=== PATIENT | female | born 1995 | race Caucasian/White ===

== ENCOUNTER 2023-06-06 10:07 | Outpatient (OUT) | payer BC, SELFPAY ==
--- NOTE | 2023-06-06 10:08 | US_ITS ---
[address] [address] Patient Name: BRADY BARON MRN: [id number] date: 1995 Sex: F Assigned Patient Location: US Current Patient Location: Accession/Order Number: [id number] Exam Date: 06/06/2023 10:09 Report Date: 06/08/2023 07:23 At the request of: CRUZ JOHNSON Procedure: US OB anatomy EXAMINATION: US OB anatomy, US OB cervical length HISTORY: Z34.92 SECOND TRIMESTER COMPARISON: No relevant comparison available. TECHNIQUE: Transabdominal sonographic examination was performed for obstetrical and evaluation. FINDINGS: Number: 1 Heart Rate: 131.1 bpm H.B. /min Amniotic Fluid Volume: Subjectively normal position: Breech presentation, longitudinal lie Placental Location: Anterior, placental edge 2.7 cm from the internal os. Grade 0. Cervix Length: 5.2 cm, closed Normal anatomy: Lateral ventricles, cerebellum, posterior fossa, nose, lips, orbits, four-chamber heart, diaphragm, stomach, kidneys, umbilical cord arteries, three-vessel cord, spine, extremities, LVOT Not visualized :RVOT, abdominal cord insertion, bladder BIOMETRY: BPD: 4.9 cm 20 weeks 6 days , 78% HC: 18.3 cm 20 weeks 5 days, 66% AC: 17.0 cm 22 weeks 0 days, 92% FL: 3.3 cm 20 weeks 2 days, 47% EFW:401.7 grams; 14 ounces, 92% FL/AC: 19.4 FL/BPD: 66.9 HC/AC: 1.1 GESTATIONAL AGE: Age by EDC: 20 weeks 1 days Age by current US: 21 weeks 0 days ELIE by current US: 10/17/2023 ELIE by EDC: 10/23/2023 US/US OB anatomy IMPRESSION: Incomplete visualization as detailed above Low lying placenta *Reference: [employer] Practice Guideline for the performance of Obstetric Ultrasound Examinations, August 23, 2007. Electronically authenticated by: MELANIE CERVANTES Date: 06/08/2023 07:23
--- NOTE | 2023-06-06 10:08 | US_ITS ---
[address] [address] Patient Name: BRADY BARON MRN: [id number] date: 1995 Sex: F Assigned Patient Location: US Current Patient Location: Accession/Order Number: [id number] Exam Date: 06/06/2023 10:09 Report Date: 06/08/2023 07:23 At the request of: CRUZ JOHNSON Procedure: US OB cervical length EXAMINATION: US OB anatomy, US OB cervical length HISTORY: Z34.92 SECOND TRIMESTER COMPARISON: No relevant comparison available. TECHNIQUE: Transabdominal sonographic examination was performed for obstetrical and evaluation. FINDINGS: Number: 1 Heart Rate: 131.1 bpm H.B. /min Amniotic Fluid Volume: Subjectively normal position: Breech presentation, longitudinal lie Placental Location: Anterior, placental edge 2.7 cm from the internal os. Grade 0. Cervix Length: 5.2 cm, closed Normal anatomy: Lateral ventricles, cerebellum, posterior fossa, nose, lips, orbits, four-chamber heart, diaphragm, stomach, kidneys, umbilical cord arteries, three-vessel cord, spine, extremities, LVOT Not visualized :RVOT, abdominal cord insertion, bladder BIOMETRY: BPD: 4.9 cm 20 weeks 6 days , 78% HC: 18.3 cm 20 weeks 5 days, 66% AC: 17.0 cm 22 weeks 0 days, 92% FL: 3.3 cm 20 weeks 2 days, 47% EFW:401.7 grams; 14 ounces, 92% FL/AC: 19.4 FL/BPD: 66.9 HC/AC: 1.1 GESTATIONAL AGE: Age by EDC: 20 weeks 1 days Age by current US: 21 weeks 0 days ELIE by current US: 10/17/2023 ELIE by EDC: 10/23/2023 US/US OB cervical length IMPRESSION: Incomplete visualization as detailed above Low lying placenta *Reference: [employer] Practice Guideline for the performance of Obstetric Ultrasound Examinations, August 23, 2007. Electronically authenticated by: MELANIE CERVANTES Date: 06/08/2023 07:23
== END 2023-06-06 10:08 | disposition home or self-care (01) ==
LOC: US 10:07
PROVIDERS: PCP Family Medicine; Visit Provider Obstetrics & Gynecology
DX: Z34.92 Encounter for supervision of normal pregnancy, unspecified, second trimester (principal)
CPT/HCPCS: 76805; 76817

== ENCOUNTER 2023-07-07 07:03 | Outpatient (OUT) | payer BC, SELFPAY ==
[2023-07-07 08:13] LABS: Basophils Absolute Auto 0.1 10^3/uL (0.0-0.1); Basophils Percent Auto 0.5 % (0.2-2.0); Eosinophils Absolute Auto 0.1 10^3/uL (0.0-0.7); Eosinophils Percent Auto 0.8 % (0.9-7.0); Hematocrit 34.5 % (36.0-48.0); Hemoglobin 11.5 g/dL (12.0-16.0); Immature Granulocytes Abs Auto 0.18 10^3/uL (0.00-0.03); Immature Granulocytes Pct Auto 1.4 % (0.0-0.5); Lymphocytes Absolute Auto 1.5 10^3/uL (1.2-3.8); Lymphocytes Percent Auto 12.1 % (20.5-60.0); Mean Corpuscular HGB Conc 33.3 g/dL (29.9-35.2); Mean Corpuscular Hemoglobin 30.9 pg (26.7-34.0); Mean Corpuscular Volume 92.7 fL (81.0-99.0); Monocytes Absolute Auto 0.9 10^3/uL (0.3-0.8); Monocytes Percent Auto 7.4 % (1.7-12.0); Neutrophils Absolute Auto 9.7 10^3/uL (1.4-6.5); Neutrophils Percent Auto 77.8 % (43.0-75.0); Platelet Count 277 10^3/uL (150-450); Red Blood Count 3.72 10^6/uL (4.20-5.40); Red Cell Distribution Width 12.7 % (11.0-15.0); White Blood Count 12.4 10^3/uL (4.0-11.0)
[2023-07-07 08:23] LABS: Glucose 1 Hour 78 mg/dL
== END 2023-07-07 07:04 | disposition home or self-care (01) ==
LOC: LAB 07:05
PROVIDERS: PCP Family Medicine; Visit Provider Physician Assistant
DX: Z34.92 Encounter for supervision of normal pregnancy, unspecified, second trimester (principal)
CPT/HCPCS: 36415; 82950; 85025

== ENCOUNTER 2023-07-11 09:00 | Outpatient (OUT) | payer BC, SELFPAY ==
--- NOTE | 2023-07-11 09:03 | US_ITS ---
The [address] [address] Patient Name: BRADY BARON MRN: [id number] date: 1995 Sex: F Assigned Patient Location: US Current Patient Location: Accession/Order Number: [id number] Exam Date: 07/11/2023 09:06 Report Date: 07/13/2023 15:40 At the request of: CED FRAGOSO Procedure: US OB incomplete anatomy EXAMINATION: US OB incomplete anatomy HISTORY: ENCOUNTER FOR FOLLOW UP ULTRASOUND OF ANATOMY Z36.2 COMPARISON: Ultrasound OB anatomy 06/06/2023 FINDINGS: Presentation: Cephalic Heart rate: 132 bpm Amniotic fluid: Subjectively normal. Anatomy: Abdominal cord insertion and cardiac outflow tracts without appreciable abnormality. GA: 25 weeks 1 day ELIE: 10/23/2023 US/US OB incomplete anatomy IMPRESSION: 1. Single live intrauterine . 2. Adequate visualization of the abdominal cord insertion and cardiac outflow tracts; no appreciable abnormality. Electronically authenticated by: MORE FARLEY Date: 07/13/2023 15:40
== END 2023-07-11 09:01 | disposition home or self-care (01) ==
LOC: US 09:00
PROVIDERS: PCP Family Medicine; Visit Provider Physician Assistant
DX: Z36.2 Encounter for other antenatal screening follow-up (principal)
CPT/HCPCS: 76815

== ENCOUNTER 2023-08-15 09:50 | Outpatient (OUT) | payer BC, SELFPAY ==
--- NOTE | 2023-08-15 | US_ITS ---
[address] [address] Patient Name: BRADY BARON MRN: [id number] date: 1995 Sex: F Assigned Patient Location: US Current Patient Location: Accession/Order Number: [id number] Exam Date: 08/15/2023 10:00 Report Date: 08/16/2023 02:14 At the request of: CRUZ JOHNSON Procedure: US OB growth EXAMINATION: US OB growth HISTORY: size inconsistent with dates O26.849 COMPARISON: Ultrasound OB anatomy 06/06/2023 FINDINGS: Heart Rate: 147 bpm Number: 1 Position: Cephalic Amniotic Fluid Volume: 14.5 cm; normal range Maximum Vertical Pocket: 4.7 cm BIOMETRY: BPD: 7.9 cm; 31 weeks 6 days; 85% HC: 28.5cm; 31 weeks 2 days; 46% AC: 29.3 cm; 33 weeks 2 days; >97% FL: 6.2 cm cm; 31 weeks 6 days; 82% EFW: 1998 g; >97% FL/AC: 20.96 FL/BPD: 77.62 HC/AC: 0.97 GESTATIONAL AGE: Age by EDC: 30 weeks 1 day ELIE by EDC: 10/23/2023 Age by US: 32 weeks 1 day ELIE by US: 10/09/2023 US/US OB growth IMPRESSION: 1. Single live intrauterine with growth detailed above. 2. Estimated weight is greater than 97th percentile. Electronically authenticated by: MORE FARLEY Date: 08/16/2023 02:14
== END 2023-08-15 09:51 | disposition home or self-care (01) ==
LOC: US 09:50
PROVIDERS: PCP Family Medicine; Visit Provider Obstetrics & Gynecology
DX: O26.843 Uterine size-date discrepancy, third trimester (principal); O36.63X0 Maternal care for excessive fetal growth, third trimester, not applicable or unspecified; Z3A.30 30 weeks gestation of pregnancy
CPT/HCPCS: 76816

== ENCOUNTER 2023-09-02 07:07 | Outpatient (OUT) | payer BC, SELFPAY ==
[2023-09-02 16:13] VITALS: BP 144/84; PULSE 109
--- NOTE | 2023-09-02 16:55 | US_ITS ---
[address] [address] Patient Name: BRADY BARON MRN: [id number] date: 1995 Sex: F Assigned Patient Location: US Current Patient Location: US Accession/Order Number: [id number] Exam Date: 09/02/2023 16:56 Report Date: 09/03/2023 15:58 At the request of: CRUZ JOHNSON Procedure: US OB BPP w non-stress EXAMINATION: US OB BPP w non-stress HISTORY: EXCESSIVE GROWTH 036.60X0 COMPARISON: Ultrasound OB growth 08/15/2023 TECHNIQUE: Ultrasound biophysical profile was performed in the radiology department. BREATHING MOVEMENTS: 2 GROSS BODY MOVEMENTS: 2 TONE: 2 QUALITATIVE AMNIOTIC FLUID VOLUME: 2 PRESENTATION: CEPHALIC HEART RATE: 128.6 bpm bpm. AMNIOTIC FLUID VOLUME: 13.8 cm GESTATIONAL AGE: 32 weeks 5 days CONCLUSION: Total biophysical profile score 8. Electronically authenticated by: MORE FARLEY Date: 09/03/2023 15:58
--- NOTE | 2023-09-02 17:16 | PC.NURSE ---
Discharge home in stable condition
== END 2023-09-02 17:17 | disposition home or self-care (01) ==
LOC: US 07:07 → FBC 16:07
PROVIDERS: PCP Family Medicine; Visit Provider Obstetrics & Gynecology
DX: O36.63X0 Maternal care for excessive fetal growth, third trimester, not applicable or unspecified (principal); Z3A.32 32 weeks gestation of pregnancy
CPT/HCPCS: 59025; 76818

== ENCOUNTER 2023-09-05 08:21 | Outpatient (OUT) | payer BC, SELFPAY ==
[2023-09-05 08:35] VITALS: BP 130/71
== END 2023-09-05 09:43 | disposition home or self-care (01) ==
LOC: FBCO 08:23 → FBC 08:34
PROVIDERS: PCP Family Medicine; Visit Provider Obstetrics & Gynecology Gynecology
DX: O36.60X0 Maternal care for excessive fetal growth, unspecified trimester, not applicable or unspecified (principal); Z3A.00 Weeks of gestation of pregnancy not specified
CPT/HCPCS: 59025

== ENCOUNTER 2023-09-09 07:14 | Outpatient (OUT) | payer BC, SELFPAY ==
--- NOTE | 2023-09-09 | US_ITS ---
[address] [address] Patient Name: BRADY BARON MRN: [id number] date: 1995 Sex: F Assigned Patient Location: [facility] Current Patient Location: Accession/Order Number: [id number] Exam Date: 09/09/2023 16:57 Report Date: 09/10/2023 07:13 At the request of: CRUZ JOHNSON Procedure: US OB BPP w non-stress EXAMINATION: US OB BPP w non-stress HISTORY: EXCESSIVE GROWTH O26.849 COMPARISON: No relevant comparison available. TECHNIQUE: Ultrasound biophysical profile was performed in the radiology department. non-reactive stress testing was performed by nursing staff in the birthing center. FINDINGS: BREATHING MOVEMENTS: 2.0 GROSS BODY MOVEMENTS: 2.0 TONE: 2.0 QUALITATIVE AMNIOTIC FLUID VOLUME: 2.0 PRESENTATION: CEPHALIC HEART RATE: 140.6 bpm H.B./min AMNIOTIC FLUID VOLUME: 14.8 cm cm GESTATIONAL AGE: 33 weeks 5 days CONCLUSION: Total biophysical profile score: 8.0 Electronically authenticated by: MELANIE CERVANTES Date: 09/10/2023 07:13
--- NOTE | 2023-09-09 17:47 | US_ITS ---
The [address] [address] Patient Name: BRADY BARON MRN: [id number] date: 1995 Sex: F Assigned Patient Location: [facility] Current Patient Location: [facility] Accession/Order Number: [id number] Exam Date: 09/09/2023 17:50 Report Date: 09/09/2023 19:03 At the request of: CRUZ JOHNSON Procedure: US OB cervical length EXAM: US PELVIS: OB CERVICAL LENGTH HISTORY: 28 year old G1 female with a 33 week 5 day presents for US evaluation of her cervix. TECHNIQUE: Ultrasound performed of the pelvis using static images with francisco scale, M-mode and color doppler. This exam is performed in the emergency room setting to evaluate viability. As such, it is not protocoled to evaluate anatomy as that should be performed on an outpatient basis at the patient's [facility] office. COMPARISON: None. FINDINGS: heart: 122 bpm. Presentation: Cephalic Cervix: Cervical length: 2.0 cm. With funneling During the initial scan the cervix measured 3.4 cm. However, the cervix started 2 frontal and reached a length of only 2 cm with 1.3 cm with funneling. The cervix then returned to 2.3 cm after a few minutes and during Valsalva the cervix measured 2.7 cm. US/US OB cervical length IMPRESSION: Funneling is seen during the exam with a shortened cervix measuring 2 cm. Findings: Spoke with ERICK Neville at 7:02 pm. She states the the OB is also aware Electronically authenticated by: APURVA MARTINEZ Date: 09/09/2023 19:03
--- NOTE | 2023-09-09 18:13 | PC.NURSE ---
cervical length completed, pt. continues to deny abdominal or back pain, or feeling any tightening
== END 2023-09-09 18:24 | disposition home or self-care (01) ==
LOC: US 07:14 → FBC 16:55
PROVIDERS: PCP Family Medicine; Visit Provider Obstetrics & Gynecology
DX: O26.849 Uterine size-date discrepancy, unspecified trimester (principal); Z3A.33 33 weeks gestation of pregnancy
CPT/HCPCS: 76817; 76818

== ENCOUNTER 2023-09-10 08:30 | Outpatient (OUT) | payer BC, SELFPAY ==
[2023-09-10 11:07] VITALS: BP 125/77; PULSE 83
[2023-09-10] MEDS: BETAMETHASONE ACE/BETAMETHASONE SOD PHOS 30 MG/5 ML 12 MG IM (11:29)
== END 2023-09-10 11:30 | disposition home or self-care (01) ==
LOC: FBCO 08:30 → FBC 11:01
PROVIDERS: PCP Family Medicine; Visit Provider Obstetrics & Gynecology
DX: O36.63X1 Maternal care for excessive fetal growth, third trimester, fetus 1 (principal); O26.843 Uterine size-date discrepancy, third trimester
CPT/HCPCS: 59025; J0702

== ENCOUNTER 2023-09-11 08:00 | Outpatient (OUT) | payer BC, SELFPAY ==
[2023-09-11] MEDS: BETAMETHASONE ACE/BETAMETHASONE SOD PHOS 30 MG/5 ML 12 MG IM (11:44)
== END 2023-09-11 12:00 | disposition home or self-care (01) ==
LOC: FBCO 08:00 → FBC 11:33
PROVIDERS: PCP Family Medicine; Visit Provider Obstetrics & Gynecology
DX: O36.63X1 Maternal care for excessive fetal growth, third trimester, fetus 1 (principal); O26.843 Uterine size-date discrepancy, third trimester
CPT/HCPCS: J0702

== ENCOUNTER 2023-09-12 01:42 | Outpatient (OUT) | payer BC, SELFPAY ==
[2023-09-12 08:11] VITALS: BP 139/79; PULSE 94
== END 2023-09-12 08:37 | disposition home or self-care (01) ==
LOC: FBCO 01:43 → FBC 08:06
PROVIDERS: PCP Family Medicine; Visit Provider Obstetrics & Gynecology
DX: O36.63X0 Maternal care for excessive fetal growth, third trimester, not applicable or unspecified (principal); Z3A.00 Weeks of gestation of pregnancy not specified; O26.843 Uterine size-date discrepancy, third trimester
CPT/HCPCS: 59025

== ENCOUNTER 2023-09-16 07:38 | Outpatient (OUT) | payer BC, SELFPAY ==
--- NOTE | 2023-09-16 | US_ITS ---
[address] [address] Patient Name: BRADY BARON MRN: [id number] date: 1995 Sex: F Assigned Patient Location: [facility] Current Patient Location: Accession/Order Number: [id number] Exam Date: 09/16/2023 17:00 Report Date: 09/17/2023 22:07 At the request of: CRUZ JOHNSON Procedure: US OB BPP w non-stress EXAMINATION: US OB BPP w non-stress HISTORY: EXCESSIVE GROWTH O36.60X0 COMPARISON: Ultrasound OB biophysical 09/09/2023 TECHNIQUE: Ultrasound biophysical profile was performed in the radiology department. BREATHING MOVEMENTS: 2.0 GROSS BODY MOVEMENTS: 2.0 TONE: 2.0 QUALITATIVE AMNIOTIC FLUID VOLUME: 2.0 PRESENTATION: CEPHALIC HEART RATE: 165.6 bpm bpm. AMNIOTIC FLUID VOLUME: 10.9 cm GESTATIONAL AGE: 34 weeks 5 days CONCLUSION: Total biophysical profile score 8.0. Electronically authenticated by: MORE FARLEY Date: 09/17/2023 22:07
--- NOTE | 2023-09-16 | US_ITS ---
[address] [address] Patient Name: BRADY BARON MRN: [id number] date: 1995 Sex: F Assigned Patient Location: [facility] Current Patient Location: Accession/Order Number: [id number] Exam Date: 09/16/2023 17:00 Report Date: 09/17/2023 15:28 At the request of: CRUZ JOHNSON Procedure: US OB growth EXAMINATION: US OB growth HISTORY: EXCESSIVE GROWTH COMPARISON: ULTRASOUND OB GROWTH 08/15/2023 FINDINGS: Heart Rate: 165.6 bpm Number: 1.0 Position: CEPHALIC Amniotic Fluid Volume: 10.9 cm Maximum Vertical Pocket: 4.0 cm BIOMETRY: BPD: 8.9 cm cm; 35 weeks 6 days; 81% HC: 31.8 cmcm; 35 weeks 5 days ; 40% AC: 33.5 cm cm; 37 weeks 3 days; >97% FL: 6.7 cm cm; 34 weeks 4 days; 38% EFW: 2913.9 grams; 88% FL/AC: 20.1 FL/BPD: 75.9 HC/AC: 0.9 GESTATIONAL AGE: Age by EDC: 34 weeks 5 days ELIE by EDC: 10/23/2023 Age by US: 35 weeks 6 days ELIE by US: 10/15/2023 US/US OB growth IMPRESSION: 1. Single live intrauterine with growth detailed above. 2. Abdominal circumference is greater than 97th percentile. Electronically authenticated by: MORE FARLEY Date: 09/17/2023 15:28
[2023-09-16 17:37] VITALS: BP 125/72; PULSE 94
== END 2023-09-16 18:01 | disposition home or self-care (01) ==
LOC: US 07:38 → FBC 16:58
PROVIDERS: PCP Family Medicine; Visit Provider Obstetrics & Gynecology
DX: O26.843 Uterine size-date discrepancy, third trimester (principal); O36.63X0 Maternal care for excessive fetal growth, third trimester, not applicable or unspecified; Z3A.34 34 weeks gestation of pregnancy
CPT/HCPCS: 76816; 76818

== ENCOUNTER 2023-09-19 08:05 | Outpatient (OUT) | payer BC, SELFPAY ==
[2023-09-19 08:19] VITALS: BP 135/62; PULSE 104
== END 2023-09-19 08:50 | disposition home or self-care (01) ==
LOC: FBCO 08:14 → FBC 08:15
PROVIDERS: PCP Family Medicine; Visit Provider Obstetrics & Gynecology
DX: O36.63X0 Maternal care for excessive fetal growth, third trimester, not applicable or unspecified (principal); O26.843 Uterine size-date discrepancy, third trimester; Z3A.00 Weeks of gestation of pregnancy not specified
CPT/HCPCS: 59025

== ENCOUNTER 2023-09-23 08:12 | Outpatient (OUT) | payer BC, SELFPAY ==
--- NOTE | 2023-09-23 17:00 | US_ITS ---
[address] [address] Patient Name: BRADY BARON MRN: [id number] date: 1995 Sex: F Assigned Patient Location: Current Patient Location: [facility] Accession/Order Number: [id number] Exam Date: 09/23/2023 17:00 Report Date: 09/24/2023 17:37 At the request of: CRUZ JOHNSON Procedure: US OB BPP w non-stress EXAMINATION: US OB BPP w non-stress HISTORY: EXCESSIVE GROWTH O26.849 COMPARISON: No relevant comparison available. TECHNIQUE: Ultrasound biophysical profile was performed in the radiology department. FINDINGS: BREATHING MOVEMENTS: 2.0 GROSS BODY MOVEMENTS: 2.0 TONE: 2.0 QUALITATIVE AMNIOTIC FLUID VOLUME: 2.0 PRESENTATION: CEPHALIC HEART RATE: 154.3 bpm H.B./min AMNIOTIC FLUID VOLUME: 8.8 cm cm GESTATIONAL AGE: 35 weeks 5 days CONCLUSION: Total biophysical profile score: 8.0 Electronically authenticated by: MELANIE CERVANTES Date: 09/24/2023 17:37
[2023-09-23 17:34] VITALS: BP 140/83; PULSE 115
--- NOTE | 2023-09-23 18:27 | PC.NURSE ---
1755: Dr Meraz notified of 8.8 DEDRICK and patient instructed to push oral fluids and have repeat DEDRICK 09/24/23
== END 2023-09-23 18:00 | disposition home or self-care (01) ==
LOC: US 08:13 → FBC 17:01
PROVIDERS: PCP Family Medicine; Visit Provider Obstetrics & Gynecology
DX: O36.63X1 Maternal care for excessive fetal growth, third trimester, fetus 1 (principal); O26.843 Uterine size-date discrepancy, third trimester; Z3A.35 35 weeks gestation of pregnancy
CPT/HCPCS: 76818

== ENCOUNTER 2023-09-24 16:00 | Outpatient (OUT) | payer BC, SELFPAY ==
--- NOTE | 2023-09-24 16:17 | US_ITS ---
[address] [address] Patient Name: BRADY BARON MRN: [id number] date: 1995 Sex: F Assigned Patient Location: [facility] Current Patient Location: Accession/Order Number: [id number] Exam Date: 09/24/2023 16:20 Report Date: 09/24/2023 17:42 At the request of: CRUZ JOHNSON Procedure: US OB BPP w non-stress EXAMINATION: US OB BPP w non-stress HISTORY: LGA COMPARISON: No relevant comparison available. TECHNIQUE: Ultrasound biophysical profile was performed in the radiology department. FINDINGS: BREATHING MOVEMENTS: 2.0 GROSS BODY MOVEMENTS: 2.0 TONE: 2.0 QUALITATIVE AMNIOTIC FLUID VOLUME: 2.0 PRESENTATION: CEPHALIC HEART RATE: 134.3 bpm H.B./min AMNIOTIC FLUID VOLUME: 8.0 cm cm GESTATIONAL AGE: 35 weeks 6 days CONCLUSION: Total biophysical profile score: 8.0 Electronically authenticated by: MELANIE CERVANTES Date: 09/24/2023 17:42
[2023-09-24 16:52] VITALS: BP 138/92; PULSE 113
[2023-09-24 17:14] VITALS: BP 134/89; PULSE 110
== END 2023-09-24 16:50 ==
LOC: FBC 16:16 → FBCO 09-25 10:15
PROVIDERS: PCP Family Medicine; Visit Provider Obstetrics & Gynecology
DX: O36.63X0 Maternal care for excessive fetal growth, third trimester, not applicable or unspecified (principal); Z3A.35 35 weeks gestation of pregnancy
CPT/HCPCS: 76818

== ENCOUNTER 2023-09-26 08:00 | Outpatient (OUT) | payer BC, SELFPAY ==
[2023-09-26 08:13] VITALS: BP 137/86; PULSE 103
== END 2023-09-26 08:34 | disposition home or self-care (01) ==
LOC: FBCO 08:05 → FBC 08:09
PROVIDERS: PCP Family Medicine; Visit Provider Obstetrics & Gynecology
DX: O36.63X0 Maternal care for excessive fetal growth, third trimester, not applicable or unspecified (principal); O26.843 Uterine size-date discrepancy, third trimester; Z3A.00 Weeks of gestation of pregnancy not specified
CPT/HCPCS: 59025

== ENCOUNTER 2023-09-28 07:45 | Outpatient (OUT) | payer BC, SELFPAY ==
[2023-09-28 11:21] VITALS: BP 146/82; PULSE 114
--- NOTE | 2023-09-28 11:31 | US_ITS ---
[address] [address] Patient Name: BRADY BARON MRN: [id number] date: 1995 Sex: F Assigned Patient Location: [facility] Current Patient Location: [facility] Accession/Order Number: [id number] Exam Date: 09/28/2023 11:35 Report Date: 09/28/2023 17:12 At the request of: CRUZ JOHNSON Procedure: US OB BPP w non-stress EXAMINATION: US OB BPP w non-stress HISTORY: Low fluid COMPARISON: No relevant comparison available. TECHNIQUE: Ultrasound biophysical profile was performed in the radiology department. FINDINGS: BREATHING MOVEMENTS: 2.0 GROSS BODY MOVEMENTS: 2.0 TONE: 2.0 QUALITATIVE AMNIOTIC FLUID VOLUME: 2.0 PRESENTATION: CEPHALIC HEART RATE: 144.4 bpm H.B./min AMNIOTIC FLUID VOLUME: 10.3 cm cm GESTATIONAL AGE: 36 weeks 3 days CONCLUSION: Total biophysical profile score: 8.0 Electronically authenticated by: MELANIE CERVANTES Date: 09/28/2023 17:12
== END 2023-09-28 12:10 | disposition home or self-care (01) ==
LOC: FBCO 07:45 → FBC 11:01
PROVIDERS: PCP Family Medicine; Visit Provider Obstetrics & Gynecology
DX: O36.63X1 Maternal care for excessive fetal growth, third trimester, fetus 1 (principal); O26.843 Uterine size-date discrepancy, third trimester; Z3A.36 36 weeks gestation of pregnancy
CPT/HCPCS: 76818

== ENCOUNTER 2023-09-29 19:06 | Outpatient (REF) | payer BC, SELFPAY | END 2023-09-29 19:07 | disposition home or self-care (01) | LOC: LAB 19:06 | PROVIDERS: PCP Family Medicine; Visit Provider Obstetrics & Gynecology | DX: Z34.93 Encounter for supervision of normal pregnancy, unspecified, third trimester (principal) | CPT/HCPCS: 87081 ==

== ENCOUNTER 2023-09-30 08:32 | Outpatient (OUT) | payer BC, SELFPAY ==
--- NOTE | 2023-09-30 | US_ITS ---
[address] [address] Patient Name: BRADY BARON MRN: [id number] date: 1995 Sex: F Assigned Patient Location: [facility] [place] [facility]/Order Number: [id number] Exam Date: 09/30/2023 17:00 Report Date: 10/01/2023 22:34 At the request of: CRUZ JOHNSON Procedure: US OB BPP w non-stress EXAMINATION: US OB BPP w non-stress HISTORY: SIZE INCONSISTENT WITH DATES COMPARISON: Ultrasound OB biophysical 09/28/2023 TECHNIQUE: Ultrasound biophysical profile was performed in the radiology department. BREATHING MOVEMENTS: 2.0 GROSS BODY MOVEMENTS: 2.0 TONE: 2.0 QUALITATIVE AMNIOTIC FLUID VOLUME: 2.0 PRESENTATION: CEPHALIC HEART RATE: 127.4 bpm bpm. AMNIOTIC FLUID VOLUME: 15.2 cm GESTATIONAL AGE: 36 weeks 5 days CONCLUSION: Total biophysical profile score 8.0. Electronically authenticated by: MORE FARLEY Date: 10/01/2023 22:34
[2023-09-30 17:33] VITALS: BP 138/84; PULSE 96
== END 2023-09-30 18:05 | disposition home or self-care (01) ==
LOC: US 08:32 → FBC 17:02
PROVIDERS: PCP Family Medicine; Visit Provider Obstetrics & Gynecology
DX: O36.63X1 Maternal care for excessive fetal growth, third trimester, fetus 1 (principal); O26.843 Uterine size-date discrepancy, third trimester; Z3A.36 36 weeks gestation of pregnancy
CPT/HCPCS: 76818

== ENCOUNTER 2023-10-03 08:16 | Outpatient (OUT) | payer BC, SELFPAY ==
[2023-10-03 08:22] VITALS: BP 155/83; PULSE 89
[2023-10-03 08:34] VITALS: BP 135/82; PULSE 88
--- NOTE | 2023-10-03 10:18 | PC.NURSE ---
reactive tracing with bl fhr 140 with mod variability and accels present, ctxs continue irregularly, discussed bp with patient and reviewed signs and symptoms of pre eclampsia
== END 2023-10-03 08:53 | disposition home or self-care (01) ==
LOC: FBCO 08:16 → FBC 08:17
PROVIDERS: PCP Family Medicine; Visit Provider Obstetrics & Gynecology
DX: O36.63X1 Maternal care for excessive fetal growth, third trimester, fetus 1 (principal); O26.843 Uterine size-date discrepancy, third trimester
CPT/HCPCS: 59025

== ENCOUNTER 2023-10-07 18:36 | Inpatient (IN) | payer BC, SELFPAY ==
[2023-10-07] VITALS (11 sets, daily range): BP systolic 133–149; BP diastolic 72–90; PULSE 90–126; RESP 18; TEMP 36.1–36.5
--- NOTE | 2023-10-07 | US_ITS ---
[address] [address] Patient Name: BRADY BARON MRN: [id number] date: 1995 Sex: F Assigned Patient Location: [facility] Current Patient Location: [facility] Accession/Order Number: [id number] Exam Date: 10/07/2023 17:00 Report Date: 10/08/2023 07:15 At the request of: CRUZ JOHNSON Procedure: US OB BPP w non-stress EXAMINATION: US OB BPP w non-stress HISTORY: EXCESSIVE GROWTH O36.60X0 COMPARISON: No relevant comparison available. TECHNIQUE: Ultrasound biophysical profile was performed in the radiology department. non-reactive stress testing was performed by nursing staff in the birthing center. FINDINGS: BREATHING MOVEMENTS: 2.0 GROSS BODY MOVEMENTS: 2.0 TONE: 2.0 QUALITATIVE AMNIOTIC FLUID VOLUME: 2.0 PRESENTATION: CEPHALIC HEART RATE: 139.2 bpm H.B./min AMNIOTIC FLUID VOLUME: 14.7 cm cm GESTATIONAL AGE: 37 weeks 5 days CONCLUSION: Total biophysical profile score: 8.0 Electronically authenticated by: MELANIE CERVANTES Date: 10/08/2023 07:15
--- NOTE | 2023-10-07 18:50 | PC.NURSE ---
1735: Dr Meraz paged 1742: BP's reported, patient denies headache, blurred vision and epigastric pain. Orders received for admission and IOL tonight. Patient informed and transferred to room 256 at 1810. Plan of care discussed and questions answered. Talking with about plan of care. 1845: resting in bed and waiting on . 1904: Report to Jermain SUAREZ, Renzo SUAREZ, Ata Montilla RN.1914: Care relinquished
[2023-10-07 20:33] LABS: Amphetamine Screen Urine NEGATIVE (NEGATIVE); Barbiturates Screen Urine NEGATIVE (NEGATIVE); Benzodiazepines Screen Urine NEGATIVE (NEGATIVE); Buprenorphine Screen Urine NEGATIVE (NEGATIVE); Cannabinoid Screen Urine NEGATIVE (NEGATIVE); Cocaine Screen Urine NEGATIVE (NEGATIVE); Methadone Screen Urine NEGATIVE (NEGATIVE); Methamphetamines Screen Urine NEGATIVE (NEGATIVE); Opiate Screen Urine NEGATIVE (NEGATIVE); Oxycodone Screen Urine NEGATIVE (NEGATIVE); Phencyclidine Screen Urine NEGATIVE (NEGATIVE); Tricyclic Antidepressant Urine NEGATIVE (NEGATIVE)
[2023-10-07] MEDS: 0.9 % SODIUM CHLORIDE 1,000 ML 125 ML IV (23:17)
[2023-10-07] MEDS: OXYTOCIN/0.9 % SODIUM CHLORIDE 10 UNITS/500 ML PLAST..BAG 6 UNIT IV (23:18)
[2023-10-07 23:22] LABS: Hematocrit 33.2 % (36.0-48.0); Hemoglobin 10.9 g/dL (12.0-16.0); Mean Corpuscular HGB Conc 32.8 g/dL (29.9-35.2); Mean Corpuscular Hemoglobin 29.2 pg (26.7-34.0); Mean Platelet Volume 9.8 fL (9.5-13.5); Platelet Count 283 10^3/uL (150-450); Red Blood Count 3.73 10^6/uL (4.20-5.40); Red Cell Distribution Width 13.3 % (11.0-15.0); White Blood Count 11.2 10^3/uL (4.0-11.0)
[2023-10-08] VITALS (57 sets, daily range): BP systolic 109–162; BP diastolic 56–91; PULSE 68–100; RESP 16–18; TEMP 36–37.3
[2023-10-08] MEDS: 0.9 % SODIUM CHLORIDE 1,000 ML 125 ML IV (06:55)
[2023-10-08] MEDS: LIDOCAINE HCL 1% 200 MG/20 ML MDV INJ (10:23)
[2023-10-08] MEDS: OXYTOCIN/0.9 % SODIUM CHLORIDE 20 UNITS/1,000 ML PLAST..BAG 125 UNIT IV (10:30)
--- NOTE | 2023-10-08 10:50 | PM.OBPRCVD ---
Procedure Induction method: per pitocin protocol Delivery augmentation: rupture of membranes and pitocin Delivery monitor: external FHT and external uterine Route of delivery: Episiotomy Description: midline Laceration description: perineal - 2nd degree Delivery repair: Vicryl Estimated blood loss (mL): 250 Anesthesia type: None Disposition: floor Delivery date: 10/08/23 Gender: male presentation: vertex Placental delivery description: Spontaneous cord description: 3 Vessels
[2023-10-08] MEDS: BENZOCAINE/MENTHOL 85 GRAM SPRAY BOTTLE 1 APPLIC TOPICAL (12:56)
[2023-10-08] MEDS: GLYCERIN/WITCH HAZEL PADS 1 PAD TOPICAL (12:56)
[2023-10-08] MEDS: IBUPROFEN 600 MG TABLET PO ×2 (14:05→20:02)
[2023-10-08] MEDS: ACETAMINOPHEN 325 MG TABLET 650 MG PO (22:36)
[2023-10-09 01:10] VITALS: RESP 16
[2023-10-09 01:11] VITALS: BP 132/80; PULSE 84
[2023-10-09] MEDS: IBUPROFEN 600 MG TABLET PO ×3 (02:03→15:56)
[2023-10-09 05:55] LABS: Basophils Percent Auto 0.3 % (0.2-2.0); Eosinophils Absolute Auto 0.1 10^3/uL (0.0-0.7); Eosinophils Percent Auto 0.7 % (0.9-7.0); Hematocrit 26.8 % (36.0-48.0); Hemoglobin 8.8 g/dL (12.0-16.0); Immature Granulocytes Abs Auto 0.14 10^3/uL (0.00-0.03); Immature Granulocytes Pct Auto 1.1 % (0.0-0.5); Lymphocytes Absolute Auto 1.9 10^3/uL (1.2-3.8); Lymphocytes Percent Auto 14.3 % (20.5-60.0); Mean Corpuscular HGB Conc 32.8 g/dL (29.9-35.2); Mean Corpuscular Hemoglobin 29.1 pg (26.7-34.0); Mean Corpuscular Volume 88.7 fL (81.0-99.0); Mean Platelet Volume 9.7 fL (9.5-13.5); Monocytes Absolute Auto 0.9 10^3/uL (0.3-0.8); Monocytes Percent Auto 7.2 % (1.7-12.0); Neutrophils Percent Auto 76.4 % (43.0-75.0); Platelet Count 211 10^3/uL (150-450); Red Blood Count 3.02 10^6/uL (4.20-5.40); Red Cell Distribution Width 13.9 % (11.0-15.0); White Blood Count 13.1 10^3/uL (4.0-11.0)
--- NOTE | 2023-10-09 07:28 | W.PC.ACHO ---
Registration Status: ADM IN Primary Language: Guyanese Preferred Language: Guyanese Active Medications Generic Name Dose Route Start Last Admin Trade Name Sarita PRN Reason Stop Dose Admin Acetaminophen 650 mg 10/08/23 10:47 10/08/23 22:36 Acetaminophen 325 Mg Tablet PO 650 mg Q6H PRN Administration Mild Pain Al Hydroxide/Mg Hydroxide 2,400 mg 10/08/23 10:47 Magnesium Hydroxide 2,400 Mg/10 Ml Oral.Susp PO Q6H PRN Dyspepsia Benzocaine/Menthol 1 applic 10/08/23 10:47 10/08/23 12:56 Benzocaine/Menthol 85 Gram [place] Bottle TOPICAL 1 applic Q2H PRN Administration Pain Carboprost Tromethamine 250 mcg 10/07/23 18:37 Carboprost Tromethamine 250 Mcg/Ml 1 Ml Vial IM 10/09/23 11:00 Q15M PRN Bleeding Diphtheria/Pertussis/Tetanus Vacc 0.5 ml 10/10/23 09:00 Adacel Diph,Pertuss(Acell),Tet Vac/Pf 0.5 Ml Adult Syringe IM 10/10/23 09:01 .ONCE ONE Docusate Sodium 100 mg 10/09/23 09:00 Docusate Sodium 100 Mg Capsule PO BID HAYDEN Sodium Chloride 1,000 mls @ 125 mls/hr 10/07/23 18:45 10/08/23 06:55 Sodium Chloride 0.9% 1,000 Ml IV 125 mls/hr .Q8H HAYDEN Administration Ibuprofen 600 mg 10/08/23 10:47 10/09/23 02:03 Ibuprofen 600 Mg Tablet PO 600 mg Q6H PRN Administration Moderate Pain Measles/Mumps/Rubella Vaccine Live 0.5 ml 10/10/23 09:00 Measles,Mumps,Rubella Vacc/Pf 0.5 Ml Vial SQ 10/10/23 09:01 .ONCE ONE Methylergonovine Maleate 0.2 mg 10/07/23 18:37 Methylergonovine Maleate 0.2 Mg/Ml Ampule IM 10/09/23 11:00 ONCE PRN Uterine Contractility/Contract Methylergonovine Maleate 0.2 mg 10/07/23 18:37 Methylergonovine Maleate 0.2 Mg Tablet PO 10/09/23 11:00 Q4H PRN Uterine Contractility/Contract Misoprostol 600 mcg 10/07/23 18:37 Misoprostol 100 Mcg Tablet PO 10/09/23 11:00 ONCE PRN Uterine Bleeding Misoprostol 800 mcg 10/07/23 18:37 Misoprostol 100 Mcg Tablet SL 10/09/23 11:00 ONCE PRN Uterine Bleeding Misoprostol 1,000 mcg 10/07/23 18:37 Misoprostol 100 Mcg Tablet TN 10/09/23 11:00 ONCE PRN Uterine Bleeding Ondansetron HCl 4 mg 10/07/23 18:43 Ondansetron Pf 4 Mg/2 Ml Vial IV Q6H PRN Nausea And Vomiting Senna 17.2 mg 10/08/23 20:00 Sennosides 8.6 Mg Tablet PO QHS PRN Constipation Simethicone 80 mg 10/08/23 10:47 Simethicone 80 Mg Tab.Chew PO QID PRN Abdominal Distention Temazepam 15 mg 10/08/23 10:47 Temazepam 15 Mg Capsule PO QHS PRN Sleep Witch Leslie/Glycerin 1 pad 10/08/23 10:47 10/08/23 12:56 Glycerin/Witch Leslie Pads TOPICAL 1 pad Q2H PRN Administration Pain Diet Category Date Time Status Regular Consistency Diet Diet 10/08/23 10:48 Active Respiratory Oxygen Delivery Method Room Air Oxygen Delivery Method Room Air Oxygen Delivery Method Room Air Cardiology Heart Sounds Strong,Regular Heart Sounds Strong,Regular Heart Sounds Strong Bowels Bowel Pattern No Bowel Movement Bowel Pattern No Bowel Movement Renal Bladder Pattern Continent Bladder Pattern Continent Bladder Pattern Continent
--- NOTE | 2023-10-09 07:44 | PM.OBPN ---
OB - PN: Subj Subjective Patient comments: no complaints and pain well controlled [place] status: doing well Exam Constitutional Vital Signs, click to edit/add: Last Vital Signs Temp 98.7 F 10/08/23 20:01 Pulse 84 10/09/23 01:11 Resp 16 10/09/23 01:10 BP 132/80 10/09/23 01:11 O2 Del Method Room Air 10/09/23 01:10 Documenting provider has reviewed patient's vital signs: yes Common normals: no apparent distress Respiratory Common normals: normal respiratory effort and clear to auscultation bilaterally Cardio Common normals: regular rate and regular rhythm GI Common normals: Normal to inspection, nondistended, normoactive bowel sounds present Extremity Common normals: no calf tenderness Results Labs Labs: Short CBC 10/09/23 Range/Units 05:45 WBC 13.1 H (4.0-11.0) 10^3/uL Hgb 8.8 L (12.0-16.0) g/dL Hct 26.8 L (36.0-48.0) % Plt Count 211 (150-450) 10^3/uL OB - PN: A/P Plan - Vaginal Delivery day: 1 Plan: routine care Time Spent with Patient Time: Total time spent is greater than 50% in coordination of care (as documented) at patient's floor/unit and/or counseling patient: Total time spent with greater than 50% in coordination of care (as documented) at patient's floor/unit and/or counseling patient: less than 15 minutes
[2023-10-09] MEDS: DOCUSATE SODIUM 100 MG CAPSULE PO (08:33)
[2023-10-09 09:51] VITALS: TEMP 35.9
[2023-10-09 09:52] VITALS: BP 141/63; PULSE 93
[2023-10-09 16:38] VITALS: BP 122/74; PULSE 81
--- OUTSIDE RECORDS SUMMARY | 2023-11-10 19:54 | XMS_ITS | CCD ---
Author Name Unknown Address [address] [place] [address] Organization [facility] Care Team Providers Care An/Syq 13 Nav/C2 Operator Name Role Phone Price Girard Unavailable Unavailable Unavailable Essence Blevins Unavailable Unavailable MD Amanda Rosario Attending Provider [phone] MD Sarah Nevarez Referring Provider MD Mike Wagner Primary Care Provider MD Amanda Rosario Attending Provider [phone] MD Sarah Nevarez Referring Provider [phone] MD Mike Wagner Primary Care Provider [phone] ELIZAB[address] ., DR ARROYO Admitting Unavailable ELIZABETH ., DR ARROYO Consulting Unavailable NADERER, DR MIKE Bolaños Primary Care Unavailable ELIZABETH ., DR ARROYO Attending Unavailable ELIZABETH ., DR ARROYO Consulting Unavailable ELIZABETH ., DR ARROYO Attending Unavailable NADERER, DR MIKE Bolaños Primary Care Unavailable ELIZABETH ., DR ARROYO Admitting Unavailable ZIEBER, DR MORE Rodarte Consulting Unavailable REQUEST, DR SWENSON LISTED Consulting Unavaila ble DREW, DR AMANDA Arroyo Admitting Unavailable NADERECayden, DR MIKE Bolaños Primary Care Unavailable DREW, DR AMANDA Arroyo Attending Unavailable NADSHMUEL, DR MIKE Bolaños Primary Care Unavailable NADERER, DR MIKE Bolaños Consulting Unavailable NADERER, DR MIKE Bolaños Attending Unavailable NADERER, DR IMKE Bolaños Admitting Unavailable ELIZABETH ., DR ARROYO Attending Unavailable ELIZABETH ., DR ARROYO Admitting Unavailable ELIZABETH ., DR ARROYO Consulting Unavailable NADERER, DR MIKE Bolaños Primary Care Unavailable ELIZABETH ., DR ARROYO Consulting Unavailable ELIZABETH ., DR ARROYO Attending Unavailable NADERER, DR MIKE Bolaños Primary Care Unavailable ELIZABETH ., DR ARROYO Admitting Unavailable ELIZABETH ., DR ARROYO Consulting Unavailable ELIZABETH ., DR ARROYO Attending Unavailable ELIZABETH ., DR ARROYO Admitting Unavailable NADERER, DR MIKE Bolaños Primary Care Unavailable ELIZABETH ., DR ARROYO Consulting Unavailable ELIZABETH ., DR ARROYO Attending Unavailable NADERER, DR MIKE Bolaños Primary Care Unavailable ELIZABETH ., DR ARROYO Admitting Unavailable ELIZABETH ., DR ARRYOO Consulting Unavailable ELIZABETH ., DR ARROYO Attending Unavailable NADERER, DR MIKE Bolaños Primary Care Unavailable ELIZABETH ., DR ARROYO Admitting Unavailable ELIZABETH ., DR ARROYO Consulting Unavailable NADERER, DR MIKE Bolaños Primary Care Unavailable ELIZABETH ., DR ARROYO Attending Unavailable ELIZABETH ., DR ARROYO Admitting Unavailable MD Amanda Rosario Attending Provider MD Sarah Nevarez Referring Provider MD Mike Wagner Primary Care Provider Sarah Nevarez Referring Unavailable Amanda Rosario Attending Unavailable Amanda Rosario Admitting Unavailable Mike Wagner Primary Care Unavailable CRUZ JOHNSON Attending Unavailable Allergies Allergy Classification Reported Allergen(s) Allergy Type Date of Onset Reaction(s) Facility (1 source) No Alert Propensity to adverse reactions to drug 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 Medications Current Medications Medication Drug Class(es) Dates Sig (Normalized) Sig (Original) ALPRAZolam 0.25 mg oral tablet (4 sources) Benzodiazepine Start: 06-18-2021 take 1 tablet by mouth once daily Alprazolam (Xanax) 0.25 mg Tablet Active 0.25 MG PO Daily June 18, 2021 12:00am Magnesium (1 source) Start: 08-19-2023 take 400 mg by mouth once daily Magnesium Active 400 MG PO Daily August 19, 2023 12:00am Igb-Aqay-Au-Harriet 3-Fat Com #1 (Pre-Jeanette Multivitamins/[place] als) 27-1-300 mg Capsule (3 sources) Start: 01-21-2023 Viw-Degh-Zs-Harriet 3-Fat Com #1 (Pre-Jeanette Multivitamins/[place]) 27-1-300 mg Capsule Active CAP PO January 21, 2023 1:00am Start: 01-21-2023 For-Raip-Ga-Om ega 3-Fat Com #1 (Pre-Jeanette Multivitamins/Minerals) 27-1-300 mg Capsule Active CAP PO January 21, 2023 12:00am Completed/Discontinued Medications Medication Drug Class(es) Dates Sig (Normalized) Sig (Original) ciprofloxacin 500 mg oral tablet (4 sources) Quinolone Antimicrobial Start: 07-23-2021 End: 10-03-2021 take 1 tablet by mouth twice daily Ciprofloxacin Hcl (Cipro) 500 mg Tablet Discontinued 500 MG PO Twice daily July 23, 2021 12:00am October 03, 2021 9:30am famotidine 20 mg oral tablet (4 sources) Histamine-2 Receptor Antagonist Start: 06-18-2021 End: 06-24-2021 take 20 mg by mouth once daily at bedtime Famotidine Discontinued 20 MG PO Daily at bedtime June 18, 2021 12:00am June 24, 2021 2:04pm Multivitamin (Multiple Vitamin) Tablet (4 sources) Start: 06-18-2021 End: 01-21-2023 take 1 tablet by mouth once daily Multivitamin (Multiple Vitamin) Tablet Discontinued 1 TAB PO Daily June 18, 2021 12:00am January 21, 2023 3:56pm Start: 06-18-2021 End: 01-21-2023 take 1 tablet by mouth once daily Multivitamin (Multiple Vitamin) Tablet Discontinued 1 TAB PO Daily June 17, 2021 11:00pm January 21, 2023 2:56pm Start: 06-18-2021 take 1 tablet by luther th once daily Multivitamin (Multiple Vitamin) Tablet Active 1 TAB PO Daily June 18, 2021 12:00am omeprazole 40 mg delayed release oral capsule (4 sources) Proton Pump Inhibitor Start: 06-18-2021 End: 06-24-2021 take 40 mg by mouth once daily Omeprazole Discontinued 40 MG PO Daily June 18, 2021 12:00am June 24, 2021 2:04pm sulfamethoxazole 800 mg / trimethoprim 160 mg oral tablet (5 sources) Dihydrofolate Reductase Inhibitor Antibacterial, Sulfonamide Antimicrobial Start: 06-13-2021 take 1 tablet by mouth twice daily Sulfamethoxazole- Trimethoprim 800-160 MG Oral Tablet Take 1 tablet twice daily Quantity: 14 Refills: 0 Ordered: 13-Jun-2021 Oscar Worthington MPH Start : 13-Jun-2021 Active Problems Active Problems Problem Classification Problem Date Documented Date Episodic/Chronic Administrative/social admission (4 sources) Problems related to multiparity; Translations: [PROBLEMS RELATED TO MULTIPARITY] Onset: 01-30-2023 Episodic Deficiency and other anemia (4 sources) Iron deficiency anemia; Translations: [Iron deficiency anemia, unspecified] 04-03-2022 Episodic Deficiency and other anemia (3 sources) Iron deficiency anemia, unspecified; Translations: [Iron deficiency anemia, unspecified] 07-08-2022 Episodic Immunizations and screening for infectious disease (2 sources) Encounter for screening for human papillomavirus (HPV); Translations: [Encounter for screening for infections with a predominantly sexual mode of transmission] Onset: 06-17-2022 Episodic Maintenance chemotherapy; radiotherapy (7 sources) Patient encounter status; Translations: [Encounter for antineoplastic immunotherapy] 07-19-2021 Chronic Melanomas of skin (11 sources) Malignant melanoma of lower leg; Translations: [Malignant melanoma of skin of lower limb, including hip] 07-19-2021 Chronic Menstrual disorders (7 sources) Irregular menstruation, unspecified; Translations: [Amenorrhea, unspecified] Onset: 02-27-2023 Chronic Other nervous system disorders (4 sources) Chiari malformation type I; Translations: [Compression of brain] 07-19-2021 Chronic Other nervous system disorders (3 sources) Compression of brain; 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 Other and delivery including normal (2 sources) Encounter for supervision of normal , unspecified, first trimester; Translations: [Second trimester ] Onset: 03-25-2023 05-23-2023 Episodic Other screening for suspected conditions (not mental disorders or infectious disease) (4 sources) Encounter for screening for malignant neoplasm of cervix; Translations: [ENC SCREENING MALIG NEOPLASM CERV] Onset: 01-13-2023 Episodic Residual codes; unclassified (1 source) No current problems or disability; Translations: [Other specified conditions influencing health status] Onset: 06-18-2021 Episodic Residual codes; unclassified (4 sources) Edema of right lower limb; Translations: [Localized edema] 01-15-2022 Episodic Residual codes; unclassified (3 sources) Localized edema; Translations: [Edema] 07-08-2022 Episodic Residual codes; unclassified (1 source) 9 weeks gestation of ; Translations: [9 WEEKS GESTATION OF ] Onset: 03-25-2023 Episodic Skin and subcutaneous tissue infections (4 sources) Cellulitis; Translations: [Cellulitis and abscess of unspecified sites] Episodic Unclassified (1 source) Malignant melanoma of right lower limb, including hip; Translations: [Malignant melanoma of right lower limb, including hip] Onset: 08-19-2023 Past or Other Problems Problem Classification Problem Date Documented Date Episodic/Chronic Other female genital disorders (4 sources) Other specified noninflammatory disorders of vagina; Translations: [OTH SPEC NONINFLAMMATORY D/O VAGINA] Onset: 06-16-2022 Episodic Results Test Name Value Interpretation Reference Range Facil ity Complete Blood Count Auto Di ffon 08-17-2023 Basophils (Bld) [#/Vol] 0.0 10*3/uL Normal 0.0-0.2 [facility] Comment on above: Result Comment: PERF ORMED BY: [facility] [address] [place] [address] PATHOLOGIST MARKET CONSULTANT RUSS DAVIS M.D. Performed By: #### C MP, TSH3, CBC, T4F, T3F ####[place] [address] [place] [id number] [facility] Basophils/100 WBC (Bld) 0.4 % Normal . [facility] Comment on above: Performed By: #### C MP, TSH3, CBC, T4F, T3F ####[facility] [place] [address] [facility] Eosinophils (Bld) [#/Vol] 0.1 10*3/uL Normal 0.0-0.45 [facility] Comment on above: Performed By: #### C MP, TSH3, CBC, T4F, T3F ####[place] [address] [place] [id number] [place] Eosinophils/100 WBC (Bld) 0.6 % Normal . [facility] Comment on above: Performed By: #### C MP, TSH3, CBC, T4F, T3F ####[address] Erythrocyte distribution wid th (RBC) [Ratio] 13.3 % Normal 11.9-15.3 [facility] Comment on above: Performed By: #### C MP, TSH3, CBC, T4F, T3F ####[address] Hematocrit (Bld) [Volume fraction] 34.5 % Normal 34.0-46.4 [facility] Comment on above: Performed By: #### C MP, TSH3, CBC, T4F, T3F ####[address] Hemoglobin (Bld) [Mass/Vol] 11.6 g/dL Low 11.8-15. 4 [facility] Comment on above: Performed By: #### C MP, TSH3, CBC, T4F, T3F ####[address] Lymphocytes (Bld) [#/Vol] 1.2 10*3/uL Normal 1.00-4.8 [facility] Comment on above: Performed By: #### C MP, TSH3, CBC, T4F, T3F ####[address] Lymphocytes/100 WBC (Bld) 12.2 % Normal . [facility] Comment on above: Performed By: #### C MP, TSH3, CBC, T4F, T3F ####[address] MCH (RBC) [Entitic mass] 30.5 pg Normal 24.7-34.3 [facility] Comment on above: Performed By: #### C MP, TSH3, CBC, T4F, T3F ####[address] MCV (RBC) [Entitic vol] 90.4 fL Normal 80-100 [facility] Comment on above: Performed By: #### C MP, TSH3, CBC, T4F, T3F ####[address] Mean Corpuscular HGB Conc 33.8 g/dL Normal 32.0-35.0 [facility] Comment on above: Performed By: #### C MP, TSH3, CBC, T4F, T3F ####[address] Monocytes (Bld) [#/Vol] 0.6 10*3/uL Normal 0.0-0.8 [facility] Comment on above: Performed By: #### C MP, TSH3, CBC, T4F, T3F ####[address] Monocytes/100 WBC (Bld) 6.5 % Normal . [facility] Comment on above: Performed By: #### C MP, TSH3, CBC, T4F, T3F ####[address] Neutrophils (Bld) [#/Vol] 7.8 10*3/uL High 1.8-7.7 [facility] Comment on above: Performed By: #### C MP, TSH3, CBC, T4F, T3F ####[place] [id number] [facility] Neutrophils/100 WBC (Bld) 80.3 % Normal . [facility] Comment on above: Performed By: #### C MP, TSH3, CBC, T4F, T3F ####[address] NRBC% 0.0 /100{WBC} Normal 0-0.5 [facility] Comment on above: Performed By: #### C MP, TSH3, CBC, T4F, T3F ####[place] [id number] [facility] Platelet mean volume (Bld) [Entitic vol] 7.8 fL Normal 6.3-10.7 [facility] Comment on above: Performed By: #### C MP, TSH3, CBC, T4F, T3F ####[address] Platelets (Bld) [#/Vol] 237 10*3/uL Normal 150-450 [facility] Comment on above: Performed By: #### C MP, TSH3, CBC, T4F, T3F ####[address] RBC (Bld) [#/Vol] 3.82 10*6/uL Normal 3.60-5.00 [facility] Comment on above: Performed By: #### C MP, TSH3, CBC, T4F, T3F ####[address] WBC (Bld) [#/Vol] 9.7 10*3/uL Normal 3.8-11.6 [facility] Comment on above: Performed By: #### C MP, TSH3, CBC, T4F, T3F ####[address] Comprehensive Metabolic Pane dustin 08-17-2023 Albumin [Mass/Vol] 3.3 g/dL Low 3.5-5.7 [facility] Comment on above: Performed By: #### C MP, TSH3, CBC, T4F, T3F ####[address] Albumin/Globulin [Mass ratio] 1.5 {ratio} Normal [facility] Comment on above: Performed By: #### C MP, TSH3, CBC, T4F, T3F ####[address] ALP [Catalytic activity/Vol] 92 U/L Normal 34-104 [facility] Comment on above: Performed By: #### C MP, TSH3, CBC, T4F, T3F ####[place] [id number] [facility] ALT [Catalytic activity/Vol] 11 U/L Normal 7-52 [facility] Comment on above: Performed By: #### C MP, TSH3, CBC, T4F, T3F ####[place] [id number] [facility] Anion gap [Moles/Vol] 9.4 mmol/L Normal 6.0-15.0 [facility] Comment on above: Performed By: #### C MP, TSH3, CBC, T4F, T3F ####[place] [id number] [facility] AST [Catalytic activity/Vol] 16 U/L Normal 13-39 [facility] Comment on above: Performed By: #### C MP, TSH3, CBC, T4F, T3F ####[place] [id number] [facility] Bilirubin [Mass/Vol] 0.3 mg/dL Normal 0.3-1.0 [facility] Comment on above: Performed By: #### C MP, TSH3, CBC, T4F, T3F ####[address] Calcium [Mass/Vol] 8.5 mg/dL Low 8.6-10.3 [facility] Comment on above: Performed By: #### C MP, TSH3, CBC, T4F, T3F ####[place] [id number] [facility] Chloride [Moles/Vol] 105 mmol/L Normal 98-107 [facility] Comment on above: Performed By: #### C MP, TSH3, CBC, T4F, T3F ####[place] [id number] [facility] CO2 [Moles/Vol] 27.3 mmol/L Normal 21.0-31.0 [facility] Comment on above: Performed By: #### C MP, TSH3, CBC, T4F, T3F ####[place] [id number] [facility] Creatinine [Mass/Vol] 0.65 mg/dL Normal 0.60-1.20 [facility] Comment on above: Performed By: #### C MP, TSH3, CBC, T4F, T3F ####[facility] [place] [id number] [facility] Creatinine Clr Calc Pharmacy 132.[address] [facility] Comment on above: Performed By: #### C MP, TSH3, CBC, T4F, T3F ####[place] [address] [place] [id number] [facility] GFR/1.73 sq M.predicted MDRD (S/P/Bld) [Vol rate/Area] mL/min/{1.73_m2} Normal [facility] Comment on above: Performed By: #### C MP, TSH3, CBC, T4F, T3F ####[place] [address] [place] [id number] [facility] Globulin (S) [Mass/Vol] 2.2 g/dL Normal [facility] Comment on above: Performed By: #### C MP, TSH3, CBC, T4F, T3F ####[place] [phone] [facility] Glucose [Mass/Vol] 93 mg/dL Normal 70-100 [facility] Comment on above: Result Comment: [place] Glucose Reference Range is dependent on time and content of last meal. Glucose of more than 200 mg/dL in a nonstressed, ambulatory subject supports the diagnosis of Diabetes Mellitus. ADA recommended reference range Performed By: #### C MP, TSH3, CBC, T4F, T3F ####[place] [address] [place] [address] [facility] Potassium [Moles/Vol] 3.7 mmol/L Normal 3.5-5.1 [facility] Comment on above: Performed By: #### C MP, TSH3, CBC, T4F, T3F ####[address] [address] [facility] Protein [Mass/Vol] 5.5 g/dL Low 6.4-8.9 [facility] Comment on above: Performed By: #### C MP, TSH3, CBC, T4F, T3F ####[place] [address] [place] [address] [facility] Sodium [Moles/Vol] 138 mmol/L Normal 136-145 [facility] Comment on above: Performed By: #### C MP, TSH3, CBC, T4F, T3F ####[place] [id number] [facility] Urea nitrogen [Mass/Vol] 9 mg/dL Normal 06-16 [facility] Comment on above: Performed By: #### C MP, TSH3, CBC, T4F, T3F ####[place] [id number] [facility] Free T4 (Free Thyroxine)on 0 08-17-2023 Free T4 [Mass/Vol] 0.59 ng/dL Low 0.61-1.12 [facility] Comment on above: Performed By: #### C MP, TSH3, CBC, T4F, T3F ####[place] [id number] [facility] Thyroid Stimulating Hormoneo n 08-17-2023 TSH Qn 2.02 m[IU]/L Normal 0.45-5.33 [facility] Comment on above: Result Comment: PERF ORMED BY: [facility] [address] [place] [id number] PATHOLOGIST MARKET CONSULTANT RUSS DAVIS M.D. Performed By: #### C MP, TSH3, CBC, T4F, T3F ####[place] [id number] [facility] Triiodothyronine (T3) Freeon 08-17-2023 Triiodothyronine (T3) Free 2.72 pg/mL Normal 2.50-3.90 [facility] Comment on above: Result Comment: PERF ORMED BY: [facility] [address] [place] [id number] PATHOLOGIST MARKET CONSULTANT RUSS DAVIS M.D. Performed By: #### C MP, TSH3, CBC, T4F, T3F ####[facility] [address] [place] [id number] [facility] US extremity nonvascularon 0 08-17-2023 US extremity nonvascular [place] [id number] Ultrasound Report Signed Patient: Ailyn Resendiz MR#: [id number] : 1995 Acct:[id number] Age/Sex: 28 / F ADM Date: 08/17/23 Loc: XT Room: Type: [facility] Attending Dr: Amanda Rosario MD Ordering Provider: Amanda Rosario MD Date of Service: 08/17/23 US/US extremity nonvascular: surveillance melanoma Copies to: Amanda Rosario MD US extremity nonvascular 08/17/2023 10:08 AM SIGNS AND SYMPTOMS: surveillance melanoma right inguinal PROTOCOL: Grayscale and color Doppler sonographic images of the right inguinal region were obtained COMPARISON: 05/27/2022 FINDINGS: There are reniform hypoechoic structures with echogenic hilum consistent with lymph nodes noted in the right inguinal region. The largest measures 1.7 x 0.6 x 1.4 cm with the second measuring 1.3 x 0.6 x 0.9 cm. These are similar to the prior exam. No definite cortical thickening is noted to suggest metastatic disease. US/US extremity nonvascular IMPRESSION: Benign-appearing lymph nodes are noted in the right inguinal region without cortical thickening to suggest metastatic disease. Continued close clinical observation is recommended in Impression dictated by: Thony Lopes M.D.08/17/2023 2:39 PM Dictation Location: [place] [address] Tech: Rivka Zhao Transcribed By: LEOPOLDO 08/17/231438 Dictated By: Thony Lopes II, MD 08/17/231435 Signed By: 08/17/[address] [facility] US extremity nonvascularon 0 05-27-2023 US extremity nonvascular [place] [id number] Ultrasound Report Signed Patient: Ailyn Resendiz MR#: [id number] : 1995 Acct:[id number] Age/Sex: 27 / F ADM Date: 05/27/23 Loc: XT Room: Type: [facility] Attending Dr: Amanda Rosario MD Ordering Provider: Amanda Rosario MD Date of Service: 05/27/23 US/US extremity nonvascular: surveillance melanoma Copies to: Amanda Rosario MD Soft tissue ultrasound. Reason for exam: History of malignant melanoma. COMPARISON: Prior ultrasound 01/09/2023 TECHNIQUE: Grayscale and color Doppler images of the right groin were obtained. FINDINGS: Imaging of the right groin demonstrates multiple benign-appearing lymph nodes largest measuring 1.5 x 0.5 x 1.3 cm. Findings are similar to the prior ultrasound study. No solid mass, fluid collection or hernia. US/US extremity nonvascular Impression: No significant change in right groin findings compared to the prior ultrasound study. Impression dictated by: Paresh Gilmore Jr., D.ODavid05/27/2023 8:12 PM Dictation Location: [place] [address] Tech: Uma Ram Transcribed By: LEOPOLDO 05/27/232011 Dictated By: Paresh Gilmore Jr, DO 05/27/232009 Signed By: 05/27/232011 Normal [facility] Adrenocorticotropic Hormone PLon 05-20-[address] 10.8 pg/mL Normal 7.2-6 3.3 [facility] Comment on above: Result Comment: ACTH reference interval for samples collected between 7 and 10 AM. Performed at: - [facility] [id number] [employer] Admissions Representative: Sai Smalls PhD, Phone: [phone] PERFORMED BY: [place] [address] PATHOLOGIST MARKET CONSULTANT RUSS DAVIS M.D. Performed By: #### C MP, TSH3, T4F, T3F, CBC #### [address] #### ACTH #### [facility] , Alanine aminotransferase [En zymatic activity/volume] in Serum or PlasmaOrdered By: Amanda Rosario on 05-20-2023 ALT [Catalytic activity/Vol] 9 U/L 7-52 [facility] Albumin [Mass/volume] in Ser um or Plasma by Bromocresol green (BCG) dye binding methoOrdered By: Amanda Rosario on 05-20-2023 Albumin BCG dye [Mass/Vol] 3.8 g/dL 3.5-5.7 [facility] Alkaline phosphatase [Enzyma tic activity/volume] in Serum or PlasmaOrdered By: Amanda Rosario on 05-20-2023 ALP [Catalytic activity/Vol] 52 U/L 34-104 [facility] Aspartate aminotransferase [ Enzymatic activity/volume] in Serum or PlasmaOrdered By: Amanda Rosario on 05-20-2023 AST [Catalytic activity/Vol] 14 U/L 13-39 [facility] Basophils Auto (Bld) [#/Vol] Ordered By: Amanda Rosario on 05-20-2023 Basophils (Bld) [#/Vol] 0.0 10*3/uL 0.0-0.2 [facility] Basophils/100 WBC Auto (Bld) Ordered By: Amanda Rosario on 05-20-2023 Basophils/100 WBC (Bld) 0.4 % . [facility] Bilirubin.total [Mass/volume ] in Serum or PlasmaOrdered By: Amanda Rosario on 05-20-2023 Bilirubin [Mass/Vol] 0.5 mg/dL 0.3-1.0 [facility] Calcium [Mass/volume] in Ser um or PlasmaOrdered By: Amanda Rosario on 05-20-2023 Calcium [Mass/Vol] 8.5 mg/dL 8.6-10.3 [facility] Carbon dioxide, total [Moles /volume] in Serum or PlasmaOrdered By: Amanda Rosario on 05-20-2023 CO2 [Moles/Vol] 26.1 mmol/L 21.0-31.0 [facility] Chloride [Moles/volume] in [place] or PlasmaOrdered By: Amanda Rosario on 05-20-2023 Chloride [Moles/Vol] 104 mmol/L 98-107 [facility] Complete Blood Count Auto Di ffon 05-20-2023 Basophils (Bld) [#/Vol] 0.0 10*3/uL Normal 0.0-0.2 [facility] Comment on above: Result Comment: PERF ORMED BY: [place] [address] PATHOLOGIST MARKET CONSULTANT RUSS DAVIS M.D. Performed By: #### C MP, TSH3, T4F, T3F, CBC #### [address] #### ACTH #### [facility] , Basophils/100 WBC (Bld) 0.4 % Normal . [facility] Comment on above: Performed By: #### C MP, TSH3, T4F, T3F, CBC #### [address] #### ACTH #### [facility] , Eosinophils (Bld) [#/Vol] 0.1 10*3/uL Normal 0.0-0.45 [facility] Comment on above: Performed By: #### C MP, TSH3, T4F, T3F, CBC #### [place] [address] [place] #### ACTH #### [facility] , Eosinophils/100 WBC (Bld) 0.6 % Normal . [facility] Comment on above: Performed By: #### C MP, TSH3, T4F, T3F, CBC #### [place] [address] [place] #### ACTH #### [facility] , Erythrocyte distribution wid th (RBC) [Ratio] 13.1 % Normal 11.9-15.3 [facility] Comment on above: Performed By: #### C MP, TSH3, T4F, T3F, CBC #### [place] [address] [place] #### ACTH #### [facility] , Hematocrit (Bld) [Volume fraction] 34.7 % Normal 34.0-46.4 [facility] Comment on above: Performed By: #### C MP, TSH3, T4F, T3F, CBC #### [place] [address] [place] #### ACTH #### [facility] , Hemoglobin (Bld) [Mass/Vol] 12.0 g/dL Normal 11.8-15. 4 [facility] Comment on above: Performed By: #### C MP, TSH3, T4F, T3F, CBC #### [address] #### ACTH #### [facility] , Lymphocytes (Bld) [#/Vol] 1.3 10*3/uL Normal 1.00-4.8 [facility] Comment on above: Performed By: #### C MP, TSH3, T4F, T3F, CBC #### [place] [address] [place] #### ACTH #### [facility] , Lymphocytes/100 WBC (Bld) 12.8 % Normal . [facility] Comment on above: Performed By: #### C MP, TSH3, T4F, T3F, CBC #### [place] [address] [place] #### ACTH #### [facility] , MCH (RBC) [Entitic mass] 31.5 pg Normal 24.7-34.3 [facility] Comment on above: Performed By: #### C MP, TSH3, T4F, T3F, CBC #### [facility] [address] [place] [address] [place] #### ACTH #### [facility] , MCV (RBC) [Entitic vol] 91.1 fL Normal 80-100 [facility] Comment on above: Performed By: #### C MP, TSH3, T4F, T3F, CBC #### [place] [address] [place] #### ACTH #### [facility] , Mean Corpuscular HGB Conc 34.6 g/dL Normal 32.0-35.0 [facility] Comment on above: Performed By: #### C MP, TSH3, T4F, T3F, CBC #### [facility] [address] [place] [address] [place] #### ACTH #### [facility] , Monocytes (Bld) [#/Vol] 0.7 10*3/uL Normal 0.0-0.8 [facility] Comment on above: Performed By: #### C MP, TSH3, T4F, T3F, CBC #### [facility] [address] [place] [address] [place] #### ACTH #### [facility] , Monocytes/100 WBC (Bld) 6.4 % Normal . [facility] Comment on above: Performed By: #### C MP, TSH3, T4F, T3F, CBC #### [facility] [address] [place] [address] [place] #### ACTH #### [facility] , Neutrophils (Bld) [#/Vol] 8.2 10*3/uL High 1.8-7.7 [facility] Comment on above: Performed By: #### C MP, TSH3, T4F, T3F, CBC #### [facility] [address] [place] [address] [place] #### ACTH #### [facility] , Neutrophils/100 WBC (Bld) 79.8 % Normal . [facility] Comment on above: Performed By: #### C MP, TSH3, T4F, T3F, CBC #### [facility] [address] [place] [address] [place] #### ACTH #### [facility] , NRBC% 0.2 /100{WBC} Normal 0-0.5 [facility] Comment on above: Performed By: #### C MP, TSH3, T4F, T3F, CBC #### [facility] [address] [place] [address] [place] #### ACTH #### [facility] , Platelet mean volume (Bld) [Entitic vol] 7.4 fL Normal 6.3-10.7 [facility] Comment on above: Performed By: #### C MP, TSH3, T4F, T3F, CBC #### [place] [address] [place] #### ACTH #### [facility] , Platelets (Bld) [#/Vol] 256 10*3/uL Normal 150-450 [facility] Comment on above: Performed By: #### C MP, TSH3, T4F, T3F, CBC #### [place] [address] [place] #### ACTH #### [facility] , RBC (Bld) [#/Vol] 3.81 10*6/uL Normal 3.60-5.00 [facility] Comment on above: Performed By: #### C MP, TSH3, T4F, T3F, CBC #### [place] [address] [place] #### ACTH #### [facility] , WBC (Bld) [#/Vol] 10.3 10*3/uL Normal 3.8-11.6 [facility] Comment on above: Performed By: #### C MP, TSH3, T4F, T3F, CBC #### [facility] [address] [place] [address] [place] #### ACTH #### [facility] , Comprehensive Metabolic Pane dustin 05-20-2023 Albumin [Mass/Vol] 3.8 g/dL Normal 3.5-5.7 [facility] Comment on above: Performed By: #### C MP, TSH3, T4F, T3F, CBC #### [facility] [address] [place] [address] [place] #### ACTH #### [facility] , Albumin/Globulin [Mass ratio] 1.7 {ratio} Normal [facility] Comment on above: Performed By: #### C MP, TSH3, T4F, T3F, CBC #### [facility] [address] [place] [address] [place] #### ACTH #### [facility] , ALP [Catalytic activity/Vol] 52 U/L Normal 34-104 [facility] Comment on above: Performed By: #### C MP, TSH3, T4F, T3F, CBC #### [facility] [address] [place] [address] #### ACTH #### [facility] , ALT [Catalytic activity/Vol] 9 U/L Normal 7-52 [facility] Comment on above: Performed By: #### C MP, TSH3, T4F, T3F, CBC #### [facility] [address] [place] [address] [place] #### ACTH #### [facility] , Anion gap [Moles/Vol] 10.1 mmol/L Normal 6.0-15.0 [facility] Comment on above: Performed By: #### C MP, TSH3, T4F, T3F, CBC #### [facility] [address] [place] [address] [place] #### ACTH #### [facility] , AST [Catalytic activity/Vol] 14 U/L Normal 13-39 [facility] Comment on above: Performed By: #### C MP, TSH3, T4F, T3F, CBC #### [facility] [address] [place] [address] [place] #### ACTH #### [facility] , Bilirubin [Mass/Vol] 0.5 mg/dL Normal 0.3-1.0 [facility] Comment on above: Performed By: #### C MP, TSH3, T4F, T3F, CBC #### [facility] [address] [place] [address] [place] #### ACTH #### [facility] , Calcium [Mass/Vol] 8.5 mg/dL Low 8.6-10.3 [facility] Comment on above: Performed By: #### C MP, TSH3, T4F, T3F, CBC #### [facility] [address] [place] [address] [place] #### ACTH #### [facility] , Chloride [Moles/Vol] 104 mmol/L Normal 98-107 [facility] Comment on above: Performed By: #### C MP, TSH3, T4F, T3F, CBC #### [facility] [address] [place] [address] [place] #### ACTH #### [facility] , CO2 [Moles/Vol] 26.1 mmol/L Normal 21.0-31.0 [facility] Comment on above: Performed By: #### C MP, TSH3, T4F, T3F, CBC #### [facility] [address] [place] [address] [place] #### ACTH #### [facility] , Creatinine [Mass/Vol] 0.56 mg/dL Low 0.60-1.20 [facility] Comment on above: Performed By: #### C MP, TSH3, T4F, T3F, CBC #### [facility] [address] [place] [address] [place] #### ACTH #### [facility] , Creatinine Clr Calc Pharmacy 154.92 Normal [facility] Comment on above: Performed By: #### C MP, TSH3, T4F, T3F, CBC #### [facility] [address] [place] [address] [place] #### ACTH #### [facility] , GFR/1.73 sq M.predicted MDRD (S/P/Bld) [Vol rate/Area] mL/min/{1.73_m2} Normal [facility] Comment on above: Performed By: #### C MP, TSH3, T4F, T3F, CBC #### [place] [address] [place] #### ACTH #### [facility] , Globulin (S) [Mass/Vol] 2.3 g/dL Normal [facility] Comment on above: Performed By: #### C MP, TSH3, T4F, T3F, CBC #### [place] [address] [place] #### ACTH #### [facility] , Glucose [Mass/Vol] 72 mg/dL Normal 70-100 [facility] Comment on above: Result Comment: [facility] Glucose Reference Range is dependent on time and content of last meal. Glucose of more than 200 mg/dL in a nonstressed, ambulatory subject supports the diagnosis of Diabetes Mellitus. ADA recommended reference range Performed By: #### C MP, TSH3, T4F, T3F, CBC #### [place] [address] [place] #### ACTH #### [facility] , Potassium [Moles/Vol] 4.2 mmol/L Normal 3.5-5.1 [facility] Comment on above: Performed By: #### C MP, TSH3, T4F, T3F, CBC #### [place] [address] [place] #### ACTH #### [facility] , Protein [Mass/Vol] 6.1 g/dL Low 6.4-8.9 [facility] Comment on above: Performed By: #### C MP, TSH3, T4F, T3F, CBC #### [place] [address] [place] #### ACTH #### [facility] , Sodium [Moles/Vol] 136 mmol/L Normal 136-145 [facility] Comment on above: Performed By: #### C MP, TSH3, T4F, T3F, CBC #### [facility] [address] [place] [address] [place] #### ACTH #### [facility] , Urea nitrogen [Mass/Vol] 10 mg/dL Normal 7-25 [facility] Comment on above: Performed By: #### C MP, TSH3, T4F, T3F, CBC #### [facility] [address] [place] [address] [place] #### ACTH #### [facility] , Creatinine [Mass/volume] in Serum or PlasmaOrdered By: Amanda Rosario on 05-20-2023 Creatinine [Mass/Vol] 0.56 mg/dL 0.60-1.20 [facility] Eosinophils Auto (Bld) [#/Vo l]Ordered By: Amanda Rosario on 05-20-2023 Eosinophils (Bld) [#/Vol] 0.1 10*3/uL 0.0-0.45 [facility] Eosinophils/100 WBC Auto (Bl d)Ordered By: Amanda Rosario on 05-20-2023 Eosinophils/100 WBC (Bld) 0.6 % . [facility] Erythrocyte distribution wid th Auto (RBC) [Ratio]Ordered By: Amanda Rosario on 05-20-2023 Erythrocyte distribution wid th (RBC) [Ratio] 13.1 % 11.9-15.3 [facility] Free T4 (Free Thyroxine)on 0 05-20-2023 Free T4 [Mass/Vol] 0.86 ng/dL Normal 0.61-1.12 [facility] Comment on above: Performed By: #### C MP, TSH3, T4F, T3F, CBC #### [facility] [address] [place] [address] [place] #### ACTH #### [facility] , Globulin Calc (S) [Mass/Vol] Ordered By: Amanda Rosario on 06-28-2023 Globulin (S) [Mass/Vol] 2.3 g/dL [facility] Glucose [Mass/volume] in Ser um or PlasmaOrdered By: Amanda Rosario on 05-20-2023 Glucose [Mass/Vol] 72 mg/dL 70-100 [facility] Comment on above: ADA recommended refe rence rangeRandom Glucose Reference Range is dependent on time and content of last meal. Glucose of more than 200 mg/dL in a nonstressed, ambulatory subject supports the diagnosis of Diabetes Mellitus. Hematocrit Auto (Bld) [Volum e fraction]Ordered By: Amanda Rosario on 05-20-2023 Hematocrit (Bld) [Volume fraction] 34.7 % 3 4.0-46.4 [facility] Hemoglobin [Mass/volume] in BloodOrdered By: Amanda Rosario on 05-20-2023 Hemoglobin (Bld) [Mass/Vol] 12.0 g/dL 11.8-15. 4 [facility] Leukocytes [#/volume] correc yanira for nucleated erythrocytes in Blood by Automated counOrdered By: Amanda Rosario on 05-20-2023 WBC corrected for nucl RBC A uto (Bld) [#/Vol] 10.3 10*3/uL 3.8-11.6 [facility] Lymphocytes Auto (Bld) [#/Vo l]Ordered By: Amanda Rosario on 05-20-2023 Lymphocytes (Bld) [#/Vol] 1.3 10*3/uL 1.00-4.8 [facility] Lymphocytes/100 WBC Auto (Bl d)Ordered By: Amanda Rosario on 05-20-2023 Lymphocytes/100 WBC (Bld) 12.8 % . [facility] MCH Auto (RBC) [Entitic mass ]Ordered By: Amanda Rosario on 05-20-2023 MCH (RBC) [Entitic mass] 31.5 pg 24.7-34.3 [facility] MCHC Auto (RBC) [Mass/Vol]Or dered By: Amanda Rosario on 05-20-2023 MCHC (RBC) [Mass/Vol] 34.6 g/dL 32.0-35.0 [facility] MCV Auto (RBC) [Entitic vol] Ordered By: Amanda Rosario on 05-20-2023 MCV (RBC) [Entitic vol] 91.1 fL 80-100 [facility] Monocytes Auto (Bld) [#/Vol] Ordered By: Amanda Rosario on 05-20-2023 Monocytes (Bld) [#/Vol] 0.7 10*3/uL 0.0-0.8 [facility] Monocytes/100 WBC Auto (Bld) Ordered By: Amanda Rosario on 05-20-2023 Monocytes/100 WBC (Bld) 6.4 % . [facility] Neutrophils Auto (Bld) [#/Vo l]Ordered By: Amanda Rosario on 05-20-2023 Neutrophils (Bld) [#/Vol] 8.2 10*3/uL 1.8-7.7 [facility] Neutrophils/100 WBC Auto (Bl d)Ordered By: Amanda Rosario on 05-20-2023 Neutrophils/100 WBC (Bld) 79.8 % . [facility] No Panel InformationOrdered By: Amanda Rosario on 05-20-2023 Adrenocorticotropic Hormone 10.8 pg/mL 7.2-63.3 [facility] Comment on above: ACTH reference inter cruz for samples collected between 7 and10 AM.Performed at: [place] [id number] Director: Sai Smalls PhD, Phone: [phone] Estimated GFR (CKD-EPI) > 60.0 mL/Min [facility] Creatinine Clearanc e (Chem 154.92 [facility] Nucleated erythrocytes [Pres ence] in Blood by Automated countOrdered By: Amanda Rosario on 05-20-2023 Nucleated RBC Auto Ql (Bld) 0.2 /100{WBC} 0-0.5 [facility] Platelet mean volume Auto (B ld) [Entitic vol]Ordered By: Amanda Rosario on 05-20-2023 Platelet mean volume (Bld) [Entitic vol] 7.4 fL 6.3-10.7 [facility] Platelets Auto (Bld) [#/Vol] Ordered By: Amanda Rosario on 05-20-2023 Platelets (Bld) [#/Vol] 256 10*3/uL 150-450 [facility] Potassium [Moles/volume] in Serum or PlasmaOrdered By: Amanda Rosario on 05-20-2023 Potassium [Moles/Vol] 4.2 mmol/L 3.5-5.1 [facility] Protein [Mass/volume] in Ser um or PlasmaOrdered By: Amanda Rosario on 05-20-2023 Protein [Mass/Vol] 6.1 g/dL 6.4-8.9 [facility] RBC Auto (Bld) [#/Vol]Ordere d By: Amanda Rosario on 05-20-2023 RBC (Bld) [#/Vol] 3.81 10*6/uL 3.60-5.00 [facility] Serum or plasma albumin/glob ulin mass ratioOrdered By: Amanda Rosario on 05-20-2023 Albumin/Globulin [Mass ratio] 1.7 {ratio} [facility] Serum or plasma anion gap de terminationOrdered By: Amanda Rosario on 05-20-2023 Anion gap [Moles/Vol] 10.1 mmol/L 6.0-15.0 [facility] Sodium [Moles/volume] in Ser um or PlasmaOrdered By: Amanda Rosario on 05-20-2023 Sodium [Moles/Vol] 136 mmol/L 136-145 [facility] Thyroid Stimulating Hormoneo n 05-20-2023 TSH Qn 1.31 m[IU]/L Normal 0.45-5.33 [facility] Comment on above: Result Comment: PERF ORMED BY: [place] [address] PATH[employer]IST [employer]ANT RUSS DAVIS M.D. Performed By: #### C MP, TSH3, T4F, T3F, CBC #### [address] #### ACTH #### [facility] , Thyrotropin [Units/volume] i n Serum or PlasmaOrdered By: Amanda Rosario on 05-20-2023 TSH Qn 1.31 m[IU]/L 0.45-5.33 [facility] Thyroxine (T4) free [Mass/vo lume] in Serum or PlasmaOrdered By: Amanda Rosario on 05-20-2023 Free T4 [Mass/Vol] 0.86 ng/dL 0.61-1.12 [facility] Triiodothyronine (T3) Freeon 05-20-2023 Triiodothyronine (T3) Free 2.91 pg/mL Normal 2.50-3.90 [facility] Comment on above: Result Comment: PERF ORMED BY: [place] [address] PATHOLOGIST [employer] CONSULTANT RUSS DAVIS M.D. Performed By: #### C MP, TSH3, T4F, T3F, CBC #### [address] #### ACTH #### [facility] , Triiodothyronine (T3) Free [ Mass/volume] in Serum or PlasmaOrdered By: Amanda Rosario on 05-20-2023 Free T3 [Mass/Vol] 2.91 pg/mL 2.50-3.90 [facility] Urea nitrogen [Mass/volume] in Serum or PlasmaOrdered By: Amanda Rosario on 05-20-2023 Urea nitrogen [Mass/Vol] 10 mg/dL 06-16 [facility] WBC Auto (Bld) [#/Vol]Ordere d By: Amanda Rosario on 05-20-2023 WBC (Bld) [#/Vol] 10.3 10*3/uL 3.8-11.6 [facility] HEP B SURFACE ANTIGEN SCREEN on 04-08-2023 HBsAg Screen Negative Normal Negative [facility] Comment on above: Performed By: #### T SH #### [facility] [address] [place] [address] Dr. Beth Pineda HEPATITIS C VIRUS AB W/ REFL EX QUANTon 04-08-2023 HCV AB Non-Reactive Normal Non Reactive [facility] Comment on above: Performed By: #### H CVPCRR #### [facility] [address] [address] [address] Beth Pineda HIV 1 AND 2 WITH REFLEXon HIV Screen 4th Generation wRfx Non-Reactive Normal Non Reactive [facility] Comment on above: Result Comment: HIV Negative HIV-1/HIV-2 antibodies and HIV-1 p24 antigen were NOT detected. There is no laboratory evidence of HIV infection. Performed By: #### H IV12 #### [facility] [address] [place] [address] Dr. Beth Pineda RPR QUANTon 04-08-2023 Rapid Plasma Reagin, Quant Non-Reactive Normal NonRea< 1:1 [facility] Comment on above: Result Comment: Plea se Note: This test does not meet current guidelines for screening and diagnosis of syphilis. This test is intended for following treatment response in patients being treated for syphilis infection. To screen for syphilis infection, a reflex cascade that includes both RPR and a treponema-specific assay should be utilized, such as Treponema pallidum (Syphilis) Screening [facility] (307920) or Rapid Plasma Reagin (RPR) Test With Reflex to Quantitative RPR and Confirmatory Treponema pallidum Antibodies (858517). Performed By: #### R PRQ #### [facility] [address] [place] [address] Dr. Beth Pineda RUBELLA AB IGGon 04-08-2023 Rubella Antibodies, IgG 1.35 index Normal Immune >0.99 [facility] Comment on above: Result Comment: Non- immune <0.90 Equivocal 0.90 - 0.99 Immune >0.99 Performed By: #### R UBIGG #### [facility] [address] [place] [address] Dr. Beth Pineda BOX TEST SENT OUTon 04-07-20 SENT TO REF LAB 04/07/23 Normal [facility] Comment on above: Performed By: #### B OX #### [facility] [address] [place] [address] Dr. Beth Pineda CBC AUTO DIFFon 04-07-2023 BASO # 0.1 103/ul Normal 0.0-0.[address] [facility] Comment on above: Performed By: #### C BC #### [facility] [address] [place] [address] Dr. Beth Pineda Basophils/100 WBC (Bld) 0.7 % Normal 0.2-2.0 [facility] Comment on above: Performed By: #### C BC #### [facility] [address] [place] [address] Dr. Beth Pineda EO # 0.1 103/ul Normal 0.0-0.7 [facility] Comment on above: Performed By: #### C BC #### [facility] [address] [place] [address] Dr. Beth Pineda Eosinophils/100 WBC (Bld) 1.1 % Normal 0.9-7.0 [facility] Comment on above: Performed By: #### C BC #### [facility] [address] [place] [address] Dr. Beth Pineda Erythrocyte distribution wid th (RBC) [Ratio] 12.5 % Normal 11.0-15.0 [facility] Comment on above: Performed By: #### C BC #### [facility] [address] [place] [address] Dr. Beth Pineda Hematocrit (Bld) [Volume fraction] 37.8 % Normal 3 6.0-48.0 [facility] Comment on above: Performed By: #### C BC #### [facility] [address] [place] [address] Dr. Beth Pineda Hemoglobin (Bld) [Mass/Vol] 13.1 g/dL Normal 12.0-16. 0 [facility] Comment on above: Performed By: #### C BC #### [facility] [address] [place] [address] Dr. Beth Pineda IG # 0.02 10e3/ul Normal 0.00-0.03 [facility] Comment on above: Performed By: #### C BC #### [facility] [address] [place] [address] Dr. Beth Pineda IG % 0.3 % Normal 0.0-0.5 [facility] Comment on above: Performed By: #### C BC #### [facility] [address] [address] [address] Beth Pineda LYMPH # 1.5 103/ul Normal 1.2-3.8 [facility] Comment on above: Performed By: #### C BC #### [facility] [address] [address] [address] Beth Pineda Lymphocytes/100 WBC (Bld) 19.9 % Critically low 20.5-6 0.0 [facility] Comment on above: Performed By: #### C BC #### [facility] [address] [place] [address] Dr. Beth Pineda MANUAL DIFF REQ NO Normal [facility] Comment on above: Performed By: #### C BC #### [facility] [address] [place] [address] Dr. Beth Pineda MCH (RBC) [Entitic mass] 31.3 pg Normal 26.7-34.0 [facility] Comment on above: Performed By: #### C BC #### [facility] [address] [place] [address] Dr. Beth Pineda MCHC (RBC) [Mass/Vol] 34.7 g/dL Normal 29.9-35.2 [facility] Comment on above: Performed By: #### C BC #### [facility] [address] [place] [address] Dr. Beth Pineda MCV (RBC) [Entitic vol] 90.2 fL Normal 81.0-99.0 [facility] Comment on above: Performed By: #### C BC #### [facility] [address] [place] [address] Dr. Beth Pineda MONO # 0.5 103/ul Normal 0.3-0.8 [facility] Comment on above: Performed By: #### C BC #### [facility] [address] [place] [address] Dr. Beth Pineda Monocytes/100 WBC (Bld) 6.1 % Normal 1.7-12.0 [facility] Comment on above: Performed By: #### C BC #### [facility] [address] [place] [address] Dr. Beth Pineda NEUT # 5.4 103/ul Normal 1.4-6.5 [facility] Comment on above: Performed By: #### C BC #### [facility] [address] [place] [address] Dr. Beth Pineda Neutrophils/100 WBC (Bld) 71.9 % Normal 43.0-75.0 [facility] Comment on above: Performed By: #### C BC #### [facility] [address] [place] [address] Dr. Beth Pineda Platelet mean volume (Bld) [Entitic vol] 8.9 fL Critically low 9.5-13.5 [facility] Comment on above: Performed By: #### C BC #### [facility] [address] [place] [address] Dr. Beth Pineda PLT 272 103/ul Normal 150-450 [facility] Comment on above: Performed By: #### C BC #### [facility] [address] [place] [address] Dr. Beth Pineda RBC 4.19 106/ul Critically low 4.20-5.40 [facility] Comment on above: Performed By: #### C BC #### [facility] [address] [place] [address] Dr. Beth Pineda WBC 7.5 103/ul Normal 4.0-11.0 [facility] Comment on above: Performed By: #### C BC #### [facility] [address] [place] [address] Dr. Beth Pineda CULTURE URINEon 04-07-2023 CULTURE URINE Culture Observations : NO GROWTH. Normal [facility] Comment on above: Performed By: #### T SH #### [facility] [address] [place] [address] Dr. Beth Pineda GLYCOHEMOGLOBIN A1Con 2022 ADA RECOMMENDATION SEE BELOW Normal [facility] Comment on above: Result Comment: ADA RECOMMENDED LIMIT 4.0 - 6.0 ADA THERAPEUTIC TARGET < 7.0 ACTION SUGGESTED > 7.0 Performed By: #### A 1C #### [facility] [address] [address] [address] Beth Pineda Glucose [Mass/Vol] 82 mg/dL Normal [facility] Comment on above: Performed By: #### A 1C #### [facility] [address] [address] [address] Beth Pineda HbA1c (Bld) [Mass fraction] 4.5 % Normal 4.5-6.2 [facility] Comment on above: Performed By: #### A 1C #### [facility] [address] [address] [address] Beth Pineda TSHon 04-07-2023 TSH 2.191 uIU/mL Normal 0.358-3.740 [facility] Comment on above: Performed By: #### T SH #### [facility] [address] [place] [address] Dr. Beth Pineda TYPE AND SCREENon 04-07-2023 TYPE AND SCREEN Negative Normal [facility] Comment on above: Performed By: #### T SH #### [facility] [address] [place] [address] Dr. Beth Pineda US PREG TVon 03-13-2023 US PREG TV EXAMINATION: US PREG TV HISTORY: Missed period COMPARISON: No relevant comparison available. FINDINGS: GESTATIONAL SAC: Present and normal appearing. YOLK SAC: Present and normal appearing. POLE: Present and normal appearing. CARDIAC: Present. UTERUS: Normal size and appearance. OVARIES: Right: Corpus lutein cyst. Left: Normal. CERVIX: 4.0 cm in length and closed. CUL-DE-SAC: Normal. OTHER: None. AGE BY LMP: 9 weeks 3 days ELIE BY LMP: 10/13/2023 AGE BY US CRL: 8 weeks 0 days ELIE BY US CRL: 10/23/2023 IMPRESSION: 1. Single live intrauterine . Electronically authenticated by: MORE FARLEY Date: 2023-03-13 09:37 Normal [facility] PREG QUANT HCGon 02-27-2023 HCG QUANT 21415 mIU/mL Normal [facility] Comment on above: Performed By: #### A 1C #### [facility] [address] [place] [address] Dr. Beth Pineda HCG RANGE SEE BELOW Normal [facility] Comment on above: Result Comment: 5-50 0.2-1 WEEK 50-500 1-2 WEEKS 100-5,000 2-3 WEEKS 500-10,000 3-4 WEEKS 1,000-50,000 4-5 WEEKS 10,000-100,000 5-6 WEEKS 15,000-200,000 6-8 WEEKS 10,000- 100,000 2-3 MONTHS Performed By: #### A 1C #### [facility] [address] [place] [address] Dr. Beth Pineda PREG QUANT HCGon 02-11-2023 HCG QUANT 57 mIU/mL Normal [facility] Comment on above: Performed By: #### A 1C #### [facility] [address] [place] [address] Dr. Beth Pineda HCG RANGE SEE BELOW Normal [facility] Comment on above: Result Comment: 5-50 0.2-1 WEEK 50-500 1-2 WEEKS 100-5,000 2-3 WEEKS 500-10,000 3-4 WEEKS 1,000-50,000 4-5 WEEKS 10,000-100,000 5-6 WEEKS 15,000-200,000 6-8 WEEKS 10,000- 100,000 2-3 MONTHS Performed By: #### A 1C #### [facility] [address] [place] [address] Dr. Beth Pineda PREG QUANT HCGon 02-09-2023 HCG QUANT 14 mIU/mL Normal [facility] Comment on above: Performed By: #### P REGQNT #### [facility] [address] [place] [address] Dr. Beth Pineda HCG RANGE SEE BELOW Normal [facility] Comment on above: Result Comment: 5-50 0.2-1 WEEK 50-500 1-2 WEEKS 100-5,000 2-3 WEEKS 500-10,000 3-4 WEEKS 1,000-50,000 4-5 WEEKS 10,000-100,000 5-6 WEEKS 15,000-200,000 6-8 WEEKS 10,000- 100,000 2-3 MONTHS Performed By: #### P REGQNT #### [facility] [address] [address] [address] Beth Pineda ANTI-MULLERIAN HORMONEon Anti-Mullerian Hormone (AMH) 12.5 ng/mL [facility] Comment on above: Result Comment: For assays employing antibodies, the possibility exists for interference by heterophile antibodies in the samples.1 1.Tanja Rendon Interferences in Immunoassays - still a threat. Clin. Chem. 2000; 46: 8562-2006. This test was developed and its performance characteristics determined by [facility]. It has not been cleared or approved by the Food and Drug Administration. Reference Range: Females 20 - 25y: 1.23 - 11.51 Median 4.70 AMH concentrations of >= 1.06 ng/mL is correlated with a better response to ovarian stimulation, produced more retrievable oocytes and higher odds of live according to Erikaer et al. Fertility and Sterility. 2010: 94:9844-3625. The current AMH test method correlates with the study method with a slope of 0.94. Females at risk of ovarian hyperstimulation syndrome or polycystic ovarian syndrome (PCOS) may exhibit elevated serum AMH concentrations. AMH levels from PCOS patients may be 2 to 5 fold higher than age-appropriate reference interval values. Granulosa cell tumors of the ovary may secrete AMH along with other tumor markers. Elevated AMH is not specific for malignancy, and the assay should not be used exclusively to diagnose or exclude an AMH-secreting ovarian tumor. Performed By: #### T SH #### [facility] [address] [place] [address] Dr. Beth Pineda PAP ACOG PANEL 2: 21 to 29on 01-20-2023 . . Normal [facility] Comment on above: Performed By: #### T SH #### [facility] [address] [place] [address] Dr. Beth Pineda Age Gdln ACOG Testing 23- [facility] Comment on above: Performed By: #### T SH #### [facility] [address] [place] [address] Dr. Beth Pineda DIAGNOSIS: Comment Normal [facility] Comment on above: Result Comment: NEGA TIVE FOR INTRAEPITHELIAL LESION OR MALIGNANCY. Performed By: #### T SH #### [facility] [address] [place] [address] Dr. Beth Pineda Methodology: Comment Normal [facility] Comment on above: Result Comment: This liquid based ThinPrep(R) pap test was screened with the use of an image guided system. Performed By: #### T SH #### [facility] [address] [place] [address] Dr. Beth Pineda Note: Comment Normal [facility] Comment on above: Result Comment: The Pap smear is a screening test designed to aid in the detection of premalignant and malignant conditions of the uterine cervix. It is not a diagnostic procedure and should not be used as the sole means of detecting cervical cancer. Both false-positive and false-negative reports do occur. . Performed By: #### T SH #### [facility] [address] [place] [address] Dr. Beth Pineda Performed by: Comment Normal [facility] Comment on above: Result Comment: Pato Gonzalez Web Systems Developer (ASCP) Performed By: #### T SH #### [facility] [address] [place] [address] Dr. Beth Pineda Reflex Criteria: Comment Normal [facility] Comment on above: Result Comment: The HPV DNA reflex criteria were not met with this specimen result therefore, no HPV testing was performed. . Performed By: #### T SH #### [facility] [address] [place] [address] Dr. Beth Pineda Specimen adequacy: Comment Normal [facility] Comment on above: Result Comment: Sati sfactory for evaluation. Endocervical and/or squamous metaplastic cells (endocervical component) are present. Performed By: #### T SH #### [facility] [address] [place] [address] Dr. Beth Pineda Albumin [Mass/volume] in Ser um or PlasmaOrdered By: Amanda Rosario on 01-09-2023 Albumin [Mass/Vol] 4.3 g/dL 3.2-5.5 [facility] Alkaline phosphatase [Enzyma tic activity/volume] in Serum or PlasmaOrdered By: Amanda Rosario on 01-09-2023 ALP [Catalytic activity/Vol] 54 U/L 32-92 [facility] Aspartate aminotransferase [ Enzymatic activity/volume] in Serum or PlasmaOrdered By: Amanda Rosario on 01-09-2023 AST [Catalytic activity/Vol] 21 U/L 10-42 [facility] Basophils Auto (Bld) [#/Vol] Ordered By: Amanda Rosario on 01-09-2023 Basophils (Bld) [#/Vol] 0.0 10*3/uL 0.0-0.2 [facility] Basophils/100 WBC Auto (Bld) Ordered By: Amanda Rosario on 01-09-2023 Basophils/100 WBC (Bld) 0.7 % . [facility] Bilirubin.total [Mass/volume ] in Serum or PlasmaOrdered By: Amanda Rosario on 01-09-2023 Bilirubin [Mass/Vol] 0.7 mg/dL 0.3-1.2 [facility] CT biopsyOrdered By: Amanda Nino se on 01-09-2023 Transferrin [Mass/Vol] 265 mg/dL 180-380 [facility] Calcium [Mass/volume] in Ser um or PlasmaOrdered By: Amanda Rosario on 01-09-2023 Calcium [Mass/Vol] 9.6 mg/dL 8.2-10.2 [facility] Carbon dioxide, total [Moles /volume] in Serum or PlasmaOrdered By: Amanda Rosario on 01-09-2023 CO2 [Moles/Vol] 27.2 mmol/L 22.0-30.0 [facility] Chloride [Moles/volume] in S [place] or PlasmaOrdered By: Amanda Rosario on 01-09-2023 Chloride [Moles/Vol] 104 mmol/L 95-114 [facility] Complete Blood Count Auto Di ffon 01-09-2023 Basophils (Bld) [#/Vol] 0.0 10*3/uL Normal 0.0-0.2 [facility] Comment on above: Result Comment: PERF ORMED BY: [place] [address] PATHOLOGIST MARKET CONSULTANT RUSS DAVIS M.D. Performed By: #### C MP, FE and TIBC, CBC, EFRAIN #### [address] Basophils/100 WBC (Bld) 0.7 % Normal . [facility] Comment on above: Performed By: #### C MP, FE and TIBC, CBC, EFRAIN #### [address] Eosinophils (Bld) [#/Vol] 0.1 10*3/uL Normal 0.0-0.45 [facility] Comment on above: Performed By: #### C MP, FE and TIBC, CBC, EFRAIN #### [address] Eosinophils/100 WBC (Bld) 1.3 % Normal . [facility] Comment on above: Performed By: #### C MP, FE and TIBC, CBC, EFRAIN #### [address] Erythrocyte distribution wid th (RBC) [Ratio] 13.1 % Normal 11.9-15.3 [facility] Comment on above: Performed By: #### C MP, FE and TIBC, CBC, EFRAIN #### [address] Hematocrit (Bld) [Volume fraction] 39.5 % Normal 34.0-46.4 [facility] Comment on above: Performed By: #### C MP, FE and TIBC, CBC, EFRAIN #### [address] Hemoglobin (Bld) [Mass/Vol] 13.1 g/dL Normal 11.8-15. 4 [facility] Comment on above: Performed By: #### C MP, FE and TIBC, CBC, EFRAIN #### [address] Lymphocytes (Bld) [#/Vol] 1.0 10*3/uL Normal 1.00-4.8 [facility] Comment on above: Performed By: #### C MP, FE and TIBC, CBC, EFRAIN #### [address] Lymphocytes/100 WBC (Bld) 20.2 % Normal . [facility] Comment on above: Performed By: #### C MP, FE and TIBC, CBC, EFRAIN #### [address] MCH (RBC) [Entitic mass] 30.0 pg Normal 24.7-34.3 [facility] Comment on above: Performed By: #### C MP, FE and TIBC, CBC, EFRAIN #### [address] MCV (RBC) [Entitic vol] 90.3 fL Normal 80-100 [facility] Comment on above: Performed By: #### C MP, FE and TIBC, CBC, EFRAIN #### [address] Mean Corpuscular HGB Conc 33.2 g/dL Normal 32.0-35.0 [facility] Comment on above: Performed By: #### C MP, FE and TIBC, CBC, EFRAIN #### [address] Monocytes (Bld) [#/Vol] 0.5 10*3/uL Normal 0.0-0.8 [facility] Comment on above: Performed By: #### C MP, FE and TIBC, CBC, EFRAIN #### [address] Monocytes/100 WBC (Bld) 10.5 % Normal . [facility] Comment on above: Performed By: #### C MP, FE and TIBC, CBC, EFRAIN #### [address] Neutrophils (Bld) [#/Vol] 3.2 10*3/uL Normal 1.8-7.7 [facility] Comment on above: Performed By: #### C MP, FE and TIBC, CBC, EFRAIN #### [address] Neutrophils/100 WBC (Bld) 67.3 % Normal . [facility] Comment on above: Performed By: #### C MP, FE and TIBC, CBC, EFRAIN #### [address] NRBC% 0.1 /100{WBC} Normal 0-0.5 [facility] Comment on above: Performed By: #### C MP, FE and TIBC, CBC, EFRAIN #### [address] Platelet mean volume (Bld) [Entitic vol] 7.9 fL Normal 6.3-10.7 [facility] Comment on above: Performed By: #### C MP, FE and TIBC, CBC, EFRAIN #### [address] Platelets (Bld) [#/Vol] 290 10*3/uL Normal 150-450 [facility] Comment on above: Performed By: #### C MP, FE and TIBC, CBC, EFRAIN #### [address] RBC (Bld) [#/Vol] 4.37 10*6/uL Normal 3.60-5.00 [facility] Comment on above: Performed By: #### C MP, FE and TIBC, CBC, EFRAIN #### [address] WBC (Bld) [#/Vol] 4.8 10*3/uL Normal 3.8-11.6 [facility] Comment on above: Performed By: #### C MP, FE and TIBC, CBC, EFRAIN #### [address] Comprehensive Metabolic Pane dustin 01-09-2023 Albumin [Mass/Vol] 4.3 g/dL Normal 3.2-5.5 [facility] Comment on above: Performed By: #### C MP, FE and TIBC, CBC, EFRAIN ####[address] Albumin/Globulin [Mass ratio] 1.9 {ratio} Normal [facility] Comment on above: Performed By: #### C MP, FE and TIBC, CBC, EFRAIN ####[address] [id number] [facility] ALP [Catalytic activity/Vol] 54 U/L Normal 32-92 [facility] Comment on above: Performed By: #### C MP, FE and TIBC, CBC, EFRAIN ####[address] ALT [Catalytic activity/Vol] 20 U/L Normal 10-60 [facility] Comment on above: Performed By: #### C MP, FE and TIBC, CBC, EFRAIN ####[address] [id number] [facility] Anion gap [Moles/Vol] 10.2 mmol/L Normal 6.0-15.0 [facility] Comment on above: Performed By: #### C MP, FE and TIBC, CBC, EFRAIN ####[address] AST [Catalytic activity/Vol] 21 U/L Normal 10-42 [facility] Comment on above: Performed By: #### C MP, FE and TIBC, CBC, EFRAIN ####[address] [id number] [facility] Bilirubin [Mass/Vol] 0.7 mg/dL Normal 0.3-1.2 [facility] Comment on above: Performed By: #### C MP, FE and TIBC, CBC, EFRAIN ####[id number] [facility] Calcium [Mass/Vol] 9.6 mg/dL Normal 8.2-10.2 [facility] Comment on above: Performed By: #### C MP, FE and TIBC, CBC, EFRAIN ####[address] [address] [place] Chloride [Moles/Vol] 104 mmol/L Normal 95-114 [facility] Comment on above: Performed By: #### C MP, FE and TIBC, CBC, EFRAIN ####[address] CO2 [Moles/Vol] 27.2 mmol/L Normal 22.0-30.0 [facility] Comment on above: Performed By: #### C MP, FE and TIBC, CBC, EFRAIN ####[address] Creatinine [Mass/Vol] 0.72 mg/dL Normal 0.44-1.03 [facility] Comment on above: Performed By: #### C MP, FE and TIBC, CBC, EFRAIN ####[address] Creatinine Clr Calc Pharmacy 120.[address] [facility] Comment on above: Performed By: #### C MP, FE and TIBC, CBC, EFRAIN ####[address] Estimated GFR ( Parul > [address] [facility] Comment on above: Result Comment: GFR estimated reference range: According to KDOQI guidelines, <60 ml/min/1.73m2 is sufficient to diagnose a patient with chronic kidney disease. Performed By: #### C MP, FE and TIBC, CBC, EFRAIN ####[address] Estimated GFR (Non- Am > [address] [facility] Comment on above: Performed By: #### C MP, FE and TIBC, CBC, EFRAIN ####[address] Globulin (S) [Mass/Vol] 2.3 g/dL Normal [facility] Comment on above: Performed By: #### C MP, FE and TIBC, CBC, EFRAIN ####[address] Glucose [Mass/Vol] 80 mg/dL Normal 70-100 [facility] Comment on above: Result Comment: [place] Glucose Reference Range is dependent on time and content of last meal. Glucose of more than 200 mg/dL in a nonstressed, ambulatory subject supports the diagnosis of Diabetes Mellitus. ADA recommended reference range Performed By: #### C MP, FE and TIBC, CBC, EFRAIN ####[address] Potassium [Moles/Vol] 4.4 mmol/L Normal 3.5-5.1 [facility] Comment on above: Performed By: #### C MP, FE and TIBC, CBC, EFRAIN ####[address] Protein [Mass/Vol] 6.6 g/dL Normal 6.1-7.9 [facility] Comment on above: Performed By: #### C MP, FE and TIBC, CBC, EFRAIN ####[address] Sodium [Moles/Vol] 137 mmol/L Normal 136-146 [facility] Comment on above: Performed By: #### C MP, FE and TIBC, CBC, EFRAIN ####[address] Urea nitrogen [Mass/Vol] 13 mg/dL Normal 9-23 [facility] Comment on above: Performed By: #### C MP, FE and TIBC, CBC, EFRAIN ####[address] Creatinine and Glomerular fi ltration rate.predicted panel (S/P/Bld)Ordered By: Amanda Rosario on 01-09-2023 Creatinine [Mass/Vol] 0.72 mg/dL 0.44-1.03 [facility] Eosinophils Auto (Bld) [#/Vo l]Ordered By: Amanda Rosario on 01-09-2023 Eosinophils (Bld) [#/Vol] 0.1 10*3/uL 0.0-0.45 [facility] Eosinophils/100 WBC Auto (Bl d)Ordered By: Amanda Rosario on 01-09-2023 Eosinophils/100 WBC (Bld) 1.3 % . [facility] Erythrocyte distribution wid th Auto (RBC) [Ratio]Ordered By: Amanda Rsoario on 01-09-2023 Erythrocyte distribution wid th (RBC) [Ratio] 13.1 % 11.9-15.3 [facility] Estimated glomerular filtrat ion rate (GFR) non- AmericanOrdered By: Amanda Rosario on 01-09-2023 GFR/1.73 sq M.predicted brian g non-blacks MDRD (S/P/Bld) [Vol rate/Area] > 60 mL/Min [facility] Ferritinon 01-09-2023 Ferritin [Mass/Vol] 13.4 ng/mL Normal 11-306.8 [facility] Comment on above: Result Comment: PERF ORMED BY: [facility] [address] [place] [address] PATHOLOGIST MARKET CONSULTANT RUSS DAVIS M.D. Performed By: #### C MP, FE and TIBC, CBC, EFRAIN ####[facility] [id number] [id number] [facility] Ferritin [Mass/volume] in Se rum or PlasmaOrdered By: Amanda Rosario on 01-09-2023 Ferritin [Mass/Vol] 13.4 ng/mL 11-306.8 [facility] Globulin Calc (S) [Mass/Vol] Ordered By: Amanda Rosario on 01-09-2023 Globulin (S) [Mass/Vol] 2.3 g/dL [facility] Glucose [Mass/volume] in Ser um or PlasmaOrdered By: Amanda Rosario on 01-09-2023 Glucose [Mass/Vol] 80 mg/dL 70-100 [facility] Comment on above: ADA recommended refe rence rangeRandom Glucose Reference Range is dependent on time and content of last meal. Glucose of more than 200 mg/dL in a nonstressed, ambulatory subject supports the diagnosis of Diabetes Mellitus. Hematocrit Auto (Bld) [Volum e fraction]Ordered By: Amanda Rosario on 01-09-2023 Hematocrit (Bld) [Volume fraction] 39.5 % 3 4.0-46.4 [facility] Hemoglobin [Mass/volume] in BloodOrdered By: Amanda Rosario on 01-09-2023 Hemoglobin (Bld) [Mass/Vol] 13.1 g/dL 11.8-15. 4 [facility] Iron [Mass/volume] in Serum or PlasmaOrdered By: Amanda Rosario on 01-09-2023 Iron [Mass/Vol] 75 ug/dL 40-150 [facility] Iron and TIBC Profileon 12-24 % Iron Saturation 20.2 % Normal 20-50 [facility] Comment on above: Performed By: #### C MP, FE and TIBC, CBC, EFRAIN ####[facility] [id number] Iron [Mass/Vol] 75 ug/dL Normal 40-150 [facility] Comment on above: Performed By: #### C MP, FE and TIBC, CBC, EFRAIN ####[address] [id number] [facility] Total Iron Binding Capacity 371 ug/dL Normal 255-450 [facility] Comment on above: Performed By: #### C MP, FE and TIBC, CBC, EFRAIN ####[facility] [id number] [place], [place] [id number] [facility] Transferrin [Mass/Vol] 265 mg/dL Normal 180-380 [facility] Comment on above: Performed By: #### C MP, FE and TIBC, CBC, EFRAIN ####[id number] [facility] Iron binding capacity [Mass/ volume] in Serum or PlasmaOrdered By: Amanda Rosario on 01-09-2023 Iron binding capacity [Mass/Vol] 371 ug/dL 255 -450 [facility] Iron saturation [Mass Fracti on] in Serum or PlasmaOrdered By: Amanda Rosario on 01-09-2023 Iron saturation [Mass fraction] 20.2 % 20-5 0 [facility] LDH Lactate Dehydrogenaseon 01-09-2023 LDH Lactate Dehydrogenase 145 U/L Normal 45-190 [facility] Comment on above: Result Comment: PERF ORMED BY: [facility] [address] [place] [id number] PATHOLOGIST MARKET CONSULTANT RUSS DAVIS M.D. Performed By: #### L ####[facility] [id number] [place] [address] [facility] Lactate dehydrogenase measur ement (enzymatic activity/volume)Ordered By: Ale Alejandrehakangene on 01-09-2023 LDH (Unsp spec) [Catalytic activity/Vol] 145 U/L 45-190 [facility] Leukocytes [#/volume] correc yanira for nucleated erythrocytes in Blood by Automated counOrdered By: Amanda Rosario on 01-09-2023 WBC corrected for nucl RBC A uto (Bld) [#/Vol] 4.8 10*3/uL 3.8-11.6 [facility] Lymphocytes Auto (Bld) [#/Vo l]Ordered By: Amanda Rosario on 01-09-2023 Lymphocytes (Bld) [#/Vol] 1.0 10*3/uL 1.00-4.8 [facility] Lymphocytes/100 WBC Auto (Bl d)Ordered By: Amanda Rosario on 01-09-2023 Lymphocytes/100 WBC (Bld) 20.2 % . [facility] MCH Auto (RBC) [Entitic mass ]Ordered By: Amanda Rosario on 01-09-2023 MCH (RBC) [Entitic mass] 30.0 pg 24.7-34.3 [facility] MCHC Auto (RBC) [Mass/Vol]Or dered By: Amanda Rosario on 01-09-2023 MCHC (RBC) [Mass/Vol] 33.2 g/dL 32.0-35.0 [facility] MCV Auto (RBC) [Entitic vol] Ordered By: Amanda Rosario on 01-09-2023 MCV (RBC) [Entitic vol] 90.3 fL 80-100 [facility] Monocytes Auto (Bld) [#/Vol] Ordered By: Amanda Rosario on 01-09-2023 Monocytes (Bld) [#/Vol] 0.5 10*3/uL 0.0-0.8 [facility] Monocytes/100 WBC Auto (Bld) Ordered By: Amanda Rosario on 01-09-2023 Monocytes/100 WBC (Bld) 10.5 % . [facility] Neutrophils Auto (Bld) [#/Vo l]Ordered By: Amanda Rosario on 01-09-2023 Neutrophils (Bld) [#/Vol] 3.2 10*3/uL 1.8-7.7 [facility] Neutrophils/100 WBC Auto (Bl d)Ordered By: Amanda Rosario on 01-09-2023 Neutrophils/100 WBC (Bld) 67.3 % . [facility] No Panel InformationOrdered By: Amanda Rosario on 01-09-2023 Estimated GFR () > 60 mL/Min [facility] Comment on above: GFR estimated refere nce range: According to KDOQI guidelines, <60 ml/min/1.73m2 is sufficient to diagnose a patient with chronic kidney disease. Pharmacy Creatinine Clearance (Chem 120.49 [facility] Nucleated erythrocytes [Pres ence] in Blood by Automated countOrdered By: Amanda Rosario on 01-09-2023 Nucleated RBC Auto Ql (Bld) 0.1 /100{WBC} 0-0.5 [facility] Platelet mean volume Auto (B ld) [Entitic vol]Ordered By: Amanda Rosario on 01-09-2023 Platelet mean volume (Bld) [Entitic vol] 7.9 fL 6.3-10.7 [facility] Platelets Auto (Bld) [#/Vol] Ordered By: Amanda Rosario on 01-09-2023 Platelets (Bld) [#/Vol] 290 10*3/uL 150-450 [facility] Potassium [Moles/volume] in Serum or PlasmaOrdered By: Amanda Rosario on 01-09-2023 Potassium [Moles/Vol] 4.4 mmol/L 3.5-5.1 [facility] Protein [Mass/volume] in Ser um or PlasmaOrdered By: Amanda Rosario on 01-09-2023 Protein [Mass/Vol] 6.6 g/dL 6.1-7.9 [facility] RBC Auto (Bld) [#/Vol]Ordere d By: Amanda Rosario on 01-09-2023 RBC (Bld) [#/Vol] 4.37 10*6/uL 3.60-5.00 [facility] Serum or plasma alanine green otransferase measurement without P-5'-P (enzymatic activiOrdered By: Amanda Rosario on 01-09-2023 ALT No additional P-5'-P [Ca talytic activity/Vol] 20 U/L 10-60 [facility] Serum or plasma albumin/glob ulin mass ratioOrdered By: Amanda Rosario on 01-09-2023 Albumin/Globulin [Mass ratio] 1.9 {ratio} [facility] Serum or plasma anion gap de terminationOrdered By: Amanda Rosario on 01-09-2023 Anion gap [Moles/Vol] 10.2 mmol/L 6.0-15.0 [facility] Sodium [Moles/volume] in Ser um or PlasmaOrdered By: Amanda Rosario on 01-09-2023 Sodium [Moles/Vol] 137 mmol/L 136-146 [facility] US extremity nonvascularon 0 01-09-2023 US extremity nonvascular [facility] [address] Ultrasound Report Signed Patient: Ailyn Resendiz MR#: [id number] : 1995 Acct:[id number] Age/Sex: 27 / F ADM Date: 01/09/23 Loc: XT Room: Type: [facility] Attending Dr: Amanda Rosario MD Ordering Provider: Amanda Rosario MD Date of Service: 01/09/23 US/US extremity nonvascular: [place] Melanoma Copies to: Amanda Rosario MD Soft tissue ultrasound. Reason for exam: History of malignant melanoma right lower extremity. Follow-up. COMPARISON: Ultrasound 07/08/2022. TECHNIQUE: Grayscale and color Doppler imaging of the right groin was obtained. FINDINGS: 4 benign-appearing lymph nodes are identified involving the right groin, largest measuring 1.6 x 0.4 x 0.7 cm. Similar findings are noted on the prior ultrasound study with largest lymph node 1.4 cm. No sinister-appearing mass or lymph node is seen. No fluid collection is noted. US/US extremity nonvascular Impression: Lymph nodes are seen within the right groin, grossly similar to the prior study. Impression dictated by: Paresh Gilmore Jr., D.O.01/09/2023 12:04 PM Dictation Location: [place] [address] Tech: Uma Ram Transcribed By: LEOPOLDO 01/09/23 1204 Dictated By: Paresh Gilmore Jr, DO 01/09/23 1201 Signed By: 01/09/23 120 Normal [facility] Urea nitrogen [Mass/volume] in Serum or PlasmaOrdered By: Amanda Rosario on 01-09-2023 Urea nitrogen [Mass/Vol] 13 mg/dL 08-15 [facility] WBC Auto (Bld) [#/Vol]Ordere d By: Amanda Rosario on 01-09-2023 WBC (Bld) [#/Vol] 4.8 10*3/uL 3.8-11.6 [facility] CBC AUTO DIFFon 12-31-2022 BASO # 0.1 103/ul Normal 0.0-0.1 [facility] ostal Comment on above: Performed By: #### C BC #### [facility] [address] [address] [address] Beth Pineda Basophils/100 WBC (Bld) 1.2 % Normal 0.2-2.0 [facility] Comment on above: Performed By: #### C BC #### [facility] [address] [place] [address] Dr. Beth Pineda EO # 0.1 103/ul Normal 0.0-0.7 [facility] Comment on above: Performed By: #### C BC #### [facility] [address] [address] [address] Beth Pineda Eosinophils/100 WBC (Bld) 2.1 % Normal 0.9-7.0 [facility] Comment on above: Performed By: #### C BC #### [facility] [address] [place] [address] Dr. Beth Pineda Erythrocyte distribution wid th (RBC) [Ratio] 12.9 % Normal 11.0-15.0 [facility] pital Comment on above: Performed By: #### C BC #### [facility] [address] [address] [address] Beth Pineda Hematocrit (Bld) [Volume fraction] 41.2 % Normal 3 6.0-48.0 [facility] Comment on above: Performed By: #### C BC #### [facility] [address] [address] [address] Beth Pineda Hemoglobin (Bld) [Mass/Vol] 13.5 g/dL Normal 12.0-16. 0 [facility] Comment on above: Performed By: #### C BC #### [facility] [address] [place] [address] Dr. Beth Pineda IG # 0.01 10e3/ul Normal 0.00-0.03 [facility] Comment on above: Performed By: #### C BC #### [facility] [address] [place] [address] Dr. Beth Pineda IG % 0.2 % Normal 0.0-0.5 [facility] Comment on above: Performed By: #### C BC #### [facility] [address] [place] [address] Dr. Beth Pineda LYMPH # 1.6 103/ul Normal 1.2-3.8 [facility] Comment on above: Performed By: #### C BC #### [facility] [address] [place] [address] Dr. Beth Pineda Lymphocytes/100 WBC (Bld) 29.9 % Normal 20.5-60.0 [facility] Comment on above: Performed By: #### C BC #### [facility] [address] [place] [address] Dr. Beth Pineda MANUAL DIFF REQ NO Normal [facility] Comment on above: Performed By: #### C BC #### [facility] [address] [place] [address] Dr. Beth Pineda MCH (RBC) [Entitic mass] 30.3 pg Normal 26.7-34.0 [facility] Comment on above: Performed By: #### C BC #### [facility] [address] [place] [address] Dr. Beth Pineda MCHC (RBC) [Mass/Vol] 32.8 g/dL Normal 29.9-35.2 [facility] Comment on above: Performed By: #### C BC #### [facility] [address] [place] [address] Dr. Beth Pnieda MCV (RBC) [Entitic vol] 92.6 fL Normal 81.0-99.0 [facility] Comment on above: Performed By: #### C BC #### [facility] [address] [place] [address] Dr. Beth Pineda MONO # 0.4 103/ul Normal 0.3-0.8 [facility] Comment on above: Performed By: #### C BC #### [facility] [address] [place] [address] Dr. Beth Pineda Monocytes/100 WBC (Bld) 7.9 % Normal 1.7-12.0 [facility] Comment on above: Performed By: #### C BC #### [facility] [address] [place] [address] Dr. Beth Pineda NEUT # 3.0 103/ul Normal 1.4-6.5 [facility] Comment on above: Performed By: #### C BC #### [facility] [address] [place] [address] Dr. Beth Pineda Neutrophils/100 WBC (Bld) 58.7 % Normal 43.0-75.0 [facility] Comment on above: Performed By: #### C BC #### [facility] [address] [place] [address] Dr. Beth Pineda Platelet mean volume (Bld) [Entitic vol] 9.3 fL Critically low 9.5-13.5 [facility] pitco Comment on above: Performed By: #### C BC #### [facility] [address] [place] [address] Dr. Beth Pineda PLT 304 103/ul Normal 150-450 [facility] ospital Comment on above: Performed By: #### C BC #### [facility] [address] [address] [address] Beth Pineda RBC 4.45 106/ul Normal 4.20-5.40 [facility] Comment on above: Performed By: #### C BC #### [facility] [address] [address] [address] Beth Pineda WBC 5.2 103/ul Normal 4.0-11.0 [facility] Comment on above: Performed By: #### C BC #### [facility] [address] [place] [address] Dr. Beth Pineda GLYCOHEMOGLOBIN A1Con 2022 ADA RECOMMENDATION SEE BELOW Normal [facility] Comment on above: Result Comment: ADA RECOMMENDED LIMIT 4.0 - 6.0 ADA THERAPEUTIC TARGET < 7.0 ACTION SUGGESTED > 7.0 Performed By: #### T SH #### [facility] [address] [place] [address] Dr. Beth Pineda Glucose [Mass/Vol] 91 mg/dL Normal [facility] Comment on above: Performed By: #### T SH #### [facility] [address] [place] [address] Dr. Beth Pineda HbA1c (Bld) [Mass fraction] 4.8 % Normal 4.5-6.2 [facility] Comment on above: Performed By: #### T SH #### [facility] [address] [place] [address] Dr. Beth Pineda LIPID PROFILEon 12-31-2022 CHOL-HDL RATIO NORM SEE BELOW Normal [facility] Comment on above: Result Comment: 3.3 - 4.4 LOW RISK 4.4 - 7.1 AVERAGE RISK 7.1 - 11.0 MODERATE RISK >11.0 HIGH RISK Performed By: #### A 1C #### [facility] [address] [place] [address] Dr. Beth Pineda Cholesterol [Mass/Vol] 180 mg/dL Normal <=200 [facility] Comment on above: Performed By: #### A 1C #### [facility] [address] [place] [address] Dr. Beth Pineda Cholesterol in HDL [Mass/Vol] 106 mg/dL Critically high 4 0-60 [facility] Comment on above: Performed By: #### A 1C #### [facility] [address] [address] [address] Beth Pineda Cholesterol in LDL [Mass/Vol] 66.6 mg/dL Normal [facility] Comment on above: Performed By: #### A 1C #### [facility] [address] [address] [address] Beth Pineda Cholesterol.total/Cholestero l in HDL [Mass ratio] 1.7 {ratio} Normal [facility] Comment on above: Performed By: #### A 1C #### [facility] [address] [address] [address] Beth Pineda HDL NORMAL > or = 60 mg/dl - LO W CARDIOVASCULAR RISK <40 mg/dl - HIGH CARDIOVASCULAR RISK Normal [facility] Comment on above: Performed By: #### A 1C #### [facility] [address] [address] [address] Beth Pineda LDL CALC NORMAL SEE BELOW Normal [facility] Comment on above: Result Comment: <100 mg/dl OPTIMAL 100 - 129 mg/dl NEAR OR ABOVE OPTIMAL 130 - 159 mg/dl BORDERLINE HIGH 160 - 189 mg/dl HIGH >190 mg/dl VERY HIGH Performed By: #### A 1C #### [facility] [address] [place] [address] Dr. Beth Pineda Triglyceride [Mass/Vol] 37 mg/dL Normal <=150 [facility] Comment on above: Performed By: #### A 1C #### [facility] [address] [address] [address] Beth Pineda VLDL CALC 7.4 mg/dL Normal [facility] Comment on above: Performed By: #### A 1C #### [facility] [address] [place] [address] Dr. Beth Pineda PROF 14(COMP METB)on 023 Albumin [Mass/Vol] 4.3 g/dL Normal 3.4-5.0 [facility] Comment on above: Performed By: #### T SH #### [facility] [address] [address] [address] Beth Pineda Albumin/Globulin [Mass ratio] 1.3 {ratio} Normal [facility] Comment on above: Performed By: #### T SH #### [facility] [address] [place] [address] Dr. Beth Pineda ALP [Catalytic activity/Vol] 68 U/L Normal 46-116 [facility] Comment on above: Performed By: #### T SH #### [facility] [address] [place] [address] Dr. Beth Pineda ALT [Catalytic activity/Vol] 21 U/L Normal 14-59 [facility] Comment on above: Performed By: #### T SH #### [facility] [address] [place] [address] Dr. Beth Pineda Anion gap [Moles/Vol] 12.1 mmol/L Normal [facility] Comment on above: Performed By: #### T SH #### [facility] [address] [place] [address] Dr. Beth Pineda AST [Catalytic activity/Vol] 10 U/L Critically low 15- 37 [facility] Comment on above: Performed By: #### T SH #### [facility] [address] [place] [address] Dr. Beth Pineda Bilirubin [Mass/Vol] 0.6 mg/dL Normal 0.2-1.0 [facility] Comment on above: Performed By: #### T SH #### [facility] [address] [place] [address] Dr. eBth Pineda Calcium [Mass/Vol] 9.2 mg/dL Normal 8.5-10.1 [facility] Comment on above: Performed By: #### T SH #### [facility] [address] [place] [address] Dr. Beth Pineda Chloride [Moles/Vol] 103 mmol/L Normal 98-107 [facility] Comment on above: Performed By: #### T SH #### [facility] [address] [address] [address] Beth Pineda CO2 [Moles/Vol] 28.0 mmol/L Normal 21.0-32.0 [facility] Comment on above: Performed By: #### T SH #### [facility] [address] [address] [address] Beth Pineda Creatinine [Mass/Vol] 0.73 mg/dL Normal 0.55-1.02 [facility] Comment on above: Performed By: #### T SH #### [facility] [address] [address] [address] Beth Pineda EGFR-AF MARTINIQUAIS >60 Normal >=60 [facility] Comment on above: Performed By: #### T SH #### [facility] [address] [place] [address] Dr. Beth Pineda EGFR-NON AF MARTINIQUAIS >60 Normal >=60 [facility] Comment on above: Performed By: #### T SH #### [facility] [address] [address] [address] Beth Pineda Globulin (S) [Mass/Vol] 3.2 g/dL Normal [facility] Comment on above: Performed By: #### T SH #### [facility] [address] [place] [address] Dr. Beth Pineda Glucose [Mass/Vol] 89 mg/dL Normal 74-106 [facility] Comment on above: Performed By: #### T SH #### [facility] [address] [place] [address] Dr. Beth Pineda Potassium [Moles/Vol] 4.1 mmol/L Normal 3.5-5.1 [facility] Comment on above: Performed By: #### T SH #### [facility] [address] [place] [address] Dr. Beth Pineda Protein [Mass/Vol] 7.5 g/dL Normal 6.4-8.2 [facility] Comment on above: Performed By: #### T SH #### [facility] [address] [place] [address] Dr. Beth Pineda Sodium [Moles/Vol] 139 mmol/L Normal 136-145 [facility] Comment on above: Performed By: #### T SH #### [facility] [address] [place] [address] Dr. Beth Pineda Urea nitrogen [Mass/Vol] 10.0 mg/dL Normal 7.0-18.0 [facility] Comment on above: Performed By: #### T SH #### [facility] [address] [place] [address] Dr. Beth Pineda Urea nitrogen/Creatinine [Mass ratio] 13.7 mg/mg Normal [facility] Comment on above: Performed By: #### T SH #### [facility] [address] [place] [address] Dr. Beth Pineda TSHon 12-31-2022 TSH 3.121 uIU/mL Normal 0.358-3.740 [facility] Comment on above: Performed By: #### A 1C #### [facility] [address] [place] [address] Dr. Beth Pineda Blood Urea Nitrogenon 2021 Urea nitrogen [Mass/Vol] 13 mg/dL Normal 9-23 [facility] Comment on above: Order Comment: STAT FOR CT Performed By: #### B FELICIA NEVAREZ ####[facility] [id number] chest w conon 10-10-2022 CT chest w con [facility] Main [place] [address] [place] [address] CT Scan Report Signed Patient: Ailyn Resendiz MR#: [id number] : 1995 Acct:[id number] Age/Sex: 27 / F ADM Date: 10/10/22 Loc: Room: [facility] Attending Dr: Amanda Rosario MD Copies to: MD Ale Gillespie APRN Ordering Provider: Ale Malone APRN Date of Service: 10/10/22 CT/CT abdomen pelvis w con: restaging ([id number]) CT/CT chest w con: restaging CT abdomen pelvis w con, CT chest w con 10/10/2022 8:45 AM SIGN AND SYMPTOMS: Melanoma, restaging CONTRAST: 90 mL of intravenous Isovue-300 TECHNIQUE: Multidetector CT axial slices of the chest, abdomen and pelvis were obtainedwith IV contrast. Multiplanar reformats were performed and viewed on a separate workstation and reviewed to further define anatomy and possible pathology. CT was performed with one or more of the following dose reduction techniques: Automated exposure control, adjustment of the mA and/or kV according to patient size, or use of iterative reconstruction technique. COMPARISON: 04/01/2022. FINDINGS: Lower neck: Thyroid gland within normal limits, no supraclavicle adenopathy. Vessels: Within normal limits. Mediastinum and Uma: Within normal limits. Heart: Normal size. No pericardial effusion. Airways: Within normal limits Lungs: There is a similar 5 mm noncalcified nodule in the left lower lobe showing no significant interval change. Pleura: Within normal limits. Chest Wall: Within normal limits. Abdomen: Liver: Similar subcentimeter cyst are noted in the right hepatic lobe showing no significant interval change. Bile Ducts: Normal caliber. Gallbladder: No calcified gallstones. Normal caliber wall. Pancreas: within normal limits. Spleen: within normal limits. Adrenals: within normal limits. Kidneys: There is a simple cyst in the right renal cortex requiring no further follow-up. Pelvis: Reproductive Organs: No pelvic masses. Ureters: within normal limits. Bladder: within normal limits. Bowel: Normal caliber. There is a normal appendix in the right lower quadrant. Mesenteric Lymph Nodes: No enlarged mesenteric lymph nodes. Peritoneum: No ascites or free air, no fluid collection. Vessels: within normal limits. Retroperitoneum: within normal limits. Abdominal Wall: within normal limits. Bones: Their is a levoconvex curvature of the thoracolumbar spine. CT/CT abdomen pelvis w con IMPRESSION: No new evidence of metastatic disease. There is a similar 5 mm noncalcified nodule in the left lower lobe showing no significant interval change. Similar subcentimeter cyst are noted in the right hepatic lobe showing no significant interval change. There is a simple cyst in the right renal cortex requiring no further follow-up. Impression dictated by: Thony Lopes M.D.10/10/2022 1:20 PM Dictation Location: [place] [address] Transcribed By: LEOPOLDO 10/10/22 1320 Dictated By: Thony Lopes II, MD 10/10/22 1306 Signed By: 10/10/22 1320 [facility] Creatinineon 10-10-2022 Creatinine [Mass/Vol] 0.73 mg/dL Normal 0.44-1.03 [facility] Comment on above: Order Comment: STAT FOR CT Performed By: #### B UN, CREAT ####[place] [id number] [facility] [address] [facility] Comment on above: Order Comment: STAT FOR CT Result Comment: PERF ORMED BY: [facility] [address] [place] [address] PATHOLOGIST MARKET CONSULTANT RUSS DAVIS M.D. Performed By: #### B UN, CREAT ####[address] Estimated GFR ( Parul > [address] [facility] Comment on above: Order Comment: STAT FOR CT Result Comment: GFR estimated reference range: According to KDOQI guidelines, <60 ml/min/1.73m2 is sufficient to diagnose a patient with chronic kidney disease. Performed By: #### B UN, CREAT ####[address] Estimated GFR (Non- Am > [address] [facility] Comment on above: Order Comment: STAT FOR CT Performed By: #### B UN, CREAT ####[address] Albumin [Mass/volume] in Ser um or PlasmaOrdered By: Amanda Rosario on 07-08-2022 Albumin [Mass/Vol] 3.9 g/dL 3.2-5.5 [facility] Basophils Auto (Bld) [#/Vol] Ordered By: Amanda Rosario on 07-08-2022 Basophils (Bld) [#/Vol] 0.1 10*3/uL 0.0-0.2 [facility] Basophils/100 WBC Auto (Bld) Ordered By: Amanda Rosario on 07-08-2022 Basophils/100 WBC (Bld) 1.3 % . [facility] Blood hemoglobin measurement (mass/volume)Ordered By: Amanda Rosario on 07-08-2022 Hemoglobin (Bld) [Mass/Vol] 14.2 g/dL 11.8-15. 4 [facility] Blood leukocytes automated c ount (number/volume)Ordered By: Amanda Rosario on 07-08-2022 WBC (Bld) [#/Vol] 5.6 10*3/uL 4.5-11.[address] [facility] [address] biopsyOrdered By: Amanda Nino se on 07-08-2022 Transferrin [Mass/Vol] 346 mg/dL 180-380 [facility] Creatinine and Glomerular fi ltration rate.predicted panel (S/P/Bld)Ordered By: Amanda Rosario on 07-08-2022 Creatinine [Mass/Vol] 0.78 mg/dL 0.44-1.03 [facility] Eosinophils Auto (Bld) [#/Vo l]Ordered By: Amanda Rosario on 07-08-2022 Eosinophils (Bld) [#/Vol] 0.1 10*3/uL 0.0-0.45 [facility] Eosinophils/100 WBC Auto (Bl d)Ordered By: Amanda Rosario on 07-08-2022 Eosinophils/100 WBC (Bld) 1.2 % . [facility] Erythrocyte distribution wid th Auto (RBC) [Ratio]Ordered By: Amanda Rosario on 07-08-2022 Erythrocyte distribution wid th (RBC) [Ratio] 12.4 % 11.9-15.3 [facility] Estimated glomerular filtrat ion rate (GFR) non- AmericanOrdered By: Amanda Rosario on 07-08-2022 GFR/1.73 sq M.predicted brian g non-blacks MDRD (S/P/Bld) [Vol rate/Area] > 60 mL/Min [facility] Ferritin [Mass/volume] in Se rum or PlasmaOrdered By: Amanda Rosario on 07-08-2022 Ferritin [Mass/Vol] 9.6 ng/mL 11-306.8 [facility] Globulin Calc (S) [Mass/Vol] Ordered By: Amanda Rosario on 07-08-2022 Globulin (S) [Mass/Vol] 2.9 g/dL [facility] Hematocrit Auto (Bld) [Volum e fraction]Ordered By: Amanda Rosario on 07-08-2022 Hematocrit (Bld) [Volume fraction] 42.7 % 3 4.0-46.4 [facility] Iron [Mass/volume] in Serum or PlasmaOrdered By: Amanda Rosario on 07-08-2022 Iron [Mass/Vol] 173 ug/dL 40-150 [facility] Iron binding capacity [Mass/ volume] in Serum or PlasmaOrdered By: Amanda Rosario on 07-08-2022 Iron binding capacity [Mass/Vol] 484 ug/dL 255 -450 [facility] Iron saturation [Mass Fracti on] in Serum or PlasmaOrdered By: Amanda Rosario on 07-08-2022 Iron saturation [Mass fraction] 35.0 % 20-5 0 [facility] Laboratory - Hematology and Cell countsOrdered By: Amanda Rosario on 07-08-2022 Nucleated RBC/100 WBC (Bld) [Ratio] 0.2 % 0-0.5 [facility] Lactate dehydrogenase measur ement (enzymatic activity/volume)Ordered By: Amanda Rosario on 07-08-2022 LDH (Unsp spec) [Catalytic activity/Vol] 154 U/L 45-190 [facility] Lymphocytes Auto (Bld) [#/Vo l]Ordered By: Amanda Rosario on 07-08-2022 Lymphocytes (Bld) [#/Vol] 1.5 10*3/uL 1.00-4.8 [facility] Lymphocytes/100 WBC Auto (Bl d)Ordered By: Amanda Rosario on 07-08-2022 Lymphocytes/100 WBC (Bld) 26.6 % . [facility] MCH Auto (RBC) [Entitic mass ]Ordered By: Amanda Rosario on 07-08-2022 MCH (RBC) [Entitic mass] 29.7 pg 24.7-34.3 [facility] MCHC Auto (RBC) [Mass/Vol]Or dered By: Amanda Rosario on 07-08-2022 MCHC (RBC) [Mass/Vol] 33.3 g/dL 32.0-35.0 [facility] MCV Auto (RBC) [Entitic vol] Ordered By: Amanda Rosario on 07-08-2022 MCV (RBC) [Entitic vol] 89.4 fL 80-100 [facility] Monocytes Auto (Bld) [#/Vol] Ordered By: Amanda Rosario on 07-08-2022 Monocytes (Bld) [#/Vol] 0.5 10*3/uL 0.0-0.8 [facility] Monocytes/100 WBC Auto (Bld) Ordered By: Amanda Rosario on 07-08-2022 Monocytes/100 WBC (Bld) 9.7 % . [facility] Neutrophils Auto (Bld) [#/Vo l]Ordered By: Amanda Rosario on 07-08-2022 Neutrophils (Bld) [#/Vol] 3.4 10*3/uL 1.8-7.7 [facility] Neutrophils/100 WBC Auto (Bl d)Ordered By: Amanda Rosario on 07-08-2022 Neutrophils/100 WBC (Bld) 61.2 % . [facility] No Panel InformationOrdered By: Amanda Rosario on 07-08-2022 Adrenocorticotropic Hormone 8.2 pg/mL 7.2-63.3 [facility] Comment on above: ACTH reference inter cruz for samples collected between 7 and 10 AM. Performed at: [facility] [id number] [employer] Admissions Representative: Sai Smalls PhD, Phone: [phone] ACTH reference inter cruz for samples collected between 7 and10 AM.Performed at: [facility] [id number] Director: Sai Smalls PhD, Phone: [phone] Estimated GFR () > 60 mL/Min [facility] Comment on above: GFR estimated refere nce range: According to KDOQI guidelines, <60 ml/min/1.73m2 is sufficient to diagnose a patient with chronic kidney disease. Pharmacy Creatinine Clearance (Chem 111.22 [facility] Total Triiodothyronine 1.68 ng/mL 0.87-1.78 Fi [facility] Platelet mean volume Auto (B ld) [Entitic vol]Ordered By: Amanda Rosario on 07-08-2022 Platelet mean volume (Bld) [Entitic vol] 8.0 fL 6.3-10.7 [facility] Platelets Auto (Bld) [#/Vol] Ordered By: Amanda Rosario on 07-08-2022 Platelets (Bld) [#/Vol] 393 10*3/uL 150-450 [facility] Protein [Mass/volume] in Ser um or PlasmaOrdered By: Amanda Rosario on 07-08-2022 Protein [Mass/Vol] 6.8 g/dL 6.1-7.9 [facility] RBC Auto (Bld) [#/Vol]Ordere d By: Amanda Rosario on 07-08-2022 RBC (Bld) [#/Vol] 4.78 10*6/uL 3.60-5.00 [facility] Random cortisol measurementO rdered By: Amanda Rosario on 07-08-2022 Cortisol [Mass/Vol] 12.6 ug/dL [facility] Comment on above: Reference range: AM 6 - 24 ug/dl PM <10 ug/dl Reference range: AM 6 - 24 ug/dl PM <10 ug/dl Serum or plasma alanine green otransferase measurement without P-5'-P (enzymatic activiOrdered By: Amanda Rosario on 07-08-2022 ALT No additional P-5'-P [Ca talytic activity/Vol] 17 U/L 10-60 [facility] Serum or plasma albumin/glob ulin mass ratioOrdered By: Amanda Rosario on 07-08-2022 Albumin/Globulin [Mass ratio] 1.3 {ratio} [facility] Serum or plasma alkaline mando sphatase measurement (enzymatic activity/volume)Ordered By: Amanda Rosario on 07-08-2022 ALP [Catalytic activity/Vol] 52 U/L 32-92 [facility] Serum or plasma aspartate am inotransferase measurement (enzymatic activity/volume)Ordered By: Amanda Rosario on 07-08-2022 AST [Catalytic activity/Vol] 22 U/L 10-42 [facility] Serum or plasma calcium saritha urement (mass/volume)Ordered By: Amanda Rosario on 07-08-2022 Calcium [Mass/Vol] 9.3 mg/dL 8.2-10.2 [facility] Serum or plasma chloride obi surement (moles/volume)Ordered By: Amanda Rosario on 07-08-2022 Chloride [Moles/Vol] 104 mmol/L 95-114 [facility] Serum or plasma glucose saritha urement (mass/volume)Ordered By: Amanda Rosario on 07-08-2022 Glucose [Mass/Vol] 83 mg/dL 70-100 [facility] Comment on above: ADA recommended refe rence range Random Glucose Reference Range is dependent on time and content of last meal. Glucose of more than 200 mg/dL in a nonstressed, ambulatory subject supports the diagnosis of Diabetes Mellitus. Serum or plasma potassium me asurement (moles/volume)Ordered By: Amanda Rosario on 07-08-2022 Potassium [Moles/Vol] 4.3 mmol/L 3.5-5.1 [facility] Serum or plasma sodium measu rement (moles/volume)Ordered By: Amanda Rosario on 07-08-2022 Sodium [Moles/Vol] 134 mmol/L 136-146 [facility] Serum or plasma thyroxine (T 4) measurement (mass/volume)Ordered By: Amanda Rosario on 07-08-2022 T4 [Mass/Vol] 11.18 ug/dL 5.39-11.82 [facility] Serum or plasma total biliru bin measurement (mass/volume)Ordered By: Amanda Rosario on 07-08-2022 Bilirubin [Mass/Vol] 0.7 mg/dL 0.3-1.2 [facility] Serum or plasma total carbon dioxide measurement (moles/volume)Ordered By: Amanda Rosario on 07-08-2022 CO2 [Moles/Vol] 22.2 mmol/L 22.0-30.0 [facility] Serum or plasma urea nitroge n measurement (mass/volume)Ordered By: Amanda Rosario on 07-08-2022 Urea nitrogen [Mass/Vol] 9 mg/dL 9-23 [facility] TSH DL <= 0.005 mIU/L QnOrde red By: Amanda Rosario on 07-08-2022 TSH Qn 1.69 m[IU]/L 0.45-5.33 [facility] CHLAMYDIA/GONOCOCCUS PARMINDER (SW AB/URINE/PAPon 06-19-2022 Chlamydia trachomatis, PARMINDER Negative Normal Negative [facility] Comment on above: Performed By: #### T SH #### [facility] [address] [address] [address] Beth Pineda Neisseria gonorrhoeae, PARMINDER Negative Normal Negative [facility] Comment on above: Performed By: #### T SH #### [facility] [address] [address] [address] Beth Pineda VAGINITIS/VAGINOSIS DNA PROB Kaden 06-18-2022 Anh species Negative Normal Negative [facility] Comment on above: Performed By: #### T SH #### [facility] [address] [address] [address] Beth Pineda Gardnerella vaginalis Negative Normal Negative [facility] Comment on above: Performed By: #### T SH #### [facility] [address] [address] [address] Beth Pineda Trichomonas vaginalis Negative Normal Negative [facility] Comment on above: Performed By: #### T SH #### [facility] [address] [address] [address] Beth Pineda Creatinine [Mass/volume] in UrineOrdered By: Amanda Rosario on 05-23-2022 Creatinine (U) [Mass/Vol] 26.2 mg/dL [facility] Comment on above: No reference range e stablished Laboratory - Chemistry and C hemistry - challengeOrdered By: Amanda Rosario on 05-23-2022 Lipase [Catalytic activity/Vol] 32.0 U/L 22-5 1 [facility] Protein [Mass/volume] in Uri neOrdered By: Amanda Rosario on 05-23-2022 Protein (U) [Mass/Vol] mg/dL 0-9 Fi [facility] Thyroxine (T4) free [Mass/vo lume] in Serum or PlasmaOrdered By: Amanda Rosario on 05-23-2022 Free T4 [Mass/Vol] 0.88 ng/dL 0.61-1.12 [facility] Bilirubin Test strip Ql (U)O rdered By: Amanda Rosario on 10-30-2021 Bilirubin Ql (U) Negative Negative [facility] Color Auto (U)Ordered By: Ira Rosario on 10-30-2021 Color (U) Yellow Yellow [facility] Ketones Auto test strip (U) [Mass/Vol]Ordered By: Amanda Rosario on 10-30-2021 Ketones (U) [Mass/Vol] Negative Negative [facility] Nitrite Test strip Ql (U)Ord ered By: Amanda Rosario on 10-30-2021 Nitrite Ql (U) Negative Negative [facility] Protein Auto test strip (U) [Mass/Vol]Ordered By: Amanda Rosario on 10-30-2021 Protein (U) [Mass/Vol] Negative Negative [facility] Specific gravity Auto test s trip (U) [Rel density]Ordered By: Amanda Rosario on 10-30-2021 Specific gravity (U) [Rel density] 1.008 1.001-1.030 [facility] Urine clarity by refractomet ry automatedOrdered By: Amanda Rosario on 10-30-2021 Clarity Refractometry automated (U) Clear Clear [facility] Urine glucose measurement by automated test strip (mass/volume)Ordered By: Amanda Rosario on 10-30-2021 Glucose Auto test strip (U) [Mass/Vol] Normal mg/dL Normal [facility] Urine hemoglobin detection b y automated test stripOrdered By: Amanda Rosario on 10-30-2021 Hemoglobin Auto test strip Ql (U) Negative Ne gative [facility] Urine leukocyte esterase det ection by automated test stripOrdered By: Amanda Rosario on 10-30-2021 Leukocyte esterase Auto test strip Ql (U) Negative Negative [facility] Urobilinogen Auto test strip (U) [Mass/Vol]Ordered By: Amanda Rosario on 10-30-2021 Urobilinogen (U) [Mass/Vol] Normal mg/dL Normal [facility] pH Auto test strip (U)Ordere d By: Amanda Rosario on 12-08-2021 pH (U) 5.5 [pH] 5.0-9.0 [facility] Lab Reportson 07-31-2021 Lab Reports [id number] D:127 Normal [facility] RAD - MISCon 07-31-2021 RAD - MISC [id number] :127 Normal [facility] HCG ( test) IA.rapi d Ql (U)Ordered By: Amanda Rosario on 07-09-2021 HCG ( test) Ql (U) Negative [facility] Glucose Glucometer (BldC) [M ass/Vol]Ordered By: Amanda Rosario on 07-01-2021 Glucose [Mass/Vol] 82 mg/dL [facility] Comment on above: Random Glucose Refer ence Range is dependent on time and content of last meal. Glucose of more than 200 mg/dL in a nonstressed, ambulatory subject supports the diagnosis of Diabetes Mellitus. 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 Will follow up with the pathology report once this is resulted Dictation software was used in the creation of this note and not corrected for typographical or grammatical errors Chief Complaint Postop History of Present Eyqkxiz21-uxgm-qwa woman who underwent wide excision right posterior calf melanoma with Preston flap reconstruction as well as right inguinal and iliac sentinel lymph node biopsy on 05/17/2021. Pathology report has not yet resulted. She is recovering well. Active Problems Malignant melanoma of lower leg, right (172.7) (C43.71) Allergies No Known Drug Allergies Recorded By: Florence Fernando; 05/30/2021 2:49:13 PM Vitals Vital Signs Recorded: [id number] 02:47PM Iukamyiukbj75 C, Temporal Heart Pwws639 Vvglrukktpu51 Atzndcnf866, RUE, Sitting Jlmkilfmh76, RUE, Sitting Blood Pressure Cuff SizeAdult Feeytn934 cm Eyjavz79.6 kg BMI Ufretqwhms85.58 kg/m2 BSA Calculated1.77 O2 Pohjqvqkoz62 Pain Scale0 Physical Exam Right groin wounds above and below the inguinal crease are both healing well without evidence of infection or seroma Right lower leg incision healing well without infection or skin separation. There is some bruising noted around the flap but no flap ischemia Signatures Electronically signed by : Sarah Nevarez MD; May 30 2021 3:18PM EST (Author) [facility] Dermatopathology Name MOISES KANG Pathologist: ANUJA OLIVO MD Date of Procedure: 05/17/2021 Date Received: 05/21/2021 Date Reported 06/17/2021 Submitting Physician: SARAH NEVAREZ MD Location: Other External # Case is Amended FINAL DIAGNOSIS A. NODE, RIGHT SUPERFICIAL INGUINAL SENTINEL LYMPH NODE, BIOPSY: BENIGN LYMPH NODE (0/) (SEE COMMENT): Comment: Immunostains for HMB45, Melan-A, and SOX-10 (controls appropriate) are negative for malignancy. B. NODE, RIGHT INGUINAL SENTINEL LYMPH NODE #2, BIOPSY: METASTATIC MALIGNANT MELANOMA WITHOUT EXTRACAPSULAR EXTENSION (11/23) (SEE COMMENT): Comment: A SOX-10 immunostain (control appropriate) highlights a small subcapsular collection of atypical melanocytes (0.03 mm deposit). These were compared to the original melanoma (OD29-504) and are consistent with a metastatic focus of malignant melanoma. The HMB45 and Melan-A immunostains (controls appropriate) are negative. This case has been amended. At the request of the pathologist, 0.3mm was changed to 0.03mm. The diagnosis is unchanged. C. NODE, RIGHT ILIAC SENTINEL LYMPH NODE, BIOPSY: BENIGN LYMPH NODE (0/1) (SEE COMMENT): Comment: Immunostains for HMB45, Melan-A, and SOX-10 (controls appropriate) are negative for definitive malignancy. There are rare small intraparenchymal SOX-10 cells that were compared to the original melanoma (TJ91-973) and are smaller with less cytoplasm compared to the original melanoma. D. SKIN, RIGHT POSTERIOR LOWER LEG LONG LATERAL SHORT SUPERIOR, EXCISION: ULCER AND REACTIVE EPIDERMAL AND DERMAL CHANGES, CONSISTENT WITH PRIOR PROCEDURE SITE WITHOUT RESIDUAL MELANOMA IDENTIFIED, INKED MARGINS FREE IN THESE PLANES OF SECTION (SEE COMMENT): Comment: Deeper additional sections fail to reveal additional findings on block D3. Electronically Signed Out by ANUJA OLIVO MD. Note One or more of the reagents used to perform assays on this specimen MAY have contained components considered to be analyte specific reagents (ASR's). ASR's have not been cleared or approved by the U.S. Food and Drug Administration. These assays were developed and their performance characteristics determined by the Department of Pathology at [facility]. The FDA does not require this test to go through premarket FDA review. This test is used for clinical purposes. It should not be regarded as investigational or for research. This laboratory is certified under the Clinical Laboratory Improvement Amendments (CLIA) as qualified to perform high complexity clinical laboratory testing. The assays were performed with appropriate positive and negative controls which stained appropriately. Electronically Signed Out By ANUJA OLIVO MD/BRR By the signature on this report, the individual or group listed as making the Final Interpretation/Diagnosis certifies that they have reviewed this case. Amendment Comments: Amended: 06/14/2021 Reason: Typographical Error At the request of the pathologist, the comment for part B was was changed from 0.3 mm to 0.03mm . See note to the end of the final diagnosis. Previous Signout Date: 06/13/2021 Microscopic Description: A-D. Microscopic examination performed. Clinical History: A: Inguinal sentinel lymph node.Melanoma. Biopsy B: Inguinal sentinal lymph node #2.Melanoma.Biopsy C: Iliac sentinel lymph node. Melanoma. Biopsy D: Long lateral, short superior. Melanoma. (Hospital Outpatient) Specimens Submitted As: A: NODE, RIGHT SUPERFICIAL INGUINAL SENTINEL LYMPH NODE B: NODE, RIGHT INGUINAL SENTINEL LYMPH NODE #2 C: NODE, RIGHT ILIAC SENTINEL LYMPH NODE D: SKIN, RIGHT POSTERIOR LOWER LEG LONG LATERAL SHORT SUPERIOR Gross Description: A: Received in formalin is a landis-yellow irregularly shaped piece of skin measuring 84k96s2sp. The specimen is embedded in toto. B: Received in formalin is a landis-yellow irregularly shaped piece of skin measuring 84o6r3ho. The specimen is embedded in toto. C: Received in formalin is a landis-yellow irregularly shaped piece of skin measuring 30k01f0wq. The specimen is embedded in toto. D: Received in formalin is a landis ellipse of skin measuring [id number], oriented by the surgeon with short stitch on the superior margin (arbitrarily defined as 12 o'clock for the purpose of gross description) and a long stitch on the lateral margin (3 o'clock). The specimen is inked black along the margin from 6 to 12 o'clock and blue along the 12 to 6 o'clock margin. The skin is serially sectioned and submitted in toto in blocks 1-19. Block 1 is at 12 o'clock. ink/05/21/2021 [facility] [place], [place] [address] [place] [address], [facility] [address] Normal [facility] Comment on above: Performed By: #### D #### Dermatopathology HCG,URINEon 05-17-2021 Beta HCG ( test) Ql (U) [facility] Comment on above: Performed By: #### H CGU #### [facility] [address] [place] [address] LYMPH GLANDon 05-17-2021 LYMPH GLAND Patient Name: AILYN KANG STUDY: LYMPH GLAND; 05/17/2021 12:45 pm INDICATION: Malignant melanoma of right posterior leg. COMPARISON: None. ACCESSION NUMBER(S): [id number] ORDERING CLINICIAN: SARAH NEVAREZ TECHNIQUE: DIVISION OF NUCLEAR MEDICINE RADIONUCLIDE SENTINEL LYMPH NODE LYMPHOSCINTIGRAPHY A total of 0.870 millicuries of Tc-99m tilmanocept (LymphFOLUP) was injected intradermally in a circumferential pattern surrounding the patient's right lower extremity melanoma biopsy site. Sequential images were then acquired. SPECT CT images of bilateral upper legs and pelvis were obtained. FINDINGS: There is no increased radiotracer uptake within the right popliteal region. There is a focus of intense radiotracer uptake within right inguinal region at the level of the lesser trochanter likely representing the sentinel lymph node. Additionally, there are foci of increased radiotracer uptake more superiorly within the right inguinal region and further additional foci of increased radiotracer uptake along the right external iliac lymph node chain. Localized SPECT CT images were sent to PACS. IMPRESSION: Successful sentinel lymph node localization within the right inguinal canal at the level of the lesser trochanter as described above. Localized SPECT CT images were sent to PACS. I personally reviewed the images/study and I agree with the resident findings as stated. This study was interpreted at [facility], [place], [place]. Electronically signed by: TAMY LAWTON MD Normal [facility] [address] NM Lymph Glandon 05-17-2021 NM Lymph node Views Normal [facility] Main Work Phone: No Panel Informationon 05-17 [facility] Work Phone: Order Reconciliationon 05-17 Order Reconciliation Page 1 Discharge Reconciliation Document Reconciliation Type: Discharge requested on behalf of Sarah Nevarez (Physician) done by Sarah Nevarez) Discharge - Reconciliation: 17-May-2021 09:43 by: Sarah Nevarez) Home Medications EnteredHOME MEDICATIONS AT DISCHARGE DateReconciliation Comment/ Additional Information Ocella 3 mg-0.03 mg oral tablet 1 tab(s) orally once a day 17-May-2021 09:27 Ocella 3 mg-0.03 mg oral tablet 1 tab(s) orally once a day 17-May-2021 09:27 Ocella 3 mg-0.03 mg oral tablet is continued as Ocella 3 mg-0.03 mg oral tablet Current OrdersDateHOME MEDICATIONS AT DISCHARGE DateReconciliation Comment/ Additional Information ceFAZolin 1 gram IVPB/ Premixed Soln 50 mL (ANCEF)OnceRecommended Infusion Time: 30 minute(s) 15-May-2021 09:51 ceFAZolin 1 gram IVPB/ Premixed Soln 50 mL is not required Home Medications Added During Discharge Reconciliation ibuprofen 600 mg oral tablet 1 tab(s) orally every 6 hours as needed for pain traMADol 50 mg oral tablet 1 tab(s) orally every 4 hours x 4 days PRN pain, Dx: G89.18 All Active Home Medications at time of Discharge Reconciliation: 17-May-2021 09:43 ibuprofen 600 mg oral tablet 1 tab(s) orally every 6 hours as needed for pain Ocella 3 mg-0.03 mg oral tablet 1 tab(s) orally once a day traMADol 50 mg oral tablet 1 tab(s) orally every 4 hours x 4 days PRN pain, Dx: G89.18 Normal [facility] Patient Profile - Preop v2on 05-17-2021 Patient Profile - Preop v2 Profile: Initial Info: How to be AddressedSamantha Spoken Language PreferredEnglish Source of Informationpatient Are you currently using the Personal Electronic Health Record or [employer]no Are you interested in learning more about [employer] for the management of your healthnot at this time Stated Reason for Admissionwide excision melanoma right posterior leg, keystone flap and sentinel lymph node biopsy Primary Contact Name and Numberleigh ann El [phone] Limitations on Visitors/Phone Callsnone Patient Belongingsremains with patient Patient Belongings Remaining with Patientclothing; cell phone/electronics Medications Brought to Hospitalno General Health: Weight in kg63.6 kilogram(s) Weight in wqo888.2 pound(s) Weight Methodstated Height in feet5 feet Height in inches8 inch(es) Height in cm172.7 centimeter(s) Height Methodstated BMI (kg/m2)21.324 square meter Patient or Family Member Reaction to Anesthesianever had anesthesia Blood Avoidance/Restrictionsnone Previous Transfusion Reactionno Health Mgmt: Symptoms/Conditions Managed at [facility] Are You no Are You Currently Breastfeedingno Barriers to Managing Healthnone Relationship/Environ: Living Arrangementshouse Lives Withsignificant other Resource/Environmental Concernsnone Anticipated Transition Toneponset Services Anticipated at Transitionnone Substance: Current or Former Substance Use never: Cigarette/Tobacco, e-Cigarette/Vaping, Street Drugs YES: Alcohol Risk Screens: COVID-19 Screening Completedno exposure or symptoms Travel or ExposureNO travel to International locations in the past 30 days Advance Directive/DNRno Advance Directive Information Givenpatient/family declined During the past month, have you often been bothered by feeling down, depressed or hopelessno During the past month, have you often had little interest or pleasure in doing thingsno Have you had any thoughts of harming anyone elseno Risk Screen Not Applicable/Able to Answerable to be screened In the Past Month: Have you wished you were or could go to sleep and not wake upno In the Past Month: Have you had any actual thoughts of killing yourselfno Lifetime: Have you ever done, started to do, or prepared to do anything to end your lifeno Are you or have you been threatened or abused physically,emotionally or sexually abused by anyoneno Do you feel UNSAFE going back to the place you are livingno Patient is Able to be Assessed for Learningyes Factors Influencing Readiness to Learninterest in learning Factors that Impact Ability to Learnnone Devices/Methods Used to Communicatenone Learning Preferencesverbal instruction; individual instruction; written material Cultural Considerationsnone Developmental Considerationsnone Synagogue Considerationsnone Other learner availableno [place] RiskPatient location auto qualifies him/her for HIGH RISK. Are there any cultural, spiritual, yazidi practices/values/needs that are important for us to knowno Do you want a visit/item from [facility] Would you like your Records Manager/Medical Physics Researcher notifiedno Pain Scalenumerical 0-10 Pain Scale Educationteaching provided Current Pain Level0 = None Acceptable Pain Level3 = Mild Expression of Pain (nonverbal)none Lifestyle Changes/Adaptations in Response to Painno change Barriers to Reporting Painnone Chronic Painno Information Review: Allergies, Home Meds and Significant Events have been Reviewed and Verified with Patient/Familyyes Allergy, Intolerance, Adverse Event: Allergies: No Known Allergies: Active Electronic Signatures: Arabella Luis (ERICK DOWELL) (Signed 17-May-2021 09:34) Authored: Initial Info, General Health, Health Mgmt, Relationship/Environ, Substance, Risk Screens, Additional Information Last Updated: 17-May-2021 09:34 by Arabella Luis (ERICK DOWELL) [facility] Preop Checkliston 05-17-2021 Preop Checklist Preop Checklist: Preop Checklist: Arrival [id number] Arrival Time08:55 Procedure Typewide excision melanoma right posterior leg, keystone flap and sentinel lymph node biopsy Temperature C37.1 degrees C Temperature F98.7 degrees F Heart Rate92 beats per minute Respiratory Rate16 breath per minute Blood Pressure Gmqjmlro603 mm/Hg Blood Pressure Jxrdozcbv10 mm/Hg NPO [id number] 22:00 Allergy Bandno known allergies Consent Signedyes H&P Completeyes Anesthesia Assessment Completedpending EKG Performednot ordered SCD's Appliedyes Denturesnot applicable Prostheticsnot applicable Hearing Aidsnot applicable Valuables Securedleft in patient room phone Glasses / Contactsnot applicable Cardiovascular Assessment: Apicalregular Radial Pulsespalpable Pedal Pulsespalpable Extremitieswarm, well perfused Respiratory Assessment: Respirationsunlabored regular Air Exchangegood, equal Breath Soundsclear Neurological Assessment: Level of Consciousnessalert, oriented Mobilitymoves all extremities Able to Express Selfyes Age Appropriateyes Emotional Statuscalm Skin Assessment: Skin Site(s) with Current Compromisenone Preop Education: Surgical Site Infection Preventionyes Pain Scales and Managementyes Language / Communication: Language / CommunicationEnglish Electronic Signatures: Arabella Luis (RN PRN) (Signed 17-May-2021 09:36) Authored: Preop Checklist Last Updated: 17-May-2021 09:36 by Arablela Luis (RN PRN) Normal [facility] Urine Teston 05-17 HCG ( test) Ql (U) Negative Negative CX-Gfsthpg-Uerly Main Work Phone: Initial Visit (General Surge ry)on 05-02-2021 Initial Visit (General Surgery) Diagnoses/Problems Malignant melanoma of lower leg, right (172.7) (C43.71) *Orders Malignant melanoma of lower leg, right Urine Test; Status:Active - Retrospective By Protocol Authorization; Requested for:02May2021; Perform:Lab Services - Lab To Draw (Non-Blood Test); Due:31Jul2021; Last Updated By:Di Giles; 05/02/2021 3:07:40 PM;Ordered; For:Malignant melanoma of lower leg, right; Ordered By:Sarah Nevarez; Malignant melanoma of lower leg, right (172.7) (C43.71) Patient Discussion/Summary 25-year-old woman with right posterior lower leg melanoma. I discussed wide excision and sentinel lymph node biopsy. Given the location of the lesion and the omental margin required, primary closure will not be possible. We discussed the option of rotation flap versus leaving the wound open with dressing changes and performing a delayed skin graft. We have opted to move forward with rotation flap closure as a single stage surgery. The potential risks and complications of the procedure, including wound infection, wound dehiscence, and seroma, were discussed in detail. The patient agreed to surgery. Informed consent was signed in the office. Surgery will be on 05/17/2021 Dictation software was used in the creation of this note and not corrected for typographical or grammatical errors Chief Complaint Melanoma History of Present [id number] woman referred from [facility] for right lower leg melanoma. Patient has had a longstanding mole which began to elevate and bleed. Biopsy shows malignant melanoma 3.3 mm at least in Breslow thickness with ulceration. Healthy without past medical history No family history of melanoma Review of Systems Constitutional: no fever, no chills, no recent weight gain and no recent weight loss. Eyes: no loss of vision, no discharge from the eyes and no itching of the eyes. ENT: no hearing loss, no neck pain and no hoarseness. Cardiovascular: no chest pain, no palpitations and no lower extremity edema. Respiratory: no dyspnea, no dyspnea during exertion and no cough. Breast: no nipple discharge, no breast mass and no pain in breast. Gastrointestinal: no abdominal pain, no constipation, no heartburn, no vomiting, no blood in stools, bowel movement frequency normal. Genitourinary: no dysuria, no hematuria and no vaginal discharge. Musculoskeletal: no arthralgias, no myalgias and no hernia. Integumentary: skin lesion, but no rashes. Neurological: no headache, no dizziness, no numbness, no tingling and no limb weakness. Psychiatric: no anxiety, no depression and no emotional problems. Endocrine: no heat or cold intolerance and no increased thirst. Hematologic/Lymphatic: no swollen glands, no tendency for easy bleeding and no tendency for easy bruising. All other systems have been reviewed and are negative for complaint. Physical Exam General: Appears well and in no acute distress Psychiatric: Normal mood and affect, alert and oriented Head and neck: No scleral icterus Heart: Pulse exam with regular rate and rhythm Lungs: Normal work of breathing without respiratory distress Abdomen: Benign Back: No costovertebral angle tenderness Extremities: Warm and well-perfused, no edema Neurologic: No focal neurologic deficits Skin: Shave biopsy site scab which is circular measuring approximately 2 cm on the right posterior lower leg Lymph nodes: No palpable lymph nodes in the right popliteal or inguinal basins Signatures Electronically signed by : Sarah Nevarez MD; May 02 2021 4:04PM EST (Author) Normal [facility] Vital Signs Date Time Vital Sign Value Performing Clinician Faci angely 05-22-2023 08:55-0400 Body temperature 97.8 [degF] MD Sarah Nevarez Work Phone: [facility] 05-22-2023 08:55-0400 Body weight 69.85 kg MD Sarah Nevarez Work Phone: [facility] 05-22-2023 08:55-0400 Diastolic blood pressure 68 mm[Hg] MD Sarah Nevarez Work Phone: [facility] 05-22-2023 08:55-0400 Heart rate 79 /min MD Sarah Nevarez Work Phone: [facility] 05-22-2023 08:55-0400 Respiratory rate 16 /min MD Sarah Nevarez Work Phone: [facility] 05-22-2023 08:55-0400 SaO2% (BldA) [Mass fraction] 98 % MD Sarah Nevarez Work Phone: [facility] 05-22-2023 08:55-0400 Systolic blood pressure 108 mm[Hg] MD Sarah Nevarez Work Phone: [facility] 01-21-2023 14:57-0500 Body temperature 97.8 [degF] MD Sarah Nevarez Work Phone: [facility] 01-21-2023 14:57-0500 Body weight 67.2 kg MD Sarah Nevarez Work Phone: [facility] 01-21-2023 14:57-0500 Diastolic blood pressure 79 mm[Hg] MD Sarah Nevarez Work Phone: [facility] 01-21-2023 14:57-0500 Heart rate 72 /min MD Sarah Nevarez Work Phone: [facility] 01-21-2023 14:57-0500 Respiratory rate 16 /min MD Sarah Nevarez Work Phone: [facility] 01-21-2023 14:57-0500 SaO2% (BldA) [Mass fraction] 98 % MD Sarah Nevarez Work Phone: [facility] 01-21-2023 14:57-0500 Systolic blood pressure 119 mm[Hg] MD Sarah Nevarez Work Phone: [facility] 07-08-2022 13:02-0400 Body height 172.72 cm MD Amanda Rosario Work Phone: [facility] 07-08-2022 13:02-0400 Body temperature 98 [degF] MD Amanda Rosario Work Phone: [facility] 07-08-2022 13:02-0400 Body weight 67.81 kg MD Amanda Rosario Work Phone: [facility] 07-08-2022 13:02-0400 Diastolic blood pressure 71 mm[Hg] MD Amanda Rosario Work Phone: [facility] 07-08-2022 13:02-0400 Heart rate 95 /min MD Amanda Rosario Work Phone: [facility] 07-08-2022 13:02-0400 Respiratory rate 20 /min MD Amanda Rosario Work Phone: [facility] 07-08-2022 13:02-0400 SaO2% (BldA) [Mass fraction] 97 % MD Amanda Rosario Work Phone: [facility] 07-08-2022 13:02-0400 Systolic blood pressure 115 mm[Hg] MD Amanda Rosario Work Phone: [facility] 05-30-2021 14:47-0400 Body height 173 cm Price Girard Work Phone: [facility] Main Work Phone: 05-30-2021 14:47-0400 Body mass index (BMI) [Ratio] 21.58 kg/m2 Price Girard Work Phone: GO-Wmrvodp-Rcpgz Main Work Phone: 05-30-2021 14:47-0400 Body surface area Derived from formula 1.77 m2 Price Girard Work Phone: FC-Fepncdy-Zmuwc Main Work Phone: 05-30-2021 14:47-0400 Body temperature 98.6 [degF] Price Girard Work Phone: XS-Qsbasfy-Wmrtc Main Work Phone: 05-30-2021 14:47-0400 Body weight 64.6 kg Price Girard Work Phone: ZH-Agsoqch-Pampx Main Work Phone: 05-30-2021 14:47-0400 Diastolic blood pressure 77 mm[Hg] Price Girard Work Phone: XN-Plhwifj-Lzdkd Main Work Phone: 05-30-2021 14:47-0400 Heart rate 103 /min Price Girard Work Phone: RU-Kqyhlne-Nlucl Main Work Phone: 05-30-2021 14:47-0400 Respiratory rate 16 /min Price Girard Work Phone: QU-Ejazfjn-Dtcle Main Work Phone: 05-30-2021 14:47-0400 SaO2% (BldA) [Mass fraction] 99 % Price Girard Work Phone: DM-Uqtlfzj-Qczhq Main Work Phone: 05-30-2021 14:47-0400 Systolic blood pressure 131 mm[Hg] Price Girard Work Phone: MI-Kolpqrs-Cncig Main Work Phone: 05-30-2021 14:47-0400 0 1 Price Girard Work Phone: GN-Zgzkmju-Nknkc Main Work Phone: Comment on above: [employer] 1995 00:00-0400 >na< [facility] pt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 Encounters Encounter Date Encounter Type Care Provider Facility Start: 10-06-2023 End: 10-06-2023 ambulatory CRUZ JOHNSON Not Available Start: 08-19-2023 ambulatory Sarah Nevarez Facility: [facility] Start: 05-22-2023 End: 05-22-2023 ambulatory MD Sarah Nevarez Work Phone: [facility] Work Phone: Start: 05-22-2023 End: 05-22-2023 Registered Recurring MD Sarah Nevarez Work Phone: [facility] Work Phone: Start: 04-07-2023 End: 04-08-[address] CRUZ JOHNSON . Facility:[facility] Start: 03-13-2023 End: 03-14-[address] CRUZ JOHNSON . Facility:[facility] Start: 02-27-2023 End: 02-28-[address] CRUZ JOHNSON . Facility:[facility] Start: 02-11-2023 End: 02-12-[address] CRUZ JOHNSON . Facility:[facility] Start: 02-09-2023 End: 02-10-[address] CRUZ JOHNSON . Facility:[facility] Start: 01-30-2023 End: 01-31-[address] CRUZ JOHNSON . Facility:[facility] Start: 01-21-2023 End: 01-21-2023 ambulatory MD Sarah Nevarez Work Phone: [facility] Work Phone: Start: 01-21-2023 End: 01-21-2023 Registered Recurring MD [facility] Work Phone: Start: 01-13-2023 End: 01-13-[address] CRUZ JOHNSON . Facility:[facility] Start: 01-01-2023 Encounter for genera l adult medical examination without abnormal findings DR MIKE WAGNER [facility] Start: 12-31-2022 End: 01-01-[address] MIKE WAGNER Facility:[facility] Start: 12-31-2022 End: 01-01-2023 Encounter for general adult medical examination without abnormal findings DR MIKE WAGNER Facility:[facility] Start: 07-08-2022 End: 07-08-2022 Registered Recurring MD Amanda [facility]ario [facility] Start: 06-16-2022 End: 06-16-[address] CRUZ JOHNSON . Facility:[facility] Start: 04-09-[address] AMANDA ROSARIO Facility :[facility] Start: 06-22-2021 Chart Update Price Girard Work Phone[facility] Work Phone: Start: 06-18-2021 [facility] Dept[facility] of D ermatology Start: 05-30-2021 Postop follow up vis it related to original px Price Girard Work Phone: DD-Vwurjkp-Rdvdu Main Work Phone: Procedures Date Procedure Procedure Detail Performing Clinician Start: 01-09-2023 Ultrasonography of limb MD Sarah Nevarez Work Phone: Start: 10-10-2022 Computed tomography of abdomen and pelvis with contrast MD Sarah Nevarez Work Phone: Start: 10-10-2022 CT of thorax with contrast MD Sarah Nevarez Work Phone: Start: 07-08-2022 Ultrasonography of limb MD Amanda Rosario Work Phone: Start: 04-01-2022 Computed tomography of abdomen and pelvis with contrast MD Amanda Rosario Work Phone: Start: 04-01-2022 CT of thorax with contrast MD Amanda Rosario Work Phone: Start: 01-24-2022 Duplex scan of lower limb veins MD Amanda Rosario Work Phone: Start: 12-31-2021 Ultrasonography of limb MD Amanda Rosario Work Phone: Start: 07-01-2021 Positron emission to mography with computed tomography MD Amanda Rosario Work Phone: Start: 06-18-2021 Essence david Plan of Treatment Date Care Activity Detail Author Start: 05-23-2022 [facility] Start: 04-25-2022 [facility] Start: 03-28-2022 [facility] Start: 02-28-2022 [facility] Start: 01-31-2022 [facility] Start: 01-28-2022 [facility] Start: 12-31-2021 [facility] Start: 12-24-2021 [facility] Start: 11-29-2021 [facility] Start: 11-01-2021 [facility] Start: 10-28-2021 [facility] Start: 10-02-2021 End: 10-03-2021 [facility] Start: 09-06-2021 [facility] Start: 09-03-2021 [facility] Start: 08-08-2021 [facility] Start: 07-11-2021 [facility] Adrenocorticotropic hormone measurement [facility] Comprehensive metabo lic 1999 panel - Serum or Plasma [facility] Work Phone: Comprehensive metabo lic 1999 panel - Serum or Plasma [facility] Comprehensive metabo lic 1999 panel - Serum or Plasma [facility] Comprehensive metabo lic 1999 panel - Serum or Plasma [facility] CT Abdomen and Pelvis W contrast IV [facility] Work Phone: CT Abdomen and Pelvis W contrast IV [facility] CT Abdomen and Pelvis W contrast IV [facility] CT Chest W contrast IV [facility] Work Phone: CT Chest W contrast IV [facility] CT Chest W contrast IV [facility] Ferritin [Mass/volum e] in Serum or Plasma [facility] Work Phone: Lactate dehydrogenas e [Enzymatic activity/volume] in Unspecified specimen [facility] Work Phone: Thyrotropin [Units/v olume] in Serum or Plasma [facility] Thyroxine (T4) free [Mass/volume] in Serum or Plasma [facility] Triiodothyronine (T3 ) Free [Mass/volume] in Serum or Plasma [facility] US Extremity [facility] Work Phone: [facility] Immunizations Immunization Date Immunization Notes Care Provider Fa [facility] 1997 pneumococcal conjuga te vaccine, 7 valent [facility] Dept[facility] 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 Payers Date Payer Category Payer Self-pay [id number] 2021 Unknown [id number] 2021 Unknown [id number] 2019 Unknown [id number] 1997 Unknown [id number] 1997 Unknown [id number] 1997 Unknown [id number] 1997 Unknown [id number] 1997 Unknown [id number] 1997 Unknown [id number] 1997 Unknown [id number] 1997 Unknown [id number] 1997 Unknown [id number] [id number] 1997 Unknown [id number] [id number] 1997 Unknown [id number]. [id number] 1959 Unknown [id number] 1959 Unknown [id number] Unknown [facility] Unknown [id number] Social History Date Type Detail Facility Start: 06-18-2021 Dept. of D ermatology Start: 1995 Sex Assigned At Female F [facility] Start: 07-08-2022 End: 08-19-2023 Tobacco smoking status NHIS Never smoked tobacco (finding) [facility] Goals Date Patient Goal Desired Activity /State Clinical Notes 05-14-2021 to 05-23-2023 Note Date & Type Note Facility 05-23-2023 Progress note Note Date/Time May 22, 2023 9:03[facility] at [address] [address] Hem/Onc Follow Up Note - OP Signed Patient: Ailyn Resendiz MR#: [id number] : 1995 Acct:[id number] Age/Sex: 27 / F Type: REG RCR Copies to: MD Mike Ewing MD~ Subjective Date/Time of Service: Date of Service: 05/22/2023 Time of Service: 09:02 Chief Complaint: Patient is here today fora 3 month follow up visit for melanomaand iron deficiency anemia. She has no new concerns. HPI: 05/22/2023: Ailyn is here for 4 month followup and review of exam/labs. Did not have restaging CT CAP because she is now at 18 weeks gestation, first . She sees Dermatology for skin exams, but no new lesions. No issues with . Immunotherapy labs normal. No abnormality at prior widelocal excision right lower leg and no adenopathy on exam. We will order right inguinal US and will followup in 3 months (when she is about 30 weeks gestation with another US at that time for surveillance prior to visit). Moderate complexity to review surveillance plan due to her . 01/21/2023: Ailyn had review of restaging CT CAP by phone with [employer] in October--no evidence of recurrence. Saw dermatology 2 months ago with no new lesions. No pain or swelling at WLE site or right groin. Surveillance US with no change in lymph nodes right inguinal sentinel LN site. Recommend 3 month f/uafter restaging CT CAP with TSH/FT4 added to CBC, CMP, and LDH labs. Low complexity 25 minute followup visit. 07/09/2022: Ailyn is here for survivorship visit and follow-up after completing Nivolumab. She feels well overall. She notes her right lower leg edema seems to be slightly improved. She has some mild constipation from her oral iron, but is very well controlled with stool softeners as needed. Otherwiseshe has no new complaints. Inguinal US was unchanged with normal appearing lymphnodes. Labs are reviewed and stable, her iron saturation has improved to normal,but ferritin a bit low. We will continue to monitor her labs with repeat in 6 months at follow-up. We reviewed her survivorship plan in detail including her diagnosis, staging, treatments, follow-up after treatment and lifestyle changes.She was provided resources as well and all of her questions were answered appropriately. She was given a copy of her plan and will return in 6 months. 04/02/2022: Here for 3 month followup, cycle 10 Nivolumab--no significant changein right leg swelling with prolonged standing. No change of surgical site--has followup in dermatology within the next month. Tolerating immunotherapy well--she did have a brief period of chills and diaphoresis during February Nivolumab infusion with mild persistent fatigue thereafter. We reviewed labs showing normal hemoglobin--low iron saturation 4%, ferritin 14.3. She has not tolerated oral iron well in the past due to dyspepsia. We will coordinate parenteral iron at [facility] per her request. Normal thyroid, cortisol,and CMP labs. Restaging CT CAP shows no recurrence of disease--she may proceed with her last 2 cycles of Nivolumab and I will followup with her in 3 months foringuinal ultrasound and survivorship visit. 01/15/2022: Here for 3 month followup--notes increased swelling right leg when she is on her feet all day--uses compression stocking but feels this is more pronounced recently. No new skin lesions, pain or groin fullness. 12/31/2021 US right inguinal area without recurrence. No immunotherapy related toxicities. Due to lower extremity swelling, I will send doppler US to exclude DVT and we will contact her with results. She will continue monthly Nivolumab (cycle 7)--will send bidirectional imaging (CT CAP) for systemic restaging prior to next f/u in 3 months, sooner prn. 10/03/2021: Patient is here today for follow-up prior to Cycle 4 day 1 adjuvant Nivolumab for Stage III melanoma. Clinically, the patient is doing very well. Notes a couple days of increased fatigue following her infusions; but otherwise denies any significant issues/worsening problems. Specifically denies any cough,shortness of breath, dyspnea on exertion, diarrhea, skin changes, skin rash, eyechanges or new skin lesions. She denies any palpable lymphadenopathy. --She had surveillance ultrasound of the right groin, which was done on 09/23/2021, findings were reported as normal and benign appearing. 07/18/2021: Here for follow-up after cycle 1 day 1 nivolumab 07/11/2021. No infusion reaction and otherwise tolerated well other than mild fatigue. She denies any cough, dyspnea, diarrhea, skin changes, eye changes, or any other newsymptoms. Laboratories reviewed with stable renal and hepatic function. We will follow thyroid and endocrine studies. Her ulceration at the border of her skin graft has significantly improved. Will follow up with her in Septemberrior to restaging right inguinal ultrasound, sooner if new symptoms arise on immunotherapy. PREVIOUS HISTORY: This is a 27 year old female G0, no medical history, who presented with a changing mole of right leg since Nov 2020. Noted this increased in size, becamemore raised, then started bleeding after minor trauma. She was seen by dermatology at [facility] in [place] and underwent a biopsy of the right posterior leg on 04/23/21 showing an ulcerated melanoma, superficial spreading type, Breslow: at least 3.4 mm, invasive melanoma present on the deep and peripheral margins. She was referred to Dr. Sarah Nevarez and underwent WLE with 2 cm margins on 05/17/21, surgical margins clear of malignancy, and right inguinal and iliac SLNB, metastatic malignant melanoma of right inguinal sentinel node without extracapsular extension, largest deposit measured 0.03 mm (11/25). Her case was presented in Cutaneous Oncology tumor board with recommendation for imaging for metastatic staging and discussion of adjuvant immunotherapy. BRAF/NGS status pending. She is healing well after superficial wound infection over WLE site--right groinwell healed and nontender. Baseline MRI brain was performed with no metastatic lesions, but noted to have 5mm downward displacement of cerebellar tonsils possibly consistent with Chiari I malformation. She notes occasional low back pain, but no headaches, dizziness, numbness or muscle weakness. I reviewed her imaging with Dr. Penny--should not require further workup of this in absence of symptoms. Baseline PET/CT ordered today. We reviewed immunotherapy counseling for adjuvant Nivolumab every 4 weeks for 12 cycles. Goal of therapy is to prevent recurrence. Common toxicities were reviewed to include infusion reactions, rashes, fatigue, diarrhea, abnormal thyroid/adrenal/pituitary function. Other toxicities may include pneumonitis, neurologic, hepatic and renal toxicities. The patient signed informed consent and will follow-up as directed. DIAGNOSIS: T3b N1a (Stage III) malignant melanoma right leg--biopsy 05/17/2021 PMH: none, regular menses, LMP one week ago, normal duration. FMH of DNS/MM: Does not endorse Skin: Baseline skin exam: Shave biopsy site scab which is circular measuring approximately 2 cm on the right posterior lower leg Lymphatic: No palpable lymph nodes in the right popliteal or inguinal basins - Summary of Therapies Summary of Therapies: 1. S/p wide local excision right lower leg with SLNB right inguinal lymph nodes05/17/2021 2. Adjuvant Nivolumab commenced: 07/11/2021--05/23/2022 3. Venofer for iron deficiency anemia at [facility] 03/2022 ROS Details: All systems reviewed & no additional complaints except as documented Subjective/ROS - Narrative: CONSTITUTIONAL: Negative for fatigue, negative for fever or night sweats. HEAD AND NECK: Negative for changes in hearing and vision. Negative for mouth ulcers, nasal congestion and nasal drainage. PULMONARY: Negative for chest pain, cough and dyspnea. CARDIOVASCULAR: Negative for claudication and irregular heartbeat/palpitations. GASTROINTESTINAL: Negative for abdominal pain, constipation, decreased appetite,diarrhea, nausea or vomiting. GENITOURINARY: Negative for dysuria and hematuria. 18 weeks gestation with gravid abdomen, no bleeding or cramping. ENDOCRINE: Negative for cold intolerance and heat intolerance. CENTRAL NERVOUS SYSTEM: Negative for gait disturbance and headache. No dizziness, numbness or weakness. PSYCHIATRIC: Negative for anxiety or depression. DERMATOLOGICAL: Negative for pruritus and rash. Healed right lower leg wide local excision with skin graft, no drainage at site. No new lesions right leg or groin. MUSCULOSKELETAL: Negative for low back pain and denies other bone/joint symptoms. Mild right leg swelling with prolonged standing (improving). HEMATOLOGICAL: Negative for bleeding and easy bruising. Negative for history of transfusion or thromboembolic disease ALLERGY: Negative for environmental allergies and food allergies. Mild Nivolumab infusion reaction in February 2022. [facility] - History Attestation statement: The following information was validated with the patient. Source: Old Records Reviewed - Medical History Medical History: Medical History (Last Reviewed 05/23/23 @ 10:52 by Amanda Rosario MD) Anxiety LPRD (laryngopharyngeal reflux disease) Melanoma Orthostatic hypotension - Surgical History Surgical History: Surgical History (Last Reviewed 05/23/23 @ 10:52 by Amanda Rosario MD) H/O melanoma excision right calf History of lymph node biopsy right inguinal and sentinel lymph nodes 05/17/21 - Family History Family History: Family History (Last Reviewed 05/23/23 @ 10:52 by Amanda Rosario MD) Grandparent Breast cancer Heart disease Father Heart disease - Social History Smoking Status: Never smoker Substance Use Type: None Home Medications & Allergies Allergies No Known Allergies Allergy (Verified 05/22/23 08:53) Home Medications alprazolam 0.25 mg tablet (Xanax) 0.25 mg PO DAILY PRN Anxiety 06/18/21 [History Confirmed 05/22/23] LUL-zbnm-CC-omega 3-fat com #1 27 mg-1 mg-300 mg capsule cap PO 01/21/23 [History] Objective - Height/Weight Height/Weight: Height 5 ft 8 in Weight 69.853 kg BSA for Today's Weight 1.81 - Vital Signs Vital Signs: 05/22/23 08:55 Temperature 97.8 F Pulse Rate [Left Brachial] 79 Respiratory Rate 16 Blood Pressure [Left Arm] 108/68 02 Sat by Pulse Oximetry 98 Oxygen Delivery Method Room Air - Distress Screening Distress Screen Results: RN Distress Screening Start: 06/24/21 13:58 Freq: Status: Active Protocol: Document 01/31/22 15:50 AD (Rec: 01/31/22 15:50 AD [id number]) Distress Screening Distress Score: 0 No worry/distress Distress Screening Total 0 Physical Exam Narrative: CONSTITUTIONAL: The patient is in no acute distress. HEAD / FACE: Normocephalic. EYES: Pupils are equal and reactive to light. Conjunctivae and lids are benign in appearance. Ocular movement intact. EARS: Hearing grossly intact. NECK / THYROID: Neck is supple. Thyroid is symmetrical, without thyromegaly, masses or palpable nodules. LYMPHATIC: No palpable cervical, supraclavicular, axillary, or inguinal adenopathy--unchanged firm right inguinal area from prior sentinel LNB. RESPIRATORY: Normal to inspection. Lungs clear to auscultation and percussion. No wheezing, rales, rhonchi or rubs. Normal effort. CARDIOVASCULAR: Regular rate and rhythm. No murmurs, gallops, or rubs. ABDOMEN: Gravid abdomen consistent with dates. Bowel sounds normoactive. Soft, nontender and non-distended. No hepatosplenomegaly. No masses noted. INTEGUMENTARY: The skin is remarkable for healed right lower leg wide local excision/skin graft. No rashes. No new suspicious lesions. Well healed right inguinal incision. MUSCULOSKELETAL: Normal musculature, no joint deformities or abnormalities, normal range of motion for all four extremities. EXTREMITIES: Resolved edema lower right leg, no cyanosis or clubbing. NEUROLOGICAL: Alert and oriented. Cranial nerves intact. No gross motor or sensory deficits. PSYCHIATRIC: No anxiety or evidence of depression. - ECOG Performance Status ECOG Score: 0 Results - Labs Labs: Diagram of Most Recent CBC and CMP 05/20/23 11:10 05/20/23 11:10 Labs - Last 7 Days 05/20/23 11:10: ACTH 10.8 05/20/23 11:10: Free T3 2.91 05/20/23 11:10: PHA Creatinine Clear 154.92, Sodium 136, Potassium 4.2, [id number], Carbon Dioxide 26.1, Anion Gap 10.1, BUN 10, Creatinine 0.56 L, Est GFR (CKD-EPI) > 60.0, Glucose 72, Calcium 8.5 L, Total Bilirubin 0.5, AST 14, ALT 9,Alkaline Phosphatase 52, Total Protein 6.1 L, Albumin 3.8, Globulin 2.3, Albumin/Globulin Ratio 1.7, Free T4 0.86, TSH 3rd Generation 1.31 05/20/23 11:10: Corrected WBC 10.3, Uncorrected WBC Count 10.3, RBC 3.81, Hgb 12.0, Hct 34.7, MCV 91.1, MCH 31.5, MCHC 34.6, RDW 13.1, Plt Count 256, MPV 7.4,Neut % (Auto) 79.8, Lymph % (Auto) 12.8, [place] % (Auto) 6.4, Eos % (Auto) 0.6, Baso % (Auto) 0.4, Nucleat RBC Rel Count 0.2, Neut # (Auto) 8.2 H, Lymph # (Auto) 1.3, [place] # (Auto) 0.7, Eos # (Auto) 0.1, Baso # (Auto) 0.0 - Impressions No new imaging for review--ordered right inguinal ultrasound due to and will contact her with results. Assessment and Plan - TNM Staging Staging: pT3b pN1a (Stage III) malignant melanoma right leg s/p wide local excision 05/17/2021 (1) Malignant melanoma of right lower leg 27 year old female with ulcerated superficial spreading melanoma, Breslow depth 3.4mm now completely resected by WLE and 1 of 3 sentinel lymph nodes showed 0.03mm of involvement of melanoma (pT3b pN1a M0). She is now well healed from wide local excision 05/17/2021 and superficial wound infection. She signed informed consent for Nivolumab immunotherapy 480mg IV every 4 weeks for 12 treatments over nearly one year. We reviewed her baseline staging with whole body PET/CT prior to commencing therapy with cycle 1 day 1 07/11/2021. I sent her imaging to Dr. Nevarez--the only concerning finding was a nonspecific uptake of the left anterior pelvis not correlating to CT lesion. I will continue to follow ultrasounds and may repeat PET/CT in 6 months for bidirectional imaging. 07/11/2021: Cycle 1 day 1 Nivolumab immunotherapy 480 mg IV monthly for 12 cycles. Baseline PET/CT prior to therapy, then inguinal basin ultrasounds every6 months (alternate with bidirectional imaging every 6 months). 07/09/2022: She has completed her year of Nivolumab as of 05/23/2022 without residual toxicity. Most recent US negative for disease 10/03/2021: Patient reports for routine on treatment follow up. Today is Cycle 4Day 1 adjuvant Nivolumab for Stage III melanoma. Clinically, she is doing very well. Reports mild fatigue for a couple of days following treatment; but overall, displays no untoward side effects to immunotherapy. Her labs are unremarkable. No evidence of pituitary dysfunction. She had a right groin ultrasound on 09/23/2021 for surveillance of inguinal lymph nodes and these were reported as normal and benign appearing. 01/15/2022: Now reports 2+ nonpitting edema with standing. No immunotherapy related toxicities. 12/31/2021: Right inguinal ultrasound without new adenopathy, but will send for doppler US right lower extremity to r/o DVT and contact with results. Will send for 6 month bidirectional imaging prior to nextvisit (alternate and extend US to every 6 months). 04/03/2022: Edema in right leg now 1+ with compression stocking. One episode of infusion reaction with February infusion of Nivolumab. No other immunotherapy toxicities. No recurrence by restaging CT Chest/Abdomen/Pelvis. Next f/u 3 months after completing last 2 cycles of Nivolumab. US right groin and survivorship visit in 3 months. 07/09/2022: She has completed her course of Nivolumab and is doing very well overall. Inguinal US ok. We reviewed in detail her survivorship care plan and answered all of her questions appropriately. She was provided a copy of this as well as resource booklets to take home. She remains on oral iron with improvement in her counts so far. We will plan to repeat labs in 6 months at follow-up with repeat right inguinal US. She is in agreement with this plan. 01/21/2023: No new symptoms--edema of right lower leg is resolved--no recurrence by exam or ultrasound for surveillance. Now 8 months from completion of immunotherapy. I recommend continued surveillance--every 6 months by dermatology. She will return in [address] Chest, Abdomen and Pelvis for surveillance. TSH and FT4 with 3 month CBC, CMP, and LDH labs to followup priorimmunotherapy. Low complexity 25 minute followup. 05/22/2023: Now 18 weeks gestation in first --no new findings on skin or lymph node exam. Will follow US right inguinal region only during --ordered today and will contact her with results. No abnormality of immunotherapy labs. Next f/u 3 months (30 weeks gestation) with US prior to visit, sooner if new issues arise. Moderate complexity 30 min to address surveillance during . (2) Iron deficiency anemia Qualifiers: Iron deficiency anemia type: unspecified iron deficiency Qualified Code(s):D50.9 - Iron deficiency anemia, unspecified Recent increased fatigue--hemoglobin normal but increased fatigue with tachycardia. Iron saturation 4% with ferritin 7. [facility] (300[facility] IV x 3 doses) 03/2022 with followup CBC, serum iron profile, and ferritin in one month. Consider GI evaluation for iron deficiency. 07/09/2022: She is doing well on oral iron recommended by her manager meat. She does not plan to have children anytime soon, but discussed with her manager meat the best iron supplementation to be on if she does plan to in the future. She has only mild constipation with the iron that is very well controlled with stool softeners as needed. Labs are improving and we will plan to recheck iron studiesagain in 6 months for further eval. 01/21/2023: Normal hemoglobin with iron saturation 20% and ferritin 13. Continueprenatal vitamin supplementation and may repeat symptomatic iron deficiency anemia with repeat Venofer infusions. 05/22/2023: Hemoglobin 12 during second trimester . Will continue vitamin supplementation with . (3) Edema of right lower extremity Likely due to peripheral venous insufficiency from prior melanoma/skin graft surgery right leg (no evidence of recurrence of melanoma)--no DVT on doppler US 01/24/2022. Continue compression stockings as needed. Improved from prior visits. (4) Second trimester No CT imaging during --next f/u right inguinal US [address] imaging after delivery. (5) Chiari malformation type I Asymptomatic downward displacement of the cerebellar tonsils. I reviewed this with Dr. Penny who did not recommend any further evaluation. No concerning symptoms during immunotherapy, which has now been completed. - Chemo Plan Chemo Plan (Dose, Rate, Freq): Surveillance only now. She completed Nivolumab immunotherapy every 4 weeks for 12 treatments as of 05/23/2022 Number of Cycles: 12 Goal of Treatment: Curative - Time with Patient Time Spent with Patient (Follow Up Visit): 35 minutes - Moderate complexity f/u exam and coordinate surveillance US right inguinal lymph nodes only due to . Coordination of Care & Counseling Time: Greater than 50% of time spent with patient was for coordination of care (as documented) and [id number] counseling of patient and/or family. Dictated By: Amanda Rosario MD DD/ 1 Signed By: <Electronically signed by MD Amanda Rosario> 05/23/23 [id number] [facility] Work Phone: [phone] 762-201703-01-2023 Progress note Author Amanda Rosario [facility] January 21, 2023 8:51pm Note Date/Time January 21, 2023 3:01 pm [facility] [place] [id number] Hem/Onc Follow Up Note - OP Signed Patient: Ailyn Resendiz MR#: [id number] : 1995 Acct:[id number] Age/Sex: 27 / F Type: REG RCR Copies to: MD Mike Ewing MD~ Subjective Date/Time of Service: Date of Service: 01/21/2023 Time of Service: 15:00 Chief Complaint: Patient is here today for a 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 No new concerns HPI: 01/21/2023: Ailyn had review of restaging CT CAP by phone with [employer] in October--no evidence of recurrence. Saw dermatology 2 months ago with no new lesions. No pain or swelling at WLE site or right groin. Surveillance US with no change in lymph nodes right inguinal sentinel LN site. Recommend 3 month f/uafter restaging CT CAP with TSH/FT4 added to CBC, CMP, and LDH labs. Low complexity 25 minute followup visit. 07/09/2022: Ailyn is here for survivorship visit and follow-up after completing Nivolumab. She feels well overall. She notes her right lower leg edema seems to be slightly improved. She has some mild constipation from her oral iron, but is very well controlled with stool softeners as needed. Otherwiserodríguez has no new complaints. Inguinal US was unchanged with normal appearing lymphnodes. Labs are reviewed and stable, her iron saturation has improved to normal,but ferritin a bit low. We will continue to monitor her labs with repeat in 6 months at follow-up. We reviewed her survivorship plan in detail including her diagnosis, staging, treatments, follow-up after treatment and lifestyle changes.She was provided resources as well and all of her questions were answered appropriately. She was given a copy of her plan and will return in 6 months. 04/02/2022: Here for 3 month followup, cycle 10 Nivolumab--no significant changein right leg swelling with prolonged standing. No change of surgical site--has followup in dermatology within the next month. Tolerating immunotherapy well--she did have a brief period of chills and diaphoresis during February Nivolumab infusion with mild persistent fatigue thereafter. We reviewed labs showing normal hemoglobin--low iron saturation 4%, ferritin 14.3. She has not tolerated oral iron well in the past due to dyspepsia. We will coordinate parenteral iron at [facility] per her request. Normal thyroid, cortisol,and CMP labs. Restaging CT CAP shows no recurrence of disease--she may proceed with her last 2 cycles of Nivolumab and I will followup with her in 3 months foringuinal ultrasound and survivorship visit. 01/15/2022: Here for 3 month followup--notes increased swelling right leg when she is on her feet all day--uses compression stocking but feels this is more pronounced recently. No new skin lesions, pain or groin fullness. 12/31/2021 US right inguinal area without recurrence. No immunotherapy related toxicities. Due to lower extremity swelling, I will send doppler US to exclude DVT and we will contact her with results. She will continue monthly Nivolumab (cycle 7)--will send bidirectional imaging (CT CAP) for systemic restaging prior to next f/u in 3 months, sooner prn. 10/03/2021: Patient is here today for follow-up prior to Cycle 4 day 1 adjuvant Nivolumab for Stage III melanoma. Clinically, the patient is doing very well. Notes a couple days of increased fatigue following her infusions; but otherwise denies any significant issues/worsening problems. Specifically denies any cough,shortness of breath, dyspnea on exertion, diarrhea, skin changes, skin rash, eyechanges or new skin lesions. She denies any palpable lymphadenopathy. --She had surveillance ultrasound of the right groin, which was done on 09/23/2021, findings were reported as normal and benign appearing. 07/18/2021: Here for follow-up after cycle 1 day 1 nivolumab 07/11/2021. No infusion reaction and otherwise tolerated well other than mild fatigue. She denies any cough, dyspnea, diarrhea, skin changes, eye changes, or any other newsymptoms. Laboratories reviewed with stable renal and hepatic function. We will follow thyroid and endocrine studies. Her ulceration at the border of her skin graft has significantly improved. Will follow up with her in Septemberrior to restaging right inguinal ultrasound, sooner if new symptoms arise on immunotherapy. PREVIOUS HISTORY: This is a 27 year old female G0, no medical history, who presented with a changing mole of right leg since Nov 2020. Noted this increased in size, becamemore raised, then started bleeding after minor trauma. She was seen by dermatology at [facility] in [place] and underwent a biopsy of the right posterior leg on 04/23/21 showing an ulcerated melanoma, superficial spreading type, Breslow: at least 3.4 mm, invasive melanoma present on the deep and peripheral margins. She was referred to Dr. Sarah Nevarez and underwent WLE with 2 cm margins on 05/17/21, surgical margins clear of malignancy, and right inguinal and iliac SLNB, metastatic malignant melanoma of right inguinal sentinel node without extracapsular extension, largest deposit measured 0.03 mm (1/3). Her case was presented in Cutaneous Oncology tumor board with recommendation for imaging for metastatic staging and discussion of adjuvant immunotherapy. BRAF/NGS status pending. She is healing well after superficial wound infection over WLE site--right groinwell healed and nontender. Baseline MRI brain was performed with no metastatic lesions, but noted to have 5mm downward displacement of cerebellar tonsils possibly consistent with Chiari I malformation. She notes occasional low back pain, but no headaches, dizziness, numbness or muscle weakness. I reviewed her imaging with Dr. Penny--should not require further workup of this in absence of symptoms. Baseline PET/CT ordered today. We reviewed immunotherapy counseling for adjuvant Nivolumab every 4 weeks for 12 cycles. Goal of therapy is to prevent recurrence. Common toxicities were reviewed to include infusion reactions, rashes, fatigue, diarrhea, abnormal thyroid/adrenal/pituitary function. Other toxicities may include pneumonitis, neurologic, hepatic and renal toxicities. The patient signed informed consent and will follow-up as directed. DIAGNOSIS: T3b N1a (Stage III) malignant melanoma right leg PMH: none, regular menses, LMP one week ago, normal duration. FMH of DNS/MM: Does not endorse Skin: Baseline skin exam: Shave biopsy site scab which is circular measuring approximately 2 cm on the right posterior lower leg Lymphatic: No palpable lymph nodes in the right popliteal or inguinal basins - Summary of Therapies Summary of Therapies: 1. S/p wide local excision right lower leg with SLNB right inguinal lymph nodes05/17/2021 2. Adjuvant Nivolumab commenced: 07/11/2021--05/23/2022 3. Venofer for iron deficiency anemia at [facility] 03/2022 ROS Details: All systems reviewed & no additional complaints except as documented Subjective/ROS - Narrative: CONSTITUTIONAL: Negative for fatigue, negative for fever or night sweats. HEAD AND NECK: Negative for changes in hearing and vision. Negative for mouth ulcers, nasal congestion and nasal drainage. PULMONARY: Negative for chest pain, cough and dyspnea. CARDIOVASCULAR: Negative for claudication and irregular heartbeat/palpitations. GASTROINTESTINAL: Negative for abdominal pain, constipation, decreased appetite,diarrhea, nausea or vomiting. GENITOURINARY: Negative for dysuria and hematuria. ENDOCRINE: Negative for cold intolerance and heat intolerance. CENTRAL NERVOUS SYSTEM: Negative for gait disturbance and headache. No dizziness, numbness or weakness. PSYCHIATRIC: Negative for anxiety or depression. DERMATOLOGICAL: Negative for pruritus and rash. Healed right lower leg wide local excision with skin graft, no drainage at site. No new lesions right leg or groin. MUSCULOSKELETAL: Negative for low back pain and denies other bone/joint symptoms. Mild right leg swelling with prolonged standing (improving). HEMATOLOGICAL: Negative for bleeding and easy bruising. Negative for history of transfusion or thromboembolic disease ALLERGY: Negative for environmental allergies and food allergies. Mild Nivolumab infusion reaction in February 2022. PMFSH - History Attestation statement: The following information was validated with the patient. Source: Old Records Reviewed - Medical History Medical History: Medical History (Last Reviewed 01/21/23 @ 20:37 by Amanda Rosario MD) Anxiety LPRD (laryngopharyngeal reflux disease) Melanoma Orthostatic hypotension - Surgical History Surgical History: Surgical History (Last Reviewed 01/21/23 @ 20:37 by Amanda Rosario MD) H/O melanoma excision right calf History of lymph node biopsy right inguinal and sentinel lymph nodes 05/17/21 - Family History Family History: Family History (Last Reviewed 01/21/23 @ 20:37 by Amanda Rosario MD) Grandparent Breast cancer Heart disease Father Heart disease - Social History Smoking Status: Never smoker Substance Use Type: None Home Medications & Allergies Allergies No Known Allergies Allergy (Verified 01/21/23 14:57) Home Medications alprazolam 0.25 mg tablet (Xanax) 0.25 mg PO DAILY PRN Anxiety 06/18/21 [History Confirmed 01/21/23] [id number] 3-fat com #1 27 mg-1 mg-300 mg capsule cap PO 01/21/23 [History] Objective - Height/Weight Height/Weight: Height 5 ft 8 in Weight 67.2 kg BSA for Today's Weight 1.81 - Vital Signs Vital Signs: 01/21/23 14:57 Temperature 97.8 F Pulse Rate [Left Brachial] 72 Respiratory Rate 16 Blood Pressure [Left Arm] 119/79 02 Sat by Pulse Oximetry 98 Oxygen Delivery Method Room Air - Distress Screening Distress Screen Results: RN Distress Screening Start: 06/24/21 13:58 Freq: Status: Active Protocol: Document 01/31/22 15:50 AD (Rec: 01/31/22 15:50 AD [id number]) Distress Screening Distress Score: 0 No worry/distress Distress Screening Total 0 Physical Exam Narrative: CONSTITUTIONAL: The patient is in no acute distress. HEAD / FACE: Normocephalic. EYES: Pupils are equal and reactive to light. Conjunctivae and lids are benign in appearance. Ocular movement intact. EARS: Hearing grossly intact. NECK / THYROID: Neck is supple. Thyroid is symmetrical, without thyromegaly, masses or palpable nodules. LYMPHATIC: No palpable cervical, supraclavicular, axillary, or inguinal adenopathy--unchanged firm right inguinal area from prior sentinel LNB. RESPIRATORY: Normal to inspection. Lungs clear to auscultation and percussion. No wheezing, rales, rhonchi or rubs. Normal effort. CARDIOVASCULAR: Regular rate and rhythm. No murmurs, gallops, or rubs. ABDOMEN: Bowel sounds normoactive. Soft, nontender and non-distended. No hepatosplenomegaly. No masses noted. INTEGUMENTARY: The skin is remarkable for healed right lower leg wide local excision/skin graft. No rashes. No new suspicious lesions. Well healed right inguinal incision. MUSCULOSKELETAL: Normal musculature, no joint deformities or abnormalities, normal range of motion for all four extremities. EXTREMITIES: Resolved edema lower right leg, no cyanosis or clubbing. NEUROLOGICAL: Alert and oriented. Cranial nerves intact. No gross motor or sensory deficits. PSYCHIATRIC: No anxiety or evidence of depression. - ECOG Performance Status ECOG Score: 0 Results - Labs Labs: Diagram of Most Recent CBC and CMP 01/09/23 09:47 01/09/23 09:47 - Impressions Soft tissue ultrasound. Reason for exam: History of malignant melanoma right lower extremity. Follow-up. COMPARISON: Ultrasound 07/08/2022. TECHNIQUE: Grayscale and color Doppler imaging of the right groin was obtained. FINDINGS: 4 benign-appearing lymph nodes are identified involving the right groin, largest measuring 1.6 x 0.4 x 0.7 cm. Similar findings are noted on the prior ultrasound study with largest lymph node 1.4 cm. No sinister-appearing mass or lymph node is seen. No fluid collection is noted. US/US extremity nonvascular Impression: Lymph nodes are seen within the right groin, grossly similar to the prior study. Impression dictated by: Paresh Gilmore Jr., D.O.01/09/2023 12:04 PM Assessment and Plan - TNM Staging Staging: pT3b pN1a (Stage III) malignant melanoma right leg s/p wide local excision 05/17/2021 (1) Malignant melanoma of right lower leg 27 year old female with ulcerated superficial spreading melanoma, Breslow depth 3.4mm now completely resected by WLE and 1 of 3 sentinel lymph nodes showed 0.03mm of involvement of melanoma (pT3b pN1a M0). She is now well healed from wide local excision 05/17/2021 and superficial wound infection. She signed informed consent for Nivolumab immunotherapy 480mg IV every 4 weeks for 12 treatments over nearly one year. We reviewed her baseline staging with whole body PET/CT prior to commencing therapy with cycle 1 day 1 07/11/2021. I sent her imaging to Dr. Nevarez--the only concerning finding was a nonspecific uptake of the left anterior pelvis not correlating to CT lesion. I will continue to follow ultrasounds and may repeat PET/CT in 6 months for bidirectional imaging. 07/11/2021: Cycle 1 day 1 Nivolumab immunotherapy 480 mg IV monthly for 12 cycles. Baseline PET/CT prior to therapy, then inguinal basin ultrasounds every6 months (alternate with bidirectional imaging every 6 months). 07/09/2022: She has completed her year of Nivolumab as of 05/23/2022 without residual toxicity. Most recent US negative for disease 10/03/2021: Patient reports for routine on treatment follow up. Today is Cycle 4Day 1 adjuvant Nivolumab for Stage III melanoma. Clinically, she is doing very well. Reports mild fatigue for a couple of days following treatment; but overall, displays no untoward side effects to immunotherapy. Her labs are unremarkable. No evidence of pituitary dysfunction. She had a right groin ultrasound on 09/23/2021 for surveillance of inguinal lymph nodes and these were reported as normal and benign appearing. 01/15/2022: Now reports 2+ nonpitting edema with standing. No immunotherapy related toxicities. 12/31/2021: Right inguinal ultrasound without new adenopathy, but will send for doppler US right lower extremity to r/o DVT and contact with results. Will send for 6 month bidirectional imaging prior to nextvisit (alternate and extend US to every 6 months). 04/03/2022: Edema in right leg now 1+ with compression stocking. One episode of infusion reaction with February infusion of Nivolumab. No other immunotherapy toxicities. No recurrence by restaging CT Chest/Abdomen/Pelvis. Next f/u 3 months after completing last 2 cycles of Nivolumab. US right groin and survivorship visit in 3 months. 07/09/2022: She has completed her course of Nivolumab and is doing very well overall. Inguinal US ok. We reviewed in detail her survivorship care plan and answered all of her questions appropriately. She was provided a copy of this as well as resource booklets to take home. She remains on oral iron with improvement in her counts so far. We will plan to repeat labs in 6 months at follow-up with repeat right inguinal US. She is in agreement with this plan. 01/21/2023: No new symptoms--edema of right lower leg is resolved--no recurrence by exam or ultrasound for surveillance. Now 8 months from completion of immunotherapy. I recommend continued surveillance--every 6 months by dermatology. She will return in [address] Chest, Abdomen and Pelvis for surveillance. TSH and FT4 with 3 month CBC, CMP, and LDH labs to followup priorimmunotherapy. Low complexity 25 minute followup. (2) Iron deficiency anemia Qualifiers: Iron deficiency anemia type: unspecified iron deficiency Qualified Code(s):D50.9 - Iron deficiency anemia, unspecified Recent increased fatigue--hemoglobin normal but increased fatigue with tachycardia. Iron saturation 4% with ferritin 7. [facility] (300mg IV x 3 doses) 03/2022 with followup CBC, serum iron profile, and ferritin in one month. Consider GI evaluation for iron deficiency. 07/09/2022: She is doing well on oral iron recommended by her manager meat. She does not plan to have children anytime soon, but discussed with her manager meat the best iron supplementation to be on if she does plan to in the future. She has only mild constipation with the iron that is very well controlled with stool softeners as needed. Labs are improving and we will plan to recheck iron studiesagain in 6 months for further eval. 01/21/2023: Normal hemoglobin with iron saturation 20% and ferritin 13. Continueprenatal vitamin supplementation and may repeat symptomatic iron deficiency anemia with repeat Venofer infusions. (3) Edema of right lower extremity Likely due to peripheral venous insufficiency from prior melanoma/skin graft surgery right leg (no evidence of recurrence of melanoma)--no DVT on doppler US 01/24/2022. Continue compression stockings as needed. Improved from prior visits. (4) Chiari malformation type I Asymptomatic downward displacement of the cerebellar tonsils. I reviewed this with Dr. Penny who did not recommend any further evaluation. No concerning symptoms during immunotherapy, which has now been completed. - Chemo Plan Chemo Plan (Dose, Rate, Freq): Surveillance only now. She completed Nivolumab immunotherapy every 4 weeks for 12 treatments as of 05/23/2022 Number of Cycles: 12 Goal of Treatment: Curative - Time with Patient Time Spent with Patient (Follow Up Visit): 25 minutes - Low complexity f/u exam and US right inguinal lymph nodes Coordination of Care & Counseling Time: Greater than 50% of time spent with patient was for coordination of care (as documented) and [id number] counseling of patient and/or family. Dictated By: Amanda Rosario MD DD/ 1500 Signed By: <Electronically signed by MD Amanda Rosario> 01/21/232050 [facility] Work Phone: [phone] Progress note Author Ale Malone [facility] July 09, 2022 1:35pm Note Date/Time July 08, 2022 1: 31pm [facility] [place] [address] Hem/Onc Follow Up Note - OP Signed with Addenda Patient: Ailyn Resendiz MR#: [id number] : 1995 Acct:[id number] Age/Sex: 27 / F Type: REG RCR Copies to: MD Sarah Gillespie MD Marc Naderer, MD~ ADDENDUM1 After discussion with Dr. Rosario, we will have the patient follow-up in 3 months instead of 6, and will plan repeat CT c/a/p prior to that visit. Addendum Dictated By: KIKI Malone Addendum Signed By: 07/09/221334 Addendum Cosigned By: DD/ TD/TT: 07/09/22 Subjective Date/Time of Service: Date of Service: 07/08/2022 Time of Service: 13:31 Chief Complaint: Patient is here for a 3 month follow up/survivorship appt. She has labs and ultrasound for review. No concerns voiced at this time. HPI: 07/09/2022: Ailyn is here for survivorship visit and follow-up after completing Nivolumab. She feels well overall. She notes her right lower leg edema seems to be slightly improved. She has some mild constipation from her oral iron, but is very well controlled with stool softeners as needed. Otherwiserodríguez has no new complaints. Inguinal US was unchanged with normal appearing lymphnodes. Labs are reviewed and stable, her iron saturation has improved to normal,but ferritin a bit low. We will continue to monitor her labs with repeat in 6 months at follow-up. We reviewed her survivorship plan in detail including her diagnosis, staging, treatments, follow-up after treatment and lifestyle changes.She was provided resources as well and all of her questions were answered appropriately. She was given a copy of her plan and will return in 6 months. 04/02/2022: Here for 3 month followup, cycle 10 Nivolumab--no significant changein right leg swelling with prolonged standing. No change of surgical site--has followup in dermatology within the next month. Tolerating immunotherapy well--she did have a brief period of chills and diaphoresis during February Nivolumab infusion with mild persistent fatigue thereafter. We reviewed labs showing normal hemoglobin--low iron saturation 4%, ferritin 14.3. She has not tolerated oral iron well in the past due to dyspepsia. We will coordinate parenteral iron at [facility] per her request. Normal thyroid, cortisol,and CMP labs. Restaging CT CAP shows no recurrence of disease--she may proceed with her last 2 cycles of Nivolumab and I will followup with her in 3 months foringuinal ultrasound and survivorship visit. 01/15/2022: Here for 3 month followup--notes increased swelling right leg when she is on her feet all day--uses compression stocking but feels this is more pronounced recently. No new skin lesions, pain or groin fullness. 12/31/2021 US right inguinal area without recurrence. No immunotherapy related toxicities. Due to lower extremity swelling, I will send doppler US to exclude DVT and we will contact her with results. She will continue monthly Nivolumab (cycle 7)--will send bidirectional imaging (CT CAP) for systemic restaging prior to next f/u in 3 months, sooner prn. 10/03/2021: Patient is here today for follow-up prior to Cycle 4 day 1 adjuvant Nivolumab for Stage III melanoma. Clinically, the patient is doing very well. Notes a couple days of increased fatigue following her infusions; but otherwise denies any significant issues/worsening problems. Specifically denies any cough,shortness of breath, dyspnea on exertion, diarrhea, skin changes, skin rash, eyechanges or new skin lesions. She denies any palpable lymphadenopathy. --She had surveillance ultrasound of the right groin, which was done on 09/23/2021, findings were reported as normal and benign appearing. 07/18/2021: Here for follow-up after cycle 1 day 1 nivolumab 07/11/2021. No infusion reaction and otherwise tolerated well other than mild fatigue. She denies any cough, dyspnea, diarrhea, skin changes, eye changes, or any other newsymptoms. Laboratories reviewed with stable renal and hepatic function. We will follow thyroid and endocrine studies. Her ulceration at the border of her skin graft has significantly improved. Will follow up with her in Septemberrior to restaging right inguinal ultrasound, sooner if new symptoms arise on immunotherapy. PREVIOUS HISTORY: This is a 26 year old female G0, no medical history, who presented with a changing mole of right leg since Nov 2020. Noted this increased in size, becamemore raised, then started bleeding after minor trauma. She was seen by dermatology at [facility] in [place] and underwent a biopsy of the right posterior leg on 04/23/21 showing an ulcerated melanoma, superficial spreading type, Breslow: at least 3.4 mm, invasive melanoma present on the deep and peripheral margins. She was referred to Dr. Sarah Nevarez and underwent WLE with 2 cm margins on 05/17/21, surgical margins clear of malignancy, and right inguinal and iliac SLNB, metastatic malignant melanoma of right inguinal sentinel node without extracapsular extension, largest deposit measured 0.03 mm (11/25). Her case was presented in Cutaneous Oncology tumor board with recommendation for imaging for metastatic staging and discussion of adjuvant immunotherapy. BRAF/NGS status pending. She is healing well after superficial wound infection over WLE site--right groinwell healed and nontender. Baseline MRI brain was performed with no metastatic lesions, but noted to have 5mm downward displacement of cerebellar tonsils possibly consistent with Chiari I malformation. She notes occasional low back pain, but no headaches, dizziness, numbness or muscle weakness. I reviewed her imaging with Dr. Penny--should not require further workup of this in absence of symptoms. Baseline PET/CT ordered today. We reviewed immunotherapy counseling for adjuvant Nivolumab every 4 weeks for 12 cycles. Goal of therapy is to prevent recurrence. Common toxicities were reviewed to include infusion reactions, rashes, fatigue, diarrhea, abnormal thyroid/adrenal/pituitary function. Other toxicities may include pneumonitis, neurologic, hepatic and renal toxicities. The patient signed informed consent and will follow-up as directed. DIAGNOSIS: T3b N1a (Stage III) malignant melanoma right leg PMH: none, regular menses, LMP one week ago, normal duration. FMH of DNS/MM: Does not endorse Skin: Baseline skin exam: Shave biopsy site scab which is circular measuring approximately 2 cm on the right posterior lower leg Lymphatic: No palpable lymph nodes in the right popliteal or inguinal basins - Summary of Therapies Summary of Therapies: 1. S/p wide local excision right lower leg with SLNB right inguinal lymph nodes05/17/2021 2. Adjuvant Nivolumab commenced: 07/11/2021--05/23/2022 ROS Details: All systems reviewed & no additional complaints except as documented PMFSH - Medical History Medical History: Medical History (Last Reviewed 04/03/22 @ 20:44 by Amanda Rosario MD) Anxiety LPRD (laryngopharyngeal reflux disease) Melanoma Orthostatic hypotension - Surgical History Surgical History: Surgical History (Last Reviewed 04/03/22 @ 20:44 by Amanda Rosario MD) H/O melanoma excision right calf History of lymph node biopsy right inguinal and sentinel lymph nodes 05/17/21 - Family History Family History: Family History (Last Reviewed 04/03/22 @ 20:44 by Amanda Rosario MD) Grandparent Breast cancer Heart disease Father Heart disease - Social History Smoking Status: Never smoker Substance Use Type: None Home Medications & Allergies Allergies No Known Allergies Allergy (Verified 07/08/22 13:02) Home Medications alprazolam 0.25 mg tablet (Xanax) 0.25 mg PO DAILY PRN Anxiety 06/18/21 [History Confirmed 07/08/22] multivitamin 1 tab PO DAILY 06/18/21 [History Confirmed 07/08/22] Objective - Height/Weight Height/Weight: Height 5 ft 8 in Weight 67.812 kg BSA for Today's Weight 1.81 - Vital Signs Vital Signs: 07/08/22 13:02 Temperature 98 F Pulse Rate [Left Brachial] 95 H Respiratory Rate 20 Blood Pressure [Left Arm] 115/71 02 Sat by Pulse Oximetry 97 Oxygen Delivery Method Room Air - Distress Screening Distress Screen Results: RN Distress Screening Start: 06/24/21 13:58 Freq: Status: Active Protocol: Document 01/31/22 15:50 AD (Rec: 01/31/22 15:50 AD [id number]) Distress Screening Distress Score: 0 No worry/distress Distress Screening Total 0 Physical Exam Narrative: CONSTITUTIONAL: The patient is in no acute distress. HEAD / FACE: Normocephalic. EYES: Pupils are equal and reactive to light. Conjunctivae and lids are benign in appearance. Ocular movement intact. EARS: Hearing grossly intact. NECK / THYROID: Neck is supple. Thyroid is symmetrical, without thyromegaly, masses or palpable nodules. LYMPHATIC: No palpable cervical, supraclavicular, axillary, or inguinal adenopathy--unchanged firm right inguinal area from prior sentinel LNB. RESPIRATORY: Normal to inspection. Lungs clear to auscultation and percussion. No wheezing, rales, rhonchi or rubs. Normal effort. CARDIOVASCULAR: Regular rate and rhythm. No murmurs, gallops, or rubs. ABDOMEN: Bowel sounds normoactive. Soft, nontender and non-distended. No hepatosplenomegaly. No masses noted. INTEGUMENTARY: The skin is remarkable for healing right lower leg wide local excision/skin graft, no drainage at site. No rashes. No new suspicious lesions. Well healed right inguinal incision. MUSCULOSKELETAL: Normal musculature, no joint deformities or abnormalities, normal range of motion for all four extremities. EXTREMITIES: 1+ nonpitting edema lower right leg without cyanosis or clubbing. NEUROLOGICAL: Alert and oriented. Cranial nerves intact. No gross motor or sensory deficits. PSYCHIATRIC: No anxiety or evidence of depression. Results - Labs Labs: Diagram of Most Recent CBC and CMP 07/08/22 10:30 07/08/22 10:30 Labs - Last 7 Days 07/08/22 10:30: PHA Creatinine Clear 111.22, Sodium 134 L, Potassium 4.3, Chloride 104, Carbon Dioxide 22.2, BUN 9, Creatinine 0.78, Est GFR ( Amer) > 60, Est GFR (Non-Af Amer) > 60, Glucose 83, Calcium 9.3, Iron 173 H, TIBC 484 H, Iron Saturation 35.0, Transferrin 346, Ferritin 9.6 L, Total Bilirubin 0.7, AST 22, ALT 17, Alkaline Phosphatase 52, Lactate Dehydrogenase 154, Total Protein 6.8, Albumin 3.9, Globulin 2.9, Albumin/Globulin Ratio 1.3, Total T4 11.18, Total T3 1.68, TSH 3rd Generation 1.69, Total Cortisol 12.6 07/08/22 10:30: Corrected WBC 5.6, Uncorrected WBC Count 5.6, RBC 4.78, Hgb 14.2, Hct 42.7, MCV 89.4, MCH 29.7, MCHC 33.3, RDW 12.4, Plt Count 393, MPV 8.0,Neut % (Auto) 61.2, Lymph % (Auto) 26.6, [place] % (Auto) 9.7, Eos % (Auto) 1.2, Baso % (Auto) 1.3, Neut # (Auto) 3.4, Lymph # (Auto) 1.5, [place] # (Auto) 0.5, Eos# (Auto) 0.1, Baso # (Auto) 0.1, Nucleated RBC % (auto) 0.2 Assessment and Plan - TNM Staging Staging: pT3b pN1a (Stage III) malignant melanoma right leg s/p wide local excision 05/17/2021 (1) Malignant melanoma of right lower leg 26 year old female with ulcerated superficial spreading melanoma, Breslow depth 3.4mm now completely resected by WLE and 1 of 3 sentinel lymph nodes showed 0.03mm of involvement of melanoma (pT3b pN1a M0). She is now well healed from wide local excision 05/17/2021 and superficial wound infection. She signed informed consent for Nivolumab immunotherapy 480mg IV every 4 weeks for 12 treatments over nearly one year. We reviewed her baseline staging with whole body PET/CT prior to commencing therapy with cycle 1 day 1 07/11/2021. I sent her imaging to Dr. Nevarez--the only concerning finding was a nonspecific uptake of the left anterior pelvis not correlating to CT lesion. I will continue to follow ultrasounds and may repeat PET/CT in 6 months for bidirectional imaging. 10/03/2021: Patient reports for routine on treatment follow up. Today is Cycle 4Day 1 adjuvant Nivolumab for Stage III melanoma. Clinically, she is doing very well. Reports mild fatigue for a couple of days following treatment; but overall, displays no untoward side effects to immunotherapy. Her labs are unremarkable. No evidence of pituitary dysfunction. She had a right groin ultrasound on 09/23/2021 for surveillance of inguinal lymph nodes and these were reported as normal and benign appearing. 01/15/2022: Now reports 2+ nonpitting edema with standing. No immunotherapy related toxicities. 12/31/2021: Right inguinal ultrasound without new adenopathy, but will send for doppler US right lower extremity to r/o DVT and contact with results. Will send for 6 month bidirectional imaging prior to nextvisit (alternate and extend US to every 6 months). 04/03/2022: Edema in right leg now 1+ with compression stocking. One episode of infusion reaction with February infusion of Nivolumab. No other immunotherapy toxicities. No recurrence by restaging CT Chest/Abdomen/Pelvis. Next f/u 3 months after completing last 2 cycles of Nivolumab. US right groin and survivorship visit in 3 months. 07/09/2022: She has completed her course of Nivolumab and is doing very well overall. Inguinal US ok. We reviewed in detail her survivorship care plan and answered all of her questions appropriately. She was provided a copy of this as well as resource booklets to take home. She remains on oral iron with improvement in her counts so far. We will plan to repeat labs in 6 months at follow-up with repeat right inguinal US. She is in agreement with this plan. (2) Iron deficiency anemia Qualifiers: Iron deficiency anemia type: unspecified iron deficiency Qualified Code(s):D50.9 - Iron deficiency anemia, unspecified Recent increased fatigue--hemoglobin normal but increased fatigue with tachycardia. Iron saturation 4% with ferritin 7. Will have Venofer infusions at [facility] (300mg IV x 3 doses) with followup CBC, serum iron profile,and ferritin in one month. Consider GI evaluation for iron deficiency. 07/09/2022: She is doing well on oral iron recommended by her manager meat. She does not plan to have children anytime soon, but discussed with her manager meat the best iron supplementation to be on if she does plan to in the future. She has only mild constipation with the iron that is very well controlled with stool softeners as needed. Labs are improving and we will plan to recheck iron studiesagain in 6 months for further eval. (3) Edema of right lower extremity Likely due to peripheral venous insufficiency from prior melanoma/skin graft surgery right leg (no evidence of recurrence of melanoma)--no DVT on doppler US 01/24/2022. Continue compression stockings as needed. (4) Chiari malformation type I Asymptomatic downward displacement of the cerebellar tonsils. I reviewed this with Dr. Penny who did not recommend any further evaluation. No concerning symptoms during immunotherapy, which has now been completed. (5) Encounter for antineoplastic immunotherapy 07/11/2021: Cycle 1 day 1 Nivolumab immunotherapy 480 mg IV monthly for 12 cycles. Baseline PET/CT prior to therapy, then inguinal basin ultrasounds every6 months (alternate with bidirectional imaging every 6 months). 07/09/2022: She has completed her year of Nivolumab as of 05/23/2022 without residual toxicity. Most recent US negative for disease - Chemo Plan Chemo Plan (Dose, Rate, Freq): Surveillance only now. She has completed Nivolumab immunotherapy every 4 weeks for 12 treatments as of 05/23/2022 Number of Cycles: 12 Goal of Treatment: Curative - Time with Patient Time Spent with Patient (Follow Up Visit): 35 minutes Coordination of Care & Counseling Time: Greater than 50% of time spent with patient was for coordination of care (as documented) and [id number] counseling of patient and/or family. Dictated By: Ale Malone APRN DD/ 1331 Signed By: <Electronically signed by KIKI Malone> 07/09/22 0958 [facility] Work Phone: [phone] 308-496805-12-2022 Progress note Author Amanda Rosario [facility] April 03, 2022 8:56pm Note Date/Time April 02, 2022 8:30p m [facility] at [address] [address] Hem/Onc Follow Up Note - OP Signed Patient: Ailyn Resendiz MR#: [id number] : 1995 Acct:[id number] Age/Sex: 26 / F Type: REG RCR Copies to: MD Mike Ewing MD~ Subjective Date/Time of Service: Date of Service: 04/02/2022 Time of Service: 20:29 Chief Complaint: Patient is here today for 3 month follow up visit for melanoma of RLE. She has labs and extremity ultrasound for review. She states her right foot swellls up after treatment HPI: 04/02/2022: Here for 3 month followup, cycle 10 Nivolumab--no significant changein right leg swelling with prolonged standing. No change of surgical site--has followup in dermatology within the next month. Tolerating immunotherapy well--she did have a brief period of chills and diaphoresis during February Nivolumab infusion with mild persistent fatigue thereafter. We reviewed labs showing normal hemoglobin--low iron saturation 4%, ferritin 14.3. She has not tolerated oral iron well in the past due to dyspepsia. We will coordinate parenteral iron at [facility] per her request. Normal thyroid, cortisol,and CMP labs. Restaging CT CAP shows no recurrence of disease--she may proceed with her last 2 cycles of Nivolumab and I will followup with her in 3 months foringuinal ultrasound and survivorship visit. 01/15/2022: Here for 3 month followup--notes increased swelling right leg when she is on her feet all day--uses compression stocking but feels this is more pronounced recently. No new skin lesions, pain or groin fullness. 12/31/2021 US right inguinal area without recurrence. No immunotherapy related toxicities. Due to lower extremity swelling, I will send doppler US to exclude DVT and we will contact her with results. She will continue monthly Nivolumab (cycle 7)--will send bidirectional imaging (CT CAP) for systemic restaging prior to next f/u in 3 months, sooner prn. 10/03/2021: Patient is here today for follow-up prior to Cycle 4 day 1 adjuvant Nivolumab for Stage III melanoma. Clinically, the patient is doing very well. Notes a couple days of increased fatigue following her infusions; but otherwise denies any significant issues/worsening problems. Specifically denies any cough,shortness of breath, dyspnea on exertion, diarrhea, skin changes, skin rash, eyechanges or new skin lesions. She denies any palpable lymphadenopathy. --She had surveillance ultrasound of the right groin, which was done on 09/23/2021, findings were reported as normal and benign appearing. 07/18/2021: Here for follow-up after cycle 1 day 1 nivolumab 07/11/2021. No infusion reaction and otherwise tolerated well other than mild fatigue. She denies any cough, dyspnea, diarrhea, skin changes, eye changes, or any other newsymptoms. Laboratories reviewed with stable renal and hepatic function. We will follow thyroid and endocrine studies. Her ulceration at the border of her skin graft has significantly improved. Will follow up with her in Septemberrior to restaging right inguinal ultrasound, sooner if new symptoms arise on immunotherapy. PREVIOUS HISTORY: This is a 26 year old female G0, no medical history, who presented with a changing mole of right leg since Nov 2020. Noted this increased in size, becamemore raised, then started bleeding after minor trauma. She was seen by dermatology at [facility] in [place] and underwent a biopsy of the right posterior leg on 04/23/21 showing an ulcerated melanoma, superficial spreading type, Breslow: at least 3.4 mm, invasive melanoma present on the deep and peripheral margins. She was referred to Dr. Sarah Nevarez and underwent WLE with 2 cm margins on 05/17/21, surgical margins clear of malignancy, and right inguinal and iliac SLNB, metastatic malignant melanoma of right inguinal sentinel node without extracapsular extension, largest deposit measured 0.03 mm (1/3). Her case was presented in Cutaneous Oncology tumor board with recommendation for imaging for metastatic staging and discussion of adjuvant immunotherapy. BRAF/NGS status pending. She is healing well after superficial wound infection over WLE site--right groinwell healed and nontender. Baseline MRI brain was performed with no metastatic lesions, but noted to have 5mm downward displacement of cerebellar tonsils possibly consistent with Chiari I malformation. She notes occasional low back pain, but no headaches, dizziness, numbness or muscle weakness. I reviewed her imaging with Dr. Penny--should not require further workup of this in absence of symptoms. Baseline PET/CT ordered today. We reviewed immunotherapy counseling for adjuvant Nivolumab every 4 weeks for 12 cycles. Goal of therapy is to prevent recurrence. Common toxicities were reviewed to include infusion reactions, rashes, fatigue, diarrhea, abnormal thyroid/adrenal/pituitary function. Other toxicities may include pneumonitis, neurologic, hepatic and renal toxicities. The patient signed informed consent and will follow-up as directed. DIAGNOSIS: T3b N1a (Stage III) malignant melanoma right leg PMH: none, regular menses, LMP one week ago, normal duration. FMH of DNS/MM: Does not endorse Skin: Baseline skin exam: Shave biopsy site scab which is circular measuring approximately 2 cm on the right posterior lower leg Lymphatic: No palpable lymph nodes in the right popliteal or inguinal basins - Summary of Therapies Summary of Therapies: 1. S/p wide local excision right lower leg with SLNB right inguinal lymph nodes05/17/2021 2. Adjuvant Nivolumab commenced: 07/11/2021--continue one year course ROS Details: All systems reviewed & no additional complaints except as documented Subjective/ROS - Narrative: CONSTITUTIONAL: Positive for mild fatigue, negative for fever or night sweats. HEAD AND NECK: Negative for changes in hearing and vision. Negative for mouth ulcers, nasal congestion and nasal drainage. PULMONARY: Negative for chest pain, cough and dyspnea. CARDIOVASCULAR: Negative for claudication and irregular heartbeat/palpitations. GASTROINTESTINAL: Negative for abdominal pain, constipation, decreased appetite,diarrhea, nausea or vomiting. GENITOURINARY: Negative for dysuria and hematuria. ENDOCRINE: Negative for cold intolerance and heat intolerance. CENTRAL NERVOUS SYSTEM: Negative for gait disturbance and headache. No dizziness, numbness or weakness. PSYCHIATRIC: Negative for anxiety or depression. DERMATOLOGICAL: Negative for pruritus and rash. Healing right lower leg wide local excision with skin graft, no drainage at site. No new lesions right leg or groin. MUSCULOSKELETAL: Positive for occasional low back pain and denies other bone/joint symptoms. Increased right leg swelling with prolonged standing. HEMATOLOGICAL: Negative for bleeding and easy bruising. Negative for history of transfusion or thromboembolic disease ALLERGY: Negative for environmental allergies and food allergies. Mild Nivolumab infusion reaction in February 2022. PMFSH - History Attestation statement: The following information was validated with the patient. Source: Old Records Reviewed - Medical History Medical History: Medical History (Last Reviewed 04/03/22 @ 20:44 by Amanda Rosario MD) Anxiety LPRD (laryngopharyngeal reflux disease) Melanoma Orthostatic hypotension - Surgical History Surgical History: Surgical History (Last Reviewed 04/03/22 @ 20:44 by Amanda Rosario MD) H/O melanoma excision right calf History of lymph node biopsy right inguinal and sentinel lymph nodes 05/17/21 - Family History Family History: Family History (Last Reviewed 04/03/22 @ 20:44 by Amanda Rosario MD) Grandparent Breast cancer Heart disease Father Heart disease - Social History Smoking Status: Never smoker Substance Use Type: None Home Medications & Allergies Allergies No Known Allergies Allergy (Verified 01/15/22 11:47) Home Medications alprazolam 0.25 mg tablet (Xanax) 0.25 mg PO DAILY PRN 06/18/21 [History Confirmed 01/15/22] multivitamin 1 tab PO DAILY 06/18/21 [History Confirmed 01/15/22] Objective - Height/Weight Height/Weight: Height 5 ft 8 in Weight 67.449 kg BSA for Today's Weight 1.80 - Vital Signs Vital Signs: Mild hypertension/tachycardia--coordinating iron infusions - Distress Screening Distress Screen Results: RN Distress Screening Start: 06/24/21 13:58 Freq: Status: Active Protocol: Document 01/31/22 15:50 AD (Rec: 01/31/22 15:50 AD [id number]) Distress Screening Distress Score: 0 No worry/distress Distress Screening Total 0 Physical Exam Narrative: CONSTITUTIONAL: The patient is in no acute distress. HEAD / FACE: Normocephalic. EYES: Pupils are equal and reactive to light. Conjunctivae and lids are benign in appearance. Ocular movement intact. EARS: Hearing grossly intact. NOSE / MOUTH / THROAT: Nose, mouth, tongue and oropharynx are benign in appearance. No signs of inflammation. NECK / THYROID: Neck is supple. Thyroid is symmetrical, without thyromegaly, masses or palpable nodules. LYMPHATIC: No palpable cervical, supraclavicular, axillary, or inguinal adenopathy--unchanged firm right inguinal area from prior sentinel LNB. RESPIRATORY: Normal to inspection. Lungs clear to auscultation and percussion. No wheezing, rales, rhonchi or rubs. Normal effort. CARDIOVASCULAR: Regular rate and rhythm. No murmurs, gallops, or rubs. VASCULAR: Carotid, radial, femoral and pedal pulses present bilaterally. No bruits. ABDOMEN: Bowel sounds normoactive. Soft, nontender and non-distended. No hepatosplenomegaly. No masses. GENITOURINARY: No CVA tenderness. No suprapubic fullness or tenderness. No groinadenopathy. No evidence of hernias. INTEGUMENTARY: The skin is remarkable for healing right lower leg wide local excision/skin graft, no drainage at site. No rashes. No new suspicious lesions. Well healed right inguinal incision. BACK / SPINE: The back is nontender. MUSCULOSKELETAL: Normal musculature, no joint deformities or abnormalities, normal range of motion for all four extremities. EXTREMITIES: 2+ nonpitting edema lower right leg without cyanosis or clubbing. No Krish sign. NEUROLOGICAL: Alert and oriented. Cranial nerves intact. No gross motor or sensory deficits. PSYCHIATRIC: No anxiety or evidence of depression. - ECOG Performance Status ECOG Score: 1 Results - Labs Labs: Diagram of Most Recent CBC and CMP 03/28/22 11:07 03/28/22 11:07 Labs - Last 7 Days 03/28/22 15:06: Iron 21 L, TIBC 421, Iron Saturation 4.0 L, Transferrin 301, Ferritin 14.3 03/28/22 11:07: ACTH 6.2 L 03/28/22 11:07: PHA Creatinine Clear 115.14, Sodium 136, Potassium 4.1, [id number], Carbon Dioxide 24.5, BUN 9, Creatinine 0.76, Est GFR ( Amer) > 60, Est GFR (Non-Af Amer) > 60, Glucose 85, Calcium 8.8, Total Bilirubin 0.4, AST 25, ALT 20, Alkaline Phosphatase 46, Lactate Dehydrogenase 113, Total Protein 6.4, Albumin 3.5, Globulin 2.9, Albumin/Globulin Ratio 1.2, Free T4 0.86, TSH 3rd Generation 2.49 03/28/22 11:07: Corrected WBC 3.5 L, Uncorrected WBC Count 3.5 L, RBC 4.35, Hgb 13.4, Hct 38.7, MCV 89.1, MCH 30.8, MCHC 34.5, RDW 12.2, Plt Count 255, MPV 8.2,Neut % (Auto) 46.7, Lymph % (Auto) 30.6, [place] % (Auto) 20.8, Eos % (Auto) 0.9, Baso % (Auto) 1.0, Neut # (Auto) 1.6 L, Lymph # (Auto) 1.1, [place] # (Auto) 0.7, Eos # (Auto) 0.0, Baso # (Auto) 0.0, Nucleated RBC % (auto) 0.1 03/28/22 11:07: Ur Random Creatinine 115.4, U Random Total Protein 8 03/28/22 11:07: Lipase 32.0, Total Cortisol 11.5 - Impressions CT chest, abdomen and pelviswithcontrast TECHNIQUE: Axial imaging with 2-D reconstruction. 90 cc of [id number] CT exam was performed using one or more the following dose reduction techniques: Automated exposure control, adjustment of the MA and/or Kv according to patient size, or use of the iterative reconstruction technique. History: Restaging melanoma. COMPARISON: PET/CT imaging 07/01/2021 The thyroid gland is normal. Central airway is patent. Esophagus normal course and caliber. Heart is not enlarged. No pericardial effusion is seen. Nonenlarged mediastinal lymph nodes identified. No hilar mass or adenopathy is seen. No thoracic aortic aneurysm is seen. 6 mm noncalcified nodular density in the lingular segment of the left upper lobeidentified. No infiltrate or congestion identified. No pleural effusion identified. No pneumothorax seen. No chest wall abnormality seen. The bony structures are intact. No hepatic mass or intrahepatic biliary ductal dilatation is identified. Normaldensity of the liver parenchyma identified. No gallbladder abnormalities identified. No biliary duct dilatation identified. There is no splenomegaly or splenic lesion identified. No pancreatic mass or ductal dilatation is identified. The adrenal glands are unremarkable. No nephrolithiasis or obstructive uropathy is identified. The abdominal aorta is normal. No significant retroperitoneal abnormalities identified. The small bowel loops are nondistended. The appendix is normal. There is no colitis or diverticulitis. Urinary bladder is unremarkable. The reproductive structures are unremarkable. No free intraperitoneal air or fluid is identified. The bony structures are unremarkable. No subcutaneous soft tissue abnormality identified. CT/CT chest w con IMPRESSION: Tiny liver hypodensities too small to characterize likely representing small cysts. Small noncalcified lingular segment lung nodule. This may represent benign finding. No additional regions of potential malignant or metastatic disease. Impression dictated by: Ivan Luu M.D.04/01/2022 1:12 PM Assessment and Plan - TNM Staging Staging: pT3b pN1a (Stage III) malignant melanoma right leg s/p wide local excision 05/17/2021 (1) Malignant melanoma of right lower leg 26 year old female with ulcerated superficial spreading melanoma, Breslow depth 3.4mm now completely resected by WLE and 1 of 3 sentinel lymph nodes showed 0.03mm of involvement of melanoma (pT3b pN1a M0). She is now well healed from wide local excision 05/17/2021 and superficial wound infection. She signed informed consent for Nivolumab immunotherapy 480mg IV every 4 weeks for 12 treatments over nearly one year. We reviewed her baseline staging with whole body PET/CT prior to commencing therapy with cycle 1 day 1 07/11/2021. I sent her imaging to Dr. Nevarez--the only concerning finding was a nonspecific uptake of the left anterior pelvis not correlating to CT lesion. I will continue to follow ultrasounds and may repeat PET/CT in 6 months for bidirectional imaging. 10/03/2021: Patient reports for routine on treatment follow up. Today is Cycle 4Day 1 adjuvant Nivolumab for Stage III melanoma. Clinically, she is doing very well. Reports mild fatigue for a couple of days following treatment; but overall, displays no untoward side effects to immunotherapy. Her labs are unremarkable. No evidence of pituitary dysfunction. She had a right groin ultrasound on 09/23/2021 for surveillance of inguinal lymph nodes and these were reported as normal and benign appearing. 01/15/2022: Now reports 2+ nonpitting edema with standing. No immunotherapy related toxicities. 12/31/2021: Right inguinal ultrasound without new adenopathy, but will send for doppler US right lower extremity to r/o DVT and contact with results. Will send for 6 month bidirectional imaging prior to nextvisit (alternate and extend US to every 6 months). 04/03/2022: Edema in right leg now 1+ with compression stocking. One episode of infusion reaction with February infusion of Nivolumab. No other immunotherapy toxicities. No recurrence by restaging CT Chest/Abdomen/Pelvis. Next f/u 3 months after completing last 2 cycles of Nivolumab. US right groin and survivorship visit in 3 months. --Follow up with Dr. Rosario in ~ 3 months; sooner if new issues arise-moderate complexity over 35 minutes. (2) Iron deficiency anemia Qualifiers: Iron deficiency anemia type: unspecified iron deficiency Qualified Code(s):D50.9 - Iron deficiency anemia, unspecified Recent increased fatigue--hemoglobin normal but increased fatigue with tachycardia. Iron saturation 4% with ferritin 7. Will have Venofer infusions at [facility] (300mg IV x 3 doses) with followup CBC, serum iron profile,and ferritin in one month. Consider GI evaluation for iron deficiency. (3) Edema of right lower extremity Likely due to peripheral venous insufficiency from prior melanoma/skin graft surgery right leg (no evidence of recurrence of melanoma)--no DVT on doppler US 01/24/2022. Continue compression stockings as needed. (4) Chiari malformation type I Asymptomatic downward displacement of the cerebellar tonsils. I reviewed this with Dr. Penny who did not recommend any further evaluation. We will follow forany concerning symptoms during immunotherapy. (5) Encounter for antineoplastic immunotherapy 07/11/2021: Cycle 1 day 1 Nivolumab immunotherapy 480 mg IV monthly for 12 cycles. Baseline PET/CT prior to therapy, then inguinal basin ultrasounds every 6 months (alternate with bidirectional imaging every 6 months). - Chemo Plan Chemo Plan (Dose, Rate, Freq): Nivolumab immunotherapy 480mg IV every 4 weeks for 12 treatments over nearly oneyear Number of Cycles: 12 Goal of Treatment: Curative - Time with Patient Time Spent with Patient (Follow Up Visit): 35 minutes Coordination of Care & Counseling Time: Greater than 50% of time spent with patient was for coordination of care (as documented) and [id number] counseling of patient and/or family. Dictated By: Amanda Rosario MD DD/ 28 Signed By: <Electronically signed by MD Amanda Rosario> 04/03/222055 [facility] Work Phone: [phone] Progress note Author Amanda Rosario [facility] January 15, 2022 9:15pm Note Date/Time January 15, 2022 11:55am [facility] [place] [id number] Hem/Onc Follow Up Note - OP Signed Patient: PearlAilyn Nava MR#: [id number] : 1995 Acct:[id number] Age/Sex: 26 / F Type: REG RCR Copies to: MD Mike Ewing MD~ Subjective Date/Time of Service: Date of Service: 01/15/2022 Time of Service: 11:55 Chief Complaint: Patient is here today for 3 month follow up visit for melanoma of RLE. She has labs and extremity ultrasound for review. She states her right foot swellls up after treatment HPI: 01/15/2022: Here for 3 month followup--notes increased swelling right leg when she is on her feet all day--uses compression stocking but feels this is more pronounced recently. No new skin lesions, pain or groin fullness. 12/31/2021 US right inguinal area without recurrence. No immunotherapy related toxicities. Due to lower extremity swelling, I will send doppler US to exclude DVT and we will contact her with results. She will continue monthly Nivolumab (cycle 7)--will send bidirectional imaging (CT CAP) for systemic restaging prior to next f/u in 3 months, sooner prn. 10/03/2021: Patient is here today for follow-up prior to Cycle 4 day 1 adjuvant Nivolumab for Stage III melanoma. Clinically, the patient is doing very well. Notes a couple days of increased fatigue following her infusions; but otherwise denies any significant issues/worsening problems. Specifically denies any cough,shortness of breath, dyspnea on exertion, diarrhea, skin changes, skin rash, eyechanges or new skin lesions. She denies any palpable lymphadenopathy. --She had surveillance ultrasound of the right groin, which was done on 09/23/2021, findings were reported as normal and benign appearing. 07/18/2021: Here for follow-up after cycle 1 day 1 nivolumab 07/11/2021. No infusion reaction and otherwise tolerated well other than mild fatigue. She denies any cough, dyspnea, diarrhea, skin changes, eye changes, or any other newsymptoms. Laboratories reviewed with stable renal and hepatic function. We will follow thyroid and endocrine studies. Her ulceration at the border of her skin graft has significantly improved. Will follow up with her in Septemberrior to restaging right inguinal ultrasound, sooner if new symptoms arise on immunotherapy. PREVIOUS HISTORY: This is a 26 year old female G0, no medical history, who presented with a changing mole of right leg since Nov 2020. Noted this increased in size, becamemore raised, then started bleeding after minor trauma. She was seen by dermatology at [facility] in [place] and underwent a biopsy of the right posterior leg on 04/23/21 showing an ulcerated melanoma, superficial spreading type, Breslow: at least 3.4 mm, invasive melanoma present on the deep and peripheral margins. She was referred to Dr. Sarah Nevarez and underwent WLE with 2 cm margins on 05/17/21, surgical margins clear of malignancy, and right inguinal and iliac SLNB, metastatic malignant melanoma of right inguinal sentinel node without extracapsular extension, largest deposit measured 0.03 mm (11/25). Her case was presented in Cutaneous Oncology tumor board with recommendation for imaging for metastatic staging and discussion of adjuvant immunotherapy. BRAF/NGS status pending. She is healing well after superficial wound infection over WLE site--right groinwell healed and nontender. Baseline MRI brain was performed with no metastatic lesions, but noted to have 5mm downward displacement of cerebellar tonsils possibly consistent with Chiari I malformation. She notes occasional low back pain, but no headaches, dizziness, numbness or muscle weakness. I reviewed her imaging with Dr. Penny--should not require further workup of this in absence of symptoms. Baseline PET/CT ordered today. We reviewed immunotherapy counseling for adjuvant Nivolumab every 4 weeks for 12 cycles. Goal of therapy is to prevent recurrence. Common toxicities were reviewed to include infusion reactions, rashes, fatigue, diarrhea, abnormal thyroid/adrenal/pituitary function. Other toxicities may include pneumonitis, neurologic, hepatic and renal toxicities. The patient signed informed consent and will follow-up as directed. DIAGNOSIS: T3b N1a (Stage III) malignant melanoma right leg PMH: none, regular menses, LMP one week ago, normal duration. FMH of DNS/MM: Does not endorse Skin: Baseline skin exam: Shave biopsy site scab which is circular measuring approximately 2 cm on the right posterior lower leg Lymphatic: No palpable lymph nodes in the right popliteal or inguinal basins - Summary of Therapies Summary of Therapies: 1. S/p wide local excision right lower leg with SLNB right inguinal lymph nodes05/17/2021 2. Adjuvant Nivolumab commenced: 07/11/2021--continue one year course ROS Details: All systems reviewed & no additional complaints except as documented Subjective/ROS - Narrative: CONSTITUTIONAL: Positive for mild fatigue, negative for fever or night sweats. HEAD AND NECK: Negative for changes in hearing and vision. Negative for mouth ulcers, nasal congestion and nasal drainage. PULMONARY: Negative for chest pain, cough and dyspnea. CARDIOVASCULAR: Negative for claudication and irregular heartbeat/palpitations. GASTROINTESTINAL: Negative for abdominal pain, constipation, decreased appetite,diarrhea, nausea or vomiting. GENITOURINARY: Negative for dysuria and hematuria. ENDOCRINE: Negative for cold intolerance and heat intolerance. CENTRAL NERVOUS SYSTEM: Negative for gait disturbance and headache. No dizziness, numbness or weakness. PSYCHIATRIC: Negative for anxiety or depression. DERMATOLOGICAL: Negative for pruritus and rash. Healing right lower leg wide local excision with skin graft, no drainage at site. No new lesions right leg or groin. MUSCULOSKELETAL: Positive for occasional low back pain and denies other bone/joint symptoms. Increased right leg swelling past 2 months with prolonged standing. HEMATOLOGICAL: Negative for bleeding and easy bruising. Negative for history of transfusion or thromboembolic disease ALLERGY: Negative for environmental allergies and food allergies. [facility] - History Attestation statement: The following information was validated with the patient. Source: Old Records Reviewed - Medical History Medical History: Medical History (Last Reviewed 01/15/22 @ 21:07 by Amanda Rosario MD) Anxiety LPRD (laryngopharyngeal reflux disease) Melanoma Orthostatic hypotension - Surgical History Surgical History: Surgical History (Last Reviewed 01/15/22 @ 21:07 by Amanda Rosario MD) H/O melanoma excision right calf History of lymph node biopsy right inguinal and sentinel lymph nodes 05/17/21 - Family History Family History: Family History (Last Reviewed 01/15/22 @ 21:07 by Amanda Rosario MD) Grandparent Breast cancer Heart disease Father Heart disease - Social History Smoking Status: Never smoker Substance Use Type: None Home Medications & Allergies Allergies No Known Allergies Allergy (Verified 01/15/22 11:47) Home Medications alprazolam 0.25 mg tablet (Xanax) 0.25 mg PO DAILY PRN 06/18/21 [History Confirmed 01/15/22] multivitamin 1 tab PO DAILY 06/18/21 [History Confirmed 01/15/22] Objective - Height/Weight Height/Weight: Height 5 ft 8 in Weight 66.678 kg BSA for Today's Weight 1.80 - Vital Signs Vital Signs: 01/15/22 11:48 Temperature 97.9 F Pulse Rate [Left Brachial] 85 Respiratory Rate 16 Blood Pressure [Left Arm] 128/80 02 Sat by Pulse Oximetry 98 - Distress Screening Distress Screen Results: RN Distress Screening Start: 06/24/21 13:58 Freq: Status: Active Protocol: Document 07/11/21 09:30 MR (Rec: 07/11/21 10:19 MR [id number]) Distress Screening Distress Score: 2 Emotional Concerns Nervousness Distress Screening Total 2 Physical Exam Narrative: CONSTITUTIONAL: The patient is in no acute distress. HEAD / FACE: Normocephalic. EYES: Pupils are equal and reactive to light. Conjunctivae and lids are benign in appearance. Ocular movement intact. EARS: Hearing grossly intact. NOSE / MOUTH / THROAT: Nose, mouth, tongue and oropharynx are benign in appearance. No signs of inflammation. NECK / THYROID: Neck is supple. Thyroid is symmetrical, without thyromegaly, masses or palpable nodules. LYMPHATIC: No palpable cervical, supraclavicular, axillary, or inguinal adenopathy--unchanged firm right inguinal area from prior sentinel LNB. RESPIRATORY: Normal to inspection. Lungs clear to auscultation and percussion. No wheezing, rales, rhonchi or rubs. Normal effort. CARDIOVASCULAR: Regular rate and rhythm. No murmurs, gallops, or rubs. VASCULAR: Carotid, radial, femoral and pedal pulses present bilaterally. No bruits. ABDOMEN: Bowel sounds normoactive. Soft, nontender and non-distended. No hepatosplenomegaly. No masses. GENITOURINARY: No CVA tenderness. No suprapubic fullness or tenderness. No groinadenopathy. No evidence of hernias. INTEGUMENTARY: The skin is remarkable for healing right lower leg wide local excision/skin graft, no drainage at site. No rashes. No new suspicious lesions. Well healed right inguinal incision. BACK / SPINE: The back is nontender. MUSCULOSKELETAL: Normal musculature, no joint deformities or abnormalities, normal range of motion for all four extremities. EXTREMITIES: 2+ nonpitting edema lower right leg without cyanosis or clubbing. No Krish sign. NEUROLOGICAL: Alert and oriented. Cranial nerves intact. No gross motor or sensory deficits. PSYCHIATRIC: No anxiety or evidence of depression. - ECOG Performance Status ECOG Score: 0 Results - Labs Labs: Diagram of Most Recent CBC and CMP 12/31/21 09:42 12/31/21 09:42 - Impressions Date of Service: 12/31/21 Exam: Right groin ultrasound. Reason for exam: Restaging melanoma. Lymph node surgery. COMPARISON: Right groin ultrasound 09/23/2021. TECHNIQUE: Grayscale and color Doppler images of the right groin region were obtained. FINDINGS: In the region of the right groin, benign-appearing lymph nodes are identified. No mass or fluid collection is noted. US/US extremity nonvascular IMPRESSION: No ultrasound evidence of mass or fluid collection within the right groin. Benign-appearing lymph nodes. Impression dictated by: Paresh Gilmore Jr., D.O.12/31/2021 1:08 PM Assessment and Plan - TNM Staging Staging: pT3b pN1a (Stage III) malignant melanoma right leg s/p wide local excision 05/17/2021 (1) Malignant melanoma of right lower leg 26 year old female with ulcerated superficial spreading melanoma, Breslow depth 3.4mm now completely resected by WLE and 1 of 3 sentinel lymph nodes showed 0.03mm of involvement of melanoma (pT3b pN1a M0). She is now well healed from wide local excision 05/17/2021 and superficial wound infection. She signed informed consent for Nivolumab immunotherapy 480mg IV every 4 weeks for 12 treatments over nearly one year. We reviewed her baseline staging with whole body PET/CT prior to commencing therapy with cycle 1 day 1 07/11/2021. I sent her imaging to Dr. Nevarez--the only concerning finding was a nonspecific uptake of the left anterior pelvis not correlating to CT lesion. I will continue to follow ultrasounds and may repeat PET/CT in 6 months for bidirectional imaging. 10/03/2021: Patient reports for routine on treatment follow up. Today is Cycle 4Day 1 adjuvant Nivolumab for Stage III melanoma. Clinically, she is doing very well. Reports mild fatigue for a couple of days following treatment; but overall, displays no untoward side effects to immunotherapy. Her labs are unremarkable. No evidence of pituitary dysfunction. She had a right groin ultrasound on 09/23/2021 for surveillance of inguinal lymph nodes and these were reported as normal and benign appearing. 01/15/2022: Now reports 2+ nonpitting edema with standing. No immunotherapy related toxicities. 12/31/2021: Right inguinal ultrasound without new adenopathy, but will send for doppler US right lower extremity to r/o DVT and contact with results. Will send for 6 month bidirectional imaging prior to nextvisit (alternate and extend US to every 6 months). --Follow up with Dr. Rosario in ~ 3 months; sooner if new issues arise-low complexity over 20 minutes. (2) Edema of right lower extremity Likely due to peripheral venous insufficiency from prior melanoma/skin graft surgery right leg (no evidence of recurrence of melanoma) but will send for doppler US to r/o DVT and f/u results by phone. (3) Chiari malformation type I Asymptomatic downward displacement of the cerebellar tonsils. I reviewed this with Dr. Penny who did not recommend any further evaluation. We will follow forany concerning symptoms during immunotherapy. (4) Encounter for antineoplastic immunotherapy 07/11/2021: Cycle 1 day 1 Nivolumab immunotherapy 480 mg IV monthly for 12 cycles. Baseline PET/CT prior to therapy, then inguinal basin ultrasounds every4-6 months (alternate with bidirectional imaging every 6 months). - Chemo Plan Chemo Plan (Dose, Rate, Freq): Nivolumab immunotherapy 480mg IV every 4 weeks for 12 treatments over nearly oneyear Number of Cycles: 12 Goal of Treatment: Curative - Time with Patient Time Spent with Patient (Follow Up Visit): Less than 20 minutes Coordination of Care & Counseling Time: Greater than 50% of time spent with patient was for coordination of care (as documented) and [id number] counseling of patient and/or family. Dictated By: Amanda Rosario MD DD/ [id number] Signed By: <Electronically signed by MD Amanda Rosario> 01/15/22 [address] [facility] Work Phone: [phone] Progress note Author Denia Alvares [facility] October 03, 2021 10:47am Note Date/Time October 03, 2021 10:34am [facility] at [address] [address] Hem/Onc Follow Up Note - OP Signed Patient: Ailyn Kang MR#: [id number] : 1995 Acct:[id number] Age/Sex: 26 / F Type: REG RCR Copies to: MD Price Ewing MD~ Subjective Date/Time of Service: Date of Service: 10/03/2021 Time of Service: 10:25 Chief Complaint: Patient is here today for 3 month follow up visit for malignantmelanoma of right lower leg. HPI: 10/03/2021: Patient is here today for follow-up prior to Cycle 4 day 1 adjuvant Nivolumab for Stage III melanoma. Clinically, the patient is doing very well. Notes a couple days of increased fatigue following her infusions; but otherwise denies any significant issues/worsening problems. Specifically denies any cough,shortness of breath, dyspnea on exertion, diarrhea, skin changes, skin rash, eyechanges or new skin lesions. She denies any palpable lymphadenopathy. She had surveillance ultrasound of the right groin, which was done on 09/23/2021,findings were reported as normal and benign appearing. 07/18/2021: Here for follow-up after cycle 1 day 1 nivolumab 07/11/2021. No infusion reaction and otherwise tolerated well other than mild fatigue. She denies any cough, dyspnea, diarrhea, skin changes, eye changes, or any other newsymptoms. Laboratories reviewed with stable renal and hepatic function. We will follow thyroid and endocrine studies. Her ulceration at the border of her skin graft has significantly improved. Will follow up with her in Septemberrior to restaging right inguinal ultrasound, sooner if new symptoms arise on immunotherapy. PREVIOUS HISTORY: This is a 26 year old female G0, no medical history, who presented with a changing mole of right leg since Nov 2020. Noted this increased in size, becamemore raised, then started bleeding after minor trauma. She was seen by dermatology at [facility] in [place] and underwent a biopsy of the right posterior leg on 04/23/21 showing an ulcerated melanoma, superficial spreading type, Breslow: at least 3.4 mm, invasive melanoma present on the deep and peripheral margins. She was referred to Dr. Sarah Nevarez and underwent WLE with 2 cm margins on 05/17/21, surgical margins clear of malignancy, and right inguinal and iliac SLNB, metastatic malignant melanoma of right inguinal sentinel node without extracapsular extension, largest deposit measured 0.03 mm (1/). Her case was presented in Cutaneous Oncology tumor board with recommendation for imaging for metastatic staging and discussion of adjuvant immunotherapy. BRAF/NGS status pending. She is healing well after superficial wound infection over WLE site--right groinwell healed and nontender. Baseline MRI brain was performed with no metastatic lesions, but noted to have 5mm downward displacement of cerebellar tonsils possibly consistent with Chiari I malformation. She notes occasional low back pain, but no headaches, dizziness, numbness or muscle weakness. I reviewed her imaging with Dr. Penny--should not require further workup of this in absence of symptoms. Baseline PET/CT ordered today. We reviewed immunotherapy counseling for adjuvant Nivolumab every 4 weeks for 12 cycles. Goal of therapy is to prevent recurrence. Common toxicities were reviewed to include infusion reactions, rashes, fatigue, diarrhea, abnormal thyroid/adrenal/pituitary function. Other toxicities may include pneumonitis, neurologic, hepatic and renal toxicities. The patient signed informed consent and will follow-up as directed. DIAGNOSIS: T3b N1a (Stage III) malignant melanoma right leg PMH: none, regular menses, LMP one week ago, normal duration. FMH of DNS/MM: Does not endorse Skin: Baseline skin exam: Shave biopsy site scab which is circular measuring approximately 2 cm on the right posterior lower leg Lymphatic: No palpable lymph nodes in the right popliteal or inguinal basins - Summary of Therapies Summary of Therapies: 1. S/p wide local excision right lower leg with SLNB right inguinal lymph nodes05/17/2021 2. 06/24/2021--signed informed consent for monthly adjuvant Nivolumab 3. Adjuvant Nivolumab commenced: 07/11/2021 ROS Details: All systems reviewed & no additional complaints except as documented Subjective/ROS - Narrative: CONSTITUTIONAL: Positive for mild fatigue, negative for fever or night sweats. HEAD AND NECK: Negative for changes in hearing and vision. Negative for mouth ulcers, nasal congestion and nasal drainage. PULMONARY: Negative for chest pain, cough and dyspnea. CARDIOVASCULAR: Negative for claudication and irregular heartbeat/palpitations. GASTROINTESTINAL: Negative for abdominal pain, constipation, decreased appetite,diarrhea, nausea or vomiting. GENITOURINARY: Negative for dysuria and hematuria. ENDOCRINE: Negative for cold intolerance and heat intolerance. CENTRAL NERVOUS SYSTEM: Negative for gait disturbance and headache. No dizziness, numbness or weakness. PSYCHIATRIC: Negative for anxiety or depression. DERMATOLOGICAL: Negative for pruritus and rash. Healing right lower leg wide local excision with skin graft, no drainage at site. MUSCULOSKELETAL: Positive for occasional low back pain and denies other bone/joint symptoms. HEMATOLOGICAL: Negative for bleeding and easy bruising. Negative for history of transfusion or thromboembolic disease ALLERGY: Negative for environmental allergies and food allergies. [facility] - Medical History Medical History: Medical History (Last Reviewed 10/03/21 @ 10:34 by Denia Alvares APRN) Anxiety LPRD (laryngopharyngeal reflux disease) Melanoma Orthostatic hypotension - Surgical History Surgical History: Surgical History (Last Reviewed 10/03/21 @ 10:34 by Denia Alvares APRN) H/O melanoma excision right calf History of lymph node biopsy right inguinal and sentinel lymph nodes 05/17/21 - Family History Family History: Family History (Last Reviewed 10/03/21 @ 10:34 by Denia Alvares APRN) Grandparent Breast cancer Heart disease Father Heart disease - Social History Smoking Status: Never smoker Substance Use Type: None Home Medications & Allergies Allergies No Known Allergies Allergy (Verified 10/03/21 08:30) Home Medications alprazolam 0.25 mg tablet (Xanax) 0.25 mg PO DAILY PRN 06/18/21 [History Confirmed 10/03/21] multivitamin 1 tab PO DAILY 06/18/21 [History Confirmed 10/03/21] Objective - Resuscitation Status Resuscitation Status: Full Code - Height/Weight Height/Weight: Height 5 ft 8 in Weight 67.132 kg BSA for Today's Weight 1.79 - Vital Signs Vital Signs: 10/03/21 08:31 Temperature 97.9 F Pulse Rate [Left Brachial] 88 Respiratory Rate 20 Blood Pressure [Left Arm] 131/83 02 Sat by Pulse Oximetry 100 - Distress Screening Distress Screen Results: Emotional Needs Identified? Yes Support System Parent,Family RN Distress Screening Start: 06/24/21 13:58 Freq: Status: Active Protocol: Document 07/11/21 09:30 MR (Rec: 07/11/21 10:19 MR [id number]) Distress Screening Distress Score: 2 Emotional Concerns Nervousness Distress Screening Total 2 Physical Exam Narrative: CONSTITUTIONAL: The patient is in no acute distress. HEAD / FACE: Normocephalic. EYES: Pupils are equal and reactive to light. Conjunctivae and lids are benign in appearance. Ocular movement intact. EARS: Hearing grossly intact. NOSE / MOUTH / THROAT: Nose, mouth, tongue and oropharynx are benign in appearance. No signs of inflammation. NECK / THYROID: Neck is supple. Thyroid is symmetrical, without thyromegaly, masses or palpable nodules. LYMPHATIC: No palpable cervical, supraclavicular, axillary, or inguinal adenopathy. RESPIRATORY: Normal to inspection. Lungs clear to auscultation and percussion. No wheezing, rales, rhonchi or rubs. Normal effort. CARDIOVASCULAR: Regular rate and rhythm. No murmurs, gallops, or rubs. VASCULAR: Carotid, radial, femoral and pedal pulses present bilaterally. No bruits. ABDOMEN: Bowel sounds normoactive. Soft, nontender and non-distended. No hepatosplenomegaly. No masses. GENITOURINARY: No CVA tenderness. No suprapubic fullness or tenderness. No groinadenopathy. No evidence of hernias. INTEGUMENTARY: The skin is remarkable for healing right lower leg wide local excision/skin graft, no drainage at site. No rashes. No new suspicious lesions. Well healed right inguinal incision. BACK / SPINE: The back is nontender. MUSCULOSKELETAL: Normal musculature, no joint deformities or abnormalities, normal range of motion for all four extremities. EXTREMITIES: No edema, cyanosis or clubbing. No Krish sign. NEUROLOGICAL: Alert and oriented. Cranial nerves intact. No gross motor or sensory deficits. PSYCHIATRIC: No anxiety or evidence of depression. - ECOG Performance Status ECOG Score: 0 Results - Labs Labs: Diagram of Most Recent CBC and CMP 10/01/21 16:50 10/01/21 16:50 Labs - Last 7 Days 10/01/21 16:50: ACTH 10.8 10/01/21 16:50: PHA Creatinine Clear 112.19, Sodium 139, Potassium 4.1, [id number], Carbon Dioxide 26.4, BUN 9, Creatinine 0.78, Est GFR ( Amer) > 60, Est GFR (Non-Af Amer) > 60, Glucose 85, Calcium 9.3, Total Bilirubin 0.3, AST 20, ALT 16, Alkaline Phosphatase 49, Lactate Dehydrogenase 129, Total Protein 6.1, Albumin 3.7, Globulin 2.4, Albumin/Globulin Ratio 1.5, Free T4 0.78, TSH 3rd Generation 1.45 10/01/21 16:50: Corrected WBC 7.4, Uncorrected WBC Count 7.4, RBC 4.21, Hgb 12.8, Hct 37.9, MCV 90.0, MCH 30.3, MCHC 33.7, RDW 12.5, Plt Count 332, MPV 7.4,Neut % (Auto) 66.7, Lymph % (Auto) 23.1, [place] % (Auto) 8.3, Eos % (Auto) 1.0, Baso % (Auto) 0.9, Neut # (Auto) 5.0, Lymph # (Auto) 1.7, [place] # (Auto) 0.6, Eos# (Auto) 0.1, Baso # (Auto) 0.1, Nucleated RBC % (auto) 0.0 10/01/21 16:50: Ur Random Creatinine 234.4, U Random Total Protein 19 H 10/01/21 16:50: Lipase 26.0, Total Cortisol 7.4 - Impressions Nonvascular ultrasound right lower extremity 09/23/2021. CLINICAL DATA: Melanoma. FINDINGS: Sonographic evaluation of the right lower extremity was performed withattention to the site of the patient's scar. No sonographic abnormality is identified at the scar. There are 3 benign- appearing right inguinal lymph nodes. These findings measure 1.5 x 0.7 x 1.5 cm,2.4 x 0.4 x 1.5 cm, and 0.9 x 0.3 x 0.8 cm. The left lower extremity was scannedfor comparison and two additional benign-appearing inguinal lymph nodes are noted. US/US extremity nonvascular IMPRESSION: 1. No sonographic abnormality at the site of the patient's scar in the right lower extremity. 2. Benign-appearing right and left inguinal lymph nodes. Assessment and Plan - TNM Staging Staging: pT3b pN1a (Stage III) malignant melanoma right leg s/p wide local excision 05/17/2021 (1) Malignant melanoma of right lower leg 26 year old female with ulcerated superficial spreading melanoma, Breslow depth 3.4mm now completely resected by WLE and 1 of 3 sentinel lymph nodes showed 0.03mm of involvement of melanoma (pT3b pN1a M0). She is now well healed from wide local excision 05/17/2021 and superficial wound infection. She signed informed consent for Nivolumab immunotherapy 480mg IV every 4 weeks for 12 treatments over nearly one year. We reviewed her baseline staging with whole body PET/CT prior to commencing therapy with cycle 1 day 1 07/11/2021. I sent her imaging to Dr. Nevarez--the only concerning finding was a nonspecific uptake of the left anterior pelvis not correlating to CT lesion. I will continue to follow ultrasounds and may repeat PET/CT in 6 months for bidirectional imaging. 10/03/2021: Patient reports for routine on treatment follow up. Today is Cycle 4Day 1 adjuvant Nivolumab for Stage III melanoma. Clinically, she is doing very well. Reports mild fatigue for a couple of days following treatment; but overall, displays no untoward side effects to immunotherapy. Her labs are unremarkable. No evidence of pituitary dysfunction. She had a right groin ultrasound on 09/23/2021 for surveillance of inguinal lymph nodes and these were reported as normal and benign appearing. Will continue every 3 month surveillance ultrasounds. Follow up with Dr. Rosario in ~ 3 months; sooner if new issues arise- to review ultrasound and for toxicityvisit. Per Dr. Rosario's previous notations, she mentioned potentially repeating PET/CT scan in 6 months due to previous findings of a nonspecific uptake of the left anterior pelvis not correlating to CT lesion. Her last PET/CT scan was donein early June 2021; 6 months later would be ~ early to mid December 2021. Willdefer ordering today; patient to follow up with Dr. Rosario in early Decembernd she may address ordering PET at that time. (2) Chiari malformation type I Asymptomatic downward displacement of the cerebellar tonsils. I reviewed this with Dr. Penny who did not recommend any further evaluation. We will follow forany concerning symptoms during immunotherapy. (3) Encounter for antineoplastic immunotherapy 07/11/2021: Cycle 1 day 1 Nivolumab immunotherapy 480 mg IV monthly for 12 cycles. Baseline PET/CT prior to therapy, then inguinal basin ultrasounds every4 months and bidirectional imaging every 6 months. - Chemo Plan Chemo Plan (Dose, Rate, Freq): Nivolumab immunotherapy 480mg IV every 4 weeks for 12 treatments over nearly oneyear Number of Cycles: 12 Goal of Treatment: Curative - Time with Patient Time Spent with Patient (Follow Up Visit): Less than 20 minutes Coordination of Care & Counseling Time: Greater than 50% of time spent with patient was for coordination of care (as documented) and [id number] counseling of patient and/or family. Dictated By: Denia Alvares APRN DD/ [id number] Signed By: <Electronically signed by KIKI Alvares> 10/03/21 10[address] [facility] Work Phone: [phone] Progress note Author Amanda Rosario [facility] July 19, 2021 12:54pm Note Date/Time July 18, 2021 2: 10pm [facility] [place] [address] Hem/Onc Follow Up Note - OP Signed Patient: Ailyn Kang MR#: [id number] : 1995 Acct:[id number] Age/Sex: 26 / F Type: REG RCR Copies to: MD Price Ewing MD~ Subjective Date/Time of Service: Date of Service: 07/18/2021 Time of Service: 14:09 Chief Complaint: Patient is here for folllow up post 1st Nivo tx. Patient has petscan for formal review. No concerns voiced. Patient had some fatigue with tx otherwise tolerated well. HPI: 07/18/2021: Here for follow-up after cycle 1 day 1 nivolumab 07/11/2021. No infusion reaction and otherwise tolerated well other than mild fatigue. She denies any cough, dyspnea, diarrhea, skin changes, eye changes, or any other newsymptoms. Laboratories reviewed with stable renal and hepatic function. We will follow thyroid and endocrine studies. Her ulceration at the border of her skin graft has significantly improved. Will follow up with her in Septemberrior to restaging right inguinal ultrasound, sooner if new symptoms arise on immunotherapy. PREVIOUS HISTORY: This is a 26 year old female G0, no medical history, who presented with a changing mole of right leg since Nov 2020. Noted this increased in size, becamemore raised, then started bleeding after minor trauma. She was seen by dermatology at [facility] in [place] and underwent a biopsy of the right posterior leg on 04/23/21 showing an ulcerated melanoma, superficial spreading type, Breslow: at least 3.4 mm, invasive melanoma present on the deep and peripheral margins. She was referred to Dr. Sarah Nevarez and underwent WLE with 2 cm margins on 05/17/21, surgical margins clear of malignancy, and right inguinal and iliac SLNB, metastatic malignant melanoma of right inguinal sentinel node without extracapsular extension, largest deposit measured 0.03 mm (1). Her case was presented in Cutaneous Oncology tumor board with recommendation for imaging for metastatic staging and discussion of adjuvant immunotherapy. BRAF/NGS status pending. She is healing well after superficial wound infection over WLE site--right groinwell healed and nontender. Baseline MRI brain was performed with no metastatic lesions, but noted to have 5mm downward displacement of cerebellar tonsils possibly consistent with Chiari I malformation. She notes occasional low back pain, but no headaches, dizziness, numbness or muscle weakness. I reviewed her imaging with Dr. Penny--should not require further workup of this in absence of symptoms. Baseline PET/CT ordered today. We reviewed immunotherapy counseling for adjuvant Nivolumab every 4 weeks for 12 cycles. Goal of therapy is to prevent recurrence. Common toxicities were reviewed to include infusion reactions, rashes, fatigue, diarrhea, abnormal thyroid/adrenal/pituitary function. Other toxicities may include pneumonitis, neurologic, hepatic and renal toxicities. The patient signed informed consent and will follow-up as directed. DIAGNOSIS: T3b N1a (Stage III) malignant melanoma right leg PMH: none, regular menses, LMP one week ago, normal duration. FMH of DNS/MM: Does not endorse Skin: Baseline skin exam: Shave biopsy site scab which is circular measuring approximately 2 cm on the right posterior lower leg Lymphatic: No palpable lymph nodes in the right popliteal or inguinal basins - Summary of Therapies Summary of Therapies: 1. S/p wide local excision right lower leg with SLNB right inguinal lymph nodes05/17/2021 2. 06/24/2021--signed informed consent for monthly adjuvant Nivolumab ROS Details: All systems reviewed & no additional complaints except as documented Subjective/ROS - Narrative: CONSTITUTIONAL: Positive for mild fatigue, negative for fever or night sweats. HEAD AND NECK: Negative for changes in hearing and vision. Negative for mouth ulcers, nasal congestion and nasal drainage. PULMONARY: Negative for chest pain, cough and dyspnea. CARDIOVASCULAR: Negative for claudication and irregular heartbeat/palpitations. GASTROINTESTINAL: Negative for abdominal pain, constipation, decreased appetite,diarrhea, nausea or vomiting. GENITOURINARY: Negative for dysuria and hematuria. ENDOCRINE: Negative for cold intolerance and heat intolerance. CENTRAL NERVOUS SYSTEM: Negative for gait disturbance and headache. No dizziness, numbness or weakness. PSYCHIATRIC: Negative for anxiety or depression. DERMATOLOGICAL: Negative for pruritus and rash. Healing right lower leg wide local excision with skin graft, no drainage at site. MUSCULOSKELETAL: Positive for occasional low back pain and denies other bone/joint symptoms. HEMATOLOGICAL: Negative for bleeding and easy bruising. Negative for history of transfusion or thromboembolic disease ALLERGY: Negative for environmental allergies and food allergies. PMFSH - History Attestation statement: The following information was validated with the patient. Source: Old Records Reviewed - Medical History Medical History: Medical History (Last Reviewed 07/19/21 @ 12:49 by Amanda Rosario MD) Anxiety LPRD (laryngopharyngeal reflux disease) Melanoma Orthostatic hypotension - Surgical History Surgical History: Surgical History (Last Reviewed 07/19/21 @ 12:49 by Amanda Rosario MD) H/O melanoma excision right calf History of lymph node biopsy right inguinal and sentinel lymph nodes 05/17/21 - Family History Family History: Family History (Last Reviewed 07/19/21 @ 12:49 by Amanda Rosario MD) Grandparent Breast cancer Heart disease Father Heart disease - Social History Smoking Status: Never smoker Substance Use Type: None Home Medications & Allergies Allergies No Known Allergies Allergy (Verified 07/11/21 08:28) Home Medications alprazolam 0.25 mg tablet (Xanax) 0.25 mg PO DAILY PRN 06/18/21 [History Confirmed 07/18/21] multivitamin 1 tab PO DAILY 06/18/21 [History Confirmed 07/18/21] Objective - Height/Weight Height/Weight: Height 5 ft 8 in Weight 64.41 kg BSA for Today's Weight 1.77 - Vital Signs Vital Signs: 07/18/21 14:02 Temperature 98 F Pulse Rate [Left Brachial] 85 Respiratory Rate 20 Blood Pressure [Left Arm] 125/75 02 Sat by Pulse Oximetry 98 - Emotional Needs Assessment Emotional Needs Assessment: Emotional Needs Identified? No Physical Exam Narrative: CONSTITUTIONAL: The patient is in no acute distress. HEAD / FACE: Normocephalic. EYES: Pupils are equal and reactive to light. Conjunctivae and lids are benign in appearance. Ocular movement intact. EARS: Hearing grossly intact. NOSE / MOUTH / THROAT: Nose, mouth, tongue and oropharynx are benign in appearance. No signs of inflammation. NECK / THYROID: Neck is supple. Thyroid is symmetrical, without thyromegaly, masses or palpable nodules. LYMPHATIC: No palpable cervical, supraclavicular, axillary, or inguinal adenopathy. RESPIRATORY: Normal to inspection. Lungs clear to auscultation and percussion. No wheezing, rales, rhonchi or rubs. Normal effort. CARDIOVASCULAR: Regular rate and rhythm. No murmurs, gallops, or rubs. VASCULAR: Carotid, radial, femoral and pedal pulses present bilaterally. No bruits. ABDOMEN: Bowel sounds normoactive. Soft, nontender and non-distended. No hepatosplenomegaly. No masses. GENITOURINARY: No CVA tenderness. No suprapubic fullness or tenderness. No groinadenopathy. No evidence of hernias. INTEGUMENTARY: The skin is remarkable for healing right lower leg wide local excision/skin graft, no drainage at site. No rashes. No new suspicious lesions. Well healed right inguinal incision. BACK / SPINE: The back is nontender. MUSCULOSKELETAL: Normal musculature, no joint deformities or abnormalities, normal range of motion for all four extremities. EXTREMITIES: No edema, cyanosis or clubbing. No Krish sign. NEUROLOGICAL: Alert and oriented. Cranial nerves intact. No gross motor or sensory deficits. PSYCHIATRIC: No anxiety or evidence of depression. - ECOG Performance Status ECOG Score: 0 Results - Labs Labs: Diagram of Most Recent CBC and CMP 07/18/21 13:47 Labs - Last 7 Days 07/18/21 13:47: Corrected WBC 6.7, Uncorrected WBC Count 6.7, RBC 4.26, Hgb 13.3, Hct 38.5, MCV 90.4, MCH 31.2, MCHC 34.5, RDW 12.7, Plt Count 331, MPV 7.7,Neut % (Auto) 66.5, Lymph % (Auto) 24.1, [place] % (Auto) 7.5, Eos % (Auto) 1.0, Baso % (Auto) 0.9, Neut # (Auto) 4.5, Lymph # (Auto) 1.6, [place] # (Auto) 0.5, Eos# (Auto) 0.1, Baso # (Auto) 0.1, Nucleated RBC % (auto) 0.1 07/18/21 13:35: Urine Color Cancelled, Urine Appearance Cancelled, Urine pH Cancelled, Ur Specific [place] Cancelled, Urine Protein Cancelled, Urine Glucose(UA) Cancelled, Urine Ketones Cancelled, Urine Occult Blood Cancelled, Urine Nitrite Cancelled, Urine Bilirubin Cancelled, Urine Urobilinogen Cancelled, Ur Leukocyte Esterase Cancelled - Impressions Whole body PET-CT 07/01/2021. CLINICAL DATA: Melanoma. TECHNIQUE: Nondiagnostic CT of the whole body was performed for anatomic localization and attenuation correction. Positron emission tomography (PET) of the whole body was then performed 1 hour after the intravenous administration of 12.8 mCi of F-18 Fluorodeoxyglucose (FDG). The CT and PET data sets were fused. The blood glucose level at the time of injection was 82 mg/dl. COMPARISON: None. FINDINGS: There is uptake in the right inguinal region where postsurgical changes are identified (maximum SUV 2.4). There is additional uptake just above the inguinal region in the anterior wall of the lower pelvis on the right (maximum SUV 3.1). There is cutaneous and subcutaneous uptake in the posteromedial aspectof the lower right leg (maximum SUV 2.8). Otherwise, no hypermetabolic activity suspicious for malignancy is identified in the neck, chest, abdomen, or pelvis or in the right and left upper and lower extremities. There is mucoperiosteal thickening along the floor of the right maxillary sinus. The wall of the urinarybladder is mildly thickened. PET/PET tumor init tx strat wb IMPRESSION: 1. Uptake in the right inguinal region where postsurgical changes are noted. 2. Additional uptake in the anterior wall of the lower pelvis on the right. 3. Cutaneous and subcutaneous uptake in the posteromedial lower right leg. Impression dictated by: Alin Pineda Jr., M.D.07/01/2021 2:13 PM Assessment and Plan - TNM Staging Staging: pT3b pN1a (Stage III) malignant melanoma right leg s/p wide local excision 05/17/2021 (1) Malignant melanoma of right lower leg 26 year old female with ulcerated superficial spreading melanoma, Breslow depth 3.4mm now completely resected by WLE and 1 of 3 sentinel lymph nodes showed 0.03mm of involvement of melanoma (pT3b pN1a M0). She is now well healed from wide local excision 05/17/2021 and superficial wound infection. 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 She signed informed consent for Nivolumab immunotherapy 480mg IV every 4 weeks for 12 treatments over nearlyone year. We reviewed her baseline staging with whole body PET/CT prior to commencing therapy with cycle 1 day 1 07/11/2021. I sent her imaging to Dr. Nevarez--the only concerning finding was a nonspecific uptake of the left anterior pelvis not correlating to CT lesion. I will continue to follow ultrasounds and may repeat PET/CT in 6 months for bidirectional imaging. F/u with me in September 2021 after scheduled surveillance inguinal ultrasound. Continue monthly Nivolumab and we will review toxicities at next follow-up. Lowcomplexity visit over 20 minutes (2) Chiari malformation type I Asymptomatic downward displacement of the cerebellar tonsils. I reviewed this with Dr. Penny who did not recommend any further evaluation. We will follow forany concerning symptoms during immunotherapy. (3) Encounter for antineoplastic immunotherapy 07/11/2021: Cycle 1 day 1 Nivolumab immunotherapy 480 mg IV monthly for 12 cycles. Baseline PET/CT prior to therapy, then inguinal basin ultrasounds every4 months and bidirectional imaging every 6 months. - Chemo Plan Chemo Plan (Dose, Rate, Freq): Nivolumab immunotherapy 480mg IV every 4 weeks for 12 treatments over nearly oneyear Number of Cycles: 12 Goal of Treatment: Curative - Time with Patient Time Spent with Patient (Follow Up Visit): Less than 20 minutes Coordination of Care & Counseling Time: Greater than 50% of time spent with patient was for coordination of care (as documented) and [id number] counseling of patient and/or family. Dictated By: Amanda Rosario MD DD/ [id number] Signed By: <Electronically signed by MD Amanda Rosario> 07/19/21 [id number] [facility] Work Phone: 1(139) 580-158508-03-2021 Consult note Author Amanda Rosario [facility] June 24, 2021 10:09pm Note Date/Time June 24, 2021 2:1 8pm [facility] [place] [id number] Hem/Onc Consult Note - OP Signed Patient: Ailyn Kang MR#: [id number] : 1995 Acct:[id number] Age/Sex: 26 / F Type: REG RCR Copies to: MD Price Ewing MD~ HPI Date/Time of Service: Date of Service: 06/24/2021 Time of Service: 14:16 Referring Provider/PCP: Referring Provider: Sarah Nevarez MD PCP: Price Girard MD - History of Present Illness Reason for Consultation: Referral from Dr. Nevarez for pT3b pN1a (Stage III) malignant melanoma right leg s/p wide local excision 05/17/2021, complicated by superficial wound infection, here for discussion of adjuvant immunotherapy. Chief Complaint: Patient is here today for a referral from Dr Sarah Nevarez MD for Melanoma of her right lower leg HPI: Dear Dr. Nevarez, I had the great pleasure of seeing your patient in consultation. Thank you verymuch for your referral. As you know, this is a 26 year old female G0, no medical history, who presented with a changing mole of right leg since Nov 2020. Noted this increased in size, became more raised, then started bleeding after minor trauma. She was seen by dermatology at [facility] in [place] and underwent a biopsy of the right posterior leg on 04/23/21 showing an ulcerated melanoma, superficial spreading type, Breslow: at least 3.4 mm, invasive melanoma present on the deep and peripheral margins. She was referred to Dr. Sarah Nevarez and underwent WLE with 2 cm margins on 05/17/21, surgical margins clear of malignancy, and right inguinal and iliac SLNB, metastatic malignant melanoma of right inguinal sentinel node without extracapsular extension, largest deposit measured 0.03 mm (1). Her case was presented in Cutaneous Oncology tumor board with recommendation for imaging for metastatic staging and discussion of adjuvant immunotherapy. BRAF/NGS status pending. She is healing well after superficial wound infection over WLE site--right groinwell healed and nontender. Baseline MRI brain was performed with no metastatic lesions, but noted to have 5mm downward displacement of cerebellar tonsils possibly consistent with Chiari I malformation. She notes occasional low back pain, but no headaches, dizziness, numbness or muscle weakness. I reviewed her imaging with Dr. Penny--should not require further workup of this in absence of symptoms. Baseline PET/CT ordered today. Today we reviewed immunotherapy counseling for adjuvant Nivolumab every 4 weeks for 12 cycles. Goal of therapy is to prevent recurrence. Common toxicities were reviewed to include infusion reactions, rashes, fatigue, diarrhea, abnormalthyroid/adrenal/pituitary function. Other toxicities may include pneumonitis, neurologic, hepatic and renal toxicities. The patient signed informed consent and will follow-up as directed. PMH: none, regular menses, LMP one week ago, normal duration. FMH of DNS/MM: Does not endorse Skin: Baseline skin exam: Shave biopsy site scab which is circular measuring approximately 2 cm on the right posterior lower leg Lymphatic: No palpable lymph nodes in the right popliteal or inguinal basins PMFSH - History Attestation statement: The following information was validated with the patient. Source: Old Records Reviewed - Medical History Medical History: Medical History (Last Reviewed 06/24/21 @ 14:18 by Amanda Rosario MD) Anxiety LPRD (laryngopharyngeal reflux disease) Melanoma Orthostatic hypotension - Surgical History Surgical History: Surgical History (Last Reviewed 06/24/21 @ 14:18 by Amanda Rosario MD) H/O melanoma excision right calf History of lymph node biopsy right inguinal and sentinel lymph nodes 05/17/21 - Family History Family History: Family History (Last Reviewed 06/24/21 @ 14:18 by Amanda Rosario MD) Grandparent Breast cancer Heart disease Father Heart disease - Social History Smoking Status: Never smoker Substance Use Type: None Home Medications & Allergies Allergies Unable to Assess Allergy (Verified 06/19/21 06:50) Home Medications alprazolam 0.25 mg tablet (Xanax) 0.25 mg PO DAILY PRN 06/18/21 [History Confirmed 06/24/21] multivitamin 1 tab PO DAILY 06/18/21 [History Confirmed 06/24/21] Subjective Data - Diagnosis DIAGNOSIS: T3b N1a (Stage III) malignant melanoma right leg - Summary of Therapies Summary of Therapies: 1. S/p wide local excision right lower leg with SLNB right inguinal lymph nodes05/17/2021 2. 06/24/2021--signed informed consent for monthly adjuvant Nivolumab Subjective/ROS - Narrative: CONSTITUTIONAL: Negative for fatigue, negative for fever or night sweats. HEAD AND NECK: Negative for changes in hearing and vision. Negative for mouth ulcers, nasal congestion and nasal drainage. PULMONARY: Negative for chest pain, cough and dyspnea. CARDIOVASCULAR: Negative for claudication and irregular heartbeat/palpitations. GASTROINTESTINAL: Negative for abdominal pain, constipation, decreased appetite,diarrhea, nausea or vomiting. GENITOURINARY: Negative for dysuria and hematuria. ENDOCRINE: Negative for cold intolerance and heat intolerance. CENTRAL NERVOUS SYSTEM: Negative for gait disturbance and headache. No dizziness, numbness or weakness. PSYCHIATRIC: Negative for anxiety or depression. DERMATOLOGICAL: Negative for pruritus and rash. Healing right lower leg wide local excision, no drainage at site. MUSCULOSKELETAL: Positive for occasional low back pain and denies other bone/joint symptoms. HEMATOLOGICAL: Negative for bleeding and easy bruising. Negative for history of transfusion or thromboembolic disease ALLERGY: Negative for environmental allergies and food allergies. ROS Details: All systems reviewed & no additional complaints except as documented Objective - Height/Weight Height/Weight: Height 5 ft 8 in Weight 64.41 kg - Vital Signs Vital Signs: 06/24/21 14:10 Temperature 98.0 F Pulse Rate [Left Brachial] 121 H Respiratory Rate 20 Blood Pressure [Left Arm] 129/87 02 Sat by Pulse Oximetry 99 - Emotional Needs Assessment Emotional Needs Assessment: Emotional Needs Identified? No Physical Exam Narrative: CONSTITUTIONAL: The patient is in no acute distress. HEAD / FACE: Normocephalic. EYES: Pupils are equal and reactive to light. Conjunctivae and lids are benign in appearance. Ocular movement intact. EARS: Hearing grossly intact. NOSE / MOUTH / THROAT: Nose, mouth, tongue and oropharynx are benign in appearance. No signs of inflammation. NECK / THYROID: Neck is supple. Thyroid is symmetrical, without thyromegaly, masses or palpable nodules. LYMPHATIC: No palpable cervical, supraclavicular, axillary, or inguinal adenopathy. RESPIRATORY: Normal to inspection. Lungs clear to auscultation and percussion. No wheezing, rales, rhonchi or rubs. Normal effort. CARDIOVASCULAR: Regular rate and rhythm. No murmurs, gallops, or rubs. VASCULAR: Carotid, radial, femoral and pedal pulses present bilaterally. No bruits. ABDOMEN: Bowel sounds normoactive. Soft, nontender and non-distended. No hepatosplenomegaly. No masses. GENITOURINARY: No CVA tenderness. No suprapubic fullness or tenderness. No groinadenopathy. No evidence of hernias. INTEGUMENTARY: The skin is remarkable for healing right lower leg wide local excision, no drainage at site.. No rashes. No new suspicious lesions. Well healed right inguinal incision. BACK / SPINE: The back is nontender. MUSCULOSKELETAL: Normal musculature, no joint deformities or abnormalities, normal range of motion for all four extremities. EXTREMITIES: No edema, cyanosis or clubbing. No Krish sign. NEUROLOGICAL: Alert and oriented. Cranial nerves intact. No gross motor or sensory deficits. PSYCHIATRIC: No anxiety or evidence of depression. - ECOG Performance Status ECOG Score: 0 Results - Labs Labs: No recent labs for review. - Impressions MR head/brain wo/w con 06/19/2021 11:21 AM SIGN AND SYMPTOMS: History of melanoma removed from right ankle, rule out intracranial metastatic disease PROTOCOL: Multiplanar multisequence MR images of the brain were obtained with and without IV contrast. CONTRAST: 13 mL of intravenous ProHance COMPARISON: None. FINDINGS: Extra axial spaces: Age appropriate. Hemorrhage: None. Ventricular system: Within normal limits. Basal cisterns: Within normal limits and not effaced. Cerebral parenchyma: Normal in signal. Midline shift: None.. Cerebellum: There is 5 mm of downward displacement of the cerebellar tonsils. Brainstem: Within normal limits. OTHER: Calvarium: Normal marrow signal. Vascular system: Satisfactory flow voids within the anterior and posterior circulation. Visualized Paranasal sinuses: Within normal limits. Visualized Orbits: Within normal limits. Visualized upper cervical spine: Within normal limits. Sella and skull base: Within normal limits. MR/MR head/brain wo/w con IMPRESSION: No acute intracranial pathology. No evidence of intracranial metastatic disease. There is approximately 5 numerous of downward displacement of the cerebellar tonsils suggesting Chiari I malformation. Impression dictated by: Thony Lopes M.D.06/19/2021 2:02 PM Assessment and Plan - TNM Staging Staging: pT3b pN1a (Stage III) malignant melanoma right leg s/p wide local excision 05/17/2021 (1) Malignant melanoma of right lower leg 25 year old female with ulcerated superficial spreading melanoma, Breslow depth 3.4mm now completely resected by WLE and 1 of 3 sentinel lymph nodes showed 0.03mm of involvement of melanoma (pT3b pN1a M0). She is now well healed from wide local excision 05/17/2021 and superficial wound infection. 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 She signed informed consent for Nivolumab immunotherapy 480mg IV every 4 weeks for 12 treatments over nearlyone year. She will complete baseline staging with whole body PET/CT prior to commencing therapy in the next 1-2 weeks. F/u with me about 2-3 weeks after initial dose Nivolumab to review toxicities. I would like to thank you very much for the courtesy of this referral. I will keep you up-to-date with this patient's progress. Should you have any questionsregarding the management of this patient, please do not hesitate to contact me. Sincerely, Amanda Rosario MD, FACP Medical Oncology (2) Chiari malformation type I Asymptomatic downward displacement of the cerebellar tonsils. I reviewed this with Dr. Penny who did not recommend any further evaluation. We will follow forany concerning symptoms during immunotherapy. (3) Encounter for antineoplastic immunotherapy Placed orders for Nivolumab immunotherapy--to commence in the next 1-2 weeks. Baseline PET/CT prior to therapy, then inguinal basin ultrasounds every 4 monthsand bidirectional imaging every 6 months. - Chemo Plan Chemo Plan (Dose, Rate, Freq): Nivolumab immunotherapy 480mg IV every 4 weeks for 12 treatments over nearly oneyear Number of Cycles: 12 Goal of Treatment: Curative - Time with Patient Total Time Spent with Patient (Consult): 60 mins or more - One hour appointment to review pathology, immunotherapy counseling, discussion of MRI findings Coordination of Care & Counseling Time: Greater than 50% of time spent with patient was for coordination of care (as documented) and htal-os-[id number] counseling of patient and/or family. Dictated By: Amanda Rosario MD DD/ [id number] Signed By: <Electronically signed by MD Amanda Rosario> 06/24/21 [id number] [facility] Work Phone: [phone]) [phone] NotePROCEDURE DETAILS Preoperative Diagnosis: Malignant melanoma of right posterior calf, C43.71 Postoperative Diagnosis: Malignant melanoma of right posterior calf, C43.71 Surgeon: Sarah Nevarez Resident/Fellow/Other Bluing Oven Tender: Yao Jaquez Procedure: WIDE EXCISION MELANOMA RIGHT POSTERIOR LEG, KEYSTONE FLAP RIGHT INGUINAL AND ILIAC SENTINEL LYMPH NODE BIOPSY Anesthesia: Chadwick, Endrit Estimated Blood Loss: 5 Findings: 2 superficial sentinel lymph nodes, iliac sentinel lymph node. Specimens(s) Collected: yes, Operative Report: The patient was brought to the operating room and placed supine on the table. Sequential compression devices were applied. General anesthesia was smoothly induced. Right groin was prepped and draped in the usual fashion. Timeout was performed and preoperative antibiotics given. Right infrainguinal incision was made, dissection was carried into the lymphatic basin. Using the probe, 2sentinel lymph nodes were identified and excised en bloc and ex vivo. The wound was irrigated, hemostasis was assured, local anesthesia was infiltrated, and the wound was closed in layers. 3-0 Vicryl was used for the Micky's fascia layer and the deep dermal layer. 4-0 Monocryl was used on the skin. Transverse incision was made in the lower abdomen just lateral to the pubis. Dissection carried down through Micky's fascia to the external oblique fascia which was incised sharply; the internal oblique fascia was also incised sharply. The iliac vessels were seen and palpated. Bladder was retracted medially. The probe was used to identify sentinel lymph node overlying the external iliac vein. Cautery and clips were used to excise the sentinel lymph node. 10cc 0.5% marcaine was infiltrated as an ilioinguinal block. The wound was closed in multiple layers with 3-0 running Vicryl to the internal oblique fascia, 3-0 running Vicryl to the external oblique fascia, 3-0 running Vicryl to Micky's fascia, 3-0 Vicryl in the deep dermal space followed by 4-0 Monocryl to the skin. Surgical glue was applied as a dressing. I now directed my attention to the lower leg after the patient was positioned prone. 2 cm. margins were marked around the primary melanoma. The wound markings were elongated resulting in a 7.7 x 4.7 cm. ellipse. I dana keystone flap based medially with the flap measuring 14.5 x 6 cm. Skin incision was made with a knife and dissection carried to but not through the underlying muscular fascia, and the specimen was excised and marked with sutures. Knife and cautery were used to prepare the keystone flap incising down to, but not through, the muscular fascia. I did not undermine the flap, but undermined somewhat the wound outside the flap. Hemostasis was assured. Local anesthesia infiltrated. Initial sutures of 2-0 nylon were placed to rotate the flap into place and perform the V-Y closure. Numerous deep dermal 3-0 vicryl sutures were used followed by mattress sutures of nylon to the skin. Bacitracin, Xeroform, and an sterile dressing were applied. The patient tolerated the procedure well without any apparent intraoperative complications. All sponge, needle, and instrument counts were correct. As the attending surgeon I was scrubbed for the entire procedure. Note Recipients: Price Girard MD - [phone] [] Bettina Madera PAC - [phone] [] Attestation: Note Completion: Attending AttestationI performed the procedure without a resident Electronic Signatures: Sarah Nevarez) (Signed 17-May-2021 18:18) Authored: Post-Operative Note, Chart Review, Note Completion Last Updated: 17-May-2021 18:18 by Sarah Nevarez)[facility] 05-17-2021 History of Present illness [id number] woman who underwent wide excision right posterior calf melanoma with Preston flap reconstruction as well as right inguinal and iliac sentinel lymph node biopsy on 05/17/2021. Pathology report has not yet resulted. She is recovering well.YJ-Ojrxhip-Qhpxq Main Work Phone: 1(246) 195-544406-25-2021 History of Present illness Narrative 25-year-old woman who underwent wide excision right posterior calf melanoma with Preston flap reconstruction as well as right inguinal and iliac sentinel lymph node biopsy on 05/17/2021. Pathology report has not yet resulted. She is recovering well.[facility] Work Phone: 1([phone]) 354-443706-25-2021 NoteHistory & Physical Reviewed: /Lactating: Are You no (1) Are You Currently Breastfeedingno (1) I have reviewed the History and Physical dated: 02-May-2021 History and Physical reviewed and relevant findings noted. Patient examined to review pertinent physical findings.: No significant changes Home Medications Reviewed: no changes noted Allergies Reviewed: no changes noted ERAS (Enhanced Recovery After Surgery): ERAS Patient: no Consent: COVID-19 Consent: COVID-19 Risk ConsentSurgeon has reviewed aponte risks related to the risk of chivo COVID-19 and if they contract COVID-19 what the risks are. Electronic Signatures: Sarah Nevaerz) (Signed 17-May-2021 09:36) Authored: History & Physical Reviewed, ERAS, Consent, Note Completion Last Updated: 17-May-2021 09:36 by Sarah Nevarez) References: 1. Data Referenced From Patient Profile - Preop v2 17-May-2021 09:27[facility]06-22-2021 NoteAccession #: [id number] Pathologist: ANUJA OLIVO MD Date of Procedure: 05/14/2021 Date Received: 05/14/2021 Submitting Physician: SARAH NEVAREZ MD Location: [facility] Copy To/Referring/Attending: ROLY EDGE DO FINAL DIAGNOSIS 2 SLIDES, [facility] #[id number] (BX: 04/23/2021) SKIN, RT POST LEG, SHAVE BIOPSY: INVASIVE MALIGNANT MELANOMA, ULCERATED SUPERFICIAL SPREADING SUBTYPE, EXTENDING TO A DEPTH OF AT LEAST 3.4 MM (SEE COMMENT): Comment: Invasive malignant melanoma extends focally to the deep margin and a peripheral margin. Melanoma in situ extends to a peripheral margin. See synoptic summary below. Electronically Signed Out by ANUJA OLIVO MD. CANCER SUMMARY REPORT A. 2 SLIDES, [facility] #[id number] (BX: 04/23/2021): SPECIMEN Procedure: Biopsy, shave Specimen Laterality: Right TUMOR Tumor Site: Skin of lower limb and hip: Right posterior leg Multiple Primary Sites: Additional primary site(s) present: Not applicable Histologic Type: Superficial spreading melanoma (low-cumulative sun damage (CSD) melanoma) Maximum Tumor (Breslow) Thickness (Millimeters): At least: 3.4 mm Extends multifocally to the deep margin. Ulceration: Present Extent of Ulceration (Millimeters): 6.1 mm Anatomic (Joshua) Level: IV (melanoma invades reticular dermis) Mitotic Rate: 2 mitoses per mm2 Microsatellite(s): Cannot be determined: Shave biopsy Lymphovascular Invasion: Not identified Neurotropism: Not identified Tumor-Infiltrating Lymphocytes: Present, nonbrisk Tumor Regression: Not identified MARGINS Peripheral Margins: Invasive melanoma present at margin Location: A peripheral Deep Margin: Invasive melanoma present at margin PATHOLOGIC STAGE CLASSIFICATION (pTNM, AJCC 8th Edition) Note: Reporting of pT categories is based on information available to the pathologist at the time the report is issued. As per the AJCC (Chapter 1, 8th Ed.) it is the managing physician?s responsibility to establish the final pathologic stage based upon all pertinent information, including but potentially not limited to this pathology report. Primary Tumor (pT): pT3b ADDITIONAL TESTING SOCIAL MEDIA SR STRATEGY MANAGER BLOCKS: Tumor Block: CSPL slide [id number] Electronically Signed Out By ANUJA OLIVO MD/BEBETO Microscopic Description: Microscopic examination performed. Clinical History: SHAVE/ BCC VS MM VS PG 1.9 X 1.9CM Specimens Submitted As: A: 2 SLIDES, [facility] #[id number] (BX: 04/23/2021) Gross Description: Received for consultation from [facility] are two slides labeled [id number] (BX: 04/23/2021) along with the corresponding pathology report. Slide/Block Description 2 SLIDES, [id number]. Keep Slides: N Slides Returned: N [facility]:Performed By: #### D #### DermatopathologyEvaluation noteN/ADept. 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 Evaluation note* Diagnosis Onset Date Resolution Status Iron deficiency anemia acute Chiari malformation type I c hronic Edema of right lower extremity chronic Encounter for antineoplastic immunotherapy chronic Malignant melanoma of right lower leg chronic [facility] Work Phone: Evaluation note* Diagnosis Onset Date Resolution Status Chiari malformation type I c hronic Edema of right lower extremity chronic Encounter for antineoplastic immunotherapy chronic Iron deficiency anemia chron ic Malignant melanoma of right lower leg chronic [facility] Work Phone: Evaluation noteNo assessment information available [facility] Work Phone: Hospital Discharge instructionsAmbulatory Orders* RISE Order Time Frame: 1 Day, Location: Determined By Patient * Survivourship Follow Up Time Frame: 3 Months, Location: Determined By Patient [facility] Work Phone: Progress note Author Ale Malone [facility] July 09, 2022 1:35pm Note Date/Time July 08, 2022 1: 31pm [facility] [place] [address] Hem/Onc Follow Up Note - OP Signed with Addenda Patient: Ailyn Resendiz MR#: [id number] : 1995 Acct:[id number] Age/Sex: 27 / F Type: REG RCR Copies to: MD Sarah Gillespie MD Marc Naderer, MD~ ADDENDUM1 After discussion with Dr. Rosario, we will have the patient follow-up in 3 months instead of 6, and will plan repeat CT c/a/p prior to that visit. Addendum Dictated By: KIKI Ale Yudith Alejandrehakangene Addendum Signed By: 07/09/221334 Addendum Cosigned By: DD/ TD/TT: 07/09/22 Subjective Date/Time of Service: Date of Service: 07/08/2022 Time of Service: 13:31 Chief Complaint: Patient is here for a 3 month follow up/survivorship appt. She has labs and ultrasound for review. No concerns voiced at this time. HPI: 07/09/2022: Ailyn is here for survivorship visit and follow-up after completing Nivolumab. She feels well overall. She notes her right lower leg edema seems to be slightly improved. She has some mild constipation from her oral iron, but is very well controlled with stool softeners as needed. Otherwiseshe has no new complaints. Inguinal US was unchanged with normal appearing lymphnodes. Labs are reviewed and stable, her iron saturation has improved to normal,but ferritin a bit low. We will continue to monitor her labs with repeat in 6 months at follow-up. We reviewed her survivorship plan in detail including her diagnosis, staging, treatments, follow-up after treatment and lifestyle changes.She was provided resources as well and all of her questions were answered appropriately. She was given a copy of her plan and will return in 6 months. 04/02/2022: Here for 3 month followup, cycle 10 Nivolumab--no significant changein right leg swelling with prolonged standing. No change of surgical site--has followup in dermatology within the next month. Tolerating immunotherapy well--she did have a brief period of chills and diaphoresis during February Nivolumab infusion with mild persistent fatigue thereafter. We reviewed labs showing normal hemoglobin--low iron saturation 4%, ferritin 14.3. She has not tolerated oral iron well in the past due to dyspepsia. We will coordinate parenteral iron at [facility] per her request. Normal thyroid, cortisol,and CMP labs. Restaging CT CAP shows no recurrence of disease--she may proceed with her last 2 cycles of Nivolumab and I will followup with her in 3 months foringuinal ultrasound and survivorship visit. 01/15/2022: Here for 3 month followup--notes increased swelling right leg when she is on her feet all day--uses compression stocking but feels this is more pronounced recently. No new skin lesions, pain or groin fullness. 12/31/2021 US right inguinal area without recurrence. No immunotherapy related toxicities. Due to lower extremity swelling, I will send doppler US to exclude DVT and we will contact her with results. She will continue monthly Nivolumab (cycle 7)--will send bidirectional imaging (CT CAP) for systemic restaging prior to next f/u in 3 months, sooner prn. 10/03/2021: Patient is here today for follow-up prior to Cycle 4 day 1 adjuvant Nivolumab for Stage III melanoma. Clinically, the patient is doing very well. Notes a couple days of increased fatigue following her infusions; but otherwise denies any significant issues/worsening problems. Specifically denies any cough,shortness of breath, dyspnea on exertion, diarrhea, skin changes, skin rash, eyechanges or new skin lesions. She denies any palpable lymphadenopathy. --She had surveillance ultrasound of the right groin, which was done on 09/23/2021, findings were reported as normal and benign appearing. 07/18/2021: Here for follow-up after cycle 1 day 1 nivolumab 07/11/2021. No infusion reaction and otherwise tolerated well other than mild fatigue. She denies any cough, dyspnea, diarrhea, skin changes, eye changes, or any other newsymptoms. Laboratories reviewed with stable renal and hepatic function. We will follow thyroid and endocrine studies. Her ulceration at the border of her skin graft has significantly improved. Will follow up with her in Septemberrior to restaging right inguinal ultrasound, sooner if new symptoms arise on immunotherapy. PREVIOUS HISTORY: This is a 26 year old female G0, no medical history, who presented with a changing mole of right leg since Nov 2020. Noted this increased in size, becamemore raised, then started bleeding after minor trauma. She was seen by dermatology at [facility] in [place] and underwent a biopsy of the right posterior leg on 04/23/21 showing an ulcerated melanoma, superficial spreading type, Breslow: at least 3.4 mm, invasive melanoma present on the deep and peripheral margins. She was referred to Dr. Sarah Nevarez and underwent WLE with 2 cm margins on 05/17/21, surgical margins clear of malignancy, and right inguinal and iliac SLNB, metastatic malignant melanoma of right inguinal sentinel node without extracapsular extension, largest deposit measured 0.03 mm (11/25). Her case was presented in Cutaneous Oncology tumor board with recommendation for imaging for metastatic staging and discussion of adjuvant immunotherapy. BRAF/NGS status pending. She is healing well after superficial wound infection over WLE site--right groinwell healed and nontender. Baseline MRI brain was performed with no metastatic lesions, but noted to have 5mm downward displacement of cerebellar tonsils possibly consistent with Chiari I malformation. She notes occasional low back pain, but no headaches, dizziness, numbness or muscle weakness. I reviewed her imaging with Dr. Penny--should not require further workup of this in absence of symptoms. Baseline PET/CT ordered today. We reviewed immunotherapy counseling for adjuvant Nivolumab every 4 weeks for 12 cycles. Goal of therapy is to prevent recurrence. Common toxicities were reviewed to include infusion reactions, rashes, fatigue, diarrhea, abnormal thyroid/adrenal/pituitary function. Other toxicities may include pneumonitis, neurologic, hepatic and renal toxicities. The patient signed informed consent and will follow-up as directed. DIAGNOSIS: T3b N1a (Stage III) malignant melanoma right leg PMH: none, regular menses, LMP one week ago, normal duration. FMH of DNS/MM: Does not endorse Skin: Baseline skin exam: Shave biopsy site scab which is circular measuring approximately 2 cm on the right posterior lower leg Lymphatic: No palpable lymph nodes in the right popliteal or inguinal basins - Summary of Therapies Summary of Therapies: 1. S/p wide local excision right lower leg with SLNB right inguinal lymph nodes05/17/2021 2. Adjuvant Nivolumab commenced: 07/11/2021--05/23/2022 ROS Details: All systems reviewed & no additional complaints except as documented PMFSH - Medical History Medical History: Medical History (Last Reviewed 04/03/22 @ 20:44 by Amanda Rosario MD) Anxiety LPRD (laryngopharyngeal reflux disease) Melanoma Orthostatic hypotension - Surgical History Surgical History: Surgical History (Last Reviewed 04/03/22 @ 20:44 by Amanda Rosario MD) H/O melanoma excision right calf History of lymph node biopsy right inguinal and sentinel lymph nodes 05/17/21 - Family History Family History: Family History (Last Reviewed 04/03/22 @ 20:44 by Amanda Rosario MD) Grandparent Breast cancer Heart disease Father Heart disease - Social History Smoking Status: Never smoker Substance Use Type: None Home Medications & Allergies Allergies No Known Allergies Allergy (Verified 07/08/22 13:02) Home Medications alprazolam 0.25 mg tablet (Xanax) 0.25 mg PO DAILY PRN Anxiety 06/18/21 [History Confirmed 07/08/22] multivitamin 1 tab PO DAILY 06/18/21 [History Confirmed 07/08/22] Objective - Height/Weight Height/Weight: Height 5 ft 8 in Weight 67.812 kg BSA for Today's Weight 1.81 - Vital Signs Vital Signs: 07/08/22 13:02 Temperature 98 F Pulse Rate [Left Brachial] 95 H Respiratory Rate 20 Blood Pressure [Left Arm] 115/71 02 Sat by Pulse Oximetry 97 Oxygen Delivery Method Room Air - Distress Screening Distress Screen Results: RN Distress Screening Start: 06/24/21 13:58 Freq: Status: Active Protocol: Document 01/31/22 15:50 AD (Rec: 01/31/22 15:50 AD [id number]) Distress Screening Distress Score: 0 No worry/distress Distress Screening Total 0 Physical Exam Narrative: CONSTITUTIONAL: The patient is in no acute distress. HEAD / FACE: Normocephalic. EYES: Pupils are equal and reactive to light. Conjunctivae and lids are benign in appearance. Ocular movement intact. EARS: Hearing grossly intact. NECK / THYROID: Neck is supple. Thyroid is symmetrical, without thyromegaly, masses or palpable nodules. LYMPHATIC: No palpable cervical, supraclavicular, axillary, or inguinal adenopathy--unchanged firm right inguinal area from prior sentinel LNB. RESPIRATORY: Normal to inspection. Lungs clear to auscultation and percussion. No wheezing, rales, rhonchi or rubs. Normal effort. CARDIOVASCULAR: Regular rate and rhythm. No murmurs, gallops, or rubs. ABDOMEN: Bowel sounds normoactive. Soft, nontender and non-distended. No hepatosplenomegaly. No masses noted. INTEGUMENTARY: The skin is remarkable for healing right lower leg wide local excision/skin graft, no drainage at site. No rashes. No new suspicious lesions. Well healed right inguinal incision. MUSCULOSKELETAL: Normal musculature, no joint deformities or abnormalities, normal range of motion for all four extremities. EXTREMITIES: 1+ nonpitting edema lower right leg without cyanosis or clubbing. NEUROLOGICAL: Alert and oriented. Cranial nerves intact. No gross motor or sensory deficits. PSYCHIATRIC: No anxiety or evidence of depression. Results - Labs Labs: Diagram of Most Recent CBC and CMP 07/08/22 10:30 07/08/22 10:30 Labs - Last 7 Days 07/08/22 10:30: PHA Creatinine Clear 111.22, Sodium 134 L, Potassium 4.3, Chloride 104, Carbon Dioxide 22.2, BUN 9, Creatinine 0.78, Est GFR ( Amer) > 60, Est GFR (Non-Af Amer) > 60, Glucose 83, Calcium 9.3, Iron 173 H, TIBC 484 H, Iron Saturation 35.0, Transferrin 346, Ferritin 9.6 L, Total Bilirubin 0.7, AST 22, ALT 17, Alkaline Phosphatase 52, Lactate Dehydrogenase 154, Total Protein 6.8, Albumin 3.9, Globulin 2.9, Albumin/Globulin Ratio 1.3, Total T4 11.18, Total T3 1.68, TSH 3rd Generation 1.69, Total Cortisol 12.6 07/08/22 10:30: Corrected WBC 5.6, Uncorrected WBC Count 5.6, RBC 4.78, Hgb 14.2, Hct 42.7, MCV 89.4, MCH 29.7, MCHC 33.3, RDW 12.4, Plt Count 393, MPV 8.0,Neut % (Auto) 61.2, Lymph % (Auto) 26.6, [place] % (Auto) 9.7, Eos % (Auto) 1.2, Baso % (Auto) 1.3, Neut # (Auto) 3.4, Lymph # (Auto) 1.5, [place] # (Auto) 0.5, Eos# (Auto) 0.1, Baso # (Auto) 0.1, Nucleated RBC % (auto) 0.2 Assessment and Plan - TNM Staging Staging: pT3b pN1a (Stage III) malignant melanoma right leg s/p wide local excision 05/17/2021 (1) Malignant melanoma of right lower leg 26 year old female with ulcerated superficial spreading melanoma, Breslow depth 3.4mm now completely resected by WLE and 1 of 3 sentinel lymph nodes showed 0.03mm of involvement of melanoma (pT3b pN1a M0). She is now well healed from wide local excision 05/17/2021 and superficial wound infection. She signed informed consent for Nivolumab immunotherapy 480mg IV every 4 weeks for 12 treatments over nearly one year. We reviewed her baseline staging with whole body PET/CT prior to commencing therapy with cycle 1 day 1 07/11/2021. I sent her imaging to Dr. Nevarez--the only concerning finding was a nonspecific uptake of the left anterior pelvis not correlating to CT lesion. I will continue to follow ultrasounds and may repeat PET/CT in 6 months for bidirectional imaging. 10/03/2021: Patient reports for routine on treatment follow up. Today is Cycle 4Day 1 adjuvant Nivolumab for Stage III melanoma. Clinically, she is doing very well. Reports mild fatigue for a couple of days following treatment; but overall, displays no untoward side effects to immunotherapy. Her labs are unremarkable. No evidence of pituitary dysfunction. She had a right groin ultrasound on 09/23/2021 for surveillance of inguinal lymph nodes and these were reported as normal and benign appearing. 01/15/2022: Now reports 2+ nonpitting edema with standing. No immunotherapy related toxicities. 12/31/2021: Right inguinal ultrasound without new adenopathy, but will send for doppler US right lower extremity to r/o DVT and contact with results. Will send for 6 month bidirectional imaging prior to nextvisit (alternate and extend US to every 6 months). 04/03/2022: Edema in right leg now 1+ with compression stocking. One episode of infusion reaction with February infusion of Nivolumab. No other immunotherapy toxicities. No recurrence by restaging CT Chest/Abdomen/Pelvis. Next f/u 3 months after completing last 2 cycles of Nivolumab. US right groin and survivorship visit in 3 months. 07/09/2022: She has completed her course of Nivolumab and is doing very well overall. Inguinal US ok. We reviewed in detail her survivorship care plan and answered all of her questions appropriately. She was provided a copy of this as well as resource booklets to take home. She remains on oral iron with improvement in her counts so far. We will plan to repeat labs in 6 months at follow-up with repeat right inguinal US. She is in agreement with this plan. (2) Iron deficiency anemia Qualifiers: Iron deficiency anemia type: unspecified iron deficiency Qualified Code(s):D50.9 - Iron deficiency anemia, unspecified Recent increased fatigue--hemoglobin normal but increased fatigue with tachycardia. Iron saturation 4% with ferritin 7. Will have Venofer infusions at [facility] (300mg IV x 3 doses) with followup CBC, serum iron profile,and ferritin in one month. Consider GI evaluation for iron deficiency. 07/09/2022: She is doing well on oral iron recommended by her manager meat. She does not plan to have children anytime soon, but discussed with her manager meat the best iron supplementation to be on if she does plan to in the future. She has only mild constipation with the iron that is very well controlled with stool softeners as needed. Labs are improving and we will plan to recheck iron studiesagain in 6 months for further eval. (3) Edema of right lower extremity Likely due to peripheral venous insufficiency from prior melanoma/skin graft surgery right leg (no evidence of recurrence of melanoma)--no DVT on doppler US 01/24/2022. Continue compression stockings as needed. (4) Chiari malformation type I Asymptomatic downward displacement of the cerebellar tonsils. I reviewed this with Dr. Penny who did not recommend any further evaluation. No concerning symptoms during immunotherapy, which has now been completed. (5) Encounter for antineoplastic immunotherapy 07/11/2021: Cycle 1 day 1 Nivolumab immunotherapy 480 mg IV monthly for 12 cycles. Baseline PET/CT prior to therapy, then inguinal basin ultrasounds every6 months (alternate with bidirectional imaging every 6 months). 07/09/2022: She has completed her year of Nivolumab as of 05/23/2022 without residual toxicity. Most recent US negative for disease - Chemo Plan Chemo Plan (Dose, Rate, Freq): Surveillance only now. She has completed Nivolumab immunotherapy every 4 weeks for 12 treatments as of 05/23/2022 Number of Cycles: 12 Goal of Treatment: Curative - Time with Patient Time Spent with Patient (Follow Up Visit): 35 minutes Coordination of Care & Counseling Time: Greater than 50% of time spent with patient was for coordination of care (as documented) and [id number] counseling of patient and/or family. Dictated By: Ale Malone APRN DD/ [id number] Signed By: <Electronically signed by KIKI Malone> 07/09/22 0958 [facility] Work Phone: Progress note Author Amanda Rosario [facility] January 21, 2023 8:51pm Note Date/Time January 21, 2023 3:01 pm [facility] [place] [address] Hem/Onc Follow Up Note - OP Signed Patient: Ailyn Resendiz MR#: [id number] : 1995 Acct:[id number] Age/Sex: 27 / F Type: REG RCR Copies to: MD Mike Ewing MD~ Subjective Date/Time of Service: Date of Service: 01/21/2023 Time of Service: 15:00 Chief Complaint: Patient is here today for a 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 No new concerns HPI: 01/21/2023: Ailyn had review of restaging CT CAP by phone with [employer] in October--no evidence of recurrence. Saw dermatology 2 months ago with no new lesions. No pain or swelling at WLE site or right groin. Surveillance US with no change in lymph nodes right inguinal sentinel LN site. Recommend 3 month f/uafter restaging CT CAP with TSH/FT4 added to CBC, CMP, and LDH labs. Low complexity 25 minute followup visit. 07/09/2022: Ailyn is here for survivorship visit and follow-up after completing Nivolumab. She feels well overall. She notes her right lower leg edema seems to be slightly improved. She has some mild constipation from her oral iron, but is very well controlled with stool softeners as needed. Otherwiserodríguez has no new complaints. Inguinal US was unchanged with normal appearing lymphnodes. Labs are reviewed and stable, her iron saturation has improved to normal,but ferritin a bit low. We will continue to monitor her labs with repeat in 6 months at follow-up. We reviewed her survivorship plan in detail including her diagnosis, staging, treatments, follow-up after treatment and lifestyle changes.She was provided resources as well and all of her questions were answered appropriately. She was given a copy of her plan and will return in 6 months. 04/02/2022: Here for 3 month followup, cycle 10 Nivolumab--no significant changein right leg swelling with prolonged standing. No change of surgical site--has followup in dermatology within the next month. Tolerating immunotherapy well--she did have a brief period of chills and diaphoresis during February Nivolumab infusion with mild persistent fatigue thereafter. We reviewed labs showing normal hemoglobin--low iron saturation 4%, ferritin 14.3. She has not tolerated oral iron well in the past due to dyspepsia. We will coordinate parenteral iron at [facility] per her request. Normal thyroid, cortisol,and CMP labs. Restaging CT CAP shows no recurrence of disease--she may proceed with her last 2 cycles of Nivolumab and I will followup with her in 3 months foringuinal ultrasound and survivorship visit. 01/15/2022: Here for 3 month followup--notes increased swelling right leg when she is on her feet all day--uses compression stocking but feels this is more pronounced recently. No new skin lesions, pain or groin fullness. 12/31/2021 US right inguinal area without recurrence. No immunotherapy related toxicities. Due to lower extremity swelling, I will send doppler US to exclude DVT and we will contact her with results. She will continue monthly Nivolumab (cycle 7)--will send bidirectional imaging (CT CAP) for systemic restaging prior to next f/u in 3 months, sooner prn. 10/03/2021: Patient is here today for follow-up prior to Cycle 4 day 1 adjuvant Nivolumab for Stage III melanoma. Clinically, the patient is doing very well. Notes a couple days of increased fatigue following her infusions; but otherwise denies any significant issues/worsening problems. Specifically denies any cough,shortness of breath, dyspnea on exertion, diarrhea, skin changes, skin rash, eyechanges or new skin lesions. She denies any palpable lymphadenopathy. --She had surveillance ultrasound of the right groin, which was done on 09/23/2021, findings were reported as normal and benign appearing. 07/18/2021: Here for follow-up after cycle 1 day 1 nivolumab 07/11/2021. No infusion reaction and otherwise tolerated well other than mild fatigue. She denies any cough, dyspnea, diarrhea, skin changes, eye changes, or any other newsymptoms. Laboratories reviewed with stable renal and hepatic function. We will follow thyroid and endocrine studies. Her ulceration at the border of her skin graft has significantly improved. Will follow up with her in Septemberrior to restaging right inguinal ultrasound, sooner if new symptoms arise on immunotherapy. PREVIOUS HISTORY: This is a 27 year old female G0, no medical history, who presented with a changing mole of right leg since Nov 2020. Noted this increased in size, becamemore raised, then started bleeding after minor trauma. She was seen by dermatology at [facility] in [place] and underwent a biopsy of the right posterior leg on 04/23/21 showing an ulcerated melanoma, superficial spreading type, Breslow: at least 3.4 mm, invasive melanoma present on the deep and peripheral margins. She was referred to Dr. Sarah Nevarez and underwent WLE with 2 cm margins on 05/17/21, surgical margins clear of malignancy, and right inguinal and iliac SLNB, metastatic malignant melanoma of right inguinal sentinel node without extracapsular extension, largest deposit measured 0.03 mm (11/25). Her case was presented in Cutaneous Oncology tumor board with recommendation for imaging for metastatic staging and discussion of adjuvant immunotherapy. BRAF/NGS status pending. She is healing well after superficial wound infection over WLE site--right groinwell healed and nontender. Baseline MRI brain was performed with no metastatic lesions, but noted to have 5mm downward displacement of cerebellar tonsils possibly consistent with Chiari I malformation. She notes occasional low back pain, but no headaches, dizziness, numbness or muscle weakness. I reviewed her imaging with Dr. Penny--should not require further workup of this in absence of symptoms. Baseline PET/CT ordered today. We reviewed immunotherapy counseling for adjuvant Nivolumab every 4 weeks for 12 cycles. Goal of therapy is to prevent recurrence. Common toxicities were reviewed to include infusion reactions, rashes, fatigue, diarrhea, abnormal thyroid/adrenal/pituitary function. Other toxicities may include pneumonitis, neurologic, hepatic and renal toxicities. The patient signed informed consent and will follow-up as directed. DIAGNOSIS: T3b N1a (Stage III) malignant melanoma right leg PMH: none, regular menses, LMP one week ago, normal duration. FMH of DNS/MM: Does not endorse Skin: Baseline skin exam: Shave biopsy site scab which is circular measuring approximately 2 cm on the right posterior lower leg Lymphatic: No palpable lymph nodes in the right popliteal or inguinal basins - Summary of Therapies Summary of Therapies: 1. S/p wide local excision right lower leg with SLNB right inguinal lymph nodes05/17/2021 2. Adjuvant Nivolumab commenced: 07/11/2021--05/23/2022 3. Venofer for iron deficiency anemia at [facility] 03/2022 ROS Details: All systems reviewed & no additional complaints except as documented Subjective/ROS - Narrative: CONSTITUTIONAL: Negative for fatigue, negative for fever or night sweats. HEAD AND NECK: Negative for changes in hearing and vision. Negative for mouth ulcers, nasal congestion and nasal drainage. PULMONARY: Negative for chest pain, cough and dyspnea. CARDIOVASCULAR: Negative for claudication and irregular heartbeat/palpitations. GASTROINTESTINAL: Negative for abdominal pain, constipation, decreased appetite,diarrhea, nausea or vomiting. GENITOURINARY: Negative for dysuria and hematuria. ENDOCRINE: Negative for cold intolerance and heat intolerance. CENTRAL NERVOUS SYSTEM: Negative for gait disturbance and headache. No dizziness, numbness or weakness. PSYCHIATRIC: Negative for anxiety or depression. DERMATOLOGICAL: Negative for pruritus and rash. Healed right lower leg wide local excision with skin graft, no drainage at site. No new lesions right leg or groin. MUSCULOSKELETAL: Negative for low back pain and denies other bone/joint symptoms. Mild right leg swelling with prolonged standing (improving). HEMATOLOGICAL: Negative for bleeding and easy bruising. Negative for history of transfusion or thromboembolic disease ALLERGY: Negative for environmental allergies and food allergies. Mild Nivolumab infusion reaction in February 2022. PMFSH - History Attestation statement: The following information was validated with the patient. Source: Old Records Reviewed - Medical History Medical History: Medical History (Last Reviewed 01/21/23 @ 20:37 by Amanda Rosario MD) Anxiety LPRD (laryngopharyngeal reflux disease) Melanoma Orthostatic hypotension - Surgical History Surgical History: Surgical History (Last Reviewed 01/21/23 @ 20:37 by Amanda Rosario MD) H/O melanoma excision right calf History of lymph node biopsy right inguinal and sentinel lymph nodes 05/17/21 - Family History Family History: Family History (Last Reviewed 01/21/23 @ 20:37 by Amanda Rosario MD) Grandparent Breast cancer Heart disease Father Heart disease - Social History Smoking Status: Never smoker Substance Use Type: None Home Medications & Allergies Allergies No Known Allergies Allergy (Verified 01/21/23 14:57) Home Medications alprazolam 0.25 mg tablet (Xanax) 0.25 mg PO DAILY PRN Anxiety 06/18/21 [History Confirmed 01/21/23] [id number] 3-fat com #1 27 mg-1 mg-300 mg capsule cap PO 01/21/23 [History] Objective - Height/Weight Height/Weight: Height 5 ft 8 in Weight 67.2 kg BSA for Today's Weight 1.81 - Vital Signs Vital Signs: 01/21/23 14:57 Temperature 97.8 F Pulse Rate [Left Brachial] 72 Respiratory Rate 16 Blood Pressure [Left Arm] 119/79 02 Sat by Pulse Oximetry 98 Oxygen Delivery Method Room Air - Distress Screening Distress Screen Results: RN Distress Screening Start: 06/24/21 13:58 Freq: Status: Active Protocol: Document 01/31/22 15:50 AD (Rec: 01/31/22 15:50 AD [id number]) Distress Screening Distress Score: 0 No worry/distress Distress Screening Total 0 Physical Exam Narrative: CONSTITUTIONAL: The patient is in no acute distress. HEAD / FACE: Normocephalic. EYES: Pupils are equal and reactive to light. Conjunctivae and lids are benign in appearance. Ocular movement intact. EARS: Hearing grossly intact. NECK / THYROID: Neck is supple. Thyroid is symmetrical, without thyromegaly, masses or palpable nodules. LYMPHATIC: No palpable cervical, supraclavicular, axillary, or inguinal adenopathy--unchanged firm right inguinal area from prior sentinel LNB. RESPIRATORY: Normal to inspection. Lungs clear to auscultation and percussion. No wheezing, rales, rhonchi or rubs. Normal effort. CARDIOVASCULAR: Regular rate and rhythm. No murmurs, gallops, or rubs. ABDOMEN: Bowel sounds normoactive. Soft, nontender and non-distended. No hepatosplenomegaly. No masses noted. INTEGUMENTARY: The skin is remarkable for healed right lower leg wide local excision/skin graft. No rashes. No new suspicious lesions. Well healed right inguinal incision. MUSCULOSKELETAL: Normal musculature, no joint deformities or abnormalities, normal range of motion for all four extremities. EXTREMITIES: Resolved edema lower right leg, no cyanosis or clubbing. NEUROLOGICAL: Alert and oriented. Cranial nerves intact. No gross motor or sensory deficits. PSYCHIATRIC: No anxiety or evidence of depression. - ECOG Performance Status ECOG Score: 0 Results - Labs Labs: Diagram of Most Recent CBC and CMP 01/09/23 09:47 01/09/23 09:47 - Impressions Soft tissue ultrasound. Reason for exam: History of malignant melanoma right lower extremity. Follow-up. COMPARISON: Ultrasound 07/08/2022. TECHNIQUE: Grayscale and color Doppler imaging of the right groin was obtained. FINDINGS: 4 benign-appearing lymph nodes are identified involving the right groin, largest measuring 1.6 x 0.4 x 0.7 cm. Similar findings are noted on the prior ultrasound study with largest lymph node 1.4 cm. No sinister-appearing mass or lymph node is seen. No fluid collection is noted. US/US extremity nonvascular Impression: Lymph nodes are seen within the right groin, grossly similar to the prior study. Impression dictated by: Paresh Gilmore Jr., DDavidODavid01/09/2023 12:04 PM Assessment and Plan - TNM Staging Staging: pT3b pN1a (Stage III) malignant melanoma right leg s/p wide local excision 05/17/2021 (1) Malignant melanoma of right lower leg 27 year old female with ulcerated superficial spreading melanoma, Breslow depth 3.4mm now completely resected by WLE and 1 of 3 sentinel lymph nodes showed 0.03mm of involvement of melanoma (pT3b pN1a M0). She is now well healed from wide local excision 05/17/2021 and superficial wound infection. She signed informed consent for Nivolumab immunotherapy 480mg IV every 4 weeks for 12 treatments over nearly one year. We reviewed her baseline staging with whole body PET/CT prior to commencing therapy with cycle 1 day 1 07/11/2021. I sent her imaging to Dr. Nevarez--the only concerning finding was a nonspecific uptake of the left anterior pelvis not correlating to CT lesion. I will continue to follow ultrasounds and may repeat PET/CT in 6 months for bidirectional imaging. 07/11/2021: Cycle 1 day 1 Nivolumab immunotherapy 480 mg IV monthly for 12 cycles. Baseline PET/CT prior to therapy, then inguinal basin ultrasounds every6 months (alternate with bidirectional imaging every 6 months). 07/09/2022: She has completed her year of Nivolumab as of 05/23/2022 without residual toxicity. Most recent US negative for disease 10/03/2021: Patient reports for routine on treatment follow up. Today is Cycle 4Day 1 adjuvant Nivolumab for Stage III melanoma. Clinically, she is doing very well. Reports mild fatigue for a couple of days following treatment; but overall, displays no untoward side effects to immunotherapy. Her labs are unremarkable. No evidence of pituitary dysfunction. She had a right groin ultrasound on 09/23/2021 for surveillance of inguinal lymph nodes and these were reported as normal and benign appearing. 01/15/2022: Now reports 2+ nonpitting edema with standing. No immunotherapy related toxicities. 12/31/2021: Right inguinal ultrasound without new adenopathy, but will send for doppler US right lower extremity to r/o DVT and contact with results. Will send for 6 month bidirectional imaging prior to nextvisit (alternate and extend US to every 6 months). 04/03/2022: Edema in right leg now 1+ with compression stocking. One episode of infusion reaction with February infusion of Nivolumab. No other immunotherapy toxicities. No recurrence by restaging CT Chest/Abdomen/Pelvis. Next f/u 3 months after completing last 2 cycles of Nivolumab. US right groin and survivorship visit in 3 months. 07/09/2022: She has completed her course of Nivolumab and is doing very well overall. Inguinal US ok. We reviewed in detail her survivorship care plan and answered all of her questions appropriately. She was provided a copy of this as well as resource booklets to take home. She remains on oral iron with improvement in her counts so far. We will plan to repeat labs in 6 months at follow-up with repeat right inguinal US. She is in agreement with this plan. 01/21/2023: No new symptoms--edema of right lower leg is resolved--no recurrence by exam or ultrasound for surveillance. Now 8 months from completion of immunotherapy. I recommend continued surveillance--every 6 months by dermatology. She will return in [address] Chest, Abdomen and Pelvis for surveillance. TSH and FT4 with 3 month CBC, CMP, and LDH labs to followup priorimmunotherapy. Low complexity 25 minute followup. (2) Iron deficiency anemia Qualifiers: Iron deficiency anemia type: unspecified iron deficiency Qualified Code(s):D50.9 - Iron deficiency anemia, unspecified Recent increased fatigue--hemoglobin normal but increased fatigue with tachycardia. Iron saturation 4% with ferritin 7. [facility] x 3 doses[facility] 03/2022 with followup CBC, serum iron profile, and ferritin in one month. Consider GI evaluation for iron deficiency. 07/09/2022: She is doing well on oral iron recommended by her manager meat. She does not plan to have children anytime soon, but discussed with her manager meat the best iron supplementation to be on if she does plan to in the future. She has only mild constipation with the iron that is very well controlled with stool softeners as needed. Labs are improving and we will plan to recheck iron studiesagain in 6 months for further eval. 01/21/2023: Normal hemoglobin with iron saturation 20% and ferritin 13. Continueprenatal vitamin supplementation and may repeat symptomatic iron deficiency anemia with repeat Venofer infusions. (3) Edema of right lower extremity Likely due to peripheral venous insufficiency from prior melanoma/skin graft surgery right leg (no evidence of recurrence of melanoma)--no DVT on doppler US 01/24/2022. Continue compression stockings as needed. Improved from prior visits. (4) Chiari malformation type I Asymptomatic downward displacement of the cerebellar tonsils. I reviewed this with Dr. Penny who did not recommend any further evaluation. No concerning symptoms during immunotherapy, which has now been completed. - Chemo Plan Chemo Plan (Dose, Rate, Freq): Surveillance only now. She completed Nivolumab immunotherapy every 4 weeks for 12 treatments as of 05/23/2022 Number of Cycles: 12 Goal of Treatment: Curative - Time with Patient Time Spent with Patient (Follow Up Visit): 25 minutes - Low complexity f/u exam and US right inguinal lymph nodes Coordination of Care & Counseling Time: Greater than 50% of time spent with patient was for coordination of care (as documented) and [id number] counseling of patient and/or family. Dictated By: Amanda Rosario MD DD/ 1500 Signed By: <Electronically signed by MD Amanda Rosario> 01/21/232050 [facility] Work Phone: Reason for referral (narrative)* Name Reason for referral NA NA Dept. 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 Summary Purpose Family History No Family History Records Found Relationship Condition Age at Onset Recorded Date/T bree grandparent Malignant neoplasm of breast Unknown Heart disease Unknown father Heart disease Unknown Advance Directives No Advanced Directives Records Found Advance Directive Response Recorded Date/ Time Advance Directives No September 12, 2021 4:31pm Advance Directive Response Recorded Date/ Time Advance Directives No September 12, 2021 3:31pm Chief Complaint PostopPostopPostop Chief Complaint and Reason for Visit Chief Complaint MELANOMA Reason for Visit Iron deficiency anem ia Chiari malformation type I Edema of right lower extremity Encounter for antineoplastic immunotherapy Malignant melanoma of right lower leg Chief Complaint MELANOMA Reason for Visit Chiari malformation type I Edema of right lower extremity Encounter for antineoplastic immunotherapy Iron deficiency anemia Malignant melanoma of right lower leg Additional Source Comments INFORMATION SOURCE (unrecogn ized section and content) DATE CREATED AUTHOR 05/31/2021 [employer] DATE CREATED AUTHOR AUTHOR'S ORGANIZ ATION 06/18/2021 [facility] DATE CREATED AUTHOR AUTHOR'S ORGANIZ ATION 08/01/2021 [facility] DATE CREATED AUTHOR AUTHOR'S ORGANIZ ATION 01/18/2022 [facility] DATE CREATED AUTHOR AUTHOR'S ORGANIZ ATION 04/08/2023 [facility] DATE CREATED AUTHOR AUTHOR'S ORGANIZ ATION 08/24/2023 [facility] DATE CREATED AUTHOR AUTHOR'S ORGANIZ ATION 10/08/2023 [facility] EPIC Care Teams (unrecognized sec tion and content) Team Status: Active Member Role Status Dates Mike Wagner MD Primary Care Provider Active Team Status: Active Member Role Status Dates Amanda Rosario MD Attending Provider Active Sarah Nevarez MD Referring Provider Active Mike Wagner MD Primary Care Provider Active Goals (unrecognized section and content) Goals may be documented in a n alternate sectionGoals may be documented in an alternate sectionGoals may be documented in an alternate sectionGoals may be documented in an alternate section FOR RECORDS PERTAINING TO PATIENTS WHO ARE OR HAVE BEEN ENROLLED IN A CHEMICAL DEPENDENCY/SUBSTANCEABUSE PROGRAM, SOME INFORMATION MAY BE OMITTED. This clinical summary was aggregated from multiple sources. Caution should be exercised in using it in the provision of clinical care. This summary normalizes information from multiple sources, and as a consequence, information in this document may materially change the coding, format and clinical context of patient data. In addition, data may be omitted in some cases. CLINICAL DECISIONS SHOULD BE BASED ON THE PRIMARY CLINICAL RECORDS. [employer] provides no warranty or guarantee of the accuracy or completeness of information in this document.
== END 2023-10-09 19:00 | disposition home or self-care (01) | DRG 807 ==
LOC: US 18:37 → FBC 18:37
PROVIDERS: Admitting Provider Obstetrics & Gynecology; PCP Family Medicine; Visit Provider Obstetrics & Gynecology
DX: O70.1 Second degree perineal laceration during delivery (principal); Z37.0 Single live birth; Z3A.39 39 weeks gestation of pregnancy; Z85.820 Personal history of malignant melanoma of skin; Z83.3 Family history of diabetes mellitus; Z82.49 Family history of ischemic heart disease and other diseases of the circulatory system; Z23 Encounter for immunization
CPT/HCPCS: 36415; 59050; 59410; 76818; 80307; 85025; 85027; 86850; 86900; 86901; 96374; 96376

== ENCOUNTER 2023-10-12 08:10 | Outpatient (OUT) | payer BC, SELFPAY ==
--- NOTE | 2023-10-12 14:24 | PC.NURSE ---
Ailyn, and 4 day old son Rodger arrive for follow up. Parents states going pretty well Mom is getting sleep as father is very hands on and supportive of new mother. Scott states she feels well, stitches are bothersome but manageable VS and assessment WNL. No questions or concerns for self. States right nipple tender and latch is more difficult. Small area of blisters noted in a line, possible compression stripe. Parents watch NB assessment, discuss assessment of mouth for lip tie. Labial frenulum is evident yet upper lip rolls up to tip on nose easily. Tongue has short frenulum noted, baby extends tongue to gums not over lip, no cobblestoning of lips noted. Sucks on gloved finger well, able to cup tongue but limited movement in body of tongue. Infant does display milk protein on tongue. Baby to breast to right side which is more difficult latch. Mom displays good positioning for latch but allows to latch shallow causing discomfort. Shown to bring in deeper and to point nipple to nose for deepest latch. Rodger latches and nurses well for 20 minutes. Released latch, nipple rounded and no evidence of compression. Given info for pediatric dentist for evaluation of lip and tongue. Infant assessment WNL, large wet and green/brown stool diaper changed and infant has serum bili drawn as has had serial lab draws for elevated bili since discharge. Lab returns bili of 18.1, parents home at this time. Infant to be seen 10/13/2023 by PCP at 0930. Dr Stein given full report upon arrival to [facility] unit.
[2023-10-12 14:25] VITALS: BP 134/85; PULSE 89; RESP 16; TEMP 36.7; O2SAT 98
--- NOTE | 2023-10-12 14:31 | PC.NURSE ---
Pt brings Spectra pump and requests walk through for use. Has appropriate flange size and able to assemble pump. LC educated on buttons on pump and adjustment for comfort and milk removal. Verbalized understanding and able to return demo.
== END 2023-10-12 11:45 | disposition home or self-care (01) ==
LOC: FBCO 08:12
PROVIDERS: PCP Family Medicine; Visit Provider Obstetrics & Gynecology
DX: Z39.2 Encounter for routine postpartum follow-up (principal)

== ENCOUNTER 2023-10-19 08:43 | Outpatient (OUT) | payer BC, SELFPAY | END 2023-10-19 11:20 | disposition home or self-care (01) | PROVIDERS: PCP Family Medicine; Visit Provider Obstetrics & Gynecology | DX: Z39.1 Encounter for care and examination of lactating mother (principal) | CPT/HCPCS: G0463 ==

== ENCOUNTER 2024-02-10 21:06 | Outpatient (REF) | payer BC, SELFPAY ==
--- OUTSIDE RECORDS SUMMARY | 2024-02-10 21:12 | XMS_ITS | CCD ---
Author Organization [facility] Care Team Providers Care Other Spatial Scientist Name Role Phone Price Girard Unavailable Unavailable Unavailable Essence Blevins Unavailable Unavailable MD Amanda Rosario Attending Provider MD Sarah Nevarez Referring Provider MD Mike Wagner Primary Care Provider [phone] MD Amanda Rosario Attending Provider MD Sarah Nevarez Referring Provider MD Mike Wagner Primary Care Provider [phone] ELIZABETH ., DR ARROYO Admitting Unavailable ELIZABETH ., DR ARROYO Consulting Unavailable NADERER, DR MIKE Bolaños Primary Care Unavailable ELIZABETH ., DR ARROYO Attending Unavailable ELIZABETH ., DR ARROYO Consulting Unavailable ELIZABETH ., DR ARROYO Attending Unavailable NADERER, DR MIKE Bolaños Primary Care Unavailable ELIZABETH ., DR ARROYO Admitting Unavailable ZIEBER, DR MORE Rodarte Consulting Unavailable REQUEST, DR LEELA LISTED Consulting Unavaila ble [place]RAH[place], DR AMANDA Arroyo Admitting Unavailable NADERER, DR MIKE Bolaños Primary Care Unavailable ABRAHAM, DR AMANDA Arroyo Attending Unavailable NADERECayden, DR MIKE Bolaños Primary Care Unavailable NADERECayden, DR MIKE Bolaños Consulting Unavailable NADSHMUEL, DR MIKE Bolaños Attending Unavailable NADERECayden, DR MIKE Bolaños Admitting Unavailable ELIZABETH ., DR ARROYO Attending Unavailable ELIZABETH ., DR ARROYO Admitting Unavailable ELIZABETH ., DR ARROYO Consulting Unavailable NADSHMUEL, DR MIKE Bolaños Primary Care Unavailable ELIZABETH ., DR ARROYO Consulting Unavailable ELIZABETH ., DR ARROYO Attending Unavailable NADERER, DR MIKE Bolaños Primary Care Unavailable ELIAZBETH ., DR ARROYO Admitting Unavailable ELIZABETH ., [...] Provider MD Mike Wagner Primary Care Provider CRUZ JOHNSON Attending Unavailable ELIZABETHCRUZ Attending Unavailable Mike Wagner Primary Care Unavailable Amanda Rosario Admitting Unavailable Amanda Rosario Attending Unavailable Sarah Nevarez Referring Unavailable Allergies Allergy Classification Reported Allergen(s) Allergy [...] MG PO Daily August 19, 2023 12:00am Krr-Qjpj-[place] 3-Fat Com #1 (Pre-Jeanette Multivitamins/[place] als) 27-1-300 mg Capsule (3 sources) Start: 01-21-2023 Drl-Yguj-Fg-[place] 3-Fat Com #1 (Pre-Jeanette Multivitamins/Mine rals) 27-1-300 mg Capsule Active CAP PO January 21, 2023 1:00am Start: 01-21-2023 Irl-Xezb-Zn-Om ega 3-Fat Com #1 (Pre-Jeanette Multivitamins/Minerals) 27-1-300 [...] antineoplastic immunotherapy] 07-19-2021 Chronic Melanomas of skin (12 sources) Malignant melanoma of lower leg; Translations: [Malignant melanoma of skin of lower limb, including hip] Onset: 08-19-2023 07-19-2021 Chronic Menstrual disorders (7 sources) Irregular [...] Results Test Name Value Interpretation Reference Range Facility Complete Blood Count Auto Di ffon 08-17-2023 Basophils (Bld) [#/Vol] 0.0 10*3/uL Normal 0.0-0.2 [facility] Comment on above: Result Comment: PERF ORMED BY: [facility] [address] [facility] [place] [address] PATHOLOGIST [employer] ATTENDANT RUSS DAVIS M.D. Performed By: #### C MP, TSH3, CBC, T4F, T3F ####[place] [address] [place] [address] [facility] Basophils/100 WBC (Bld) 0.4 % Normal . [facility] Comment on above: Performed By: #### C MP, TSH3, CBC, T4F, T3F ####[address] [place] [address] [facility] Eosinophils (Bld) [#/Vol] 0.1 10*3/uL Normal 0.0-0.45 [facility] Comment on above: Performed By: #### C MP, TSH3, CBC, T4F, T3F ####[address] [place] [address] [place] Eosinophils/100 WBC (Bld) 0.6 % Normal . [facility] Comment on above: Performed By: #### C MP, TSH3, CBC, T4F, T3F ####[address] Erythrocyte distribution width (RBC) [Ratio] 13.3 % Normal 11.9-15.3 [facility] Comment on above: Performed By: #### C MP, TSH3, CBC, T4F, T3F ####[address] Hematocrit (Bld) [Volume fraction] 34.5 % Normal 34.0-46.4 [facility] Comment on above: Performed By: #### C MP, TSH3, CBC, T4F, T3F ####[address] Hemoglobin (Bld) [Mass/Vol] 11.6 g/dL Low 11.8-15.4 [facility] Comment on above: Performed By: #### C MP, TSH3, CBC, T4F, T3F ####[address] Lymphocytes (Bld) [#/Vol] 1.2 10*3/uL Normal 1.00-4.8 [facility] Comment on above: Performed By: #### C MP, TSH3, CBC, T4F, T3F ####[address] Lymphocytes/100 WBC (Bld) 12.2 % Normal . [facility] Comment on above: Performed By: #### C MP, TSH3, CBC, T4F, T3F ####[place] [id number] [facility] MCH (RBC) [Entitic mass] 30.5 pg Normal 24.7-34.3 [facility] Comment on above: Performed By: #### C MP, TSH3, CBC, T4F, T3F ####[place] [id number] [facility] MCV (RBC) [Entitic vol] 90.4 fL Normal 80-100 [facility] Comment on above: Performed By: #### C MP, TSH3, CBC, T4F, T3F ####[place] [id number] [facility] Mean Corpuscular HGB Conc 33.8 g/dL Normal 32.0-35.0 [facility] Comment on above: Performed By: #### C MP, TSH3, CBC, T4F, T3F ####[place] [id number] [facility] Monocytes (Bld) [#/Vol] 0.6 10*3/uL Normal 0.0-0.8 [facility] Comment on above: Performed By: #### C MP, TSH3, CBC, T4F, T3F ####[place] [id number] [facility] Monocytes/100 WBC (Bld) 6.5 % Normal . [facility] Comment on above: Performed By: #### C MP, TSH3, CBC, T4F, T3F ####[address] Neutrophils (Bld) [#/Vol] 7.8 10*3/uL High 1.8-7.7 [facility] Comment on above: Performed By: #### C MP, TSH3, CBC, T4F, T3F ####[place] [id number] [facility] Neutrophils/100 WBC (Bld) 80.3 % Normal . [facility] Comment on above: Performed By: #### C MP, TSH3, CBC, T4F, T3F ####[place] [id number] [facility] NRBC% 0.0 /100{WBC} Normal 0-0.5 [facility] Comment on above: Performed By: #### C MP, TSH3, CBC, T4F, T3F ####[address] [address] [facility] Platelet mean volume (Bld) [Entitic vol] 7.8 fL Normal 6.3-10.7 [facility] Comment on above: Performed By: #### C MP, TSH3, CBC, T4F, T3F ####[address] Platelets (Bld) [#/Vol] 237 10*3/uL Normal 150-450 [facility] Comment on above: Performed By: #### C MP, TSH3, CBC, T4F, T3F ####[address] RBC (Bld) [#/Vol] 3.82 10*6/uL Normal 3.60-5.00 [facility] Comment on above: Performed By: #### C MP, TSH3, CBC, T4F, T3F ####[address] WBC (Bld) [#/Vol] 9.7 10*3/uL Normal 3.8-11.6 [facility] Comment on above: Performed By: #### C MP, TSH3, CBC, T4F, T3F ####[address] Comprehensive Metabolic Pane dustin 08-17-2023 Albumin [Mass/Vol] 3.3 g/dL Low 3.5-5.7 [facility] Comment on above: Performed By: #### C MP, TSH3, CBC, T4F, T3F ####[address] Albumin/Globulin [Mass ratio] 1.5 {ratio} Normal [facility] Comment on above: Performed By: #### C MP, TSH3, CBC, T4F, T3F ####[address] ALP [Catalytic activity/Vol] 92 U/L Normal 34-104 [facility] Comment on above: Performed By: #### C MP, TSH3, CBC, T4F, T3F ####[address] ALT [Catalytic activity/Vol] 11 U/L Normal 7-52 [facility] Comment on above: Performed By: #### C MP, TSH3, CBC, T4F, T3F ####[place] [id number] [facility] Anion gap [Moles/Vol] 9.4 mmol/L Normal 6.0-15.0 [facility] Comment on above: Performed By: #### C MP, TSH3, CBC, T4F, T3F ####[place] [id number] [facility] AST [Catalytic activity/Vol] 16 U/L Normal 13-39 [facility] Comment on above: Performed By: #### C MP, TSH3, CBC, T4F, T3F ####[place] [id number] [facility] Bilirubin [Mass/Vol] 0.3 mg/dL Normal 0.3-1.0 [facility] Comment on above: Performed By: #### C MP, TSH3, CBC, T4F, T3F ####[place] [id number] [facility] Calcium [Mass/Vol] 8.5 mg/dL Low 8.6-10.3 [facility] Comment on above: Performed By: #### C MP, TSH3, CBC, T4F, T3F ####[place] [id number] [facility] Chloride [Moles/Vol] 105 mmol/L Normal 98-107 [facility] Comment on above: Performed By: #### C MP, TSH3, CBC, T4F, T3F ####[address] [address] [facility] CO2 [Moles/Vol] 27.3 mmol/L Normal 21.0-31.0 [facility] Comment on above: Performed By: #### C MP, TSH3, CBC, T4F, T3F ####[place] [id number] [facility] Creatinine [Mass/Vol] 0.65 mg/dL Normal 0.60-1.20 [facility] Comment on above: Performed By: #### C MP, TSH3, CBC, T4F, T3F ####[address] [place] [id number] [facility] Creatinine Clr Calc Pharmacy 132.31 [facility] Comment on above: Performed By: #### C MP, TSH3, CBC, T4F, T3F ####[place] [place] [id number] [facility] GFR/1.73 sq M.predicted MDRD (S/P/Bld) [Vol rate/Area] mL/min/{1.73_m2} [facility] Comment on above: Performed By: #### C MP, TSH3, CBC, T4F, T3F ####[address] [place] [id number] [facility] Globulin (S) [Mass/Vol] 2.2 g/dL Normal [facility] Comment on above: Performed By: #### C MP, TSH3, CBC, T4F, T3F ####[place] [id number] [facility] Glucose [Mass/Vol] 93 mg/dL Normal 70-100 [facility] Comment on above: Result Comment: [place] Glucose Reference Range is dependent on time and content of last meal. Glucose of more than 200 mg/dL in a nonstressed, ambulatory subject supports the diagnosis of Diabetes Mellitus. ADA recommended reference range Performed By: #### C MP, TSH3, CBC, T4F, T3F ####[place] [id number] [facility] Potassium [Moles/Vol] 3.7 mmol/L Normal 3.5-5.1 [facility] Comment on above: Performed By: #### C MP, TSH3, CBC, T4F, T3F ####[place] [id number] [facility] Protein [Mass/Vol] 5.5 g/dL Low 6.4-8.9 [facility] Comment on above: Performed By: #### C MP, TSH3, CBC, T4F, T3F ####[address] [place] [address] [facility] Sodium [Moles/Vol] 138 mmol/L Normal 136-145 [facility] Comment on above: Performed By: #### C MP, TSH3, CBC, T4F, T3F ####[address] [address] [facility] Urea nitrogen [Mass/Vol] 9 mg/dL Normal 06-16 [facility] Comment on above: Performed By: #### C MP, TSH3, CBC, T4F, T3F ####[place] [id number] [facility] Free T4 (Free Thyroxine)on 0 08-17-2023 Free T4 [Mass/Vol] 0.59 ng/dL Low 0.61-1.12 [facility] Comment on above: Performed By: #### C MP, TSH3, CBC, T4F, T3F ####[place] [id number] [facility] Thyroid Stimulating Hormoneo n 08-17-2023 TSH Qn 2.02 m[IU]/L Normal 0.45-5.33 [facility] Comment on above: Result Comment: PERF ORMED BY: [facility] [address] [place] [id number] PATHOLOGIST [employer]ICE [employer]ATION ATTENDANT RUSS DAVIS M.D. Performed By: #### C MP, TSH3, CBC, T4F, T3F ####[place] [id number] [facility] Triiodothyronine (T3) Freeon 08-17-2023 Triiodothyronine (T3) Free 2.72 pg/mL Normal 2.50-3.90 [facility] Comment on above: Result Comment: PERF ORMED BY: [place] [id number] PATHOLOGIST AUT[employer]BI[employer]ICE STATION ATTENDANT RUSS DAVIS M.D. Performed By: #### C MP, TSH3, CBC, T4F, T3F ####[address] [place] [address] [facility] US extremity nonvascularon 0 08-17-2023 US extremity nonvascular [facility] Main [place] [id number] Ultrasound Report Signed Patient: Ailyn Resendiz MR#: [id number] : 1995 Acct:[id number] Age/Sex: 28 / F ADM Date: 08/17/23 Loc: XT Room: Type: [facility] Attending Dr: Amanda Rosario MD Ordering Provider: [...] Thony Lopes M.D.08/17/2023 2:39 PM Dictation Location: [place] [address] Tech: Rivka Zhao Transcribed By: LEOPOLDO 08/17/23 143 Dictated By: Thony Lopes II, MD 08/17/23 1436 Signed By: 08/17/23 1439 [facility] US extremity nonvascularon 0 05-27-2023 US extremity nonvascular [facility] Main [address] [address] Ultrasound Report Signed Patient: Ailyn Resendiz MR#: [id number] : 1995 Acct:[id number] Age/Sex: 27 / F ADM Date: 05/27/23 Loc: XT Room: Type: [facility] RCR Attending Dr: Amanda Rosario MD Ordering Provider: [...] study. Impression dictated by: Paresh Gilmore Jr., D.O.05/27/2023 8:12 PM Dictation Location: [place] [address] Tech: Uma Quinteroemerald Transcribed By: LEOPOLDO 05/27/232011 Dictated By: Paresh Gilmore Jr, DO 05/27/232009 Signed By: 05/27/232011 Normal [facility] Adrenocorticotropic Hormone PLon 05-20-[address] 10.8 pg/mL Normal 7.2-63.3 [facility] Comment on above: Result Comment: ACTH reference interval for samples collected between 7 and 10 AM. Performed at: [facility] [address] [id number] Hand Folder: Sai Smalls PhD, Phone: [phone] PERFORMED BY: [place] [address] PATHOLOGIST [employer]ICE [employer]ATION ATTENDANT RUSS DAVIS M.D. Performed By: #### C MP, TSH3, T4F, T3F, CBC #### [address] #### ACTH #### [facility] , Alanine aminotransferase [En zymatic activity/volume] in Serum or PlasmaOrdered By: Amanda Rosario on 05-20-2023 ALT [Catalytic activity/Vol] 9 U/L - [facility] Albumin [Mass/volume] in Ser um or Plasma by Bromocresol green (BCG) dye binding methoOrdered By: Amanda Rosario on 05-20-2023 Albumin BCG dye [Mass/Vol] 3.8 g/dL 3.5-5.7 [facility] Alkaline phosphatase [Enzyma tic activity/volume] in Serum or PlasmaOrdered By: Amanda Rosario on 05-20-2023 ALP [Catalytic activity/Vol] 52 U/L 34-104 [facility] Aspartate aminotransferase [ Enzymatic activity/volume] in Serum or PlasmaOrdered By: Amanda Rosario on 05-20-2023 AST [Catalytic activity/Vol] 14 U/L 13-39 [facility] Basophils Auto (Bld) [#/Vol] Ordered By: Amanda Rosario on 05-20-2023 Basophils (Bld) [#/Vol] 0.0 10*3/uL 0.0-0.2 [facility] Basophils/100 WBC Auto (Bld) Ordered By: Amanda Rosario on 05-20-2023 Basophils/100 WBC (Bld) 0.4 % . [facility] Bilirubin.total [Mass/volume ] in Serum or PlasmaOrdered By: Amanda Rosario on 05-20-2023 Bilirubin [Mass/Vol] 0.5 mg/dL 0.3-1.0 [facility] Calcium [Mass/volume] in Ser um or PlasmaOrdered By: Amanda Rosario on 05-20-2023 Calcium [Mass/Vol] 8.5 mg/dL 8.6-10.3 [facility] Carbon dioxide, total [Moles /volume] in Serum or PlasmaOrdered By: Amanda Rosario on 05-20-2023 CO2 [Moles/Vol] 26.1 mmol/L 21.0-31.0 [facility] Chloride [Moles/volume] in [place] or PlasmaOrdered By: Amanda Rosario on 05-20-2023 Chloride [Moles/Vol] 104 mmol/L 98-107 [facility] Complete Blood Count Auto Di ffon 05-20-2023 Basophils (Bld) [#/Vol] 0.0 10*3/uL Normal 0.0-0.2 [facility] Comment on above: Result Comment: PERF ORMED BY: [place] [address] PATHOLOGIST [employer] ATTENDANT RUSS DAVIS M.D. Performed By: #### C MP, TSH3, T4F, T3F, CBC #### [address] #### ACTH #### [facility] , Basophils/100 WBC (Bld) 0.4 % Normal . [facility] Comment on above: Performed By: #### C MP, TSH3, T4F, T3F, CBC #### [address] #### ACTH #### [facility] , Eosinophils (Bld) [#/Vol] 0.1 10*3/uL Normal 0.0-0.45 [facility] Comment on above: Performed By: #### C MP, TSH3, T4F, T3F, CBC #### [address] #### ACTH #### [facility] , Eosinophils/100 WBC (Bld) 0.6 % Normal . [facility] Comment on above: Performed By: #### C MP, TSH3, T4F, T3F, CBC #### [place] [address] [place] #### ACTH #### [facility] , Erythrocyte distribution width (RBC) [Ratio] 13.1 % Normal 11.9-15.3 [facility] Comment on above: Performed By: #### C MP, TSH3, T4F, T3F, CBC #### [place] [address] [place] #### ACTH #### [facility] , Hematocrit (Bld) [Volume fraction] 34.7 % Normal 34.0-46.4 [facility] Comment on above: Performed By: #### C MP, TSH3, T4F, T3F, CBC #### [facility] [address] [place] [address] [place] #### ACTH #### [facility] , Hemoglobin (Bld) [Mass/Vol] 12.0 g/dL Normal 11.8-15.4 [facility] Comment on above: Performed By: #### C MP, TSH3, T4F, T3F, CBC #### [facility] [address] [place] [address] [place] #### ACTH #### [facility] , Lymphocytes (Bld) [#/Vol] 1.3 10*3/uL Normal 1.00-4.8 [facility] Comment on above: Performed By: #### C MP, TSH3, T4F, T3F, CBC #### [address] #### ACTH #### [facility] , Lymphocytes/100 WBC (Bld) 12.8 % Normal . [facility] Comment on above: Performed By: #### C MP, TSH3, T4F, T3F, CBC #### [place] [address] [place] #### ACTH #### [facility] , MCH (RBC) [Entitic mass] 31.5 pg Normal 24.7-34.3 [facility] Comment on above: Performed By: #### C MP, TSH3, T4F, T3F, CBC #### [place] [address] [place] #### ACTH #### [facility] , MCV (RBC) [Entitic vol] 91.1 fL Normal 80-100 [facility] Comment on above: Performed By: #### C MP, TSH3, T4F, T3F, CBC #### [facility] [address] [place] [address] [place] #### ACTH #### [facility] , Mean Corpuscular HGB Conc 34.6 g/dL Normal 32.0-35.0 [facility] Comment on above: Performed By: #### C MP, TSH3, T4F, T3F, CBC #### [facility] [address] [place] [address] [place] #### ACTH #### [facility] , Monocytes (Bld) [#/Vol] 0.7 10*3/uL Normal 0.0-0.8 [facility] Comment on above: Performed By: #### C MP, TSH3, T4F, T3F, CBC #### [facility] [address] [place] [address] [place] #### ACTH #### [facility] , Monocytes/100 WBC (Bld) 6.4 % Normal . [facility] Comment on above: Performed By: #### C MP, TSH3, T4F, T3F, CBC #### [facility] [address] [place] [address] [place] #### ACTH #### [facility] , Neutrophils (Bld) [#/Vol] 8.2 10*3/uL High 1.8-7.7 [facility] Comment on above: Performed By: #### C MP, TSH3, T4F, T3F, CBC #### [facility] [address] [place] [address] [place] #### ACTH #### [facility] , Neutrophils/100 WBC (Bld) 79.8 % Normal . [facility] Comment on above: Performed By: #### C MP, TSH3, T4F, T3F, CBC #### [facility] [address] [place] [address] [place] #### ACTH #### [facility] , NRBC% 0.2 /100{WBC} Normal 0-0.5 [facility] Comment on above: Performed By: #### C MP, TSH3, T4F, T3F, CBC #### [facility] [address] [place] [address] [place] #### ACTH #### [facility] , Platelet mean volume (Bld) [Entitic vol] 7.4 fL Normal 6.3-10.7 [facility] Comment on above: Performed By: #### C MP, TSH3, T4F, T3F, CBC #### [facility] [address] [place] [address] [place] #### ACTH #### [facility] , Platelets (Bld) [#/Vol] 256 10*3/uL Normal 150-450 [facility] Comment on above: Performed By: #### C MP, TSH3, T4F, T3F, CBC #### [address] #### ACTH #### [facility] , RBC (Bld) [#/Vol] 3.81 10*6/uL Normal 3.60-5.00 [facility] Comment on above: Performed By: #### C MP, TSH3, T4F, T3F, CBC #### [facility] [address] [place] [address] [place] #### ACTH #### [facility] , WBC (Bld) [#/Vol] 10.3 10*3/uL Normal 3.8-11.6 [facility] Comment on above: Performed By: #### C MP, TSH3, T4F, T3F, CBC #### [place] [address] [place] #### ACTH #### [facility] , Comprehensive Metabolic Pane dustin 05-20-2023 Albumin [Mass/Vol] 3.8 g/dL Normal 3.5-5.7 [facility] Comment on above: Performed By: #### C MP, TSH3, T4F, T3F, CBC #### [facility] [address] [place] [address] [place] #### ACTH #### [facility] , Albumin/Globulin [Mass ratio] 1.7 {ratio} Normal [facility] Comment on above: Performed By: #### C MP, TSH3, T4F, T3F, CBC #### [facility] [address] [place] [address] #### ACTH #### [facility] , ALP [Catalytic activity/Vol] 52 U/L Normal 34-104 [facility] Comment on above: Performed By: #### C MP, TSH3, T4F, T3F, CBC #### [facility] [address] [place] [address] [place] #### ACTH #### [facility] , ALT [Catalytic activity/Vol] 9 U/L Normal 7-52 [facility] Comment on above: Performed By: #### C MP, TSH3, T4F, T3F, CBC #### [facility] [address] [place] [address] [place] #### ACTH #### [facility] , Anion gap [Moles/Vol] 10.1 mmol/L Normal 6.0-15.0 [facility] Comment on above: Performed By: #### C MP, TSH3, T4F, T3F, CBC #### [facility] [address] [place] [address] [place] #### ACTH #### [facility] , AST [Catalytic activity/Vol] 14 U/L Normal 13-39 [facility] Comment on above: Performed By: #### C MP, TSH3, T4F, T3F, CBC #### [facility] [address] [place] [address] [place] #### ACTH #### [facility] , Bilirubin [Mass/Vol] 0.5 mg/dL Normal 0.3-1.0 [facility] Comment on above: Performed By: #### C MP, TSH3, T4F, T3F, CBC #### [facility] [address] [place] [address] [place] #### ACTH #### [facility] , Calcium [Mass/Vol] 8.5 mg/dL Low 8.6-10.3 [facility] Comment on above: Performed By: #### C MP, TSH3, T4F, T3F, CBC #### [facility] [address] [place] [address] [place] #### ACTH #### [facility] , Chloride [Moles/Vol] 104 mmol/L Normal 98-107 [facility] Comment on above: Performed By: #### C MP, TSH3, T4F, T3F, CBC #### [facility] [address] [place] [address] [place] #### ACTH #### [facility] , CO2 [Moles/Vol] 26.1 mmol/L Normal 21.0-31.0 [facility] Comment on above: Performed By: #### C MP, TSH3, T4F, T3F, CBC #### [facility] [address] [place] [address] [place] #### ACTH #### [facility] , Creatinine [Mass/Vol] 0.56 mg/dL Low 0.60-1.20 [facility] Comment on above: Performed By: #### C MP, TSH3, T4F, T3F, CBC #### [facility] [address] [place] [address] [place] #### ACTH #### [facility] , Creatinine Clr Calc Pharmacy 154.92 [facility] Comment on above: Performed By: #### C MP, TSH3, T4F, T3F, CBC #### [facility] [address] [place] [address] [place] #### ACTH #### [facility] , GFR/1.73 sq M.predicted MDRD (S/P/Bld) [Vol rate/Area] mL/min/{1.73_m2} [facility] Comment on above: Performed By: #### C MP, TSH3, T4F, T3F, CBC #### [facility] [address] [place] [address] [place] #### ACTH #### [facility] , Globulin (S) [Mass/Vol] 2.3 g/dL Normal [facility] Comment on above: Performed By: #### C MP, TSH3, T4F, T3F, CBC #### [place] [address] [place] #### ACTH #### [facility] , Glucose [Mass/Vol] 72 mg/dL Normal 70-100 [facility] Comment on above: Result Comment: [place] Glucose Reference Range is dependent on time and content of last meal. Glucose of more than 200 mg/dL in a nonstressed, ambulatory subject supports the diagnosis of Diabetes Mellitus. ADA recommended reference range Performed By: #### C MP, TSH3, T4F, T3F, CBC #### [place] [address] [place] #### ACTH #### [facility] , Potassium [Moles/Vol] 4.2 mmol/L Normal 3.5-5.1 [facility] Comment on above: Performed By: #### C MP, TSH3, T4F, T3F, CBC #### [facility] [address] [place] [address] [place] #### ACTH #### [facility] , Protein [Mass/Vol] 6.1 g/dL Low 6.4-8.9 [facility] Comment on above: Performed By: #### C MP, TSH3, T4F, T3F, CBC #### [facility] [address] [place] [address] [place] #### ACTH #### [facility] , Sodium [Moles/Vol] 136 mmol/L Normal 136-145 [facility] Comment on above: Performed By: #### C MP, TSH3, T4F, T3F, CBC #### [facility] [address] [place] [address] [place] #### ACTH #### [facility] , Urea nitrogen [Mass/Vol] 10 mg/dL Normal 7-25 [facility] Comment on above: Performed By: #### C MP, TSH3, T4F, T3F, CBC #### [facility] [address] [place] [address] [place] #### ACTH #### [facility] , Creatinine [Mass/volume] in Serum or PlasmaOrdered By: Amanda Rosario on 05-20-2023 Creatinine [Mass/Vol] 0.56 mg/dL 0.60-1.20 [facility] Eosinophils Auto (Bld) [#/Vo l]Ordered By: Amanda Rosario on 05-20-2023 Eosinophils (Bld) [#/Vol] 0.1 10*3/uL 0.0-0.45 [facility] Eosinophils/100 WBC Auto (Bl d)Ordered By: Amanda Rosario on 05-20-2023 Eosinophils/100 WBC (Bld) 0.6 % . [facility] Erythrocyte distribution wid th Auto (RBC) [Ratio]Ordered By: Amanda Rosario on 05-20-2023 Erythrocyte distribution width (RBC) [Ratio] 13.1 % 11.9-15.3 [facility] Free T4 (Free Thyroxine)on 0 05-20-2023 Free T4 [Mass/Vol] 0.86 ng/dL Normal 0.61-1.12 [facility] Comment on above: Performed By: #### C MP, TSH3, T4F, T3F, CBC #### [facility] [address] [place] [address] [place] #### ACTH #### [facility] , Globulin Calc (S) [Mass/Vol] Ordered By: Amanda Rosario on 05-20-2023 Globulin (S) [Mass/Vol] 2.3 g/dL [facility] Glucose [Mass/volume] in Ser um or PlasmaOrdered By: Amanda Rosario on 05-20-2023 Glucose [Mass/Vol] 72 mg/dL 70-100 [facility] Comment on above: ADA recommended refe rence rangeRandom Glucose Reference Range is dependent on time and content of last meal. Glucose of more than 200 mg/dL in a nonstressed, ambulatory subject supports the diagnosis of Diabetes Mellitus. Hematocrit Auto (Bld) [Volum e fraction]Ordered By: Amanda Rosario on 05-20-2023 Hematocrit (Bld) [Volume fraction] 34.7 % 34.0-46.4 [facility] Hemoglobin [Mass/volume] in BloodOrdered By: Amanda Rosario on 05-20-2023 Hemoglobin (Bld) [Mass/Vol] 12.0 g/dL 11.8-15.4 [facility] Leukocytes [#/volume] correc yanira for nucleated erythrocytes in Blood by Automated counOrdered By: Amanda Rosario on 05-20-2023 WBC corrected for nucl RBC Auto (Bld) [#/Vol] 10.3 10*3/uL 3.8-11.6 [facility] Lymphocytes Auto (Bld) [#/Vo l]Ordered By: Amanda Rosario on 05-20-2023 Lymphocytes (Bld) [#/Vol] 1.3 10*3/uL 1.00-4.8 [facility] Lymphocytes/100 WBC Auto (Bl d)Ordered By: Amanda Rosario on 05-20-2023 Lymphocytes/100 WBC (Bld) 12.8 % . [facility] MCH Auto (RBC) [Entitic mass ]Ordered By: Amanda Rosario on 05-20-2023 MCH (RBC) [Entitic mass] 31.5 pg 24.7-34.3 [facility] MCHC Auto (RBC) [Mass/Vol]Or dered By: Amanda Rosario on 05-20-2023 MCHC (RBC) [Mass/Vol] 34.6 g/dL 32.0-35.0 [facility] MCV Auto (RBC) [Entitic vol] Ordered By: Amanda Rosario on 05-20-2023 MCV (RBC) [Entitic vol] 91.1 fL 80-100 [facility] Monocytes Auto (Bld) [#/Vol] Ordered By: Amanda Rosario on 05-20-2023 Monocytes (Bld) [#/Vol] 0.7 10*3/uL 0.0-0.8 [facility] Monocytes/100 WBC Auto (Bld) Ordered By: Amanda Rosario on 05-20-2023 Monocytes/100 WBC (Bld) 6.4 % . [facility] Neutrophils Auto (Bld) [#/Vo l]Ordered By: Amanda Rosario on 05-20-2023 Neutrophils (Bld) [#/Vol] 8.2 10*3/uL 1.8-7.7 [facility] Neutrophils/100 WBC Auto (Bl d)Ordered By: Amanda Rosario on 05-20-2023 Neutrophils/100 WBC (Bld) 79.8 % . [facility] No Panel InformationOrdered By: Amanda Rosario on 05-20-2023 Adrenocorticotropic Hormone 10.8 pg/mL 7.2-63.3 [facility] Comment on above: ACTH reference inter cruz for samples collected between 7 and10 AM.Performed at: [facility] [address] [id number] Director: Sai Smalls PhD, Phone: [phone] Estimated GFR (CKD-EPI) > 60.0 mL/Min [facility] Creatinine Clearance (Chem 154.92 [facility] Nucleated erythrocytes [Pres ence] in Blood by Automated countOrdered By: Amanda Rosario on 05-20-2023 Nucleated RBC Auto Ql (Bld) 0.2 /100{WBC} 0-0.5 [facility] Platelet mean volume Auto (B ld) [Entitic vol]Ordered By: Amanda Rosario on 05-20-2023 Platelet mean volume (Bld) [Entitic vol] 7.4 fL 6.3-10.7 [facility] Platelets Auto (Bld) [#/Vol] Ordered By: Amanda Rosario on 05-20-2023 Platelets (Bld) [#/Vol] 256 10*3/uL 150-450 [facility] Potassium [Moles/volume] in Serum or PlasmaOrdered By: Amanda Rosario on 05-20-2023 Potassium [Moles/Vol] 4.2 mmol/L 3.5-5.1 [facility] Protein [Mass/volume] in Ser um or PlasmaOrdered By: Amanda Rosario on 05-20-2023 Protein [Mass/Vol] 6.1 g/dL 6.4-8.9 [facility] RBC Auto (Bld) [#/Vol]Ordere d By: Amanda Rosario on 05-20-2023 RBC (Bld) [#/Vol] 3.81 10*6/uL 3.60-5.00 [facility] Serum or plasma albumin/glob ulin mass ratioOrdered By: Amanda Rosario on 05-20-2023 Albumin/Globulin [Mass ratio] 1.7 {ratio} [facility] Serum or plasma anion gap de terminationOrdered By: Amanda Rosario on 05-20-2023 Anion gap [Moles/Vol] 10.1 mmol/L 6.0-15.0 [facility] Sodium [Moles/volume] in Ser um or PlasmaOrdered By: Amanda Rosario on 05-20-2023 Sodium [Moles/Vol] 136 mmol/L 136-145 [facility] Thyroid Stimulating Hormoneo n 05-20-2023 TSH Qn 1.31 m[IU]/L Normal 0.45-5.33 [facility] Comment on above: Result Comment: PERF ORMED BY: [place] [address] PATHOLOGIST [employer] ATTENDANT RUSS DAVIS M.D. Performed By: #### C MP, TSH3, T4F, T3F, CBC #### [facility] [address] [place] [address] #### ACTH #### [facility] , Thyrotropin [Units/volume] i n Serum or PlasmaOrdered By: Amanda Rosario on 05-20-2023 TSH Qn 1.31 m[IU]/L 0.45-5.33 [facility] Thyroxine (T4) free [Mass/vo lume] in Serum or PlasmaOrdered By: Amanda Rosario on 05-20-2023 Free T4 [Mass/Vol] 0.86 ng/dL 0.61-1.12 [facility] Triiodothyronine (T3) Freeon 05-20-2023 Triiodothyronine (T3) Free 2.91 pg/mL Normal 2.50-3.90 [facility] Comment on above: Result Comment: PERF ORMED BY: [facility] [address] [place] [address] PATHOLOGIST [employer] ATTENDANT RUSS DAVIS M.D. Performed By: #### C MP, TSH3, T4F, T3F, CBC #### [facility] [address] [place] [address] [place] #### ACTH #### [facility] , Triiodothyronine (T3) Free [ Mass/volume] in Serum or PlasmaOrdered By: Amanda Rosario on 05-20-2023 Free T3 [Mass/Vol] 2.91 pg/mL 2.50-3.90 [facility] Urea nitrogen [Mass/volume] in Serum or PlasmaOrdered By: Amanda Rosario on 05-20-2023 Urea nitrogen [Mass/Vol] 10 mg/dL 7 [facility] WBC Auto (Bld) [#/Vol]Ordere d By: Amanda Rosario on 05-20-2023 WBC (Bld) [#/Vol] 10.3 10*3/uL 3.8-11.6 [facility] HEP B SURFACE ANTIGEN SCREEN on 04-08-2023 HBsAg Screen Negative Normal Negative [facility] Comment on above: Performed By: #### T SH #### [facility] [address] [address] [address] Beth Pineda HEPATITIS C VIRUS AB W/ REFL EX QUANTon 04-08-2023 HCV AB Non-Reactive Normal Non Reactive [facility] Comment on above: Performed By: #### H CVPCRR #### [facility] [address] [address] [address] Beth Pineda HIV 1 AND 2 WITH REFLEXon HIV Screen 4th Generation wRfx Non-Reactive Normal Non Reactive [facility] Comment on above: Result Comment: HIV Negative HIV-1/HIV-2 antibodies and HIV-1 p24 antigen were NOT detected. There is no laboratory evidence of HIV infection. Performed By: #### H IV12 #### [facility] [address] [place] [address] Dr. Beth Pineda RPR QUANTon 04-08-2023 Rapid Plasma Reagin, Quant Non-Reactive Normal NonRea<1:1 [facility] Comment on above: Result Comment: Plea se Note: This test does not meet current guidelines for screening and diagnosis of syphilis. This test is intended for following treatment response in patients being treated for syphilis infection. To screen for syphilis infection, a reflex cascade that includes both RPR and a treponema-specific assay should be utilized, such as Treponema pallidum (Syphilis) Screening [place] (403864) or Rapid Plasma Reagin (RPR) Test With Reflex to Quantitative RPR and Confirmatory Treponema pallidum Antibodies (386726). Performed By: #### R PRQ #### [facility] [address] [place] [address] Dr. Beth Pineda RUBELLA AB IGGon 04-08-2023 Rubella Antibodies, IgG 1.35 index Normal Immu ne >0.99 [facility] Comment on above: Result Comment: Non- immune <0.90 Equivocal 0.90 - 0.99 Immune >0.99 Performed By: #### R UBIGG #### [facility] [address] [place] [address] Dr. Beth Pineda BOX TEST SENT OUTon 04-07-20 SENT TO REF LAB 04/07/23 Normal [facility] Comment on above: Performed By: #### B OX #### [facility] [address] [place] [address] Dr. Beth Pineda CBC AUTO DIFFon 04-07-2023 BASO # 0.1 103/ul Normal 0.0-0.1 [facility] Comment on above: Performed By: #### C BC #### [facility] [address] [place] [address] Dr. Beth Pineda Basophils/100 WBC (Bld) 0.7 % Normal 0.2-2.0 [facility] Comment on above: Performed By: #### C BC #### [facility] [address] [place] [address] Dr. Beth Pineda EO # 0.1 103/ul Normal 0.0-0.7 [facility] Comment on above: Performed By: #### C BC #### [facility] [address] [place] [address] Dr. Beth Pineda Eosinophils/100 WBC (Bld) 1.1 % Normal 0.9-7.0 [facility] Comment on above: Performed By: #### C BC #### [facility] [address] [place] [address] Dr. Beth Pineda Erythrocyte distribution width (RBC) [Ratio] 12.5 % Normal 11.0-15.0 [facility] Comment on above: Performed By: #### C BC #### [facility] [address] [place] [address] Dr. Beth Pineda Hematocrit (Bld) [Volume fraction] 37.8 % Normal 36.0-48.0 [facility] Comment on above: Performed By: #### C BC #### [facility] [address] [place] [address] Dr. Beth Pineda Hemoglobin (Bld) [Mass/Vol] 13.1 g/dL Normal 12.0-16.0 [facility] Comment on above: Performed By: #### C BC #### [facility] [address] [place] [address] Dr. Beth Pineda IG # 0.02 10e3/ul Normal 0.00-0.03 [facility] Comment on above: Performed By: #### C BC #### [facility] [address] [place] [address] Dr. Beth Pineda IG % 0.3 % Normal 0.0-0.5 [facility] Comment on above: Performed By: #### C BC #### [facility] [address] [place] [address] Dr. Beth Pineda LYMPH # 1.5 103/ul Normal 1.2-3.8 [facility] Comment on above: Performed By: #### C BC #### [facility] [address] [place] [address] Dr. Beth Pineda Lymphocytes/100 WBC (Bld) 19.9 % Critically low 20.5-60.0 [facility] Comment on above: Performed By: #### C BC #### [facility] [address] [place] [address] Dr. Beth Pineda MANUAL DIFF REQ NO Normal [facility] Comment on above: Performed By: #### C BC #### [facility] [address] [place] [address] Dr. Beth Pineda MCH (RBC) [Entitic mass] 31.3 pg Normal 26.7-34.0 [facility] Comment on above: Performed By: #### C BC #### [facility] [address] [place] [address] Dr. Beth Pineda MCHC (RBC) [Mass/Vol] 34.7 g/dL Normal 29.9-35.2 [facility] Comment on above: Performed By: #### C BC #### [facility] [address] [place] [address] Dr. Beth Pineda MCV (RBC) [Entitic vol] 90.2 fL Normal 81.0-99.0 [facility] Comment on above: Performed By: #### C BC #### [facility] [address] [place] [address] Dr. Beth Pineda MONO # 0.5 103/ul Normal 0.3-0.8 [facility] Comment on above: Performed By: #### C BC #### [facility] [address] [place] [address] Dr. Beth Pineda Monocytes/100 WBC (Bld) 6.1 % Normal 1.7-12.0 [facility] Comment on above: Performed By: #### C BC #### [facility] [address] [place] [address] Dr. Beth Pineda NEUT # 5.4 103/ul Normal 1.4-6.5 [facility] Comment on above: Performed By: #### C BC #### [facility] [address] [address] [address] Beth Pineda Neutrophils/100 WBC (Bld) 71.9 % Normal 43.0-75.0 [facility] Comment on above: Performed By: #### C BC #### [facility] [address] [place] [address] Dr. Beth Pineda Platelet mean volume (Bld) [Entitic vol] 8.9 fL Critically low 9.5-13.5 [facility] Comment on above: Performed By: #### C BC #### [facility] [address] [place] [address] Dr. Beth Pineda PLT 272 103/ul Normal 150-450 [facility] Comment on above: Performed By: #### C BC #### [facility] [address] [place] [address] Dr. Beth Pineda RBC 4.19 106/ul Critically low 4.20-5.40 [facility] Comment on above: Performed By: #### C BC #### [facility] [address] [place] [address] Dr. Beth Pineda WBC 7.5 103/ul Normal 4.0-11.0 [facility] Comment on above: Performed By: #### C BC #### [facility] [address] [place] [address] Dr. Beth Pineda CULTURE URINEon 04-07-2023 CULTURE URINE Culture Observations : NO GROWTH. Normal [facility] Comment on above: Performed By: #### T SH #### [facility] [address] [place] [address] Dr. Beth Pineda GLYCOHEMOGLOBIN A1Con 2022 ADA RECOMMENDATION SEE BELOW Normal [facility] Comment on above: Result Comment: ADA RECOMMENDED LIMIT 4.0 - 6.0 ADA THERAPEUTIC TARGET < 7.0 ACTION SUGGESTED > 7.0 Performed By: #### A 1C #### [facility] [address] [place] [address] Dr. Beth Pineda Glucose [Mass/Vol] 82 mg/dL Normal [facility] Comment on above: Performed By: #### A 1C #### [facility] [address] [address] [address] Beth Pineda HbA1c (Bld) [Mass fraction] 4.5 % Normal 4.5-6.2 [facility] Comment on above: Performed By: #### A 1C #### [facility] [address] [address] [address] Beth Pineda TSHon 04-07-2023 TSH 2.191 uIU/mL Normal 0.358-3.740 [facility] Comment on above: Performed By: #### T SH #### [facility] [address] [address] [address] Beth Pineda TYPE AND SCREENon 04-07-2023 TYPE AND SCREEN Negative Normal [facility] Comment on above: Performed By: #### T SH #### [facility] [address] [address] [address] Beth Pineda US PREG TVon 03-13-2023 [...] MORE [place]AR[place] Date: 2023-03-13 09:37 Normal [facility] PREG QUANT HCGon 02-27-2023 HCG QUANT 13394 mIU/mL Normal [facility] Comment on above: Performed By: #### A 1C #### [facility] [address] [address] [address] Beth Pineda HCG RANGE SEE BELOW Normal [facility] Comment on above: Result Comment: 5-50 0.2-1 WEEK 50-500 1-2 WEEKS 100-5,000 2-3 WEEKS 500-10,000 3-4 WEEKS 1,000-50,000 4-5 WEEKS 10,000-100,000 5-6 WEEKS 15,000-200,000 6-8 WEEKS 10,000-100,000 2-3 MONTHS Performed By: #### A 1C #### [facility] [address] [place] [address] Dr. Beth Pineda PREG QUANT HCGon 02-11-2023 HCG QUANT 57 mIU/mL Normal [facility] Comment on above: Performed By: #### A 1C #### [facility] [address] [place] [address] Dr. Beth Pineda HCG RANGE SEE BELOW Normal [facility] Comment on above: Result Comment: 5-50 0.2-1 WEEK 50-500 1-2 WEEKS 100-5,000 2-3 WEEKS 500-10,000 3-4 WEEKS 1,000-50,000 4-5 WEEKS 10,000-100,000 5-6 WEEKS 15,000-200,000 6-8 WEEKS 10,000-100,000 2-3 MONTHS Performed By: #### A 1C #### [facility] [address] [place] [address] Dr. Beth Pineda PREG QUANT HCGon 02-09-2023 HCG QUANT 14 mIU/mL Normal [facility] Comment on above: Performed By: #### P REGQNT #### [facility] [address] [place] [address] Dr. Beth Pineda HCG RANGE SEE BELOW [facility] Comment on above: Result Comment: 5-50 0.2-1 WEEK 50-500 1-2 WEEKS 100-5,000 2-3 WEEKS 500-10,000 3-4 WEEKS 1,000-50,000 4-5 WEEKS 10,000-100,000 5-6 WEEKS 15,000-200,000 6-8 WEEKS 10,000-100,000 2-3 MONTHS Performed By: #### P REGQNT #### [facility] [address] [place] [address] Dr. Beth Pineda ANTI-MULLERIAN HORMONEon Anti-Mullerian Hormone (AMH) 12.5 ng/mL Normal [facility] Comment on above: Result Comment: For assays employing antibodies, the possibility exists for interference by heterophile antibodies in the samples.1 1.Tanja Rendon Interferences in Immunoassays - still a threat. Clin. Chem. 2000; 46: 5933-7882. This test was developed and its performance characteristics determined by [employer]. It has not been cleared or approved by the Food and Drug Administration. Reference Range: Females 20 - 25y: 1.23 - 11.51 Median 4.70 AMH concentrations of >= 1.06 ng/mL is correlated with a better response to ovarian stimulation, produced more retrievable oocytes and higher odds of live according to Gaye et al. Fertility and Sterility. 2010: 94:8100-9826. The current AMH test method correlates with [...] tumor. Performed By: #### T SH #### [facility] [address] [address] [address] Beth Pineda PAP ACOG PANEL 2: 21 to 29on 01-20-2023 . . Normal [facility] Comment on above: Performed By: #### T SH #### [facility] [address] [address] [address] Beth Pineda Age Gdln ACOG Testing - Normal [facility] Comment on above: Performed By: #### T SH #### [facility] [address] [address] [address] Beth Pineda DIAGNOSIS: Comment [facility] Comment on above: Result Comment: NEGA TIVE FOR INTRAEPITHELIAL LESION OR MALIGNANCY. Performed By: #### T SH #### [facility] [address] [address] [address] Beth Pineda Methodology: Comment [facility] Comment on above: Result Comment: This liquid based ThinPrep(R) pap test was screened with the use of an image guided system. Performed By: #### T SH #### [facility] [address] [address] [address] Beth Pineda Note: Comment Normal [facility] Comment on above: Result Comment: The Pap smear is a screening test designed to aid in the detection of premalignant and malignant conditions of the uterine cervix. It is not a diagnostic procedure and should not be used as the sole means of detecting cervical cancer. Both false-positive and false-negative reports do occur. . Performed By: #### T SH #### [facility] [address] [address] [address] Beth Pineda Performed by: Comment Normal [facility] Comment on above: Result Comment: Pato Gonzalez, Core Sticker (ASCP) Performed By: #### T SH #### [facility] [address] [place] [address] Dr. Beth Pineda Reflex Criteria: Comment Normal [facility] Comment on above: Result Comment: The HPV DNA reflex criteria were not met with this specimen result therefore, no HPV testing was performed. . Performed By: #### T SH #### [facility] [address] [place] [address] Dr. Beth Pineda Specimen adequacy: Comment Normal [facility] Comment on above: Result Comment: Sati sfactory for evaluation. Endocervical and/or squamous metaplastic cells (endocervical component) are present. Performed By: #### T SH #### [facility] [address] [place] [address] Dr. Beth Pineda Albumin [Mass/volume] in Ser um or PlasmaOrdered By: Amanda Rosario on 01-09-2023 Albumin [Mass/Vol] 4.3 g/dL 3.2-5.5 [facility] Alkaline phosphatase [Enzyma tic activity/volume] in Serum or PlasmaOrdered By: Amanda Rosario on 01-09-2023 ALP [Catalytic activity/Vol] 54 U/L 32-92 [facility] Aspartate aminotransferase [ Enzymatic activity/volume] in Serum or PlasmaOrdered By: Amnada Rosario on 01-09-2023 AST [Catalytic activity/Vol] 21 U/L 10-42 [facility] Basophils Auto (Bld) [#/Vol] Ordered By: Amanda Rosario on 01-09-2023 Basophils (Bld) [#/Vol] 0.0 10*3/uL 0.0-0.2 [facility] Basophils/100 WBC Auto (Bld) Ordered By: Amanda Rosario on 01-09-2023 Basophils/100 WBC (Bld) 0.7 % . [facility] Bilirubin.total [Mass/volume ] in Serum or PlasmaOrdered By: Amanda Rosario on 01-09-2023 Bilirubin [Mass/Vol] 0.7 mg/dL 0.3-1.[address] [facility] [address] biopsyOrdered By: Amanda Nino se on 01-09-2023 Transferrin [Mass/Vol] 265 mg/dL 180-380 [facility] Calcium [Mass/volume] in Ser um or PlasmaOrdered By: Amanda Rosario on 01-09-2023 Calcium [Mass/Vol] 9.6 mg/dL 8.2-10.2 [facility] Carbon dioxide, total [Moles /volume] in Serum or PlasmaOrdered By: Amanda Rosario on 01-09-2023 CO2 [Moles/Vol] 27.2 mmol/L 22.0-30.0 [facility] Chloride [Moles/volume] in [place] or PlasmaOrdered By: Amanda Rosario on 01-09-2023 Chloride [Moles/Vol] 104 mmol/L 95-114 [facility] Complete Blood Count Auto Di ffon 01-09-2023 Basophils (Bld) [#/Vol] 0.0 10*3/uL Normal 0.0-0.2 [facility] Comment on above: Result Comment: PERF ORMED BY: [facility] [address] [place] [address] PATHOLOGIST [employer] ATTENDANT RUSS DAVIS M.D. Performed By: #### C MP, FE and TIBC, CBC, EFRAIN ####[facility] [id number] [place] [address] [facility] Basophils/100 WBC (Bld) 0.7 % Normal . [facility] Comment on above: Performed By: #### C MP, FE and TIBC, CBC, EFRAIN ####[address] Eosinophils (Bld) [#/Vol] 0.1 10*3/uL Normal 0.0-0.45 [facility] Comment on above: Performed By: #### C MP, FE and TIBC, CBC, EFRAIN ####[address] Eosinophils/100 WBC (Bld) 1.3 % Normal . [facility] Comment on above: Performed By: #### C MP, FE and TIBC, CBC, EFRAIN ####[address] Erythrocyte distribution width (RBC) [Ratio] 13.1 % Normal 11.9-15.3 [facility] Comment on above: Performed By: #### C MP, FE and TIBC, CBC, EFRAIN ####[address] Hematocrit (Bld) [Volume fraction] 39.5 % Normal 34.0-46.4 [facility] Comment on above: Performed By: #### C MP, FE and TIBC, CBC, EFRAIN ####[address] Hemoglobin (Bld) [Mass/Vol] 13.1 g/dL Normal 11.8-15.4 [facility] Comment on above: Performed By: #### C MP, FE and TIBC, CBC, EFRAIN ####[address] Lymphocytes (Bld) [#/Vol] 1.0 10*3/uL Normal 1.00-4.8 [facility] Comment on above: Performed By: #### C MP, FE and TIBC, CBC, EFRAIN ####[address] Lymphocytes/100 WBC (Bld) 20.2 % Normal . [facility] Comment on above: Performed By: #### C MP, FE and TIBC, CBC, EFRAIN ####[address] MCH (RBC) [Entitic mass] 30.0 pg Normal 24.7-34.3 [facility] Comment on above: Performed By: #### C MP, FE and TIBC, CBC, EFRAIN ####[address] MCV (RBC) [Entitic vol] 90.3 fL Normal 80-100 [facility] Comment on above: Performed By: #### C MP, FE and TIBC, CBC, EFRAIN ####[address] Mean Corpuscular HGB Conc 33.2 g/dL Normal 32.0-35.0 [facility] Comment on above: Performed By: #### C MP, FE and TIBC, CBC, EFRAIN ####[address] Monocytes (Bld) [#/Vol] 0.5 10*3/uL Normal 0.0-0.8 [facility] Comment on above: Performed By: #### C MP, FE and TIBC, CBC, EFRAIN ####[address] Monocytes/100 WBC (Bld) 10.5 % Normal . [facility] Comment on above: Performed By: #### C MP, FE and TIBC, CBC, EFRAIN ####[address] Neutrophils (Bld) [#/Vol] 3.2 10*3/uL Normal 1.8-7.7 [facility] Comment on above: Performed By: #### C MP, FE and TIBC, CBC, EFRAIN ####[address] Neutrophils/100 WBC (Bld) 67.3 % Normal . [facility] Comment on above: Performed By: #### C MP, FE and TIBC, CBC, EFRAIN ####[place] [address] [place] NRBC% 0.1 /100{WBC} Normal 0-0.5 [facility] Comment on above: Performed By: #### C MP, FE and TIBC, CBC, EFRAIN ####[address] Platelet mean volume (Bld) [Entitic vol] 7.9 fL Normal 6.3-10.7 [facility] Comment on above: Performed By: #### C MP, FE and TIBC, CBC, EFRAIN ####[address] Platelets (Bld) [#/Vol] 290 10*3/uL Normal 150-450 [facility] Comment on above: Performed By: #### C MP, FE and TIBC, CBC, EFRAIN ####[address] RBC (Bld) [#/Vol] 4.37 10*6/uL Normal 3.60-5.00 [facility] Comment on above: Performed By: #### C MP, FE and TIBC, CBC, EFRAIN ####[address] WBC (Bld) [#/Vol] 4.8 10*3/uL Normal 3.8-11.6 [facility] Comment on above: Performed By: #### C MP, FE and TIBC, CBC, EFRAIN ####[address] Comprehensive Metabolic Pane dustin 01-09-2023 Albumin [Mass/Vol] 4.3 g/dL Normal 3.2-5.5 [facility] Comment on above: Performed By: #### C MP, FE and TIBC, CBC, EFRAIN ####[address] Albumin/Globulin [Mass ratio] 1.9 {ratio} Normal [facility] Comment on above: Performed By: #### C MP, FE and TIBC, CBC, EFRAIN ####[place] [id number] [facility] ALP [Catalytic activity/Vol] 54 U/L Normal 32-92 [facility] Comment on above: Performed By: #### C MP, FE and TIBC, CBC, EFRAIN ####[place] [id number] [facility] ALT [Catalytic activity/Vol] 20 U/L Normal 10-60 [facility] Comment on above: Performed By: #### C MP, FE and TIBC, CBC, EFRAIN ####[place] [id number] [facility] Anion gap [Moles/Vol] 10.2 mmol/L Normal 6.0-15.0 [facility] Comment on above: Performed By: #### C MP, FE and TIBC, CBC, EFRAIN ####[place] [id number] [facility] AST [Catalytic activity/Vol] 21 U/L Normal 10-42 [facility] Comment on above: Performed By: #### C MP, FE and TIBC, CBC, EFRAIN ####[place] [id number] [facility] Bilirubin [Mass/Vol] 0.7 mg/dL Normal 0.3-1.2 [facility] Comment on above: Performed By: #### C MP, FE and TIBC, CBC, EFRAIN ####[place] [id number] [facility] Calcium [Mass/Vol] 9.6 mg/dL Normal 8.2-10.2 [facility] Comment on above: Performed By: #### C MP, FE and TIBC, CBC, EFRAIN ####[place] [id number] [facility] Chloride [Moles/Vol] 104 mmol/L Normal 95-114 [facility] Comment on above: Performed By: #### C MP, FE and TIBC, CBC, EFRAIN ####[place] [id number] [facility] CO2 [Moles/Vol] 27.2 mmol/L Normal 22.0-30.0 [facility] Comment on above: Performed By: #### C MP, FE and TIBC, CBC, EFRAIN ####[address] Creatinine [Mass/Vol] 0.72 mg/dL Normal 0.44-1.03 [facility] Comment on above: Performed By: #### C MP, FE and TIBC, CBC, EFRAIN ####[address] Creatinine Clr Calc Pharmacy 120.49 [facility] Comment on above: Performed By: #### C MP, FE and TIBC, CBC, EFRAIN ####[address] Estimated GFR ( Parul > 60 [facility] Comment on above: Result Comment: GFR estimated reference range: According to KDOQI guidelines, <60 ml/min/1.73m2 is sufficient to diagnose a patient with chronic kidney disease. Performed By: #### C MP, FE and TIBC, CBC, EFRAIN ####[address] Estimated GFR (Non- Am > 60 [facility] Comment on above: Performed By: #### C MP, FE and TIBC, CBC, EFRAIN ####[address] Globulin (S) [Mass/Vol] 2.3 g/dL Normal [facility] Comment on above: Performed By: #### C MP, FE and TIBC, CBC, EFRAIN ####[address] Glucose [Mass/Vol] 80 mg/dL Normal 70-100 [facility] Comment on above: Result Comment: [place] om Glucose Reference Range is dependent on time and content of last meal. Glucose of more than 200 mg/dL in a nonstressed, ambulatory subject supports the diagnosis of Diabetes Mellitus. ADA recommended reference range Performed By: #### C MP, FE and TIBC, CBC, EFRAIN ####[address] [place] [address] [facility] Potassium [Moles/Vol] 4.4 mmol/L Normal 3.5-5.1 [facility] Comment on above: Performed By: #### C MP, FE and TIBC, CBC, EFRAIN ####[facility] [place] [id number] [facility] Protein [Mass/Vol] 6.6 g/dL Normal 6.1-7.9 [facility] Comment on above: Performed By: #### C MP, FE and TIBC, CBC, EFRAIN ####[place] [id number] [place] [id number] [facility] Sodium [Moles/Vol] 137 mmol/L Normal 136-146 [facility] Comment on above: Performed By: #### C MP, FE and TIBC, CBC, EFRAIN ####[place] [id number] [facility] Urea nitrogen [Mass/Vol] 13 mg/dL Normal 9-23 [facility] Comment on above: Performed By: #### C MP, FE and TIBC, CBC, EFRAIN ####[address] Creatinine and Glomerular fi ltration rate.predicted panel (S/P/Bld)Ordered By: Amanda Rosario on 01-09-2023 Creatinine [Mass/Vol] 0.72 mg/dL 0.44-1.03 [facility] Eosinophils Auto (Bld) [#/Vo l]Ordered By: Amanda Rosario on 01-09-2023 Eosinophils (Bld) [#/Vol] 0.1 10*3/uL 0.0-0.45 [facility] Eosinophils/100 WBC Auto (Bl d)Ordered By: Amanda Rosario on 01-09-2023 Eosinophils/100 WBC (Bld) 1.3 % . [facility] Erythrocyte distribution wid th Auto (RBC) [Ratio]Ordered By: Amanda Rosario on 01-09-2023 Erythrocyte distribution width (RBC) [Ratio] 13.1 % 11.9-15.3 [facility] Estimated glomerular filtrat ion rate (GFR) non- AmericanOrdered By: Amanda Rosario on 01-09-2023 GFR/1.73 sq M.predicted among non-blacks MDRD (S/P/Bld) [Vol rate/Area] > 60 mL/Min [facility] Ferritinon 01-09-2023 Ferritin [Mass/Vol] 13.4 ng/mL Normal 11-306.8 [facility] Comment on above: Result Comment: PERF ORMED BY: [facility] [address] [place] [address] PATHOLOGIST [employer]ICE STATION ATTENDANT RUSS DAVIS M.D. Performed By: #### C MP, FE and TIBC, CBC, EFRAIN ####[facility] [id number] [place] [id number] [facility] Ferritin [Mass/volume] in Se rum or PlasmaOrdered By: Amanda Rosario on 01-09-2023 Ferritin [Mass/Vol] 13.4 ng/mL 11-306.8 [facility] Globulin Calc (S) [Mass/Vol] Ordered By: Amanda Rosario on 01-09-2023 Globulin (S) [Mass/Vol] 2.3 g/dL [facility] Glucose [Mass/volume] in Ser um or PlasmaOrdered By: Amanda Rosario on 01-09-2023 Glucose [Mass/Vol] 80 mg/dL 70-100 [facility] Comment on above: ADA recommended refe rence rangeRandom Glucose Reference Range is dependent on time and content of last meal. Glucose of more than 200 mg/dL in a nonstressed, ambulatory subject supports the diagnosis of Diabetes Mellitus. Hematocrit Auto (Bld) [Volum e fraction]Ordered By: Amanda Rosario on 01-09-2023 Hematocrit (Bld) [Volume fraction] 39.5 % 34.0-46.4 [facility] Hemoglobin [Mass/volume] in BloodOrdered By: Amanda Rosario on 01-09-2023 Hemoglobin (Bld) [Mass/Vol] 13.1 g/dL 11.8-15.4 [facility] Iron [Mass/volume] in Serum or PlasmaOrdered By: Amanda Rosario on 01-09-2023 Iron [Mass/Vol] 75 ug/dL 40-150 [facility] Iron and TIBC Profileon 12-24 % Iron Saturation 20.2 % Normal 20-50 [facility] Comment on above: Performed By: #### C MP, FE and TIBC, CBC, EFRAIN ####[facility] [id number] [place] [address] [facility] Iron [Mass/Vol] 75 ug/dL Normal 40-150 [facility] Comment on above: Performed By: #### C MP, FE and TIBC, CBC, EFRAIN ####[facility] [id number] [place] [id number] [facility] Total Iron Binding Capacity 371 ug/dL Normal 255-450 [facility] Comment on above: Performed By: #### C MP, FE and TIBC, CBC, EFRAIN ####[facility] [id number] [place] [id number] [facility] Transferrin [Mass/Vol] 265 mg/dL Normal 180-380 [facility] Comment on above: Performed By: #### C MP, FE and TIBC, CBC, EFRAIN ####[facility] [place] [id number] [facility] Iron binding capacity [Mass/ volume] in Serum or PlasmaOrdered By: Amanda Rosario on 01-09-2023 Iron binding capacity [Mass/Vol] 371 ug/dL 255-450 [facility] Iron saturation [Mass Fracti on] in Serum or PlasmaOrdered By: Amanda Rosario on 01-09-2023 Iron saturation [Mass fraction] 20.2 % 20-50 [facility] LDH Lactate Dehydrogenaseon 01-09-2023 LDH Lactate Dehydrogenase 145 U/L Normal 45-190 [facility] Comment on above: Result Comment: PERF ORMED BY: [facility] [address] [place] [address] PATHOLOGIST [employer] ATTENDANT RUSS DAVIS M.D. Performed By: #### L DH #### [facility] [address] Lactate dehydrogenase measur ement (enzymatic activity/volume)Ordered By: Ale Malone on 01-09-2023 LDH (Unsp spec) [Catalytic activity/Vol] 145 U/L 45-190 [facility] Leukocytes [#/volume] correc yanira for nucleated erythrocytes in Blood by Automated counOrdered By: Amanda Rosario on 01-09-2023 WBC corrected for nucl RBC Auto (Bld) [#/Vol] 4.8 10*3/uL 3.8-11.6 [facility] Lymphocytes Auto (Bld) [#/Vo l]Ordered By: Amanda Rosario on 01-09-2023 Lymphocytes (Bld) [#/Vol] 1.0 10*3/uL 1.00-4.8 [facility] Lymphocytes/100 WBC Auto (Bl d)Ordered By: Amanda Rosario on 01-09-2023 Lymphocytes/100 WBC (Bld) 20.2 % . [facility] MCH Auto (RBC) [Entitic mass ]Ordered By: Amanda Rosario on 01-09-2023 MCH (RBC) [Entitic mass] 30.0 pg 24.7-34.3 [facility] MCHC Auto (RBC) [Mass/Vol]Or dered By: Amanda Rosario on 01-09-2023 MCHC (RBC) [Mass/Vol] 33.2 g/dL 32.0-35.0 [facility] MCV Auto (RBC) [Entitic vol] Ordered By: Amanda Rosario on 01-09-2023 MCV (RBC) [Entitic vol] 90.3 fL 80-100 [facility] Monocytes Auto (Bld) [#/Vol] Ordered By: Amanda Rosario on 01-09-2023 Monocytes (Bld) [#/Vol] 0.5 10*3/uL 0.0-0.8 [facility] Monocytes/100 WBC Auto (Bld) Ordered By: Amanda Rosario on 01-09-2023 Monocytes/100 WBC (Bld) 10.5 % . [facility] Neutrophils Auto (Bld) [#/Vo l]Ordered By: Amanda Rosario on 01-09-2023 Neutrophils (Bld) [#/Vol] 3.2 10*3/uL 1.8-7.7 [facility] Neutrophils/100 WBC Auto (Bl d)Ordered By: Amanda Rosario on 01-09-2023 Neutrophils/100 WBC (Bld) 67.3 % . [facility] No Panel InformationOrdered By: Amanda Rosario on 01-09-2023 Estimated GFR () > 60 mL/Min [facility] Comment on above: GFR estimated refere nce range: According to KDOQI guidelines, <60 ml/min/1.73m2 is sufficient to diagnose a patient with chronic kidney disease. Pharmacy Creatinine Clearance (Chem 120.49 [facility] Nucleated erythrocytes [Pres ence] in Blood by Automated countOrdered By: Amanda Rosario on 01-09-2023 Nucleated RBC Auto Ql (Bld) 0.1 /100{WBC} 0-0.5 [facility] Platelet mean volume Auto (B ld) [Entitic vol]Ordered By: Amanda Rosario on 01-09-2023 Platelet mean volume (Bld) [Entitic vol] 7.9 fL 6.3-10.7 [facility] Platelets Auto (Bld) [#/Vol] Ordered By: Amanda Rosario on 01-09-2023 Platelets (Bld) [#/Vol] 290 10*3/uL 150-450 [facility] Potassium [Moles/volume] in Serum or PlasmaOrdered By: Amanda Rosario on 01-09-2023 Potassium [Moles/Vol] 4.4 mmol/L 3.5-5.1 [facility] Protein [Mass/volume] in Ser um or PlasmaOrdered By: Amanda Rosario on 01-09-2023 Protein [Mass/Vol] 6.6 g/dL 6.1-7.9 [facility] RBC Auto (Bld) [#/Vol]Ordere d By: Amanda Rosario on 01-09-2023 RBC (Bld) [#/Vol] 4.37 10*6/uL 3.60-5.00 [facility] Serum or plasma alanine green otransferase measurement without P-5'-P (enzymatic activiOrdered By: Amanda Rosario on 01-09-2023 ALT No additional P-5'-P [Catalytic activity/Vol] 20 U/L 10-60 [facility] Serum or plasma albumin/glob ulin mass ratioOrdered By: Amanda Rosario on 01-09-2023 Albumin/Globulin [Mass ratio] 1.9 {ratio} [facility] Serum or plasma anion gap de terminationOrdered By: Amanda Rosario on 01-09-2023 Anion gap [Moles/Vol] 10.2 mmol/L 6.0-15.0 [facility] Sodium [Moles/volume] in Ser um or PlasmaOrdered By: Amanda Rosario on 01-09-2023 Sodium [Moles/Vol] 137 mmol/L 136-146 [facility] US extremity nonvascularon 0 01-09-2023 US extremity nonvascular [facility] Main [place] [address] [place] [address] Ultrasound Report Signed Patient: Ailyn Resendiz MR#: [id number] : 1995 Acct:[id number] Age/Sex: 27 / F ADM Date: 01/09/23 Loc: Room: Type: [facility] Attending Dr: Amanda Rosario MD Ordering Provider: [...] study. Impression dictated by: Paresh Gilmore Jr., D.ODavid01/09/2023 12:04 PM Dictation Location: [place] [address] Tech: Uma Ram Transcribed By: LEOPOLDO 01/09/23 1204 Dictated By: Paresh Gilmore Jr, DO 01/09/23 1201 Signed By: 01/09/23 1204 Normal [facility] Urea nitrogen [Mass/volume] in Serum or PlasmaOrdered By: Amanda Rosario on 01-09-2023 Urea nitrogen [Mass/Vol] 13 mg/dL 9- [facility] WBC Auto (Bld) [#/Vol]Ordere d By: Amanda Abraham on 01-09-2023 WBC (Bld) [#/Vol] 4.8 10*3/uL 3.8-11.6 [facility] CBC AUTO DIFFon 12-31-2022 BASO # 0.1 103/ul Normal 0.0-0.1 [facility] Comment on above: Performed By: #### C BC #### [facility] [address] [place] [address] [address] Beth Pinead Basophils/100 WBC (Bld) 1.2 % Normal 0.2-2.0 [facility] Comment on above: Performed By: #### C BC #### [facility] [address] [place] [address] [address] Beth Pineda EO # 0.1 103/ul Normal 0.0-0.7 [facility] Comment on above: Performed By: #### C BC #### [facility] [address] [place] [address] [address] Beth Pineda Eosinophils/100 WBC (Bld) 2.1 % Normal 0.9-7.0 [facility] Comment on above: Performed By: #### C BC #### [facility] [address] [place] [address] [address] Beth Pineda Erythrocyte distribution width (RBC) [Ratio] 12.9 % Normal 11.0-15.0 [facility] Comment on above: Performed By: #### C BC #### [facility] [address] [place] [address] [address] Beth Pineda Hematocrit (Bld) [Volume fraction] 41.2 % Normal 36.0-48.0 [facility] Comment on above: Performed By: #### C BC #### [facility] [address] [place] [address] [address] Beth Pineda Hemoglobin (Bld) [Mass/Vol] 13.5 g/dL Normal 12.0-16.0 [facility] Comment on above: Performed By: #### C BC #### [facility] [address] [place] [address] Dr. Beth Pineda IG # 0.01 10e3/ul Normal 0.00-0.03 [facility] Comment on above: Performed By: #### C BC #### [facility] [address] [place] [address] Dr. Beth Pineda IG % 0.2 % Normal 0.0-0.5 [facility] Comment on above: Performed By: #### C BC #### [facility] [address] [place] [address] Dr. Beth Pineda LYMPH # 1.6 103/ul Normal 1.2-3.8 [facility] Comment on above: Performed By: #### C BC #### [facility] [address] [place] [address] Dr. Beth Pineda Lymphocytes/100 WBC (Bld) 29.9 % Normal 20.5-60.0 [facility] Comment on above: Performed By: #### C BC #### [facility] [address] [place] [address] Dr. Beth Pineda MANUAL DIFF REQ NO Normal [facility] Comment on above: Performed By: #### C BC #### [facility] [address] [place] [address] Dr. Beth Pineda MCH (RBC) [Entitic mass] 30.3 pg Normal 26.7-34.0 [facility] Comment on above: Performed By: #### C BC #### [facility] [address] [place] [address] Dr. Beth Pineda MCHC (RBC) [Mass/Vol] 32.8 g/dL Normal 29.9-35.2 [facility] Comment on above: Performed By: #### C BC #### [facility] [address] [place] [address] Dr. Beth Pineda MCV (RBC) [Entitic vol] 92.6 fL Normal 81.0-99.0 [facility] Comment on above: Performed By: #### C BC #### [facility] [address] [place] [address] Dr. Beth Pineda MONO # 0.4 103/ul Normal 0.3-0.8 [facility] Comment on above: Performed By: #### C BC #### [facility] [address] [place] [address] Dr. Beth Pineda Monocytes/100 WBC (Bld) 7.9 % Normal 1.7-12.0 [facility] Comment on above: Performed By: #### C BC #### [facility] [address] [place] [address] Dr. Beth Pineda NEUT # 3.0 103/ul Normal 1.4-6.5 [facility] Comment on above: Performed By: #### C BC #### [facility] [address] [place] [address] Dr. Beth Pineda Neutrophils/100 WBC (Bld) 58.7 % Normal 43.0-75.0 [facility] Comment on above: Performed By: #### C BC #### [facility] [address] [place] [address] Dr. Beth Pineda Platelet mean volume (Bld) [Entitic vol] 9.3 fL Critically low 9.5-13.5 [facility] Comment on above: Performed By: #### C BC #### [facility] [address] [place] [address] Dr. Beth Pineda PLT 304 103/ul Normal 150-450 [facility] Comment on above: Performed By: #### C BC #### [facility] [address] [place] [address] Dr. Beth Pineda RBC 4.45 106/ul Normal 4.20-5.40 [facility] Comment on above: Performed By: #### C BC #### [facility] [address] [place] [address] Dr. Beth Pineda WBC 5.2 103/ul Normal 4.0-11.0 [facility] Comment on above: Performed By: #### C BC #### [facility] [address] [place] [address] Dr. Beth Pineda GLYCOHEMOGLOBIN A1Con 2022 ADA RECOMMENDATION SEE BELOW Normal [facility] Comment on above: Result Comment: ADA RECOMMENDED LIMIT 4.0 - 6.0 ADA THERAPEUTIC TARGET < 7.0 ACTION SUGGESTED > 7.0 Performed By: #### T SH #### [facility] [address] [place] [address] [address] Beth Pineda Glucose [Mass/Vol] 91 mg/dL Normal [facility] Comment on above: Performed By: #### T SH #### [facility] [address] [place] [address] [address] Beth Pineda HbA1c (Bld) [Mass fraction] 4.8 % Normal 4.5-6.2 [facility] Comment on above: Performed By: #### T SH #### [facility] [address] [place] [address] Dr. Beth Pineda LIPID PROFILEon 12-31-2022 CHOL-HDL RATIO NORM SEE BELOW Normal [facility] Comment on above: Result Comment: 3.3 - 4.4 LOW RISK 4.4 - 7.1 AVERAGE RISK 7.1 - 11.0 MODERATE RISK >11.0 HIGH RISK Performed By: #### A 1C #### [facility] [address] [place] [address] Dr. Beth Pineda Cholesterol [Mass/Vol] 180 mg/dL Normal <=200 [facility] Comment on above: Performed By: #### A 1C #### [facility] [address] [place] [address] Dr. Beth Pineda Cholesterol in HDL [Mass/Vol] 106 mg/dL Critically high 40-60 [facility] Comment on above: Performed By: #### A 1C #### [facility] [address] [place] [address] [address] Beth Pineda Cholesterol in LDL [Mass/Vol] 66.6 mg/dL Normal [facility] Comment on above: Performed By: #### A 1C #### [facility] [address] [place] [address] [address] Beth Pineda Cholesterol.total/Elida sterol in HDL [Mass ratio] 1.7 {ratio} Normal [facility] Comment on above: Performed By: #### A 1C #### [facility] [address] [place] [address] Dr. Beth Pineda HDL NORMAL > or = 60 mg/dl - LO W CARDIOVASCULAR RISK <40 mg/dl - HIGH CARDIOVASCULAR RISK Normal [facility] Comment on above: Performed By: #### A 1C #### [facility] [address] [place] [address] Dr. Beth Pineda LDL CALC NORMAL SEE BELOW Normal [facility] Comment on above: Result Comment: <100 mg/dl OPTIMAL 100 - 129 mg/dl NEAR OR ABOVE OPTIMAL 130 - 159 mg/dl BORDERLINE HIGH 160 - 189 mg/dl HIGH >190 mg/dl VERY HIGH Performed By: #### A 1C #### [facility] [address] [place] [address] Dr. Beth Pineda Triglyceride [Mass/Vol] 37 mg/dL Normal <=150 [facility] Comment on above: Performed By: #### A 1C #### [facility] [address] [place] [address] Dr. Beth Pineda VLDL CALC 7.4 mg/dL Normal [facility] Comment on above: Performed By: #### A 1C #### [facility] [address] [place] [address] Dr. Beth Pineda PROF 14(COMP METB)on 023 Albumin [Mass/Vol] 4.3 g/dL Normal 3.4-5.0 [facility] Comment on above: Performed By: #### T SH #### [facility] [address] [place] [address] Dr. Beth Pineda Albumin/Globulin [Mass ratio] 1.3 {ratio} Normal [facility] Comment on above: Performed By: #### T SH #### [facility] [address] [place] [address] Dr. Beth Pineda ALP [Catalytic activity/Vol] 68 U/L Normal 46-116 [facility] Comment on above: Performed By: #### T SH #### [facility] [address] [address] [address] Beth Pineda ALT [Catalytic activity/Vol] 21 U/L Normal 14-59 [facility] Comment on above: Performed By: #### T SH #### [facility] [address] [place] [address] Dr. Beth Pineda Anion gap [Moles/Vol] 12.1 mmol/L Normal [facility] Comment on above: Performed By: #### T SH #### [facility] [address] [place] [address] Dr. Beth Pineda AST [Catalytic activity/Vol] 10 U/L Critically low 15-37 [facility] Comment on above: Performed By: #### T SH #### [facility] [address] [place] [address] Dr. Beth Pineda Bilirubin [Mass/Vol] 0.6 mg/dL Normal 0.2-1.0 [facility] Comment on above: Performed By: #### T SH #### [facility] [address] [place] [address] Dr. Beth Pineda Calcium [Mass/Vol] 9.2 mg/dL Normal 8.5-10.1 [facility] Comment on above: Performed By: #### T SH #### [facility] [address] [place] [address] Dr. Beth Pineda Chloride [Moles/Vol] 103 mmol/L Normal 98-107 [facility] Comment on above: Performed By: #### T SH #### [facility] [address] [place] [address] Dr. Beth Pineda CO2 [Moles/Vol] 28.0 mmol/L Normal 21.0-32.0 [facility] Comment on above: Performed By: #### T SH #### [facility] [address] [place] [address] Dr. Beth Pineda Creatinine [Mass/Vol] 0.73 mg/dL Normal 0.55-1.02 [facility] Comment on above: Performed By: #### T SH #### [facility] [address] [place] [address] Dr. Beht Pineda EGFR-AF NORTHERN IRISH >60 Normal >=60 [facility] Comment on above: Performed By: #### T SH #### [facility] [address] [place] [address] Dr. Beth Pinead EGFR-NON AF NORTHERN IRISH >60 Normal >=60 [facility] Comment on above: Performed By: #### T SH #### [facility] [address] [address] [address] Beth Pineda Globulin (S) [Mass/Vol] 3.2 g/dL Normal [facility] Comment on above: Performed By: #### T SH #### [facility] [address] [address] [address] Beth Pineda Glucose [Mass/Vol] 89 mg/dL Normal 74-106 [facility] Comment on above: Performed By: #### T SH #### [facility] [address] [place] [address] Dr. Beth Pineda Potassium [Moles/Vol] 4.1 mmol/L Normal 3.5-5.1 [facility] Comment on above: Performed By: #### T SH #### [facility] [address] [address] [address] Beth Pineda Protein [Mass/Vol] 7.5 g/dL Normal 6.4-8.2 [facility] Comment on above: Performed By: #### T SH #### [facility] [address] [address] [address] Beth Pineda Sodium [Moles/Vol] 139 mmol/L Normal 136-145 [facility] Comment on above: Performed By: #### T SH #### [facility] [address] [address] [address] Beth Pineda Urea nitrogen [Mass/Vol] 10.0 mg/dL Normal 7.0-18.0 [facility] Comment on above: Performed By: #### T SH #### [facility] [address] [place] [address] Dr. Beth Pineda Urea nitrogen/Creatinine [Mass ratio] 13.7 mg/mg Normal [facility] Comment on above: Performed By: #### T SH #### [facility] [address] [place], [place] [address] Dr. Beth Pineda TSHon 12-31-2022 TSH 3.121 uIU/mL Normal 0.358-3.740 [facility] Comment on above: Performed By: #### A 1C #### [facility] [id number] Beth Pineda Albumin [Mass/volume] in Ser um or PlasmaOrdered By: Amanda Rosario on 07-08-2022 Albumin [Mass/Vol] 3.9 g/dL 3.2-5.5 [facility] Basophils Auto (Bld) [#/Vol] Ordered By: Amanda Rosario on 07-08-2022 Basophils (Bld) [#/Vol] 0.1 10*3/uL 0.0-0.2 [facility] Basophils/100 WBC Auto (Bld) Ordered By: Amanda Rosario on 07-08-2022 Basophils/100 WBC (Bld) 1.3 % . [facility] Blood hemoglobin measurement (mass/volume)Ordered By: Amanda Rosario on 07-08-2022 Hemoglobin (Bld) [Mass/Vol] 14.2 g/dL 11.8-15.4 [facility] Blood leukocytes automated c ount (number/volume)Ordered By: Amanda Rosario on 07-08-2022 WBC (Bld) [#/Vol] 5.6 10*3/uL 4.5-11.0 [facility] CT biopsyOrdered By: Amanda Nino se on 07-08-2022 Transferrin [Mass/Vol] 346 mg/dL 180-380 [facility] Creatinine and Glomerular fi ltration rate.predicted panel (S/P/Bld)Ordered By: Amanda Rosario on 07-08-2022 Creatinine [Mass/Vol] 0.78 mg/dL 0.44-1.03 [facility] Eosinophils Auto (Bld) [#/Vo l]Ordered By: Amanda Rosario on 07-08-2022 Eosinophils (Bld) [#/Vol] 0.1 10*3/uL 0.0-0.45 [facility] Eosinophils/100 WBC Auto (Bl d)Ordered By: Amanda Rosario on 07-08-2022 Eosinophils/100 WBC (Bld) 1.2 % . [facility] Erythrocyte distribution wid th Auto (RBC) [Ratio]Ordered By: Amanda Rosario on 07-08-2022 Erythrocyte distribution width (RBC) [Ratio] 12.4 % 11.9-15.3 [facility] Estimated glomerular filtrat ion rate (GFR) non- AmericanOrdered By: Amanda Rosario on 07-08-2022 GFR/1.73 sq M.predicted among non-blacks MDRD (S/P/Bld) [Vol rate/Area] > 60 mL/Min [facility] Ferritin [Mass/volume] in Se rum or PlasmaOrdered By: Amanda Rosario on 07-08-2022 Ferritin [Mass/Vol] 9.6 ng/mL 11-306.8 [facility] Globulin Calc (S) [Mass/Vol] Ordered By: Amanda Rosario on 07-08-2022 Globulin (S) [Mass/Vol] 2.9 g/dL [facility] Hematocrit Auto (Bld) [Volum e fraction]Ordered By: Amanda Rosario on 07-08-2022 Hematocrit (Bld) [Volume fraction] 42.7 % 34.0-46.4 [facility] Iron [Mass/volume] in Serum or PlasmaOrdered By: Amanda Rosario on 07-08-2022 Iron [Mass/Vol] 173 ug/dL 40-150 [facility] Iron binding capacity [Mass/ volume] in Serum or PlasmaOrdered By: Amanda Rosario on 07-08-2022 Iron binding capacity [Mass/Vol] 484 ug/dL 255-450 [facility] Iron saturation [Mass Fracti on] in Serum or PlasmaOrdered By: Amanda Rosario on 07-08-2022 Iron saturation [Mass fraction] 35.0 % 20-50 [facility] Laboratory - Hematology and Cell countsOrdered By: Amanda Rosario on 07-08-2022 Nucleated RBC/100 WBC (Bld) [Ratio] 0.2 % 0-0.5 [facility] Lactate dehydrogenase measur ement (enzymatic activity/volume)Ordered By: Amanda Rosario on 07-08-2022 LDH (Unsp spec) [Catalytic activity/Vol] 154 U/L 45-190 [facility] Lymphocytes Auto (Bld) [#/Vo l]Ordered By: Amanda Rosario on 07-08-2022 Lymphocytes (Bld) [#/Vol] 1.5 10*3/uL 1.00-4.8 [facility] Lymphocytes/100 WBC Auto (Bl d)Ordered By: Amanda Rosario on 07-08-2022 Lymphocytes/100 WBC (Bld) 26.6 % . [facility] MCH Auto (RBC) [Entitic mass ]Ordered By: Amanda Rosario on 07-08-2022 MCH (RBC) [Entitic mass] 29.7 pg 24.7-34.3 [facility] MCHC Auto (RBC) [Mass/Vol]Or dered By: Amanda Rosario on 07-08-2022 MCHC (RBC) [Mass/Vol] 33.3 g/dL 32.0-35.0 [facility] MCV Auto (RBC) [Entitic vol] Ordered By: Amanda Rosario on 07-08-2022 MCV (RBC) [Entitic vol] 89.4 fL 80-100 [facility] Monocytes Auto (Bld) [#/Vol] Ordered By: Amanda Rosario on 07-08-2022 Monocytes (Bld) [#/Vol] 0.5 10*3/uL 0.0-0.8 [facility] Monocytes/100 WBC Auto (Bld) Ordered By: Amanda Rosario on 07-08-2022 Monocytes/100 WBC (Bld) 9.7 % . [facility] Neutrophils Auto (Bld) [#/Vo l]Ordered By: Amanda Rosario on 07-08-2022 Neutrophils (Bld) [#/Vol] 3.4 10*3/uL 1.8-7.7 [facility] Neutrophils/100 WBC Auto (Bl d)Ordered By: Amanda Rosario on 07-08-2022 Neutrophils/100 WBC (Bld) 61.2 % . [facility] No Panel InformationOrdered By: Amanda Rosario on 07-08-2022 Adrenocorticotropic Hormone 8.2 pg/mL 7.2-63.3 [facility] Comment on above: ACTH reference inter cruz for samples collected between 7 and 10 AM. Performed at: - [facility] [address] [place], [place] [id number] Hand Folder: Sai Smalls PhD, Phone: [phone] ACTH reference inter cruz for samples collected between 7 and10 AM.Performed at: - [facility] [place], [place] [id number] Director: Sai Smalls PhD, Phone: [phone] Estimated GFR () > 60 mL/Min [facility] Comment on above: GFR estimated refere nce range: According to KDOQI guidelines, <60 ml/min/1.73m2 is sufficient to diagnose a patient with chronic kidney disease. Pharmacy Creatinine Clearance (Chem 111.22 [facility] Total Triiodothyronine 1.68 ng/mL 0.87-1.78 [facility] Platelet mean volume Auto (B ld) [Entitic vol]Ordered By: Amanda Rosario on 07-08-2022 Platelet mean volume (Bld) [Entitic vol] 8.0 fL 6.3-10.7 [facility] Platelets Auto (Bld) [#/Vol] Ordered By: Amanda Rosario on 07-08-2022 Platelets (Bld) [#/Vol] 393 10*3/uL 150-450 [facility] Protein [Mass/volume] in Ser um or PlasmaOrdered By: Amanda Rosario on 07-08-2022 Protein [Mass/Vol] 6.8 g/dL 6.1-7.9 [facility] RBC Auto (Bld) [#/Vol]Ordere d By: Amanda Rosario on 07-08-2022 RBC (Bld) [#/Vol] 4.78 10*6/uL 3.60-5.00 [facility] Random cortisol measurementO rdered By: Amanda Rosario on 07-08-2022 Cortisol [Mass/Vol] 12.6 ug/dL [facility] Comment on above: Reference range: AM 6 - 24 ug/dl PM <10 ug/dl Reference range: AM 6 - 24 ug/dl PM <10 ug/dl Serum or plasma alanine green otransferase measurement without P-5'-P (enzymatic activiOrdered By: Amanda Rosario on 07-08-2022 ALT No additional P-5'-P [Catalytic activity/Vol] 17 U/L 10-60 [facility] Serum or plasma albumin/glob ulin mass ratioOrdered By: Amanda Rosario on 07-08-2022 Albumin/Globulin [Mass ratio] 1.3 {ratio} [facility] Serum or plasma alkaline mando sphatase measurement (enzymatic activity/volume)Ordered By: Amanda Rosario on 07-08-2022 ALP [Catalytic activity/Vol] 52 U/L 32-92 [facility] Serum or plasma aspartate am inotransferase measurement (enzymatic activity/volume)Ordered By: Amanda Rosario on 07-08-2022 AST [Catalytic activity/Vol] 22 U/L 10-42 [facility] Serum or plasma calcium saritha urement (mass/volume)Ordered By: Amanda Rosario on 07-08-2022 Calcium [Mass/Vol] 9.3 mg/dL 8.2-10.2 [facility] Serum or plasma chloride obi surement (moles/volume)Ordered By: Amanda Rosario on 07-08-2022 Chloride [Moles/Vol] 104 mmol/L 95-114 [facility] Serum or plasma glucose saritha urement (mass/volume)Ordered By: Amanda Rosario on 07-08-2022 Glucose [Mass/Vol] 83 mg/dL 70-100 [facility] Comment on above: ADA recommended refe rence range Random Glucose Reference Range is dependent on time and content of last meal. Glucose of more than 200 mg/dL in a nonstressed, ambulatory subject supports the diagnosis of Diabetes Mellitus. Serum or plasma potassium me asurement (moles/volume)Ordered By: Amanda Rosario on 07-08-2022 Potassium [Moles/Vol] 4.3 mmol/L 3.5-5.1 [facility] Serum or plasma sodium measu rement (moles/volume)Ordered By: Amanda Rosario on 07-08-2022 Sodium [Moles/Vol] 134 mmol/L 136-146 [facility] Serum or plasma thyroxine (T 4) measurement (mass/volume)Ordered By: Amanda Rosario on 07-08-2022 T4 [Mass/Vol] 11.18 ug/dL 5.39-11.82 [facility] Serum or plasma total biliru bin measurement (mass/volume)Ordered By: Amanda Abraham on 07-08-2022 Bilirubin [Mass/Vol] 0.7 mg/dL 0.3-1.2 [facility] Serum or plasma total carbon dioxide measurement (moles/volume)Ordered By: Amanda Rosario on 07-08-2022 CO2 [Moles/Vol] 22.2 mmol/L 22.0-30.0 [facility] Serum or plasma urea nitroge n measurement (mass/volume)Ordered By: Amanda Rosario on 07-08-2022 Urea nitrogen [Mass/Vol] 9 mg/dL 9- [facility] TSH DL <= 0.005 mIU/L QnOrde red By: Amanda Rosario on 07-08-2022 TSH Qn 1.69 m[IU]/L 0.45-5.33 [facility] CHLAMYDIA/GONOCOCCUS PARMINDER (SW AB/URINE/PAPon 06-19-2022 Chlamydia trachomatis, PARMINDER Negative Normal Negative [facility] Comment on above: Performed By: #### T SH #### [facility] [address] [address] [address] Beth Pineda Neisseria gonorrhoeae, PARMINDER Negative Normal Negative [facility] Comment on above: Performed By: #### T SH #### [facility] [address] [address] [address] Beth Pineda VAGINITIS/VAGINOSIS DNA PROB Kaden 06-18-2022 Anh species Negative Normal Negative [facility] Comment on above: Performed By: #### T SH #### [facility] [address] [address] [address] Beth Pineda Gardnerella vaginalis Negative Normal Negative [facility] Comment on above: Performed By: #### T SH #### [facility] [address] [address] [address] Beth Pineda Trichomonas vaginalis Negative Normal Negative [facility] Comment on above: Performed By: #### T SH #### [facility] [address] [place], [place] [address] Dr. Beth Pineda Creatinine [Mass/volume] in UrineOrdered By: Amanda Rosario on 05-23-2022 Creatinine (U) [Mass/Vol] 26.2 mg/dL [facility] Comment on above: No reference range e stablished Laboratory - Chemistry and C hemistry - challengeOrdered By: Amanda Rosario on 05-23-2022 Lipase [Catalytic activity/Vol] 32.0 U/L 22-51 [facility] Protein [Mass/volume] in Uri neOrdered By: Amanda Rosario on 05-23-2022 Protein (U) [Mass/Vol] mg/dL 0-9 [facility] Thyroxine (T4) free [Mass/vo lume] in Serum or PlasmaOrdered By: Amanda Rosario on 05-23-2022 Free T4 [Mass/Vol] 0.88 ng/dL 0.61-1.12 [facility] Bilirubin Test strip Ql (U)O rdered By: Amanda Rosario on 10-30-2021 Bilirubin Ql (U) Negative Negative [facility] Color Auto (U)Ordered By: Ira Rosario on 10-30-2021 Color (U) Yellow Yellow [facility] Ketones Auto test strip (U) [Mass/Vol]Ordered By: Amanda Rosario on 10-30-2021 Ketones (U) [Mass/Vol] Negative Negative [facility] Nitrite Test strip Ql (U)Ord ered By: Amanda Rosario on 10-30-2021 Nitrite Ql (U) Negative Negative [facility] Protein Auto test strip (U) [Mass/Vol]Ordered By: Amanda Rosario on 10-30-2021 Protein (U) [Mass/Vol] Negative Negative [facility] Specific gravity Auto test s trip (U) [Rel density]Ordered By: Amanda Rosario on 10-30-2021 Specific gravity (U) [Rel density] 1.008 1.001-1.030 [facility] Urine clarity by refractomet ry automatedOrdered By: Amanda Rosario on 10-30-2021 Clarity Refractometry automated (U) Clear Clear [facility] Urine glucose measurement by automated test strip (mass/volume)Ordered By: Amanda Rosario on 10-30-2021 Glucose Auto test strip (U) [Mass/Vol] Normal mg/dL Normal [facility] Urine hemoglobin detection b y automated test stripOrdered By: Amanda Rosario on 10-30-2021 Hemoglobin Auto test strip Ql (U) Negative Negative [facility] Urine leukocyte esterase det ection by automated test stripOrdered By: Amanda Rosario on 10-30-2021 Leukocyte esterase Auto test strip Ql (U) Negative Negative [facility] Urobilinogen Auto test strip (U) [Mass/Vol]Ordered By: Amanda Rosario on 10-30-2021 Urobilinogen (U) [Mass/Vol] Normal mg/dL Normal [facility] pH Auto test strip (U)Ordere d By: Amanda Rosario on 10-30-2021 pH (U) 5.5 [pH] 5.0-9.0 [facility] Lab Reportson 07-31-2021 Lab Reports [id number] D:127 Normal [facility] RAD - MISCon 07-31-2021 RAD - MISC [id number] D:127 Normal [facility] HCG ( test) IA.rapi d Ql (U)Ordered By: Amanda Rosario on 07-09-2021 HCG ( test) Ql (U) Negative [facility] Glucose Glucometer (BldC) [M ass/Vol]Ordered By: Amanda Rosario on 07-01-2021 Glucose [Mass/Vol] 82 mg/dL [facility] Comment on above: Random Glucose Refer ence Range is dependent on time and content of last meal. Glucose of more than 200 mg/dL in a nonstressed, ambulatory subject supports the diagnosis of Diabetes Mellitus. 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 Will follow up with the pathology report once this is resulted Dictation software was used in the creation of this note and not corrected for typographical or grammatical errors Chief Complaint Postop History of Present Igazvzc36-zafs-dyd woman who underwent wide excision right posterior calf melanoma with Compton flap reconstruction as well as right inguinal and iliac sentinel lymph node biopsy on 05/17/2021. Pathology report has not yet resulted. She is recovering well. 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 There is some bruising noted around the flap but no flap ischemia Signatures Electronically signed by : Sarah Nevarez MD; May 30 2021 3:18PM EST (Author) Normal [facility] Dermatopathology Name MOISES KANG [place] Pathologist: ANUJA OLIVO MD Date of Procedure: [...] BIOPSY: METASTATIC MALIGNANT MELANOMA WITHOUT EXTRACAPSULAR EXTENSION (1/1) (SEE COMMENT): Comment: A SOX-10 immunostain (control appropriate) highlights a small subcapsular collection of atypical melanocytes (0.03 mm deposit). These were compared to the original melanoma ([id number]) and are consistent with a metastatic focus of malignant melanoma. The HMB45 and Melan-A immunostains (controls appropriate) are negative. This case has been amended. At the request of the pathologist, 0.3mm was changed to 0.03mm. The diagnosis is unchanged. C. NODE, RIGHT ILIAC SENTINEL LYMPH NODE, BIOPSY: BENIGN LYMPH NODE (0) (SEE COMMENT): Comment: Immunostains for HMB45, Melan-A, and SOX-10 (controls appropriate) are negative for definitive malignancy. There are rare small intraparenchymal SOX-10 cells that were compared to the original melanoma ([id number]) and are smaller with less cytoplasm compared [...] determined by the Department of Pathology at [facility]. The FDA does not require this [...] appropriately. Electronically Signed Out By ANUJA OLIVO MD/BEBETO By the signature on this report, the individual or group listed as making the Final Interpretation/Diagnosi s certifies that they have reviewed this case. [...] landis-yellow irregularly shaped piece of skin measuring [id number]. The specimen is embedded in toto. B: Received in formalin is a landis-yellow irregularly shaped piece of skin measuring 40q2f8nv. The specimen is embedded in toto. C: Received in formalin is a landis-yellow irregularly shaped piece of skin measuring 49c11m7nf. The specimen is embedded in toto. D: Received in formalin is a landis ellipse of skin measuring [id number], oriented by the surgeon with short stitch [...] Block 1 is at 12 o'clock. ink/05/21/2021 [facility] Dermatopathology Laboratory [place], [place] [address] [place] [address], [facility] [address] Normal [facility] Comment on above: Performed By: #### D #### Dermatopathology HCG,URINEon 05-17-2021 Beta HCG ( test) Ql (U) Negative Normal Negative [facility] Comment on above: Performed By: #### H CGU #### [facility] [id number] [facility] [place] [id number] LYMPH GLANDon 05-17-2021 LYMPH GLAND Patient Name: AILYN KANG STUDY: LYMPH GLAND; 05/17/2021 12:45 pm INDICATION: Malignant melanoma of right posterior leg. COMPARISON: None. ACCESSION NUMBER(S): [id number] ORDERING CLINICIAN: SARAH NEVAREZ TECHNIQUE: DIVISION OF NUCLEAR MEDICINE RADIONUCLIDE SENTINEL LYMPH NODE LYMPHOSCINTIGRAPHY A total of 0.870 millicuries of Tc-99m tilmanocept (Lymphoseek) was injected intradermally in a circumferential pattern [...] as stated. This study was interpreted at [place], [place]. Electronically signed by: TAMY LAWTON MD Normal [facility] NM Lymph Glandon 05-17-2021 NM Lymph node Views Normal MG-Blevins rgery-A dmin Main Work Phone: No Panel Informationon 05-17 YA-Mbnfclu-O [facility] Work Phone: Order Reconciliationon 05-17 Order [...] 4 days PRN pain, Dx: G89.18 Normal [facility] Patient Profile - Preop v2on 05-17-2021 Patient Profile - Preop v2 Profile: Initial Info: How to be AddressedSamantha Spoken Language PreferredEnglish Source of Informationpatient Are you currently using the Personal Electronic Health Record or [facility] Are you interested in learning more about [facility] for the management of your healthnot at this time Stated Reason for Admissionwide excision melanoma right posterior leg, keystone flap and sentinel lymph node biopsy Primary Contact Name and Numberleigh ann El [phone] Limitations on Visitors/Phone Callsnone Patient Belongingsremains with patient Patient Belongings Remaining with Patientclothing; cell phone/electronics Medications Brought to Hospitalno General Health: Weight in kg63.6 kilogram(s) Weight in dkb656.2 pound(s) Weight Methodstated Height in feet5 feet Height in inches8 inch(es) Height in cm172.7 centimeter(s) Height Methodstated BMI (kg/m2)21.324 square meter Patient or Family Member Reaction to Anesthesianever had anesthesia Blood Avoidance/Restrictionsn one Previous Transfusion Reactionno Health Mgmt: Symptoms/Conditions Managed at H[facility]one Are You no Are You Currently Breastfeedingno Barriers to Managing Healthnone Relationship/Environ: Living Arrangementshouse Lives Withsignificant other Resource/Environmental Concernsnone [facility] Anticipated at Transitionnone Substance: Current or [...] instruction; written material Cultural Considerationsnone Developmental Considerationsnone Jehovah'S Witness Considerationsnone Other learner availableno [place] RiskPatient location auto qualifies him/her for HIGH RISK. Are there any cultural, spiritual, lutheran practices/values/needs that are important for us to knowno Do you want a visit/item from [facility] Would you like your Infection Control Coordinator/Surgical Dental Assistant notifiedno Pain Scalenumerical 0-10 Pain Scale Educationteaching [...] Updated: 17-May-2021 09:34 by Arabella Luis (ERICK PRN) [facility] Preop Checkliston 05-17-2021 Preop Checklist Preop Checklist: Preop Checklist: Arrival [id number] Arrival Time08:55 Procedure Typewide excision melanoma right posterior leg, keystone flap and sentinel lymph node biopsy Temperature C37.1 degrees C Temperature F98.7 degrees F Heart Rate92 beats per minute Respiratory Rate16 breath per minute Blood Pressure Srtekjmc926 mm/Hg Blood Pressure Tvolsvejh32 mm/Hg NPO [id number] 22:00 Allergy Bandno known allergies Consent Signedyes [...] Language / CommunicationEnglish Electronic Signatures: Arabella Luis (ERICK PRN) (Signed 17-May-2021 09:36) Authored: Preop Checklist Last Updated: 17-May-2021 09:36 by Arabella Luis (ERICK PRN) [facility] Urine Teston 05-17 HCG ( test) Ql (U) Negative Negative HB-Jpoboor-P dmin Main Work Phone: Initial Visit (General Surge [...] errors Chief Complaint Melanoma History of Present Uokneey23-mvro-aia woman referred from [facility] for right [...] inguinal basins Signatures Electronically signed by : aSrah Nevarez MD; May 02 2021 4:04PM EST (Author) [facility] Vital Signs Date Time Vital Sign Value Performing Clinician Facility 05-22-2023 08:55-0400 Body temperature 97.8 [degF] MD Sarah Nevarez Work Phone: [facility] 05-22-2023 08:55-0400 Body weight 69.85 kg MD Sarah Nevarez Work Phone: [facility] 05-22-2023 08:55-0400 Diastolic blood pressure 68 mm[Hg] MD Sarah Nevarez Work Phone: [facility] 05-22-2023 08:55-0400 Heart rate 79 /min MD Sarah Nevarez Work Phone: [facility] 05-22-2023 08:55-0400 Respiratory rate 16 /min MD Sarah Nevarez Work Phone: [facility] 05-22-2023 08:55-0400 SaO2% (BldA) [Mass fraction] 98 % MD Sarah Nevarez Work Phone: [facility] 05-22-2023 08:55-0400 Systolic blood pressure 108 mm[Hg] MD Sarah Nevarez Work Phone: [facility] 01-21-2023 14:57-0500 Body temperature 97.8 [degF] MD Sarah Nevarez Work Phone: [facility] 01-21-2023 14:57-0500 Body weight 67.2 kg MD Sarah Nevarez Work Phone: [facility] 01-21-2023 14:57-0500 Diastolic blood pressure 79 mm[Hg] MD Sarah Nevarez Work Phone: [facility] 01-21-2023 14:57-0500 Heart rate 72 /min MD Sarah Nevarez Work Phone: [facility] 01-21-2023 14:57-0500 Respiratory rate 16 /min MD Sarah Nevarez Work Phone: [facility] 01-21-2023 14:57-0500 SaO2% (BldA) [Mass fraction] 98 % MD Sarah Nevarez Work Phone: [facility] 01-21-2023 14:57-0500 Systolic blood pressure 119 mm[Hg] MD Sarah Nevarez Work Phone: [facility] 07-08-2022 13:02-0400 Body height 172.72 cm MD Amanda Rosario Work Phone: [facility] 07-08-2022 13:02-0400 Body temperature 98 [degF] MD Amanda Rosario Work Phone: [facility] 07-08-2022 13:02-0400 Body weight 67.81 kg MD Amanda Roasrio Work Phone: [facility] 07-08-2022 13:02-0400 Diastolic blood pressure 71 mm[Hg] MD Amanda Rosario Work Phone: [facility] 07-08-2022 13:02-0400 Heart rate 95 /min MD Amanda Rosario Work Phone: [facility] 07-08-2022 13:02-0400 Respiratory rate 20 /min MD Amanda Rosario Work Phone: [facility] 07-08-2022 13:02-0400 SaO2% (BldA) [Mass fraction] 97 % MD Amanda Rosario Work Phone: [facility] 07-08-2022 13:02-0400 Systolic blood pressure 115 mm[Hg] MD Amanda Rosario Work Phone: [facility] 05-30-2021 14:47-0400 Body height 173 cm Price Girard Work Phone: VA-Jcgmbqe-Rlzyt Main Work Phone: 05-30-2021 14:47-0400 Body mass index (BMI) [Ratio] 21.58 kg/m2 Price Girard Work Phone: GM-Jdwpzfk-Odhga Main Work Phone: 05-30-2021 14:47-0400 Body surface area Derived from formula 1.77 m2 Price Girard Work Phone: HQ-Bhznhfn-Foeys Main Work Phone: 05-30-2021 14:47-0400 Body temperature 98.6 [degF] Price Girard Work Phone: HA-Mzxkqrs-Wfcrk Main Work Phone: 05-30-2021 14:47-0400 Body weight 64.6 kg Price Girard Work Phone: TR-Doxxroa-Imfow Main Work Phone: 05-30-2021 14:47-0400 Diastolic blood pressure 77 mm[Hg] Price Girard Work Phone: UG-Vylcnao-Xywsr Main Work Phone: 05-30-2021 14:47-0400 Heart rate 103 /min Price Girard Work Phone: BH-Bebgzdq-Kocww Main Work Phone: 05-30-2021 14:47-0400 Respiratory rate 16 /min Price Girard Work Phone: WX-Armhgdw-Cholc Main Work Phone: 05-30-2021 14:47-0400 SaO2% (BldA) [Mass fraction] 99 % Price Girard Work Phone: TB-Uatdgde-Yxnjm Main Work Phone: 05-30-2021 14:47-0400 Systolic blood pressure 131 mm[Hg] Price Girard Work Phone: KO-Sahtvda-Arqrc Main Work Phone: 05-30-2021 14:47-0400 0 1 Price Girard Work Phone: RD-Zdewyoq-Kejoe Main Work Phone: Comment on above: [employer] 1995 00:00-0400 >na< [facility] 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 Encounters Encounter Date Encounter Type Care Provider Facility Start: 11-18-2023 End: 11-18-2023 ambulatory CRUZ JOHNSON Not Available Start: 10-06-2023 End: 10-06-2023 ambulatory CRUZ JOHNSON Not Available Start: 08-19-2023 ambulatory Mike Wagner Facility:[facility] Start: 05-22-2023 End: 05-22-2023 ambulatory MD Sarah Nevarez Work Phone: [facility] Work Phone: Start: 05-22-2023 End: 05-22-2023 Registered Recurring MD Sarah Nevraez Work Phone: [facility] Work Phone: Start: 04-07-2023 End: 04-08-[address] CRUZ JOHNSON . Facility: Start: 03-13-2023 End: 03-14-[address] CRUZ JOHNSON . Facility:[facility] Start: 02-27-2023 End: 02-28-[address] CRUZ JOHNSON . Facility:[facility] Start: 02-11-2023 End: 02-12-[address] CRUZ JOHNSON . Facility:[facility] Start: 02-09-2023 End: 02-10-[address] CRUZ JOHNSON . Facility:[facility] Start: 01-30-2023 End: 01-31-[address] CRUZ JOHNSON . Facility:[facility] Start: 01-21-2023 End: 01-21-2023 ambulatory MD Sarah Nevarez Work Phone: [facility] Work Phone: Start: 01-21-2023 End: 01-21-2023 Registered Recurring MD Sarah Nevarez [facility] Work Phone: Start: 01-13-2023 End: 01-13-[address] CRUZ JOHNSON . Facility:[facility] Start: 01-01-2023 Encounter for genera l adult medical examination without abnormal findings DR MIKE WAGNER [facility] Start: 12-31-2022 End: 01-01-[address] MIKE WAGNER Facility:[facility] Start: 12-31-2022 End: 01-01-2023 Encounter for general adult medical examination without abnormal findings DR MIKE WAGNER Facility:[facility] Start: 07-08-2022 End: 07-08-2022 Registered Recurring MD Amanda Rosario [facility] Start: 06-16-2022 End: 06-16-[address] CRUZ JOHNSON . Facility:[facility] Start: 04-09-[address] AMANDA ROSARIO Facility :[facility] Start: 06-22-2021 Chart Update Price Girard Work Phone: [facility] Work Phone: Start: 06-18-2021 [facility] of D ermatology Start: 05-30-2021 Postop follow up vis it related to original px Price Girard Work Phone: [facility]Rbjuefj-Aggde Main Work Phone: Procedures Date Procedure Procedure [...] Date Care Activity Detail Author Start: 05-23-2022 [facility] Start: 04-25-2022 [facility] Start: 03-28-2022 [facility] Start: 02-28-2022 [facility] Start: 01-31-2022 [facility] Start: 01-28-2022 [facility] Start: 12-31-2021 [facility] Start: 12-24-2021 [facility] Start: 11-29-2021 [facility] Start: 11-01-2021 [facility] Start: 10-28-2021 [facility] Start: 10-02-2021 End: 10-03-2021 [facility] Start: 09-06-2021 [facility] Start: 09-03-2021 [facility] Start: 08-08-2021 [facility] Start: 07-11-2021 [facility] Adrenocorticotropic hormone measurement [facility] Comprehensive metabo lic 1999 panel - Serum or Plasma [facility] Work Phone: Comprehensive metabo lic 1999 panel - Serum or Plasma [facility] Comprehensive metabo lic 1999 panel - Serum or Plasma [facility] Comprehensive metabo lic 1999 panel - Serum or Plasma [facility] CT Abdomen and Pelvis W contrast IV [facility] Work Phone: CT Abdomen and Pelvis W contrast IV [facility] CT Abdomen and Pelvis W contrast IV [facility] CT Chest W contrast IV [facility] Work Phone: CT Chest W contrast IV [facility] CT Chest W contrast IV [facility] Ferritin [Mass/volum e] in Serum or Plasma [facility] Work Phone: Lactate dehydrogenas e [Enzymatic activity/volume] in Unspecified specimen [facility] Work Phone: Thyrotropin [Units/v olume] in Serum or Plasma [facility] Thyroxine (T4) free [Mass/volume] in Serum or Plasma [facility] Triiodothyronine (T3 ) Free [Mass/volume] in Serum or Plasma [facility] US Extremity [facility] Work Phone: [facility] Immunizations Immunization Date Immunization Notes Care Provider Fa cility 1995 pneumococcal conjuga te vaccine, 7 valent 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 Payers Date Payer Category Payer Self-pay [id number] 2021 Unknown [id number] 2021 Unknown [id number] 2019 Unknown [id number] 1997 Unknown [id number] 1997 Unknown [id number] [id number] 1997 Unknown [id number] [id number] 1997 Unknown [id number] [id number] 1997 Unknown [id number] [id number] 1997 Unknown [id number] [id number] 1997 Unknown [id number] 2.16.840.1.115789.3.579.2.593 1997 Unknown [id number] [id number] 1997 Unknown [id number] 2.16.840.1.144801.3.579.2.593 1997 Unknown [id number] [id number] 1997 Unknown [id number] [id number] 1997 Unknown [id number] 2.16.840. [id number] 1959 Unknown [id number] 1959 Unknown [id number] Unknown [facility] Unknown [id number] Social History Date Type Detail Facility Start: 06-18-2021 Dept. of D ermatology Start: 1995 Sex Assigned At Female F [facility] Start: 07-08-2022 End: 08-19-2023 Tobacco smoking status NHIS Never smoked tobacco (finding) [facility] Goals Date Patient Goal Desired Activity /State Clinical Notes 05-14-2021 to 05-23-2023 Note Date & Type Note Facility 05-23-2023 Progress note Note Date/Time May 22, 2023 9:03[facility] [place] [address] Hem/Onc Follow Up Note - OP Signed Patient: Ailyn Resendiz MR#: [id number] : 1995 Acct:[id number] Age/Sex: 27 / F Type: REG RCR Copies to: MD Mike wEing MD~ Subjective Date/Time of Service: Date of [...] of restaging CT CAP by phone with MANAGER OF [employer]MENTAL [employer] in October--no evidence of recurrence. Saw dermatology [...] dyspepsia. We will coordinate parenteral iron at [facility] per her request. Normal thyroid, cortisol,and CMP [...] trauma. She was seen by dermatology at [facility] in [place] and underwent a biopsy of the right [...] weakness. I reviewed her imaging with Dr. Pneny--should not require further workup of this in [...] 3. Venofer for iron deficiency anemia at [facility] 03/2022 ROS Details: All systems reviewed & [...] Mild Nivolumab infusion reaction in February 2022. PMF - History Attestation statement: The following information [...] DAILY PRN Anxiety 06/18/21 [History Confirmed 05/22/23] SFE-vayk-RT-omega 3-fat com #1 27 mg-1 mg-300 mg [...] Creatinine Clear 154.92, Sodium 136, Potassium 4.2, Qepjsssz624, Carbon Dioxide 26.1, Anion Gap 10.1, BUN [...] % (Auto) 79.8, Lymph % (Auto) 12.8, [place] % (Auto) 6.4, Eos % (Auto) 0.6, Baso % (Auto) 0.4, Nucleat RBC Rel Count 0.2, Neut # (Auto) 8.2 H, Lymph # (Auto) 1.3, [place] # (Auto) 0.7, Eos # (Auto) 0.1, [...] 4% with ferritin 7. Coordinated Venofer infusionsat [facility] (300mg IV x 3 doses) 03/2022 with followup CBC, serum iron profile, and ferritin in one month. Consider GI evaluation for iron deficiency. 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 She does not plan to have children anytime soon, but discussed with her ski patrol the best iron supplementation to be on [...] for coordination of care (as documented) and ljye-rs-geax counseling of patient and/or family. Dictated By: Amanda Rosario MD DD/ 0902 Signed By: <Electronically signed by MD Amanda Rosario> 05/23/23 [address]286 [facility] Work Phone: 1(190) 615-543303-01-2023 Progress note Author Amanda Rosario [facility] January 21, 2023 8:51pm Note Date/Time January 21, 2023 3:01 pm [facility] [place] [address] Hem/Onc Follow Up Note - OP Signed Patient: Ailyn Resendiz MR#: [id number] : 1995 Acct:[id number] Age/Sex: 27 / F Type: REG RCR Copies to: MD Mike Ewing MD~ Subjective Date/Time of Service: Date of Service: 01/21/2023 Time of Service: 15:00 Chief Complaint: Patient is here today for a 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 No new concerns HPI: 01/21/2023: Ailyn had review of restaging CT CAP by phone with [employer]MENT[employer] in October--no evidence of recurrence. Saw dermatology [...] dyspepsia. We will coordinate parenteral iron at [facility] per her request. Normal thyroid, cortisol,and CMP [...] trauma. She was seen by dermatology at [facility] in [place] and underwent a biopsy of the right [...] 3. Venofer for iron deficiency anemia at [facility] 03/2022 ROS Details: All systems reviewed & [...] infusion reaction in February 2022. [facility] - History Attestation statement: The following information [...] DAILY PRN Anxiety 06/18/21 [History Confirmed 01/21/23] UJL-ywsj-VV-omega 3-fat com #1 27 mg-1 mg-300 mg [...] 4% with ferritin 7. Coordinated Venofer infusionsat [facility] (300mg IV x 3 doses) 03/2022 with followup CBC, serum iron profile, and ferritin in one month. Consider GI evaluation for iron deficiency. 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 She does not plan to have children anytime soon, but discussed with her ski patrol the best iron supplementation to be on [...] for coordination of care (as documented) and fwpr-ew-gpsf counseling of patient and/or family. Dictated By: Amanda Rosario MD DD/ 1500 Signed By: <Electronically signed by MD Amanda Rosario> 01/21/232050 [facility] Work Phone: 1(393) 302-423408-17-2022 Progress note Author Ale Malone [facility] July 09, 2022 1:35pm Note Date/Time July 08, 2022 1: 31pm [facility] [address] [address] Hem/Onc Follow Up Note - OP Signed with Cici Patient: Ailyn Resendiz MR#: [id number] : 1995 Acct:[id number] Age/Sex: 27 / F Type: REG RCR Copies to: MD Sarah Gillespie MD Marc Naderer, MD~ ADDENDUM1 After discussion with Dr. Rosario, we will have the patient follow-up in 3 months instead of 6, and will plan repeat CT c/a/p prior to that visit. Addendum Dictated By: KIKI Ale Malone Addendum Signed By: 07/09/221334 Addendum Cosigned [...] dyspepsia. We will coordinate parenteral iron at [facility] per her request. Normal thyroid, cortisol,and CMP [...] trauma. She was seen by dermatology at [facility] in [place] and underwent a biopsy of the right [...] & no additional complaints except as documented [facility] - Medical History Medical History: Medical History [...] % (Auto) 61.2, Lymph % (Auto) 26.6, [place] % (Auto) 9.7, Eos % (Auto) 1.2, Baso % (Auto) 1.3, Neut # (Auto) 3.4, Lymph # (Auto) 1.5, [place] # (Auto) 0.5, Eos# (Auto) 0.1, Baso [...] ferritin 7. Will have Venofer infusions at [facility] (300mg IV x 3 doses) with followup CBC, serum iron profile,and ferritin in one month. Consider GI evaluation for iron deficiency. 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 Dictated By: Ale Malone APRN DD/ 1331 Signed By: <Electronically signed by KIKI Malone> 07/09/22 [facility] [facility] Work Phone: 1(364) 365-596405-12-2022 Progress note Author Amanda Rosario [facility] April 03, 2022 8:56pm Note Date/Time April 02, 2022 8:30p [facility] [place] [address] Hem/Onc Follow Up Note - OP Signed Patient: Ailyn Resendiz MR#: [id number] : 1995 Acct:[id number] Age/Sex: 26 / F Type: REG RCR [...] dyspepsia. We will coordinate parenteral iron at [facility] per her request. Normal thyroid, cortisol,and CMP [...] trauma. She was seen by dermatology at [facility] in [place] and underwent a biopsy of the right [...] Creatinine Clear 115.14, Sodium 136, Potassium 4.1, Utdsszgy829, Carbon Dioxide 24.5, BUN 9, Creatinine 0.76, [...] % (Auto) 46.7, Lymph % (Auto) 30.6, [place] % (Auto) 20.8, Eos % (Auto) 0.9, Baso % (Auto) 1.0, Neut # (Auto) 1.6 L, Lymph # (Auto) 1.1, [place] # (Auto) 0.7, Eos # (Auto) 0.0, [...] ferritin 7. Will have Venofer infusions at [facility] (300mg IV x 3 doses) with followup [...] for coordination of care (as documented) and aotl-vu-ikep counseling of patient and/or family. Dictated By: Amanda Rosario MD DD/ 28 Signed By: <Electronically signed by MD Amanda Rosario> 04/03/222055 [facility] Work Phone: 1(391) 379-648402-23-2022 Progress note Author Amanda Rosario [facility] January 15, 2022 9:15pm Note Date/Time January 15, 2022 11:55am [facility] [place] [address] Hem/Onc Follow Up Note - OP Signed Patient: Ailyn Kang MR#: [id number] : 1995 Acct:[id number] Age/Sex: 26 / F Type: REG RCR [...] trauma. She was seen by dermatology at [facility] in [place] and underwent a biopsy of the right [...] Document 07/11/21 09:30 MR (Rec: 07/11/21 10:19 [id number]) Distress Screening Distress Score: 2 Emotional [...] nodes. Impression dictated by: Paresh Gilmore Jr., D.ODavid12/31/2021 1:08 PM Assessment and Plan - TNM [...] for coordination of care (as documented) and wfla-wg-qjxa counseling of patient and/or family. Dictated By: Amanda Rosario MD DD/ 1155 Signed By: <Electronically signed by MD Amanda Rosario> 01/15/22 [address] [facility] Work Phone: 1(126) 894-442311-11-2021 Progress note Author [facility] October 03, 2021 10:47am Note Date/Time October 03, 2021 10:34am [facility] [place] [address] Hem/Onc Follow Up Note - OP Signed Patient: Ailyn Kang MR#: [id number] : 1995 Acct:[id number] Age/Sex: 26 / F Type: REG RCR [...] trauma. She was seen by dermatology at [facility] in [place] and underwent a biopsy of the right [...] environmental allergies and food allergies. [facility] - Medical History Medical History: Medical History [...] Creatinine Clear 112.19, Sodium 139, Potassium 4.1, Ynveejej010, Carbon Dioxide 26.4, BUN 9, Creatinine 0.78, [...] % (Auto) 66.7, Lymph % (Auto) 23.1, [place] % (Auto) 8.3, Eos % (Auto) 1.0, Baso % (Auto) 0.9, Neut # (Auto) 5.0, Lymph # (Auto) 1.7, [place] # (Auto) 0.6, Eos# (Auto) 0.1, Baso [...] for coordination of care (as documented) and nkhb-mq-dheo counseling of patient and/or family. Dictated By: Denia Alvares APRN DD/ 1025 Signed By: <Electronically signed by KIKI Alvares> 10/03/21 1047 [facility] Work Phone: 1([phone]) 136-930108-27-2021 Progress note Author Amanda Rosario [facility] July 19, 2021 12:54pm Note Date/Time July 18, 2021 2: 10pm [facility] [address] [address] Hem/Onc Follow Up Note - OP Signed Patient: Ailyn Kang MR#: [id number] : 1995 Acct:[id number] Age/Sex: 26 / F Type: REG RCR [...] trauma. 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 She signed informed consent for Nivolumab immunotherapy [...] for coordination of care (as documented) and hlys-ac-apum counseling of patient and/or family. Dictated By: Amanda Rosario MD DD/ 1409 Signed By: <Electronically signed by MD Amanda Rosario> 07/19/21 5185 [facility] Work Phone: 1([phone]) 401-710908-03-2021 Consult note Author Amanda Rosario [facility] June 24, 2021 10:09pm Note Date/Time June 24, 2021 2:1 8pm [facility] [place] [address] Hem/Onc Consult Note - OP Signed Patient: Ailyn Kang MR#: [id number] : 1995 Acct:[id number] Age/Sex: 26 / F Type: REG RCR [...] trauma. 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 She signed informed consent for Nivolumab immunotherapy [...] for coordination of care (as documented) and odig-df-dokq counseling of patient and/or family. 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 Note Recipients: Price Girard MD - [phone] [] Bettina Madera PAC - [phone] [] Attestation: Note Completion: Attending AttestationI performed the procedure without a resident Electronic Signatures: Sarah Nevarez) (Signed 17-May-2021 18:18) Authored: Post-Operative Note, Chart Review, Note Completion Last Updated: 17-May-2021 18:18 by Sarah Nevarez)[facility] [place] History of Present illness Btrgkbztn89-wxom-ucs woman who underwent wide excision right posterior calf melanoma with Compton flap reconstruction as well as right inguinal and iliac sentinel lymph node biopsy on 05/17/2021. Pathology report has not yet resulted. She is recovering well.[facility] Work Phone: 1(695) 958-315806-25-2021 History of Present illness Narrative 25-year-old woman who underwent wide excision right posterior calf melanoma with Compton flap reconstruction as well as right inguinal and iliac sentinel lymph node biopsy on 05/17/2021. Pathology report has not yet resulted. She is recovering well.[facility] Work Phone: 1([phone]) 452-734606-25-2021 NoteHistory & Physical Reviewed: /Lactating: Are You [...] what the risks are. Electronic Signatures: Sarah Nevarez) (Signed 17-May-2021 09:36) Authored: History & Physical Reviewed, ERAS, Consent, Note Completion Last Updated: 17-May-2021 09:36 by Sarah Nevarez) References: 1. Data Referenced From Patient Profile - Preop v2 17-May-2021 09:27[facility]06-22-[facility]21 NoteAccession #: [id number] Pathologist: ANUJA OLIVO MD Date of Procedure: 05/14/2021 Date Received: 05/14/2021 Submitting Physician: SARAH NEVAREZ MD Location: [facility] Copy To/Referring/Attending: ROLY EDGE DO FINAL DIAGNOSIS 2 SLIDES, [facility] #[id number] (BX: 04/23/2021) SKIN, RT POST LEG, SHAVE [...] MD. CANCER SUMMARY REPORT A. 2 SLIDES, [facility] #[id number] (BX: 04/23/2021): SPECIMEN Procedure: Biopsy, shave Specimen [...] report. Primary Tumor (pT): pT3b ADDITIONAL TESTING CABLE TV INSTALLER BLOCKS: Tumor Block: CSPL slide [id number] Electronically Signed Out By ANUJA OLIVO MD/BRR Microscopic Description: Microscopic examination performed. Clinical History: SHAVE/ BCC VS MM VS PG 1.9 X 1.9CM Specimens Submitted As: A: 2 SLIDES, [facility] #[id number] (BX: 04/23/2021) Gross Description: Received for consultation from [facility] are two slides labeled [id number] (BX: 04/23/2021) along with the corresponding pathology report. Slide/Block Description 2 SLIDES, [id number]. Keep Slides: N Slides Returned: N Personal Consult[facility]Comment [facility]:Performed By: #### D #### DermatopathologyEvaluation noteN/ADept. 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 Evaluation note* Diagnosis Onset Date Resolution Status Iron deficiency anemia acute Chiari malformation type I c hronic Edema of right lower extremity chronic Encounter for antineoplastic immunotherapy chronic Malignant melanoma of right lower leg chronic [facility] Work Phone: Evaluation note* Diagnosis Onset Date Resolution Status Chiari malformation type I c hronic Edema of right lower extremity chronic Encounter for antineoplastic immunotherapy chronic Iron deficiency anemia chron ic Malignant melanoma of right lower leg chronic [facility] Work Phone: Evaluation noteNo assessment information available [facility] Work Phone: Hospital Discharge instructionsAmbulatory Orders* RISE Order Time Frame: 1 Day, Location: Determined By Patient * Survivourship Follow Up Time Frame: 3 Months, Location: Determined By Patient [facility] Work Phone: Progress note Author Ale Malone [facility] July 09, 2022 1:35pm Note Date/Time July 08, 2022 1: 31pm [facility] [place] [address] Hem/Onc Follow Up Note - OP Signed with Addenda Patient: Ailyn Resendiz MR#: [id number] : 1995 Acct:[id number] Age/Sex: 27 / F Type: REG RCR [...] dyspepsia. We will coordinate parenteral iron at [facility] per her request. Normal thyroid, cortisol,and CMP [...] trauma. She was seen by dermatology at [facility] in [place] and underwent a biopsy of the right [...] % (Auto) 61.2, Lymph % (Auto) 26.6, [place] % (Auto) 9.7, Eos % (Auto) 1.2, Baso % (Auto) 1.3, Neut # (Auto) 3.4, Lymph # (Auto) 1.5, [place] # (Auto) 0.5, Eos# (Auto) 0.1, Baso [...] ferritin 7. Will have Venofer infusions at [facility] (300mg IV x 3 doses) with followup CBC, serum iron profile,and ferritin in one month. Consider GI evaluation for iron deficiency. 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 She does not plan to have children anytime soon, but discussed with her ski [employer] the best iron supplementation to be on [...] for coordination of care (as documented) and aylk-pf-qeay counseling of patient and/or family. Dictated By: Ale Malone APRN DD/ 1331 Signed By: <Electronically signed by KIKI Ale Malone> 07/09/22 0[address] [facility] Work Phone: Progress note Author Amanda Rosario [facility] January 21, 2023 8:51pm Note Date/Time January 21, 2023 3:01 pm [facility] [place] [address] Hem/Onc Follow Up Note - OP Signed Patient: Ailyn Resendiz MR#: [id number] : 1995 Acct:[id number] Age/Sex: 27 / F Type: REG RCR Copies to: MD Mike Ewing MD~ Subjective Date/Time of Service: Date of Service: 01/21/2023 Time of Service: 15:00 Chief Complaint: Patient is here today for a 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 No new concerns HPI: 01/21/2023: Ailyn had review of restaging CT CAP by phone with [employer] in October--no evidence of recurrence. Saw dermatology [...] dyspepsia. We will coordinate parenteral iron at [facility] per her request. Normal thyroid, cortisol,and CMP [...] trauma. She was seen by dermatology at [facility] in [place] and underwent a biopsy of the right [...] 3. Venofer for iron deficiency anemia at [facility] 03/2022 ROS Details: All systems reviewed & [...] DAILY PRN Anxiety 06/18/21 [History Confirmed 01/21/23] LVV-vmhj-LQ-omega 3-fat com #1 27 mg-1 mg-300 mg [...] prior study. Impression dictated by: Paresh Gilmore Jr. DDavidODavid01/09/2023 12:04 PM Assessment and Plan - [...] 4% with ferritin 7. Coordinated Venofer infusionsat [facility] (300mg IV x 3 doses) 03/2022 with followup CBC, serum iron profile, and ferritin in one month. Consider GI evaluation for iron deficiency. 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 She does not plan to have children anytime soon, but discussed with her ski [employer] the best iron supplementation to be on [...] for coordination of care (as documented) and wlwo-tp-ompf counseling of patient and/or family. Dictated By: Amanda Rosario MD DD/ 1500 Signed By: <Electronically signed by MD Amanda Rosario> 01/21/232050 [facility] Work Phone: Reason for referral (narrative)* Name Reason for referral [facility] Dept. 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 Summary Purpose Family History [...] section and content) DATE CREATED AUTHOR 05/31/2021 [facility] DATE CREATED AUTHOR AUTHOR'S ORGANIZ ATION 06/18/2021 [facility] DATE CREATED AUTHOR AUTHOR'S ORGANIZ ATION 08/01/2021 [facility] DATE CREATED AUTHOR AUTHOR'S ORGANIZ ATION 01/18/2022 [facility] DATE CREATED AUTHOR AUTHOR'S ORGANIZ ATION 04/08/2023 [facility] DATE CREATED AUTHOR AUTHOR'S ORGANIZ ATION 11/20/2023 [facility] EPIC DATE CREATED AUTHOR AUTHOR'S ORGANIZ ATION 11/21/[address] [facility] Care Teams (unrecognized sec tion and content) [...] BE BASED ON THE PRIMARY CLINICAL RECORDS. [facility] [facility]. provides no warranty or guarantee of the accuracy or completeness of information in this document.
[2024-02-16 09:12] LABS: Age Gdln ACOG Testing Note (.); IGP, rfx Aptima HPV ASCU Note (.)
== END 2024-02-10 21:07 | disposition home or self-care (01) ==
LOC: LAB 21:06
PROVIDERS: PCP Family Medicine; Visit Provider Obstetrics & Gynecology
DX: Z01.419 Encounter for gynecological examination (general) (routine) without abnormal findings (principal)
CPT/HCPCS: G0145

== ENCOUNTER 2024-06-28 11:23 | Outpatient (RCR) | payer BC, SELFPAY ==
[2024-06-28 12:44] LABS: HCG Quantitative 9 mIU/mL
[2024-06-30 09:44] LABS: HCG Quantitative 4 mIU/mL
== END 2024-07-23 23:59 | disposition home or self-care (01) ==
LOC: LAB 11:23
PROVIDERS: PCP Family Medicine; Visit Provider Obstetrics & Gynecology
DX: N92.6 Irregular menstruation, unspecified (principal)
CPT/HCPCS: 36415; 84702

== ENCOUNTER 2024-08-02 13:30 | Outpatient (OUT) | payer BC, SELFPAY ==
[2024-08-02 14:38] LABS: HCG Quantitative 824 mIU/mL
== END 2024-08-02 13:31 | disposition home or self-care (01) ==
LOC: LAB 13:31
PROVIDERS: PCP Family Medicine; Visit Provider Obstetrics & Gynecology
DX: N92.6 Irregular menstruation, unspecified (principal)
CPT/HCPCS: 36415; 84702

== ENCOUNTER 2024-08-04 08:42 | Outpatient (RCR) | payer BC, SELFPAY ==
[2024-08-04 10:42] LABS: HCG Quantitative 1850 mIU/mL
== END 2024-08-22 23:59 | disposition home or self-care (01) ==
LOC: LAB 08:42
PROVIDERS: PCP Family Medicine; Visit Provider Obstetrics & Gynecology
DX: N92.6 Irregular menstruation, unspecified (principal)
CPT/HCPCS: 36415; 84702

== ENCOUNTER 2024-08-26 09:31 | Outpatient (OUT) | payer BC, SELFPAY ==
--- NOTE | 2024-08-26 09:33 | US_ITS ---
[address] [address] Patient Name: BRADY BARON MRN: [id number] date: 1995 Sex: F Assigned Patient Location: [facility] Current Patient Location: [facility] Accession/Order Number: [id number] Exam Date: 08/26/2024 09:33 Report Date: 08/26/2024 10:15 At the request of: CRUZ JOHNSON Procedure: US OB transvaginal EXAMINATION: US OB transvaginal HISTORY: MISSED MENSES COMPARISON: No relevant comparison available. FINDINGS: GESTATIONAL SAC: Present and normal appearing. YOLK SAC: Present and normal appearing. POLE: Present and normal appearing. CARDIAC: Present. UTERUS: Normal size and appearance. OVARIES: Right: Normal. Left: Normal. CERVIX: 4.4 cm in length and closed. CUL-DE-SAC: Normal. OTHER: None. AGE BY LMP: Unknown LMP ELIE BY LMP: AGE BY US CRL: 8 weeks 1 day ELIE BY US CRL: 04/06/2025 US/US OB transvaginal IMPRESSION: 1. Single live intrauterine 8 weeks 1 day by today's ultrasound. Electronically authenticated by: MORE FARLEY Date: 08/26/2024 10:15
--- OUTSIDE RECORDS SUMMARY | 2024-08-26 09:43 | XMS_ITS | CCD ---
Author Organization [facility] Care Team Providers Care Athlete Manager Name Role Phone Price Girard Unavailable Unavailable Unavailable Essence Blevins Unavailable Unavailable MD Amanda Rosario Attending Provider [phone] MD Sarah Nevarez Referring Provider [phone] MD Mike Wagner Primary Care Provider [phone] MD Amanda Rosario Attending Provider MD Sarah Nevarez Referring Provider [phone] MD Mike Wagner Primary Care Provider KT ., DR ARROYO Admitting Unavailable KT ., DR ARROYO Consulting Unavailable NADERER, DR MIKE Bolaños Primary Care Unavailable KT ., DR ARROYO Attending Unavailable KT ., DR ARROYO Consulting Unavailable KT ., DR ARROYO Attending Unavailable NADERER, DR MIKE Bolaños Primary Care Unavailable KT ., DR ARROYO Admitting Unavailable ZIEBER, DR MORE Rodarte Consulting Unavailable REQUEST, DR SWENSON LISTED Consulting Unavaila ble ABRAHAM, DR AMANDA Arroyo Admitting Unavailable NADERER, DR MIKE Bolaños Primary Care Unavailable ABRAHAM, DR AMANDA Arroyo Attending Unavailable NADSHMUEL, DR MIKE Bolaños Primary Care Unavailable NADSHMUEL, DR MIKE Bolaños Consulting Unavailable NADSHMUEL, DR MIKE Bolaños Attending Unavailable NADERER, DR MIKE Bolaños Admitting Unavailable KT ., DR ARROYO Attending Unavailable KT ., DR ARROYO Admitting Unavailable KT ., DR ARROYO Consulting Unavailable NADSHMUEL, DR MIKE Bolaños Primary Care Unavailable KT ., DR ARROYO Consulting Unavailable KT ., DR ARROYO Attending Unavailable NADERER, DR MIKE Bolaños Primary Care Unavailable KT ., DR ARROYO Admitting Unavailable KT ., DR ARROYO Consulting Unavailable KT ., DR ARROYO Attending Unavailable KT ., DR ARROYO Admitting Unavailable NADERER, DR IMKE Bolaños Primary Care Unavailable KT ., DR ARROYO Consulting Unavailable KT ., DR ARROYO Attending Unavailable NADERER, DR MIKE Bolaños Primary Care Unavailable KT ., DR ARROYO Admitting Unavailable KT ., DR ARROYO Consulting Unavailable KT ., DR ARROYO Attending Unavailable NADERER, DR MIKE Bolaños Primary Care Unavailable KT ., DR ARROYO Admitting Unavailable KT ., DR ARROYO Consulting Unavailable NADERER, DR MIKE Bolaños Primary Care Unavailable KT ., DR ARROYO Attending Unavailable KT ., DR ARROYO Admitting Unavailable MD Amanda Rosario Attending Provider MD Sarah Nevarez Referring Provider MD Mike Wagner Primary Care Provider Mike Wagner Primary Care Unavailable Amanda Rosario Admitting Unavailable Amanda Rosario Attending Unavailable Sarah Nevarez Referring Unavailable Mike Wagner MD Primary Care Provider [phone] Shaikh Melendrez MD Unavailable DELVIS MERAZ Attending Unavailable DELVIS MERAZ Attending Unavailable DELVIS MERAZ Attending Unavailable GILBERTO HARRINGTON Attending Unavailable Allergies Allergy Classification Reported Allergen(s) [...] MG PO Daily August 19, 2023 12:00am Multiple Vitamin (multivitamin) tablet (1 source) take 1 tablet by mouth once daily Multiple Vitamin (multivitamin) tablet Take 1 tablet by mouth Daily Active Qjy-Aqca-Nw-[place] 3-Fat Com #1 (Pre-Jeanette Multivitamins/Engineer Chief als) 27-1-300 mg Capsule (3 sources) Start: 01-21-2023 Obj-Rntw-Vv-[place] 3-Fat Com #1 (Pre-Jeanette Multivitamins/Mine rals) 27-1-300 mg Capsule Active CAP PO January 21, 2023 1:00am Start: 01-21-2023 Fsm-Urbr-Yf-Om ega 3-Fat Com #1 (Pre-Jeanette Multivitamins/Minerals) 27-1-300 mg Capsule Active CAP PO January 21, 2023 12:00am Progesterone 200 MG supposit ory (1 source) Start: 08-05-2024 End: 09-04-2024 Progesterone 200 MG supposit ory Indications: History of miscarriage Insert 200 mg into the vagina at bedtime Insert suppository vaginally every night at bedtime until 12 weeks gestation 30 suppository 08/05/2024 09/04/2024 Active Completed/Discontinued Medications Medication Drug Class(es) Dates Sig [...] Problem Classification Problem Date Documented Date Episodic/Chronic Administrative/socia l admission (4 sources) Problems related to multiparity; Translations: [PROBLEMS RELATED TO MULTIPARITY] Onset: 01-30-2023 Episodic Deficiency and other anemia (4 sources) Iron deficiency anemia; Translations: [Iron deficiency anemia, unspecified] 04-03-2022 Episodic Deficiency and other anemia (3 sources) Iron deficiency anemia, unspecified; Translations: [Iron deficiency anemia, unspecified] 07-08-2022 Episodic Esophageal disorders (1 source) Laryngopharyngeal reflux; Translations: [Gastro-esophageal reflux disease without esophagitis] Onset: 02-22-2024 02-22-2024 Chronic Immunizations and screening for infectious disease (2 sources) Encounter for screening for human papillomavirus (HPV); Translations: [Encounter for screening for infections with a predominantly sexual mode of transmission] Onset: 06-17-2022 Episodic Maintenance chemotherapy; radiotherapy (7 sources) Patient encounter status; Translations: [Encounter for antineoplastic immunotherapy] 07-19-2021 Chronic Melanomas of skin (13 sources) Malignant melanoma of lower leg; Translations: [Malignant melanoma of skin of lower limb, including hip] Onset: 04-14-2023 07-19-2021 Chronic Menstrual disorders (9 sources) Irregular menstruation, unspecified; Translations: [Amenorrhea, unspecified] [...] Problem Classification Problem Date Documented Date Episodic/Chronic Acute and chronic tonsillitis (1 source) Acute tonsillitis; Translations: [Acute tonsillitis due to other specified organisms] Onset: 02-22-2024 02-22-2024 Episodic Deficiency and other anemia (1 source) Anemia; Translations: [Anemia, unspecified] Onset: 04-14-2023 04-14-2023 Episodic Other female genital disorders (4 sources) Other specified noninflammatory disorders of vagina; Translations: [OTH SPEC NONINFLAMMATORY D/O VAGINA] Onset: 06-16-2022 Episodic Other female genital disorders (1 source) Polyp of cervix; Translations: [Polyp of cervix uteri] Onset: 04-14-2023 04-14-2023 Episodic Other female genital disorders (1 source) Disorder of female genital system; Translations: [Unspecified condition associated with female genital organs and menstrual cycle] Onset: 04-14-2023 04-14-2023 Episodic Other female genital disorders (1 source) Noninflammatory disorder of the vagina; Translations: [Other specified noninflammatory disorders of vagina] Onset: 04-14-2023 04-14-2023 Episodic Other lower respiratory disease (1 source) Solitary nodule of lung; Translations: [Solitary pulmonary nodule] Onset: 04-14-2023 04-14-2023 Episodic Otitis media and related conditions (1 source) Acute suppurative otitis media without spontaneous rupture of ear drum; Translations: [Acute suppurative otitis media without spontaneous rupture of ear drum, right ear] Onset: 02-22-2024 02-22-2024 Episodic Results Test Name Value Interpretation Reference Range Facility Complete Blood Count Auto Di ffon 08-17-2023 Basophils (Bld) [#/Vol] 0.0 10*3/uL Normal 0.0-0.2 [facility] Comment on above: Result Comment: PERF ORMED BY: [facility] [address] [place] [address] PATHOLOGIST EXTRUDER OPERATOR HELPER RUSS DAVIS M.D. Performed By: #### C MP, TSH3, CBC, T4F, T3F ####[place] [id number] [facility] Basophils/100 WBC (Bld) 0.4 % Normal . [facility] Comment on above: Performed By: #### C MP, TSH3, CBC, T4F, T3F ####[facility] [place] [id number] [facility] Eosinophils (Bld) [#/Vol] 0.1 10*3/uL Normal 0.0-0.45 [facility] Comment on above: Performed By: #### C MP, TSH3, CBC, T4F, T3F ####[place] [id number] [place] [id number] [place] Eosinophils/100 WBC (Bld) 0.6 % Normal . [facility] Comment on above: Performed By: #### C MP, TSH3, CBC, T4F, T3F ####[address] Erythrocyte distribution width (RBC) [Ratio] 13.3 % Normal 11.9-15.3 [facility] Comment on above: Performed By: #### C MP, TSH3, CBC, T4F, T3F ####[address] Hematocrit (Bld) [Volume fraction] 34.5 % Normal 34.0-46.4 [facility] Comment on above: Performed By: #### C MP, TSH3, CBC, T4F, T3F ####[address] Hemoglobin (Bld) [Mass/Vol] 11.6 g/dL Low 11.8-15.4 [facility] Comment on above: Performed By: #### C MP, TSH3, CBC, T4F, T3F ####[address] Lymphocytes (Bld) [#/Vol] 1.2 10*3/uL Normal 1.00-4.8 [facility] Comment on above: Performed By: #### C MP, TSH3, CBC, T4F, T3F ####[address] Lymphocytes/100 WBC (Bld) 12.2 % Normal . [facility] Comment on above: Performed By: #### C MP, TSH3, CBC, T4F, T3F ####[address] MCH (RBC) [Entitic mass] 30.5 pg Normal 24.7-34.3 [facility] Comment on above: Performed By: #### C MP, TSH3, CBC, T4F, T3F ####[address] MCV (RBC) [Entitic vol] 90.4 fL Normal 80-100 F [facility] Comment on above: Performed By: #### C MP, TSH3, CBC, T4F, T3F ####[address] Mean Corpuscular HGB Conc 33.8 g/dL Normal 32.0-35.0 [facility] Comment on above: Performed By: #### C MP, TSH3, CBC, T4F, T3F ####[address] Monocytes (Bld) [#/Vol] 0.6 10*3/uL Normal 0.0-0.8 [facility] Comment on above: Performed By: #### C MP, TSH3, CBC, T4F, T3F ####[address] Monocytes/100 WBC (Bld) 6.5 % Normal . [facility] Comment on above: Performed By: #### C MP, TSH3, CBC, T4F, T3F ####[address] Neutrophils (Bld) [#/Vol] 7.8 10*3/uL High 1.8-7.7 [facility] Comment on above: Performed By: #### C MP, TSH3, CBC, T4F, T3F ####[address] Neutrophils/100 WBC (Bld) 80.3 % Normal . [facility] Comment on above: Performed By: #### C MP, TSH3, CBC, T4F, T3F ####[address] NRBC% 0.0 /100{WBC} Normal 0-0.5 [facility] Comment on above: Performed By: #### C MP, TSH3, CBC, T4F, T3F ####[address] Platelet mean volume (Bld) [Entitic vol] 7.8 fL Normal 6.3-10.7 [facility] Comment on above: Performed By: #### C MP, TSH3, CBC, T4F, T3F ####[address] Platelets (Bld) [#/Vol] 237 10*3/uL Normal 150-450 [facility] Comment on above: Performed By: #### C MP, TSH3, CBC, T4F, T3F ####[address] RBC (Bld) [#/Vol] 3.82 10*6/uL Normal 3.60-5.00 [facility] Comment on above: Performed By: #### C MP, TSH3, CBC, T4F, T3F ####[address] WBC (Bld) [#/Vol] 9.7 10*3/uL Normal 3.8-11.6 [facility] Comment on above: Performed By: #### C MP, TSH3, CBC, T4F, T3F ####[address] Comprehensive Metabolic Pane dustin 08-17-2023 Albumin [Mass/Vol] 3.3 g/dL Low 3.5-5.7 [facility] Comment on above: Performed By: #### C MP, TSH3, CBC, T4F, T3F ####[address] Albumin/Globulin [Mass ratio] 1.5 {ratio} Normal [facility] Comment on above: Performed By: #### C MP, TSH3, CBC, T4F, T3F ####[address] ALP [Catalytic activity/Vol] 92 U/L Normal 34-104 [facility] Comment on above: Performed By: #### C MP, TSH3, CBC, T4F, T3F ####[address] [place] [address] [facility] ALT [Catalytic activity/Vol] 11 U/L Normal 7-52 [facility] Comment on above: Performed By: #### C MP, TSH3, CBC, T4F, T3F ####[place] [id number] [facility] Anion gap [Moles/Vol] 9.4 mmol/L Normal 6.0-15.0 [facility] Comment on above: Performed By: #### C MP, TSH3, CBC, T4F, T3F ####[place] [id number] [facility] AST [Catalytic activity/Vol] 16 U/L Normal 13-39 [facility] Comment on above: Performed By: #### C MP, TSH3, CBC, T4F, T3F ####[place] [id number] [facility] Bilirubin [Mass/Vol] 0.3 mg/dL Normal 0.3-1.0 [facility] Comment on above: Performed By: #### C MP, TSH3, CBC, T4F, T3F ####[place] [id number] [facility] Calcium [Mass/Vol] 8.5 mg/dL Low 8.6-10.3 [facility] Comment on above: Performed By: #### C MP, TSH3, CBC, T4F, T3F ####[place] [id number] [facility] Chloride [Moles/Vol] 105 mmol/L Normal 98-107 [facility] Comment on above: Performed By: #### C MP, TSH3, CBC, T4F, T3F ####[place] [id number] [facility] CO2 [Moles/Vol] 27.3 mmol/L Normal 21.0-31.0 [facility] Comment on above: Performed By: #### C MP, TSH3, CBC, T4F, T3F ####[place] [id number] [facility] Creatinine [Mass/Vol] 0.65 mg/dL Normal 0.60-1.20 [facility] Comment on above: Performed By: #### C MP, TSH3, CBC, T4F, T3F ####[place] [address] [place] [address] [facility] Creatinine Clr Calc Pharmacy 132.31 [facility] Comment on above: Performed By: #### C MP, TSH3, CBC, T4F, T3F ####[place] [address] [place] [address] [facility] GFR/1.73 sq M.predicted MDRD (S/P/Bld) [Vol rate/Area] mL/min/{1.73_m2} [facility] Comment on above: Performed By: #### C MP, TSH3, CBC, T4F, T3F ####[place] [address] [place] [address] [facility] Globulin (S) [Mass/Vol] 2.2 g/dL Normal [facility] Comment on above: Performed By: #### C MP, TSH3, CBC, T4F, T3F ####[place] [id number] [facility] Glucose [Mass/Vol] 93 mg/dL Normal 70-100 [facility] Comment on above: Result Comment: [facility] Glucose Reference Range is dependent on time and content of last meal. Glucose of more than 200 mg/dL in a nonstressed, ambulatory subject supports the diagnosis of Diabetes Mellitus. ADA recommended reference range Performed By: #### C MP, TSH3, CBC, T4F, T3F ####[address] [address] [facility] Potassium [Moles/Vol] 3.7 mmol/L Normal 3.5-5.1 [facility] Comment on above: Performed By: #### C MP, TSH3, CBC, T4F, T3F ####[address] [address] [facility] Protein [Mass/Vol] 5.5 g/dL Low 6.4-8.9 [facility] Comment on above: Performed By: #### C MP, TSH3, CBC, T4F, T3F ####[place] [address] [place] [id number] [facility] Sodium [Moles/Vol] 138 mmol/L Normal 136-145 [facility] Comment on above: Performed By: #### C MP, TSH3, CBC, T4F, T3F ####[place] [address] [place] [id number] [facility] Urea nitrogen [Mass/Vol] 9 mg/dL Normal 06-16 [facility] Comment on above: Performed By: #### C MP, TSH3, CBC, T4F, T3F ####[place] [id number] [facility] Free T4 (Free Thyroxine)on 0 08-17-2023 Free T4 [Mass/Vol] 0.59 ng/dL Low 0.61-1.12 [facility] Comment on above: Performed By: #### C MP, TSH3, CBC, T4F, T3F ####[place] [id number] [facility] Thyroid Stimulating Hormoneo n 08-17-2023 TSH Qn 2.02 m[IU]/L Normal 0.45-5.33 [facility] Comment on above: Result Comment: PERF ORMED BY: [facility] [address] [place] [id number] PATHOLOGIST EXTRUDER OPERATOR HELPER RUSS DAVIS M.D. Performed By: #### C MP, TSH3, CBC, T4F, T3F ####[place] [id number] [facility] Triiodothyronine (T3) Freeon 08-17-2023 Triiodothyronine (T3) Free 2.72 pg/mL Normal 2.50-3.90 [facility] Comment on above: Result Comment: PERF ORMED BY: [facility] [address] [place] [address] PATHOLOGIST EXTRUDER OPERATOR HELPER RUSS DAVIS M.D. Performed By: #### C MP, TSH3, CBC, T4F, T3F ####[facility] [address] [place] [address] [facility] US extremity nonvascularon 0 08-17-[address] [facility] Main [place] [id number] Ultrasound Report Signed Patient: Ailyn Resendiz MR#: [id number] : 1995 Acct:[id number] Age/Sex: 28 / F ADM Date: 08/17/23 Loc: Room: Type: [facility] Attending Dr: Amanda Rosario MD [...] Thony Lopes M.D.08/17/2023 2:39 PM Dictation Location: [place] [address] Tech: Rivka Zhao Transcribed By: LEOPOLDO 08/17/23 143 Dictated By: Thony Lopes II, MD 08/17/23 143 Signed By: 08/17/23 143 Normal [facility] US extremity nonvascularon 0 05-27-[address] [facility] Main [place] [id number] Ultrasound Report Signed Patient: Ailyn Resendiz MR#: [id number] : 1995 Acct:[id number] Age/Sex: 27 / F ADM Date: 05/27/23 Loc: XT Room: Type: [facility] Attending Dr: Amanda Rosario MD Ordering Provider: [...] study. Impression dictated by: Paresh Gilmore Jr., DDavidODavid05/27/2023 8:12 PM Dictation Location: [place] [address] Tech: Uma Leanna Transcribed By: LEOPOLDO 05/27/232011 Dictated By: Paresh Gilmore Jr, DO 05/27/232009 Signed By: 05/27/232011 Normal [facility] Adrenocorticotropic Hormone PLon 05-20-[address] 10.8 pg/mL Normal 7.2-63.3 [facility] Comment on above: Result Comment: ACTH reference interval for samples collected between 7 and 10 AM. Performed at: [facility] [id number] Nonprofit Director: Sai Smalls PhD, Phone: [phone] PERFORMED BY: [place] [address] PATHOLOGIST EXTRUDER OPERATOR HELPER RUSS DAVIS M.D. Performed By: #### C MP, TSH3, T4F, T3F, CBC #### [address] #### ACTH #### [facility] , Alanine aminotransferase [En zymatic activity/volume] in Serum or PlasmaOrdered By: Amanda Rosario on 05-20-2023 ALT [Catalytic activity/Vol] 9 U/L 7-52 [facility] Albumin [Mass/volume] in Ser um or Plasma by Bromocresol green (BCG) dye binding methoOrdered By: Amanda Rosario on 05-20-2023 Albumin BCG dye [Mass/Vol] 3.8 g/dL 3.5-5.7 [facility] Alkaline phosphatase [Enzyma tic activity/volume] in Serum or PlasmaOrdered By: Amanda Rosario on 05-20-2023 ALP [Catalytic activity/Vol] 52 U/L 34-104 [facility] Aspartate aminotransferase [ Enzymatic activity/volume] in Serum or PlasmaOrdered By: Amanda Rosario on 05-20-2023 AST [Catalytic activity/Vol] 14 U/L 13-39 [facility] Basophils Auto (Bld) [#/Vol] Ordered By: Amanda Rosario on 05-20-2023 Basophils (Bld) [#/Vol] 0.0 10*3/uL 0.0-0.2 [facility] Basophils/100 WBC Auto (Bld) Ordered By: Amanda Rosario on 05-20-2023 Basophils/100 WBC (Bld) 0.4 % . [facility] Bilirubin.total [Mass/volume ] in Serum or PlasmaOrdered By: Amanda Rosario on 05-20-2023 Bilirubin [Mass/Vol] 0.5 mg/dL 0.3-1.0 [facility] Calcium [Mass/volume] in Ser um or PlasmaOrdered By: Amanda Rosario on 05-20-2023 Calcium [Mass/Vol] 8.5 mg/dL 8.6-10.3 [facility] Carbon dioxide, total [Moles /volume] in Serum or PlasmaOrdered By: Amanda Rosario on 05-20-2023 CO2 [Moles/Vol] 26.1 mmol/L 21.0-31.0 [facility] Chloride [Moles/volume] in [place] or PlasmaOrdered By: Amanda Rosario on 05-20-2023 Chloride [Moles/Vol] 104 mmol/L 98-107 [facility] Complete Blood Count Auto Di ffon 05-20-2023 Basophils (Bld) [#/Vol] 0.0 10*3/uL Normal 0.0-0.2 [facility] Comment on above: Result Comment: PERF ORMED BY: [place] [address] PATHOLOGIST EXTRUDER OPERATOR HELPER RUSS DAVIS M.D. Performed By: #### C MP, TSH3, T4F, T3F, CBC #### [place] [address] [place] #### ACTH #### [facility] , Basophils/100 WBC (Bld) 0.4 % Normal . [facility] Comment on above: Performed By: #### C MP, TSH3, T4F, T3F, CBC #### [address] #### ACTH #### [facility] , Eosinophils (Bld) [#/Vol] 0.1 10*3/uL Normal 0.0-0.45 [facility] Comment on above: Performed By: #### C MP, TSH3, T4F, T3F, CBC #### [facility] [address] [place] [address] [place] #### ACTH #### [facility] , Eosinophils/100 WBC (Bld) 0.6 % Normal . [facility] Comment on above: Performed By: #### C MP, TSH3, T4F, T3F, CBC #### [facility] [address] [place] [address] [place] #### ACTH #### [facility] , Erythrocyte distribution width (RBC) [Ratio] 13.1 % Normal 11.9-15.3 [facility] Comment on above: Performed By: #### C MP, TSH3, T4F, T3F, CBC #### [facility] [address] [place] [address] [place] #### ACTH #### [facility] , Hematocrit (Bld) [Volume fraction] 34.7 % Normal 34.0-46.4 [facility] Comment on above: Performed By: #### C MP, TSH3, T4F, T3F, CBC #### [facility] [address] [place] [address] [place] #### ACTH #### [facility] , Hemoglobin (Bld) [Mass/Vol] 12.0 g/dL Normal 11.8-15.4 [facility] Comment on above: Performed By: #### C MP, TSH3, T4F, T3F, CBC #### [place] [address] [place] #### ACTH #### [facility] , Lymphocytes (Bld) [#/Vol] 1.3 10*3/uL Normal 1.00-4.8 [facility] Comment on above: Performed By: #### C MP, TSH3, T4F, T3F, CBC #### [place] [address] [place] #### ACTH #### [facility] , Lymphocytes/100 WBC (Bld) 12.8 % Normal . [facility] Comment on above: Performed By: #### C MP, TSH3, T4F, T3F, CBC #### [place] [address] [place] #### ACTH #### [facility] , MCH (RBC) [Entitic mass] 31.5 pg Normal 24.7-34.3 [facility] Comment on above: Performed By: #### C MP, TSH3, T4F, T3F, CBC #### [place] [address] [place] #### ACTH #### [facility] , MCV (RBC) [Entitic vol] 91.1 fL Normal 80-100 F [facility] Comment on above: Performed By: #### C MP, TSH3, T4F, T3F, CBC #### [place] [address] [place] #### ACTH #### [facility] , Mean Corpuscular HGB Conc 34.6 g/dL Normal 32.0-35.0 [facility] Comment on above: Performed By: #### C MP, TSH3, T4F, T3F, CBC #### [facility] [address] [place] [address] [place] #### ACTH #### [facility] , Monocytes (Bld) [#/Vol] 0.7 10*3/uL Normal 0.0-0.8 [facility] Comment on above: Performed By: #### C MP, TSH3, T4F, T3F, CBC #### [facility] [address] [place] [address] [place] #### ACTH #### [facility] , Monocytes/100 WBC (Bld) 6.4 % Normal . [facility] Comment on above: Performed By: #### C MP, TSH3, T4F, T3F, CBC #### [facility] [address] [place] [address] [place] #### ACTH #### [facility] , Neutrophils (Bld) [#/Vol] 8.2 10*3/uL High 1.8-7.7 [facility] Comment on above: Performed By: #### C MP, TSH3, T4F, T3F, CBC #### [facility] [address] [place] [address] [place] #### ACTH #### [facility] , Neutrophils/100 WBC (Bld) 79.8 % Normal . [facility] Comment on above: Performed By: #### C MP, TSH3, T4F, T3F, CBC #### [facility] [address] [place] [address] [place] #### ACTH #### [facility] , NRBC% 0.2 /100{WBC} Normal 0-0.5 [facility] Comment on above: Performed By: #### C MP, TSH3, T4F, T3F, CBC #### [facility] [address] [place] [address] [place] #### ACTH #### [facility] , Platelet mean volume (Bld) [Entitic vol] 7.4 fL Normal 6.3-10.7 [facility] Comment on above: Performed By: #### C MP, TSH3, T4F, T3F, CBC #### [facility] [address] [place] [address] [place] #### ACTH #### [facility] , Platelets (Bld) [#/Vol] 256 10*3/uL Normal 150-450 [facility] Comment on above: Performed By: #### C MP, TSH3, T4F, T3F, CBC #### [address] #### ACTH #### [facility] , RBC (Bld) [#/Vol] 3.81 10*6/uL Normal 3.60-5.00 [facility] Comment on above: Performed By: #### C MP, TSH3, T4F, T3F, CBC #### [facility] [address] [place] [address] [place] #### ACTH #### [facility] , WBC (Bld) [#/Vol] 10.3 10*3/uL Normal 3.8-11.6 [facility] Comment on above: Performed By: #### C MP, TSH3, T4F, T3F, CBC #### [place] [address] [place] #### ACTH #### [facility] , Comprehensive Metabolic Pane dustin 05-20-2023 Albumin [Mass/Vol] 3.8 g/dL Normal 3.5-5.7 [facility] Comment on above: Performed By: #### C MP, TSH3, T4F, T3F, CBC #### [address] [place] [address] [place] #### ACTH #### [facility] , Albumin/Globulin [Mass ratio] 1.7 {ratio} Normal [facility] Comment on above: Performed By: #### C MP, TSH3, T4F, T3F, CBC #### [facility] [address] [place] [address] #### ACTH #### [facility] , ALP [Catalytic activity/Vol] 52 U/L Normal 34-104 [facility] Comment on above: Performed By: #### C MP, TSH3, T4F, T3F, CBC #### [facility] [address] [place] [address] #### ACTH #### [facility] , ALT [Catalytic activity/Vol] 9 U/L Normal 7-52 [facility] Comment on above: Performed By: #### C MP, TSH3, T4F, T3F, CBC #### [address] #### ACTH #### [facility] , Anion gap [Moles/Vol] 10.1 mmol/L Normal 6.0-15.0 [facility] Comment on above: Performed By: #### C MP, TSH3, T4F, T3F, CBC #### [facility] [address] [place] [address] [place] #### ACTH #### [facility] , AST [Catalytic activity/Vol] 14 U/L Normal 13-39 [facility] Comment on above: Performed By: #### C MP, TSH3, T4F, T3F, CBC #### [facility] [address] [place] [address] [place] #### ACTH #### [facility] , Bilirubin [Mass/Vol] 0.5 mg/dL Normal 0.3-1.0 [facility] Comment on above: Performed By: #### C MP, TSH3, T4F, T3F, CBC #### [facility] [address] [place] [address] [place] #### ACTH #### [facility] , Calcium [Mass/Vol] 8.5 mg/dL Low 8.6-10.3 [facility] Comment on above: Performed By: #### C MP, TSH3, T4F, T3F, CBC #### [facility] [address] [place] [address] [place] #### ACTH #### [facility] , Chloride [Moles/Vol] 104 mmol/L Normal 98-107 [facility] Comment on above: Performed By: #### C MP, TSH3, T4F, T3F, CBC #### [facility] [address] [place] [address] #### ACTH #### [facility] , CO2 [Moles/Vol] 26.1 mmol/L Normal 21.0-31.0 [facility] Comment on above: Performed By: #### C MP, TSH3, T4F, T3F, CBC #### [facility] [address] [place] [address] [place] #### ACTH #### [facility] , Creatinine [Mass/Vol] 0.56 mg/dL Low 0.60-1.20 [facility] Comment on above: Performed By: #### C MP, TSH3, T4F, T3F, CBC #### [facility] [address] [place] [address] [place] #### ACTH #### [facility] , Creatinine Clr Calc Pharmacy 154.92 [facility] Comment on above: Performed By: #### C MP, TSH3, T4F, T3F, CBC #### [facility] [address] [place] [address] [place] #### ACTH #### [facility] , GFR/1.73 sq M.predicted MDRD (S/P/Bld) [Vol rate/Area] mL/min/{1.73_m2} Normal [facility] Comment on above: Performed By: #### C MP, TSH3, T4F, T3F, CBC #### [facility] [address] [place] [address] [place] #### ACTH #### [facility] , Globulin (S) [Mass/Vol] 2.3 g/dL Normal [facility] Comment on above: Performed By: #### C MP, TSH3, T4F, T3F, CBC #### [facility] [address] [place] [address] [place] #### ACTH #### [facility] , Glucose [Mass/Vol] 72 mg/dL Normal 70-100 [facility] Comment on above: Result Comment: [facility] Glucose Reference Range is dependent on time and content of last meal. Glucose of more than 200 mg/dL in a nonstressed, ambulatory subject supports the diagnosis of Diabetes Mellitus. ADA recommended reference range Performed By: #### C MP, TSH3, T4F, T3F, CBC #### [facility] [address] [place] [address] [place] #### ACTH #### [facility] , Potassium [Moles/Vol] 4.2 mmol/L Normal 3.5-5.1 [facility] Comment on above: Performed By: #### C MP, TSH3, T4F, T3F, CBC #### [facility] [address] [place] [address] [place] #### ACTH #### [facility] , Protein [Mass/Vol] 6.1 g/dL Low 6.4-8.9 [facility] Comment on above: Performed By: #### C MP, TSH3, T4F, T3F, CBC #### [facility] [address] [place] [address] [place] #### ACTH #### [facility] , Sodium [Moles/Vol] 136 mmol/L Normal 136-145 [facility] Comment on above: Performed By: #### C MP, TSH3, T4F, T3F, CBC #### [facility] [address] [place] [address] [place] #### ACTH #### [facility] , Urea nitrogen [Mass/Vol] 10 mg/dL Normal 7-25 [facility] Comment on above: Performed By: #### C MP, TSH3, T4F, T3F, CBC #### [facility] [address] [place] [address] [place] #### ACTH #### [facility] , Creatinine [Mass/volume] in Serum or PlasmaOrdered By: Amanda Rosario on 05-20-2023 Creatinine [Mass/Vol] 0.56 mg/dL 0.60-1.20 [facility] Eosinophils Auto (Bld) [#/Vo l]Ordered By: Amanda Rosario on 05-20-2023 Eosinophils (Bld) [#/Vol] 0.1 10*3/uL 0.0-0.45 [facility] Eosinophils/100 WBC Auto (Bl d)Ordered By: Amanda Rosario on 05-20-2023 Eosinophils/100 WBC (Bld) 0.6 % . [facility] Erythrocyte distribution wid th Auto (RBC) [Ratio]Ordered By: Amanda Rosario on 05-20-2023 Erythrocyte distribution width (RBC) [Ratio] 13.1 % 11.9-15.3 [facility] Free T4 (Free Thyroxine)on 0 05-20-2023 Free T4 [Mass/Vol] 0.86 ng/dL Normal 0.61-1.12 [facility] Comment on above: Performed By: #### C MP, TSH3, T4F, T3F, CBC #### [facility] [address] [place] [address] [place] #### ACTH #### [facility] , Globulin Calc (S) [Mass/Vol] Ordered By: Amanda Rosario on 05-20-2023 Globulin (S) [Mass/Vol] 2.3 g/dL [facility] Glucose [Mass/volume] in Ser um or PlasmaOrdered By: Amanda Rosario on 05-20-2023 Glucose [Mass/Vol] 72 mg/dL 70-100 [facility] Comment on above: ADA recommended refe rence rangeRandom Glucose Reference Range is dependent on time and content of last meal. Glucose of more than 200 mg/dL in a nonstressed, ambulatory subject supports the diagnosis of Diabetes Mellitus. Hematocrit Auto (Bld) [Volum e fraction]Ordered By: Amanda Rosario on 05-20-2023 Hematocrit (Bld) [Volume fraction] 34.7 % 34.0-46.4 [facility] Hemoglobin [Mass/volume] in BloodOrdered By: Amanda Rosario on 05-20-2023 Hemoglobin (Bld) [Mass/Vol] 12.0 g/dL 11.8-15.4 [facility] Leukocytes [#/volume] correc yanira for nucleated erythrocytes in Blood by Automated counOrdered By: Amanda Rosario on 05-20-2023 WBC corrected for nucl RBC Auto (Bld) [#/Vol] 10.3 10*3/uL 3.8-11.6 [facility] Lymphocytes Auto (Bld) [#/Vo l]Ordered By: Amanda Rosario on 05-20-2023 Lymphocytes (Bld) [#/Vol] 1.3 10*3/uL 1.00-4.8 [facility] Lymphocytes/100 WBC Auto (Bl d)Ordered By: Amanda Rosario on 05-20-2023 Lymphocytes/100 WBC (Bld) 12.8 % . [facility] MCH Auto (RBC) [Entitic mass ]Ordered By: Amanda Rosario on 05-20-2023 MCH (RBC) [Entitic mass] 31.5 pg 24.7-34.3 [facility] MCHC Auto (RBC) [Mass/Vol]Or dered By: Amanda Rosario on 05-20-2023 MCHC (RBC) [Mass/Vol] 34.6 g/dL 32.0-35.0 [facility] MCV Auto (RBC) [Entitic vol] Ordered By: Amanda Rosario on 05-20-2023 MCV (RBC) [Entitic vol] 91.1 fL 80-100 [facility] Monocytes Auto (Bld) [#/Vol] Ordered By: Amanda Rosario on 05-20-2023 Monocytes (Bld) [#/Vol] 0.7 10*3/uL 0.0-0.8 [facility] Monocytes/100 WBC Auto (Bld) Ordered By: Amanda Rosario on 05-20-2023 Monocytes/100 WBC (Bld) 6.4 % . [facility] Neutrophils Auto (Bld) [#/Vo l]Ordered By: Amanda Rosario on 05-20-2023 Neutrophils (Bld) [#/Vol] 8.2 10*3/uL 1.8-7.7 [facility] Neutrophils/100 WBC Auto (Bl d)Ordered By: Amanda Rosario on 05-20-2023 Neutrophils/100 WBC (Bld) 79.8 % . [facility] No Panel InformationOrdered By: Amanda Rosario on 05-20-2023 Adrenocorticotropic Hormone 10.8 pg/mL 7.2-63.3 [facility] Comment on above: ACTH reference inter cruz for samples collected between 7 and10 AM.Performed at: [facility] [address] [id number] Director: Sai Smalls PhD, Phone: [phone] Estimated GFR (CKD-EPI) > 60.0 mL/Min [facility] Creatinine Clearance (Chem 154.92 [facility] Nucleated erythrocytes [Pres ence] in Blood by Automated countOrdered By: Amanda Rosario on 05-20-2023 Nucleated RBC Auto Ql (Bld) 0.2 /100{WBC} 0-0.5 [facility] Platelet mean volume Auto (B ld) [Entitic vol]Ordered By: Amanda Rosario on 05-20-2023 Platelet mean volume (Bld) [Entitic vol] 7.4 fL 6.3-10.7 [facility] Platelets Auto (Bld) [#/Vol] Ordered By: Amanda Rosario on 05-20-2023 Platelets (Bld) [#/Vol] 256 10*3/uL 150-450 [facility] Potassium [Moles/volume] in Serum or PlasmaOrdered By: Amanda Rosario on 05-20-2023 Potassium [Moles/Vol] 4.2 mmol/L 3.5-5.1 [facility] Protein [Mass/volume] in Ser um or PlasmaOrdered By: Amanda Rosario on 05-20-2023 Protein [Mass/Vol] 6.1 g/dL 6.4-8.9 [facility] RBC Auto (Bld) [#/Vol]Ordere d By: Amanda Rosario on 05-20-2023 RBC (Bld) [#/Vol] 3.81 10*6/uL 3.60-5.00 [facility] Serum or plasma albumin/glob ulin mass ratioOrdered By: Amanda Rosario on 05-20-2023 Albumin/Globulin [Mass ratio] 1.7 {ratio} [facility] Serum or plasma anion gap de terminationOrdered By: Amanda Rosario on 05-20-2023 Anion gap [Moles/Vol] 10.1 mmol/L 6.0-15.0 [facility] Sodium [Moles/volume] in Ser um or PlasmaOrdered By: Amanda Rosario on 05-20-2023 Sodium [Moles/Vol] 136 mmol/L 136-145 [facility] Thyroid Stimulating Hormoneo n 05-20-2023 TSH Qn 1.31 m[IU]/L Normal 0.45-5.33 [facility] Comment on above: Result Comment: PERF ORMED BY: [place] [address] PATHOLOGIST EXTRUDER OPERATOR HELPER RUSS DAVIS M.D. Performed By: #### C MP, TSH3, T4F, T3F, CBC #### [facility] [address] [place] [address] [place] #### ACTH #### [facility] , Thyrotropin [Units/volume] i n Serum or PlasmaOrdered By: Amanda Rosario on 05-20-2023 TSH Qn 1.31 m[IU]/L 0.45-5.33 [facility] Thyroxine (T4) free [Mass/vo lume] in Serum or PlasmaOrdered By: Amanda Rosario on 05-20-2023 Free T4 [Mass/Vol] 0.86 ng/dL 0.61-1.12 [facility] Triiodothyronine (T3) Freeon 05-20-2023 Triiodothyronine (T3) Free 2.91 pg/mL Normal 2.50-3.90 [facility] Comment on above: Result Comment: PERF ORMED BY: [place] [address] PATHOLOGIST EXTRUDER OPERATOR HELPER RUSS DAVIS M.D. Performed By: #### C MP, TSH3, T4F, T3F, CBC #### [facility] [address] [place] [address] [place] #### ACTH #### [facility] , Triiodothyronine (T3) Free [ Mass/volume] in Serum or PlasmaOrdered By: Amanda Rosario on 05-20-2023 Free T3 [Mass/Vol] 2.91 pg/mL 2.50-3.90 [facility] Urea nitrogen [Mass/volume] in Serum or PlasmaOrdered By: Amanda Rosario on 05-20-2023 Urea nitrogen [Mass/Vol] 10 mg/dL 7-25 [facility] WBC Auto (Bld) [#/Vol]Ordere d By: Amanda Rosario on 05-20-2023 WBC (Bld) [#/Vol] 10.3 10*3/uL 3.8-11.6 [facility] HEP B SURFACE ANTIGEN SCREEN on 04-08-2023 HBsAg Screen Negative Normal Negative [facility] Comment on above: Performed By: #### T SH #### [facility] [address] [address] [address] Beth Pineda HEPATITIS C VIRUS AB W/ REFL EX QUANTon 04-08-2023 HCV AB Non-Reactive Normal Non Reactive [facility] Comment on above: Performed By: #### H CVPCRR #### [facility] [id number] Beth Pineda HIV 1 AND 2 WITH REFLEXon HIV Screen 4th Generation wRfx Non-Reactive Normal Non Reactive [facility] Comment on above: Result Comment: HIV Negative HIV-1/HIV-2 antibodies and HIV-1 p24 antigen were NOT detected. There is no laboratory evidence of HIV infection. Performed By: #### H IV12 #### [facility] [address] [place] [address] Dr. Beth Pineda RPR QUANTon 04-08-2023 Rapid Plasma Reagin, Quant Non-Reactive Normal NonRea<1:1 [facility] Comment on above: Result Comment: Anup esteves Note: This test does not meet current guidelines for screening and diagnosis of syphilis. This test is intended for following treatment response in patients being treated for syphilis infection. To screen for syphilis infection, a reflex cascade that includes both RPR and a treponema-specific assay should be utilized, such as Treponema pallidum (Syphilis) Screening [place] (098321) or Rapid Plasma Reagin (RPR) Test With Reflex to Quantitative RPR and Confirmatory Treponema pallidum Antibodies (466297). Performed By: #### R PRQ #### [facility] [address] [place] [address] Dr. Beth Pineda RUBELLA AB IGGon 04-08-2023 Rubella Antibodies, IgG 1.35 index Normal Immu ne >0.99 [facility] Comment on above: Result Comment: Non- immune <0.90 Equivocal 0.90 - 0.99 Immune >0.99 Performed By: #### R UBIGG #### [facility] [address] [place] [address] Dr. Beth Pineda BOX TEST SENT OUTon 04-07-20 SENT TO REF LAB 04/07/23 Normal [facility] Comment on above: Performed By: #### B OX #### [facility] [address] [place] [address] Dr. Beth Pineda CBC AUTO DIFFon 04-07-2023 BASO # 0.1 103/ul Normal 0.0-0.1 [facility] Comment on above: Performed By: #### C BC #### [facility] [address] [place] [address] Dr. Beth Pineda Basophils/100 WBC (Bld) 0.7 % Normal 0.2-2.0 [facility] Comment on above: Performed By: #### C BC #### [facility] [address] [address] [address] Beth Pineda EO # 0.1 103/ul Normal 0.0-0.7 [facility] Comment on above: Performed By: #### C BC #### [facility] [address] [place] [address] Dr. Beth Pineda Eosinophils/100 WBC (Bld) 1.1 % Normal 0.9-7.0 [facility] Comment on above: Performed By: #### C BC #### [facility] [address] [place] [address] Dr. Beth Pineda Erythrocyte distribution width (RBC) [Ratio] 12.5 % Normal 11.0-15.0 [facility] Comment on above: Performed By: #### C BC #### [facility] [address] [place] [address] Dr. Beth Pineda Hematocrit (Bld) [Volume fraction] 37.8 % Normal 36.0-48.0 [facility] Comment on above: Performed By: #### C BC #### [facility] [address] [place] [address] Dr. Beth Pineda Hemoglobin (Bld) [Mass/Vol] 13.1 g/dL Normal 12.0-16.0 [facility] Comment on above: Performed By: #### C BC #### [facility] [address] [place] [address] Dr. Beth Pineda IG # 0.02 10e3/ul Normal 0.00-0.03 [facility] Comment on above: Performed By: #### C BC #### [facility] [address] [place] [address] Dr. Beth Pineda IG % 0.3 % Normal 0.0-0.5 [facility] Comment on above: Performed By: #### C BC #### [facility] [address] [place] [address] Dr. Beth Pineda LYMPH # 1.5 103/ul Normal 1.2-3.8 [facility] Comment on above: Performed By: #### C BC #### [facility] [address] [place] [address] Dr. Beth Pineda Lymphocytes/100 WBC (Bld) 19.9 % Critically low 20.5-60.0 [facility] Comment on above: Performed By: #### C BC #### [facility] [address] [place] [address] Dr. Beth Pineda MANUAL DIFF REQ NO Normal [facility] Comment on above: Performed By: #### C BC #### [facility] [address] [place] [address] Dr. Beth Pineda MCH (RBC) [Entitic mass] 31.3 pg Normal 26.7-34.0 [facility] Comment on above: Performed By: #### C BC #### [facility] [address] [place] [address] Dr. Beth Pineda MCHC (RBC) [Mass/Vol] 34.7 g/dL Normal 29.9-35.2 [facility] Comment on above: Performed By: #### C BC #### [facility] [address] [place] [address] Dr. Beth Pineda MCV (RBC) [Entitic vol] 90.2 fL Normal 81.0-99.0 [facility] Comment on above: Performed By: #### C BC #### [facility] [address] [place] [address] Dr. Beth Pineda MONO # 0.5 103/ul Normal 0.3-0.8 [facility] Comment on above: Performed By: #### C BC #### [facility] [address] [place] [address] Dr. Beth Pineda Monocytes/100 WBC (Bld) 6.1 % Normal 1.7-12.0 [facility] Comment on above: Performed By: #### C BC #### [facility] [address] [place] [address] Dr. Beth Pineda NEUT # 5.4 103/ul Normal 1.4-6.5 [facility] Comment on above: Performed By: #### C BC #### [facility] [address] [address] [address] Beth Pineda Neutrophils/100 WBC (Bld) 71.9 % Normal 43.0-75.0 [facility] Comment on above: Performed By: #### C BC #### [facility] [address] [address] [address] Beth Pineda Platelet mean volume (Bld) [Entitic vol] 8.9 fL Critically low 9.5-13.5 [facility] Comment on above: Performed By: #### C BC #### [facility] [address] [place] [address] Dr. Beth Pineda PLT 272 103/ul Normal 150-450 [facility] Comment on above: Performed By: #### C BC #### [facility] [address] [place] [address] Dr. Beth Pineda RBC 4.19 106/ul Critically low 4.20-5.40 [facility] Comment on above: Performed By: #### C BC #### [facility] [address] [place] [address] Dr. Beth Pineda WBC 7.5 103/ul Normal 4.0-11.0 [facility] Comment on above: Performed By: #### C BC #### [facility] [address] [place] [address] Dr. Beth Pineda CULTURE URINEon 04-07-2023 CULTURE URINE Culture Observations : NO GROWTH. Normal [facility] Comment on above: Performed By: #### T SH #### [facility] [address] [place] [address] Dr. Beth Pineda GLYCOHEMOGLOBIN A1Con 2022 ADA RECOMMENDATION SEE BELOW Normal [facility] Comment on above: Result Comment: ADA RECOMMENDED LIMIT 4.0 - 6.0 ADA THERAPEUTIC TARGET < 7.0 ACTION SUGGESTED > 7.0 Performed By: #### A 1C #### [facility] [address] [place] [address] Dr. Beth Pineda Glucose [Mass/Vol] 82 mg/dL Normal [facility] Comment on above: Performed By: #### A 1C #### [facility] [address] [address] [address] Beth Pineda HbA1c (Bld) [Mass fraction] 4.5 % Normal 4.5-6.2 [facility] Comment on above: Performed By: #### A 1C #### [facility] [address] [address] [address] Beth Pineda TSHon 04-07-2023 TSH 2.191 uIU/mL Normal 0.358-3.740 [facility] Comment on above: Performed By: #### T SH #### [facility] [address] [address] [address] Beth Pineda TYPE AND SCREENon 04-07-2023 TYPE AND SCREEN Negative Normal [facility] Comment on above: Performed By: #### T SH #### [facility] [address] [address] [address] Beth Pineda US PREG TVon 03-13-2023 [...] MORE [place] Date: 2023-03-13 09:37 [address] [facility] PREG QUANT HCGon 02-27-2023 HCG QUANT 09872 mIU/mL Normal [facility] Comment on above: Performed By: #### A 1C #### [facility] [address] [address] [address] Beth Pineda HCG RANGE SEE BELOW Normal [facility] Comment on above: Result Comment: 5-50 0.2-1 WEEK 50-500 1-2 WEEKS 100-5,000 2-3 WEEKS 500-10,000 3-4 WEEKS 1,000-50,000 4-5 WEEKS 10,000-100,000 5-6 WEEKS 15,000-200,000 6-8 WEEKS 10,000-100,000 2-3 MONTHS Performed By: #### A 1C #### [facility] [address] [place] [address] Dr. Beth Pineda PREG QUANT HCGon 02-11-2023 HCG QUANT 57 mIU/mL Normal [facility] Comment on above: Performed By: #### A 1C #### [facility] [address] [place] [address] Dr. Beth Pineda HCG RANGE SEE BELOW [facility] Comment on above: Result Comment: 5-50 0.2-1 WEEK 50-500 1-2 WEEKS 100-5,000 2-3 WEEKS 500-10,000 3-4 WEEKS 1,000-50,000 4-5 WEEKS 10,000-100,000 5-6 WEEKS 15,000-200,000 6-8 WEEKS 10,000-100,000 2-3 MONTHS Performed By: #### A 1C #### [facility] [address] [place] [address] Dr. Beth Pineda PREG QUANT HCGon 02-09-2023 HCG QUANT 14 mIU/mL Normal [facility] Comment on above: Performed By: #### P REGQNT #### [facility] [address] [place] [address] Dr. Beth Pineda HCG RANGE SEE BELOW [facility] Comment on above: Result Comment: 5-50 0.2-1 WEEK 50-500 1-2 WEEKS 100-5,000 2-3 WEEKS 500-10,000 3-4 WEEKS 1,000-50,000 4-5 WEEKS 10,000-100,000 5-6 WEEKS 15,000-200,000 6-8 WEEKS 10,000-100,000 2-3 MONTHS Performed By: #### P REGQNT #### [facility] [address] [place] [address] Dr. Beth Pineda ANTI-MULLERIAN HORMONEon Anti-Mullerian Hormone (AMH) 12.5 ng/mL Normal [facility] Comment on above: Result Comment: For assays employing antibodies, the possibility exists for interference by heterophile antibodies in the samples.1 1.Tanja Rendon Interferences in Immunoassays - still a threat. Clin. Chem. 2000; 46: 4753-1124. This test was developed and its performance characteristics determined by [employer]. It has not been cleared or approved by the Food and Drug Administration. Reference Range: Females 20 - 25y: 1.23 - 11.51 Median 4.70 AMH concentrations of >= 1.06 ng/mL is correlated with a better response to ovarian stimulation, produced more retrievable oocytes and higher odds of live according to Erikaer et al. Fertility and Sterility. 2010: 94:2035-1165. The current AMH test method correlates with [...] tumor. Performed By: #### T SH #### [facility] [address] [address] [address] Beth Pineda PAP ACOG PANEL 2: 21 to 29on 01-20-2023 . . [facility] Comment on above: Performed By: #### T SH #### [facility] [address] [address] [address] Beth Pineda Age Gdln ACOG Testing - [facility] Comment on above: Performed By: #### T SH #### [facility] [address] [address] [address] Beth Pineda DIAGNOSIS: Comment [facility] Comment on above: Result Comment: NEGA TIVE FOR INTRAEPITHELIAL LESION OR MALIGNANCY. Performed By: #### T SH #### [facility] [address] [address] [address] Beth Pineda Methodology: Comment [facility] Comment on above: Result Comment: This liquid based ThinPrep(R) pap test was screened with the use of an image guided system. Performed By: #### T SH #### [facility] [address] [place] [address] Dr. Beth Pineda Note: Comment Normal [facility] Comment on above: Result Comment: The Pap smear is a screening test designed to aid in the detection of premalignant and malignant conditions of the uterine cervix. It is not a diagnostic procedure and should not be used as the sole means of detecting cervical cancer. Both false-positive and false-negative reports do occur. . Performed By: #### T SH #### [facility] [address] [place] [address] Dr. Beth Pineda Performed by: Comment Normal [facility] Comment on above: Result Comment: Pato Gonzalez, Brim Stretching Machine Operator (ASCP) Performed By: #### T SH #### [facility] [address] [place] [address] Dr. Beth Pineda Reflex Criteria: Comment Normal [facility] Comment on above: Result Comment: The HPV DNA reflex criteria were not met with this specimen result therefore, no HPV testing was performed. . Performed By: #### T SH #### [facility] [address] [place] [address] Dr. Beth Pineda Specimen adequacy: Comment Normal [facility] Comment on above: Result Comment: Sati sfactory for evaluation. Endocervical and/or squamous metaplastic cells (endocervical component) are present. Performed By: #### T SH #### [facility] [address] [place] [address] Dr. Beth Pineda Albumin [Mass/volume] in Ser um or PlasmaOrdered By: Amanda Rosario on 01-09-2023 Albumin [Mass/Vol] 4.3 g/dL 3.2-5.5 [facility] Alkaline phosphatase [Enzyma tic activity/volume] in Serum or PlasmaOrdered By: Amanda Rosario on 01-09-2023 ALP [Catalytic activity/Vol] 54 U/L 32-92 [facility] Aspartate aminotransferase [ Enzymatic activity/volume] in Serum or PlasmaOrdered By: Amanda Rosario on 01-09-2023 AST [Catalytic activity/Vol] 21 U/L 10-42 [facility] Basophils Auto (Bld) [#/Vol] Ordered By: Amanda Rosario on 01-09-2023 Basophils (Bld) [#/Vol] 0.0 10*3/uL 0.0-0.2 [facility] Basophils/100 WBC Auto (Bld) Ordered By: Amanda Rosario on 01-09-2023 Basophils/100 WBC (Bld) 0.7 % . [facility] Bilirubin.total [Mass/volume ] in Serum or PlasmaOrdered By: Amanda Rosario on 01-09-2023 Bilirubin [Mass/Vol] 0.7 mg/dL 0.3-1.[address] [facility] [address] biopsyOrdered By: Amanda Nino se on 01-09-2023 Transferrin [Mass/Vol] 265 mg/dL 180-380 [facility] Calcium [Mass/volume] in Ser um or PlasmaOrdered By: Amanda Rosario on 01-09-2023 Calcium [Mass/Vol] 9.6 mg/dL 8.2-10.2 [facility] Carbon dioxide, total [Moles /volume] in Serum or PlasmaOrdered By: Amanda Rosario on 01-09-2023 CO2 [Moles/Vol] 27.2 mmol/L 22.0-30.0 [facility] Chloride [Moles/volume] in S [place] or PlasmaOrdered By: Amanda Rosario on 01-09-2023 Chloride [Moles/Vol] 104 mmol/L 95-114 [facility] Complete Blood Count Auto Di ffon 01-09-2023 Basophils (Bld) [#/Vol] 0.0 10*3/uL Normal 0.0-0.2 [facility] Comment on above: Result Comment: PERF ORMED BY: [facility] [address] [place] [address] PATHOLOGIST EXTRUDER OPERATOR HELPER RUSS DAVIS M.D. Performed By: #### C MP, FE and TIBC, CBC, EFRAIN ####[facility] [id number] [place] [address] [facility] Basophils/100 WBC (Bld) 0.7 % Normal . [facility] Comment on above: Performed By: #### C MP, FE and TIBC, CBC, EFRAIN ####[address] Eosinophils (Bld) [#/Vol] 0.1 10*3/uL Normal 0.0-0.45 [facility] Comment on above: Performed By: #### C MP, FE and TIBC, CBC, EFRAIN ####[address] Eosinophils/100 WBC (Bld) 1.3 % Normal . [facility] Comment on above: Performed By: #### C MP, FE and TIBC, CBC, EFRAIN ####[address] Erythrocyte distribution width (RBC) [Ratio] 13.1 % Normal 11.9-15.3 [facility] Comment on above: Performed By: #### C MP, FE and TIBC, CBC, EFRAIN ####[address] Hematocrit (Bld) [Volume fraction] 39.5 % Normal 34.0-46.4 [facility] Comment on above: Performed By: #### C MP, FE and TIBC, CBC, EFRAIN ####[address] Hemoglobin (Bld) [Mass/Vol] 13.1 g/dL Normal 11.8-15.4 [facility] Comment on above: Performed By: #### C MP, FE and TIBC, CBC, EFRAIN ####[address] Lymphocytes (Bld) [#/Vol] 1.0 10*3/uL Normal 1.00-4.8 [facility] Comment on above: Performed By: #### C MP, FE and TIBC, CBC, EFRAIN ####[address] Lymphocytes/100 WBC (Bld) 20.2 % Normal . [facility] Comment on above: Performed By: #### C MP, FE and TIBC, CBC, EFRAIN ####[address] MCH (RBC) [Entitic mass] 30.0 pg Normal 24.7-34.3 [facility] Comment on above: Performed By: #### C MP, FE and TIBC, CBC, EFRAIN ####[address] MCV (RBC) [Entitic vol] 90.3 fL Normal 80-100 [facility] Comment on above: Performed By: #### C MP, FE and TIBC, CBC, EFRAIN ####[address] Mean Corpuscular HGB Conc 33.2 g/dL Normal 32.0-35.0 [facility] Comment on above: Performed By: #### C MP, FE and TIBC, CBC, EFRAIN ####[address] Monocytes (Bld) [#/Vol] 0.5 10*3/uL Normal 0.0-0.8 [facility] Comment on above: Performed By: #### C MP, FE and TIBC, CBC, EFRAIN ####[address] Monocytes/100 WBC (Bld) 10.5 % Normal . [facility] Comment on above: Performed By: #### C MP, FE and TIBC, CBC, EFRAIN ####[address] Neutrophils (Bld) [#/Vol] 3.2 10*3/uL Normal 1.8-7.7 [facility] Comment on above: Performed By: #### C MP, FE and TIBC, CBC, EFRAIN ####[address] Neutrophils/100 WBC (Bld) 67.3 % Normal . [facility] Comment on above: Performed By: #### C MP, FE and TIBC, CBC, EFRAIN ####[address] NRBC% 0.1 /100{WBC} Normal 0-0.5 [facility] Comment on above: Performed By: #### C MP, FE and TIBC, CBC, EFRAIN ####[address] Platelet mean volume (Bld) [Entitic vol] 7.9 fL Normal 6.3-10.7 [facility] Comment on above: Performed By: #### C MP, FE and TIBC, CBC, EFRAIN ####[address] Platelets (Bld) [#/Vol] 290 10*3/uL Normal 150-450 [facility] Comment on above: Performed By: #### C MP, FE and TIBC, CBC, EFRAIN ####[address] RBC (Bld) [#/Vol] 4.37 10*6/uL Normal 3.60-5.00 [facility] Comment on above: Performed By: #### C MP, FE and TIBC, CBC, EFRAIN ####[address] WBC (Bld) [#/Vol] 4.8 10*3/uL Normal 3.8-11.6 [facility] Comment on above: Performed By: #### C MP, FE and TIBC, CBC, EFRAIN ####[address] Comprehensive Metabolic Pane dustin 01-09-2023 Albumin [Mass/Vol] 4.3 g/dL Normal 3.2-5.5 [facility] Comment on above: Performed By: #### C MP, FE and TIBC, CBC, EFRAIN ####[address] Albumin/Globulin [Mass ratio] 1.9 {ratio} Normal [facility] Comment on above: Performed By: #### C MP, FE and TIBC, CBC, EFRAIN ####[place] [id number] [facility] ALP [Catalytic activity/Vol] 54 U/L Normal 32-92 [facility] Comment on above: Performed By: #### C MP, FE and TIBC, CBC, EFRAIN ####[place] [id number] [facility] ALT [Catalytic activity/Vol] 20 U/L Normal 10-60 [facility] Comment on above: Performed By: #### C MP, FE and TIBC, CBC, EFRAIN ####[place] [id number] [facility] Anion gap [Moles/Vol] 10.2 mmol/L Normal 6.0-15.0 [facility] Comment on above: Performed By: #### C MP, FE and TIBC, CBC, EFRAIN ####[place] [id number] [facility] AST [Catalytic activity/Vol] 21 U/L Normal 10-42 [facility] Comment on above: Performed By: #### C MP, FE and TIBC, CBC, EFRAIN ####[place] [id number] [facility] Bilirubin [Mass/Vol] 0.7 mg/dL Normal 0.3-1.2 [facility] Comment on above: Performed By: #### C MP, FE and TIBC, CBC, EFRAIN ####[place] [id number] [facility] Calcium [Mass/Vol] 9.6 mg/dL Normal 8.2-10.2 [facility] Comment on above: Performed By: #### C MP, FE and TIBC, CBC, EFRAIN ####[place] [id number] [facility] Chloride [Moles/Vol] 104 mmol/L Normal 95-114 [facility] Comment on above: Performed By: #### C MP, FE and TIBC, CBC, EFRAIN ####[place] [id number] [facility] CO2 [Moles/Vol] 27.2 mmol/L Normal 22.0-30.0 [facility] Comment on above: Performed By: #### C MP, FE and TIBC, CBC, EFRAIN ####[address] Creatinine [Mass/Vol] 0.72 mg/dL Normal 0.44-1.03 [facility] Comment on above: Performed By: #### C MP, FE and TIBC, CBC, EFRAIN ####[address] Creatinine Clr Calc Pharmacy 120.49 [facility] Comment on above: Performed By: #### C MP, FE and TIBC, CBC, EFRAIN ####[address] Estimated GFR ( Parul > 60 [facility] Comment on above: Result Comment: GFR estimated reference range: According to KDOQI guidelines, <60 ml/min/1.73m2 is sufficient to diagnose a patient with chronic kidney disease. Performed By: #### C MP, FE and TIBC, CBC, EFRAIN ####[address] Estimated GFR (Non- Am > 60 [facility] Comment on above: Performed By: #### C MP, FE and TIBC, CBC, EFRAIN ####[address] Globulin (S) [Mass/Vol] 2.3 g/dL Normal [facility] Comment on above: Performed By: #### C MP, FE and TIBC, CBC, EFRAIN ####[address] Glucose [Mass/Vol] 80 mg/dL Normal 70-100 [facility] Comment on above: Result Comment: [place] Glucose Reference Range is dependent on time and content of last meal. Glucose of more than 200 mg/dL in a nonstressed, ambulatory subject supports the diagnosis of Diabetes Mellitus. ADA recommended reference range Performed By: #### C MP, FE and TIBC, CBC, EFRAIN ####[facility] Potassium [Moles/Vol] 4.4 mmol/L Normal 3.5-5.1 [facility] Comment on above: Performed By: #### C MP, FE and TIBC, CBC, EFRAIN ####[place] [id number] [facility] Protein [Mass/Vol] 6.6 g/dL Normal 6.1-7.9 [facility] Comment on above: Performed By: #### C MP, FE and TIBC, CBC, EFRAIN ####[address] Sodium [Moles/Vol] 137 mmol/L Normal 136-146 [facility] Comment on above: Performed By: #### C MP, FE and TIBC, CBC, EFRAIN ####[address] Urea nitrogen [Mass/Vol] 13 mg/dL Normal 9-23 [facility] Comment on above: Performed By: #### C MP, FE and TIBC, CBC, EFRAIN ####[address] Creatinine and Glomerular fi ltration rate.predicted panel (S/P/Bld)Ordered By: Amanda Rosario on 01-09-2023 Creatinine [Mass/Vol] 0.72 mg/dL 0.44-1.03 [facility] Eosinophils Auto (Bld) [#/Vo l]Ordered By: Amanda Rosario on 01-09-2023 Eosinophils (Bld) [#/Vol] 0.1 10*3/uL 0.0-0.45 [facility] Eosinophils/100 WBC Auto (Bl d)Ordered By: Amanda Rosario on 01-09-2023 Eosinophils/100 WBC (Bld) 1.3 % . [facility] Erythrocyte distribution wid th Auto (RBC) [Ratio]Ordered By: Amanda Rosario on 01-09-2023 Erythrocyte distribution width (RBC) [Ratio] 13.1 % 11.9-15.3 [facility] Estimated glomerular filtrat ion rate (GFR) non- AmericanOrdered By: Amanda Rosario on 01-09-2023 GFR/1.73 sq M.predicted among non-blacks MDRD (S/P/Bld) [Vol rate/Area] > 60 mL/Min [facility] Ferritinon 01-09-2023 Ferritin [Mass/Vol] 13.4 ng/mL Normal 11-306.8 [facility] Comment on above: Result Comment: PERF ORMED BY: [facility] [address] [place] [id number] PATHOLOGIST EXTRUDER OPERATOR HELPER RUSS DAVIS M.D. Performed By: #### C MP, FE and TIBC, CBC, EFRAIN ####[facility] [id number] [place] [id number] [facility] Ferritin [Mass/volume] in Se rum or PlasmaOrdered By: Amanda Rosario on 01-09-2023 Ferritin [Mass/Vol] 13.4 ng/mL 11-306.8 [facility] Globulin Calc (S) [Mass/Vol] Ordered By: Amanda Rosario on 01-09-2023 Globulin (S) [Mass/Vol] 2.3 g/dL F [facility] Glucose [Mass/volume] in Ser um or PlasmaOrdered By: Amanda Rosario on 01-09-2023 Glucose [Mass/Vol] 80 mg/dL 70-100 [facility] Comment on above: ADA recommended refe rence rangeRandom Glucose Reference Range is dependent on time and content of last meal. Glucose of more than 200 mg/dL in a nonstressed, ambulatory subject supports the diagnosis of Diabetes Mellitus. Hematocrit Auto (Bld) [Volum e fraction]Ordered By: Amanda Rosario on 01-09-2023 Hematocrit (Bld) [Volume fraction] 39.5 % 34.0-46.4 [facility] Hemoglobin [Mass/volume] in BloodOrdered By: Amanda Rosario on 01-09-2023 Hemoglobin (Bld) [Mass/Vol] 13.1 g/dL 11.8-15.4 [facility] Iron [Mass/volume] in Serum or PlasmaOrdered By: Amanda Rosario on 01-09-2023 Iron [Mass/Vol] 75 ug/dL 40-150 [facility] Iron and TIBC Profileon 12-24 % Iron Saturation 20.2 % Normal 20-[address] [facility] Comment on above: Performed By: #### C MP, FE and TIBC, CBC, EFRAIN ####[facility] [id number] [place] [address] [facility] Iron [Mass/Vol] 75 ug/dL Normal 40-150 [facility] Comment on above: Performed By: #### C MP, FE and TIBC, CBC, EFRAIN ####[facility] [id number] [place] [address] [facility] Total Iron Binding Capacity 371 ug/dL Normal 255-450 [facility] Comment on above: Performed By: #### C MP, FE and TIBC, CBC, EFRAIN ####[facility] [id number] [place] [id number] [facility] Transferrin [Mass/Vol] 265 mg/dL Normal 180-380 [facility] Comment on above: Performed By: #### C MP, FE and TIBC, CBC, EFRAIN ####[facility] [id number] [place] [id number] [facility] Iron binding capacity [Mass/ volume] in Serum or PlasmaOrdered By: Amanda Rosario on 01-09-2023 Iron binding capacity [Mass/Vol] 371 ug/dL 255-450 [facility] Iron saturation [Mass Fracti on] in Serum or PlasmaOrdered By: Amanda Rosario on 01-09-2023 Iron saturation [Mass fraction] 20.2 % 20-50 [facility] LDH Lactate Dehydrogenaseon 01-09-2023 LDH Lactate Dehydrogenase 145 U/L Normal 45-190 [facility] Comment on above: Result Comment: PERF ORMED BY: [facility] [address] [place] [address] PATHOLOGIST EXTRUDER OPERATOR HELPER RUSS DAVIS M.D. Performed By: #### L DH #### [facility] [address] Lactate dehydrogenase measur ement (enzymatic activity/volume)Ordered By: Ale Malone on 02-17-2023 LDH (Unsp spec) [Catalytic activity/Vol] 145 U/L 45-190 [facility] Leukocytes [#/volume] correc yanira for nucleated erythrocytes in Blood by Automated counOrdered By: Amanda Rosario on 01-09-2023 WBC corrected for nucl RBC Auto (Bld) [#/Vol] 4.8 10*3/uL 3.8-11.6 [facility] Lymphocytes Auto (Bld) [#/Vo l]Ordered By: Amanda Rosario on 01-09-2023 Lymphocytes (Bld) [#/Vol] 1.0 10*3/uL 1.00-4.8 [facility] Lymphocytes/100 WBC Auto (Bl d)Ordered By: Amanda Rosario on 01-09-2023 Lymphocytes/100 WBC (Bld) 20.2 % . [facility] MCH Auto (RBC) [Entitic mass ]Ordered By: Amanda Rosario on 01-09-2023 MCH (RBC) [Entitic mass] 30.0 pg 24.7-34.3 [facility] MCHC Auto (RBC) [Mass/Vol]Or dered By: Amanda Rosario on 01-09-2023 MCHC (RBC) [Mass/Vol] 33.2 g/dL 32.0-35.0 [facility] MCV Auto (RBC) [Entitic vol] Ordered By: Amanda Rosario on 01-09-2023 MCV (RBC) [Entitic vol] 90.3 fL 80-100 F [facility] Monocytes Auto (Bld) [#/Vol] Ordered By: Amanda Rosario on 01-09-2023 Monocytes (Bld) [#/Vol] 0.5 10*3/uL 0.0-0.8 [facility] Monocytes/100 WBC Auto (Bld) Ordered By: Amanda Rosario on 01-09-2023 Monocytes/100 WBC (Bld) 10.5 % . F [facility] Neutrophils Auto (Bld) [#/Vo l]Ordered By: Amanda Rosario on 01-09-2023 Neutrophils (Bld) [#/Vol] 3.2 10*3/uL 1.8-7.7 [facility] Neutrophils/100 WBC Auto (Bl d)Ordered By: Amanda Rosario on 01-09-2023 Neutrophils/100 WBC (Bld) 67.3 % . [facility] No Panel InformationOrdered By: Amanda Rosario on 01-09-2023 Estimated GFR () > 60 mL/Min [facility] Comment on above: GFR estimated refere nce range: According to KDOQI guidelines, <60 ml/min/1.73m2 is sufficient to diagnose a patient with chronic kidney disease. Pharmacy Creatinine Clearance (Chem 120.49 [facility] Nucleated erythrocytes [Pres ence] in Blood by Automated countOrdered By: Amanda Rosario on 01-09-2023 Nucleated RBC Auto Ql (Bld) 0.1 /100{WBC} 0-0.5 [facility] Platelet mean volume Auto (B ld) [Entitic vol]Ordered By: Amanda Rosario on 01-09-2023 Platelet mean volume (Bld) [Entitic vol] 7.9 fL 6.3-10.7 [facility] Platelets Auto (Bld) [#/Vol] Ordered By: Amanda Rosario on 01-09-2023 Platelets (Bld) [#/Vol] 290 10*3/uL 150-450 [facility] Potassium [Moles/volume] in Serum or PlasmaOrdered By: Amanda Rosario on 01-09-2023 Potassium [Moles/Vol] 4.4 mmol/L 3.5-5.1 [facility] Protein [Mass/volume] in Ser um or PlasmaOrdered By: Amanda Rosario on 01-09-2023 Protein [Mass/Vol] 6.6 g/dL 6.1-7.9 [facility] RBC Auto (Bld) [#/Vol]Ordere d By: Amanda Rosario on 01-09-2023 RBC (Bld) [#/Vol] 4.37 10*6/uL 3.60-5.00 [facility] Serum or plasma alanine green otransferase measurement without P-5'-P (enzymatic activiOrdered By: Amanda Rosario on 01-09-2023 ALT No additional P-5'-P [Catalytic activity/Vol] 20 U/L 10-60 [facility] Serum or plasma albumin/glob ulin mass ratioOrdered By: Amanda Rosario on 01-09-2023 Albumin/Globulin [Mass ratio] 1.9 {ratio} [facility] Serum or plasma anion gap de terminationOrdered By: Amanda Rosario on 01-09-2023 Anion gap [Moles/Vol] 10.2 mmol/L 6.0-15.0 [facility] Sodium [Moles/volume] in Ser um or PlasmaOrdered By: Amanda Rosario on 01-09-2023 Sodium [Moles/Vol] 137 mmol/L 136-146 [facility] US extremity nonvascularon 0 01-09-[address] [place] [address] Ultrasound Report Signed Patient: Ailyn Resendiz MR#: [id number] : 1995 Acct:[id number] Age/Sex: 27 / F ADM Date: 01/09/23 Loc: Room: Type: [facility] Attending Dr: Amanda Rosario MD [...] Gilmore Jr., D.O.01/09/2023 12:04 PM Dictation Location: [place] [address] Tech: Uma Ram Transcribed By: LEOPOLDO 01/09/23 1204 Dictated By: Paresh Gilmore Jr, DO 01/09/23 1201 Signed By: 01/09/23 1204 [facility] Urea nitrogen [Mass/volume] in Serum or PlasmaOrdered By: Amanda Rosario on 01-09-2023 Urea nitrogen [Mass/Vol] 13 mg/dL 08-15 [facility] WBC Auto (Bld) [#/Vol]Ordere d By: Amanda Rosario on 01-09-2023 WBC (Bld) [#/Vol] 4.8 10*3/uL 3.8-11.6 [facility] CBC AUTO DIFFon 12-31-2022 BASO # 0.1 103/ul Normal 0.0-0.1 [facility] Comment on above: Performed By: #### C BC #### [facility] [address] [place] [address] Dr. Beth Pineda Basophils/100 WBC (Bld) 1.2 % Normal 0.2-2.0 [facility] Comment on above: Performed By: #### C BC #### [facility] [address] [place] [address] Dr. Beth Pineda EO # 0.1 103/ul Normal 0.0-0.7 [facility] Comment on above: Performed By: #### C BC #### [facility] [address] [place] [address] Dr. Beth Pineda Eosinophils/100 WBC (Bld) 2.1 % Normal 0.9-7.0 [facility] Comment on above: Performed By: #### C BC #### [facility] [address] [place] [address] Dr. Beth Pineda Erythrocyte distribution width (RBC) [Ratio] 12.9 % Normal 11.0-15.0 [facility] Comment on above: Performed By: #### C BC #### [facility] [address] [place] [address] Dr. Beth Pineda Hematocrit (Bld) [Volume fraction] 41.2 % Normal 36.0-48.0 [facility] Comment on above: Performed By: #### C BC #### [facility] [address] [place] [address] Dr. Beth Pineda Hemoglobin (Bld) [Mass/Vol] 13.5 g/dL Normal 12.0-16.0 [facility] Comment on above: Performed By: #### C BC #### [facility] [address] [place] [address] Dr. Beth Pineda IG # 0.01 10e3/ul Normal 0.00-0.03 [facility] Comment on above: Performed By: #### C BC #### [facility] [address] [place] [address] Dr. Beth Pineda IG % 0.2 % Normal 0.0-0.5 [facility] Comment on above: Performed By: #### C BC #### [facility] [address] [place] [address] Dr. Beth Pineda LYMPH # 1.6 103/ul Normal 1.2-3.8 [facility] Comment on above: Performed By: #### C BC #### [facility] [address] [place] [address] Dr. Beth Pineda Lymphocytes/100 WBC (Bld) 29.9 % Normal 20.5-60.0 [facility] Comment on above: Performed By: #### C BC #### [facility] [address] [place] [address] Dr. Beth Pineda MANUAL DIFF REQ NO Normal [facility] Comment on above: Performed By: #### C BC #### [facility] [address] [place] [address] Dr. Beth Pineda MCH (RBC) [Entitic mass] 30.3 pg Normal 26.7-34.0 [facility] Comment on above: Performed By: #### C BC #### [facility] [address] [place] [address] Dr. Beth Pineda MCHC (RBC) [Mass/Vol] 32.8 g/dL Normal 29.9-35.2 [facility] Comment on above: Performed By: #### C BC #### [facility] [address] [place] [address] Dr. Beth Pineda MCV (RBC) [Entitic vol] 92.6 fL Normal 81.0-99.0 [facility] Comment on above: Performed By: #### C BC #### [facility] [address] [place] [address] [address] Beth Pineda MONO # 0.4 103/ul Normal 0.3-0.8 [facility] Comment on above: Performed By: #### C BC #### [facility] [address] [place] [address] [address] Beth Pineda Monocytes/100 WBC (Bld) 7.9 % Normal 1.7-12.0 [facility] Comment on above: Performed By: #### C BC #### [facility] [address] [place] [address] Dr. Beth Pindea NEUT # 3.0 103/ul Normal 1.4-6.5 [facility] Comment on above: Performed By: #### C BC #### [facility] [address] [place] [address] Dr. Beth Pineda Neutrophils/100 WBC (Bld) 58.7 % Normal 43.0-75.0 [facility] Comment on above: Performed By: #### C BC #### [facility] [address] [place] [address] Dr. Beth Pineda Platelet mean volume (Bld) [Entitic vol] 9.3 fL Critically low 9.5-13.5 [facility] Comment on above: Performed By: #### C BC #### [facility] [address] [place] [address] Dr. Beth Pineda PLT 304 103/ul Normal 150-[address] [facility] Comment on above: Performed By: #### C BC #### [facility] [address] [place] [address] Dr. Beth Pineda RBC 4.45 106/ul Normal 4.20-5.40 [facility] Comment on above: Performed By: #### C BC #### [facility] [address] [place] [address] Dr. Beth Pineda WBC 5.2 103/ul Normal 4.0-11.0 [facility] Comment on above: Performed By: #### C BC #### [facility] [address] [address] [address] Beth Pineda GLYCOHEMOGLOBIN A1Con 2022 ADA RECOMMENDATION SEE BELOW Normal [facility] Comment on above: Result Comment: ADA RECOMMENDED LIMIT 4.0 - 6.0 ADA THERAPEUTIC TARGET < 7.0 ACTION SUGGESTED > 7.0 Performed By: #### T SH #### [facility] [address] [address] [address] Beth Pineda Glucose [Mass/Vol] 91 mg/dL Normal [facility] Comment on above: Performed By: #### T SH #### [facility] [address] [place] [address] Dr. Beth Pineda HbA1c (Bld) [Mass fraction] 4.8 % Normal 4.5-6.2 [facility] Comment on above: Performed By: #### T #### [facility] [address] [place] [address] Dr. Beth Pineda LIPID PROFILEon 12-31-2022 CHOL-HDL RATIO NORM SEE BELOW Normal [facility] Comment on above: Result Comment: 3.3 - 4.4 LOW RISK 4.4 - 7.1 AVERAGE RISK 7.1 - 11.0 MODERATE RISK >11.0 HIGH RISK Performed By: #### A 1C #### [facility] [address] [place] [address] Dr. Beth Pineda Cholesterol [Mass/Vol] 180 mg/dL Normal <=200 [facility] Comment on above: Performed By: #### A 1C #### [facility] [address] [place] [address] Dr. Beth Pineda Cholesterol in HDL [Mass/Vol] 106 mg/dL Critically high 40-60 [facility] Comment on above: Performed By: #### A 1C #### [facility] [address] [place] [address] Dr. Beth Pineda Cholesterol in LDL [Mass/Vol] 66.6 mg/dL Normal [facility] Comment on above: Performed By: #### A 1C #### [facility] [address] [place] [address] Dr. Beth Pineda Cholesterol.total/Elida sterol in HDL [Mass ratio] 1.7 {ratio} Normal [facility] Comment on above: Performed By: #### A 1C #### [facility] [address] [address] [address] Beth Pineda HDL NORMAL > or = 60 mg/dl - LO W CARDIOVASCULAR RISK <40 mg/dl - HIGH CARDIOVASCULAR RISK Normal [facility] Comment on above: Performed By: #### A 1C #### [facility] [address] [address] [address] Beth Pineda LDL CALC NORMAL SEE BELOW Normal [facility] Comment on above: Result Comment: <100 mg/dl OPTIMAL 100 - 129 mg/dl NEAR OR ABOVE OPTIMAL 130 - 159 mg/dl BORDERLINE HIGH 160 - 189 mg/dl HIGH >190 mg/dl VERY HIGH Performed By: #### A 1C #### [facility] [address] [place] [address] Dr. Beth Pineda Triglyceride [Mass/Vol] 37 mg/dL Normal <=150 [facility] Comment on above: Performed By: #### A 1C #### [facility] [address] [address] [address] Beth Pineda VLDL CALC 7.4 mg/dL Normal [facility] Comment on above: Performed By: #### A 1C #### [facility] [address] [place] [address] Dr. Beth Pineda PROF 14(COMP METB)on 023 Albumin [Mass/Vol] 4.3 g/dL Normal 3.4-5.0 [facility] Comment on above: Performed By: #### T SH #### [facility] [address] [place] [address] Dr. Beth Pineda Albumin/Globulin [Mass ratio] 1.3 {ratio} Normal [facility] Comment on above: Performed By: #### T SH #### [facility] [address] [address] [address] Beth Pineda ALP [Catalytic activity/Vol] 68 U/L Normal 46-116 [facility] Comment on above: Performed By: #### T SH #### [facility] [address] [address] [address] Beth Pineda ALT [Catalytic activity/Vol] 21 U/L Normal 14-59 [facility] Comment on above: Performed By: #### T SH #### [facility] [address] [address] [address] Beth Pineda Anion gap [Moles/Vol] 12.1 mmol/L Normal [facility] Comment on above: Performed By: #### T SH #### [facility] [address] [address] [address] Beth Pineda AST [Catalytic activity/Vol] 10 U/L Critically low 15-37 [facility] Comment on above: Performed By: #### T SH #### [facility] [address] [place] [address] Dr. Beth Pineda Bilirubin [Mass/Vol] 0.6 mg/dL Normal 0.2-1.0 [facility] Comment on above: Performed By: #### T SH #### [facility] [address] [place] [address] Dr. Beth Pineda Calcium [Mass/Vol] 9.2 mg/dL Normal 8.5-10.1 [facility] Comment on above: Performed By: #### T SH #### [facility] [address] [place] [address] Dr. Beth Pineda Chloride [Moles/Vol] 103 mmol/L Normal 98-[address] [facility] Comment on above: Performed By: #### T SH #### [facility] [address] [place] [address] Dr. Beth Pineda CO2 [Moles/Vol] 28.0 mmol/L Normal 21.0-32.0 [facility] Comment on above: Performed By: #### T SH #### [facility] [address] [place] [address] Dr. Beth Pineda Creatinine [Mass/Vol] 0.73 mg/dL Normal 0.55-1.02 [facility] Comment on above: Performed By: #### T SH #### [facility] [address] [place] [address] Dr. Beth Pineda EGFR-AF CZECH >60 Normal >=60 [facility] Comment on above: Performed By: #### T SH #### [facility] [address] [place] [address] Dr. Beth Pineda EGFR-NON AF CZECH >60 Normal >=60 [facility] Comment on above: Performed By: #### T SH #### [facility] [address] [place] [address] Dr. Beth Pineda Globulin (S) [Mass/Vol] 3.2 g/dL Normal [facility] Comment on above: Performed By: #### T SH #### [facility] [address] [place] [address] Dr. Beth Pineda Glucose [Mass/Vol] 89 mg/dL Normal 74-106 [facility] Comment on above: Performed By: #### T SH #### [facility] [address] [place] [address] Dr. Beth Pineda Potassium [Moles/Vol] 4.1 mmol/L Normal 3.5-5.1 [facility] Comment on above: Performed By: #### T SH #### [facility] [address] [place] [address] Dr. Beth Pineda Protein [Mass/Vol] 7.5 g/dL Normal 6.4-8.2 [facility] Comment on above: Performed By: #### T SH #### [facility] [address] [place] [address] Dr. Beth Pineda Sodium [Moles/Vol] 139 mmol/L Normal 136-145 [facility] Comment on above: Performed By: #### T SH #### [facility] [address] [place] [address] Dr. Beth Pineda Urea nitrogen [Mass/Vol] 10.0 mg/dL Normal 7.0-18.0 [facility] Comment on above: Performed By: #### T SH #### [facility] [address] [place] [address] Dr. Beth Pineda Urea nitrogen/Creatinine [Mass ratio] 13.7 mg/mg Normal [facility] Comment on above: Performed By: #### T SH #### [facility] [address] [address] [address] Beth Pineda TSHon 12-31-2022 TSH 3.121 uIU/mL Normal 0.358-3.740 [facility] Comment on above: Performed By: #### A 1C #### [facility] [address] [address] [address] Beth Pineda Albumin [Mass/volume] in Ser um or PlasmaOrdered By: Amanda Rosario on 07-08-2022 Albumin [Mass/Vol] 3.9 g/dL 3.2-5.5 [facility] Basophils Auto (Bld) [#/Vol] Ordered By: Amanda Rosario on 07-08-2022 Basophils (Bld) [#/Vol] 0.1 10*3/uL 0.0-0.2 [facility] Basophils/100 WBC Auto (Bld) Ordered By: Amanda Rosario on 07-08-2022 Basophils/100 WBC (Bld) 1.3 % . [facility] Blood hemoglobin measurement (mass/volume)Ordered By: Amanda Rosario on 07-08-2022 Hemoglobin (Bld) [Mass/Vol] 14.2 g/dL 11.8-15.4 [facility] Blood leukocytes automated c ount (number/volume)Ordered By: Amanda Rosario on 07-08-2022 WBC (Bld) [#/Vol] 5.6 10*3/uL 4.5-11.0 [facility] CT biopsyOrdered By: Amanda Nino se on 07-08-2022 Transferrin [Mass/Vol] 346 mg/dL 180-380 [facility] Creatinine and Glomerular fi ltration rate.predicted panel (S/P/Bld)Ordered By: Amanda Rosario on 07-08-2022 Creatinine [Mass/Vol] 0.78 mg/dL 0.44-1.03 [facility] Eosinophils Auto (Bld) [#/Vo l]Ordered By: Amanda Rosario on 07-08-2022 Eosinophils (Bld) [#/Vol] 0.1 10*3/uL 0.0-0.45 [facility] Eosinophils/100 WBC Auto (Bl d)Ordered By: Amanda Rosario on 07-08-2022 Eosinophils/100 WBC (Bld) 1.2 % . [facility] Erythrocyte distribution wid th Auto (RBC) [Ratio]Ordered By: Amanda Rosario on 07-08-2022 Erythrocyte distribution width (RBC) [Ratio] 12.4 % 11.9-15.3 [facility] Estimated glomerular filtrat ion rate (GFR) non- AmericanOrdered By: Amanda Rosario on 07-08-2022 GFR/1.73 sq M.predicted among non-blacks MDRD (S/P/Bld) [Vol rate/Area] > 60 mL/Min [facility] Ferritin [Mass/volume] in Se rum or PlasmaOrdered By: Amanda Rosario on 07-08-2022 Ferritin [Mass/Vol] 9.6 ng/mL 11-306.8 [facility] Globulin Calc (S) [Mass/Vol] Ordered By: Amanda Rosario on 07-08-2022 Globulin (S) [Mass/Vol] 2.9 g/dL [facility] Hematocrit Auto (Bld) [Volum e fraction]Ordered By: Amanda Rosario on 07-08-2022 Hematocrit (Bld) [Volume fraction] 42.7 % 34.0-46.4 [facility] Iron [Mass/volume] in Serum or PlasmaOrdered By: Amanda Rosario on 07-08-2022 Iron [Mass/Vol] 173 ug/dL 40-150 [facility] Iron binding capacity [Mass/ volume] in Serum or PlasmaOrdered By: Amanda Rosario on 07-08-2022 Iron binding capacity [Mass/Vol] 484 ug/dL 255-450 [facility] Iron saturation [Mass Fracti on] in Serum or PlasmaOrdered By: Amanda Rosario on 07-08-2022 Iron saturation [Mass fraction] 35.0 % 20-50 [facility] - Hematology and Cell countsOrdered By: Amanda Rosario on 07-08-2022 Nucleated RBC/100 WBC (Bld) [Ratio] 0.2 % 0-0.5 [facility] Lactate dehydrogenase measur ement (enzymatic activity/volume)Ordered By: Amanda Rosario on 07-08-2022 LDH (Unsp spec) [Catalytic activity/Vol] 154 U/L 45-190 [facility] Lymphocytes Auto (Bld) [#/Vo l]Ordered By: Amanda Rosario on 07-08-2022 Lymphocytes (Bld) [#/Vol] 1.5 10*3/uL 1.00-4.8 [facility] Lymphocytes/100 WBC Auto (Bl d)Ordered By: Amanda Rosario on 07-08-2022 Lymphocytes/100 WBC (Bld) 26.6 % . [facility] MCH Auto (RBC) [Entitic mass ]Ordered By: Amanda Rosario on 07-08-2022 MCH (RBC) [Entitic mass] 29.7 pg 24.7-34.3 [facility] MCHC Auto (RBC) [Mass/Vol]Or dered By: Amanda Rosario on 07-08-2022 MCHC (RBC) [Mass/Vol] 33.3 g/dL 32.0-35.0 [facility] MCV Auto (RBC) [Entitic vol] Ordered By: Amanda Rosario on 07-08-2022 MCV (RBC) [Entitic vol] 89.4 fL 80-100 [facility] Monocytes Auto (Bld) [#/Vol] Ordered By: Amanda Rosario on 07-08-2022 Monocytes (Bld) [#/Vol] 0.5 10*3/uL 0.0-0.8 [facility] Monocytes/100 WBC Auto (Bld) Ordered By: Amanda Rosario on 07-08-2022 Monocytes/100 WBC (Bld) 9.7 % . [facility] Neutrophils Auto (Bld) [#/Vo l]Ordered By: Amanda Rosario on 07-08-2022 Neutrophils (Bld) [#/Vol] 3.4 10*3/uL 1.8-7.7 [facility] Neutrophils/100 WBC Auto (Bl d)Ordered By: Amanda Rosario on 07-08-2022 Neutrophils/100 WBC (Bld) 61.2 % . [facility] No Panel InformationOrdered By: Amanda Rosario on 07-08-2022 Adrenocorticotropic Hormone 8.2 pg/mL 7.2-63.3 [facility] Comment on above: ACTH reference inter cruz for samples collected between 7 and 10 AM. Performed at: - [facility] [id number] Nonprofit Director: Sai Smalls PhD, Phone: [phone] ACTH reference inter cruz for samples collected between 7 and10 AM.Performed at: [facility] [facility] [id number] Director: Sai Smalls PhD, Phone: [phone] Estimated GFR () > 60 mL/Min [facility] Comment on above: GFR estimated refere nce range: According to KDOQI guidelines, <60 ml/min/1.73m2 is sufficient to diagnose a patient with chronic kidney disease. Pharmacy Creatinine Clearance (Chem 111.22 [facility] Total Triiodothyronine 1.68 ng/mL 0.87-1.78 [facility] Platelet mean volume Auto (B ld) [Entitic vol]Ordered By: Amanda Rosario on 07-08-2022 Platelet mean volume (Bld) [Entitic vol] 8.0 fL 6.3-10.7 [facility] Platelets Auto (Bld) [#/Vol] Ordered By: Amanda Rosario on 07-08-2022 Platelets (Bld) [#/Vol] 393 10*3/uL 150-450 [facility] Protein [Mass/volume] in Ser um or PlasmaOrdered By: Amanda Rosario on 07-08-2022 Protein [Mass/Vol] 6.8 g/dL 6.1-7.9 [facility] RBC Auto (Bld) [#/Vol]Ordere d By: Amanda Rosario on 07-08-2022 RBC (Bld) [#/Vol] 4.78 10*6/uL 3.60-5.00 [facility] Random cortisol measurementO rdered By: Amanda Rosario on 07-08-2022 Cortisol [Mass/Vol] 12.6 ug/dL [facility] Comment on above: Reference range: AM 6 - 24 ug/dl PM <10 ug/dl Reference range: AM 6 - 24 ug/dl PM <10 ug/dl Serum or plasma alanine green otransferase measurement without P-5'-P (enzymatic activiOrdered By: Amanda Rosario on 07-08-2022 ALT No additional P-5'-P [Catalytic activity/Vol] 17 U/L 10-60 [facility] Serum or plasma albumin/glob ulin mass ratioOrdered By: Amanda Rosario on 07-08-2022 Albumin/Globulin [Mass ratio] 1.3 {ratio} [facility] Serum or plasma alkaline mando sphatase measurement (enzymatic activity/volume)Ordered By: Amanda Rosario on 07-08-2022 ALP [Catalytic activity/Vol] 52 U/L 32-92 [facility] Serum or plasma aspartate am inotransferase measurement (enzymatic activity/volume)Ordered By: Amanda Rosario on 07-08-2022 AST [Catalytic activity/Vol] 22 U/L 10-42 [facility] Serum or plasma calcium saritha urement (mass/volume)Ordered By: Amanda Rosario on 07-08-2022 Calcium [Mass/Vol] 9.3 mg/dL 8.2-10.2 [facility] Serum or plasma chloride obi surement (moles/volume)Ordered By: Amanda Rosario on 07-08-2022 Chloride [Moles/Vol] 104 mmol/L 95-114 [facility] Serum or plasma glucose saritha urement (mass/volume)Ordered By: Amanda Rosario on 07-08-2022 Glucose [Mass/Vol] 83 mg/dL 70-100 [facility] Comment on above: ADA recommended refe rence range Random Glucose Reference Range is dependent on time and content of last meal. Glucose of more than 200 mg/dL in a nonstressed, ambulatory subject supports the diagnosis of Diabetes Mellitus. Serum or plasma potassium me asurement (moles/volume)Ordered By: Amanda Rosario on 07-08-2022 Potassium [Moles/Vol] 4.3 mmol/L 3.5-5.1 [facility] Serum or plasma sodium measu rement (moles/volume)Ordered By: Amanda Rosario on 07-08-2022 Sodium [Moles/Vol] 134 mmol/L 136-146 [facility] Serum or plasma thyroxine (T 4) measurement (mass/volume)Ordered By: Amanda Rosario on 07-08-2022 T4 [Mass/Vol] 11.18 ug/dL 5.39-11.82 [facility] Serum or plasma total biliru bin measurement (mass/volume)Ordered By: Amanda Rosario on 07-08-2022 Bilirubin [Mass/Vol] 0.7 mg/dL 0.3-1.2 [facility] Serum or plasma total carbon dioxide measurement (moles/volume)Ordered By: Amanda Rosario on 07-08-2022 CO2 [Moles/Vol] 22.2 mmol/L 22.0-30.0 [facility] Serum or plasma urea nitroge n measurement (mass/volume)Ordered By: Amanda Abraham on 07-08-2022 Urea nitrogen [Mass/Vol] 9 mg/dL 08-15 [facility] TSH DL <= 0.005 mIU/L QnOrde red By: Amanda Rosario on 07-08-2022 TSH Qn 1.69 m[IU]/L 0.45-5.33 [facility] CHLAMYDIA/GONOCOCCUS PARMINDER ( AB/URINE/PAPon 06-19-2022 Chlamydia trachomatis, PARMINDER Negative Normal Negative [facility] Comment on above: Performed By: #### T SH #### [facility] [address] [place] [address] Dr. Beth Pineda Neisseria gonorrhoeae, PARMINDER Negative Normal Negative [facility] Comment on above: Performed By: #### T SH #### [facility] [address] [place] [address] Dr. Beth Pineda VAGINITIS/VAGINOSIS DNA PROB Kaden 06-18-2022 Anh species Negative Normal Negative [facility] Comment on above: Performed By: #### T SH #### [facility] [address] [place] [address] Dr. Beth Pineda Gardnerella vaginalis Negative Normal Negative [facility] Comment on above: Performed By: #### T SH #### [facility] [address] [place] [address] Dr. Beth Pineda Trichomonas vaginalis Negative Normal Negative [facility] Comment on above: Performed By: #### T #### [facility] [address] [address] [address] Beth Pineda Creatinine [Mass/volume] in UrineOrdered By: Amanda Rosario on 05-23-2022 Creatinine (U) [Mass/Vol] 26.2 mg/dL [facility] Comment on above: No reference range e stablished Laboratory - Chemistry and C hemistry - challengeOrdered By: Amanda Rosario on 05-23-2022 Lipase [Catalytic activity/Vol] 32.0 U/L 22-51 [facility] Protein [Mass/volume] in Uri neOrdered By: Amanda Rosario on 05-23-2022 Protein (U) [Mass/Vol] mg/dL 0-9 [facility] Thyroxine (T4) free [Mass/vo lume] in Serum or PlasmaOrdered By: Amanda Rosario on 05-23-2022 Free T4 [Mass/Vol] 0.88 ng/dL 0.61-1.12 [facility] Bilirubin Test strip Ql (U)O rdered By: Amanda Rosario on 10-30-2021 Bilirubin Ql (U) Negative Negative [facility] Color Auto (U)Ordered By: Ira Rosario on 10-30-2021 Color (U) Yellow Yellow [facility] Ketones Auto test strip (U) [Mass/Vol]Ordered By: Amanda Rosario on 10-30-2021 Ketones (U) [Mass/Vol] Negative Negative [facility] Nitrite Test strip Ql (U)Ord ered By: Amanda Rosario on 10-30-2021 Nitrite Ql (U) Negative Negative [facility] Protein Auto test strip (U) [Mass/Vol]Ordered By: Amanda Rosario on 10-30-2021 Protein (U) [Mass/Vol] Negative Negative [facility] Specific gravity Auto test s trip (U) [Rel density]Ordered By: Amanda Rosario on 10-30-2021 Specific gravity (U) [Rel density] 1.008 1.001-1.030 [facility] Urine clarity by refractomet ry automatedOrdered By: Amanda Rosario on 10-30-2021 Clarity Refractometry automated (U) Clear Clear [facility] Urine glucose measurement by automated test strip (mass/volume)Ordered By: Amanda Rosario on 10-30-2021 Glucose Auto test strip (U) [Mass/Vol] Normal mg/dL Normal [facility] Urine hemoglobin detection b y automated test stripOrdered By: Amanda Rosario on 10-30-2021 Hemoglobin Auto test strip Ql (U) Negative Negative [facility] Urine leukocyte esterase det ection by automated test stripOrdered By: Amanda Rosario on 10-30-2021 Leukocyte esterase Auto test strip Ql (U) Negative Negative [facility] Urobilinogen Auto test strip (U) [Mass/Vol]Ordered By: Amanda Rosario on 10-30-2021 Urobilinogen (U) [Mass/Vol] Normal mg/dL Normal [facility] pH Auto test strip (U)Ordere d By: Amanda Rosario on 10-30-2021 pH (U) 5.5 [pH] 5.0-9.0 [facility] Lab Reportson 07-31-2021 Lab Reports [id number] D:127 Normal [facility] RAD - MISCon 07-31-2021 RAD - MISC [id number] D:127 Normal [facility] HCG ( test) IA.rapi d Ql (U)Ordered By: Amanda Rosario on 07-09-2021 HCG ( test) Ql (U) Negative [facility] Glucose Glucometer (BldC) [M ass/Vol]Ordered By: Amanda Rosario on 07-01-2021 Glucose [Mass/Vol] 82 mg/dL [facility] Comment on above: Random Glucose Refer ence Range is dependent on time and content of last meal. Glucose of more than 200 mg/dL in a nonstressed, ambulatory subject supports the diagnosis of Diabetes Mellitus. 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 Will follow up with the pathology report once this is resulted Dictation software was used in the creation of this note and not corrected for typographical or grammatical errors Chief Complaint Postop History of Present [id number] woman who underwent wide excision right posterior calf melanoma with [place] flap reconstruction as well as right inguinal and iliac sentinel lymph node biopsy on 05/17/2021. Pathology report has not yet resulted. She is recovering well. Active Problems Malignant melanoma of lower leg, right (172.7) (C43.71) Allergies No Known Drug Allergies Recorded By: Florence Fernando; 05/30/2021 2:49:13 PM Vitals Vital Signs Recorded: 30May2021 02:47PM Bvlupzhthew20 C, Temporal Heart Xemu626 Qtdxocgjeym54 Twxjjetd193, RUE, Sitting Gufpgpcok61, RUE, Sitting Blood Pressure Cuff SizeAdult Qgvwax061 cm Bfimgc77.6 kg BMI Ctdfcosuta25.58 kg/m2 BSA Calculated1.77 O2 Cfoxdvcqoz09 Pain Scale0 Physical Exam Right groin wounds above and below the inguinal crease are both healing well without evidence of infection or seroma Right lower leg incision healing well without infection or skin separation. There is some bruising noted around the flap but no flap ischemia Signatures Electronically signed by : Sarah Nevarez MD; May 30 2021 3:18PM EST (Author) Normal [employer] [facility] Dermatopathology Name MOISES KANG Pathologist: ANUJA [...] These were compared to the original melanoma ([id number]) and are consistent with a metastatic focus of malignant melanoma. The HMB45 and Melan-A immunostains (controls appropriate) are negative. This case has been amended. At the request of the pathologist, 0.3mm was changed to 0.03mm. The diagnosis is unchanged. C. NODE, RIGHT ILIAC SENTINEL LYMPH NODE, BIOPSY: BENIGN LYMPH NODE () (SEE COMMENT): Comment: Immunostains for HMB45, Melan-A, and SOX-10 (controls appropriate) are negative for definitive malignancy. There are rare small intraparenchymal SOX-10 cells that were compared to the original melanoma ([id number]) and are smaller with less cytoplasm compared [...] determined by the Department of Pathology at [facility]. The FDA does not require this [...] landis-yellow irregularly shaped piece of skin measuring [id number]. The specimen is embedded in toto. B: Received in formalin is a landis-yellow irregularly shaped piece of skin measuring [id number]. The specimen is embedded in toto. C: Received in formalin is a landis-yellow irregularly shaped piece of skin measuring [id number]. The specimen is embedded in toto. D: Received in formalin is a landis ellipse of skin measuring [id number], oriented by the surgeon with short stitch [...] Block 1 is at 12 o'clock. ink/05/21/2021 [facility] Dermatopathology Laboratory [place], [place] [address] [place] [address] Normal [facility] Comment on above: Performed By: #### D #### Dermatopathology HCG,URINEon 05-17-2021 Beta HCG ( test) Ql (U) Negative Normal Negative [facility] Comment on above: Performed By: #### H CGU #### [facility] [address] [place] [address] LYMPH GLANDon 05-17-2021 LYMPH GLAND Patient Name: AILYN KANG STUDY: LYMPH GLAND; 05/17/2021 12:45 pm INDICATION: Malignant melanoma of right posterior leg. COMPARISON: None. ACCESSION NUMBER(S): [id number] ORDERING CLINICIAN: SARAH NEVAREZ TECHNIQUE: DIVISION OF [...] as stated. This study was interpreted at [place], [place]. Electronically signed by: TAMY LAWTON MD Normal [facility] NM Lymph Glandon 05-17-2021 NM Lymph node Views Normal [facility] rgery-A dmin Main Work Phone: No Panel Informationon 05-17 XK-Uoddens-E [facility] Work Phone: Order Reconciliationon 05-17 [...] 4 days PRN pain, Dx: G89.18 Normal [facility] Patient Profile - Preop v2on 05-17-2021 Patient Profile - Preop v2 Profile: Initial Info: How to be AddressedSamantha Spoken Language PreferredEnglish Source of Informationpatient Are you currently using the Personal Electronic Health Record or [facility] Are you interested in learning more about [facility] for the management of your healthnot at this time Stated Reason for Admissionwide excision melanoma right posterior leg, keystone flap and sentinel lymph node biopsy Primary Contact Name and NumberChleigh ann lao [phone] Limitations on Visitors/Phone Callsnone Patient Belongingsremains with patient Patient Belongings Remaining with Patientclothing; cell phone/electronics Medications Brought to Hospitalno General Health: Weight in kg63.6 kilogram(s) Weight in ooi097.2 pound(s) Weight Methodstated Height in feet5 feet Height in inches8 inch(es) Height in cm172.7 centimeter(s) Height Methodstated BMI (kg/m2)21.324 square meter Patient or Family Member Reaction to Anesthesianever had anesthesia Blood Avoidance/Restrictionsn one Previous Transfusion Reactionno Health Mgmt: Symptoms/Conditions Managed at [facility] Are You no Are You Currently Breastfeedingno Barriers to Managing Healthnone Relationship/Environ: Living Arrangementshouse Lives Withsignificant other Resource/Environmental Concernsnone Anticipated Transition Toandal[place]ia healthe Services Anticipated at Transitionnone Substance: Current or [...] instruction; written material Cultural Considerationsnone Developmental Considerationsnone Jain Considerationsnone Other learner availableno [place] RiskPatient location auto qualifies him/her for HIGH RISK. Are there any cultural, spiritual, methodist practices/values/needs that are important for us to knowno Do you want a visit/item from Pastoral Careno Would you like your Patrol Inspector/Dental Biller notifiedno Pain Scalenumerical 0-10 Pain Scale Educationteaching [...] Information Last Updated: 17-May-2021 09:34 by Arabella Luis) [facility] Preop Checkliston 05-17-2021 Preop Checklist Preop Checklist: Preop Checklist: Arrival [id number] Arrival Time08:55 Procedure Typewide excision melanoma right posterior leg, keystone flap and sentinel lymph node biopsy Temperature C37.1 degrees C Temperature F98.7 degrees F Heart Rate92 beats per minute Respiratory Rate16 breath per minute Blood Pressure Xbxvxwqz057 mm/Hg Blood Pressure Refsaoojl11 mm/Hg NPO [id number] 22:00 Allergy Bandno known allergies Consent Signedyes [...] / CommunicationEnglish Electronic Signatures: Arabella Luis (ERICK DOWELL) (Signed 17-May-2021 09:36) Authored: Preop Checklist Last Updated: 17-May-2021 09:36 by Arabella Luis (ERICK DOWELL) [facility] Urine Teston 05-17 HCG ( test) Ql (U) Negative Negative QE-Soqiodv-D dmin Main Work Phone: Initial Visit (General [...] errors Chief Complaint Melanoma History of Present Iwbvifg96-phno-xwu woman referred from [facility] for right [...] May 02 2021 4:04PM EST (Author) Normal [facility] Vital Signs Date Time Vital Sign Value Performing Clinician Facility 05-22-2023 08:55-0400 Body temperature 97.8 [degF] MD Sarah Nevarez Work Phone: [facility] 05-22-2023 08:55-0400 Body weight 69.85 kg MD Sarah Nevarez Work Phone: [facility] 05-22-2023 08:55-0400 Diastolic blood pressure 68 mm[Hg] MD Sarah Nevarez Work Phone: [facility] 05-22-2023 08:55-0400 Heart rate 79 /min MD Sarah Nevarez Work Phone: [facility] 05-22-2023 08:55-0400 Respiratory rate 16 /min MD Sarah Nevarez Work Phone: [facility] 05-22-2023 08:55-0400 SaO2% (BldA) [Mass fraction] 98 % MD Sarah Nevarez Work Phone: [facility] 05-22-2023 08:55-0400 Systolic blood pressure 108 mm[Hg] MD Sarah Nevarez Work Phone: [facility] 01-21-2023 14:57-0500 Body temperature 97.8 [degF] MD Sarah Nevarez Work Phone: [facility] 01-21-2023 14:57-0500 Body weight 67.2 kg MD Sarah Nevarez Work Phone: [facility] 01-21-2023 14:57-0500 Diastolic blood pressure 79 mm[Hg] MD Sarah Nevarez Work Phone: [facility] 01-21-2023 14:57-0500 Heart rate 72 /min MD Sarah Nevarez Work Phone: [facility] 01-21-2023 14:57-0500 Respiratory rate 16 /min MD Sarah eNvarez Work Phone: [facility] 01-21-2023 14:57-0500 SaO2% (BldA) [Mass fraction] 98 % MD Sarah Nevarez Work Phone: [facility] 01-21-2023 14:57-0500 Systolic blood pressure 119 mm[Hg] MD Sarah Nevarez Work Phone: [facility] 07-08-2022 13:02-0400 Body height 172.72 cm MD Amanda Rosario Work Phone: [facility] 07-08-2022 13:02-0400 Body temperature 98 [degF] MD Amanda Rosario Work Phone: [facility] 07-08-2022 13:02-0400 Body weight 67.81 kg MD Amanda Rosario Work Phone: [facility] 07-08-2022 13:02-0400 Diastolic blood pressure 71 mm[Hg] MD Amanda Abraham Work Phone: [facility] 07-08-2022 13:02-0400 Heart rate 95 /min MD Amanda Rosario Work Phone: [facility] 07-08-2022 13:02-0400 Respiratory rate 20 /min MD Amanda Rosario Work Phone: [facility] 07-08-2022 13:02-0400 SaO2% (BldA) [Mass fraction] 97 % MD Amanda Rosario Work Phone: [facility] 07-08-2022 13:02-0400 Systolic blood pressure 115 mm[Hg] MD Amanda Rosario Work Phone: [facility] 05-30-2021 14:47-0400 Body height 173 cm Price Girard Work Phone: RR-Aszzlbu-Zrrpd Main Work Phone: 05-30-2021 14:47-0400 Body mass index (BMI) [Ratio] 21.58 kg/m2 Price Girard Work Phone: NT-Erkgytz-Blujz Main Work Phone: 05-30-2021 14:47-0400 Body surface area Derived from formula 1.77 m2 Price Girard Work Phone: MV-Olummft-Umpzl Main Work Phone: 05-30-2021 14:47-0400 Body temperature 98.6 [degF] Price Girard Work Phone: AU-Eaqfljj-Muftl Main Work Phone: 05-30-2021 14:47-0400 Body weight 64.6 kg Price Girard Work Phone: ZT-Sndcokh-Nbsct Main Work Phone: 05-30-2021 14:47-0400 Diastolic blood pressure 77 mm[Hg] Price Girard Work Phone: RD-Xtwifgv-Bunqo Main Work Phone: 05-30-2021 14:47-0400 Heart rate 103 /min Price Girard Work Phone: QB-Dshgrcs-Pxecs Main Work Phone: 05-30-2021 14:47-0400 Respiratory rate 16 /min Price Girard Work Phone: FM-Acpgtxz-Iuvxl Main Work Phone: 05-30-2021 14:47-0400 SaO2% (BldA) [Mass fraction] 99 % Price Girard Work Phone: CG-Qcqcayh-Tnfyq Main Work Phone: 05-30-2021 14:47-0400 Systolic blood pressure 131 mm[Hg] Price Girard Work Phone: GC-Xldiedt-Srkke Main Work Phone: 05-30-2021 14:47-0400 0 1 Price Girard Work Phone: HV-Fejtwhx-Lhxac Main Work Phone: Comment on above: [employer] 1995 00:00-0400 >na< Essence B[facility]ins Dept. 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 Encounters Encounter Date Encounter Type Care Provider Facility Start: 08-23-2024 End: 08-23-2024 Bamboo flowsheet Delvis Kt DO Work Phone: [facility] Start: 08-23-2024 End: 08-23-2024 Bamboo flowsheet Delvis Kt DO Work Phone: [facility] Start: 02-22-2024 End: 02-22-2024 ambulatory GILBERTO AICHHOLZ Not Available Start: 02-10-2024 End: 02-10-2024 ambulatory DELVIS KT Not Available Start: 11-18-2023 End: 11-18-2023 ambulatory DELVIS KT Not Available Start: 10-06-2023 End: 10-06-2023 ambulatory DELVIS KT Not Available Start: 08-19-2023 ambulatory Mike Wagner Facility:[facility] Start: 05-22-2023 End: 05-22-2023 ambulatory MD Sarah Nevarez Work Phone: [facility] Work Phone: Start: 05-22-2023 End: 05-22-2023 Registered Recurring MD Sarah Nevarez Work Phone: [facility] Work Phone: Start: 04-07-2023 End: 04-08-[address] DELVIS MERAZ . Facility:[facility] Start: 03-13-2023 End: 03-14-[address] DELVIS MERAZ . Facility:[facility] Start: 02-27-2023 End: 02-28-[address] DELVIS MERAZ . Facility:[facility] Start: 02-11-2023 End: 02-12-[address] DELVIS MERAZ . Facility:[facility] Start: 02-09-2023 End: 02-10-[address] DELVIS MERAZ . Facility:[facility] Start: 01-30-2023 End: 01-31-[address] DELVIS MERAZ . Facility:[facility] Start: 01-21-2023 End: 01-21-2023 ambulatory MD Sarah Nevarez Work Phone: [facility] Work Phone: Start: 01-21-2023 End: 01-21-2023 Registered Recurring MD Sarah Nevarez Work Phone: [facility] Work Phone: Start: 01-13-2023 End: 01-13-[address] DELVIS MERAZ . Facility:[facility] Start: 01-01-2023 Encounter for genera l adult medical examination without abnormal findings DR MIKE WAGNER [facility] Start: 12-31-2022 End: 01-01-[address] MIKE WAGNER Facility:[facility] Start: 12-31-2022 End: 01-01-2023 Encounter for general adult medical examination without abnormal findings DR MIKE A NADERER Facility:[facility] Start: 07-08-2022 End: 07-08-2022 Registered Recurring MD Amanda Rosario Work Phone: [facility] Start: 06-16-2022 End: 06-16-[address] DELVIS MERAZ . Facility:[facility] Start: 04-09-[address] AMANDA ROSARIO Facility :[facility] Start: 06-22-2021 Chart Update Price Girard Work Phone: [facility] Work Phone: Start: 06-18-2021 [facility] Blevins Dept. of D ermatology Start: 05-30-2021 Postop follow up vis it related to original px Price Girard Work Phone: BD-Ssjqngn-Hnqbk Main Work Phone: Procedures Date Procedure Procedure [...] Treatment Date Care Activity Detail Author Start: 08-26-2024 End: 08-26-2024 ambulatory 08/26/2024 10:00 AM EDT Initial [facility] [address] [facility] [address] [facility] Start: 08-26-2024 End: 08-26-2024 Professional / ancillary services management 08/26/2024 9:30 AM EDT Ancillary Procedure [facility] [address] [facility] [address] [facility] Start: 08-23-2024 End: 08-23-2024 Patient encounter procedure 08/23/2024 10:50 AM EDT Routine [facility] [address] [facility] [address] Delvis Meraz, DO [address] [place] [address] Arrived [facility] Comment on above: Arrived Start: 07-24-2024 Influenza vaccination Influenz a Vaccine (#1) [facility] Start: 05-23-2022 [facility] Start: 04-25-2022 [facility] Start: 03-28-2022 [facility] Start: 02-28-2022 [facility] Start: 01-31-2022 [facility] Start: 01-28-2022 [facility] Start: 12-31-2021 [facility] Start: 12-24-2021 [facility] Start: 11-29-2021 [facility] Start: 11-01-2021 [facility] Start: 10-28-2021 [facility] Start: 10-02-2021 End: 10-03-2021 [facility] Start: 09-06-2021 [facility] Start: 09-03-2021 [facility] Start: 08-08-2021 [facility] Start: 07-11-2021 [facility] Adrenocorticotropic hormone measurement [facility] Comprehensive metabo lic 2000 panel - Serum or Plasma [facility] Work Phone: [facility] metabo lic 1999 panel - Serum or Plasma [facility] Comprehensive metabo lic 1999 panel - Serum or Plasma [facility] Comprehensive metabo lic 1999 panel - Serum or Plasma [facility] CT Abdomen and Pelvi s W contrast IV [facility] Work Phone: CT Abdomen and Pelvi s W contrast IV [facility] CT Abdomen and Pelvi s W contrast IV [facility] CT Chest W contrast IV [facility] Work Phone: CT Chest W contrast IV [facility] CT Chest W contrast IV [facility] Ferritin [Mass/volum e] in Serum or Plasma [facility] Work Phone: Lactate dehydrogenas e [Enzymatic activity/volume] in Unspecified specimen [facility] Work Phone: Thyrotropin [Units/v olume] in Serum or Plasma [facility] Thyroxine (T4) free [Mass/volume] in Serum or Plasma [facility] Triiodothyronine (T3 ) Free [Mass/volume] in Serum or Plasma [facility] Extremity [facility] Work Phone: [facility] Immunizations Immunization Date Immunization Notes Care Provider Molly chinchilla 07-09-2018 influenza virus vaccine, unspecified formulation Delvis Ktpavel VAZQUEZ Work Phone: [facility] 1997 pneumococcal conjuga te vaccine, 7 valent [facility] Dept. 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 Payers Date Payer Category Payer Unknown 2021 Self-pay [id number] 2021 Unknown [id number] 2021 Unknown [id number] 2019 Unknown [id number] 1997 Unknown [id number] 2.16.84 0.1.800139.3.579.2.593 1997 Unknown [id number] 2.16.84 0.1.189603.3.579.2.593 1997 Unknown [id number] 2.16.84 0.1.893093.3.579.2.593 1997 Unknown [id number] 2.16.84 0.1.307984.3.579.2.593 1997 Unknown [id number] 2.16.84 0.1.980469.3.579.2.593 1997 Unknown [id number] 2.16.84 0.1.352818.3.579.2.593 1997 Unknown [id number] 2.16.84 0.1.056457.3.579.2.593 1997 Unknown [id number] 2.16.84 0.1.765637.3.579.2.593 1997 Unknown [id number] 2.16.84 0.1.919756.3.579.2.593 1997 Unknown [id number] 2.16.84 0.1.727082.3.579.2.593 1997 Unknown [id number] 2.16.84 0.1.472825.3.579.2.1259 1997 Unknown [id number] 2.16.84 0.1.157347.3.579.2.1259 1997 Unknown [id number] 2.16.840 .1.836738.3.579.2.1259 1997 Unknown [id number] 2.16.840. 1.814372.3.579.2.1259 1959 Unknown [id number] 1959 Unknown [id number] Unknown [id number] 2.16.8 40.1.118779.3.579.2.531 Social History Date Type Detail Facility Start: 06-18-2021 Dept. 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 Start: 1995 Sex Assigned At Female [facility] Start: 07-08-2022 End: 04-10-2023 Tobacco smoking status NHIS Never smoked tobacco (finding) [facility] Start: 04-10-2023 Tobacco use and exposure Smokeless tobacco non-user [facility] Start: 02-22-2024 Alcoholic beverage intake Ex-drinker (finding) [facility] Start: 02-22-2024 History of Social function [facility] Start: 02-22-2024 Social connection and isolation panel [facility] Do you belong to any clubs or organizations such as adventist groups, unions, fraternal or athletic groups, or school groups? No [facility] How often do you att end meetings of the clubs or organizations you belong to? Patient declined [facility] Are you now , , , , never or living with a partner? [facility] How often to you hav e a drink containing alcohol? Monthly or less [facility] How many standard dr inks containing alcohol do you have on a typical day? 1 or 2 [facility] How often do you hav e 6 or more drinks on 1 occasion? Never [facility] Do you feel stress - tense, restless, nervous, or anxious, or unable to sleep at night because your mind is troubled all the time - these days [OSQ] Not at all [facility] (I/We) worried wheth er (my/our) food would run out before (I/we) got money to buy more. Never true [facility] Start: 1995 Sex assigned at Not on file [facility] Start: 05-20-2023 Gender identity Identifies as female gender (finding) [facility] Goals Date Patient Goal Desired Activity /State Clinical Notes 05-14-2021 to 05-23-2023 Note Date & Type Note Facility 05-23-2023 Progress note Note Date/Time May 22, 2023 9:03[facility] at [address] [address] Hem/Onc Follow Up Note - OP Signed Patient: Ailyn Resendiz MR#: [id number] : 1995 Acct:[id number] Age/Sex: 27 / F Type: REG RCR [...] of restaging CT CAP by phone with TOOL LATHE OPERATOR in October--no evidence of recurrence. Saw dermatology [...] dyspepsia. We will coordinate parenteral iron at [facility] per her request. Normal thyroid, [...] trauma. She was seen by dermatology at [facility] in [place] and underwent a biopsy of the right [...] 3. Venofer for iron deficiency anemia at [facility] 03/2022 ROS Details: All systems [...] DAILY PRN Anxiety 06/18/21 [History Confirmed 05/22/23] YQV-taqp-LH-omega 3-fat com #1 27 mg-1 mg-300 mg [...] Creatinine Clear 154.92, Sodium 136, Potassium 4.2, Bdmsyfle122, Carbon Dioxide 26.1, Anion Gap 10.1, BUN [...] % (Auto) 79.8, Lymph % (Auto) 12.8, Meade % (Auto) 6.4, Eos % (Auto) 0.6, Baso % (Auto) 0.4, Nucleat RBC Rel Count 0.2, Neut # (Auto) 8.2 H, Lymph # (Auto) 1.3, Meade # (Auto) 0.7, Eos # (Auto) 0.1, [...] 4% with ferritin 7. Coordinated [facility] infusionsat [facility] (300mg IV x 3 doses) 03/2022 with followup CBC, serum iron profile, and ferritin in one month. Consider GI evaluation for iron deficiency. 07/09/2022: She is doing well on oral iron recommended by her component engineer. She does not plan to have children anytime soon, but discussed with her component engineer the best iron supplementation to be on [...] for coordination of care (as documented) and fsyu-zf-tvth counseling of patient and/or family. Dictated By: Amanda Rosario MD DD/ 1 Signed By: <Electronically signed by MD Amanda Rosario> 05/23/23 2209 [facility] Work Phone: 1(992) 644-592803-01-2023 Progress note Author Amanad Rosario [facility] January 21, 2023 8:51pm Note Date/Time January 21, 2023 3:01 pm [facility] at [address] [address] Hem/Onc Follow Up Note - OP Signed Patient: Ailyn Resendiz MR#: [id number] : 1995 Acct:[id number] Age/Sex: 27 / F Type: REG RCR Copies to: MD Mike Ewing MD~ Subjective Date/Time of Service: Date of Service: 01/21/2023 Time of Service: 15:00 Chief Complaint: Patient is here today for a 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 No new concerns HPI: 01/21/2023: Ailyn had review of restaging CT CAP by phone with TOOL LATHE OPERATOR in October--no evidence of recurrence. Saw dermatology [...] dyspepsia. We will coordinate parenteral iron at [facility] per her request. Normal thyroid, [...] trauma. She was seen by dermatology at [facility] in [place] and underwent a biopsy of the right [...] 3. Venofer for iron deficiency anemia at [facility] 03/2022 ROS Details: All systems [...] Mild Nivolumab infusion reaction in February 2022. [facility] - History Attestation statement: The following information [...] DAILY PRN Anxiety 06/18/21 [History Confirmed 01/21/23] FDN-nkdg-JA-omega 3-fat com #1 27 mg-1 mg-300 mg [...] 4% with ferritin 7. Coordinated Venofer infusionsat [facility] (300mg IV x 3 doses) 03/2022 with followup CBC, serum iron profile, and ferritin in one month. Consider GI evaluation for iron deficiency. 07/09/2022: She is doing well on oral iron recommended by her component engineer. She does not plan to have children anytime soon, but discussed with her component engineer the best iron supplementation to be on [...] for coordination of care (as documented) and uete-kh-zult counseling of patient and/or family. Dictated By: Amanda Rosario MD DD/ 1500 Signed By: <Electronically signed by MD Amanda Rosario> 01/21/232050 [facility] Work Phone: 1(762) 473-879608-17-2022 Progress note Author Ale Malone [facility] July 09, 2022 1:35pm Note Date/Time July 08, 2022 1: 31pm [facility] [place] [address] Hem/Onc Follow Up Note - OP Signed with Addenda Patient: Ailyn Resendiz MR#: [id number] : 1995 Acct:[id number] Age/Sex: 27 / F Type: REG RCR [...] dyspepsia. We will coordinate parenteral iron at [facility] per her request. Normal thyroid, [...] trauma. She was seen by dermatology at [facility] in [place] and underwent a biopsy of the right [...] % (Auto) 61.2, Lymph % (Auto) 26.6, Meade % (Auto) 9.7, Eos % (Auto) 1.2, Baso % (Auto) 1.3, Neut # (Auto) 3.4, Lymph # (Auto) 1.5, Meade # (Auto) 0.5, Eos# (Auto) 0.1, Baso [...] ferritin 7. Will have Venofer infusions at [facility] (300mg IV x 3 doses) with followup CBC, serum iron profile,and ferritin in one month. Consider GI evaluation for iron deficiency. 07/09/2022: She is doing well on oral iron recommended by her component engineer. She does not plan to have children anytime soon, but discussed with her component engineer the best iron supplementation to be on [...] for coordination of care (as documented) and acbn-jv-xrjz counseling of patient and/or family. Dictated By: Ale Malone APRN DD/ 1331 Signed By: <Electronically signed by KIKI Malone> 07/09/22 0958 [facility] Work Phone: 1(356) 202-769605-12-2022 Progress note Author Amanda Rosario [facility] April 03, 2022 8:56pm Note Date/Time April 02, 2022 8:30p m [facility] at [address] [address] Hem/Onc Follow Up Note - OP Signed Patient: Ailyn Resendiz MR#: [id number] : 1995 Acct:[id number] Age/Sex: 26 / F Type: REG RCR [...] dyspepsia. We will coordinate parenteral iron at [facility] per her request. Normal thyroid, [...] trauma. She was seen by dermatology at [facility] in [place] and underwent a biopsy of the right [...] Mild Nivolumab infusion reaction in February 2022. [facility] - History Attestation statement: The following information [...] Creatinine Clear 115.14, Sodium 136, Potassium 4.1, Mskrtfwq061, Carbon Dioxide 24.5, BUN 9, Creatinine 0.76, [...] % (Auto) 46.7, Lymph % (Auto) 30.6, Meade % (Auto) 20.8, Eos % (Auto) 0.9, Baso % (Auto) 1.0, Neut # (Auto) 1.6 L, Lymph # (Auto) 1.1, Meade # (Auto) 0.7, Eos # (Auto) 0.0, [...] ferritin 7. Will have Venofer infusions at [facility] (300mg IV x 3 doses) [...] for coordination of care (as documented) and jwlw-uv-lafw counseling of patient and/or family. Dictated By: Amanda Rosario MD DD/ 28 Signed By: <Electronically signed by MD Amanda Rosario> 04/03/222055 [facility] Work Phone: 1([phone]) 898-353402-23-2022 Progress note Author Amanda Rosario [facility] January 15, 2022 9:15pm Note Date/Time January 15, 2022 11:55am [facility] [place] [id number] Hem/Onc Follow Up Note - OP Signed Patient: Ailyn Kang MR#: [id number] : 1995 Acct:[id number] Age/Sex: 26 / F Type: REG RCR [...] trauma. She was seen by dermatology at [facility] in [place] and underwent a biopsy of the right [...] Negative for environmental allergies and food allergies. PMF - History Attestation statement: The following [...] for coordination of care (as documented) and epgf-yn-smmh counseling of patient and/or family. Dictated By: Amanda Rosario MD DD/ 1154 Signed By: <Electronically signed by MD Amanda Rosario> 01/15/22 9322 [facility] Work Phone: 1(378) 948-846311-11-2021 Progress note Author Denia Alvares [facility] October 03, 2021 10:47am Note Date/Time October 03, 2021 10:34am [facility] at [address] [address] Hem/Onc Follow Up Note - OP Signed Patient: Ailyn Kang MR#: [id number] : 1995 Acct:[id number] Age/Sex: 26 / F Type: REG RCR [...] trauma. She was seen by dermatology at [facility] in [place] and underwent a biopsy of the right [...] Negative for environmental allergies and food allergies. [facility] - Medical History Medical History: Medical History [...] Creatinine Clear 112.19, Sodium 139, Potassium 4.1, Lirihfhu968, Carbon Dioxide 26.4, BUN 9, Creatinine 0.78, [...] % (Auto) 66.7, Lymph % (Auto) 23.1, Meade % (Auto) 8.3, Eos % (Auto) 1.0, Baso % (Auto) 0.9, Neut # (Auto) 5.0, Lymph # (Auto) 1.7, [place]ade # (Auto) 0.6, Eos# (Auto) 0.1, Baso [...] be ~ early to mid December 2021. Perla ordering today; patient to follow up with [...] for coordination of care (as documented) and zmwg-qu-yupq counseling of patient and/or family. Dictated By: Denia Alvares APRN DD/ 1025 Signed By: <Electronically signed by KIKI Alvares> 10/03/21 1047 [facility] Work Phone: 1(430) 273-585508-27-2021 Progress note Author Amanda Rosario [facility] July 19, 2021 12:54pm Note Date/Time July 18, 2021 2: 10pm [facility] [place] [address] Hem/Onc Follow Up Note - OP Signed Patient: Ailyn Kang MR#: [id number] : 1995 Acct:[id number] Age/Sex: 26 / F Type: REG RCR [...] trauma. 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. 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 Dictated By: Amanda Rosario MD DD/ 1409 Signed By: <Electronically signed by MD Amanda Rosario> 07/19/21 1251 [facility] Work Phone: 1([phone]) [phone] Consult note Author Amanda Rosario [facility] June 24, 2021 10:09pm Note Date/Time June 24, 2021 2:1 8pm [facility] [place] [id number] Hem/Onc Consult Note - OP Signed Patient: Ailyn Kang MR#: [id number] : 1995 Acct:[id number] Age/Sex: 26 / F Type: REG RCR [...] trauma. 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 Note Recipients: Price Girard MD - [id number] [] Bettina Madera PAC - [phone] [] Attestation: Note Completion: Attending AttestationI performed the procedure without a resident Electronic Signatures: Sarah Nevarez) (Signed 17-May-2021 18:18) Authored: Post-Operative Note, Chart Review, Note Completion Last Updated: 17-May-2021 18:18 by Sarah Nevarez)[facility] 05-17-2021 History of Present illness Gutkwpgze56-lmxd-oba woman who underwent wide excision right posterior calf melanoma with [place] flap reconstruction as well as right inguinal and iliac sentinel lymph node biopsy on 05/17/2021. Pathology report has not yet resulted. She is recovering well.[facility] Main Work Phone: 1(385) [phone] History of Present illness Narrative 25-year-old woman who underwent wide excision right posterior calf melanoma with [place] flap reconstruction as well as right inguinal and iliac sentinel lymph node biopsy on 05/17/2021. Pathology report has not yet resulted. She is recovering well.[facility] Work Phone: [phone] NoteHistory & Physical Reviewed: /Lactating: Are You [...] Patient Profile - Preop v2 17-May-2021 09:27[facility]06-22-2021 NoteAccession #: [id number] Pathologist: ANUJA OLIVO MD Date of Procedure: 05/14/2021 Date Received: 05/14/2021 Submitting Physician: SARAH NEVAREZ MD Location: [facility] Copy To/Referring/Attending: ROLY EDGE DO FINAL DIAGNOSIS 2 SLIDES, [facility] #[id number] (BX: 04/23/2021) SKIN, RT POST LEG, SHAVE [...] MD. CANCER SUMMARY REPORT A. 2 SLIDES, [facility] #[id number] (BX: 04/23/2021): SPECIMEN Procedure: Biopsy, shave Specimen [...] report. Primary Tumor (pT): pT3b ADDITIONAL TESTING RUBBER ATTACHER BLOCKS: Tumor Block: CSP slide [id number] Electronically Signed Out By ANUJA OLIVO MD/BEBETO Microscopic Description: Microscopic examination performed. Clinical History: SHAVE/ BCC VS MM VS PG 1.9 X 1.9CM Specimens Submitted As: A: 2 SLIDES, [facility] #[id number] (BX: 04/23/2021) Gross Description: Received for consultation from [facility] are two slides labeled [id number] (BX: 04/23/2021) along with the corresponding pathology report. Slide/Block Description 2 SLIDES, [id number]. Keep Slides: N Slides Returned: N [facility]:Performed By: #### D #### DermatopathologyEvaluation noteN/ADept. 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 Evaluation note* Diagnosis Onset Date Resolution Status Iron deficiency anemia acute Chiari malformation type I c hronic Edema of right lower extremity chronic Encounter for antineoplastic immunotherapy chronic Malignant melanoma of right lower leg chronic [facility] Work Phone: Evaluation note* Diagnosis Onset Date Resolution Status Chiari malformation type I c hronic Edema of right lower extremity chronic Encounter for antineoplastic immunotherapy chronic Iron deficiency anemia chron ic Malignant melanoma of right lower leg chronic [facility] Work Phone: Evaluation noteNo assessment information available [facility] Work Phone: Hospital Discharge instructionsAmbulatory Orders* RISE Order Time Frame: 1 Day, Location: Determined By Patient * Survivourship Follow Up Time Frame: 3 Months, Location: Determined By Patient [facility] Work Phone: Progress note Author Ale Malone [facility] July 09, 2022 1:35pm Note Date/Time July 08, 2022 1: 31pm [facility] [place] [address] Hem/Onc Follow Up Note - OP Signed with Addenda Patient: Ailyn Resendiz MR#: [id number] : 1995 Acct:[id number] Age/Sex: 27 / F Type: REG RCR Copies to: MD Sarah Gillespie MD Marc Naderer, MD~ ADDENDUM1 After discussion with Dr. Rosario, we will have the patient follow-up in 3 months instead of 6, and will plan repeat CT c/a/p prior to that visit. Addendum Dictated By: KIKI Ale Yudith Malone Addendum Signed By: 07/09/221334 Addendum Cosigned [...] dyspepsia. We will coordinate parenteral iron at [facility] per her request. Normal thyroid, [...] trauma. She was seen by dermatology at [facility] in [place] and underwent a biopsy of the right [...] % (Auto) 61.2, Lymph % (Auto) 26.6, Meade % (Auto) 9.7, Eos % (Auto) 1.2, Baso % (Auto) 1.3, Neut # (Auto) 3.4, Lymph # (Auto) 1.5, [place] # (Auto) 0.5, Eos# (Auto) 0.1, Baso [...] ferritin 7. Will have Venofer infusions at [facility] (300mg IV x 3 doses) with followup CBC, serum iron profile,and ferritin in one month. Consider GI evaluation for iron deficiency. 07/09/2022: She is doing well on oral iron recommended by her component engineer. She does not plan to have children anytime soon, but discussed with her component engineer the best iron supplementation to be on [...] for coordination of care (as documented) and jqka-wv-wblr counseling of patient and/or family. Dictated By: Ale Malone APRN DD/ 1331 Signed By: <Electronically signed by KIKI Malone> 07/09/22 0958 [facility] Work Phone: Progress note Author Amanda Rosario [facility] January 21, 2023 8:51pm Note Date/Time January 21, 2023 3:01 pm [facility] at [address] [address] Hem/Onc Follow Up Note - OP Signed Patient: Ailyn Resendiz MR#: [id number] : 1995 Acct:[id number] Age/Sex: 27 / F Type: REG RCR Copies to: MD Mike Ewing MD~ Subjective Date/Time of Service: Date of Service: 01/21/2023 Time of Service: 15:00 Chief Complaint: Patient is here today for a 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 No new concerns HPI: 01/21/2023: Ailyn had review of restaging CT CAP by phone with TOOL LATHE OPERATOR in October--no evidence of recurrence. Saw dermatology [...] well controlled with stool softeners as needed. Otherwiseshkristine has no new complaints. Inguinal US was [...] dyspepsia. We will coordinate parenteral iron at [facility] per her request. Normal thyroid, [...] trauma. She was seen by dermatology at [facility] in [place] and underwent a biopsy of the right [...] 3. Venofer for iron deficiency anemia at [facility] 03/2022 ROS Details: All systems [...] Mild Nivolumab infusion reaction in February 2022. [facility] - History Attestation statement: The following information [...] DAILY PRN Anxiety 06/18/21 [History Confirmed 01/21/23] EQI-ywfs-ME-omega 3-fat com #1 27 mg-1 mg-300 mg [...] 4% with ferritin 7. Coordinated [facility] infusions[facility] (300mg IV x 3 doses) 03/2022 with followup CBC, serum iron profile, and ferritin in one month. Consider GI evaluation for iron deficiency. 07/09/2022: She is doing well on oral iron recommended by her component engineer. She does not plan to have children anytime soon, but discussed with her component engineer the best iron supplementation to be on [...] for coordination of care (as documented) and curq-lg-xsba counseling of patient and/or family. Dictated By: Amanda Rosario MD DD/ 1500 Signed By: <Electronically signed by MD Amanda Rosario> 01/21/232050 [facility] Work Phone: Reason for referral (narrative)* [...] section and content) DATE CREATED AUTHOR 05/31/2021 [employer] DATE CREATED AUTHOR AUTHOR'S ORGANIZ ATION 06/18/2021 [facility] DATE CREATED AUTHOR AUTHOR'S ORGANIZ ATION 08/01/2021 [facility] DATE CREATED AUTHOR AUTHOR'S ORGANIZ ATION 01/18/2022 [facility] DATE CREATED AUTHOR AUTHOR'S ORGANIZ ATION 04/08/2023 [facility] DATE CREATED AUTHOR AUTHOR'S ORGANIZ ATION 11/21/2023 [facility] DATE CREATED AUTHOR AUTHOR'S ORGANIZ ATION 08/24/2024 [facility] EPIC Care Teams (unrecognized sec tion and content) Team Status: Active Member Role Status Dates Mike Wagner MD Primary Care Provider Active Team Status: Active Member Role Status Dates Amanda Rosario MD Attending Provider Active Sarah Nevarez MD Referring Provider Active Mike Wagner MD Primary Care Provider Active Athlete Manager Relationship Specialty Start Date End Date Mike Wagner MD [address] [place] [id number] PCP - General Family Medicine 02/09/24 Shaikh Melendrez MD [address] [place] [phone] PCP - [facility] 08/23/23 Goals (unrecognized section and content) Goals may [...] BE BASED ON THE PRIMARY CLINICAL RECORDS. [facility]. provides no warranty or guarantee of the accuracy or completeness of information in this document.
== END 2024-08-26 09:32 | disposition home or self-care (01) ==
LOC: NOMS 09:32
PROVIDERS: PCP Family Medicine; Visit Provider Obstetrics & Gynecology
DX: Z34.91 Encounter for supervision of normal pregnancy, unspecified, first trimester (principal); Z3A.08 8 weeks gestation of pregnancy; N92.6 Irregular menstruation, unspecified
CPT/HCPCS: 76817

== ENCOUNTER 2024-09-19 08:33 | Outpatient (OUT) | payer BC, SELFPAY ==
--- OUTSIDE RECORDS SUMMARY | 2024-09-19 08:52 | XMS_ITS | CCD ---
Author Organization [facility] Care Team Providers Care Claim Adjuster Name Role Phone Price Girard Unavailable Unavailable Unavailable Essence Blevins Unavailable Unavailable MD Amanda Rosario Attending Provider MD Sarah Nevarez Referring Provider [phone] MD Mike Wagner Primary Care Provider MD Amanda Rosario Attending Provider MD Sarah Nevarez Referring Provider [phone] MD Mike Wagner Primary Care Provider KT [...] Admitting Unavailable MD Amanda Rosario Attending Provider [phone] MD Sarah Nevarez Referring Provider MD Mike Wagner Primary Care Provider Mike Wagner Primary Care Unavailable Amanda Rosario Admitting Unavailable Amanda Rosario Attending Unavailable Sarah Nevarez Referring Unavailable Mike Wagner MD Primary Care Provider Shaikh Melendrez MD Unavailable DELVIS MERAZ Attending [...] MG PO Daily August 19, 2023 12:00am Magnesium Oxide (1 source) magnesium oxide (Mag-Ox) 400 mg tablet 400 mg Daily Active Multiple Vitamin (multivitamin) tablet (1 source) take 1 tablet by mouth once daily Multiple Vitamin (multivitamin) tablet Take 1 tablet by mouth Daily Active Ltv-Ymnk-Uy-[place] 3-Fat Com #1 (Pre-Jeanette Multivitamins/[place] als) 27-1-300 mg Capsule (3 sources) Start: 01-21-2023 Ycr-Fnye-Vy-[place] 3-Fat Com #1 (Pre-Jeanette Multivitamins/Mine rals) 27-1-300 mg Capsule Active CAP PO January 21, 2023 1:00am Start: 01-21-2023 Pao-Pvgh-Wz-Om ega 3-Fat Com #1 (Pre-Jeanette Multivitamins/Minerals) 27-1-300 mg Capsule Active CAP PO January 21, 2023 12:00am MV-Min-Fe Fum-FA-DH A ( 1 PO) (1 source) MV-Min- Fe Fum-FA-DHA ( 1 PO) Take by mouth Active Progesterone 200 MG supposit ory (3 sources) Start: 08-26-2024 End: 09-25-2024 Progesterone 200 MG supposit ory Indications: History of miscarriage Insert 200 mg into the vagina at bedtime Insert suppository vaginally every night at bedtime until 12 weeks gestation 30 suppository 08/26/2024 09/25/2024 Active Start: 08-05-2024 End: 08-26-2024 Progesterone 200 MG supposit ory Indications: History of miscarriage Insert 200 mg into the vagina at bedtime Insert suppository vaginally every night at bedtime until 12 weeks gestation 30 suppository 08/05/2024 08/26/2024 Discontinued (Reorder) Start: 08-05-2024 End: 09-04-2024 Progesterone 200 MG [...] deficiency anemia, unspecified] 07-08-2022 Episodic Esophageal disorders (2 sources) Laryngopharyngeal reflux; Translations: [Gastro-esophageal reflux disease without esophagitis] Onset: 02-22-2024 02-22-2024 Chronic Immunizations and screening for infectious disease (2 sources) Encounter for screening for human papillomavirus (HPV); Translations: [Encounter for screening for infections with a predominantly sexual mode of transmission] Onset: 06-17-2022 Episodic Maintenance chemotherapy; radiotherapy (7 sources) Patient encounter status; Translations: [Encounter for antineoplastic immunotherapy] 07-19-2021 Chronic Melanomas of skin (14 sources) Malignant melanoma of lower leg; Translations: [Malignant melanoma of skin of lower limb, including hip] Onset: 04-14-2023 07-19-2021 Chronic Menstrual disorders (12 sources) Irregular menstruation, unspecified; Translations: [Amenorrhea, unspecified] Onset: 02-27-2023 Chronic Other nervous system disorders (4 sources) Chiari malformation type I; Translations: [Compression of brain] 07-19-2021 Chronic Other nervous system disorders (3 sources) Compression of brain; 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 Other and delivery including normal (4 sources) Encounter for supervision of normal , [...] Translations: [9 WEEKS GESTATION OF ] Onset: 05-03-2023 Episodic Residual codes; unclassified (1 source) H/O: miscarriage; Translations: [Personal history of other complications of , childbirth and the puerperium] 08-26-2024 Episodic Skin and subcutaneous tissue infections (4 sources) Cellulitis; Translations: [Cellulitis and abscess of unspecified sites] Episodic Unclassified (1 source) Malignant melanoma of right lower limb, including hip; Translations: [Malignant melanoma of right lower limb, including hip] Onset: 08-19-2023 Past or Other Problems Problem Classification Problem Date Documented Date Episodic/Chronic Acute and chronic tonsillitis (2 sources) Acute tonsillitis; Translations: [Acute tonsillitis due to other specified organisms] Onset: 02-22-2024 02-22-2024 Episodic Deficiency and other anemia (2 sources) Anemia; Translations: [Anemia, unspecified] Onset: 04-14-2023 04-14-2023 Episodic Other female genital disorders (4 sources) Other specified noninflammatory disorders of vagina; Translations: [OTH SPEC NONINFLAMMATORY D/O VAGINA] Onset: 06-16-2022 Episodic Other female genital disorders (2 sources) Polyp of cervix; Translations: [Polyp of cervix uteri] Onset: 04-14-2023 04-14-2023 Episodic Other female genital disorders (2 sources) Disorder of female genital system; Translations: [Unspecified condition associated with female genital organs and menstrual cycle] Onset: 04-14-2023 04-14-2023 Episodic Other female genital disorders (2 sources) Noninflammatory disorder of the vagina; Translations: [Other specified noninflammatory disorders of vagina] Onset: 04-14-2023 04-14-2023 Episodic Other lower respiratory disease (2 sources) Solitary nodule of lung; Translations: [Solitary pulmonary nodule] Onset: 04-14-2023 04-14-2023 Episodic Otitis media and related conditions (2 sources) Acute suppurative otitis media without spontaneous rupture of ear drum; Translations: [Acute suppurative otitis media without spontaneous rupture of ear drum, right ear] Onset: 02-22-2024 02-22-2024 Episodic Results Test Name Value Interpretation Reference Range Facility HCG ( test) Ql (U)o n 08-26-2024 Interpretation and review of laboratory results Abnormal [facility] Preg Test, Ur Positive [facility] Urinalysis macro (dipstick) panel (U)on 08-26-2024 Bilirubin, UA Negative Negative - 4(70) +++ mg/dL [facility] Blood, UA Negative Negative - 50 Naveed/mcL [facility] Clarity, UA Clear [facility] Color, UA Yellow [facility] Glucose, UA Negative Negative - 1999(110) ++++ mg/dL [facility] Interpretation and review of laboratory results Normal [facility] Ketones, UA Negative Negative - 160(16) ++++ mg/dL [facility] Leukocytes, UA Negative Negative - 500+++ José Luis/mcL [facility] Nitrite, UA Negative Negative - Positive [facility] pH, UA 7.0 5 - 9 [facility] Protein, UA Negative Negative - 1999(20) ++++ mg/dL [facility] Spec Grav, UA 1.025 1 - 1.03 [facility] Urobilinogen, UA 0.2 0.2 - 12 mg/dL [facility] Complete Blood Count Auto Di ffon 08-17-2023 Basophils (Bld) [#/Vol] 0.0 10*3/uL Normal 0.0-0.2 [facility] Comment on above: Result Comment: PERF ORMED BY: [facility] [address] [place] [id number] [facility] [employer] RUSS DAVIS M.D. Performed By: #### C MP, TSH3, CBC, T4F, T3F ####[place] [id number] [place] [id number] [place] Basophils/100 WBC (Bld) 0.4 % Normal . [facility] Comment on above: Performed By: #### C MP, TSH3, CBC, T4F, T3F ####[facility] [place] [address] [place] Eosinophils (Bld) [#/Vol] 0.1 10*3/uL Normal 0.0-0.45 [facility] Comment on above: Performed By: #### C MP, TSH3, CBC, T4F, T3F ####[place] [address] [place] [id number] [place] Eosinophils/100 WBC (Bld) 0.6 % Normal . [facility] Comment on above: Performed By: #### C MP, TSH3, CBC, T4F, T3F ####[address] Erythrocyte distribution width (RBC) [Ratio] 13.3 % Normal 11.9-15.3 [facility] Comment on above: Performed By: #### C MP, TSH3, CBC, T4F, T3F ####[address] Hematocrit (Bld) [Volume fraction] 34.5 % Normal 34.0-46.4 [facility] Comment on above: Performed By: #### C MP, TSH3, CBC, T4F, T3F ####[address] Hemoglobin (Bld) [Mass/Vol] 11.6 g/dL Low 11.8-15.4 [facility] Comment on above: Performed By: #### C MP, TSH3, CBC, T4F, T3F ####[address] Lymphocytes (Bld) [#/Vol] 1.2 10*3/uL Normal 1.00-4.8 [facility] Comment on above: Performed By: #### C MP, TSH3, CBC, T4F, T3F ####[address] Lymphocytes/100 WBC (Bld) 12.2 % Normal . [facility] Comment on above: Performed By: #### C MP, TSH3, CBC, T4F, T3F ####[address] MCH (RBC) [Entitic mass] 30.5 pg Normal 24.7-34.3 [facility] Comment on above: Performed By: #### C MP, TSH3, CBC, T4F, T3F ####[address] MCV (RBC) [Entitic vol] 90.4 fL Normal 80-100 [facility] Comment on above: Performed By: #### C MP, TSH3, CBC, T4F, T3F ####[address] Mean Corpuscular HGB Conc 33.8 g/dL Normal 32.0-35.0 [facility] Comment on above: Performed By: #### C MP, TSH3, CBC, T4F, T3F ####[address] Monocytes (Bld) [#/Vol] 0.6 10*3/uL Normal 0.0-0.8 [facility] Comment on above: Performed By: #### C MP, TSH3, CBC, T4F, T3F ####[address] Monocytes/100 WBC (Bld) 6.5 % Normal . F [facility] Comment on above: Performed By: #### C MP, TSH3, CBC, T4F, T3F ####[address] Neutrophils (Bld) [#/Vol] 7.8 10*3/uL High 1.8-7.7 [facility] Comment on above: Performed By: #### C MP, TSH3, CBC, T4F, T3F ####[address] Neutrophils/100 WBC (Bld) 80.3 % Normal . [facility] Comment on above: Performed By: #### C MP, TSH3, CBC, T4F, T3F ####[address] NRBC% 0.0 /100{WBC} Normal 0-0.5 [facility] Comment on above: Performed By: #### C MP, TSH3, CBC, T4F, T3F ####[address] Platelet mean volume (Bld) [Entitic vol] 7.8 fL Normal 6.3-10.7 [facility] Comment on above: Performed By: #### C MP, TSH3, CBC, T4F, T3F ####[address] Platelets (Bld) [#/Vol] 237 10*3/uL Normal 150-450 [facility] Comment on above: Performed By: #### C MP, TSH3, CBC, T4F, T3F ####[address] RBC (Bld) [#/Vol] 3.82 10*6/uL Normal 3.60-5.00 [facility] Comment on above: Performed By: #### C MP, TSH3, CBC, T4F, T3F ####[address] WBC (Bld) [#/Vol] 9.7 10*3/uL Normal 3.8-11.6 [facility] Comment on above: Performed By: #### C MP, TSH3, CBC, T4F, T3F ####[address] Comprehensive Metabolic Pane dustin 08-17-2023 Albumin [Mass/Vol] 3.3 g/dL Low 3.5-5.7 [facility] Comment on above: Performed By: #### C MP, TSH3, CBC, T4F, T3F ####[address] Albumin/Globulin [Mass ratio] 1.5 {ratio} Normal [facility] Comment on above: Performed By: #### C MP, TSH3, CBC, T4F, T3F ####[address] ALP [Catalytic activity/Vol] 92 U/L Normal 34-104 [facility] Comment on above: Performed By: #### C MP, TSH3, CBC, T4F, T3F ####[address] [place] [address] [place] ALT [Catalytic activity/Vol] 11 U/L Normal 7-52 [facility] Comment on above: Performed By: #### C MP, TSH3, CBC, T4F, T3F ####[place] [id number] [place] Anion gap [Moles/Vol] 9.4 mmol/L Normal 6.0-15.0 [facility] Comment on above: Performed By: #### C MP, TSH3, CBC, T4F, T3F ####[place] [id number] [place] AST [Catalytic activity/Vol] 16 U/L Normal 13-39 [facility] Comment on above: Performed By: #### C MP, TSH3, CBC, T4F, T3F ####[place] [id number] [place] Bilirubin [Mass/Vol] 0.3 mg/dL Normal 0.3-1.0 [facility] Comment on above: Performed By: #### C MP, TSH3, CBC, T4F, T3F ####[place] [id number] [place] Calcium [Mass/Vol] 8.5 mg/dL Low 8.6-10.3 [facility] Comment on above: Performed By: #### C MP, TSH3, CBC, T4F, T3F ####[place] [id number] [place] Chloride [Moles/Vol] 105 mmol/L Normal 98-107 [facility] Comment on above: Performed By: #### C MP, TSH3, CBC, T4F, T3F ####[place] [id number] [place] CO2 [Moles/Vol] 27.3 mmol/L Normal 21.0-31.0 [facility] Comment on above: Performed By: #### C MP, TSH3, CBC, T4F, T3F ####[place] [id number] [place] Creatinine [Mass/Vol] 0.65 mg/dL Normal 0.60-1.20 [facility] Comment on above: Performed By: #### C MP, TSH3, CBC, T4F, T3F ####[place] [address] [place] [address] [place] Creatinine Clr Calc Pharmacy 132.31 [facility] Comment on above: Performed By: #### C MP, TSH3, CBC, T4F, T3F ####[place] [address] [place] [address] [place] GFR/1.73 sq M.predicted MDRD (S/P/Bld) [Vol rate/Area] mL/min/{1.73_m2} [facility] Comment on above: Performed By: #### C MP, TSH3, CBC, T4F, T3F ####[place] [address] [place] [address] [place] Globulin (S) [Mass/Vol] 2.2 g/dL Normal [facility] Comment on above: Performed By: #### C MP, TSH3, CBC, T4F, T3F ####[address] [address] [place] Glucose [Mass/Vol] 93 mg/dL Normal 70-100 [facility] Comment on above: Result Comment: [facility] Glucose Reference Range is dependent on time and content of last meal. Glucose of more than 200 mg/dL in a nonstressed, ambulatory subject supports the diagnosis of Diabetes Mellitus. ADA recommended reference range Performed By: #### C MP, TSH3, CBC, T4F, T3F ####[address] [address] [place] Potassium [Moles/Vol] 3.7 mmol/L Normal 3.5-5.1 [facility] Comment on above: Performed By: #### C MP, TSH3, CBC, T4F, T3F ####[address] [address] [place] Protein [Mass/Vol] 5.5 g/dL Low 6.4-8.9 [facility] Comment on above: Performed By: #### C MP, TSH3, CBC, T4F, T3F ####[place] [id number] [place] Sodium [Moles/Vol] 138 mmol/L Normal 136-145 [facility] Comment on above: Performed By: #### C MP, TSH3, CBC, T4F, T3F ####[place] [address] [place] [id number] [place] Urea nitrogen [Mass/Vol] 9 mg/dL Normal 06-16 [facility] Comment on above: Performed By: #### C MP, TSH3, CBC, T4F, T3F ####[place] [id number] [place] Free T4 (Free Thyroxine)on 0 08-17-2023 Free T4 [Mass/Vol] 0.59 ng/dL Low 0.61-1.12 [facility] Comment on above: Performed By: #### C MP, TSH3, CBC, T4F, T3F ####[place] [id number] [place] Thyroid Stimulating Hormoneo n 08-17-2023 TSH Qn 2.02 m[IU]/L Normal 0.45-5.33 [facility] Comment on above: Result Comment: PERF ORMED BY: [facility] [address] [facility] [id number] [facility] [employer] RUSS DAVIS M.D. Performed By: #### C MP, TSH3, CBC, T4F, T3F ####[place] [id number] [place] Triiodothyronine (T3) Freeon 08-17-2023 Triiodothyronine (T3) Free 2.72 pg/mL Normal 2.50-3.90 [facility] Comment on above: Result Comment: PERF ORMED BY: [facility] [address] [facility] [place] [address] [employer] [employer] RUSS DAVIS M.D. Performed By: #### C MP, TSH3, CBC, T4F, T3F ####[facility] [address] [place] [id number] [place] US extremity nonvascularon 0 08-17-2023 [place] [address] Ultrasound Report Signed Patient: Ailyn Resendiz MR#: [id number] : 1995 Acct:[id number] Age/Sex: 28 / F ADM Date: 08/17/23 Loc: XT Room: Type: [facility] Attending Dr: Amanda Rosario MD [...] Thony Lopes M.D.08/17/2023 2:39 PM Dictation Location: [place] [address] Tech: Rivka Zhao Transcribed By: LEOPOLDO 08/17/23 143 Dictated By: Thony Lopes II, MD 08/17/23 143 Signed By: 08/17/23 143 Normal [facility] US extremity nonvascularon 0 05-27-2023 US extremity nonvascular [facility] Main [place] [id number] Ultrasound Report Signed Patient: Ailyn Resendiz MR#: [id number] : 1995 Acct:[id number] Age/Sex: 27 / F ADM Date: 05/27/23 Loc: XT [facility]: [facility] Dr: Amanda Rosario MD Ordering Provider: [...] the prior ultrasound study. Impression dictated by: Roni Pantoja Jr.ODavid05/27/2023 8:12 PM Dictation Location: [place] [address] Tech: Uma Quinteroemerald Transcribed By: LEOPOLDO 05/27/232011 Dictated By: Paresh Gilmore Jr, DO 05/27/232009 Signed By: 05/27/232011 Normal [facility] Adrenocorticotropic Hormone PLon 05-20-[address] 10.8 pg/mL Normal 7.2-63.3 [facility] Comment on above: Result Comment: ACTH reference interval for samples collected between 7 and 10 AM. Performed at: [facility] Lab[address] [id number] [employer]: Sai Smalls PhD, Phone: [phone] PERFORMED BY: [place] [address] [facility] [employer] RUSS DAVIS M.D. Performed By: #### C MP, TSH3, T4F, T3F, CBC #### [address] #### ACTH #### [facility] , Alanine aminotransferase [En zymatic activity/volume] in Serum or PlasmaOrdered By: Amanda Rosario on 05-20-2023 ALT [Catalytic activity/Vol] 9 U/L 7-52 [facility] Albumin [Mass/volume] in Ser um or Plasma by Bromocresol green (BCG) dye binding methoOrdered By: Amanda Rosario on 05-20-2023 Albumin BCG dye [Mass/Vol] 3.8 g/dL 3.5-5.7 [facility] Alkaline phosphatase [Enzyma tic activity/volume] in Serum or PlasmaOrdered By: Amanda Rosario on 05-20-2023 ALP [Catalytic activity/Vol] 52 U/L 34-104 [facility] Aspartate aminotransferase [ Enzymatic activity/volume] in Serum or PlasmaOrdered By: Amanda Rosario on 05-20-2023 AST [Catalytic activity/Vol] 14 U/L 13-39 [facility] Basophils Auto (Bld) [#/Vol] Ordered By: Amanda Rosario on 05-20-2023 Basophils (Bld) [#/Vol] 0.0 10*3/uL 0.0-0.2 [facility] Basophils/100 WBC Auto (Bld) Ordered By: Amanda Rosario on 05-20-2023 Basophils/100 WBC (Bld) 0.4 % . [facility] Bilirubin.total [Mass/volume ] in Serum or PlasmaOrdered By: Amanda Rosario on 05-20-2023 Bilirubin [Mass/Vol] 0.5 mg/dL 0.3-1.0 [facility] Calcium [Mass/volume] in Ser um or PlasmaOrdered By: Amanda Rosario on 05-20-2023 Calcium [Mass/Vol] 8.5 mg/dL 8.6-10.3 [facility] Carbon dioxide, total [Moles /volume] in Serum or PlasmaOrdered By: Amanda Rosario on 05-20-2023 CO2 [Moles/Vol] 26.1 mmol/L 21.0-31.0 [facility] Chloride [Moles/volume] in [place] or PlasmaOrdered By: Amanda Rosario on 05-20-2023 Chloride [Moles/Vol] 104 mmol/L 98-107 [facility] Complete Blood Count Auto Di ffon 05-20-2023 Basophils (Bld) [#/Vol] 0.0 10*3/uL Normal 0.0-0.2 [facility] Comment on above: Result Comment: PERF ORMED BY: [place] [address] [employer] [employer] RUSS DAVIS M.D. Performed By: #### C MP, TSH3, T4F, T3F, CBC #### [place] [address] [place] #### ACTH #### [facility] , Basophils/100 WBC (Bld) 0.4 % Normal . F [facility] Comment on above: Performed By: #### C MP, TSH3, T4F, T3F, CBC #### [address] #### ACTH #### [facility] , Eosinophils (Bld) [#/Vol] 0.1 10*3/uL Normal 0.0-0.45 [facility] Comment on above: Performed By: #### C MP, TSH3, T4F, T3F, CBC #### [facility] [address] [place] [address] [place] #### ACTH #### [facility] , Eosinophils/100 WBC (Bld) 0.6 % Normal . [facility] Comment on above: Performed By: #### C MP, TSH3, T4F, T3F, CBC #### [facility] [address] [place] [address] [place] #### ACTH #### [facility] , Erythrocyte distribution width (RBC) [Ratio] 13.1 % Normal 11.9-15.3 [facility] Comment on above: Performed By: #### C MP, TSH3, T4F, T3F, CBC #### [facility] [address] [place] [address] [place] #### ACTH #### [facility] , Hematocrit (Bld) [Volume fraction] 34.7 % Normal 34.0-46.4 [facility] Comment on above: Performed By: #### C MP, TSH3, T4F, T3F, CBC #### [facility] [address] [place] [address] [place] #### ACTH #### [facility] , Hemoglobin (Bld) [Mass/Vol] 12.0 g/dL Normal 11.8-15.4 [facility] Comment on above: Performed By: #### C MP, TSH3, T4F, T3F, CBC #### [place] [address] [place] #### ACTH #### [facility] , Lymphocytes (Bld) [#/Vol] 1.3 10*3/uL Normal 1.00-4.8 [facility] Comment on above: Performed By: #### C MP, TSH3, T4F, T3F, CBC #### [place] [address] [place] #### ACTH #### [facility] , Lymphocytes/100 WBC (Bld) 12.8 % Normal . [facility] Comment on above: Performed By: #### C MP, TSH3, T4F, T3F, CBC #### [place] [address] [place] #### ACTH #### [facility] , MCH (RBC) [Entitic mass] 31.5 pg Normal 24.7-34.3 [facility] Comment on above: Performed By: #### C MP, TSH3, T4F, T3F, CBC #### [place] [address] [place] #### ACTH #### [facility] , MCV (RBC) [Entitic vol] 91.1 fL Normal 80-100 F [facility] Comment on above: Performed By: #### C MP, TSH3, T4F, T3F, CBC #### [place] [address] [place] #### ACTH #### [facility] , Mean Corpuscular HGB Conc 34.6 g/dL Normal 32.0-35.0 [facility] Comment on above: Performed By: #### C MP, TSH3, T4F, T3F, CBC #### [facility] [address] [place] [address] [place] #### ACTH #### [facility] , Monocytes (Bld) [#/Vol] 0.7 10*3/uL Normal 0.0-0.8 [facility] Comment on above: Performed By: #### C MP, TSH3, T4F, T3F, CBC #### [facility] [address] [place] [address] [place] #### ACTH #### [facility] , Monocytes/100 WBC (Bld) 6.4 % Normal . [facility] Comment on above: Performed By: #### C MP, TSH3, T4F, T3F, CBC #### [facility] [address] [place] [address] [place] #### ACTH #### [facility] , Neutrophils (Bld) [#/Vol] 8.2 10*3/uL High 1.8-7.7 [facility] Comment on above: Performed By: #### C MP, TSH3, T4F, T3F, CBC #### [facility] [address] [place] [address] [place] #### ACTH #### [facility] , Neutrophils/100 WBC (Bld) 79.8 % Normal . [facility] Comment on above: Performed By: #### C MP, TSH3, T4F, T3F, CBC #### [facility] [address] [place] [address] [place] #### ACTH #### [facility] , NRBC% 0.2 /100{WBC} Normal 0-0.5 [facility] Comment on above: Performed By: #### C MP, TSH3, T4F, T3F, CBC #### [facility] [address] [place] [address] [place] #### ACTH #### [facility] , Platelet mean volume (Bld) [Entitic vol] 7.4 fL Normal 6.3-10.7 [facility] Comment on above: Performed By: #### C MP, TSH3, T4F, T3F, CBC #### [facility] [address] [place] [address] [place] #### ACTH #### [facility] , Platelets (Bld) [#/Vol] 256 10*3/uL Normal 150-450 [facility] Comment on above: Performed By: #### C MP, TSH3, T4F, T3F, CBC #### [address] #### ACTH #### [facility] , RBC (Bld) [#/Vol] 3.81 10*6/uL Normal 3.60-5.00 [facility] Comment on above: Performed By: #### C MP, TSH3, T4F, T3F, CBC #### [facility] [address] [place] [address] [place] #### ACTH #### [facility] , WBC (Bld) [#/Vol] 10.3 10*3/uL Normal 3.8-11.6 [facility] Comment on above: Performed By: #### C MP, TSH3, T4F, T3F, CBC #### [facility] [address] [place] [address] [place] #### ACTH #### [facility] , Comprehensive Metabolic Pane dustin 05-20-2023 Albumin [Mass/Vol] 3.8 g/dL Normal 3.5-5.7 [facility] Comment on above: Performed By: #### C MP, TSH3, T4F, T3F, CBC #### [address] [address] [place] #### ACTH #### [facility] , Albumin/Globulin [Mass ratio] 1.7 {ratio} Normal [facility] Comment on above: Performed By: #### C MP, TSH3, T4F, T3F, CBC #### [facility] [address] [place] [address] #### ACTH #### [facility] , ALP [Catalytic activity/Vol] 52 U/L Normal 34-104 [facility] Comment on above: Performed By: #### C MP, TSH3, T4F, T3F, CBC #### [facility] [address] [place] [address] #### ACTH #### [facility] , ALT [Catalytic activity/Vol] 9 U/L Normal 7-52 [facility] Comment on above: Performed By: #### C MP, TSH3, T4F, T3F, CBC #### [facility] [address] [place] [address] #### ACTH #### [facility] , Anion gap [Moles/Vol] 10.1 mmol/L Normal 6.0-15.0 [facility] Comment on above: Performed By: #### C MP, TSH3, T4F, T3F, CBC #### [facility] [address] [place] [address] [place] #### ACTH #### [facility] , AST [Catalytic activity/Vol] 14 U/L Normal 13-39 [facility] Comment on above: Performed By: #### C MP, TSH3, T4F, T3F, CBC #### [facility] [address] [place] [address] [place] #### ACTH #### [facility] , Bilirubin [Mass/Vol] 0.5 mg/dL Normal 0.3-1.0 [facility] Comment on above: Performed By: #### C MP, TSH3, T4F, T3F, CBC #### [facility] [address] [place] [address] [place] #### ACTH #### [facility] , Calcium [Mass/Vol] 8.5 mg/dL Low 8.6-10.3 [facility] Comment on above: Performed By: #### C MP, TSH3, T4F, T3F, CBC #### [facility] [address] [place] [address] [place] #### ACTH #### [facility] , Chloride [Moles/Vol] 104 mmol/L Normal 98-107 [facility] Comment on above: Performed By: #### C MP, TSH3, T4F, T3F, CBC #### [facility] [address] [place] [address] #### ACTH #### [facility] , CO2 [Moles/Vol] 26.1 mmol/L Normal 21.0-31.0 [facility] Comment on above: Performed By: #### C MP, TSH3, T4F, T3F, CBC #### [facility] [address] [place] [address] [place] #### ACTH #### [facility] , Creatinine [Mass/Vol] 0.56 mg/dL Low 0.60-1.20 [facility] Comment on above: Performed By: #### C MP, TSH3, T4F, T3F, CBC #### [facility] [address] [place] [address] [place] #### ACTH #### [facility] , Creatinine Clr Calc Pharmacy 154.92 [facility] Comment on above: Performed By: #### C MP, TSH3, T4F, T3F, CBC #### [facility] [address] [place] [address] [place] #### ACTH #### [facility] , GFR/1.73 sq M.predicted MDRD (S/P/Bld) [Vol rate/Area] mL/min/{1.73_m2} Normal [facility] Comment on above: Performed By: #### C MP, TSH3, T4F, T3F, CBC #### [facility] [address] [place] [address] [place] #### ACTH #### [facility] , Globulin (S) [Mass/Vol] 2.3 g/dL Normal [facility] Comment on above: Performed By: #### C MP, TSH3, T4F, T3F, CBC #### [facility] [address] [place] [address] [place] #### ACTH #### [facility] , Glucose [Mass/Vol] 72 mg/dL Normal 70-100 [facility] Comment on above: Result Comment: [facility] Glucose Reference Range is dependent on time and content of last meal. Glucose of more than 200 mg/dL in a nonstressed, ambulatory subject supports the diagnosis of Diabetes Mellitus. ADA recommended reference range Performed By: #### C MP, TSH3, T4F, T3F, CBC #### [facility] [address] [place] [address] [place] #### ACTH #### [facility] , Potassium [Moles/Vol] 4.2 mmol/L Normal 3.5-5.1 [facility] Comment on above: Performed By: #### C MP, TSH3, T4F, T3F, CBC #### [facility] [address] [place] [address] [place] #### ACTH #### [facility] , Protein [Mass/Vol] 6.1 g/dL Low 6.4-8.9 [facility] Comment on above: Performed By: #### C MP, TSH3, T4F, T3F, CBC #### [facility] [address] [place] [address] [place] #### ACTH #### [facility] , Sodium [Moles/Vol] 136 mmol/L Normal 136-145 [facility] Comment on above: Performed By: #### C MP, TSH3, T4F, T3F, CBC #### [facility] [address] [place] [address] [place] #### ACTH #### [facility] , Urea nitrogen [Mass/Vol] 10 mg/dL Normal 7-25 [facility] Comment on above: Performed By: #### C MP, TSH3, T4F, T3F, CBC #### [facility] [address] [place] [address] [place] #### ACTH #### [facility] , Creatinine [Mass/volume] in Serum or PlasmaOrdered By: Amanda Rosario on 05-20-2023 Creatinine [Mass/Vol] 0.56 mg/dL 0.60-1.20 [facility] Eosinophils Auto (Bld) [#/Vo l]Ordered By: Amanda Rosario on 05-20-2023 Eosinophils (Bld) [#/Vol] 0.1 10*3/uL 0.0-0.45 [facility] Eosinophils/100 WBC Auto (Bl d)Ordered By: Amanda Rosario on 05-20-2023 Eosinophils/100 WBC (Bld) 0.6 % . [facility] Erythrocyte distribution wid th Auto (RBC) [Ratio]Ordered By: Amanda Rosario on 05-20-2023 Erythrocyte distribution width (RBC) [Ratio] 13.1 % 11.9-15.3 [facility] Free T4 (Free Thyroxine)on 0 05-20-2023 Free T4 [Mass/Vol] 0.86 ng/dL Normal 0.61-1.12 [facility] Comment on above: Performed By: #### C MP, TSH3, T4F, T3F, CBC #### [facility] [address] [place] [address] [place] #### ACTH #### [facility] , Globulin Calc (S) [Mass/Vol] Ordered By: Amanda Rosario on 05-20-2023 Globulin (S) [Mass/Vol] 2.3 g/dL [facility] Glucose [Mass/volume] in Ser um or PlasmaOrdered By: Amanda Rosario on 05-20-2023 Glucose [Mass/Vol] 72 mg/dL 70-100 [facility] Comment on above: ADA recommended refe rence rangeRandom Glucose Reference Range is dependent on time and content of last meal. Glucose of more than 200 mg/dL in a nonstressed, ambulatory subject supports the diagnosis of Diabetes Mellitus. Hematocrit Auto (Bld) [Volum e fraction]Ordered By: Amanda Rsoario on 05-20-2023 Hematocrit (Bld) [Volume fraction] 34.7 % 34.0-46.4 [facility] Hemoglobin [Mass/volume] in BloodOrdered By: mAanda Rosario on 05-20-2023 Hemoglobin (Bld) [Mass/Vol] 12.0 g/dL 11.8-15.4 [facility] Leukocytes [#/volume] correc yanira for nucleated erythrocytes in Blood by Automated counOrdered By: Amanda Rosario on 05-20-2023 WBC corrected for nucl RBC Auto (Bld) [#/Vol] 10.3 10*3/uL 3.8-11.6 [facility] Lymphocytes Auto (Bld) [#/Vo l]Ordered By: Amanda Rosario on 05-20-2023 Lymphocytes (Bld) [#/Vol] 1.3 10*3/uL 1.00-4.8 [facility] Lymphocytes/100 WBC Auto (Bl d)Ordered By: Amanda Rosario on 05-20-2023 Lymphocytes/100 WBC (Bld) 12.8 % . [facility] MCH Auto (RBC) [Entitic mass ]Ordered By: Amanda Rosario on 05-20-2023 MCH (RBC) [Entitic mass] 31.5 pg 24.7-34.3 [facility] MCHC Auto (RBC) [Mass/Vol]Or dered By: Amanda Rosario on 05-20-2023 MCHC (RBC) [Mass/Vol] 34.6 g/dL 32.0-35.0 [facility] MCV Auto (RBC) [Entitic vol] Ordered By: Amanda Rosario on 05-20-2023 MCV (RBC) [Entitic vol] 91.1 fL 80-100 [facility] Monocytes Auto (Bld) [#/Vol] Ordered By: Amanda Rosario on 05-20-2023 Monocytes (Bld) [#/Vol] 0.7 10*3/uL 0.0-0.8 [facility] Monocytes/100 WBC Auto (Bld) Ordered By: Amanda Rosario on 05-20-2023 Monocytes/100 WBC (Bld) 6.4 % . [facility] Neutrophils Auto (Bld) [#/Vo l]Ordered By: Amanda Rosario on 05-20-2023 Neutrophils (Bld) [#/Vol] 8.2 10*3/uL 1.8-7.7 [facility] Neutrophils/100 WBC Auto (Bl d)Ordered By: Amanda Rosario on 05-20-2023 Neutrophils/100 WBC (Bld) 79.8 % . [facility] No Panel InformationOrdered By: Amanda Rosario on 05-20-2023 Adrenocorticotropic Hormone 10.8 pg/mL 7.2-63.3 [facility] Comment on above: ACTH reference inter cruz for samples collected between 7 and10 AM.Performed at: [facility] [address] [id number] Director: Sai Smalls PhD, Phone: [phone] Estimated GFR (CKD-EPI) > 60.0 mL/Min [facility] Creatinine Clearance (Chem 154.92 [facility] Nucleated erythrocytes [Pres ence] in Blood by Automated countOrdered By: Amanda Rosario on 05-20-2023 Nucleated RBC Auto Ql (Bld) 0.2 /100{WBC} 0-0.5 [facility] Platelet mean volume Auto (B ld) [Entitic vol]Ordered By: Amanda Rosario on 05-20-2023 Platelet mean volume (Bld) [Entitic vol] 7.4 fL 6.3-10.7 [facility] Platelets Auto (Bld) [#/Vol] Ordered By: Amanda Rosario on 05-20-2023 Platelets (Bld) [#/Vol] 256 10*3/uL 150-450 [facility] Potassium [Moles/volume] in Serum or PlasmaOrdered By: Amanda Rosario on 05-20-2023 Potassium [Moles/Vol] 4.2 mmol/L 3.5-5.1 [facility] Protein [Mass/volume] in Ser um or PlasmaOrdered By: Amanda Rosario on 05-20-2023 Protein [Mass/Vol] 6.1 g/dL 6.4-8.9 [facility] RBC Auto (Bld) [#/Vol]Ordere d By: Amanda Rosario on 05-20-2023 RBC (Bld) [#/Vol] 3.81 10*6/uL 3.60-5.00 [facility] Serum or plasma albumin/glob ulin mass ratioOrdered By: Amanda Rosario on 05-20-2023 Albumin/Globulin [Mass ratio] 1.7 {ratio} [facility] Serum or plasma anion gap de terminationOrdered By: Amanda Rosario on 05-20-2023 Anion gap [Moles/Vol] 10.1 mmol/L 6.0-15.0 [facility] Sodium [Moles/volume] in Ser um or PlasmaOrdered By: Amanda Rosario on 05-20-2023 Sodium [Moles/Vol] 136 mmol/L 136-145 [facility] Thyroid Stimulating Hormoneo n 05-20-2023 TSH Qn 1.31 m[IU]/L Normal 0.45-5.33 [facility] Comment on above: Result Comment: PERF ORMED BY: [place] [address] [employer] RUSS DAVIS M.D. Performed By: #### C MP, TSH3, T4F, T3F, CBC #### [facility] [address] [place] [address] [place] #### ACTH #### [facility] , Thyrotropin [Units/volume] i n Serum or PlasmaOrdered By: Amanda Rosario on 05-20-2023 TSH Qn 1.31 m[IU]/L 0.45-5.33 [facility] Thyroxine (T4) free [Mass/vo lume] in Serum or PlasmaOrdered By: Amanda Rosario on 05-20-2023 Free T4 [Mass/Vol] 0.86 ng/dL 0.61-1.12 [facility] Triiodothyronine (T3) Freeon 05-20-2023 Triiodothyronine (T3) Free 2.91 pg/mL Normal 2.50-3.90 [facility] Comment on above: Result Comment: PERF ORMED BY: [place] [address] [facility] [employer] RUSS DAVIS M.D. Performed By: #### C MP, TSH3, T4F, T3F, CBC #### [facility] [address] #### ACTH #### [facility] , Triiodothyronine (T3) Free [ Mass/volume] in Serum or PlasmaOrdered By: Amanda Rosario on 05-20-2023 Free T3 [Mass/Vol] 2.91 pg/mL 2.50-3.90 [facility] Urea nitrogen [Mass/volume] in Serum or PlasmaOrdered By: Amanda Rosario on 05-20-2023 Urea nitrogen [Mass/Vol] 10 mg/dL 7-25 [facility] WBC Auto (Bld) [#/Vol]Ordere d By: Amanda Rosario on 05-20-2023 WBC (Bld) [#/Vol] 10.3 10*3/uL 3.8-11.6 [facility] HEP B SURFACE ANTIGEN SCREEN on 04-08-2023 HBsAg Screen Negative Normal Negative [facility] Comment on above: Performed By: #### T SH #### [facility] [address] [address] [address] Beth Pineda HEPATITIS C VIRUS AB W/ REFL EX QUANTon 04-08-2023 HCV AB Non-Reactive Normal Non Reactive [facility] Comment on above: Performed By: #### H CVPCRR #### [facility] [id number] Beth Pineda HIV 1 AND 2 WITH REFLEXon HIV Screen 4th Generation wRfx Non-Reactive Normal Non Reactive [facility] Comment on above: Result Comment: HIV Negative HIV-1/HIV-2 antibodies and HIV-1 p24 antigen were NOT detected. There is no laboratory evidence of HIV infection. Performed By: #### H IV12 #### [facility] [address] [place] [address] Dr. Beth Pineda RPR QUANTon 04-08-2023 Rapid Plasma Reagin, Quant Non-Reactive Normal NonRea<1:1 [facility] Comment on above: Result Comment: Plea Note: This test does not meet current guidelines for screening and diagnosis of syphilis. This test is intended for following treatment response in patients being treated for syphilis infection. To screen for syphilis infection, a reflex cascade that includes both RPR and a treponema-specific assay should be utilized, such as Treponema pallidum (Syphilis) Screening [place] (332111) or Rapid Plasma Reagin (RPR) Test With Reflex to Quantitative RPR and Confirmatory Treponema pallidum Antibodies (120099). Performed By: #### R PRQ #### [facility] [address] [place] [address] Dr. Beth Pineda RUBELLA AB IGGon 04-08-2023 Rubella Antibodies, IgG 1.35 index Normal Immu ne >0.99 [facility] Comment on above: Result Comment: Non- immune <0.90 Equivocal 0.90 - 0.99 Immune >0.99 Performed By: #### R UBIGG #### [facility] [address] [place] [address] Dr. Beth Pineda BOX TEST SENT OUTon 04-07-20 SENT TO REF LAB 04/07/23 Normal [facility] Comment on above: Performed By: #### B OX #### [facility] [address] [place] [address] Dr. Beth Pineda CBC AUTO DIFFon 04-07-2023 BASO # 0.1 103/ul Normal 0.0-0.1 [facility] Comment on above: Performed By: #### C BC #### [facility] [address] [place] [address] Dr. Beth Pineda Basophils/100 WBC (Bld) 0.7 % Normal 0.2-2.0 [place] Comment on above: Performed By: #### C BC #### [facility] [address] [address] [address] Beth Pineda EO # 0.1 103/ul Normal 0.0-0.7 [facility] Comment on above: Performed By: #### C BC #### [facility] [address] [place] [address] Dr. Beth Pineda Eosinophils/100 WBC (Bld) 1.1 % Normal 0.9-7.0 [facility] Comment on above: Performed By: #### C BC #### [facility] [address] [place] [address] Dr. Beth Pineda Erythrocyte distribution width (RBC) [Ratio] 12.5 % Normal 11.0-15.0 [facility] Comment on above: Performed By: #### C BC #### [facility] [address] [place] [address] Dr. Beth Pineda Hematocrit (Bld) [Volume fraction] 37.8 % Normal 36.0-48.0 [facility] Comment on above: Performed By: #### C BC #### [facility] [address] [place] [address] Dr. Beth Pineda Hemoglobin (Bld) [Mass/Vol] 13.1 g/dL Normal 12.0-16.0 [facility] Comment on above: Performed By: #### C BC #### [facility] [address] [place] [address] Dr. Beth Pineda IG # 0.02 10e3/ul Normal 0.00-0.03 [facility] Comment on above: Performed By: #### C BC #### [facility] [address] [place] [address] Dr. Beth Pineda IG % 0.3 % Normal 0.0-0.5 [facility] Comment on above: Performed By: #### C BC #### [facility] [address] [place] [address] Dr. Beth Pineda LYMPH # 1.5 103/ul Normal 1.2-3.8 [facility] Comment on above: Performed By: #### C BC #### [facility] [address] [place] [address] Dr. Beth Pineda Lymphocytes/100 WBC (Bld) 19.9 % Critically low 20.5-60.0 [facility] Comment on above: Performed By: #### C BC #### [facility] [address] [place] [address] Dr. Beth Pineda MANUAL DIFF REQ NO Normal [facility] Comment on above: Performed By: #### C BC #### [facility] [address] [place] [address] Dr. Beth Pineda MCH (RBC) [Entitic mass] 31.3 pg Normal 26.7-34.0 [facility] Comment on above: Performed By: #### C BC #### [facility] [address] [place] [address] Dr. Beth Pineda MCHC (RBC) [Mass/Vol] 34.7 g/dL Normal 29.9-35.2 [facility] Comment on above: Performed By: #### C BC #### [facility] [address] [place] [address] Dr. Beth Pineda MCV (RBC) [Entitic vol] 90.2 fL Normal 81.0-99.0 [place] Comment on above: Performed By: #### C BC #### [facility] [address] [place] [address] Dr. Beth Pineda MONO # 0.5 103/ul Normal 0.3-0.8 [facility] Comment on above: Performed By: #### C BC #### [facility] [address] [place] [address] Dr. Beth Pineda Monocytes/100 WBC (Bld) 6.1 % Normal 1.7-12.0 [place] Comment on above: Performed By: #### C BC #### [facility] [address] [place] [address] Dr. Beth Pineda NEUT # 5.4 103/ul Normal 1.4-6.5 [facility] Comment on above: Performed By: #### C BC #### [facility] [address] [address] [address] Beth Pineda Neutrophils/100 WBC (Bld) 71.9 % Normal 43.0-75.0 [facility] Comment on above: Performed By: #### C BC #### [facility] [address] [address] [address] Beth Pineda Platelet mean volume (Bld) [Entitic vol] 8.9 fL Critically low 9.5-13.5 [facility] Comment on above: Performed By: #### C BC #### [facility] [address] [place] [address] Dr. Beth Pineda PLT 272 103/ul Normal 150-450 [facility] Comment on above: Performed By: #### C BC #### [facility] [address] [place] [address] Dr. Beth Pineda RBC 4.19 106/ul Critically low 4.20-5.40 [facility] Comment on above: Performed By: #### C BC #### [facility] [address] [place] [address] Dr. Beth Pineda WBC 7.5 103/ul Normal 4.0-11.0 [facility] Comment on above: Performed By: #### C BC #### [facility] [address] [place] [address] Dr. Beth Pineda CULTURE URINEon 04-07-2023 CULTURE URINE Culture Observations : NO GROWTH. Normal [facility] Comment on above: Performed By: #### T SH #### [facility] [address] [place] [address] Dr. Beth Pineda GLYCOHEMOGLOBIN A1Con 2022 ADA RECOMMENDATION SEE BELOW Normal [facility] Comment on above: Result Comment: ADA RECOMMENDED LIMIT 4.0 - 6.0 ADA THERAPEUTIC TARGET < 7.0 ACTION SUGGESTED > 7.0 Performed By: #### A 1C #### [facility] [address] [place] [address] Dr. Beth Pineda Glucose [Mass/Vol] 82 mg/dL Normal [facility] Comment on above: Performed By: #### A 1C #### [facility] [address] [address] [address] Beth Pineda HbA1c (Bld) [Mass fraction] 4.5 % Normal 4.5-6.2 [facility] Comment on above: Performed By: #### A 1C #### [facility] [address] [address] [address] Beth Pineda TSHon 04-07-2023 TSH 2.191 uIU/mL Normal 0.358-3.740 [facility] Comment on above: Performed By: #### T SH #### [facility] [address] [address] [address] Beth Pineda TYPE AND SCREENon 04-07-2023 TYPE AND SCREEN Negative Normal [facility] Comment on above: Performed By: #### T SH #### [facility] [address] [place] [address] Dr. Beth Pineda US PREG TVon 03-13-2023 [...] MORE [place] Date: 2023-03-13 09:37 Normal [facility] PREG QUANT HCGon 02-27-2023 HCG QUANT 20984 mIU/mL Normal [facility] Comment on above: Performed By: #### A 1C #### [facility] [address] [place] [address] Dr. Beth Pineda HCG RANGE SEE BELOW Normal [facility] Comment on above: Result Comment: 5-50 0.2-1 WEEK 50-500 1-2 WEEKS 100-5,000 2-3 WEEKS 500-10,000 3-4 WEEKS 1,000-50,000 4-5 WEEKS 10,000-100,000 5-6 WEEKS 15,000-200,000 6-8 WEEKS 10,000-100,000 2-3 MONTHS Performed By: #### A 1C #### [facility] [address] [place] [address] Dr. Beth Pineda PREG QUANT HCGon 02-11-2023 HCG QUANT 57 mIU/mL Normal [facility] Comment on above: Performed By: #### A 1C #### [facility] [address] [place] [address] Dr. Beth Pineda HCG RANGE SEE BELOW [facility] Comment on above: Result Comment: 5-50 0.2-1 WEEK 50-500 1-2 WEEKS 100-5,000 2-3 WEEKS 500-10,000 3-4 WEEKS 1,000-50,000 4-5 WEEKS 10,000-100,000 5-6 WEEKS 15,000-200,000 6-8 WEEKS 10,000-100,000 2-3 MONTHS Performed By: #### A 1C #### [facility] [address] [place] [address] Dr. Beth Pineda PREG QUANT HCGon 02-09-2023 HCG QUANT 14 mIU/mL Normal [facility] Comment on above: Performed By: #### P REGQNT #### [facility] [address] [place] [address] Dr. Beth Pineda HCG RANGE SEE BELOW Normal [facility] Comment on above: Result Comment: 5-50 0.2-1 WEEK 50-500 1-2 WEEKS 100-5,000 2-3 WEEKS 500-10,000 3-4 WEEKS 1,000-50,000 4-5 WEEKS 10,000-100,000 5-6 WEEKS 15,000-200,000 6-8 WEEKS 10,000-100,000 2-3 MONTHS Performed By: #### P REGQNT #### [facility] [address] [place] [address] Dr. Beth Pineda ANTI-MULLERIAN HORMONEon Anti-Mullerian Hormone (AMH) 12.5 ng/mL Normal [facility] Comment on above: Result Comment: For assays employing antibodies, the possibility exists for interference by heterophile antibodies in the samples.1 1.Tanja Rendon Interferences in Immunoassays - still a threat. Clin. Chem. 2000; 46: 4007-7176. This test was developed and its performance characteristics determined by [employer]. It has not been cleared or approved by the Food and Drug Administration. Reference Range: Females 20 - 25y: 1.23 - 11.51 Median 4.70 AMH concentrations of >= 1.06 ng/mL is correlated with a better response to ovarian stimulation, produced more retrievable oocytes and higher odds of live according to Erikaer et al. Fertility and Sterility. 2010: 94:6464-9733. The current AMH test method correlates with [...] tumor. Performed By: #### T SH #### [facility] [address] [address] [address] Beth Pineda PAP ACOG PANEL 2: 21 to 31on 01-20-[address] [facility] Comment on above: Performed By: #### T SH #### [facility] [address] [address] [address] Beth Pineda Age Gdln ACOG Testing - [facility] Comment on above: Performed By: #### T SH #### [facility] [address] [address] [address] Beth Pineda DIAGNOSIS: Comment [facility] Comment on above: Result Comment: NEGA TIVE FOR INTRAEPITHELIAL LESION OR MALIGNANCY. Performed By: #### T SH #### [facility] [address] [address] [address] Beth Pineda Methodology: Comment [facility] Comment on above: Result Comment: This liquid based ThinPrep(R) pap test was screened with the use of an image guided system. Performed By: #### T SH #### [facility] [address] [place] [address] Dr. Beth Pineda Note: Comment Normal [facility] Comment on above: Result Comment: The Pap smear is a screening test designed to aid in the detection of premalignant and malignant conditions of the uterine cervix. It is not a diagnostic procedure and should not be used as the sole means of detecting cervical cancer. Both false-positive and false-negative reports do occur. . Performed By: #### T SH #### [facility] [address] [place] [address] Dr. Beth Pineda Performed by: Comment Normal [facility] Comment on above: Result Comment: Pato Gonzalez, Psychotherapist (ASCP) Performed By: #### T SH #### [facility] [address] [place] [address] Dr. Beth Pineda Reflex Criteria: Comment Normal [facility] Comment on above: Result Comment: The HPV DNA reflex criteria were not met with this specimen result therefore, no HPV testing was performed. . Performed By: #### T SH #### [facility] [address] [place] [address] Dr. Beth Pineda Specimen adequacy: Comment Normal [facility] Comment on above: Result Comment: Sati sfactory for evaluation. Endocervical and/or squamous metaplastic cells (endocervical component) are present. Performed By: #### T SH #### [facility] [address] [place] [address] Dr. Beth Pineda Albumin [Mass/volume] in Ser um or PlasmaOrdered By: Amanda Rosario on 01-09-2023 Albumin [Mass/Vol] 4.3 g/dL 3.2-5.5 [facility] Alkaline phosphatase [Enzyma tic activity/volume] in Serum or PlasmaOrdered By: Amanda Rosario on 01-09-2023 ALP [Catalytic activity/Vol] 54 U/L 32-92 [facility] Aspartate aminotransferase [ Enzymatic activity/volume] in Serum or PlasmaOrdered By: Amanda Rosario on 01-09-2023 AST [Catalytic activity/Vol] 21 U/L 10-42 [facility] Basophils Auto (Bld) [#/Vol] Ordered By: Amanda Rosario on 01-09-2023 Basophils (Bld) [#/Vol] 0.0 10*3/uL 0.0-0.2 [facility] Basophils/100 WBC Auto (Bld) Ordered By: Amanda Rosario on 01-09-2023 Basophils/100 WBC (Bld) 0.7 % . F [facility] Bilirubin.total [Mass/volume ] in Serum or PlasmaOrdered By: Amanda Rosario on 01-09-2023 Bilirubin [Mass/Vol] 0.7 mg/dL 0.3-1.[address] [facility] [address] biopsyOrdered By: Amanda Nino se on 01-09-2023 Transferrin [Mass/Vol] 265 mg/dL 180-380 [facility] Calcium [Mass/volume] in Ser um or PlasmaOrdered By: Amanda Rosario on 01-09-2023 Calcium [Mass/Vol] 9.6 mg/dL 8.2-10.2 [facility] Carbon dioxide, total [Moles /volume] in Serum or PlasmaOrdered By: Amanda Rosario on 01-09-2023 CO2 [Moles/Vol] 27.2 mmol/L 22.0-30.0 [facility] Chloride [Moles/volume] in [place] or PlasmaOrdered By: Amanda Rosario on 01-09-2023 Chloride [Moles/Vol] 104 mmol/L 95-114 [facility] Complete Blood Count Auto Di ffon 01-09-2023 Basophils (Bld) [#/Vol] 0.0 10*3/uL Normal 0.0-0.2 [facility] Comment on above: Result Comment: PERF ORMED BY: [facility] [address] [place] [address] [facility] [employer] RUSS DAVIS M.D. Performed By: #### C MP, FE and TIBC, CBC, EFRAIN ####[facility] [id number] [place] [address] [place] Basophils/100 WBC (Bld) 0.7 % Normal . F [facility] Comment on above: Performed By: #### C MP, FE and TIBC, CBC, EFRAIN ####[address] Eosinophils (Bld) [#/Vol] 0.1 10*3/uL Normal 0.0-0.45 [facility] Comment on above: Performed By: #### C MP, FE and TIBC, CBC, EFRAIN ####[address] Eosinophils/100 WBC (Bld) 1.3 % Normal . [facility] Comment on above: Performed By: #### C MP, FE and TIBC, CBC, EFRAIN ####[address] Erythrocyte distribution width (RBC) [Ratio] 13.1 % Normal 11.9-15.3 [facility] Comment on above: Performed By: #### C MP, FE and TIBC, CBC, EFRAIN ####[address] Hematocrit (Bld) [Volume fraction] 39.5 % Normal 34.0-46.4 [facility] Comment on above: Performed By: #### C MP, FE and TIBC, CBC, EFRAIN ####[address] Hemoglobin (Bld) [Mass/Vol] 13.1 g/dL Normal 11.8-15.4 [facility] Comment on above: Performed By: #### C MP, FE and TIBC, CBC, EFRAIN ####[address] Lymphocytes (Bld) [#/Vol] 1.0 10*3/uL Normal 1.00-4.8 [facility] Comment on above: Performed By: #### C MP, FE and TIBC, CBC, EFRAIN ####[address] Lymphocytes/100 WBC (Bld) 20.2 % Normal . [facility] Comment on above: Performed By: #### C MP, FE and TIBC, CBC, EFRAIN ####[address] MCH (RBC) [Entitic mass] 30.0 pg Normal 24.7-34.3 [facility] Comment on above: Performed By: #### C MP, FE and TIBC, CBC, EFRAIN ####[address] MCV (RBC) [Entitic vol] 90.3 fL Normal 80-100 [facility] Comment on above: Performed By: #### C MP, FE and TIBC, CBC, EFRAIN ####[address] Mean Corpuscular HGB Conc 33.2 g/dL Normal 32.0-35.0 [facility] Comment on above: Performed By: #### C MP, FE and TIBC, CBC, EFRAIN ####[address] Monocytes (Bld) [#/Vol] 0.5 10*3/uL Normal 0.0-0.8 [facility] Comment on above: Performed By: #### C MP, FE and TIBC, CBC, EFRAIN ####[address] Monocytes/100 WBC (Bld) 10.5 % Normal . [facility] Comment on above: Performed By: #### C MP, FE and TIBC, CBC, EFRAIN ####[address] Neutrophils (Bld) [#/Vol] 3.2 10*3/uL Normal 1.8-7.7 [facility] Comment on above: Performed By: #### C MP, FE and TIBC, CBC, EFRAIN ####[address] Neutrophils/100 WBC (Bld) 67.3 % Normal . [facility] Comment on above: Performed By: #### C MP, FE and TIBC, CBC, EFRAIN ####[address] NRBC% 0.1 /100{WBC} Normal 0-0.5 [facility] Comment on above: Performed By: #### C MP, FE and TIBC, CBC, EFRAIN ####[address] Platelet mean volume (Bld) [Entitic vol] 7.9 fL Normal 6.3-10.7 [facility] Comment on above: Performed By: #### C MP, FE and TIBC, CBC, EFRAIN ####[address] Platelets (Bld) [#/Vol] 290 10*3/uL Normal 150-450 [facility] Comment on above: Performed By: #### C MP, FE and TIBC, CBC, EFRAIN ####[address] RBC (Bld) [#/Vol] 4.37 10*6/uL Normal 3.60-5.00 [facility] Comment on above: Performed By: #### C MP, FE and TIBC, CBC, EFRAIN ####[address] WBC (Bld) [#/Vol] 4.8 10*3/uL Normal 3.8-11.6 [facility] Comment on above: Performed By: #### C MP, FE and TIBC, CBC, EFRAIN ####[address] Comprehensive Metabolic Pane dustin 01-09-2023 Albumin [Mass/Vol] 4.3 g/dL Normal 3.2-5.5 [facility] Comment on above: Performed By: #### C MP, FE and TIBC, CBC, EFRAIN ####[address] Albumin/Globulin [Mass ratio] 1.9 {ratio} Normal [facility] Comment on above: Performed By: #### C MP, FE and TIBC, CBC, EFRAIN ####[place] [id number] [place] ALP [Catalytic activity/Vol] 54 U/L Normal 32-92 [facility] Comment on above: Performed By: #### C MP, FE and TIBC, CBC, EFRAIN ####[place] [id number] [place] ALT [Catalytic activity/Vol] 20 U/L Normal 10-60 [facility] Comment on above: Performed By: #### C MP, FE and TIBC, CBC, EFRAIN ####[place] [id number] [place] Anion gap [Moles/Vol] 10.2 mmol/L Normal 6.0-15.0 [facility] Comment on above: Performed By: #### C MP, FE and TIBC, CBC, EFRAIN ####[place] [id number] [place] AST [Catalytic activity/Vol] 21 U/L Normal 10-42 [facility] Comment on above: Performed By: #### C MP, FE and TIBC, CBC, EFRAIN ####[place] [id number] [place] Bilirubin [Mass/Vol] 0.7 mg/dL Normal 0.3-1.2 [facility] Comment on above: Performed By: #### C MP, FE and TIBC, CBC, EFRAIN ####[place] [id number] [place] Calcium [Mass/Vol] 9.6 mg/dL Normal 8.2-10.2 [facility] Comment on above: Performed By: #### C MP, FE and TIBC, CBC, EFRAIN ####[place] [id number] [place] Chloride [Moles/Vol] 104 mmol/L Normal 95-114 [facility] Comment on above: Performed By: #### C MP, FE and TIBC, CBC, EFRAIN ####[place] [id number] [place] CO2 [Moles/Vol] 27.2 mmol/L Normal 22.0-30.0 [facility] Comment on above: Performed By: #### C MP, FE and TIBC, CBC, EFRAIN ####[address] Creatinine [Mass/Vol] 0.72 mg/dL Normal 0.44-1.03 [facility] Comment on above: Performed By: #### C MP, FE and TIBC, CBC, EFRAIN ####[address] Creatinine Clr Calc Pharmacy 120.49 [facility] Comment on above: Performed By: #### C MP, FE and TIBC, CBC, EFRAIN ####[address] Estimated GFR ( Parul > 60 [facility] Comment on above: Result Comment: GFR estimated reference range: According to KDOQI guidelines, <60 ml/min/1.73m2 is sufficient to diagnose a patient with chronic kidney disease. Performed By: #### C MP, FE and TIBC, CBC, EFRAIN ####[address] Estimated GFR (Non- Am > 60 [facility] Comment on above: Performed By: #### C MP, FE and TIBC, CBC, EFRAIN ####[address] Globulin (S) [Mass/Vol] 2.3 g/dL Normal [facility] Comment on above: Performed By: #### C MP, FE and TIBC, CBC, EFRAIN ####[address] Glucose [Mass/Vol] 80 mg/dL Normal 70-100 [facility] Comment on above: Result Comment: [facility] Glucose Reference Range is dependent on time and content of last meal. Glucose of more than 200 mg/dL in a nonstressed, ambulatory subject supports the diagnosis of Diabetes Mellitus. ADA recommended reference range Performed By: #### C MP, FE and TIBC, CBC, EFRAIN ####[facility] Potassium [Moles/Vol] 4.4 mmol/L Normal 3.5-5.1 [facility] Comment on above: Performed By: #### C MP, FE and TIBC, CBC, EFRAIN ####[place] [id number] [place] Protein [Mass/Vol] 6.6 g/dL Normal 6.1-7.9 [facility] Comment on above: Performed By: #### C MP, FE and TIBC, CBC, EFRAIN ####[address] Sodium [Moles/Vol] 137 mmol/L Normal 136-146 [facility] Comment on above: Performed By: #### C MP, FE and TIBC, CBC, EFRAIN ####[address] Urea nitrogen [Mass/Vol] 13 mg/dL Normal 9-23 [facility] Comment on above: Performed By: #### C MP, FE and TIBC, CBC, EFRAIN ####[address] Creatinine and Glomerular fi ltration rate.predicted panel (S/P/Bld)Ordered By: Amanda Rosario on 01-09-2023 Creatinine [Mass/Vol] 0.72 mg/dL 0.44-1.03 [facility] Eosinophils Auto (Bld) [#/Vo l]Ordered By: Amanda Rosario on 01-09-2023 Eosinophils (Bld) [#/Vol] 0.1 10*3/uL 0.0-0.45 [facility] Eosinophils/100 WBC Auto (Bl d)Ordered By: Amanda Rosario on 01-09-2023 Eosinophils/100 WBC (Bld) 1.3 % . [facility] Erythrocyte distribution wid th Auto (RBC) [Ratio]Ordered By: Amanda Rosario on 01-09-2023 Erythrocyte distribution width (RBC) [Ratio] 13.1 % 11.9-15.3 [facility] Estimated glomerular filtrat ion rate (GFR) non- AmericanOrdered By: Amanda Rosario on 01-09-2023 GFR/1.73 sq M.predicted among non-blacks MDRD (S/P/Bld) [Vol rate/Area] > 60 mL/Min [facility] Ferritinon 01-09-2023 Ferritin [Mass/Vol] 13.4 ng/mL Normal 11-306.8 [facility] Comment on above: Result Comment: PERF ORMED BY: [facility] [address] [place] [id number] [facility] [employer] RUSS DAVIS M.D. Performed By: #### C MP, FE and TIBC, CBC, EFRAIN ####[facility] [id number] [place] [id number] [place] Ferritin [Mass/volume] in Se rum or PlasmaOrdered By: Amanda Rosario on 01-09-2023 Ferritin [Mass/Vol] 13.4 ng/mL 11-306.8 [facility] Globulin Calc (S) [Mass/Vol] Ordered By: Amanda Rosario on 01-09-2023 Globulin (S) [Mass/Vol] 2.3 g/dL F [facility] Glucose [Mass/volume] in Ser um or PlasmaOrdered By: Amanda Rosario on 01-09-2023 Glucose [Mass/Vol] 80 mg/dL 70-100 [facility] Comment on above: ADA recommended refe rence rangeRandom Glucose Reference Range is dependent on time and content of last meal. Glucose of more than 200 mg/dL in a nonstressed, ambulatory subject supports the diagnosis of Diabetes Mellitus. Hematocrit Auto (Bld) [Volum e fraction]Ordered By: Amanda Rosario on 01-09-2023 Hematocrit (Bld) [Volume fraction] 39.5 % 34.0-46.4 [facility] Hemoglobin [Mass/volume] in BloodOrdered By: Amanda Rosario on 01-09-2023 Hemoglobin (Bld) [Mass/Vol] 13.1 g/dL 11.8-15.4 [facility] Iron [Mass/volume] in Serum or PlasmaOrdered By: Amanda Rosario on 01-09-2023 Iron [Mass/Vol] 75 ug/dL 40-150 [facility] Iron and TIBC Profileon 12-24 % Iron Saturation 20.2 % Normal 20-50 [facility] Comment on above: Performed By: #### C MP, FE and TIBC, CBC, EFRAIN ####[facility] [id number] [place] [address] [place] Iron [Mass/Vol] 75 ug/dL Normal 40-150 [facility] Comment on above: Performed By: #### C MP, FE and TIBC, CBC, EFRAIN ####[facility] [id number] [place] [address] [place] Total Iron Binding Capacity 371 ug/dL Normal 255-450 [facility] Comment on above: Performed By: #### C MP, FE and TIBC, CBC, EFRAIN ####[facility] [id number] [place] [address] [place] Transferrin [Mass/Vol] 265 mg/dL Normal 180-380 [facility] Comment on above: Performed By: #### C MP, FE and TIBC, CBC, EFRAIN ####[facility] [id number] [place] [id number] [place] Iron binding capacity [Mass/ volume] in Serum or PlasmaOrdered By: Amanda Rosario on 01-09-2023 Iron binding capacity [Mass/Vol] 371 ug/dL 255-450 [facility] Iron saturation [Mass Fracti on] in Serum or PlasmaOrdered By: Amanda Rosario on 01-09-2023 Iron saturation [Mass fraction] 20.2 % 20-50 [facility] LDH Lactate Dehydrogenaseon 01-09-2023 LDH Lactate Dehydrogenase 145 U/L Normal 45-190 [facility] Comment on above: Result Comment: PERF ORMED BY: [facility] [address] [facility] [place] [address] [facility] [employer] RUSS DAVIS M.D. Performed By: #### L DH #### [facility] [address] Lactate dehydrogenase measur ement (enzymatic activity/volume)Ordered By: Ale Malone on 01-09-2023 LDH (Unsp spec) [Catalytic activity/Vol] 145 U/L 45-190 [facility] Leukocytes [#/volume] correc yanira for nucleated erythrocytes in Blood by Automated counOrdered By: Amanda Rosario on 01-09-2023 WBC corrected for nucl RBC Auto (Bld) [#/Vol] 4.8 10*3/uL 3.8-11.6 [facility] Lymphocytes Auto (Bld) [#/Vo l]Ordered By: Amanda Rosario on 01-09-2023 Lymphocytes (Bld) [#/Vol] 1.0 10*3/uL 1.00-4.8 [facility] Lymphocytes/100 WBC Auto (Bl d)Ordered By: Amanda Rosario on 01-09-2023 Lymphocytes/100 WBC (Bld) 20.2 % . [facility] MCH Auto (RBC) [Entitic mass ]Ordered By: Amanda Rosario on 01-09-2023 MCH (RBC) [Entitic mass] 30.0 pg 24.7-34.3 [facility] MCHC Auto (RBC) [Mass/Vol]Or dered By: Aamnda Rosario on 01-09-2023 MCHC (RBC) [Mass/Vol] 33.2 g/dL 32.0-35.0 [facility] MCV Auto (RBC) [Entitic vol] Ordered By: Amanda Rosario on 01-09-2023 MCV (RBC) [Entitic vol] 90.3 fL 80-100 F [facility] Monocytes Auto (Bld) [#/Vol] Ordered By: Amanda Rosario on 01-09-2023 Monocytes (Bld) [#/Vol] 0.5 10*3/uL 0.0-0.8 [facility] Monocytes/100 WBC Auto (Bld) Ordered By: Amanda Rosario on 01-09-2023 Monocytes/100 WBC (Bld) 10.5 % . F [facility] Neutrophils Auto (Bld) [#/Vo l]Ordered By: Amanda Rosario on 01-09-2023 Neutrophils (Bld) [#/Vol] 3.2 10*3/uL 1.8-7.7 [facility] Neutrophils/100 WBC Auto (Bl d)Ordered By: Amanda Rosario on 01-09-2023 Neutrophils/100 WBC (Bld) 67.3 % . [facility] No Panel InformationOrdered By: Amanda Rosario on 01-09-2023 Estimated GFR () > 60 mL/Min [facility] Comment on above: GFR estimated refere nce range: According to KDOQI guidelines, <60 ml/min/1.73m2 is sufficient to diagnose a patient with chronic kidney disease. Pharmacy Creatinine Clearance (Chem 120.49 [facility] Nucleated erythrocytes [Pres ence] in Blood by Automated countOrdered By: Amanda Rosario on 01-09-2023 Nucleated RBC Auto Ql (Bld) 0.1 /100{WBC} 0-0.5 [facility] Platelet mean volume Auto (B ld) [Entitic vol]Ordered By: Amanda Rosario on 01-09-2023 Platelet mean volume (Bld) [Entitic vol] 7.9 fL 6.3-10.7 [facility] Platelets Auto (Bld) [#/Vol] Ordered By: Amanda Rosario on 01-09-2023 Platelets (Bld) [#/Vol] 290 10*3/uL 150-450 [facility] Potassium [Moles/volume] in Serum or PlasmaOrdered By: Amanda Rosario on 01-09-2023 Potassium [Moles/Vol] 4.4 mmol/L 3.5-5.1 [facility] Protein [Mass/volume] in Ser um or PlasmaOrdered By: Amanda Rosario on 01-09-2023 Protein [Mass/Vol] 6.6 g/dL 6.1-7.9 [facility] RBC Auto (Bld) [#/Vol]Ordere d By: Amanda Rosario on 01-09-2023 RBC (Bld) [#/Vol] 4.37 10*6/uL 3.60-5.00 [facility] Serum or plasma alanine green otransferase measurement without P-5'-P (enzymatic activiOrdered By: Amanda Rosario on 01-09-2023 ALT No additional P-5'-P [Catalytic activity/Vol] 20 U/L 10-60 [facility] Serum or plasma albumin/glob ulin mass ratioOrdered By: Amanda Rosario on 01-09-2023 Albumin/Globulin [Mass ratio] 1.9 {ratio} [facility] Serum or plasma anion gap de terminationOrdered By: Amanda Rosario on 01-09-2023 Anion gap [Moles/Vol] 10.2 mmol/L 6.0-15.0 [facility] Sodium [Moles/volume] in Ser um or PlasmaOrdered By: Amanda Rosario on 01-09-2023 Sodium [Moles/Vol] 137 mmol/L 136-146 [facility] US extremity nonvascularon 0 01-09-2023 US extremity nonvascular [facility] [place] [address] Ultrasound Report Signed Patient: Ailyn Resendiz MR#: [id number] : 1995 Acct:[id number] Age/Sex: 27 / F ADM Date: 01/09/23 Loc: Room: Type: [facility] Attending Dr: Amanda Rosario MD [...] Gilmore Jr., D.O.01/09/2023 12:04 PM Dictation Location: [place] [address] Tech: Uma Ram Transcribed By: LEOPOLDO 01/09/23 1204 Dictated By: Paresh Gilmore Jr, DO 01/09/23 1201 Signed By: 02/17/23 1204 Normal [facility] Urea nitrogen [Mass/volume] in Serum or PlasmaOrdered By: Amanda Ninose on 01-09-2023 Urea nitrogen [Mass/Vol] 13 mg/dL 9 [facility] WBC Auto (Bld) [#/Vol]Ordere d By: Amanda Rosario on 01-09-2023 WBC (Bld) [#/Vol] 4.8 10*3/uL 3.8-11.6 [facility] CBC AUTO DIFFon 12-31-2022 BASO # 0.1 103/ul Normal 0.0-0.1 [facility] Comment on above: Performed By: #### C BC #### [facility] [address] [place] [address] Dr. Beth Pineda Basophils/100 WBC (Bld) 1.2 % Normal 0.2-2.0 [place] Comment on above: Performed By: #### C BC #### [facility] [address] [place] [address] Dr. Beth Pineda EO # 0.1 103/ul Normal 0.0-0.7 [facility] Comment on above: Performed By: #### C BC #### [facility] [address] [place] [address] Dr. Beth Pineda Eosinophils/100 WBC (Bld) 2.1 % Normal 0.9-7.0 [facility] Comment on above: Performed By: #### C BC #### [facility] [address] [place] [address] Dr. Beth Pineda Erythrocyte distribution width (RBC) [Ratio] 12.9 % Normal 11.0-15.0 [facility] Comment on above: Performed By: #### C BC #### [facility] [address] [place] [address] Dr. Beth Pineda Hematocrit (Bld) [Volume fraction] 41.2 % Normal 36.0-48.0 [facility] Comment on above: Performed By: #### C BC #### [facility] [address] [place] [address] Dr. Beth Pineda Hemoglobin (Bld) [Mass/Vol] 13.5 g/dL Normal 12.0-16.0 [facility] Comment on above: Performed By: #### C BC #### [facility] [address] [place] [address] Dr. Beth Pineda IG # 0.01 10e3/ul Normal 0.00-0.03 [facility] Comment on above: Performed By: #### C BC #### [facility] [address] [place] [address] Dr. Beth Pineda IG % 0.2 % Normal 0.0-0.5 [facility] Comment on above: Performed By: #### C BC #### [facility] [address] [place] [address] Dr. Beth Pineda LYMPH # 1.6 103/ul Normal 1.2-3.8 [facility] Comment on above: Performed By: #### C BC #### [facility] [address] [place] [address] Dr. Beth Pineda Lymphocytes/100 WBC (Bld) 29.9 % Normal 20.5-60.0 [facility] Comment on above: Performed By: #### C BC #### [facility] [address] [place] [address] Dr. Beth Pineda MANUAL DIFF REQ NO Normal [facility] Comment on above: Performed By: #### C BC #### [facility] [address] [place] [address] Dr. Beth Pineda MCH (RBC) [Entitic mass] 30.3 pg Normal 26.7-34.0 [facility] Comment on above: Performed By: #### C BC #### [facility] [address] [place] [address] Dr. Beth Pineda MCHC (RBC) [Mass/Vol] 32.8 g/dL Normal 29.9-35.2 [facility] Comment on above: Performed By: #### C BC #### [facility] [address] [place] [address] Dr. Beth Pineda MCV (RBC) [Entitic vol] 92.6 fL Normal 81.0-99.0 [place] Comment on above: Performed By: #### C BC #### [facility] [address] [place] [address] [address] Beth Pineda MONO # 0.4 103/ul Normal 0.3-0.8 [facility] Comment on above: Performed By: #### C BC #### [facility] [address] [place] [address] Dr. Beth Pineda Monocytes/100 WBC (Bld) 7.9 % Normal 1.7-12.0 [place] Comment on above: Performed By: #### C BC #### [facility] [address] [place] [address] Dr. Beth Pineda NEUT # 3.0 103/ul Normal 1.4-6.5 [facility] Comment on above: Performed By: #### C BC #### [facility] [address] [place] [address] Dr. Beth Pineda Neutrophils/100 WBC (Bld) 58.7 % Normal 43.0-75.0 [facility] Comment on above: Performed By: #### C BC #### [facility] [address] [place] [address] Dr. Beth Pineda Platelet mean volume (Bld) [Entitic vol] 9.3 fL Critically low 9.5-13.5 [facility] Comment on above: Performed By: #### C BC #### [facility] [address] [place] [address] Dr. Beth Pineda PLT 304 103/ul Normal 150-450 [facility] Comment on above: Performed By: #### C BC #### [facility] [address] [place] [address] Dr. Beth Pineda RBC 4.45 106/ul Normal 4.20-5.40 [facility] Comment on above: Performed By: #### C BC #### [facility] [address] [place] [address] Dr. Beth Pineda WBC 5.2 103/ul Normal 4.0-11.0 [facility] Comment on above: Performed By: #### C BC #### [facility] [address] [place] [address] [address] Beth Pineda GLYCOHEMOGLOBIN A1Con 2022 ADA RECOMMENDATION SEE BELOW Normal [facility] Comment on above: Result Comment: ADA RECOMMENDED LIMIT 4.0 - 6.0 ADA THERAPEUTIC TARGET < 7.0 ACTION SUGGESTED > 7.0 Performed By: #### T SH #### [facility] [address] [place] [address] [address] Beth Pineda Glucose [Mass/Vol] 91 mg/dL Normal [facility] Comment on above: Performed By: #### T SH #### [facility] [address] [place] [address] Dr. Beth Pineda HbA1c (Bld) [Mass fraction] 4.8 % Normal 4.5-6.2 [facility] Comment on above: Performed By: #### T SH #### [facility] [address] [place] [address] Dr. Beth Pineda LIPID PROFILEon 12-31-2022 CHOL-HDL RATIO NORM SEE BELOW Normal [facility] Comment on above: Result Comment: 3.3 - 4.4 LOW RISK 4.4 - 7.1 AVERAGE RISK 7.1 - 11.0 MODERATE RISK >11.0 HIGH RISK Performed By: #### A 1C #### [facility] [address] [place] [address] Dr. Beth Pineda Cholesterol [Mass/Vol] 180 mg/dL Normal <=200 [facility] Comment on above: Performed By: #### A 1C #### [facility] [address] [place] [address] Dr. Beth Pineda Cholesterol in HDL [Mass/Vol] 106 mg/dL Critically high 40-60 [facility] Comment on above: Performed By: #### A 1C #### [facility] [address] [place] [address] Dr. Beth Pineda Cholesterol in LDL [Mass/Vol] 66.6 mg/dL Normal [facility] Comment on above: Performed By: #### A 1C #### [facility] [address] [place] [address] Dr. Beth Pineda Cholesterol.total/Elida sterol in HDL [Mass ratio] 1.7 {ratio} Normal [facility] Comment on above: Performed By: #### A 1C #### [facility] [address] [address] [address] Beth Pineda HDL NORMAL > or = 60 mg/dl - LO W CARDIOVASCULAR RISK <40 mg/dl - HIGH CARDIOVASCULAR RISK Normal [facility] Comment on above: Performed By: #### A 1C #### [facility] [address] [address] [address] Beth Pineda LDL CALC NORMAL SEE BELOW Normal [facility] Comment on above: Result Comment: <100 mg/dl OPTIMAL 100 - 129 mg/dl NEAR OR ABOVE OPTIMAL 130 - 159 mg/dl BORDERLINE HIGH 160 - 189 mg/dl HIGH >190 mg/dl VERY HIGH Performed By: #### A 1C #### [facility] [address] [place] [address] Dr. Beth Pineda Triglyceride [Mass/Vol] 37 mg/dL Normal <=150 [place] Comment on above: Performed By: #### A 1C #### [facility] [address] [place] [address] Dr. Beth Pineda VLDL CALC 7.4 mg/dL Normal [facility] Comment on above: Performed By: #### A 1C #### [facility] [address] [place] [address] Dr. Beth Pineda PROF 14(COMP METB)on 023 Albumin [Mass/Vol] 4.3 g/dL Normal 3.4-5.0 [facility] Comment on above: Performed By: #### T SH #### [facility] [address] [place] [address] Dr. Beth Pineda Albumin/Globulin [Mass ratio] 1.3 {ratio} Normal [facility] Comment on above: Performed By: #### T SH #### [facility] [address] [place] [address] Dr. Beth Pineda ALP [Catalytic activity/Vol] 68 U/L Normal 46-116 [facility] Comment on above: Performed By: #### T SH #### [facility] [address] [address] [address] Beth Pineda ALT [Catalytic activity/Vol] 21 U/L Normal 14-59 [facility] Comment on above: Performed By: #### T SH #### [facility] [address] [address] [address] Beth Pineda Anion gap [Moles/Vol] 12.1 mmol/L Normal [facility] Comment on above: Performed By: #### T SH #### [facility] [address] [address] [address] Beth Pineda AST [Catalytic activity/Vol] 10 U/L Critically low 15-37 [facility] Comment on above: Performed By: #### T SH #### [facility] [address] [place] [address] Dr. Beth Pineda Bilirubin [Mass/Vol] 0.6 mg/dL Normal 0.2-1.0 [facility] Comment on above: Performed By: #### T SH #### [facility] [address] [place] [address] Dr. Beth Pineda Calcium [Mass/Vol] 9.2 mg/dL Normal 8.5-10.1 [facility] Comment on above: Performed By: #### T SH #### [facility] [address] [place] [address] Dr. Beth Pineda Chloride [Moles/Vol] 103 mmol/L Normal 98-107 [facility] Comment on above: Performed By: #### T SH #### [facility] [address] [place] [address] Dr. Beth Pineda CO2 [Moles/Vol] 28.0 mmol/L Normal 21.0-32.0 [facility] Comment on above: Performed By: #### T SH #### [facility] [address] [place] [address] Dr. Beth Pineda Creatinine [Mass/Vol] 0.73 mg/dL Normal 0.55-1.02 [facility] Comment on above: Performed By: #### T SH #### [facility] [address] [place] [address] Dr. Beth Pineda EGFR-AF LIBERIAN >60 Normal >=60 [facility] Comment on above: Performed By: #### T SH #### [facility] [address] [place] [address] Dr. Beth Pineda EGFR-NON AF LIBERIAN >60 Normal >=60 [facility] Comment on above: Performed By: #### T SH #### [facility] [address] [place] [address] Dr. Beth Pineda Globulin (S) [Mass/Vol] 3.2 g/dL Normal T [facility] Comment on above: Performed By: #### T SH #### [facility] [address] [place] [address] Dr. Beth Pineda Glucose [Mass/Vol] 89 mg/dL Normal 74-106 [facility] Comment on above: Performed By: #### T SH #### [facility] [address] [place] [address] Dr. Beth Pineda Potassium [Moles/Vol] 4.1 mmol/L Normal 3.5-5.1 [facility] Comment on above: Performed By: #### T SH #### [facility] [address] [place] [address] Dr. Beth Pineda Protein [Mass/Vol] 7.5 g/dL Normal 6.4-8.2 [facility] Comment on above: Performed By: #### T SH #### [facility] [address] [place] [address] Dr. Beth Pineda Sodium [Moles/Vol] 139 mmol/L Normal 136-145 [facility] Comment on above: Performed By: #### T SH #### [facility] [address] [place] [address] Dr. Beth Pineda Urea nitrogen [Mass/Vol] 10.0 mg/dL Normal 7.0-18.0 [facility] Comment on above: Performed By: #### T SH #### [facility] [address] [place] [address] Dr. Beth Pineda Urea nitrogen/Creatinine [Mass ratio] 13.7 mg/mg Normal [facility] Comment on above: Performed By: #### T SH #### [facility] [address] [place], [place] [address] Dr. Beth Pineda TSHon 12-31-2022 TSH 3.121 uIU/mL Normal 0.358-3.740 [facility] Comment on above: Performed By: #### A 1C #### [facility] [address] [address] [address] Beth Pineda Albumin [Mass/volume] in Ser um or PlasmaOrdered By: Amanda Rosario on 07-08-2022 Albumin [Mass/Vol] 3.9 g/dL 3.2-5.5 [facility] Basophils Auto (Bld) [#/Vol] Ordered By: Amanda Rosario on 07-08-2022 Basophils (Bld) [#/Vol] 0.1 10*3/uL 0.0-0.2 [facility] Basophils/100 WBC Auto (Bld) Ordered By: Amanda Rosario on 07-08-2022 Basophils/100 WBC (Bld) 1.3 % . F [facility] Blood hemoglobin measurement (mass/volume)Ordered By: Amanda Rosario on 07-08-2022 Hemoglobin (Bld) [Mass/Vol] 14.2 g/dL 11.8-15.4 [facility] Blood leukocytes automated c ount (number/volume)Ordered By: Amanda Rosario on 07-08-2022 WBC (Bld) [#/Vol] 5.6 10*3/uL 4.5-11.[address] [facility] [address] biopsyOrdered By: Amanda Nino se on 07-08-2022 Transferrin [Mass/Vol] 346 mg/dL 180-380 [facility] Creatinine and Glomerular fi ltration rate.predicted panel (S/P/Bld)Ordered By: Amanda Rosario on 07-08-2022 Creatinine [Mass/Vol] 0.78 mg/dL 0.44-1.03 [facility] Eosinophils Auto (Bld) [#/Vo l]Ordered By: Amanda Rosario on 07-08-2022 Eosinophils (Bld) [#/Vol] 0.1 10*3/uL 0.0-0.45 [facility] Eosinophils/100 WBC Auto (Bl d)Ordered By: Amanda Rosario on 07-08-2022 Eosinophils/100 WBC (Bld) 1.2 % . [facility] Erythrocyte distribution wid th Auto (RBC) [Ratio]Ordered By: Amanda Rosario on 07-08-2022 Erythrocyte distribution width (RBC) [Ratio] 12.4 % 11.9-15.3 [facility] Estimated glomerular filtrat ion rate (GFR) non- AmericanOrdered By: Amanda Rosario on 07-08-2022 GFR/1.73 sq M.predicted among non-blacks MDRD (S/P/Bld) [Vol rate/Area] > 60 mL/Min [facility] Ferritin [Mass/volume] in Se rum or PlasmaOrdered By: Amanda Rosario on 07-08-2022 Ferritin [Mass/Vol] 9.6 ng/mL 11-306.8 [facility] Globulin Calc (S) [Mass/Vol] Ordered By: Amanda Rosario on 07-08-2022 Globulin (S) [Mass/Vol] 2.9 g/dL F [facility] Hematocrit Auto (Bld) [Volum e fraction]Ordered By: Amanda Rosario on 07-08-2022 Hematocrit (Bld) [Volume fraction] 42.7 % 34.0-46.4 [facility] Iron [Mass/volume] in Serum or PlasmaOrdered By: Amanda Rosario on 07-08-2022 Iron [Mass/Vol] 173 ug/dL 40-150 [facility] Iron binding capacity [Mass/ volume] in Serum or PlasmaOrdered By: Amanda Rosario on 07-08-2022 Iron binding capacity [Mass/Vol] 484 ug/dL 255-450 [facility] Iron saturation [Mass Fracti on] in Serum or PlasmaOrdered By: Amanda Rosario on 07-08-2022 Iron saturation [Mass fraction] 35.0 % 20-50 [facility] Laboratory - Hematology and Cell countsOrdered By: Amanda Rosario on 07-08-2022 Nucleated RBC/100 WBC (Bld) [Ratio] 0.2 % 0-0.5 [facility] Lactate dehydrogenase measur ement (enzymatic activity/volume)Ordered By: Amanda Rosario on 07-08-2022 LDH (Unsp spec) [Catalytic activity/Vol] 154 U/L 45-190 [facility] Lymphocytes Auto (Bld) [#/Vo l]Ordered By: Amanda Rosario on 07-08-2022 Lymphocytes (Bld) [#/Vol] 1.5 10*3/uL 1.00-4.8 [facility] Lymphocytes/100 WBC Auto (Bl d)Ordered By: Amanda Rosario on 07-08-2022 Lymphocytes/100 WBC (Bld) 26.6 % . [facility] MCH Auto (RBC) [Entitic mass ]Ordered By: Amanda Rosario on 07-08-2022 MCH (RBC) [Entitic mass] 29.7 pg 24.7-34.3 [facility] MCHC Auto (RBC) [Mass/Vol]Or dered By: Amanda Rosario on 07-08-2022 MCHC (RBC) [Mass/Vol] 33.3 g/dL 32.0-35.0 [facility] MCV Auto (RBC) [Entitic vol] Ordered By: Amanda Rosario on 07-08-2022 MCV (RBC) [Entitic vol] 89.4 fL 80-100 F [facility] Monocytes Auto (Bld) [#/Vol] Ordered By: Amanda Rosario on 07-08-2022 Monocytes (Bld) [#/Vol] 0.5 10*3/uL 0.0-0.8 [facility] Monocytes/100 WBC Auto (Bld) Ordered By: Amanda Rosario on 07-08-2022 Monocytes/100 WBC (Bld) 9.7 % . F [facility] Neutrophils Auto (Bld) [#/Vo l]Ordered By: Amanda Rosario on 07-08-2022 Neutrophils (Bld) [#/Vol] 3.4 10*3/uL 1.8-7.7 [facility] Neutrophils/100 WBC Auto (Bl d)Ordered By: Amanda Rosario on 07-08-2022 Neutrophils/100 WBC (Bld) 61.2 % . [facility] No Panel InformationOrdered By: Amanda Rosario on 07-08-2022 Adrenocorticotropic Hormone 8.2 pg/mL 7.2-63.3 [facility] Comment on above: ACTH reference inter cruz for samples collected between 7 and 10 AM. Performed at: - [address] [id number] [employer]: Sai Smalls PhD, Phone: [phone] ACTH reference inter cruz for samples collected between 7 and10 AM.Performed at: [facility] [address] [id number] Director: Sai Smalls PhD, Phone: [phone] Estimated GFR () > 60 mL/Min [facility] Comment on above: GFR estimated refere nce range: According to KDOQI guidelines, <60 ml/min/1.73m2 is sufficient to diagnose a patient with chronic kidney disease. Pharmacy Creatinine Clearance (Chem 111.22 [facility] Total Triiodothyronine 1.68 ng/mL 0.87-1.78 [facility] Platelet mean volume Auto (B ld) [Entitic vol]Ordered By: Amanda Rosario on 07-08-2022 Platelet mean volume (Bld) [Entitic vol] 8.0 fL 6.3-10.7 [facility] Platelets Auto (Bld) [#/Vol] Ordered By: Amanda Rosario on 07-08-2022 Platelets (Bld) [#/Vol] 393 10*3/uL 150-450 [facility] Protein [Mass/volume] in Ser um or PlasmaOrdered By: Amanda Rosario on 07-08-2022 Protein [Mass/Vol] 6.8 g/dL 6.1-7.9 [facility] RBC Auto (Bld) [#/Vol]Ordere d By: Amanda Rosario on 07-08-2022 RBC (Bld) [#/Vol] 4.78 10*6/uL 3.60-5.00 [facility] Random cortisol measurementO rdered By: Amanda Rosario on 07-08-2022 Cortisol [Mass/Vol] 12.6 ug/dL [facility] Comment on above: Reference range: AM 6 - 24 ug/dl PM <10 ug/dl Reference range: AM 6 - 24 ug/dl PM <10 ug/dl Serum or plasma alanine green otransferase measurement without P-5'-P (enzymatic activiOrdered By: Amanda Rosario on 07-08-2022 ALT No additional P-5'-P [Catalytic activity/Vol] 17 U/L 10-60 [facility] Serum or plasma albumin/glob ulin mass ratioOrdered By: Amanda Rosario on 07-08-2022 Albumin/Globulin [Mass ratio] 1.3 {ratio} [facility] Serum or plasma alkaline mando sphatase measurement (enzymatic activity/volume)Ordered By: Amanda Rosario on 07-08-2022 ALP [Catalytic activity/Vol] 52 U/L 32-92 [facility] Serum or plasma aspartate am inotransferase measurement (enzymatic activity/volume)Ordered By: Amanda Rosario on 07-08-2022 AST [Catalytic activity/Vol] 22 U/L 10-42 [facility] Serum or plasma calcium saritha urement (mass/volume)Ordered By: Amanda Rosario on 07-08-2022 Calcium [Mass/Vol] 9.3 mg/dL 8.2-10.2 [facility] Serum or plasma chloride obi surement (moles/volume)Ordered By: Amanda Rosario on 07-08-2022 Chloride [Moles/Vol] 104 mmol/L 95-114 [facility] Serum or plasma glucose saritha urement (mass/volume)Ordered By: Amanda Rosario on 07-08-2022 Glucose [Mass/Vol] 83 mg/dL 70-100 [facility] Comment on above: ADA recommended refe rence range Random Glucose Reference Range is dependent on time and content of last meal. Glucose of more than 200 mg/dL in a nonstressed, ambulatory subject supports the diagnosis of Diabetes Mellitus. Serum or plasma potassium me asurement (moles/volume)Ordered By: Amanda Rosario on 07-08-2022 Potassium [Moles/Vol] 4.3 mmol/L 3.5-5.1 [facility] Serum or plasma sodium measu rement (moles/volume)Ordered By: Amanda Rosario on 07-08-2022 Sodium [Moles/Vol] 134 mmol/L 136-146 [facility] Serum or plasma thyroxine (T 4) measurement (mass/volume)Ordered By: Amanda Rosario on 07-08-2022 T4 [Mass/Vol] 11.18 ug/dL 5.39-11.82 [facility] Serum or plasma total biliru bin measurement (mass/volume)Ordered By: Amanda Rosario on 07-08-2022 Bilirubin [Mass/Vol] 0.7 mg/dL 0.3-1.2 [facility] Serum or plasma total carbon dioxide measurement (moles/volume)Ordered By: Amanda Abraham on 07-08-2022 CO2 [Moles/Vol] 22.2 mmol/L 22.0-30.0 [facility] Serum or plasma urea nitroge n measurement (mass/volume)Ordered By: Amanda Abraham on 07-08-2022 Urea nitrogen [Mass/Vol] 9 mg/dL 08-15 [facility] TSH DL <= 0.005 mIU/L QnOrde red By: Amanda Ninose on 07-08-2022 TSH Qn 1.69 m[IU]/L 0.45-5.33 [facility] CHLAMYDIA/GONOCOCCUS PARMINDER ( AB/URINE/PAPon 06-19-2022 Chlamydia trachomatis, PARMINDER Negative Normal Negative [facility] Comment on above: Performed By: #### T SH #### [facility] [address] [place] [address] Dr. Beth Pineda Neisseria gonorrhoeae, PARMINDER Negative Normal Negative [facility] Comment on above: Performed By: #### T SH #### [facility] [address] [place] [address] Dr. Beth Pineda VAGINITIS/VAGINOSIS DNA PROB Kaden 06-18-2022 Anh species Negative Normal Negative [facility] Comment on above: Performed By: #### T SH #### [facility] [address] [place] [address] Dr. Beth Pineda Gardnerella vaginalis Negative Normal Negative [facility] Comment on above: Performed By: #### T SH #### [facility] [address] [place] [address] Dr. Beth Pineda Trichomonas vaginalis Negative Normal Negative [facility] Comment on above: Performed By: #### T SH #### [facility] [address] [address] [address] Beth Pineda Creatinine [Mass/volume] in UrineOrdered By: Amanda Rosario on 05-23-2022 Creatinine (U) [Mass/Vol] 26.2 mg/dL [facility] Comment on above: No reference range e stablished Laboratory - Chemistry and C hemistry - challengeOrdered By: Amanda Rosario on 05-23-2022 Lipase [Catalytic activity/Vol] 32.0 U/L 22-51 [facility] Protein [Mass/volume] in Uri neOrdered By: Amanda Rosario on 05-23-2022 Protein (U) [Mass/Vol] mg/dL 0-9 [facility] Thyroxine (T4) free [Mass/vo lume] in Serum or PlasmaOrdered By: Amanda Rosario on 05-23-2022 Free T4 [Mass/Vol] 0.88 ng/dL 0.61-1.12 [facility] Bilirubin Test strip Ql (U)O rdered By: Amanda Rosario on 10-30-2021 Bilirubin Ql (U) Negative Negative [facility] Color Auto (U)Ordered By: Ira Rosario on 10-30-2021 Color (U) Yellow Yellow [facility] Ketones Auto test strip (U) [Mass/Vol]Ordered By: Amanda Rosario on 10-30-2021 Ketones (U) [Mass/Vol] Negative Negative [facility] Nitrite Test strip Ql (U)Ord ered By: Amanda Rosario on 10-30-2021 Nitrite Ql (U) Negative Negative [facility] Protein Auto test strip (U) [Mass/Vol]Ordered By: Amanda Rosario on 10-30-2021 Protein (U) [Mass/Vol] Negative Negative [facility] Specific gravity Auto test s trip (U) [Rel density]Ordered By: Amanda Rosario on 10-30-2021 Specific gravity (U) [Rel density] 1.008 1.001-1.030 [facility] Urine clarity by refractomet ry automatedOrdered By: Amanda Rosario on 10-30-2021 Clarity Refractometry automated (U) Clear Clear [facility] Urine glucose measurement by automated test strip (mass/volume)Ordered By: Amanda Rosario on 10-30-2021 Glucose Auto test strip (U) [Mass/Vol] Normal mg/dL Normal [facility] Urine hemoglobin detection b y automated test stripOrdered By: Amanda Rosario on 10-30-2021 Hemoglobin Auto test strip Ql (U) Negative Negative [facility] Urine leukocyte esterase det ection by automated test stripOrdered By: Amanda Rosario on 10-30-2021 Leukocyte esterase Auto test strip Ql (U) Negative Negative [facility] Urobilinogen Auto test strip (U) [Mass/Vol]Ordered By: Amanda Rosario on 10-30-2021 Urobilinogen (U) [Mass/Vol] Normal mg/dL Normal [facility] pH Auto test strip (U)Ordere d By: Amanda Rosario on 10-30-2021 pH (U) 5.5 [pH] 5.0-9.0 [facility] Lab Reportson 07-31-2021 Lab Reports [id number] D:127 Normal [facility] RAD - MISCon 07-31-2021 RAD - MISC [id number] D:127 Normal [facility] HCG ( test) IA.rapi d Ql (U)Ordered By: Amanda Rosario on 07-09-2021 HCG ( test) Ql (U) Negative [facility] Glucose Glucometer (BldC) [M ass/Vol]Ordered By: Amanda Rosario on 07-01-2021 Glucose [Mass/Vol] 82 mg/dL [facility] Comment on above: Random Glucose Refer ence Range is dependent on time and content of last meal. Glucose of more than 200 mg/dL in a nonstressed, ambulatory subject supports the diagnosis of Diabetes Mellitus. 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 Will follow up with the pathology report once this is resulted Dictation software was used in the creation of this note and not corrected for typographical or grammatical errors Chief Complaint Postop History of Present [id number] woman who underwent wide excision right posterior calf melanoma with [place] flap reconstruction as well as right inguinal and iliac sentinel lymph node biopsy on 05/17/2021. Pathology report has not yet resulted. She is recovering well. Active Problems Malignant melanoma of lower leg, right (172.7) (C43.71) Allergies No Known Drug Allergies Recorded By: Florence Fernando; 05/30/2021 2:49:13 PM Vitals Vital Signs Recorded: [id number] 02:47PM Bctwflmhyur93 C, Temporal Heart Rrbo767 Vyvdmehslep89 Coflgpen232, RUE, Sitting Zzbjhztpk49, RUE, Sitting Blood Pressure Cuff SizeAdult Amvxiv194 cm Weiduf37.6 kg BMI Qnaxcnnfwv57.58 kg/m2 BSA Calculated1.77 O2 Urwgpzgfho38 Pain Scale0 Physical Exam Right groin wounds above and below the inguinal crease are both healing well without evidence of infection or seroma Right lower leg incision healing well without infection or skin separation. There is some bruising noted around the flap but no flap ischemia Signatures Electronically signed by : Sarah Nevarez MD; May 30 2021 3:18PM EST (Author) Normal [employer] Dermatopathologyon Dermatopathology Name MOISES KANG Pathologist: [...] These were compared to the original melanoma ([id number]) and are consistent with a metastatic focus [...] that were compared to the original melanoma ([id number]) and are smaller with less cytoplasm compared [...] determined by the Department of Pathology at [facility]. The FDA does not require this test [...] landis-yellow irregularly shaped piece of skin measuring 37m10n8rb. The specimen is embedded in toto. B: Received in formalin is a landis-yellow irregularly shaped piece of skin measuring 57a8c3sw. The specimen is embedded in toto. C: Received in formalin is a landis-yellow irregularly shaped piece of skin measuring 55o96m5ih. The specimen is embedded in toto. D: Received in formalin is a landis ellipse of skin measuring [id number], oriented by the surgeon with short stitch [...] Block 1 is at 12 o'clock. ink/05/21/2021 [facility]at[facility] [place], [place] [id number] [place] [address] Normal [facility] Comment on above: Performed By: #### D #### Dermatopathology HCG,URINEon 05-17-2021 Beta HCG ( test) Ql (U) Negative Normal Negative [facility] Comment on above: Performed By: #### H CGU #### [facility] [address] [place] [address] LYMPH GLANDon 05-17-2021 LYMPH GLAND Patient Name: AILYN KANG STUDY: LYMPH GLAND; 05/17/2021 12:45 pm INDICATION: Malignant melanoma of right posterior leg. COMPARISON: None. ACCESSION NUMBER(S): [id number] ORDERING CLINICIAN: SARAH NEVAREZ TECHNIQUE: DIVISION OF [...] as stated. This study was interpreted at [place], [place]. Electronically signed by: TAMY LAWTON MD Normal [facility] NM Lymph Glandon 05-17-2021 NM Lymph node Views Normal [facility]-A dmin Main Work Phone: No Panel Informationon 05-17 GN-Fdcevmh-P [facility] Work Phone: Order Reconciliationon 05-17 Order [...] 4 days PRN pain, Dx: G89.18 Normal [facility] Patient Profile - Preop v2on 05-17-2021 Patient Profile - Preop v2 Profile: Initial Info: How to be AddressedSamantha Spoken Language PreferredEnglish Source of Informationpatient Are you currently using the Personal Electronic Health Record or [facility] Are you interested in learning more about [facility] for the management of your healthnot at this time Stated Reason for Admissionwide excision melanoma right posterior leg, keystone flap and sentinel lymph node biopsy Primary Contact Name and NumberChleigh ann lao [phone] Limitations on Visitors/Phone Callsnone Patient Belongingsremains with patient Patient Belongings Remaining with Patientclothing; cell phone/electronics Medications Brought to Hospitalno General Health: Weight in kg63.6 kilogram(s) Weight in heo449.2 pound(s) Weight Methodstated Height in feet5 feet Height in inches8 inch(es) Height in cm172.7 centimeter(s) Height Methodstated BMI (kg/m2)21.324 square meter Patient or Family Member Reaction to Anesthesianever had anesthesia Blood Avoidance/Restrictionsn one Previous Transfusion Reactionno Health Mgmt: Symptoms/Conditions Managed at [facility] Are You no Are You Currently Breastfeedingno Barriers to Managing Healthnone Relationship/Environ: Living Arrangementshouse Lives Withsignificant other Resource/Environmental Concernsnone [facility] Anticipated at Transitionnone Substance: Current or [...] instruction; written material Cultural Considerationsnone Developmental Considerationsnone Presybeterian Considerationsnone Other learner availableno [place] RiskPatient location auto qualifies him/her for HIGH RISK. Are there any cultural, spiritual, mandaeism practices/values/needs that are important for us to knowno Do you want a visit/item from [facility] Would you like your Child Protection Specialist/Director Product Development notifiedno Pain Scalenumerical 0-10 Pain Scale Educationteaching [...] 17-May-2021 09:34 by Arabella Luis (ERICK DOWELL) [facility] Preop Checkliston 05-17-2021 Preop Checklist Preop Checklist: Preop Checklist: Arrival [id number] Arrival Time08:55 Procedure Typewide excision melanoma right posterior leg, keystone flap and sentinel lymph node biopsy Temperature C37.1 degrees C Temperature F98.7 degrees F Heart Rate92 beats per minute Respiratory Rate16 breath per minute Blood Pressure Fvfqiihd460 mm/Hg Blood Pressure Ybajcddtl86 mm/Hg NPO [id number] 22:00 Allergy Bandno known allergies Consent Signedyes [...] Checklist Last Updated: 17-May-2021 09:36 by Arabella Lusi (ERICK DOWELL) [facility] Urine Teston 05-17 HCG ( test) Ql (U) Negative Negative DJ-Ahwyqvq-B dmin Main Work Phone: Initial Visit (General Surge ry)on 05-02-2021 Initial Visit (General Surgery) Diagnoses/Problems Malignant melanoma of lower leg, right (172.7) (C43.71) *Orders Malignant melanoma of lower leg, right Urine Test; Status:Active - Retrospective By Protocol Authorization; Requested for:02May2021; Perform:Lab Services - Lab To Draw (Non-Blood Test); Due:31Jul2021; Last Updated By:Di Giles; 05/02/2021 3:07:40 PM;Ordered; For:Malignant melanoma of lower leg, right; Ordered By:Saarh Nevarez; Malignant melanoma of lower leg, right [...] errors Chief Complaint Melanoma History of Present Tgoqtep97-mwus-lqv woman referred from [facility] for right [...] May 02 2021 4:04PM EST (Author) Normal [facility] Vital Signs Date Time Vital Sign Value Performing Clinician Facility 08-26-2024 10:04-0400 Body mass index (BMI) [Ratio] 20.97 kg/m2 [facility] 08-26-2024 10:04-0400 Body weight 64.41 kg [facility] 08-26-2024 10:04-0400 Diastolic blood pressure 82 mm[Hg] [facility] 08-26-2024 10:04-0400 Systolic blood pressure 118 mm[Hg] [facility] 05-22-2023 08:55-0400 Body temperature 97.8 [degF] MD Sarah Nevarez Work Phone: [facility] 05-22-2023 08:55-0400 Body weight 69.85 kg MD Sarah Nevarez Work Phone: [facility] 05-22-2023 08:55-0400 Diastolic blood pressure 68 mm[Hg] MD Sarah Nevarez Work Phone: [facility] 05-22-2023 08:55-0400 Heart rate 79 /min MD Sarah Nevarez Work Phone: [facility] 05-22-2023 08:55-0400 Respiratory rate 16 /min MD Sarah Nevarez Work Phone: [facility] 05-22-2023 08:55-0400 SaO2% (BldA) [Mass fraction] 98 % MD Sarah Nevarez Work Phone: [facility] 05-22-2023 08:55-0400 Systolic blood pressure 108 mm[Hg] MD Sarah Nevarez Work Phone: [facility] 01-21-2023 14:57-0500 Body temperature 97.8 [degF] MD Sarah Nevarez Work Phone: [facility] 01-21-2023 14:57-0500 Body weight 67.2 kg MD Sarah Nevarez Work Phone: [facility] 01-21-2023 14:57-0500 Diastolic blood pressure 79 mm[Hg] MD Sarah Nevarez Work Phone: [facility] 01-21-2023 14:57-0500 Heart rate 72 /min MD Sarah Nevarez Work Phone: [facility] 01-21-2023 14:57-0500 Respiratory rate 16 /min MD Sarah Nevarez Work Phone: [facility] 01-21-2023 14:57-0500 SaO2% (BldA) [Mass fraction] 98 % MD Sarah Nevarez Work Phone: [facility] 01-21-2023 14:57-0500 Systolic blood pressure 119 mm[Hg] MD Sarah Nevarez Work Phone: [facility] 07-08-2022 13:02-0400 Body height 172.72 cm MD Amanda Rosario Work Phone: [facility] 07-08-2022 13:02-0400 Body temperature 98 [degF] MD Amanda Rosario Work Phone: [facility] 07-08-2022 13:02-0400 Body weight 67.81 kg MD Amanda Rosario Work Phone: [facility] 07-08-2022 13:02-0400 Diastolic blood pressure 71 mm[Hg] MD Amanda Rosario Work Phone: [facility] 07-08-2022 13:02-0400 Heart rate 95 /min MD Amanda Rosario Work Phone: [facility] 07-08-2022 13:02-0400 Respiratory rate 20 /min MD Amanda Rosario Work Phone: [facility] 07-08-2022 13:02-0400 SaO2% (BldA) [Mass fraction] 97 % MD Amanda Rosario Work Phone: [facility] 07-08-2022 13:02-0400 Systolic blood pressure 115 mm[Hg] MD Amanda Rosario Work Phone: [facility] 05-30-2021 14:47-0400 Body height 173 cm Price Girard Work Phone: VA-Jwhcvcb-Gggbx Main Work Phone: 05-30-2021 14:47-0400 Body mass index (BMI) [Ratio] 21.58 kg/m2 Price Girard Work Phone: QV-Bvzfolt-Jvsbp Main Work Phone: 05-30-2021 14:47-0400 Body surface area Derived from formula 1.77 m2 Price Girard Work Phone: EO-Eaebvyc-Bhmul Main Work Phone: 05-30-2021 14:47-0400 Body temperature 98.6 [degF] Price Girard Work Phone: GK-Bkdkgtv-Jxhlj Main Work Phone: 05-30-2021 14:47-0400 Body weight 64.6 kg Price Girard Work Phone: DK-Eabevug-Zpptz Main Work Phone: 05-30-2021 14:47-0400 Diastolic blood pressure 77 mm[Hg] Price Girard Work Phone: MO-Jdkmqbs-Ftwug Main Work Phone: 05-30-2021 14:47-0400 Heart rate 103 /min Price Girard Work Phone: CS-Gblypue-Ivodk Main Work Phone: 05-30-2021 14:47-0400 Respiratory rate 16 /min Price Girard Work Phone: IT-Jmeaoyh-Gnkcn Main Work Phone: 05-30-2021 14:47-0400 SaO2% (BldA) [Mass fraction] 99 % Price Girard Work Phone: JZ-Qbdvmfc-Rprlr Main Work Phone: 05-30-2021 14:47-0400 Systolic blood pressure 131 mm[Hg] Price Girard Work Phone: ZI-Zvtakfw-Ebucp Main Work Phone: 05-30-2021 14:47-0400 0 1 Price Girard Work Phone: EE-Zdtcbwl-Vsbbk Main Work Phone: Comment on above: [employer] 1995 00:00-0400 >na< 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 Encounters Encounter Date Encounter Type Care Provider Facility Start: 08-26-2024 End: 08-26-2024 Office outpatient visit 5 minutes [facility] Kt Nurse [facility] Comment on above: GA: 8w1d Start: 08-26-2024 End: 08-26-2024 ambulatory DELVIS KT Not Available Start: 08-23-2024 End: 08-23-2024 Bamboo flowsheet Delvis Kt DO Work Phone: [facility] Start: 08-23-2024 End: 08-23-2024 Bamboo flowsheet Delvis Kt DO Work Phone: [facility] Start: 02-22-2024 End: 02-22-2024 ambulatory GILBERTO HARRINGTON Not Available Start: 02-10-2024 End: 02-10-2024 ambulatory DELVIS KT Not Available Start: 11-18-2023 End: 11-18-2023 ambulatory DELVIS KT Not Available Start: 10-06-2023 End: 10-06-2023 ambulatory DELVIS KT Not Available Start: 08-19-2023 ambulatory Mike Wagner Facility:[facility] Start: 05-22-2023 End: 05-22-2023 ambulatory MD Sarah Nevarez Work Phone: [facility] Work Phone: Start: 05-22-2023 End: 05-22-2023 Registered Recurring MD Sarah Nevarez Work Phone: [facility] Work Phone: Start: 04-07-2023 End: [...] 01-21-2023 ambulatory MD Sarah Nevarez Work Phone: [facility] Work Phone: Start: 01-21-2023 End: 01-21-2023 Registered Recurring MD Sarah Nevarez Work Phone: [facility] Work Phone: Start: 01-13-2023 End: 01-13-[address] DELVIS MERAZ . Facility:[facility] Start: 01-01-2023 Encounter for genera l adult medical examination without abnormal findings DR MIKE WAGNER [facility] Start: 12-31-2022 End: 01-01-[address] MIKE WAGNER Facility:[facility] Start: 12-31-2022 End: 01-01-2023 Encounter for general adult medical examination without abnormal findings DR MIKE WAGNER Facility:[facility] Start: 07-08-2022 End: 07-08-2022 Registered Recurring MD Amanda Rosario [facility] Start: 06-16-2022 End: 06-16-[address] DELVIS MERAZ . Facility:[facility] Start: 04-09-[address] AMANDA ROSARIO Facility :[facility] Start: 06-22-2021 Chart Update Price Girard Work Phone[facility] Work Phone: Start: 06-18-2021 [facility] of D ermatology Start: 05-30-2021 Postop follow up vis it related to original px Price Girard Work Phone: ZJ-Qpxuezy-Pdapo Main Work Phone: Procedures Date Procedure Procedure Detail Performing Clinician Start: 08-26-2024 End: 08-26-2024 Urnls dip stick/tablet rgnt non-auto w/o micrscp Delvis Meraz DO Work Phone: Start: 01-09-2023 Ultrasonography of limb MD Sarah [...] Duplex scan of lower limb veins MD Amadna Rosario Work Phone: Start: 12-31-2021 Ultrasonography of limb MD Amanda Rosario Work Phone: Start: 07-01-2021 Positron emission to mography with computed tomography MD Amanda Rosario Work Phone: Start: 06-18-2021 Essence david Plan of Treatment Date Care Activity Detail Author Start: 09-26-2024 End: 09-26-2024 Patient encounter procedure 09/26/2024 2:20 PM EST Routine [facility] [address] [place] [id number] Delvis Meraz, [address] [place] [address] [facility] Start: 08-26-2024 End: 08-26-2025 ABO/Rh ABO/Rh Lab Routine Missed menses , unspecified gestational age Expected: 08/26/2024 (Approximate), Expires: 08/26/2025 [facility] Comment on above: Expected: 08/26/2024 (Approximate), Expires: 08/26/2025 Start: 08-26-2024 End: 08-26-2025 Blood type and Indirect antibody screen panel - Blood Type and screen Lab Routine Missed menses , unspecified gestational age Expected: 08/26/2024 (Approximate), Expires: 08/26/2025 [facility] Work Phone: Comment on above: Expected: 08/26/2024 (Approximate), Expires: 08/26/2025 Start: 08-26-2024 End: 08-26-2025 Drugs of abuse panel - Urine by Screen method Rapid drug screen, urine Lab Routine , unspecified gestational age Encounter for supervision of normal first in first trimester Expected: 08/26/2024 (Approximate), Expires: 08/26/2025 [facility] Comment on above: Expected: 08/26/2024 (Approximate), Expires: 08/26/2025 Start: 08-26-2024 End: 08-26-2025 US Pelvis transvaginal US OB transvaginal Imaging Routine Missed menses Expected: 08/26/2024 (Approximate), Expires: 08/26/2025 [facility] Comment on above: Expected: 08/26/2024 (Approximate), Expires: 08/26/2025 Start: 08-26-2024 End: 08-26-2024 ambulatory 08/26/2024 10:00 AM EDT Initial [facility] [address] [place] [id number] [facility] Start: 08-26-2024 End: 08-26-2024 Professional / ancillary services management 08/26/2024 9:30 AM EDT Ancillary Procedure [facility] [address] [place] [id number] [facility] Start: 08-23-2024 End: 08-23-2024 Patient encounter procedure 08/23/2024 10:50 AM EDT Routine [facility] [address] [place] [address] Delvis Meraz, DO [address] [place], [place] [address] Arrived [facility] Comment on above: Arrived Start: 07-24-2024 Influenza vaccination Influenz a Vaccine (#1) [facility] Start: 05-23-2022 [facility] Start: 04-25-2022 [facility] Start: 03-28-2022 [facility] Start: 02-28-2022 [facility] Start: 01-31-2022 [facility] Start: 01-28-2022 [facility] Start: 12-31-2021 [facility] Start: 12-24-2021 [facility] Start: 11-29-2021 [facility] Start: 11-01-2021 [facility] Start: 10-28-2021 [facility] Start: 10-02-2021 End: 10-03-2021 [facility] Start: 09-06-2021 [facility] Start: 09-03-2021 [facility] Start: 08-08-2021 [facility] Start: 07-11-2021 [facility] Adrenocorticotropic hormone measurement [facility] Bacteria identified in Urine by Culture Urine culture Microbiology Routine Missed menses Ordered: 08/26/2024 [facility] Comment on above: Ordered: 08/26/2024 CBC W Auto Different ial panel - Blood CBC and differential Lab Routine Missed menses , unspecified gestational age Ordered: 08/26/2024 [facility] Comment on above: Ordered: 08/26/2024 Comprehensive metabo lic 2000 panel - Serum or Plasma [facility] Work Phone: Comprehensive metabo lic 1999 panel - Serum or Plasma [facility] Comprehensive metabo lic 1999 panel - Serum or Plasma [facility] Comprehensive metabo lic 1999 panel - Serum or Plasma [facility] CT Abdomen and Pelvi s W contrast IV [facility] Work Phone: CT Abdomen and Pelvi s W contrast IV [facility] CT Abdomen and Pelvi s W contrast IV [facility] CT Chest W contrast IV [facility] Work Phone: CT Chest W contrast IV [facility] CT Chest W contrast IV [facility] Ferritin [Mass/volum e] in Serum or Plasma [facility] Work Phone: Hemoglobin A1c/Hemoglobin.total in Blood Hemoglobin A1c Lab Routine Missed menses , unspecified gestational age Ordered: 08/26/2024 [facility] Comment on above: Ordered: 08/26/2024 Hepatitis B virus blevins rface Ag [Presence] in Serum or Plasma by Immunoassay Hepatitis B surface antigen Lab Routine Missed menses , unspecified gestational age Ordered: 08/26/2024 [facility] Comment on above: Ordered: 08/26/2024 Hepatitis C virus Ab [Presence] in Serum or Plasma by Immunoassay Hepatitis C antibody Lab Routine Missed menses , unspecified gestational age Ordered: 08/26/2024 [facility] Comment on above: Ordered: 08/26/2024 HIV-1/HIV-2 antigen/ antibody combination immunoassay HIV-1 and HIV-2 antibodies Lab Routine Missed menses , unspecified gestational age Ordered: 08/26/2024 [facility] Comment on above: Ordered: 08/26/2024 Lactate dehydrogenas e [Enzymatic activity/volume] in Unspecified specimen [facility] Work Phone: Reagin Ab [Presence] in Serum by RPR RPR Lab Routine Missed menses , unspecified gestational age Ordered: 08/26/2024 [facility] Comment on above: Ordered: 08/26/2024 Rubella antibody, IgG Rubella an tibody, IgG Lab Routine Missed menses , unspecified gestational age Ordered: 08/26/2024 [facility] Comment on above: Ordered: 08/26/2024 Thyrotropin [Units/v olume] in Serum or Plasma [facility] Thyroxine (T4) free [Mass/volume] in Serum or Plasma [facility] Triiodothyronine (T3 ) Free [Mass/volume] in Serum or Plasma [facility] Work Phone: [facility] Immunizations Immunization Date Immunization Notes Care Provider Molly chinchilla 07-09-2018 influenza virus vaccine, unspecified formulation Delvis Meraz DO Work Phone: [facility] 1995 pneumococcal conjuga te vaccine, 7 valent 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 Payers Date Payer Category Payer Unknown 2021 Self-pay [id number] 2021 Unknown [id number] 2021 Unknown [id number] 2019 Unknown [id number] 1997 Unknown [id number] 2.16.84 0.1.831150.3.579.2.593 1997 Unknown [id number] 2.16.84 0.1.536076.3.579.2.593 1997 Unknown [id number] 2.16.84 0.1.485053.3.579.2.593 1997 Unknown [id number] 2.16.84 0.1.222880.3.579.2.593 1997 Unknown [id number] 2.16.84 0.1.433346.3.579.2.593 1997 Unknown [id number] 2.16.84 0.1.095593.3.579.2.593 1997 Unknown [id number] 2.16.84 0.1.713803.3.579.2.593 1997 Unknown [id number] 2.16.84 0.1.265624.3.579.2.593 1997 Unknown [id number] 2.16.84 0.1.855164.3.579.2.593 1997 Unknown [id number] 2.16.84 0.1.761592.3.579.2.593 1997 Unknown [id number] 2.16.84 0.1.362375.3.579.2.1259 1997 Unknown [id number] 2.16.84 0.1.582111.3.579.2.1259 1997 Unknown [id number] 2.16.84 0.1.274895.3.579.2.1259 1997 Unknown [id number] 2.16.840 .1.508853.3.579.2.1259 1997 Unknown [id number] 2.16.840. 1.935184.3.579.2.1259 1959 Unknown [id number] 1959 Unknown [id number] Unknown [id number] 2.16.8 [id number] Social History Date Type Detail Facility Start: 06-18-2021 Dept. 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 Start: 1995 Sex Assigned At Female [facility] Start: 07-08-2022 End: 04-10-2023 Tobacco smoking status NHIS Never smoked tobacco (finding) [facility] Start: 04-10-2023 Tobacco use and exposure Smokeless tobacco non-user [facility] Start: 02-22-2024 End: 08-26-2024 Alcoholic beverage intake Ex-drinker (finding) [facility] Start: 02-22-2024 History of Social function [facility] Start: 02-22-2024 Social connection and isolation panel [facility] Do you belong to any clubs or organizations such as samaritan groups, unions, fraternal or athletic groups, or [...] Identifies as female gender (finding) [facility] Start: 07-14-2024 [facility] Goals Date Patient Goal Desired Activity /State Clinical Notes 05-14-2021 to 08-26-2024 Jasmyne Segura - 08/26/2024 10:00 AM EDT Note Date & Type Note Facility 08-26-2024 History of Presen t illness Narrative Reason for Appointment: Patient ID: Ailyn Resendiz is a 29 y.o. female who presents for Initial Visit Patient presents today for a Nurse OB Intake appointment. Patient is 8w1d with a Estimated Date of Delivery: 04/06/25 OB History Para Term AB Living 3 1 1 1 1 SAB IAB Ectopic Multiple Live Births 1 # Outcome Date GA Lbr Moses/2nd Weight Sex Type Anes PTL Lv 3 Current 2 SAB 06/2024 1 Term 10/08/23 37w6d 8 lb 6 oz M Current Medications: has a current medication list which includes the following prescription(s): magnesium oxide, mv-min-fe fum-fa-dha, and progesterone. Medical History: Active Ambulatory Problems Diagnosis Date Noted Anemia 04/14/2023 Cervical polyp 04/14/2023 Gynecological disease 04/14/2023 Malignant melanoma of right lower limb, including hip ([facility]) 04/14/2023 Menstrual disorder 04/14/2023 Missed menses 04/14/2023 Other specified noninflammatory disorders of vagina 04/14/2023 Solitary pulmonary nodule 04/14/2023 LPRD (laryngopharyngeal reflux disease) 02/22/2024 Non-recurrent acute suppurative otitis media of right ear without spontaneous rupture of tympanic membrane 02/22/2024 Acute tonsillitis due to other specified organisms 02/22/2024 Resolved Ambulatory Problems Diagnosis Date Noted No Resolved Ambulatory Problems Past Medical History: Diagnosis Date BMI 21.0-21.9, adult Encounter for annual routine gynecological examination without abnormal findings Irregular menses Malignant melanoma (CMS/HCC) Pelvic pressure in female Screening for STD (sexually transmitted disease) Family History Problem Relation Name Age of Onset Hypertension Father Celio Heart disease Father Celio Cancer Maternal Grandmother Ale Diabetes Maternal Grandfather Jorge Heart disease Maternal Grandfather Jorge Hypertension Maternal Grandfather Jorge Heart disease Paternal Grandfather Serge Diabetes Paternal Grandfather Serge Social History Tobacco Use Smoking status: Never Smokeless tobacco: Never Vaping Use Vaping status: Never Used Substance Use Topics Alcohol use: Not Currently Drug use: Never Past Surgical History: Procedure Laterality Date EXCISION 04/2021 wide excision right posterior leg-Melanoma No Known Allergies Vitals: Estimated body mass index is 20.97 kg/m as calculated from the following: Height as of 02/22/24: 5' 9 . Weight as of this encounter: 142 lb. BP: 118/82 No LMP recorded. Patient is . Assessment/Plan Diagnoses and all orders for this visit: Missed menses - Type and screen; Future - ABO/Rh; Future - CBC and differential - Hemoglobin A1c - RPR - Rubella antibody, IgG - Hepatitis B surface antigen - Hepatitis C antibody - HIV-1 and HIV-2 antibodies - Urine culture - US OB transvaginal; Future - POCT , urine manually resulted - POCT urinalysis dipstick manually resulted , unspecified gestational age - Type and screen; Future - ABO/Rh; Future - CBC and differential - Hemoglobin A1c - RPR - Rubella antibody, IgG - Hepatitis B surface antigen - Hepatitis C antibody - HIV-1 and HIV-2 antibodies - Rapid drug screen, urine; Future Encounter for supervision of normal first in first trimester - Rapid drug screen, urine; Future History of miscarriage - Progesterone 200 MG suppository; Insert 200 mg into the vagina at bedtime Insert suppository vaginally every night at bedtime until 12 weeks gestation Nurse Note: OB Intake: Patient presents today for first OB visit. Patients history has been reviewed in great detail including any potential risks. Patient signed consent forms and patient desires testing in both trimesters. Patient currently has no complaints and has been advised to drink 6-8 glasses of water a day, eat no raw or undercooked meat, and stay away from [facility]. Patient has also been advised to not change litter boxes and eat 6 small meals a day. Patient has been consulted regarding the do's and don'ts of . Patient was given labs and all questions and concerns were answered. Follow Up: Patient is to return in 4 weeks for routine OB appointment. Follow Up: Patient is to have labs drawn at directed and return to office for initial OB appointment with provider. Patient may call office as needed with any concerns or questions. Nurse Visit Completed by: Jasmyne Segura documented in this encounter [facility] 05-23-2023 Progress note Note Date/Time May 22, 2023 9:03[facility] [place] [address] Hem/Onc Follow Up Note - OP Signed Patient: Ailyn Resendiz MR#: [id number] : 1995 Acct:[id number] Age/Sex: 27 / F Type: REG RCR [...] of restaging CT CAP by phone with COMPLIANCE CLERK in October--no evidence of recurrence. Saw dermatology [...] dyspepsia. We will coordinate parenteral iron at [facility] per her request. Normal thyroid, cortisol,and CMP [...] trauma. She was seen by dermatology at [facility] in [place] and underwent a biopsy of the right [...] 3. Venofer for iron deficiency anemia at [facility] 03/2022 ROS Details: All systems reviewed & [...] Mild Nivolumab infusion reaction in February 2022. [facility] - History Attestation statement: The following [...] DAILY PRN Anxiety 06/18/21 [History Confirmed 05/22/23] NHJ-kmql-PJ-omega 3-fat com #1 27 mg-1 mg-300 mg [...] Creatinine Clear 154.92, Sodium 136, Potassium 4.2, Awjzfjid596, Carbon Dioxide 26.1, Anion Gap 10.1, BUN [...] % (Auto) 79.8, Lymph % (Auto) 12.8, [place] % (Auto) 6.4, Eos % (Auto) 0.6, Baso % (Auto) 0.4, Nucleat RBC Rel Count 0.2, Neut # (Auto) 8.2 H, Lymph # (Auto) 1.3, [place] # (Auto) 0.7, Eos # (Auto) 0.1, [...] 4% with ferritin 7. Coordinated Venofer infusionsat [facility] (300mg IV x 3 doses) 03/2022 with followup CBC, serum iron profile, and ferritin in one month. Consider GI evaluation for iron deficiency. 07/09/2022: She is doing well on oral iron recommended by her yard pipe grader. She does not plan to have children anytime soon, but discussed with her yard pipe grader the best iron supplementation to be on [...] for coordination of care (as documented) and deyc-of-kctp counseling of patient and/or family. Dictated By: Amanda Rosario MD DD/ 0902 Signed By: <Electronically signed by MD Amanda Rosario> 05/23/23 6902 [facility] Work Phone: 1(364) 778-528603-01-2023 Progress note Author Amanda Rosario [facility] January 21, 2023 8:51pm Note Date/Time January 21, 2023 3:[address] [facility] at [address] [address] Hem/Onc Follow Up Note - OP Signed Patient: Ailyn Resendiz MR#: [id number] : 1995 Acct:[id number] Age/Sex: 27 / F Type: REG RCR Copies to: MD Mike Ewing MD~ Subjective Date/Time of Service: Date of Service: 01/21/2023 Time of Service: 15:00 Chief Complaint: Patient is here today for a 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 No new concerns HPI: 01/21/2023: Ailyn had review of restaging CT CAP by phone with COMPLIANCE CLERK in October--no evidence of recurrence. Saw dermatology [...] dyspepsia. We will coordinate parenteral iron at [facility] per her request. Normal thyroid, cortisol,and CMP [...] trauma. She was seen by dermatology at [facility] in [place] and underwent a biopsy of the right [...] 3. Venofer for iron deficiency anemia at [facility] 03/2022 ROS Details: All systems reviewed & [...] Mild Nivolumab infusion reaction in February 2022. [facility] - History Attestation statement: The following [...] DAILY PRN Anxiety 06/18/21 [History Confirmed 01/21/23] HAD-elpx-FE-omega 3-fat com #1 27 mg-1 mg-300 mg [...] 4% with ferritin 7. Coordinated Venofer infusionsat [facility] (300mg IV x 3 doses) 03/2022 with followup CBC, serum iron profile, and ferritin in one month. Consider GI evaluation for iron deficiency. 07/09/2022: She is doing well on oral iron recommended by her yard pipe grader. She does not plan to have children anytime soon, but discussed with her yard pipe grader the best iron supplementation to be on [...] for coordination of care (as documented) and gxsi-nv-ewcb counseling of patient and/or family. Dictated By: Amanda Rosario MD DD/ 1500 Signed By: <Electronically signed by MD Amanda Rosario> 01/21/232050 [facility] Work Phone: 1(861) 307-170008-17-2022 Progress note Author Ale Malone [facility] July 09, 2022 1:35pm Note Date/Time July 08, 2022 1: 31pm [facility] at [place] [id number] Hem/Onc Follow Up Note - OP Signed with Addenda Patient: Ailyn Resendiz MR#: [id number] : 1995 Acct:[id number] Age/Sex: 27 / F Type: REG RCR Copies to: MD Sarah Gillespie MD Marc Naderer, MD~ ADDENDUM1 After discussion with Dr. Rosario, we will have the patient follow-up in 3 months instead of 6, and will plan repeat CT c/a/p prior to that visit. Addendum Dictated By: KIKI Ale Glassgene Addendum Signed By: 07/09/221334 Addendum Cosigned By: [...] dyspepsia. We will coordinate parenteral iron at [facility] per her request. Normal thyroid, cortisol,and CMP [...] trauma. She was seen by dermatology at [facility] in [place] and underwent a biopsy of the right [...] % (Auto) 61.2, Lymph % (Auto) 26.6, [place] % (Auto) 9.7, Eos % (Auto) 1.2, Baso % (Auto) 1.3, Neut # (Auto) 3.4, Lymph # (Auto) 1.5, [place] # (Auto) 0.5, Eos# (Auto) 0.1, Baso [...] ferritin 7. Will have Venofer infusions at [facility] (300mg IV x 3 doses) with followup CBC, serum iron profile,and ferritin in one month. Consider GI evaluation for iron deficiency. 07/09/2022: She is doing well on oral iron recommended by her yard pipe grader. She does not plan to have children anytime soon, but discussed with her yard pipe grader the best iron supplementation to be on [...] for coordination of care (as documented) and juqa-le-zros counseling of patient and/or family. Dictated By: Ale Malone APRN DD/ 1331 Signed By: <Electronically signed by KIKI Malone> 07/09/22 0958 [facility] Work Phone: 1(195) 750-677205-12-2022 Progress note Author Amanda Rosario [facility] April 03, 2022 8:56pm Note Date/Time April 02, 2022 8:30p [facility] [place] [address] Hem/Onc Follow Up Note - OP Signed Patient: Ailyn Resendiz MR#: [id number] : 1995 Acct:[id number] Age/Sex: 26 / F Type: REG RCR Copies to: MD Mkie Ewing MD~ Subjective Date/Time of Service: Date [...] dyspepsia. We will coordinate parenteral iron at [facility] per her request. Normal thyroid, cortisol,and CMP [...] trauma. She was seen by dermatology at [facility] in [place] and underwent a biopsy of the right [...] Mild Nivolumab infusion reaction in February 2022. [facility] - History Attestation statement: The following [...] Creatinine Clear 115.14, Sodium 136, Potassium 4.1, Tngpsygo391, Carbon Dioxide 24.5, BUN 9, Creatinine 0.76, [...] % (Auto) 46.7, Lymph % (Auto) 30.6, [place] % (Auto) 20.8, Eos % (Auto) 0.9, Baso % (Auto) 1.0, Neut # (Auto) 1.6 L, Lymph # (Auto) 1.1, [place] # (Auto) 0.7, Eos # (Auto) 0.0, [...] ferritin 7. Will have Venofer infusions at [facility] (300mg IV x 3 doses) with followup [...] for coordination of care (as documented) and ynyd-xb-rmle counseling of patient and/or family. Dictated By: Amanda Rosraio MD DD/ 28 Signed By: <Electronically signed by MD Amanda Rosario> 04/03/222055 [facility] Work Phone: 1(791) 322-653202-23-2022 Progress note Author Amanda Rosario [facility] January 15, 2022 9:15pm Note Date/Time January 15, 2022 11:55am [facility] [place] [address] Hem/Onc Follow Up Note - OP Signed Patient: Ailyn Kang MR#: [id number] : 1995 Acct:[id number] Age/Sex: 26 / F Type: REG RCR [...] trauma. She was seen by dermatology at [facility] in [place] and underwent a biopsy of the right [...] for coordination of care (as documented) and toko-ok-dsxp counseling of patient and/or family. Dictated By: Amanda Rosario MD DD/ 1155 Signed By: <Electronically signed by MD Amanda Rosario> 01/15/22 2115 [facility] Work Phone: 1(510) 380-250911-11-2021 Progress note Author Denia Alvares [facility] October 03, 2021 10:47am Note Date/Time October 03, 2021 10:34am [facility] [place] [address] Hem/Onc Follow Up Note - OP Signed Patient: Ailyn Kang MR#: [id number] : 1995 Acct:[id number] Age/Sex: 26 / F Type: REG RCR [...] trauma. She was seen by dermatology at [facility] in [place] and underwent a biopsy of the right [...] Negative for environmental allergies and food allergies. [facility] - Medical History Medical History: Medical [...] Creatinine Clear 112.19, Sodium 139, Potassium 4.1, Ddmdoird308, Carbon Dioxide 26.4, BUN 9, Creatinine 0.78, [...] % (Auto) 66.7, Lymph % (Auto) 23.1, [place] % (Auto) 8.3, Eos % (Auto) 1.0, Baso % (Auto) 0.9, Neut # (Auto) 5.0, Lymph # (Auto) 1.7, [place] # (Auto) 0.6, Eos# (Auto) 0.1, Baso [...] for coordination of care (as documented) and crfl-ew-jtrq counseling of patient and/or family. Dictated By: Denia Alvares APRN DD/ 1025 Signed By: <Electronically signed by KIKI Alvares> 10/03/21 1047 [facility] Work Phone: 1(102) 613-820208-27-2021 Progress note Author Amanda Rosario [facility] July 19, 2021 12:54pm Note Date/Time July 18, 2021 2: 10pm [facility] [place] [address] Hem/Onc Follow Up Note - OP Signed Patient: Ailyn Kang MR#: [id number] : 1995 Acct:[id number] Age/Sex: 26 / F Type: REG RCR [...] trauma. 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 Dictated By: Amanda Rosario MD DD/ 1409 Signed By: <Electronically signed by MD Amanda Rosario> 07/19/21 1258 [facility] Work Phone: 1(181) 570-979008-03-2021 Consult note Author Amanda Rosario [facility] June 24, 2021 10:09pm Note Date/Time June 24, 2021 2:[address] [facility] [place] [address] Hem/Onc Consult Note - OP Signed Patient: Ailyn Kang MR#: [id number] : 1995 Acct:[id number] Age/Sex: 26 / F Type: REG RCR Copies to: MD Price Ewing MD~ HPI Date/Time of Service: Date of Service: 06/24/2021 Time of Service: 14:16 Referring Provider/PCP: Referring Provider: Sarha Nevarez MD PCP: Price Girard MD - [...] trauma. 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 Note Recipients: Price Girard MD - [phone] [] Bettina Madera PAC - [phone] [] Attestation: Note Completion: Attending AttestationI performed the procedure without a resident Electronic Signatures: Sarah Nevarez) (Signed 17-May-2021 18:18) Authored: Post-Operative Note, Chart Review, Note Completion Last Updated: 17-May-2021 18:18 by Sarah Nevarez)[facility] 05-17-2021 History of Present illness Kpabkpeto44-mvpp-qmi woman who underwent wide excision right posterior calf melanoma with [place] flap reconstruction as well as right inguinal and iliac sentinel lymph node biopsy on 05/17/2021. Pathology report has not yet resulted. She is recovering well.NP-Pjjteqy-Hjsnv Main Work Phone: 1(510) [phone] History of Present illness Narrative 25-year-old woman who underwent wide excision right posterior calf melanoma with [place] flap reconstruction as well as right inguinal and iliac sentinel lymph node biopsy on 05/17/2021. Pathology report has not yet resulted. She is recovering well.[facility] Work Phone: 1(599) 840-587506-25-2021 NoteHistory & Physical Reviewed: /Lactating: Are You [...] Patient Profile - Preop v2 17-May-2021 09:27[facility]06-22-2021 NoteAccession #: [id number] Pathologist: ANUJA OLIVO MD Date of Procedure: 05/14/2021 Date Received: 05/14/2021 Submitting Physician: SARAH NEVAREZ MD Location: [facility] Copy To/Referring/Attending: ROLY EDGE DO FINAL DIAGNOSIS 2 SLIDES, [facility] #[id number] (BX: 04/23/2021) SKIN, RT POST LEG, SHAVE [...] MD. CANCER SUMMARY REPORT A. 2 SLIDES, [facility] #[id number] (BX: 04/23/2021): SPECIMEN Procedure: Biopsy, shave Specimen [...] report. Primary Tumor (pT): pT3b ADDITIONAL TESTING PROPOSAL MANAGER BLOCKS: Tumor Block: CSPL slide [id number] Electronically Signed Out By ANUJA OLIVO MD/BRR Microscopic Description: Microscopic examination performed. Clinical History: SHAVE/ BCC VS MM VS PG 1.9 X 1.9CM Specimens Submitted As: A: 2 SLIDES, [facility] #[id number] (BX: 04/23/2021) Gross Description: Received for consultation from [facility] are two slides labeled [id number] (BX: 04/23/2021) along with the corresponding pathology report. Slide/Block Description 2 SLIDES, [id number]. Keep Slides: N Slides Returned: N Personal Consult[facility]:Performed By: #### D #### DermatopathologyEvaluation noteN/ADept. 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 Evaluation note* Diagnosis Onset Date Resolution Status Iron deficiency anemia acute Chiari malformation type I c hronic Edema of right lower extremity chronic Encounter for antineoplastic immunotherapy chronic Malignant melanoma of right lower leg chronic [facility] Work Phone: Evaluation note* Diagnosis Onset Date Resolution Status Chiari malformation type I c hronic Edema of right lower extremity chronic Encounter for antineoplastic immunotherapy chronic Iron deficiency anemia chron ic Malignant melanoma of right lower leg chronic [facility] Work Phone: Evaluation noteNo assessment information available [facility] Work Phone: evaluation note* Diagnosis Missed menses , unspecified gestational age Encounter for supervision of normal first in first trimester History of miscarriage Personal history of other genital system and obstetric disorders documented in this encounter [facility]* RISE Order Time Frame: 1 Day, Location: Determined By Patient * Survivourship Follow Up Time Frame: 3 Months, Location: Determined By Patient [facility] Work Phone: Progress note Author Ale Malone [facility] July 09, 2022 1:35pm Note Date/Time July 08, 2022 1: 31pm [facility] [place] [address] Hem/Onc Follow Up Note - OP Signed with Addenda Patient: Ailyn Resendiz MR#: [id number] : 1995 Acct:[id number] Age/Sex: 27 / F Type: REG RCR [...] dyspepsia. We will coordinate parenteral iron at [facility] per her request. Normal thyroid, cortisol,and CMP [...] trauma. She was seen by dermatology at [facility] in [place] and underwent a biopsy of the right [...] % (Auto) 61.2, Lymph % (Auto) 26.6, [place] % (Auto) 9.7, Eos % (Auto) 1.2, Baso % (Auto) 1.3, Neut # (Auto) 3.4, Lymph # (Auto) 1.5, [place] # (Auto) 0.5, Eos# (Auto) 0.1, Baso [...] ferritin 7. Will have Venofer infusions at [facility] (300mg IV x 3 doses) with followup CBC, serum iron profile,and ferritin in one month. Consider GI evaluation for iron deficiency. 07/09/2022: She is doing well on oral iron recommended by her yard pipe grader. She does not plan to have children anytime soon, but discussed with her yard pipe grader the best iron supplementation to be on [...] for coordination of care (as documented) and vnqg-ub-utww counseling of patient and/or family. Dictated By: Ale Malone APRN DD/ 1331 Signed By: <Electronically signed by KIKI Malone> 07/09/22 3957 [facility] Work Phone: Progress note Author Amanda Rosario [facility] January 21, 2023 8:51pm Note Date/Time January 21, 2023 3:[address] [facility] at [address] [address] Hem/Onc Follow Up Note - OP Signed Patient: Ailyn Resendiz MR#: [id number] : 1995 Acct:[id number] Age/Sex: 27 / F Type: REG RCR Copies to: MD Mike Ewing MD~ Subjective Date/Time of Service: Date of Service: 01/21/2023 Time of Service: 15:00 Chief Complaint: Patient is here today for a 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 No new concerns HPI: 01/21/2023: Ailyn had review of restaging CT CAP by phone with COMPLIANCE CLERK in October--no evidence of recurrence. Saw dermatology [...] dyspepsia. We will coordinate parenteral iron at [facility] per her request. Normal thyroid, cortisol,and CMP [...] trauma. She was seen by dermatology at [facility] in [place] and underwent a biopsy of the right [...] lower leg with SLNB right inguinal lymph nodes6/ 2. Adjuvant Nivolumab commenced: 07/11/2021--05/23/2022 3. Venofer for iron deficiency anemia at [facility] 03/2022 ROS Details: All systems reviewed & [...] Mild Nivolumab infusion reaction in February 2022. [facility] - History Attestation statement: The following [...] DAILY PRN Anxiety 06/18/21 [History Confirmed 01/21/23] PRH-wupa-SC-omega 3-fat com #1 27 mg-1 mg-300 mg [...] 4% with ferritin 7. Coordinated Venofer infusionsat [facility] (300mg IV x 3 doses) 03/2022 with followup CBC, serum iron profile, and ferritin in one month. Consider GI evaluation for iron deficiency. 07/09/2022: She is doing well on oral iron recommended by her yard pipe grader. She does not plan to have children anytime soon, but discussed with her yard pipe grader the best iron supplementation to be on [...] for coordination of care (as documented) and xmib-yh-wkwa counseling of patient and/or family. Dictated By: Amanda Rosario MD DD/ 1500 Signed By: <Electronically signed by MD Amanda Rosario> 01/21/232050 [facility] Work Phone: Reason for referral (narrative)* Name Reason for referral NA [facility] 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 Summary Purpose Family History Relationship Condition Age at Onset Recorded Date/T bree grandparent Malignant neoplasm of breast Unknown Heart disease Unknown father Heart disease Unknown Advance Directives Advance Directive Response Recorded Date/ Time Advance [...] DATE CREATED AUTHOR AUTHOR'S ORGANIZ ATION 06/18/2021 [facility] DATE CREATED AUTHOR AUTHOR'S ORGANIZ ATION 08/01/2021 [facility] DATE CREATED AUTHOR AUTHOR'S ORGANIZ ATION 01/18/2022 [facility] DATE CREATED AUTHOR AUTHOR'S ORGANIZ ATION 04/08/2023 [facility] DATE CREATED AUTHOR AUTHOR'S ORGANIZ ATION 11/21/2023 [facility] DATE CREATED AUTHOR AUTHOR'S ORGANIZ ATION 08/28/2024 [facility] EPIC Care Teams (unrecognized sec tion and content) Team Status: Active Member Role Status Dates Mike Wagner MD Primary Care Provider Active Team Status: Active Member Role Status Dates Amanda Rosario MD Attending Provider Active Sarah Nevarez MD Referring Provider Active Mike Wagner MD Primary Care Provider Active Claim Adjuster Relationship Specialty Start Date End Date Mike Wagner MD [address] [place] [phone] PCP - General Family Medicine 02/09/24 Shaikh Melendrez MD [address] [place] [phone] PCP - Brian Savage 08/23/23 Claim Adjuster Relationship Specialty Start Date End Date Mike Wagner MD [address] [place] [address] PCP - General Family Medicine 02/09/24 Shaikh Melendrez MD [address] [place] [phone] PCP - [employer] 08/23/23 Goals (unrecognized section and content) Goals may be documented in a n alternate sectionGoals may be documented in an alternate sectionGoals may be documented in an alternate sectionGoals may be documented in an alternate section Reason for Visit (unrecogniz ed section and content) Reason Comments Initial Visit FOR RECORDS PERTAINING TO PATIENTS WHO ARE [...] BE BASED ON THE PRIMARY CLINICAL RECORDS. [employer] provides no warranty or guarantee of the accuracy or completeness of information in this document.
[2024-09-19 09:26] LABS: Estimated Average Glucose 91 mg/dL; Glycohemoglobin A1C 4.8 % (4.5-6.2)
[2024-09-19 09:28] LABS: Basophils Absolute Auto 0.1 10^3/uL (0.0-0.1); Basophils Percent Auto 0.6 % (0.2-2.0); Eosinophils Absolute Auto 0.1 10^3/uL (0.0-0.7); Eosinophils Percent Auto 0.8 % (0.9-7.0); Immature Granulocytes Abs Auto 0.02 10^3/uL (0.00-0.03); Immature Granulocytes Pct Auto 0.3 % (0.0-0.5); Lymphocytes Absolute Auto 1.4 10^3/uL (1.2-3.8); Lymphocytes Percent Auto 17.3 % (20.5-60.0); Mean Corpuscular HGB Conc 33.3 g/dL (29.9-35.2); Mean Corpuscular Hemoglobin 29.6 pg (26.7-34.0); Mean Corpuscular Volume 88.8 fL (81.0-99.0); Mean Platelet Volume 9.5 fL (9.5-13.5); Monocytes Absolute Auto 0.4 10^3/uL (0.3-0.8); Monocytes Percent Auto 5.2 % (1.7-12.0); Neutrophils Percent Auto 75.8 % (43.0-75.0); Platelet Count 317 10^3/uL (150-450); Red Blood Count 4.39 10^6/uL (4.20-5.40); Red Cell Distribution Width 12.7 % (11.0-15.0); White Blood Count 7.9 10^3/uL (4.0-11.0)
[2024-09-19 09:34] LABS: BOX Test Reference Lab UNITY; BOX Test Sent Out UNITY
[2024-09-19 09:41] LABS: Amphetamine Screen Urine NEGATIVE (NEGATIVE); Barbiturates Screen Urine NEGATIVE (NEGATIVE); Benzodiazepines Screen Urine NEGATIVE (NEGATIVE); Buprenorphine Screen Urine NEGATIVE (NEGATIVE); Cannabinoid Screen Urine NEGATIVE (NEGATIVE); Cocaine Screen Urine NEGATIVE (NEGATIVE); Methadone Screen Urine NEGATIVE (NEGATIVE); Methamphetamines Screen Urine NEGATIVE (NEGATIVE); Opiate Screen Urine NEGATIVE (NEGATIVE); Oxycodone Screen Urine NEGATIVE (NEGATIVE); Phencyclidine Screen Urine NEGATIVE (NEGATIVE); Tricyclic Antidepressant Urine NEGATIVE (NEGATIVE)
[2024-09-20 06:09] LABS: HBsAg Screen Negative (Negative); HCV Ab Non Reactive (Non Reactive); HIV Ab/p24 Ag Screen Non Reactive (Non Reactive)
[2024-09-20 07:08] LABS: Rubella Antibodies, IgG 1.05 index (Immune >0.99)
[2024-09-20 12:11] LABS: Rapid Plasma Reagin, Quant Non Reactive titer (NonRea<1:1)
== END 2024-09-19 08:34 | disposition home or self-care (01) ==
LOC: LAB 08:36
PROVIDERS: PCP Family Medicine; Visit Provider Obstetrics & Gynecology
DX: Z34.01 Encounter for supervision of normal first pregnancy, first trimester (principal); Z36.0 Encounter for antenatal screening for chromosomal anomalies; N92.6 Irregular menstruation, unspecified
CPT/HCPCS: 36415; 80307; 83036; 85025; 86592; 86762; 86803; 86850; 86900; 86901; 87086; 87340; 87389

== ENCOUNTER 2024-11-18 09:11 | Outpatient (OUT) | payer BC, SELFPAY ==
--- NOTE | 2024-11-18 09:18 | US_ITS ---
[address] [address] Patient Name: BRADY BARON MRN: [id number] date: 1995 Sex: F Assigned Patient Location: US Current Patient Location: US Accession/Order Number: [id number] Exam Date: 11/18/2024 09:23 Report Date: 11/18/2024 16:11 At the request of: CRUZ JOHNSON Procedure: US OB cervical length EXAMINATION: US OB anatomy, US OB cervical length HISTORY: SCREENING, , FOR ANATOMIC SURVEY Z36.89 COMPARISON: Ultrasound OB transvaginal 08/26/2024 TECHNIQUE: Transabdominal sonographic examination was performed for obstetrical and evaluation. FINDINGS: Number: 1 Heart Rate: 127.96 bpm Amniotic Fluid Volume: Subjectively normal Placental Location: POSTERIOR with lower margin 3.3 cm from os. Cervix Length: 6.02 cm , closed. ANATOMY: Normal Structures -cerebellum, choroid plexus, cisterna magna, lateral cerebral ventricles, orbits, midline falx, hard palate, four-chamber heart, RVOT, LVOT, stomach, kidneys, bladder, umbilical cord insertion into abdomen, three-vessel cord, cervical spine, thoracic spine, lumbar spine, sacral spine, right upper extremity, left upper extremity, right lower extremity, left lower extremity. SUBOPTIMALLY SEEN: None ABNORMALITIES: 5 mm hyperechoic debris versus structure within stomach. BIOMETRY: BPD: 4.74 cm; 20 weeks 2 days; 57.70 % HC: 17.95 cm; 20 weeks 3 days; 53.60 % AC: 14.92 cm; 20 weeks 1 day; 45.20 % FL: 3.21 cm; 20 weeks 0 days; 36.90 % EFW:334.20 g; 44.60 % FL/AC: 21.52 FL/BPD: 67.77 HC/AC: 1.20 GESTATIONAL AGE: Age by EDC: 20 weeks 1 day Age by current US: 20 weeks 2 days ELIE by current US: 2025-04-05 ELIE by EDC: 2025-04-06 US/US OB cervical length IMPRESSION: 1. Single live intrauterine with growth detailed above. 2. Small hyperechoic structure versus debris within stomach; nonspecific. Consider follow-up. Electronically authenticated by: MORE FARLEY Date: 11/18/2024 16:11
--- NOTE | 2024-11-18 09:19 | US_ITS ---
[address] [address] Patient Name: BRADY BARON MRN: [id number] date: 1995 Sex: F Assigned Patient Location: US Current Patient Location: US Accession/Order Number: [id number] Exam Date: 11/18/2024 09:23 Report Date: 11/18/2024 16:11 At the request of: CRUZ JOHNSON Procedure: US OB anatomy EXAMINATION: US OB anatomy, US OB cervical length HISTORY: SCREENING, , FOR ANATOMIC SURVEY Z36.89 COMPARISON: Ultrasound OB transvaginal 08/26/2024 TECHNIQUE: Transabdominal sonographic examination was performed for obstetrical and evaluation. FINDINGS: Number: 1 Heart Rate: 127.96 bpm Amniotic Fluid Volume: Subjectively normal Placental Location: POSTERIOR with lower margin 3.3 cm from os. Cervix Length: 6.02 cm , closed. ANATOMY: Normal Structures -cerebellum, choroid plexus, cisterna magna, lateral cerebral ventricles, orbits, midline falx, hard palate, four-chamber heart, RVOT, LVOT, stomach, kidneys, bladder, umbilical cord insertion into abdomen, three-vessel cord, cervical spine, thoracic spine, lumbar spine, sacral spine, right upper extremity, left upper extremity, right lower extremity, left lower extremity. SUBOPTIMALLY SEEN: None ABNORMALITIES: 5 mm hyperechoic debris versus structure within stomach. BIOMETRY: BPD: 4.74 cm; 20 weeks 2 days; 57.70 % HC: 17.95 cm; 20 weeks 3 days; 53.60 % AC: 14.92 cm; 20 weeks 1 day; 45.20 % FL: 3.21 cm; 20 weeks 0 days; 36.90 % EFW:334.20 g; 44.60 % FL/AC: 21.52 FL/BPD: 67.77 HC/AC: 1.20 GESTATIONAL AGE: Age by EDC: 20 weeks 1 day Age by current US: 20 weeks 2 days ELIE by current US: 2025-04-05 ELIE by EDC: 2025-04-06 US/US OB anatomy IMPRESSION: 1. Single live intrauterine with growth detailed above. 2. Small hyperechoic structure versus debris within stomach; nonspecific. Consider follow-up. Electronically authenticated by: MORE FARLEY Date: 11/18/2024 16:11
== END 2024-11-18 09:12 | disposition home or self-care (01) ==
LOC: US 09:11
PROVIDERS: PCP Family Medicine; Visit Provider Obstetrics & Gynecology
DX: Z36.89 Encounter for other specified antenatal screening (principal); Z3A.20 20 weeks gestation of pregnancy
CPT/HCPCS: 76805; 76817

== ENCOUNTER 2024-12-15 11:01 | Outpatient (OUT) | payer BC, SELFPAY ==
--- NOTE | 2024-12-15 11:05 | US_ITS ---
The [address] [address] Patient Name: BRADY BARON MRN: [id number] date: 1995 Sex: F Assigned Patient Location: US Current Patient Location: US Accession/Order Number: [id number] Exam Date: 12/15/2024 11:15 Report Date: 12/15/2024 11:59 At the request of: CRUZ JOHNSON Procedure: US OB incomplete anatomy EXAM: US OB incomplete anatomy HISTORY: Encounter Follow Up Ultrasound Anatomy COMPARISON: All TECHNIQUE: Transabdominal images FINDINGS: Asymmetric prominence of the right renal pelvis measuring 4.7 mm. Again demonstrated is 8 x 7.1 x 6.9 mm area of subtle hyperechogenicity within the gastric lumen , Nonspecific position: Cephalic presentation, longitudinal lie Placenta: Posterior Heart rate: 151 beats minute US/US OB incomplete anatomy IMPRESSION: 8 mm echogenic focus within the gastric lumen, stable and indeterminate Mild asymmetrically prominent right renal pelvis Electronically authenticated by: MELANIE CERVANTES Date: 12/15/2024 11:59
--- OUTSIDE RECORDS SUMMARY | 2024-12-15 11:20 | XMS_ITS | CCD ---
Author Organization [facility] Care Team Providers Care Deburrer Name Role Phone Price Girard Unavailable Unavailable Unavailable Essence Blevins Unavailable Unavailable MD Amanda Rosario Attending Provider [phone] MD Sarah Nevarez Referring Provider [phone] MD Mike Wagner Primary Care Provider MD Amanda Rosario Attending Provider MD Sarah Nevarez Referring Provider [phone] MD Mike Wagner Primary Care Provider [phone] KT ., DR ARROYO Admitting Unavailable KT [...] Unavailable NADERECayden, DR MIKE Bolaños Admitting Unavailable KT ., [...] Unavailable KT ., DR ARROYO Admitting Unavailable TK ., DR ARROYO Consulting Unavailable NADERER, DR MIKE Bolaños Primary Care Unavailable KT ., DR ARROYO Attending Unavailable KT ., DR ARROYO Admitting Unavailable MD Amanda Rosario Attending Provider [phone] MD Sarah Nevarez Referring Provider MD Mike Wagner Primary Care Provider Mike Wagner MD Primary Care Provider [phone] Aneesh NOE, Flores Unavailable Amanda Rosario Attending Unavailable Amanda Rosario Admitting Unavailable Sarah Nevarez Referring Unavailable Mike Wagner Primary Care Unavailable Abelardo STRINGER [employer] SOLDERING MACHINE, Melissa Unavailable DELVIS MERAZ Attending Unavailable MELISSA ZHOU Attending Unavailable DELVIS MERAZ Attending Unavailable MIKE WAGNER Attending Unavailable DELVIS MERAZ Attending Unavailable DELVIS MERAZ Attending Unavailable Allergies Allergy Classification Reported Allergen(s) Allergy Type Date of Onset Reaction(s) Facility (1 source) No Alert Propensity to adverse reactions to drug 1 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 Medications Current Medications Medication Drug Class(es) Dates Sig (Normalized) Sig (Original) ALPRAZolam 0.25 mg oral tablet (5 sources) Benzodiazepine Start: 06-18-2021 take 1 tablet by mouth once daily Alprazolam (Xanax) 0.25 mg Tablet Active 0.25 MG PO Daily June 18, 2021 12:00am cefdinir 300 mg oral capsule (2 sources) Cephalosporin Antibacterial Start: 10-11-2024 End: 10-21-2024 take 1 capsule by mouth in the morning cefdinir (Omnicef) 300 MG capsule Indications: Acute non-recurrent pansinusitis Take 1 capsule (300 mg) by mouth in the morning and 1 capsule (300 mg) before bedtime. Do all this for 10 days. 20 capsule 10/11/2024 10/21/2024 Active Magnesium (2 sources) Start: 08-19-2023 take 400 mg by mouth once daily Magnesium Active 400 MG PO Daily August 19, 2023 12:00am Magnesium Oxide (15 sources) magnesium oxide (Mag-Ox) 400 mg tablet 400 mg Daily Active Multiple Vitamin (multivitamin) tablet (3 sources) take 1 tablet by mouth once daily Multiple Vitamin (multivitamin) tablet Take 1 tablet by mouth Daily Active Iwt-Gctt-Hb-[place] 3-Fat Com #1 (Pre-Jeanette Multivitamins/Min erals) 27-1-300 mg Capsule (4 sources) Start: 01-21-2023 Xmw-Qzmd-Iu-[place] 3-Fat Com #1 (Pre-Jeanette Multivitamins/Mine rals) 27-1-300 mg Capsule Active CAP PO January 21, 2023 1:00am Start: 01-21-2023 Bqk-Dxxc-Iv-Om ega 3-Fat Com #1 (Pre-Jeanette Multivitamins/Minerals) 27-1-300 mg Capsule Active CAP PO January 21, 2023 12:00am MV-Min-Fe Fum-FA-DH A ( 1 PO) (15 sources) MV-Min- Fe Fum-FA-DHA ( 1 PO) Take by mouth Active Completed/Discontinued Medications Medication Drug Class(es) Dates Sig (Normalized) Sig (Original) ciprofloxacin 500 mg oral tablet (5 sources) Quinolone Antimicrobial Start: 07-23-2021 End: 10-03-2021 take 1 tablet by mouth twice daily Ciprofloxacin Hcl (Cipro) 500 mg Tablet Discontinued 500 MG PO Twice daily July 23, 2021 12:00am October 03, 2021 9:30am famotidine 20 mg oral tablet (5 sources) Histamine-2 Receptor Antagonist Start: 06-18-2021 End: 06-24-2021 take 20 mg by mouth once daily at bedtime Famotidine Discontinued 20 MG PO Daily at bedtime June 18, 2021 12:00am June 24, 2021 2:04pm Multivitamin (Multiple Vitamin) Tablet (5 sources) Start: 06-18-2021 End: 01-21-2023 take 1 [...] omeprazole 40 mg delayed release oral capsule (5 sources) Proton Pump Inhibitor Start: 06-18-2021 End: 06-24-2021 take 40 mg by mouth once daily Omeprazole Discontinued 40 MG PO Daily June 18, 2021 12:00am June 24, 2021 2:04pm Progesterone 200 MG suppository (6 sources) Start: 08-26-2024 End: 09-26-2024 Progesterone 200 MG suppository Indications: History of miscarriage Insert 200 mg into the vagina at bedtime Insert suppository vaginally every night at bedtime until 12 weeks gestation 30 suppository 08/26/2024 09/26/2024 Discontinued Start: 08-26-2024 End: 09-25-2024 Progesterone 200 MG [...] weeks gestation 30 suppository 08/05/2024 09/04/2024 Active sulfamethoxazole 800 mg / trimethoprim 160 mg oral tablet (5 sources) Dihydrofolate Reductase Inhibitor Antibacterial, Sulfonamide Antimicrobial Start: 06-13-2021 take 1 tablet by mouth twice daily Sulfamethoxazole-Trimethoprim 800-160 MG Oral Tablet Take 1 tablet twice daily Quantity: 14 Refills: 0 Ordered: 13-Jun-2021 Oscar Worthington MPH Start : 13-Jun-2021 Active Problems Active Problems Problem Classification Problem Date Documented Date Episodic/Chronic Administrative/social admission (4 sources) Problems related to multiparity; Translations: [PROBLEMS RELATED TO MULTIPARITY] Onset: 01-30-2023 Episodic Deficiency and other anemia (5 sources) Iron deficiency anemia; Translations: [Iron deficiency anemia, unspecified] 04-03-2022 Episodic Deficiency and other anemia (3 sources) Iron deficiency anemia, unspecified; Translations: [Iron deficiency anemia, unspecified] 07-08-2022 Episodic Genitourinary symptoms and ill-defined conditions (2 sources) Blood in urine; Translations: [Hematuria, unspecified] 10-24-2024 Episodic Immunizations and screening for infectious disease (4 sources) Encounter for screening for human papillomavirus (HPV); Translations: [Encounter for screening for infections with a predominantly sexual mode of transmission] Onset: 06-17-2022 10-24-2024 Episodic Maintenance chemotherapy; radiotherapy (8 sources) Patient encounter status; Translations: [Encounter for antineoplastic immunotherapy] 07-19-2021 Chronic Melanomas of skin (20 sources) Malignant melanoma of lower leg; Translations: [Malignant melanoma of skin of lower limb, including hip] Onset: 04-14-2023 07-19-2021 Chronic Other female genital disorders (2 sources) Vaginal discharge; Translations: [Other specified noninflammatory disorders of vagina] 10-24-2024 Episodic Other nervous system disorders (5 sources) Chiari malformation type I; Translations: [Compression of brain] 07-19-2021 Chronic Other nervous system disorders (3 sources) Compression of brain; 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 Other and delivery including normal (20 sources) Encounter for supervision of normal , unspecified, first trimester; Translations: [Second trimester ] Onset: 03-25-2023 05-23-2023 Episodic Other screening for suspected conditions (not mental disorders or infectious disease) (6 sources) Encounter for screening for malignant neoplasm of cervix; Translations: [Patient encounter status] Onset: 01-13-2023 Episodic Other upper respiratory infections (11 sources) Acute pansinusitis; Translations: [Acute pansinusitis, unspecified] Onset: 10-11-2024 10-11-2024 Episodic Residual codes; unclassified (1 source) No current problems or disability; Translations: [Other specified conditions influencing health status] Onset: 06-18-2021 Episodic Residual codes; unclassified (5 sources) Edema of right lower limb; Translations: [Localized edema] 01-15-2022 Episodic Residual codes; unclassified (3 sources) Localized edema; Translations: [Edema] 07-08-2022 Episodic Residual codes; unclassified (1 source) 9 weeks gestation of ; Translations: [9 WEEKS GESTATION OF ] Onset: 03-25-2023 Episodic Residual codes; unclassified (1 source) H/O: miscarriage; Translations: [Personal history of other complications of , childbirth and the puerperium] 08-26-2024 Episodic Residual codes; unclassified (2 sources) Gestation period, 12 weeks; Translations: [12 weeks gestation of ] 09-26-2024 Episodic Residual codes; unclassified (2 sources) Gestation period, 16 weeks; Translations: [16 weeks gestation of ] 10-24-2024 Episodic Residual codes; unclassified (2 sources) Gestation period, 21 weeks; Translations: [21 weeks gestation of ] 11-28-2024 Episodic Skin and subcutaneous tissue infections (4 sources) Cellulitis; Translations: [Cellulitis and abscess of unspecified sites] Episodic Past or Other Problems Problem Classification Problem Date Documented Date Episodic/Chronic Acute and chronic tonsillitis (18 sources) Acute tonsillitis; Translations: [Acute tonsillitis due to other specified organisms] Onset: 02-22-2024 Resolved: 10-11-2024 02-22-2024 Episodic Deficiency and other anemia (18 sources) Anemia; Translations: [Anemia, unspecified] Onset: 04-14-2023 04-14-2023 Episodic Esophageal disorders (18 sources) Laryngopharyngeal reflux; Translations: [Gastro-esophageal reflux disease without esophagitis] Onset: 02-22-2024 Resolved: 10-11-2024 02-22-2024 Chronic Menstrual disorders (20 sources) Irregular menstruation, unspecified; Translations: [Amenorrhea, unspecified] Onset: 02-27-2023 Resolved: 10-11-2024 Chronic Other female genital disorders (4 sources) Other specified noninflammatory disorders of vagina; Translations: [OTH SPEC NONINFLAMMATORY D/O VAGINA] Onset: 06-16-2022 Episodic Other female genital disorders (18 sources) Polyp of cervix; Translations: [Polyp of cervix uteri] Onset: 04-14-2023 04-14-2023 Episodic Other female genital disorders (18 sources) Disorder of female genital system; Translations: [Unspecified condition associated with female genital organs and menstrual cycle] Onset: 04-14-2023 04-14-2023 Episodic Other female genital disorders (18 sources) Noninflammatory disorder of the vagina; Translations: [Other specified noninflammatory disorders of vagina] Onset: 04-14-2023 04-14-2023 Episodic Other lower respiratory disease (18 sources) Solitary nodule of lung; Translations: [Solitary pulmonary nodule] Onset: 04-14-2023 04-14-2023 Episodic Otitis media and related conditions (18 sources) Acute suppurative otitis media without spontaneous rupture of ear drum; Translations: [Acute suppurative otitis media without spontaneous rupture of ear drum, right ear] Onset: 02-22-2024 Resolved: 10-11-2024 02-22-2024 Episodic Results Test Name Value Interpretation Reference Range Facility Urinalysis macro (dipstick) panel (U)on 11-28-2024 Bilirubin, UA Negative Negative - 4(70) +++ mg/dL [facility] Blood, UA Positive Negative - 50 Naveed/mcL [facility] Comment on above: trace Clarity, UA Clear [facility] Color, UA Yellow [facility] Glucose, UA Negative Negative - 2000(110) ++++ mg/dL [facility] Interpretation and review of laboratory results Abnormal [facility] Ketones, UA Negative Negative - 160(16) ++++ mg/dL [facility] Leukocytes, UA Negative Negative - 500+++ José Luis/mcL [facility] Nitrite, UA Negative Negative - Positive [facility] pH, UA 6.5 5 - 9 [facility] Protein, UA Negative Negative - 2000(20) ++++ mg/dL [facility] Grav, UA 1.025 1 - 1.03 [facility] Urobilinogen, UA 0.2 0.2 - 12 mg/dL [facility] No Panel Informationon 10-26 STAPHYLOCOCCUS EPIDERMIDIS, HAEMOLYTICUS, LUGDUNENSIS, SAPROPHYTICUS (URINA 0 [facility] STAPHYLOCOCCUS EPIDERMIDIS, HAEMOLYTICUS, LUGDUNENSIS, SAPROPHYTICUS (URINA Not detected [facility] URINARY TRACT INFECTION (HTR X)on 10-26-2024 ACINETOBACTER BAUMANII 0 NO [facility] ACINETOBACTER BAUMANII Not detected [facility] STEVEN ALBICANS, PARAPSILOSIS, TROPICALIS 0 [facility] STEVEN ALBICANS, PARAPSILOSIS, TROPICALIS Not detected [facility] STEVEN GLABRATA 0 [facility] STEVEN GLABRATA Not detected [facility] STEVEN KRUSEI 0 [facility] STEVEN KRUSEI Not detected [facility] CITROBACTER FREUNDII 0 [facility] CITROBACTER FREUNDII Not detected NO [facility] ENTEROBACTER AEROGENES, CLOACAE 0 [facility] ENTEROBACTER AEROGENES, CLOACAE Not detected [facility] ENTEROCOCCUS FAECALIS, FAECIUM 0 [facility] ENTEROCOCCUS FAECALIS, FAECIUM Not detected [facility] ESCHERICHIA COLI 0 [facility] ESCHERICHIA COLI Not detected [facility] KLEBSIELLA PNEUMONIAE, OXYTOCA 0 [facility] KLEBSIELLA PNEUMONIAE, OXYTOCA Not detected [facility] MORGANELLA MORGANII 0 [facility] MORGANELLA MORGANII Not detected [facility] PROTEUS MIRABILIS, VULGARIS 0 [facility] PROTEUS MIRABILIS, VULGARIS Not detected [facility] PSEUDOMONAS AERUGINOSA 0 NO [facility] PSEUDOMONAS AERUGINOSA Not detected [facility] SERRATIA MARCESCENS 0 [facility] SERRATIA MARCESCENS Not detected [facility] STAPHYLOCOCCUS AUREUS 0 [facility] STAPHYLOCOCCUS AUREUS Not detected [facility] STREPTOCOCCUS AGALACTIAE (GROUP B STREP) 0 [facility] STREPTOCOCCUS AGALACTIAE (GROUP B STREP) Not detected [facility] STREPTOCOCCUS PYOGENES (GROUP A STREP) 0 [facility] STREPTOCOCCUS PYOGENES (GROUP A STREP) Not detected [facility] Urinalysis macro (dipstick) panel (U)on 10-24-2024 Bilirubin, UA Negative Negative - 4(70) +++ mg/dL [facility] Blood, UA Positive Negative - 50 Naveed/mcL [facility] Clarity, UA Clear [facility] Color, UA Yellow [facility] Glucose, UA Negative Negative - 1999(110) ++++ mg/dL [facility] Interpretation and review of laboratory results Normal [facility] Ketones, UA Negative Negative - 160(16) ++++ mg/dL [facility] Leukocytes, UA Negative Negative - 500+++ José Luis/mcL [facility] Nitrite, UA Negative Negative - Positive [facility] pH, UA 5.5 5 - 9 [facility] Protein, UA Negative Negative - 1999(20) ++++ mg/dL [facility] Spec Grav, UA 1.02 1 - 1.03 [facility] Urobilinogen, UA 1.0 0.2 - 12 mg/dL Pending sale to [facility] Urinalysis macro (dipstick) panel (U)on 09-26-2024 Bilirubin, UA Negative Negative - 4(70) +++ mg/dL [facility] Blood, UA Negative Negative - 50 Naveed/mcL [facility] Clarity, UA Clear [facility] Color, UA Yellow [facility] Glucose, UA Negative Negative - 1999(110) ++++ mg/dL [facility] Interpretation and review of laboratory results Normal [facility] Ketones, UA Negative Negative - 160(16) ++++ mg/dL [facility] Leukocytes, UA Negative Negative - 500+++ José Luis/mcL [facility] Nitrite, UA Negative Negative - Positive [facility] pH, UA 5.5 5 - 9 [facility] Protein, UA Negative Negative - 1999(20) ++++ mg/dL [facility] Spec Grav, UA 1.02 1 - 1.03 [facility] Urobilinogen, UA 0.2 0.2 - 12 mg/dL Pending sale to [facility] MLR HEMOGLOBIN A1Con 024 Glucose [Mass/Vol] 91 mg/dL [facility] HbA1c (Bld) [Mass fraction] 4.8 % 4.5 - 6.2 % [facility] Comment on above: ADA RECOMMENDED LIMI T 4.0 - 6.0 ADA THERAPEUTIC TARGET < 7.0 ACTION SUGGESTED > 7.0 [facility] HCG ( test) Ql (U)o n 08-26-2024 Interpretation and review of laboratory results Abnormal [facility] Preg Test, Ur Positive Pending sale to [facility] Urinalysis macro (dipstick) panel (U)on 08-26-2024 Bilirubin, UA Negative Negative - 4(70) +++ mg/dL [facility] Blood, UA Negative Negative - 50 Naveed/mcL [facility] Clarity, UA Clear [facility] Color, UA Yellow [facility] Glucose, UA Negative Negative - 1999(110) ++++ mg/dL [facility] Interpretation and review of laboratory results Normal [facility] Ketones, UA Negative Negative - 160(16) ++++ mg/dL [facility] Leukocytes, UA Negative Negative - 500+++ José Luis/mcL [facility] Nitrite, UA Negative Negative - Positive [facility] pH, UA 7.0 5 - 9 [facility] Protein, UA Negative Negative - 1999(20) ++++ mg/dL [facility] Spec Grav, UA 1.025 1 - 1.03 [facility] Urobilinogen, UA 0.2 0.2 - 12 mg/dL [facility] PREG QUANT HCGon 024 HCG QUANTITATIVE 1850 mIU/mL [facility] Comment on above: 5-50 0.2-1 WEEK 50-500 1-2 WEEKS 100-5,000 2-3 WEEKS 500-10,000 3-4 WEEKS 1,000-50,000 4-5 WEEKS 10,000-100,000 5-6 WEEKS 15,000-200,000 6-8 WEEKS 10,000-100,000 [facility] 024 HCG QUANTITATIVE 824 mIU/mL [facility] Comment on above: 5-50 0.2-1 WEEK 50-500 1-2 WEEKS 100-5,000 2-3 WEEKS 500-10,000 3-4 WEEKS 1,000-50,000 4-5 WEEKS 10,000-100,000 5-6 WEEKS 15,000-200,000 6-8 WEEKS 10,000-100,000 2[facility] Alanine aminotransferase [En zymatic activity/volume] in Serum or PlasmaOrdered By: Amanda Rosario on 05-20-2023 ALT [Catalytic activity/Vol] 9 U/L 7-52 [facility] Albumin [Mass/volume] in Ser um or Plasma by Bromocresol green (BCG) dye binding methoOrdered By: Amanda Rosario on 05-20-2023 Albumin BCG dye [Mass/Vol] 3.8 g/dL 3.5-5.7 [facility] Alkaline phosphatase [Enzyma tic activity/volume] in Serum or PlasmaOrdered By: Amanda Rosario on 05-20-2023 ALP [Catalytic activity/Vol] 52 U/L 34-104 [facility] Aspartate aminotransferase [ Enzymatic activity/volume] in Serum or PlasmaOrdered By: Amanda Rosario on 05-20-2023 AST [Catalytic activity/Vol] 14 U/L 13-39 [facility] Basophils Auto (Bld) [#/Vol] Ordered By: Amanda Rosario on 05-20-2023 Basophils (Bld) [#/Vol] 0.0 10*3/uL 0.0-0.2 [facility] Basophils/100 WBC Auto (Bld) Ordered By: Amanda Rosario on 05-20-2023 Basophils/100 WBC (Bld) 0.4 % . [facility] Bilirubin.total [Mass/volume ] in Serum or PlasmaOrdered By: Amanda Rosario on 05-20-2023 Bilirubin [Mass/Vol] 0.5 mg/dL 0.3-1.0 [facility] Calcium [Mass/volume] in Ser um or PlasmaOrdered By: Amanda Rosario on 05-20-2023 Calcium [Mass/Vol] 8.5 mg/dL 8.6-10.3 [facility] Carbon dioxide, total [Moles /volume] in Serum or PlasmaOrdered By: Amanda Rosario on 05-20-2023 CO2 [Moles/Vol] 26.1 mmol/L 21.0-31.0 [facility] Chloride [Moles/volume] in [place] or PlasmaOrdered By: Amanda Rosario on 05-20-2023 Chloride [Moles/Vol] 104 mmol/L 98-107 [facility] Creatinine [Mass/volume] in Serum or PlasmaOrdered By: Amanda Rosario on 05-20-2023 Creatinine [Mass/Vol] 0.56 mg/dL 0.60-1.20 [facility] Eosinophils Auto (Bld) [#/Vo l]Ordered By: Amanda Rosario on 05-20-2023 Eosinophils (Bld) [#/Vol] 0.1 10*3/uL 0.0-0.45 [facility] Eosinophils/100 WBC Auto (Bl d)Ordered By: Amanda Rosario on 05-20-2023 Eosinophils/100 WBC (Bld) 0.6 % . [facility] Erythrocyte distribution wid th Auto (RBC) [Ratio]Ordered By: Amanda Rosario on 05-20-2023 Erythrocyte distribution width (RBC) [Ratio] 13.1 % 11.9-15.3 [facility] Globulin Calc (S) [Mass/Vol] Ordered By: Amanda Rosario on 05-20-2023 Globulin (S) [Mass/Vol] 2.3 g/dL [facility] Glucose [Mass/volume] in Ser um or PlasmaOrdered By: Amanda Rosario on 05-20-2023 Glucose [Mass/Vol] 72 mg/dL 70-100 [facility] Comment on above: ADA recommended refe rence rangeRandom Glucose Reference Range is dependent on time and content of last meal. Glucose of more than 200 mg/dL in a nonstressed, ambulatory subject supports the diagnosis of Diabetes Mellitus. Hematocrit Auto (Bld) [Volum e fraction]Ordered By: Amanda Rosario on 05-20-2023 Hematocrit (Bld) [Volume fraction] 34.7 % 34.0-46.4 [facility] Hemoglobin [Mass/volume] in BloodOrdered By: Amanda Rosario on 05-20-2023 Hemoglobin (Bld) [Mass/Vol] 12.0 g/dL 11.8-15.4 [facility] Leukocytes [#/volume] correc yanira for nucleated erythrocytes in Blood by Automated counOrdered By: Amanda Rosario on 05-20-2023 WBC corrected for nucl RBC Auto (Bld) [#/Vol] 10.3 10*3/uL 3.8-11.6 [facility] Lymphocytes Auto (Bld) [#/Vo l]Ordered By: Amanda Rosario on 05-20-2023 Lymphocytes (Bld) [#/Vol] 1.3 10*3/uL 1.00-4.8 [facility] Lymphocytes/100 WBC Auto (Bl d)Ordered By: Amanda Rosario on 05-20-2023 Lymphocytes/100 WBC (Bld) 12.8 % . [facility] MCH Auto (RBC) [Entitic mass ]Ordered By: Amanda Rosario on 05-20-2023 MCH (RBC) [Entitic mass] 31.5 pg 24.7-34.3 [facility] MCHC Auto (RBC) [Mass/Vol]Or dered By: Amanda Rosario on 05-20-2023 MCHC (RBC) [Mass/Vol] 34.6 g/dL 32.0-35.0 [facility] MCV Auto (RBC) [Entitic vol] Ordered By: Amanda Rosario on 05-20-2023 MCV (RBC) [Entitic vol] 91.1 fL 80-100 [facility] Monocytes Auto (Bld) [#/Vol] Ordered By: Amanda Rosario on 05-20-2023 Monocytes (Bld) [#/Vol] 0.7 10*3/uL 0.0-0.8 [facility] Monocytes/100 WBC Auto (Bld) Ordered By: Amanda Rosario on 05-20-2023 Monocytes/100 WBC (Bld) 6.4 % . [facility] Neutrophils Auto (Bld) [#/Vo l]Ordered By: Amanda Rosario on 05-20-2023 Neutrophils (Bld) [#/Vol] 8.2 10*3/uL 1.8-7.7 [facility] Neutrophils/100 WBC Auto (Bl d)Ordered By: Amanda Rosario on 05-20-2023 Neutrophils/100 WBC (Bld) 79.8 % . [facility] No Panel InformationOrdered By: Amanda Rosario on 05-20-2023 Adrenocorticotropic Hormone 10.8 pg/mL 7.2-63.3 [facility] Comment on above: ACTH reference inter cruz for samples collected between 7 and10 AM.Performed at: [facility] [id number] Director: Sai Smalls PhD, Phone: [phone] Estimated GFR (CKD-EPI) > 60.0 mL/Min [facility] Creatinine Clearance (Chem 154.92 [facility] Nucleated erythrocytes [Pres ence] in Blood by Automated countOrdered By: Amanda Rosario on 05-20-2023 Nucleated RBC Auto Ql (Bld) 0.2 /100{WBC} 0-0.5 [facility] Platelet mean volume Auto (B ld) [Entitic vol]Ordered By: Amanda Rosario on 05-20-2023 Platelet mean volume (Bld) [Entitic vol] 7.4 fL 6.3-10.7 [facility] Platelets Auto (Bld) [#/Vol] Ordered By: Amanda Rosario on 05-20-2023 Platelets (Bld) [#/Vol] 256 10*3/uL 150-450 [facility] Potassium [Moles/volume] in Serum or PlasmaOrdered By: Amanda Rosario on 05-20-2023 Potassium [Moles/Vol] 4.2 mmol/L 3.5-5.1 [facility] Protein [Mass/volume] in Ser um or PlasmaOrdered By: Amanda Rosraio on 05-20-2023 Protein [Mass/Vol] 6.1 g/dL 6.4-8.9 [facility] RBC Auto (Bld) [#/Vol]Ordere d By: Amanda oRsario on 05-20-2023 RBC (Bld) [#/Vol] 3.81 10*6/uL 3.60-5.00 [facility] Serum or plasma albumin/glob ulin mass ratioOrdered By: Amanda Rosario on 05-20-2023 Albumin/Globulin [Mass ratio] 1.7 {ratio} [facility] Serum or plasma anion gap de terminationOrdered By: Amanda Rosario on 05-20-2023 Anion gap [Moles/Vol] 10.1 mmol/L 6.0-15.0 [facility] Sodium [Moles/volume] in Ser um or PlasmaOrdered By: Amanda Rosario on 05-20-2023 Sodium [Moles/Vol] 136 mmol/L 136-145 [facility] Thyrotropin [Units/volume] i n Serum or PlasmaOrdered By: Amanda Rosario on 05-20-2023 TSH Qn 1.31 m[IU]/L 0.45-5.33 [facility] Thyroxine (T4) free [Mass/vo lume] in Serum or PlasmaOrdered By: Amanda Abraham on 05-20-2023 Free T4 [Mass/Vol] 0.86 ng/dL 0.61-1.12 [facility] Triiodothyronine (T3) Free [ Mass/volume] in Serum or PlasmaOrdered By: Amanda Abraham on 05-20-2023 Free T3 [Mass/Vol] 2.91 pg/mL 2.50-3.90 [facility] Urea nitrogen [Mass/volume] in Serum or PlasmaOrdered By: Amanda Rosario on 05-20-2023 Urea nitrogen [Mass/Vol] 10 mg/dL 7 [facility] WBC Auto (Bld) [#/Vol]Ordere d By: Amanda Rosario on 05-20-2023 WBC (Bld) [#/Vol] 10.3 10*3/uL 3.8-11.6 [facility] HEP B SURFACE ANTIGEN SCREEN on 04-08-2023 HBsAg Screen Negative Normal Negative [facility] Comment on above: Performed By: #### T SH #### [facility] [address] [address] [address] Beth Pineda HEPATITIS C VIRUS AB W/ REFL EX QUANTon 04-08-2023 HCV AB Non-Reactive Normal Non Reactive [facility] Comment on above: Performed By: #### H CVPCRR #### [facility] [address] [address] [address] Beth Pineda HIV 1 AND 2 WITH REFLEXon HIV Screen 4th Generation wRfx Non-Reactive Normal Non Reactive [facility] Comment on above: Result Comment: HIV Negative HIV-1/HIV-2 antibodies and HIV-1 p24 antigen were NOT detected. There is no laboratory evidence of HIV infection. Performed By: #### H IV12 #### [facility] [address] [place] [address] Dr. Beth Pineda RPR QUANTon 04-08-2023 Rapid Plasma Reagin, Quant Non-Reactive Normal NonRea<1:1 [facility] Comment on above: Result Comment: Plea se Note: This test does not meet current guidelines for screening and diagnosis of syphilis. This test is intended for following treatment response in patients being treated for syphilis infection. To screen for syphilis infection, a reflex cascade that includes both RPR and a treponema-specific assay should be utilized, such as Treponema pallidum (Syphilis) Screening Hawi (654138) or Rapid Plasma Reagin (RPR) Test With Reflex to Quantitative RPR and Confirmatory Treponema pallidum Antibodies (341811). Performed By: #### R PRQ #### [facility] [address] [place] [address] Dr. Beth Pineda RUBELLA AB IGGon 04-08-2023 Rubella Antibodies, IgG 1.35 index Normal Immu ne >0.99 [facility] Comment on above: Result Comment: Non- immune <0.90 Equivocal 0.90 - 0.99 Immune >0.99 Performed By: #### R UBIGG #### [facility] [address] [place] [address] Dr. Beth Pineda BOX TEST SENT OUTon 04-07-20 23 SENT TO REF LAB 04/07/23 Normal [facility] Comment on above: Performed By: #### B OX #### [facility] [address] [place] [address] Dr. Beth iPneda CBC AUTO DIFFon 04-07-2023 BASO # 0.1 103/ul Normal 0.0-0.1 [facility] Comment on above: Performed By: #### C BC #### [facility] [address] [place] [address] Dr. Beth Pineda Basophils/100 WBC (Bld) 0.7 % Normal 0.2-2.0 [facility] Comment on above: Performed By: #### C BC #### [facility] [address] [place] [address] Dr. Beth Pineda EO # 0.1 103/ul Normal 0.0-0.7 [facility] Comment on above: Performed By: #### C BC #### [facility] [address] [place] [address] Dr. Beth Pineda Eosinophils/100 WBC (Bld) 1.1 % Normal 0.9-7.0 [facility] Comment on above: Performed By: #### C BC #### [facility] [address] [place] [address] Dr. Beth Pineda Erythrocyte distribution width (RBC) [Ratio] 12.5 % Normal 11.0-15.0 [facility] Comment on above: Performed By: #### C BC #### [facility] [address] [place] [address] Dr. Beth Pineda Hematocrit (Bld) [Volume fraction] 37.8 % Normal 36.0-48.0 [facility] Comment on above: Performed By: #### C BC #### [facility] [address] [place] [address] Dr. Beth Pineda Hemoglobin (Bld) [Mass/Vol] 13.1 g/dL Normal 12.0-16.0 [facility] Comment on above: Performed By: #### C BC #### [facility] [address] [place] [address] Dr. Beth Pineda IG # 0.02 10e3/ul Normal 0.00-0.03 [facility] Comment on above: Performed By: #### C BC #### [facility] [address] [place] [address] Dr. Beth Pineda IG % 0.3 % Normal 0.0-0.5 [facility] Comment on above: Performed By: #### C BC #### [facility] [address] [place] [address] Dr. Beth Pineda LYMPH # 1.5 103/ul Normal 1.2-3.8 [facility] Comment on above: Performed By: #### C BC #### [facility] [address] [place] [address] Dr. Beth Pineda Lymphocytes/100 WBC (Bld) 19.9 % Critically low 20.5-60.0 [facility] Comment on above: Performed By: #### C BC #### [facility] [address] [place] [address] Dr. Beth Pineda MANUAL DIFF REQ NO Normal [facility] Comment on above: Performed By: #### C BC #### [facility] [address] [address] [address] Beth Pineda MCH (RBC) [Entitic mass] 31.3 pg Normal 26.7-34.0 [facility] Comment on above: Performed By: #### C BC #### [facility] [address] [place] [address] Dr. Beth Pineda MCHC (RBC) [Mass/Vol] 34.7 g/dL Normal 29.9-35.2 [facility] Comment on above: Performed By: #### C BC #### [facility] [address] [place] [address] Dr. Beth Pineda MCV (RBC) [Entitic vol] 90.2 fL Normal 81.0-99.0 [facility] Comment on above: Performed By: #### C BC #### [facility] [address] [place] [address] Dr. Beth Pineda MONO # 0.5 103/ul Normal 0.3-0.8 [facility] Comment on above: Performed By: #### C BC #### [facility] [address] [place] [address] Dr. Beth Pineda Monocytes/100 WBC (Bld) 6.1 % Normal 1.7-12.0 [facility] Comment on above: Performed By: #### C BC #### [facility] [address] [place] [address] Dr. Beth Pineda NEUT # 5.4 103/ul Normal 1.4-6.5 [facility] Comment on above: Performed By: #### C BC #### [facility] [address] [place] [address] Dr. Beth Pineda Neutrophils/100 WBC (Bld) 71.9 % Normal 43.0-75.0 [facility] Comment on above: Performed By: #### C BC #### [facility] [address] [place] [address] Dr. Beth Pineda Platelet mean volume (Bld) [Entitic vol] 8.9 fL Critically low 9.5-13.5 [facility] Comment on above: Performed By: #### C BC #### [facility] [address] [address] [address] Beth Pineda PLT 272 103/ul Normal 150-450 [facility] Comment on above: Performed By: #### C BC #### [facility] [address] [address] [address] Beth Pineda RBC 4.19 106/ul Critically low 4.20-5.40 [facility] Comment on above: Performed By: #### C BC #### [facility] [address] [address] [address] Beth Pineda WBC 7.5 103/ul Normal 4.0-11.0 [facility] Comment on above: Performed By: #### C BC #### [facility] [address] [place] [address] Dr. Beth Pineda CULTURE URINEon 04-07-2023 CULTURE URINE Culture Observations : NO GROWTH. Normal [facility] Comment on above: Performed By: #### T SH #### [facility] [address] [place] [address] Dr. Beth Pineda GLYCOHEMOGLOBIN A1Con 2022 ADA RECOMMENDATION SEE BELOW Normal [facility] Comment on above: Result Comment: ADA RECOMMENDED LIMIT 4.0 - 6.0 ADA THERAPEUTIC TARGET < 7.0 ACTION SUGGESTED > 7.0 Performed By: #### A 1C #### [facility] [address] [place] [address] Dr. Beth Pineda Glucose [Mass/Vol] 82 mg/dL Normal [facility] Comment on above: Performed By: #### A 1C #### [facility] [address] [place] [address] Dr. Beth Pineda HbA1c (Bld) [Mass fraction] 4.5 % Normal 4.5-6.2 [facility] Comment on above: Performed By: #### A 1C #### [facility] [address] [place] [address] Dr. Beth Pineda TSHon 04-07-2023 TSH 2.191 uIU/mL Normal 0.358-3.[address] [facility] Comment on above: Performed By: #### T SH #### [facility] [address] [address] [address] Beth Pineda TYPE AND SCREENon 04-07-2023 TYPE AND SCREEN Negative Normal [facility] Comment on above: Performed By: #### T #### [facility] [address] [id number] Beth Pineda US PREG TVon 03-13-2023 [...] MORE FARLEY Date: 2023-03-13 09:37 Normal [facility] PREG QUANT HCGon 02-27-2023 HCG QUANT 73923 mIU/mL Normal [facility] Comment on above: Performed By: #### A 1C #### [facility] [address] [place], [place] [id number] Dr. Beth Pineda HCG RANGE SEE BELOW Normal [facility] Comment on above: Result Comment: 5-50 0.2-1 WEEK 50-500 1-2 WEEKS 100-5,000 2-3 WEEKS 500-10,000 3-4 WEEKS 1,000-50,000 4-5 WEEKS 10,000-100,000 5-6 WEEKS 15,000-200,000 6-8 WEEKS 10,000-100,000 2-3 MONTHS Performed By: #### A 1C #### [facility] [address] [id number] [address] Beth Pineda PREG QUANT HCGon 02-11-2023 HCG QUANT 57 mIU/mL Normal [facility] Comment on above: Performed By: #### A 1C #### [facility] [address] [address] [address] Beth Pineda HCG RANGE SEE BELOW Normal [facility] Comment on above: Result Comment: 5-50 0.2-1 WEEK 50-500 1-2 WEEKS 100-5,000 2-3 WEEKS 500-10,000 3-4 WEEKS 1,000-50,000 4-5 WEEKS 10,000-100,000 5-6 WEEKS 15,000-200,000 6-8 WEEKS 10,000-100,000 2-3 MONTHS Performed By: #### A 1C #### [facility] [address] [place] [address] Dr. Beth Pineda PREG QUANT HCGon 02-09-2023 HCG QUANT 14 mIU/mL [facility] Comment on above: Performed By: #### P REGQNT #### [facility] [address] [place] [address] Dr. Beth Pineda HCG RANGE SEE BELOW Normal [facility] Comment on above: Result Comment: 5-50 0.2-1 WEEK 50-500 1-2 WEEKS 100-5,000 2-3 WEEKS 500-10,000 3-4 WEEKS 1,000-50,000 4-5 WEEKS 10,000-100,000 5-6 WEEKS 15,000-200,000 6-8 WEEKS 10,000-100,000 2-3 MONTHS Performed By: #### P REGQNT #### [facility] [address] [place] [address] Dr. Beth Pineda ANTI-MULLERIAN HORMONEon Anti-Mullerian Hormone (AMH) 12.5 ng/mL Normal [facility] Comment on above: Result Comment: For assays employing antibodies, the possibility exists for interference by heterophile antibodies in the samples.1 1.Tanja Nava. Interferences in Immunoassays - still a threat. Clin. Chem. 2000; 46: 7734-1839. This test was developed and its performance characteristics determined by [employer] It has not been cleared or approved by the Food and Drug Administration. Reference Range: Females 20 - 25y: 1.23 - 11.51 Median 4.70 AMH concentrations of >= 1.06 ng/mL is correlated with a better response to ovarian stimulation, produced more retrievable oocytes and higher odds of live according to Erikaer et al. Fertility and Sterility. 2010: 94:9278-4812. The current AMH test method correlates with [...] tumor. Performed By: #### T SH #### [facility] [address] [place] [address] Dr. Beth Pineda PAP ACOG PANEL 2: 21 to 29on 01-20-2023 . . Normal [facility] Comment on above: Performed By: #### T SH #### [facility] [address] [address] [address] Beth Pineda Age Gdln ACOG Testing - Normal [facility] Comment on above: Performed By: #### T SH #### [facility] [address] [place] [address] Dr. Beth Pineda DIAGNOSIS: Comment [facility] Comment on above: Result Comment: NEGA TIVE FOR INTRAEPITHELIAL LESION OR MALIGNANCY. Performed By: #### T SH #### [facility] [address] [place] [address] Dr. Beth Pineda Methodology: Comment [facility] Comment on above: Result Comment: This liquid based ThinPrep(R) pap test was screened with the use of an image guided system. Performed By: #### T SH #### [facility] [address] [place] [address] Dr. Beth Pineda Note: Comment [facility] Comment on above: Result Comment: The Pap smear is a screening test designed to aid in the detection of premalignant and malignant conditions of the uterine cervix. It is not a diagnostic procedure and should not be used as the sole means of detecting cervical cancer. Both false-positive and false-negative reports do occur. . Performed By: #### T SH #### [facility] [address] [address] [address] Beth Pineda Performed by: Comment Normal [facility] Comment on above: Result Comment: Pato Gonzalez, Crude Unit Operator (ASCP) Performed By: #### T SH #### [facility] [address] [address] [address] Beth Pineda Reflex Criteria: Comment Normal [facility] Comment on above: Result Comment: The HPV DNA reflex criteria were not met with this specimen result therefore, no HPV testing was performed. . Performed By: #### T SH #### [facility] [address] [address] [address] Beth Pineda Specimen adequacy: Comment Normal [facility] Comment on above: Result Comment: Sati sfactory for evaluation. Endocervical and/or squamous metaplastic cells (endocervical component) are present. Performed By: #### T SH #### [facility] [address] [address] [address] Beth Pineda Albumin [Mass/volume] in Ser um or PlasmaOrdered By: Amanda Rosario on 01-09-2023 Albumin [Mass/Vol] 4.3 g/dL 3.2-5.5 [facility] Alkaline phosphatase [Enzyma tic activity/volume] in Serum or PlasmaOrdered By: Amanda Rosario on 01-09-2023 ALP [Catalytic activity/Vol] 54 U/L 32-92 [facility] Aspartate aminotransferase [ Enzymatic activity/volume] in Serum or PlasmaOrdered By: Amanda Rosario on 01-09-2023 AST [Catalytic activity/Vol] 21 U/L 10-42 [facility] Basophils Auto (Bld) [#/Vol] Ordered By: Amanda Rosario on 01-09-2023 Basophils (Bld) [#/Vol] 0.0 10*3/uL 0.0-0.2 [facility] Basophils/100 WBC Auto (Bld) Ordered By: Amanda Rosario on 01-09-2023 Basophils/100 WBC (Bld) 0.7 % . [facility] Bilirubin.total [Mass/volume ] in Serum or PlasmaOrdered By: Amanda Rosario on 01-09-2023 Bilirubin [Mass/Vol] 0.7 mg/dL 0.3-1.[address] [facility] [address] biopsyOrdered By: Amanda Nino se on 01-09-2023 Transferrin [Mass/Vol] 265 mg/dL 180-380 [facility] Calcium [Mass/volume] in Ser um or PlasmaOrdered By: Amanda Rosario on 01-09-2023 Calcium [Mass/Vol] 9.6 mg/dL 8.2-10.2 [facility] Carbon dioxide, total [Moles /volume] in Serum or PlasmaOrdered By: Amanda Rosario on 01-09-2023 CO2 [Moles/Vol] 27.2 mmol/L 22.0-30.0 [facility] Chloride [Moles/volume] in [place] or PlasmaOrdered By: Amanda Rosario on 01-09-2023 Chloride [Moles/Vol] 104 mmol/L 95-114 [facility] Creatinine and Glomerular fi ltration rate.predicted panel (S/P/Bld)Ordered By: Amanda Rosario on 01-09-2023 Creatinine [Mass/Vol] 0.72 mg/dL 0.44-1.03 [facility] Eosinophils Auto (Bld) [#/Vo l]Ordered By: Amanda Rosario on 01-09-2023 Eosinophils (Bld) [#/Vol] 0.1 10*3/uL 0.0-0.45 [facility] Eosinophils/100 WBC Auto (Bl d)Ordered By: Amanda Rosario on 01-09-2023 Eosinophils/100 WBC (Bld) 1.3 % . [facility] Erythrocyte distribution wid th Auto (RBC) [Ratio]Ordered By: Amanda Rosario on 01-09-2023 Erythrocyte distribution width (RBC) [Ratio] 13.1 % 11.9-15.3 [facility] Estimated glomerular filtrat ion rate (GFR) non- AmericanOrdered By: Amanda Rosario on 01-09-2023 GFR/1.73 sq M.predicted among non-blacks MDRD (S/P/Bld) [Vol rate/Area] > 60 mL/Min [facility] Ferritin [Mass/volume] in Se rum or PlasmaOrdered By: Amanda Rosario on 01-09-2023 Ferritin [Mass/Vol] 13.4 ng/mL 11-306.8 [facility] Globulin Calc (S) [Mass/Vol] Ordered By: Amanda Rosario on 01-09-2023 Globulin (S) [Mass/Vol] 2.3 g/dL [facility] Glucose [Mass/volume] in Ser um or PlasmaOrdered By: Amanda Rosario on 01-09-2023 Glucose [Mass/Vol] 80 mg/dL 70-100 [facility] Comment on above: ADA recommended refe rence rangeRandom Glucose Reference Range is dependent on time and content of last meal. Glucose of more than 200 mg/dL in a nonstressed, ambulatory subject supports the diagnosis of Diabetes Mellitus. Hematocrit Auto (Bld) [Volum e fraction]Ordered By: Amanda Rosario on 01-09-2023 Hematocrit (Bld) [Volume fraction] 39.5 % 34.0-46.4 [facility] Hemoglobin [Mass/volume] in BloodOrdered By: Amanda Rosario on 01-09-2023 Hemoglobin (Bld) [Mass/Vol] 13.1 g/dL 11.8-15.4 [facility] Iron [Mass/volume] in Serum or PlasmaOrdered By: Amanda Rosario on 01-09-2023 Iron [Mass/Vol] 75 ug/dL 40-150 [facility] Iron binding capacity [Mass/ volume] in Serum or PlasmaOrdered By: Amanda Rosario on 01-09-2023 Iron binding capacity [Mass/Vol] 371 ug/dL 255-450 [facility] Iron saturation [Mass Fracti on] in Serum or PlasmaOrdered By: Amanda Rosario on 01-09-2023 Iron saturation [Mass fraction] 20.2 % 20-50 [facility] Lactate dehydrogenase measur ement (enzymatic activity/volume)Ordered By: Ale Malone on 01-09-2023 LDH (Unsp spec) [Catalytic activity/Vol] 145 U/L 45-190 [facility] Leukocytes [#/volume] correc yanira for nucleated erythrocytes in Blood by Automated counOrdered By: Amanda Rosario on 01-09-2023 WBC corrected for nucl RBC Auto (Bld) [#/Vol] 4.8 10*3/uL 3.8-11.6 [facility] Lymphocytes Auto (Bld) [#/Vo l]Ordered By: Amanda Rosario on 01-09-2023 Lymphocytes (Bld) [#/Vol] 1.0 10*3/uL 1.00-4.8 [facility] Lymphocytes/100 WBC Auto (Bl d)Ordered By: Amanda Rosario on 01-09-2023 Lymphocytes/100 WBC (Bld) 20.2 % . [facility] MCH Auto (RBC) [Entitic mass ]Ordered By: Amanda Rosario on 01-09-2023 MCH (RBC) [Entitic mass] 30.0 pg 24.7-34.3 [facility] MCHC Auto (RBC) [Mass/Vol]Or dered By: Amanda Rosario on 01-09-2023 MCHC (RBC) [Mass/Vol] 33.2 g/dL 32.0-35.0 [facility] MCV Auto (RBC) [Entitic vol] Ordered By: Amanda Rosario on 01-09-2023 MCV (RBC) [Entitic vol] 90.3 fL 80-100 [facility] Monocytes Auto (Bld) [#/Vol] Ordered By: Amanda Rosario on 01-09-2023 Monocytes (Bld) [#/Vol] 0.5 10*3/uL 0.0-0.8 [facility] Monocytes/100 WBC Auto (Bld) Ordered By: Amanda Rosario on 01-09-2023 Monocytes/100 WBC (Bld) 10.5 % . [facility] Neutrophils Auto (Bld) [#/Vo l]Ordered By: Amanda Rosario on 01-09-2023 Neutrophils (Bld) [#/Vol] 3.2 10*3/uL 1.8-7.7 [facility] Neutrophils/100 WBC Auto (Bl d)Ordered By: Amanda Rosario on 01-09-2023 Neutrophils/100 WBC (Bld) 67.3 % . [facility] No Panel InformationOrdered By: Amanda Rosario on 01-09-2023 Estimated GFR () > 60 mL/Min [facility] Comment on above: GFR estimated refere nce range: According to KDOQI guidelines, <60 ml/min/1.73m2 is sufficient to diagnose a patient with chronic kidney disease. Pharmacy Creatinine Clearance (Chem 120.49 [facility] Nucleated erythrocytes [Pres ence] in Blood by Automated countOrdered By: Amanda Rosario on 01-09-2023 Nucleated RBC Auto Ql (Bld) 0.1 /100{WBC} 0-0.5 [facility] Platelet mean volume Auto (B ld) [Entitic vol]Ordered By: Amanda Rosario on 01-09-2023 Platelet mean volume (Bld) [Entitic vol] 7.9 fL 6.3-10.7 [facility] Platelets Auto (Bld) [#/Vol] Ordered By: Amanda Rosario on 01-09-2023 Platelets (Bld) [#/Vol] 290 10*3/uL 150-450 [facility] Potassium [Moles/volume] in Serum or PlasmaOrdered By: Amanda Rosario on 01-09-2023 Potassium [Moles/Vol] 4.4 mmol/L 3.5-5.1 [facility] Protein [Mass/volume] in Ser um or PlasmaOrdered By: Amanda Rosario on 01-09-2023 Protein [Mass/Vol] 6.6 g/dL 6.1-7.9 [facility] RBC Auto (Bld) [#/Vol]Ordere d By: Amanda Rosario on 01-09-2023 RBC (Bld) [#/Vol] 4.37 10*6/uL 3.60-5.00 [facility] Serum or plasma alanine green otransferase measurement without P-5'-P (enzymatic activiOrdered By: Amanda Rosario on 01-09-2023 ALT No additional P-5'-P [Catalytic activity/Vol] 20 U/L 10-60 [facility] Serum or plasma albumin/glob ulin mass ratioOrdered By: Amanda Rosario on 01-09-2023 Albumin/Globulin [Mass ratio] 1.9 {ratio} [facility] Serum or plasma anion gap de terminationOrdered By: Amanda Rosario on 01-09-2023 Anion gap [Moles/Vol] 10.2 mmol/L 6.0-15.0 [facility] Sodium [Moles/volume] in Ser um or PlasmaOrdered By: Amanda Rosario on 01-09-2023 Sodium [Moles/Vol] 137 mmol/L 136-146 [facility] Urea nitrogen [Mass/volume] in Serum or PlasmaOrdered By: Amanda Rosario on 01-09-2023 Urea nitrogen [Mass/Vol] 13 mg/dL 9-23 [facility] WBC Auto (Bld) [#/Vol]Ordere d By: Amanda Rosario on 01-09-2023 WBC (Bld) [#/Vol] 4.8 10*3/uL 3.8-11.6 [facility] CBC AUTO DIFFon 12-31-2022 BASO # 0.1 103/ul Normal 0.0-0.1 [facility] Comment on above: Performed By: #### C BC #### [facility] [address] [place] [address] Dr. Beth Pineda Basophils/100 WBC (Bld) 1.2 % Normal 0.2-2.0 [facility] Comment on above: Performed By: #### C BC #### [facility] [address] [place] [address] Dr. Beth Pineda EO # 0.1 103/ul Normal 0.0-0.7 [facility] Comment on above: Performed By: #### C BC #### [facility] [address] [place] [address] Dr. Beth Pineda Eosinophils/100 WBC (Bld) 2.1 % Normal 0.9-7.0 [facility] Comment on above: Performed By: #### C BC #### [facility] [address] [place] [address] Dr. Beth Pienda Erythrocyte distribution width (RBC) [Ratio] 12.9 % Normal 11.0-15.0 [facility] Comment on above: Performed By: #### C BC #### [facility] [address] [place] [address] Dr. Beth Pineda Hematocrit (Bld) [Volume fraction] 41.2 % Normal 36.0-48.0 [facility] Comment on above: Performed By: #### C BC #### [facility] [address] [place] [address] Dr. Beth Pineda Hemoglobin (Bld) [Mass/Vol] 13.5 g/dL Normal 12.0-16.0 [facility] Comment on above: Performed By: #### C BC #### [facility] [address] [place] [address] Dr. Beth Pineda IG # 0.01 10e3/ul Normal 0.00-0.03 [facility] Comment on above: Performed By: #### C BC #### [facility] [address] [place] [address] Dr. Beth Pineda IG % 0.2 % Normal 0.0-0.5 [facility] Comment on above: Performed By: #### C BC #### [facility] [address] [place] [address] Dr. Beth Pineda LYMPH # 1.6 103/ul Normal 1.2-3.8 [facility] Comment on above: Performed By: #### C BC #### [facility] [address] [place] [address] Dr. Beth Pineda Lymphocytes/100 WBC (Bld) 29.9 % Normal 20.5-60.0 [facility] Comment on above: Performed By: #### C BC #### [facility] [address] [place] [address] Dr. Beth Pineda MANUAL DIFF REQ NO Normal [facility] Comment on above: Performed By: #### C BC #### [facility] [address] [place] [address] Dr. Beth Pineda MCH (RBC) [Entitic mass] 30.3 pg Normal 26.7-34.0 [facility] Comment on above: Performed By: #### C BC #### [facility] [address] [place] [address] Dr. Beth Pineda MCHC (RBC) [Mass/Vol] 32.8 g/dL Normal 29.9-35.2 [facility] Comment on above: Performed By: #### C BC #### [facility] [address] [address] [address] Beth Pineda MCV (RBC) [Entitic vol] 92.6 fL Normal 81.0-99.0 [facility] Comment on above: Performed By: #### C BC #### [facility] [address] [address] [address] Beth Pineda MONO # 0.4 103/ul Normal 0.3-0.8 [facility] Comment on above: Performed By: #### C BC #### [facility] [address] [place] [address] Dr. Beth Pineda Monocytes/100 WBC (Bld) 7.9 % Normal 1.7-12.0 [facility] Comment on above: Performed By: #### C BC #### [facility] [address] [place] [address] Dr. Beth Pineda NEUT # 3.0 103/ul Normal 1.4-6.5 [facility] Comment on above: Performed By: #### C BC #### [facility] [address] [place] [address] Dr. Beth Pineda Neutrophils/100 WBC (Bld) 58.7 % Normal 43.0-75.0 [facility] Comment on above: Performed By: #### C BC #### [facility] [address] [place] [address] Dr. Beth Pineda Platelet mean volume (Bld) [Entitic vol] 9.3 fL Critically low 9.5-13.5 [facility] Comment on above: Performed By: #### C BC #### [facility] [address] [place] [address] Dr. Beth Pineda PLT 304 103/ul Normal 150-450 [facility] Comment on above: Performed By: #### C BC #### [facility] [address] [place] [address] Dr. Beth Pineda RBC 4.45 106/ul Normal 4.20-5.40 [facility] Comment on above: Performed By: #### C BC #### [facility] [address] [address] [address] Beth Pineda WBC 5.2 103/ul Normal 4.0-11.0 [facility] Comment on above: Performed By: #### C BC #### [facility] [address] [place] [address] Dr. Beth Pineda GLYCOHEMOGLOBIN A1Con 2022 ADA RECOMMENDATION SEE BELOW Normal [facility] Comment on above: Result Comment: ADA RECOMMENDED LIMIT 4.0 - 6.0 ADA THERAPEUTIC TARGET < 7.0 ACTION SUGGESTED > 7.0 Performed By: #### T SH #### [facility] [address] [place] [address] Dr. Beth Pineda Glucose [Mass/Vol] 91 mg/dL Normal [facility] Comment on above: Performed By: #### T SH #### [facility] [address] [place] [address] Dr. Beth Pineda HbA1c (Bld) [Mass fraction] 4.8 % Normal 4.5-6.2 [facility] Comment on above: Performed By: #### T SH #### [facility] [address] [place] [address] Dr. Beth Pineda LIPID PROFILEon 12-31-2022 CHOL-HDL RATIO NORM SEE BELOW Normal [facility] Comment on above: Result Comment: 3.3 - 4.4 LOW RISK 4.4 - 7.1 AVERAGE RISK 7.1 - 11.0 MODERATE RISK >11.0 HIGH RISK Performed By: #### A 1C #### [facility] [address] [place] [address] Dr. Beth Pineda Cholesterol [Mass/Vol] 180 mg/dL Normal <=200 [facility] Comment on above: Performed By: #### A 1C #### [facility] [address] [place] [address] Dr. Beth Pineda Cholesterol in HDL [Mass/Vol] 106 mg/dL Critically high 40-60 [facility] Comment on above: Performed By: #### A 1C #### [facility] [address] [address] [address] Beth Pineda Cholesterol in LDL [Mass/Vol] 66.6 mg/dL Normal [facility] Comment on above: Performed By: #### A 1C #### [facility] [address] [address] [address] Beth Pineda Cholesterol.total/Elida sterol in HDL [Mass ratio] 1.7 {ratio} Normal [facility] Comment on above: Performed By: #### A 1C #### [facility] [address] [address] [address] Beth Pineda HDL NORMAL > or = 60 mg/dl - LO W CARDIOVASCULAR RISK <40 mg/dl - HIGH CARDIOVASCULAR RISK Normal [facility] Comment on above: Performed By: #### A 1C #### [facility] [address] [place] [address] Dr. Beth Pineda LDL CALC NORMAL SEE BELOW Normal [facility] Comment on above: Result Comment: <100 mg/dl OPTIMAL 100 - 129 mg/dl NEAR OR ABOVE OPTIMAL 130 - 159 mg/dl BORDERLINE HIGH 160 - 189 mg/dl HIGH >190 mg/dl VERY HIGH Performed By: #### A 1C #### [facility] [address] [address] [address] Beth Pineda Triglyceride [Mass/Vol] 37 mg/dL Normal <=150 [facility] Comment on above: Performed By: #### A 1C #### [facility] [address] [address] [address] Beth Pineda VLDL CALC 7.4 mg/dL Normal [facility] Comment on above: Performed By: #### A 1C #### [facility] [address] [address] [address] Beth Pineda PROF 14(COMP METB)on 023 Albumin [Mass/Vol] 4.3 g/dL Normal 3.4-5.0 [facility] Comment on above: Performed By: #### T SH #### [facility] [address] [address] [address] Beth Pineda Albumin/Globulin [Mass ratio] 1.3 {ratio} Normal [facility] Comment on above: Performed By: #### T SH #### [facility] [address] [address] [address] Beth Pineda ALP [Catalytic activity/Vol] 68 U/L Normal 46-116 [facility] Comment on above: Performed By: #### T SH #### [facility] [address] [place] [address] Dr. Beth Pineda ALT [Catalytic activity/Vol] 21 U/L Normal 14-59 [facility] Comment on above: Performed By: #### T SH #### [facility] [address] [place] [address] Dr. Beth Pineda Anion gap [Moles/Vol] 12.1 mmol/L Normal Th [facility] Comment on above: Performed By: #### T SH #### [facility] [address] [place] [address] Dr. Beth Pineda AST [Catalytic activity/Vol] 10 U/L Critically low 15-37 [facility] Comment on above: Performed By: #### T SH #### [facility] [address] [place] [address] Dr. Beth Pineda Bilirubin [Mass/Vol] 0.6 mg/dL Normal 0.2-1.0 [facility] Comment on above: Performed By: #### T SH #### [facility] [address] [place] [address] Dr. Beth Pineda Calcium [Mass/Vol] 9.2 mg/dL Normal 8.5-10.1 [facility] Comment on above: Performed By: #### T SH #### [facility] [address] [place] [address] Dr. Beth Pineda Chloride [Moles/Vol] 103 mmol/L Normal 98-107 [facility] Comment on above: Performed By: #### T SH #### [facility] [address] [place] [address] Dr. Beth Pineda CO2 [Moles/Vol] 28.0 mmol/L Normal 21.0-32.0 [facility] Comment on above: Performed By: #### T SH #### [facility] [address] [place] [address] Dr. Beth Pineda Creatinine [Mass/Vol] 0.73 mg/dL Normal 0.55-1.02 [facility] Comment on above: Performed By: #### T SH #### [facility] [address] [place] [address] Dr. Beth Pineda EGFR-AF CHINESE >60 Normal >=[address] [facility] Comment on above: Performed By: #### T SH #### [facility] [address] [place] [address] Dr. Beth Pineda EGFR-NON AF CHINESE >60 Normal >=60 [facility] Comment on above: Performed By: #### T SH #### [facility] [address] [place] [address] Dr. Beth Pineda Globulin (S) [Mass/Vol] 3.2 g/dL Normal [facility] Comment on above: Performed By: #### T SH #### [facility] [address] [place] [address] Dr. Beth Pineda Glucose [Mass/Vol] 89 mg/dL Normal 74-106 [facility] Comment on above: Performed By: #### T SH #### [facility] [address] [place] [address] Dr. Beth Pineda Potassium [Moles/Vol] 4.1 mmol/L Normal 3.5-5.1 [facility] Comment on above: Performed By: #### T SH #### [facility] [address] [place] [address] Dr. Beth Pineda Protein [Mass/Vol] 7.5 g/dL Normal 6.4-8.2 [facility] Comment on above: Performed By: #### T SH #### [facility] [address] [place] [address] Dr. Beth Pineda Sodium [Moles/Vol] 139 mmol/L Normal 136-145 [facility] Comment on above: Performed By: #### T SH #### [facility] [address] [place] [address] Dr. Beth Pineda Urea nitrogen [Mass/Vol] 10.0 mg/dL Normal 7.0-18.0 [facility] Comment on above: Performed By: #### T SH #### [facility] [address] [place] [address] Dr. Beth Pineda Urea nitrogen/Creatinine [Mass ratio] 13.7 mg/mg Normal [facility] Comment on above: Performed By: #### T SH #### [facility] [address] [address] [address] Beth Pineda TSHon 12-31-2022 TSH 3.121 uIU/mL Normal 0.358-3.[address] [facility] Comment on above: Performed By: #### A 1C #### [facility] [address] [place] [address] Dr. Beth Pineda Albumin [Mass/volume] in Ser um or PlasmaOrdered By: Amanda Rosario on 07-08-2022 Albumin [Mass/Vol] 3.9 g/dL 3.2-5.5 [facility] Basophils Auto (Bld) [#/Vol] Ordered By: Amanda Rosario on 07-08-2022 Basophils (Bld) [#/Vol] 0.1 10*3/uL 0.0-0.2 [facility] Basophils/100 WBC Auto (Bld) Ordered By: Amanda Rosario on 07-08-2022 Basophils/100 WBC (Bld) 1.3 % . [facility] Blood hemoglobin measurement (mass/volume)Ordered By: Amanda Rosario on 07-08-2022 Hemoglobin (Bld) [Mass/Vol] 14.2 g/dL 11.8-15.4 [facility] Blood leukocytes automated c ount (number/volume)Ordered By: Amanda Rosario on 07-08-2022 WBC (Bld) [#/Vol] 5.6 10*3/uL 4.5-11.[address] [facility] [address] biopsyOrdered By: Amanda Nino se on 07-08-2022 Transferrin [Mass/Vol] 346 mg/dL 180-380 Fi [facility] Creatinine and Glomerular fi ltration rate.predicted panel (S/P/Bld)Ordered By: Amanda Rosario on 07-08-2022 Creatinine [Mass/Vol] 0.78 mg/dL 0.44-1.03 [facility] Eosinophils Auto (Bld) [#/Vo l]Ordered By: Amanda Rosario on 07-08-2022 Eosinophils (Bld) [#/Vol] 0.1 10*3/uL 0.0-0.45 [facility] Eosinophils/100 WBC Auto (Bl d)Ordered By: Amanda Rosario on 07-08-2022 Eosinophils/100 WBC (Bld) 1.2 % . [facility] Erythrocyte distribution wid th Auto (RBC) [Ratio]Ordered By: Amanda Rosario on 07-08-2022 Erythrocyte distribution width (RBC) [Ratio] 12.4 % 11.9-15.3 [facility] Estimated glomerular filtrat ion rate (GFR) non- AmericanOrdered By: Amanda Rosario on 07-08-2022 GFR/1.73 sq M.predicted among non-blacks MDRD (S/P/Bld) [Vol rate/Area] > 60 mL/Min [facility] Ferritin [Mass/volume] in Se rum or PlasmaOrdered By: Amanda Rosario on 07-08-2022 Ferritin [Mass/Vol] 9.6 ng/mL 11-306.8 [facility] Globulin Calc (S) [Mass/Vol] Ordered By: Amanda Rosario on 07-08-2022 Globulin (S) [Mass/Vol] 2.9 g/dL [facility] Hematocrit Auto (Bld) [Volum e fraction]Ordered By: Amanda Rosario on 07-08-2022 Hematocrit (Bld) [Volume fraction] 42.7 % 34.0-46.4 [facility] Iron [Mass/volume] in Serum or PlasmaOrdered By: Amanda Rosario on 07-08-2022 Iron [Mass/Vol] 173 ug/dL 40-150 [facility] Iron binding capacity [Mass/ volume] in Serum or PlasmaOrdered By: Amanda Rosario on 07-08-2022 Iron binding capacity [Mass/Vol] 484 ug/dL 255-450 [facility] Iron saturation [Mass Fracti on] in Serum or PlasmaOrdered By: Amanda Rosario on 07-08-2022 Iron saturation [Mass fraction] 35.0 % 20-50 [facility] - Hematology and Cell countsOrdered By: Amanda Rosario on 07-08-2022 Nucleated RBC/100 WBC (Bld) [Ratio] 0.2 % 0-0.5 [facility] Lactate dehydrogenase measur ement (enzymatic activity/volume)Ordered By: Amanda Rosario on 07-08-2022 LDH (Unsp spec) [Catalytic activity/Vol] 154 U/L 45-190 [facility] Lymphocytes Auto (Bld) [#/Vo l]Ordered By: Amanda Rosario on 07-08-2022 Lymphocytes (Bld) [#/Vol] 1.5 10*3/uL 1.00-4.8 [facility] Lymphocytes/100 WBC Auto (Bl d)Ordered By: Amanda Rosario on 07-08-2022 Lymphocytes/100 WBC (Bld) 26.6 % . [facility] MCH Auto (RBC) [Entitic mass ]Ordered By: Amanda Rosario on 07-08-2022 MCH (RBC) [Entitic mass] 29.7 pg 24.7-34.3 [facility] MCHC Auto (RBC) [Mass/Vol]Or dered By: Amanda Rosario on 07-08-2022 MCHC (RBC) [Mass/Vol] 33.3 g/dL 32.0-35.0 [facility] MCV Auto (RBC) [Entitic vol] Ordered By: Amanda Rosario on 07-08-2022 MCV (RBC) [Entitic vol] 89.4 fL 80-100 [facility] Monocytes Auto (Bld) [#/Vol] Ordered By: Amadna Rosario on 07-08-2022 Monocytes (Bld) [#/Vol] 0.5 10*3/uL 0.0-0.8 [facility] Monocytes/100 WBC Auto (Bld) Ordered By: Amanda Rosario on 07-08-2022 Monocytes/100 WBC (Bld) 9.7 % . [facility] Neutrophils Auto (Bld) [#/Vo l]Ordered By: Amanda Rosario on 07-08-2022 Neutrophils (Bld) [#/Vol] 3.4 10*3/uL 1.8-7.7 [facility] Neutrophils/100 WBC Auto (Bl d)Ordered By: Amanda Rosario on 07-08-2022 Neutrophils/100 WBC (Bld) 61.2 % . [facility] No Panel InformationOrdered By: Amanda Rosario on 07-08-2022 Adrenocorticotropic Hormone 8.2 pg/mL 7.2-63.3 [facility] Comment on above: ACTH reference inter cruz for samples collected between 7 and 10 AM. Performed at: [employer] [id number] Tower Hand: Sai Smalls PhD, Phone: [phone] ACTH reference inter cruz for samples collected between 7 and10 AM.Performed at: [employer] [address] [id number] Director: Sai Smalls PhD, Phone: [phone] Estimated GFR () > 60 mL/Min [facility] Comment on above: GFR estimated refere nce range: According to KDOQI guidelines, <60 ml/min/1.73m2 is sufficient to diagnose a patient with chronic kidney disease. Pharmacy Creatinine Clearance (Chem 111.22 [facility] Total Triiodothyronine 1.68 ng/mL 0.87-1.78 Fi [facility] Platelet mean volume Auto (B ld) [Entitic vol]Ordered By: Amanda Rosario on 07-08-2022 Platelet mean volume (Bld) [Entitic vol] 8.0 fL 6.3-10.7 [facility] Platelets Auto (Bld) [#/Vol] Ordered By: Amanda Rosario on 07-08-2022 Platelets (Bld) [#/Vol] 393 10*3/uL 150-450 [facility] Protein [Mass/volume] in Ser um or PlasmaOrdered By: Amanda Rosario on 07-08-2022 Protein [Mass/Vol] 6.8 g/dL 6.1-7.9 [facility] RBC Auto (Bld) [#/Vol]Ordere d By: Amanda Rosario on 07-08-2022 RBC (Bld) [#/Vol] 4.78 10*6/uL 3.60-5.00 [facility] Random cortisol measurementO rdered By: Amanda Rosario on 07-08-2022 Cortisol [Mass/Vol] 12.6 ug/dL [facility] Comment on above: Reference range: AM 6 - 24 ug/dl PM <10 ug/dl Reference range: AM 6 - 24 ug/dl PM <10 ug/dl Serum or plasma alanine green otransferase measurement without P-5'-P (enzymatic activiOrdered By: Amanda Rosario on 07-08-2022 ALT No additional P-5'-P [Catalytic activity/Vol] 17 U/L 10-60 [facility] Serum or plasma albumin/glob ulin mass ratioOrdered By: Amanda Rosario on 07-08-2022 Albumin/Globulin [Mass ratio] 1.3 {ratio} [facility] Serum or plasma alkaline mando sphatase measurement (enzymatic activity/volume)Ordered By: Amanda Rosario on 07-08-2022 ALP [Catalytic activity/Vol] 52 U/L 32-92 [facility] Serum or plasma aspartate am inotransferase measurement (enzymatic activity/volume)Ordered By: Amanda Rosario on 07-08-2022 AST [Catalytic activity/Vol] 22 U/L 10-42 [facility] Serum or plasma calcium saritha urement (mass/volume)Ordered By: Amanda Rosario on 07-08-2022 Calcium [Mass/Vol] 9.3 mg/dL 8.2-10.2 [facility] Serum or plasma chloride obi surement (moles/volume)Ordered By: Amanda Rosario on 07-08-2022 Chloride [Moles/Vol] 104 mmol/L 95-114 [facility] Serum or plasma glucose saritha urement (mass/volume)Ordered By: Amanda Rosario on 07-08-2022 Glucose [Mass/Vol] 83 mg/dL 70-100 [facility] Comment on above: ADA recommended refe rence range Random Glucose Reference Range is dependent on time and content of last meal. Glucose of more than 200 mg/dL in a nonstressed, ambulatory subject supports the diagnosis of Diabetes Mellitus. Serum or plasma potassium me asurement (moles/volume)Ordered By: Amanda Rosario on 07-08-2022 Potassium [Moles/Vol] 4.3 mmol/L 3.5-5.1 [facility] Serum or plasma sodium measu rement (moles/volume)Ordered By: Amanda Rosario on 07-08-2022 Sodium [Moles/Vol] 134 mmol/L 136-146 [facility] Serum or plasma thyroxine (T 4) measurement (mass/volume)Ordered By: Amanda Rosario on 07-08-2022 T4 [Mass/Vol] 11.18 ug/dL 5.39-11.82 [facility] Serum or plasma total biliru bin measurement (mass/volume)Ordered By: Amanda Rosario on 07-08-2022 Bilirubin [Mass/Vol] 0.7 mg/dL 0.3-1.2 [facility] Serum or plasma total carbon dioxide measurement (moles/volume)Ordered By: Amanda Rosario on 07-08-2022 CO2 [Moles/Vol] 22.2 mmol/L 22.0-30.0 [facility] Serum or plasma urea nitroge n measurement (mass/volume)Ordered By: Amanda Rosario on 07-08-2022 Urea nitrogen [Mass/Vol] 9 mg/dL 9-23 [facility] TSH DL <= 0.005 mIU/L QnOrde red By: Amanda Rosario on 07-08-2022 TSH Qn 1.69 m[IU]/L 0.45-5.33 [facility] CHLAMYDIA/GONOCOCCUS PARMINDER (SW AB/URINE/PAPon 06-19-2022 Chlamydia trachomatis, PARMINDER Negative Normal Negative [facility] Comment on above: Performed By: #### T SH #### [facility] [address] [place] [address] Dr. Beth Pineda Neisseria gonorrhoeae, PARMINDER Negative Normal Negative [facility] Comment on above: Performed By: #### T SH #### [facility] [address] [address] [address] Beth Pineda VAGINITIS/VAGINOSIS DNA PROB Kaden 06-18-2022 Steven species Negative Normal Negative [facility] Comment on above: Performed By: #### T SH #### [facility] [address] [place] [address] Dr. Beth Pineda Gardnerella vaginalis Negative Normal Negative [facility] Comment on above: Performed By: #### T SH #### [facility] [address] [address] [address] Beth Pineda Trichomonas vaginalis Negative Normal Negative [facility] Comment on above: Performed By: #### T SH #### [facility] [address] [address] [address] Beth Pineda Creatinine [Mass/volume] in UrineOrdered By: Amanda Rosario on 05-23-2022 Creatinine (U) [Mass/Vol] 26.2 mg/dL [facility] Comment on above: No reference range e stablished Laboratory - Chemistry and C hemistry - challengeOrdered By: Amanda Rosario on 05-23-2022 Lipase [Catalytic activity/Vol] 32.0 U/L 22-51 [facility] Protein [Mass/volume] in Uri neOrdered By: Amanda Rosario on 05-23-2022 Protein (U) [Mass/Vol] mg/dL 0-9 [facility] Thyroxine (T4) free [Mass/vo lume] in Serum or PlasmaOrdered By: Amanda Rosario on 05-23-2022 Free T4 [Mass/Vol] 0.88 ng/dL 0.61-1.12 [facility] Bilirubin Test strip Ql (U)O rdered By: Amanda Rosario on 10-30-2021 Bilirubin Ql (U) Negative Negative [facility] Color Auto (U)Ordered By: Ira Rosario on 10-30-2021 Color (U) Yellow Yellow [facility] Ketones Auto test strip (U) [Mass/Vol]Ordered By: Amanda Rosario on 10-30-2021 Ketones (U) [Mass/Vol] Negative Negative Fi [facility] Nitrite Test strip Ql (U)Ord ered By: Amanda Rosario on 10-30-2021 Nitrite Ql (U) Negative Negative [facility] Protein Auto test strip (U) [Mass/Vol]Ordered By: Amanda Rosario on 10-30-2021 Protein (U) [Mass/Vol] Negative Negative Fi [facility] Specific gravity Auto test s trip (U) [Rel density]Ordered By: Amanda Rosario on 10-30-2021 Specific gravity (U) [Rel density] 1.008 1.001-1.030 [facility] Urine clarity by refractomet ry automatedOrdered By: Amanda Rosario on 10-30-2021 Clarity Refractometry automated (U) Clear Clear [facility] Urine glucose measurement by automated test strip (mass/volume)Ordered By: Amanda Rosario on 10-30-2021 Glucose Auto test strip (U) [Mass/Vol] Normal mg/dL Normal [facility] Urine hemoglobin detection b y automated test stripOrdered By: Amanda Rosario on 10-30-2021 Hemoglobin Auto test strip Ql (U) Negative Negative [facility] Urine leukocyte esterase det ection by automated test stripOrdered By: Amanda Rosario on 10-30-2021 Leukocyte esterase Auto test strip Ql (U) Negative Negative [facility] Urobilinogen Auto test strip (U) [Mass/Vol]Ordered By: Amanda Rosario on 10-30-2021 Urobilinogen (U) [Mass/Vol] Normal mg/dL Normal [facility] pH Auto test strip (U)Ordere d By: Amanda Rosario on 10-30-2021 pH (U) 5.5 [pH] 5.0-9.0 [facility] Lab Reportson 07-31-2021 Lab Reports [id number] D:127 Normal [facility] RAD - MISCon 07-31-2021 RAD [facility] [id number] D:127 Normal [facility] HCG ( test) IA.rapi d Ql (U)Ordered By: Amanda Rosario on 07-09-2021 HCG ( test) Ql (U) Negative [facility] Glucose Glucometer (BldC) [M ass/Vol]Ordered By: Amanda Rosario on 07-01-2021 Glucose [Mass/Vol] 82 mg/dL [facility] Comment on above: Random Glucose Refer ence Range is dependent on time and content of last meal. Glucose of more than 200 mg/dL in a nonstressed, ambulatory subject supports the diagnosis of Diabetes Mellitus. 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 Will follow up with the pathology report once this is resulted Dictation software was used in the creation of this note and not corrected for typographical or grammatical errors Chief Complaint Postop History of Present [id number] woman who underwent wide excision right posterior calf melanoma with Preemption flap reconstruction as well as right inguinal and iliac sentinel lymph node biopsy on 05/17/2021. Pathology report has not yet resulted. She is recovering well. Active Problems Malignant melanoma of lower leg, right (172.7) (C43.71) Allergies No Known Drug Allergies Recorded By: Florence Fernando; 05/30/2021 2:49:13 PM Vitals Vital Signs Recorded: 30May2021 02:47PM [id number] C, Temporal Heart [id number] Npydbipr958, RUE, Sitting Mzupaecsh68, RUE, Sitting Blood Pressure Cuff SizeAdult Awqqyx851 cm Iqlvip67.6 kg BMI Rszivupppa30.58 kg/m2 BSA Calculated1.77 O2 Rzjuxqfmbq16 Pain Scale0 Physical Exam Right groin wounds above and below the inguinal crease are both healing well without evidence of infection or seroma Right lower leg incision healing well without infection or skin separation. There is some bruising noted around the flap but no flap ischemia Signatures Electronically signed by : Sarah Nevarez MD; May 30 2021 3:18PM EST (Author) Normal [employer] Dermatopathologyon Dermatopathology Name OMISES KANG Pathologist: ANUJA OLIVO MD Date of [...] BIOPSY: METASTATIC MALIGNANT MELANOMA WITHOUT EXTRACAPSULAR EXTENSION (1/) (SEE COMMENT): Comment: A SOX-10 immunostain (control appropriate) highlights a small subcapsular collection of atypical melanocytes (0.03 mm deposit). These were compared to the original melanoma ([id number]) and are consistent with a metastatic focus [...] that were compared to the original melanoma ([id number]) and are smaller with less cytoplasm compared [...] determined by the Department of Pathology at [facility]. The FDA does not require this test [...] landis-yellow irregularly shaped piece of skin measuring [id number]. The specimen is embedded in toto. B: Received in formalin is a landis-yellow irregularly shaped piece of skin measuring [id number]. The specimen is embedded in toto. C: Received in formalin is a landis-yellow irregularly shaped piece of skin measuring [id number]. The specimen is embedded in toto. D: Received in formalin is a landis ellipse of skin measuring [id number], oriented by the surgeon with short stitch [...] Block 1 is at 12 o'clock. ink/05/21/2021 [facility] Dermatopathology Laboratory [place] [id number] [place] [address], [facility] [address] [place] [address] Comment on above: Performed By: #### D #### Dermatopathology HCG,URINEon 05-17-2021 Beta HCG ( test) Ql (U) Negative Normal Negative [facility] Comment on above: Performed By: #### H CGU #### [facility] [address] [place] [address] LYMPH GLANDon 05-17-2021 LYMPH GLAND Patient Name: AILYN KANG STUDY: LYMPH GLAND; 05/17/2021 12:45 pm INDICATION: Malignant melanoma of right posterior leg. COMPARISON: None. ACCESSION NUMBER(S): [id number] ORDERING CLINICIAN: SARAH NEVAREZ TECHNIQUE: DIVISION OF [...] as stated. This study was interpreted at [facility], [place], [place]. Electronically signed by: TAMY LAWTON MD Normal [facility] NM Lymph Glandon 05-17-2021 NM Lymph node Views Normal MG-Blevins rgery-A dmin Main Work Phone: No Panel Informationon 05-17 CL-Ipbzejo-F [facility] Work Phone: Order Reconciliationon 05-17 Order [...] days PRN pain, Dx: G89.18 Normal [facility] Patient Profile - Preop v2on 05-17-2021 Patient Profile - Preop v2 Profile: Initial Info: How to be AddressedSamantha Spoken Language PreferredEnglish Source of Informationpatient Are you currently using the Personal Electronic Health Record or iCents.netNicOxno Are you interested in learning more about [facility] for the management of your healthnot at this time Stated Reason for Admissionwide excision melanoma right posterior leg, keystone flap and sentinel lymph node biopsy Primary Contact Name and NumberChleigh ann lao [phone] Limitations on Visitors/Phone Callsnone Patient Belongingsremains with patient Patient Belongings Remaining with Patientclothing; cell phone/electronics Medications Brought to Hospitalno General Health: Weight in kg63.6 kilogram(s) Weight in vvc182.2 pound(s) Weight Methodstated Height in feet5 feet Height in inches8 inch(es) Height in cm172.7 centimeter(s) Height Methodstated BMI (kg/m2)21.324 square meter Patient or Family Member Reaction to Anesthesianever had anesthesia Blood Avoidance/Restrictionsn one Previous Transfusion Reactionno Health Mgmt: Symptoms/Conditions Managed at Homenone Are You no Are You Currently Breastfeedingno Barriers to Managing Healthnone Relationship/Environ: Living Arrangementshouse Lives Withsignificant other Resource/Environmental Concernsnone [facility] Anticipated at Transitionnone Substance: [...] instruction; written material Cultural Considerationsnone Developmental Considerationsnone Evangelical Considerationsnone Other learner availableno Falls RiskPatient location auto qualifies him/her for HIGH RISK. Are there any cultural, spiritual, confucianist practices/values/needs that are important for us to knowno Do you want a visit/item from [facility] Would you like your Electric Stove Mechanic/Surgeon'S Assistant notifiedno Pain Scalenumerical 0-10 Pain Scale Educationteaching provided Current Pain Level0 = None Acceptable Pain Level3 = Mild Expression of Pain (nonverbal)none Lifestyle Changes/Adaptations in Response to Painno change Barriers to Reporting Painnone Chronic Painno Information Review: Allergies, Home Meds and Significant Events have been Reviewed and Verified with Patient/Familyyes Allergy, Intolerance, Adverse Event: Allergies: No Known Allergies: Active Electronic Signatures: Arabella Luis) (Signed 17-May-2021 09:34) Authored: Initial Info, General Health, Health Mgmt, Relationship/Environ, Substance, Risk Screens, Additional Information Last Updated: 17-May-2021 09:34 by Arabella Luis) [facility] Preop Checkliston 05-17-2021 Preop Checklist Preop Checklist: Preop Checklist: Arrival [id number] Arrival Time08:55 Procedure Typewide excision melanoma right posterior leg, keystone flap and sentinel lymph node biopsy Temperature C37.1 degrees C Temperature F98.7 degrees F Heart Rate92 beats per minute Respiratory Rate16 breath per minute Blood Pressure Frxhirqj033 mm/Hg Blood Pressure Mmxprjbjg00 mm/Hg NPO [id number] 22:00 Allergy Bandno known allergies Consent Signedyes [...] Checklist Last Updated: 17-May-2021 09:36 by Arabella Luis) [facility] Urine Teston 05-17 HCG ( test) Ql (U) Negative Negative UR-Gkbbvfg-X dmin Main Work Phone: Initial Visit (General [...] errors Chief Complaint Melanoma History of Present [id number] woman referred from [facility] for right [...] May 02 2021 4:04PM EST (Author) Normal [employer] Vital Signs Date Time Vital Sign Value Performing Clinician Facility 11-28-2024 14:41-0500 Body mass index (BMI) [Ratio] 22.74 kg/m2 [employer] Work Phone: [facility] 11-28-2024 14:41-0500 Body weight 69.85 kg [employer] Work Phone: [facility] 11-28-2024 14:41-0500 Diastolic blood pressure 70 mm[Hg] [employer] Phone: [facility] 11-28-2024 14:41-0500 Systolic blood pressure 118 mm[Hg] [employer] Work Phone: [facility] 10-24-2024 14:44-0500 Body mass index (BMI) [Ratio] 22 kg/m2 Delvis Kt DO Work Phone: [facility] 10-24-2024 14:44-0500 Body weight 67.59 kg Delvis Kt DO Work Phone: [facility] 10-24-2024 14:44-0500 Diastolic blood pressure 68 mm[Hg] Delvis Kt DO Work Phone: [facility] 10-24-2024 14:44-0500 Systolic blood pressure 114 mm[Hg] Delvis Kt DO Work Phone: [facility] 10-11-2024 14:39-0500 Body height 175.3 cm Mike Wagner MD Work Phone: [facility] 10-11-2024 14:39-0500 Body mass index (BMI) [Ratio] 21.56 kg/m2 Mike Wagner MD Work Phone: [facility] 10-11-2024 14:39-0500 Body temperature 97.5 [degF] Mike Wagner MD Work Phone: [facility] 10-11-2024 14:39-0500 Body weight 66.22 kg Mike Wagner MD Work Phone: [facility] 10-11-2024 14:39-0500 Diastolic blood pressure 52 mm[Hg] Mike Wagner MD Work Phone: [facility] 10-11-2024 14:39-0500 Heart rate 106 /min Mike Wagner MD Work Phone: [facility] 10-11-2024 14:39-0500 Respiratory rate 22 /min Mike Wagner MD Work Phone: [facility] 10-11-2024 14:39-0500 SaO2% (BldA) [Mass fraction] 99 % Mike Wagner MD Work Phone: [facility] 10-11-2024 14:39-0500 Systolic blood pressure 118 mm[Hg] Mike Wagner MD Work Phone: [facility] 09-26-2024 15:17-0500 Body mass index (BMI) [Ratio] 21.34 kg/m2 Delvis Kt DO Work Phone: [facility] 09-26-2024 15:17-0500 Body weight 65.55 kg Delvis Kt DO Work Phone: [facility] 09-26-2024 15:17-0500 Diastolic blood pressure 68 mm[Hg] Delvis Kt DO Work Phone: [facility] 09-26-2024 15:17-0500 Systolic blood pressure 116 mm[Hg] Delvis Kt DO Work Phone: [facility] 08-26-2024 10:04-0400 Body mass index (BMI) [Ratio] 20.97 kg/m2 [facility] Nurse [facility] 08-26-2024 10:04-0400 Body weight 64.41 kg [facility] Nurse [facility] 08-26-2024 10:04-0400 Diastolic blood pressure 82 mm[Hg] [facility] Nurse [facility] 08-26-2024 10:04-0400 Systolic blood pressure 118 mm[Hg] [facility] Nurse [facility] 05-22-2023 08:55-0400 Body temperature 97.8 [degF] MD Sarah Nevarez Work Phone: [facility] 05-22-2023 08:55-0400 Body weight 69.85 kg MD Sarah Nevarez Work Phone: [facility] 05-22-2023 08:55-0400 Diastolic blood pressure 68 mm[Hg] MD Sarah Nevarez Work Phone: [facility] 05-22-2023 08:55-0400 Heart rate 79 /min MD Sarah Neavrez Work Phone: [facility] 05-22-2023 08:55-0400 Respiratory rate 16 /min MD Sarah Nevarez Work Phone: [facility] 05-22-2023 08:55-0400 SaO2% (BldA) [Mass fraction] 98 % MD Sarah Nevarez Work Phone: [facility] 05-22-2023 08:55-0400 Systolic blood pressure 108 mm[Hg] MD Sarah Nevarez Work Phone: [facility] 01-21-2023 14:57-0500 Body temperature 97.8 [degF] MD Sarah Nevarez Work Phone: [facility] 01-21-2023 14:57-0500 Body weight 67.2 kg MD Sarah Nevarez Work Phone: [facility] 01-21-2023 14:57-0500 Diastolic blood pressure 79 mm[Hg] MD Sarah Nevarez Work Phone: [facility] 01-21-2023 14:57-0500 Heart rate 72 /min MD Sarah Nevarez Work Phone: [facility] 01-21-2023 14:57-0500 Respiratory rate 16 /min MD Sarah Nevarez Work Phone: [facility] 01-21-2023 14:57-0500 SaO2% (BldA) [Mass fraction] 98 % MD Sarah Nevarez Work Phone: [facility] 01-21-2023 14:57-0500 Systolic blood pressure 119 mm[Hg] MD Sarah Nevarez Work Phone: [facility] 07-08-2022 13:02-0400 Body height 172.72 cm MD Amanda Rosario Work Phone: [facility] 07-08-2022 13:02-0400 Body temperature 98 [degF] MD Amanda Rosario Work Phone: [facility] 07-08-2022 13:02-0400 Body weight 67.81 kg MD Amanda Rosario Work Phone: [facility] 07-08-2022 13:02-0400 Diastolic blood pressure 71 mm[Hg] MD Amanda Rosario Work Phone: [facility] 07-08-2022 13:02-0400 Heart rate 95 /min MD Amanda Rosario Work Phone: [facility] 07-08-2022 13:02-0400 Respiratory rate 20 /min MD Amanda Rosario Work Phone: [facility] 07-08-2022 13:02-0400 SaO2% (BldA) [Mass fraction] 97 % MD Amanda Rosario Work Phone: [facility] 07-08-2022 13:02-0400 Systolic blood pressure 115 mm[Hg] MD Amanda Rosario Work Phone: [facility] 05-30-2021 14:47-0400 Body height 173 cm rPice Girard Work Phone: MW-Ustklty-Tcfqm Main Work Phone: 05-30-2021 14:47-0400 Body mass index (BMI) [Ratio] 21.58 kg/m2 Price Girard Work Phone: FB-Oaodhss-Hlsax Main Work Phone: 05-30-2021 14:47-0400 Body surface area Derived from formula 1.77 m2 Price Girard Work Phone: PN-Owatscj-Ajueo Main Work Phone: 05-30-2021 14:47-0400 Body temperature 98.6 [degF] Price Girard Work Phone: AS-Vrjsjmv-Wyrkq Main Work Phone: 05-30-2021 14:47-0400 Body weight 64.6 kg Price Girard Work Phone: FG-Exaqllp-Eiaec Main Work Phone: 05-30-2021 14:47-0400 Diastolic blood pressure 77 mm[Hg] Price Girard Work Phone: UP-Wcgnbul-Yxvoz Main Work Phone: 05-30-2021 14:47-0400 Heart rate 103 /min Price Girard Work Phone: RS-Syrphjz-Ncpcq Main Work Phone: 05-30-2021 14:47-0400 Respiratory rate 16 /min Price Girard Work Phone: GY-Tlanobh-Abcgq Main Work Phone: 05-30-2021 14:47-0400 SaO2% (BldA) [Mass fraction] 99 % Price Girard Work Phone: EP-Xsufvao-Tdqab Main Work Phone: 05-30-2021 14:47-0400 Systolic blood pressure 131 mm[Hg] Price Girard Work Phone: PC-Xzykawp-Aojdd Main Work Phone: 05-30-2021 14:47-0400 0 1 Price Girard Work Phone: EY-Qguamcr-Iyxlt Main Work Phone: Comment on above: PainLorna 1997 00:00-0400 >na< Essence Blevins Dept. 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 Encounters Encounter Date Encounter Type Care Provider Facility Start: 11-28-2024 End: 11-28-2024 ambulatory DELVIS KT Not Available Start: 11-28-2024 End: 11-28-2024 flow sheet Delvis Kt DO Work Phone: [facility] Comment on above: Second trimester pre gnancy; 21 weeks gestation of Start: 11-28-2024 End: 11-28-2024 Bamboo flowsheet Delvis Kt DO Work Phone: [facility] Start: 11-28-2024 End: 11-28-2024 Bamboo flowsheet Delvis Kt DO Work Phone: [facility] Start: 10-24-2024 End: 10-24-2024 ambulatory DELVIS KT Not Available Start: 10-24-2024 End: 10-24-2024 Periodic preventive med est patient 18-39 yrs Delvis Kt DO Work Phone: [facility] Comment on above: Second trimester pre gnancy; 16 weeks gestation of ; Vaginal discharge; STD exposure; Screening, , for anatomic survey; Hematuria, unspecified type Start: 10-24-2024 End: 10-24-2024 Bamboo flowsheet Delvis Kt DO Work Phone: [facility] Start: 10-24-2024 End: 10-26-2024 Bamboo flowsheet Delvis Kt DO Work Phone: [facility] Start: 10-24-2024 End: 10-26-2024 External Result Encounter Delvis Kt DO Work Phone: [facility] External Department Unsolicited Start: 10-11-2024 End: 10-11-2024 Office outpatient visit 15 minutes Mike Wagner MD Work Phone: [facility] Comment on above: Acute non-recurrent pansinusitis (Primary Dx); Second trimester ; Malignant melanoma of right lower limb, including hip (CMS/HCC) Start: 10-11-2024 End: 10-11-2024 ambulatory MIKE WAGNER Not Available Start: 10-11-2024 End: 10-11-2024 Bamboo flowsheet Mike Wagner MD Work Phone: [facility] Start: 10-11-2024 End: 10-11-2024 Bamboo flowsheet Mike Wagner MD Work Phone: [facility] Start: 09-26-2024 End: 09-26-2024 ambulatory DELVIS KT Not Available Start: 09-26-2024 End: 09-26-2024 flow sheet Delvis Kt DO Work Phone: [facility] Comment on above: First trimester preg mei; 12 weeks gestation of Start: 09-26-2024 End: 09-26-2024 Bamboo flowsheet Delvis Kt DO Work Phone: [facility] Start: 09-26-2024 End: 09-26-2024 Bamboo flowsheet Delvis Kt DO Work Phone: [facility] Start: 09-19-2024 End: 09-19-2024 Clinisync Result Encounter Generic External Data Provider [facility] External Department Unsolicited Start: 09-19-2024 End: 09-19-2024 Clinisync Result Encounter Generic External Data Provider [facility] External Department Unsolicited Start: 08-26-2024 End: 08-26-2024 Office outpatient visit 5 minutes [facility] Kt Nurse [facility] Comment on above: GA: 8w1d Start: 08-26-2024 End: 08-26-2024 ambulatory DELVIS KT Not Available Start: 08-23-2024 End: 08-23-2024 Bamboo flowsheet Delvis Kt DO Work Phone: [facility] Start: 08-23-2024 End: 08-23-2024 Bamboo flowsheet Delvis Kt DO Work Phone: [facility] Start: 08-04-2024 End: 08-04-2024 Clinisync Result Encounter Generic External Data Provider [facility] External Department Unsolicited Start: 08-04-2024 End: 08-04-2024 Clinisync Result Encounter Generic External Data Provider [facility] External Department Unsolicited Start: 08-02-2024 End: 08-02-2024 Clinisync Result Encounter Generic External Data Provider [facility] External Department Unsolicited Start: 08-02-2024 End: 08-02-2024 Clinisync Result Encounter Generic External Data Provider [facility] External Department Unsolicited Start: 02-22-2024 End: 02-22-2024 ambulatory MELISSA AICHHOLZ Not Available Start: 02-10-2024 End: 02-10-2024 ambulatory DELVIS KT Not Available Start: 08-19-2023 End: 08-19-2023 ambulatory Amanda Abraham Facility:[facility] Start: 05-22-2023 End: 05-22-2023 ambulatory MD Sarah Nevarez Work Phone: [facility] Work Phone: Start: 05-22-2023 End: 05-22-2023 Registered Recurring MD Sarah Nevarez Work Phone: [facility] Work Phone: Start: 04-07-2023 End: 04-08-2023 [...] 01-21-2023 ambulatory MD Sarah Nevarez Work Phone: [facility] Work Phone: Start: 01-21-2023 End: 01-21-2023 Registered Recurring MD Sarah Nevarez [facility] Work Phone: Start: 01-13-2023 End: 01-13-[address] DELVIS MERAZ . Facility:[facility] Start: 01-01-2023 Encounter for genera l adult medical examination without abnormal findings DR MIKE WAGNER [facility] Start: 12-31-2022 End: 01-01-[address] MIKE WAGNER Facility:[facility] Start: 12-31-2022 End: 01-01-2023 Encounter for general adult medical examination without abnormal findings DR MIKE WAGNER Facility:[facility] Start: 07-08-2022 End: 07-08-2022 Registered Recurring MD Amanda Rosario Work Phone: [facility] Start: 06-16-2022 End: 06-16-[address] DELVIS MERAZ . Facility:[facility] Start: 04-09-[address] AMANDA ROSARIO Facility :[facility] Start: 06-22-2021 Chart Update Price Girard Work [facility] Work Phone: Start: 06-18-2021 Essence Blevins Dept. of D ermatology Start: 05-30-2021 Postop follow up vis it related to original px Price Girard Work Phone: SM-Ysxdakm-Zlwkc Main Work Phone: Procedures Date Procedure Procedure Detail Performing Clinician Start: 11-28-2024 Urnls dip stick/tabl et rgnt non-auto w/o micrscp Delvis Kt DO Work Phone: Start: 10-24-2024 URINARY TRACT INFECT ION (HTRX) Delvis Kt DO Work Phone: Start: 10-24-2024 Urnls dip stick/tabl et rgnt non-auto w/o micrscp Delvis Kt DO Work Phone: Start: 09-26-2024 Urnls dip stick/tabl et rgnt non-auto w/o micrscp Delvis Kt DO Work Phone: Start: 09-19-2024 MLR HEMOGLOBIN A1C Gene david External Data Provider Start: 08-26-2024 End: 08-26-2024 Urnls dip stick/tablet rgnt non-auto w/o micrscp Delvis Kt DO Work Phone: Start: 08-04-2024 [facility] PREG QUANT HCG Core y Kt DO Work Phone: Start: 08-02-2024 [facility] PREG QUANT HCG Core y Kt DO Work Phone: Start: 01-09-2023 Ultrasonography of [...] scan of lower limb veins MD Amanda Rsoario Work Phone: Start: 12-31-2021 Ultrasonography of limb MD Amanda Rosario Work Phone: Start: 07-01-2021 Positron emission to mography with computed tomography MD Amanda Rosario Work Phone: Start: 06-18-2021 Essence david Plan of Treatment Date Care Activity Detail Author Start: 12-27-2024 End: 12-27-2024 Patient encounter procedure 12/27/2024 8:40 AM EST Routine [facility] [address] [place] [id number] Delvis Meraz, DO [address] [place] [address] [facility] Start: 11-28-2024 End: 11-28-2024 Patient encounter procedure 11/28/2024 2:10 PM EST Routine [facility] [address] [place] [id number] Delvis Meraz, DO [address] [place] [address] [facility] Start: 10-24-2024 End: 10-24-2024 Patient encounter procedure 10/24/2024 2:10 PM EST Routine [facility] [address] [facility] [place] [phone] Delvis Meraz, [address] [address] [facility] Start: 10-24-2024 End: 10-24-2025 Alpha fetoprotein, maternal Alpha fetoprotein, maternal Lab Routine Second trimester 16 weeks gestation of Expected: 10/24/2024 (Approximate), Expires: 10/24/2025 [facility] Healthcare Comment on above: Expected: 10/24/2024 (Approximate), Expires: 10/24/2025 Start: 10-24-2024 End: 10-24-2025 US for US OB ANATOMY SINGLE W US OB CERVICAL LENGTH Imaging Routine Screening, , for anatomic survey Expected: 10/24/2024 (Approximate), Expires: 10/24/2025 [facility] Healthcare Comment on above: Expected: 10/24/2024 (Approximate), Expires: 10/24/2025 Start: 09-26-2024 End: 09-26-2024 Patient encounter procedure 09/26/2024 2:20 PM EST Routine [facility] [address] [place] [address] Delvis Meraz, [address] [address] [facility] Start: 08-26-2024 End: 08-26-2025 ABO/Rh ABO/Rh Lab Routine Missed menses , unspecified gestational age Expected: 08/26/2024 (Approximate), Expires: 08/26/2025 [facility] Comment on above: Expected: 08/26/2024 (Approximate), Expires: 08/26/2025 Start: 08-26-2024 End: 08-26-2025 Blood type and Indirect antibody screen panel - Blood Type and screen Lab Routine Missed menses , unspecified gestational age Expected: 08/26/2024 (Approximate), Expires: 08/26/2025 [facility] Work Phone: Comment on above: Expected: 08/26/2024 (Approximate), Expires: 08/26/2025 Start: 08-26-2024 End: 08-26-2025 Drugs of abuse panel - Urine by Screen method Rapid drug screen, urine Lab Routine , unspecified gestational age Encounter for supervision of normal first in first trimester Expected: 08/26/2024 (Approximate), Expires: 08/26/2025 [facility] Healthcare Comment on above: Expected: 08/26/2024 (Approximate), Expires: 08/26/2025 Start: 08-26-2024 End: 08-26-2025 US Pelvis transvaginal US OB transvaginal Imaging Routine Missed menses Expected: 08/26/2024 (Approximate), Expires: 08/26/2025 [facility] Healthcare Comment on above: Expected: 08/26/2024 (Approximate), Expires: 08/26/2025 Start: 08-26-2024 End: 08-26-2024 ambulatory 08/26/2024 10:00 AM EDT Initial [facility] [address] [place] [phone] [facility] Start: 08-26-2024 End: 08-26-2024 Professional / ancillary services management 08/26/2024 9:30 AM EDT Ancillary Procedure [facility] [address] [facility] [phone] [facility] Start: 08-23-2024 End: 08-23-2024 Patient encounter procedure 08/23/2024 10:50 AM EDT Routine [facility] [address] [facility] [address] Delvis Meraz, [address] [place] [address] Arrived [facility] Comment on above: Arrived Start: 07-24-2024 Influenza vaccination Influenz a Vaccine (#1) [facility] Healthcare Start: 05-23-2022 [facility] Start: 04-25-2022 [facility] Start: 03-28-2022 [facility] Start: 02-28-2022 [facility] Start: 01-31-2022 [facility] Start: 01-28-2022 [facility] Start: 12-31-2021 [facility] Start: 12-24-2021 [facility] Start: 11-29-2021 [facility] Start: 11-01-2021 [facility] Start: 10-28-2021 [facility] Start: 10-02-2021 End: 10-03-2021 [facility] Start: 09-06-2021 [facility] Start: 09-03-2021 [facility] Start: 08-08-2021 [facility] Start: 07-11-2021 [facility] Adrenocorticotropic hormone measurement [facility] Bacteria identified in Urine by Culture Urine culture Microbiology Routine Missed menses Ordered: 08/26/2024 [facility] Comment on above: Ordered: 08/26/2024 Bacteria identified in Urine by Culture Urine culture Microbiology Routine Hematuria, unspecified type Ordered: 10/24/2024 [facility] Comment on above: Ordered: 10/24/2024 CBC W Auto Different ial panel - Blood CBC and differential Lab Routine Missed menses , unspecified gestational age Ordered: 08/26/2024 [facility] Comment on above: Ordered: 08/26/2024 CHLAMYDIA TRACHOMATI S (GENITO/STI) CHLAMYDIA TRACHOMATIS (GENITO/STI) Lab Routine STD exposure Ordered: 10/24/2024 [facility] Comment on above: Ordered: 10/24/2024 Comprehensive metabo lic 1999 panel - Serum or Plasma [facility] Work Phone: Comprehensive metabo lic 1999 panel - Serum or Plasma [facility] Comprehensive metabo lic 1999 panel - Serum or Plasma [facility] Comprehensive metabo lic 1999 panel - Serum or Plasma [facility] CT Abdomen and Pelvi s W contrast IV [facility] Work Phone: CT Abdomen and Pelvi s W contrast IV [facility] CT Abdomen and Pelvi s W contrast IV [facility] CT Chest W contrast IV [facility] Work Phone: CT Chest W contrast IV [facility] CT Chest W contrast IV [facility] [place] Ferritin [Mass/volum e] in Serum or Plasma [facility] Work Phone: Hemoglobin A1c/Hemoglobin.total in Blood Hemoglobin A1c Lab Routine Missed menses , unspecified gestational age Ordered: 08/26/2024 [facility] Comment on above: Ordered: 08/26/2024 Hepatitis B virus blevins rface Ag [Presence] in Serum or Plasma by Immunoassay Hepatitis B surface antigen Lab Routine Missed menses , unspecified gestational age Ordered: 08/26/2024 [facility] Comment on above: Ordered: 08/26/2024 Hepatitis C virus Ab [Presence] in Serum or Plasma by Immunoassay Hepatitis C antibody Lab Routine Missed menses , unspecified gestational age Ordered: 08/26/2024 [facility] Comment on above: Ordered: 08/26/2024 HIV-1/HIV-2 antigen/ antibody combination immunoassay HIV-1 and HIV-2 antibodies Lab Routine Missed menses , unspecified gestational age Ordered: 08/26/2024 [facility] Comment on above: Ordered: 08/26/2024 Lactate dehydrogenas e [Enzymatic activity/volume] in Unspecified specimen [facility] Work Phone: Neisseria gonorrhoea e DNA [Presence] in Unspecified specimen by PARMINDER with probe detection Neisseria gonorrhea DNA probe, direct Lab Routine STD exposure Ordered: 10/24/2024 [facility] Comment on above: Ordered: 10/24/2024 Reagin Ab [Presence] in Serum by RPR RPR Lab Routine Missed menses , unspecified gestational age Ordered: 08/26/2024 [facility] Comment on above: Ordered: 08/26/2024 Rubella antibody, IgG Rubella an tibody, IgG Lab Routine Missed menses , unspecified gestational age Ordered: 08/26/2024 [facility] Comment on above: Ordered: 08/26/2024 SURESWAB(R) ADVANCED VAGINITIS PLUS, TMA SURESWAB(R) ADVANCED VAGINITIS PLUS, TMA Pathology and Cytology Routine Vaginal discharge Ordered: 10/24/2024 [facility] Work Phone: Comment on above: Ordered: 10/24/2024 Thyrotropin [Units/v olume] in Serum or Plasma [facility] Thyroxine (T4) free [Mass/volume] in Serum or Plasma [facility] Triiodothyronine (T3 ) Free [Mass/volume] in Serum or Plasma [facility] Work Phone: [facility] Immunizations Immunization Date Immunization Notes Care Provider [facility] 07-09-2018 influenza virus vaccine, unspecified formulation Generic Provider [facility] 1995 pneumococcal conjuga te vaccine, 7 valent 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 Payers Date Payer Category Payer Unknown [id number] 2022 Blue Cross Blue Shield [id number] [id number] 2022 Unknown 2021 Self-pay [id number] 2021 Unknown [id number] 2021 Unknown [id number] 2019 Unknown [id number] 1995 Unknown [id number] 2.16.84 0.1.697396.3.579.2.593 1997 Unknown [id number] 2.16.84 0.1.827061.3.579.2.593 1997 Unknown [id number] 2.16.84 0.1.979025.3.579.2.593 1997 Unknown [id number] 2.16.84 0.1.130356.3.579.2.593 1997 Unknown [id number] 2.16.84 0.1.040234.3.579.2.593 1997 Unknown [id number] 2.16.84 0.1.421281.3.579.2.593 1997 Unknown [id number] 2.16.84 0.1.402708.3.579.2.593 1997 Unknown [id number] 2.16.84 0.1.534440.3.579.2.593 1997 Unknown [id number] 2.16.84 0.1.618353.3.579.2.593 1997 Unknown [id number] 2.16.84 0.1.869543.3.579.2.593 1997 Unknown [id number] 2.16.84 0.1.488044.3.579.2.1258 1997 Unknown [id number] 2.16.84 0.1.229135.3.579.2.1258 1997 Unknown [id number] 2.16.84 0.1.834149.3.579.2.1258 1997 Unknown [id number] 2.16.84 0.1.352110.3.579.2.1258 1997 Unknown [id number] 2.16.84 0.1.380712.3.579.2.1258 1997 Unknown [id number] 2.16.84 0.1.310271.3.579.2.1258 1997 Unknown [id number] 2.16.84 0.1.145224.3.579.2.1258 1959 Unknown [id number] 1959 Unknown [id number] Unknown [id number] 2.16.8 40.1.244927.3.579.2.531 Social History Date Type Detail Facility Start: 06-18-2021 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 Start: 1995 Sex Assigned At Female [facility] Start: 07-08-2022 End: 04-10-2023 Tobacco smoking status NHIS Never smoked tobacco (finding) [facility] Start: 04-10-2023 Tobacco use and exposure Smokeless tobacco non-user [facility] Start: 02-22-2024 End: 10-11-2024 Alcoholic beverage intake [facility] ([facility] Start: 02-22-2024 End: 10-11-2024 History of Social function [facility] Start: 02-22-2024 End: 10-11-2024 Social connection and isolation panel [facility] [...] Desired Activity /State Clinical Notes 05-14-2021 to 11-28-2024 Kirsten Joy LPN - 11/28/2024 2:10 PM Ruben Joy LPN - 10/24/2024 2:10 PM Sarah Wagner MD - 10/11/2024 3:09 PM Sarah Wagner MD - 10/11/2024 3:07 PM EST Note Date & Type Note Facility 11-28-2024 History of Presen t illness Narrative Reason for Appointment: Patient ID: Ailyn Resendiz is a 29 y.o. female who presents for Routine Visit Patient presents today for Return OB appointment. MEDICATIONS Current Outpatient Medications Medication Instructions magnesium oxide (MAG-OX) 400 mg, Daily MV-Min-Fe Fum-FA-DHA ( 1 PO) Take by mouth ALLERGIES No Known Allergies PROBLEMS Active Ambulatory Problems Diagnosis Date Noted Anemia 04/14/2023 Cervical polyp 04/14/2023 Gynecological disease 04/14/2023 Malignant melanoma of right lower limb, including hip (CMS/HCC) 04/14/2023 Other specified noninflammatory disorders of vagina 04/14/2023 Solitary pulmonary nodule 04/14/2023 Second trimester 10/11/2024 Acute non-recurrent pansinusitis 10/11/2024 Resolved Ambulatory Problems Diagnosis Date Noted Menstrual disorder 04/14/2023 Missed menses 04/14/2023 LPRD (laryngopharyngeal reflux disease) 02/22/2024 Non-recurrent acute suppurative otitis media of right ear without spontaneous rupture of tympanic membrane 02/22/2024 Acute tonsillitis due to other specified organisms 02/22/2024 Past Medical History: Diagnosis Date BMI 21.0-21.9, adult Encounter for annual routine gynecological examination without abnormal findings Irregular menses Malignant melanoma (CMS/HCC) Pelvic pressure in female Screening for STD (sexually transmitted disease) HISTORY PAST MEDICAL HISTORY SOCIAL HISTORY Past Medical History: Diagnosis Date Anemia BMI 21.0-21.9, adult Cervical polyp Encounter for annual routine gynecological examination without abnormal findings Irregular menses Malignant melanoma (CMS/HCC) right lower extremity Pelvic pressure in female Screening for STD (sexually transmitted disease) Solitary pulmonary nodule Social History Tobacco Use Smoking status: Never Smokeless tobacco: Never Vaping Use Vaping status: Never Used Substance Use Topics Alcohol use: Not Currently Drug use: Never FAMILY HISTORY Family History Problem Relation Name Age of Onset Hypertension Father Celio Heart disease Father Celio Cancer Maternal Grandmother Ale Diabetes Maternal Grandfather Jorge Heart disease Maternal Grandfather Jorge Hypertension Maternal Grandfather Jorge Heart disease Paternal Grandfather Serge Diabetes Paternal Grandfather Serge SURGICAL HISTORY Past Surgical History: Procedure Laterality Date EXCISION 04/2021 wide excision right posterior leg-Melanoma REVIEW OF SYSTEMS Review of Systems: Review of Systems All other systems reviewed and are negative. OBJECTIVE Objective: Physical Exam Constitutional: Appearance: Normal appearance. She is well-developed. Cardiovascular: Rate and Rhythm: Normal rate and regular rhythm. Pulmonary: Effort: Pulmonary effort is normal. Breath sounds: Normal breath sounds. Abdominal: General: Bowel sounds are normal. There is no distension. Palpations: Abdomen is soft. Tenderness: There is no abdominal tenderness. There is no guarding or rebound. Musculoskeletal: General: No swelling. Normal range of motion. Right lower leg: No edema. Left lower leg: No edema. Neurological: Mental Status: She is alert and oriented to person, place, and time. Skin: General: Skin is warm and dry. Psychiatric: Mood and Affect: Mood normal. Behavior: Behavior normal. Vitals and nursing note reviewed. Exam conducted with a hotel services sales representative present. Vitals: Estimated body mass index is 22.74 kg/m as calculated from the following: Height as of 24: 5' 9 . Weight as of this encounter: 154 lb. BP: 118/70 No LMP recorded. Patient is . ASSESSMENT & PLAN ICD-10-CM 1. Second trimester Z34.92 POCT urinalysis dipstick manually resulted 2. 21 weeks gestation of Z3A.21 Patient presents today for a routine obstetrics appointment. Patient is currently 21w4d with a Estimated Date of Delivery: 04/06/25. Patient given order for follow-up anatomy scan. Reassurance given to patient in regards to results. Patient to RTC in 4 weeks for routine OB care. Documented by Kirsten Joy LPN on behalf of: Delvis Meraz DO documented in this encounter [facility] 10-24-2024 History of Presen t illness Narrative Reason for Appointment: Patient ID: Ailyn Resendiz is a 29 y.o. female who presents for Routine Visit and STI Screening Patient presents today for Return OB appointment. MEDICATIONS Current Outpatient Medications Medication Instructions magnesium oxide (MAG-OX) 400 mg, Daily MV-Min-Fe Fum-FA-DHA ( 1 PO) Take by mouth ALLERGIES No Known Allergies PROBLEMS Active Ambulatory Problems Diagnosis Date Noted Anemia 04/14/2023 Cervical polyp 04/14/2023 Gynecological disease 04/14/2023 Malignant melanoma of right lower limb, including hip (CMS/HCC) 04/14/2023 Other specified noninflammatory disorders of vagina 04/14/2023 Solitary pulmonary nodule 04/14/2023 Second trimester 10/11/2024 Acute non-recurrent pansinusitis 10/11/2024 Resolved Ambulatory Problems Diagnosis Date Noted Menstrual disorder 04/14/2023 Missed menses 04/14/2023 LPRD (laryngopharyngeal reflux disease) 02/22/2024 Non-recurrent acute suppurative otitis media of right ear without spontaneous rupture of tympanic membrane 02/22/2024 Acute tonsillitis due to other specified organisms 02/22/2024 Past Medical History: Diagnosis Date BMI 21.0-21.9, adult Encounter for annual routine gynecological examination without abnormal findings Irregular menses Malignant melanoma (CMS/HCC) Pelvic pressure in female Screening for STD (sexually transmitted disease) HISTORY PAST MEDICAL HISTORY SOCIAL HISTORY Past Medical History: Diagnosis Date Anemia BMI 21.0-21.9, adult Cervical polyp Encounter for annual routine gynecological examination without abnormal findings Irregular menses Malignant melanoma (CMS/HCC) right lower extremity Pelvic pressure in female Screening for STD (sexually transmitted disease) Solitary pulmonary nodule Social History Tobacco Use Smoking status: Never Smokeless tobacco: Never Vaping Use Vaping status: Never Used Substance Use Topics Alcohol use: Not Currently Drug use: Never FAMILY HISTORY Family History Problem Relation Name Age of Onset Hypertension Father Celio Heart disease Father Celio Cancer Maternal Grandmother Ale Diabetes Maternal Grandfather Jorge Heart disease Maternal Grandfather Jorge Hypertension Maternal Grandfather Jorge Heart disease Paternal Grandfather Bill Diabetes Paternal Grandfather Bill SURGICAL HISTORY Past Surgical History: Procedure Laterality Date EXCISION 04/2021 wide excision right posterior leg-Melanoma REVIEW OF SYSTEMS Review of Systems: Review of Systems All other systems reviewed and are negative. OBJECTIVE Objective: Physical Exam Constitutional: Appearance: Normal appearance. She is well-developed. Genitourinary: Vulva normal. Cardiovascular: Rate and Rhythm: Normal rate and regular rhythm. Pulmonary: Effort: Pulmonary effort is normal. Breath sounds: Normal breath sounds. Abdominal: General: Bowel sounds are normal. There is no distension. Palpations: Abdomen is soft. Tenderness: There is no abdominal tenderness. There is no guarding or rebound. Musculoskeletal: General: No swelling. Normal range of motion. Right lower leg: No edema. Left lower leg: No edema. Neurological: Mental Status: She is alert and oriented to person, place, and time. Skin: General: Skin is warm and dry. Psychiatric: Mood and Affect: Mood normal. Behavior: Behavior normal. Vitals and nursing note reviewed. Exam conducted with a hotel services sales representative present. Vitals: Estimated body mass index is 22 kg/m as calculated from the following: Height as of 10/11/24: 5' 9 . Weight as of this encounter: 149 lb. BP: 114/68 No LMP recorded. Patient is . ASSESSMENT & PLAN ICD-10-CM 1. Second trimester Z34.92 POCT urinalysis dipstick manually resulted Alpha fetoprotein, maternal Alpha fetoprotein, maternal 2. 16 weeks gestation of Z3A.16 POCT urinalysis dipstick manually resulted Alpha fetoprotein, maternal Alpha fetoprotein, maternal 3. Vaginal discharge N89.8 SURESWAB(R) ADVANCED VAGINITIS PLUS, TMA 4. STD exposure Z20.2 CHLAMYDIA TRACHOMATIS (GENITO/STI) Neisseria gonorrhea DNA probe, direct 5. Screening, , for anatomic survey Z36.89 US OB ANATOMY SINGLE W US OB CERVICAL LENGTH Return OB/Annual Exam: Patient presents today for routine obstetrics appointment with STD cultures to be obtained. Patient is currently 16w4d . Patient states she is doing well. Vaginal cultures were obtained without difficulty and patient was given orders for anatomy scan and msAFP to be obtained. Patient also had blood in urine and urine will be sent out for culture. Orders Placed This Encounter Procedures US OB ANATOMY SINGLE W US OB CERVICAL LENGTH CHLAMYDIA TRACHOMATIS (GENITO/STI) Neisseria gonorrhea DNA probe, direct Alpha fetoprotein, maternal POCT urinalysis dipstick manually resulted Follow Up: Patient is to schedule annual exam for next year and return to office in 4 weeks for OB appointment. Documented by Kirsten Joy LPN on behalf of: Delvis Meraz DO documented in this encounter [facility] 10-11-2024 History of Presen t illness Narrative Associated Problem(s): Malignant melanoma of right lower limb, including hip (CMS/HCC) Follow with specialists Associated Problem(s): Acute non-recurrent pansinusitis Take antibiotics BID for 10 days. Use sudafed or other decongestants as needed. Use Robitussin or Robitussin-DM for cough. Can use afrin for congestion but no longer than 3 days. Can use Mucinex to bring up phlegm. Use Motrin or Tylenol as needed for fever, aches, or pains. Increase fluid intake and rest. Should improve over next 5-7 days and if no better or worse call for re-evaluation. Images from the original note were not included. Subjective Patient ID: Ailyn Resendiz is a 29 y.o. female who presents for Follow-up (Cold/ congestion ). C/o cough, congestion, and rhinorrhea x 6 days. Afebrile. Severe fatigue and no energy. Mild cough dry and nonproductive. Denies chest tightness or SOB. [place] and sinus pressure in forehead and cheeks along with postnasal drip. Ears plugged and popping. Sore throat and pain to swallow. Mild nausea. Son recently sick. Currently 14 weeks and not using OTC medication. No improvement in symptoms since onset. Review of Systems Respiratory: Negative for cough, shortness of breath and wheezing. Cardiovascular: Negative for chest pain and palpitations. Gastrointestinal: Negative for abdominal pain, diarrhea, nausea and vomiting. Genitourinary: Negative for dysuria. Objective Physical Exam Constitutional: General: She is not in acute distress. Appearance: Normal appearance. HENT: Head: Normocephalic. Right Ear: Tympanic membrane normal. Left Ear: Tympanic membrane normal. Eyes: Extraocular Movements: Extraocular movements intact. Pupils: Pupils are equal, round, and reactive to light. Cardiovascular: Rate and Rhythm: Normal rate and regular rhythm. Heart sounds: No murmur heard. No friction rub. No gallop. Pulmonary: Effort: Pulmonary effort is normal. Breath sounds: Normal breath sounds. No wheezing, rhonchi or rales. Abdominal: General: Bowel sounds are normal. There is no distension. Palpations: Abdomen is soft. Tenderness: There is no abdominal tenderness. There is no guarding or rebound. Musculoskeletal: Cervical back: Neck supple. Right lower leg: No edema. Left lower leg: No edema. Neurological: Mental Status: She is alert. Assessment/Plan Problem List Items Addressed This Visit Second trimester Acute non-recurrent pansinusitis - Primary Take antibiotics BID for 10 days. Use sudafed or other decongestants as needed. Use Robitussin or Robitussin-DM for cough. Can use afrin for congestion but no longer than 3 days. Can use Mucinex to bring up phlegm. Use Motrin or Tylenol as needed for fever, aches, or pains. Increase fluid intake and rest. Should improve over next 5-7 days and if no better or worse call for re-evaluation. Relevant Medications cefdinir (Omnicef) 300 MG capsule documented in this encounter [facility] 09-26-2024 History of Presen t illness Narrative Reason for Appointment: Patient ID: Ailyn Resendiz is a 29 y.o. female who presents for Routine Visit Patient presents today for Return OB appointment. MEDICATIONS Current Outpatient Medications Medication Instructions magnesium oxide (MAG-OX) 400 mg, Daily MV-Min-Fe Fum-FA-DHA ( 1 PO) Oral ALLERGIES No Known Allergies PROBLEMS Active Ambulatory Problems Diagnosis Date Noted Anemia 04/14/2023 Cervical polyp 04/14/2023 Gynecological disease 04/14/2023 Malignant melanoma of right lower limb, including hip (CMS/HCC) 04/14/2023 Menstrual disorder 04/14/2023 Missed menses 04/14/2023 [...] female Screening for STD (sexually transmitted disease) HISTORY PAST MEDICAL HISTORY SOCIAL HISTORY Past Medical History: Diagnosis Date Anemia BMI 21.0-21.9, adult Cervical polyp Encounter for annual routine gynecological examination without abnormal findings Irregular menses Malignant melanoma (CMS/HCC) right lower extremity Pelvic pressure in female Screening for STD (sexually transmitted disease) Solitary pulmonary nodule Social History Tobacco Use Smoking status: Never Smokeless tobacco: Never Vaping Use Vaping status: Never Used Substance Use Topics Alcohol use: Not Currently Drug use: Never FAMILY HISTORY Family History Problem Relation Name Age of Onset Hypertension Father Celio Heart disease Father Celio Cancer Maternal Grandmother Ale Diabetes Maternal Grandfather Jorge Heart disease Maternal Grandfather Jorge Hypertension Maternal Grandfather Jorge Heart disease Paternal Grandfather Serge Diabetes Paternal Grandfather Serge SURGICAL HISTORY Past Surgical History: Procedure Laterality Date EXCISION 04/2021 wide excision right posterior leg-Melanoma REVIEW OF SYSTEMS Review of Systems: Review of Systems All other systems reviewed and are negative. OBJECTIVE Objective: Physical Exam Constitutional: Appearance: Normal appearance. She is well-developed. Cardiovascular: Rate and Rhythm: Normal rate and regular rhythm. Pulmonary: Effort: Pulmonary effort is normal. Breath sounds: Normal breath sounds. Abdominal: General: Bowel sounds are normal. There is no distension. Palpations: Abdomen is soft. Tenderness: There is no abdominal tenderness. There is no guarding or rebound. Musculoskeletal: General: No swelling. Normal range of motion. Right lower leg: No edema. Left lower leg: No edema. Neurological: Mental Status: She is alert and oriented to person, place, and time. Skin: General: Skin is warm and dry. Psychiatric: Mood and Affect: Mood normal. Behavior: Behavior normal. Vitals and nursing note reviewed. Exam conducted with a hotel services sales representative present. Vitals: Estimated body mass index is 21.34 kg/m as calculated from the following: Height as of 02/22/24: 5' 9 . Weight as of this encounter: 144 lb 8 oz. BP: 116/68 No LMP recorded. Patient is . ASSESSMENT & PLAN ICD-10-CM 1. First trimester Z34.91 2. 12 weeks gestation of Z3A.12 POCT urinalysis dipstick manually resulted Return OB: New OB: Patient presents today for 1st time obstetrics appointment with provider. Patient is currently 12w4d . Patients history has been reviewed in great detail including any potential risks. Patient stated she currently has no complaints. Expectations throughout regarding labs, ultrasounds, and appointments have been discussed with the patient in detail. It was reiterated that the patient is to drink 6-8 glasses of water a day, eat 6 small meals a day, do not consume raw or undercooked meat, and stay away from [facility]. Patient has been consulted regarding any further do's and don'ts of . Patient voiced understanding and all questions and concerns were answered. Orders Placed This Encounter Procedures POCT urinalysis dipstick manually resulted Follow Up: Patient is to return in 4 weeks for routine OB appointment. Orders Placed This Encounter Procedures POCT urinalysis dipstick manually resulted Documented by Kirsten Joy LPN on behalf of: Amanda Gonzalez PA-C documented in this encounter [facility] 08-26-2024 History of Presen t illness Narrative [...] melanoma of right lower limb, including hip (CMS/HCC) 04/14/2023 Menstrual disorder 04/14/2023 Missed menses 04/14/2023 [...] or undercooked meat, and stay away from [facility]. Patient has also been advised to not [...] by: Jasmyne Segura documented in this encounter [facility] 05-23-2023 Progress note Note Date/Time May 22, 2023 9:03[facility] [place] [address] Hem/Onc Follow Up Note - OP Signed Patient: Ailyn Resendiz MR#: [id number] : 1995 Acct:[id number] Age/Sex: 27 / F Type: REG RCR [...] of restaging CT CAP by phone with [employer] MACHINE in October--no evidence of recurrence. Saw dermatology [...] dyspepsia. We will coordinate parenteral iron at [facility] per her request. Normal thyroid, cortisol,and CMP [...] trauma. She was seen by dermatology at [facility] in [place] and underwent a biopsy of the right [...] 3. Venofer for iron deficiency anemia at [facility] 03/2022 ROS Details: All systems reviewed & [...] Mild Nivolumab infusion reaction in February 2022. [facility] - History Attestation statement: The following [...] DAILY PRN Anxiety 06/18/21 [History Confirmed 05/22/23] OCR-mjay-IR-omega 3-fat com #1 27 mg-1 mg-300 mg [...] Creatinine Clear 154.92, Sodium 136, Potassium 4.2, [id number], Carbon Dioxide 26.1, Anion Gap 10.1, BUN [...] % (Auto) 79.8, Lymph % (Auto) 12.8, Osborne % (Auto) 6.4, Eos % (Auto) 0.6, Baso % (Auto) 0.4, Nucleat RBC Rel Count 0.2, Neut # (Auto) 8.2 H, Lymph # (Auto) 1.3, Osborne # (Auto) 0.7, Eos # (Auto) 0.1, [...] 4% with ferritin 7. Coordinated Venofer infusionsat [facility] (300mg IV x 3 doses) 03/2022 with followup CBC, serum iron profile, and ferritin in one month. Consider GI evaluation for iron deficiency. 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 She does not plan to have children anytime soon, but discussed with her hot punch press operator the best iron supplementation to be on [...] for coordination of care (as documented) and asmd-qt-qigy counseling of patient and/or family. Dictated By: Amanda Rosario MD DD/ 09 Signed By: <Electronically signed by MD Amanda Rosario> 05/23/23 [address] [facility] Work Phone: 1(275) 850-284303-01-2023 Progress note Author Amanda Rosario [facility] January 21, 2023 8:51pm Note Date/Time January 21, 2023 3:01 pm [facility] [place] [address] Hem/Onc Follow Up Note - OP Signed Patient: Ailyn Resendiz MR#: [id number] : 1995 Acct:[id number] Age/Sex: 27 / F Type: REG RCR Copies to: MD Mike Ewing MD~ Subjective Date/Time of Service: Date of Service: 01/21/2023 Time of Service: 15:00 Chief Complaint: Patient is here today for a 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 Saw dermatology [...] dyspepsia. We will coordinate parenteral iron at [facility] per her request. Normal thyroid, cortisol,and CMP [...] trauma. She was seen by dermatology at [facility] in [place] and underwent a biopsy of the right [...] 3. Venofer for iron deficiency anemia at [facility] 03/2022 ROS Details: All systems reviewed & [...] DAILY PRN Anxiety 06/18/21 [History Confirmed 01/21/23] LGR-ftxi-RH-omega 3-fat com #1 27 mg-1 mg-300 mg [...] by: Paresh Gilmore Jr., D.ODavid01/09/2023 12:04 PM Assessment and Plan - TNM [...] 4% with ferritin 7. Coordinated Venofer infusionsat [facility] (300mg IV x 3 doses) 03/2022 with followup CBC, serum iron profile, and ferritin in one month. Consider GI evaluation for iron deficiency. 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 She does not plan to have children anytime soon, but discussed with her hot punch press operator the best iron supplementation to be on [...] for coordination of care (as documented) and pqpg-rz-jtcp counseling of patient and/or family. Dictated By: Amanda Rosario MD DD/ 1500 Signed By: <Electronically signed by MD Amanda Rosario> 01/21/232050 [facility] Work Phone: 1([phone]) 280-643608-17-2022 Progress note Author Ale Malone [facility] July 09, 2022 1:35pm Note Date/Time July 08, 2022 1: 31pm [facility] [place] [address] Hem/Onc Follow Up Note - OP Signed with Addenda Patient: Ailyn Resendiz MR#: [id number] : 1995 Acct:[id number] Age/Sex: 27 / F Type: REG RCR [...] dyspepsia. We will coordinate parenteral iron at [facility] per her request. Normal thyroid, cortisol,and CMP [...] trauma. She was seen by dermatology at [facility] in [place] and underwent a biopsy of the right [...] % (Auto) 61.2, Lymph % (Auto) 26.6, Osborne % (Auto) 9.7, Eos % (Auto) 1.2, Baso % (Auto) 1.3, Neut # (Auto) 3.4, Lymph # (Auto) 1.5, Osborne # (Auto) 0.5, Eos# (Auto) 0.1, Baso [...] ferritin 7. Will have Venofer infusions at [facility] (300mg IV x 3 doses) with followup CBC, serum iron profile,and ferritin in one month. Consider GI evaluation for iron deficiency. 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 She does not plan to have children anytime soon, but discussed with her hot punch press operator the best iron supplementation to be on [...] for coordination of care (as documented) and whtm-rq-ohbm counseling of patient and/or family. Dictated By: Ale Malone APRN DD/ 1331 Signed By: <Electronically signed by KIKI Malone> 07/09/22 0958 [facility] Work Phone: [phone] 490-361005-12-2022 Progress note Author Amanda Rosario [facility] April 03, 2022 8:56pm Note Date/Time April 02, 2022 8:30p m [facility] [place] [address] Hem/Onc Follow Up Note - OP Signed Patient: Ailyn Resendiz MR#: [id number] : 1995 Acct:[id number] Age/Sex: 26 / F Type: REG RCR [...] dyspepsia. We will coordinate parenteral iron at [facility] per her request. Normal thyroid, cortisol,and CMP [...] trauma. She was seen by dermatology at [facility] in [place] and underwent a biopsy of the right [...] Creatinine Clear 115.14, Sodium 136, Potassium 4.1, Rjpqqlmf864, Carbon Dioxide 24.5, BUN 9, Creatinine 0.76, [...] % (Auto) 46.7, Lymph % (Auto) 30.6, Osborne % (Auto) 20.8, Eos % (Auto) 0.9, Baso % (Auto) 1.0, Neut # (Auto) 1.6 L, Lymph # (Auto) 1.1, Osborne # (Auto) 0.7, Eos # (Auto) 0.0, [...] ferritin 7. Will have Venofer infusions at [facility] (300mg IV x 3 doses) with followup [...] for coordination of care (as documented) and aoyt-vt-jhlf counseling of patient and/or family. Dictated By: Amanda Rosario MD DD/ 28 Signed By: <Electronically signed by MD Amanda Rosario> 04/03/222055 [facility] Work Phone: 1([phone] 165-829402-23-2022 Progress note Author Amanda Rosario [facility] January 15, 2022 9:15pm Note Date/Time January 15, 2022 11:55am [facility] [place] [id number] Hem/Onc Follow Up Note - OP Signed Patient: Ailyn Kang MR#: [id number] : 1995 Acct:[id number] Age/Sex: 26 / F Type: REG RCR [...] trauma. She was seen by dermatology at [facility] in [place] and underwent a biopsy of the right [...] for coordination of care (as documented) and lbfl-wy-hyjl counseling of patient and/or family. Dictated By: Amanda Rosario MD DD/ 1155 Signed By: <Electronically signed by MD Amanda Rosario> 01/15/22 2115 [facility] Work Phone: 1(410) [phone] Progress note Author Denia Alvares [facility] October 03, 2021 10:47am Note Date/Time October 03, 2021 10:34am [facility] [place] [address] Hem/Onc Follow Up Note - OP Signed Patient: Ailyn Kang MR#: [id number] : 1995 Acct:[id number] Age/Sex: 26 / F Type: REG RCR [...] trauma. She was seen by dermatology at [facility] in [place] and underwent a biopsy of the right [...] environmental allergies and food allergies. PMF - Medical History Medical History: Medical History [...] Creatinine Clear 112.19, Sodium 139, Potassium 4.1, Wiqypwdk473, Carbon Dioxide 26.4, BUN 9, Creatinine 0.78, [...] % (Auto) 66.7, Lymph % (Auto) 23.1, Osborne % (Auto) 8.3, Eos % (Auto) 1.0, Baso % (Auto) 0.9, Neut # (Auto) 5.0, Lymph # (Auto) 1.7, Osborne # (Auto) 0.6, Eos# (Auto) 0.1, Baso [...] for coordination of care (as documented) and edsb-pa-xoqt counseling of patient and/or family. Dictated By: Denia Alvares APRN DD/ 1025 Signed By: <Electronically signed by KIKI Alvares> 10/03/21 1047 [facility] Work Phone: [phone]) [phone] Progress note Author Amanda Rosario [facility] July 19, 2021 12:54pm Note Date/Time July 18, 2021 2: 10pm [facility] [place] [address] Hem/Onc Follow Up Note - OP Signed Patient: Ailyn Kang MR#: [id number] : 1995 Acct:[id number] Age/Sex: 26 / F Type: REG RCR [...] trauma. She was seen by dermatology at [facility] in [place] and underwent a biopsy of the right [...] Negative for environmental allergies and food allergies. 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 Dictated By: Amanda Rosario MD DD/ 1409 Signed By: <Electronically signed by MD Amanda Rosario> 07/19/21 5630 [facility] Work Phone: [phone]) 777-206108-03-2021 Consult note Author Amanda Rosario [facility] June 24, 2021 10:09pm Note Date/Time June 24, 2021 2:1 8pm [facility] [place] [address] Hem/Onc Consult Note - OP Signed Patient: Ailyn Kang MR#: [id number] : 1995 Acct:[id number] Age/Sex: 26 / F Type: REG RCR [...] trauma. 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 Dictated By: Amanda Rosario MD DD/ 1416 Signed By: <Electronically signed by MD Amanda Rosario> 06/24/21 8393 [facility] Work Phone: [phone] NotePROCEDURE DETAILS Preoperative Diagnosis: Malignant melanoma of right posterior calf, C43.71 Postoperative Diagnosis: Malignant melanoma of right posterior calf, C43.71 Surgeon: Sarah Nevarez Resident/Fellow/Other Short Goods Drier: Yao Jaquze Procedure: WIDE EXCISION MELANOMA RIGHT POSTERIOR LEG, [...] procedure. Note Recipients: Price Girard MD - [phone] [] Cassy Bettina NALDO Nava - [phone] [] Attestation: Note Completion: Attending AttestationI performed the procedure without a resident Electronic Signatures: Sarah Nevarez) (Signed 17-May-2021 18:18) Authored: Post-Operative Note, Chart Review, Note Completion Last Updated: 17-May-2021 18:18 by Sarah Nevarez)[facility] 05-17-2021 History of Present illness Mxbqkpyxf89-hpgi-gjh woman who underwent wide excision right posterior calf melanoma with Preemption flap reconstruction as well as right inguinal and iliac sentinel lymph node biopsy on 05/17/2021. Pathology report has not yet resulted. She is recovering well.[facility] Work Phone: [phone]) [phone] History of Present illness Narrative 25-year-old woman who underwent wide excision right posterior calf melanoma with Preemption flap reconstruction as well as right inguinal and iliac sentinel lymph node biopsy on 05/17/2021. Pathology report has not yet resulted. She is recovering well.[facility] Work Phone: [phone]) [phone] NoteHistory & Physical Reviewed: /Lactating: Are You [...] Completion Last Updated: 17-May-2021 09:36 by Sarah eNvarez) References: 1. Data Referenced From Patient Profile - Preop v2 17-May-2021 09:27[facility]06-22-2021 NoteAccession #: [id number] Pathologist: ANUJA OLIVO MD Date of Procedure: 05/14/2021 Date Received: 05/14/2021 Submitting Physician: SARAH NEVAREZ MD Location: [facility] Copy To/Referring/Attending: ROLY EDGE DO FINAL DIAGNOSIS 2 SLIDES, [facility] #[id number] (BX: 04/23/2021) SKIN, RT POST LEG, SHAVE [...] MD. CANCER SUMMARY REPORT A. 2 SLIDES, [facility] #[id number] (BX: 04/23/2021): SPECIMEN Procedure: Biopsy, shave Specimen [...] report. Primary Tumor (pT): pT3b ADDITIONAL TESTING METAL HANGING HELPER BLOCKS: Tumor Block: CSPL slide [id number] Electronically Signed Out By ANUJA OLIVO MD/BRR Microscopic Description: Microscopic examination performed. Clinical History: SHAVE/ BCC VS MM VS PG 1.9 X 1.9CM Specimens Submitted As: A: 2 SLIDES, [facility] #[id number] (BX: 04/23/2021) Gross Description: Received for consultation from [facility] are two slides labeled [id number] (BX: 04/23/2021) along with the corresponding pathology report. Slide/Block Description 2 SLIDES, [id number]. Keep Slides: N Slides Returned: N Personal [facility]:Performed By: #### D #### DermatopathologyEvaluation noteN/ADept. 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 Evaluation note* Diagnosis Onset Date Resolution Status Iron deficiency anemia acute Chiari malformation type I c hronic Edema of right lower extremity chronic Encounter for antineoplastic immunotherapy chronic Malignant melanoma of right lower leg chronic [facility] Work Phone: Evaluation note* Diagnosis Onset Date Resolution Status Chiari malformation type I c hronic Edema of right lower extremity chronic Encounter for antineoplastic immunotherapy chronic Iron deficiency anemia chron ic Malignant melanoma of right lower leg chronic [facility] Work Phone: Evaluation noteNo assessment information available [facility] Work Phone: Evaluation note* Diagnosis Missed menses , unspecified gestational age Encounter for supervision of normal first in first trimester History of miscarriage Personal history of other genital system and obstetric disorders [facility] Diagnosis Acute tonsillitis due to other specified organisms- Primary Non-recurrent acute suppurative otitis media of right ear without spontaneous rupture of tympanic membrane First trimester state, incidental 12 weeks gestation of documented [facility] this [facility]* Diagnosis Acute non-recurrent pansinusitis- Primary Second trimester state, incidental Malignant melanoma of right lower limb, including hip (CMS/HCC) Second trimester state, incidental 16 weeks gestation of Vaginal discharge Leukorrhea, not specified as infective STD exposure Screening, , for anatomic survey Encounter for anatomic survey Hematuria, unspecified type documented in this encounter [facility]* Diagnosis Acute non-recurrent pansinusitis- Primary Second trimester state, incidental Malignant melanoma of right lower limb, including hip (CMS/HCC) documented in this encounter [facility]* Diagnosis Acute non-recurrent pansinusitis- Primary Second trimester state, incidental Malignant melanoma of right lower limb, including hip (CMS/HCC) Second trimester state, incidental 21 weeks gestation of [facility] Dis[facility] instructionsAmbulatory Orders* RISE Order Time Frame: 1 Day, Location: Determined By Patient * Survivourship Follow Up Time Frame: 3 Months, Location: Determined By Patient [facility] Work Phone: Progress note Author Ale Malone [facility] July 09, 2022 1:35pm Note Date/Time July 08, 2022 1: 31pm [facility] [place] [address] Hem/Onc Follow Up Note - OP Signed with Addenda Patient: Ailyn Resendiz MR#: [id number] : 1995 Acct:[id number] Age/Sex: 27 / F Type: REG RCR [...] well controlled with stool softeners as needed. Otherwisertudie has no new complaints. Inguinal US was [...] dyspepsia. We will coordinate parenteral iron at [facility] per her request. Normal thyroid, cortisol,and CMP [...] trauma. She was seen by dermatology at [facility] in [place] and underwent a biopsy of the right [...] % (Auto) 61.2, Lymph % (Auto) 26.6, Osborne % (Auto) 9.7, Eos % (Auto) 1.2, Baso % (Auto) 1.3, Neut # (Auto) 3.4, Lymph # (Auto) 1.5, Osborne # (Auto) 0.5, Eos# (Auto) 0.1, Baso [...] ferritin 7. Will have Venofer infusions at [facility] (300mg IV x 3 doses) with followup CBC, serum iron profile,and ferritin in one month. Consider GI evaluation for iron deficiency. 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 She does not plan to have children anytime soon, but discussed with her hot punch press operator the best iron supplementation to be on [...] for coordination of care (as documented) and ovja-xq-ifnk counseling of patient and/or family. Dictated By: Ale Malone APRN DD/ 1331 Signed By: <Electronically signed by KIKI Malone> 07/09/22 5701 [facility] Work Phone: Progress note Author Amanda Rosario [facility] January 21, 2023 8:51pm Note Date/Time January 21, 2023 3:01 pm [facility] [place] [facility] [place] [id number] Hem/Onc Follow Up Note - OP Signed Patient: Ailyn Resendiz MR#: [id number] : 1995 Acct:[id number] Age/Sex: 27 / F Type: REG RCR Copies to: MD Mike Ewing MD~ Subjective Date/Time of Service: Date of Service: 01/21/2023 Time of Service: 15:00 Chief Complaint: Patient is here today for a 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 Saw dermatology [...] dyspepsia. We will coordinate parenteral iron at [facility] per her request. Normal thyroid, cortisol,and CMP [...] trauma. She was seen by dermatology at [facility] in [place] and underwent a biopsy of the right [...] 3. Venofer for iron deficiency anemia at [facility] 03/2022 ROS Details: All systems reviewed & [...] Mild Nivolumab infusion reaction in February 2022. [facility] - History Attestation statement: The following [...] DAILY PRN Anxiety 06/18/21 [History Confirmed 01/21/23] ZYA-uxle-BZ-omega 3-fat com #1 27 mg-1 mg-300 mg [...] 4% with ferritin 7. Coordinated Venofer infusionsat [facility] (300mg IV x 3 doses) 03/2022 with followup CBC, serum iron profile, and ferritin in one month. Consider GI evaluation for iron deficiency. 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 She does not plan to have children anytime soon, but discussed with her hot punch press operator the best iron supplementation to be on [...] for coordination of care (as documented) and vhpl-dj-cwxn counseling of patient and/or family. Dictated By: Amanda Rosario MD DD/ 1500 Signed By: <Electronically signed by MD Amanda Rosario> 01/21/232050 [facility] Work Phone: Reason for referral (narrative)* Name [...] CREATED AUTHOR AUTHOR'S ORGANIZ ATION 06/18/2021 [facility] DATE CREATED AUTHOR AUTHOR'S ORGANIZ ATION 08/01/2021 [facility] DATE CREATED AUTHOR AUTHOR'S ORGANIZ ATION 01/18/2022 [facility] DATE CREATED AUTHOR AUTHOR'S ORGANIZ ATION 04/08/2023 [facility] DATE CREATED AUTHOR AUTHOR'S ORGANIZ ATION 09/25/2024 [facility] DATE CREATED AUTHOR AUTHOR'S ORGANIZ ATION 12/04/2024 [facility] EPIC Care Teams (unrecognized sec tion and content) Team Status: Active Member Role Status Dates Mike Wagner MD Primary Care Provider Active Team Status: Active Member Role Status Dates Amanda Rosario MD Attending Provider Active Sarah Nevarez MD Referring Provider Active Mike Wagner MD Primary Care Provider Active [place] Relationship Specialty Start Date End Date Mike Wagner MD [address] [place] [id number] PCP - General Family Medicine 02/09/24 Shaikh Melendrez MD [address] [place] [address] PCP - [facility] 08/23/23 Deburrer Relationship Specialty Start Date End Date Mike Wagner MD [address] [place] [address] PCP - General Family Medicine 02/09/24 Shaikh Melendrez MD [address] [place] [address] PCP - [employer] 08/23/23 Deburrer Relationship Specialty Start Date End Date Mike Wagner MD [address] [place] [address] PCP - General Family Medicine 02/09/24 Shaikh Melendrez MD [address] [place] [address] PCP - [employer] 08/23/23 Deburrer Relationship Specialty Start Date End Date Mike Wagner MD [address] [place] [address] PCP - General Family Medicine 02/09/24 Melissa Zhou NP [address] [place] [address] PCP - [employer] 08/23/24 Deburrer Relationship Specialty Start Date End Date Mike Wagner MD [address] [place] [address] PCP - General Family Medicine 02/09/24 Melissa Zhou NP [address] [place] [address] PCP - [employer] 08/23/24 Deburrer Relationship Specialty Start Date End Date Mike Wagner MD [address] [place] [address] PCP - General Family Medicine 02/09/24 Melissa Zhou NP [address] [place] [address] PCP - [employer] 08/23/24 Deburrer Relationship Specialty Start Date End Date Mike Wagner MD [address] [place] [address] PCP - General Family Medicine 02/09/24 Melissa Zhou NP [address] [place] [address] PCP - [employer] 08/23/24 Deburrer Relationship Specialty Start Date End Date Mike Wagner MD [address] [place] [address] PCP - General Family Medicine 02/09/24 Melissa Zhou NP [address] [place] [address] PCP - [employer] 08/23/24 Deburrer Relationship Specialty Start Date End Date Mike Wagner MD [address] [place] [address] PCP - General Family Medicine 02/09/24 Shaikh Melendrez MD [address] [place] [address] PCP - [employer] 08/23/23 Deburrer Relationship Specialty Start Date End Date Mike Wagner MD [address] [place] [address] PCP - General Family Medicine 02/09/24 Melissa Zhou NP [address] [place] [address] PCP - [employer] 08/23/24 Goals (unrecognized section and content) Goals may be documented in a n alternate sectionGoals may be documented in an alternate sectionGoals may be documented in an alternate sectionGoals may be documented in an alternate sectionGoals may be documented in an alternate section Reason for Visit (unrecogniz ed section and content) Reason Comments Initial Visit Reason Comments Routine Visit Reason Comments Routine Visit STI Screening Reason Comments Follow-up Cold/ congestion FOR RECORDS PERTAINING TO PATIENTS WHO ARE [...] BE BASED ON THE PRIMARY CLINICAL RECORDS. [facility]. provides no warranty or guarantee of the accuracy or completeness of information in this document.
== END 2024-12-15 11:02 | disposition home or self-care (01) ==
LOC: US 11:01
PROVIDERS: PCP Family Medicine; Visit Provider Obstetrics & Gynecology
DX: Z36.2 Encounter for other antenatal screening follow-up (principal)
CPT/HCPCS: 76815

== ENCOUNTER 2024-12-24 08:57 | Emergency (ER) | payer BC, SELFPAY ==
[2024-12-24 09:03] VITALS: BP 136/79; PULSE 106; O2SAT 99; BMI 23.7
[2024-12-24 09:17] LABS: Clarity Urine CLEAR (CLEAR); Color Urine DK. ORANGE (YELLOW)
[2024-12-24 09:18] LABS: Bilirubin Urine COLOR INTERFERENCE (NEGATIVE); Blood Urine COLOR INTERFERENCE (NEGATIVE); Glucose Urine UA COLOR INTERFERENCE mg/dL (NEGATIVE); Ketones Urine COLOR INTERFERENCE mg/dL (NEGATIVE); Leukocyte Esterase Urine COLOR INTERFERENCE (NEGATIVE); Nitrite Urine COLOR INTERFERENCE (NEGATIVE); Protein Urine COLOR INTERFERENCE mg/dL (NEG/TRACE); Urine Microscopic Indicated YES; Urobilinogen Urine COLOR INTERFERENCE EU/dL (0.2-1.0); pH Urine COLOR INTERFERENCE (5.0-9.0)
[2024-12-24 09:29] LABS: Bacteria Urine TRACE #/HPF (NONE SEEN); Crystals Seen? None Seen #/HPF (None Seen); Mucus Urine NONE SEEN (NONE SEEN); Squamous Epithelial Cell Urine FEW #/LPF (NONE/RARE); WBC Urine 0-2 #/HPF (NONE SEEN)
[2024-12-24 09:30] LABS: Cast Seen? NONE SEEN #/LPF (NONE SEEN); Urine Culture Indicated NO
[2024-12-24 09:37] VITALS: TEMP 36.5
--- NOTE | 2024-12-24 09:45 | ED_ITS ---
HPI - Female Genitourinary General Chief complaint: Urogenital-Female Stated complaint: RIGHT FLANK PAIN, POSSIBLE UTI, 25 WEEKS Time Seen by Provider: 12/24/24 09:11 Source: patient Mode of arrival: walk-in History of Present Illness HPI Narrative: The patient is 24 weeks ,she is 3 para 2, is coming to the ER with a right-sided flank discomfort and pain that she noticed yesterday, it was consistent since then, she did call her OB doctor and he sent the prescription that she is not sure what was it to the pharmacy, She is worried today about urine infection, mentioned that she had a history of pyelonephritis before with no kidney stone at any time was diagnosed The patient denies any fever or chills she also denies any nausea that is significant considering that she is The patient has been trying Tylenol and Azo's but she still have the same fixed pain Related Data Allergies Allergy/AdvReac Type Severity Reaction Status Date / Time No Known Drug Allergies Allergy Verified 09/02/23 16:18 Review of Systems ROS Status of ROS 10 or more systems reviewed and unremark able except as noted in history and below PFSH PFSH Social History Little interest or pleasure in doing things: not at all Feeling down, depressed, or hopeless: not at all Exam Narrative Exam Narrative: Nurses notes and vital signs reviewed and patient is not hypoxic. General: Well-appearing and in no apparent distress. Skin: Warm, dry, no pallor noted. No rash. Head: Normocephalic, atraumatic. Neck: Supple, non-tender. Eye: Pupils are equal, round and EOMI. No scleral icterus. Ears, Nose, Mouth, and Throat: TM are clear, no nasal mucosal hypertrophy. Oral mucosa is moist, no posterior oropharynx erythema, uvula is mid-line Cardiovascular: Regular Rate and Rhythm without murmur, gallop or rub. Respiratory: No accessory muscle use or respiratory distress. Lungs are clear to auscultation, no wheezing, rales or rhonchi Chest Wall: no tenderness Back: No midline thoracic or lumbar vertebral tenderness. Right CVA tenderness Musculoskeletal: normal ROM, no calf or popliteal tenderness, no lower extremity edema/swelling GI: Abdomen is soft, non-distended. Normal bowel sounds. No masses appreciated. No tenderness to palpation. No rebound, guarding, or rigidity noted. Neurological: A&O x4. No cranial nerve dysfunction observed. No truncal ataxia. Moves all extremities. Sensation intact. Psychiatric: Cooperative and interactive. Normal mood and affect. Constitutional Vital Signs, click to edit/add: Last Vital Signs Temp 97.7 F 12/24/24 09:37 Pulse 106 H 12/24/24 09:03 Resp 16 12/24/24 09:03 BP 136/79 12/24/24 09:03 Pulse Ox 99 12/24/24 09:03 O2 Del Method Room Air 12/24/24 09:03 Course Vital Signs Vital signs: Vital Signs Pulse Rate 106 H 12/24/24 09:03 Respiratory Rate 16 12/24/24 09:03 Blood Pressure 136/79 12/24/24 09:03 Pulse Oximetry 99 12/24/24 09:03 Oxygen Delivery Method Room Air 12/24/24 09:03 Temperature 97.7 F 12/24/24 09:37 Pulse Rate 106 H 12/24/24 09:03 Respiratory Rate 16 12/24/24 09:03 Blood Pressure 136/79 12/24/24 09:03 Pulse Oximetry 99 12/24/24 09:03 Oxygen Delivery Method Room Air 12/24/24 09:03 MDM - Female Genitourinary MDM Narrative Medical decision making narrative: The patient urinalysis was not interfered by the fact that she is taking a dose and it not showing multiple variant including the nitrite and leukocyte esterase. There was 1-2 RBCs as well I had an extensive discussion with the patient explaining the fact that her flank pain could be secondary to muscular as well as could be secondary to other reason including kidney stone. Although having a UTI and the fact that she is also could be causing the right flank pain with the pressure of the uterus and the bladder The patient does not have any alarming right now symptoms of any fever or chills and the pain is continuous and not crampy-like and not radiating I did explain to the patient right now that we will start giving her the Macrobid here in the ER and she will continue taking the prescription that her OB doctor sent which was Macrobid as well. 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 The patient agrees with the following Diagnosis and Treatment plan and the patient will be discharged home. Lab Data Labs: Lab Results 12/24/24 Range/Units 09:10 Urine Color Dk. orange (YELLOW) Urine Clarity Clear (CLEAR) Urine pH Color interference A (5.0-9.0) Ur Specific [place] 1.010 (1.005-1.025) Urine Protein Color interference A (NEG/TRACE) mg/dL Urine Glucose (UA) Color interference A (NEGATIVE) mg/dL Urine Ketones Color interference A (NEGATIVE) mg/dL Urine Occult Blood Color interference A (NEGATIVE) Urine Nitrite Color interference A (NEGATIVE) Urine Bilirubin Color interference A (NEGATIVE) Urine Urobilinogen Color interference A (0.2-1.0) EU/dL Ur Leukocyte Esterase Color interference A (NEGATIVE) Urine RBC 2-5 A (0-2) #/HPF Urine WBC 0-2 A (NONE SEEN) #/HPF Ur Squamous Epith Cells Few A (NONE/RARE) #/LPF Urine Crystals None seen (None Seen) #/HPF Urine Bacteria Trace A (NONE SEEN) #/HPF Urine Casts None seen (NONE SEEN) #/LPF Urine Mucus None seen (NONE SEEN) Ur Culture Indicated? No Discharge Plan Discharge Chief Complaint: Urogenital-Female Clinical Impression: Flank pain, UTI (urinary tract infection) Patient Disposition: Home, Self-Care Time of Disposition Decision: 09:51 Condition: Good Print Language: [place] Instructions: Flank Pain (ED), Urinary Tract Infection in (ED) Referrals: Mike Putnam MD [Primary Care Provider] - 1 week
--- OUTSIDE RECORDS SUMMARY | 2024-12-27 07:27 | XMS_ITS | CCD ---
Author Organization [facility] Care Team Providers Care Deodorizer Operator Name Role Phone Price Girard Unavailable Unavailable Unavailable Essence Blevins Unavailable Unavailable MD Amanda Rosario Attending Provider MD Sarah Nevarez Referring Provider MD Mike Wagner Primary Care Provider MD Amanda Rosario Attending Provider MD Sarah Nevarez Referring Provider [phone] MD Mike Wagner Primary Care Provider [phone] KT ., DR ARROYO Admitting Unavailable KT ., DR ARROYO Consulting Unavailable NADERER, DR MIKE Bolaños Primary Care Unavailable KT ., DR ARROYO Attending Unavailable KT ., DR ARROYO Consulting Unavailable TK ., DR ARROYO Attending Unavailable NADERER, DR [...] Provider Mike Wagner MD Primary Care Provider Aneesh NOE, Flores Unavailable Amanda Rosario Attending Unavailable Amanda Rosario Admitting Unavailable Sarah Nevarez Referring Unavailable Mike Wagner Primary Care Unavailable Abelardo SENIOR PHYSICAL THERAPIST, Melissa Unavailable DELVIS MERAZ Attending Unavailable MELISSA ZHOU Attending Unavailable DELVIS MERAZ Attending Unavailable MIKE WAGNER Attending Unavailable EDLVIS MERAZ Attending Unavailable DELVIS MERAZ Attending Unavailable [...] Take 1 tablet by mouth Daily Active Vlo-Myfq-Ou-[place] 3-Fat Com #1 (Pre-Jeanette Multivitamins/Min erals) 27-1-300 mg Capsule (4 sources) Start: 01-21-2023 Cev-Dubk-Nj-[place] 3-Fat Com #1 (Pre-Jeanette Multivitamins/Mine rals) 27-1-300 mg Capsule Active CAP PO January 21, 2023 1:00am Start: 01-21-2023 Nhw-Ufip-Mi-Om ega 3-Fat Com #1 (Pre-Jeanette Multivitamins/Minerals) 27-1-300 [...] UA Negative Negative - 4(70) +++ mg/dL [facility] Blood, UA Positive Negative - 50 Naveed/mcL [facility] Comment on above: trace Clarity, UA Clear [facility] Color, UA Yellow [facility] Glucose, UA Negative Negative - 2000(110) ++++ mg/dL [facility] Interpretation and review of laboratory results Abnormal [facility] Ketones, UA Negative Negative - 160(16) ++++ mg/dL [facility] Leukocytes, UA Negative Negative - 500+++ José Luis/mcL [facility] Nitrite, UA Negative Negative - Positive [facility] pH, UA 6.5 5 - 9 [facility] Protein, UA Negative Negative - 2000(20) ++++ mg/dL [facility] Spec Grav, UA 1.025 1 - 1.03 [facility] Urobilinogen, UA 0.2 0.2 - 12 mg/dL [facility] No Panel Informationon 10-26 STAPHYLOCOCCUS EPIDERMIDIS, HAEMOLYTICUS, LUGDUNENSIS, SAPROPHYTICUS (URINA 0 [facility] STAPHYLOCOCCUS EPIDERMIDIS, HAEMOLYTICUS, LUGDUNENSIS, SAPROPHYTICUS (URINA Not detected [facility] URINARY TRACT INFECTION (HTR X)on 10-26-2024 ACINETOBACTER BAUMANII 0 NO [facility] ACINETOBACTER BAUMANII Not detected [facility] STEVEN ALBICANS, PARAPSILOSIS, TROPICALIS 0 [facility] STEVEN ALBICANS, PARAPSILOSIS, TROPICALIS Not detected [facility] STEVEN GLABRATA 0 [facility] STEVEN GLABRATA Not detected [facility] STEVEN KRUSEI 0 [facility] STEVEN KRUSEI Not detected [facility] CITROBACTER FREUNDII 0 [facility] CITROBACTER FREUNDII Not detected NO [facility] ENTEROBACTER AEROGENES, CLOACAE 0 [facility] ENTEROBACTER [...] detected [facility] PSEUDOMONAS AERUGINOSA 0 NO [facility] PSEUDOMONAS AERUGINOSA Not detected [facility] [...] UA Negative Negative - 4(70) +++ mg/dL [facility] Blood, UA Positive Negative - 50 Naveed/mcL [facility] Clarity, UA Clear [facility] Color, UA Yellow [facility] Glucose, UA Negative Negative - 1999(110) ++++ mg/dL [facility] Interpretation and review of laboratory results Normal [facility] Ketones, UA Negative Negative - 160(16) ++++ mg/dL [facility] Leukocytes, UA Negative Negative - 500+++ José Luis/mcL [facility] Nitrite, UA Negative Negative - Positive [facility] pH, UA 5.5 5 - 9 [facility] Protein, UA Negative Negative - 1999(20) ++++ mg/dL [facility] Spec Grav, UA 1.02 1 - 1.03 [facility] Urobilinogen, UA 1.0 0.2 - 12 mg/dL [facility] Urinalysis macro (dipstick) panel (U)on 09-26-2024 Bilirubin, UA Negative Negative - 4(70) +++ mg/dL [facility] Blood, UA Negative Negative - 50 Naveed/mcL [facility] Clarity, UA Clear [facility] Color, UA Yellow [facility] Glucose, UA Negative Negative - 1999(110) ++++ mg/dL [facility] Interpretation and review of laboratory results Normal [facility] Ketones, UA Negative Negative - 160(16) ++++ mg/dL [facility] Leukocytes, UA Negative Negative - 500+++ José Luis/mcL [facility] Nitrite, UA Negative Negative - Positive [facility] pH, UA 5.5 5 - 9 [facility] Protein, UA Negative Negative - 1999(20) ++++ mg/dL [facility] Spec Grav, UA 1.02 1 - 1.03 [facility] Urobilinogen, UA 0.2 0.2 - 12 mg/dL [facility] MLR HEMOGLOBIN A1Con 024 Glucose [Mass/Vol] 91 mg/dL [facility] HbA1c (Bld) [Mass fraction] 4.8 % 4.5 - 6.2 % [facility] Comment on above: ADA RECOMMENDED LIMI T 4.0 - 6.0 ADA THERAPEUTIC TARGET < 7.0 ACTION SUGGESTED > 7.0 [facility] HCG ( test) Ql (U)o n 08-26-2024 Interpretation and review of laboratory results Abnormal [facility] Preg Test, Ur Positive [facility] Urinalysis macro (dipstick) panel (U)on 08-26-2024 Bilirubin, UA Negative Negative - 4(70) +++ mg/dL [facility] Blood, UA Negative Negative - 50 Naveed/mcL [facility] Clarity, UA Clear [facility] Color, UA Yellow [facility] Glucose, UA Negative Negative - 1999(110) ++++ mg/dL [facility] Interpretation and review of laboratory results Normal [facility] Ketones, UA Negative Negative - 160(16) ++++ mg/dL [facility] Leukocytes, UA Negative Negative - 500+++ José Luis/mcL [facility] Nitrite, UA Negative Negative - Positive [facility] pH, UA 7.0 5 - 9 [facility] Protein, UA Negative Negative - 1999(20) ++++ mg/dL [facility] Spec Grav, UA 1.025 1 - 1.03 [facility] Urobilinogen, UA 0.2 0.2 - 12 mg/dL [facility] PREG QUANT HCGon 024 HCG QUANTITATIVE 1850 mIU/mL [facility] Comment on above: 5-50 0.2-1 WEEK 50-500 1-2 WEEKS 100-5,000 2-3 WEEKS 500-10,000 3-4 WEEKS 1,000-50,000 4-5 WEEKS 10,000-100,000 5-6 WEEKS 15,000-200,000 6-8 WEEKS 10,000-100,000 2-[facility] 024 HCG QUANTITATIVE 824 mIU/mL [facility] Comment on above: 5-50 0.2-1 WEEK 50-500 1-2 WEEKS 100-5,000 2-3 WEEKS 500-10,000 3-4 WEEKS 1,000-50,000 4-5 WEEKS 10,000-100,000 5-6 WEEKS 15,000-200,000 6-8 WEEKS 10,000-100,000 2-[facility] Alanine aminotransferase [En zymatic activity/volume] in Serum or PlasmaOrdered By: Amanda Rosario on 05-20-2023 ALT [Catalytic activity/Vol] 9 U/L 7-52 [facility] Albumin [Mass/volume] in Ser um or Plasma by Bromocresol green (BCG) dye binding methoOrdered By: Amanda Rosario on 05-20-2023 Albumin BCG dye [Mass/Vol] 3.8 g/dL 3.5-5.7 [facility] Alkaline phosphatase [Enzyma tic activity/volume] in Serum or PlasmaOrdered By: Amanda Rosario on 05-20-2023 ALP [Catalytic activity/Vol] 52 U/L 34-104 [facility] Aspartate aminotransferase [ Enzymatic activity/volume] in Serum or PlasmaOrdered By: Amanda Rosario on 05-20-2023 AST [Catalytic activity/Vol] 14 U/L 13-39 [facility] Basophils Auto (Bld) [#/Vol] Ordered By: Amanda Rosario on 05-20-2023 Basophils (Bld) [#/Vol] 0.0 10*3/uL 0.0-0.2 [facility] Basophils/100 WBC Auto (Bld) Ordered By: Amanda Rosario on 05-20-2023 Basophils/100 WBC (Bld) 0.4 % . [facility] Bilirubin.total [Mass/volume ] in Serum or PlasmaOrdered By: Amanda Rosario on 05-20-2023 Bilirubin [Mass/Vol] 0.5 mg/dL 0.3-1.0 [facility] Calcium [Mass/volume] in Ser um or PlasmaOrdered By: Amanda Rosario on 05-20-2023 Calcium [Mass/Vol] 8.5 mg/dL 8.6-10.3 [facility] Carbon dioxide, total [Moles /volume] in Serum or PlasmaOrdered By: Amanda Rosario on 05-20-2023 CO2 [Moles/Vol] 26.1 mmol/L 21.0-31.0 [facility] Chloride [Moles/volume] in [place] or PlasmaOrdered By: Amanda Rosario on 05-20-2023 Chloride [Moles/Vol] 104 mmol/L 98-107 [facility] Creatinine [Mass/volume] in Serum or PlasmaOrdered By: Amanda Rosario on 05-20-2023 Creatinine [Mass/Vol] 0.56 mg/dL 0.60-1.20 [facility] Eosinophils Auto (Bld) [#/Vo l]Ordered By: Amanda Rosario on 05-20-2023 Eosinophils (Bld) [#/Vol] 0.1 10*3/uL 0.0-0.45 [facility] Eosinophils/100 WBC Auto (Bl d)Ordered By: Amanda Rosario on 05-20-2023 Eosinophils/100 WBC (Bld) 0.6 % . [facility] Erythrocyte distribution wid th Auto (RBC) [Ratio]Ordered By: Amanda Rosario on 05-20-2023 Erythrocyte distribution width (RBC) [Ratio] 13.1 % 11.9-15.3 [facility] Globulin Calc (S) [Mass/Vol] Ordered By: Amanda Rosario on 05-20-2023 Globulin (S) [Mass/Vol] 2.3 g/dL [facility] Glucose [Mass/volume] in Ser um or PlasmaOrdered By: Amanda Rosario on 05-20-2023 Glucose [Mass/Vol] 72 mg/dL 70-100 [facility] Comment on above: ADA recommended refe rence rangeRandom Glucose Reference Range is dependent on time and content of last meal. Glucose of more than 200 mg/dL in a nonstressed, ambulatory subject supports the diagnosis of Diabetes Mellitus. Hematocrit Auto (Bld) [Volum e fraction]Ordered By: Amanda Rosario on 05-20-2023 Hematocrit (Bld) [Volume fraction] 34.7 % 34.0-46.4 [facility] Hemoglobin [Mass/volume] in BloodOrdered By: Amanda Rosario on 05-20-2023 Hemoglobin (Bld) [Mass/Vol] 12.0 g/dL 11.8-15.4 [facility] Leukocytes [#/volume] correc yanira for nucleated erythrocytes in Blood by Automated counOrdered By: Amanda Rosario on 05-20-2023 WBC corrected for nucl RBC Auto (Bld) [#/Vol] 10.3 10*3/uL 3.8-11.6 [facility] Lymphocytes Auto (Bld) [#/Vo l]Ordered By: Amanda Rosario on 05-20-2023 Lymphocytes (Bld) [#/Vol] 1.3 10*3/uL 1.00-4.8 [facility] Lymphocytes/100 WBC Auto (Bl d)Ordered By: Amanda Rosario on 05-20-2023 Lymphocytes/100 WBC (Bld) 12.8 % . [facility] MCH Auto (RBC) [Entitic mass ]Ordered By: Amanda Rosario on 05-20-2023 MCH (RBC) [Entitic mass] 31.5 pg 24.7-34.3 [facility] MCHC Auto (RBC) [Mass/Vol]Or dered By: Amanda Rosario on 05-20-2023 MCHC (RBC) [Mass/Vol] 34.6 g/dL 32.0-35.0 [facility] MCV Auto (RBC) [Entitic vol] Ordered By: Amanda Rosario on 05-20-2023 MCV (RBC) [Entitic vol] 91.1 fL 80-100 [facility] Monocytes Auto (Bld) [#/Vol] Ordered By: Amanda Rosario on 05-20-2023 Monocytes (Bld) [#/Vol] 0.7 10*3/uL 0.0-0.8 [facility] Monocytes/100 WBC Auto (Bld) Ordered By: Amanda Rosario on 05-20-2023 Monocytes/100 WBC (Bld) 6.4 % . [facility] Neutrophils Auto (Bld) [#/Vo l]Ordered By: Amanda Rosario on 05-20-2023 Neutrophils (Bld) [#/Vol] 8.2 10*3/uL 1.8-7.7 [facility] Neutrophils/100 WBC Auto (Bl d)Ordered By: Amanda Rosario on 05-20-2023 Neutrophils/100 WBC (Bld) 79.8 % . [facility] No Panel InformationOrdered By: Amanda Rosario on 05-20-2023 Adrenocorticotropic Hormone 10.8 pg/mL 7.2-63.3 [facility] Comment on above: ACTH reference inter cruz for samples collected between 7 and10 AM.Performed at: [facility] [id number] Director: Sai Smalls PhD, Phone: [phone] Estimated GFR (CKD-EPI) > 60.0 mL/Min [facility] Creatinine Clearance (Chem 154.92 [facility] Nucleated erythrocytes [Pres ence] in Blood by Automated countOrdered By: Amanda Rosario on 05-20-2023 Nucleated RBC Auto Ql (Bld) 0.2 /100{WBC} 0-0.5 [facility] Platelet mean volume Auto (B ld) [Entitic vol]Ordered By: Amanda Rosario on 05-20-2023 Platelet mean volume (Bld) [Entitic vol] 7.4 fL 6.3-10.7 [facility] Platelets Auto (Bld) [#/Vol] Ordered By: Amanda Rosario on 05-20-2023 Platelets (Bld) [#/Vol] 256 10*3/uL 150-450 [facility] Potassium [Moles/volume] in Serum or PlasmaOrdered By: Amanda Rosario on 05-20-2023 Potassium [Moles/Vol] 4.2 mmol/L 3.5-5.1 [facility] Protein [Mass/volume] in Ser um or PlasmaOrdered By: Amanda Rosario on 05-20-2023 Protein [Mass/Vol] 6.1 g/dL 6.4-8.9 [facility] RBC Auto (Bld) [#/Vol]Ordere d By: Amanda Rosario on 05-20-2023 RBC (Bld) [#/Vol] 3.81 10*6/uL 3.60-5.00 [facility] Serum or plasma albumin/glob ulin mass ratioOrdered By: Amanda Rosario on 05-20-2023 Albumin/Globulin [Mass ratio] 1.7 {ratio} [facility] Serum or plasma anion gap de terminationOrdered By: Amanda Rosario on 05-20-2023 Anion gap [Moles/Vol] 10.1 mmol/L 6.0-15.0 [facility] Sodium [Moles/volume] in Ser um or PlasmaOrdered By: Amanda Rosario on 05-20-2023 Sodium [Moles/Vol] 136 mmol/L 136-145 [facility] Thyrotropin [Units/volume] i n Serum or PlasmaOrdered By: Amanda Rosario on 05-20-2023 TSH Qn 1.31 m[IU]/L 0.45-5.33 [facility] Thyroxine (T4) free [Mass/vo lume] in Serum or PlasmaOrdered By: Amanda Abraham on 05-20-2023 Free T4 [Mass/Vol] 0.86 ng/dL 0.61-1.12 [facility] Triiodothyronine (T3) Free [ Mass/volume] in Serum or PlasmaOrdered By: Amanda Abraham on 05-20-2023 Free T3 [Mass/Vol] 2.91 pg/mL 2.50-3.90 [facility] Urea nitrogen [Mass/volume] in Serum or PlasmaOrdered By: Amanda Rosario on 05-20-2023 Urea nitrogen [Mass/Vol] 10 mg/dL 7 [facility] WBC Auto (Bld) [#/Vol]Ordere d By: Amanda Rosario on 05-20-2023 WBC (Bld) [#/Vol] 10.3 10*3/uL 3.8-11.6 [facility] HEP B SURFACE ANTIGEN SCREEN on 04-08-2023 HBsAg Screen Negative Normal Negative [place] Comment on above: Performed By: #### T SH #### [facility] [address] [address] [address] Beth Pineda HEPATITIS C VIRUS AB W/ REFL EX QUANTon 04-08-2023 HCV AB Non-Reactive Normal Non Reactive [facility] Comment on above: Performed By: #### H CVPCRR #### [facility] [address] [address] [address] Beth Pineda HIV 1 AND 2 WITH REFLEXon HIV Screen 4th Generation wRfx Non-Reactive Normal Non Reactive [facility] Comment on above: Result Comment: HIV Negative HIV-1/HIV-2 antibodies and HIV-1 p24 antigen were NOT detected. There is no laboratory evidence of HIV infection. Performed By: #### H IV12 #### [facility] [address] [place] [address] Dr. Beth Pineda RPR QUANTon 04-08-2023 Rapid Plasma Reagin, Quant Non-Reactive Normal NonRea<1:1 [facility] Comment on above: Result Comment: Plea se Note: This test does not meet current guidelines for screening and diagnosis of syphilis. This test is intended for following treatment response in patients being treated for syphilis infection. To screen for syphilis infection, a reflex cascade that includes both RPR and a treponema-specific assay should be utilized, such as Treponema pallidum (Syphilis) Screening Winside (168017) or Rapid Plasma Reagin (RPR) Test With Reflex to Quantitative RPR and Confirmatory Treponema pallidum Antibodies (174182). Performed By: #### R PRQ #### [facility] [address] [place] [address] Dr. Beth Pineda RUBELLA AB IGGon 04-08-2023 Rubella Antibodies, IgG 1.35 index Normal Immu ne >0.99 [place] Comment on above: Result Comment: Non- immune <0.90 Equivocal 0.90 - 0.99 Immune >0.99 Performed By: #### R UBIGG #### [facility] [address] [place] [address] Dr. Beth Pineda BOX TEST SENT OUTon 04-07-20 23 SENT TO REF LAB 04/07/23 Normal [facility] Comment on above: Performed By: #### B OX #### [facility] [address] [place] [address] Dr. Beth Pineda CBC AUTO DIFFon 04-07-2023 BASO # 0.1 103/ul Normal 0.0-0.1 [place] Comment on above: Performed By: #### C BC #### [facility] [address] [place] [address] Dr. Beth Pineda Basophils/100 WBC (Bld) 0.7 % Normal 0.2-2.0 [facility] Comment on above: Performed By: #### C BC #### [facility] [address] [place] [address] Dr. Beth Pineda EO # 0.1 103/ul Normal 0.0-0.7 [place] Comment on above: Performed By: #### C BC #### [facility] [address] [place] [address] Dr. Beth Pineda Eosinophils/100 WBC (Bld) 1.1 % Normal 0.9-7.0 [place] Comment on above: Performed By: #### C BC #### [facility] [address] [place] [address] Dr. Beth Pineda Erythrocyte distribution width (RBC) [Ratio] 12.5 % Normal 11.0-15.0 [place] Comment on above: Performed By: #### C BC #### [facility] [address] [place] [address] Dr. Beth Pineda Hematocrit (Bld) [Volume fraction] 37.8 % Normal 36.0-48.0 [place] Comment on above: Performed By: #### C BC #### [facility] [address] [place] [address] Dr. Beth Pineda Hemoglobin (Bld) [Mass/Vol] 13.1 g/dL Normal 12.0-16.0 [place] Comment on above: Performed By: #### C BC #### [facility] [address] [place] [address] Dr. Beth Pineda IG # 0.02 10e3/ul Normal 0.00-0.03 [place] Comment on above: Performed By: #### C BC #### [facility] [address] [place] [address] Dr. Beth Pineda IG % 0.3 % Normal 0.0-0.5 [place] Comment on above: Performed By: #### C BC #### [facility] [address] [place] [address] Dr. Beth Pineda LYMPH # 1.5 103/ul Normal 1.2-3.8 [place] Comment on above: Performed By: #### C BC #### [facility] [address] [place] [address] Dr. Beth Pineda Lymphocytes/100 WBC (Bld) 19.9 % Critically low 20.5-60.0 [place] Comment on above: Performed By: #### C BC #### [facility] [address] [place] [address] Dr. Beth Pineda MANUAL DIFF REQ NO Normal [facility] Comment on above: Performed By: #### C BC #### [facility] [address] [address] [address] Beth Pineda MCH (RBC) [Entitic mass] 31.3 pg Normal 26.7-34.0 [place] Comment on above: Performed By: #### C BC #### [facility] [address] [place] [address] Dr. Beth Pineda MCHC (RBC) [Mass/Vol] 34.7 g/dL Normal 29.9-35.2 [place] Comment on above: Performed By: #### C BC #### [facility] [address] [place] [address] Dr. Beth Pineda MCV (RBC) [Entitic vol] 90.2 fL Normal 81.0-99.0 [facility] Comment on above: Performed By: #### C BC #### [facility] [address] [place] [address] Dr. Beth Pineda MONO # 0.5 103/ul Normal 0.3-0.8 [place] Comment on above: Performed By: #### C BC #### [facility] [address] [place] [address] Dr. Beth Pineda Monocytes/100 WBC (Bld) 6.1 % Normal 1.7-12.0 [facility] Comment on above: Performed By: #### C BC #### [facility] [address] [place] [address] Dr. Beth Pineda NEUT # 5.4 103/ul Normal 1.4-6.5 [place] Comment on above: Performed By: #### C BC #### [facility] [address] [place] [address] Dr. Beth Pineda Neutrophils/100 WBC (Bld) 71.9 % Normal 43.0-75.0 [place] Comment on above: Performed By: #### C BC #### [facility] [address] [place] [address] Dr. Beth Pineda Platelet mean volume (Bld) [Entitic vol] 8.9 fL Critically low 9.5-13.5 [place] Comment on above: Performed By: #### C BC #### [facility] [address] [address] [address] Beth Pineda PLT 272 103/ul Normal 150-450 [place] Comment on above: Performed By: #### C BC #### [facility] [address] [address] [address] Beth Pineda RBC 4.19 106/ul Critically low 4.20-5.40 [facility] Comment on above: Performed By: #### C BC #### [facility] [address] [address] [address] Beth Pineda WBC 7.5 103/ul Normal 4.0-11.0 [place] Comment on above: Performed By: #### C BC #### [facility] [address] [place] [address] Dr. Beth Pineda CULTURE URINEon 04-07-2023 CULTURE URINE Culture Observations : NO GROWTH. Normal [place] Comment on above: Performed By: #### T SH #### [facility] [address] [place] [address] Dr. Beth Pineda GLYCOHEMOGLOBIN A1Con 2022 ADA RECOMMENDATION SEE BELOW Normal [facility] Comment on above: Result Comment: ADA RECOMMENDED LIMIT 4.0 - 6.0 ADA THERAPEUTIC TARGET < 7.0 ACTION SUGGESTED > 7.0 Performed By: #### A 1C #### [facility] [address] [place] [address] Dr. Beth Pineda Glucose [Mass/Vol] 82 mg/dL Normal [facility] Comment on above: Performed By: #### A 1C #### [facility] [address] [place] [address] Dr. Beth Pineda HbA1c (Bld) [Mass fraction] 4.5 % Normal 4.5-6.2 [place] Comment on above: Performed By: #### A 1C #### [facility] [address] [place] [address] Dr. Beth Pineda TSHon 04-07-2023 TSH 2.191 uIU/mL Normal 0.358-3.740 [facility] Comment on above: Performed By: #### T SH #### [facility] [address] [address] [address] Beth Pineda TYPE AND SCREENon 04-07-2023 TYPE AND SCREEN Negative Normal [facility] Comment on above: Performed By: #### T #### [facility] [facility] [id number] Beth Pineda US PREG TVon 03-13-2023 [...] [place] PREG QUANT HCGon 02-27-2023 HCG QUANT 18725 mIU/mL Normal [place] Comment on above: Performed By: #### A 1C #### [facility] [address] [place], [place] [id number] Dr. Beth Pineda HCG RANGE SEE BELOW Normal [facility] Comment on above: Result Comment: 5-50 0.2-1 WEEK 50-500 1-2 WEEKS 100-5,000 2-3 WEEKS 500-10,000 3-4 WEEKS 1,000-50,000 4-5 WEEKS 10,000-100,000 5-6 WEEKS 15,000-200,000 6-8 WEEKS 10,000-100,000 2-3 MONTHS Performed By: #### A 1C #### [facility] [address] Beth Pineda PREG QUANT HCGon 02-11-2023 HCG QUANT 57 mIU/mL Normal [place] Comment on above: Performed By: #### A 1C #### [facility] [address] [address] [address] Beth Pineda HCG RANGE SEE BELOW Normal [place] Comment on above: Result Comment: 5-50 0.2-1 WEEK 50-500 1-2 WEEKS 100-5,000 2-3 WEEKS 500-10,000 3-4 WEEKS 1,000-50,000 4-5 WEEKS 10,000-100,000 5-6 WEEKS 15,000-200,000 6-8 WEEKS 10,000-100,000 2-3 MONTHS Performed By: #### A 1C #### [facility] [address] [place] [address] Dr. Beth Pineda PREG QUANT HCGon 02-09-2023 HCG QUANT 14 mIU/mL [facility] Comment on above: Performed By: #### P REGQNT #### [facility] [address] [place] [address] Dr. Beth Pineda HCG RANGE SEE BELOW Normal [place] Comment on above: Result Comment: 5-50 0.2-1 WEEK 50-500 1-2 WEEKS 100-5,000 2-3 WEEKS 500-10,000 3-4 WEEKS 1,000-50,000 4-5 WEEKS 10,000-100,000 5-6 WEEKS 15,000-200,000 6-8 WEEKS 10,000-100,000 2-3 MONTHS Performed By: #### P REGQNT #### [facility] [address] [place] [address] Dr. Beth Pineda ANTI-MULLERIAN HORMONEon Anti-Mullerian Hormone (AMH) 12.5 ng/mL Normal [place] Comment on above: Result Comment: For assays employing antibodies, the possibility exists for interference by heterophile antibodies in the samples.1 1.Tanja Nava. Interferences in Immunoassays - still a threat. Clin. Chem. 2000; 46: 5115-4323. This test was developed and its performance characteristics determined by [employer]. It has not been cleared or approved by the Food and Drug Administration. Reference Range: Females 20 - 25y: 1.23 - 11.51 Median 4.70 AMH concentrations of >= 1.06 ng/mL is correlated with a better response to ovarian stimulation, produced more retrievable oocytes and higher odds of live according to Erikaer et al. Fertility and Sterility. 2010: 94:1815-6128. The current AMH test method correlates with [...] SH #### [facility] [address] [place] [address] Dr. Beth Pineda PAP ACOG PANEL 2: 23 to 31on 01-20-2023 . . Normal [place] Comment on above: Performed By: #### T SH #### [facility] [address] [address] [address] Beth Pineda Age Gdln ACOG Testing - Normal [place] Comment on above: Performed By: #### T SH #### [facility] [address] [place] [address] Dr. Beth Pineda DIAGNOSIS: Comment [facility] Comment on above: Result Comment: NEGA TIVE FOR INTRAEPITHELIAL LESION OR MALIGNANCY. Performed By: #### T SH #### [facility] [address] [place] [address] Dr. Beth Pineda Methodology: Comment [facility] Comment on above: Result Comment: This liquid based ThinPrep(R) pap test was screened with the use of an image guided system. Performed By: #### T SH #### [facility] [address] [place] [address] Dr. Beth Pineda Note: Comment [facility] Comment on above: Result [...] SH #### [facility] [address] [address] [address] Beth Pineda Performed by: Comment Normal [facility] Comment on above: Result Comment: Pato Gonzalez, Can Repairer (ASCP) Performed By: #### T SH #### [facility] [address] [address] [address] Beth Pineda Reflex Criteria: Comment Normal [facility] Comment on above: Result Comment: The HPV DNA reflex criteria were not met with this specimen result therefore, no HPV testing was performed. . Performed By: #### T SH #### [facility] [address] [address] [address] Beth Pineda Specimen adequacy: Comment Normal [facility] Comment on above: Result Comment: Sati sfactory for evaluation. Endocervical and/or squamous metaplastic cells (endocervical component) are present. Performed By: #### T SH #### [facility] [address] [address] [address] Beth Pineda Albumin [Mass/volume] in Ser um or PlasmaOrdered By: Amanda Rosario on 01-09-2023 Albumin [Mass/Vol] 4.3 g/dL 3.2-5.5 [facility] Alkaline phosphatase [Enzyma tic activity/volume] in Serum or PlasmaOrdered By: Amanda Rosario on 01-09-2023 ALP [Catalytic activity/Vol] 54 U/L 32-92 [facility] Aspartate aminotransferase [ Enzymatic activity/volume] in Serum or PlasmaOrdered By: Amanda Rosario on 01-09-2023 AST [Catalytic activity/Vol] 21 U/L 10-42 [facility] Basophils Auto (Bld) [#/Vol] Ordered By: Amanda Rosario on 01-09-2023 Basophils (Bld) [#/Vol] 0.0 10*3/uL 0.0-0.2 [facility] Basophils/100 WBC Auto (Bld) Ordered By: Amanda Rosario on 01-09-2023 Basophils/100 WBC (Bld) 0.7 % . [facility] Bilirubin.total [Mass/volume ] in Serum or PlasmaOrdered By: Amanda Rosario on 01-09-2023 Bilirubin [Mass/Vol] 0.7 mg/dL 0.3-1.[address] [facility] [address] biopsyOrdered By: Amanda Nino se on 01-09-2023 Transferrin [Mass/Vol] 265 mg/dL 180-380 [facility] Calcium [Mass/volume] in Ser um or PlasmaOrdered By: Amanda Rosario on 01-09-2023 Calcium [Mass/Vol] 9.6 mg/dL 8.2-10.2 [facility] Carbon dioxide, total [Moles /volume] in Serum or PlasmaOrdered By: Amanda Rosario on 01-09-2023 CO2 [Moles/Vol] 27.2 mmol/L 22.0-30.0 [facility] Chloride [Moles/volume] in [place] or PlasmaOrdered By: Amanda Rosario on 01-09-2023 Chloride [Moles/Vol] 104 mmol/L 95-114 [facility] Creatinine and Glomerular fi ltration rate.predicted panel (S/P/Bld)Ordered By: Amanda Rosario on 01-09-2023 Creatinine [Mass/Vol] 0.72 mg/dL 0.44-1.03 [facility] Eosinophils Auto (Bld) [#/Vo l]Ordered By: Amanda Rosario on 01-09-2023 Eosinophils (Bld) [#/Vol] 0.1 10*3/uL 0.0-0.45 [facility] Eosinophils/100 WBC Auto (Bl d)Ordered By: Amanda Rosario on 01-09-2023 Eosinophils/100 WBC (Bld) 1.3 % . [facility] Erythrocyte distribution wid th Auto (RBC) [Ratio]Ordered By: Amanda Rosario on 01-09-2023 Erythrocyte distribution width (RBC) [Ratio] 13.1 % 11.9-15.3 [facility] Estimated glomerular filtrat ion rate (GFR) non- AmericanOrdered By: Amanda Rosario on 01-09-2023 GFR/1.73 sq M.predicted among non-blacks MDRD (S/P/Bld) [Vol rate/Area] > 60 mL/Min [facility] Ferritin [Mass/volume] in Se rum or PlasmaOrdered By: Amanda Rosario on 01-09-2023 Ferritin [Mass/Vol] 13.4 ng/mL 11-306.8 [facility] Globulin Calc (S) [Mass/Vol] Ordered By: Amanda Rosario on 01-09-2023 Globulin (S) [Mass/Vol] 2.3 g/dL [facility] Glucose [Mass/volume] in Ser um or PlasmaOrdered By: Amanda Rosario on 01-09-2023 Glucose [Mass/Vol] 80 mg/dL 70-100 [facility] Comment on above: ADA recommended refe rence rangeRandom Glucose Reference Range is dependent on time and content of last meal. Glucose of more than 200 mg/dL in a nonstressed, ambulatory subject supports the diagnosis of Diabetes Mellitus. Hematocrit Auto (Bld) [Volum e fraction]Ordered By: Amanda Rosario on 01-09-2023 Hematocrit (Bld) [Volume fraction] 39.5 % 34.0-46.4 [facility] Hemoglobin [Mass/volume] in BloodOrdered By: Amanda Rosario on 01-09-2023 Hemoglobin (Bld) [Mass/Vol] 13.1 g/dL 11.8-15.4 [facility] Iron [Mass/volume] in Serum or PlasmaOrdered By: Amanda Rosario on 01-09-2023 Iron [Mass/Vol] 75 ug/dL 40-150 [facility] Iron binding capacity [Mass/ volume] in Serum or PlasmaOrdered By: Amanda Rosario on 01-09-2023 Iron binding capacity [Mass/Vol] 371 ug/dL 255-450 [facility] Iron saturation [Mass Fracti on] in Serum or PlasmaOrdered By: Amanda Rosario on 01-09-2023 Iron saturation [Mass fraction] 20.2 % 20-50 [facility] Lactate dehydrogenase measur ement (enzymatic activity/volume)Ordered By: Ale Malone on 01-09-2023 LDH (Unsp spec) [Catalytic activity/Vol] 145 U/L 45-190 [facility] Leukocytes [#/volume] correc yanira for nucleated erythrocytes in Blood by Automated counOrdered By: Amanda Rosario on 01-09-2023 WBC corrected for nucl RBC Auto (Bld) [#/Vol] 4.8 10*3/uL 3.8-11.6 [facility] Lymphocytes Auto (Bld) [#/Vo l]Ordered By: Amanda Rosario on 01-09-2023 Lymphocytes (Bld) [#/Vol] 1.0 10*3/uL 1.00-4.8 [facility] Lymphocytes/100 WBC Auto (Bl d)Ordered By: Amanda Rosario on 01-09-2023 Lymphocytes/100 WBC (Bld) 20.2 % . [facility] MCH Auto (RBC) [Entitic mass ]Ordered By: Amanda Rosario on 01-09-2023 MCH (RBC) [Entitic mass] 30.0 pg 24.7-34.3 [facility] MCHC Auto (RBC) [Mass/Vol]Or dered By: Amanda Rosario on 01-09-2023 MCHC (RBC) [Mass/Vol] 33.2 g/dL 32.0-35.0 [facility] MCV Auto (RBC) [Entitic vol] Ordered By: Amanda Rosario on 01-09-2023 MCV (RBC) [Entitic vol] 90.3 fL 80-100 [facility] Monocytes Auto (Bld) [#/Vol] Ordered By: Amanda Rosario on 01-09-2023 Monocytes (Bld) [#/Vol] 0.5 10*3/uL 0.0-0.8 [facility] Monocytes/100 WBC Auto (Bld) Ordered By: Amanda Rosario on 01-09-2023 Monocytes/100 WBC (Bld) 10.5 % . [facility] Neutrophils Auto (Bld) [#/Vo l]Ordered By: Amanda Rosario on 01-09-2023 Neutrophils (Bld) [#/Vol] 3.2 10*3/uL 1.8-7.7 [facility] Neutrophils/100 WBC Auto (Bl d)Ordered By: Amanda Rosario on 01-09-2023 Neutrophils/100 WBC (Bld) 67.3 % . [facility] No Panel InformationOrdered By: Amanda Rosario on 01-09-2023 Estimated GFR () > 60 mL/Min [facility] Comment on above: GFR estimated refere nce range: According to KDOQI guidelines, <60 ml/min/1.73m2 is sufficient to diagnose a patient with chronic kidney disease. Pharmacy Creatinine Clearance (Chem 120.49 [facility] Nucleated erythrocytes [Pres ence] in Blood by Automated countOrdered By: Amanda Rosario on 01-09-2023 Nucleated RBC Auto Ql (Bld) 0.1 /100{WBC} 0-0.5 [facility] Platelet mean volume Auto (B ld) [Entitic vol]Ordered By: Amanda Rosario on 01-09-2023 Platelet mean volume (Bld) [Entitic vol] 7.9 fL 6.3-10.7 [facility] Platelets Auto (Bld) [#/Vol] Ordered By: Amanda Rosario on 01-09-2023 Platelets (Bld) [#/Vol] 290 10*3/uL 150-450 [facility] Potassium [Moles/volume] in Serum or PlasmaOrdered By: Amanda Rosario on 01-09-2023 Potassium [Moles/Vol] 4.4 mmol/L 3.5-5.1 [facility] Protein [Mass/volume] in Ser um or PlasmaOrdered By: Amanda Rosario on 01-09-2023 Protein [Mass/Vol] 6.6 g/dL 6.1-7.9 [facility] RBC Auto (Bld) [#/Vol]Ordere d By: Amanda Rosario on 01-09-2023 RBC (Bld) [#/Vol] 4.37 10*6/uL 3.60-5.00 [facility] Serum or plasma alanine green otransferase measurement without P-5'-P (enzymatic activiOrdered By: Amanda Rosario on 01-09-2023 ALT No additional P-5'-P [Catalytic activity/Vol] 20 U/L 10-60 [facility] Serum or plasma albumin/glob ulin mass ratioOrdered By: Amanda Rosario on 01-09-2023 Albumin/Globulin [Mass ratio] 1.9 {ratio} [facility] Serum or plasma anion gap de terminationOrdered By: Amanda Rosario on 01-09-2023 Anion gap [Moles/Vol] 10.2 mmol/L 6.0-15.0 [facility] Sodium [Moles/volume] in Ser um or PlasmaOrdered By: Amanda Rosario on 01-09-2023 Sodium [Moles/Vol] 137 mmol/L 136-146 [facility] Urea nitrogen [Mass/volume] in Serum or PlasmaOrdered By: Amanda Rosario on 01-09-2023 Urea nitrogen [Mass/Vol] 13 mg/dL 9-23 [facility] WBC Auto (Bld) [#/Vol]Ordere d By: Amanda Rosario on 01-09-2023 WBC (Bld) [#/Vol] 4.8 10*3/uL 3.8-11.6 [facility] CBC AUTO DIFFon 12-31-2022 BASO # 0.1 103/ul Normal 0.0-0.1 [place] Comment on above: Performed By: #### C BC #### [facility] [address] [place] [address] Dr. Beth Pineda Basophils/100 WBC (Bld) 1.2 % Normal 0.2-2.0 [facility] Comment on above: Performed By: #### C BC #### [facility] [address] [place] [address] Dr. Beth Pineda EO # 0.1 103/ul Normal 0.0-0.7 [place] Comment on above: Performed By: #### C BC #### [facility] [address] [place] [address] Dr. Beth Pineda Eosinophils/100 WBC (Bld) 2.1 % Normal 0.9-7.0 [place] Comment on above: Performed By: #### C BC #### [facility] [address] [place] [address] Dr. Beth Pineda Erythrocyte distribution width (RBC) [Ratio] 12.9 % Normal 11.0-15.0 [place] Comment on above: Performed By: #### C BC #### [facility] [address] [place] [address] Dr. Beth Pineda Hematocrit (Bld) [Volume fraction] 41.2 % Normal 36.0-48.0 [place] Comment on above: Performed By: #### C BC #### [facility] [address] [place] [address] Dr. Beth Pineda Hemoglobin (Bld) [Mass/Vol] 13.5 g/dL Normal 12.0-16.0 [place] Comment on above: Performed By: #### C BC #### [facility] [address] [place] [address] Dr. Beth Pineda IG # 0.01 10e3/ul Normal 0.00-0.03 [place] Comment on above: Performed By: #### C BC #### [facility] [address] [place] [address] Dr. Beth Pineda IG % 0.2 % Normal 0.0-0.5 [place] Comment on above: Performed By: #### C BC #### [facility] [address] [place] [address] Dr. Beth Pineda LYMPH # 1.6 103/ul Normal 1.2-3.8 [place] Comment on above: Performed By: #### C BC #### [facility] [address] [place] [address] Dr. Beth Pineda Lymphocytes/100 WBC (Bld) 29.9 % Normal 20.5-60.0 [place] Comment on above: Performed By: #### C BC #### [facility] [address] [place] [address] Dr. Beth Pineda MANUAL DIFF REQ NO Normal [facility] Comment on above: Performed By: #### C BC #### [facility] [address] [place] [address] Dr. Beth Pineda MCH (RBC) [Entitic mass] 30.3 pg Normal 26.7-34.0 [place] Comment on above: Performed By: #### C BC #### [facility] [address] [place] [address] Dr. Beth Pineda MCHC (RBC) [Mass/Vol] 32.8 g/dL Normal 29.9-35.2 [place] Comment on above: Performed By: #### C BC #### [facility] [address] [address] [address] Beth Pineda MCV (RBC) [Entitic vol] 92.6 fL Normal 81.0-99.0 [facility] Comment on above: Performed By: #### C BC #### [facility] [address] [address] [address] eBth Pineda MONO # 0.4 103/ul Normal 0.3-0.8 [place] Comment on above: Performed By: #### C BC #### [facility] [address] [place] [address] Dr. Beth Pineda Monocytes/100 WBC (Bld) 7.9 % Normal 1.7-12.0 [facility] Comment on above: Performed By: #### C BC #### [facility] [address] [place] [address] Dr. Beth Pineda NEUT # 3.0 103/ul Normal 1.4-6.5 [place] Comment on above: Performed By: #### C BC #### [facility] [address] [place] [address] Dr. Beth Pineda Neutrophils/100 WBC (Bld) 58.7 % Normal 43.0-75.0 [place] Comment on above: Performed By: #### C BC #### [facility] [address] [place] [address] Dr. Beth Pineda Platelet mean volume (Bld) [Entitic vol] 9.3 fL Critically low 9.5-13.5 [place] Comment on above: Performed By: #### C BC #### [facility] [address] [place] [address] Dr. Beth Pineda PLT 304 103/ul Normal 150-450 [place] Comment on above: Performed By: #### C BC #### [facility] [address] [place] [address] Dr. Beth Pineda RBC 4.45 106/ul Normal 4.20-5.40 [place] Comment on above: Performed By: #### C BC #### [facility] [address] [address] [address] Beth Pineda WBC 5.2 103/ul Normal 4.0-11.0 [place] Comment on above: Performed By: #### C BC #### [facility] [address] [place] [address] Dr. Beth Pineda GLYCOHEMOGLOBIN A1Con 2022 ADA RECOMMENDATION SEE BELOW Normal [facility] Comment on above: Result Comment: ADA RECOMMENDED LIMIT 4.0 - 6.0 ADA THERAPEUTIC TARGET < 7.0 ACTION SUGGESTED > 7.0 Performed By: #### T SH #### [facility] [address] [place] [address] Dr. Beth Pineda Glucose [Mass/Vol] 91 mg/dL Normal [facility] Comment on above: Performed By: #### T SH #### [facility] [address] [place] [address] Dr. Beth Pineda HbA1c (Bld) [Mass fraction] 4.8 % Normal 4.5-6.2 [place] Comment on above: Performed By: #### T SH #### [facility] [address] [place] [address] Dr. Beth Pineda LIPID PROFILEon 12-31-2022 CHOL-HDL RATIO NORM SEE BELOW Normal [facility] Comment on above: Result Comment: 3.3 - 4.4 LOW RISK 4.4 - 7.1 AVERAGE RISK 7.1 - 11.0 MODERATE RISK >11.0 HIGH RISK Performed By: #### A 1C #### [facility] [address] [place] [address] Dr. Beth Pineda Cholesterol [Mass/Vol] 180 mg/dL Normal <=200 [facility] Comment on above: Performed By: #### A 1C #### [facility] [address] [place] [address] Dr. Beth Pineda Cholesterol in HDL [Mass/Vol] 106 mg/dL Critically high 40-60 [place] Comment on above: Performed By: #### A 1C #### [facility] [address] [address] [address] Beth Pineda Cholesterol in LDL [Mass/Vol] 66.6 mg/dL Normal [place] Comment on above: Performed By: #### A 1C #### [facility] [address] [address] [address] Beth Pineda Cholesterol.total/Elida sterol in HDL [Mass ratio] 1.7 {ratio} Normal [place] Comment on above: Performed By: #### A 1C #### [facility] [address] [address] [address] Beth Pineda HDL NORMAL > or = 60 mg/dl - LO W CARDIOVASCULAR RISK <40 mg/dl - HIGH CARDIOVASCULAR RISK Normal [place] Comment on above: Performed By: #### A 1C #### [facility] [address] [place] [address] Dr. Beth Pineda LDL CALC NORMAL SEE BELOW Normal [facility] Comment on above: Result Comment: <100 mg/dl OPTIMAL 100 - 129 mg/dl NEAR OR ABOVE OPTIMAL 130 - 159 mg/dl BORDERLINE HIGH 160 - 189 mg/dl HIGH >190 mg/dl VERY HIGH Performed By: #### A 1C #### [facility] [address] [address] [address] Beth Pineda Triglyceride [Mass/Vol] 37 mg/dL Normal <=150 T [facility] Comment on above: Performed By: #### A 1C #### [facility] [address] [address] [address] Beth Pineda VLDL CALC 7.4 mg/dL Normal [place] Comment on above: Performed By: #### A 1C #### [facility] [address] [address] [address] Beth Pineda PROF 14(COMP METB)on 023 Albumin [Mass/Vol] 4.3 g/dL Normal 3.4-5.0 [facility] Comment on above: Performed By: #### T SH #### [facility] [address] [address] [address] Beth Pineda Albumin/Globulin [Mass ratio] 1.3 {ratio} Normal [place] Comment on above: Performed By: #### T SH #### [facility] [address] [address] [address] Beth Pineda ALP [Catalytic activity/Vol] 68 U/L Normal 46-116 [place] Comment on above: Performed By: #### T SH #### [facility] [address] [place] [address] Dr. Beth Pineda ALT [Catalytic activity/Vol] 21 U/L Normal 14-59 [place] Comment on above: Performed By: #### T SH #### [facility] [address] [place] [address] Dr. Beth Pineda Anion gap [Moles/Vol] 12.1 mmol/L Normal Th e [facility] Comment on above: Performed By: #### T SH #### [facility] [address] [place] [address] Dr. Beth Pineda AST [Catalytic activity/Vol] 10 U/L Critically low 15-37 [place] Comment on above: Performed By: #### T SH #### [facility] [address] [place] [address] Dr. Beth Pineda Bilirubin [Mass/Vol] 0.6 mg/dL Normal 0.2-1.0 [place] Comment on above: Performed By: #### T SH #### [facility] [address] [place] [address] Dr. Beth Pineda Calcium [Mass/Vol] 9.2 mg/dL Normal 8.5-10.1 [facility] Comment on above: Performed By: #### T SH #### [facility] [address] [place] [address] Dr. Beth Pineda Chloride [Moles/Vol] 103 mmol/L Normal 98-107 [place] Comment on above: Performed By: #### T SH #### [facility] [address] [place] [address] Dr. Beth Pineda CO2 [Moles/Vol] 28.0 mmol/L Normal 21.0-32.0 [facility] Comment on above: Performed By: #### T SH #### [facility] [address] [place] [address] Dr. Beth Pineda Creatinine [Mass/Vol] 0.73 mg/dL Normal 0.55-1.02 [place] Comment on above: Performed By: #### T SH #### [facility] [address] [place] [address] Dr. Beth Pineda EGFR-AF [place] CITIZ[place] >60 Normal >=60 [facility] Comment on above: Performed By: #### T SH #### [facility] [facility] [address] [place] [address] Dr. Beth Pineda EGFR-NON AF [place] CITIZ[place] >60 Normal >=60 [place] Comment on above: Performed By: #### T SH #### [facility] [address] [place] [address] Dr. Beth Pineda Globulin (S) [Mass/Vol] 3.2 g/dL Normal [facility] Comment on above: Performed By: #### T SH #### [facility] [address] [place] [address] Dr. Beth Pineda Glucose [Mass/Vol] 89 mg/dL Normal 74-106 [facility] Comment on above: Performed By: #### T SH #### [facility] [address] [place] [address] Dr. Beth Pineda Potassium [Moles/Vol] 4.1 mmol/L Normal 3.5-5.1 [place] Comment on above: Performed By: #### T SH #### [facility] [address] [place] [address] Dr. Beth Pineda Protein [Mass/Vol] 7.5 g/dL Normal 6.4-8.2 [facility] Comment on above: Performed By: #### T SH #### [facility] [address] [place] [address] Dr. Beth Pineda Sodium [Moles/Vol] 139 mmol/L Normal 136-145 [facility] Comment on above: Performed By: #### T SH #### [facility] [address] [place] [address] Dr. Beth Pineda Urea nitrogen [Mass/Vol] 10.0 mg/dL Normal 7.0-18.0 [place] Comment on above: Performed By: #### T SH #### [facility] [address] [place] [address] Dr. Beth Pineda Urea nitrogen/Creatinine [Mass ratio] 13.7 mg/mg Normal [place] Comment on above: Performed By: #### T SH #### [facility] [address] [address] [address] Beth Pineda TSHon 12-31-2022 TSH 3.121 uIU/mL Normal 0.358-3.740 [facility] Comment on above: Performed By: #### A 1C #### [facility] [address] [place] [address] Dr. Beth Pineda Albumin [Mass/volume] in Ser um or PlasmaOrdered By: Amanda Rosario on 07-08-2022 Albumin [Mass/Vol] 3.9 g/dL 3.2-5.5 [facility] Basophils Auto (Bld) [#/Vol] Ordered By: Amanda Rosario on 07-08-2022 Basophils (Bld) [#/Vol] 0.1 10*3/uL 0.0-0.2 [facility] Basophils/100 WBC Auto (Bld) Ordered By: Amanda Rosario on 07-08-2022 Basophils/100 WBC (Bld) 1.3 % . F [facility] Blood hemoglobin measurement (mass/volume)Ordered By: Amanda Rosario on 07-08-2022 Hemoglobin (Bld) [Mass/Vol] 14.2 g/dL 11.8-15.4 [facility] Blood leukocytes automated c ount (number/volume)Ordered By: Amanda Rosario on 07-08-2022 WBC (Bld) [#/Vol] 5.6 10*3/uL 4.5-11.0 [facility] CT biopsyOrdered By: Amanda Nino se on 07-08-2022 Transferrin [Mass/Vol] 346 mg/dL 180-380 [facility] Creatinine and Glomerular fi ltration rate.predicted panel (S/P/Bld)Ordered By: Amanda Rosario on 07-08-2022 Creatinine [Mass/Vol] 0.78 mg/dL 0.44-1.03 [facility] Eosinophils Auto (Bld) [#/Vo l]Ordered By: Amanda Rosario on 07-08-2022 Eosinophils (Bld) [#/Vol] 0.1 10*3/uL 0.0-0.45 [facility] Eosinophils/100 WBC Auto (Bl d)Ordered By: Amanda Rosario on 07-08-2022 Eosinophils/100 WBC (Bld) 1.2 % . [facility] Erythrocyte distribution wid th Auto (RBC) [Ratio]Ordered By: Amanda Rosario on 07-08-2022 Erythrocyte distribution width (RBC) [Ratio] 12.4 % 11.9-15.3 [facility] Estimated glomerular filtrat ion rate (GFR) non- AmericanOrdered By: Amanda Rosario on 07-08-2022 GFR/1.73 sq M.predicted among non-blacks MDRD (S/P/Bld) [Vol rate/Area] > 60 mL/Min [facility] Ferritin [Mass/volume] in Se rum or PlasmaOrdered By: Amanda Rosario on 07-08-2022 Ferritin [Mass/Vol] 9.6 ng/mL 11-306.8 [facility] Globulin Calc (S) [Mass/Vol] Ordered By: Amanda Rosario on 07-08-2022 Globulin (S) [Mass/Vol] 2.9 g/dL [facility] Hematocrit Auto (Bld) [Volum e fraction]Ordered By: Amanda Rosario on 07-08-2022 Hematocrit (Bld) [Volume fraction] 42.7 % 34.0-46.4 [facility] Iron [Mass/volume] in Serum or PlasmaOrdered By: Amanda Rosario on 07-08-2022 Iron [Mass/Vol] 173 ug/dL 40-150 [facility] Iron binding capacity [Mass/ volume] in Serum or PlasmaOrdered By: Amanda Rosario on 07-08-2022 Iron binding capacity [Mass/Vol] 484 ug/dL 255-450 [facility] Iron saturation [Mass Fracti on] in Serum or PlasmaOrdered By: Amanda Rosario on 07-08-2022 Iron saturation [Mass fraction] 35.0 % 20-50 [facility] Laboratory - Hematology and Cell countsOrdered By: Amanda Rosario on 07-08-2022 Nucleated RBC/100 WBC (Bld) [Ratio] 0.2 % 0-0.5 [facility] Lactate dehydrogenase measur ement (enzymatic activity/volume)Ordered By: Amanda Rosario on 07-08-2022 LDH (Unsp spec) [Catalytic activity/Vol] 154 U/L 45-190 [facility] Lymphocytes Auto (Bld) [#/Vo l]Ordered By: Amanda Rosario on 07-08-2022 Lymphocytes (Bld) [#/Vol] 1.5 10*3/uL 1.00-4.8 [facility] Lymphocytes/100 WBC Auto (Bl d)Ordered By: Amanda Rosario on 07-08-2022 Lymphocytes/100 WBC (Bld) 26.6 % . [facility] MCH Auto (RBC) [Entitic mass ]Ordered By: Amanda Rosario on 07-08-2022 MCH (RBC) [Entitic mass] 29.7 pg 24.7-34.3 [facility] MCHC Auto (RBC) [Mass/Vol]Or dered By: Amanda Rosario on 07-08-2022 MCHC (RBC) [Mass/Vol] 33.3 g/dL 32.0-35.0 [facility] MCV Auto (RBC) [Entitic vol] Ordered By: Amanda Rosario on 07-08-2022 MCV (RBC) [Entitic vol] 89.4 fL 80-100 [facility] Monocytes Auto (Bld) [#/Vol] Ordered By: Amanda Rosario on 07-08-2022 Monocytes (Bld) [#/Vol] 0.5 10*3/uL 0.0-0.8 [facility] Monocytes/100 WBC Auto (Bld) Ordered By: Amanda Rosario on 07-08-2022 Monocytes/100 WBC (Bld) 9.7 % . [facility] Neutrophils Auto (Bld) [#/Vo l]Ordered By: Amanda Rosario on 07-08-2022 Neutrophils (Bld) [#/Vol] 3.4 10*3/uL 1.8-7.7 [facility] Neutrophils/100 WBC Auto (Bl d)Ordered By: Amanda Rosario on 07-08-2022 Neutrophils/100 WBC (Bld) 61.2 % . [facility] No Panel InformationOrdered By: Amanda Rosario on 07-08-2022 Adrenocorticotropic Hormone 8.2 pg/mL 7.2-63.3 [facility] Comment on above: ACTH reference inter cruz for samples collected between 7 and 10 AM. Performed at: [facility] [id number] [place] Folder: Sai Smalls PhD, Phone: [phone] ACTH reference inter cruz for samples collected between 7 and10 AM.Performed at: [facility] [id number] Director: Sia Smalls PhD, Phone: [phone] Estimated GFR () > 60 mL/Min [facility] Comment on above: GFR estimated refere nce range: According to KDOQI guidelines, <60 ml/min/1.73m2 is sufficient to diagnose a patient with chronic kidney disease. Pharmacy Creatinine Clearance (Chem 111.22 [facility] Total Triiodothyronine 1.68 ng/mL 0.87-1.78 [facility] Platelet mean volume Auto (B ld) [Entitic vol]Ordered By: Amanda Rosario on 07-08-2022 Platelet mean volume (Bld) [Entitic vol] 8.0 fL 6.3-10.7 [facility] Platelets Auto (Bld) [#/Vol] Ordered By: Amanda Rosario on 07-08-2022 Platelets (Bld) [#/Vol] 393 10*3/uL 150-450 [facility] Protein [Mass/volume] in Ser um or PlasmaOrdered By: Amanda Rosario on 07-08-2022 Protein [Mass/Vol] 6.8 g/dL 6.1-7.9 [facility] RBC Auto (Bld) [#/Vol]Ordere d By: Amanda Rosario on 07-08-2022 RBC (Bld) [#/Vol] 4.78 10*6/uL 3.60-5.00 [facility] Random cortisol measurementO rdered By: Amanda Rosario on 07-08-2022 Cortisol [Mass/Vol] 12.6 ug/dL [facility] Comment on above: Reference range: AM 6 - 24 ug/dl PM <10 ug/dl Reference range: AM 6 - 24 ug/dl PM <10 ug/dl Serum or plasma alanine green otransferase measurement without P-5'-P (enzymatic activiOrdered By: Amanda Rosario on 07-08-2022 ALT No additional P-5'-P [Catalytic activity/Vol] 17 U/L 10-60 [facility] Serum or plasma albumin/glob ulin mass ratioOrdered By: Amanda Rosario on 07-08-2022 Albumin/Globulin [Mass ratio] 1.3 {ratio} [facility] Serum or plasma alkaline mando sphatase measurement (enzymatic activity/volume)Ordered By: Amanda Rosaroi on 07-08-2022 ALP [Catalytic activity/Vol] 52 U/L 32-92 [facility] Serum or plasma aspartate am inotransferase measurement (enzymatic activity/volume)Ordered By: Amanda Rosario on 07-08-2022 AST [Catalytic activity/Vol] 22 U/L 10-42 [facility] Serum or plasma calcium saritha urement (mass/volume)Ordered By: Amanda Rosario on 07-08-2022 Calcium [Mass/Vol] 9.3 mg/dL 8.2-10.2 [facility] Serum or plasma chloride obi surement (moles/volume)Ordered By: Amanda Rosario on 07-08-2022 Chloride [Moles/Vol] 104 mmol/L 95-114 [facility] Serum or plasma glucose saritha urement (mass/volume)Ordered By: Amanda Rosario on 07-08-2022 Glucose [Mass/Vol] 83 mg/dL 70-100 [facility] Comment on above: ADA recommended refe rence range Random Glucose Reference Range is dependent on time and content of last meal. Glucose of more than 200 mg/dL in a nonstressed, ambulatory subject supports the diagnosis of Diabetes Mellitus. Serum or plasma potassium me asurement (moles/volume)Ordered By: Amanda Rosario on 07-08-2022 Potassium [Moles/Vol] 4.3 mmol/L 3.5-5.1 [facility] Serum or plasma sodium measu rement (moles/volume)Ordered By: Amanda Rosario on 07-08-2022 Sodium [Moles/Vol] 134 mmol/L 136-146 [facility] Serum or plasma thyroxine (T 4) measurement (mass/volume)Ordered By: Amanda Rosario on 07-08-2022 T4 [Mass/Vol] 11.18 ug/dL 5.39-11.82 [facility] Serum or plasma total biliru bin measurement (mass/volume)Ordered By: Amanda Rosario on 07-08-2022 Bilirubin [Mass/Vol] 0.7 mg/dL 0.3-1.2 [facility] Serum or plasma total carbon dioxide measurement (moles/volume)Ordered By: Amanda Rosario on 07-08-2022 CO2 [Moles/Vol] 22.2 mmol/L 22.0-30.0 [facility] Serum or plasma urea nitroge n measurement (mass/volume)Ordered By: Amanda Rosario on 07-08-2022 Urea nitrogen [Mass/Vol] 9 mg/dL 9-23 [facility] TSH DL <= 0.005 mIU/L QnOrde red By: Amanda Rosario on 07-08-2022 TSH Qn 1.69 m[IU]/L 0.45-5.33 [facility] CHLAMYDIA/GONOCOCCUS PARMINDER (SW AB/URINE/PAPon 06-19-2022 Chlamydia trachomatis, PARMINDER Negative Normal Negative [facility] Comment on above: Performed By: #### T SH #### [facility] [address] [place] [address] Dr. Beth Pineda Neisseria gonorrhoeae, PARMINDER Negative Normal Negative [facility] Comment on above: Performed By: #### T SH #### [facility] [address] [address] [address] Beth Pineda VAGINITIS/VAGINOSIS DNA PROB Kaden 06-18-2022 Steven species Negative Normal Negative [facility] Comment on above: Performed By: #### T SH #### [facility] [address] [place] [address] Dr. Beth Pineda Gardnerella vaginalis Negative Normal Negative [facility] Comment on above: Performed By: #### T SH #### [facility] [address] [address] [address] Beth Pineda Trichomonas vaginalis Negative Normal Negative [facility] Comment on above: Performed By: #### T SH #### [facility] [address] [address] [address] Beth Pineda Creatinine [Mass/volume] in UrineOrdered By: Amanda Rosario on 05-23-2022 Creatinine (U) [Mass/Vol] 26.2 mg/dL [facility] Comment on above: No reference range e stablished Laboratory - Chemistry and C hemistry - challengeOrdered By: Amanda Rosario on 05-23-2022 Lipase [Catalytic activity/Vol] 32.0 U/L 22-51 [facility] Protein [Mass/volume] in Uri neOrdered By: Amanda Rosario on 05-23-2022 Protein (U) [Mass/Vol] mg/dL 0-9 [facility] Thyroxine (T4) free [Mass/vo lume] in Serum or PlasmaOrdered By: Amanda Rosario on 05-23-2022 Free T4 [Mass/Vol] 0.88 ng/dL 0.61-1.12 [facility] Bilirubin Test strip Ql (U)O rdered By: Amanda Rosario on 10-30-2021 Bilirubin Ql (U) Negative Negative [facility] Color Auto (U)Ordered By: Ira Rosario on 10-30-2021 Color (U) Yellow Yellow [facility] Ketones Auto test strip (U) [Mass/Vol]Ordered By: Amanda Rosario on 10-30-2021 Ketones (U) [Mass/Vol] Negative Negative [facility] Nitrite Test strip Ql (U)Ord ered By: Amanda Rosario on 10-30-2021 Nitrite Ql (U) Negative Negative [facility] Protein Auto test strip (U) [Mass/Vol]Ordered By: Amanda Rosario on 10-30-2021 Protein (U) [Mass/Vol] Negative Negative [facility] Specific gravity Auto test s trip (U) [Rel density]Ordered By: Amanda Rosario on 10-30-2021 Specific gravity (U) [Rel density] 1.008 1.001-1.030 [facility] Urine clarity by refractomet ry automatedOrdered By: Amanda Rosario on 10-30-2021 Clarity Refractometry automated (U) Clear Clear [facility] Urine glucose measurement by automated test strip (mass/volume)Ordered By: Amanda Rosario on 10-30-2021 Glucose Auto test strip (U) [Mass/Vol] Normal mg/dL Normal [facility] Urine hemoglobin detection b y automated test stripOrdered By: Amanda Rosario on 10-30-2021 Hemoglobin Auto test strip Ql (U) Negative Negative [facility] Urine leukocyte esterase det ection by automated test stripOrdered By: Amanda Rosario on 10-30-2021 Leukocyte esterase Auto test strip Ql (U) Negative Negative [facility] Urobilinogen Auto test strip (U) [Mass/Vol]Ordered By: Amanda Rosario on 10-30-2021 Urobilinogen (U) [Mass/Vol] Normal mg/dL Normal [facility] pH Auto test strip (U)Ordere d By: Amanda Rosario on 10-30-2021 pH (U) 5.5 [pH] 5.0-9.0 [facility] Lab Reportson 07-31-2021 Lab Reports [id number] D:127 Normal [facility] RAD - MISCon 07-31-2021 RAD [facility] [id number] D:127 Normal [facility] HCG ( test) IA.rapi d Ql (U)Ordered By: Amanda Rosario on 07-09-2021 HCG ( test) Ql (U) Negative [facility] Glucose Glucometer (BldC) [M ass/Vol]Ordered By: Amanda Rosario on 07-01-2021 Glucose [Mass/Vol] 82 mg/dL [facility] Comment on above: Random Glucose Refer ence Range is dependent on time and content of last meal. Glucose of more than 200 mg/dL in a nonstressed, ambulatory subject supports the diagnosis of Diabetes Mellitus. 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 Will follow up with the pathology report once this is resulted Dictation software was used in the creation of this note and not corrected for typographical or grammatical errors Chief Complaint Postop History of Present Cwfmqji07-huys-weh woman who underwent wide excision right posterior calf melanoma with [place] flap reconstruction as well as right inguinal and iliac sentinel lymph node biopsy on 05/17/2021. Pathology report has not yet resulted. She is recovering well. Active Problems Malignant melanoma of lower leg, right (172.7) (C43.71) Allergies No Known Drug Allergies Recorded By: Florence Fernando; 05/30/2021 2:49:13 PM Vitals Vital Signs Recorded: 30May2021 02:47PM Bggezrjqoci98 C, Temporal Heart Kgpd913 Lmgfsqqnyqt45 Iaciadku737, RUE, Sitting Spltudkgr73, RUE, Sitting Blood Pressure Cuff SizeAdult Jsazix848 cm Cpzcba45.6 kg BMI Qhdaqixvel85.58 kg/m2 BSA Calculated1.77 O2 Fcgbiowkgf02 Pain Scale0 Physical Exam Right groin wounds above and below the inguinal crease are both healing well without evidence of infection or seroma Right lower leg incision healing well without infection or skin separation. There is some bruising noted around the flap but no flap ischemia Signatures Electronically signed by : Sarah Nevarez MD; May 30 2021 3:18PM EST (Author) Normal [facility] Dermatopathologyon Dermatopathology Name MOISES KANG Pathologist: ANUJA [...] These were compared to the original melanoma ([id number]) and are consistent with a metastatic focus [...] that were compared to the original melanoma ([id number]) and are smaller with less cytoplasm compared [...] landis-yellow irregularly shaped piece of skin measuring [id number]. The specimen is embedded in toto. B: Received in formalin is a landis-yellow irregularly shaped piece of skin measuring [id number]. The specimen is embedded in toto. C: Received in formalin is a landis-yellow irregularly shaped piece of skin measuring [id number]. The specimen is embedded in toto. D: Received in formalin is a landis ellipse of skin measuring [id number], oriented by the surgeon with short stitch [...] Block 1 is at 12 o'clock. ink/05/21/2021 [facility]at[facility] [place] [id number] [place] [address], [facility] [address] [place] [address] Comment on above: Performed By: #### D #### Dermatopathology HCG,URINEon 05-17-2021 Beta HCG ( test) Ql (U) Negative Normal Negative [facility] Comment on above: Performed By: #### H CGU #### [facility] [address] [address] [place] [address] LYMPH GLANDon 05-17-2021 LYMPH GLAND Patient Name: AILYN KANG STUDY: LYMPH GLAND; 05/17/2021 12:45 pm INDICATION: Malignant melanoma of right posterior leg. COMPARISON: None. ACCESSION NUMBER(S): [id number] ORDERING CLINICIAN: SARAH NEVAREZ TECHNIQUE: DIVISION OF [...] as stated. This study was interpreted at [facility], [place], [place]. Electronically signed by: TAMY LAWTON MD Normal [facility] NM Lymph Glandon 05-17-2021 NM Lymph node Views Normal [facility]-A dmin Main Work Phone: No Panel Informationon 05-17 ZP-Aiogqea-V [facility] Work Phone: Order Reconciliationon 05-17 Order [...] 4 days PRN pain, Dx: G89.18 Normal [facility] Patient Profile - Preop v2on 05-17-2021 Patient Profile - Preop v2 Profile: Initial Info: How to be AddressedSamantha Spoken Language PreferredEnglish Source of Informationpatient Are you currently using the Personal Electronic Health Record or [employer] Are you interested in learning more about [facility] for the management of your healthnot at this time Stated Reason for Admissionwide excision melanoma right posterior leg, keystone flap and sentinel lymph node biopsy Primary Contact Name and NumberChleigh ann lao [phone] Limitations on Visitors/Phone Callsnone Patient Belongingsremains with patient Patient Belongings Remaining with Patientclothing; cell phone/electronics Medications Brought to Hospitalno General Health: Weight in kg63.6 kilogram(s) Weight in igm180.2 pound(s) Weight Methodstated Height in feet5 feet Height in inches8 inch(es) Height in cm172.7 centimeter(s) Height Methodstated BMI (kg/m2)21.324 square meter Patient or Family Member Reaction to Anesthesianever had anesthesia Blood Avoidance/Restrictionsn one Previous Transfusion Reactionno Health Mgmt: Symptoms/Conditions Managed at [facility] Are You no Are You Currently Breastfeedingno Barriers to Managing Healthnone Relationship/Environ: Living Arrangementshouse Lives Withsignificant other Resource/Environmental Concernsnone [facility] Anticipated at Transitionnone Substance: Current or [...] instruction; written material Cultural Considerationsnone Developmental Considerationsnone Sabianist Considerationsnone Other learner availableno [place] RiskPatient location auto qualifies him/her for HIGH RISK. Are there any cultural, spiritual, zoroastrian practices/values/needs that are important for us to knowno Do you want a visit/item from [facility] Would you like your Stencil Inspector/Dough Cutting Machine Operator notifiedno Pain Scalenumerical 0-10 Pain Scale Educationteaching [...] Last Updated: 17-May-2021 09:34 by Arabella Luis) [facility] Preop Checkliston 05-17-2021 Preop Checklist Preop Checklist: Preop Checklist: Arrival [id number] Arrival Time08:55 Procedure Typewide excision melanoma right posterior leg, keystone flap and sentinel lymph node biopsy Temperature C37.1 degrees C Temperature F98.7 degrees F Heart Rate92 beats per minute Respiratory Rate16 breath per minute Blood Pressure Jjcgwebr305 mm/Hg Blood Pressure Jxcbfqsqe66 mm/Hg NPO Ewmjdg12-Kud-2610 22:00 Allergy Bandno known allergies Consent Signedyes [...] Last Updated: 17-May-2021 09:36 by Arabella Luis) [facility] Urine Teston 05-17 HCG ( test) Ql (U) Negative Negative JB-Uehtpbp-A dmin Main Work Phone: Initial Visit (General [...] errors Chief Complaint Melanoma History of Present Tcsshyn76-jker-exs woman referred from [facility] for right [...] Body mass index (BMI) [Ratio] 22.74 kg/m2 [employer] Work Phone: [facility] 11-28-2024 14:41-0500 Body weight 69.85 kg [employer] Work Phone: [facility] 11-28-2024 14:41-0500 Diastolic blood pressure 70 mm[Hg] [employer] Phone: [facility] 11-28-2024 14:41-0500 Systolic blood pressure 118 mm[Hg] [employer] Work Phone: [facility] 10-24-2024 14:44-0500 Body mass index (BMI) [Ratio] 22 kg/m2 Delvis Kt DO Work Phone: [facility] 10-24-2024 14:44-0500 Body weight 67.59 kg Delvis Kt DO Work Phone: [facility] 10-24-2024 14:44-0500 Diastolic blood pressure 68 mm[Hg] Delvis Kt DO Work Phone: [facility] 10-24-2024 14:44-0500 Systolic blood pressure 114 mm[Hg] Delvis Kt DO Work Phone: [facility] 10-11-2024 14:39-0500 Body height 175.3 cm Mike Wagner MD Work Phone: [facility] 10-11-2024 14:39-0500 Body mass index (BMI) [Ratio] 21.56 kg/m2 Mike Wagner MD Work Phone: [facility] 10-11-2024 14:39-0500 Body temperature 97.5 [degF] Mike Wagner MD Work Phone: [facility] 10-11-2024 14:39-0500 Body weight 66.22 kg Mike Wagner MD Work Phone: [facility] 10-11-2024 14:39-0500 Diastolic blood pressure 52 mm[Hg] Mike Wagner MD Work Phone: [facility] 10-11-2024 14:39-0500 Heart rate 106 /min Mike Wagner MD Work Phone: [facility] 10-11-2024 14:39-0500 Respiratory rate 22 /min Mike Wagner MD Work Phone: [facility] 10-11-2024 14:39-0500 SaO2% (BldA) [Mass fraction] 99 % Mike Wagner MD Work Phone: [facility] 10-11-2024 14:39-0500 Systolic blood pressure 118 mm[Hg] Mike Wagner MD Work Phone: [facility] 09-26-2024 15:17-0500 Body mass index (BMI) [Ratio] 21.34 kg/m2 Delvis Kt DO Work Phone: [facility] 09-26-2024 15:17-0500 Body weight 65.55 kg Delvis Kt DO Work Phone: [facility] 09-26-2024 15:17-0500 Diastolic blood pressure 68 mm[Hg] Delvis Kt DO Work Phone: [facility] 09-26-2024 15:17-0500 Systolic blood pressure 116 mm[Hg] Delvis Kt DO Work Phone: [facility] 08-26-2024 10:04-0400 Body mass index (BMI) [Ratio] 20.97 kg/m2 [facility] Nurse [facility] 08-26-2024 10:04-0400 Body weight 64.41 kg [facility] Nurse [facility] 08-26-2024 10:04-0400 Diastolic blood pressure 82 mm[Hg] [facility] Nurse [facility] 08-26-2024 10:04-0400 Systolic blood pressure 118 mm[Hg] [facility] Nurse [facility] 05-22-2023 08:55-0400 Body temperature 97.8 [degF] MD Sarah Nevarez Work Phone: [facility] 05-22-2023 08:55-0400 Body weight 69.85 kg MD Sarah Nevarez Work Phone: [facility] 05-22-2023 08:55-0400 Diastolic blood pressure 68 mm[Hg] MD Sarah Nevarez Work Phone: [facility] 05-22-2023 08:55-0400 Heart rate 79 /min MD Sarah Nevarez Work Phone: [facility] 05-22-2023 08:55-0400 Respiratory rate 16 /min MD Sarah Nevarez Work Phone: [facility] 05-22-2023 08:55-0400 SaO2% (BldA) [Mass fraction] 98 % MD Sarah Nevarez Work Phone: [facility] 05-22-2023 08:55-0400 Systolic blood pressure 108 mm[Hg] MD Sarah Nevarez Work Phone: [facility] 01-21-2023 14:57-0500 Body temperature 97.8 [degF] MD Sarah Nevarez Work Phone: [facility] 01-21-2023 14:57-0500 Body weight 67.2 kg MD Sarah Nevarez Work Phone: [facility] 01-21-2023 14:57-0500 Diastolic blood pressure 79 mm[Hg] MD Sarah Nevarez Work Phone: [facility] 01-21-2023 14:57-0500 Heart rate 72 /min MD Sarah Nevarez Work Phone: [facility] 01-21-2023 14:57-0500 Respiratory rate 16 /min MD Sarah Nevarez Work Phone: [facility] 01-21-2023 14:57-0500 SaO2% (BldA) [Mass fraction] 98 % MD Sarah Nevarez Work Phone: [facility] 01-21-2023 14:57-0500 Systolic blood pressure 119 mm[Hg] MD Sarah Nevarez Work Phone: [facility] 07-08-2022 13:02-0400 Body height 172.72 cm MD Amanda Rosario Work Phone: [facility] 07-08-2022 13:02-0400 Body temperature 98 [degF] MD Amanda Rosario Work Phone: [facility] 07-08-2022 13:02-0400 Body weight 67.81 kg MD Amanda Rosario Work Phone: [facility] 07-08-2022 13:02-0400 Diastolic blood pressure 71 mm[Hg] MD Amanda Rosario Work Phone: [facility] 07-08-2022 13:02-0400 Heart rate 95 /min MD Amanda Rosario Work Phone: [facility] 07-08-2022 13:02-0400 Respiratory rate 20 /min MD Amanda Rosario Work Phone: [facility] 07-08-2022 13:02-0400 SaO2% (BldA) [Mass fraction] 97 % MD Amanda Rosario Work Phone: [facility] 07-08-2022 13:02-0400 Systolic blood pressure 115 mm[Hg] MD Amanda Rosario Work Phone: [facility] 05-30-2021 14:47-0400 Body height 173 cm Price Girard Work Phone: BO-Dqadtps-Oessl Main Work Phone: 05-30-2021 14:47-0400 Body mass index (BMI) [Ratio] 21.58 kg/m2 Price Girard Work Phone: VJ-Vafulea-Sjilq Main Work Phone: 05-30-2021 14:47-0400 Body surface area Derived from formula 1.77 m2 Price Girard Work Phone: TQ-Buajpuz-Vbacf Main Work Phone: 05-30-2021 14:47-0400 Body temperature 98.6 [degF] Price Girard Work Phone: RF-Pcuwzno-Gteah Main Work Phone: 05-30-2021 14:47-0400 Body weight 64.6 kg Price Girard Work Phone: CP-Xllzbev-Kmiwg Main Work Phone: 05-30-2021 14:47-0400 Diastolic blood pressure 77 mm[Hg] Price Girard Work Phone: NB-Mckfghk-Hyhjw Main Work Phone: 05-30-2021 14:47-0400 Heart rate 103 /min Price Girard Work Phone: QF-Ccwpwsg-Knocf Main Work Phone: 05-30-2021 14:47-0400 Respiratory rate 16 /min Price Girard Work Phone: IQ-Rwdmlei-Bdvbc Main Work Phone: 05-30-2021 14:47-0400 SaO2% (BldA) [Mass fraction] 99 % Price Girard Work Phone: NA-Qsatyvi-Xtizi Main Work Phone: 05-30-2021 14:47-0400 Systolic blood pressure 131 mm[Hg] Price Girard Work Phone: XQ-Hifzsja-Dmgra Main Work Phone: 05-30-2021 14:47-0400 0 1 Price Girard Work Phone: FN-Zxwygdy-Kialk Main Work Phone: Comment on above: PainLorna [...] 18-39 yrs Delvis Kt DO Work Phone: [facility] Comment on above: Second trimester pre gnancy; 16 weeks gestation of ; Vaginal discharge; STD exposure; Screening, , for anatomic survey; Hematuria, unspecified type Start: 10-24-2024 End: 10-24-2024 Bamboo flowsheet Delvis Kt DO Work Phone: [facility] Start: 10-24-2024 End: 10-26-2024 Bamboo flowsheet Delvis Kt DO Work Phone: [facility] Start: 10-24-2024 End: 10-26-2024 External Result Encounter Delvis Kt DO Work Phone: [facility] External Department Unsolicited Start: 10-11-2024 End: 10-11-2024 Office outpatient visit 15 minutes Mike Wagner MD Work Phone: [facility] Comment on above: Acute non-recurrent [...] Available Start: 09-26-2024 End: 09-26-2024 flow sheet Delivs Kt DO Work Phone: [facility] Comment on above: First trimester [...] Start: 08-19-2023 End: 08-19-2023 ambulatory Amanda Abraham Facility:[facility] Start: 05-22-2023 End: 05-22-2023 ambulatory MD Sarah Nevarez Work Phone: [facility] Work Phone: Start: 05-22-2023 End: 05-22-2023 Registered Recurring MD Sarah Nevarez Work Phone: [facility] Work Phone: Start: 04-07-2023 End: [...] 01-21-2023 ambulatory MD Sarah Nevarez Work Phone: [facility] Work Phone: Start: 01-21-2023 End: 01-21-2023 Registered Recurring MD [facility] Work [facility]: Start: 01-13-2023 [...] Registered Recurring MD Amanda Rosario Work Phone: [facility] Start: 06-16-2022 End: 06-16-[address] DELVIS MERAZ . Facility:[facility] Start: 04-09-[address] AMANDA ROSARIO Facility :[facility] Start: 06-22-2021 Chart Update Price Girard Work Phone: [facility] Work Phone: Start: 06-18-2021 [facility] Start: 05-30-2021 Postop follow up vis it related to original px Price Girard Work Phone: MD-Zoybaxj-Shbnc Main Work Phone: Procedures Date Procedure Procedure [...] AM EST Routine [facility] [address] [place] [id number] Delvis Meraz, DO [address] [address] [facility] Start: 11-28-2024 End: 11-28-2024 Patient encounter procedure 11/28/2024 2:10 PM EST Routine [facility] [address] [place] [id number] Delvis Meraz, DO [address] [place] [address] [facility] Start: 10-24-2024 End: 10-24-2024 Patient encounter procedure 10/24/2024 2:10 PM EST Routine [facility] [address] [place] [phone] Delvis eMraz, [address] [place] [address] [facility] Start: 10-24-2024 End: 10-24-2025 Alpha fetoprotein, maternal Alpha fetoprotein, maternal Lab Routine Second trimester 16 weeks gestation of Expected: 10/24/2024 (Approximate), Expires: 10/24/2025 [facility] Comment on above: Expected: 10/24/2024 (Approximate), Expires: 10/24/2025 Start: 10-24-2024 End: 10-24-2025 US for US OB ANATOMY SINGLE W US OB CERVICAL LENGTH Imaging Routine Screening, , for anatomic survey Expected: 10/24/2024 (Approximate), Expires: 10/24/2025 [facility] Comment on above: Expected: 10/24/2024 (Approximate), Expires: 10/24/2025 Start: 09-26-2024 End: 09-26-2024 Patient encounter procedure 09/26/2024 2:20 PM EST Routine [facility] [address] [place] [phone] Delvis Meraz, [address] [address] [facility] Start: 08-26-2024 End: 08-26-2025 ABO/Rh [...] first trimester Expected: 08/26/2024 (Approximate), Expires: 08/26/2025 [facility] Comment on above: Expected: 08/26/2024 (Approximate), Expires: 08/26/2025 Start: 08-26-2024 End: 08-26-2025 US Pelvis transvaginal US OB transvaginal Imaging Routine Missed menses Expected: 08/26/2024 (Approximate), Expires: 08/26/2025 [facility] Comment on above: Expected: 08/26/2024 (Approximate), Expires: 08/26/2025 Start: 08-26-2024 End: 08-26-2024 ambulatory 08/26/2024 10:00 AM EDT Initial [facility] [address] [place] [address] [facility] Start: 08-26-2024 End: 08-26-2024 Professional / ancillary services management 08/26/2024 9:30 AM EDT Ancillary Procedure [facility] [address] [place] [phone] [facility] Start: 08-23-2024 End: 08-23-2024 Patient encounter procedure 08/23/2024 10:50 AM EDT Routine [facility] [address] [place] [address] Delvis Meraz, [address] [place] [address] Arrived [facility] Comment on above: Arrived Start: 07-24-2024 Influenza vaccination Influenz a Vaccine (#1) [facility] Start: 05-23-2022 [facility] Start: 04-25-2022 [facility] Start: 03-28-2022 [facility] Start: 02-28-2022 [facility] Start: 01-31-2022 [facility] Start: 01-28-2022 [facility] Start: 12-31-2021 [facility] Start: 12-24-2021 [facility] Start: 11-29-2021 [facility] Start: 11-01-2021 [facility] Start: 10-28-2021 [facility] Start: 10-02-2021 End: 10-03-2021 [facility] Start: 09-06-2021 [facility] Start: 09-03-2021 [facility] Start: 08-08-2021 [facility] Start: 07-11-2021 [facility] Adrenocorticotropic hormone measurement [facility] Bacteria identified in Urine by Culture Urine culture Microbiology Routine Missed menses Ordered: 08/26/2024 [facility] Comment on above: Ordered: 08/26/2024 Bacteria identified in Urine by Culture Urine culture Microbiology Routine Hematuria, unspecified type Ordered: 10/24/2024 [facility] Comment on above: Ordered: 10/24/2024 CBC W Auto Different ial panel - Blood CBC and differential Lab Routine Missed menses , unspecified gestational age Ordered: 08/26/2024 [facility] Comment on above: Ordered: 08/26/2024 CHLAMYDIA TRACHOMATI S (GENITO/STI) CHLAMYDIA TRACHOMATIS (GENITO/STI) Lab Routine STD exposure Ordered: 10/24/2024 [facility] Comment on above: Ordered: 10/24/2024 Comprehensive metabo lic 1999 panel - Serum or Plasma [facility] Work Phone: Comprehensive metabo lic 1999 panel - Serum or Plasma [facility] Comprehensive metabo lic 1999 panel - Serum or Plasma [facility] Comprehensive metabo lic 1999 panel - Serum or Plasma [facility] CT Abdomen and Pelvi s W contrast IV [facility] Work Phone: CT Abdomen and Pelvi s W contrast IV [facility] CT Abdomen and Pelvi s W contrast IV [facility] CT Chest W contrast IV [facility] Work Phone: CT Chest W contrast IV [facility] CT Chest W contrast IV [facility] Ferritin [Mass/volum e] in Serum or Plasma [facility] Work Phone: Hemoglobin A1c/Hemoglobin.total in Blood Hemoglobin A1c Lab Routine Missed menses , unspecified gestational age Ordered: 08/26/2024 [facility] Comment on above: Ordered: 08/26/2024 Hepatitis B virus blevins rface Ag [Presence] in Serum or Plasma by Immunoassay Hepatitis B surface antigen Lab Routine Missed menses , unspecified gestational age Ordered: 08/26/2024 [facility] Comment on above: Ordered: 08/26/2024 Hepatitis C virus Ab [Presence] in Serum or Plasma by Immunoassay Hepatitis C antibody Lab Routine Missed menses , unspecified gestational age Ordered: 08/26/2024 [facility] Comment on above: Ordered: 08/26/2024 HIV-1/HIV-2 antigen/ antibody combination immunoassay HIV-1 and HIV-2 antibodies Lab Routine Missed menses , unspecified gestational age Ordered: 08/26/2024 [facility] Comment on above: Ordered: 08/26/2024 Lactate dehydrogenas e [Enzymatic activity/volume] in Unspecified specimen [facility] Work Phone: Neisseria gonorrhoea e DNA [Presence] in Unspecified specimen by PARMINDER with probe detection Neisseria gonorrhea DNA probe, direct Lab Routine STD exposure Ordered: 10/24/2024 [facility] Comment on above: Ordered: 10/24/2024 Reagin Ab [Presence] in Serum by RPR RPR Lab Routine Missed menses , unspecified gestational age Ordered: 08/26/2024 [facility] Comment on above: Ordered: 08/26/2024 Rubella antibody, IgG Rubella an tibody, IgG Lab Routine Missed menses , unspecified gestational age Ordered: 08/26/2024 [facility] Comment on above: Ordered: 08/26/2024 SURESWAB(R) ADVANCED VAGINITIS PLUS, TMA SURESWAB(R) ADVANCED VAGINITIS PLUS, TMA Pathology and Cytology Routine Vaginal discharge Ordered: 10/24/2024 [facility] Work Phone: Comment on above: Ordered: 10/24/2024 Thyrotropin [Units/v olume] in Serum or Plasma [facility] Thyroxine (T4) free [Mass/volume] in Serum or Plasma [facility] Triiodothyronine (T3 ) Free [Mass/volume] in Serum or Plasma [facility] Work Phone: [facility] Immunizations Immunization Date Immunization Notes Care Provider [facility] 07-09-2018 influenza virus vaccine, unspecified formulation Generic Provider [facility] 1997 pneumococcal conjuga te vaccine, 7 valent 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 Payers Date Payer Category Payer Unknown [id number] 2022 Blue Cross Blue Shield [id number] 2022 Unknown 2021 Self-pay [id number] 2021 Unknown [id number] 2021 Unknown [id number] 2019 Unknown [id number] 1997 Unknown [id number] 2.16.84 0.1.528114.3.579.2.593 1997 Unknown [id number] 2.16.84 0.1.503108.3.579.2.593 1997 Unknown [id number] 2.16.84 0.1.684335.3.579.2.593 1997 Unknown [id number] 2.16.84 0.1.660112.3.579.2.593 1997 Unknown [id number] 2.16.84 0.1.523512.3.579.2.593 1997 Unknown [id number] 2.16.84 0.1.414740.3.579.2.593 1997 Unknown [id number] 2.16.84 0.1.504058.3.579.2.593 1997 Unknown [id number] 2.16.84 0.1.198385.3.579.2.593 1997 Unknown [id number] 2.16.84 0.1.373132.3.579.2.593 1997 Unknown [id number] 2.16.84 0.1.562489.3.579.2.593 1997 Unknown [id number] 2.16.84 0.1.147936.3.579.2.1258 1997 Unknown [id number] 2.16.84 0.1.696919.3.579.2.1258 1997 Unknown [id number] 2.16.84 0.1.935442.3.579.2.1258 1997 Unknown [id number] 2.16.84 0.1.251313.3.579.2.1258 1997 Unknown [id number] 2.16.84 0.1.184090.3.579.2.1258 1997 Unknown [id number] 2.16.84 0.1.799414.3.579.2.1258 1997 Unknown [id number] 2.16.84 0.1.748629.3.579.2.1258 1959 Unknown [id number] 1959 Unknown [id number] Unknown [id number] 2.16.8 40.1.686977.3.579.2.531 Social History Date Type Detail Facility Start: 06-18-2021 Dept. 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 Start: 1995 Sex Assigned At Female [facility] Start: 07-08-2022 End: 04-10-2023 Tobacco smoking status NHIS Never smoked tobacco (finding) [facility] Start: 04-10-2023 Tobacco use and exposure Smokeless tobacco non-user [facility] Start: 02-22-2024 End: 10-11-2024 Alcoholic beverage intake Ex-drinker (finding) [facility] Start: 02-22-2024 End: 10-11-2024 History of Social function [facility] Start: 02-22-2024 End: 10-11-2024 Social connection and isolation panel [facility] Do you belong to any clubs or organizations such as anabaptist groups, unions, fraternal or athletic groups, or [...] Narrative Reason for Appointment: Patient ID: Ailyn Resenidz is a 29 y.o. female who presents [...] nursing note reviewed. Exam conducted with a poultry hatchery man present. Vitals: Estimated body mass index is [...] Delvis Meraz DO documented in this encounter [facility] 10-24-2024 History of Presen t illness Narrative [...] nursing note reviewed. Exam conducted with a poultry hatchery man present. Vitals: Estimated body mass index is [...] Delvis Meraz DO documented in this encounter [facility] 10-11-2024 History of Presen t illness Narrative [...] 300 MG capsule documented in this encounter [facility] 09-26-2024 History of Presen t illness Narrative [...] nursing note reviewed. Exam conducted with a poultry hatchery man present. Vitals: Estimated body mass index is [...] or undercooked meat, and stay away from [facility]. Patient has been consulted regarding any [...] Amanda Gonzalez PA-C documented in this encounter [facility] 08-26-2024 History of Presen t illness Narrative [...] or undercooked meat, and stay away from [facility]. Patient has also been advised to [...] by: Jasmyne Segura documented in this encounter [facility] 05-23-2023 Progress note Note Date/Time May 22, 2023 9:03[facility] [place] [address] Hem/Onc Follow Up Note - OP Signed Patient: Ailyn Resendiz MR#: [id number] : 1995 Acct:[id number] Age/Sex: 27 / F Type: REG RCR [...] of restaging CT CAP by phone with SENIOR PHYSICAL THERAPIST in October--no evidence of recurrence. Saw dermatology [...] dyspepsia. We will coordinate parenteral iron at [facility] per her request. Normal thyroid, cortisol,and CMP [...] trauma. She was seen by dermatology at [facility] in [place] and underwent a biopsy of the right [...] 3. Venofer for iron deficiency anemia at [facility] 03/2022 ROS Details: All systems reviewed & [...] Mild Nivolumab infusion reaction in February 2022. [facility] - History Attestation statement: The following [...] DAILY PRN Anxiety 06/18/21 [History Confirmed 05/22/23] [id number]-ulbx-HF-[id number] 3-fat com #1 27 mg-1 mg-300 mg [...] Creatinine Clear 154.92, Sodium 136, Potassium 4.2, Ykbnqmme278, Carbon Dioxide 26.1, Anion Gap 10.1, BUN [...] % (Auto) 79.8, Lymph % (Auto) 12.8, [place] % (Auto) 6.4, Eos % (Auto) 0.6, Baso % (Auto) 0.4, Nucleat RBC Rel Count 0.2, Neut # (Auto) 8.2 H, Lymph # (Auto) 1.3, [place] # (Auto) 0.7, Eos # (Auto) 0.1, [...] 4% with ferritin 7. Coordinated Venofer infusionsat [facility] (300mg IV x 3 doses) 03/2022 with followup CBC, serum iron profile, and ferritin in one month. Consider GI evaluation for iron deficiency. 07/09/2022: She is doing well on oral iron recommended by her counter helper. She does not plan to have children anytime soon, but discussed with her counter helper the best iron supplementation to be on [...] for coordination of care (as documented) and [id number]-zm-[id number] counseling of patient and/or family. Dictated By: Amanda Rosario MD DD/ 09 Signed By: <Electronically signed by MD Amanda Rosario> 05/23/23 [id number] [facility] Work Phone: 1(682) 972-462703-01-2023 Progress note Author Amanda Rosario [facility] January 21, 2023 8:51pm Note Date/Time January 21, 2023 3:01 pm [facility] [place] [address] Hem/Onc Follow Up Note - OP Signed Patient: Ailyn Resendiz MR#: [id number] : 1995 Acct:[id number] Age/Sex: 27 / F Type: REG RCR Copies to: MD Mike Ewing MD~ Subjective Date/Time of Service: Date of Service: 01/21/2023 Time of Service: 15:00 Chief Complaint: Patient is here today for a 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 No new concerns HPI: 01/21/2023: Ailyn had review of restaging CT CAP by phone with SENIOR PHYSICAL THERAPIST in October--no evidence of recurrence. Saw dermatology [...] dyspepsia. We will coordinate parenteral iron at [facility] per her request. Normal thyroid, cortisol,and CMP [...] trauma. She was seen by dermatology at [facility] in [place] and underwent a biopsy of the right [...] 3. Venofer for iron deficiency anemia at [facility] 03/2022 ROS Details: All systems reviewed & [...] DAILY PRN Anxiety 06/18/21 [History Confirmed 01/21/23] CIN-vjnl-SR-omega 3-fat com #1 27 mg-1 mg-300 mg [...] 4% with ferritin 7. Coordinated Venofer infusionsat [facility] (300mg IV x 3 doses) 03/2022 with followup CBC, serum iron profile, and ferritin in one month. Consider GI evaluation for iron deficiency. 07/09/2022: She is doing well on oral iron recommended by her counter helper. She does not plan to have children anytime soon, but discussed with her counter helper the best iron supplementation to be on [...] for coordination of care (as documented) and qmzt-gp-ldad counseling of patient and/or family. Dictated By: Amanda Rosario MD DD/ 1500 Signed By: <Electronically signed by MD Amanda Rosario> 01/21/232050 [facility] Work Phone: 1(337) 516-419908-17-2022 Progress note Author Ale Malone [facility] July 09, 2022 1:35pm Note Date/Time July 08, 2022 1: 31pm [facility] [place] [address] Hem/Onc Follow Up Note - OP Signed with Addenda Patient: Ailyn Resendiz MR#: [id number] : 1995 Acct:[id number] Age/Sex: 27 / F Type: REG RCR [...] dyspepsia. We will coordinate parenteral iron at [facility] per her request. Normal thyroid, cortisol,and CMP [...] trauma. She was seen by dermatology at [facility] in [place] and underwent a biopsy of the right [...] % (Auto) 61.2, Lymph % (Auto) 26.6, [place] % (Auto) 9.7, Eos % (Auto) 1.2, Baso % (Auto) 1.3, Neut # (Auto) 3.4, Lymph # (Auto) 1.5, [place] # (Auto) 0.5, Eos# (Auto) 0.1, Baso [...] ferritin 7. Will have Venofer infusions at [facility] (300mg IV x 3 doses) with followup CBC, serum iron profile,and ferritin in one month. Consider GI evaluation for iron deficiency. 07/09/2022: She is doing well on oral iron recommended by her counter helper. She does not plan to have children anytime soon, but discussed with her counter helper the best iron supplementation to be on [...] for coordination of care (as documented) and czzy-di-pcnb counseling of patient and/or family. Dictated By: Ale Malone APRN DD/ 1331 Signed By: <Electronically signed by KIKI Malone> 07/09/22 0958 [facility] Work Phone: [phone]) 311-119905-12-2022 Progress note Author Amanda Rosario [facility] April 03, 2022 8:56pm Note Date/Time April 02, 2022 8:30p m [facility] [place] [address] Hem/Onc Follow Up Note - OP Signed Patient: Ailyn Resendiz MR#: [id number] : 1995 Acct:[id number] Age/Sex: 26 / F Type: REG RCR [...] dyspepsia. We will coordinate parenteral iron at [facility] per her request. Normal thyroid, cortisol,and CMP [...] trauma. She was seen by dermatology at [facility] in [place] and underwent a biopsy of the right [...] Creatinine Clear 115.14, Sodium 136, Potassium 4.1, Sznztwmu779, Carbon Dioxide 24.5, BUN 9, Creatinine 0.76, [...] % (Auto) 46.7, Lymph % (Auto) 30.6, [place] % (Auto) 20.8, Eos % (Auto) 0.9, Baso % (Auto) 1.0, Neut # (Auto) 1.6 L, Lymph # (Auto) 1.1, [place] # (Auto) 0.7, Eos # (Auto) 0.0, [...] ferritin 7. Will have Venofer infusions at [facility] (300mg IV x 3 doses) with followup [...] for coordination of care (as documented) and wngm-sd-tkmg counseling of patient and/or family. Dictated By: Amanda Rosario MD DD/ 28 Signed By: <Electronically signed by MD Amanda Rosario> 04/03/222055 [facility] Work Phone: 1([phone]) 525-819802-23-2022 Progress note Author Amanda Rosario [facility] January 15, 2022 9:15pm Note Date/Time January 15, 2022 11:55am [facility] [place] [id number] Hem/Onc Follow Up Note - OP Signed Patient: Ailyn Kang MR#: [id number] : 1995 Acct:[id number] Age/Sex: 26 / F Type: REG RCR [...] trauma. She was seen by dermatology at [facility] in [place] and underwent a biopsy of the right [...] for coordination of care (as documented) and tpxm-ed-chpv counseling of patient and/or family. Dictated By: Amanda Rosario MD DD/ 1155 Signed By: <Electronically signed by MD Amanda Rosario> 01/15/22 2115 [facility] Work Phone: 1(760) 914-822811-11-2021 Progress note Author Denia Alvares [facility] October 03, 2021 10:47am Note Date/Time October 03, 2021 10:34am [facility] [place] [address] Hem/Onc Follow Up Note - OP Signed Patient: Ailyn Kang MR#: [id number] : 1995 Acct:[id number] Age/Sex: 26 / F Type: REG RCR [...] trauma. She was seen by dermatology at [facility] in [place] and underwent a biopsy of the right [...] Creatinine Clear 112.19, Sodium 139, Potassium 4.1, Njrbbzwq599, Carbon Dioxide 26.4, BUN 9, Creatinine 0.78, [...] % (Auto) 66.7, Lymph % (Auto) 23.1, [place] % (Auto) 8.3, Eos % (Auto) 1.0, Baso % (Auto) 0.9, Neut # (Auto) 5.0, Lymph # (Auto) 1.7, [place] # (Auto) 0.6, Eos# (Auto) 0.1, Baso [...] month surveillance ultrasounds. Follow up with Dr. Rosraio in ~ 3 months; sooner if new [...] for coordination of care (as documented) and fspn-in-cvwt counseling of patient and/or family. Dictated By: Denia Alvares APRN DD/ 1025 Signed By: <Electronically signed by KIKI Alvares> 10/03/21 1047 [facility] Work Phone: 1(809) 678-832608-27-2021 Progress note Author Amanda Rosario [facility] July 19, 2021 12:54pm Note Date/Time July 18, 2021 2: 10pm [facility] [place] [address] Hem/Onc Follow Up Note - OP Signed Patient: Ailyn Kang MR#: [id number] : 1995 Acct:[id number] Age/Sex: 26 / F Type: REG RCR [...] trauma. She was seen by dermatology at [facility] in [place] and underwent a biopsy of the right [...] Negative for environmental allergies and food allergies. 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 Dictated By: Amanda Rosario MD DD/ 1409 Signed By: <Electronically signed by MD Amanda Rosario> 07/19/21 9745 [facility] Work Phone: 1([phone]) 386-574508-03-2021 Consult note Author Amanda Rosario [facility] June 24, 2021 10:09pm Note Date/Time June 24, 2021 2:1 8pm [facility] [place] [address] Hem/Onc Consult Note - OP Signed Patient: Ailyn Kang MR#: [id number] : 1995 Acct:[id number] Age/Sex: 26 / F Type: REG RCR [...] trauma. 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 Note Recipients: Price Girard MD - [phone] [] Cassy Bettina NALDO Nava - [phone] [] Attestation: Note Completion: Attending AttestationI performed the procedure without a resident Electronic Signatures: Sarah Nevarez) (Signed 17-May-2021 18:18) Authored: Post-Operative Note, Chart Review, Note Completion Last Updated: 17-May-2021 18:18 by Sarah Nevarez)[facility] 05-17-2021 History of Present illness Aynbudqch59-upyt-tiq woman who underwent wide excision right posterior calf melanoma with [place] flap reconstruction as well as right inguinal and iliac sentinel lymph node biopsy on 05/17/2021. Pathology report has not yet resulted. She is recovering well.[facility] Work Phone: 1([phone]) 467-664706-25-2021 History of Present illness Narrative 25-year-old woman who underwent wide excision right posterior calf melanoma with [place] flap reconstruction as well as right inguinal and iliac sentinel lymph node biopsy on 05/17/2021. Pathology report has not yet resulted. She is recovering well.[facility] Work Phone: [phone]) [phone] NoteHistory & Physical Reviewed: /Lactating: Are You [...] Patient Profile - Preop v2 17-May-2021 09:27[facility]06-22-2021 NoteAccession #: [id number] Pathologist: ANUJA OLIVO MD Date of Procedure: 05/14/2021 Date Received: 05/14/2021 Submitting Physician: SARAH NEVAREZ MD Location: [facility] Copy To/Referring/Attending: ROLY EDGE DO FINAL DIAGNOSIS 2 SLIDES, [facility] #[id number] (BX: 04/23/2021) SKIN, RT POST LEG, SHAVE [...] MD. CANCER SUMMARY REPORT A. 2 SLIDES, [facility] #[id number] (BX: 04/23/2021): SPECIMEN Procedure: Biopsy, shave Specimen [...] report. Primary Tumor (pT): pT3b ADDITIONAL TESTING LANCE CREWMEMBER BLOCKS: Tumor Block: CSPL slide [id number] Electronically Signed Out By ANUJA OLIVO MD/BRR Microscopic Description: Microscopic examination performed. Clinical History: SHAVE/ BCC VS MM VS PG 1.9 X 1.9CM Specimens Submitted As: A: 2 SLIDES, [facility] #[id number] (BX: 04/23/2021) Gross Description: Received for consultation from [facility] are two slides labeled [id number] (BX: 04/23/2021) along with the corresponding pathology report. Slide/Block Description 2 SLIDES, [id number]. Keep Slides: N Slides Returned: N Personal Consult[facility] ServicesComment on above:Performed By: #### D #### DermatopathologyEvaluation noteN/ADept. 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 Evaluation note* Diagnosis Onset Date Resolution Status Iron deficiency anemia acute Chiari malformation type I c hronic Edema of right lower extremity chronic Encounter for antineoplastic immunotherapy chronic Malignant melanoma of right lower leg chronic [facility] Work Phone: Evaluation note* Diagnosis Onset Date Resolution Status Chiari malformation type I c hronic Edema of right lower extremity chronic Encounter for antineoplastic immunotherapy chronic Iron deficiency anemia chron ic Malignant melanoma of right lower leg chronic [facility] Work Phone: Evaluation noteNo assessment information available [facility] Work Phone: Evaluation note* Diagnosis Missed menses [...] Hematuria, unspecified type documented in this encounter [facility] HealthcareEvaluation note* Diagnosis Acute non-recurrent pansinusitis- Primary Second trimester state, incidental Malignant melanoma of right lower limb, including hip (CMS/HCC) documented in this encounter [facility] HealthcareEvaluation note* Diagnosis Acute non-recurrent pansinusitis- Primary Second trimester state, incidental Malignant melanoma of right lower limb, including hip (CMS/HCC) Second trimester state, incidental 21 weeks gestation of documented in this encounter [facility] Dis[facility] instructionsAmbulatory Orders* RISE Order Time Frame: 1 Day, Location: Determined By Patient * Survivourship Follow Up Time Frame: 3 Months, Location: Determined By Patient [facility] Work Phone: Progress note Author Ale Malone [facility] July 09, 2022 1:35pm Note Date/Time July 08, 2022 1: 31pm [facility] [place] [address] Hem/Onc Follow Up Note - OP Signed with Addenda Patient: Ailyn Resendiz MR#: [id number] : 1995 Acct:[id number] Age/Sex: 27 / F Type: REG RCR [...] dyspepsia. We will coordinate parenteral iron at [facility] per her request. Normal thyroid, cortisol,and CMP [...] trauma. She was seen by dermatology at [facility] in [place] and underwent a biopsy of the right [...] % (Auto) 61.2, Lymph % (Auto) 26.6, [place] % (Auto) 9.7, Eos % (Auto) 1.2, Baso % (Auto) 1.3, Neut # (Auto) 3.4, Lymph # (Auto) 1.5, [place] # (Auto) 0.5, Eos# (Auto) 0.1, Baso [...] ferritin 7. Will have Venofer infusions at [facility] (300mg IV x 3 doses) with followup CBC, serum iron profile,and ferritin in one month. Consider GI evaluation for iron deficiency. 07/09/2022: She is doing well on oral iron recommended by her counter helper. She does not plan to have children anytime soon, but discussed with her counter helper the best iron supplementation to be on [...] for coordination of care (as documented) and ceio-sv-wcnd counseling of patient and/or family. Dictated By: Ale Malone APRN DD/ 1331 Signed By: <Electronically signed by KIKI Malone> 07/09/22 4523 [facility] Work Phone: Progress note Author Amanda Rosario [facility] January 21, 2023 8:51pm Note Date/Time January 21, 2023 3:01 pm [facility] [place] [facility] [place] [id number] Hem/Onc Follow Up Note - OP Signed Patient: Ailyn Resendiz MR#: [id number] : 1995 Acct:[id number] Age/Sex: 27 / F Type: REG RCR Copies to: MD Mike Ewing MD~ Subjective Date/Time of Service: Date of Service: 01/21/2023 Time of Service: 15:00 Chief Complaint: Patient is here today for a 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 No new concerns HPI: 01/21/2023: Ailyn had review of restaging CT CAP by phone with SENIOR PHYSICAL THERAPIST in October--no evidence of recurrence. Saw dermatology [...] dyspepsia. We will coordinate parenteral iron at [facility] per her request. Normal thyroid, cortisol,and CMP [...] trauma. She was seen by dermatology at [facility] in [place] and underwent a biopsy of the right [...] 3. Venofer for iron deficiency anemia at [facility] 03/2022 ROS Details: All systems reviewed & [...] Mild Nivolumab infusion reaction in February 2022. [facility] - History Attestation statement: The following [...] DAILY PRN Anxiety 06/18/21 [History Confirmed 01/21/23] SHE-tngz-DI-omega 3-fat com #1 27 mg-1 mg-300 mg [...] 4% with ferritin 7. Coordinated [facility]er infusionsat [facility] (300mg IV x 3 doses) 03/2022 with followup CBC, serum iron profile, and ferritin in one month. Consider GI evaluation for iron deficiency. 07/09/2022: She is doing well on oral iron recommended by her counter helper. She does not plan to have children anytime soon, but discussed with her counter helper the best iron supplementation to be on [...] for coordination of care (as documented) and pmcr-dl-ghaw counseling of patient and/or family. Dictated By: Amanda Rosario MD DD/ 1500 Signed By: <Electronically signed by MD Amanda Rosario> 01/21/232050 [facility] Work Phone: Reason for referral (narrative)* [...] DATE CREATED AUTHOR AUTHOR'S ORGANIZ ATION 06/18/2021 [facility] DATE CREATED AUTHOR AUTHOR'S ORGANIZ ATION 08/01/2021 [facility] DATE CREATED AUTHOR AUTHOR'S ORGANIZ ATION 01/18/2022 [facility] DATE CREATED AUTHOR AUTHOR'S ORGANIZ ATION 04/08/2023 [facility] DATE CREATED AUTHOR AUTHOR'S ORGANIZ ATION 09/25/2024 [facility] DATE CREATED AUTHOR AUTHOR'S ORGANIZ ATION 12/04/2024 [facility] EPIC Care Teams (unrecognized sec tion and content) Team Status: Active Member Role Status Dates Mike Wagner MD Primary Care Provider Active Team Status: Active Member Role Status Dates Amanda Rosario MD Attending Provider Active Sarah Nevarez MD Referring Provider Active Mike Wagner MD Primary Care Provider Active Deodorizer Operator Relationship Specialty Start Date End Date Mike Wagner MD [address] [place] [address] PCP - General Family Medicine 02/09/24 Shaikh Melendrez MD [address] [place] [address] PCP - [facility] 08/23/23 Deodorizer Operator Relationship Specialty Start Date End Date Mike Wagner MD [address] [place] [address] PCP - General Family Medicine 02/09/24 Shaikh Melendrez MD [address] [place] [address] PCP - [facility] [employer] 08/23/23 Deodorizer Operator Relationship Specialty Start Date End Date Mike Wagner MD [address] [place] [address] PCP - General Family Medicine 02/09/24 Shaikh Melendrez MD [address] [place] [address] PCP - [facility] [employer] 08/23/23 Deodorizer Operator Relationship Specialty Start Date End Date Mike Wagner MD [address] [place] [address] PCP - General Family Medicine 02/09/24 Melissa Zhou NP [address] [place] [address] PCP - [facility] [employer] 08/23/24 Deodorizer Operator Relationship Specialty Start Date End Date Mike Wagner MD [address] [place] [address] PCP - General Family Medicine 02/09/24 Melissa Zhou NP [address] [place] [address] PCP - [facility] [employer] 08/23/24 Deodorizer Operator Relationship Specialty Start Date End Date Mike Wagner MD [address] [place] [address] PCP - General Family Medicine 02/09/24 Melissa Zhou NP [address] [place] [address] PCP - [facility] [employer] 08/23/24 Deodorizer Operator Relationship Specialty Start Date End Date Mike Wagner MD [address] [place] [address] PCP - General Family Medicine 02/09/24 Melissa Zhou NP [address] [place] [address] PCP - [facility] [employer] 08/23/24 Deodorizer Operator Relationship Specialty Start Date End Date Mike Wagner MD [address] [place] [address] PCP - General Family Medicine 02/09/24 Melissa Zhou NP [address] [place] [address] PCP - [facility] [employer] 08/23/24 Deodorizer Operator Relationship Specialty Start Date End Date Mike Wagner MD [address] [place] [address] PCP - General Family Medicine 02/09/24 Shaikh Melendrez MD [address] [place] [address] PCP - [facility] [employer] 08/23/23 Deodorizer Operator Relationship Specialty Start Date End Date Mike Wagner MD [address] [place] [address] PCP - General Family Medicine 02/09/24 Melissa Zhou NP [address] [place] [address] PCP - [facility] [employer] 08/23/24 Goals (unrecognized section and content) [...] BE BASED ON THE PRIMARY CLINICAL RECORDS. [employer] [facility]. provides no warranty or guarantee of the accuracy or completeness of information in this document.
== END 2024-12-24 10:07 | disposition home or self-care (01) ==
LOC: ER 12-27 07:23
PROVIDERS: Emergency Provider Emergency Medicine; PCP Family Medicine
DX: O23.42 Unspecified infection of urinary tract in pregnancy, second trimester (principal); N39.0 Urinary tract infection, site not specified; O99.891 Other specified diseases and conditions complicating pregnancy; R10.9 Unspecified abdominal pain; Z3A.25 25 weeks gestation of pregnancy
CPT/HCPCS: 81001; 99283

== ENCOUNTER 2024-12-26 15:23 | Outpatient (OUT) | payer BC, SELFPAY ==
--- NOTE | 2024-12-26 15:25 | US_ITS ---
[address] [address] Patient Name: BRADY BARON MRN: [id number] date: 1995 Sex: F Assigned Patient Location: Current Patient Location: .[facility] Accession/Order Number: [id number] Exam Date: 12/26/2024 15:30 Report Date: 12/27/2024 09:21 At the request of: CRUZ JOHNSON Procedure: US OB cervical length EXAMINATION: US OB cervical length HISTORY: Screening For Cervical Length COMPARISON: Ultrasound OB incomplete anatomy 12/15/2024, ultrasound OB cervical length 11/18/2024 TECHNIQUE: Transabdominal and transvaginal sonographic examination for cervical length. FINDINGS: CERVIX LENGTH: 4.7 cm; closed. Lower margin of posterior placenta is 4.3 cm from internal os. POSITION: Breech HEART RATE: 157 bpm OTHER: Prominent renal pelvis is again seen; 0.6 cm on right, 0.5 cm on left. Fluid-filled stomach. Age by EDC: 25 weeks 4 days ELIE by EDC: 04/06/2025 US/US OB cervical length IMPRESSION: 1. Single live intrauterine . 2. Closed cervix 4.7 cm in length. 3. Prominent fluid-filled stomach and slightly prominent renal pelvis bilaterally. Electronically authenticated by: MORE FARLEY Date: 12/27/2024 09:21
--- OUTSIDE RECORDS SUMMARY | 2024-12-26 15:30 | XMS_ITS | CCD ---
Author Organization [facility] Care Team Providers Care Director Education Name Role Phone Price Girard Unavailable Unavailable Unavailable Essence Blevins Unavailable Unavailable MD Amanda Rosario Attending Provider [phone] MD Sarah Nevarez Referring Provider MD Mike Wagner Primary Care Provider MD Amanda Rosario Attending Provider MD Sarah Nevarez Referring Provider MD Mike Wagner Primary Care Provider KT [...] Provider Mike Wagner MD Primary Care Provider [phone] Aneesh NOE, Flores Unavailable Amanda Rosario Attending Unavailable Amanda Rosario Admitting Unavailable Sarah Nevarez Referring Unavailable Mike Wagner Primary Care Unavailable Abelardo DISTRICT SERVICE MANAGER, Melissa Unavailable DELVIS MERAZ Attending Unavailable MELISSA [...] Take 1 tablet by mouth Daily Active Yxz-Ofpw-Ko-[place] 3-Fat Com #1 (Pre-Jeanette Multivitamins/Min erals) 27-1-300 mg Capsule (4 sources) Start: 01-21-2023 Uhb-Vbpo-Pn-[place] 3-Fat Com #1 (Pre-Jeanette Multivitamins/Mine rals) 27-1-300 mg Capsule Active CAP PO January 21, 2023 1:00am Start: 01-21-2023 Fef-Sfsj-Lg-Om ega 3-Fat Com #1 (Pre-Jeanette Multivitamins/Minerals) 27-1-300 [...] UA Negative Negative - 4(70) +++ mg/dL [facility] Blood, UA Positive Negative - 50 Naveed/mcL [facility] Comment on above: trace Clarity, UA Clear [facility] Color, UA Yellow [facility] Glucose, UA Negative Negative - 2000(110) ++++ mg/dL [facility] Interpretation and review of laboratory results Abnormal [facility] Ketones, UA Negative Negative - 160(16) ++++ mg/dL [facility] Leukocytes, UA Negative Negative - 500+++ José Luis/mcL [facility] Nitrite, UA Negative Negative - Positive [facility] pH, UA 6.5 5 - 9 [facility] Protein, UA Negative Negative - 2000(20) ++++ mg/dL [facility] Spec Grav, UA 1.025 1 - 1.03 [facility] Urobilinogen, UA 0.2 0.2 - 12 mg/dL [facility] No Panel Informationon 10-26 STAPHYLOCOCCUS EPIDERMIDIS, HAEMOLYTICUS, LUGDUNENSIS, SAPROPHYTICUS (URINA 0 [facility] STAPHYLOCOCCUS EPIDERMIDIS, HAEMOLYTICUS, LUGDUNENSIS, SAPROPHYTICUS (URINA Not detected [facility] URINARY TRACT INFECTION (HTR X)on 10-26-2024 ACINETOBACTER BAUMANII 0 NO [facility] ACINETOBACTER BAUMANII Not detected [facility] STEVEN ALBICANS, PARAPSILOSIS, TROPICALIS 0 [facility] STEVEN ALBICANS, PARAPSILOSIS, TROPICALIS Not detected [facility] STEVEN GLABRATA 0 [facility] STEVEN GLABRATA Not detected [facility] STEVEN KRUSEI 0 [facility] STEVEN KRUSEI Not detected [facility] CITROBACTER FREUNDII 0 [facility] CITROBACTER FREUNDII Not detected NO [facility] ENTEROBACTER AEROGENES, CLOACAE 0 [facility] ENTEROBACTER [...] detected [facility] PSEUDOMONAS AERUGINOSA 0 NO [facility] PSEUDOMONAS AERUGINOSA Not detected [facility] [...] UA Negative Negative - 4(70) +++ mg/dL [facility] Blood, UA Positive Negative - 50 Naveed/mcL [facility] Clarity, UA Clear [facility] Color, UA Yellow [facility] Glucose, UA Negative Negative - 1999(110) ++++ mg/dL [facility] Interpretation and review of laboratory results Normal [facility] Ketones, UA Negative Negative - 160(16) ++++ mg/dL [facility] Leukocytes, UA Negative Negative - 500+++ José Luis/mcL [facility] Nitrite, UA Negative Negative - Positive [facility] pH, UA 5.5 5 - 9 [facility] Protein, UA Negative Negative - 1999(20) ++++ mg/dL [facility] Spec Grav, UA 1.02 1 - 1.03 [facility] Urobilinogen, UA 1.0 0.2 - 12 mg/dL [facility] Urinalysis macro (dipstick) panel (U)on 09-26-2024 Bilirubin, UA Negative Negative - 4(70) +++ mg/dL [facility] Blood, UA Negative Negative - 50 Naveed/mcL [facility] Clarity, UA Clear [facility] Color, UA Yellow [facility] Glucose, UA Negative Negative - 1999(110) ++++ mg/dL [facility] Interpretation and review of laboratory results Normal [facility] Ketones, UA Negative Negative - 160(16) ++++ mg/dL [facility] Leukocytes, UA Negative Negative - 500+++ José Luis/mcL [facility] Nitrite, UA Negative Negative - Positive [facility] pH, UA 5.5 5 - 9 [facility] Protein, UA Negative Negative - 1999(20) ++++ mg/dL [facility] Spec Grav, UA 1.02 1 - 1.03 [facility] Urobilinogen, UA 0.2 0.2 - 12 mg/dL [facility] MLR HEMOGLOBIN A1Con 024 Glucose [Mass/Vol] 91 mg/dL [facility] HbA1c (Bld) [Mass fraction] 4.8 % 4.5 - 6.2 % [facility] Comment on above: ADA RECOMMENDED LIMI T 4.0 - 6.0 ADA THERAPEUTIC TARGET < 7.0 ACTION SUGGESTED > 7.0 [facility] HCG ( test) Ql (U)o n 08-26-2024 Interpretation and review of laboratory results Abnormal [facility] Preg Test, Ur Positive [facility] Urinalysis macro (dipstick) panel (U)on 08-26-2024 Bilirubin, UA Negative Negative - 4(70) +++ mg/dL [facility] Blood, UA Negative Negative - 50 Naveed/mcL [facility] Clarity, UA Clear [facility] Color, UA Yellow [facility] Glucose, UA Negative Negative - 1999(110) ++++ mg/dL [facility] Interpretation and review of laboratory results Normal [facility] Ketones, UA Negative Negative - 160(16) ++++ mg/dL [facility] Leukocytes, UA Negative Negative - 500+++ José Luis/mcL [facility] Nitrite, UA Negative Negative - Positive [facility] pH, UA 7.0 5 - 9 [facility] Protein, UA Negative Negative - 1999(20) ++++ mg/dL [facility] Spec Grav, UA 1.025 1 - 1.03 [facility] Urobilinogen, UA 0.2 0.2 - 12 mg/dL [facility] PREG QUANT HCGon 024 HCG QUANTITATIVE 1850 mIU/mL [facility] Comment on above: 5-50 0.2-1 WEEK 50-500 1-2 WEEKS 100-5,000 2-3 WEEKS 500-10,000 3-4 WEEKS 1,000-50,000 4-5 WEEKS 10,000-100,000 5-6 WEEKS 15,000-200,000 6-8 WEEKS 10,000-100,000 2-[facility] HCGon 024 HCG QUANTITATIVE 824 mIU/mL [facility] Comment on above: 5-50 0.2-1 WEEK 50-500 1-2 WEEKS 100-5,000 2-3 WEEKS 500-10,000 3-4 WEEKS 1,000-50,000 4-5 WEEKS 10,000-100,000 5-6 WEEKS 15,000-200,000 6-8 WEEKS 10,000-100,000 2[facility] Alanine aminotransferase [En zymatic activity/volume] in Serum or PlasmaOrdered By: Amanda Rosario on 05-20-2023 ALT [Catalytic activity/Vol] 9 U/L 7-52 [facility] Albumin [Mass/volume] in Ser um or Plasma by Bromocresol green (BCG) dye binding methoOrdered By: Amanda Rosario on 05-20-2023 Albumin BCG dye [Mass/Vol] 3.8 g/dL 3.5-5.7 [facility] Alkaline phosphatase [Enzyma tic activity/volume] in Serum or PlasmaOrdered By: Amanda Rosario on 05-20-2023 ALP [Catalytic activity/Vol] 52 U/L 34-104 [facility] Aspartate aminotransferase [ Enzymatic activity/volume] in Serum or PlasmaOrdered By: Amanda Rosario on 05-20-2023 AST [Catalytic activity/Vol] 14 U/L 13-39 [facility] Basophils Auto (Bld) [#/Vol] Ordered By: Amanda Rosario on 05-20-2023 Basophils (Bld) [#/Vol] 0.0 10*3/uL 0.0-0.2 [facility] Basophils/100 WBC Auto (Bld) Ordered By: Amanda Rosario on 05-20-2023 Basophils/100 WBC (Bld) 0.4 % . [facility] Bilirubin.total [Mass/volume ] in Serum or PlasmaOrdered By: Amanda Rosario on 05-20-2023 Bilirubin [Mass/Vol] 0.5 mg/dL 0.3-1.0 [facility] Calcium [Mass/volume] in Ser um or PlasmaOrdered By: Amanda Rosario on 05-20-2023 Calcium [Mass/Vol] 8.5 mg/dL 8.6-10.3 [facility] Carbon dioxide, total [Moles /volume] in Serum or PlasmaOrdered By: Amanda Rosario on 05-20-2023 CO2 [Moles/Vol] 26.1 mmol/L 21.0-31.0 [facility] Chloride [Moles/volume] in [place] or PlasmaOrdered By: Amanda Rosario on 05-20-2023 Chloride [Moles/Vol] 104 mmol/L 98-107 [facility] Creatinine [Mass/volume] in Serum or PlasmaOrdered By: Amanda Rosario on 05-20-2023 Creatinine [Mass/Vol] 0.56 mg/dL 0.60-1.20 [facility] Eosinophils Auto (Bld) [#/Vo l]Ordered By: Amanda Rosario on 05-20-2023 Eosinophils (Bld) [#/Vol] 0.1 10*3/uL 0.0-0.45 [facility] Eosinophils/100 WBC Auto (Bl d)Ordered By: Amanda Rosario on 05-20-2023 Eosinophils/100 WBC (Bld) 0.6 % . [facility] Erythrocyte distribution wid th Auto (RBC) [Ratio]Ordered By: Amanda Rosario on 05-20-2023 Erythrocyte distribution width (RBC) [Ratio] 13.1 % 11.9-15.3 [facility] Globulin Calc (S) [Mass/Vol] Ordered By: Amanda Rosario on 05-20-2023 Globulin (S) [Mass/Vol] 2.3 g/dL [facility] Glucose [Mass/volume] in Ser um or PlasmaOrdered By: Amanda Rosario on 05-20-2023 Glucose [Mass/Vol] 72 mg/dL 70-100 [facility] Comment on above: ADA recommended refe rence rangeRandom Glucose Reference Range is dependent on time and content of last meal. Glucose of more than 200 mg/dL in a nonstressed, ambulatory subject supports the diagnosis of Diabetes Mellitus. Hematocrit Auto (Bld) [Volum e fraction]Ordered By: Amanda Rosario on 05-20-2023 Hematocrit (Bld) [Volume fraction] 34.7 % 34.0-46.4 [facility] Hemoglobin [Mass/volume] in BloodOrdered By: Amanda Rosario on 05-20-2023 Hemoglobin (Bld) [Mass/Vol] 12.0 g/dL 11.8-15.4 [facility] Leukocytes [#/volume] correc yanira for nucleated erythrocytes in Blood by Automated counOrdered By: Amanda Rosario on 05-20-2023 WBC corrected for nucl RBC Auto (Bld) [#/Vol] 10.3 10*3/uL 3.8-11.6 [facility] Lymphocytes Auto (Bld) [#/Vo l]Ordered By: Amanda Rosario on 05-20-2023 Lymphocytes (Bld) [#/Vol] 1.3 10*3/uL 1.00-4.8 [facility] Lymphocytes/100 WBC Auto (Bl d)Ordered By: Amanda Rosario on 05-20-2023 Lymphocytes/100 WBC (Bld) 12.8 % . [facility] MCH Auto (RBC) [Entitic mass ]Ordered By: Amanda Rosario on 05-20-2023 MCH (RBC) [Entitic mass] 31.5 pg 24.7-34.3 [facility] MCHC Auto (RBC) [Mass/Vol]Or dered By: Amanda Rosario on 05-20-2023 MCHC (RBC) [Mass/Vol] 34.6 g/dL 32.0-35.0 [facility] MCV Auto (RBC) [Entitic vol] Ordered By: Amanda Rosario on 05-20-2023 MCV (RBC) [Entitic vol] 91.1 fL 80-100 [facility] Monocytes Auto (Bld) [#/Vol] Ordered By: Amanda Rosario on 05-20-2023 Monocytes (Bld) [#/Vol] 0.7 10*3/uL 0.0-0.8 [facility] Monocytes/100 WBC Auto (Bld) Ordered By: Amanda Rosario on 05-20-2023 Monocytes/100 WBC (Bld) 6.4 % . [facility] Neutrophils Auto (Bld) [#/Vo l]Ordered By: Amanda Rosario on 05-20-2023 Neutrophils (Bld) [#/Vol] 8.2 10*3/uL 1.8-7.7 [facility] Neutrophils/100 WBC Auto (Bl d)Ordered By: Amanda Rosario on 05-20-2023 Neutrophils/100 WBC (Bld) 79.8 % . [facility] No Panel InformationOrdered By: Amanda Rosario on 05-20-2023 Adrenocorticotropic Hormone 10.8 pg/mL 7.2-63.3 [facility] Comment on above: ACTH reference inter cruz for samples collected between 7 and10 AM.Performed at: [facility] [id number] Director: Sai Smalls PhD, Phone: [phone] Estimated GFR (CKD-EPI) > 60.0 mL/Min [facility] Creatinine Clearance (Chem 154.92 [facility] Nucleated erythrocytes [Pres ence] in Blood by Automated countOrdered By: Amanda Rosario on 05-20-2023 Nucleated RBC Auto Ql (Bld) 0.2 /100{WBC} 0-0.5 [facility] Platelet mean volume Auto (B ld) [Entitic vol]Ordered By: Amanda Rosario on 05-20-2023 Platelet mean volume (Bld) [Entitic vol] 7.4 fL 6.3-10.7 [facility] Platelets Auto (Bld) [#/Vol] Ordered By: Amanda Rosario on 05-20-2023 Platelets (Bld) [#/Vol] 256 10*3/uL 150-450 [facility] Potassium [Moles/volume] in Serum or PlasmaOrdered By: Amanda Rosario on 05-20-2023 Potassium [Moles/Vol] 4.2 mmol/L 3.5-5.1 [facility] Protein [Mass/volume] in Ser um or PlasmaOrdered By: Amanda Rosario on 05-20-2023 Protein [Mass/Vol] 6.1 g/dL 6.4-8.9 [facility] RBC Auto (Bld) [#/Vol]Ordere d By: Amanda Rosario on 05-20-2023 RBC (Bld) [#/Vol] 3.81 10*6/uL 3.60-5.00 [facility] Serum or plasma albumin/glob ulin mass ratioOrdered By: Amanda Rosario on 05-20-2023 Albumin/Globulin [Mass ratio] 1.7 {ratio} [facility] Serum or plasma anion gap de terminationOrdered By: Amanda Rosario on 05-20-2023 Anion gap [Moles/Vol] 10.1 mmol/L 6.0-15.0 [facility] Sodium [Moles/volume] in Ser um or PlasmaOrdered By: Amanda Rosario on 05-20-2023 Sodium [Moles/Vol] 136 mmol/L 136-145 [facility] Thyrotropin [Units/volume] i n Serum or PlasmaOrdered By: Amanda Rosario on 05-20-2023 TSH Qn 1.31 m[IU]/L 0.45-5.33 [facility] Thyroxine (T4) free [Mass/vo lume] in Serum or PlasmaOrdered By: Amanda Abraham on 05-20-2023 Free T4 [Mass/Vol] 0.86 ng/dL 0.61-1.12 [facility] Triiodothyronine (T3) Free [ Mass/volume] in Serum or PlasmaOrdered By: Amanda Abraham on 05-20-2023 Free T3 [Mass/Vol] 2.91 pg/mL 2.50-3.90 [facility] Urea nitrogen [Mass/volume] in Serum or PlasmaOrdered By: Amanda Rosario on 05-20-2023 Urea nitrogen [Mass/Vol] 10 mg/dL 7 [facility] WBC Auto (Bld) [#/Vol]Ordere d By: Amanda Rosario on 05-20-2023 WBC (Bld) [#/Vol] 10.3 10*3/uL 3.8-11.6 [facility] HEP B SURFACE ANTIGEN SCREEN on 04-08-2023 HBsAg Screen Negative Normal Negative [place] Comment on above: Performed By: #### T SH #### [facility] [address] [address] [address] Beth Pineda HEPATITIS C VIRUS AB W/ REFL EX QUANTon 04-08-2023 HCV AB Non-Reactive Normal Non Reactive [facility] Comment on above: Performed By: #### H CVPCRR #### [facility] [address] [address] [address] Beth Pineda HIV 1 AND 2 WITH REFLEXon HIV Screen 4th Generation wRfx Non-Reactive Normal Non Reactive [facility] Comment on above: Result Comment: HIV Negative HIV-1/HIV-2 antibodies and HIV-1 p24 antigen were NOT detected. There is no laboratory evidence of HIV infection. Performed By: #### H IV12 #### [facility] [address] [place] [address] Dr. Beth Pineda RPR QUANTon 04-08-2023 Rapid Plasma Reagin, Quant Non-Reactive Normal NonRea<1:1 [facility] Comment on above: Result Comment: Plea se Note: This test does not meet current guidelines for screening and diagnosis of syphilis. This test is intended for following treatment response in patients being treated for syphilis infection. To screen for syphilis infection, a reflex cascade that includes both RPR and a treponema-specific assay should be utilized, such as Treponema pallidum (Syphilis) Screening [place] (840714) or Rapid Plasma Reagin (RPR) Test With Reflex to Quantitative RPR and Confirmatory Treponema pallidum Antibodies (670748). Performed By: #### R PRQ #### [facility] [address] [place] [address] Dr. Beth Pineda RUBELLA AB IGGon 04-08-2023 Rubella Antibodies, IgG 1.35 index Normal Immu ne >0.99 [place] Comment on above: Result Comment: Non- immune <0.90 Equivocal 0.90 - 0.99 Immune >0.99 Performed By: #### R UBIGG #### [facility] [address] [place] [address] Dr. Beth Pineda BOX TEST SENT OUTon 04-07-20 23 SENT TO REF LAB 04/07/23 Normal [facility] Comment on above: Performed By: #### B OX #### [facility] [address] [place] [address] Dr. Beth Pineda CBC AUTO DIFFon 04-07-2023 BASO # 0.1 103/ul Normal 0.0-0.1 [place] Comment on above: Performed By: #### C BC #### [facility] [address] [place] [address] Dr. Beth Pineda Basophils/100 WBC (Bld) 0.7 % Normal 0.2-2.0 [facility] Comment on above: Performed By: #### C BC #### [facility] [address] [place] [address] Dr. Beth Pineda EO # 0.1 103/ul Normal 0.0-0.7 [place] Comment on above: Performed By: #### C BC #### [facility] [address] [place] [address] Dr. Beth Pineda Eosinophils/100 WBC (Bld) 1.1 % Normal 0.9-7.0 [place] Comment on above: Performed By: #### C BC #### [facility] [address] [place] [address] Dr. Beth Pineda Erythrocyte distribution width (RBC) [Ratio] 12.5 % Normal 11.0-15.0 [place] Comment on above: Performed By: #### C BC #### [facility] [address] [place] [address] Dr. Beth Pineda Hematocrit (Bld) [Volume fraction] 37.8 % Normal 36.0-48.0 [place] Comment on above: Performed By: #### C BC #### [facility] [address] [place] [address] Dr. Beth Pineda Hemoglobin (Bld) [Mass/Vol] 13.1 g/dL Normal 12.0-16.0 [place] Comment on above: Performed By: #### C BC #### [facility] [address] [place] [address] Dr. Beth Pineda IG # 0.02 10e3/ul Normal 0.00-0.03 [place] Comment on above: Performed By: #### C BC #### [facility] [address] [place] [address] Dr. Beth Pineda IG % 0.3 % Normal 0.0-0.5 [place] Comment on above: Performed By: #### C BC #### [facility] [address] [place] [address] Dr. Beth Pineda LYMPH # 1.5 103/ul Normal 1.2-3.8 [place] Comment on above: Performed By: #### C BC #### [facility] [address] [place] [address] Dr. Beth Pineda Lymphocytes/100 WBC (Bld) 19.9 % Critically low 20.5-60.0 [place] Comment on above: Performed By: #### C BC #### [facility] [address] [place] [address] Dr. Beth Pineda MANUAL DIFF REQ NO Normal [facility] Comment on above: Performed By: #### C BC #### [facility] [address] [address] [address] Beth Pineda MCH (RBC) [Entitic mass] 31.3 pg Normal 26.7-34.0 [place] Comment on above: Performed By: #### C BC #### [facility] [address] [place] [address] Dr. Beth Pineda MCHC (RBC) [Mass/Vol] 34.7 g/dL Normal 29.9-35.2 [place] Comment on above: Performed By: #### C BC #### [facility] [address] [place] [address] Dr. Beth Pineda MCV (RBC) [Entitic vol] 90.2 fL Normal 81.0-99.0 [facility] Comment on above: Performed By: #### C BC #### [facility] [address] [place] [address] Dr. Beth Pineda MONO # 0.5 103/ul Normal 0.3-0.8 [place] Comment on above: Performed By: #### C BC #### [facility] [address] [place] [address] Dr. Beth Pineda Monocytes/100 WBC (Bld) 6.1 % Normal 1.7-12.0 [facility] Comment on above: Performed By: #### C BC #### [facility] [address] [place] [address] Dr. Beth Pineda NEUT # 5.4 103/ul Normal 1.4-6.5 [place] Comment on above: Performed By: #### C BC #### [facility] [address] [place] [address] Dr. Beth Pineda Neutrophils/100 WBC (Bld) 71.9 % Normal 43.0-75.0 [place] Comment on above: Performed By: #### C BC #### [facility] [address] [place] [address] Dr. Beth Pineda Platelet mean volume (Bld) [Entitic vol] 8.9 fL Critically low 9.5-13.5 [place] Comment on above: Performed By: #### C BC #### [facility] [address] [address] [address] Beth Pineda PLT 272 103/ul Normal 150-450 [place] Comment on above: Performed By: #### C BC #### [facility] [address] [address] [address] Beth Pineda RBC 4.19 106/ul Critically low 4.20-5.[address] [facility] Comment on above: Performed By: #### C BC #### [facility] [address] [address] [address] Beth Pineda WBC 7.5 103/ul Normal 4.0-11.0 [place] Comment on above: Performed By: #### C BC #### [facility] [address] [place] [address] Dr. Beth Pineda CULTURE URINEon 04-07-2023 CULTURE URINE Culture Observations : NO GROWTH. Normal [place] Comment on above: Performed By: #### T SH #### [facility] [address] [place] [address] Dr. Beth Pineda GLYCOHEMOGLOBIN A1Con 2022 ADA RECOMMENDATION SEE BELOW Normal [facility] Comment on above: Result Comment: ADA RECOMMENDED LIMIT 4.0 - 6.0 ADA THERAPEUTIC TARGET < 7.0 ACTION SUGGESTED > 7.0 Performed By: #### A 1C #### [facility] [address] [place] [address] Dr. Beth Pineda Glucose [Mass/Vol] 82 mg/dL Normal [facility] Comment on above: Performed By: #### A 1C #### [facility] [address] [place] [address] Dr. Beth Pineda HbA1c (Bld) [Mass fraction] 4.5 % Normal 4.5-6.2 [place] Comment on above: Performed By: #### A 1C #### [facility] [address] [place] [address] Dr. Beth Pineda TSHon 04-07-2023 TSH 2.191 uIU/mL Normal 0.358-3.740 [facility] Comment on above: Performed By: #### T SH #### [facility] [address] [address] [address] Beth Pineda TYPE AND SCREENon 04-07-2023 TYPE AND SCREEN Negative Normal [facility] Comment on above: Performed By: #### T #### [facility] [address] [id number] Beth Pineda US PREG TVon 03-13-2023 [...] by: MORE FARLEY Date: 2023-03-13 09:37 Normal [place] PREG QUANT HCGon 02-27-2023 HCG QUANT 66900 mIU/mL Normal [place] Comment on above: Performed By: #### A 1C #### [facility] [address] [place], [place] [id number] Dr. Beth Pineda HCG RANGE SEE BELOW Normal [facility] Comment on above: Result Comment: 5-50 0.2-1 WEEK 50-500 1-2 WEEKS 100-5,000 2-3 WEEKS 500-10,000 3-4 WEEKS 1,000-50,000 4-5 WEEKS 10,000-100,000 5-6 WEEKS 15,000-200,000 6-8 WEEKS 10,000-100,000 2-3 MONTHS Performed By: #### A 1C #### [facility] [id number] Beth Pineda PREG QUANT HCGon 02-11-2023 HCG QUANT 57 mIU/mL Normal [place] Comment on above: Performed By: #### A 1C #### [facility] [address] [address] [address] Beth Pineda HCG RANGE SEE BELOW Normal [place] Comment on above: Result Comment: 5-50 0.2-1 WEEK 50-500 1-2 WEEKS 100-5,000 2-3 WEEKS 500-10,000 3-4 WEEKS 1,000-50,000 4-5 WEEKS 10,000-100,000 5-6 WEEKS 15,000-200,000 6-8 WEEKS 10,000-100,000 2-3 MONTHS Performed By: #### A 1C #### [facility] [address] [place] [address] Dr. Beth Pineda PREG QUANT HCGon 02-09-2023 HCG QUANT 14 mIU/mL [facility] Comment on above: Performed By: #### P REGQNT #### [facility] [address] [place] [address] Dr. Beth Pineda HCG RANGE SEE BELOW Normal [place] Comment on above: Result Comment: 5-50 0.2-1 WEEK 50-500 1-2 WEEKS 100-5,000 2-3 WEEKS 500-10,000 3-4 WEEKS 1,000-50,000 4-5 WEEKS 10,000-100,000 5-6 WEEKS 15,000-200,000 6-8 WEEKS 10,000-100,000 2-3 MONTHS Performed By: #### P REGQNT #### [facility] [address] [place] [address] Dr. Beth Pineda ANTI-MULLERIAN HORMONEon Anti-Mullerian Hormone (AMH) 12.5 ng/mL Normal [place] Comment on above: Result Comment: For assays employing antibodies, the possibility exists for interference by heterophile antibodies in the samples.1 1.Tanja Nava. Interferences in Immunoassays - still a threat. Clin. Chem. 2000; 46: 5160-5225. This test was developed and its performance characteristics determined by [employer]. It has not been cleared or approved by the Food and Drug Administration. Reference Range: Females 20 - 25y: 1.23 - 11.51 Median 4.70 AMH concentrations of >= 1.06 ng/mL is correlated with a better response to ovarian stimulation, produced more retrievable oocytes and higher odds of live according to Erikaer et al. Fertility and Sterility. 2010: 94:5373-7083. The current AMH test method correlates with [...] tumor. Performed By: #### T SH #### [facility] [address] [place] [address] Dr. Beth Pineda PAP ACOG PANEL 2: 21 to 31on 01-20-2023 . . Normal [place] Comment on above: Performed By: #### T SH #### [facility] [address] [address] [address] Beth Pineda Age Gdln ACOG Testing - Normal [place] Comment on above: Performed By: #### T SH #### [facility] [address] [place] [address] Dr. Beth Pineda DIAGNOSIS: Comment [facility] Comment on above: Result Comment: NEGA TIVE FOR INTRAEPITHELIAL LESION OR MALIGNANCY. Performed By: #### T SH #### [facility] [address] [place] [address] Dr. Beth Pineda Methodology: Comment [facility] Comment on above: Result Comment: This liquid based ThinPrep(R) pap test was screened with the use of an image guided system. Performed By: #### T SH #### [facility] [address] [place] [address] Dr. Beth Pineda Note: Comment [facility] Comment on above: Result Comment: The Pap smear is a screening test designed to aid in the detection of premalignant and malignant conditions of the uterine cervix. It is not a diagnostic procedure and should not be used as the sole means of detecting cervical cancer. Both false-positive and false-negative reports do occur. . Performed By: #### T SH #### [facility] [address] [address] [address] Beth Pineda Performed by: Comment Normal [facility] Comment on above: Result Comment: Pato Gonzalez, Community Outreach Worker (ASCP) Performed By: #### T SH #### [facility] [address] [address] [address] Beth Pineda Reflex Criteria: Comment Normal [facility] Comment on above: Result Comment: The HPV DNA reflex criteria were not met with this specimen result therefore, no HPV testing was performed. . Performed By: #### T SH #### [facility] [address] [address] [address] Beth Pineda Specimen adequacy: Comment Normal [facility] Comment on above: Result Comment: Sati sfactory for evaluation. Endocervical and/or squamous metaplastic cells (endocervical component) are present. Performed By: #### T SH #### [facility] [address] [address] [address] Beth Pineda Albumin [Mass/volume] in Ser um or PlasmaOrdered By: Amanda Rosario on 01-09-2023 Albumin [Mass/Vol] 4.3 g/dL 3.2-5.5 [facility] Alkaline phosphatase [Enzyma tic activity/volume] in Serum or PlasmaOrdered By: Amanda Rosario on 01-09-2023 ALP [Catalytic activity/Vol] 54 U/L 32-92 [facility] Aspartate aminotransferase [ Enzymatic activity/volume] in Serum or PlasmaOrdered By: Amanda Rosario on 01-09-2023 AST [Catalytic activity/Vol] 21 U/L 10-42 [facility] Basophils Auto (Bld) [#/Vol] Ordered By: Amanda Rosario on 01-09-2023 Basophils (Bld) [#/Vol] 0.0 10*3/uL 0.0-0.2 [facility] Basophils/100 WBC Auto (Bld) Ordered By: Amanad Rosario on 01-09-2023 Basophils/100 WBC (Bld) 0.7 % . [facility] Bilirubin.total [Mass/volume ] in Serum or PlasmaOrdered By: Amanda Rosario on 01-09-2023 Bilirubin [Mass/Vol] 0.7 mg/dL 0.3-1.2 [facility] CT biopsyOrdered By: Amanda Nino se on 01-09-2023 Transferrin [Mass/Vol] 265 mg/dL 180-380 [facility] Calcium [Mass/volume] in Ser um or PlasmaOrdered By: Amanda Rosario on 01-09-2023 Calcium [Mass/Vol] 9.6 mg/dL 8.2-10.2 [facility] Carbon dioxide, total [Moles /volume] in Serum or PlasmaOrdered By: Amanda Rosario on 01-09-2023 CO2 [Moles/Vol] 27.2 mmol/L 22.0-30.0 [facility] Chloride [Moles/volume] in [place] or PlasmaOrdered By: Amanda Rosario on 01-09-2023 Chloride [Moles/Vol] 104 mmol/L 95-114 [facility] Creatinine and Glomerular fi ltration rate.predicted panel (S/P/Bld)Ordered By: Amanda Rosario on 01-09-2023 Creatinine [Mass/Vol] 0.72 mg/dL 0.44-1.03 [facility] Eosinophils Auto (Bld) [#/Vo l]Ordered By: Amanda Rosario on 01-09-2023 Eosinophils (Bld) [#/Vol] 0.1 10*3/uL 0.0-0.45 [facility] Eosinophils/100 WBC Auto (Bl d)Ordered By: Amanda Rosario on 01-09-2023 Eosinophils/100 WBC (Bld) 1.3 % . [facility] Erythrocyte distribution wid th Auto (RBC) [Ratio]Ordered By: Amanda Rosario on 01-09-2023 Erythrocyte distribution width (RBC) [Ratio] 13.1 % 11.9-15.3 [facility] Estimated glomerular filtrat ion rate (GFR) non- AmericanOrdered By: Amanda Rosario on 01-09-2023 GFR/1.73 sq M.predicted among non-blacks MDRD (S/P/Bld) [Vol rate/Area] > 60 mL/Min [facility] Ferritin [Mass/volume] in Se rum or PlasmaOrdered By: Amanda Rosario on 01-09-2023 Ferritin [Mass/Vol] 13.4 ng/mL 11-306.8 [facility] Globulin Calc (S) [Mass/Vol] Ordered By: Amanda Rosario on 01-09-2023 Globulin (S) [Mass/Vol] 2.3 g/dL [facility] Glucose [Mass/volume] in Ser um or PlasmaOrdered By: Amanda Rosario on 01-09-2023 Glucose [Mass/Vol] 80 mg/dL 70-100 [facility] Comment on above: ADA recommended refe rence rangeRandom Glucose Reference Range is dependent on time and content of last meal. Glucose of more than 200 mg/dL in a nonstressed, ambulatory subject supports the diagnosis of Diabetes Mellitus. Hematocrit Auto (Bld) [Volum e fraction]Ordered By: Amanda Rosario on 01-09-2023 Hematocrit (Bld) [Volume fraction] 39.5 % 34.0-46.4 [facility] Hemoglobin [Mass/volume] in BloodOrdered By: Amanda Rosario on 01-09-2023 Hemoglobin (Bld) [Mass/Vol] 13.1 g/dL 11.8-15.4 [facility] Iron [Mass/volume] in Serum or PlasmaOrdered By: Amanda Rosario on 01-09-2023 Iron [Mass/Vol] 75 ug/dL 40-150 [facility] Iron binding capacity [Mass/ volume] in Serum or PlasmaOrdered By: Amanda Rosario on 01-09-2023 Iron binding capacity [Mass/Vol] 371 ug/dL 255-450 [facility] Iron saturation [Mass Fracti on] in Serum or PlasmaOrdered By: Amanda Rosario on 01-09-2023 Iron saturation [Mass fraction] 20.2 % 20-50 [facility] Lactate dehydrogenase measur ement (enzymatic activity/volume)Ordered By: Ale Malone on 01-09-2023 LDH (Unsp spec) [Catalytic activity/Vol] 145 U/L 45-190 [facility] Leukocytes [#/volume] correc yanira for nucleated erythrocytes in Blood by Automated counOrdered By: Amanda Rosario on 01-09-2023 WBC corrected for nucl RBC Auto (Bld) [#/Vol] 4.8 10*3/uL 3.8-11.6 [facility] Lymphocytes Auto (Bld) [#/Vo l]Ordered By: Amanda Rosario on 01-09-2023 Lymphocytes (Bld) [#/Vol] 1.0 10*3/uL 1.00-4.8 [facility] Lymphocytes/100 WBC Auto (Bl d)Ordered By: Amanad Rosario on 01-09-2023 Lymphocytes/100 WBC (Bld) 20.2 % . [facility] MCH Auto (RBC) [Entitic mass ]Ordered By: Amanda Rosario on 01-09-2023 MCH (RBC) [Entitic mass] 30.0 pg 24.7-34.3 [facility] MCHC Auto (RBC) [Mass/Vol]Or dered By: Amanda Rosario on 01-09-2023 MCHC (RBC) [Mass/Vol] 33.2 g/dL 32.0-35.0 [facility] MCV Auto (RBC) [Entitic vol] Ordered By: Amanda Rosario on 01-09-2023 MCV (RBC) [Entitic vol] 90.3 fL 80-100 [facility] Monocytes Auto (Bld) [#/Vol] Ordered By: Amanda Rosario on 01-09-2023 Monocytes (Bld) [#/Vol] 0.5 10*3/uL 0.0-0.8 [facility] Monocytes/100 WBC Auto (Bld) Ordered By: Amanda Rosario on 01-09-2023 Monocytes/100 WBC (Bld) 10.5 % . [facility] Neutrophils Auto (Bld) [#/Vo l]Ordered By: Amanda Rosario on 01-09-2023 Neutrophils (Bld) [#/Vol] 3.2 10*3/uL 1.8-7.7 [facility] Neutrophils/100 WBC Auto (Bl d)Ordered By: Amanda Rosario on 01-09-2023 Neutrophils/100 WBC (Bld) 67.3 % . [facility] No Panel InformationOrdered By: Amanda Rosario on 01-09-2023 Estimated GFR () > 60 mL/Min [facility] Comment on above: GFR estimated refere nce range: According to KDOQI guidelines, <60 ml/min/1.73m2 is sufficient to diagnose a patient with chronic kidney disease. Pharmacy Creatinine Clearance (Chem 120.49 [facility] Nucleated erythrocytes [Pres ence] in Blood by Automated countOrdered By: Amanda Rosario on 01-09-2023 Nucleated RBC Auto Ql (Bld) 0.1 /100{WBC} 0-0.5 [facility] Platelet mean volume Auto (B ld) [Entitic vol]Ordered By: Amanda Rosario on 01-09-2023 Platelet mean volume (Bld) [Entitic vol] 7.9 fL 6.3-10.7 [facility] Platelets Auto (Bld) [#/Vol] Ordered By: Amanda Rosario on 01-09-2023 Platelets (Bld) [#/Vol] 290 10*3/uL 150-450 [facility] Potassium [Moles/volume] in Serum or PlasmaOrdered By: Amanda Rosario on 01-09-2023 Potassium [Moles/Vol] 4.4 mmol/L 3.5-5.1 [facility] Protein [Mass/volume] in Ser um or PlasmaOrdered By: Amanda Rosario on 01-09-2023 Protein [Mass/Vol] 6.6 g/dL 6.1-7.9 [facility] RBC Auto (Bld) [#/Vol]Ordere d By: Amanda Rosario on 01-09-2023 RBC (Bld) [#/Vol] 4.37 10*6/uL 3.60-5.00 [facility] Serum or plasma alanine green otransferase measurement without P-5'-P (enzymatic activiOrdered By: Amanda Rosario on 01-09-2023 ALT No additional P-5'-P [Catalytic activity/Vol] 20 U/L 10-60 [facility] Serum or plasma albumin/glob ulin mass ratioOrdered By: Amanda Rosario on 01-09-2023 Albumin/Globulin [Mass ratio] 1.9 {ratio} [facility] Serum or plasma anion gap de terminationOrdered By: Amanda Rosario on 01-09-2023 Anion gap [Moles/Vol] 10.2 mmol/L 6.0-15.0 [facility] Sodium [Moles/volume] in Ser um or PlasmaOrdered By: Amanda Rosario on 01-09-2023 Sodium [Moles/Vol] 137 mmol/L 136-146 [facility] Urea nitrogen [Mass/volume] in Serum or PlasmaOrdered By: Amanda Rosario on 01-09-2023 Urea nitrogen [Mass/Vol] 13 mg/dL 9-23 [facility] WBC Auto (Bld) [#/Vol]Ordere d By: Amanda Rosario on 01-09-2023 WBC (Bld) [#/Vol] 4.8 10*3/uL 3.8-11.6 [facility] CBC AUTO DIFFon 12-31-2022 BASO # 0.1 103/ul Normal 0.0-0.1 [place] Comment on above: Performed By: #### C BC #### [facility] [address] [place] [address] Dr. Beth Pineda Basophils/100 WBC (Bld) 1.2 % Normal 0.2-2.0 [facility] Comment on above: Performed By: #### C BC #### [facility] [address] [place] [address] Dr. Beth Pineda EO # 0.1 103/ul Normal 0.0-0.7 [place] Comment on above: Performed By: #### C BC #### [facility] [address] [place] [address] Dr. Beth Pineda Eosinophils/100 WBC (Bld) 2.1 % Normal 0.9-7.0 [place] Comment on above: Performed By: #### C BC #### [facility] [address] [place] [address] Dr. Beth Pineda Erythrocyte distribution width (RBC) [Ratio] 12.9 % Normal 11.0-15.0 [place] Comment on above: Performed By: #### C BC #### [facility] [address] [place] [address] Dr. Beth Pineda Hematocrit (Bld) [Volume fraction] 41.2 % Normal 36.0-48.0 [place] Comment on above: Performed By: #### C BC #### [facility] [address] [place] [address] Dr. Beth Pineda Hemoglobin (Bld) [Mass/Vol] 13.5 g/dL Normal 12.0-16.0 [place] Comment on above: Performed By: #### C BC #### [facility] [address] [place] [address] Dr. Beth Pineda IG # 0.01 10e3/ul Normal 0.00-0.03 [place] Comment on above: Performed By: #### C BC #### [facility] [address] [place] [address] Dr. Beth Pineda IG % 0.2 % Normal 0.0-0.5 [place] Comment on above: Performed By: #### C BC #### [facility] [address] [place] [address] Dr. Beth Pineda LYMPH # 1.6 103/ul Normal 1.2-3.8 [place] Comment on above: Performed By: #### C BC #### [facility] [address] [place] [address] Dr. Beth Pineda Lymphocytes/100 WBC (Bld) 29.9 % Normal 20.5-60.0 [place] Comment on above: Performed By: #### C BC #### [facility] [address] [place] [address] Dr. Beth Pineda MANUAL DIFF REQ NO Normal [facility] Comment on above: Performed By: #### C BC #### [facility] [address] [place] [address] Dr. Beth Pineda MCH (RBC) [Entitic mass] 30.3 pg Normal 26.7-34.0 [place] Comment on above: Performed By: #### C BC #### [facility] [address] [place] [address] Dr. Beth Pineda MCHC (RBC) [Mass/Vol] 32.8 g/dL Normal 29.9-35.2 [place] Comment on above: Performed By: #### C BC #### [facility] [address] [address] [address] Beth Pineda MCV (RBC) [Entitic vol] 92.6 fL Normal 81.0-99.0 [facility] Comment on above: Performed By: #### C BC #### [facility] [address] [address] [address] Beth Pineda MONO # 0.4 103/ul Normal 0.3-0.8 [place] Comment on above: Performed By: #### C BC #### [facility] [address] [place] [address] Dr. Beth Pineda Monocytes/100 WBC (Bld) 7.9 % Normal 1.7-12.0 [facility] Comment on above: Performed By: #### C BC #### [facility] [address] [place] [address] Dr. Beth Pineda NEUT # 3.0 103/ul Normal 1.4-6.5 [place] Comment on above: Performed By: #### C BC #### [facility] [address] [place] [address] Dr. Beth Pineda Neutrophils/100 WBC (Bld) 58.7 % Normal 43.0-75.0 [place] Comment on above: Performed By: #### C BC #### [facility] [address] [place] [address] Dr. Beth Pineda Platelet mean volume (Bld) [Entitic vol] 9.3 fL Critically low 9.5-13.5 [place] Comment on above: Performed By: #### C BC #### [facility] [address] [place] [address] Dr. Beth Pineda PLT 304 103/ul Normal 150-450 [place] Comment on above: Performed By: #### C BC #### [facility] [address] [place] [address] Dr. Beth Pineda RBC 4.45 106/ul Normal 4.20-5.40 [place] Comment on above: Performed By: #### C BC #### [facility] [address] [address] [address] Beth Pineda WBC 5.2 103/ul Normal 4.0-11.0 [place] Comment on above: Performed By: #### C BC #### [facility] [address] [place] [address] Dr. Beth Pineda GLYCOHEMOGLOBIN A1Con 2022 ADA RECOMMENDATION SEE BELOW Normal [facility] Comment on above: Result Comment: ADA RECOMMENDED LIMIT 4.0 - 6.0 ADA THERAPEUTIC TARGET < 7.0 ACTION SUGGESTED > 7.0 Performed By: #### T SH #### [facility] [address] [place] [address] Dr. Beth Pineda Glucose [Mass/Vol] 91 mg/dL Normal [facility] Comment on above: Performed By: #### T SH #### [facility] [address] [place] [address] Dr. Beth Pineda HbA1c (Bld) [Mass fraction] 4.8 % Normal 4.5-6.2 [place] Comment on above: Performed By: #### T SH #### [facility] [address] [place] [address] Dr. Beth Pineda LIPID PROFILEon 12-31-2022 CHOL-HDL RATIO NORM SEE BELOW Normal [facility] Comment on above: Result Comment: 3.3 - 4.4 LOW RISK 4.4 - 7.1 AVERAGE RISK 7.1 - 11.0 MODERATE RISK >11.0 HIGH RISK Performed By: #### A 1C #### [facility] [address] [place] [address] Dr. Beth Pineda Cholesterol [Mass/Vol] 180 mg/dL Normal <=200 [facility] Comment on above: Performed By: #### A 1C #### [facility] [address] [place] [address] Dr. Beth Pineda Cholesterol in HDL [Mass/Vol] 106 mg/dL Critically high 40-60 [place] Comment on above: Performed By: #### A 1C #### [facility] [address] [address] [address] Beth Pineda Cholesterol in LDL [Mass/Vol] 66.6 mg/dL Normal [place] Comment on above: Performed By: #### A 1C #### [facility] [address] [address] [address] Beth Pineda Cholesterol.total/Elida sterol in HDL [Mass ratio] 1.7 {ratio} Normal [place] Comment on above: Performed By: #### A 1C #### [facility] [address] [address] [address] Beth Pineda HDL NORMAL > or = 60 mg/dl - LO W CARDIOVASCULAR RISK <40 mg/dl - HIGH CARDIOVASCULAR RISK Normal [place] Comment on above: Performed By: #### A 1C #### [facility] [address] [place] [address] Dr. Beth Pineda LDL CALC NORMAL SEE BELOW Normal [facility] Comment on above: Result Comment: <100 mg/dl OPTIMAL 100 - 129 mg/dl NEAR OR ABOVE OPTIMAL 130 - 159 mg/dl BORDERLINE HIGH 160 - 189 mg/dl HIGH >190 mg/dl VERY HIGH Performed By: #### A 1C #### [facility] [address] [address] [address] Beth Pineda Triglyceride [Mass/Vol] 37 mg/dL Normal <=150 T [facility] Comment on above: Performed By: #### A 1C #### [facility] [address] [address] [address] Beth Pineda VLDL CALC 7.4 mg/dL Normal [place] Comment on above: Performed By: #### A 1C #### [facility] [address] [address] [address] Beth Pineda PROF 14(COMP METB)on 023 Albumin [Mass/Vol] 4.3 g/dL Normal 3.4-5.0 [facility] Comment on above: Performed By: #### T SH #### [facility] [address] [address] [address] Beth Pineda Albumin/Globulin [Mass ratio] 1.3 {ratio} Normal [place] Comment on above: Performed By: #### T SH #### [facility] [address] [address] [address] Beth Pineda ALP [Catalytic activity/Vol] 68 U/L Normal 46-116 [place] Comment on above: Performed By: #### T SH #### [facility] [address] [place] [address] Dr. Beth Pineda ALT [Catalytic activity/Vol] 21 U/L Normal 14-59 [place] Comment on above: Performed By: #### T SH #### [facility] [address] [place] [address] Dr. Beth Pineda Anion gap [Moles/Vol] 12.1 mmol/L Normal [facility] Comment on above: Performed By: #### T SH #### [facility] [address] [place] [address] Dr. Beth Pineda AST [Catalytic activity/Vol] 10 U/L Critically low 15-37 [place] Comment on above: Performed By: #### T SH #### [facility] [address] [place] [address] Dr. Beth Pineda Bilirubin [Mass/Vol] 0.6 mg/dL Normal 0.2-1.0 [place] Comment on above: Performed By: #### T SH #### [facility] [address] [place] [address] Dr. Beth Pineda Calcium [Mass/Vol] 9.2 mg/dL Normal 8.5-10.1 [facility] Comment on above: Performed By: #### T SH #### [facility] [address] [place] [address] Dr. Beth Pineda Chloride [Moles/Vol] 103 mmol/L Normal 98-107 [place] Comment on above: Performed By: #### T SH #### [facility] [address] [place] [address] Dr. Beth Pineda CO2 [Moles/Vol] 28.0 mmol/L Normal 21.0-32.0 [facility] Comment on above: Performed By: #### T SH #### [facility] [address] [place] [address] Dr. Beth Pineda Creatinine [Mass/Vol] 0.73 mg/dL Normal 0.55-1.02 [place] Comment on above: Performed By: #### T SH #### [facility] [address] [place] [address] Dr. Beth Pineda EGFR-AF NEW ZEALANDER >60 Normal >=60 [facility] Comment on above: Performed By: #### T SH #### [facility] [address] [place] [address] Dr. Beth Pineda EGFR-NON AF NEW ZEALANDER >60 Normal >=60 [place] Comment on above: Performed By: #### T SH #### [facility] [address] [place] [address] Dr. Beth Pineda Globulin (S) [Mass/Vol] 3.2 g/dL Normal [facility] Comment on above: Performed By: #### T SH #### [facility] [address] [place] [address] Dr. Beth Pineda Glucose [Mass/Vol] 89 mg/dL Normal 74-[address] [facility] Comment on above: Performed By: #### T SH #### [facility] [address] [place] [address] Dr. Beth Pineda Potassium [Moles/Vol] 4.1 mmol/L Normal 3.5-5.1 [place] Comment on above: Performed By: #### T SH #### [facility] [address] [place] [address] Dr. Beth Pineda Protein [Mass/Vol] 7.5 g/dL Normal 6.4-8.[address] [facility] Comment on above: Performed By: #### T SH #### [facility] [address] [place] [address] Dr. Beth Pineda Sodium [Moles/Vol] 139 mmol/L Normal 136-145 [facility] Comment on above: Performed By: #### T SH #### [facility] [address] [place] [address] Dr. Beth Pineda Urea nitrogen [Mass/Vol] 10.0 mg/dL Normal 7.0-18.0 [place] Comment on above: Performed By: #### T SH #### [facility] [address] [place] [address] Dr. Beth iPneda Urea nitrogen/Creatinine [Mass ratio] 13.7 mg/mg Normal [place] Comment on above: Performed By: #### T SH #### [facility] [address] [address] [address] Beth Pineda TSHon 12-31-2022 TSH 3.121 uIU/mL Normal 0.358-3.740 [facility] Comment on above: Performed By: #### A 1C #### [facility] [address] [place] [address] Dr. Beth Pineda Albumin [Mass/volume] in Ser um or PlasmaOrdered By: Amanda Rosario on 07-08-2022 Albumin [Mass/Vol] 3.9 g/dL 3.2-5.5 [facility] Basophils Auto (Bld) [#/Vol] Ordered By: Amanda Rosario on 07-08-2022 Basophils (Bld) [#/Vol] 0.1 10*3/uL 0.0-0.2 [facility] Basophils/100 WBC Auto (Bld) Ordered By: Amanda Rosario on 07-08-2022 Basophils/100 WBC (Bld) 1.3 % . F [facility] Blood hemoglobin measurement (mass/volume)Ordered By: Amanda Rosario on 07-08-2022 Hemoglobin (Bld) [Mass/Vol] 14.2 g/dL 11.8-15.4 [facility] Blood leukocytes automated c ount (number/volume)Ordered By: Amanda Rosario on 07-08-2022 WBC (Bld) [#/Vol] 5.6 10*3/uL 4.5-11.0 [facility] CT biopsyOrdered By: Amanda Nino se on 07-08-2022 Transferrin [Mass/Vol] 346 mg/dL 180-380 Fi [facility] Creatinine and Glomerular fi ltration rate.predicted panel (S/P/Bld)Ordered By: Amanda Rosario on 07-08-2022 Creatinine [Mass/Vol] 0.78 mg/dL 0.44-1.03 [facility] Eosinophils Auto (Bld) [#/Vo l]Ordered By: Amanda Rosario on 07-08-2022 Eosinophils (Bld) [#/Vol] 0.1 10*3/uL 0.0-0.45 [facility] Eosinophils/100 WBC Auto (Bl d)Ordered By: Amanda Rosario on 07-08-2022 Eosinophils/100 WBC (Bld) 1.2 % . [facility] Erythrocyte distribution wid th Auto (RBC) [Ratio]Ordered By: Amanda Rosario on 07-08-2022 Erythrocyte distribution width (RBC) [Ratio] 12.4 % 11.9-15.3 [facility] Estimated glomerular filtrat ion rate (GFR) non- AmericanOrdered By: Amanda Rosario on 07-08-2022 GFR/1.73 sq M.predicted among non-blacks MDRD (S/P/Bld) [Vol rate/Area] > 60 mL/Min [facility] Ferritin [Mass/volume] in Se rum or PlasmaOrdered By: Amanda Rosario on 07-08-2022 Ferritin [Mass/Vol] 9.6 ng/mL 11-306.8 [facility] Globulin Calc (S) [Mass/Vol] Ordered By: Amanda Rosario on 07-08-2022 Globulin (S) [Mass/Vol] 2.9 g/dL [facility] Hematocrit Auto (Bld) [Volum e fraction]Ordered By: Amanda Rosario on 07-08-2022 Hematocrit (Bld) [Volume fraction] 42.7 % 34.0-46.4 [facility] Iron [Mass/volume] in Serum or PlasmaOrdered By: Amanda Rosario on 07-08-2022 Iron [Mass/Vol] 173 ug/dL 40-150 [facility] Iron binding capacity [Mass/ volume] in Serum or PlasmaOrdered By: Amanda Rosario on 07-08-2022 Iron binding capacity [Mass/Vol] 484 ug/dL 255-450 [facility] Iron saturation [Mass Fracti on] in Serum or PlasmaOrdered By: Amanda Rosario on 07-08-2022 Iron saturation [Mass fraction] 35.0 % 20-50 [facility] Laboratory - Hematology and Cell countsOrdered By: Amanda Rosario on 07-08-2022 Nucleated RBC/100 WBC (Bld) [Ratio] 0.2 % 0-0.5 [facility] Lactate dehydrogenase measur ement (enzymatic activity/volume)Ordered By: Amanda Rosario on 07-08-2022 LDH (Unsp spec) [Catalytic activity/Vol] 154 U/L 45-190 [facility] Lymphocytes Auto (Bld) [#/Vo l]Ordered By: Amanda Rosario on 07-08-2022 Lymphocytes (Bld) [#/Vol] 1.5 10*3/uL 1.00-4.8 [facility] Lymphocytes/100 WBC Auto (Bl d)Ordered By: Amanda Rosario on 07-08-2022 Lymphocytes/100 WBC (Bld) 26.6 % . [facility] MCH Auto (RBC) [Entitic mass ]Ordered By: Amanda Rosario on 07-08-2022 MCH (RBC) [Entitic mass] 29.7 pg 24.7-34.3 [facility] MCHC Auto (RBC) [Mass/Vol]Or dered By: Amanda Rosario on 07-08-2022 MCHC (RBC) [Mass/Vol] 33.3 g/dL 32.0-35.0 [facility] MCV Auto (RBC) [Entitic vol] Ordered By: Amanda Rosario on 07-08-2022 MCV (RBC) [Entitic vol] 89.4 fL 80-100 [facility] Monocytes Auto (Bld) [#/Vol] Ordered By: Amanda Rosario on 07-08-2022 Monocytes (Bld) [#/Vol] 0.5 10*3/uL 0.0-0.8 [facility] Monocytes/100 WBC Auto (Bld) Ordered By: Amanda Rosario on 07-08-2022 Monocytes/100 WBC (Bld) 9.7 % . [facility] Neutrophils Auto (Bld) [#/Vo l]Ordered By: Amanda Rosario on 07-08-2022 Neutrophils (Bld) [#/Vol] 3.4 10*3/uL 1.8-7.7 [facility] Neutrophils/100 WBC Auto (Bl d)Ordered By: Amanda Rosario on 07-08-2022 Neutrophils/100 WBC (Bld) 61.2 % . [facility] No Panel InformationOrdered By: Amanda Rosario on 07-08-2022 Adrenocorticotropic Hormone 8.2 pg/mL 7.2-63.3 [facility] Comment on above: ACTH reference inter cruz for samples collected between 7 and 10 AM. Performed at: [facility] [id number] [employer] Manager: Sai Smalls PhD, Phone: [phone] ACTH reference inter cruz for samples collected between 7 and10 AM.Performed at: [employer] [id number] Director: Sai Smalls PhD, Phone: [phone] Estimated GFR () > 60 mL/Min [facility] Comment on above: GFR estimated refere nce range: According to KDOQI guidelines, <60 ml/min/1.73m2 is sufficient to diagnose a patient with chronic kidney disease. Pharmacy Creatinine Clearance (Chem 111.22 [facility] Total Triiodothyronine 1.68 ng/mL 0.87-1.78 Fi [facility] Platelet mean volume Auto (B ld) [Entitic vol]Ordered By: Amanda Rosario on 07-08-2022 Platelet mean volume (Bld) [Entitic vol] 8.0 fL 6.3-10.7 [facility] Platelets Auto (Bld) [#/Vol] Ordered By: Amanda Rosario on 07-08-2022 Platelets (Bld) [#/Vol] 393 10*3/uL 150-450 [facility] Protein [Mass/volume] in Ser um or PlasmaOrdered By: Amanda Rosario on 07-08-2022 Protein [Mass/Vol] 6.8 g/dL 6.1-7.9 [facility] RBC Auto (Bld) [#/Vol]Ordere d By: Amanda Rosario on 07-08-2022 RBC (Bld) [#/Vol] 4.78 10*6/uL 3.60-5.00 [facility] Random cortisol measurementO rdered By: Amanda Rosario on 07-08-2022 Cortisol [Mass/Vol] 12.6 ug/dL [facility] Comment on above: Reference range: AM 6 - 24 ug/dl PM <10 ug/dl Reference range: AM 6 - 24 ug/dl PM <10 ug/dl Serum or plasma alanine green otransferase measurement without P-5'-P (enzymatic activiOrdered By: Amanda Rosario on 07-08-2022 ALT No additional P-5'-P [Catalytic activity/Vol] 17 U/L 10-60 [facility] Serum or plasma albumin/glob ulin mass ratioOrdered By: Amanda Rosario on 07-08-2022 Albumin/Globulin [Mass ratio] 1.3 {ratio} [facility] Serum or plasma alkaline mando sphatase measurement (enzymatic activity/volume)Ordered By: Amanda Rosario on 07-08-2022 ALP [Catalytic activity/Vol] 52 U/L 32-92 [facility] Serum or plasma aspartate am inotransferase measurement (enzymatic activity/volume)Ordered By: Amanda Rosario on 07-08-2022 AST [Catalytic activity/Vol] 22 U/L 10-42 [facility] Serum or plasma calcium saritha urement (mass/volume)Ordered By: Amanda Rosario on 07-08-2022 Calcium [Mass/Vol] 9.3 mg/dL 8.2-10.2 [facility] Serum or plasma chloride obi surement (moles/volume)Ordered By: Amanda Rosario on 07-08-2022 Chloride [Moles/Vol] 104 mmol/L 95-114 [facility] Serum or plasma glucose saritha urement (mass/volume)Ordered By: Amanda Rosario on 07-08-2022 Glucose [Mass/Vol] 83 mg/dL 70-100 [facility] Comment on above: ADA recommended refe rence range Random Glucose Reference Range is dependent on time and content of last meal. Glucose of more than 200 mg/dL in a nonstressed, ambulatory subject supports the diagnosis of Diabetes Mellitus. Serum or plasma potassium me asurement (moles/volume)Ordered By: Amanda Rosario on 07-08-2022 Potassium [Moles/Vol] 4.3 mmol/L 3.5-5.1 [facility] Serum or plasma sodium measu rement (moles/volume)Ordered By: Amanda Rosario on 07-08-2022 Sodium [Moles/Vol] 134 mmol/L 136-146 [facility] Serum or plasma thyroxine (T 4) measurement (mass/volume)Ordered By: Amanda Rosario on 07-08-2022 T4 [Mass/Vol] 11.18 ug/dL 5.39-11.82 [facility] Serum or plasma total biliru bin measurement (mass/volume)Ordered By: Amanda Rosario on 07-08-2022 Bilirubin [Mass/Vol] 0.7 mg/dL 0.3-1.2 [facility] Serum or plasma total carbon dioxide measurement (moles/volume)Ordered By: Amanda Rosario on 07-08-2022 CO2 [Moles/Vol] 22.2 mmol/L 22.0-30.0 [facility] Serum or plasma urea nitroge n measurement (mass/volume)Ordered By: Amanda Rosario on 07-08-2022 Urea nitrogen [Mass/Vol] 9 mg/dL 9-23 [facility] TSH DL <= 0.005 mIU/L QnOrde red By: Amanda Rosario on 07-08-2022 TSH Qn 1.69 m[IU]/L 0.45-5.33 [facility] CHLAMYDIA/GONOCOCCUS PARMINDER (SW AB/URINE/PAPon 06-19-2022 Chlamydia trachomatis, PARMINDER Negative Normal Negative [facility] Comment on above: Performed By: #### T SH #### [facility] [address] [place] [address] Dr. Beth Pineda Neisseria gonorrhoeae, PARMINDER Negative Normal Negative [facility] Comment on above: Performed By: #### T SH #### [facility] [address] [address] [address] Beth Pineda VAGINITIS/VAGINOSIS DNA PROB Kaden 06-18-2022 Steven species Negative Normal Negative [facility] Comment on above: Performed By: #### T SH #### [facility] [address] [place] [address] Dr. Beth Pineda Gardnerella vaginalis Negative Normal Negative [facility] Comment on above: Performed By: #### T SH #### [facility] [address] [address] [address] Beth Pineda Trichomonas vaginalis Negative Normal Negative [facility] Comment on above: Performed By: #### T SH #### [facility] [address] [address] [address] Beth Pineda Creatinine [Mass/volume] in UrineOrdered By: Amanda Rosario on 05-23-2022 Creatinine (U) [Mass/Vol] 26.2 mg/dL [facility] Comment on above: No reference range e stablished Laboratory - Chemistry and C hemistry - challengeOrdered By: Amanda Rosario on 05-23-2022 Lipase [Catalytic activity/Vol] 32.0 U/L 22-51 [facility] Protein [Mass/volume] in Uri neOrdered By: Amanda Rosario on 05-23-2022 Protein (U) [Mass/Vol] mg/dL 0-9 [facility] Thyroxine (T4) free [Mass/vo lume] in Serum or PlasmaOrdered By: Amanda Rosario on 05-23-2022 Free T4 [Mass/Vol] 0.88 ng/dL 0.61-1.12 [facility] Bilirubin Test strip Ql (U)O rdered By: Amanda Rosario on 10-30-2021 Bilirubin Ql (U) Negative Negative [facility] Color Auto (U)Ordered By: Ira Rosario on 10-30-2021 Color (U) Yellow Yellow [facility] Ketones Auto test strip (U) [Mass/Vol]Ordered By: Amanda Rosario on 10-30-2021 Ketones (U) [Mass/Vol] Negative Negative Fi [facility] Nitrite Test strip Ql (U)Ord ered By: Amanda Rosario on 10-30-2021 Nitrite Ql (U) Negative Negative [facility] Protein Auto test strip (U) [Mass/Vol]Ordered By: Amanda Rosario on 10-30-2021 Protein (U) [Mass/Vol] Negative Negative [facility] Specific gravity Auto test s trip (U) [Rel density]Ordered By: Amanda Rosario on 10-30-2021 Specific gravity (U) [Rel density] 1.008 1.001-1.030 [facility] Urine clarity by refractomet ry automatedOrdered By: Amanda Rosario on 10-30-2021 Clarity Refractometry automated (U) Clear Clear [facility] Urine glucose measurement by automated test strip (mass/volume)Ordered By: Amanda Rosario on 10-30-2021 Glucose Auto test strip (U) [Mass/Vol] Normal mg/dL Normal [facility] Urine hemoglobin detection b y automated test stripOrdered By: Amanda Rosario on 10-30-2021 Hemoglobin Auto test strip Ql (U) Negative Negative [facility] Urine leukocyte esterase det ection by automated test stripOrdered By: Amanda Rosario on 10-30-2021 Leukocyte esterase Auto test strip Ql (U) Negative Negative [facility] Urobilinogen Auto test strip (U) [Mass/Vol]Ordered By: Amanda Rosario on 10-30-2021 Urobilinogen (U) [Mass/Vol] Normal mg/dL Normal [facility] pH Auto test strip (U)Ordere d By: Amanda Rosario on 10-30-2021 pH (U) 5.5 [pH] 5.0-9.0 [facility] Lab Reportson 07-31-2021 Lab Reports [id number] D:127 Normal [facility] RAD - MISCon 07-31-2021 RAD [facility] [place] [id number] D:127 Normal [facility] HCG ( test) IA.rapi d Ql (U)Ordered By: Amanda Rosario on 07-09-2021 HCG ( test) Ql (U) Negative [facility] Glucose Glucometer (BldC) [M ass/Vol]Ordered By: Amanda Rosario on 07-01-2021 Glucose [Mass/Vol] 82 mg/dL [facility] Comment on above: Random Glucose Refer ence Range is dependent on time and content of last meal. Glucose of more than 200 mg/dL in a nonstressed, ambulatory subject supports the diagnosis of Diabetes Mellitus. 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 Will follow up with the pathology report once this is resulted Dictation software was used in the creation of this note and not corrected for typographical or grammatical errors Chief Complaint Postop History of Present Hejnwvb13-gvrb-brw woman who underwent wide excision right posterior calf melanoma with Barrow flap reconstruction as well as right inguinal and iliac sentinel lymph node biopsy on 05/17/2021. Pathology report has not yet resulted. She is recovering well. Active Problems Malignant melanoma of lower leg, right (172.7) (C43.71) Allergies No Known Drug Allergies Recorded By: Florence Fernando; 05/30/2021 2:49:13 PM Vitals Vital Signs Recorded: 30May2021 02:47PM Pcocoxikyaj19 C, Temporal Heart Hqcu170 Sdwaowbfgkx58 Wrpyedpv642, RUE, Sitting Pebwfnvjh56, RUE, Sitting Blood Pressure Cuff SizeAdult Locxjn794 cm Gmuybg62.6 kg BMI Sjvcesthvw74.58 kg/m2 BSA Calculated1.77 O2 Jyingochnd67 Pain Scale0 Physical Exam Right groin wounds above and below the inguinal crease are both healing well without evidence of infection or seroma Right lower leg incision healing well without infection or skin separation. There is some bruising noted around the flap but no flap ischemia Signatures Electronically signed by : Sarah Nevarez MD; May 30 2021 3:18PM EST (Author) Normal [employer] Dermatopathologyon Dermatopathology Name MOISES KANG Pathologist: ANUJA [...] These were compared to the original melanoma (PD76-578) and are consistent with a metastatic focus [...] that were compared to the original melanoma (ME58-238) and are smaller with less cytoplasm compared [...] determined by the Department of Pathology at [facility]. The FDA does not require this test [...] landis-yellow irregularly shaped piece of skin measuring 43h86h5xk. The specimen is embedded in toto. B: Received in formalin is a landis-yellow irregularly shaped piece of skin measuring 00f6v4xm. The specimen is embedded in toto. C: Received in formalin is a landis-yellow irregularly shaped piece of skin measuring 27g94z7qz. The specimen is embedded in toto. D: Received in formalin is a landis ellipse of skin measuring [id number], oriented by the surgeon with short stitch [...] is at 12 o'clock. ink/05/21/2021 [facility] Dermatopathology [facility] [address] [id number] [place] [address], [facility] [address] [place] [address] Comment on above: Performed By: #### D #### Dermatopathology HCG,URINEon 05-17-2021 Beta HCG ( test) Ql (U) Negative Normal Negative [facility] Comment on above: Performed By: #### H CGU #### [facility] [address] [address] [place] [address] LYMPH GLANDon 05-17-2021 LYMPH GLAND Patient Name: AILYN KANG STUDY: LYMPH GLAND; 05/17/2021 12:45 pm INDICATION: Malignant melanoma of right posterior leg. COMPARISON: None. ACCESSION NUMBER(S): [id number] ORDERING CLINICIAN: SARAH NEVAREZ TECHNIQUE: DIVISION OF [...] as stated. This study was interpreted at [facility], [place], [place]. Electronically signed by: TAMY LAWTON MD Normal [facility] [place] Lymph Glandon 05-17-2021 NM Lymph node Views Normal [facility]-Blevins rgery-A dmin Main Work Phone: No Panel Informationon 05-17 [facility]-Owvpabn-A [facility] Work Phone: Order Reconciliationon 05-17 [...] 4 days PRN pain, Dx: G89.18 Normal [facility] Patient Profile - Preop v2on 05-17-2021 Patient Profile - Preop v2 Profile: Initial Info: How to be AddressedSamantha Spoken Language PreferredEnglish Source of Informationpatient Are you currently using the Personal Electronic Health Record or [employer] Are you interested in learning more about [facility] for the management of your healthnot at this time Stated Reason for Admissionwide excision melanoma right posterior leg, keystone flap and sentinel lymph node biopsy Primary Contact Name and NumberChleigh ann lao [phone] Limitations on Visitors/Phone Callsnone Patient Belongingsremains with patient Patient Belongings Remaining with Patientclothing; cell phone/electronics Medications Brought to Hospitalno General Health: Weight in kg63.6 kilogram(s) Weight in xqf819.2 pound(s) Weight Methodstated Height in feet5 feet Height in inches8 inch(es) Height in cm172.7 centimeter(s) Height Methodstated BMI (kg/m2)21.324 square meter Patient or Family Member Reaction to Anesthesianever had anesthesia Blood Avoidance/Restrictionsn one Previous Transfusion Reactionno Health Mgmt: Symptoms/Conditions Managed at [facility] Are You no Are You Currently Breastfeedingno Barriers to Managing Healthnone Relationship/Environ: Living Arrangementshouse Lives Withsignificant other Resource/Environmental Concernsnone Anticipated Transition T[facility]ral [facility] Anticipated at Transitionnone Substance: Current or [...] instruction; written material Cultural Considerationsnone Developmental Considerationsnone Mu-Ism Considerationsnone Other learner availableno [place] RiskPatient location auto qualifies him/her for HIGH RISK. Are there any cultural, spiritual, religion practices/values/needs that are important for us to knowno Do you want a visit/item from [facility] Would you like your Washroom Attendant/Junior Estimator notifiedno Pain Scalenumerical 0-10 Pain Scale Educationteaching [...] Last Updated: 17-May-2021 09:34 by Arabella Luis) [facility] Preop Checkliston 05-17-2021 Preop Checklist Preop Checklist: Preop Checklist: Arrival [id number] Arrival Time08:55 Procedure Typewide excision melanoma right posterior leg, keystone flap and sentinel lymph node biopsy Temperature C37.1 degrees C Temperature F98.7 degrees F Heart Rate92 beats per minute Respiratory Rate16 breath per minute Blood Pressure Kcctarml365 mm/Hg Blood Pressure Ruqdwmbbg66 mm/Hg NPO Zzatgs96-Hgu-5302 22:00 Allergy Bandno known allergies Consent Signedyes [...] Last Updated: 17-May-2021 09:36 by Arabella Luis) [facility] Urine Teston 05-17 HCG ( test) Ql (U) Negative Negative BP-Nphaqxk-E dmin Main Work Phone: Initial Visit (General [...] errors Chief Complaint Melanoma History of Present Fbzvawc61-ctzj-tmn woman referred from [facility] for right [...] Body mass index (BMI) [Ratio] 22.74 kg/m2 [employer] Work Phone: [facility] 11-28-2024 14:41-0500 Body weight 69.85 kg [employer] Work Phone: [facility] 11-28-2024 14:41-0500 Diastolic blood pressure 70 mm[Hg] [employer] Phone: [facility] 11-28-2024 14:41-0500 Systolic blood pressure 118 mm[Hg] [employer] Work Phone: [facility] 10-24-2024 14:44-0500 Body mass index (BMI) [Ratio] 22 kg/m2 Delvis Kt DO Work Phone: [facility] 10-24-2024 14:44-0500 Body weight 67.59 kg Delvis Kt DO Work Phone: [facility] 10-24-2024 14:44-0500 Diastolic blood pressure 68 mm[Hg] Delvis Kt DO Work Phone: [facility] 10-24-2024 14:44-0500 Systolic blood pressure 114 mm[Hg] Delvis Kt DO Work Phone: [facility] 10-11-2024 14:39-0500 Body height 175.3 cm Mike Wagner MD Work Phone: [facility] 10-11-2024 14:39-0500 Body mass index (BMI) [Ratio] 21.56 kg/m2 Mike Wagner MD Work Phone: [facility] 10-11-2024 14:39-0500 Body temperature 97.5 [degF] Mike Wagner MD Work Phone: [facility] 10-11-2024 14:39-0500 Body weight 66.22 kg Mike Wagner MD Work Phone: [facility] 10-11-2024 14:39-0500 Diastolic blood pressure 52 mm[Hg] Mike Wagner MD Work Phone: [facility] 10-11-2024 14:39-0500 Heart rate 106 /min Mike Wagner MD Work Phone: [facility] 10-11-2024 14:39-0500 Respiratory rate 22 /min Mike Wagner MD Work Phone: [facility] 10-11-2024 14:39-0500 SaO2% (BldA) [Mass fraction] 99 % Mike Wagner MD Work Phone: [facility] 10-11-2024 14:39-0500 Systolic blood pressure 118 mm[Hg] Mike Wagner MD Work Phone: [facility] 09-26-2024 15:17-0500 Body mass index (BMI) [Ratio] 21.34 kg/m2 Delvis Kt DO Work Phone: [facility] 09-26-2024 15:17-0500 Body weight 65.55 kg Delvis Kt DO Work Phone: [facility] 09-26-2024 15:17-0500 Diastolic blood pressure 68 mm[Hg] Delvis Kt DO Work Phone: [facility] 09-26-2024 15:17-0500 Systolic blood pressure 116 mm[Hg] Delvis Kt DO Work Phone: [facility] 08-26-2024 10:04-0400 Body mass index (BMI) [Ratio] 20.97 kg/m2 [facility] 08-26-2024 10:04-0400 Body weight 64.41 kg [facility] 08-26-2024 10:04-0400 Diastolic blood pressure 82 mm[Hg] [facility] 08-26-2024 10:04-0400 Systolic blood pressure 118 mm[Hg] [facility] 05-22-2023 08:55-0400 Body temperature 97.8 [degF] MD Sarah Nevarez Work Phone: [facility] 05-22-2023 08:55-0400 Body weight 69.85 kg MD Sarah Nevarez Work Phone: [facility] 05-22-2023 08:55-0400 Diastolic blood pressure 68 mm[Hg] MD Sarah Nevarez Work Phone: [facility] 05-22-2023 08:55-0400 Heart rate 79 /min MD Sarah Nevarez Work Phone: [facility] 05-22-2023 08:55-0400 Respiratory rate 16 /min MD Sarah Nevarez Work Phone: [facility] 05-22-2023 08:55-0400 SaO2% (BldA) [Mass fraction] 98 % MD Sarah Nevarez Work Phone: [facility] 05-22-2023 08:55-0400 Systolic blood pressure 108 mm[Hg] MD Sarah Nevarez Work Phone: [facility] 01-21-2023 14:57-0500 Body temperature 97.8 [degF] MD Sarah Nevarez Work Phone: [facility] 01-21-2023 14:57-0500 Body weight 67.2 kg MD Sarah Nevarez Work Phone: [facility] 01-21-2023 14:57-0500 Diastolic blood pressure 79 mm[Hg] MD Sarah Nevarez Work Phone: [facility] 01-21-2023 14:57-0500 Heart rate 72 /min MD Sarah Nevarez Work Phone: [facility] 01-21-2023 14:57-0500 Respiratory rate 16 /min MD Sarah Nevarez Work Phone: [facility] 01-21-2023 14:57-0500 SaO2% (BldA) [Mass fraction] 98 % MD Sarah Nevarez Work Phone: [facility] 01-21-2023 14:57-0500 Systolic blood pressure 119 mm[Hg] MD Sarah Nevarez Work Phone: [facility] 07-08-2022 13:02-0400 Body height 172.72 cm MD Amanda Rosario Work Phone: [facility] 07-08-2022 13:02-0400 Body temperature 98 [degF] MD Amanda Rosario Work Phone: [facility] 07-08-2022 13:02-0400 Body weight 67.81 kg MD Amanda Rosario Work Phone: [facility] 07-08-2022 13:02-0400 Diastolic blood pressure 71 mm[Hg] MD Amanda Rosario Work Phone: [facility] 07-08-2022 13:02-0400 Heart rate 95 /min MD Amanda Rosario Work Phone: [facility] 07-08-2022 13:02-0400 Respiratory rate 20 /min MD Amanda Rosario Work Phone: [facility] 07-08-2022 13:02-0400 SaO2% (BldA) [Mass fraction] 97 % MD Amanda Rosario Work Phone: [facility] 07-08-2022 13:02-0400 Systolic blood pressure 115 mm[Hg] MD Amanda Rosario Work Phone: [facility] 05-30-2021 14:47-0400 Body height 173 cm Price Girard Work Phone: JH-Iduvbfz-Zcjjj Main Work Phone: 05-30-2021 14:47-0400 Body mass index (BMI) [Ratio] 21.58 kg/m2 Price Girard Work Phone: PI-Pjatneq-Qmmyy Main Work Phone: 05-30-2021 14:47-0400 Body surface area Derived from formula 1.77 m2 Price Girard Work Phone: OV-Euigpdv-Vhxou Main Work Phone: 05-30-2021 14:47-0400 Body temperature 98.6 [degF] Price Girard Work Phone: LD-Agpyonl-Doyrx Main Work Phone: 05-30-2021 14:47-0400 Body weight 64.6 kg Price Girard Work Phone: UZ-Lkomqwq-Oxjdy Main Work Phone: 05-30-2021 14:47-0400 Diastolic blood pressure 77 mm[Hg] Price Girard Work Phone: RA-Aqydlji-Mskoo Main Work Phone: 05-30-2021 14:47-0400 Heart rate 103 /min Price Girard Work Phone: DF-Vdenunq-Pttet Main Work Phone: 05-30-2021 14:47-0400 Respiratory rate 16 /min Price Girard Work Phone: WR-Lpoiobz-Mdlod Main Work Phone: 05-30-2021 14:47-0400 SaO2% (BldA) [Mass fraction] 99 % Price Girard Work Phone: TR-Wonviyc-Dcisb Main Work Phone: 05-30-2021 14:47-0400 Systolic blood pressure 131 mm[Hg] Price Girard Work Phone: WK-Nijszws-Fvthy Main Work Phone: 05-30-2021 14:47-0400 0 1 Price Girard Work Phone: MG-Mtmuyac-Kwqna Main Work Phone: Comment on above: PainLorna [...] 18-39 yrs Delvis Kt DO Work Phone: [facility] Comment on above: Second trimester pre gnancy; 16 weeks gestation of ; Vaginal discharge; STD exposure; Screening, , for anatomic survey; Hematuria, unspecified type Start: 10-24-2024 End: 10-24-2024 Bamboo flowsheet Delvis Kt DO Work Phone: [facility] Start: 10-24-2024 End: 10-26-2024 Bamboo flowsheet Delvis Kt DO Work Phone: [facility] Start: 10-24-2024 End: 10-26-2024 External Result Encounter Delvis Kt DO Work Phone: [facility] External Department Unsolicited Start: 10-11-2024 End: 10-11-2024 Office outpatient visit 15 minutes Mike Wagner MD Work Phone: [facility] CWM FM Comment on above: Acute [...] flow sheet Delvis Kt DO Work Phone: [facility] OB Comment on above: First [...] Start: 08-19-2023 End: 08-19-2023 ambulatory Amanda Abraham Facility:[facility] Start: 05-22-2023 End: 05-22-2023 ambulatory MD Sarah Nevarez Work Phone: [facility] Work Phone: Start: 05-22-2023 End: 05-22-2023 Registered Recurring MD Sarah Nevarez Work Phone: [facility] Work Phone: Start: 04-07-2023 End: 04-08-2023 [...] 01-21-2023 ambulatory MD Sarah Nevarez Work Phone: [facility] Work Phone: Start: 01-21-2023 End: 01-21-2023 Registered Recurring MD Sarah Nevarez [facility] Phone: [facility] Work Phone: Start: 01-13-2023 End: 01-13-[address] DELVIS MERAZ . Facility:[facility] Start: 01-01-2023 Encounter for genera l adult medical examination without abnormal findings DR MIKE WAGNER [place] Start: 12-31-2022 End: 01-01-[address] MIKE WAGNER Facility:[facility] Start: 12-31-2022 End: 01-01-2023 Encounter for general adult medical examination without abnormal findings DR MIKE WAGNER Facility:[facility] Start: 07-08-2022 End: 07-08-2022 Registered Recurring MD Amanda Rosario Work Phone: [facility] Start: 06-16-2022 End: 06-16-[address] DELVIS MERAZ . Facility:[facility] Start: 04-09-[address] AMANDA ROSARIO Facility :[facility] Start: 06-22-2021 Chart Update Pirce Girard Work Phone: [facility] Work Phone: Start: 06-18-2021 [facility] of D ermatology Start: 05-30-2021 Postop follow up vis it related to original px Price Girard Work Phone: [facility] Work Phone: Procedures Date Procedure Procedure [...] AM EST Routine [facility] [address] [place] [id number] Delvis Meraz, DO [address] [address] [facility] Start: 11-28-2024 End: 11-28-2024 Patient encounter procedure 11/28/2024 2:10 PM EST Routine [facility] [address] [facility] [facility] [place] [id number] Delvis Meraz, DO [address] [place] [address] [facility] Start: 10-24-2024 End: 10-24-2024 Patient encounter procedure 10/24/2024 2:10 PM EST Routine [facility] [address] [facility] [place] [phone] Delvis Meraz, [address] [address] [facility] Start: 10-24-2024 End: 10-24-2025 Alpha fetoprotein, maternal Alpha fetoprotein, maternal Lab Routine Second trimester 16 weeks gestation of Expected: 10/24/2024 (Approximate), Expires: 10/24/2025 [facility] Comment on above: Expected: 10/24/2024 (Approximate), Expires: 10/24/2025 Start: 10-24-2024 End: 10-24-2025 US for US OB ANATOMY SINGLE W US OB CERVICAL LENGTH Imaging Routine Screening, , for anatomic survey Expected: 10/24/2024 (Approximate), Expires: 10/24/2025 [facility] Comment on above: Expected: 10/24/2024 (Approximate), Expires: 10/24/2025 Start: 09-26-2024 End: 09-26-2024 Patient encounter procedure 09/26/2024 2:20 PM EST Routine [facility] [address] [place] [phone] Delvis Meraz, [address] [address] [facility] Start: 08-26-2024 End: 08-26-2025 [...] first trimester Expected: 08/26/2024 (Approximate), Expires: 08/26/2025 [facility] Healthcare Comment on above: Expected: 08/26/2024 (Approximate), Expires: 08/26/2025 Start: 08-26-2024 End: 08-26-2025 US Pelvis transvaginal US OB transvaginal Imaging Routine Missed menses Expected: 08/26/2024 (Approximate), Expires: 08/26/2025 [facility] Healthcare Comment on above: Expected: 08/26/2024 (Approximate), Expires: 08/26/2025 Start: 08-26-2024 End: 08-26-2024 ambulatory 08/26/2024 10:00 AM EDT Initial [facility] [address] [facility] [facility] [place] [phone] [facility] Start: 08-26-2024 End: 08-26-2024 Professional / ancillary services management 08/26/2024 9:30 AM EDT Ancillary Procedure [facility] [address] [place] [place] [address] [facility] Start: 08-23-2024 End: 08-23-2024 Patient encounter procedure 08/23/2024 10:50 AM EDT Routine [facility] [address] [place] [place] [address] Delvis Meraz, [address] [place] [address] Arrived [facility] Comment on above: Arrived Start: 07-24-2024 Influenza vaccination Influenz a Vaccine (#1) [facility] Start: 05-23-2022 [facility] Start: 04-25-2022 [facility] Start: 03-28-2022 [facility] Start: 02-28-2022 [facility] Start: 01-31-2022 [facility] Start: 01-28-2022 [facility] Start: 12-31-2021 [facility] Start: 12-24-2021 [facility] Start: 11-29-2021 [facility] Start: 11-01-2021 [facility] Start: 10-28-2021 [facility] Start: 10-02-2021 End: 10-03-2021 [facility] Start: 09-06-2021 [facility] Start: 09-03-2021 [facility] Start: 08-08-2021 [facility] Start: 07-11-2021 [facility] Adrenocorticotropic hormone measurement [facility] Bacteria identified in Urine by Culture Urine culture Microbiology Routine Missed menses Ordered: 08/26/2024 [facility] Comment on above: Ordered: 08/26/2024 Bacteria identified in Urine by Culture Urine culture Microbiology Routine Hematuria, unspecified type Ordered: 10/24/2024 [facility] Comment on above: Ordered: 10/24/2024 CBC W Auto Different ial panel - Blood CBC and differential Lab Routine Missed menses , unspecified gestational age Ordered: 08/26/2024 [facility] Comment on above: Ordered: 08/26/2024 CHLAMYDIA TRACHOMATI S (GENITO/STI) CHLAMYDIA TRACHOMATIS (GENITO/STI) Lab Routine STD exposure Ordered: 10/24/2024 [facility] Comment on above: Ordered: 10/24/2024 Comprehensive metabo lic 1999 panel - Serum or Plasma [facility] Work Phone: Comprehensive metabo lic 1999 panel - Serum or Plasma [facility] Comprehensive metabo lic 1999 panel - Serum or Plasma [facility] Comprehensive metabo lic 1999 panel - Serum or Plasma [facility] CT Abdomen and Pelvi s W contrast IV [facility] Work Phone: CT Abdomen and Pelvi s W contrast IV [facility] CT Abdomen and Pelvi s W contrast IV [facility] CT Chest W contrast IV [facility] Work Phone: CT Chest W contrast IV [facility] CT Chest W contrast IV [facility] Ferritin [Mass/volum e] in Serum or Plasma [facility] Work Phone: Hemoglobin A1c/Hemoglobin.total in Blood Hemoglobin A1c Lab Routine Missed menses , unspecified gestational age Ordered: 08/26/2024 [facility] Comment on above: Ordered: 08/26/2024 Hepatitis B virus blevins rface Ag [Presence] in Serum or Plasma by Immunoassay Hepatitis B surface antigen Lab Routine Missed menses , unspecified gestational age Ordered: 08/26/2024 [facility] Comment on above: Ordered: 08/26/2024 Hepatitis C virus Ab [Presence] in Serum or Plasma by Immunoassay Hepatitis C antibody Lab Routine Missed menses , unspecified gestational age Ordered: 08/26/2024 [facility] Comment on above: Ordered: 08/26/2024 HIV-1/HIV-2 antigen/ antibody combination immunoassay HIV-1 and HIV-2 antibodies Lab Routine Missed menses , unspecified gestational age Ordered: 08/26/2024 [facility] Comment on above: Ordered: 08/26/2024 Lactate dehydrogenas e [Enzymatic activity/volume] in Unspecified specimen [facility] Work Phone: Neisseria gonorrhoea e DNA [Presence] in Unspecified specimen by PARMINDER with probe detection Neisseria gonorrhea DNA probe, direct Lab Routine STD exposure Ordered: 10/24/2024 [facility] Comment on above: Ordered: 10/24/2024 Reagin Ab [Presence] in Serum by RPR RPR Lab Routine Missed menses , unspecified gestational age Ordered: 08/26/2024 [facility] Comment on above: Ordered: 08/26/2024 Rubella antibody, IgG Rubella an tibody, IgG Lab Routine Missed menses , unspecified gestational age Ordered: 08/26/2024 [facility] Comment on above: Ordered: 08/26/2024 SURESWAB(R) ADVANCED VAGINITIS PLUS, TMA SURESWAB(R) ADVANCED VAGINITIS PLUS, TMA Pathology and Cytology Routine Vaginal discharge Ordered: 10/24/2024 [facility] Work Phone: Comment on above: Ordered: 10/24/2024 Thyrotropin [Units/v olume] in Serum or Plasma [facility] Thyroxine (T4) free [Mass/volume] in Serum or Plasma [facility] Triiodothyronine (T3 ) Free [Mass/volume] in Serum or Plasma [facility] Work Phone: [facility] Immunizations Immunization Date Immunization Notes Care Provider [facility] 07-09-2018 influenza virus vaccine, unspecified formulation Generic Provider [facility] 1997 pneumococcal conjuga te vaccine, 7 valent Essence Blevins Dept. 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 Payers Date Payer Category Payer Unknown [id number] 2022 Blue Cross Blue Shield [id number] 2022 Unknown 2021 Self-pay [id number] 2021 Unknown [id number] 2021 Unknown [id number] 2019 Unknown [id number] 1997 Unknown [id number] 2.16.84 0.1.188527.3.579.2.593 1997 Unknown [id number] 2.16.84 0.1.981820.3.579.2.593 1997 Unknown [id number] 2.16.84 0.1.089258.3.579.2.593 1997 Unknown [id number] 2.16.84 0.1.730547.3.579.2.593 1997 Unknown [id number] 2.16.84 0.1.015766.3.579.2.593 1997 Unknown [id number] 2.16.84 0.1.289397.3.579.2.593 1997 Unknown [id number] 2.16.84 0.1.868821.3.579.2.593 1997 Unknown [id number] 2.16.84 0.1.406291.3.579.2.593 1997 Unknown [id number] 2.16.84 0.1.660901.3.579.2.593 1997 Unknown [id number] 2.16.84 0.1.512277.3.579.2.593 1997 Unknown [id number] 2.16.84 0.1.120735.3.579.2.1258 1997 Unknown [id number] 2.16.84 0.1.469245.3.579.2.1258 1997 Unknown [id number] 2.16.84 0.1.542496.3.579.2.1258 1997 Unknown [id number] 2.16.84 0.1.445056.3.579.2.1258 1997 Unknown [id number] 2.16.84 0.1.049025.3.579.2.1258 1997 Unknown [id number] 2.16.84 0.1.092448.3.579.2.1258 1997 Unknown [id number] 2.16.84 0.1.348481.3.579.2.1258 1959 Unknown [id number] 1959 Unknown [id number] Unknown [id number] 2.16.8 40.1.368755.3.579.2.531 Social History Date Type Detail Facility Start: 06-18-2021 Dept. 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 Start: 1995 Sex Assigned At Female [facility] Start: 07-08-2022 End: 04-10-2023 Tobacco smoking status NHIS Never smoked tobacco (finding) [facility] Start: 04-10-2023 Tobacco use and exposure Smokeless tobacco non-user [facility] Start: 02-22-2024 End: 10-11-2024 Alcoholic beverage intake Ex-drinker (finding) [facility] Start: 02-22-2024 End: 10-11-2024 History of Social function [facility] Start: 02-22-2024 End: 10-11-2024 Social connection and isolation panel [facility] Do you belong to any clubs or organizations such as denominational groups, unions, fraternal or athletic groups, or [...] nursing note reviewed. Exam conducted with a turning machine set up operator present. Vitals: Estimated body mass index is [...] Delvis Meraz DO documented in this encounter [facility] 10-24-2024 History of Presen t illness Narrative [...] nursing note reviewed. Exam conducted with a turning machine set up operator present. Vitals: Estimated body mass index is [...] Delvis Meraz DO documented in this encounter [facility] 10-11-2024 History of Presen t illness Narrative [...] 300 MG capsule documented in this encounter [facility] 09-26-2024 History of Presen t illness Narrative [...] nursing note reviewed. Exam conducted with a turning machine set up operator present. Vitals: Estimated body mass index is [...] or undercooked meat, and stay away from [facility]. Patient has been consulted regarding any [...] Amanda Gonzalez PA-C documented in this encounter [facility] 08-26-2024 History of Presen t illness Narrative [...] or undercooked meat, and stay away from [facility]. Patient has also been advised to [...] by: Jasmyne Segura documented in this encounter [facility] 05-23-2023 Progress note Note Date/Time May 22, 2023 9:03[facility] [place] [address] Hem/Onc Follow Up Note - OP Signed Patient: Ailyn Resendiz MR#: [id number] : 1995 Acct:[id number] Age/Sex: 27 / F Type: REG RCR [...] of restaging CT CAP by phone with DISTRICT SERVICE MANAGER in October--no evidence of recurrence. Saw dermatology [...] dyspepsia. We will coordinate parenteral iron at [facility] per her request. Normal thyroid, cortisol,and [...] trauma. She was seen by dermatology at [facility] in [place] and underwent a biopsy of the right [...] weakness. I reviewed her imaging with Dr. Penyn--should not require further workup of this in [...] 3. Venofer for iron deficiency anemia at [facility] 03/2022 ROS Details: All systems reviewed [...] infusion reaction in February 2022. [facility] - History Attestation statement: The following [...] DAILY PRN Anxiety 06/18/21 [History Confirmed 05/22/23] ZGX-gaim-HM-omega 3-fat com #1 27 mg-1 mg-300 mg [...] Creatinine Clear 154.92, Sodium 136, Potassium 4.2, Gqxinydh254, Carbon Dioxide 26.1, Anion Gap 10.1, BUN [...] % (Auto) 79.8, Lymph % (Auto) 12.8, [place] % (Auto) 6.4, Eos % (Auto) 0.6, Baso % (Auto) 0.4, Nucleat RBC Rel Count 0.2, Neut # (Auto) 8.2 H, Lymph # (Auto) 1.3, [place] # (Auto) 0.7, Eos # (Auto) 0.1, [...] 4% with ferritin 7. Coordinated Venofer infusionsat [facility] (300mg IV x 3 doses) 03/2022 with followup CBC, serum iron profile, and ferritin in one month. Consider GI evaluation for iron deficiency. 07/09/2022: She is doing well on oral iron recommended by her enterprise architect. She does not plan to have children anytime soon, but discussed with her enterprise architect the best iron supplementation to be on [...] for coordination of care (as documented) and jhpg-gz-gtyi counseling of patient and/or family. Dictated By: Amanda Rosario MD DD/ 09 Signed By: <Electronically signed by MD Amanda Rosario> 05/23/23 6028 [facility] Work Phone: 1(473) 507-480103-01-2023 Progress note Author Amanda Rosario [facility] January 21, 2023 8:51pm Note Date/Time January 21, 2023 3:01 pm [facility] [place] [address] Hem/Onc Follow Up Note - OP Signed Patient: Ailyn Resendiz MR#: [id number] : 1995 Acct:[id number] Age/Sex: 27 / F Type: REG RCR Copies to: MD Mike Ewing MD~ Subjective Date/Time of Service: Date of Service: 01/21/2023 Time of Service: 15:00 Chief Complaint: Patient is here today for a 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 No new concerns HPI: 01/21/2023: Ailyn had review of restaging CT CAP by phone with DISTRICT SERVICE MANAGER in October--no evidence of recurrence. Saw dermatology [...] dyspepsia. We will coordinate parenteral iron at [facility] per her request. Normal thyroid, cortisol,and [...] trauma. She was seen by dermatology at [facility] in [place] and underwent a biopsy of the right [...] 3. Venofer for iron deficiency anemia at [facility] 03/2022 ROS Details: All systems reviewed [...] DAILY PRN Anxiety 06/18/21 [History Confirmed 01/21/23] IAK-yini-SL-omega 3-fat com #1 27 mg-1 mg-300 mg [...] 4% with ferritin 7. Coordinated Venofer infusionsat [facility] (300mg IV x 3 doses) 03/2022 with followup CBC, serum iron profile, and ferritin in one month. Consider GI evaluation for iron deficiency. 07/09/2022: She is doing well on oral iron recommended by her enterprise architect. She does not plan to have children anytime soon, but discussed with her enterprise architect the best iron supplementation to be on [...] for coordination of care (as documented) and gobm-ah-nfel counseling of patient and/or family. Dictated By: Amanda Rosario MD DD/ 1500 Signed By: <Electronically signed by MD Amanda Rosario> 01/21/232050 [facility] Work Phone: 1(871) 671-173308-17-2022 Progress note Author Ale Malone [facility] July 09, 2022 1:35pm Note Date/Time July 08, 2022 1: 31pm [facility] [place] [address] Hem/Onc Follow Up Note - OP Signed with Addenda Patient: Ailyn Resendiz MR#: [id number] : 1995 Acct:[id number] Age/Sex: 27 / F Type: REG RCR [...] dyspepsia. We will coordinate parenteral iron at [facility] per her request. Normal thyroid, cortisol,and [...] trauma. She was seen by dermatology at [facility] in [place] and underwent a biopsy of the right [...] % (Auto) 61.2, Lymph % (Auto) 26.6, [place] % (Auto) 9.7, Eos % (Auto) 1.2, Baso % (Auto) 1.3, Neut # (Auto) 3.4, Lymph # (Auto) 1.5, [place] # (Auto) 0.5, Eos# (Auto) 0.1, Baso [...] ferritin 7. Will have Venofer infusions at [facility] (300mg IV x 3 doses) with followup CBC, serum iron profile,and ferritin in one month. Consider GI evaluation for iron deficiency. 07/09/2022: She is doing well on oral iron recommended by her enterprise architect. She does not plan to have children anytime soon, but discussed with her enterprise architect the best iron supplementation to be on [...] for coordination of care (as documented) and uxyo-ti-dzjx counseling of patient and/or family. Dictated By: Ale Malone APRN DD/ 1331 Signed By: <Electronically signed by KIKI Malone> 07/09/22 0958 [facility] Work Phone: 1(224) 691-823405-12-2022 Progress note Author Amanda Rosairo [facility] April 03, 2022 8:56pm Note Date/Time April 02, 2022 8:30p m [facility] [place] [address] Hem/Onc Follow Up Note - OP Signed Patient: Ailyn Resendiz MR#: [id number] : 1995 Acct:[id number] Age/Sex: 26 / F Type: REG RCR [...] dyspepsia. We will coordinate parenteral iron at [facility] per her request. Normal thyroid, cortisol,and [...] trauma. She was seen by dermatology at [facility] in [place] and underwent a biopsy of the right [...] Creatinine Clear 115.14, Sodium 136, Potassium 4.1, Ohkryzyx473, Carbon Dioxide 24.5, BUN 9, Creatinine 0.76, [...] % (Auto) 46.7, Lymph % (Auto) 30.6, [place] % (Auto) 20.8, Eos % (Auto) 0.9, Baso % (Auto) 1.0, Neut # (Auto) 1.6 L, Lymph # (Auto) 1.1, [place] # (Auto) 0.7, Eos # (Auto) 0.0, [...] ferritin 7. Will have Venofer infusions at [facility] (300mg IV x 3 doses) with [...] for coordination of care (as documented) and cxwx-db-gksr counseling of patient and/or family. Dictated By: Amanda Rosario MD DD/ 28 Signed By: <Electronically signed by MD Amanda Rosario> 04/03/222055 [facility] Work Phone: 1([phone]) 169-235402-23-2022 Progress note Author Amanda Rosario [facility] January 15, 2022 9:15pm Note Date/Time January 15, 2022 11:55am [facility] [place] [id number] Hem/Onc Follow Up Note - OP Signed Patient: Ailyn Knag MR#: [id number] : 1995 Acct:[id number] Age/Sex: 26 / F Type: REG RCR [...] trauma. She was seen by dermatology at [facility] in [place] and underwent a biopsy of the right [...] for coordination of care (as documented) and hhqd-zt-koam counseling of patient and/or family. Dictated By: Amanda Rosario MD DD/ 1155 Signed By: <Electronically signed by MD Amanda Rosario> 01/15/22 2115 [facility] Work Phone: 1(222) 435-992911-11-2021 Progress note Author Denia Alvares [facility] October 03, 2021 10:47am Note Date/Time October 03, 2021 10:34am [facility] [place] [address] Hem/Onc Follow Up Note - OP Signed Patient: Ailyn Kang MR#: [id number] : 1995 Acct:[id number] Age/Sex: 26 / F Type: REG RCR Copies to: MD rPice Ewing MD~ Subjective Date/Time of Service: Date [...] trauma. She was seen by dermatology at [facility] in [place] and underwent a biopsy of the right [...] Creatinine Clear 112.19, Sodium 139, Potassium 4.1, Bjvyrbrv613, Carbon Dioxide 26.4, BUN 9, Creatinine 0.78, [...] % (Auto) 66.7, Lymph % (Auto) 23.1, [place] % (Auto) 8.3, Eos % (Auto) 1.0, Baso % (Auto) 0.9, Neut # (Auto) 5.0, Lymph # (Auto) 1.7, [place] # (Auto) 0.6, Eos# (Auto) 0.1, Baso [...] for coordination of care (as documented) and cxma-fb-sloe counseling of patient and/or family. Dictated By: Denia Alvares APRN DD/ 1025 Signed By: <Electronically signed by KIKI Alvares> 10/03/21 1047 [facility] Work Phone: 1([phone]) 569-467508-27-2021 Progress note Author Amanda Rosario [facility] July 19, 2021 12:54pm Note Date/Time July 18, 2021 2: 10pm [facility] [place] [address] Hem/Onc Follow Up Note - OP Signed Patient: Ailyn Kang MR#: [id number] : 1995 Acct:[id number] Age/Sex: 26 / F Type: REG RCR [...] trauma. She was seen by dermatology at [facility] in [place] and underwent a biopsy of the right [...] environmental allergies and food allergies. 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 Dictated By: Amanda Rosario MD DD/ 1409 Signed By: <Electronically signed by MD Amanda Rosario> 07/19/21 9379 [facility] Work Phone: 1(266) 976-442108-03-2021 Consult note Author Amanda Rosario [facility] June 24, 2021 10:09pm Note Date/Time June 24, 2021 2:1 8pm [facility] [place] [address] Hem/Onc Consult Note - OP Signed Patient: Ailyn Kang MR#: [id number] : 1995 Acct:[id number] Age/Sex: 26 / F Type: REG RCR [...] trauma. 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 Note Recipients: Price Girard MD - [id number] [] Cassy Bettina NALDO Nava - [phone] [] Attestation: Note Completion: Attending AttestationI performed the procedure without a resident Electronic Signatures: Sarah Nevarez) (Signed 17-May-2021 18:18) Authored: Post-Operative Note, Chart Review, Note Completion Last Updated: 17-May-2021 18:18 by Sarah Nevarez)[facility] History of Present illness [id number] woman who underwent wide excision right posterior calf melanoma with Barrow flap reconstruction as well as right inguinal and iliac sentinel lymph node biopsy on 05/17/2021. Pathology report has not yet resulted. She is recovering well.[facility] Main Work Phone: 1(103) 446-429306-25-2021 History of Present illness Narrative 25-year-old woman who underwent wide excision right posterior calf melanoma with Barrow flap reconstruction as well as right inguinal and iliac sentinel lymph node biopsy on 05/17/2021. Pathology report has not yet resulted. She is recovering well.[facility] Work Phone: 1(225) 995-197406-25-2021 NoteHistory & Physical Reviewed: /Lactating: Are You [...] Patient Profile - Preop v2 17-May-2021 09:27[facility]06-22-2021 NoteAccession #: [id number] Pathologist: ANUJA OLIVO MD Date of Procedure: 05/14/2021 Date Received: 05/14/2021 Submitting Physician: SARAH NEVAREZ MD Location: [facility] Copy To/Referring/Attending: ROLY EDGE DO FINAL DIAGNOSIS 2 SLIDES[facility] #[id number] (BX: 04/23/2021) SKIN, RT POST LEG, SHAVE [...] MD. CANCER SUMMARY REPORT A. 2 SLID[facility] #[id number] (BX: 04/23/2021): SPECIMEN Procedure: Biopsy, shave Specimen [...] report. Primary Tumor (pT): pT3b ADDITIONAL TESTING DIRECTOR GENERAL BLOCKS: Tumor Block: CSPL slide [id number] Electronically Signed Out By ANUJA OLIVO MD/BRR Microscopic Description: Microscopic examination performed. Clinical History: SHAVE/ BCC VS MM VS PG 1.9 X 1.9CM Specimens Submitted As: A: 2 SLIDES[facility] #[id number] (BX: 04/23/2021) Gross Description: Received for consultation from [facility] are two slides labeled [id number] (BX: 04/23/2021) along with the corresponding pathology report. Slide/Block Description 2 SLIDES, [id number]. Keep Slides: N Slides Returned: N [facility]:Performed By: #### D #### DermatopathologyEvaluation noteN/ADept. 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 Evaluation note* Diagnosis Onset Date Resolution Status Iron deficiency anemia acute Chiari malformation type I c hronic Edema of right lower extremity chronic Encounter for antineoplastic immunotherapy chronic Malignant melanoma of right lower leg chronic [facility] Work Phone: Evaluation note* Diagnosis Onset Date Resolution Status Chiari malformation type I c hronic Edema of right lower extremity chronic Encounter for antineoplastic immunotherapy chronic Iron deficiency anemia chron ic Malignant melanoma of right lower leg chronic [facility] Work Phone: Evaluation noteNo assessment information available [facility] Work Phone: Evaluation note* Diagnosis Missed menses [...] Hematuria, unspecified type documented in this encounter [facility] HealthcareEvaluation note* Diagnosis Acute non-recurrent pansinusitis- Primary Second trimester state, incidental Malignant melanoma of right lower limb, including hip (CMS/HCC) documented in this encounter [facility] HealthcareEvaluation note* Diagnosis Acute non-recurrent pansinusitis- Primary Second trimester state, incidental Malignant melanoma of right lower limb, including hip (CMS/HCC) Second trimester state, incidental 21 weeks gestation of documented in this encounter [facility] Discharge instructionsAmbulatory Orders* RISE Order Time Frame: 1 Day, Location: Determined By Patient * Survivourship Follow Up Time Frame: 3 Months, Location: Determined By Patient [facility] Work Phone: Progress note Author Ale Malone [facility] July 09, 2022 1:35pm Note Date/Time July 08, 2022 1: 31pm [facility] [place] [address] Hem/Onc Follow Up Note - OP Signed with Addenda Patient: Ailyn Resendiz MR#: [id number] : 1995 Acct:[id number] Age/Sex: 27 / F Type: REG RCR [...] well controlled with stool softeners as needed. Otherwisetrudie has no new complaints. Inguinal US was [...] dyspepsia. We will coordinate parenteral iron at [facility] per her request. Normal thyroid, cortisol,and [...] trauma. She was seen by dermatology at [facility] in [place] and underwent a biopsy of the right [...] % (Auto) 61.2, Lymph % (Auto) 26.6, [place] % (Auto) 9.7, Eos % (Auto) 1.2, Baso % (Auto) 1.3, Neut # (Auto) 3.4, Lymph # (Auto) 1.5, [place] # (Auto) 0.5, Eos# (Auto) 0.1, Baso [...] ferritin 7. Will have Venofer infusions at [facility] (300mg IV x 3 doses) with followup CBC, serum iron profile,and ferritin in one month. Consider GI evaluation for iron deficiency. 07/09/2022: She is doing well on oral iron recommended by her enterprise architect. She does not plan to have children anytime soon, but discussed with her enterprise architect the best iron supplementation to be on [...] for coordination of care (as documented) and bvfr-rp-pmty counseling of patient and/or family. Dictated By: Ale Malone APRN DD/ 1331 Signed By: <Electronically signed by KIKI Malone> 07/09/22 1604 [facility] Work Phone: Progress note Author Amanda Rosario [facility] January 21, 2023 8:51pm Note Date/Time January 21, 2023 3:01 pm [facility] [place] [id number] Hem/Onc Follow Up Note - OP Signed Patient: Ailyn Resendiz MR#: [id number] : 1995 Acct:[id number] Age/Sex: 27 / F Type: REG RCR Copies to: MD Mike Ewing MD~ Subjective Date/Time of Service: Date of Service: 01/21/2023 Time of Service: 15:00 Chief Complaint: Patient is here today for a 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 No new concerns HPI: 01/21/2023: Ailyn had review of restaging CT CAP by phone with DISTRICT SERVICE MANAGER in October--no evidence of recurrence. Saw dermatology [...] dyspepsia. We will coordinate parenteral iron at [facility] per her request. Normal thyroid, cortisol,and [...] trauma. She was seen by dermatology at [facility] in [place] and underwent a biopsy of the right [...] 3. Venofer for iron deficiency anemia at [facility] 03/2022 ROS Details: All systems reviewed [...] infusion reaction in February 2022. [facility] - History Attestation statement: The following [...] DAILY PRN Anxiety 06/18/21 [History Confirmed 01/21/23] JLN-sebf-NM-omega 3-fat com #1 27 mg-1 mg-300 mg [...] 4% with ferritin 7. Coordinated Venofer infusionsat [facility] (300mg IV x 3 doses) 03/2022 with followup CBC, serum iron profile, and ferritin in one month. Consider GI evaluation for iron deficiency. 07/09/2022: She is doing well on oral iron recommended by her enterprise architect. She does not plan to have children anytime soon, but discussed with her enterprise architect the best iron supplementation to be on [...] for coordination of care (as documented) and bidx-ry-zxrw counseling of patient and/or family. Dictated By: Amanda Rosario MD DD/ 1500 Signed By: <Electronically signed by MD Amanda Rosario> 01/21/232050 [facility] Work Phone: Reason for referral (narrative)* Name [...] DATE CREATED AUTHOR AUTHOR'S ORGANIZ ATION 06/18/2021 [facility] DATE CREATED AUTHOR AUTHOR'S ORGANIZ ATION 08/01/2021 [facility] DATE CREATED AUTHOR AUTHOR'S ORGANIZ ATION 01/18/2022 [facility] DATE CREATED AUTHOR AUTHOR'S ORGANIZ ATION 04/08/2023 [facility] DATE CREATED AUTHOR AUTHOR'S ORGANIZ ATION 09/25/2024 [facility] DATE CREATED AUTHOR AUTHOR'S ORGANIZ ATION 12/04/2024 [facility] EPIC Care Teams (unrecognized sec tion and content) Team Status: Active Member Role Status Dates Mike Wagner MD Primary Care Provider Active Team Status: Active Member Role Status Dates Amanda Rosario MD Attending Provider Active Sarah Nevarez MD Referring Provider Active Mike Wagner MD Primary Care Provider Active Director Education Relationship Specialty Start Date End Date Mike Wagner MD [address] [place] [phone] PCP - General Family Medicine 02/09/24 Shaikh Melendrez MD [address] [place] [address] PCP - [facility] 08/23/23 Director Education Relationship Specialty Start Date End Date Mike Wagner MD [address] [place] [address] PCP - General Family Medicine 02/09/24 Shaikh Melendrez MD [address] [place] [address] PCP - [facility] 08/23/23 Director Education Relationship Specialty Start Date End Date Mike Wagner MD [address] [place] [address] PCP - General Family Medicine 02/09/24 Shaikh Melendrez MD [address] [place] [address] PCP - [facility] 08/23/23 Director Education Relationship Specialty Start Date End Date Mike Wagner MD [address] [place] [address] PCP - General Family Medicine 02/09/24 Melissa Zhou NP [address] [place] [address] PCP - [facility] 08/23/24 Director Education Relationship Specialty Start Date End Date Mike Wagner MD [address] [place] [address] PCP - General Family Medicine 02/09/24 Melissa Zhou NP [address] [place] [address] PCP - [facility] 08/23/24 Director Education Relationship Specialty Start Date End Date Mike Wagner MD [address] [place] [address] PCP - General Family Medicine 02/09/24 Melissa Zhou NP [address] [place] [address] PCP - [facility] 08/23/24 Director Education Relationship Specialty Start Date End Date Mike Wagner MD [address] [place] [address] PCP - General Family Medicine 02/09/24 Melissa Zhou NP [address] [place] [address] PCP - [facility] 08/23/24 Director Education Relationship Specialty Start Date End Date Mike Wagner MD [address] [place] [address] PCP - General Family Medicine 02/09/24 Melissa Zhou NP [address] [place] [address] PCP - [facility] 08/23/24 Director Education Relationship Specialty Start Date End Date Mike Wagner MD [address] [place] [address] PCP - General Family Medicine 02/09/24 Shaikh Melendrez MD [address] [place] [address] PCP - [facility] 08/23/23 Director Education Relationship Specialty Start Date End Date Mike Wagner MD [address] [place] [address] PCP - General Family Medicine 02/09/24 Melissa Zhou NP [address] [place] [address] PCP - [facility] 08/23/24 Goals (unrecognized section and content) [...] BE BASED ON THE PRIMARY CLINICAL RECORDS. [facility]. provides no warranty or guarantee of the accuracy or completeness of information in this document.
== END 2024-12-26 15:24 | disposition home or self-care (01) ==
LOC: US 15:23
PROVIDERS: PCP Family Medicine; Visit Provider Obstetrics & Gynecology
DX: Z36.86 Encounter for antenatal screening for cervical length (principal); Z3A.25 25 weeks gestation of pregnancy
CPT/HCPCS: 76817

== ENCOUNTER 2025-01-09 07:52 | Outpatient (OUT) | payer BC, SELFPAY ==
--- OUTSIDE RECORDS SUMMARY | 2025-01-09 08:15 | XMS_ITS | CCD ---
Author Organization [facility] Care Team Providers Care Kitchen Food Server Name Role Phone Price Girard Unavailable Unavailable Unavailable Essence Blevins Unavailable Unavailable MD Amnada Rosario Attending Provider MD Sarah Nevarez Referring Provider [phone] MD Mike Wagner Primary Care Provider MD Amanda Rosario Attending Provider MD Sarah Nevarez Referring Provider [phone] MD Mike Wagner Primary Care Provider [phone] KT [address] ARROYO Admitting Unavailable KT [...] Unavailable Mike Wagner Primary Care Unavailable Abelardo CORE WORKER, Melissa Unavailable DELVIS MERAZ Attending Unavailable KT, DELVIS Attending Unavailable MELISSA ZHOU Attending Unavailable DELVIS [...] 10 days. 20 capsule 10/11/2024 10/21/2024 Active cephalexin 500 mg oral capsule (4 sources) Cephalosporin Antibacterial Start: 12-26-2024 End: 01-02-2025 take 1 capsule by mouth in the morning, then take 1 capsule by mouth in the evening, then take 1 capsule by mouth at bedtime cephalexin (Keflex) 500 MG capsule Indications: Urinary tract infection without hematuria, site unspecified Take 1 capsule (500 mg) by mouth in the morning and 1 capsule (500 mg) in the evening and 1 capsule (500 mg) before bedtime. Do all this for 7 days. 21 capsule 12/26/2024 01/02/2025 Active Magnesium (2 sources) Start: 08-19-2023 take 400 mg by mouth once daily Magnesium Active 400 MG PO Daily August 19, 2023 12:00am Magnesium Oxide (19 sources) magnesium oxide (Mag-Ox) 400 mg tablet 400 mg Daily Active Multiple Vitamin (multivitamin) tablet (3 sources) take 1 tablet by mouth once daily Multiple Vitamin (multivitamin) tablet Take 1 tablet by mouth Daily Active Ovk-Pesi-Hr-Stonewall 3-Fat Com #1 (Pre-Jeanette Multivitamins/Min erals) 27-1-300 mg Capsule (4 sources) Start: 01-21-2023 Tms-Pdqw-Wc-Stonewall 3-Fat Com #1 (Pre-Jeanette Multivitamins/Mine rals) 27-1-300 mg Capsule Active CAP PO January 21, 2023 1:00am Start: 01-21-2023 Cdn-Tsin-Cz-Om ega 3-Fat Com #1 (Pre-Jeanette Multivitamins/Minerals) 27-1-300 mg Capsule Active CAP PO January 21, 2023 12:00am MV-Min-Fe Fum-FA-DH A ( 1 PO) (19 sources) MV-Min- Fe Fum-FA-DHA ( 1 PO) [...] 18, 2021 12:00am June 24, 2021 2:04pm phenazopyridine hydrochloride 100 mg oral tablet (2 sources) Start: 12-28-2024 End: 12-30-2024 take 1 tablet by mouth three times daily as needed for muscle spasms phenazopyridine (Pyridium) 100 MG tablet Indications: Urinary tract infection without hematuria, site unspecified Take 1 tablet (100 mg) by mouth 3 (three) times a day as needed for bladder spasms for up to 2 days 6 tablet 12/28/2024 12/30/2024 Progesterone 200 MG suppository (6 sources) Start: [...] conditions (not mental disorders or infectious disease) (8 sources) Encounter for screening for malignant neoplasm of cervix; Translations: [Patient encounter status] Onset: 01-13-2023 Episodic Other upper respiratory infections (15 sources) Acute pansinusitis; Translations: [Acute pansinusitis, unspecified] [...] [21 weeks gestation of ] 11-28-2024 Episodic Residual codes; unclassified (2 sources) Gestation period, 25 weeks; Translations: [25 weeks gestation of ] 12-28-2024 Episodic Skin and subcutaneous tissue infections (4 sources) Cellulitis; Translations: [Cellulitis and abscess of unspecified sites] Episodic Urinary tract infections (2 sources) Urinary tract infectious disease; Translations: [Urinary tract infection, site not specified] 12-28-2024 Episodic Past or Other Problems Problem Classification Problem Date Documented Date Episodic/Chronic Acute and chronic tonsillitis (20 sources) Acute tonsillitis; Translations: [Acute tonsillitis due to other specified organisms] Onset: 02-22-2024 Resolved: 10-11-2024 02-22-2024 Episodic Deficiency and other anemia (20 sources) Anemia; Translations: [Anemia, unspecified] Onset: 04-14-2023 04-14-2023 Episodic Esophageal disorders (20 sources) Laryngopharyngeal reflux; Translations: [Gastro-esophageal reflux disease without esophagitis] Onset: 02-22-2024 Resolved: 10-11-2024 02-22-2024 Chronic Menstrual disorders (20 sources) Irregular menstruation, unspecified; Translations: [Amenorrhea, unspecified] Onset: 02-27-2023 Resolved: 10-11-2024 Chronic Other female genital disorders (4 sources) Other specified noninflammatory disorders of vagina; Translations: [OTH SPEC NONINFLAMMATORY D/O VAGINA] Onset: 06-16-2022 Episodic Other female genital disorders (20 sources) Polyp of cervix; Translations: [Polyp of cervix uteri] Onset: 04-14-2023 04-14-2023 Episodic Other female genital disorders (20 sources) Disorder of female genital system; Translations: [Unspecified condition associated with female genital organs and menstrual cycle] Onset: 04-14-2023 04-14-2023 Episodic Other female genital disorders (20 sources) Noninflammatory disorder of the vagina; Translations: [Other specified noninflammatory disorders of vagina] Onset: 04-14-2023 04-14-2023 Episodic Other lower respiratory disease (20 sources) Solitary nodule of lung; Translations: [Solitary pulmonary nodule] Onset: 04-14-2023 04-14-2023 Episodic Otitis media and related conditions (20 sources) Acute suppurative otitis media without spontaneous rupture of ear drum; Translations: [Acute suppurative otitis media without spontaneous rupture of ear drum, right ear] Onset: 02-22-2024 Resolved: 10-11-2024 02-22-2024 Episodic Results Test Name Value Interpretation Reference Range Facility Urinalysis macro (dipstick) panel (U)on 12-28-2024 Bilirubin, UA Negative Negative - 4(70) +++ mg/dL [facility] Blood, UA Positive Negative - 50 Naveed/mcL [facility] Clarity, UA Clear [facility] Color, UA Yellow [facility] Glucose, UA Negative Negative - 2000(110) ++++ mg/dL [facility] Interpretation and review of laboratory results Abnormal [facility] Ketones, UA Negative Negative - 160(16) ++++ mg/dL [facility] Leukocytes, UA Negative Negative - 500+++ José Luis/mcL [facility] Nitrite, UA Negative Negative - Positive [facility] pH, UA 6 5 - 9 [facility] Protein, UA Positive Negative - 2000(20) ++++ mg/dL [facility] Spec Grav, UA 1.03 1 - 1.03 [facility] Urobilinogen, UA 1.0 0.2 - 12 mg/dL [facility] US OB CERVICAL LENGTHon 02-0 The [facility] [address] [place] [address] Ultrasound Report Signed Patient: AILYN BARON MR#: [id number] : 1995 Acct:[id number] Age/Sex: 29 / F ADM Date: 12/26/24 Loc: US Attending Dr: Delvis Meraz D.O. Ordering Physician: Delvis Meraz D.O. Date of Service: 12/26/24 Procedure(s): US OB cervical length Accession Number(s): [id number] cc: Delvis Meraz D.O.; Mike Wagner M.D. The [place] [id number] Patient Name: AILYN BARON MRN: [facility]:[id number] date: 1995 Sex: F Assigned Patient Location: US Current Patient Location: ED.MAIN Accession/Order Number: [id number] Exam Date: 12/26/2024 15:30 Report Date: 12/27/2024 09:21 At the request of: DELVIS MERAZ Procedure: US OB cervical length EXAMINATION: US OB cervical length HISTORY: Screening For Cervical Length COMPARISON: Ultrasound OB incomplete anatomy 12/15/2024, ultrasound OB cervical length 11/18/2024 TECHNIQUE: Transabdominal and transvaginal sonographic examination for cervical length. FINDINGS: CERVIX LENGTH: 4.7 cm; closed. Lower margin of posterior placenta is 4.3 cm from internal os. POSITION: Breech HEART RATE: 157 bpm OTHER: Prominent renal pelvis is again seen; 0.6 cm on right, 0.5 cm on left. Fluid-filled stomach. Age by EDC: 25 weeks 4 days ELIE by EDC: 04/06/2025 US/US OB cervical length IMPRESSION: 1. Single live intrauterine . 2. Closed cervix 4.7 cm in length. 3. Prominent fluid-filled stomach and slightly prominent renal pelvis bilaterally. Electronically authenticated by: MORE CONTRERAS Date: 12/27/2024 09:21 Dictated By: More Contreras M.D. Signed By: 12/27/24922 DD/ 0 TD/TT: Remelt Worker: [facility] Radiology, Tabbyograchel arredondo MD - 12/27/[address] [address] Ultrasound Report Signed Patient: AILYN BARON MR#: [id number] : 1995 Acct:[id number] Age/Sex: 29 / F ADM Date: 12/26/24 Loc: US Attending Dr: Delvis Meraz D.O. Ordering Physician: Delvis Meraz D.O. Date of Service: 12/26/24 Procedure(s): US OB cervical length Accession Number(s): [id number] cc: Delvis Meraz D.O.; Mike Wagner M.D. [place] [id number] Patient Name: AILYN BARON MRN: [facility]:[id number] date: 1995 Sex: F Assigned Patient Location: US Current Patient Location: ED.MAIN Accession/Order Number: [id number] Exam Date: 12/26/2024 15:30 Report Date: 12/27/2024 09:21 At the request of: DELVIS MERAZ Procedure: US OB cervical length EXAMINATION: US OB cervical length HISTORY: Screening For Cervical Length COMPARISON: Ultrasound OB incomplete anatomy 12/15/2024, ultrasound OB cervical length 11/18/2024 TECHNIQUE: Transabdominal and transvaginal sonographic examination for cervical length. FINDINGS: CERVIX LENGTH: 4.7 cm; closed. Lower margin of posterior placenta is 4.3 cm from internal os. POSITION: Breech HEART RATE: 157 bpm OTHER: Prominent renal pelvis is again seen; 0.6 cm on right, 0.5 cm on left. Fluid-filled stomach. Age by EDC: 25 weeks 4 days ELIE by EDC: 04/06/2025 US/US OB cervical length IMPRESSION: 1. Single live intrauterine . 2. Closed cervix 4.7 cm in length. 3. Prominent fluid-filled stomach and slightly prominent renal pelvis bilaterally. Electronically authenticated by: MORE CONTRERAS Date: 12/27/2024 09:21 Dictated By: More Contreras M.D. Signed By: 12/27/24922 DD/ 0 TD/TT: Remelt Worker: [facility] Radiology Study observation (narrative) [facility] OB CERVICAL LENGTHOrdered By: Radiologist Radiology on 12-27-2024 [facility] Work Phone: Urinalysis macro (dipstick) panel (U)on 11-28-2024 Bilirubin, UA Negative Negative - 4(70) +++ mg/dL [facility] Blood, UA Positive Negative - 50 Naveed/mcL [facility] Comment on above: trace Clarity, UA Clear [facility] Color, UA Yellow [facility] Glucose, UA Negative Negative - 1999(110) ++++ mg/dL [facility] Interpretation and review of laboratory results Abnormal [facility] Ketones, UA Negative Negative - 160(16) ++++ mg/dL [facility] Leukocytes, UA Negative Negative - 500+++ José Luis/mcL [facility] Nitrite, UA Negative Negative - Positive [facility] pH, UA 6.5 5 - 9 [facility] Protein, UA Negative Negative - 1999(20) ++++ mg/dL [facility] Spec Grav, UA 1.025 1 - 1.03 [facility] Urobilinogen, UA 0.2 0.2 - 12 mg/dL [facility] No Panel Informationon 10-26 STAPHYLOCOCCUS EPIDERMIDIS, HAEMOLYTICUS, LUGDUNENSIS, SAPROPHYTICUS (URINA 0 [facility] STAPHYLOCOCCUS EPIDERMIDIS, HAEMOLYTICUS, LUGDUNENSIS, SAPROPHYTICUS (URINA Not detected [facility] URINARY TRACT INFECTION (HTR X)on 10-26-2024 ACINETOBACTER BAUMANII 0 NO [facility] ACINETOBACTER BAUMANII Not detected [facility] STEVEN ALBICANS, PARAPSILOSIS, TROPICALIS 0 [facility] STEVEN ALBICANS, PARAPSILOSIS, TROPICALIS Not detected [facility] STEVEN GLABRATA 0 [facility] STEVEN GLABRATA Not detected [facility] STEVEN KRUSEI 0 [facility] STEVEN KRUSEI Not detected [facility] CITROBACTER FREUNDII 0 [facility] CITROBACTER FREUNDII Not detected NO [facility] ENTEROBACTER AEROGENES, CLOACAE 0 [facility] ENTEROBACTER AEROGENES, CLOACAE Not detected [facility] ENTEROCOCCUS FAECALIS, FAECIUM 0 [facility] ENTEROCOCCUS FAECALIS, FAECIUM Not detected [facility] ESCHERICHIA COLI 0 [facility] ESCHERICHIA COLI Not detected [facility] KLEBSIELLA PNEUMONIAE, OXYTOCA 0 [facility] KLEBSIELLA PNEUMONIAE, OXYTOCA Not detected [facility] MORGANELLA MORGANII 0 [facility] MORGANELLA MORGANII Not detected [facility] PROTEUS MIRABILIS, VULGARIS 0 [facility] PROTEUS MIRABILIS, VULGARIS Not detected [facility] PSEUDOMONAS AERUGINOSA 0 NO [facility] PSEUDOMONAS AERUGINOSA Not detected [facility] SERRATIA MARCESCENS 0 [facility] SERRATIA MARCESCENS Not detected [facility] STAPHYLOCOCCUS AUREUS 0 [facility] STAPHYLOCOCCUS AUREUS Not detected [facility] STREPTOCOCCUS AGALACTIAE (GROUP B STREP) 0 [facility] STREPTOCOCCUS AGALACTIAE (GROUP B STREP) Not detected [facility] STREPTOCOCCUS PYOGENES (GROUP A STREP) 0 [facility] STREPTOCOCCUS PYOGENES (GROUP A STREP) Not detected [facility] Urinalysis macro (dipstick) panel (U)on 10-24-2024 Bilirubin, UA Negative Negative - 4(70) +++ mg/dL [facility] Blood, UA Positive Negative - 50 Naveed/mcL [facility] Clarity, UA Clear [facility] Color, UA Yellow [facility] Glucose, UA Negative Negative - 1999(110) ++++ mg/dL [facility] Interpretation and review of laboratory results Normal [facility] Ketones, UA Negative Negative - 160(16) ++++ mg/dL [facility] Leukocytes, UA Negative Negative - 500+++ José Luis/mcL [facility] Nitrite, UA Negative Negative - Positive [facility] pH, UA 5.5 5 - 9 [facility] Protein, UA Negative Negative - 1999(20) ++++ mg/dL [facility] Spec Grav, UA 1.02 1 - 1.03 [facility] Urobilinogen, UA 1.0 0.2 - 12 mg/dL [facility] Urinalysis macro (dipstick) panel (U)on 09-26-2024 Bilirubin, UA Negative Negative - 4(70) +++ mg/dL [facility] Blood, UA Negative Negative - 50 Naveed/mcL [facility] Clarity, UA Clear [facility] Color, UA Yellow [facility] Glucose, UA Negative Negative - 1999(110) ++++ mg/dL [facility] Interpretation and review of laboratory results Normal [facility] Ketones, UA Negative Negative - 160(16) ++++ mg/dL [facility] Leukocytes, UA Negative Negative - 500+++ José Luis/mcL [facility] Nitrite, UA Negative Negative - Positive [facility] pH, UA 5.5 5 - 9 [facility] Protein, UA Negative Negative - 1999(20) ++++ mg/dL [facility] Spec Grav, UA 1.02 1 - 1.03 [facility] Urobilinogen, UA 0.2 0.2 - 12 mg/dL [facility] MLR HEMOGLOBIN A1Con 024 Glucose [Mass/Vol] 91 mg/dL [facility] HbA1c (Bld) [Mass fraction] 4.8 % 4.5 - 6.2 % [facility] Comment on above: ADA RECOMMENDED LIMI T 4.0 - 6.0 ADA THERAPEUTIC TARGET < 7.0 ACTION SUGGESTED > 7.0 [facility] ( test) Ql (U)o n 08-26-2024 Interpretation and review of laboratory results Abnormal [facility] Preg Test, Ur Positive [facility] Urinalysis macro (dipstick) panel (U)on 08-26-2024 Bilirubin, UA Negative Negative - 4(70) +++ mg/dL [facility] Blood, UA Negative Negative - 50 Naveed/mcL [facility] Clarity, UA Clear [facility] Color, UA Yellow [facility] Glucose, UA Negative Negative - 2000(110) ++++ mg/dL [facility] Interpretation and review of laboratory results Normal [facility] Ketones, UA Negative Negative - 160(16) ++++ mg/dL [facility] Leukocytes, UA Negative Negative - 500+++ José Luis/mcL [facility] Nitrite, UA Negative Negative - Positive [facility] pH, UA 7.0 5 - 9 [facility] Protein, UA Negative Negative - 2000(20) ++++ mg/dL [facility] Spec Grav, UA 1.025 1 - 1.03 [facility] Urobilinogen, UA 0.2 0.2 - 12 mg/dL [facility] TBH PREG QUANT HCGon 024 HCG QUANTITATIVE 1850 mIU/mL [facility] Comment on above: 5-50 0.2-1 WEEK 50-500 1-2 WEEKS 100-5,000 2-3 WEEKS 500-10,000 3-4 WEEKS 1,000-50,000 4-5 WEEKS 10,000-100,000 5-6 WEEKS 15,000-200,000 6-8 WEEKS 10,000-100,000 2-3 [facility] [place] PREG QUANT HCGon 024 HCG QUANTITATIVE 824 mIU/mL [facility] Comment on above: 5-50 0.2-1 WEEK 50-500 1-2 WEEKS 100-5,000 2-3 WEEKS 500-10,000 3-4 WEEKS 1,000-50,000 4-5 WEEKS 10,000-100,000 5-6 WEEKS 15,000-200,000 6-8 WEEKS 10,000-100,000 2-3 [facility] Alanine aminotransferase [En zymatic activity/volume] in Serum or PlasmaOrdered By: Amanda Rosario on 05-20-2023 ALT [Catalytic activity/Vol] 9 U/L 7-52 [facility] Albumin [Mass/volume] in Ser um or Plasma by Bromocresol green (BCG) dye binding methoOrdered By: Amanda Rosario on 05-20-2023 Albumin BCG dye [Mass/Vol] 3.8 g/dL 3.5-5.7 [facility] Alkaline phosphatase [Enzyma tic activity/volume] in Serum or PlasmaOrdered By: Amanda Rosario on 05-20-2023 ALP [Catalytic activity/Vol] 52 U/L 34-104 [facility] Aspartate aminotransferase [ Enzymatic activity/volume] in Serum or PlasmaOrdered By: Amanda Rosario on 05-20-2023 AST [Catalytic activity/Vol] 14 U/L 13-39 [facility] Basophils Auto (Bld) [#/Vol] Ordered By: Amanda Rosario on 05-20-2023 Basophils (Bld) [#/Vol] 0.0 10*3/uL 0.0-0.2 [facility] Basophils/100 WBC Auto (Bld) Ordered By: Amanda Rosario on 05-20-2023 Basophils/100 WBC (Bld) 0.4 % . F [facility] Bilirubin.total [Mass/volume ] in Serum or PlasmaOrdered By: Amanda Rosario on 05-20-2023 Bilirubin [Mass/Vol] 0.5 mg/dL 0.3-1.0 [facility] Calcium [Mass/volume] in Ser um or PlasmaOrdered By: Amanda Rosario on 05-20-2023 Calcium [Mass/Vol] 8.5 mg/dL 8.6-10.3 [facility] Carbon dioxide, total [Moles /volume] in Serum or PlasmaOrdered By: Amanda Rosario on 05-20-2023 CO2 [Moles/Vol] 26.1 mmol/L 21.0-31.0 [facility] Chloride [Moles/volume] in [place] or PlasmaOrdered By: Amanda Rosario on 05-20-2023 Chloride [Moles/Vol] 104 mmol/L 98-107 [facility] Creatinine [Mass/volume] in Serum or PlasmaOrdered By: Amanda Rosario on 05-20-2023 Creatinine [Mass/Vol] 0.56 mg/dL 0.60-1.20 [facility] Eosinophils Auto (Bld) [#/Vo l]Ordered By: Amanda Rosario on 05-20-2023 Eosinophils (Bld) [#/Vol] 0.1 10*3/uL 0.0-0.45 [facility] Eosinophils/100 WBC Auto (Bl d)Ordered By: Amanda Rosario on 05-20-2023 Eosinophils/100 WBC (Bld) 0.6 % . [facility] Erythrocyte distribution wid th Auto (RBC) [Ratio]Ordered By: Amanda Rosario on 05-20-2023 Erythrocyte distribution width (RBC) [Ratio] 13.1 % 11.9-15.3 [facility] Globulin Calc (S) [Mass/Vol] Ordered By: Amanda Rosario on 05-20-2023 Globulin (S) [Mass/Vol] 2.3 g/dL [facility] Glucose [Mass/volume] in Ser um or PlasmaOrdered By: Amanda Rosario on 05-20-2023 Glucose [Mass/Vol] 72 mg/dL 70-100 [facility] Comment on above: ADA recommended refe rence rangeRandom Glucose Reference Range is dependent on time and content of last meal. Glucose of more than 200 mg/dL in a nonstressed, ambulatory subject supports the diagnosis of Diabetes Mellitus. Hematocrit Auto (Bld) [Volum e fraction]Ordered By: Amanda Rosario on 05-20-2023 Hematocrit (Bld) [Volume fraction] 34.7 % 34.0-46.4 [facility] Hemoglobin [Mass/volume] in BloodOrdered By: Amanda Rosario on 05-20-2023 Hemoglobin (Bld) [Mass/Vol] 12.0 g/dL 11.8-15.4 [facility] Leukocytes [#/volume] correc yanira for nucleated erythrocytes in Blood by Automated counOrdered By: Amanda Rosario on 05-20-2023 WBC corrected for nucl RBC Auto (Bld) [#/Vol] 10.3 10*3/uL 3.8-11.6 [facility] Lymphocytes Auto (Bld) [#/Vo l]Ordered By: Amanda Rosario on 05-20-2023 Lymphocytes (Bld) [#/Vol] 1.3 10*3/uL 1.00-4.8 [facility] Lymphocytes/100 WBC Auto (Bl d)Ordered By: Amanda Rosario on 05-20-2023 Lymphocytes/100 WBC (Bld) 12.8 % . [facility] MCH Auto (RBC) [Entitic mass ]Ordered By: Amanda Rosario on 05-20-2023 MCH (RBC) [Entitic mass] 31.5 pg 24.7-34.3 [facility] MCHC Auto (RBC) [Mass/Vol]Or dered By: Amanda Rosario on 05-20-2023 MCHC (RBC) [Mass/Vol] 34.6 g/dL 32.0-35.0 [facility] MCV Auto (RBC) [Entitic vol] Ordered By: Amanda Rosario on 05-20-2023 MCV (RBC) [Entitic vol] 91.1 fL 80-100 [facility] Monocytes Auto (Bld) [#/Vol] Ordered By: Amanda Rosario on 05-20-2023 Monocytes (Bld) [#/Vol] 0.7 10*3/uL 0.0-0.8 [facility] Monocytes/100 WBC Auto (Bld) Ordered By: Amanda Rosario on 05-20-2023 Monocytes/100 WBC (Bld) 6.4 % . [facility] Neutrophils Auto (Bld) [#/Vo l]Ordered By: Amanda Rosario on 05-20-2023 Neutrophils (Bld) [#/Vol] 8.2 10*3/uL 1.8-7.7 [facility] Neutrophils/100 WBC Auto (Bl d)Ordered By: Amanda Rosario on 05-20-2023 Neutrophils/100 WBC (Bld) 79.8 % . [facility] No Panel InformationOrdered By: Amanda Rosario on 05-20-2023 Adrenocorticotropic Hormone 10.8 pg/mL 7.2-63.3 [facility] Comment on above: ACTH reference inter cruz for samples collected between 7 and10 AM.Performed at: [facility] [id number] Director: Sai Smalls PhD, Phone: [phone] Estimated GFR (CKD-EPI) > 60.0 mL/Min [facility] Creatinine Clearance (Chem 154.92 [facility] Nucleated erythrocytes [Pres ence] in Blood by Automated countOrdered By: Amanda Rosario on 05-20-2023 Nucleated RBC Auto Ql (Bld) 0.2 /100{WBC} 0-0.5 [facility] Platelet mean volume Auto (B ld) [Entitic vol]Ordered By: Amanda Rosario on 05-20-2023 Platelet mean volume (Bld) [Entitic vol] 7.4 fL 6.3-10.7 [facility] Platelets Auto (Bld) [#/Vol] Ordered By: Amanda Rosario on 05-20-2023 Platelets (Bld) [#/Vol] 256 10*3/uL 150-450 [facility] Potassium [Moles/volume] in Serum or PlasmaOrdered By: Amanda Rosario on 05-20-2023 Potassium [Moles/Vol] 4.2 mmol/L 3.5-5.1 [facility] Protein [Mass/volume] in Ser um or PlasmaOrdered By: Amanda Rosario on 05-20-2023 Protein [Mass/Vol] 6.1 g/dL 6.4-8.9 [facility] RBC Auto (Bld) [#/Vol]Ordere d By: Amanda Rosario on 05-20-2023 RBC (Bld) [#/Vol] 3.81 10*6/uL 3.60-5.00 [facility] Serum or plasma albumin/glob ulin mass ratioOrdered By: Amanda Rosario on 05-20-2023 Albumin/Globulin [Mass ratio] 1.7 {ratio} [facility] Serum or plasma anion gap de terminationOrdered By: Amanda Rosario on 05-20-2023 Anion gap [Moles/Vol] 10.1 mmol/L 6.0-15.0 [facility] Sodium [Moles/volume] in Ser um or PlasmaOrdered By: Amanda Rosario on 05-20-2023 Sodium [Moles/Vol] 136 mmol/L 136-145 [facility] Thyrotropin [Units/volume] i n Serum or PlasmaOrdered By: Amanda Rosario on 05-20-2023 TSH Qn 1.31 m[IU]/L 0.45-5.33 [facility] Thyroxine (T4) free [Mass/vo lume] in Serum or PlasmaOrdered By: Amanda Rosario on 05-20-2023 Free T4 [Mass/Vol] 0.86 ng/dL 0.61-1.12 [facility] Triiodothyronine (T3) Free [ Mass/volume] in Serum or PlasmaOrdered By: Amanda Rosario on 05-20-2023 Free T3 [Mass/Vol] 2.91 pg/mL 2.50-3.90 [facility] Urea nitrogen [Mass/volume] in Serum or PlasmaOrdered By: Amanda Rosario on 05-20-2023 Urea nitrogen [Mass/Vol] 10 mg/dL 7-25 [facility] WBC Auto (Bld) [#/Vol]Ordere d By: Amanda Rosario on 05-20-2023 WBC (Bld) [#/Vol] 10.3 10*3/uL 3.8-11.6 [facility] HEP B SURFACE ANTIGEN SCREEN on 04-08-2023 HBsAg Screen Negative Normal Negative [facility] Comment on above: Performed By: #### T SH #### [facility] [address] [address] [address] Beth Pineda HEPATITIS C VIRUS AB W/ REFL EX QUANTon 04-08-2023 HCV AB Non-Reactive Normal Non Reactive [facility] Comment on above: Performed By: #### H CVPCRR #### [facility] [address] [address] [address] Beth Pineda HIV 1 AND 2 WITH REFLEXon HIV Screen 4th Generation wRfx Non-Reactive Normal Non Reactive [facility] Comment on above: Result Comment: HIV Negative HIV-1/HIV-2 antibodies and HIV-1 p24 antigen were NOT detected. There is no laboratory evidence of HIV infection. Performed By: #### H IV12 #### [facility] [address] [place] [address] Dr. Beth Pineda RPR QUANTon 04-08-2023 Rapid Plasma Reagin, Quant Non-Reactive Normal NonRea<1:1 [facility] Comment on above: Result Comment: Plea se Note: This test does not meet current guidelines for screening and diagnosis of syphilis. This test is intended for following treatment response in patients being treated for syphilis infection. To screen for syphilis infection, a reflex cascade that includes both RPR and a treponema-specific assay should be utilized, such as Treponema pallidum (Syphilis) Screening Taliaferro (063742) or Rapid Plasma Reagin (RPR) Test With Reflex to Quantitative RPR and Confirmatory Treponema pallidum Antibodies (509675). Performed By: #### R PRQ #### [facility] [address] [place] [address] Dr. Beth Pineda RUBELLA AB IGGon 04-08-2023 Rubella Antibodies, IgG 1.35 index Normal Immu ne >0.99 [facility] Comment on above: Result Comment: Non- immune <0.90 Equivocal 0.90 - 0.99 Immune >0.99 Performed By: #### R UBIGG #### [facility] [address] [place] [address] Dr. Beth Pineda BOX TEST SENT OUTon 04-07-20 SENT TO REF LAB 04/07/23 Normal [facility] Comment on above: Performed By: #### B OX #### [facility] [address] [place] [address] Dr. Beth Pineda CBC AUTO DIFFon 04-07-2023 BASO # 0.1 103/ul Normal 0.0-0.1 [facility] Comment on above: Performed By: #### C BC #### [facility] [address] [place] [address] Dr. Beth Pineda Basophils/100 WBC (Bld) 0.7 % Normal 0.2-2.0 [facility] Comment on above: Performed By: #### C BC #### [facility] [address] [place] [address] Dr. Beth Pineda EO # 0.1 103/ul Normal 0.0-0.7 [facility] Comment on above: Performed By: #### C BC #### [facility] [address] [place] [address] Dr. Beth Pineda Eosinophils/100 WBC (Bld) 1.1 % Normal 0.9-7.0 [facility] Comment on above: Performed By: #### C BC #### [facility] [address] [place] [address] Dr. Beth Pineda Erythrocyte distribution width (RBC) [Ratio] 12.5 % Normal 11.0-15.0 [facility] Comment on above: Performed By: #### C BC #### [facility] [address] [place] [address] Dr. Beth Pineda Hematocrit (Bld) [Volume fraction] 37.8 % Normal 36.0-48.0 [facility] Comment on above: Performed By: #### C BC #### [facility] [address] [place] [address] Dr. Beth Pineda Hemoglobin (Bld) [Mass/Vol] 13.1 g/dL Normal 12.0-16.0 [facility] Comment on above: Performed By: #### C BC #### [facility] [address] [place] [address] Dr. Beth Pineda IG # 0.02 10e3/ul Normal 0.00-0.03 [facility] Comment on above: Performed By: #### C BC #### [facility] [address] [place] [address] Dr. Beth Pineda IG % 0.3 % Normal 0.0-0.5 [facility] Comment on above: Performed By: #### C BC #### [facility] [address] [place] [address] Dr. Beth Pineda LYMPH # 1.5 103/ul Normal 1.2-3.8 [facility] Comment on above: Performed By: #### C BC #### [facility] [address] [place] [address] Dr. Beth Pineda Lymphocytes/100 WBC (Bld) 19.9 % Critically low 20.5-60.0 [facility] Comment on above: Performed By: #### C BC #### [facility] [address] [place] [address] Dr. Beth Pineda MANUAL DIFF REQ NO Normal [facility] Comment on above: Performed By: #### C BC #### [facility] [address] [place] [address] Dr. Bteh Pineda MCH (RBC) [Entitic mass] 31.3 pg Normal 26.7-34.0 [facility] Comment on above: Performed By: #### C BC #### [facility] [address] [place] [address] Dr. Beth Pineda MCHC (RBC) [Mass/Vol] 34.7 g/dL Normal 29.9-35.2 [facility] Comment on above: Performed By: #### C BC #### [facility] [address] [place] [address] Dr. Beth Pineda MCV (RBC) [Entitic vol] 90.2 fL Normal 81.0-99.0 [facility] Comment on above: Performed By: #### C BC #### [facility] [address] [place] [address] Dr. Beth Pineda MONO # 0.5 103/ul Normal 0.3-0.8 [facility] Comment on above: Performed By: #### C BC #### [facility] [address] [place] [address] Dr. Beth Pineda Monocytes/100 WBC (Bld) 6.1 % Normal 1.7-12.0 [facility] Comment on above: Performed By: #### C BC #### [facility] [address] [place] [address] Dr. Beth Pineda NEUT # 5.4 103/ul Normal 1.4-6.5 [facility] Comment on above: Performed By: #### C BC #### [facility] [address] [address] [address] Beth Pineda Neutrophils/100 WBC (Bld) 71.9 % Normal 43.0-75.0 [facility] Comment on above: Performed By: #### C BC #### [facility] [address] [address] [address] Beth Pineda Platelet mean volume (Bld) [Entitic vol] 8.9 fL Critically low 9.5-13.5 [facility] Comment on above: Performed By: #### C BC #### [facility] [address] [address] [address] Beth Pineda PLT 272 103/ul Normal 150-450 [facility] Comment on above: Performed By: #### C BC #### [facility] [address] [address] [address] Beth Pineda RBC 4.19 106/ul Critically low 4.20-5.40 [facility] Comment on above: Performed By: #### C BC #### [facility] [address] [address] [address] Beth Pineda WBC 7.5 103/ul Normal 4.0-11.0 [facility] Comment on above: Performed By: #### C BC #### [facility] [address] [place] [address] Dr. Beth Pineda CULTURE URINEon 04-07-2023 CULTURE URINE Culture Observations : NO GROWTH. Normal [facility] Comment on above: Performed By: #### T SH #### [facility] [address] [address] [address] Beth Pineda GLYCOHEMOGLOBIN A1Con 2022 ADA RECOMMENDATION SEE BELOW Normal [facility] Comment on above: Result Comment: ADA RECOMMENDED LIMIT 4.0 - 6.0 ADA THERAPEUTIC TARGET < 7.0 ACTION SUGGESTED > 7.0 Performed By: #### A 1C #### [facility] [address] [place] [address] Dr. Beth Pineda Glucose [Mass/Vol] 82 mg/dL Normal [facility] Comment on above: Performed By: #### A 1C #### [facility] [address] [address] [address] Beth Pineda HbA1c (Bld) [Mass fraction] 4.5 % Normal 4.5-6.2 [facility] Comment on above: Performed By: #### A 1C #### [facility] [address] [address] [address] Beth Pineda TSHon 04-07-2023 TSH 2.191 uIU/mL Normal 0.358-3.740 [facility] Comment on above: Performed By: #### T SH #### [facility] [address] [place] [address] Dr. Beth Pineda TYPE AND SCREENon 04-07-2023 TYPE AND SCREEN Negative Normal [facility] Comment on above: Performed By: #### T SH #### [facility] [address] [place] [address] Dr. Beth Pineda US PREG TVon 03-13-2023 [...] live intrauterine . Electronically authenticated by: MORE CONTRERAS Date: 2023-03-13 09:[address] [facility] PREG QUANT HCGon 02-27-2023 HCG QUANT 16608 mIU/mL Normal [facility] Comment on above: Performed By: #### A 1C #### [facility] [address] [place] [address] Dr. Beth Pineda HCG RANGE SEE BELOW Normal [facility] Comment on above: Result Comment: 5-50 0.2-1 WEEK 50-500 1-2 WEEKS 100-5,000 2-3 WEEKS 500-10,000 3-4 WEEKS 1,000-50,000 4-5 WEEKS 10,000-100,000 5-6 WEEKS 15,000-200,000 6-8 WEEKS 10,000-100,000 2-3 MONTHS Performed By: #### A 1C #### [facility] [address] [place] [address] Dr. Beth Pineda PREG QUANT HCGon 02-11-2023 HCG QUANT 57 mIU/mL Normal [facility] Comment on above: Performed By: #### A 1C #### [facility] [address] [place] [address] Dr. Beth Pineda HCG RANGE SEE BELOW [facility] Comment on above: Result Comment: 5-50 0.2-1 WEEK 50-500 1-2 WEEKS 100-5,000 2-3 WEEKS 500-10,000 3-4 WEEKS 1,000-50,000 4-5 WEEKS 10,000-100,000 5-6 WEEKS 15,000-200,000 6-8 WEEKS 10,000-100,000 2-3 MONTHS Performed By: #### A 1C #### [facility] [address] [place] [address] Dr. Beth Pineda PREG QUANT HCGon 02-09-2023 HCG QUANT 14 mIU/mL Normal [facility] Comment on above: Performed By: #### P REGQNT #### [facility] [address] [place] [address] Dr. Beth Pineda HCG RANGE SEE BELOW [facility] Comment on above: Result Comment: 5-50 0.2-1 WEEK 50-500 1-2 WEEKS 100-5,000 2-3 WEEKS 500-10,000 3-4 WEEKS 1,000-50,000 4-5 WEEKS 10,000-100,000 5-6 WEEKS 15,000-200,000 6-8 WEEKS 10,000-100,000 2-3 MONTHS Performed By: #### P REGQNT #### [facility] [address] [place] [address] Dr. Beth Pineda ANTI-MULLERIAN HORMONEon Anti-Mullerian Hormone (AMH) 12.5 ng/mL [facility] Comment on above: Result Comment: For assays employing antibodies, the possibility exists for interference by heterophile antibodies in the samples.1 1.Tanja Rendon Interferences in Immunoassays - still a threat. Clin. Chem. 2000; 46: 9079-4333. This test was developed and its performance characteristics determined by [employer]. It has not been cleared or approved by the Food and Drug Administration. Reference Range: Females 20 - 25y: 1.23 - 11.51 Median 4.70 AMH concentrations of >= 1.06 ng/mL is correlated with a better response to ovarian stimulation, produced more retrievable oocytes and higher odds of live according to Erikaer et al. Fertility and Sterility. 2010: 94:8731-9330. The current AMH test method correlates with [...] tumor. Performed By: #### T SH #### [facility] [address] [place] [address] Dr. Beth Pineda PAP ACOG PANEL 2: 21 to 31on 01-20-2023 . . [facility] Comment on above: Performed By: #### T SH #### [facility] [address] [address] [address] Beth Pineda Age Gdln ACOG Testing 23- [facility] Comment on above: Performed By: #### T SH #### [facility] [address] [address] [address] Beth Pineda DIAGNOSIS: Comment [facility] Comment on above: Result Comment: NEGA TIVE FOR INTRAEPITHELIAL LESION OR MALIGNANCY. Performed By: #### T SH #### [facility] [address] [place] [address] Dr. Beth Pineda Methodology: Comment [facility] Comment on above: Result Comment: This liquid based ThinPrep(R) pap test was screened with the use of an image guided system. Performed By: #### T SH #### [facility] [address] [place] [address] Dr. Beth Pineda Note: Comment [facility] Comment on above: Result Comment: The Pap smear is a screening test designed to aid in the detection of premalignant and malignant conditions of the uterine cervix. It is not a diagnostic procedure and should not be used as the sole means of detecting cervical cancer. Both false-positive and false-negative reports do occur. . Performed By: #### T SH #### [facility] [address] [place] [address] Dr. Beth Pineda Performed by: Comment Normal [facility] Comment on above: Result Comment: Pato Gonzalez, Dog Track Kennel Manager (ASCP) Performed By: #### T SH #### [facility] [address] [place] [address] Dr. Beth Pineda Reflex Criteria: Comment [facility] Comment on above: Result Comment: The HPV DNA reflex criteria were not met with this specimen result therefore, no HPV testing was performed. . Performed By: #### T SH #### [facility] [address] [place] [address] Dr. Beth Pineda Specimen adequacy: Comment Normal [facility] Comment on above: Result Comment: Sati sfactory for evaluation. Endocervical and/or squamous metaplastic cells (endocervical component) are present. Performed By: #### T SH #### [facility] [address] [place] [address] Dr. Beth Pineda Albumin [Mass/volume] in Ser um or PlasmaOrdered By: Amanda Rosario on 01-09-2023 Albumin [Mass/Vol] 4.3 g/dL 3.2-5.5 [facility] Alkaline phosphatase [Enzyma tic activity/volume] in Serum or PlasmaOrdered By: Amanda Rosario on 01-09-2023 ALP [Catalytic activity/Vol] 54 U/L 32-92 [facility] Aspartate aminotransferase [ Enzymatic activity/volume] in Serum or PlasmaOrdered By: Amanda Rosario on 01-09-2023 AST [Catalytic activity/Vol] 21 U/L 10-42 [facility] Basophils Auto (Bld) [#/Vol] Ordered By: Amanda Rosario on 01-09-2023 Basophils (Bld) [#/Vol] 0.0 10*3/uL 0.0-0.2 [facility] Basophils/100 WBC Auto (Bld) Ordered By: Amanda Rosario on 01-09-2023 Basophils/100 WBC (Bld) 0.7 % . F [facility] Bilirubin.total [Mass/volume ] in Serum or PlasmaOrdered By: Amanda Rosario on 01-09-2023 Bilirubin [Mass/Vol] 0.7 mg/dL 0.3-1.2 [facility] CT biopsyOrdered By: Amanda Nino se on 01-09-2023 Transferrin [Mass/Vol] 265 mg/dL 180-380 [facility] Calcium [Mass/volume] in Ser um or PlasmaOrdered By: Amanda Rosario on 01-09-2023 Calcium [Mass/Vol] 9.6 mg/dL 8.2-10.2 [facility] Carbon dioxide, total [Moles /volume] in Serum or PlasmaOrdered By: Amanda Rosario on 01-09-2023 CO2 [Moles/Vol] 27.2 mmol/L 22.0-30.0 [facility] Chloride [Moles/volume] in S [place] or PlasmaOrdered By: Amanda Rosario on 01-09-2023 Chloride [Moles/Vol] 104 mmol/L 95-114 [facility] Creatinine and Glomerular fi ltration rate.predicted panel (S/P/Bld)Ordered By: Amanda Rosario on 01-09-2023 Creatinine [Mass/Vol] 0.72 mg/dL 0.44-1.03 [facility] Eosinophils Auto (Bld) [#/Vo l]Ordered By: Amanda Rosario on 01-09-2023 Eosinophils (Bld) [#/Vol] 0.1 10*3/uL 0.0-0.45 [facility] Eosinophils/100 WBC Auto (Bl d)Ordered By: Amanda Rosario on 01-09-2023 Eosinophils/100 WBC (Bld) 1.3 % . [facility] Erythrocyte distribution wid th Auto (RBC) [Ratio]Ordered By: Amanda Rosario on 01-09-2023 Erythrocyte distribution width (RBC) [Ratio] 13.1 % 11.9-15.3 [facility] Estimated glomerular filtrat ion rate (GFR) non- AmericanOrdered By: Amanda Rosario on 01-09-2023 GFR/1.73 sq M.predicted among non-blacks MDRD (S/P/Bld) [Vol rate/Area] > 60 mL/Min [facility] Ferritin [Mass/volume] in Se rum or PlasmaOrdered By: Amanda Rosario on 01-09-2023 Ferritin [Mass/Vol] 13.4 ng/mL 11-306.8 [facility] Globulin Calc (S) [Mass/Vol] Ordered By: Amanda Rosario on 01-09-2023 Globulin (S) [Mass/Vol] 2.3 g/dL F [facility] Glucose [Mass/volume] in Ser um or PlasmaOrdered By: Amanda Rosario on 01-09-2023 Glucose [Mass/Vol] 80 mg/dL 70-100 [facility] Comment on above: ADA recommended refe rence rangeRandom Glucose Reference Range is dependent on time and content of last meal. Glucose of more than 200 mg/dL in a nonstressed, ambulatory subject supports the diagnosis of Diabetes Mellitus. Hematocrit Auto (Bld) [Volum e fraction]Ordered By: Amanda Rosario on 01-09-2023 Hematocrit (Bld) [Volume fraction] 39.5 % 34.0-46.4 [facility] Hemoglobin [Mass/volume] in BloodOrdered By: Amanda Rosario on 01-09-2023 Hemoglobin (Bld) [Mass/Vol] 13.1 g/dL 11.8-15.4 [facility] Iron [Mass/volume] in Serum or PlasmaOrdered By: Amanda Rosario on 01-09-2023 Iron [Mass/Vol] 75 ug/dL 40-150 [facility] Iron binding capacity [Mass/ volume] in Serum or PlasmaOrdered By: Amanda Rosario on 01-09-2023 Iron binding capacity [Mass/Vol] 371 ug/dL 255-450 [facility] Iron saturation [Mass Fracti on] in Serum or PlasmaOrdered By: Amanda Rosario on 01-09-2023 Iron saturation [Mass fraction] 20.2 % 20-50 [facility] Lactate dehydrogenase measur ement (enzymatic activity/volume)Ordered By: Ale Kira on 01-09-2023 LDH (Unsp spec) [Catalytic activity/Vol] 145 U/L 45-190 [facility] Leukocytes [#/volume] correc yanira for nucleated erythrocytes in Blood by Automated counOrdered By: Amanda Rosario on 01-09-2023 WBC corrected for nucl RBC Auto (Bld) [#/Vol] 4.8 10*3/uL 3.8-11.6 [facility] Lymphocytes Auto (Bld) [#/Vo l]Ordered By: Amanda Rosario on 01-09-2023 Lymphocytes (Bld) [#/Vol] 1.0 10*3/uL 1.00-4.8 [facility] Lymphocytes/100 WBC Auto (Bl d)Ordered By: Amanda Rosario on 01-09-2023 Lymphocytes/100 WBC (Bld) 20.2 % . [facility] MCH Auto (RBC) [Entitic mass ]Ordered By: Amanda Rosario on 01-09-2023 MCH (RBC) [Entitic mass] 30.0 pg 24.7-34.3 [facility] MCHC Auto (RBC) [Mass/Vol]Or dered By: Amanda Rosario on 01-09-2023 MCHC (RBC) [Mass/Vol] 33.2 g/dL 32.0-35.0 [facility] MCV Auto (RBC) [Entitic vol] Ordered By: Amanda Rosario on 01-09-2023 MCV (RBC) [Entitic vol] 90.3 fL 80-100 F [facility] Monocytes Auto (Bld) [#/Vol] Ordered By: Amanda Rosario on 01-09-2023 Monocytes (Bld) [#/Vol] 0.5 10*3/uL 0.0-0.8 [facility] Monocytes/100 WBC Auto (Bld) Ordered By: Amanda Rosario on 01-09-2023 Monocytes/100 WBC (Bld) 10.5 % . F [facility] Neutrophils Auto (Bld) [#/Vo l]Ordered By: Amanda Rosario on 01-09-2023 Neutrophils (Bld) [#/Vol] 3.2 10*3/uL 1.8-7.7 [facility] Neutrophils/100 WBC Auto (Bl d)Ordered By: Amanda Rosario on 01-09-2023 Neutrophils/100 WBC (Bld) 67.3 % . [facility] No Panel InformationOrdered By: Amanda Rosario on 01-09-2023 Estimated GFR () > 60 mL/Min [facility] Comment on above: GFR estimated refere nce range: According to KDOQI guidelines, <60 ml/min/1.73m2 is sufficient to diagnose a patient with chronic kidney disease. Pharmacy Creatinine Clearance (Chem 120.49 [facility] Nucleated erythrocytes [Pres ence] in Blood by Automated countOrdered By: Amanda Rosario on 01-09-2023 Nucleated RBC Auto Ql (Bld) 0.1 /100{WBC} 0-0.5 [facility] Platelet mean volume Auto (B ld) [Entitic vol]Ordered By: Amanda Rosario on 01-09-2023 Platelet mean volume (Bld) [Entitic vol] 7.9 fL 6.3-10.7 [facility] Platelets Auto (Bld) [#/Vol] Ordered By: Amanda Rosario on 01-09-2023 Platelets (Bld) [#/Vol] 290 10*3/uL 150-450 [facility] Potassium [Moles/volume] in Serum or PlasmaOrdered By: Amanda Rosario on 01-09-2023 Potassium [Moles/Vol] 4.4 mmol/L 3.5-5.1 [facility] Protein [Mass/volume] in Ser um or PlasmaOrdered By: Amanda Rosario on 01-09-2023 Protein [Mass/Vol] 6.6 g/dL 6.1-7.9 [facility] RBC Auto (Bld) [#/Vol]Ordere d By: Amnada Rosario on 01-09-2023 RBC (Bld) [#/Vol] 4.37 10*6/uL 3.60-5.00 [facility] Serum or plasma alanine green otransferase measurement without P-5'-P (enzymatic activiOrdered By: Amanda Rosario on 01-09-2023 ALT No additional P-5'-P [Catalytic activity/Vol] 20 U/L 10-60 [facility] Serum or plasma albumin/glob ulin mass ratioOrdered By: Amanda Rosario on 01-09-2023 Albumin/Globulin [Mass ratio] 1.9 {ratio} [facility] Serum or plasma anion gap de terminationOrdered By: Amanda Rosario on 01-09-2023 Anion gap [Moles/Vol] 10.2 mmol/L 6.0-15.0 [facility] Sodium [Moles/volume] in Ser um or PlasmaOrdered By: Amanda Rosario on 01-09-2023 Sodium [Moles/Vol] 137 mmol/L 136-146 [facility] Urea nitrogen [Mass/volume] in Serum or PlasmaOrdered By: Amanda Rosario on 01-09-2023 Urea nitrogen [Mass/Vol] 13 mg/dL 9-23 [facility] WBC Auto (Bld) [#/Vol]Ordere d By: Amanda Rosario on 01-09-2023 WBC (Bld) [#/Vol] 4.8 10*3/uL 3.8-11.6 [facility] CBC AUTO DIFFon 12-31-2022 BASO # 0.1 103/ul Normal 0.0-0.1 [facility] Comment on above: Performed By: #### C BC #### [facility] [address] [place] [address] Dr. Beth Pineda Basophils/100 WBC (Bld) 1.2 % Normal 0.2-2.0 [facility] Comment on above: Performed By: #### C BC #### [facility] [address] [place] [address] Dr. Beth Pineda EO # 0.1 103/ul Normal 0.0-0.7 [facility] Comment on above: Performed By: #### C BC #### [facility] [address] [place] [address] Dr. Beth Pineda Eosinophils/100 WBC (Bld) 2.1 % Normal 0.9-7.0 [facility] Comment on above: Performed By: #### C BC #### [facility] [address] [place] [address] Dr. Beth Pineda Erythrocyte distribution width (RBC) [Ratio] 12.9 % Normal 11.0-15.0 [facility] Comment on above: Performed By: #### C BC #### [facility] [address] [place] [address] Dr. Beth Pineda Hematocrit (Bld) [Volume fraction] 41.2 % Normal 36.0-48.0 [facility] Comment on above: Performed By: #### C BC #### [facility] [address] [place] [address] Dr. Beth Pineda Hemoglobin (Bld) [Mass/Vol] 13.5 g/dL Normal 12.0-16.0 [facility] Comment on above: Performed By: #### C BC #### [facility] [address] [place] [address] Dr. Beth Pineda IG # 0.01 10e3/ul Normal 0.00-0.03 [facility] Comment on above: Performed By: #### C BC #### [facility] [address] [place] [address] Dr. Beth Pineda IG % 0.2 % Normal 0.0-0.5 [facility] Comment on above: Performed By: #### C BC #### [facility] [address] [place] [address] Dr. Beth Pineda LYMPH # 1.6 103/ul Normal 1.2-3.[address] [facility] Comment on above: Performed By: #### C BC #### [facility] [address] [place] [address] Dr. Beth Pineda Lymphocytes/100 WBC (Bld) 29.9 % Normal 20.5-60.0 [facility] Comment on above: Performed By: #### C BC #### [facility] [address] [place] [address] Dr. Beth Pineda MANUAL DIFF REQ NO Normal [facility] Comment on above: Performed By: #### C BC #### [facility] [address] [place] [address] Dr. Beth Pineda MCH (RBC) [Entitic mass] 30.3 pg Normal 26.7-34.0 [facility] Comment on above: Performed By: #### C BC #### [facility] [address] [place] [address] Dr. Beth Pineda MCHC (RBC) [Mass/Vol] 32.8 g/dL Normal 29.9-35.2 [facility] Comment on above: Performed By: #### C BC #### [facility] [address] [place] [address] Dr. Beth Pineda MCV (RBC) [Entitic vol] 92.6 fL Normal 81.0-99.0 [facility] Comment on above: Performed By: #### C BC #### [facility] [address] [place] [address] Dr. Beth Pineda MONO # 0.4 103/ul Normal 0.3-0.8 [facility] Comment on above: Performed By: #### C BC #### [facility] [address] [place] [address] Dr. Beth Pineda Monocytes/100 WBC (Bld) 7.9 % Normal 1.7-12.0 [facility] Comment on above: Performed By: #### C BC #### [facility] [address] [place] [address] Dr. Beth Pineda NEUT # 3.0 103/ul Normal 1.4-6.5 [facility] Comment on above: Performed By: #### C BC #### [facility] [address] [place] [address] Dr. Beth Pineda Neutrophils/100 WBC (Bld) 58.7 % Normal 43.0-75.0 [facility] Comment on above: Performed By: #### C BC #### [facility] [address] [place] [address] Dr. Beth Pineda Platelet mean volume (Bld) [Entitic vol] 9.3 fL Critically low 9.5-13.5 [facility] Comment on above: Performed By: #### C BC #### [facility] [address] [place] [address] Dr. Beth Pineda PLT 304 103/ul Normal 150-450 [facility] Comment on above: Performed By: #### C BC #### [facility] [address] [place] [address] Dr. Beth Pineda RBC 4.45 106/ul Normal 4.20-5.40 [facility] Comment on above: Performed By: #### C BC #### [facility] [address] [place] [address] Dr. Beth Pineda WBC 5.2 103/ul Normal 4.0-11.0 [facility] Comment on above: Performed By: #### C BC #### [facility] [address] [place] [address] Dr. Beth Pineda GLYCOHEMOGLOBIN A1Con 2022 ADA RECOMMENDATION SEE BELOW Normal [facility] Comment on above: Result Comment: ADA RECOMMENDED LIMIT 4.0 - 6.0 ADA THERAPEUTIC TARGET < 7.0 ACTION SUGGESTED > 7.0 Performed By: #### T SH #### [facility] [address] [place] [address] Dr. Beth Pineda Glucose [Mass/Vol] 91 mg/dL Normal [facility] Comment on above: Performed By: #### T SH #### [facility] [address] [place] [address] Dr. Beth Pineda HbA1c (Bld) [Mass fraction] 4.8 % Normal 4.5-6.2 [facility] Comment on above: Performed By: #### T SH #### [facility] [address] [place] [address] Dr. Beth Pineda LIPID PROFILEon 12-31-2022 CHOL-HDL RATIO NORM SEE BELOW Normal [facility] Comment on above: Result Comment: 3.3 - 4.4 LOW RISK 4.4 - 7.1 AVERAGE RISK 7.1 - 11.0 MODERATE RISK >11.0 HIGH RISK Performed By: #### A 1C #### [facility] [address] [address] [address] Beth Pineda Cholesterol [Mass/Vol] 180 mg/dL Normal <=200 Th [facility] Comment on above: Performed By: #### A 1C #### [facility] [address] [address] [address] Beth Pineda Cholesterol in HDL [Mass/Vol] 106 mg/dL Critically high 40-60 [facility] Comment on above: Performed By: #### A 1C #### [facility] [address] [address] [address] Beth Pineda Cholesterol in LDL [Mass/Vol] 66.6 mg/dL Normal [facility] Comment on above: Performed By: #### A 1C #### [facility] [address] [address] [address] Beth Pineda Cholesterol.total/Elida sterol in HDL [Mass ratio] 1.7 {ratio} Normal [facility] Comment on above: Performed By: #### A 1C #### [facility] [address] [address] [address] Beth Pineda HDL NORMAL > or = 60 mg/dl - LO W CARDIOVASCULAR RISK <40 mg/dl - HIGH CARDIOVASCULAR RISK Normal [facility] Comment on above: Performed By: #### A 1C #### [facility] [address] [address] [address] Beth Pineda LDL CALC NORMAL SEE BELOW Normal [facility] Comment on above: Result Comment: <100 mg/dl OPTIMAL 100 - 129 mg/dl NEAR OR ABOVE OPTIMAL 130 - 159 mg/dl BORDERLINE HIGH 160 - 189 mg/dl HIGH >190 mg/dl VERY HIGH Performed By: #### A 1C #### [facility] [address] [address] [address] Beth Pineda Triglyceride [Mass/Vol] 37 mg/dL Normal <=150 [facility] Comment on above: Performed By: #### A 1C #### [facility] [address] [address] [address] Beth Pineda VLDL CALC 7.4 mg/dL Normal [facility] Comment on above: Performed By: #### A 1C #### [facility] [address] [place] [address] Dr. Beth Pineda PROF 14(COMP METB)on 023 Albumin [Mass/Vol] 4.3 g/dL Normal 3.4-5.0 [facility] Comment on above: Performed By: #### T SH #### [facility] [address] [place] [address] Dr. Beth Pineda Albumin/Globulin [Mass ratio] 1.3 {ratio} Normal [facility] Comment on above: Performed By: #### T SH #### [facility] [address] [place] [address] Dr. Beth Pineda ALP [Catalytic activity/Vol] 68 U/L Normal 46-116 [facility] Comment on above: Performed By: #### T SH #### [facility] [address] [place] [address] Dr. Beth Pineda ALT [Catalytic activity/Vol] 21 U/L Normal 14-59 [facility] Comment on above: Performed By: #### T SH #### [facility] [address] [place] [address] Dr. Beth Pineda Anion gap [Moles/Vol] 12.1 mmol/L Normal [facility] Comment on above: Performed By: #### T SH #### [facility] [address] [place] [address] Dr. Beth Pineda AST [Catalytic activity/Vol] 10 U/L Critically low 15-37 [facility] Comment on above: Performed By: #### T SH #### [facility] [address] [place] [address] Dr. Beth Pineda Bilirubin [Mass/Vol] 0.6 mg/dL Normal 0.2-1.0 [facility] Comment on above: Performed By: #### T SH #### [facility] [address] [place] [address] Dr. Beth Pineda Calcium [Mass/Vol] 9.2 mg/dL Normal 8.5-10.1 [facility] Comment on above: Performed By: #### T SH #### [facility] [address] [place] [address] Dr. Beth Pineda Chloride [Moles/Vol] 103 mmol/L Normal 98-107 [facility] Comment on above: Performed By: #### T SH #### [facility] [address] [place] [address] Dr. Beth Pineda CO2 [Moles/Vol] 28.0 mmol/L Normal 21.0-32.0 [facility] Comment on above: Performed By: #### T SH #### [facility] [address] [place] [address] Dr. Beth Pineda Creatinine [Mass/Vol] 0.73 mg/dL Normal 0.55-1.02 [facility] Comment on above: Performed By: #### T SH #### [facility] [address] [place] [address] Dr. Beth Pineda EGFR-AF DANISH >60 Normal >=60 [facility] Comment on above: Performed By: #### T SH #### [facility] [address] [place] [address] Dr. Beth Pineda EGFR-NON AF DANISH >60 Normal >=60 [facility] Comment on above: Performed By: #### T SH #### [facility] [address] [place] [address] Dr. Beth Pineda Globulin (S) [Mass/Vol] 3.2 g/dL Normal [facility] Comment on above: Performed By: #### T SH #### [facility] [address] [place] [address] Dr. Beth Pineda Glucose [Mass/Vol] 89 mg/dL Normal 74-106 [facility] Comment on above: Performed By: #### T SH #### [facility] [address] [place] [address] Dr. Beth Pineda Potassium [Moles/Vol] 4.1 mmol/L Normal 3.5-5.1 [facility] Comment on above: Performed By: #### T SH #### [facility] [address] [place] [address] Dr. Beth Pineda Protein [Mass/Vol] 7.5 g/dL Normal 6.4-8.2 [facility] Comment on above: Performed By: #### T SH #### [facility] [address] [address] [address] Beth Pineda Sodium [Moles/Vol] 139 mmol/L Normal 136-145 [facility] Comment on above: Performed By: #### T SH #### [facility] [address] [address] [address] Beth Pineda Urea nitrogen [Mass/Vol] 10.0 mg/dL Normal 7.0-18.0 [facility] Comment on above: Performed By: #### T SH #### [facility] [address] [place] [address] Dr. Beth Pineda Urea nitrogen/Creatinine [Mass ratio] 13.7 mg/mg Normal [facility] Comment on above: Performed By: #### T SH #### [facility] [address] [address] [address] Beth Pineda TSHon 12-31-2022 TSH 3.121 uIU/mL Normal 0.358-3.740 [facility] Comment on above: Performed By: #### A 1C #### [facility] [address] [place] [address] Dr. Beth Pineda Albumin [Mass/volume] in Ser um or PlasmaOrdered By: Amanda Rosario on 07-08-2022 Albumin [Mass/Vol] 3.9 g/dL 3.2-5.5 [facility] Basophils Auto (Bld) [#/Vol] Ordered By: Amanda Rosario on 07-08-2022 Basophils (Bld) [#/Vol] 0.1 10*3/uL 0.0-0.2 [facility] Basophils/100 WBC Auto (Bld) Ordered By: Amanda Rosario on 07-08-2022 Basophils/100 WBC (Bld) 1.3 % . F [facility] Blood hemoglobin measurement (mass/volume)Ordered By: Amanda Rosario on 07-08-2022 Hemoglobin (Bld) [Mass/Vol] 14.2 g/dL 11.8-15.4 [facility] Blood leukocytes automated c ount (number/volume)Ordered By: Amanda Rosario on 07-08-2022 WBC (Bld) [#/Vol] 5.6 10*3/uL 4.5-11.[address] [facility] [address] biopsyOrdered By: Amanda Nino se on 07-08-2022 Transferrin [Mass/Vol] 346 mg/dL 180-380 [facility] and Glomerular fi ltration rate.predicted panel (S/P/Bld)Ordered By: Amanda Rosario on 07-08-2022 Creatinine [Mass/Vol] 0.78 mg/dL 0.44-1.03 [facility] Eosinophils Auto (Bld) [#/Vo l]Ordered By: Amanda Rosario on 07-08-2022 Eosinophils (Bld) [#/Vol] 0.1 10*3/uL 0.0-0.45 [facility] Eosinophils/100 WBC Auto (Bl d)Ordered By: Amanda Rosario on 07-08-2022 Eosinophils/100 WBC (Bld) 1.2 % . [facility] Erythrocyte distribution wid th Auto (RBC) [Ratio]Ordered By: Amanda Rosario on 07-08-2022 Erythrocyte distribution width (RBC) [Ratio] 12.4 % 11.9-15.3 [facility] Estimated glomerular filtrat ion rate (GFR) non- AmericanOrdered By: Amanda Rosario on 07-08-2022 GFR/1.73 sq M.predicted among non-blacks MDRD (S/P/Bld) [Vol rate/Area] > 60 mL/Min [facility] Ferritin [Mass/volume] in Se rum or PlasmaOrdered By: Amanda Rosario on 07-08-2022 Ferritin [Mass/Vol] 9.6 ng/mL 11-306.8 [facility] Globulin Calc (S) [Mass/Vol] Ordered By: Amanda Rosario on 07-08-2022 Globulin (S) [Mass/Vol] 2.9 g/dL F [facility] Hematocrit Auto (Bld) [Volum e fraction]Ordered By: Amanda Rosario on 07-08-2022 Hematocrit (Bld) [Volume fraction] 42.7 % 34.0-46.4 [facility] Iron [Mass/volume] in Serum or PlasmaOrdered By: Amanda Rosario on 07-08-2022 Iron [Mass/Vol] 173 ug/dL 40-150 [facility] Iron binding capacity [Mass/ volume] in Serum or PlasmaOrdered By: Amanda Rosario on 07-08-2022 Iron binding capacity [Mass/Vol] 484 ug/dL 255-450 [facility] Iron saturation [Mass Fracti on] in Serum or PlasmaOrdered By: Amanda Rosario on 07-08-2022 Iron saturation [Mass fraction] 35.0 % 20-50 [facility] Laboratory - Hematology and Cell countsOrdered By: Amanda Rosario on 07-08-2022 Nucleated RBC/100 WBC (Bld) [Ratio] 0.2 % 0-0.5 [facility] Lactate dehydrogenase measur ement (enzymatic activity/volume)Ordered By: Amanda Rosario on 07-08-2022 LDH (Unsp spec) [Catalytic activity/Vol] 154 U/L 45-190 [facility] Lymphocytes Auto (Bld) [#/Vo l]Ordered By: Amanda Rosario on 07-08-2022 Lymphocytes (Bld) [#/Vol] 1.5 10*3/uL 1.00-4.8 [facility] Lymphocytes/100 WBC Auto (Bl d)Ordered By: Amanda Rosario on 07-08-2022 Lymphocytes/100 WBC (Bld) 26.6 % . [facility] MCH Auto (RBC) [Entitic mass ]Ordered By: Amanda Rosario on 07-08-2022 MCH (RBC) [Entitic mass] 29.7 pg 24.7-34.3 [facility] MCHC Auto (RBC) [Mass/Vol]Or dered By: Amanda Rosario on 07-08-2022 MCHC (RBC) [Mass/Vol] 33.3 g/dL 32.0-35.0 [facility] MCV Auto (RBC) [Entitic vol] Ordered By: Amanda Rosario on 07-08-2022 MCV (RBC) [Entitic vol] 89.4 fL 80-100 F [facility] Monocytes Auto (Bld) [#/Vol] Ordered By: Amanda Rosario on 07-08-2022 Monocytes (Bld) [#/Vol] 0.5 10*3/uL 0.0-0.8 [facility] Monocytes/100 WBC Auto (Bld) Ordered By: Amanda Rosario on 07-08-2022 Monocytes/100 WBC (Bld) 9.7 % . F [facility] Neutrophils Auto (Bld) [#/Vo l]Ordered By: Amanda Rosario on 07-08-2022 Neutrophils (Bld) [#/Vol] 3.4 10*3/uL 1.8-7.7 [facility] Neutrophils/100 WBC Auto (Bl d)Ordered By: Amanda Rosario on 07-08-2022 Neutrophils/100 WBC (Bld) 61.2 % . [facility] No Panel InformationOrdered By: Amanda Rosario on 07-08-2022 Adrenocorticotropic Hormone 8.2 pg/mL 7.2-63.3 [facility] Comment on above: ACTH reference inter cruz for samples collected between 7 and 10 AM. Performed at: [employer] [id number] Content Director: Sai Smalls PhD, Phone: [phone] ACTH reference inter cruz for samples collected between 7 and10 AM.Performed at: [employer] [id number] Director: Sai Smalls PhD, Phone: [phone] Estimated GFR () > 60 mL/Min [facility] Comment on above: GFR estimated refere nce range: According to KDOQI guidelines, <60 ml/min/1.73m2 is sufficient to diagnose a patient with chronic kidney disease. Pharmacy Creatinine Clearance (Chem 111.22 [facility] Total Triiodothyronine 1.68 ng/mL 0.87-1.78 Fi [facility] Platelet mean volume Auto (B ld) [Entitic vol]Ordered By: Amanda Rosario on 07-08-2022 Platelet mean volume (Bld) [Entitic vol] 8.0 fL 6.3-10.7 [facility] Platelets Auto (Bld) [#/Vol] Ordered By: Amanda Rosario on 07-08-2022 Platelets (Bld) [#/Vol] 393 10*3/uL 150-450 [facility] Protein [Mass/volume] in Ser um or PlasmaOrdered By: Amanda Rosario on 07-08-2022 Protein [Mass/Vol] 6.8 g/dL 6.1-7.9 [facility] RBC Auto (Bld) [#/Vol]Ordere d By: Amanda Rosario on 07-08-2022 RBC (Bld) [#/Vol] 4.78 10*6/uL 3.60-5.00 [facility] Random cortisol measurementO rdered By: Amanda Rosario on 07-08-2022 Cortisol [Mass/Vol] 12.6 ug/dL [facility] Comment on above: Reference range: AM 6 - 24 ug/dl PM <10 ug/dl Reference range: AM 6 - 24 ug/dl PM <10 ug/dl Serum or plasma alanine green otransferase measurement without P-5'-P (enzymatic activiOrdered By: Amanda Rosario on 07-08-2022 ALT No additional P-5'-P [Catalytic activity/Vol] 17 U/L 10-60 [facility] Serum or plasma albumin/glob ulin mass ratioOrdered By: Amanda Rosario on 07-08-2022 Albumin/Globulin [Mass ratio] 1.3 {ratio} [facility] Serum or plasma alkaline mando sphatase measurement (enzymatic activity/volume)Ordered By: Amanda Rosario on 07-08-2022 ALP [Catalytic activity/Vol] 52 U/L 32-92 [facility] Serum or plasma aspartate am inotransferase measurement (enzymatic activity/volume)Ordered By: Amanda Rosario on 07-08-2022 AST [Catalytic activity/Vol] 22 U/L 10-42 [facility] Serum or plasma calcium saritha urement (mass/volume)Ordered By: Amanda Rosario on 07-08-2022 Calcium [Mass/Vol] 9.3 mg/dL 8.2-10.2 [facility] Serum or plasma chloride obi surement (moles/volume)Ordered By: Amanda Rosario on 07-08-2022 Chloride [Moles/Vol] 104 mmol/L 95-114 [facility] Serum or plasma glucose saritha urement (mass/volume)Ordered By: Amanda Rosario on 07-08-2022 Glucose [Mass/Vol] 83 mg/dL 70-100 [facility] Comment on above: ADA recommended refe rence range Random Glucose Reference Range is dependent on time and content of last meal. Glucose of more than 200 mg/dL in a nonstressed, ambulatory subject supports the diagnosis of Diabetes Mellitus. Serum or plasma potassium me asurement (moles/volume)Ordered By: Amanda Rosario on 07-08-2022 Potassium [Moles/Vol] 4.3 mmol/L 3.5-5.1 [facility] Serum or plasma sodium measu rement (moles/volume)Ordered By: Amanda Rosario on 07-08-2022 Sodium [Moles/Vol] 134 mmol/L 136-146 [facility] Serum or plasma thyroxine (T 4) measurement (mass/volume)Ordered By: Amanda Rosario on 07-08-2022 T4 [Mass/Vol] 11.18 ug/dL 5.39-11.82 [facility] Serum or plasma total biliru bin measurement (mass/volume)Ordered By: Amanda Rosario on 07-08-2022 Bilirubin [Mass/Vol] 0.7 mg/dL 0.3-1.2 [facility] Serum or plasma total carbon dioxide measurement (moles/volume)Ordered By: Amanda Rosario on 07-08-2022 CO2 [Moles/Vol] 22.2 mmol/L 22.0-30.0 [facility] Serum or plasma urea nitroge n measurement (mass/volume)Ordered By: Amanda Rosario on 07-08-2022 Urea nitrogen [Mass/Vol] 9 mg/dL 9-23 [facility] TSH DL <= 0.005 mIU/L QnOrde red By: Amanda Rosario on 07-08-2022 TSH Qn 1.69 m[IU]/L 0.45-5.33 [facility] CHLAMYDIA/GONOCOCCUS PARMINDER ( AB/URINE/PAPon 06-19-2022 Chlamydia trachomatis, PARMINDER Negative Normal Negative [facility] Comment on above: Performed By: #### T #### [facility] [address] [address] [address] Beth Pineda Neisseria gonorrhoeae, PARMINDER Negative Normal Negative [facility] Comment on above: Performed By: #### T SH #### [facility] [address] [address] [address] Beth Pineda VAGINITIS/VAGINOSIS DNA PROB Kaden 06-18-2022 Steven species Negative Normal Negative [facility] Comment on above: Performed By: #### T SH #### [facility] [address] [address] [address] Beth Pineda Gardnerella vaginalis Negative Normal Negative [facility] Comment on above: Performed By: #### T SH #### [facility] [address] [address] [address] Beth Pineda Trichomonas vaginalis Negative Normal Negative [facility] Comment on above: Performed By: #### T SH #### [facility] [address] [address] [address] Beth Pineda Creatinine [Mass/volume] in UrineOrdered By: Amanda Rosario on 05-23-2022 Creatinine (U) [Mass/Vol] 26.2 mg/dL [facility] Comment on above: No reference range e stablished Laboratory - Chemistry and C hemistry - challengeOrdered By: Amanda Rosario on 05-23-2022 Lipase [Catalytic activity/Vol] 32.0 U/L 22-51 [facility] Protein [Mass/volume] in Uri neOrdered By: Amanda Rosario on 05-23-2022 Protein (U) [Mass/Vol] mg/dL 0-9 [facility] Thyroxine (T4) free [Mass/vo lume] in Serum or PlasmaOrdered By: Amanda Rosario on 05-23-2022 Free T4 [Mass/Vol] 0.88 ng/dL 0.61-1.12 [facility] Bilirubin Test strip Ql (U)O rdered By: Amanda Rosario on 10-30-2021 Bilirubin Ql (U) Negative Negative [facility] Color Auto (U)Ordered By: Ira Rosario on 10-30-2021 Color (U) Yellow Yellow [facility] Ketones Auto test strip (U) [Mass/Vol]Ordered By: Amanda Rosario on 10-30-2021 Ketones (U) [Mass/Vol] Negative Negative [facility] Nitrite Test strip Ql (U)Ord ered By: Amanda Rosario on 10-30-2021 Nitrite Ql (U) Negative Negative [facility] Protein Auto test strip (U) [Mass/Vol]Ordered By: Amanda Rosario on 10-30-2021 Protein (U) [Mass/Vol] Negative Negative [facility] Specific gravity Auto test s trip (U) [Rel density]Ordered By: Amanda Rosario on 10-30-2021 Specific gravity (U) [Rel density] 1.008 1.001-1.030 [facility] Urine clarity by refractomet ry automatedOrdered By: Amanda Rosario on 10-30-2021 Clarity Refractometry automated (U) Clear Clear [facility] Urine glucose measurement by automated test strip (mass/volume)Ordered By: Amanda Rosario on 10-30-2021 Glucose Auto test strip (U) [Mass/Vol] Normal mg/dL Normal [facility] Urine hemoglobin detection b y automated test stripOrdered By: Amanda Rosario on 10-30-2021 Hemoglobin Auto test strip Ql (U) Negative Negative [facility] Urine leukocyte esterase det ection by automated test stripOrdered By: Amanda Rosario on 10-30-2021 Leukocyte esterase Auto test strip Ql (U) Negative Negative [facility] Urobilinogen Auto test strip (U) [Mass/Vol]Ordered By: Amanda Rosario on 10-30-2021 Urobilinogen (U) [Mass/Vol] Normal mg/dL Normal [facility] pH Auto test strip (U)Ordere d By: Amanda Rosario on 10-30-2021 pH (U) 5.5 [pH] 5.0-9.0 [facility] Lab Reportson 07-31-2021 Lab Reports [id number] D:127 Normal [facility] RAD - MISCon 07-31-2021 RAD - MISC [id number] D:127 Normal [facility] HCG ( test) IA.manii d Ql (U)Ordered By: Amanda Rosario on 07-09-2021 HCG ( test) Ql (U) Negative [facility] Glucose Glucometer (BldC) [M ass/Vol]Ordered By: Amanda Rosario on 07-01-2021 Glucose [Mass/Vol] 82 mg/dL [facility] Comment on above: Random Glucose Refer ence Range is dependent on time and content of last meal. Glucose of more than 200 mg/dL in a nonstressed, ambulatory subject supports the diagnosis of Diabetes Mellitus. 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 Will follow up with the pathology report once this is resulted Dictation software was used in the creation of this note and not corrected for typographical or grammatical errors Chief Complaint Postop History of Present [id number] woman who underwent wide excision right posterior calf melanoma with [place] flap reconstruction as well as right inguinal and iliac sentinel lymph node biopsy on 05/17/2021. Pathology report has not yet resulted. She is recovering well. Active Problems Malignant melanoma of lower leg, right (172.7) (C43.71) Allergies No Known Drug Allergies Recorded By: Florence Fernando; 05/30/2021 2:49:13 PM Vitals Vital Signs Recorded: 30May2021 02:47PM [id number] C, Temporal Heart [id number] [id number], RUE, Sitting Ecusdnzap26, RUE, Sitting Blood Pressure Cuff SizeAdult Odtglc457 cm Hnacsn88.6 kg BMI Fmcwteprbi95.58 kg/m2 BSA Calculated1.77 O2 Sdhvcazocg04 Pain Scale0 Physical Exam Right groin wounds [...] These were compared to the original melanoma ([id number]) and are consistent with a metastatic focus [...] that were compared to the original melanoma ([id number]) and are smaller with less cytoplasm compared [...] determined by the Department of Pathology at [facility]. The FDA does not require [...] landis-yellow irregularly shaped piece of skin measuring 11p11r0ew. The specimen is embedded in toto. B: Received in formalin is a landis-yellow irregularly shaped piece of skin measuring 42p6r5vt. The specimen is embedded in toto. C: Received in formalin is a landis-yellow irregularly shaped piece of skin measuring [id number]. The specimen is embedded in toto. D: Received in formalin is a landis ellipse of skin measuring [id number], oriented by the surgeon with short stitch [...] Block 1 is at 12 o'clock. ink/05/21/2021 [facility] Dermatopathology [facility] [place], [place] [address] [place] [address] 310 Normal [facility] Comment on above: Performed By: #### D #### Dermatopathology HCG,URINEon 05-17-2021 Beta HCG ( test) Ql (U) Negative Normal Negative [facility] Comment on above: Performed By: #### H CGU #### [facility] [address] [place] [address] LYMPH GLANDon 05-17-2021 LYMPH GLAND Patient Name: AILYN KANG STUDY: LYMPH GLAND; 05/17/2021 12:45 pm INDICATION: Malignant melanoma of right posterior leg. COMPARISON: None. ACCESSION NUMBER(S): [id number] ORDERING CLINICIAN: SARAH NEVAREZ TECHNIQUE: DIVISION OF NUCLEAR MEDICINE RADIONUCLIDE SENTINEL LYMPH NODE LYMPHOSCINTIGRAPHY A total of 0.870 millicuries of Tc-99m tilmanocept (LymphTrue Office) was injected intradermally in a circumferential pattern [...] as stated. This study was interpreted at [facility] [place], [place]. Electronically signed by: TAMY LAWTON MD Normal [facility] [place] Lymph Glandon 05-17-2021 [place] Lymph node Views Normal [facility] d[facility] Main Work Phone: No Panel Informationon 05-17 [facility] Work Phone: Order Reconciliationon 05-17 [...] 4 days PRN pain, Dx: G89.[address] [facility] Patient Profile - Preop v2on 05-17-2021 Patient Profile - Preop v2 Profile: Initial Info: How to be AddressedSamantha Spoken Language PreferredEnglish Source of Informationpatient Are you currently using the Personal Electronic Health Record or MYCAREno Are you interested in learning more about [facility] for the management of your healthnot at this time Stated Reason for Admissionwide excision melanoma right posterior leg, keystone flap and sentinel lymph node biopsy Primary Contact Name and Numberleigh ann El [phone] Limitations on Visitors/Phone Callsnone Patient Belongingsremains with patient Patient Belongings Remaining with Patientclothing; cell phone/electronics Medications Brought to Hospitalno General Health: Weight in kg63.6 kilogram(s) Weight in ijd078.2 pound(s) Weight Methodstated Height in feet5 feet Height in inches8 inch(es) Height in cm172.7 centimeter(s) Height Methodstated BMI (kg/m2)21.324 square meter Patient or Family Member Reaction to Anesthesianever had anesthesia Blood Avoidance/Restrictionsn one Previous Transfusion Reactionno Health Mgmt: Symptoms/Conditions Managed at [facility] Are You no Are You Currently Breastfeedingno Barriers to Managing Healthnone Relationship/Environ: Living Arrangementshouse Lives Withsignificant other Resource/Environmental Concernsnone [place] Anticipated at Transitionnone Substance: Current or [...] instruction; written material Cultural Considerationsnone Developmental Considerationsnone Christian Considerationsnone Other learner availableno Falls RiskPatient location auto qualifies him/her for HIGH RISK. Are there any cultural, spiritual, gnosticist practices/values/needs that are important for us to knowno Do you want a visit/item from [facility] Would you like your Tank Car Repairer/Aerial Photogrammetrist notifiedno Pain Scalenumerical 0-10 Pain Scale Educationteaching [...] 17-May-2021 09:34 by Arabella Luis (ERICK DOWELL) [facility] Preop Checkliston 05-17-2021 Preop Checklist Preop Checklist: Preop Checklist: Arrival [id number] Arrival Time08:55 Procedure Typewide excision melanoma right posterior leg, keystone flap and sentinel lymph node biopsy Temperature C37.1 degrees C Temperature F98.7 degrees F Heart Rate92 beats per minute Respiratory Rate16 breath per minute Blood Pressure Lbfxajna337 mm/Hg Blood Pressure Wbbebzjyg66 mm/Hg NPO Lntfpa06-Iah-2423 22:00 Allergy Bandno known allergies Consent Signedyes [...] 17-May-2021 09:36 by Arabella Luis (ERICK PRN) Normal [facility] Urine Teston 05-17 HCG ( test) Ql (U) Negative Negative GZ-Cctrqhk-L dmin Main Work Phone: Initial Visit (General Surge ry)on 05-02-2021 Initial Visit (General Surgery) Diagnoses/Problems Malignant melanoma of lower leg, right (172.7) (C43.71) *Orders Malignant melanoma of lower leg, right Urine Test; Status:Active - Retrospective By Protocol Authorization; Requested for:02May2021; Perform:Lab Services - Lab To Draw (Non-Blood Test); Due:[id number]; Last Updated By:Di Giles; 05/02/2021 3:07:40 PM;Ordered; [...] errors Chief Complaint Melanoma History of Present Utfexwl50-lpkb-uhr woman referred from [facility] for right [...] Time Vital Sign Value Performing Clinician Facility 12-28-2024 11:12-0500 Body mass index (BMI) [Ratio] 23.35 kg/m2 Delvis Kt DO Work Phone: [facility] 12-28-2024 11:12-0500 Body weight 71.72 kg Delvis Kt DO Work Phone: [facility] 12-28-2024 11:12-0500 Diastolic blood pressure 74 mm[Hg] Delvis Tk DO Work Phone: [facility] 12-28-2024 11:12-0500 Systolic blood pressure 120 mm[Hg] Delvis Kt DO Work Phone: [facility] 11-28-2024 14:41-0500 Body mass index (BMI) [Ratio] 22.74 kg/m2 Delvis Kt DO Work Phone: [facility] 11-28-2024 14:41-0500 Body weight 69.85 kg Delvis Kt DO Work Phone: [facility] 11-28-2024 14:41-0500 Diastolic blood pressure 70 mm[Hg] Delvis Kt DO Work Phone: [facility] 11-28-2024 14:41-0500 Systolic blood pressure 118 mm[Hg] Delvis Kt DO Work Phone: [facility] 10-24-2024 14:44-0500 Body mass index (BMI) [Ratio] 22 kg/m2 Dlevis Kt DO Work Phone: [facility] 10-24-2024 14:44-0500 Body weight 67.59 kg Delvis Kt DO Work Phone: [facility] 10-24-2024 14:44-0500 Diastolic blood pressure 68 mm[Hg] Delvis Kt DO Work Phone: [facility] 10-24-2024 14:44-0500 Systolic blood pressure 114 mm[Hg] Delvis Kt DO Work Phone: [facility] 10-11-2024 14:39-0500 Body height 175.3 cm Mike Wagner MD Work Phone: [facility] 10-11-2024 14:39-0500 Body mass index (BMI) [Ratio] 21.56 kg/m2 Mike Wagner MD Work Phone: [facility] 10-11-2024 14:39-0500 Body temperature 97.5 [degF] Mike Wagner MD Work Phone: [facility] 10-11-2024 14:39-0500 Body weight 66.22 kg Mike Wagner MD Work Phone: [facility] 10-11-2024 14:39-0500 Diastolic blood pressure 52 mm[Hg] Mike Wagner MD Work Phone: [facility] 10-11-2024 14:39-0500 Heart rate 106 /min Mike Wagner MD Work Phone: [facility] 10-11-2024 14:39-0500 Respiratory rate 22 /min Mike Wagner MD Work Phone: [facility] 10-11-2024 14:39-0500 SaO2% (BldA) [Mass fraction] 99 % Mike Wagner MD Work Phone: [facility] 10-11-2024 14:39-0500 Systolic blood pressure 118 mm[Hg] Mike Wagner MD Work Phone: [facility] 09-26-2024 15:17-0500 Body mass index (BMI) [Ratio] 21.34 kg/m2 Delvis Kt DO Work Phone: [facility] 09-26-2024 15:17-0500 Body weight 65.55 kg Delvis Kt DO Work Phone: [facility] 09-26-2024 15:17-0500 Diastolic blood pressure 68 mm[Hg] Delvis Kt DO Work Phone: [facility] 09-26-2024 15:17-0500 Systolic blood pressure 116 mm[Hg] Delvis Kt DO Work Phone: [facility] 08-26-2024 10:04-0400 Body mass index (BMI) [Ratio] 20.97 kg/m2 [facility] Nurse [facility] 08-26-2024 10:04-0400 Body weight 64.41 kg [facility] Nurse [facility] 08-26-2024 10:04-0400 Diastolic blood pressure 82 mm[Hg] [facility] Nurse [facility] 08-26-2024 10:04-0400 Systolic blood pressure 118 mm[Hg] [facility] 05-22-2023 08:55-0400 Body temperature 97.8 [degF] MD Sarah Nevarez Work Phone: [facility] 05-22-2023 08:55-0400 Body weight 69.85 kg MD Sarah Nevarez Work Phone: [facility] 05-22-2023 08:55-0400 Diastolic blood pressure 68 mm[Hg] MD Sarah Nevarez Work Phone: [facility] 05-22-2023 08:55-0400 Heart rate 79 /min MD Sarah Nevarez Work Phone: [facility] 05-22-2023 08:55-0400 Respiratory rate 16 /min MD Sarah Nevarez Work Phone: [facility] 05-22-2023 08:55-0400 SaO2% (BldA) [Mass fraction] 98 % MD Sarah Nevarez Work Phone: [facility] 05-22-2023 08:55-0400 Systolic blood pressure 108 mm[Hg] MD Sarah Nevarez Work Phone: [facility] 01-21-2023 14:57-0500 Body temperature 97.8 [degF] MD Sarah Nevarez Work Phone: [facility] 01-21-2023 14:57-0500 Body weight 67.2 kg MD Sarah Nevarez Work Phone: [facility] 01-21-2023 14:57-0500 Diastolic blood pressure 79 mm[Hg] MD Sarah Nevarez Work Phone: [facility] 01-21-2023 14:57-0500 Heart rate 72 /min MD Sarah Nevarez Work Phone: [facility] 01-21-2023 14:57-0500 Respiratory rate 16 /min MD Sarah Nevarez Work Phone: [facility] 01-21-2023 14:57-0500 SaO2% (BldA) [Mass fraction] 98 % MD Sarah Nevarez Work Phone: [facility] 01-21-2023 14:57-0500 Systolic blood pressure 119 mm[Hg] MD Sarah Nevarez Work Phone: [facility] 07-08-2022 13:02-0400 Body height 172.72 cm MD Amanda Rosario Work Phone: [facility] 07-08-2022 13:02-0400 Body temperature 98 [degF] MD Amanda Rosario Work Phone: [facility] 07-08-2022 13:02-0400 Body weight 67.81 kg MD Amanda Rosario Work Phone: [facility] 07-08-2022 13:02-0400 Diastolic blood pressure 71 mm[Hg] MD Amanda Rosario Work Phone: [facility] 07-08-2022 13:02-0400 Heart rate 95 /min MD Amanda Rosario Work Phone: [facility] 07-08-2022 13:02-0400 Respiratory rate 20 /min MD Amanda Rosario Work Phone: [facility] 07-08-2022 13:02-0400 SaO2% (BldA) [Mass fraction] 97 % MD Amanda Rosario Work Phone: [facility] 07-08-2022 13:02-0400 Systolic blood pressure 115 mm[Hg] MD Amanda Rosario Work Phone: [facility] 05-30-2021 14:47-0400 Body height 173 cm Price Girard Work Phone: [facility] Main Work Phone: 05-30-2021 14:47-0400 Body mass index (BMI) [Ratio] 21.58 kg/m2 Price Girard Work Phone: JS-Vtxcxnb-Uvmpy Main Work Phone: 05-30-2021 14:47-0400 Body surface area Derived from formula 1.77 m2 Price Girard Work Phone: XZ-Vfvekgs-Tijvk Main Work Phone: 05-30-2021 14:47-0400 Body temperature 98.6 [degF] Price Girard Work Phone: VC-Vvzzrmi-Uhfnj Main Work Phone: 05-30-2021 14:47-0400 Body weight 64.6 kg Price Girard Work Phone: AL-Jyoazga-Rqluj Main Work Phone: 05-30-2021 14:47-0400 Diastolic blood pressure 77 mm[Hg] Price Girard Work Phone: HY-Wxgsrgo-Znspt Main Work Phone: 05-30-2021 14:47-0400 Heart rate 103 /min Price Girard Work Phone: YK-Cvnqlxf-Idqex Main Work Phone: 05-30-2021 14:47-0400 Respiratory rate 16 /min Price Girard Work Phone: MH-Cqertxf-Sjwzf Main Work Phone: 05-30-2021 14:47-0400 SaO2% (BldA) [Mass fraction] 99 % Price Girard Work Phone: RF-Avbszvq-Bxmuf Main Work Phone: 05-30-2021 14:47-0400 Systolic blood pressure 131 mm[Hg] Price Girard Work Phone: ZY-Nkzagfm-Kmbhm Main Work Phone: 05-30-2021 14:47-0400 0 1 Price Girard Work Phone: OI-Ffxqwvg-Cxqrq Main Work Phone: Comment on above: [employer] 1997 00:00-0400 >na< [facility] Dept. 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 Encounters Encounter Date Encounter Type Care Provider Facility Start: 12-28-2024 End: 12-28-2024 Bamboo flowsheet Delvis Kt DO Work Phone: [facility] Start: 12-28-2024 End: 12-28-2024 Bamboo flowsheet Delvis Kt DO Work Phone: [facility] Start: 12-28-2024 End: 12-28-2024 flow sheet Delvis Kt DO Work Phone: [facility] Comment on above: 25 weeks gestation o f ; Diabetes mellitus screening; Urinary tract infection without hematuria, site unspecified Start: 12-28-2024 End: 12-28-2024 ambulatory DELVIS KT Not Available Start: 12-27-2024 End: 12-27-2024 Clinisync Result Encounter Generic External Data Provider [facility] Unsolicited Start: 12-27-2024 End: 12-27-2024 Clinisync Result Encounter Generic External Data Provider [facility] External [facility] Unsolicited Start: 11-28-2024 End: 11-28-2024 ambulatory DELVIS KT [...] 18-39 yrs Delvis Kt DO Work Phone: [facility] Comment on above: Second trimester pre gnancy; 16 weeks gestation of ; Vaginal discharge; STD exposure; Screening, , for anatomic survey; Hematuria, unspecified type Start: 10-24-2024 End: 10-24-2024 Bamboo flowsheet Delvis Kt DO Work Phone: [facility] Start: 10-24-2024 End: 10-26-2024 Bamboo flowsheet Delvis Kt DO Work Phone: [facility] Start: 10-24-2024 End: 10-26-2024 External Result Encounter Delvis Kt DO Work Phone: [facility] Unsolicited Start: 10-11-2024 End: 10-11-2024 Office outpatient visit 15 minutes Mike Wagner MD Work Phone: [facility] Comment on above: Acute non-recurrent [...] Phone: [facility] Comment on above: First trimester [...] Available Start: 08-19-2023 End: 08-19-2023 ambulatory Amanda Ninose Facility:[facility] Start: 05-22-2023 End: 05-22-2023 ambulatory MD Sarah Nevarez Work Phone: [facility] [place] Work Phone: Start: 05-22-2023 End: 05-22-2023 Registered Recurring MD Sarah Nevarez Work Phone: [facility] [place] Work Phone: Start: 04-07-2023 End: 04-08-2023 [...] 01-21-2023 ambulatory MD Sarah Nevarez Work Phone: [facility] [place] Work Phone: Start: 01-21-2023 End: 01-21-2023 Registered Recurring MD Sarah Nevarez Work Phone: [facility] [place] Work Phone: Start: 01-13-2023 End: 01-13-[address] DELVIS MERAZ . Facility:[facility] Start: 01-01-2023 Encounter for genera l adult medical examination without abnormal findings DR MIKE WAGNER [facility] Start: 12-31-2022 End: 01-01-[address] MIKE WAGNER Facility:[facility] Start: 12-31-2022 End: 01-01-2023 Encounter for general adult medical examination without abnormal findings DR MIKE WAGNER Facility:[facility] Start: 07-08-2022 End: 07-08-2022 Registered Recurring MD Amanda Rosario Work Phone: [facility] [place] Start: 06-16-2022 End: 06-16-[address] DELVIS MERAZ . Facility:[facility] Start: 04-09-[address] AMANDA ROSARIO Facility :[facility] Start: 06-22-2021 Chart Update Price Girard Work Phone[facility] Work Phone: Start: 06-18-2021 [facility] Dept. of D ermatology Start: 05-30-2021 Postop follow up vis it related to original px Price Girard Work Phone: FP-Djcbtxp-Lrsor Main Work Phone: Procedures Date Procedure Procedure Detail Performing Clinician Start: 12-28-2024 Urnls dip stick/tabl et rgnt non-auto w/o micrscp Delvis Kt DO Work Phone: Start: 12-27-2024 US OB CERVICAL LENGTH G eneric External Data Provider Start: 11-28-2024 Urnls dip stick/tabl et rgnt non-auto w/o micrscp Delvis Kt DO Work Phone: Start: 10-24-2024 URINARY TRACT INFECT ION (HTRX) Delvis Kt DO Work Phone: Start: 10-24-2024 Urnls dip stick/tabl et rgnt non-auto w/o micrscp Delvis Kt DO Work Phone: Start: 09-26-2024 Urnls dip stick/tabl et rgnt non-auto w/o micrscp Delvis Kt DO Work Phone: Start: 09-19-2024 MLR HEMOGLOBIN A1C Gene daivd External Data Provider Start: 08-26-2024 End: 08-26-2024 [...] Treatment Date Care Activity Detail Author Start: 01-11-2025 End: 01-11-2025 Patient encounter procedure 01/11/2025 2:00 PM EST Routine [facility] [address] [place] [address] Delvis Meraz, DO [address] [place] [address] [facility] Start: 12-28-2024 End: 12-28-2025 CBC panel - Blood by Automated count CBC Lab Routine Diabetes mellitus screening Expected: 12/28/2024 (Approximate), Expires: 12/28/2025 [facility] Work Phone: Comment on above: Expected: 12/28/2024 (Approximate), Expires: 12/28/2025 Start: 12-28-2024 End: 12-28-2025 Measurement of glucose 1 hour after glucose challenge for glucose tolerance test Glucose tolerance, 1 hour Lab Routine Diabetes mellitus screening Expected: 12/28/2024 (Approximate), Expires: 12/28/2025 [facility] Comment on above: Expected: 12/28/2024 (Approximate), Expires: 12/28/2025 Start: 12-28-2024 End: 12-28-2024 Patient encounter procedure [facility] Comment on above: Arrived Start: 12-27-2024 End: 12-27-2024 Patient encounter procedure 12/27/2024 8:40 AM EST Routine [facility] [address] [place] [id number] Delvis Meraz, DO [address] [place] [address] [facility] Start: 11-28-2024 End: 11-28-2024 Patient encounter procedure 11/28/2024 2:10 PM EST Routine [facility] [address] [place] [phone] Delvis Meraz, DO [address] [place] [address] [facility] Start: 10-24-2024 End: 10-24-2024 Patient encounter procedure 10/24/2024 2:10 PM EST Routine [facility] [address] [place] [address] Delvis Meraz, DO [address] [place] [address] [facility] Start: 10-24-2024 End: 10-24-2025 Alpha fetoprotein, maternal Alpha fetoprotein, maternal Lab Routine Second trimester 16 weeks gestation of Expected: 10/24/2024 (Approximate), Expires: 10/24/2025 [facility] Comment on above: Expected: 10/24/2024 (Approximate), Expires: 10/24/2025 Start: 10-24-2024 End: 10-24-2025 US for US OB ANATOMY SINGLE W US OB CERVICAL LENGTH Imaging Routine Screening, , for anatomic survey Expected: 10/24/2024 (Approximate), Expires: 10/24/2025 [facility] Comment on above: Expected: 10/24/2024 (Approximate), Expires: 10/24/2025 Start: 09-26-2024 End: 09-26-2024 Patient encounter procedure 09/26/2024 2:20 PM EST Routine [facility] [address] [place] [phone] Delvis Meraz DO [address] [place] [address] [facility] Start: 08-26-2024 End: 08-26-2025 ABO/Rh ABO/Rh Lab Routine Missed menses , unspecified gestational age Expected: 08/26/2024 (Approximate), Expires: 08/26/2025 [facility] Comment on above: Expected: 08/26/2024 (Approximate), Expires: 08/26/2025 Start: 08-26-2024 End: 08-26-2025 Blood type and Indirect antibody screen panel - Blood Type and screen Lab Routine Missed menses , unspecified gestational age Expected: 08/26/2024 (Approximate), Expires: 08/26/2025 [facility] Work Phone: Comment on above: Expected: 08/26/2024 (Approximate), Expires: 08/26/2025 Start: 08-26-2024 End: 08-26-2025 Drugs of abuse panel - Urine by Screen method Rapid drug screen, urine Lab Routine , unspecified gestational age Encounter for supervision of normal first in first trimester Expected: 08/26/2024 (Approximate), Expires: 08/26/2025 [facility] Comment on above: Expected: 08/26/2024 (Approximate), Expires: 08/26/2025 Start: 08-26-2024 End: 08-26-2025 US Pelvis transvaginal US OB transvaginal Imaging Routine Missed menses Expected: 08/26/2024 (Approximate), Expires: 08/26/2025 [facility] Comment on above: Expected: 08/26/2024 (Approximate), Expires: 08/26/2025 Start: 08-26-2024 End: 08-26-2024 ambulatory 08/26/2024 10:00 AM EDT Initial [facility] [address] [place] [address] [facility] Start: 08-26-2024 End: 08-26-2024 Professional / ancillary services management 08/26/2024 9:30 AM EDT Ancillary Procedure [facility] [address] [place] [address] [facility] Start: 08-23-2024 End: 08-23-2024 Patient encounter procedure 08/23/2024 10:50 AM EDT Routine [facility] [address] [place] [phone] Delvis Meraz, DO [address] [place] [address] Arrived [facility] Comment on above: Arrived Start: 07-24-2024 Influenza vaccination Influenz a Vaccine (#1) [facility] Start: 05-23-2022 [facility] Start: 04-25-2022 [facility] Start: 03-28-2022 [facility] Start: 02-28-2022 [facility] Start: 01-31-2022 [facility] Start: 01-28-2022 [facility] Start: 12-31-2021 [facility] Start: 12-24-2021 [facility] Start: 11-29-2021 [facility] Start: 11-01-2021 [facility] Start: 10-28-2021 [facility] Start: 10-02-2021 End: 10-03-2021 [facility] Start: 09-06-2021 [facility] Start: 09-03-2021 [facility] Start: 08-08-2021 [facility] Start: 07-11-2021 [facility] Adrenocorticotropic hormone measurement [facility] Bacteria identified in Urine by Culture Urine culture Microbiology Routine Missed menses Ordered: 08/26/2024 [facility] Comment on above: Ordered: 08/26/2024 Bacteria identified in Urine by Culture Urine culture Microbiology Routine Hematuria, unspecified type Ordered: 10/24/2024 [facility] Comment on above: Ordered: 10/24/2024 Bacteria identified in Urine by Culture Urine culture Microbiology Routine Urinary tract infection without hematuria, site unspecified Ordered: 12/28/2024 [facility] Comment on above: Ordered: 12/28/2024 CBC W Auto Different ial panel - Blood CBC and differential Lab Routine Missed menses , unspecified gestational age Ordered: 08/26/2024 [facility] Comment on above: Ordered: 08/26/2024 CHLAMYDIA TRACHOMATI S (GENITO/STI) CHLAMYDIA TRACHOMATIS (GENITO/STI) Lab Routine STD exposure Ordered: 10/24/2024 [facility] Comment on above: Ordered: 10/24/2024 Comprehensive metabo lic 1999 panel - Serum or Plasma [facility] Work Phone: Comprehensive metabo lic 1999 panel - Serum or Plasma [facility] Comprehensive metabo lic 1999 panel - Serum or Plasma [facility] Comprehensive metabo lic 1999 panel - Serum or Plasma [facility] CT Abdomen and Pelvi s W contrast IV [facility] Work Phone: CT Abdomen and Pelvi s W contrast IV [facility] CT Abdomen and Pelvi s W contrast IV [facility] CT Chest W contrast IV [facility] Work Phone: CT Chest W contrast IV [facility] CT Chest W contrast IV [facility] Ferritin [Mass/volum e] in Serum or Plasma [facility] Work Phone: Hemoglobin A1c/Hemoglobin.total in Blood Hemoglobin A1c Lab Routine Missed menses , unspecified gestational age Ordered: 08/26/2024 [facility] Comment on above: Ordered: 08/26/2024 Hepatitis B virus blevins rface Ag [Presence] in Serum or Plasma by Immunoassay Hepatitis B surface antigen Lab Routine Missed menses , unspecified gestational age Ordered: 08/26/2024 [facility] Comment on above: Ordered: 08/26/2024 Hepatitis C virus Ab [Presence] in Serum or Plasma by Immunoassay Hepatitis C antibody Lab Routine Missed menses , unspecified gestational age Ordered: 08/26/2024 [facility] Comment on above: Ordered: 08/26/2024 HIV-1/HIV-2 antigen/ antibody combination immunoassay HIV-1 and HIV-2 antibodies Lab Routine Missed menses , unspecified gestational age Ordered: 08/26/2024 [facility] Comment on above: Ordered: 08/26/2024 Lactate dehydrogenas e [Enzymatic activity/volume] in Unspecified specimen [facility] Work Phone: Neisseria gonorrhoea e DNA [Presence] in Unspecified specimen by PARMINDER with probe detection Neisseria gonorrhea DNA probe, direct Lab Routine STD exposure Ordered: 10/24/2024 [facility] Comment on above: Ordered: 10/24/2024 Reagin Ab [Presence] in Serum by RPR RPR Lab Routine Missed menses , unspecified gestational age Ordered: 08/26/2024 [facility] Comment on above: Ordered: 08/26/2024 Rubella antibody, IgG Rubella an tibody, IgG Lab Routine Missed menses , unspecified gestational age Ordered: 08/26/2024 [facility] Comment on above: Ordered: 08/26/2024 SURESWAB(R) ADVANCED VAGINITIS PLUS, TMA SURESWAB(R) ADVANCED VAGINITIS PLUS, TMA Pathology and Cytology Routine Vaginal discharge Ordered: 10/24/2024 [facility] Work Phone: Comment on above: Ordered: 10/24/2024 Thyrotropin [Units/v olume] in Serum or Plasma [facility] Thyroxine (T4) free [Mass/volume] in Serum or Plasma [facility] Triiodothyronine (T3 ) Free [Mass/volume] in Serum or Plasma [facility] Extremity [facility] Work Phone: [facility] Immunizations Immunization Date Immunization Notes Care Provider [facility] 07-09-2018 influenza virus vaccine, unspecified formulation Generic Provider [facility] 1995 pneumococcal conjuga te vaccine, 7 valent [facility] 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 Payers Date Payer Category Payer Unknown [id number] 2022 [facility] 1.2.8 [id number] 2022 Unknown 2021 Self-pay [id number] 2021 Unknown [id number] 2021 Unknown [id number] 2019 Unknown [id number] 1997 Unknown [id number] 2.16.84 0.1.817168.3.579.2.593 1997 Unknown [id number] 2.16.84 0.1.052862.3.579.2.593 1997 Unknown [id number] 2.16.84 0.1.710303.3.579.2.593 1997 Unknown [id number] 2.16.84 0.1.648090.3.579.2.593 1997 Unknown [id number] 2.16.84 0.1.406290.3.579.2.593 1997 Unknown [id number] 2.16.84 0.1.455249.3.579.2.593 1997 Unknown [id number] 2.16.84 0.1.642776.3.579.2.593 1997 Unknown [id number] 2.16.84 0.1.049763.3.579.2.593 1997 Unknown [id number] 2.16.84 0.1.874712.3.579.2.593 1997 Unknown [id number] 2.16.84 0.1.157773.3.579.2.593 1997 Unknown [id number] 2.16.84 0.1.878857.3.579.2.1258 1997 Unknown [id number] 2.16.84 0.1.247207.3.579.2.1258 1997 Unknown [id number] 2.16.84 0.1.693723.3.579.2.1258 1997 Unknown [id number] 2.16.84 0.1.153923.3.579.2.9 1997 Unknown [id number] 2.16.84 0.1.916823.3.579.2.1258 1997 Unknown [id number] 2.16.84 0.1.840263.3.579.2.1258 1997 Unknown [id number] 2.16.84 0.1.959699.3.579.2.1258 1997 Unknown [id number] 2.16.84 0.1.703047.3.579.2.1259 1959 Unknown [id number] 1959 Unknown [id number] Unknown [id number] 2.16.8 40.1.415840.3.579.2.531 Social History Date Type Detail Facility Start: 06-18-2021 Dept. 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 Start: 1995 Sex Assigned At Female [facility] Start: 07-08-2022 End: 04-10-2023 Tobacco smoking status NHIS Never smoked tobacco (finding) [facility] Start: 04-10-2023 Tobacco use and exposure Smokeless tobacco non-user [facility] Start: 02-22-2024 End: 10-11-2024 Alcoholic beverage intake [facility]-drinker (finding[facility] Start: 02-22-2024 End: 10-11-2024 History of Social function [facility] Start: 02-22-2024 End: 10-11-2024 Social connection and isolation panel [facility] Do you belong to any clubs or organizations such as pentecostalism groups, unions, fraternal or athletic groups, or [...] Desired Activity /State Clinical Notes 05-14-2021 to 12-28-2024 Lorri Fernandez, ROBERTO - 12/28/2024 11:10 AM Ruben Joy, ROBERTO - 11/28/2024 2:10 PM Ruben Joy, ROBERTO - 10/24/2024 2:10 PM Sarah Wagner MD - 10/11/2024 3:09 PM EST Note Date & Type Note Facility 12-28-2024 History of Presen t illness Narrative Reason for Appointment: Patient ID: Ailyn Baron is a 29 y.o. female who presents for Routine Visit Patient presents today for Return OB appointment. MEDICATIONS Current Outpatient Medications Medication Instructions cephalexin (KEFLEX) 500 mg, Oral, 3 times daily magnesium oxide (MAG-OX) 400 mg, Daily phenazopyridine (PYRIDIUM) 100 mg, Oral, 3 times daily PRN MV-Min-Fe Fum-FA-DHA ( 1 PO) Take by [...] SYSTEMS Review of Systems: Review of Systems Constitutional: Negative. HENT: Negative. Eyes: Negative. Respiratory: Negative. Cardiovascular: Negative. Gastrointestinal: Negative. Genitourinary: Negative. Musculoskeletal: Negative. Skin: Negative. Neurological: Negative. All other systems reviewed and are negative. Hematological: Negative. Endocrine: Negative. Allergic/Immunologic: Negative. OBJECTIVE Objective: Physical Exam Constitutional: Appearance: Normal [...] nursing note reviewed. Exam conducted with a efficiency analyst present. Vitals: Estimated body mass index is 23.35 kg/m as calculated from the following: Height as of 10/11/24: 5' 9 . Weight as of this encounter: 158 lb 1.9 oz. BP: 120/74 No LMP recorded. Patient is . ASSESSMENT & PLAN ICD-10-CM 1. 25 weeks gestation of Z3A.25 POCT urinalysis dipstick manually resulted 2. Diabetes mellitus screening Z13.1 CBC Glucose tolerance, 1 hour CBC Glucose tolerance, 1 hour POCT urinalysis dipstick manually resulted 3. Urinary tract infection without hematuria, site unspecified N39.0 phenazopyridine (Pyridium) 100 MG tablet Urine culture Return OB: Patient presents today for a routine obstetrics appointment. Patient is currently 25w6d . Patient states she is doing well but has complaints of being tired due to current . Patient has verbalizes frequent movement. labor precautions was discussed/given and patient was instructed to perform kick counts three times a day. Pt was seen in ER for UTI pain and spotting. Pt was switched to Keflex, pyridium faxed to pharmacy. Urine sent for culture. Orders Placed This Encounter Procedures Urine culture CBC Glucose tolerance, 1 hour POCT urinalysis dipstick manually resulted Follow Up: Patient is to return to office in 2 week for routine OB appointment. Documented by Lorri Fernandez LPN on behalf of: Delvis Meraz DO documented in this encounter [facility] 11-28-2024 History of Presen t illness Narrative Reason for Appointment: Patient ID: Ailyn Baron is a 29 y.o. female who presents [...] nursing note reviewed. Exam conducted with a efficiency analyst present. Vitals: Estimated body mass index is [...] Delvis Meraz DO documented in this encounter [facility] 10-24-2024 History of Presen t illness Narrative Reason for Appointment: Patient ID: Ailyn Baron is a 29 y.o. female who presents [...] Onset Hypertension Father Celio Heart disease Father Ceilo Cancer Maternal Grandmother Ale Diabetes Maternal Grandfather [...] nursing note reviewed. Exam conducted with a efficiency analyst present. Vitals: Estimated body mass index is [...] 4 weeks for OB appointment. Documented by iKrsten Joy LPN on behalf of: Delvis Meraz DO documented in this encounter [facility] 10-11-2024 History of Presen t illness Narrative [...] were not included. Subjective Patient ID: Ailyn Baron is a 29 y.o. female who presents [...] 300 MG capsule documented in this encounter [facility] 09-26-2024 History of Presen t illness Narrative Reason for Appointment: Patient ID: Ailyn Baron is a 29 y.o. female who presents [...] nursing note reviewed. Exam conducted with a efficiency analyst present. Vitals: Estimated body mass index is [...] or undercooked meat, and stay away from [facility]. Patient has been consulted regarding any [...] Amanda Gonzalez PA-C documented in this encounter [facility] 08-26-2024 History of Presen t illness Narrative Reason for Appointment: Patient ID: Ailyn Baron is a 29 y.o. female who presents [...] or undercooked meat, and stay away from [facility]. Patient has also been advised to [...] by: Jasmyne Segura documented in this encounter [facility] 05-23-2023 Progress note Note Date/Time May 22, 2023 9:03am [facility] [place] [id number] Hem/Onc Follow Up Note - OP Signed Patient: Ailyn Baron MR#: [id number] : 1995 Acct:[id number] Age/Sex: 27 / F Type: REG RCR [...] of restaging CT CAP by phone with CORE WORKER in October--no evidence of recurrence. Saw dermatology [...] dyspepsia. We will coordinate parenteral iron at [facility] per her request. Normal thyroid, cortisol,and [...] trauma. She was seen by dermatology at [facility] in [place] and underwent a biopsy of the right [...] 3. Venofer for iron deficiency anemia at [facility] 03/2022 ROS Details: All systems reviewed [...] infusion reaction in February 2022. [facility] - History Attestation statement: The following [...] DAILY PRN Anxiety 06/18/21 [History Confirmed 05/22/23] SLI-rcdx-HA-omega 3-fat com #1 27 mg-1 mg-300 mg [...] Creatinine Clear 154.92, Sodium 136, Potassium 4.2, Lbrusais374, Carbon Dioxide 26.1, Anion Gap 10.1, BUN [...] % (Auto) 79.8, Lymph % (Auto) 12.8, Villalba % (Auto) 6.4, Eos % (Auto) 0.6, Baso % (Auto) 0.4, Nucleat RBC Rel Count 0.2, Neut # (Auto) 8.2 H, Lymph # (Auto) 1.3, Villalba # (Auto) 0.7, Eos # (Auto) 0.1, [...] 4% with ferritin 7. Coordinated Venofer infusionsat [facility] (300mg IV x 3 doses) 03/2022 with followup CBC, serum iron profile, and ferritin in one month. Consider GI evaluation for iron deficiency. 07/09/2022: She is doing well on oral iron recommended by her city detective. She does not plan to have children anytime soon, but discussed with her city detective the best iron supplementation to be on [...] for coordination of care (as documented) and avgk-xe-qgxb counseling of patient and/or family. Dictated By: Amanda Rosario MD DD/ 0902 Signed By: <Electronically signed by MD Amanda Rosario> 05/23/23 2789 [facility] Work Phone: 1(483) 778-777003-01-2023 Progress note Author Amanda Rosario [facility] January 21, 2023 8:51pm Note Date/Time January 21, 2023 3:01 pm [facility] [place] [address] Hem/Onc Follow Up Note - OP Signed Patient: Ailyn Baron MR#: [id number] : 1995 Acct:[id number] Age/Sex: 27 / F Type: REG RCR Copies to: MD Mike Ewing MD~ Subjective Date/Time of Service: Date of Service: 01/21/2023 Time of Service: 15:00 Chief Complaint: Patient is here today for a 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 No new concerns HPI: 01/21/2023: Ailyn had review of restaging CT CAP by phone with CORE WORKER in October--no evidence of recurrence. Saw dermatology [...] dyspepsia. We will coordinate parenteral iron at [facility] per her request. Normal thyroid, cortisol,and [...] trauma. She was seen by dermatology at [facility] in [place] and underwent a biopsy of the right [...] 3. Venofer for iron deficiency anemia at [facility] 03/2022 ROS Details: All systems reviewed [...] infusion reaction in February 2022. [facility] - History Attestation statement: The following [...] DAILY PRN Anxiety 06/18/21 [History Confirmed 01/21/23] AIZ-klrh-LH-omega 3-fat com #1 27 mg-1 mg-300 mg [...] to the prior study. Impression dictated by: Roni Pantoja Jr.ODavid01/09/2023 12:04 PM Assessment and Plan - TNM [...] 4% with ferritin 7. Coordinated Venofer infusionsat [facility] (300mg IV x 3 doses) 03/2022 with followup CBC, serum iron profile, and ferritin in one month. Consider GI evaluation for iron deficiency. 07/09/2022: She is doing well on oral iron recommended by her city detective. She does not plan to have children anytime soon, but discussed with her city detective the best iron supplementation to be on [...] for coordination of care (as documented) and yxep-bk-ihvx counseling of patient and/or family. Dictated By: Amanda Rosario MD DD/ 1500 Signed By: <Electronically signed by MD Amanda Rosario> 01/21/232050 [facility] Work Phone: 1(319) 240-954208-17-2022 Progress note Author Ale Malone [facility] July 09, 2022 1:35pm Note Date/Time July 08, 2022 1: 31pm [facility] [place] [address] Hem/Onc Follow Up Note - OP Signed with Addenda Patient: Ailyn Baron MR#: [id number] : 1995 Acct:[id number] Age/Sex: 27 / F Type: REG RCR [...] dyspepsia. We will coordinate parenteral iron at [facility] per her request. Normal thyroid, cortisol,and [...] trauma. She was seen by dermatology at [facility] in [place] and underwent a biopsy of the right [...] % (Auto) 61.2, Lymph % (Auto) 26.6, Villalba % (Auto) 9.7, Eos % (Auto) 1.2, Baso % (Auto) 1.3, Neut # (Auto) 3.4, Lymph # (Auto) 1.5, Villalba # (Auto) 0.5, Eos# (Auto) 0.1, Baso [...] ferritin 7. Will have Venofer infusions at [facility] (300mg IV x 3 doses) with followup CBC, serum iron profile,and ferritin in one month. Consider GI evaluation for iron deficiency. 07/09/2022: She is doing well on oral iron recommended by her city detective. She does not plan to have children anytime soon, but discussed with her city detective the best iron supplementation to be on [...] for coordination of care (as documented) and tfce-fo-demn counseling of patient and/or family. Dictated By: Ale Malone APRN DD/ 1331 Signed By: <Electronically signed by KIKI Malone> 07/09/22 0958 [facility] Work Phone: 1(270) 419-130305-12-2022 Progress note Author Amanda Rosario [facility] April 03, 2022 8:56pm Note Date/Time April 02, 2022 8:30p m [facility] [address] [address] Hem/Onc Follow Up Note - OP Signed Patient: Ailyn Baron MR#: [id number] : 1995 Acct:[id number] Age/Sex: 26 / F Type: REG RCR [...] dyspepsia. We will coordinate parenteral iron at [facility] per her request. Normal thyroid, cortisol,and [...] trauma. She was seen by dermatology at [facility] in [place] and underwent a biopsy of the right [...] Creatinine Clear 115.14, Sodium 136, Potassium 4.1, Lulbflbz696, Carbon Dioxide 24.5, BUN 9, Creatinine 0.76, [...] % (Auto) 46.7, Lymph % (Auto) 30.6, Villalba % (Auto) 20.8, Eos % (Auto) 0.9, Baso % (Auto) 1.0, Neut # (Auto) 1.6 L, Lymph # (Auto) 1.1, Villalba # (Auto) 0.7, Eos # (Auto) 0.0, [...] ferritin 7. Will have Venofer infusions at [facility] (300mg IV x 3 doses) with [...] for coordination of care (as documented) and euhd-is-fjxh counseling of patient and/or family. Dictated By: Amanda Rosario MD DD/ 28 Signed By: <Electronically signed by MD Amanda Rosario> 04/03/222055 [facility] Work Phone: 1(523) 127-800602-23-2022 Progress note Author Amanda Rosario [facility] January 15, 2022 9:15pm Note Date/Time January 15, 2022 11:55am [facility] [place] [address] Hem/Onc Follow Up Note - OP Signed Patient: Ailyn Kang MR#: [id number] : 1995 Acct:[id number] Age/Sex: 26 / F Type: REG RCR [...] trauma. She was seen by dermatology at [facility] in [place] and underwent a biopsy of the right [...] History (Last Reviewed 01/15/22 @ 21:07 by mAanda Rosario MD) H/O melanoma excision right calf [...] for coordination of care (as documented) and bwtm-fk-wrrg counseling of patient and/or family. Dictated By: Amanda Rosario MD DD/ 1155 Signed By: <Electronically signed by MD Amanda Rosario> 01/15/22 1068 [facility] Work Phone: 1(764) 796-406811-11-2021 Progress note Author Denia Alvares [facility] October 03, 2021 10:47am Note Date/Time October 03, 2021 10:34am [facility] [place] [address] Hem/Onc Follow Up Note - OP Signed Patient: Ailyn Kang MR#: [id number] : 1995 Acct:[id number] Age/Sex: 26 / F Type: REG RCR [...] trauma. She was seen by dermatology at [facility] in [place] and underwent a biopsy of the right [...] environmental allergies and food allergies. [facility] - Medical History Medical History: Medical [...] Creatinine Clear 112.19, Sodium 139, Potassium 4.1, Jahuegic293, Carbon Dioxide 26.4, BUN 9, Creatinine 0.78, [...] % (Auto) 66.7, Lymph % (Auto) 23.1, Villalba % (Auto) 8.3, Eos % (Auto) 1.0, Baso % (Auto) 0.9, Neut # (Auto) 5.0, Lymph # (Auto) 1.7, Villalba # (Auto) 0.6, Eos# (Auto) 0.1, Baso [...] for coordination of care (as documented) and fsrv-ls-itvw counseling of patient and/or family. Dictated By: Denia Alvares APRN DD/ 1025 Signed By: <Electronically signed by KIKI Alvares> 10/03/21 1046 [facility] Work Phone: 1([phone]) 621-221008-27-2021 Progress note Author Amanda Rosario [facility] July 19, 2021 12:54pm Note Date/Time July 18, 2021 2: 10pm [facility] [place] [address] Hem/Onc Follow Up Note - OP Signed Patient: Ailyn Kang MR#: [id number] : 1995 Acct:[id number] Age/Sex: 26 / F Type: REG RCR [...] trauma. She was seen by dermatology at [facility] in [place] and underwent a biopsy of the right posterior leg on 04/23/21 showing an ulcerated melanoma, superficial spreading type, Breslow: at least 3.4 mm, invasive melanoma present on the deep and peripheral margins. She was referred to Dr. 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. 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 Dictated By: Amanda Rosario MD DD/ 1409 Signed By: <Electronically signed by MD Amanda Rosario> 07/19/21 1788 [facility] Work Phone: 1(263) 563-264308-03-2021 Consult note Author Amanda Rosario [facility] June 24, 2021 10:09pm Note Date/Time June 24, 2021 2:1 8pm [facility] [place] [address] Hem/Onc Consult Note - OP Signed Patient: Ailyn Kang MR#: [id number] : 1995 Acct:[id number] Age/Sex: 26 / F Type: REG RCR [...] trauma. 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 Note Recipients: Price Girard MD - [id number] [] Bettina Madera PAC - [phone] [] Attestation: Note Completion: Attending AttestationI performed the procedure without a resident Electronic Signatures: Sarah Nevarez) (Signed 17-May-2021 18:18) Authored: Post-Operative Note, Chart Review, Note Completion Last Updated: 17-May-2021 18:18 by Sarah Nevarez)[facility] 05-17-2021 History of Present illness [id number]-xfm woman who underwent wide excision right posterior calf melanoma with [place] Cost[place] flap reconstruction as well as right inguinal and iliac sentinel lymph node biopsy on 05/17/2021. Pathology report has not yet resulted. She is recovering well.[facility] Main Work Phone: 1(190) [phone] History of Present illness Narrative 25-year-old woman who underwent wide excision right posterior calf melanoma with [place]e flap reconstruction as well as right inguinal and iliac sentinel lymph node biopsy on 05/17/2021. Pathology report has not yet resulted. She is recovering well.[facility] Work Phone: 1(454) [phone] NoteHistory & Physical Reviewed: /Lactating: Are You [...] Patient Profile - Preop v2 17-May-2021 09:27[facility]06-22-2021 NoteAccession #: [id number] Pathologist: ANUJA OLIVO MD Date of Procedure: 05/14/2021 Date Received: 05/14/2021 Submitting Physician: SARAH NEVAREZ MD Location: [facility] Copy To/Referring/Attending: ROLY EDGE DO FINAL DIAGNOSIS 2 SLIDES, [facility] #[id number] (BX: 04/23/2021) SKIN, RT POST LEG, SHAVE [...] MD. CANCER SUMMARY REPORT A. 2 SLIDES, [facility] #[id number] (BX: 04/23/2021): SPECIMEN Procedure: Biopsy, shave Specimen [...] report. Primary Tumor (pT): pT3b ADDITIONAL TESTING INTELLIGENCE ANALYST BLOCKS: Tumor Block: CSPL slide [id number] Electronically Signed Out By ANUJA OLIVO MD/BEBETO Microscopic Description: Microscopic examination performed. Clinical History: SHAVE/ BCC VS MM VS PG 1.9 X 1.9CM Specimens Submitted As: A: 2 SLIDES, [facility] #[id number] (BX: 04/23/2021) Gross Description: Received for consultation from [facility] are two slides labeled [id number] (BX: 04/23/2021) along with the corresponding pathology report. Slide/Block Description 2 SLIDES, [id number]. Keep Slides: N Slides Returned: N Personal [facility] on above:Performed By: #### D #### DermatopathologyEvaluation noteN/ADept. 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 Evaluation note* Diagnosis Onset Date Resolution Status Iron deficiency anemia acute Chiari malformation type I c hronic Edema of right lower extremity chronic Encounter for antineoplastic immunotherapy chronic Malignant melanoma of right lower leg chronic [facility] Work Phone: Evaluation note* Diagnosis Onset Date Resolution Status Chiari malformation type I c hronic Edema of right lower extremity chronic Encounter for antineoplastic immunotherapy chronic Iron deficiency anemia chron ic Malignant melanoma of right lower leg chronic [facility] Work Phone: Evaluation noteNo assessment information available [facility] Work Phone: Evaluation note* Diagnosis Missed menses [...] weeks gestation of documented in this encounter [facility] HealthcareEvaluation note* Diagnosis Acute non-recurrent pansinusitis- Primary Second trimester state, incidental Malignant melanoma of right lower limb, including hip (CMS/HCC) Second trimester state, incidental 16 weeks gestation of Vaginal discharge Leukorrhea, not specified as infective STD exposure Screening, , for anatomic survey Encounter for anatomic survey Hematuria, unspecified type documented in this encounter [facility] HealthcareEvaluation note* Diagnosis Acute non-recurrent pansinusitis- Primary Second trimester state, incidental Malignant melanoma of right lower limb, including hip (CMS/HCC) documented in this encounter [facility] HealthcareEvaluation note* Diagnosis Acute non-recurrent pansinusitis- Primary Second trimester state, incidental Malignant melanoma of right lower limb, including hip (CMS/HCC) Second trimester state, incidental 21 weeks gestation of documented in this encounter [facility] HealthcareEvaluation note* Diagnosis Acute non-recurrent pansinusitis- Primary Second trimester state, incidental Malignant melanoma of right lower limb, including hip (CMS/HCC) 25 weeks gestation of Diabetes mellitus screening Screening for diabetes mellitus Urinary tract infection without hematuria, site unspecified documented in this encounter [facility] HealthcareHospital Discharge instructionsAmbulatory Orders* RISE Order Time Frame: 1 Day, Location: Determined By Patient * Survivourship Follow Up Time Frame: 3 Months, Location: Determined By Patient [facility] Work Phone: Progress note Author Ale Malone [facility] July 09, 2022 1:35pm Note Date/Time July 08, 2022 1: 31pm [facility] [place] [address] Hem/Onc Follow Up Note - OP Signed with Pernellenda Patient: Ailyn Baron MR#: [id number] : 1995 Acct:[id number] Age/Sex: 27 / F Type: REG RCR [...] dyspepsia. We will coordinate parenteral iron at [facility] per her request. Normal thyroid, cortisol,and [...] trauma. She was seen by dermatology at [facility] in [place] and underwent a biopsy of the right [...] % (Auto) 61.2, Lymph % (Auto) 26.6, Villalba % (Auto) 9.7, Eos % (Auto) 1.2, Baso % (Auto) 1.3, Neut # (Auto) 3.4, Lymph # (Auto) 1.5, Villalba # (Auto) 0.5, Eos# (Auto) 0.1, Baso [...] ferritin 7. Will have Venofer infusions at [facility] (300mg IV x 3 doses) with followup CBC, serum iron profile,and ferritin in one month. Consider GI evaluation for iron deficiency. 07/09/2022: She is doing well on oral iron recommended by her city detective. She does not plan to have children anytime soon, but discussed with her city detective the best iron supplementation to be on [...] for coordination of care (as documented) and [id number]-he-[id number] counseling of patient and/or family. Dictated By: Ale Malone APRN DD/ [id number] Signed By: <Electronically signed by KIKI Malone> 07/09/22 0958 [facility] Work Phone: Progress note Author Amanda Rosario [facility] January 21, 2023 8:51pm Note Date/Time January 21, 2023 3:01 pm [facility] [place] [address] Hem/Onc Follow Up Note - OP Signed Patient: Ailyn Baron MR#: [id number] : 1995 Acct:[id number] Age/Sex: 27 / F Type: REG RCR Copies to: MD Mike Ewing MD~ Subjective Date/Time of Service: Date of Service: 01/21/2023 Time of Service: 15:00 Chief Complaint: Patient is here today for a 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 No new concerns HPI: 01/21/2023: Ailyn had review of restaging CT CAP by phone with CORE WORKER in October--no evidence of recurrence. Saw dermatology [...] dyspepsia. We will coordinate parenteral iron at [facility] per her request. Normal thyroid, cortisol,and [...] trauma. She was seen by dermatology at [facility] in [place] and underwent a biopsy of the right [...] 3. Venofer for iron deficiency anemia at [facility] 03/2022 ROS Details: All systems reviewed [...] DAILY PRN Anxiety 06/18/21 [History Confirmed 01/21/23] [id number] 3-fat com #1 27 mg-1 mg-300 mg [...] 4% with ferritin 7. Coordinated Venofer infusionsat [facility] (300mg IV x 3 doses) 03/2022 with followup CBC, serum iron profile, and ferritin in one month. Consider GI evaluation for iron deficiency. 07/09/2022: She is doing well on oral iron recommended by her city detective. She does not plan to have children anytime soon, but discussed with her city detective the best iron supplementation to be on [...] for coordination of care (as documented) and [id number] counseling of patient and/or family. Dictated By: Amanda Rosario MD DD/ 1500 Signed By: <Electronically signed by MD Amanda Rosario> 01/21/232050 [facility] Work Phone: Reason for referral (narrative)* Name [...] section and content) DATE CREATED AUTHOR 05/31/2021 [facility] DATE CREATED AUTHOR AUTHOR'S ORGANIZ ATION 06/18/2021 [facility] DATE CREATED AUTHOR AUTHOR'S ORGANIZ ATION 08/01/2021 [facility] DATE CREATED AUTHOR AUTHOR'S ORGANIZ ATION 01/18/2022 [facility] DATE CREATED AUTHOR AUTHOR'S ORGANIZ ATION 04/08/2023 [facility] DATE CREATED AUTHOR AUTHOR'S ORGANIZ ATION 09/25/2024 [facility] DATE CREATED AUTHOR AUTHOR'S ORGANIZ ATION 12/30/2024 [facility] EPIC Care Teams (unrecognized sec tion and content) Team Status: Active Member Role Status Dates Mike Wagner MD Primary Care Provider Active Team Status: Active Member Role Status Dates Amanda Rosario MD Attending Provider Active Sarah Nevarez MD Referring Provider Active Mike Wagner MD Primary Care Provider Active [employer] Server Relationship Specialty Start Date End Date Mike Wagner MD [address] [place] [address] PCP - General Family Medicine 02/09/24 Shaikh Melendrez MD [address] [place] [address] PCP - [place] [facility] 08/23/23 [employer] Server Relationship Specialty Start Date End Date Mike Wagner MD [address] [place] [address] PCP - General Family Medicine 02/09/24 Shaikh Melendrez MD [address] [place] [address] PCP - [place] [facility] 08/23/23 [employer] Server Relationship Specialty Start Date End Date Mike Wagner MD [address] [place] [address] PCP - General Family Medicine 02/09/24 Shaikh Melendrez MD [address] [place] [address] PCP - [place] [facility] 08/23/23 [employer] Server Relationship Specialty Start Date End Date Mike Wagner MD [address] [place] [address] PCP - General Family Medicine 02/09/24 Melissa Zhou NP [address] [place] [address] PCP - [place] [facility] 08/23/24 [employer] Relationship Specialty Start Date End Date Mike Wagner MD [address] [place] [address] PCP - General Family Medicine 02/09/24 Melissa Zhou NP [address] [place] [address] PCP - [facility] 08/23/24 [employer] Server Relationship Specialty Start Date End Date Mike Wagner MD [address] [place] [address] PCP - General Family Medicine 02/09/24 Melissa Zhou NP [address] [place] [address] PCP - [facility] 08/23/24 [employer] Server Relationship Specialty Start Date End Date Mike Wagner MD [address] [place] [address] PCP - General Family Medicine 02/09/24 Melissa Zhou NP [address] [place] [address] PCP - [facility] 08/23/24 [employer] Server Relationship Specialty Start Date End Date Mike Wagner MD [address] [place] [address] PCP - General Family Medicine 02/09/24 Melissa Zhou NP [address] [place] [address] PCP - [facility] 08/23/24 [employer] Server Relationship Specialty Start Date End Date Mike Wagner MD [address] [place] [address] PCP - [facility] 02/09/24 Shaikh Melendrez MD [address] [place] [address] PCP [facility] 08/23/23 Kitchen Food Server Relationship Specialty Start Date End Date Mike Wagner MD [address] [place] [address] PCP [facility] 02/09/24 Melissa Zhou NP [address] [place] [phone] [facility] 08/23/24 Kitchen Food Server Relationship Specialty Start Date End Date Mike Wagner MD [address] [place] [address] PCP [facility] 02/09/24 Goals (unrecognized section and content) Goals may [...] BE BASED ON THE PRIMARY CLINICAL RECORDS. [facility]. provides no warranty or guarantee of the accuracy or completeness of information in this document.
[2025-01-09 08:42] LABS: Glucose 1 Hour 97 mg/dL (<130)
[2025-01-09 09:01] LABS: Basophils Absolute Auto 0.1 10^3/uL (0.0-0.1); Basophils Percent Auto 0.4 % (0.2-2.0); Eosinophils Absolute Auto 0.1 10^3/uL (0.0-0.7); Eosinophils Percent Auto 0.5 % (0.9-7.0); Hematocrit 30.2 % (36.0-48.0); Immature Granulocytes Abs Auto 0.16 10^3/uL (0.00-0.03); Immature Granulocytes Pct Auto 1.4 % (0.0-0.5); Lymphocytes Absolute Auto 1.5 10^3/uL (1.2-3.8); Lymphocytes Percent Auto 13.1 % (20.5-60.0); Mean Corpuscular HGB Conc 33.1 g/dL (29.9-35.2); Mean Corpuscular Hemoglobin 30.4 pg (26.7-34.0); Mean Corpuscular Volume 91.8 fL (81.0-99.0); Mean Platelet Volume 9.3 fL (9.5-13.5); Monocytes Absolute Auto 0.6 10^3/uL (0.3-0.8); Monocytes Percent Auto 5.3 % (1.7-12.0); Neutrophils Percent Auto 79.3 % (43.0-75.0); Platelet Count 285 10^3/uL (150-450); Red Blood Count 3.29 10^6/uL (4.20-5.40); White Blood Count 11.3 10^3/uL (4.0-11.0)
== END 2025-01-09 07:53 | disposition home or self-care (01) ==
LOC: LAB 07:52
PROVIDERS: PCP Family Medicine; Visit Provider Obstetrics & Gynecology
DX: Z13.1 Encounter for screening for diabetes mellitus (principal)
CPT/HCPCS: 36415; 82950; 85025

== ENCOUNTER 2025-02-10 15:41 | Outpatient (OUT) | payer BC, SELFPAY ==
[2025-02-10 16:03] LABS: Basophils Percent Auto 0.3 % (0.2-2.0); Eosinophils Absolute Auto 0.1 10^3/uL (0.0-0.7); Eosinophils Percent Auto 0.8 % (0.9-7.0); Hematocrit 30.5 % (36.0-48.0); Hemoglobin 10.2 g/dL (12.0-16.0); Immature Granulocytes Abs Auto 0.16 10^3/uL (0.00-0.03); Immature Granulocytes Pct Auto 1.5 % (0.0-0.5); Lymphocytes Absolute Auto 1.3 10^3/uL (1.2-3.8); Lymphocytes Percent Auto 12.6 % (20.5-60.0); Mean Corpuscular HGB Conc 33.4 g/dL (29.9-35.2); Mean Corpuscular Hemoglobin 29.4 pg (26.7-34.0); Mean Corpuscular Volume 87.9 fL (81.0-99.0); Mean Platelet Volume 9.6 fL (9.5-13.5); Monocytes Absolute Auto 0.8 10^3/uL (0.3-0.8); Monocytes Percent Auto 7.2 % (1.7-12.0); Neutrophils Percent Auto 77.6 % (43.0-75.0); Platelet Count 290 10^3/uL (150-450); Red Blood Count 3.47 10^6/uL (4.20-5.40); Red Cell Distribution Width 13.4 % (11.0-15.0); White Blood Count 10.4 10^3/uL (4.0-11.0)
== END 2025-02-10 15:42 | disposition home or self-care (01) ==
LOC: LAB 15:41
PROVIDERS: PCP Family Medicine; Visit Provider Obstetrics & Gynecology
DX: D64.9 Anemia, unspecified (principal)
CPT/HCPCS: 36415; 85025

== ENCOUNTER 2025-03-04 10:06 | Outpatient (OUT) | payer BC, SELFPAY ==
--- NOTE | 2025-03-04 | US_ITS ---
The [address] [address] Patient Name: BRADY BARON MRN: [id number] date: 1995 Sex: F Assigned Patient Location: US Current Patient Location: Accession/Order Number: [id number] Exam Date: 03/06/2025 08:50 Report Date: 03/06/2025 08:54 At the request of: CRUZ JOHNSON DO Procedure: US OB follow up ULTRASOUND OB FOLLOW-UP COMPARISON: 12/15/2024 and 12/27/2024 CLINICAL DATA: Follow-up abnormalities on anatomy survey There is a single live intrauterine gestation in cephalic presentation. There is cardiac activity with heart rate of 138 bpm. Amniotic fluid volume is subjectively normal. Both kidneys are visualized and there is still bilateral pelviectasis. The stomach is visualized and shows no obvious abnormality. The intraluminal echoes seen previously are not identified today. US/US OB follow up IMPRESSION: CONTINUED BILATERAL PELVIECTASIS. NO RESIDUAL INTRALUMINAL ABNORMALITY IDENTIFIED WITHIN THE STOMACH. Impression dictated by: Lorri Barros M.D.03/06/2025 8:54 AM Dictation Location: [place] [address] Electronically authenticated by: [id number] Date: 03/06/2025 08:54
--- OUTSIDE RECORDS SUMMARY | 2025-03-04 10:09 | XMS_ITS | CCD ---
Author Organization [facility] Care Team Providers Care [employer] Worker Name Role Phone Price Girard Unavailable Unavailable Unavailable Essence Blevins Unavailable Unavailable MD Amanda Rosario Attending Provider [phone] MD Sarah Nevarez Referring Provider [phone] MD Mike Wagner Primary Care Provider MD [...] Unavailable NADERECayden, DR MIKE Bolaños Consulting Unavailable NADSMHUEL, DR MIKE Bolaños Attending Unavailable NADERECayden, DR [...] Provider MD Mike Wagner Primary Care Provider [phone] Mike Wagner MD Primary Care Provider [phone] Aneesh NOE, Flores Unavailable Amanda Rosario Attending Unavailable Amanda Rosario Admitting Unavailable Sarah Nevarez Referring Unavailable Mike Wagner Primary Care Unavailable Abelardo VELOCITY SHOOTER, Melissa Unavailable KT, DELVIS Attending Unavailable KT, DELVIS Attending Unavailable KT, DELVIS Attending Unavailable AMANDA FRAGOSO Attending Unavailable KT, DELVIS Attending Unavailable KT, DELVIS Attending Unavailable MIKE WAGNER Attending Unavailable KT, DELVIS Attending Unavailable KT, DELVIS Attending Unavailable Allergies Allergy Classification Reported Allergen(s) [...] Daily August 19, 2023 12:00am Magnesium Oxide (20 sources) magnesium oxide (Mag-Ox) 400 mg tablet 400 mg Daily Active Multiple Vitamin (multivitamin) tablet (3 sources) take 1 tablet by mouth once daily Multiple Vitamin (multivitamin) tablet Take 1 tablet by mouth Daily Active Nbr-Gulq-Ad-[place] 3-Fat Com #1 (Pre-Jeanette Multivitamins/Min erals) 27-1-300 mg Capsule (4 sources) Start: 01-21-2023 Jlr-Kygu-Jt-[place] 3-Fat Com #1 (Pre-Jeanette Multivitamins/Mine rals) 27-1-300 mg Capsule Active CAP PO January 21, 2023 1:00am Start: 01-21-2023 Wiw-Copp-Bz-Om ega 3-Fat Com #1 (Pre-Jeanette Multivitamins/Minerals) 27-1-300 mg Capsule Active CAP PO January 21, 2023 12:00am polysaccharide iron complex 391 mg oral capsule (7 sources) Start: 01-11-2025 End: 02-10-2025 take 1 capsule by mouth once daily iron polysaccharides (ProFe) 391.3 (180 Fe) MG capsule Indications: Anemia during in second trimester Take 1 capsule (391.3 mg) by mouth Daily 30 capsule 6 01/11/2025 02/10/2025 Active MV-Min-Fe Fum-FA-DHA ( 1 PO) (20 sources) MV-Min- Fe Fum-FA-DHA ( 1 PO) [...] Translations: [Iron deficiency anemia, unspecified] 07-08-2022 Episodic Deficiency and other anemia (2 sources) Hemoglobin low; Translations: [Anemia, unspecified] 01-25-2025 Episodic Genitourinary symptoms and ill-defined conditions (2 [...] conditions (not mental disorders or infectious disease) (2 sources) Ultrasound scan abnormal; Translations: [Abnormal findings on diagnostic imaging of other specified body structures] 02-21-2025 Chronic Other screening for suspected conditions (not mental disorders or infectious disease) (8 sources) Encounter for screening for malignant neoplasm of cervix; Translations: [Patient encounter status] Onset: 01-13-2023 Episodic Residual codes; unclassified (1 [...] [25 weeks gestation of ] 12-28-2024 Episodic Residual codes; unclassified (2 sources) Gestation period, 27 weeks; Translations: [27 weeks gestation of ] 01-11-2025 Episodic Residual codes; unclassified (2 sources) Gestation period, 29 weeks; Translations: [29 weeks gestation of ] 01-25-2025 Episodic Residual codes; unclassified (1 source) Gestation period, 32 weeks; Translations: [32 weeks gestation of ] 02-09-2025 Episodic Residual codes; unclassified (2 sources) Gestation period, 33 weeks; Translations: [33 weeks gestation of ] 02-21-2025 Episodic Skin and subcutaneous tissue infections (4 [...] [Solitary pulmonary nodule] Onset: 04-14-2023 04-14-2023 Episodic Other upper respiratory infections (20 sources) Acute pansinusitis; Translations: [Acute pansinusitis, unspecified] Onset: 10-11-2024 10-11-2024 Episodic Otitis media and related conditions (20 sources) Acute suppurative otitis media without spontaneous rupture of ear drum; Translations: [Acute suppurative otitis media without spontaneous rupture of ear drum, right ear] Onset: 02-22-2024 Resolved: 10-11-2024 02-22-2024 Episodic Results Test Name Value Interpretation Reference Range Facility Urinalysis macro (dipstick) panel (U)on 02-21-2025 Bilirubin, UA Negative Negative - 4(70) +++ mg/dL [facility] Blood, UA Negative Negative - 50 Naveed/mcL [...] Negative - Positive [facility] pH, UA 7 5 - 9 [facility] Protein, UA Negative Negative - 1999(20) ++++ mg/dL [facility] Spec Grav, UA 1.02 1 - 1.03 [facility] Urobilinogen, UA 0.2 0.2 - 12 mg/dL [facility] Urinalysis macro (dipstick) panel (U)on 02-09-2025 Bilirubin, UA Negative Negative - 4(70) +++ mg/dL [facility] Blood, UA Negative Negative - 50 Naveed/mcL [facility] Clarity, UA Clear [facility] Color, UA Yellow [facility] Glucose, UA Negative Negative - 1999(110) ++++ mg/dL [facility] Interpretation and review of laboratory results Abnormal [facility] Ketones, UA Negative Negative - 160(16) ++++ mg/dL [facility] Leukocytes, UA Positive Negative - 500+++ José Luis/mcL [facility] Comment on above: small Nitrite, UA Negative Negative - Positive [facility] pH, UA 7.5 5 - 9 [facility] Protein, UA Negative Negative - 1999(20) ++++ mg/dL [facility] Spec Grav, UA 1.015 1 - 1.03 [facility] Urobilinogen, UA 0.2 0.2 - 12 mg/dL [facility] Urinalysis macro (dipstick) panel (U)on 01-25-2025 Bilirubin, UA Negative Negative - 4(70) +++ [...] Negative - Positive [facility] pH, UA 7 5 - 9 [facility] Protein, UA Negative Negative - 1999(20) ++++ mg/dL [facility] Spec Grav, UA 1.015 1 - 1.03 [facility] Urobilinogen, UA 0.2 0.2 - 12 mg/dL [facility] Urinalysis macro (dipstick) panel (U)on 01-11-2025 Bilirubin, UA Negative Negative - 4(70) +++ mg/dL [facility] Blood, UA Negative Negative - 50 Naveed/mcL [facility] Clarity, UA Clear [facility] Color, UA Yellow [facility] Glucose, UA Negative Negative - 1999(110) ++++ mg/dL [facility] Interpretation and review of laboratory results Abnormal [facility] Ketones, UA Positive Negative - 160(16) ++++ mg/dL [facility] Comment on above: trace Leukocytes, UA Negative Negative - 500+++ José Luis/mcL [facility] Nitrite, UA Negative Negative - Positive [facility] pH, UA 7 5 - 9 [facility] Protein, UA Negative Negative - 1999(20) ++++ mg/dL [facility] Spec Grav, UA 1.02 1 - 1.03 [facility] Urobilinogen, UA 0.2 0.2 - 12 mg/dL [facility] GLUCOSE 1 HOURon 01-09-2025 Glucose [Mass/Vol] 97 mg/dL NINF - 13 0 mg/dL [facility] Urinalysis macro (dipstick) panel (U)on 12-28-2024 Bilirubin, UA Negative Negative - 4(70) +++ mg/dL [facility] Blood, UA Positive Negative - 50 Naveed/mcL [facility] Clarity, UA Clear [facility] Color, UA Yellow [facility] Glucose, UA Negative Negative - 1999(110) ++++ mg/dL [facility] Interpretation and review of laboratory results Abnormal [facility] Ketones, UA Negative Negative - 160(16) ++++ mg/dL [facility] Leukocytes, UA Negative Negative - 500+++ José Luis/mcL [facility] Nitrite, UA Negative Negative - Positive [facility] pH, UA 6 5 - 9 [facility] Protein, UA Positive Negative - 1999(20) ++++ mg/dL [facility] Spec Grav, UA 1.03 1 - 1.03 [facility] Urobilinogen, UA 1.0 0.2 - 12 mg/dL [facility] US OB CERVICAL LENGTHon 02-0 [place] [address] Ultrasound Report Signed Patient: AILYN BARON MR#: [id number] : 1995 Acct:[id number] Age/Sex: 29 / F ADM Date: 12/26/24 Loc: US Attending Dr: Dlevis Meraz D.O. Ordering Physician: Delvis Meraz D.O. Date of Service: 12/26/24 Procedure(s): US OB cervical length Accession Number(s): [id number] cc: Delvis Meraz D.O.; Mike Wagner M.D. [place] [address] Patient Name: AILYN BARON MRN: [id number] date: 1995 Sex: F Assigned Patient Location: US Current Patient Location: ED.MAIN Accession/Order Number: [id number] Exam Date: 12/26/2024 15:30 Report Date: 12/27/2024 [...] M.D. Signed By: 12/27/24922 DD/ 0 TD/TT: Fishing Vessel Mate: [facility] Radiology, Radiologi MD maria elena - 12/27/2024 [place] [address] Ultrasound Report Signed Patient: AILYN BARON MR#: [id number] : 1995 Acct:[id number] Age/Sex: 29 / F ADM Date: 12/26/24 Loc: US Attending Dr: Delvis Meraz D.O. Ordering Physician: Delvis Meraz D.O. Date of Service: 12/26/24 Procedure(s): US OB cervical length Accession Number(s): [id number] cc: Delvis Mearz D.O.; Mike Wagner M.D. [facility] [place] [address] Patient Name: AILYN BARON MRN: [facility]:[id number] date: 1995 Sex: F Assigned Patient Location: US Current Patient Location: ED.MAIN Accession/Order Number: [id number] Exam Date: 12/26/2024 15:30 Report Date: 12/27/2024 [...] M.D. Signed By: 12/27/24922 DD/ 0 TD/TT: Fishing Vessel Mate: [facility] Radiology Study observation (narrative) [facility] US OB CERVICAL LENGTHOrdered By: Radiologist Radiology on 12-27-2024 [facility] Work Phone: Urinalysis macro (dipstick) panel (U)on 11-28-2024 Bilirubin, UA Negative Negative - 4(70) +++ mg/dL [facility] Blood, UA Positive Negative - 50 Naveed/mcL [facility] Comment on above: trace Clarity, UA Clear [facility] Color, UA Yellow [facility] Glucose, UA Negative Negative - 2000(110) ++++ mg/dL [facility] Interpretation and review of laboratory results Abnormal [facility] Ketones, UA Negative Negative - 160(16) ++++ mg/dL [facility] Leukocytes, UA Negative Negative - 500+++ José Luis/mcL [facility] Nitrite, UA Negative Negative - Positive [facility] pH, UA 6.5 5 - 9 [facility] Protein, UA Negative Negative - 2000(20) ++++ mg/dL [facility] Spec Grav, UA 1.025 1 - 1.03 [facility] Urobilinogen, UA 0.2 0.2 - 12 mg/dL [facility] No Panel Informationon 10-26 STAPHYLOCOCCUS EPIDERMIDIS, HAEMOLYTICUS, LUGDUNENSIS, SAPROPHYTICUS (URINA 0 [facility] STAPHYLOCOCCUS EPIDERMIDIS, HAEMOLYTICUS, LUGDUNENSIS, SAPROPHYTICUS (URINA Not detected [facility] URINARY TRACT INFECTION (HTR X)on 10-26-2024 ACINETOBACTER BAUMANII 0 NO [facility] ACINETOBACTER BAUMANII Not detected [facility] STEVEN ALBICANS, PARAPSILOSIS, TROPICALIS 0 [facility] STEVEN ALBICANS, PARAPSILOSIS, TROPICALIS Not detected [facility] STEVEN GLABRATA 0 [facility] STEVEN GLABRATA Not detected [facility] STEVEN KRUSEI 0 [facility] STEVEN KRUSEI Not detected [facility] CITROBACTER FREUNDII 0 [facility] CITROBACTER FREUNDII Not detected NO [facility] ENTEROBACTER AEROGENES, CLOACAE 0 [facility] ENTEROBACTER AEROGENES, CLOACAE Not detected [facility] ENTEROCOCCUS FAECALIS, FAECIUM 0 [facility] ENTEROCOCCUS FAECALIS, FAECIUM Not detected [facility] ESCHERICHIA COLI 0 [facility] ESCHERICHIA COLI Not detected [facility] KLEBSIELLA PNEUMONIAE, OXYTOCA 0 [facility] KLEBSIELLA PNEUMONIAE, OXYTOCA Not detected [facility] MORGANELLA MORGANII 0 [facility] MORGANELLA MORGANII Not detected [facility] PROTEUS MIRABILIS, VULGARIS 0 [facility] PROTEUS MIRABILIS, VULGARIS Not detected [facility] PSEUDOMONAS AERUGINOSA 0 NO [facility] PSEUDOMONAS AERUGINOSA Not detected [facility] SERRATIA MARCESCENS 0 [facility] SERRATIA MARCESCENS Not detected [facility] STAPHYLOCOCCUS AUREUS 0 [facility] STAPHYLOCOCCUS AUREUS Not detected [facility] STREPTOCOCCUS AGALACTIAE (GROUP B STREP) 0 [facility] STREPTOCOCCUS AGALACTIAE (GROUP B STREP) Not detected [facility] STREPTOCOCCUS PYOGENES (GROUP A STREP) 0 [facility] STREPTOCOCCUS PYOGENES (GROUP A STREP) Not detected [facility] Urinalysis macro (dipstick) panel (U)on 10-24-2024 Bilirubin, UA Negative Negative - 4(70) +++ mg/dL [facility] Blood, UA Positive Negative - 50 Naveed/mcL [facility] Clarity, [...] Negative - Positive [facility] pH, UA 5.5 5 - 9 [facility] Protein, UA Negative Negative - 1999(20) ++++ mg/dL [facility] Spec Grav, UA 1.02 1 - 1.03 [facility] Urobilinogen, UA 1.0 0.2 - 12 mg/dL [facility] Urinalysis macro (dipstick) panel (U)on [...] Negative - Positive [facility] pH, UA 5.5 5 - 9 [facility] Protein, UA Negative Negative - 1999(20) ++++ mg/dL [facility] Spec Grav, UA 1.02 1 - 1.03 [facility] Urobilinogen, UA 0.2 0.2 - 12 mg/dL [facility] MLR HEMOGLOBIN A1Con 024 Glucose [Mass/Vol] 91 mg/dL [facility] HbA1c (Bld) [Mass fraction] 4.8 % 4.5 - 6.2 % [facility] Comment on above: ADA RECOMMENDED LIMI T 4.0 - 6.0 ADA THERAPEUTIC TARGET < 7.0 ACTION SUGGESTED > 7.0 [facility] HCG ( test) Ql (U)o n 08-26-2024 Interpretation and review of laboratory results Abnormal [facility] Preg Test, Ur Positive [facility] Urinalysis macro (dipstick) panel (U)on [...] Urobilinogen, UA 0.2 0.2 - 12 mg/dL [facility] PREG QUANT HCGon 024 HCG QUANTITATIVE 1850 mIU/mL [facility] Comment on above: 5-50 0.2-1 WEEK 50-500 1-2 WEEKS 100-5,000 2-3 WEEKS 500-10,000 3-4 WEEKS 1,000-50,000 4-5 WEEKS 10,000-100,000 5-6 WEEKS 15,000-200,000 6-8 WEEKS 10,000-100,000 2[facility] 024 HCG QUANTITATIVE 824 mIU/mL [facility] Comment on above: 5-50 0.2-1 WEEK 50-500 1-2 WEEKS 100-5,000 2-3 WEEKS 500-10,000 3-4 WEEKS 1,000-50,000 4-5 WEEKS 10,000-100,000 5-6 WEEKS 15,000-200,000 6-8 WEEKS 10,000-100,000 2-[facility] Alanine aminotransferase [En zymatic activity/volume] in Serum or PlasmaOrdered By: Amanda Rosario on 05-20-2023 ALT [Catalytic activity/Vol] 9 U/L 7-52 [facility] Albumin [Mass/volume] in Ser um or Plasma by Bromocresol green (BCG) dye binding methoOrdered By: Amanda Rosario on 05-20-2023 Albumin BCG dye [Mass/Vol] 3.8 g/dL 3.5-5.7 [facility] Alkaline phosphatase [Enzyma tic activity/volume] in Serum or PlasmaOrdered By: Amanda Rosario on 05-20-2023 ALP [Catalytic activity/Vol] 52 U/L 34-104 [facility] Aspartate aminotransferase [ Enzymatic activity/volume] in Serum or PlasmaOrdered By: Amanda Rosario on 05-20-2023 AST [Catalytic activity/Vol] 14 U/L 13-39 [facility] Basophils Auto (Bld) [#/Vol] Ordered By: Amanda Rosario on 05-20-2023 Basophils (Bld) [#/Vol] 0.0 10*3/uL 0.0-0.2 [facility] Basophils/100 WBC Auto (Bld) Ordered By: Amanda Rosario on 05-20-2023 Basophils/100 WBC (Bld) 0.4 % . [facility] Bilirubin.total [Mass/volume ] in Serum or PlasmaOrdered By: Amanda Rosario on 05-20-2023 Bilirubin [Mass/Vol] 0.5 mg/dL 0.3-1.0 [facility] Calcium [Mass/volume] in Ser um or PlasmaOrdered By: Amanda Rosario on 05-20-2023 Calcium [Mass/Vol] 8.5 mg/dL 8.6-10.3 [facility] Carbon dioxide, total [Moles /volume] in Serum or PlasmaOrdered By: Amanda Rosario on 05-20-2023 CO2 [Moles/Vol] 26.1 mmol/L 21.0-31.0 [facility] Chloride [Moles/volume] in S [place] or PlasmaOrdered By: Amanda Rosario on 05-20-2023 Chloride [Moles/Vol] 104 mmol/L 98-107 [facility] Creatinine [Mass/volume] in Serum or PlasmaOrdered By: Amanda Rosario on 05-20-2023 Creatinine [Mass/Vol] 0.56 mg/dL 0.60-1.20 [facility] Eosinophils Auto (Bld) [#/Vo l]Ordered By: Amanda Rosario on 05-20-2023 Eosinophils (Bld) [#/Vol] 0.1 10*3/uL 0.0-0.45 [facility] Eosinophils/100 WBC Auto (Bl d)Ordered By: Amanda Rosario on 05-20-2023 Eosinophils/100 WBC (Bld) 0.6 % . [facility] Erythrocyte distribution wid th Auto (RBC) [Ratio]Ordered By: Amanda Rosario on 05-20-2023 Erythrocyte distribution width (RBC) [Ratio] 13.1 % 11.9-15.3 [facility] Globulin Calc (S) [Mass/Vol] Ordered By: Amanda Rosario on 05-20-2023 Globulin (S) [Mass/Vol] 2.3 g/dL [facility] Glucose [Mass/volume] in Ser um or PlasmaOrdered By: Amanda Rosario on 05-20-2023 Glucose [Mass/Vol] 72 mg/dL 70-100 [facility] Comment on above: ADA recommended refe rence rangeRandom Glucose Reference Range is dependent on time and content of last meal. Glucose of more than 200 mg/dL in a nonstressed, ambulatory subject supports the diagnosis of Diabetes Mellitus. Hematocrit Auto (Bld) [Volum e fraction]Ordered By: Amanda Roasrio on 05-20-2023 Hematocrit (Bld) [Volume fraction] 34.7 % 34.0-46.4 [facility] Hemoglobin [Mass/volume] in BloodOrdered By: Amanda Rosario on 05-20-2023 Hemoglobin (Bld) [Mass/Vol] 12.0 g/dL 11.8-15.4 [facility] Leukocytes [#/volume] correc yaniar for nucleated erythrocytes in Blood by Automated counOrdered By: Amanda Rosario on 05-20-2023 WBC corrected for nucl RBC Auto (Bld) [#/Vol] 10.3 10*3/uL 3.8-11.6 [facility] Lymphocytes Auto (Bld) [#/Vo l]Ordered By: Amanda Rosario on 05-20-2023 Lymphocytes (Bld) [#/Vol] 1.3 10*3/uL 1.00-4.8 [facility] Lymphocytes/100 WBC Auto (Bl d)Ordered By: Amanda Rosario on 05-20-2023 Lymphocytes/100 WBC (Bld) 12.8 % . [facility] MCH Auto (RBC) [Entitic mass ]Ordered By: Amanda Rosario on 05-20-2023 MCH (RBC) [Entitic mass] 31.5 pg 24.7-34.3 [facility] MCHC Auto (RBC) [Mass/Vol]Or dered By: Amanda Rosario on 05-20-2023 MCHC (RBC) [Mass/Vol] 34.6 g/dL 32.0-35.0 [facility] MCV Auto (RBC) [Entitic vol] Ordered By: Amanda Rosario on 05-20-2023 MCV (RBC) [Entitic vol] 91.1 fL 80-100 [facility] Monocytes Auto (Bld) [#/Vol] Ordered By: Amanda Rosario on 05-20-2023 Monocytes (Bld) [#/Vol] 0.7 10*3/uL 0.0-0.8 [facility] Monocytes/100 WBC Auto (Bld) Ordered By: Amanda Rosario on 05-20-2023 Monocytes/100 WBC (Bld) 6.4 % . [facility] Neutrophils Auto (Bld) [#/Vo l]Ordered By: Amanda Rosario on 05-20-2023 Neutrophils (Bld) [#/Vol] 8.2 10*3/uL 1.8-7.7 [facility] Neutrophils/100 WBC Auto (Bl d)Ordered By: Amanda Rosario on 05-20-2023 Neutrophils/100 WBC (Bld) 79.8 % . [facility] No Panel InformationOrdered By: Amanda Rosario on 05-20-2023 Adrenocorticotropic Hormone 10.8 pg/mL 7.2-63.3 [facility] Comment on above: ACTH reference inter cruz for samples collected between 7 and10 AM.Performed at: [facility] [address] [id number] Director: Sai Smalls PhD, Phone: [phone] Estimated GFR (CKD-EPI) > 60.0 mL/Min [facility] Creatinine Clearance (Chem 154.92 [facility] Nucleated erythrocytes [Pres ence] in Blood by Automated countOrdered By: Amanda Rosario on 05-20-2023 Nucleated RBC Auto Ql (Bld) 0.2 /100{WBC} 0-0.5 [facility] Platelet mean volume Auto (B ld) [Entitic vol]Ordered By: Amanda Rosario on 05-20-2023 Platelet mean volume (Bld) [Entitic vol] 7.4 fL 6.3-10.7 [facility] Platelets Auto (Bld) [#/Vol] Ordered By: Amanda Rosario on 05-20-2023 Platelets (Bld) [#/Vol] 256 10*3/uL 150-450 [facility] Potassium [Moles/volume] in Serum or PlasmaOrdered By: Amanda Rosario on 05-20-2023 Potassium [Moles/Vol] 4.2 mmol/L 3.5-5.1 [facility] Protein [Mass/volume] in Ser um or PlasmaOrdered By: Amanda Rosario on 05-20-2023 Protein [Mass/Vol] 6.1 g/dL 6.4-8.9 [facility] RBC Auto (Bld) [#/Vol]Ordere d By: Amanda Rosario on 05-20-2023 RBC (Bld) [#/Vol] 3.81 10*6/uL 3.60-5.00 [facility] Serum or plasma albumin/glob ulin mass ratioOrdered By: Amanda Rosario on 05-20-2023 Albumin/Globulin [Mass ratio] 1.7 {ratio} [facility] Serum or plasma anion gap de terminationOrdered By: Amanda Rosario on 05-20-2023 Anion gap [Moles/Vol] 10.1 mmol/L 6.0-15.0 [facility] Sodium [Moles/volume] in Ser um or PlasmaOrdered By: Amanda Rosario on 05-20-2023 Sodium [Moles/Vol] 136 mmol/L 136-145 [facility] Thyrotropin [Units/volume] i n Serum or PlasmaOrdered By: Amanda Rosario on 05-20-2023 TSH Qn 1.31 m[IU]/L 0.45-5.33 [facility] Thyroxine (T4) free [Mass/vo lume] in Serum or PlasmaOrdered By: Amanda Rosario on 05-20-2023 Free T4 [Mass/Vol] 0.86 ng/dL 0.61-1.12 [facility] Triiodothyronine (T3) Free [ Mass/volume] in Serum or PlasmaOrdered By: Amanda Rosario on 05-20-2023 Free T3 [Mass/Vol] 2.91 pg/mL 2.50-3.90 [facility] Urea nitrogen [Mass/volume] in Serum or PlasmaOrdered By: Amanda Rosario on 05-20-2023 Urea nitrogen [Mass/Vol] 10 mg/dL 7-25 [facility] WBC Auto (Bld) [#/Vol]Ordere d By: Amanda Rosario on 05-20-2023 WBC (Bld) [#/Vol] 10.3 10*3/uL 3.8-11.6 [facility] HEP B SURFACE ANTIGEN SCREEN on 04-08-2023 HBsAg Screen Negative Normal Negative [facility] Comment on above: Performed By: #### T SH #### [facility] [address] [place] [address] Dr. Beth Pineda HEPATITIS C VIRUS AB W/ REFL EX QUANTon 04-08-2023 HCV AB Non-Reactive Normal Non Reactive [facility] Comment on above: Performed By: #### H CVPCRR #### [facility] [address] [place] [address] Dr. Beth Pineda HIV 1 AND 2 WITH REFLEXon HIV Screen 4th Generation wRfx Non-Reactive Normal Non Reactive [facility] Comment on above: Result Comment: HIV Negative HIV-1/HIV-2 antibodies and HIV-1 p24 antigen were NOT detected. There is no laboratory evidence of HIV infection. Performed By: #### H IV12 #### [facility] [address] [place] [address] Dr. Beth Pineda RPR QUANTon 04-08-2023 Rapid Plasma Reagin, Quant Non-Reactive Normal NonRea<1:1 [facility] Comment on above: Result Comment: Plea se Note: This test does not meet current guidelines for screening and diagnosis of syphilis. This test is intended for following treatment response in patients being treated for syphilis infection. To screen for syphilis infection, a reflex cascade that includes both RPR and a treponema-specific assay should be utilized, such as Treponema pallidum (Syphilis) Screening [place] (282952) or Rapid Plasma Reagin (RPR) Test With Reflex to Quantitative RPR and Confirmatory Treponema pallidum Antibodies (089467). Performed By: #### R PRQ #### [facility] [address] [place] [address] Dr. Beth Pineda RUBELLA AB IGGon 04-08-2023 Rubella Antibodies, IgG 1.35 index Normal Immu ne >0.99 [facility] Comment on above: Result Comment: Non- immune <0.90 Equivocal 0.90 - 0.99 Immune >0.99 Performed By: #### R UBIGG #### [facility] [address] [place] [address] Dr. Beth Pineda BOX TEST SENT OUTon 04-07-20 SENT TO REF LAB 04/07/23 Normal [facility] Comment on above: Performed By: #### B OX #### [facility] [address] [place] [address] Dr. Beth Pineda CBC AUTO DIFFon 04-07-2023 BASO # 0.1 103/ul Normal 0.0-0.1 [facility] Comment on above: Performed By: #### C BC #### [facility] [address] [place] [address] Dr. Beth Pineda Basophils/100 WBC (Bld) 0.7 % Normal 0.2-2.0 [facility] Comment on above: Performed By: #### C BC #### [facility] [address] [place] [address] Dr. Beth Pineda EO # 0.1 103/ul Normal 0.0-0.7 [facility] Comment on above: Performed By: #### C BC #### [facility] [address] [place] [address] Dr. Beth Pineda Eosinophils/100 WBC (Bld) 1.1 % Normal 0.9-7.0 [facility] Comment on above: Performed By: #### C BC #### [facility] [address] [place] [address] Dr. Beth Pineda Erythrocyte distribution width (RBC) [Ratio] 12.5 % Normal 11.0-15.0 [facility] Comment on above: Performed By: #### C BC #### [facility] [address] [place] [address] Dr. Beth Pineda Hematocrit (Bld) [Volume fraction] 37.8 % Normal 36.0-48.0 [facility] Comment on above: Performed By: #### C BC #### [facility] [address] [place] [address] Dr. Beth Pineda Hemoglobin (Bld) [Mass/Vol] 13.1 g/dL Normal 12.0-16.0 [facility] Comment on above: Performed By: #### C BC #### [facility] [address] [place] [address] Dr. Beth Pineda IG # 0.02 10e3/ul Normal 0.00-0.03 [facility] Comment on above: Performed By: #### C BC #### [facility] [address] [place] [address] Dr. Beth Pineda IG % 0.3 % Normal 0.0-0.5 [facility] Comment on above: Performed By: #### C BC #### [facility] [address] [place] [address] Dr. Beth Pineda LYMPH # 1.5 103/ul Normal 1.2-3.8 [facility] Comment on above: Performed By: #### C BC #### [facility] [address] [place] [address] Dr. Beth Pineda Lymphocytes/100 WBC (Bld) 19.9 % Critically low 20.5-60.0 [facility] Comment on above: Performed By: #### C BC #### [facility] [address] [place] [address] Dr. Beth Pineda MANUAL DIFF REQ NO Normal [facility] Comment on above: Performed By: #### C BC #### [facility] [address] [place] [address] Dr. Beth Pineda MCH (RBC) [Entitic mass] 31.3 pg Normal 26.7-34.0 [facility] Comment on above: Performed By: #### C BC #### [facility] [address] [place] [address] Dr. Beth Pineda MCHC (RBC) [Mass/Vol] 34.7 g/dL Normal 29.9-35.2 [facility] Comment on above: Performed By: #### C BC #### [facility] [address] [place] [address] Dr. Beth Pineda MCV (RBC) [Entitic vol] 90.2 fL Normal 81.0-99.0 [facility] Comment on above: Performed By: #### C BC #### [facility] [address] [place] [address] Dr. Beth Pineda MONO # 0.5 103/ul Normal 0.3-0.8 [facility] Comment on above: Performed By: #### C BC #### [facility] [address] [place] [address] Dr. Beth Pineda Monocytes/100 WBC (Bld) 6.1 % Normal 1.7-12.0 [facility] Comment on above: Performed By: #### C BC #### [facility] [address] [place] [address] Dr. Beth Pineda NEUT # 5.4 103/ul Normal 1.4-6.5 [facility] Comment on above: Performed By: #### C BC #### [facility] [address] [place] [address] Dr. Beth Pineda Neutrophils/100 WBC (Bld) 71.9 % Normal 43.0-75.0 [facility] Comment on above: Performed By: #### C BC #### [facility] [address] [place] [address] Dr. Beth Pineda Platelet mean volume (Bld) [Entitic vol] 8.9 fL Critically low 9.5-13.5 [facility] Comment on above: Performed By: #### C BC #### [facility] [address] [place] [address] Dr. Beth Pineda PLT 272 103/ul Normal 150-450 [facility] Comment on above: Performed By: #### C BC #### [facility] [address] [place] [address] Dr. Beth Pineda RBC 4.19 106/ul Critically low 4.20-5.40 [facility] Comment on above: Performed By: #### C BC #### [facility] [address] [place] [address] Dr. Beth Pineda WBC 7.5 103/ul Normal 4.0-11.0 [facility] Comment on above: Performed By: #### C BC #### [facility] [address] [address] [address] Beth Pineda CULTURE URINEon 04-07-2023 CULTURE URINE Culture Observations : NO GROWTH. Normal [facility] Comment on above: Performed By: #### T SH #### [facility] [address] [place] [address] Dr. Beth Pineda GLYCOHEMOGLOBIN A1Con 2022 ADA RECOMMENDATION SEE BELOW Normal [facility] Comment on above: Result Comment: ADA RECOMMENDED LIMIT 4.0 - 6.0 ADA THERAPEUTIC TARGET < 7.0 ACTION SUGGESTED > 7.0 Performed By: #### A 1C #### [facility] [address] [place] [address] Dr. Beth Pineda Glucose [Mass/Vol] 82 mg/dL Normal [facility] Comment on above: Performed By: #### A 1C #### [facility] [address] [place] [address] Dr. Beth Pineda HbA1c (Bld) [Mass fraction] 4.5 % Normal 4.5-6.2 [facility] Comment on above: Performed By: #### A 1C #### [facility] [address] [place] [address] Dr. Beth Pineda TSHon 04-07-2023 TSH 2.191 uIU/mL Normal 0.358-3.740 [facility] Comment on above: Performed By: #### T SH #### [facility] [address] [place] [address] Dr. Beth Pineda TYPE AND SCREENon 04-07-2023 TYPE AND SCREEN Negative Normal [facility] Comment on above: Performed By: #### T SH #### [facility] [address] [place] [address] Dr. Beth Pineda US PREG TVon 03-13-2023 [...] by: MORE CONTRERAS Date: 2023-03-13 09:37 Normal [facility] PREG QUANT HCGon 02-27-2023 HCG QUANT 82399 mIU/mL Normal [facility] Comment on above: Performed By: #### A 1C #### [facility] [address] [place] [address] Dr. Beth Pineda HCG RANGE SEE BELOW Normal [facility] Comment on above: Result Comment: 5-50 0.2-1 WEEK 50-500 1-2 WEEKS 100-5,000 2-3 WEEKS 500-10,000 3-4 WEEKS 1,000-50,000 4-5 WEEKS 10,000-100,000 5-6 WEEKS 15,000-200,000 6-8 WEEKS 10,000-100,000 2-3 MONTHS Performed By: #### A 1C #### [facility] [address] [place] [address] Dr. Beth Pineda PREG QUANT HCGon 02-11-2023 HCG QUANT 57 mIU/mL Normal [facility] Comment on above: Performed By: #### A 1C #### [facility] [address] [place] [address] Dr. Beth Pineda HCG RANGE SEE BELOW Normal [facility] Comment on above: Result Comment: 5-50 0.2-1 WEEK 50-500 1-2 WEEKS 100-5,000 2-3 WEEKS 500-10,000 3-4 WEEKS 1,000-50,000 4-5 WEEKS 10,000-100,000 5-6 WEEKS 15,000-200,000 6-8 WEEKS 10,000-100,000 2-3 MONTHS Performed By: #### A 1C #### [facility] [address] [place] [address] Dr. Beth Pineda PREG QUANT HCGon 02-09-2023 HCG QUANT 14 mIU/mL Normal [facility] Comment on above: Performed By: #### P REGQNT #### [facility] [address] [address] [address] Beth Pineda HCG RANGE SEE BELOW Normal [facility] Comment on above: Result Comment: 5-50 0.2-1 WEEK 50-500 1-2 WEEKS 100-5,000 2-3 WEEKS 500-10,000 3-4 WEEKS 1,000-50,000 4-5 WEEKS 10,000-100,000 5-6 WEEKS 15,000-200,000 6-8 WEEKS 10,000-100,000 2-3 MONTHS Performed By: #### P REGQNT #### [facility] [address] [place], [place] [id number] Dr. Beth Pineda ANTI-MULLERIAN HORMONEon Anti-Mullerian Hormone (AMH) 12.5 ng/mL Normal [facility] Comment on above: Result Comment: For assays employing antibodies, the possibility exists for interference by heterophile antibodies in the samples.1 1.Tanja Rendon Interferences in Immunoassays - still a threat. Clin. Chem. 2000; 46: 5333-0535. This test was developed and its performance characteristics determined by [facility]. It has not been cleared or approved by the Food and Drug Administration. Reference Range: Females 20 - 25y: 1.23 - 11.51 Median 4.70 AMH concentrations of >= 1.06 ng/mL is correlated with a better response to ovarian stimulation, produced more retrievable oocytes and higher odds of live according to Gleicher et al. Fertility and Sterility. 2010: 94:9535-3420. The current AMH test method correlates with [...] Performed By: #### T SH #### [facility] [address] [place] [address] Dr. Beth Pineda PAP ACOG PANEL 2: 21 to 29on 01-20-2023 . . Normal [facility] Comment on above: Performed By: #### T SH #### [facility] [address] [place] [address] Dr. Beth Pineda Age Gdln ACOG Testing - [facility] Comment on above: Performed By: #### T SH #### [facility] [address] [place] [address] Dr. Beth Pineda DIAGNOSIS: Comment [facility] Comment on above: Result Comment: NEGA TIVE FOR INTRAEPITHELIAL LESION OR MALIGNANCY. Performed By: #### T SH #### [facility] [address] [place] [address] Dr. Beth Pineda Methodology: Comment [facility] Comment on above: Result Comment: This liquid based ThinPrep(R) pap test was screened with the use of an image guided system. Performed By: #### T SH #### [facility] [address] [place] [address] Dr. Beth Pineda Note: Comment [facility] Comment on above: Result Comment: The Pap smear is a screening test designed to aid in the detection of premalignant and malignant conditions of the uterine cervix. It is not a diagnostic procedure and should not be used as the sole means of detecting cervical cancer. Both false-positive and false-negative reports do occur. . Performed By: #### T SH #### [facility] [address] [place] [address] Dr. Beth Pineda Performed by: Comment Normal [facility] Comment on above: Result Comment: Pato Gonzalez, Gravedigger (ASCP) Performed By: #### T SH #### [facility] [address] [place] [address] Dr. Beth Pineda Reflex Criteria: Comment [facility] Comment on above: Result Comment: The HPV DNA reflex criteria were not met with this specimen result therefore, no HPV testing was performed. . Performed By: #### T SH #### [facility] [address] [place] [address] Dr. Beth Pineda Specimen adequacy: Comment Normal [facility] Comment on above: Result Comment: Sati sfactory for evaluation. Endocervical and/or squamous metaplastic cells (endocervical component) are present. Performed By: #### T #### [facility] [address] [address] [address] Beth Pineda Albumin [Mass/volume] in Ser um or PlasmaOrdered By: Amanda Rosario on 01-09-2023 Albumin [Mass/Vol] 4.3 g/dL 3.2-5.5 [facility] Alkaline phosphatase [Enzyma tic activity/volume] in Serum or PlasmaOrdered By: Amanda Rosario on 01-09-2023 ALP [Catalytic activity/Vol] 54 U/L 32-92 [facility] Aspartate aminotransferase [ Enzymatic activity/volume] in Serum or PlasmaOrdered By: Amanda Rosario on 01-09-2023 AST [Catalytic activity/Vol] 21 U/L 10-42 [facility] Basophils Auto (Bld) [#/Vol] Ordered By: Amanda Rosario on 01-09-2023 Basophils (Bld) [#/Vol] 0.0 10*3/uL 0.0-0.2 [facility] Basophils/100 WBC Auto (Bld) Ordered By: Amanda Rosario on 01-09-2023 Basophils/100 WBC (Bld) 0.7 % . [facility] Bilirubin.total [Mass/volume ] in Serum or PlasmaOrdered By: Amanda Rosario on 01-09-2023 Bilirubin [Mass/Vol] 0.7 mg/dL 0.3-1.[address] [facility] [address] biopsyOrdered By: Amanda Nino se on 01-09-2023 Transferrin [Mass/Vol] 265 mg/dL 180-380 [facility] Calcium [Mass/volume] in Ser um or PlasmaOrdered By: Amanda Rosario on 01-09-2023 Calcium [Mass/Vol] 9.6 mg/dL 8.2-10.2 [facility] Carbon dioxide, total [Moles /volume] in Serum or PlasmaOrdered By: Amanda Rosario on 01-09-2023 CO2 [Moles/Vol] 27.2 mmol/L 22.0-30.0 [facility] Chloride [Moles/volume] in S [place] or PlasmaOrdered By: Amanda Rosario on 01-09-2023 Chloride [Moles/Vol] 104 mmol/L 95-114 [facility] Creatinine and Glomerular fi ltration rate.predicted panel (S/P/Bld)Ordered By: Amanda Rosario on 01-09-2023 Creatinine [Mass/Vol] 0.72 mg/dL 0.44-1.03 [facility] Eosinophils Auto (Bld) [#/Vo l]Ordered By: Amanda Rosario on 01-09-2023 Eosinophils (Bld) [#/Vol] 0.1 10*3/uL 0.0-0.45 [facility] Eosinophils/100 WBC Auto (Bl d)Ordered By: Amanda Rosario on 01-09-2023 Eosinophils/100 WBC (Bld) 1.3 % . [facility] Erythrocyte distribution wid th Auto (RBC) [Ratio]Ordered By: Amanda Rosario on 01-09-2023 Erythrocyte distribution width (RBC) [Ratio] 13.1 % 11.9-15.3 [facility] Estimated glomerular filtrat ion rate (GFR) non- AmericanOrdered By: Amanda Rosario on 01-09-2023 GFR/1.73 sq M.predicted among non-blacks MDRD (S/P/Bld) [Vol rate/Area] > 60 mL/Min [facility] Ferritin [Mass/volume] in Se rum or PlasmaOrdered By: Amanda Rosario on 01-09-2023 Ferritin [Mass/Vol] 13.4 ng/mL 11-306.8 [facility] Globulin Calc (S) [Mass/Vol] Ordered By: Amanda Rosario on 01-09-2023 Globulin (S) [Mass/Vol] 2.3 g/dL [facility] Glucose [Mass/volume] in Ser um or PlasmaOrdered By: Amanda Rosario on 01-09-2023 Glucose [Mass/Vol] 80 mg/dL 70-100 [facility] Comment on above: ADA recommended refe rence rangeRandom Glucose Reference Range is dependent on time and content of last meal. Glucose of more than 200 mg/dL in a nonstressed, ambulatory subject supports the diagnosis of Diabetes Mellitus. Hematocrit Auto (Bld) [Volum e fraction]Ordered By: Amanda Rosario on 01-09-2023 Hematocrit (Bld) [Volume fraction] 39.5 % 34.0-46.4 [facility] Hemoglobin [Mass/volume] in BloodOrdered By: Amanda Rosario on 01-09-2023 Hemoglobin (Bld) [Mass/Vol] 13.1 g/dL 11.8-15.4 [facility] Iron [Mass/volume] in Serum or PlasmaOrdered By: Amanda Rosario on 01-09-2023 Iron [Mass/Vol] 75 ug/dL 40-150 [facility] Iron binding capacity [Mass/ volume] in Serum or PlasmaOrdered By: Amanda Rosario on 01-09-2023 Iron binding capacity [Mass/Vol] 371 ug/dL 255-450 [facility] Iron saturation [Mass Fracti on] in Serum or PlasmaOrdered By: Amanda Rosario on 01-09-2023 Iron saturation [Mass fraction] 20.2 % 20-50 [facility] Lactate dehydrogenase measur ement (enzymatic activity/volume)Ordered By: Ale Malone on 01-09-2023 LDH (Unsp spec) [Catalytic activity/Vol] 145 U/L 45-190 [facility] Leukocytes [#/volume] correc yanira for nucleated erythrocytes in Blood by Automated counOrdered By: Amanda Rosario on 01-09-2023 WBC corrected for nucl RBC Auto (Bld) [#/Vol] 4.8 10*3/uL 3.8-11.6 [facility] Lymphocytes Auto (Bld) [#/Vo l]Ordered By: Amanda Rosario on 01-09-2023 Lymphocytes (Bld) [#/Vol] 1.0 10*3/uL 1.00-4.8 [facility] Lymphocytes/100 WBC Auto (Bl d)Ordered By: Amanda Rosario on 01-09-2023 Lymphocytes/100 WBC (Bld) 20.2 % . [facility] MCH Auto (RBC) [Entitic mass ]Ordered By: Amanda Rosario on 01-09-2023 MCH (RBC) [Entitic mass] 30.0 pg 24.7-34.3 [facility] MCHC Auto (RBC) [Mass/Vol]Or dered By: Amanda Rosario on 01-09-2023 MCHC (RBC) [Mass/Vol] 33.2 g/dL 32.0-35.0 [facility] MCV Auto (RBC) [Entitic vol] Ordered By: Amanda Rosario on 01-09-2023 MCV (RBC) [Entitic vol] 90.3 fL 80-100 [facility] Monocytes Auto (Bld) [#/Vol] Ordered By: Amanda Rosario on 01-09-2023 Monocytes (Bld) [#/Vol] 0.5 10*3/uL 0.0-0.8 [facility] Monocytes/100 WBC Auto (Bld) Ordered By: Amanda Rosario on 01-09-2023 Monocytes/100 WBC (Bld) 10.5 % . [facility] Neutrophils Auto (Bld) [#/Vo l]Ordered By: Amanda Rosario on 01-09-2023 Neutrophils (Bld) [#/Vol] 3.2 10*3/uL 1.8-7.7 [facility] Neutrophils/100 WBC Auto (Bl d)Ordered By: Amanda Rosario on 01-09-2023 Neutrophils/100 WBC (Bld) 67.3 % . [facility] No Panel InformationOrdered By: Amanda Rosario on 01-09-2023 Estimated GFR () > 60 mL/Min [facility] Comment on above: GFR estimated refere nce range: According to KDOQI guidelines, <60 ml/min/1.73m2 is sufficient to diagnose a patient with chronic kidney disease. Pharmacy Creatinine Clearance (Chem 120.49 [facility] Nucleated erythrocytes [Pres ence] in Blood by Automated countOrdered By: Amanda Rosario on 01-09-2023 Nucleated RBC Auto Ql (Bld) 0.1 /100{WBC} 0-0.5 [facility] Platelet mean volume Auto (B ld) [Entitic vol]Ordered By: Amanda Rosario on 01-09-2023 Platelet mean volume (Bld) [Entitic vol] 7.9 fL 6.3-10.7 [facility] Platelets Auto (Bld) [#/Vol] Ordered By: Amanda Rosario on 01-09-2023 Platelets (Bld) [#/Vol] 290 10*3/uL 150-450 [facility] Potassium [Moles/volume] in Serum or PlasmaOrdered By: Amanda Rosario on 01-09-2023 Potassium [Moles/Vol] 4.4 mmol/L 3.5-5.1 [facility] Protein [Mass/volume] in Ser um or PlasmaOrdered By: Amanda Rosario on 01-09-2023 Protein [Mass/Vol] 6.6 g/dL 6.1-7.9 [facility] RBC Auto (Bld) [#/Vol]Ordere d By: Amanda Rosario on 01-09-2023 RBC (Bld) [#/Vol] 4.37 10*6/uL 3.60-5.00 [facility] Serum or plasma alanine green otransferase measurement without P-5'-P (enzymatic activiOrdered By: Amanda Rosario on 01-09-2023 ALT No additional P-5'-P [Catalytic activity/Vol] 20 U/L 1060 [facility] Serum or plasma albumin/glob ulin mass ratioOrdered By: Amanda Rosario on 01-09-2023 Albumin/Globulin [Mass ratio] 1.9 {ratio} [facility] Serum or plasma anion gap de terminationOrdered By: Amanda Rosario on 01-09-2023 Anion gap [Moles/Vol] 10.2 mmol/L 6.0-15.0 [facility] Sodium [Moles/volume] in Ser um or PlasmaOrdered By: Amanda Rosario on 01-09-2023 Sodium [Moles/Vol] 137 mmol/L 136-146 [facility] Urea nitrogen [Mass/volume] in Serum or PlasmaOrdered By: Amanda Rosario on 01-09-2023 Urea nitrogen [Mass/Vol] 13 mg/dL 08-15 [facility] WBC Auto (Bld) [#/Vol]Ordere d By: Amanda Rosario on 01-09-2023 WBC (Bld) [#/Vol] 4.8 10*3/uL 3.8-11.6 [facility] CBC AUTO DIFFon 12-31-2022 BASO # 0.1 103/ul Normal 0.0-0.1 [facility] Comment on above: Performed By: #### C BC #### [facility] [address] [place] [address] Dr. Beth Pineda Basophils/100 WBC (Bld) 1.2 % Normal 0.2-2.0 [facility] Comment on above: Performed By: #### C BC #### [facility] [address] [place] [address] Dr. Beth Pineda EO # 0.1 103/ul Normal 0.0-0.7 [facility] Comment on above: Performed By: #### C BC #### [facility] [address] [place] [address] Dr. Beth Pineda Eosinophils/100 WBC (Bld) 2.1 % Normal 0.9-7.0 [facility] Comment on above: Performed By: #### C BC #### [facility] [address] [place] [address] Dr. Beth Pineda Erythrocyte distribution width (RBC) [Ratio] 12.9 % Normal 11.0-15.0 [facility] Comment on above: Performed By: #### C BC #### [facility] [address] [place] [address] Dr. Beth Pineda Hematocrit (Bld) [Volume fraction] 41.2 % Normal 36.0-48.0 [facility] Comment on above: Performed By: #### C BC #### [facility] [address] [place] [address] Dr. Beth Pineda Hemoglobin (Bld) [Mass/Vol] 13.5 g/dL Normal 12.0-16.0 [facility] Comment on above: Performed By: #### C BC #### [facility] [address] [place] [address] Dr. Beth Pineda IG # 0.01 10e3/ul Normal 0.00-0.03 [facility] Comment on above: Performed By: #### C BC #### [facility] [address] [place] [address] Dr. Beth Pineda IG % 0.2 % Normal 0.0-0.5 [facility] Comment on above: Performed By: #### C BC #### [facility] [address] [place] [address] Dr. Beth Pineda LYMPH # 1.6 103/ul Normal 1.2-3.8 [facility] Comment on above: Performed By: #### C BC #### [facility] [address] [place] [address] Dr. Beth Pineda Lymphocytes/100 WBC (Bld) 29.9 % Normal 20.5-60.0 [facility] Comment on above: Performed By: #### C BC #### [facility] [address] [place] [address] Dr. Beth Pineda MANUAL DIFF REQ NO Normal [facility] Comment on above: Performed By: #### C BC #### [facility] [address] [place] [address] Dr. Beth Pineda MCH (RBC) [Entitic mass] 30.3 pg Normal 26.7-34.0 [facility] Comment on above: Performed By: #### C BC #### [facility] [address] [place] [address] Dr. Beth Pineda MCHC (RBC) [Mass/Vol] 32.8 g/dL Normal 29.9-35.2 [facility] Comment on above: Performed By: #### C BC #### [facility] [address] [place] [address] Dr. Beth Pineda MCV (RBC) [Entitic vol] 92.6 fL Normal 81.0-99.0 [facility] Comment on above: Performed By: #### C BC #### [facility] [address] [place] [address] Dr. Beth Pineda MONO # 0.4 103/ul Normal 0.3-0.8 [facility] Comment on above: Performed By: #### C BC #### [facility] [address] [place] [address] Dr. Beth Pineda Monocytes/100 WBC (Bld) 7.9 % Normal 1.7-12.0 [facility] Comment on above: Performed By: #### C BC #### [facility] [address] [place] [address] Dr. Beth Pineda NEUT # 3.0 103/ul Normal 1.4-6.5 [facility] Comment on above: Performed By: #### C BC #### [facility] [address] [place] [address] Dr. Beth Pineda Neutrophils/100 WBC (Bld) 58.7 % Normal 43.0-75.0 [facility] Comment on above: Performed By: #### C BC #### [facility] [address] [place] [address] Dr. Beth Pineda Platelet mean volume (Bld) [Entitic vol] 9.3 fL Critically low 9.5-13.5 [facility] Comment on above: Performed By: #### C BC #### [facility] [address] [place] [address] Dr. Beth Pineda PLT 304 103/ul Normal 150-450 [facility] Comment on above: Performed By: #### C BC #### [facility] [address] [place] [address] Dr. Beth Pineda RBC 4.45 106/ul Normal 4.20-5.40 [facility] Comment on above: Performed By: #### C BC #### [facility] [address] [place] [address] Dr. Beth Pineda WBC 5.2 103/ul Normal 4.0-11.0 [facility] Comment on above: Performed By: #### C BC #### [facility] [address] [place] [address] Dr. Beth Pineda GLYCOHEMOGLOBIN A1Con 2022 ADA RECOMMENDATION SEE BELOW Normal [facility] Comment on above: Result Comment: ADA RECOMMENDED LIMIT 4.0 - 6.0 ADA THERAPEUTIC TARGET < 7.0 ACTION SUGGESTED > 7.0 Performed By: #### T SH #### [facility] [address] [place] [address] Dr. Beth Pineda Glucose [Mass/Vol] 91 mg/dL Normal [facility] Comment on above: Performed By: #### T SH #### [facility] [address] [place] [address] Dr. Beth Pineda HbA1c (Bld) [Mass fraction] 4.8 % Normal 4.5-6.2 [facility] Comment on above: Performed By: #### T SH #### [facility] [address] [place] [address] Dr. Beth Pineda LIPID PROFILEon 12-31-2022 CHOL-HDL RATIO NORM SEE BELOW Normal [facility] Comment on above: Result Comment: 3.3 - 4.4 LOW RISK 4.4 - 7.1 AVERAGE RISK 7.1 - 11.0 MODERATE RISK >11.0 HIGH RISK Performed By: #### A 1C #### [facility] [address] [place] [address] Dr. Beth Pineda Cholesterol [Mass/Vol] 180 mg/dL Normal <=200 [facility] Comment on above: Performed By: #### A 1C #### [facility] [address] [place] [address] Dr. Beth Pineda Cholesterol in HDL [Mass/Vol] 106 mg/dL Critically high 40-60 [facility] Comment on above: Performed By: #### A 1C #### [facility] [address] [place] [address] Dr. Beth Pineda Cholesterol in LDL [Mass/Vol] 66.6 mg/dL Normal [facility] Comment on above: Performed By: #### A 1C #### [facility] [address] [place] [address] Dr. Beth Pineda Cholesterol.total/Elida sterol in HDL [Mass ratio] 1.7 {ratio} Normal [facility] Comment on above: Performed By: #### A 1C #### [facility] [address] [place] [address] Dr. Beth Pineda HDL NORMAL > or = 60 mg/dl - LO W CARDIOVASCULAR RISK <40 mg/dl - HIGH CARDIOVASCULAR RISK Normal [facility] Comment on above: Performed By: #### A 1C #### [facility] [address] [place] [address] Dr. Beth Pineda LDL CALC NORMAL SEE BELOW Normal [facility] Comment on above: Result Comment: <100 mg/dl OPTIMAL 100 - 129 mg/dl NEAR OR ABOVE OPTIMAL 130 - 159 mg/dl BORDERLINE HIGH 160 - 189 mg/dl HIGH >190 mg/dl VERY HIGH Performed By: #### A 1C #### [facility] [address] [place] [address] Dr. Beth Pineda Triglyceride [Mass/Vol] 37 mg/dL Normal <=150 [facility] Comment on above: Performed By: #### A 1C #### [facility] [address] [place] [address] Dr. Beth Pineda VLDL CALC 7.4 mg/dL Normal [facility] Comment on above: Performed By: #### A 1C #### [facility] [address] [place] [address] Dr. Beth Pineda PROF 14(COMP METB)on 023 Albumin [Mass/Vol] 4.3 g/dL Normal 3.4-5.0 [facility] Comment on above: Performed By: #### T SH #### [facility] [address] [place] [address] Dr. Beth Pineda Albumin/Globulin [Mass ratio] 1.3 {ratio} Normal [facility] Comment on above: Performed By: #### T SH #### [facility] [address] [place] [address] Dr. Beth Pineda ALP [Catalytic activity/Vol] 68 U/L Normal 46-116 [facility] Comment on above: Performed By: #### T SH #### [facility] [address] [place] [address] Dr. Beth Pineda ALT [Catalytic activity/Vol] 21 U/L Normal 14-59 [facility] Comment on above: Performed By: #### T SH #### [facility] [address] [place] [address] Dr. Beth Pineda Anion gap [Moles/Vol] 12.1 mmol/L Normal [facility] Comment on above: Performed By: #### T SH #### [facility] [address] [address] [address] Beth Pineda AST [Catalytic activity/Vol] 10 U/L Critically low 15-37 [facility] Comment on above: Performed By: #### T SH #### [facility] [address] [address] [address] Beth Pineda Bilirubin [Mass/Vol] 0.6 mg/dL Normal 0.2-1.0 [facility] Comment on above: Performed By: #### T SH #### [facility] [address] [address] [address] Beth Pineda Calcium [Mass/Vol] 9.2 mg/dL Normal 8.5-10.1 [facility] Comment on above: Performed By: #### T SH #### [facility] [address] [place] [address] Dr. Beth Pineda Chloride [Moles/Vol] 103 mmol/L Normal 98-107 [facility] Comment on above: Performed By: #### T SH #### [facility] [address] [place] [address] Dr. Beth Pineda CO2 [Moles/Vol] 28.0 mmol/L Normal 21.0-32.0 [facility] Comment on above: Performed By: #### T SH #### [facility] [address] [place] [address] Dr. Beth Pineda Creatinine [Mass/Vol] 0.73 mg/dL Normal 0.55-1.02 [facility] Comment on above: Performed By: #### T SH #### [facility] [address] [place] [address] Dr. Beth Pineda EGFR-AF GHANAIAN >60 Normal >=60 [facility] Comment on above: Performed By: #### T SH #### [facility] [address] [place] [address] Dr. Beth Pineda EGFR-NON AF GHANAIAN >60 Normal >=60 [facility] Comment on above: Performed By: #### T SH #### [facility] [address] [place] [address] Dr. Beth Pineda Globulin (S) [Mass/Vol] 3.2 g/dL Normal [facility] Comment on above: Performed By: #### T SH #### [facility] [address] [address] [address] Beth Pineda Glucose [Mass/Vol] 89 mg/dL Normal 74-106 [facility] Comment on above: Performed By: #### T SH #### [facility] [address] [address] [address] Beth Pineda Potassium [Moles/Vol] 4.1 mmol/L Normal 3.5-5.1 [facility] Comment on above: Performed By: #### T SH #### [facility] [address] [place] [address] Dr. Beth Pineda Protein [Mass/Vol] 7.5 g/dL Normal 6.4-8.2 [facility] Comment on above: Performed By: #### T SH #### [facility] [address] [place] [address] Dr. Beth Pineda Sodium [Moles/Vol] 139 mmol/L Normal 136-145 [facility] Comment on above: Performed By: #### T SH #### [facility] [address] [place] [address] Dr. Beth Pineda Urea nitrogen [Mass/Vol] 10.0 mg/dL Normal 7.0-18.0 [facility] Comment on above: Performed By: #### T SH #### [facility] [address] [place] [address] Dr. Beth Pineda Urea nitrogen/Creatinine [Mass ratio] 13.7 mg/mg Normal [facility] Comment on above: Performed By: #### T SH #### [facility] [address] [place] [address] Dr. Beth Pineda TSHon 12-31-2022 TSH 3.121 uIU/mL Normal 0.358-3.740 [facility] Comment on above: Performed By: #### A 1C #### [facility] [address] [place] [address] Dr. Beth Pineda Albumin [Mass/volume] in Ser um or PlasmaOrdered By: Amanda Rosario on 07-08-2022 Albumin [Mass/Vol] 3.9 g/dL 3.2-5.5 [facility] Basophils Auto (Bld) [#/Vol] Ordered By: Amanda Rosario on 07-08-2022 Basophils (Bld) [#/Vol] 0.1 10*3/uL 0.0-0.2 [facility] Basophils/100 WBC Auto (Bld) Ordered By: Amanda Rosario on 07-08-2022 Basophils/100 WBC (Bld) 1.3 % . [facility] Blood hemoglobin measurement (mass/volume)Ordered By: Amanda Rosario on 07-08-2022 Hemoglobin (Bld) [Mass/Vol] 14.2 g/dL 11.8-15.4 [facility] Blood leukocytes automated c ount (number/volume)Ordered By: Amanda Rosario on 07-08-2022 WBC (Bld) [#/Vol] 5.6 10*3/uL 4.5-11.[address] [facility] [address] biopsyOrdered By: Amanda Nino se on 07-08-2022 Transferrin [Mass/Vol] 346 mg/dL 180-380 [facility] Creatinine and Glomerular fi ltration rate.predicted panel (S/P/Bld)Ordered By: Amanda Rosario on 07-08-2022 Creatinine [Mass/Vol] 0.78 mg/dL 0.44-1.03 [facility] Eosinophils Auto (Bld) [#/Vo l]Ordered By: Amanda Rosario on 07-08-2022 Eosinophils (Bld) [#/Vol] 0.1 10*3/uL 0.0-0.45 [facility] Eosinophils/100 WBC Auto (Bl d)Ordered By: Amanda Rosario on 07-08-2022 Eosinophils/100 WBC (Bld) 1.2 % . [facility] Erythrocyte distribution wid th Auto (RBC) [Ratio]Ordered By: Amanda Rosario on 07-08-2022 Erythrocyte distribution width (RBC) [Ratio] 12.4 % 11.9-15.3 [facility] Estimated glomerular filtrat ion rate (GFR) non- AmericanOrdered By: Amanda Rosario on 07-08-2022 GFR/1.73 sq M.predicted among non-blacks MDRD (S/P/Bld) [Vol rate/Area] > 60 mL/Min [facility] Ferritin [Mass/volume] in Se rum or PlasmaOrdered By: Amanda Rosario on 07-08-2022 Ferritin [Mass/Vol] 9.6 ng/mL 11-306.8 [facility] Globulin Calc (S) [Mass/Vol] Ordered By: Amanda Rosario on 07-08-2022 Globulin (S) [Mass/Vol] 2.9 g/dL [facility] Hematocrit Auto (Bld) [Volum e fraction]Ordered By: Amanda Rosario on 07-08-2022 Hematocrit (Bld) [Volume fraction] 42.7 % 34.0-46.4 [facility] Iron [Mass/volume] in Serum or PlasmaOrdered By: Amanda Rosario on 07-08-2022 Iron [Mass/Vol] 173 ug/dL 40-150 [facility] Iron binding capacity [Mass/ volume] in Serum or PlasmaOrdered By: Amanda Rosario on 07-08-2022 Iron binding capacity [Mass/Vol] 484 ug/dL 255-450 [facility] Iron saturation [Mass Fracti on] in Serum or PlasmaOrdered By: Amanda Rosario on 07-08-2022 Iron saturation [Mass fraction] 35.0 % 20-50 [facility] - Hematology and Cell countsOrdered By: Amanda Rosario on 07-08-2022 Nucleated RBC/100 WBC (Bld) [Ratio] 0.2 % 0-0.5 [facility] Lactate dehydrogenase measur ement (enzymatic activity/volume)Ordered By: Amanda Rosario on 07-08-2022 LDH (Unsp spec) [Catalytic activity/Vol] 154 U/L 45-190 [facility] Lymphocytes Auto (Bld) [#/Vo l]Ordered By: Amanda Rosario on 07-08-2022 Lymphocytes (Bld) [#/Vol] 1.5 10*3/uL 1.00-4.8 [facility] Lymphocytes/100 WBC Auto (Bl d)Ordered By: Amanda Rosario on 07-08-2022 Lymphocytes/100 WBC (Bld) 26.6 % . [facility] MCH Auto (RBC) [Entitic mass ]Ordered By: Amanda Rosario on 07-08-2022 MCH (RBC) [Entitic mass] 29.7 pg 24.7-34.3 [facility] MCHC Auto (RBC) [Mass/Vol]Or dered By: Amanda Rosario on 07-08-2022 MCHC (RBC) [Mass/Vol] 33.3 g/dL 32.0-35.0 [facility] MCV Auto (RBC) [Entitic vol] Ordered By: Amanda Rosario on 07-08-2022 MCV (RBC) [Entitic vol] 89.4 fL 80-100 [facility] Monocytes Auto (Bld) [#/Vol] Ordered By: Amanda Rosario on 07-08-2022 Monocytes (Bld) [#/Vol] 0.5 10*3/uL 0.0-0.8 [facility] Monocytes/100 WBC Auto (Bld) Ordered By: Amanda Rosario on 07-08-2022 Monocytes/100 WBC (Bld) 9.7 % . [facility] Neutrophils Auto (Bld) [#/Vo l]Ordered By: Amanda Rosario on 07-08-2022 Neutrophils (Bld) [#/Vol] 3.4 10*3/uL 1.8-7.7 [facility] Neutrophils/100 WBC Auto (Bl d)Ordered By: Amanda Rosario on 07-08-2022 Neutrophils/100 WBC (Bld) 61.2 % . [facility] No Panel InformationOrdered By: Amanda Rosario on 07-08-2022 Adrenocorticotropic Hormone 8.2 pg/mL 7.2-63.3 [facility] Comment on above: ACTH reference inter cruz for samples collected between 7 and 10 AM. Performed at: [facility] [facility] [id number] Proposal Analyst: Sai Smalls PhD, Phone: [phone] ACTH reference inter cruz for samples collected between 7 and10 AM.Performed at: [employer] [facility] [id number] Director: Sai Smalls PhD, Phone: [phone] Estimated GFR () > 60 mL/Min [facility] Comment on above: GFR estimated refere nce range: According to KDOQI guidelines, <60 ml/min/1.73m2 is sufficient to diagnose a patient with chronic kidney disease. Pharmacy Creatinine Clearance (Chem 111.22 [facility] Total Triiodothyronine 1.68 ng/mL 0.87-1.78 [facility] Platelet mean volume Auto (B ld) [Entitic vol]Ordered By: Amanda Rosario on 07-08-2022 Platelet mean volume (Bld) [Entitic vol] 8.0 fL 6.3-10.7 [facility] Platelets Auto (Bld) [#/Vol] Ordered By: Amanda Rosario on 07-08-2022 Platelets (Bld) [#/Vol] 393 10*3/uL 150-450 [facility] Protein [Mass/volume] in Ser um or PlasmaOrdered By: Amanda Rosario on 07-08-2022 Protein [Mass/Vol] 6.8 g/dL 6.1-7.9 [facility] RBC Auto (Bld) [#/Vol]Ordere d By: Amanda Rosario on 07-08-2022 RBC (Bld) [#/Vol] 4.78 10*6/uL 3.60-5.00 [facility] Random cortisol measurementO rdered By: Amanda Rosario on 07-08-2022 Cortisol [Mass/Vol] 12.6 ug/dL [facility] Comment on above: Reference range: AM 6 - 24 ug/dl PM <10 ug/dl Reference range: AM 6 - 24 ug/dl PM <10 ug/dl Serum or plasma alanine green otransferase measurement without P-5'-P (enzymatic activiOrdered By: Amanda Rosario on 07-08-2022 ALT No additional P-5'-P [Catalytic activity/Vol] 17 U/L 10-60 [facility] Serum or plasma albumin/glob ulin mass ratioOrdered By: Amanda Rosario on 07-08-2022 Albumin/Globulin [Mass ratio] 1.3 {ratio} [facility] Serum or plasma alkaline mando sphatase measurement (enzymatic activity/volume)Ordered By: Amanda Rosario on 07-08-2022 ALP [Catalytic activity/Vol] 52 U/L 32-92 [facility] Serum or plasma aspartate am inotransferase measurement (enzymatic activity/volume)Ordered By: Amanda Rosario on 07-08-2022 AST [Catalytic activity/Vol] 22 U/L 10-42 [facility] Serum or plasma calcium saritha urement (mass/volume)Ordered By: Amanda Rosario on 07-08-2022 Calcium [Mass/Vol] 9.3 mg/dL 8.2-10.2 [facility] Serum or plasma chloride obi surement (moles/volume)Ordered By: Amanda Rosario on 07-08-2022 Chloride [Moles/Vol] 104 mmol/L 95-114 [facility] Serum or plasma glucose saritha urement (mass/volume)Ordered By: Amanda Rosario on 07-08-2022 Glucose [Mass/Vol] 83 mg/dL 70-100 [facility] Comment on above: ADA recommended refe rence range Random Glucose Reference Range is dependent on time and content of last meal. Glucose of more than 200 mg/dL in a nonstressed, ambulatory subject supports the diagnosis of Diabetes Mellitus. Serum or plasma potassium me asurement (moles/volume)Ordered By: Amanda Rosario on 07-08-2022 Potassium [Moles/Vol] 4.3 mmol/L 3.5-5.1 [facility] Serum or plasma sodium measu rement (moles/volume)Ordered By: Amanda Rosario on 07-08-2022 Sodium [Moles/Vol] 134 mmol/L 136-146 [facility] Serum or plasma thyroxine (T 4) measurement (mass/volume)Ordered By: Amanda Rosario on 07-08-2022 T4 [Mass/Vol] 11.18 ug/dL 5.39-11.82 [facility] Serum or plasma total biliru bin measurement (mass/volume)Ordered By: Amanda Rosario on 07-08-2022 Bilirubin [Mass/Vol] 0.7 mg/dL 0.3-1.2 [facility] Serum or plasma total carbon dioxide measurement (moles/volume)Ordered By: Amanda Rosario on 07-08-2022 CO2 [Moles/Vol] 22.2 mmol/L 22.0-30.0 [facility] Serum or plasma urea nitroge n measurement (mass/volume)Ordered By: Amanda Rosario on 07-08-2022 Urea nitrogen [Mass/Vol] 9 mg/dL 08-15 [facility] TSH DL <= 0.005 mIU/L QnOrde red By: Amanda Rosario on 07-08-2022 TSH Qn 1.69 m[IU]/L 0.45-5.33 [facility] CHLAMYDIA/GONOCOCCUS PARMINDER ( AB/URINE/PAPon 06-19-2022 Chlamydia trachomatis, PARMINDER Negative Normal Negative [facility] Comment on above: Performed By: #### T SH #### [facility] [address] [place] [address] Dr. Beth Pineda Neisseria gonorrhoeae, PARMINDER Negative Normal Negative [facility] Comment on above: Performed By: #### T SH #### [facility] [address] [address] [address] Beth Pineda VAGINITIS/VAGINOSIS DNA PROB Kaden 06-18-2022 Steven species Negative Normal Negative [facility] Comment on above: Performed By: #### T SH #### [facility] [address] [place] [address] Dr. Beth Pineda Gardnerella vaginalis Negative Normal Negative [facility] Comment on above: Performed By: #### T SH #### [facility] [address] [place] [address] Dr. Beth Pineda Trichomonas vaginalis Negative Normal Negative [facility] Comment on above: Performed By: #### T SH #### [facility] [address] [place] [address] Dr. Beth Pineda Creatinine [Mass/volume] in UrineOrdered By: Amanda Rosario on 05-23-2022 Creatinine (U) [Mass/Vol] 26.2 mg/dL [facility] Comment on above: No reference range e stablished Laboratory - Chemistry and C hemistry - challengeOrdered By: Amanda Rosario on 07-01-2022 Lipase [Catalytic activity/Vol] 32.0 U/L 22-51 [facility] Protein [Mass/volume] in Uri neOrdered By: Amanda Rosario on 05-23-2022 Protein (U) [Mass/Vol] mg/dL 0-9 [facility] Thyroxine (T4) free [Mass/vo lume] in Serum or PlasmaOrdered By: Amanda Rosario on 05-23-2022 Free T4 [Mass/Vol] 0.88 ng/dL 0.61-1.12 [facility] Bilirubin Test strip Ql (U)O rdered By: Amanda Rosario on 10-30-2021 Bilirubin Ql (U) Negative Negative [facility] Color Auto (U)Ordered By: Ira Rosario on 10-30-2021 Color (U) Yellow Yellow [facility] Ketones Auto test strip (U) [Mass/Vol]Ordered By: Amanda Rosario on 10-30-2021 Ketones (U) [Mass/Vol] Negative Negative [facility] Nitrite Test strip Ql (U)Ord ered By: Amanda Rosario on 10-30-2021 Nitrite Ql (U) Negative Negative [facility] Protein Auto test strip (U) [Mass/Vol]Ordered By: Amanda Rosario on 10-30-2021 Protein (U) [Mass/Vol] Negative Negative [facility] Specific gravity Auto test s trip (U) [Rel density]Ordered By: Amanda Rosario on 10-30-2021 Specific gravity (U) [Rel density] 1.008 1.001-1.030 [facility] Urine clarity by refractomet ry automatedOrdered By: Amanda Rosario on 10-30-2021 Clarity Refractometry automated (U) Clear Clear [facility] Urine glucose measurement by automated test strip (mass/volume)Ordered By: Amanda Rosario on 10-30-2021 Glucose Auto test strip (U) [Mass/Vol] Normal mg/dL Normal [facility] Urine hemoglobin detection b y automated test stripOrdered By: Amanda Rosario on 10-30-2021 Hemoglobin Auto test strip Ql (U) Negative Negative [facility] Urine leukocyte esterase det ection by automated test stripOrdered By: Amanda Rosario on 10-30-2021 Leukocyte esterase Auto test strip Ql (U) Negative Negative [facility] Urobilinogen Auto test strip (U) [Mass/Vol]Ordered By: Amanda Rosario on 10-30-2021 Urobilinogen (U) [Mass/Vol] Normal mg/dL Normal [facility] pH Auto test strip (U)Ordere d By: Amanda Rosario on 10-30-2021 pH (U) 5.5 [pH] 5.0-9.0 [facility] Lab Reportson 07-31-2021 Lab Reports [id number] D:127 Normal [facility] RAD - MISCon 07-31-2021 RAD - MISC [id number] D:127 Normal [facility] HCG ( test) IA.rapi d Ql (U)Ordered By: Amanda Rosario on 07-09-2021 HCG ( test) Ql (U) Negative [facility] Glucose Glucometer (BldC) [M ass/Vol]Ordered By: Amanda Rosario on 07-01-2021 Glucose [Mass/Vol] 82 mg/dL [facility] Comment on above: Random Glucose Refer ence Range is dependent on time and content of last meal. Glucose of more than 200 mg/dL in a nonstressed, ambulatory subject supports the diagnosis of Diabetes Mellitus. 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 Will follow up with the pathology report once this is resulted Dictation software was used in the creation of this note and not corrected for typographical or grammatical errors Chief Complaint Postop History of Present [id number]-erv woman who underwent wide excision right posterior calf melanoma with [place] flap reconstruction as well as right inguinal and iliac sentinel lymph node biopsy on 05/17/2021. Pathology report has not yet resulted. She is recovering well. Active Problems Malignant melanoma of lower leg, right (172.7) (C43.71) Allergies No Known Drug Allergies Recorded By: Florence Fernando; 05/30/2021 2:49:13 PM Vitals Vital Signs Recorded: [id number] 02:47PM Auzsknsathi52 C, Temporal Heart Oypz078 Ehibfnkjfyw84 Huepbyzv226, RUE, Sitting Ympfkmvbu23, RUE, Sitting Blood Pressure Cuff SizeAdult Rntysk669 cm Jlnueu28.6 kg BMI Iflueaohaw36.58 kg/m2 BSA Calculated1.77 O2 Ogunqkcbqc16 Pain Scale0 Physical Exam Right groin wounds above and below the inguinal crease are both healing well without evidence of infection or seroma Right lower leg incision healing well without infection or skin separation. There is some bruising noted around the flap but no flap ischemia Signatures Electronically signed by : Sarah Nevarez MD; May 30 2021 3:18PM EST (Author) Normal [facility] Dermatopathologyon Dermatopathology Name MOISES KANG Pathologist: ANUJA [...] These were compared to the original melanoma ([id number]) and are consistent with a metastatic focus [...] that were compared to the original melanoma ([id number]) and are smaller with less cytoplasm compared [...] determined by the Department of Pathology at [facility]. The FDA does not require this test [...] landis-yellow irregularly shaped piece of skin measuring [id number]. The specimen is embedded in toto. B: Received in formalin is a landis-yellow irregularly shaped piece of skin measuring 18p5u4pd. The specimen is embedded in toto. C: Received in formalin is a landis-yellow irregularly shaped piece of skin measuring [id number]. The specimen is embedded in toto. D: Received in formalin is a landis ellipse of skin measuring [id number], oriented by the surgeon with short stitch [...] Block 1 is at 12 o'clock. ink/05/21/2021 [facility]at[facility] [address] [address] Normal [facility] Comment on above: Performed By: #### D #### Dermatopathology HCG,URINEon 05-17-2021 Beta HCG ( test) Ql (U) Negative Normal Negative [facility] Comment on above: Performed By: #### H CGU #### [facility] [address] [id number] LYMPH GLANDon 05-17-2021 LYMPH GLAND Patient Name: AILYN KANG STUDY: LYMPH GLAND; 05/17/2021 12:45 pm INDICATION: Malignant melanoma of right posterior leg. COMPARISON: None. ACCESSION NUMBER(S): [id number] ORDERING CLINICIAN: SARAH NEVAREZ TECHNIQUE: DIVISION OF [...] as stated. This study was interpreted at [place], [place]. Electronically signed by: TAMY LAWTON MD Normal [facility] NM Lymph Glandon 05-17-2021 NM Lymph node Views Normal [facility] Main Work Phone: No Panel Informationon 05-17 [facility] Work Phone: Order Reconciliationon 05-17 Order [...] 4 days PRN pain, Dx: G89.18 Normal [facility] Patient Profile - Preop v2on 05-17-2021 Patient Profile - Preop v2 Profile: Initial Info: How to be AddressedSamantha Spoken Language PreferredEnglish Source of Informationpatient Are you currently using the Personal Electronic Health Record or [employer]o Are you interested in learning more about [employer] for the management of your healthnot at this time Stated Reason for Admissionwide excision melanoma right posterior leg, keystone flap and sentinel lymph node biopsy Primary Contact Name and Numberleigh ann El [phone] Limitations on Visitors/Phone Callsnone Patient Belongingsremains with patient Patient Belongings Remaining with Patientclothing; cell phone/electronics Medications Brought to Hospitalno General Health: Weight in kg63.6 kilogram(s) Weight in gka159.2 pound(s) Weight Methodstated Height in feet5 feet Height in inches8 inch(es) Height in cm172.7 centimeter(s) Height Methodstated BMI (kg/m2)21.324 square meter Patient or Family Member Reaction to Anesthesianever had anesthesia Blood Avoidance/Restrictionsn one Previous Transfusion Reactionno Health Mgmt: Symptoms/Conditions Managed at [facility] Are You no Are You Currently Breastfeedingno Barriers to Managing Healthnone Relationship/Environ: Living Arrangementshouse Lives Withsignificant other Resource/Environmental Concernsnone Anticipated Transition [place] [facility] Anticipated at Transitionnone Substance: Current or [...] instruction; written material Cultural Considerationsnone Developmental Considerationsnone Zoroastrianism Considerationsnone Other learner availableno Falls RiskPatient location auto qualifies him/her for HIGH RISK. Are there any cultural, spiritual, voodoo practices/values/needs that are important for us to knowno Do you want a visit/item from Pastoral Careno Would you like your Fruit Farmer/Manager Nicu notifiedno Pain Scalenumerical 0-10 Pain Scale Educationteaching [...] Preop Checklist Preop Checklist: Preop Checklist: Arrival [id number] Arrival Time08:55 Procedure Typewide excision melanoma right posterior leg, keystone flap and sentinel lymph node biopsy Temperature C37.1 degrees C Temperature F98.7 degrees F Heart Rate92 beats per minute Respiratory Rate16 breath per minute Blood Pressure Eyzzlxgh965 mm/Hg Blood Pressure Plgmnniij44 mm/Hg NPO [id number] 22:00 Allergy Bandno known allergies Consent Signedyes [...] 09:36 by Arabella Luis (ERICK PRN) Normal [facility] [place] Test[place] 05-17 HCG ( test) Ql (U) Negative Negative PN-Afbflww-K dmin Main Work Phone: Initial Visit (General [...] errors Chief Complaint Melanoma History of Present Nozgrzn27-jzew-yfq woman referred from [facility] for right [...] Time Vital Sign Value Performing Clinician Facility 02-21-2025 10:54-0400 Body mass index (BMI) [Ratio] 25.81 kg/m2 [employer] Work Phone: [facility] 02-21-2025 10:54-0400 Body weight 79.29 kg [employer] Work Phone: [facility] 02-21-2025 10:54-0400 Diastolic blood pressure 60 mm[Hg] [employer] Work Phone: [facility] 02-21-2025 10:54-0400 Systolic blood pressure 110 mm[Hg] Delvis [employer] Work Phone: [facility] 02-09-2025 10:41-0400 Body mass index (BMI) [Ratio] 25.22 kg/m2 Amanda TADEO Work Phone: [facility] 02-09-2025 10:41-0400 Body weight 77.47 kg Amanda TADEO Work Phone: [facility] 02-09-2025 10:41-0400 Diastolic blood pressure 68 mm[Hg] Amanda TADEO Work Phone: [facility] 02-09-2025 10:41-0400 Systolic blood pressure 118 mm[Hg] Amanda TADEO Work Phone: [facility] 01-25-2025 11:16-0500 Body mass index (BMI) [Ratio] 24.63 kg/m2 Delvis Kt DO Work Phone: [facility] 01-25-2025 11:16-0500 Body weight 75.66 kg Delvis Kt DO Work Phone: [facility] 01-25-2025 11:16-0500 Diastolic blood pressure 78 mm[Hg] Delivs Kt DO Work Phone: [facility] 01-25-2025 11:16-0500 Systolic blood pressure 124 mm[Hg] Delvis Kt DO Work Phone: [facility] 01-11-2025 14:27-0500 Body mass index (BMI) [Ratio] 24.04 kg/m2 Delvis Kt DO Work Phone: [facility] 01-11-2025 14:27-0500 Body weight 73.85 kg Delvis Kt DO Work Phone: [facility] 01-11-2025 14:27-0500 Diastolic blood pressure 58 mm[Hg] Delvis Kt DO Work Phone: [facility] 01-11-2025 14:27-0500 Systolic blood pressure 112 mm[Hg] Delvis Kt DO Work Phone: [facility] 12-28-2024 11:12-0500 Body mass index (BMI) [Ratio] 23.35 kg/m2 Delvis Kt DO Work Phone: [facility] 12-28-2024 11:12-0500 Body weight 71.72 kg Delvis Kt DO Work Phone: [facility] 12-28-2024 11:12-0500 Diastolic blood pressure 74 mm[Hg] Delvis Kt DO Work Phone: [facility] 12-28-2024 11:12-0500 Systolic blood pressure 120 mm[Hg] Delvis Kt DO Work Phone: [facility] 11-28-2024 14:41-0500 Body mass index (BMI) [Ratio] 22.74 kg/m2 Delvis Kt DO Work Phone: [facility] 11-28-2024 14:41-0500 Body weight 69.85 kg Delvis Kt DO Work Phone: [facility] 11-28-2024 14:41-0500 Diastolic blood pressure 70 mm[Hg] Delvis Kt DO Work Phone: [facility] 11-28-2024 14:41-0500 Systolic blood pressure 118 mm[Hg] Delvis Kt DO Work Phone: [facility] 10-24-2024 14:44-0500 Body mass index (BMI) [Ratio] 22 kg/m2 Delvis Kt DO Work Phone: [facility] 10-24-2024 14:44-0500 Body weight 67.59 kg Delvis Kt DO Work Phone: [facility] 10-24-2024 14:44-0500 Diastolic blood pressure 68 mm[Hg] Delvis Kt DO Work Phone: [facility] 10-24-2024 14:44-0500 Systolic blood pressure 114 mm[Hg] Delvis Kt DO Work Phone: [facility] 10-11-2024 14:39-0500 Body height 175.3 cm Mike Wagner MD Work Phone: [facility] 10-11-2024 14:39-0500 Body mass index (BMI) [Ratio] 21.56 kg/m2 Mike Wagner MD Work Phone: [facility] 10-11-2024 14:39-0500 Body temperature 97.5 [degF] Mike Wagner MD Work Phone: [facility] 10-11-2024 14:39-0500 Body weight 66.22 kg Mike Wagner MD Work Phone: [facility] 10-11-2024 14:39-0500 Diastolic blood pressure 52 mm[Hg] Mike Wagner MD Work Phone: [facility] 10-11-2024 14:39-0500 Heart rate 106 /min Mike Wagner MD Work Phone: [facility] 10-11-2024 14:39-0500 Respiratory rate 22 /min Mike Wagner MD Work Phone: [facility] 10-11-2024 14:39-0500 SaO2% (BldA) [Mass fraction] 99 % Mike Wagner MD Work Phone: [facility] 10-11-2024 14:39-0500 Systolic blood pressure 118 mm[Hg] Mike Wagner MD Work Phone: [facility] 09-26-2024 15:17-0500 Body mass index (BMI) [Ratio] 21.34 kg/m2 Delvis Kt DO Work Phone: [facility] 09-26-2024 15:17-0500 Body weight 65.55 kg Delvis Kt DO Work Phone: [facility] 09-26-2024 15:17-0500 Diastolic blood pressure 68 mm[Hg] Delvis Kt DO Work Phone: [facility] 09-26-2024 15:17-0500 Systolic blood pressure 116 mm[Hg] Delvis Kt DO Work Phone: [facility] 08-26-2024 10:04-0400 Body mass index (BMI) [Ratio] 20.97 kg/m2 [facility] Nurse [facility] 08-26-2024 10:04-0400 Body weight 64.41 kg [facility] Nurse [facility] 08-26-2024 10:04-0400 Diastolic blood pressure 82 mm[Hg] [facility] 08-26-2024 10:04-0400 Systolic blood pressure 118 mm[Hg] [facility] 05-22-2023 08:55-0400 Body temperature 97.8 [degF] MD Sarah Nevarez Work Phone: [facility] 05-22-2023 08:55-0400 Body weight 69.85 kg MD Sarah Nevarez Work Phone: [facility] 05-22-2023 08:55-0400 Diastolic blood pressure 68 mm[Hg] MD Sarah Nevarez Work Phone: [facility] 05-22-2023 08:55-0400 Heart rate 79 /min MD Sarah Nevarez Work Phone: [facility] 05-22-2023 08:55-0400 Respiratory rate 16 /min MD Sarah Nevarez Work Phone: [facility] 05-22-2023 08:55-0400 SaO2% (BldA) [Mass fraction] 98 % MD Sarah Nevarez Work Phone: [facility] 05-22-2023 08:55-0400 Systolic blood pressure 108 mm[Hg] MD Sarah Nevarez Work Phone: [facility] 01-21-2023 14:57-0500 Body temperature 97.8 [degF] MD Sarah Nevarez Work Phone: [facility] 01-21-2023 14:57-0500 Body weight 67.2 kg MD Sarah Nevarez Work Phone: [facility] 01-21-2023 14:57-0500 Diastolic blood pressure 79 mm[Hg] MD Sarah Nevarez Work Phone: [facility] 01-21-2023 14:57-0500 Heart rate 72 /min MD Sarah Nevarez Work Phone: [facility] 01-21-2023 14:57-0500 Respiratory rate 16 /min MD Sarah Nevarez Work Phone: [facility] 01-21-2023 14:57-0500 SaO2% (BldA) [Mass fraction] 98 % MD Sarah Nevarez Work Phone: [facility] 01-21-2023 14:57-0500 Systolic blood pressure 119 mm[Hg] MD Sarah Nevarez Work Phone: [facility] 07-08-2022 13:02-0400 Body height 172.72 cm MD Amanda Rosario Work Phone: [facility] 07-08-2022 13:02-0400 Body temperature 98 [degF] MD Amanda Rosario Work Phone: [facility] 07-08-2022 13:02-0400 Body weight 67.81 kg MD Amanda Rosario Work Phone: [facility] 07-08-2022 13:02-0400 Diastolic blood pressure 71 mm[Hg] MD Amanda Rosario Work Phone: [facility] 07-08-2022 13:02-0400 Heart rate 95 /min MD Amanda Rosario Work Phone: [facility] 07-08-2022 13:02-0400 Respiratory rate 20 /min MD Amanda Rosario Work Phone: [facility] 07-08-2022 13:02-0400 SaO2% (BldA) [Mass fraction] 97 % MD Amanda Rosario Work Phone: [facility] 07-08-2022 13:02-0400 Systolic blood pressure 115 mm[Hg] MD Amanda Rosario Work Phone: [facility] 05-30-2021 14:47-0400 Body height 173 cm Price Girard Work Phone: RE-Fjfgsir-Qlcdr Main Work Phone: 05-30-2021 14:47-0400 Body mass index (BMI) [Ratio] 21.58 kg/m2 Price Gir[employer] Work Phone: FX-Bbjxplc-Esgmr Main Work Phone: 05-30-2021 14:47-0400 Body surface area Derived from formula 1.77 m2 Price Girard Work Phone: UF-Bmyulbi-Urjhv Main Work Phone: 05-30-2021 14:47-0400 Body temperature 98.6 [degF] Price Girard Work Phone: BX-Jmezpfk-Ibvjz Main Work Phone: 05-30-2021 14:47-0400 Body weight 64.6 kg Price Girard Work Phone: FS-Klwmurg-Gwaqv Main Work Phone: 05-30-2021 14:47-0400 Diastolic blood pressure 77 mm[Hg] Price Girard Work Phone: VW-Klxgtmm-Camqp Main Work Phone: 05-30-2021 14:47-0400 Heart rate 103 /min Price Girard Work Phone: YT-Umsyvez-Shfbx Main Work Phone: 05-30-2021 14:47-0400 Respiratory rate 16 /min Price Girard Work Phone: RL-Sbtyjug-Tmwer Main Work Phone: 05-30-2021 14:47-0400 SaO2% (BldA) [Mass fraction] 99 % Price Gir[employer] Work Phone: NF-Efjpcaq-Ldazv Main Work Phone: 05-30-2021 14:47-0400 Systolic blood pressure 131 mm[Hg] Price Girard Work Phone: KA-Dbwnymj-Yloxr Main Work Phone: 05-30-2021 14:47-0400 0 1 Price Girard Work Phone: PC-Pigykmu-Uvqqw Main Work Phone: Comment on above: Cristhian 1995 00:00-0400 >na< Essence 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 Encounters Encounter Date Encounter Type Care Provider Facility Start: 02-21-2025 End: 02-21-2025 Bamboo flowsheet Delvis Kt DO Work Phone: [facility] Start: 02-21-2025 End: 02-21-2025 Bamboo flowsheet Delvis Kt DO Work Phone: [facility] Start: 02-21-2025 End: 02-21-2025 ambulatory DELVIS KT Not Available Start: 02-21-2025 End: 02-21-2025 flow sheet Delvis Kt DO Work Phone: [facility] Comment on above: Third trimester preg mei; 33 weeks gestation of ; Abnormal finding on ultrasound Start: 02-09-2025 End: 02-09-2025 Bamboo flowsheet Amanda TADEO Work Phone: [facility] Start: 02-09-2025 End: 02-09-2025 Bamboo flowsheet Amanda TADEO Work Phone: [facility] Start: 02-09-2025 End: 02-09-2025 ambulatory AMANDA FRAGOSO Not Available Start: 02-09-2025 End: 02-09-2025 flow sheet Amanda TADEO Work Phone: [facility] Comment on above: 32 weeks gestation o f ; Third trimester Start: 01-25-2025 End: 01-25-2025 Bamboo flowsheet Delvis Kt DO Work Phone: [facility] Start: 01-25-2025 End: 01-25-2025 Bamboo flowsheet Delvis Kt DO Work Phone: [facility] Start: 01-25-2025 End: 01-25-2025 ambulatory DELVIS KT Not Available Start: 01-25-2025 End: 01-25-2025 flow sheet Delvis Kt DO Work Phone: [facility] Comment on above: 29 weeks gestation o f ; Third trimester ; Low hemoglobin Start: 01-11-2025 End: 01-11-2025 flow sheet Delvis Kt DO Work Phone: [facility] Comment on above: Second trimester pre gnancy; 27 weeks gestation of Start: 01-11-2025 End: 01-11-2025 ambulatory DELVIS KT Not Available Start: 01-09-2025 End: 01-09-2025 Clinisync Result Encounter Generic External Data Provider [facility] Unsolicited Start: 01-09-2025 End: 01-09-2025 Clinisync Result Encounter Generic External Data Provider [facility] Unsolicited Start: 12-28-2024 End: 12-28-2024 Bamboo flowsheet Delvis [...] Result Encounter Delvis Kt DO Work Phone: [facility] External Department Unsolicited Start: 10-11-2024 End: 10-11-2024 Office outpatient visit 15 minutes Mike Wagner MD Work Phone: [facility] Comment on above: [...] flow sheet Delvis Kt DO Work Phone: [facility] Comment on above: [...] Data Provider [facility] Unsolicited Start: 08-19-2023 End: 08-19-2023 ambulatory Amanda Abraham Facility:[facility] Start: 05-22-2023 End: 05-22-2023 ambulatory MD Sarah Nevarez Work Phone: [facility] Work Phone: Start: 05-22-2023 End: 05-22-2023 Registered Recurring MD [facility] Work [facility]: Start: 04-07-2023 End: 04-08-2023 ambulatory [...] 01-21-2023 ambulatory MD Sarah Nevarez Work Phone: [facility] Work Phone: Start: 01-21-2023 End: 01-21-2023 Registered Recurring MD Sarah Nevarez [facility] Work Phone: Start: 01-13-2023 End: 01-13-[address] DELVIS MERAZ . Facility:[facility] Start: 01-01-2023 Encounter for genera l adult medical examination without abnormal findings DR MIKE WAGNER [facility] Start: 12-31-2022 End: 01-01-[address] MIKE WAGNER Facility:[facility] Start: 12-31-2022 End: 01-01-2023 Encounter for general adult medical examination without abnormal findings DR MIKE WAGNER Facility:[facility] Start: 07-08-2022 End: 07-08-2022 Registered Recurring MD Amanda Rosario [facility] Start: 06-16-2022 End: 06-16-[address] DELVIS MERAZ . Facility:[facility] Start: 04-09-[address] AMANDA ROSARIO Facility :[facility] Start: 06-22-2021 Chart Update Price Girard Work [facility] Work Phone: Start: 06-18-2021 Essence [facility]ins Dept[facility] of D ermatology Start: 05-30-2021 Postop follow up vis it related to original px Price Girard Work Phone: TY-Lfoeoto-Adztu Main Work Phone: Procedures Date Procedure Procedure Detail Performing Clinician Start: 02-21-2025 Urnls dip stick/tabl et rgnt non-auto w/o micrscp Delvis Kt DO Work Phone: Start: 02-09-2025 Urnls dip stick/tabl et rgnt non-auto w/o micrscp Amanda TADEO Work Phone: Start: 01-25-2025 Urnls dip stick/tabl et rgnt non-auto w/o micrscp Delvis Kt DO Work Phone: Start: 01-11-2025 Urnls dip stick/tabl et rgnt non-auto w/o micrscp Delvis Kt DO Work Phone: Start: 01-09-2025 GLUCOSE 1 HOUR Delvis Fa zio DO Work Phone: Start: 12-28-2024 Urnls dip stick/tabl et rgnt [...] Amanda Rosario Work Phone: Start: 06-18-2021 Essence Elyssa david Plan of Treatment Date Care Activity Detail Author Start: 07-24-2025 Influenza vaccination Influenz a Vaccine (Season Ended) [facility] Start: 03-08-2025 End: 03-08-2025 Patient encounter procedure 03/08/2025 1:40 PM EDT Routine [facility] [address] [place] [phone] Delvis Meraz, DO [facility] [address] [facility] Start: 02-21-2025 End: 02-21-2026 US for US OB limited 1+ fetuses Imaging Routine Third trimester 33 weeks gestation of Abnormal finding on ultrasound Expected: 02/21/2025, Expires: 02/21/2026 [facility] Work Phone: Comment on above: Expected: 02/21/2025 , Expires: 02/21/2026 Start: 02-21-2025 End: 02-21-2025 Patient encounter procedure 02/21/2025 10:40 AM EDT Routine [facility] [address] [place] [id number] Delvis Meraz, [facility] [address] [facility] Start: 02-09-2025 End: 02-09-2025 Patient encounter procedure 02/09/2025 10:20 AM EDT Routine [facility] [address] [place] [id number] Amanda Fragoso PA [address] [place] [address] [facility] Start: 01-25-2025 End: 01-25-2025 Patient encounter procedure 01/25/2025 11:00 AM EST Routine [facility] [address] [place] [address] Delvis Meraz, DO [address] [place] [address] [facility] Start: 01-11-2025 End: 01-11-2025 Patient encounter procedure 01/11/2025 2:00 PM EST Routine [facility] [address] [facility] [place] [address] Delvis Meraz, DO [address] [facility] [address] [place] [address] [facility] Start: 12-28-2024 End: 12-28-2025 CBC panel - Blood by Automated count CBC Lab Routine Diabetes mellitus screening Expected: 12/28/2024 (Approximate), Expires: 12/28/2025 [facility] Work Phone: Comment on above: Expected: 12/28/2024 (Approximate), Expires: 12/28/2025 Start: 12-28-2024 End: 12-28-2025 Measurement of glucose 1 hour after glucose challenge for glucose tolerance test Glucose tolerance, 1 hour Lab Routine Diabetes mellitus screening Expected: 12/28/2024 (Approximate), Expires: 12/28/2025 [facility] Comment on above: Expected: 12/28/2024 (Approximate), Expires: 12/28/2025 Start: 12-28-2024 End: 12-28-2024 Patient encounter procedure [facility] Comment on above: Arrived Start: 12-27-2024 End: 12-27-2024 Patient encounter procedure 12/27/2024 8:40 AM EST Routine [facility] [address] [facility] [place] [phone] Delvis Meraz, DO [address] [place] [address] [facility] Start: 11-28-2024 End: 11-28-2024 Patient encounter procedure 11/28/2024 2:10 PM EST Routine [facility] [address] [facility] [place] [address] Delvis Meraz, DO [address] [place] [address] [facility] Start: 10-24-2024 End: 10-24-2024 Patient encounter procedure 10/24/2024 2:10 PM EST Routine [facility] [address] [place], [place] [address] [place] [address] Delvis Meraz, DO [address] [address] [facility] Start: 10-24-2024 End: 10-24-2025 Alpha fetoprotein, maternal Alpha fetoprotein, maternal Lab Routine Second trimester 16 weeks gestation of Expected: 10/24/2024 (Approximate), Expires: 10/24/2025 [facility] Comment on above: Expected: 10/24/2024 (Approximate), Expires: 10/24/2025 Start: 10-24-2024 End: 10-24-2025 US for US OB ANATOMY SINGLE W US OB CERVICAL LENGTH Imaging Routine Screening, , for anatomic survey Expected: 10/24/2024 (Approximate), Expires: 10/24/2025 [facility] Comment on above: Expected: 10/24/2024 (Approximate), Expires: 10/24/2025 Start: 09-26-2024 End: 09-26-2024 Patient encounter procedure 09/26/2024 2:20 PM EST Routine [facility] [address] [place] [address] [place] [phone] Delvis Meraz, DO [address] [place] [address] [facility] Start: 08-26-2024 End: 08-26-2025 ABO/Rh ABO/Rh Lab Routine Missed menses , unspecified gestational age Expected: 08/26/2024 (Approximate), Expires: 08/26/2025 [facility] Comment on above: Expected: 08/26/2024 (Approximate), Expires: 08/26/2025 Start: 08-26-2024 End: 08-26-2025 Blood type and Indirect antibody screen panel - Blood Type and screen Lab Routine Missed menses , unspecified gestational age Expected: 08/26/2024 (Approximate), Expires: 08/26/2025 [facility] Work Phone: Comment on above: Expected: 08/26/2024 (Approximate), Expires: 08/26/2025 Start: 08-26-2024 End: 08-26-2025 Drugs of abuse panel - Urine by Screen method Rapid drug screen, urine Lab Routine , unspecified gestational age Encounter for supervision of normal first in first trimester Expected: 08/26/2024 (Approximate), Expires: 08/26/2025 [facility] Comment on above: Expected: 08/26/2024 (Approximate), Expires: 08/26/2025 Start: 08-26-2024 End: 08-26-2025 US Pelvis transvaginal US OB transvaginal Imaging Routine Missed menses Expected: 08/26/2024 (Approximate), Expires: 08/26/2025 [facility] Comment on above: Expected: 08/26/2024 (Approximate), Expires: 08/26/2025 Start: 08-26-2024 End: 08-26-2024 ambulatory 08/26/2024 10:00 AM EDT Initial [facility] [address] [place] [address] [facility] Start: 08-26-2024 End: 08-26-2024 Professional / ancillary services management 08/26/2024 9:30 AM EDT Ancillary Procedure [facility] [address] [place] [address] [facility] Start: 08-23-2024 End: 08-23-2024 Patient encounter procedure 08/23/2024 10:50 AM EDT Routine [facility] [address] [place] [phone] Delvis Meraz, DO [address] [place] [address] [address] [place] [address] Arrived [facility] Comment on above: Arrived Start: 07-24-2024 Influenza vaccination Influenz a Vaccine (#1) [facility] Start: 05-23-2022 [facility] Start: 04-25-2022 [facility] Start: 03-28-2022 [facility] Start: 02-28-2022 [facility] Start: 01-31-2022 [facility] Start: 01-28-2022 [facility] Start: 12-31-2021 [facility] Start: 12-24-2021 [facility] Start: 11-29-2021 [facility] Start: 11-01-2021 [facility] Start: 10-28-2021 [facility] Start: 10-02-2021 End: 10-03-2021 [facility] Start: 09-06-2021 [facility] Start: 09-03-2021 [facility] Start: 08-08-2021 [facility] Start: 07-11-2021 [facility] Adrenocorticotropic hormone measurement [facility] Bacteria identified in Urine by Culture Urine culture Microbiology Routine Missed menses Ordered: 08/26/2024 [facility] Comment on above: Ordered: 08/26/2024 Bacteria identified in Urine by Culture Urine culture Microbiology Routine Hematuria, unspecified type Ordered: 10/24/2024 [facility] Comment on above: Ordered: 10/24/2024 Bacteria identified in Urine by Culture Urine culture Microbiology Routine Urinary tract infection without hematuria, site unspecified Ordered: 12/28/2024 [facility] Comment on above: Ordered: 12/28/2024 CBC W Auto Different ial panel - Blood CBC and differential Lab Routine Missed menses , unspecified gestational age Ordered: 08/26/2024 [facility] Comment on above: Ordered: 08/26/2024 CBC W Auto Different ial panel - Blood CBC and differential Lab Routine Low hemoglobin Ordered: 01/25/2025 [facility] Work Phone: Comment on above: Ordered: 01/25/2025 CHLAMYDIA TRACHOMATI S (GENITO/STI) CHLAMYDIA TRACHOMATIS (GENITO/STI) Lab Routine STD exposure Ordered: 10/24/2024 [facility] Comment on above: Ordered: 10/24/2024 Comprehensive metabo lic 1999 panel - Serum or Plasma [facility] Work Phone: Comprehensive metabo lic 1999 panel - Serum or Plasma [facility] Comprehensive metabo lic 1999 panel - Serum or Plasma [facility] Comprehensive metabo lic 1999 panel - Serum or Plasma [facility] CT Abdomen and Pelvi s W contrast IV [facility] Work Phone: CT Abdomen and Pelvi s W contrast IV [facility] CT Abdomen and Pelvi s W contrast IV [facility] CT Chest W contrast IV [facility] Work Phone: CT Chest W contrast IV [facility] CT Chest W contrast IV [facility] Ferritin [Mass/volum e] in Serum or Plasma [facility] Work Phone: Hemoglobin A1c/Hemoglobin.total [...] dehydrogenas e [Enzymatic activity/volume] in Unspecified specimen [facility] Work Phone: Neisseria gonorrhoea e DNA [Presence] in Unspecified specimen by PARMINDER with probe detection Neisseria gonorrhea DNA probe, direct Lab Routine STD exposure Ordered: 10/24/2024 [facility] Comment on above: Ordered: 10/24/2024 Reagin Ab [Presence] in Serum by RPR RPR Lab Routine Missed menses , unspecified gestational age Ordered: 08/26/2024 [facility] Comment on above: Ordered: 08/26/2024 Rubella antibody, IgG Rubella an tibody, IgG Lab Routine Missed menses , unspecified gestational age Ordered: 08/26/2024 [facility] Comment on above: Ordered: 08/26/2024 SURESWAB(R) ADVANCED VAGINITIS PLUS, TMA SURESWAB(R) ADVANCED VAGINITIS PLUS, TMA Pathology and Cytology Routine Vaginal discharge Ordered: 10/24/2024 [facility] Work Phone: Comment on above: Ordered: 10/24/2024 Thyrotropin [Units/v olume] in Serum or Plasma [facility] Thyroxine (T4) free [Mass/volume] in Serum or Plasma [facility] Triiodothyronine (T3 ) Free [Mass/volume] in Serum or Plasma [facility] Extremity [facility] Work Phone: [facility] Immunizations Immunization Date Immunization Notes Care Provider Molly chinchilla 07-09-2018 influenza virus vaccine, unspecified formulation Generic Provider [facility] 1995 pneumococcal conjuga te vaccine, 7 valent 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 Payers Date Payer Category Payer Unknown [id number] 2022 [facility] Blue Shield [id number] [id number] 2022 Unknown 2021 Self-pay [id number] 2021 Unknown [id number] 2021 Unknown [id number] 2019 Unknown [id number] 1997 Unknown [id number] 2.16.84 0.1.583857.3.579.2.593 1997 Unknown [id number] 2.16.84 0.1.609641.3.579.2.593 1997 Unknown [id number] 2.16.84 0.1.997244.3.579.2.593 1997 Unknown [id number] 2.16.84 0.1.528296.3.579.2.593 1997 Unknown [id number] 2.16.84 0.1.311965.3.579.2.593 1997 Unknown [id number] 2.16.84 0.1.867644.3.579.2.593 1997 Unknown [id number] 2.16.84 0.1.184552.3.579.2.593 1997 Unknown [id number] 2.16.84 0.1.100939.3.579.2.593 1997 Unknown [id number] 2.16.84 0.1.993370.3.579.2.593 1997 Unknown [id number] 2.16.84 0.1.478509.3.579.2.593 1997 Unknown [id number] 2.16.84 0.1.119506.3.579.2.1259 1997 Unknown [id number] 2.16.84 0.1.636444.3.579.2.1259 1997 Unknown [id number] 2.16.84 0.1.593680.3.579.2.9 1997 Unknown [id number] 2.16.84 0.1.563918.3.579.2.1258 1997 Unknown [id number] 2.16.84 0.1.178757.3.579.2.1258 1997 Unknown [id number] 2.16.84 0.1.013488.3.579.2.1258 1997 Unknown [id number] 2.16.84 0.1.358644.3.579.2.1258 1997 Unknown [id number] 2.16.84 0.1.004681.3.579.2.1258 1997 Unknown [id number] 2.16.84 0.1.400626.3.579.2.1258 1997 Unknown [id number] 2.16.84 0.1.330022.3.579.2.9 1959 Unknown [id number] 1959 Unknown [id number] Unknown [id number] 2.16.8 40.1.461299.3.579.2.531 Social History Date Type Detail Facility Start: 06-18-2021 Dept. 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 Start: 1995 Sex Assigned At Female [facility] Start: 07-08-2022 End: 04-10-2023 Tobacco smoking status NHIS Never smoked tobacco (finding) [facility] Start: 04-10-2023 Tobacco use and exposure Smokeless tobacco non-user [facility] Start: 02-22-2024 End: 02-09-2025 Alcoholic beverage intake Ex-drinker (finding) [facility] Start: 02-22-2024 End: 10-11-2024 History of Social function [facility] Start: 02-22-2024 End: 10-11-2024 Social connection and isolation panel [facility] Do you belong to any clubs or organizations such as latter-day groups, unions, fraternal or athletic groups, or [...] Desired Activity /State Clinical Notes 05-14-2021 to 02-21-2025 Lorri Fernandez LPN - 02/21/2025 10:40 AM Dayami Givens LPN - 02/09/2025 10:20 AM John Fernandez LPN - 01/25/2025 11:00 AM Haroldo Fernandez LPN - 01/11/2025 2:00 PM EST Note Date & Type Note Facility 02-21-2025 History of Presen t illness Narrative Reason [...] disease Paternal Grandfather Serge Diabetes Paternal Grandfather Bill SURGICAL HISTORY Past [...] nursing note reviewed. Exam conducted with a forms analysis manager present. Vitals: Estimated body mass index is 25.81 kg/m as calculated from the following: Height as of 10/11/24: 5' 9 . Weight as of this encounter: 174 lb 12.8 oz. BP: 110/60 No LMP recorded. Patient is . ASSESSMENT & PLAN ICD-10-CM 1. Third trimester Z34.93 US OB limited 1+ fetuses POCT urinalysis dipstick manually resulted 2. 33 weeks gestation of Z3A.33 US OB limited 1+ fetuses 3. Abnormal finding on ultrasound R93.89 US OB limited 1+ fetuses Return OB: Patient presents today for a routine obstetrics appointment. Patient is currently 33w5d . Patient states she is doing well but has complaints of being tired due to current . Patient has verbalizes frequent movement. labor precautions was discussed/given and patient was instructed to perform kick counts three times a day. Given order for follow up ultrasound Orders Placed This Encounter Procedures US OB limited 1+ fetuses POCT urinalysis dipstick manually resulted Follow Up: Patient is to return to office in 2 week for routine OB appointment. Documented by Lorri Fernandez LPN on behalf of: NALDO Flaherty documented in this encounter [facility] 02-09-2025 History of Presen t illness Narrative Reason for Appointment: Patient ID: Ailyn Baron is a 29 y.o. female who presents for Routine Visit Patient presents today for Return OB appointment. MEDICATIONS Current Outpatient Medications Medication Instructions iron polysaccharides (PROFE) 391.3 mg, Oral, Daily magnesium oxide (MAG-OX) 400 mg, Daily MV-Min-Fe [...] appearance. She is well-developed. Genitourinary: Vulva normal. Vaginal cuff intact. Cervix is absent. Uterus is absent. Cardiovascular: Rate and Rhythm: Normal rate and regular rhythm. Abdominal: General: Bowel sounds are normal. There [...] nursing note reviewed. Exam conducted with a forms analysis manager present. Vitals: Estimated body mass index is 25.22 kg/m as calculated from the following: Height as of 24: 5' 9 . Weight as of this encounter: 170 lb 12.8 oz. BP: 118/68 No LMP recorded. Patient is . ASSESSMENT & PLAN ICD-10-CM 1. 32 weeks gestation of Z3A.32 POCT urinalysis dipstick manually resulted 2. Third trimester Z34.93 POCT urinalysis dipstick manually resulted Return OB: Patient presents today for a routine obstetrics appointment. Patient is currently 32w0d . Patient states she is doing well but has complaints of being tired due to current . Patient has verbalizes frequent movement. labor precautions was discussed/given and patient was instructed to perform kick counts three times a day. Orders Placed This Encounter Procedures POCT urinalysis dipstick manually resulted Follow Up: Patient is to return to office in 2 week for routine OB appointment. Documented by Yumiko Givens LPN on behalf of: CARLYLE Flaherty documented in this encounter [facility] 01-25-2025 History of Presen t illness Narrative Reason for Appointment: Patient ID: Ailyn Baron is a 29 y.o. female who presents for No chief complaint on file. Patient presents today for Return OB appointment. MEDICATIONS Current Outpatient Medications Medication Instructions iron polysaccharides (PROFE) 391.3 mg, Oral, Daily magnesium oxide (MAG-OX) 400 mg, Daily MV-Min-Fe [...] nursing note reviewed. Exam conducted with a forms analysis manager present. Vitals: Estimated body mass index is 24.63 kg/m as calculated from the following: Height as of 10/11/24: 5' 9 . Weight as of this encounter: 166 lb 12.8 oz. BP: 124/78 No LMP recorded. Patient is . ASSESSMENT & PLAN ICD-10-CM 1. 29 weeks gestation of Z3A.29 POCT urinalysis dipstick manually resulted 2. Third trimester Z34.93 POCT urinalysis dipstick manually resulted Return OB: Patient presents today for a routine obstetrics appointment. Patient is currently 29w6d . Patient states she is doing well but has complaints of being tired due to current . Patient has verbalizes frequent movement. labor precautions was discussed/given and patient was instructed to perform kick counts three times a day. Orders Placed This Encounter Procedures CBC and differential POCT urinalysis dipstick manually resulted Follow Up: Patient is to return to office in 2 week for routine OB appointment. Documented by Lorri Fernandez LPN on behalf of: Delvis Meraz DO documented in this encounter [facility] 01-11-2025 History of Presen t illness Narrative Reason for Appointment: Patient ID: Ailyn Baron is a 29 y.o. female who presents for Routine Visit Patient presents today for Return OB appointment. MEDICATIONS Current Outpatient Medications Medication Instructions iron polysaccharides (PROFE) 391.3 mg, Oral, Daily magnesium oxide (MAG-OX) 400 mg, Daily MV-Min-Fe [...] nursing note reviewed. Exam conducted with a forms analysis manager present. Vitals: Estimated body mass index is 24.04 kg/m as calculated from the following: Height as of 24: 5' 9 . Weight as of this encounter: 162 lb 12.8 oz. BP: 112/58 No LMP recorded. Patient is . ASSESSMENT & PLAN ICD-10-CM 1. Second trimester Z34.92 POCT urinalysis dipstick manually resulted 2. 27 weeks gestation of Z3A.27 Return OB: Patient presents today for a routine obstetrics appointment. Patient is currently 27w6d . Patient states she is doing well but has complaints of being tired due to current . Patient has verbalizes frequent movement. labor precautions was discussed/given and patient was instructed to perform kick counts three times a day. Orders Placed This Encounter Procedures POCT urinalysis dipstick manually resulted Follow Up: Patient is to return to office in 2 week for routine OB appointment. Documented by Lorri Fernandez LPN on behalf of: Delvis Meraz DO documented in this encounter [facility] 12-28-2024 History of Presen t illness Narrative [...] disease Paternal Grandfather Bill Diabetes Paternal Grandfather Serge SURGICAL HISTORY Past [...] nursing note reviewed. Exam conducted with a forms analysis manager present. Vitals: Estimated body mass index is [...] Delvis Meraz DO documented in this encounter [facility] 11-28-2024 History of Presen t illness Narrative [...] nursing note reviewed. Exam conducted with a forms analysis manager present. Vitals: Estimated body mass index is [...] Delvis Meraz DO documented in this encounter [facility] 10-24-2024 History of Presen t illness [...] Maternal Grandfather Jorge Heart disease Paternal Grandfather eSrge Diabetes Paternal Grandfather Serge SURGICAL HISTORY Past [...] nursing note reviewed. Exam conducted with a forms analysis manager present. Vitals: Estimated body mass index is [...] Delvis Meraz DO documented in this encounter [facility] 10-11-2024 History of Presen t illness [...] 300 MG capsule documented in this encounter [facility] 09-26-2024 History of Presen t illness [...] melanoma of right lower limb, including hip ([facility]) 04/14/2023 Menstrual disorder 04/14/2023 Missed menses 04/14/2023 [...] nursing note reviewed. Exam conducted with a forms analysis manager present. Vitals: Estimated body mass index is [...] undercooked meat, and stay away from [facility]. Patient has been consulted regarding any [...] Kirsten Joy LPN on behalf of: Amanda Fragoso PA-C documented in this encounter [facility] 08-26-2024 History of Presen t illness [...] undercooked meat, and stay away from [facility]. Patient has also been advised to [...] Progress note Note Date/Time May 22, 2023 9:03[facility] [place] [address] Hem/Onc Follow Up Note - OP Signed Patient: Ailyn Baron MR#: [id number] : 1995 Acct:[id number] Age/Sex: 27 / F Type: REG RCR [...] of restaging CT CAP by phone with [employer] in October--no evidence of recurrence. Saw dermatology [...] well controlled with stool softeners as needed. Will has no new complaints. Inguinal US was [...] dyspepsia. We will coordinate parenteral iron at [facility] per her request. Normal thyroid, cortisol,and [...] trauma. She was seen by dermatology at [facility] in [place] and underwent a biopsy of the right [...] 3. Venofer for iron deficiency anemia at [facility] 03/2022 ROS Details: All systems reviewed [...] Mild Nivolumab infusion reaction in February 2022. [facility] - History Attestation statement: The following [...] (Last Reviewed 05/23/23 @ 10:52 by Amanda Rsoario MD) Grandparent Breast cancer Heart disease Father Heart disease - Social History Smoking Status: Never smoker Substance Use Type: None Home Medications & Allergies Allergies No Known Allergies Allergy (Verified 05/22/23 08:53) Home Medications alprazolam 0.25 mg tablet (Xanax) 0.25 mg PO DAILY PRN Anxiety 06/18/21 [History Confirmed 05/22/23] CXL-wtge-OS-omega 3-fat com #1 27 mg-1 mg-300 mg [...] Creatinine Clear 154.92, Sodium 136, Potassium 4.2, Qwsjtgcl583, Carbon Dioxide 26.1, Anion Gap 10.1, BUN [...] % (Auto) 79.8, Lymph % (Auto) 12.8, [place] % (Auto) 6.4, Eos % (Auto) 0.6, Baso % (Auto) 0.4, Nucleat RBC Rel Count 0.2, Neut # (Auto) 8.2 H, Lymph # (Auto) 1.3, [place] # (Auto) 0.7, Eos # (Auto) 0.1, [...] 4% with ferritin 7. Coordinated Venofer infusionsat [facility] (300mg IV x 3 doses) 03/2022 with followup CBC, serum iron profile, and ferritin in one month. Consider GI evaluation for iron deficiency. 07/09/2022: She is doing well on oral iron recommended by her parking meter servicer. She does not plan to have children anytime soon, but discussed with her parking meter servicer the best iron supplementation to be on [...] for coordination of care (as documented) and uvqj-ga-npxl counseling of patient and/or family. Dictated By: Amanda Rosario MD DD/ 1 Signed By: <Electronically signed by MD Amanda Rosario> 05/23/23 1109 [facility] Work Phone: 1(179) 104-592003-01-2023 Progress note Author Amanda Rosario [facility] January 21, 2023 8:51pm Note Date/Time January 21, 2023 3:01 pm [facility] at [address] [address] Hem/Onc Follow Up Note - OP Signed Patient: Ailyn Baron MR#: [id number] : 1995 Acct:[id number] Age/Sex: 27 / F Type: REG RCR Copies to: MD Mike Ewing MD~ Subjective Date/Time of Service: Date of Service: 01/21/2023 Time of Service: 15:00 Chief Complaint: Patient is here today for a 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 No new concerns HPI: 01/21/2023: Ailyn had review of restaging CT CAP by phone with [employer] in October--no evidence of recurrence. Saw dermatology [...] dyspepsia. We will coordinate parenteral iron at [facility] per her request. Normal thyroid, cortisol,and [...] trauma. She was seen by dermatology at [facility] in [place] and underwent a biopsy of the right [...] 3. Venofer for iron deficiency anemia at [facility] 03/2022 ROS Details: All systems reviewed [...] Mild Nivolumab infusion reaction in February 2022. [facility] - History Attestation statement: The following [...] History Family History: Family History (Last Reviewed 03/01/23 @ 20:37 by Amanda Rosario MD) Grandparent Breast cancer Heart disease Father Heart disease - Social History Smoking Status: Never smoker Substance Use Type: None Home Medications & Allergies Allergies No Known Allergies Allergy (Verified 01/21/23 14:57) Home Medications alprazolam 0.25 mg tablet (Xanax) 0.25 mg PO DAILY PRN Anxiety 06/18/21 [History Confirmed 01/21/23] XBK-qeto-HN-omega 3-fat com #1 27 mg-1 mg-300 mg [...] 4% with ferritin 7. Coordinated Venofer infusionsat [facility] (300mg IV x 3 doses) 03/2022 with followup CBC, serum iron profile, and ferritin in one month. Consider GI evaluation for iron deficiency. 07/09/2022: She is doing well on oral iron recommended by her parking meter servicer. She does not plan to have children anytime soon, but discussed with her parking meter servicer the best iron supplementation to be on [...] for coordination of care (as documented) and gzqh-xu-wnjh counseling of patient and/or family. Dictated By: Amanda Rosario MD DD/ 1500 Signed By: <Electronically signed by MD Amanda Rosario> 01/21/232050 [facility] Work Phone: 1(240) 835-572308-17-2022 Progress note Author Ale Malone [facility] July 09, 2022 1:35pm Note Date/Time July 08, 2022 1: [address] [place] [address] Cancer Center at [address] [address] Hem/Onc Follow Up Note - OP Signed with [employer] Patient: Ailyn Baron MR#: [id number] : 1995 Acct:[id number] Age/Sex: 27 / F Type: REG RCR [...] dyspepsia. We will coordinate parenteral iron at [facility] per her request. Normal thyroid, cortisol,and [...] trauma. She was seen by dermatology at [facility] in [place] and underwent a biopsy of the right [...] & no additional complaints except as documented [facility] - Medical History Medical History: Medical [...] % (Auto) 61.2, Lymph % (Auto) 26.6, [place] % (Auto) 9.7, Eos % (Auto) 1.2, Baso % (Auto) 1.3, Neut # (Auto) 3.4, Lymph # (Auto) 1.5, [place] # (Auto) 0.5, Eos# (Auto) 0.1, Baso [...] ferritin 7. Will have Venofer infusions at [facility] (300mg IV x 3 doses) with followup CBC, serum iron profile,and ferritin in one month. Consider GI evaluation for iron deficiency. 07/09/2022: She is doing well on oral iron recommended by her parking meter servicer. She does not plan to have children anytime soon, but discussed with her parking meter servicer the best iron supplementation to be on [...] for coordination of care (as documented) and omnp-gx-zfbj counseling of patient and/or family. Dictated By: Ale Malone APRN DD/ 1331 Signed By: <Electronically signed by KIKI Malone> 07/09/22 0958 [facility] Work Phone: 1([phone]) 399-221405-12-2022 Progress note Author Amanda Rosario [facility] April 03, 2022 8:56pm Note Date/Time April 02, 2022 8:30p m [facility] [place] [address] Hem/Onc Follow Up Note - OP Signed Patient: Ailyn Baron MR#: [id number] : 1995 Acct:[id number] Age/Sex: 26 / F Type: REG RCR [...] dyspepsia. We will coordinate parenteral iron at [facility] per her request. Normal thyroid, cortisol,and [...] trauma. She was seen by dermatology at [facility] in [place] and underwent a biopsy of the right [...] Mild Nivolumab infusion reaction in February 2022. [facility] - History Attestation statement: The following [...] Creatinine Clear 115.14, Sodium 136, Potassium 4.1, Hxatodnc739, Carbon Dioxide 24.5, BUN 9, Creatinine 0.76, [...] % (Auto) 46.7, Lymph % (Auto) 30.6, [place] % (Auto) 20.8, Eos % (Auto) 0.9, Baso % (Auto) 1.0, Neut # (Auto) 1.6 L, Lymph # (Auto) 1.1, [place] # (Auto) 0.7, Eos # (Auto) 0.0, [...] ferritin 7. Will have Venofer infusions at [facility] (300mg IV x 3 doses) with [...] for coordination of care (as documented) and niwt-ze-exvt counseling of patient and/or family. Dictated By: Amanda Rosario MD DD/ 28 Signed By: <Electronically signed by MD Amanda Rosario> 04/03/222055 [facility] Work Phone: 1(585) 825-499402-23-2022 Progress note Author Amanda Rosario [facility] January 15, 2022 9:15pm Note Date/Time January 15, 2022 11:55am [facility] [place] [address] Hem/Onc Follow Up Note - OP Signed Patient: Ailyn Kang MR#: [id number] : 1995 Acct:[id number] Age/Sex: 26 / F Type: REG RCR [...] trauma. She was seen by dermatology at [facility] in [place] and underwent a biopsy of the right [...] groin. Benign-appearing lymph nodes. Impression dictated by: Candice Pantoja Jr..ODavid12/31/2021 1:08 PM Assessment and Plan - TNM [...] for coordination of care (as documented) and nnvj-gm-mcth counseling of patient and/or family. Dictated By: Amanda Rosario MD DD/ 1155 Signed By: <Electronically signed by MD Amanda Rosario> 01/15/22 211 [facility] Work Phone: 1(475) 812-263711-11-2021 Progress note Author Denia [facility] October 03, 2021 10:47am Note Date/Time October 03, 2021 10:34am [facility] [place] [address] Hem/Onc Follow Up Note - OP Signed Patient: Ailyn Kang MR#: [id number] : 1995 Acct:[id number] Age/Sex: 26 / F Type: REG RCR [...] trauma. She was seen by dermatology at [facility] in [place] and underwent a biopsy of the right [...] Negative for environmental allergies and food allergies. [facility] - Medical History Medical History: Medical [...] Creatinine Clear 112.19, Sodium 139, Potassium 4.1, Gxkttovt898, Carbon Dioxide 26.4, BUN 9, Creatinine 0.78, [...] % (Auto) 66.7, Lymph % (Auto) 23.1, [place] % (Auto) 8.3, Eos % (Auto) 1.0, Baso % (Auto) 0.9, Neut # (Auto) 5.0, Lymph # (Auto) 1.7, [place] # (Auto) 0.6, Eos# (Auto) 0.1, Baso [...] be ~ early to mid December 2021. Willazfer ordering today; patient to follow up with [...] for coordination of care (as documented) and yyqm-tr-xkwk counseling of patient and/or family. Dictated By: Denia Alvares APRN DD/ 1025 Signed By: <Electronically signed by KIKI Alvares> 10/03/21 1047 [facility] Work Phone: 1([phone]) 140-469108-27-2021 Progress note Author Amanda Rosario [facility] July 19, 2021 12:54pm Note Date/Time July 18, 2021 2: 10pm [facility] at [address] [address] Hem/Onc Follow Up Note - OP Signed Patient: Ailyn Kang MR#: [id number] : 1995 Acct:[id number] Age/Sex: 26 / F Type: REG RCR [...] trauma. 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 Dictated By: Amanda Rosario MD DD/ 1409 Signed By: <Electronically signed by MD Amanda Rosario> 07/19/21 7453 [facility] Work Phone: 1([phone]) 177-394608-03-2021 Consult note Author Amanda Rosario [facility] June 24, 2021 10:09pm Note Date/Time June 24, 2021 2:1 8pm [facility] [place] [address] Hem/Onc Consult Note - OP Signed Patient: Ailyn Kang MR#: [id number] : 1995 Acct:[id number] Age/Sex: 26 / F Type: REG RCR [...] trauma. 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 Note Recipients: Price Girard MD - [id number] [] Bettina Madera PAC - [phone] [] Attestation: Note Completion: Attending AttestationI performed the procedure without a resident Electronic Signatures: Sarah Nevarez) (Signed 17-May-2021 18:18) Authored: Post-Operative Note, Chart Review, Note Completion Last Updated: 17-May-2021 18:18 by Sarah Nevarez)[facility] History of Present illness Zxhbwlhdc26-rgbu-mjg woman who underwent wide excision right posterior calf melanoma with [place] flap reconstruction as well as right inguinal and iliac sentinel lymph node biopsy on 05/17/2021. Pathology report has not yet resulted. She is recovering well.[facility] Main Work Phone: 1([phone]) 129-834006-25-2021 History of Present illness Narrative 25-year-old woman who underwent wide excision right posterior calf melanoma with [place] flap reconstruction as well as right inguinal and iliac sentinel lymph node biopsy on 05/17/2021. Pathology report has not yet resulted. She is recovering well.[facility] Work Phone: [phone]) [phone] NoteHistory & Physical Reviewed: /Lactating: Are You [...] Patient Profile - Preop v2 17-May-2021 09:27[facility]06-22-2021 NoteAccession #: [id number] Pathologist: ANUJA OLIVO MD Date of Procedure: 05/14/2021 Date Received: 05/14/2021 Submitting Physician: SARAH NEVAREZ MD Location: [facility] Copy To/Referring/Attending: ROLY EDGE DO FINAL DIAGNOSIS 2 SLIDES, [facility] #[id number] (BX: 04/23/2021) SKIN, RT POST LEG, SHAVE [...] MD. CANCER SUMMARY REPORT A. 2 SLIDES, [facility] #[id number] (BX: 04/23/2021): SPECIMEN Procedure: Biopsy, shave Specimen [...] report. Primary Tumor (pT): pT3b ADDITIONAL TESTING CORE DRILLER HELPER BLOCKS: Tumor Block: CSPL slide [id number] Electronically Signed Out By ANUJA OLIVO MD/BRR Microscopic Description: Microscopic examination performed. Clinical History: SHAVE/ BCC VS MM VS PG 1.9 X 1.9CM Specimens Submitted As: A: 2 SLIDES, [facility] #[id number] (BX: 04/23/2021) Gross Description: Received for consultation from [facility] are two slides labeled [id number] (BX: 04/23/2021) along with the corresponding pathology report. Slide/Block Description 2 SLIDES, [id number]. Keep Slides: N Slides Returned: N Personal Consult: [facility] on above:Performed By: #### D #### DermatopathologyEvaluation noteN/ADept. 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 Evaluation note* Diagnosis Onset Date Resolution Status Iron deficiency anemia acute Chiari malformation type I c hronic Edema of right lower extremity chronic Encounter for antineoplastic immunotherapy chronic Malignant melanoma of right lower leg chronic [facility] Work Phone: Evaluation note* Diagnosis Onset Date Resolution Status Chiari malformation type I c hronic Edema of right lower extremity chronic Encounter for antineoplastic immunotherapy chronic Iron deficiency anemia chron ic Malignant melanoma of right lower leg chronic [facility] Work Phone: Evaluation noteNo assessment information available [facility] Work Phone: Evaluation note* Diagnosis Missed menses [...] Hematuria, unspecified type [facility] Diagnosis Acute non-recurrent pansinusitis- Primary Second trimester state, incidental Malignant melanoma of right lower limb, including hip (CMS/HCC) [facility] Diagnosis Acute non-recurrent pansinusitis- Primary Second trimester state, incidental Malignant melanoma of right lower limb, including hip (CMS/HCC) Second trimester state, incidental 21 weeks gestation of documented in this encounter [facility]* Diagnosis Acute non-recurrent pansinusitis- Primary Second trimester state, incidental Malignant melanoma of right lower limb, including hip (CMS/HCC) 25 weeks gestation of Diabetes mellitus screening Screening for diabetes mellitus Urinary tract infection without hematuria, site unspecified documented in this encounter [facility]* Diagnosis Acute non-recurrent pansinusitis- Primary Second trimester state, incidental Malignant melanoma of right lower limb, including hip (CMS/HCC) Second trimester state, incidental 27 weeks gestation of documented in this encounter [facility]* Diagnosis Acute non-recurrent pansinusitis- Primary Second trimester state, incidental Malignant melanoma of right lower limb, including hip (CMS/HCC) 29 weeks gestation of Third trimester state, incidental Low hemoglobin documented in this encounter [facility]* Diagnosis Acute non-recurrent pansinusitis- Primary Second trimester state, incidental Malignant melanoma of right lower limb, including hip (CMS/HCC) 32 weeks gestation of Third trimester state, incidental documented in this encounter [facility]* Diagnosis Acute non-recurrent pansinusitis- Primary Second trimester state, incidental Malignant melanoma of right lower limb, including hip (CMS/HCC) Third trimester state, incidental 33 weeks gestation of Abnormal finding on ultrasound [facility] RISE Order Time Frame: 1 Day, Location: Determined By Patient * Survivourship Follow Up Time Frame: 3 Months, Location: Determined By Patient [facility] Work Phone: Progress note Author Ale Malone [facility] July 09, 2022 1:35pm Note Date/Time July 08, 2022 1: [address] [place] [address] [place] [address] Hem/Onc Follow Up Note - OP Signed with Cici Patient: Ailyn Baron MR#: [id number] : 1995 Acct:[id number] Age/Sex: 27 / F Type: REG RCR [...] dyspepsia. We will coordinate parenteral iron at [facility] per her request. Normal thyroid, cortisol,and [...] trauma. She was seen by dermatology at [facility] in [place] and underwent a biopsy of the right [...] % (Auto) 61.2, Lymph % (Auto) 26.6, [place] % (Auto) 9.7, Eos % (Auto) 1.2, Baso % (Auto) 1.3, Neut # (Auto) 3.4, Lymph # (Auto) 1.5, [place] # (Auto) 0.5, Eos# (Auto) 0.1, Baso [...] ferritin 7. Will have Venofer infusions at [facility] (300mg IV x 3 doses) with followup CBC, serum iron profile,and ferritin in one month. Consider GI evaluation for iron deficiency. 07/09/2022: She is doing well on oral iron recommended by her parking meter servicer. She does not plan to have children anytime soon, but discussed with her parking meter servicer the best iron supplementation to be on [...] for coordination of care (as documented) and [id number] counseling of patient and/or family. Dictated By: Ale Malone APRN DD/ 1331 Signed By: <Electronically signed by KIKI Malone> 07/09/22 0958 [facility] Work Phone: Progress note Author Amanda Rosario [facility] January 21, 2023 8:51pm Note Date/Time January 21, 2023 3:01 pm [facility] [place] [address] Hem/Onc Follow Up Note - OP Signed Patient: Ailyn Baron MR#: [id number] : 1995 Acct:[id number] Age/Sex: 27 / F Type: REG RCR Copies to: MD Mike Ewing MD~ Subjective Date/Time of Service: Date of Service: 01/21/2023 Time of Service: 15:00 Chief Complaint: Patient is here today for a 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 No new concerns HPI: 01/21/2023: Ailyn had review of restaging CT CAP by phone with [employer] in October--no evidence of recurrence. Saw dermatology [...] dyspepsia. We will coordinate parenteral iron at [facility] per her request. Normal thyroid, cortisol,and [...] trauma. She was seen by dermatology at [facility] in [place] and underwent a biopsy of the right [...] 3. Venofer for iron deficiency anemia at [facility] 03/2022 ROS Details: All systems reviewed [...] DAILY PRN Anxiety 06/18/21 [History Confirmed 01/21/23] [id number] 3-fat com #1 27 mg-1 mg-300 mg [...] study. Impression dictated by: Paresh Gilmore Jr., RoniODavid01/09/2023 12:04 PM Assessment and Plan - TNM [...] 4% with ferritin 7. Coordinated Venofer infusionsat [facility] (300mg IV x 3 doses) 03/2022 with followup CBC, serum iron profile, and ferritin in one month. Consider GI evaluation for iron deficiency. 07/09/2022: She is doing well on oral iron recommended by her parking meter servicer. She does not plan to have children anytime soon, but discussed with her parking meter servicer the best iron supplementation to be on [...] for coordination of care (as documented) and [id number] counseling of patient and/or family. Dictated By: Amanda Rosario MD DD/ 1500 Signed By: <Electronically signed by MD Amanda Rosario> 01/21/232050 [facility] Work Phone: Reason for referral (narrative)* [...] section and content) DATE CREATED AUTHOR 05/31/2021 [employer] DATE CREATED AUTHOR AUTHOR'S ORGANIZ ATION 06/18/2021 [facility] DATE CREATED AUTHOR AUTHOR'S ORGANIZ ATION 08/01/2021 [facility] DATE CREATED AUTHOR AUTHOR'S ORGANIZ ATION 01/18/2022 [facility] DATE CREATED AUTHOR AUTHOR'S ORGANIZ ATION 04/08/2023 [facility] DATE CREATED AUTHOR AUTHOR'S ORGANIZ ATION 09/25/2024 [facility] DATE CREATED AUTHOR AUTHOR'S ORGANIZ ATION 02/22/2025 [facility] EPIC Care Teams (unrecognized sec tion and content) Team Status: Active Member Role Status Dates Mike Wagner MD Primary Care Provider Active Team Status: Active Member Role Status Dates Amanda Rosario MD Attending Provider Active Sarah Nevarez MD Referring Provider Active Mike Wagner MD Primary Care Provider Active 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 Start Date End Date Mike Wagner MD [address] [place] [address] PCP - General Family Medicine 02/09/24 Shaikh Melendrez MD [address] [place] [address] PCP - [employer] 08/23/23 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 Start Date End Date Mike Wagner MD [address] [place] [address] PCP - General Family Medicine 02/09/24 Shaikh Melendrez MD [address] [place] [address] PCP - [employer] 08/23/23 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 Start Date End Date Mike Wagner MD [address] [place] [address] PCP - General Family Medicine 02/09/24 Shaikh Melendrez MD [address] [place] [address] PCP - [employer] 08/23/23 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 Start Date End Date Mike Wagner MD [address] [place] [address] PCP - General Family Medicine 02/09/24 Melissa Zhou NP [address] [place] [address] PCP - [employer] 08/23/24 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 Start Date End Date Mike Wagner MD [address] [place] [address] PCP - General Family Medicine 02/09/24 Melissa Zhou NP [address] [place] [address] PCP - [employer] 08/23/24 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 Start Date End Date Mike Wagner MD [address] [place] [address] PCP - General Family Medicine 02/09/24 Melissa Zhou NP [address] [place] [address] PCP - [employer] 08/23/24 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 Start Date End Date Mike Wagner MD [address] [place] [address] PCP - General Family Medicine 02/09/24 Melissa Zhou NP [address] [place] [address] PCP - [employer] 08/23/24 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 Start Date End Date Mike Wagner MD [address] [place] [address] PCP - General Family Medicine 02/09/24 Melissa Zhou NP [address] [place] [address] PCP - [employer] 08/23/24 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 Start Date End Date Mike Wagner MD [address] [place] [address] PCP - General Family Medicine 02/09/24 Shaikh Melendrez MD [address] [place] [address] PCP - [employer] 08/23/23 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 Start Date End Date Mike Wagner MD [address] [place] [address] PCP - General Family Medicine 02/09/24 Melissa Zhou NP [address] [place] [address] PCP - [employer] 08/23/24 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 Start Date End Date Mike Wagner MD [address] [place] [address] PCP - General Family Medicine 02/09/24 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 Start Date End Date Mike Wagner MD [address] [place] [address] PCP - General Family Medicine 02/09/24 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 Start Date End Date Mike Wagner MD [address] [place] [address] PCP - General Family Medicine 02/09/24 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 Start Date End Date Mike Wagner MD [address] [place] [address] PCP - General Family Medicine 02/09/24 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 Start Date End Date Mike Wagner MD [address] [place] [address] PCP - General Family Medicine 02/09/24 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 Start Date End Date Mike Wagner MD [address] [place] [address] PCP - General Family Medicine 02/09/24 Goals (unrecognized section and content) Goals [...] BE BASED ON THE PRIMARY CLINICAL RECORDS. [employer] provides no warranty or guarantee of the accuracy or completeness of information in this document.
== END 2025-03-04 10:07 | disposition home or self-care (01) ==
LOC: US 10:07
PROVIDERS: PCP Family Medicine; Visit Provider Obstetrics & Gynecology
DX: Z34.93 Encounter for supervision of normal pregnancy, unspecified, third trimester (principal); Z3A.33 33 weeks gestation of pregnancy; R93.89 Abnormal findings on diagnostic imaging of other specified body structures
CPT/HCPCS: 76816

== ENCOUNTER 2025-03-08 14:49 | Outpatient (OUT) | payer BC, SELFPAY ==
--- NOTE | 2025-03-08 15:15 | US_ITS ---
[address] [address] Patient Name: BRADY BARON MRN: [id number] date: 1995 Sex: F Assigned Patient Location: [facility] Current Patient Location: [facility] Accession/Order Number: [id number] Exam Date: 03/08/2025 16:22 Report Date: 03/08/2025 16:24 At the request of: CRUZ JOHNSON DO Procedure: US OB BPP w non-stress Biophysical profile. Reason for exam: Bilateral pelviectasis. COMPARISON: None. TECHNIQUE: Transabdominal imaging of the gravid uterus was obtained. FINDINGS: Community Marketing Coordinator reports a BPP of 8 out of 8. heart rate 1 35 bpm. DEDRICK is normal at 18.4 cm. Incidental note is made of bilateral hydroceles involving the scrotum. US/US OB BPP w non-stress IMPRESSION: BPP 8 out of 8. Bilateral hydroceles involving the scrotum. Impression dictated by: Paresh Gilmore Jr., D.O.03/08/2025 4:24 PM Dictation Location: [place] [address] Electronically authenticated by: [id number] Y Date: 03/08/2025 16:24
[2025-03-08 15:32] VITALS: BP 122/71; PULSE 105
--- NOTE | 2025-03-08 18:12 | PC.NURSE ---
Addendum entered by Jeniffer Archer 03/08/25 18:16: pink, tinged spotting. Pt 3cm/ 50% from office visit cervical exam performed prior to arriving to [facility]. Pt educated regarding spotting and if increased to return to [facility]. Original Note: Pt sent over from Dr. Meraz office for bilateral pyelectasis of fetus. Pt reports active movement. Pt states she has had scant spotting and cramping since office visit today d/t cervical exam. Pt denies cxt's or pain currently.
--- NOTE | 2025-03-08 18:25 | PC.NURSE ---
1615- Pt discharged home at this time. [facility] discharge instructions given for reference. Pt educated to return if cramping increases or cxt's felt. Pt educated to return if spotting from cervical exam increases. Pt verbalizes understanding.
--- OUTSIDE RECORDS SUMMARY | 2025-03-09 11:10 | XMS_ITS | CCD ---
Author Organization [facility] Care Team Providers Care Hvac Engineering Technician Name Role Phone Price Girard Unavailable Unavailable Unavailable Essence Blevins Unavailable Unavailable MD Amanda Rosario Attending Provider [phone] MD Sarah Leigh Referring Provider MD [...] Admitting Unavailable MD Amanda Rosario Attending Provider [phone] MD Sarah Leigh Referring Provider MD Miek Wagner Primary Care Provider [phone] Mike Wagner MD Primary Care Provider Aneesh NOE, Flores Unavailable Amanda Rosario Attending Unavailable Amanda Rosario Admitting Unavailable Sarah Leigh Referring Unavailable Mike Wagner Primary Care Unavailable Abelardo WEB DESIGNER, Melissa Unavailable KT, DELVIS Attending Unavailable KT, [...] Take 1 tablet by mouth Daily Active Wwy-Yugl-Ah-Hampton 3-Fat Com #1 (Pre-Jeanette Multivitamins/Min erals) 27-1-300 mg Capsule (4 sources) Start: 01-21-2023 Iay-Gela-Nb-Hampton 3-Fat Com #1 (Pre-Jeanette Multivitamins/Mine rals) 27-1-300 mg Capsule Active CAP PO January 21, 2023 1:00am Start: 01-21-2023 Quk-Cwzb-Zl-Om ega 3-Fat Com #1 (Pre-Jeanette Multivitamins/Minerals) 27-1-300 [...] UA Negative Negative - 4(70) +++ mg/dL [facility] Blood, UA Negative Negative - 50 Naveed/mcL [facility] Clarity, UA Clear [facility] Color, UA Yellow [facility] Glucose, UA Negative Negative - 1999(110) ++++ mg/dL [facility] Interpretation and review of laboratory results Abnormal [facility] Ketones, UA Negative Negative - 160(16) ++++ mg/dL [facility] Leukocytes, UA Positive Negative - 500+++ José Luis/mcL [facility] Nitrite, UA Negative Negative - Positive [facility] pH, UA 6 5 - 9 [facility] Protein, UA Negative Negative - 1999(20) ++++ mg/dL [facility] Spec Grav, UA 1.025 1 - 1.03 [facility] Urobilinogen, UA 1.0 0.2 - 12 mg/dL [facility] US for multiple gestation pr egnancy limitedon 03-06-2025 [place] [address] Ultrasound Report Signed Patient: AILYN BARON MR#: [id number] : 1995 Acct:[id number] Age/Sex: 29 / F ADM Date: 03/04/25 Loc: US Attending Dr: Delvis Meraz D.O. Ordering Physician: Delvis Meraz D.O. Date of Service: 03/04/25 Procedure(s): US OB follow up Accession Number(s): [id number] cc: Delvis Meraz D.O.; Mike Wagner M.D. The [place] [id number] Patient Name: AILYN BARON MRN: [id number] date: 1995 Sex: F Assigned Patient Location: US Current Patient Location: Accession/Order Number: [id number] Exam Date: 03/06/2025 08:50 Report Date: 03/06/2025 [...] Lorri Barros M.D.03/06/2025 8:54 AM Dictation Location: [place] [address] Electronically authenticated by: [id number] Y Date: 03/06/2025 08:54 Dictated By: Lorri Barros M.D. Signed By: 03/06/25 0857 DD/ 0854 TD/TT: Sole Sewer Hand: [facility] Radiology, Radiologi MD maria elena - 03/06/2025 [place] [address] Ultrasound Report Signed Patient: AILYN BARON MR#: [id number] : 1995 Acct:[id number] Age/Sex: 29 / F ADM Date: 03/04/25 Loc: US Attending Dr: Delvis Meraz D.O. Ordering Physician: Delvis Meraz D.O. Date of Service: 03/04/25 Procedure(s): US OB follow up Accession Number(s): [id number] cc: Delvis Meraz D.O.; Mike Wagner M.D. The [address] [address] Patient Name: AILYN BARON MRN: [facility]:[id number] date: 1995 Sex: F Assigned Patient Location: US Current Patient Location: Accession/Order Number: [id number] Exam Date: 03/06/2025 08:50 Report Date: 03/06/2025 [...] Lorri Barros M.D.03/06/2025 8:54 AM Dictation Location: [place] [address] Electronically authenticated by: [id number] Y Date: 03/06/2025 08:54 Dictated By: Lorri Barros M.D. Signed By: 03/06/25 0857 DD/ 0854 TD/TT: Sole Sewer Hand: [facility] Radiology Study observation (narrative) [facility] US for multiple gestation pr egnancy limitedOrdered By: Radiologist Radiology on 03-06-2025 [facility] Work Phone: Urinalysis macro (dipstick) panel (U)on 02-21-2025 Bilirubin, UA Negative Negative - 4(70) +++ mg/dL [facility] Blood, UA Negative Negative - 50 Naveed/mcL [facility] Clarity, UA Clear [facility] Color, UA Yellow [facility] Glucose, UA Negative Negative - 1999(110) ++++ mg/dL [facility] Interpretation and review of laboratory results Normal [facility] Ketones, UA Negative Negative - 160(16) ++++ mg/dL [facility] Leukocytes, UA Negative Negative - 500+++ José Luis/mcL [facility] Nitrite, UA Negative Negative - Positive [facility] pH, UA 7 5 - 9 [facility] Protein, UA Negative Negative - 2000(20) ++++ mg/dL [facility] Spec Grav, UA 1.02 1 - 1.03 [facility] Urobilinogen, UA 0.2 0.2 - 12 mg/dL [facility] Urinalysis macro (dipstick) panel (U)on 02-09-2025 Bilirubin, UA Negative Negative - 4(70) +++ mg/dL [facility] Blood, UA Negative Negative - 50 Naveed/mcL [facility] Clarity, UA Clear [facility] Color, UA Yellow [facility] Glucose, UA Negative Negative - 1999(110) ++++ mg/dL [facility] Interpretation and review of laboratory results Abnormal [facility] Ketones, UA Negative Negative - 160(16) ++++ mg/dL [facility] Leukocytes, UA Positive Negative - 500+++ José Luis/mcL [facility] Comment on above: small Nitrite, UA Negative Negative - Positive [facility] pH, UA 7.5 5 - 9 [facility] Protein, UA Negative Negative - 1999(20) ++++ mg/dL [facility] Spec Grav, UA 1.015 1 - 1.03 [facility] Urobilinogen, UA 0.2 0.2 - 12 mg/dL [facility] Urinalysis macro (dipstick) panel (U)on 01-25-2025 Bilirubin, UA Negative Negative - 4(70) +++ mg/dL [facility] Blood, UA Negative Negative - 50 Naveed/mcL [facility] Clarity, UA Clear [facility] Color, UA Yellow [facility] Glucose, UA Negative Negative - 1999(110) ++++ mg/dL [facility] Interpretation and review of laboratory results Normal [facility] Ketones, UA Negative Negative - 160(16) ++++ mg/dL [facility] Leukocytes, UA Negative Negative - 500+++ José Luis/mcL [facility] Nitrite, UA Negative Negative - Positive [facility] pH, UA 7 5 - 9 [facility] Protein, UA Negative Negative - 1999(20) ++++ mg/dL [facility] Spec Grav, UA 1.015 1 - 1.03 [facility] Urobilinogen, UA 0.2 0.2 - 12 mg/dL [facility] Urinalysis macro (dipstick) panel (U)on 01-11-2025 Bilirubin, UA Negative Negative - 4(70) +++ mg/dL [facility] Blood, UA Negative Negative - 50 Naveed/mcL [facility] Clarity, UA Clear [facility] Color, UA Yellow [facility] Glucose, UA Negative Negative - 1999(110) ++++ mg/dL [facility] Interpretation and review of laboratory results Abnormal [facility] Ketones, UA Positive Negative - 160(16) ++++ mg/dL [facility] Comment on above: trace Leukocytes, UA Negative Negative - 500+++ José Luis/mcL [facility] Nitrite, UA Negative Negative - Positive [facility] pH, UA 7 5 - 9 [facility] Protein, UA Negative Negative - 1999(20) ++++ mg/dL [facility] Spec Grav, UA 1.02 1 - 1.03 [facility] Urobilinogen, UA 0.2 0.2 - 12 mg/dL [facility] GLUCOSE 1 HOURon 01-09-2025 Glucose [Mass/Vol] 97 mg/dL NINF - 13 0 mg/dL [facility] Urinalysis macro (dipstick) panel (U)on 12-28-2024 Bilirubin, UA Negative Negative - 4(70) +++ mg/dL [facility] Blood, UA Positive Negative - 50 Naveed/mcL [facility] Clarity, UA Clear [facility] Color, UA Yellow [facility] Glucose, UA Negative Negative - 1999(110) ++++ mg/dL [facility] Interpretation and review of laboratory results Abnormal [facility] Ketones, UA Negative Negative - 160(16) ++++ mg/dL [facility] Leukocytes, UA Negative Negative - 500+++ José Luis/mcL [facility] Nitrite, UA Negative Negative - Positive [facility] pH, UA 6 5 - 9 [facility] Protein, UA Positive Negative - 1999(20) ++++ mg/dL [facility] Spec Grav, UA 1.03 1 - 1.03 [facility] Urobilinogen, UA 1.0 0.2 - 12 mg/dL [facility] US OB CERVICAL LENGTHon [facility] [address] [place] [address] Ultrasound Report Signed Patient: AILYN BARON MR#: [id number] : 1995 Acct:[id number] Age/Sex: 29 / F ADM Date: 12/26/24 Loc: US Attending Dr: Delvis Meraz D.O. Ordering Physician: Delvis Meraz D.O. Date of Service: 12/26/24 Procedure(s): US OB cervical length Accession Number(s): [id number] cc: Delvis Meraz D.O.; Mike Wagner M.D. The [place] [address] Patient Name: AILYN BARON MRN: [facility]:[id number] date: 1995 Sex: F Assigned Patient Location: US Current Patient Location: ED.MAIN Accession/Order Number: [id number] Exam Date: 12/26/2024 15:30 Report Date: 12/27/2024 [...] M.D. Signed By: 12/27/24922 DD/ 0 TD/TT: Sole Sewer Hand: [facility] Radiology, Radiologi MD maria elena - 12/27/2024 [place] [address] Ultrasound Report Signed Patient: AILYN BARON MR#: [id number] : 1995 Acct:[id number] Age/Sex: 29 / F ADM Date: 12/26/24 Loc: US Attending Dr: Delvis Meraz D.O. Ordering Physician: Delvis Meraz D.O. Date of Service: 12/26/24 Procedure(s): US OB cervical length Accession Number(s): [id number] cc: Delvis Meraz D.O.; Mike Wagner M.D. [place] [address] Patient Name: AILYN BARON MRN: [id number] date: 1995 Sex: F Assigned Patient Location: US Current Patient Location: ED.MAIN Accession/Order Number: [id number] Exam Date: 12/26/2024 15:30 Report Date: 12/27/2024 [...] M.D. Signed By: 12/27/24922 DD/ 0 TD/TT: Sole Sewer Hand: [facility] Radiology Study observation (narrative) [facility] US OB CERVICAL LENGTHOrdered By: Radiologist Radiology on 12-27-2024 [facility] Work Phone: Urinalysis macro (dipstick) panel (U)on 11-28-2024 Bilirubin, UA Negative Negative - 4(70) +++ mg/dL [facility] Blood, UA Positive Negative - 50 Naveed/mcL [facility] Comment on above: trace Clarity, UA Clear [facility] Color, UA Yellow [facility] Glucose, UA Negative Negative - 1999(110) ++++ mg/dL [facility] Interpretation and review of laboratory results Abnormal [facility] Ketones, UA Negative Negative - 160(16) ++++ mg/dL [facility] Leukocytes, UA Negative Negative - 500+++ José Luis/mcL [facility] Nitrite, UA Negative Negative - Positive [facility] pH, UA 6.5 5 - 9 [facility] Protein, UA Negative Negative - 1999(20) ++++ mg/dL [facility] Spec Grav, UA 1.025 1 - 1.03 [facility] Urobilinogen, UA 0.2 0.2 - 12 mg/dL [facility] No Panel Informationon 10-26 STAPHYLOCOCCUS EPIDERMIDIS, HAEMOLYTICUS, LUGDUNENSIS, SAPROPHYTICUS (URINA 0 [facility] STAPHYLOCOCCUS EPIDERMIDIS, HAEMOLYTICUS, LUGDUNENSIS, SAPROPHYTICUS (URINA Not detected [facility] URINARY TRACT INFECTION (HTR X)on 10-26-2024 ACINETOBACTER BAUMANII 0 NO [facility] ACINETOBACTER BAUMANII Not detected [facility] STEVEN ALBICANS, PARAPSILOSIS, TROPICALIS 0 [facility] STEVEN ALBICANS, PARAPSILOSIS, TROPICALIS Not detected [facility] STEVEN GLABRATA 0 [facility] STEVEN GLABRATA Not detected [facility] STEVEN KRUSEI 0 [facility] STEVEN KRUSEI Not detected [facility] CITROBACTER FREUNDII 0 [facility] CITROBACTER FREUNDII Not detected NO [facility] ENTEROBACTER AEROGENES, CLOACAE 0 [facility] ENTEROBACTER AEROGENES, CLOACAE Not detected [facility] ENTEROCOCCUS FAECALIS, FAECIUM 0 [facility] ENTEROCOCCUS FAECALIS, FAECIUM Not detected [facility] ESCHERICHIA COLI 0 [facility] ESCHERICHIA COLI Not detected [facility] KLEBSIELLA PNEUMONIAE, OXYTOCA 0 [facility] KLEBSIELLA PNEUMONIAE, OXYTOCA Not detected [facility] MORGANELLA MORGANII 0 [facility] MORGANELLA MORGANII Not detected [facility] PROTEUS MIRABILIS, VULGARIS 0 [facility] PROTEUS MIRABILIS, VULGARIS Not detected [facility] PSEUDOMONAS AERUGINOSA 0 NO [facility] PSEUDOMONAS AERUGINOSA Not detected [facility] SERRATIA MARCESCENS 0 [facility] SERRATIA MARCESCENS Not detected [facility] STAPHYLOCOCCUS AUREUS 0 [facility] STAPHYLOCOCCUS AUREUS Not detected [facility] STREPTOCOCCUS AGALACTIAE (GROUP B STREP) 0 [facility] STREPTOCOCCUS AGALACTIAE (GROUP B STREP) Not detected [facility] STREPTOCOCCUS PYOGENES (GROUP A STREP) 0 [facility] STREPTOCOCCUS PYOGENES (GROUP A STREP) Not detected [facility] Urinalysis macro (dipstick) panel (U)on 10-24-2024 Bilirubin, UA Negative Negative - 4(70) +++ mg/dL [facility] Blood, UA Positive Negative - 50 Naveed/mcL [facility] Clarity, UA Clear [facility] Color, UA Yellow [facility] Glucose, UA Negative Negative - 1999(110) ++++ mg/dL [facility] Interpretation and review of laboratory results Normal [facility] Ketones, UA Negative Negative - 160(16) ++++ mg/dL [facility] Leukocytes, UA Negative Negative - 500+++ José Luis/mcL [facility] Nitrite, UA Negative Negative - Positive [facility] pH, UA 5.5 5 - 9 [facility] Protein, UA Negative Negative - 1999(20) ++++ mg/dL [facility] Spec Grav, UA 1.02 1 - 1.03 [facility] Urobilinogen, UA 1.0 0.2 - 12 mg/dL [facility] Urinalysis macro (dipstick) panel (U)on 09-26-2024 Bilirubin, UA Negative Negative - 4(70) +++ mg/dL [facility] Blood, UA Negative Negative - 50 Naveed/mcL [facility] Clarity, UA Clear [facility] Color, UA Yellow [facility] Glucose, UA Negative Negative - 1999(110) ++++ mg/dL [facility] Interpretation and review of laboratory results Normal [facility] Ketones, UA Negative Negative - 160(16) ++++ mg/dL [facility] Leukocytes, UA Negative Negative - 500+++ José Luis/mcL [facility] Nitrite, UA Negative Negative - Positive [facility] pH, UA 5.5 5 - 9 [facility] Protein, UA Negative Negative - 1999(20) ++++ mg/dL [facility] Spec Grav, UA 1.02 1 - 1.03 [facility] Urobilinogen, UA 0.2 0.2 - 12 mg/dL [facility] MLR HEMOGLOBIN A1Con 024 Glucose [Mass/Vol] 91 mg/dL [facility] HbA1c (Bld) [Mass fraction] 4.8 % 4.5 - 6.2 % [facility] Comment on above: ADA RECOMMENDED LIMI T 4.0 - 6.0 ADA THERAPEUTIC TARGET < 7.0 ACTION SUGGESTED > 7.[facility] test[facility] Ql (U)o n 08-26-2024 Interpretation and review of laboratory results Abnormal [facility] Preg Test, Ur Positive [facility] Urinalysis macro (dipstick) panel (U)on 08-26-2024 Bilirubin, UA Negative Negative - 4(70) +++ mg/dL [facility] Blood, UA Negative Negative - 50 Naveed/mcL [facility] Clarity, UA Clear [facility] Color, UA Yellow [facility] Glucose, UA Negative Negative - 1999(110) ++++ mg/dL [facility] Interpretation and review of laboratory results Normal [facility] Ketones, UA Negative Negative - 160(16) ++++ mg/dL [facility] Leukocytes, UA Negative Negative - 500+++ José Luis/mcL [facility] Nitrite, UA Negative Negative - Positive [facility] pH, UA 7.0 5 - 9 [facility] Protein, UA Negative Negative - 1999(20) ++++ mg/dL [facility] Spec Grav, UA 1.025 1 - 1.03 [facility] Urobilinogen, UA 0.2 0.2 - 12 mg/dL [facility] PREG QUANT HCGon 08-04- 024 HCG QUANTITATIVE 1850 mIU/mL [facility] Comment on above: 5-50 0.2-1 WEEK 50-500 1-2 WEEKS 100-5,000 2-3 WEEKS 500-10,000 3-4 WEEKS 1,000-50,000 4-5 WEEKS 10,000-100,000 5-6 WEEKS 15,000-200,000 6-8 WEEKS 10,000-100,000 2-3 MON[facility]ANT HCGon 024 HCG QUANTITATIVE 824 mIU/mL [facility] Comment on above: 5-50 0.2-1 WEEK 50-500 1-2 WEEKS 100-5,000 2-3 WEEKS 500-10,000 3-4 WEEKS 1,000-50,000 4-5 WEEKS 10,000-100,000 5-6 WEEKS 15,000-200,000 6-8 WEEKS 10,000-100,000 2-3 MONTHS [facility] Alanine aminotransferase [En zymatic activity/volume] in Serum or PlasmaOrdered By: Amanda Rosario on 05-20-2023 ALT [Catalytic activity/Vol] 9 U/L 7-52 [facility] Albumin [Mass/volume] in Ser um or Plasma by Bromocresol green (BCG) dye binding methoOrdered By: Amanda Rosario on 05-20-2023 Albumin BCG dye [Mass/Vol] 3.8 g/dL 3.5-5.7 [facility] Alkaline phosphatase [Enzyma tic activity/volume] in Serum or PlasmaOrdered By: Amanda Rosario on 05-20-2023 ALP [Catalytic activity/Vol] 52 U/L 34-104 [facility] Aspartate aminotransferase [ Enzymatic activity/volume] in Serum or PlasmaOrdered By: Amanda Rosario on 05-20-2023 AST [Catalytic activity/Vol] 14 U/L 13-39 [facility] Basophils Auto (Bld) [#/Vol] Ordered By: Amanda Rosario on 05-20-2023 Basophils (Bld) [#/Vol] 0.0 10*3/uL 0.0-0.2 [facility] Basophils/100 WBC Auto (Bld) Ordered By: Amanda Rosario on 05-20-2023 Basophils/100 WBC (Bld) 0.4 % . [facility] Bilirubin.total [Mass/volume ] in Serum or PlasmaOrdered By: Amanda Rosario on 05-20-2023 Bilirubin [Mass/Vol] 0.5 mg/dL 0.3-1.0 [facility] Calcium [Mass/volume] in Ser um or PlasmaOrdered By: Amanda Rosario on 05-20-2023 Calcium [Mass/Vol] 8.5 mg/dL 8.6-10.3 [facility] Carbon dioxide, total [Moles /volume] in Serum or PlasmaOrdered By: Amanda Rosario on 05-20-2023 CO2 [Moles/Vol] 26.1 mmol/L 21.0-31.0 [facility] Chloride [Moles/volume] in S [place] or PlasmaOrdered By: Amanda Rosario on 05-20-2023 Chloride [Moles/Vol] 104 mmol/L 98-107 [facility] Creatinine [Mass/volume] in Serum or PlasmaOrdered By: Amanda Rosario on 05-20-2023 Creatinine [Mass/Vol] 0.56 mg/dL 0.60-1.20 [facility] Eosinophils Auto (Bld) [#/Vo l]Ordered By: Amanda Rosario on 05-20-2023 Eosinophils (Bld) [#/Vol] 0.1 10*3/uL 0.0-0.45 [facility] Eosinophils/100 WBC Auto (Bl d)Ordered By: Amanda Rosario on 05-20-2023 Eosinophils/100 WBC (Bld) 0.6 % . [facility] Erythrocyte distribution wid th Auto (RBC) [Ratio]Ordered By: Amanda Rosario on 05-20-2023 Erythrocyte distribution width (RBC) [Ratio] 13.1 % 11.9-15.3 [facility] Globulin Calc (S) [Mass/Vol] Ordered By: Amanda Rosario on 05-20-2023 Globulin (S) [Mass/Vol] 2.3 g/dL [facility] Glucose [Mass/volume] in Ser um or PlasmaOrdered By: Amanda Rosario on 05-20-2023 Glucose [Mass/Vol] 72 mg/dL 70-100 [facility] Comment on above: ADA recommended refe rence rangeRandom Glucose Reference Range is dependent on time and content of last meal. Glucose of more than 200 mg/dL in a nonstressed, ambulatory subject supports the diagnosis of Diabetes Mellitus. Hematocrit Auto (Bld) [Volum e fraction]Ordered By: Amanda Rosario on 05-20-2023 Hematocrit (Bld) [Volume fraction] 34.7 % 34.0-46.4 [facility] Hemoglobin [Mass/volume] in BloodOrdered By: Amanda Rosario on 05-20-2023 Hemoglobin (Bld) [Mass/Vol] 12.0 g/dL 11.8-15.4 [facility] Leukocytes [#/volume] correc yanira for nucleated erythrocytes in Blood by Automated counOrdered By: Amanda Rosario on 05-20-2023 WBC corrected for nucl RBC Auto (Bld) [#/Vol] 10.3 10*3/uL 3.8-11.6 [facility] Lymphocytes Auto (Bld) [#/Vo l]Ordered By: Amanda Rosario on 05-20-2023 Lymphocytes (Bld) [#/Vol] 1.3 10*3/uL 1.00-4.8 [facility] Lymphocytes/100 WBC Auto (Bl d)Ordered By: Amanda Rosario on 05-20-2023 Lymphocytes/100 WBC (Bld) 12.8 % . [facility] MCH Auto (RBC) [Entitic mass ]Ordered By: Amanda Rosario on 05-20-2023 MCH (RBC) [Entitic mass] 31.5 pg 24.7-34.3 [facility] MCHC Auto (RBC) [Mass/Vol]Or dered By: Amanda Rosario on 05-20-2023 MCHC (RBC) [Mass/Vol] 34.6 g/dL 32.0-35.0 [facility] MCV Auto (RBC) [Entitic vol] Ordered By: Amanda Rosario on 05-20-2023 MCV (RBC) [Entitic vol] 91.1 fL 80-100 [facility] Monocytes Auto (Bld) [#/Vol] Ordered By: Amanda Rosario on 05-20-2023 Monocytes (Bld) [#/Vol] 0.7 10*3/uL 0.0-0.8 [facility] Monocytes/100 WBC Auto (Bld) Ordered By: Amanda Rosario on 05-20-2023 Monocytes/100 WBC (Bld) 6.4 % . [facility] Neutrophils Auto (Bld) [#/Vo l]Ordered By: Amanda Rosario on 05-20-2023 Neutrophils (Bld) [#/Vol] 8.2 10*3/uL 1.8-7.7 [facility] Neutrophils/100 WBC Auto (Bl d)Ordered By: Amanda Rosario on 05-20-2023 Neutrophils/100 WBC (Bld) 79.8 % . [facility] No Panel InformationOrdered By: Amanda Rosario on 05-20-2023 Adrenocorticotropic Hormone 10.8 pg/mL 7.2-63.3 [facility] Comment on above: ACTH reference inter cruz for samples collected between 7 and10 AM.Performed at: [facility] [id number] Director: Sai Smalls PhD, Phone: [phone] Estimated GFR (CKD-EPI) > 60.0 mL/Min [facility] Creatinine Clearance (Chem 154.92 [facility] Nucleated erythrocytes [Pres ence] in Blood by Automated countOrdered By: Amanda Rosario on 05-20-2023 Nucleated RBC Auto Ql (Bld) 0.2 /100{WBC} 0-0.5 [facility] Platelet mean volume Auto (B ld) [Entitic vol]Ordered By: Amanda Rosario on 05-20-2023 Platelet mean volume (Bld) [Entitic vol] 7.4 fL 6.3-10.7 [facility] Platelets Auto (Bld) [#/Vol] Ordered By: Amanda Rosario on 05-20-2023 Platelets (Bld) [#/Vol] 256 10*3/uL 150-450 [facility] Potassium [Moles/volume] in Serum or PlasmaOrdered By: Amanda Rosario on 05-20-2023 Potassium [Moles/Vol] 4.2 mmol/L 3.5-5.1 [facility] Protein [Mass/volume] in Ser um or PlasmaOrdered By: Amanda Rosario on 05-20-2023 Protein [Mass/Vol] 6.1 g/dL 6.4-8.9 [facility] RBC Auto (Bld) [#/Vol]Ordere d By: Amanda Rosario on 05-20-2023 RBC (Bld) [#/Vol] 3.81 10*6/uL 3.60-5.00 [facility] Serum or plasma albumin/glob ulin mass ratioOrdered By: Amanda Rosario on 05-20-2023 Albumin/Globulin [Mass ratio] 1.7 {ratio} [facility] Serum or plasma anion gap de terminationOrdered By: Amanda Rosario on 05-20-2023 Anion gap [Moles/Vol] 10.1 mmol/L 6.0-15.0 [facility] Sodium [Moles/volume] in Ser um or PlasmaOrdered By: Amanda Rosario on 05-20-2023 Sodium [Moles/Vol] 136 mmol/L 136-145 [facility] Thyrotropin [Units/volume] i n Serum or PlasmaOrdered By: Amanda Rosario on 05-20-2023 TSH Qn 1.31 m[IU]/L 0.45-5.33 [facility] Thyroxine (T4) free [Mass/vo lume] in Serum or PlasmaOrdered By: Amanda Rosario on 05-20-2023 Free T4 [Mass/Vol] 0.86 ng/dL 0.61-1.12 [facility] Triiodothyronine (T3) Free [ Mass/volume] in Serum or PlasmaOrdered By: Amanda Rosario on 05-20-2023 Free T3 [Mass/Vol] 2.91 pg/mL 2.50-3.90 [facility] Urea nitrogen [Mass/volume] in Serum or PlasmaOrdered By: Amanda Rosario on 05-20-2023 Urea nitrogen [Mass/Vol] 10 mg/dL 7-25 [facility] WBC Auto (Bld) [#/Vol]Ordere d By: Amanda Rosario on 05-20-2023 WBC (Bld) [#/Vol] 10.3 10*3/uL 3.8-11.6 [facility] HEP B SURFACE ANTIGEN SCREEN on 04-08-2023 HBsAg Screen Negative Normal Negative [facility] Comment on above: Performed By: #### T SH #### [facility] [address] [place] [address] [id number] [address] Beth Pineda HEPATITIS C VIRUS AB W/ REFL EX QUANTon 04-08-2023 HCV AB Non-Reactive Normal Non Reactive [facility] Comment on above: Performed By: #### H CVPCRR #### [facility] [address] [place] [address] Dr. Beth Pineda HIV 1 AND 2 WITH REFLEXon HIV Screen 4th Generation wRfx Non-Reactive Normal Non Reactive [facility] Comment on above: Result Comment: HIV Negative HIV-1/HIV-2 antibodies and HIV-1 p24 antigen were NOT detected. There is no laboratory evidence of HIV infection. Performed By: #### H IV12 #### [facility] [address] [place] [address] Dr. Beth Pineda RPR QUANTon 04-08-2023 Rapid Plasma Reagin, Quant Non-Reactive Normal NonRea<1:1 [facility] Comment on above: Result Comment: Plea se Note: This test does not meet current guidelines for screening and diagnosis of syphilis. This test is intended for following treatment response in patients being treated for syphilis infection. To screen for syphilis infection, a reflex cascade that includes both RPR and a treponema-specific assay should be utilized, such as Treponema pallidum (Syphilis) Screening [place] (814434) or Rapid Plasma Reagin (RPR) Test With Reflex to Quantitative RPR and Confirmatory Treponema pallidum Antibodies (299771). Performed By: #### R PRQ #### [facility] [address] [place] [address] Dr. Beth Pineda RUBELLA AB IGGon 04-08-2023 Rubella Antibodies, IgG 1.35 index Normal Immu ne >0.99 [facility] Comment on above: Result Comment: Non- immune <0.90 Equivocal 0.90 - 0.99 Immune >0.99 Performed By: #### R UBIGG #### [facility] [address] [place] [address] Dr. Beth Pineda BOX TEST SENT OUTon 04-07-20 SENT TO REF LAB 04/07/23 Normal [facility] Comment on above: Performed By: #### B OX #### [facility] [address] [place] [address] Dr. Beth Pineda CBC AUTO DIFFon 04-07-2023 BASO # 0.1 103/ul Normal 0.0-0.1 [facility] Comment on above: Performed By: #### C BC #### [facility] [address] [place] [address] Dr. Beth Pineda Basophils/100 WBC (Bld) 0.7 % Normal 0.2-2.0 [facility] Comment on above: Performed By: #### C BC #### [facility] [address] [place] [address] Dr. Beth Pineda EO # 0.1 103/ul Normal 0.0-0.7 [facility] Comment on above: Performed By: #### C BC #### [facility] [address] [place] [address] Dr. Beth Pineda Eosinophils/100 WBC (Bld) 1.1 % Normal 0.9-7.0 [facility] Comment on above: Performed By: #### C BC #### [facility] [address] [place] [address] Dr. Beth Pineda Erythrocyte distribution width (RBC) [Ratio] 12.5 % Normal 11.0-15.0 [facility] Comment on above: Performed By: #### C BC #### [facility] [address] [place] [address] Dr. Beth Pineda Hematocrit (Bld) [Volume fraction] 37.8 % Normal 36.0-48.0 [facility] Comment on above: Performed By: #### C BC #### [facility] [address] [place] [address] Dr. Beth Pineda Hemoglobin (Bld) [Mass/Vol] 13.1 g/dL Normal 12.0-16.0 [facility] Comment on above: Performed By: #### C BC #### [facility] [address] [place] [address] Dr. Beth Pineda IG # 0.02 10e3/ul Normal 0.00-0.03 [facility] Comment on above: Performed By: #### C BC #### [facility] [address] [place] [address] Dr. Beth Pineda IG % 0.3 % Normal 0.0-0.5 [facility] Comment on above: Performed By: #### C BC #### [facility] [address] [address] [address] Beth Pineda LYMPH # 1.5 103/ul Normal 1.2-3.8 [facility] Comment on above: Performed By: #### C BC #### [facility] [address] [address] [address] Beth Pineda Lymphocytes/100 WBC (Bld) 19.9 % Critically low 20.5-60.0 [facility] Comment on above: Performed By: #### C BC #### [facility] [address] [place] [address] Dr. Beth Pineda MANUAL DIFF REQ NO Normal [facility] Comment on above: Performed By: #### C BC #### [facility] [address] [place] [address] Dr. Beth Pineda MCH (RBC) [Entitic mass] 31.3 pg Normal 26.7-34.0 [facility] Comment on above: Performed By: #### C BC #### [facility] [address] [place] [address] Dr. Beth Pineda MCHC (RBC) [Mass/Vol] 34.7 g/dL Normal 29.9-35.2 [facility] Comment on above: Performed By: #### C BC #### [facility] [address] [place] [address] Dr. Beth Pineda MCV (RBC) [Entitic vol] 90.2 fL Normal 81.0-99.0 [facility] Comment on above: Performed By: #### C BC #### [facility] [address] [place] [address] Dr. Beth Pineda MONO # 0.5 103/ul Normal 0.3-0.8 [facility] Comment on above: Performed By: #### C BC #### [facility] [address] [place] [address] Dr. Beth Pineda Monocytes/100 WBC (Bld) 6.1 % Normal 1.7-12.0 [facility] Comment on above: Performed By: #### C BC #### [facility] [address] [place] [address] Dr. Beth Pineda NEUT # 5.4 103/ul Normal 1.4-6.5 [facility] Comment on above: Performed By: #### C BC #### [facility] [address] [place] [address] Dr. Beth Pineda Neutrophils/100 WBC (Bld) 71.9 % Normal 43.0-75.0 [facility] Comment on above: Performed By: #### C BC #### [facility] [address] [place] [address] Dr. Beth Pineda Platelet mean volume (Bld) [Entitic vol] 8.9 fL Critically low 9.5-13.5 [facility] Comment on above: Performed By: #### C BC #### [facility] [address] [place] [address] Dr. Beth Pineda PLT 272 103/ul Normal 150-450 [facility] Comment on above: Performed By: #### C BC #### [facility] [address] [place] [address] Dr. Beth Pineda RBC 4.19 106/ul Critically low 4.20-5.40 [facility] Comment on above: Performed By: #### C BC #### [facility] [address] [place] [address] Dr. Beth Pineda WBC 7.5 103/ul Normal 4.0-11.0 [facility] Comment on above: Performed By: #### C BC #### [facility] [address] [place] [address] Dr. Beth Pineda CULTURE URINEon 04-07-2023 CULTURE URINE Culture Observations : NO GROWTH. Normal [facility] Comment on above: Performed By: #### T SH #### [facility] [address] [place] [address] Dr. Beth Pineda GLYCOHEMOGLOBIN A1Con 2022 ADA RECOMMENDATION SEE BELOW Normal [facility] Comment on above: Result Comment: ADA RECOMMENDED LIMIT 4.0 - 6.0 ADA THERAPEUTIC TARGET < 7.0 ACTION SUGGESTED > 7.0 Performed By: #### A 1C #### [facility] [address] [address] [address] Beth Pineda Glucose [Mass/Vol] 82 mg/dL Normal [facility] Comment on above: Performed By: #### A 1C #### [facility] [address] [place], [place] [address] Dr. Beth Pineda HbA1c (Bld) [Mass fraction] 4.5 % Normal 4.5-6.2 [facility] Comment on above: Performed By: #### A 1C #### [facility] [address] [address] [address] Beth Pineda TSHon 04-07-2023 TSH 2.191 uIU/mL Normal 0.358-3.740 [facility] Comment on above: Performed By: #### T SH #### [facility] [address] [place] [address] Dr. Beth Pineda TYPE AND SCREENon 04-07-2023 TYPE AND SCREEN Negative Normal [facility] Comment on above: Performed By: #### T SH #### [facility] [address] [place] [address] Dr. Beth Pineda US PREG TVon 03-13-2023 [...] MORE [place] Date: 2023-03-13 09:37 Normal [facility] PREG QUANT HCGon 02-27-2023 HCG QUANT 70881 mIU/mL Normal [facility] Comment on above: Performed By: #### A 1C #### [facility] [address] [place] [address] Dr. Beth Pineda HCG RANGE SEE BELOW Normal [facility] Comment on above: Result Comment: 5-50 0.2-1 WEEK 50-500 1-2 WEEKS 100-5,000 2-3 WEEKS 500-10,000 3-4 WEEKS 1,000-50,000 4-5 WEEKS 10,000-100,000 5-6 WEEKS 15,000-200,000 6-8 WEEKS 10,000-100,000 2-3 MONTHS Performed By: #### A 1C #### [facility] [address] [place] [address] Dr. Beth Pineda PREG QUANT HCGon 02-11-2023 HCG QUANT 57 mIU/mL Normal [facility] Comment on above: Performed By: #### A 1C #### [facility] [address] [place] [address] Dr. Beth Pineda HCG RANGE SEE BELOW Normal [facility] Comment on above: Result Comment: 5-50 0.2-1 WEEK 50-500 1-2 WEEKS 100-5,000 2-3 WEEKS 500-10,000 3-4 WEEKS 1,000-50,000 4-5 WEEKS 10,000-100,000 5-6 WEEKS 15,000-200,000 6-8 WEEKS 10,000-100,000 2-3 MONTHS Performed By: #### A 1C #### [facility] [address] [place] [address] Dr. Beth Pineda PREG QUANT HCGon 02-09-2023 HCG QUANT 14 mIU/mL Normal [facility] Comment on above: Performed By: #### P REGQNT #### [facility] [address] [place] [address] Dr. Beth Pineda HCG RANGE SEE BELOW [facility] Comment on above: Result Comment: 5-50 0.2-1 WEEK 50-500 1-2 WEEKS 100-5,000 2-3 WEEKS 500-10,000 3-4 WEEKS 1,000-50,000 4-5 WEEKS 10,000-100,000 5-6 WEEKS 15,000-200,000 6-8 WEEKS 10,000-100,000 2-3 MONTHS Performed By: #### P REGQNT #### [facility] [address] [address] [address] Beth Pineda ANTI-MULLERIAN HORMONEon Anti-Mullerian Hormone (AMH) 12.5 ng/mL Normal [facility] Comment on above: Result Comment: For assays employing antibodies, the possibility exists for interference by heterophile antibodies in the samples.1 1.Tanja Rendon Interferences in Immunoassays - still a threat. Clin. Chem. 2000; 46: 4192-4136. This test was developed and its performance characteristics determined by [employer]. It has not been cleared or approved by the Food and Drug Administration. Reference Range: Females 20 - 25y: 1.23 - 11.51 Median 4.70 AMH concentrations of >= 1.06 ng/mL is correlated with a better response to ovarian stimulation, produced more retrievable oocytes and higher odds of live according to Gaye et al. Fertility and Sterility. 2010: 94:7365-1737. The current AMH test method correlates with [...] By: #### T SH #### [facility] [address] [place] [address] Dr. Beth Pineda PAP ACOG PANEL 2: 21 to 29on 01-20-2023 . . Normal [facility] Comment on above: Performed By: #### T SH #### [facility] [address] [address] [address] Beth Pineda Age Gdln ACOG Testing - [facility] Comment on above: Performed By: #### T SH #### [facility] [address] [address] [address] Beth Pineda DIAGNOSIS: Comment [facility] Comment on above: Result Comment: NEGA TIVE FOR INTRAEPITHELIAL LESION OR MALIGNANCY. Performed By: #### T SH #### [facility] [address] [place] [address] Dr. Beth Pineda Methodology: Comment Normal [facility] Comment on above: Result Comment: This liquid based ThinPrep(R) pap test was screened with the use of an image guided system. Performed By: #### T SH #### [facility] [address] [place] [address] Dr. Beth Pineda Note: Comment Normal [facility] Comment on above: Result Comment: The Pap smear is a screening test designed to aid in the detection of premalignant and malignant conditions of the uterine cervix. It is not a diagnostic procedure and should not be used as the sole means of detecting cervical cancer. Both false-positive and false-negative reports do occur. . Performed By: #### T SH #### [facility] [address] [place] [address] Dr. Beth Pineda Performed by: Comment Normal [facility] Comment on above: Result Comment: Pato Gonzalez Licensed Pesticide Applicator (ASCP) Performed By: #### T SH #### [facility] [address] [place] [address] Dr. Beth Pineda Reflex Criteria: Comment [facility] [place] [facility] Comment on above: Result Comment: The HPV DNA reflex criteria were not met with this specimen result therefore, no HPV testing was performed. . Performed By: #### T SH #### [facility] [address] [place] [address] Dr. Beth Pineda Specimen adequacy: Comment Normal [facility] Comment on above: Result Comment: Sati sfactory for evaluation. Endocervical and/or squamous metaplastic cells (endocervical component) are present. Performed By: #### T SH #### [facility] [address] [place] [address] Dr. Beth Pineda Albumin [Mass/volume] in Ser um or PlasmaOrdered By: Amanda Rosario on 01-09-2023 Albumin [Mass/Vol] 4.3 g/dL 3.2-5.5 [facility] Alkaline phosphatase [Enzyma tic activity/volume] in Serum or PlasmaOrdered By: Amanda Rosario on 01-09-2023 ALP [Catalytic activity/Vol] 54 U/L 32-92 [facility] Aspartate aminotransferase [ Enzymatic activity/volume] in Serum or PlasmaOrdered By: Amanda Rosario on 01-09-2023 AST [Catalytic activity/Vol] 21 U/L 10-42 [facility] Basophils Auto (Bld) [#/Vol] Ordered By: Amanda Rosario on 01-09-2023 Basophils (Bld) [#/Vol] 0.0 10*3/uL 0.0-0.2 [facility] Basophils/100 WBC Auto (Bld) Ordered By: Amanda Rosario on 01-09-2023 Basophils/100 WBC (Bld) 0.7 % . [facility] Bilirubin.total [Mass/volume ] in Serum or PlasmaOrdered By: Amanda Rosario on 01-09-2023 Bilirubin [Mass/Vol] 0.7 mg/dL 0.3-1.[address] [facility] [address] biopsyOrdered By: Amanda Nino se on 01-09-2023 Transferrin [Mass/Vol] 265 mg/dL 180-380 [facility] Calcium [Mass/volume] in Ser um or PlasmaOrdered By: Amanda Rosario on 01-09-2023 Calcium [Mass/Vol] 9.6 mg/dL 8.2-10.2 [facility] Carbon dioxide, total [Moles /volume] in Serum or PlasmaOrdered By: Amanda Rosario on 01-09-2023 CO2 [Moles/Vol] 27.2 mmol/L 22.0-30.0 [facility] Chloride [Moles/volume] in [place] or PlasmaOrdered By: Amanda Rosario on 01-09-2023 Chloride [Moles/Vol] 104 mmol/L 95-114 [facility] Creatinine and Glomerular fi ltration rate.predicted panel (S/P/Bld)Ordered By: Amanda Rosario on 01-09-2023 Creatinine [Mass/Vol] 0.72 mg/dL 0.44-1.03 [facility] Eosinophils Auto (Bld) [#/Vo l]Ordered By: Amanda Rosario on 01-09-2023 Eosinophils (Bld) [#/Vol] 0.1 10*3/uL 0.0-0.45 [facility] Eosinophils/100 WBC Auto (Bl d)Ordered By: Amanda Rosario on 01-09-2023 Eosinophils/100 WBC (Bld) 1.3 % . [facility] Erythrocyte distribution wid th Auto (RBC) [Ratio]Ordered By: Amanda Rosario on 01-09-2023 Erythrocyte distribution width (RBC) [Ratio] 13.1 % 11.9-15.3 [facility] Estimated glomerular filtrat ion rate (GFR) non- AmericanOrdered By: Amanda Rosario on 01-09-2023 GFR/1.73 sq M.predicted among non-blacks MDRD (S/P/Bld) [Vol rate/Area] > 60 mL/Min [facility] Ferritin [Mass/volume] in Se rum or PlasmaOrdered By: Amanda Rosario on 01-09-2023 Ferritin [Mass/Vol] 13.4 ng/mL 11-306.8 [facility] Globulin Calc (S) [Mass/Vol] Ordered By: Amanda Rosario on 01-09-2023 Globulin (S) [Mass/Vol] 2.3 g/dL [facility] Glucose [Mass/volume] in Ser um or PlasmaOrdered By: Amanda Rosario on 01-09-2023 Glucose [Mass/Vol] 80 mg/dL 70-100 [facility] Comment on above: ADA recommended refe rence rangeRandom Glucose Reference Range is dependent on time and content of last meal. Glucose of more than 200 mg/dL in a nonstressed, ambulatory subject supports the diagnosis of Diabetes Mellitus. Hematocrit Auto (Bld) [Volum e fraction]Ordered By: Amanda Rosario on 01-09-2023 Hematocrit (Bld) [Volume fraction] 39.5 % 34.0-46.4 [facility] Hemoglobin [Mass/volume] in BloodOrdered By: Amanda Rosario on 01-09-2023 Hemoglobin (Bld) [Mass/Vol] 13.1 g/dL 11.8-15.4 [facility] Iron [Mass/volume] in Serum or PlasmaOrdered By: Amanda Rosario on 01-09-2023 Iron [Mass/Vol] 75 ug/dL 40-150 [facility] Iron binding capacity [Mass/ volume] in Serum or PlasmaOrdered By: Amanda Rosario on 01-09-2023 Iron binding capacity [Mass/Vol] 371 ug/dL 255-450 [facility] Iron saturation [Mass Fracti on] in Serum or PlasmaOrdered By: Amanda Rosario on 01-09-2023 Iron saturation [Mass fraction] 20.2 % 20-50 [facility] Lactate dehydrogenase measur ement (enzymatic activity/volume)Ordered By: Ale Alejandrezakia on 01-09-2023 LDH (Unsp spec) [Catalytic activity/Vol] 145 U/L 45-190 [facility] Leukocytes [#/volume] correc yanira for nucleated erythrocytes in Blood by Automated counOrdered By: Amanda Rosario on 01-09-2023 WBC corrected for nucl RBC Auto (Bld) [#/Vol] 4.8 10*3/uL 3.8-11.6 [facility] Lymphocytes Auto (Bld) [#/Vo l]Ordered By: Amanda Rosario on 01-09-2023 Lymphocytes (Bld) [#/Vol] 1.0 10*3/uL 1.00-4.8 [facility] Lymphocytes/100 WBC Auto (Bl d)Ordered By: Amanda Rosario on 01-09-2023 Lymphocytes/100 WBC (Bld) 20.2 % . [facility] MCH Auto (RBC) [Entitic mass ]Ordered By: Amanda Rosario on 01-09-2023 MCH (RBC) [Entitic mass] 30.0 pg 24.7-34.3 [facility] MCHC Auto (RBC) [Mass/Vol]Or dered By: Amanda Rosario on 01-09-2023 MCHC (RBC) [Mass/Vol] 33.2 g/dL 32.0-35.0 [facility] MCV Auto (RBC) [Entitic vol] Ordered By: Amanda Rosario on 01-09-2023 MCV (RBC) [Entitic vol] 90.3 fL 80-100 [facility] Monocytes Auto (Bld) [#/Vol] Ordered By: Amanda Rosario on 01-09-2023 Monocytes (Bld) [#/Vol] 0.5 10*3/uL 0.0-0.8 [facility] Monocytes/100 WBC Auto (Bld) Ordered By: Amanda Rosario on 01-09-2023 Monocytes/100 WBC (Bld) 10.5 % . [facility] Neutrophils Auto (Bld) [#/Vo l]Ordered By: Amanda Rosario on 01-09-2023 Neutrophils (Bld) [#/Vol] 3.2 10*3/uL 1.8-7.7 [facility] Neutrophils/100 WBC Auto (Bl d)Ordered By: Amanda Rosario on 01-09-2023 Neutrophils/100 WBC (Bld) 67.3 % . [facility] No Panel InformationOrdered By: Amanda Rosario on 01-09-2023 Estimated GFR () > 60 mL/Min [facility] Comment on above: GFR estimated refere nce range: According to KDOQI guidelines, <60 ml/min/1.73m2 is sufficient to diagnose a patient with chronic kidney disease. Pharmacy Creatinine Clearance (Chem 120.49 [facility] Nucleated erythrocytes [Pres ence] in Blood by Automated countOrdered By: Amanda Rosario on 01-09-2023 Nucleated RBC Auto Ql (Bld) 0.1 /100{WBC} 0-0.5 [facility] Platelet mean volume Auto (B ld) [Entitic vol]Ordered By: Amanda Rosario on 01-09-2023 Platelet mean volume (Bld) [Entitic vol] 7.9 fL 6.3-10.7 [facility] Platelets Auto (Bld) [#/Vol] Ordered By: Amanda Rosario on 01-09-2023 Platelets (Bld) [#/Vol] 290 10*3/uL 150-450 [facility] Potassium [Moles/volume] in Serum or PlasmaOrdered By: Amanda Rosario on 01-09-2023 Potassium [Moles/Vol] 4.4 mmol/L 3.5-5.1 [facility] Protein [Mass/volume] in Ser um or PlasmaOrdered By: Amanda Rosario on 01-09-2023 Protein [Mass/Vol] 6.6 g/dL 6.1-7.9 [facility] RBC Auto (Bld) [#/Vol]Ordere d By: Amanda Rosario on 01-09-2023 RBC (Bld) [#/Vol] 4.37 10*6/uL 3.60-5.00 [facility] Serum or plasma alanine green otransferase measurement without P-5'-P (enzymatic activiOrdered By: Amanda Rosario on 01-09-2023 ALT No additional P-5'-P [Catalytic activity/Vol] 20 U/L 10-60 [facility] Serum or plasma albumin/glob ulin mass ratioOrdered By: Amanda Rosario on 01-09-2023 Albumin/Globulin [Mass ratio] 1.9 {ratio} [facility] Serum or plasma anion gap de terminationOrdered By: Amanda Rosario on 01-09-2023 Anion gap [Moles/Vol] 10.2 mmol/L 6.0-15.0 [facility] Sodium [Moles/volume] in Ser um or PlasmaOrdered By: Amanda Rosario on 01-09-2023 Sodium [Moles/Vol] 137 mmol/L 136-146 [facility] Urea nitrogen [Mass/volume] in Serum or PlasmaOrdered By: Amanda Rosario on 01-09-2023 Urea nitrogen [Mass/Vol] 13 mg/dL 9-23 [facility] WBC Auto (Bld) [#/Vol]Ordere d By: Amanda Rosario on 01-09-2023 WBC (Bld) [#/Vol] 4.8 10*3/uL 3.8-11.6 [facility] CBC AUTO DIFFon 12-31-2022 BASO # 0.1 103/ul Normal 0.0-0.1 [facility] Comment on above: Performed By: #### C BC #### [facility] [address] [address] [address] Beth Pineda Basophils/100 WBC (Bld) 1.2 % Normal 0.2-2.0 [facility] Comment on above: Performed By: #### C BC #### [facility] [address] [address] [address] Beth Pineda EO # 0.1 103/ul Normal 0.0-0.7 [facility] Comment on above: Performed By: #### C BC #### [facility] [address] [place] [address] Dr. Beth Pineda Eosinophils/100 WBC (Bld) 2.1 % Normal 0.9-7.0 [facility] Comment on above: Performed By: #### C BC #### [facility] [address] [place] [address] Dr. Beth Pineda Erythrocyte distribution width (RBC) [Ratio] 12.9 % Normal 11.0-15.0 [facility] Comment on above: Performed By: #### C BC #### [facility] [address] [place] [address] Dr. Beth Pineda Hematocrit (Bld) [Volume fraction] 41.2 % Normal 36.0-48.0 [facility] Comment on above: Performed By: #### C BC #### [facility] [address] [place] [address] Dr. Beth Pineda Hemoglobin (Bld) [Mass/Vol] 13.5 g/dL Normal 12.0-16.0 [facility] Comment on above: Performed By: #### C BC #### [facility] [address] [place] [address] Dr. Beth Pineda IG # 0.01 10e3/ul Normal 0.00-0.03 [facility] Comment on above: Performed By: #### C BC #### [facility] [address] [place] [address] Dr. Beth Pineda IG % 0.2 % Normal 0.0-0.5 [facility] Comment on above: Performed By: #### C BC #### [facility] [address] [place] [address] Dr. Beth Pineda LYMPH # 1.6 103/ul Normal 1.2-3.8 [facility] Comment on above: Performed By: #### C BC #### [facility] [address] [place] [address] Dr. Beth Pineda Lymphocytes/100 WBC (Bld) 29.9 % Normal 20.5-60.0 [facility] Comment on above: Performed By: #### C BC #### [facility] [address] [place] [address] Dr. Beth Pineda MANUAL DIFF REQ NO Normal [facility] Comment on above: Performed By: #### C BC #### [facility] [address] [place] [address] Dr. Beth Pineda MCH (RBC) [Entitic mass] 30.3 pg Normal 26.7-34.0 [facility] Comment on above: Performed By: #### C BC #### [facility] [address] [place] [address] Dr. Beth Pineda MCHC (RBC) [Mass/Vol] 32.8 g/dL Normal 29.9-35.2 [facility] Comment on above: Performed By: #### C BC #### [facility] [address] [place] [address] Dr. Beth Pineda MCV (RBC) [Entitic vol] 92.6 fL Normal 81.0-99.0 [facility] Comment on above: Performed By: #### C BC #### [facility] [address] [place] [address] Dr. Beth Pineda MONO # 0.4 103/ul Normal 0.3-0.8 [facility] Comment on above: Performed By: #### C BC #### [facility] [address] [place] [address] Dr. Beth Pineda Monocytes/100 WBC (Bld) 7.9 % Normal 1.7-12.0 [facility] Comment on above: Performed By: #### C BC #### [facility] [address] [place] [address] Dr. Beth Pineda NEUT # 3.0 103/ul Normal 1.4-6.5 [facility] Comment on above: Performed By: #### C BC #### [facility] [address] [place] [address] Dr. Beth Pineda Neutrophils/100 WBC (Bld) 58.7 % Normal 43.0-75.0 [facility] Comment on above: Performed By: #### C BC #### [facility] [address] [place] [address] Dr. Beth Pineda Platelet mean volume (Bld) [Entitic vol] 9.3 fL Critically low 9.5-13.5 [facility] Comment on above: Performed By: #### C BC #### [facility] [address] [place] [address] Dr. Beth Pineda PLT 304 103/ul Normal 150-450 [facility] Comment on above: Performed By: #### C BC #### [facility] [address] [place] [address] Dr. Beth Pineda RBC 4.45 106/ul Normal 4.20-5.40 [facility] Comment on above: Performed By: #### C BC #### [facility] [address] [place] [address] Dr. Beth Pineda WBC 5.2 103/ul Normal 4.0-11.0 [facility] Comment on above: Performed By: #### C BC #### [facility] [address] [place] [address] Dr. Beth Pineda GLYCOHEMOGLOBIN A1Con 2022 ADA RECOMMENDATION SEE BELOW Normal [facility] Comment on above: Result Comment: ADA RECOMMENDED LIMIT 4.0 - 6.0 ADA THERAPEUTIC TARGET < 7.0 ACTION SUGGESTED > 7.0 Performed By: #### T SH #### [facility] [address] [place] [address] Dr. Beth Pineda Glucose [Mass/Vol] 91 mg/dL Normal [facility] Comment on above: Performed By: #### T SH #### [facility] [address] [place] [address] Dr. Beth Pineda HbA1c (Bld) [Mass fraction] 4.8 % Normal 4.5-6.2 [facility] Comment on above: Performed By: #### T SH #### [facility] [address] [place] [address] Dr. Beth Pineda LIPID PROFILEon 12-31-2022 CHOL-HDL RATIO NORM SEE BELOW Normal [facility] Comment on above: Result Comment: 3.3 - 4.4 LOW RISK 4.4 - 7.1 AVERAGE RISK 7.1 - 11.0 MODERATE RISK >11.0 HIGH RISK Performed By: #### A 1C #### [facility] [address] [place] [address] Dr. Beth Pineda Cholesterol [Mass/Vol] 180 mg/dL Normal <=200 [facility] Comment on above: Performed By: #### A 1C #### [facility] [address] [place] [address] Dr. Beth Pineda Cholesterol in HDL [Mass/Vol] 106 mg/dL Critically high 40-60 [facility] Comment on above: Performed By: #### A 1C #### [facility] [address] [place] [address] Dr. Beth Pineda Cholesterol in LDL [Mass/Vol] 66.6 mg/dL Normal [facility] Comment on above: Performed By: #### A 1C #### [facility] [address] [place] [address] Dr. Beth Pineda Cholesterol.total/Elida sterol in HDL [Mass ratio] 1.7 {ratio} Normal [facility] Comment on above: Performed By: #### A 1C #### [facility] [address] [place] [address] Dr. Beth Pineda HDL NORMAL > or = 60 mg/dl - LO W CARDIOVASCULAR RISK <40 mg/dl - HIGH CARDIOVASCULAR RISK Normal [facility] Comment on above: Performed By: #### A 1C #### [facility] [address] [place] [address] Dr. Beth Pineda LDL CALC NORMAL SEE BELOW Normal [facility] Comment on above: Result Comment: <100 mg/dl OPTIMAL 100 - 129 mg/dl NEAR OR ABOVE OPTIMAL 130 - 159 mg/dl BORDERLINE HIGH 160 - 189 mg/dl HIGH >190 mg/dl VERY HIGH Performed By: #### A 1C #### [facility] [address] [place] [address] Dr. Beth Pineda Triglyceride [Mass/Vol] 37 mg/dL Normal <=150 [facility] Comment on above: Performed By: #### A 1C #### [facility] [address] [place] [address] Dr. Beth Pineda VLDL CALC 7.4 mg/dL Normal [facility] Comment on above: Performed By: #### A 1C #### [facility] [address] [place] [address] Dr. Beth Pineda PROF 14(COMP METB)on 023 Albumin [Mass/Vol] 4.3 g/dL Normal 3.4-5.0 [facility] Comment on above: Performed By: #### T SH #### [facility] [address] [place] [address] Dr. Beth Pineda Albumin/Globulin [Mass ratio] 1.3 {ratio} Normal [facility] Comment on above: Performed By: #### T SH #### [facility] [address] [place] [address] Dr. Beth Pineda ALP [Catalytic activity/Vol] 68 U/L Normal 46-116 [facility] Comment on above: Performed By: #### T SH #### [facility] [address] [place] [address] Dr. Beth Pineda ALT [Catalytic activity/Vol] 21 U/L Normal 14-59 [facility] Comment on above: Performed By: #### T SH #### [facility] [address] [place] [address] Dr. Beth Pineda Anion gap [Moles/Vol] 12.1 mmol/L Normal [facility] Comment on above: Performed By: #### T SH #### [facility] [address] [place] [address] Dr. Beth Pineda AST [Catalytic activity/Vol] 10 U/L Critically low 15-37 [facility] Comment on above: Performed By: #### T SH #### [facility] [address] [place] [address] Dr. Beth Pineda Bilirubin [Mass/Vol] 0.6 mg/dL Normal 0.2-1.0 [facility] Comment on above: Performed By: #### T SH #### [facility] [address] [place] [address] Dr. Beth Pineda Calcium [Mass/Vol] 9.2 mg/dL Normal 8.5-10.1 [facility] Comment on above: Performed By: #### T SH #### [facility] [address] [place] [address] Dr. Beth Pineda Chloride [Moles/Vol] 103 mmol/L Normal 98-107 [facility] Comment on above: Performed By: #### T SH #### [facility] [address] [place] [address] Dr. Beth Pineda CO2 [Moles/Vol] 28.0 mmol/L Normal 21.0-32.0 [facility] Comment on above: Performed By: #### T SH #### [facility] [address] [place] [address] Dr. Beth Pineda Creatinine [Mass/Vol] 0.73 mg/dL Normal 0.55-1.02 [facility] Comment on above: Performed By: #### T SH #### [facility] [address] [place] [address] Dr. Beth Pineda EGFR-AF KYRGYZ >60 Normal >=60 [facility] Comment on above: Performed By: #### T SH #### [facility] [address] [place] [address] Dr. Beth Pineda EGFR-NON AF KYRGYZ >60 Normal >=60 [facility] Comment on above: Performed By: #### T SH #### [facility] [address] [place] [address] Dr. Beth Pineda Globulin (S) [Mass/Vol] 3.2 g/dL Normal [facility] Comment on above: Performed By: #### T SH #### [facility] [address] [place] [address] Dr. Beth Pineda Glucose [Mass/Vol] 89 mg/dL Normal 74-106 [facility] Comment on above: Performed By: #### T SH #### [facility] [address] [place] [address] Dr. Beth Pineda Potassium [Moles/Vol] 4.1 mmol/L Normal 3.5-5.1 [facility] Comment on above: Performed By: #### T SH #### [facility] [address] [address] [address] Beth Pineda Protein [Mass/Vol] 7.5 g/dL Normal 6.4-8.2 [facility] Comment on above: Performed By: #### T SH #### [facility] [address] [address] [address] Beth Pineda Sodium [Moles/Vol] 139 mmol/L Normal 136-145 [facility] Comment on above: Performed By: #### T SH #### [facility] [address] [address] [address] Beth Pineda Urea nitrogen [Mass/Vol] 10.0 mg/dL Normal 7.0-18.0 [facility] Comment on above: Performed By: #### T SH #### [facility] [address] [address] [address] Beth Pineda Urea nitrogen/Creatinine [Mass ratio] 13.7 mg/mg Normal [facility] Comment on above: Performed By: #### T SH #### [facility] [address] [address] [address] Beth Pineda TSHon 12-31-2022 TSH 3.121 uIU/mL Normal 0.358-3.740 [facility] Comment on above: Performed By: #### A 1C #### [facility] [address] [address] [address] Beth Pineda Albumin [Mass/volume] in Ser um or PlasmaOrdered By: Amanda Rosario on 07-08-2022 Albumin [Mass/Vol] 3.9 g/dL 3.2-5.5 [facility] Basophils Auto (Bld) [#/Vol] Ordered By: Amanda Rosario on 07-08-2022 Basophils (Bld) [#/Vol] 0.1 10*3/uL 0.0-0.2 [facility] Basophils/100 WBC Auto (Bld) Ordered By: Amanda Rosario on 07-08-2022 Basophils/100 WBC (Bld) 1.3 % . [facility] Blood hemoglobin measurement (mass/volume)Ordered By: Amanda Rosario on 07-08-2022 Hemoglobin (Bld) [Mass/Vol] 14.2 g/dL 11.8-15.4 [facility] Blood leukocytes automated c ount (number/volume)Ordered By: Amanda Rosario on 07-08-2022 WBC (Bld) [#/Vol] 5.6 10*3/uL 4.5-11.[address] [facility] [address] biopsyOrdered By: Amanda Nino se on 07-08-2022 Transferrin [Mass/Vol] 346 mg/dL 180-380 [facility] Creatinine and Glomerular fi ltration rate.predicted panel (S/P/Bld)Ordered By: Amanda Rosario on 07-08-2022 Creatinine [Mass/Vol] 0.78 mg/dL 0.44-1.03 [facility] Eosinophils Auto (Bld) [#/Vo l]Ordered By: Amanda Rosario on 07-08-2022 Eosinophils (Bld) [#/Vol] 0.1 10*3/uL 0.0-0.45 [facility] Eosinophils/100 WBC Auto (Bl d)Ordered By: Amanda Rosario on 07-08-2022 Eosinophils/100 WBC (Bld) 1.2 % . [facility] Erythrocyte distribution wid th Auto (RBC) [Ratio]Ordered By: Amanda Rosario on 07-08-2022 Erythrocyte distribution width (RBC) [Ratio] 12.4 % 11.9-15.3 [facility] Estimated glomerular filtrat ion rate (GFR) non- AmericanOrdered By: Amanda Rosario on 07-08-2022 GFR/1.73 sq M.predicted among non-blacks MDRD (S/P/Bld) [Vol rate/Area] > 60 mL/Min [facility] Ferritin [Mass/volume] in Se rum or PlasmaOrdered By: Amanda Rosario on 07-08-2022 Ferritin [Mass/Vol] 9.6 ng/mL 11-306.8 [facility] Globulin Calc (S) [Mass/Vol] Ordered By: Amanda Rosario on 07-08-2022 Globulin (S) [Mass/Vol] 2.9 g/dL [facility] Hematocrit Auto (Bld) [Volum e fraction]Ordered By: Amanda Rosario on 07-08-2022 Hematocrit (Bld) [Volume fraction] 42.7 % 34.0-46.4 [facility] Iron [Mass/volume] in Serum or PlasmaOrdered By: Amanda Rosario on 07-08-2022 Iron [Mass/Vol] 173 ug/dL 40-150 [facility] Iron binding capacity [Mass/ volume] in Serum or PlasmaOrdered By: Amanda Rosario on 07-08-2022 Iron binding capacity [Mass/Vol] 484 ug/dL 255-450 [facility] Iron saturation [Mass Fracti on] in Serum or PlasmaOrdered By: Amanda Rosario on 07-08-2022 Iron saturation [Mass fraction] 35.0 % 20-50 [facility] - Hematology and Cell countsOrdered By: Amanda Rosario on 07-08-2022 Nucleated RBC/100 WBC (Bld) [Ratio] 0.2 % 0-0.5 [facility] Lactate dehydrogenase measur ement (enzymatic activity/volume)Ordered By: Amanda Rosario on 07-08-2022 LDH (Unsp spec) [Catalytic activity/Vol] 154 U/L 45-190 [facility] Lymphocytes Auto (Bld) [#/Vo l]Ordered By: Amanda Rosario on 07-08-2022 Lymphocytes (Bld) [#/Vol] 1.5 10*3/uL 1.00-4.8 [facility] Lymphocytes/100 WBC Auto (Bl d)Ordered By: Amanda Rosario on 07-08-2022 Lymphocytes/100 WBC (Bld) 26.6 % . [facility] MCH Auto (RBC) [Entitic mass ]Ordered By: Amanda Rosario on 07-08-2022 MCH (RBC) [Entitic mass] 29.7 pg 24.7-34.3 [facility] MCHC Auto (RBC) [Mass/Vol]Or dered By: Amanda Rosario on 07-08-2022 MCHC (RBC) [Mass/Vol] 33.3 g/dL 32.0-35.0 [facility] MCV Auto (RBC) [Entitic vol] Ordered By: Amanda Rosario on 08-16-2022 MCV (RBC) [Entitic vol] 89.4 fL 80-100 [facility] Monocytes Auto (Bld) [#/Vol] Ordered By: Amanda Rosario on 07-08-2022 Monocytes (Bld) [#/Vol] 0.5 10*3/uL 0.0-0.8 [facility] Monocytes/100 WBC Auto (Bld) Ordered By: Amanda Rosario on 07-08-2022 Monocytes/100 WBC (Bld) 9.7 % . [facility] Neutrophils Auto (Bld) [#/Vo l]Ordered By: Amanda Rosario on 07-08-2022 Neutrophils (Bld) [#/Vol] 3.4 10*3/uL 1.8-7.7 [facility] Neutrophils/100 WBC Auto (Bl d)Ordered By: Amanda Rosario on 07-08-2022 Neutrophils/100 WBC (Bld) 61.2 % . [facility] No Panel InformationOrdered By: Amanda Rosario on 07-08-2022 Adrenocorticotropic Hormone 8.2 pg/mL 7.2-63.3 [facility] Comment on above: ACTH reference inter cruz for samples collected between 7 and 10 AM. Performed at: [employer] [id number] [employer] Machine Operator: Sai Smalls PhD, Phone: [phone] ACTH reference inter cruz for samples collected between 7 and10 AM.Performed at: [facility] [employer] [id number] Director: Sai Smalls PhD, Phone: [phone] Estimated GFR () > 60 mL/Min [facility] Comment on above: GFR estimated refere nce range: According to KDOQI guidelines, <60 ml/min/1.73m2 is sufficient to diagnose a patient with chronic kidney disease. Pharmacy Creatinine Clearance (Chem 111.22 [facility] Total Triiodothyronine 1.68 ng/mL 0.87-1.78 [facility] Platelet mean volume Auto (B ld) [Entitic vol]Ordered By: Amanda Rosario on 07-08-2022 Platelet mean volume (Bld) [Entitic vol] 8.0 fL 6.3-10.7 [facility] Platelets Auto (Bld) [#/Vol] Ordered By: Amanda Rosario on 07-08-2022 Platelets (Bld) [#/Vol] 393 10*3/uL 150-450 [facility] Protein [Mass/volume] in Ser um or PlasmaOrdered By: Amanda Rosario on 07-08-2022 Protein [Mass/Vol] 6.8 g/dL 6.1-7.9 [facility] RBC Auto (Bld) [#/Vol]Ordere d By: Amanda Rosario on 07-08-2022 RBC (Bld) [#/Vol] 4.78 10*6/uL 3.60-5.00 [facility] Random cortisol measurementO rdered By: Amanda Rosario on 07-08-2022 Cortisol [Mass/Vol] 12.6 ug/dL [facility] Comment on above: Reference range: AM 6 - 24 ug/dl PM <10 ug/dl Reference range: AM 6 - 24 ug/dl PM <10 ug/dl Serum or plasma alanine green otransferase measurement without P-5'-P (enzymatic activiOrdered By: Amanda Rosario on 07-08-2022 ALT No additional P-5'-P [Catalytic activity/Vol] 17 U/L 10-60 [facility] Serum or plasma albumin/glob ulin mass ratioOrdered By: Amanda Rosario on 07-08-2022 Albumin/Globulin [Mass ratio] 1.3 {ratio} [facility] Serum or plasma alkaline mando sphatase measurement (enzymatic activity/volume)Ordered By: Amanda Rosario on 07-08-2022 ALP [Catalytic activity/Vol] 52 U/L 32-92 [facility] Serum or plasma aspartate am inotransferase measurement (enzymatic activity/volume)Ordered By: Amanda Rosario on 07-08-2022 AST [Catalytic activity/Vol] 22 U/L 10-42 [facility] Serum or plasma calcium saritha urement (mass/volume)Ordered By: Amanda Rosario on 07-08-2022 Calcium [Mass/Vol] 9.3 mg/dL 8.2-10.2 [facility] Serum or plasma chloride obi surement (moles/volume)Ordered By: Amanda Rosario on 07-08-2022 Chloride [Moles/Vol] 104 mmol/L 95-114 [facility] Serum or plasma glucose saritha urement (mass/volume)Ordered By: Amanda Rosario on 07-08-2022 Glucose [Mass/Vol] 83 mg/dL 70-100 [facility] Comment on above: ADA recommended refe rence range Random Glucose Reference Range is dependent on time and content of last meal. Glucose of more than 200 mg/dL in a nonstressed, ambulatory subject supports the diagnosis of Diabetes Mellitus. Serum or plasma potassium me asurement (moles/volume)Ordered By: Amanda Rosario on 07-08-2022 Potassium [Moles/Vol] 4.3 mmol/L 3.5-5.1 [facility] Serum or plasma sodium measu rement (moles/volume)Ordered By: Amanda Rosario on 07-08-2022 Sodium [Moles/Vol] 134 mmol/L 136-146 [facility] Serum or plasma thyroxine (T 4) measurement (mass/volume)Ordered By: Amanda Rosario on 07-08-2022 T4 [Mass/Vol] 11.18 ug/dL 5.39-11.82 [facility] Serum or plasma total biliru bin measurement (mass/volume)Ordered By: Amanda Rosario on 07-08-2022 Bilirubin [Mass/Vol] 0.7 mg/dL 0.3-1.2 [facility] Serum or plasma total carbon dioxide measurement (moles/volume)Ordered By: Amanda Rosario on 07-08-2022 CO2 [Moles/Vol] 22.2 mmol/L 22.0-30.0 [facility] Serum or plasma urea nitroge n measurement (mass/volume)Ordered By: Amanda Rosario on 07-08-2022 Urea nitrogen [Mass/Vol] 9 mg/dL 9-23 [facility] TSH DL <= 0.005 mIU/L QnOrde red By: Amanda Rosario on 07-08-2022 TSH Qn 1.69 m[IU]/L 0.45-5.33 [facility] CHLAMYDIA/GONOCOCCUS PARMINDER ( AB/URINE/PAPon 06-19-2022 Chlamydia trachomatis, PARMINDER Negative Normal Negative [facility] Comment on above: Performed By: #### T SH #### [facility] [address] [address] [address] Beth Pineda Neisseria gonorrhoeae, PARMINDER Negative Normal Negative [facility] Comment on above: Performed By: #### T SH #### [facility] [address] [address] [address] Beth Pineda VAGINITIS/VAGINOSIS DNA PROB Kaden 06-18-2022 Steven species Negative Normal Negative [facility] Comment on above: Performed By: #### T SH #### [facility] [address] [address] [address] Beth Pineda Gardnerella vaginalis Negative Normal Negative [facility] Comment on above: Performed By: #### T SH #### [facility] [address] [address] [address] Beth Pineda Trichomonas vaginalis Negative Normal Negative [facility] Comment on above: Performed By: #### T SH #### [facility] [address] [address] [address] Beth Pineda Creatinine [Mass/volume] in UrineOrdered By: Amanda Rosario on 05-23-2022 Creatinine (U) [Mass/Vol] 26.2 mg/dL [facility] Comment on above: No reference range e stablished Laboratory - Chemistry and C hemistry - challengeOrdered By: Amanda Rosario on 05-23-2022 Lipase [Catalytic activity/Vol] 32.0 U/L 22-51 [facility] Protein [Mass/volume] in Uri neOrdered By: Amanda Rosario on 05-23-2022 Protein (U) [Mass/Vol] mg/dL 0-9 [facility] Thyroxine (T4) free [Mass/vo lume] in Serum or PlasmaOrdered By: Amanda Rosario on 05-23-2022 Free T4 [Mass/Vol] 0.88 ng/dL 0.61-1.12 [facility] Bilirubin Test strip Ql (U)O rdered By: Amanda Rosario on 10-30-2021 Bilirubin Ql (U) Negative Negative [facility] Color Auto (U)Ordered By: Ira Rosario on 10-30-2021 Color (U) Yellow Yellow [facility] Ketones Auto test strip (U) [Mass/Vol]Ordered By: Amanda Rosario on 10-30-2021 Ketones (U) [Mass/Vol] Negative Negative [facility] Nitrite Test strip Ql (U)Ord ered By: Amanda Rosario on 10-30-2021 Nitrite Ql (U) Negative Negative [facility] Protein Auto test strip (U) [Mass/Vol]Ordered By: Amanda Rosario on 10-30-2021 Protein (U) [Mass/Vol] Negative Negative [facility] Specific gravity Auto test s trip (U) [Rel density]Ordered By: Amanda Rosario on 10-30-2021 Specific gravity (U) [Rel density] 1.008 1.001-1.030 [facility] Urine clarity by refractomet ry automatedOrdered By: Amanda Rosario on 10-30-2021 Clarity Refractometry automated (U) Clear Clear [facility] Urine glucose measurement by automated test strip (mass/volume)Ordered By: Amanda Rosario on 10-30-2021 Glucose Auto test strip (U) [Mass/Vol] Normal mg/dL Normal [facility] Urine hemoglobin detection b y automated test stripOrdered By: Amanda Rosario on 10-30-2021 Hemoglobin Auto test strip Ql (U) Negative Negative [facility] Urine leukocyte esterase det ection by automated test stripOrdered By: Amanda Rosario on 10-30-2021 Leukocyte esterase Auto test strip Ql (U) Negative Negative [facility] Urobilinogen Auto test strip (U) [Mass/Vol]Ordered By: Amanda Rosario on 10-30-2021 Urobilinogen (U) [Mass/Vol] Normal mg/dL Normal [facility] pH Auto test strip (U)Ordere d By: Amanda Rosario on 10-30-2021 pH (U) 5.5 [pH] 5.0-9.0 [facility] Lab Reportson 07-31-2021 Lab Reports [id number] D:[address] [facility] RAD - MISCon 07-31-2021 RAD - MISC [id number] D:[address] [facility] HCG ( test) IADavidrapi d Ql (U)Ordered By: Amanda Rosario on 07-09-2021 HCG ( test) Ql (U) Negative [facility] Glucose Glucometer (BldC) [M ass/Vol]Ordered By: Aamnda Rosario on 07-01-2021 Glucose [Mass/Vol] 82 mg/dL [facility] Comment on above: Random Glucose Refer ence Range is dependent on time and content of last meal. Glucose of more than 200 mg/dL in a nonstressed, ambulatory subject supports the diagnosis of Diabetes Mellitus. 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 Will follow up with the pathology report once this is resulted Dictation software was used in the creation of this note and not corrected for typographical or grammatical errors Chief Complaint Postop History of Present [id number] woman who underwent wide excision right posterior calf melanoma with Parthenon flap reconstruction as well as right inguinal and iliac sentinel lymph node biopsy on 05/17/2021. Pathology report has not yet resulted. She is recovering well. Active Problems Malignant melanoma of lower leg, right (172.7) (C43.71) Allergies No Known Drug Allergies Recorded By: Florence Fernando; 05/30/2021 2:49:13 PM Vitals Vital Signs Recorded: 30May2021 02:47PM Geirppceomg04 C, Temporal Heart Ajmq600 Pqdjxbrkkgl90 Hitqmpdt359, RUE, Sitting Tnqcjcste85, RUE, Sitting Blood Pressure Cuff SizeAdult Glaywe449 cm Nwnrpu09.6 kg BMI Fycamhdmcc59.58 kg/m2 BSA Calculated1.77 O2 Sceilvfoyv31 Pain Scale0 Physical Exam Right groin wounds [...] These were compared to the original melanoma ([id number]) and are consistent with a metastatic focus [...] that were compared to the original melanoma (EA44-902) and are smaller with less cytoplasm compared [...] determined by the Department of Pathology at [facility]. The FDA does not require this [...] landis-yellow irregularly shaped piece of skin measuring 03f86w4dz. The specimen is embedded in toto. B: Received in formalin is a landis-yellow irregularly shaped piece of skin measuring 76g7t5yq. The specimen is embedded in toto. C: Received in formalin is a landis-yellow irregularly shaped piece of skin measuring 69m54n0dw. The specimen is embedded in toto. D: Received in formalin is a landis ellipse of skin measuring [id number], oriented by the surgeon with short stitch [...] Block 1 is at 12 o'clock. ink/05/21/2021 [facility] Dermatopathology Laboratory [place], [place] [id number] [place] [address], [facility] [address] Normal [facility] Comment on above: Performed By: #### D #### Dermatopathology HCG,URINEon 05-17-2021 Beta HCG ( test) Ql (U) Negative Normal Negative [place] Comment on above: Performed By: #### H CGU #### [facility] [address] [id number] LYMPH GLANDon 05-17-2021 LYMPH GLAND Patient Name: AILYN PITTMAN STUDY: LYMPH GLAND; 05/17/2021 12:45 pm INDICATION: Malignant melanoma of right posterior leg. COMPARISON: None. ACCESSION NUMBER(S): [id number] ORDERING CLINICIAN: SARAH LEIGH TECHNIQUE: DIVISION OF NUCLEAR MEDICINE RADIONUCLIDE SENTINEL LYMPH NODE LYMPHOSCINTIGRAPHY A total of 0.870 millicuries of Tc-99m tilmanocept ([employer]ymph[employer]odos [employer]) was injected intradermally in a circumferential pattern [...] as stated. This study was interpreted at [facility], [place], [place]. Electronically signed by: TAMY LAWTON MD Normal [place] NM Lymph Glandon 05-17-2021 NM Lymph node Views Normal [facility] rgery-A dmin Main Work Phone: No Panel Informationon 05-17 [facility] Work Phone: Order Reconciliationon [...] 4 days PRN pain, Dx: G89.18 Normal [place] Patient Profile - Preop v2on 05-17-2021 Patient Profile - Preop v2 Profile: Initial Info: How to be AddressedSamantha Spoken Language PreferredEnglish Source of Informationpatient Are you currently using the Personal Electronic Health Record or Ship MateCAREno Are you interested in learning more about [facility] for the management of your healthnot at this time Stated Reason for Admissionwide excision melanoma right posterior leg, keystone flap and sentinel lymph node biopsy Primary Contact Name and Numberleigh ann El [phone] Limitations on Visitors/Phone Callsnone Patient Belongingsremains with patient Patient Belongings Remaining with Patientclothing; cell phone/electronics Medications Brought to Hospitalno General Health: Weight in kg63.6 kilogram(s) Weight in tpd141.2 pound(s) Weight Methodstated Height in feet5 feet Height in inches8 inch(es) Height in cm172.7 centimeter(s) Height Methodstated BMI (kg/m2)21.324 square meter Patient or Family Member Reaction to Anesthesianever had anesthesia Blood Avoidance/Restrictionsn one Previous Transfusion Reactionno Health Mgmt: Symptoms/Conditions Managed at [facility] Are You no Are You Currently Breastfeedingno Barriers to Managing Healthnone Relationship/Environ: Living Arrangementshouse Lives Withsignificant other Resource/Environmental Concernsnone Anticipated Transition [place] Services Anticipated at Transitionnone Substance: Current or [...] instruction; written material Cultural Considerationsnone Developmental Considerationsnone Congregation Considerationsnone Other learner availableno Falls RiskPatient location auto qualifies him/her for HIGH RISK. Are there any cultural, spiritual, confucianist practices/values/needs that are important for us to knowno Do you want a visit/item from [facility] Would you like your University Services Program Associate/Pulverizing And Sifting Operator notifiedno Pain Scalenumerical 0-10 Pain Scale [...] 17-May-2021 09:34 by Arabella Luis (ERICK DOWELL) [facility] Preop Checkliston 05-17-2021 Preop Checklist Preop Checklist: Preop Checklist: Arrival [id number] Arrival Time08:55 Procedure Typewide excision melanoma right posterior leg, keystone flap and sentinel lymph node biopsy Temperature C37.1 degrees C Temperature F98.7 degrees F Heart Rate92 beats per minute Respiratory Rate16 breath per minute Blood Pressure Snbumdnk897 mm/Hg Blood Pressure Psoevxefy30 mm/Hg NPO [id number]-Raz-[id number] 22:00 Allergy Bandno known allergies Consent Signedyes [...] 09:36 by Arabella Luis (RN PRN) Normal [place] Urine Teston 05-17 HCG ( test) Ql (U) Negative Negative BZ-Tpkwule-L dmin Main Work Phone: Initial Visit (General Surge ry)on 05-02-2021 Initial Visit (General Surgery) Diagnoses/Problems Malignant melanoma of lower leg, right (172.7) (C43.71) *Orders Malignant melanoma of lower leg, right Urine Test; Status:Active - Retrospective By Protocol Authorization; Requested for:02May2021; Perform:Lab Services - Lab To Draw (Non-Blood Test); Due:[id number]; Last Updated By:Di Giles; 05/02/2021 3:07:40 PM;Ordered; [...] errors Chief Complaint Melanoma History of Present Zuxzvwj75-aidi-ona woman referred from [facility] for right [...] May 02 2021 4:04PM EST (Author) Normal [facility] Vital Signs Date Time Vital Sign Value Performing Clinician Facility 04-16-2025 14:02-0400 Body mass index (BMI) [Ratio] 26.4 kg/m2 Delvis Kt DO Work Phone: [facility] 03-08-2025 14:02-0400 Body weight 81.1 kg Delvis Kt DO Work Phone: [facility] 03-08-2025 14:02-0400 Diastolic blood pressure 64 mm[Hg] Delvis Kt DO Work Phone: [facility] 03-08-2025 14:02-0400 Systolic blood pressure 112 mm[Hg] Delvis Kt DO Work Phone: [facility] 02-21-2025 10:54-0400 Body mass index (BMI) [Ratio] 25.81 kg/m2 Delvis Kt DO Work Phone: [facility] 02-21-2025 10:54-0400 Body weight 79.29 kg Delvis Kt DO Work Phone: [facility] 02-21-2025 10:54-0400 Diastolic blood pressure 60 mm[Hg] Delvis Kt DO Work Phone: [facility] 02-21-2025 10:54-0400 Systolic blood pressure 110 mm[Hg] Delvis Kt DO Work Phone: [facility] 02-09-2025 10:41-0400 Body mass index (BMI) [Ratio] 25.22 kg/m2 Amanda TADEO Work Phone: [facility] 02-09-2025 10:41-0400 Body weight 77.47 kg Amanda TADEO Work Phone: [facility] 02-09-2025 10:41-0400 Diastolic blood pressure 68 mm[Hg] Amanda TADEO Work Phone: [facility] 02-09-2025 10:41-0400 Systolic blood pressure 118 mm[Hg] Amanda TADEO Work Phone: [facility] 01-25-2025 11:16-0500 Body mass index (BMI) [Ratio] 24.63 kg/m2 Delvis Kt DO Work Phone: [facility] 01-25-2025 11:16-0500 Body weight 75.66 kg Delvis Kt DO Work Phone: [facility] 01-25-2025 11:16-0500 Diastolic blood pressure 78 mm[Hg] Delvis Kt DO Work Phone: [facility] 01-25-2025 11:16-0500 Systolic blood pressure 124 mm[Hg] Delvis Kt DO Work Phone: [facility] 01-11-2025 14:27-0500 Body mass index (BMI) [Ratio] 24.04 kg/m2 Delvis Kt DO Work Phone: [facility] 01-11-2025 14:27-0500 Body weight 73.85 kg Delvis Kt DO Work Phone: [facility] 01-11-2025 14:27-0500 Diastolic blood pressure 58 mm[Hg] Delvis Kt DO Work Phone: [facility] 01-11-2025 14:27-0500 Systolic blood pressure 112 mm[Hg] Delvis Kt DO Work Phone: [facility] 12-28-2024 11:12-0500 Body mass index (BMI) [Ratio] 23.35 kg/m2 Delvis Kt DO Work Phone: [facility] 12-28-2024 11:12-0500 Body weight 71.72 kg Delvis Kt DO Work Phone: [facility] 12-28-2024 11:12-0500 Diastolic blood pressure 74 mm[Hg] Delvis Kt DO Work Phone: [facility] 12-28-2024 11:12-0500 Systolic blood pressure 120 mm[Hg] Delvis Kt DO Work Phone: [facility] 11-28-2024 14:41-0500 Body mass index (BMI) [Ratio] 22.74 kg/m2 Delvis Kt DO Work Phone: [facility] 11-28-2024 14:41-0500 Body weight 69.85 kg Delvis Kt DO Work Phone: [facility] 11-28-2024 14:41-0500 Diastolic blood pressure 70 mm[Hg] Delvis Kt DO Work Phone: [facility] 11-28-2024 14:41-0500 Systolic blood pressure 118 mm[Hg] Delvis Kt DO Work Phone: [facility] 10-24-2024 14:44-0500 Body mass index (BMI) [Ratio] 22 kg/m2 Delvis Kt DO Work Phone: [facility] 10-24-2024 14:44-0500 Body weight 67.59 kg Delvis Kt DO Work Phone: [facility] 10-24-2024 14:44-0500 Diastolic blood pressure 68 mm[Hg] Delvis Kt DO Work Phone: [facility] 10-24-2024 14:44-0500 Systolic blood pressure 114 mm[Hg] Delvis Kt DO Work Phone: [facility] 10-11-2024 14:39-0500 Body height 175.3 cm Mike Wagner MD Work Phone: [facility] 10-11-2024 14:39-0500 Body mass index (BMI) [Ratio] 21.56 kg/m2 Mike Wagner MD Work Phone: [facility] 10-11-2024 14:39-0500 Body temperature 97.5 [degF] Mike Wagner MD Work Phone: [facility] 10-11-2024 14:39-0500 Body weight 66.22 kg Mike Wagner MD Work Phone: [facility] 10-11-2024 14:39-0500 Diastolic blood pressure 52 mm[Hg] Mike Wagner MD Work Phone: [facility] 10-11-2024 14:39-0500 Heart rate 106 /min Mike Wagner MD Work Phone: [facility] 10-11-2024 14:39-0500 Respiratory rate 22 /min Mike Wagner MD Work Phone: [facility] 10-11-2024 14:39-0500 SaO2% (BldA) [Mass fraction] 99 % Mike Wagner MD Work Phone: [facility] 10-11-2024 14:39-0500 Systolic blood pressure 118 mm[Hg] Mike Wagner MD Work Phone: [facility] 09-26-2024 15:17-0500 Body mass index (BMI) [Ratio] 21.34 kg/m2 Delvis Kt DO Work Phone: [facility] 09-26-2024 15:17-0500 Body weight 65.55 kg Delvis Kt DO Work Phone: [facility] 09-26-2024 15:17-0500 Diastolic blood pressure 68 mm[Hg] Delvis Kt DO Work Phone: [facility] 09-26-2024 15:17-0500 Systolic blood pressure 116 mm[Hg] Delvis Kt DO Work Phone: [facility] 08-26-2024 10:04-0400 Body mass index (BMI) [Ratio] 20.97 kg/m2 [facility] 08-26-2024 10:04-0400 Body weight 64.41 kg [facility] 08-26-2024 10:04-0400 Diastolic blood pressure 82 mm[Hg] [facility] 08-26-2024 10:04-0400 Systolic blood pressure 118 mm[Hg] [facility] 05-22-2023 08:55-0400 Body temperature 97.8 [degF] MD Sarah Leigh Work Phone: [facility] 05-22-2023 08:55-0400 Body weight 69.85 kg MD Sarah Leigh Work Phone: [facility] 05-22-2023 08:55-0400 Diastolic blood pressure 68 mm[Hg] MD Sarah Leigh Work Phone: [facility] 05-22-2023 08:55-0400 Heart rate 79 /min MD Sarah Leigh Work Phone: [facility] 05-22-2023 08:55-0400 Respiratory rate 16 /min MD Sarah Leigh Work Phone: [facility] 05-22-2023 08:55-0400 SaO2% (BldA) [Mass fraction] 98 % MD Sarah Leigh Work Phone: [facility] 05-22-2023 08:55-0400 Systolic blood pressure 108 mm[Hg] MD Sarah Leigh Work Phone: [facility] 01-21-2023 14:57-0500 Body temperature 97.8 [degF] MD Sarah Leigh Work Phone: [facility] 01-21-2023 14:57-0500 Body weight 67.2 kg MD Sarah Leigh Work Phone: [facility] 01-21-2023 14:57-0500 Diastolic blood pressure 79 mm[Hg] MD Sarah Leigh Work Phone: [facility] 01-21-2023 14:57-0500 Heart rate 72 /min MD Sarah Leigh Work Phone: [facility] 01-21-2023 14:57-0500 Respiratory rate 16 /min MD Sarah Leigh Work Phone: [facility] 01-21-2023 14:57-0500 SaO2% (BldA) [Mass fraction] 98 % MD Sarah Leigh Work Phone: [facility] 01-21-2023 14:57-0500 Systolic blood pressure 119 mm[Hg] MD Sarah Leigh Work Phone: [facility] 07-08-2022 13:02-0400 Body height 172.72 cm MD Amanda Rosario Work Phone: [facility] 07-08-2022 13:02-0400 Body temperature 98 [degF] MD Amanda Rosario Work Phone: [facility] 07-08-2022 13:02-0400 Body weight 67.81 kg MD Amanda Rosario Work Phone: [facility] 07-08-2022 13:02-0400 Diastolic blood pressure 71 mm[Hg] MD Amanda Rosario Work Phone: [facility] 07-08-2022 13:02-0400 Heart rate 95 /min MD Amanda Rosario Work Phone: [facility] 07-08-2022 13:02-0400 Respiratory rate 20 /min MD Amanda Rosario Work Phone: [facility] 07-08-2022 13:02-0400 SaO2% (BldA) [Mass fraction] 97 % MD Amanda Rosario Work Phone: [facility] 07-08-2022 13:02-0400 Systolic blood pressure 115 mm[Hg] MD Amanda Rosario Work Phone: [facility] 05-30-2021 14:47-0400 Body height 173 cm Price Girard Work Phone: YP-Vzgcsro-Zgmmv Main Work Phone: 05-30-2021 14:47-0400 Body mass index (BMI) [Ratio] 21.58 kg/m2 Price Girard Work Phone: QJ-Rmmagjm-Pedkt Main Work Phone: 05-30-2021 14:47-0400 Body surface area Derived from formula 1.77 m2 Price Girard Work Phone: VZ-Nrscifj-Evmqw Main Work Phone: 05-30-2021 14:47-0400 Body temperature 98.6 [degF] Price Girard Work Phone: ZX-Lehukay-Opjmj Main Work Phone: 05-30-2021 14:47-0400 Body weight 64.6 kg Price Girard Work Phone: UB-Slxetim-Ceeoj Main Work Phone: 05-30-2021 14:47-0400 Diastolic blood pressure 77 mm[Hg] Price Girard Work Phone: DI-Gksartw-Osdqa Main Work Phone: 05-30-2021 14:47-0400 Heart rate 103 /min Price Girard Work Phone: MN-Krdaigr-Bmuso Main Work Phone: 05-30-2021 14:47-0400 Respiratory rate 16 /min Price Girard Work Phone: DQ-Ixgjnue-Ititi Main Work Phone: 05-30-2021 14:47-0400 SaO2% (BldA) [Mass fraction] 99 % Price Girard Work Phone: QL-Xirkreu-Mzwft Main Work Phone: 05-30-2021 14:47-0400 Systolic blood pressure 131 mm[Hg] Price Girard Work Phone: PZ-Emwpdby-Ypyzu Main Work Phone: 05-30-2021 14:47-0400 0 1 Price Girard Work Phone: FH-Zcxexbx-Yohsq Main Work Phone: Comment on above: Cristhian [...] Start: 08-19-2023 End: 08-19-2023 ambulatory Amanda Abraham Facility:[facility] Start: 05-22-2023 End: 05-22-2023 ambulatory MD Sarah Leigh Work Phone: [facility] Work Phone: Start: 05-22-2023 End: 05-22-2023 [...] Registered Recurring MD Sarah Leigh Work Phone: [facility] Work Phone: Start: 01-13-2023 End: 01-13-[address] DELVIS MERAZ . Facility:[facility] Start: 01-01-2023 Encounter for genera l adult medical examination without abnormal findings DR MIKE WAGNER [facility] Start: 12-31-2022 End: 01-01-[address] MIKE WAGNER Facility:[facility] Start: 12-31-2022 End: 01-01-2023 Encounter for general adult medical examination without abnormal findings DR MIKE WAGNER Facility:[facility] Start: 07-08-2022 End: 07-08-2022 Registered Recurring MD Amanda Rosario [facility] Start: 06-16-2022 End: 06-16-[address] DELVIS MERAZ . Facility:[facility] Start: 04-09-[address] AMANDA ROSARIO Facility :[facility] Start: 06-22-2021 Chart Update Price Girard Work Phone[facility] Work Phone: Start: 06-18-2021 [facility] Start: 05-30-2021 Postop follow up vis it related to original px Price Girard Work Phone: KH-Fbnqqhi-Jzfln Main Work Phone: Procedures Date Procedure Procedure [...] 07-24-2025 Influenza vaccination Influenza Vaccine (Season Ended) [facility] Start: 03-15-2025 End: 03-15-2025 Patient encounter procedure 03/15/2025 2:00 PM EDT Routine [facility] [address] [place] [address] Delvis Meraz, DO [address] [address] [facility] Start: 03-08-2025 End: 03-08-2026 [...] AM EDT Routine [facility] [address] [address] Delvis Meraz DO [address] [place], [place] [id number] [facility] Start: 02-09-2025 End: 02-09-2025 Patient encounter procedure 02/09/2025 10:20 AM EDT Routine [facility] [address] [facility] [place] [address] Amanda Gonzalez PA [address] [place], [place] [id number] [facility] Start: 01-25-2025 End: 01-25-2025 Patient encounter procedure 01/25/2025 11:00 AM EST Routine [facility] [address] [facility] [place] [address] Delvis Meraz, DO [address] [place] [address] [facility] Start: 01-11-2025 End: 01-11-2025 Patient encounter procedure 01/11/2025 2:00 PM EST Routine [facility] [address] [address] Delvis Meraz, DO [address] [address] [facility] Start: 12-28-2024 End: 12-28-2025 CBC panel - Blood by Automated count CBC Lab Routine Diabetes mellitus screening Expected: 12/28/2024 (Approximate), Expires: 12/28/2025 [facility] Work Phone: Comment on above: Expected: 12/28/2024 (Approximate), Expi res: 12/28/2025 Start: 12-28-2024 End: 12-28-2025 Measurement of glucose 1 hour after glucose challenge for glucose tolerance test Glucose tolerance, 1 hour Lab Routine Diabetes mellitus screening Expected: 12/28/2024 (Approximate), Expires: 12/28/2025 [facility] Comment on above: Expected: 12/28/2024 (Approximate), Expi res: 12/28/2025 Start: 12-28-2024 End: 12-28-2024 Patient encounter procedure [facility] Comment on above: Arrived Start: 12-27-2024 End: 12-27-2024 Patient encounter procedure 12/27/2024 8:40 AM EST Routine [facility] [address] [address] Delvis Meraz, DO [address] [place] [address] [facility] Start: 11-28-2024 End: 11-28-2024 Patient encounter procedure 11/28/2024 2:10 PM EST Routine [facility] [address] [address] Delvis Meraz, DO [address] [place] [address] [facility] Start: 10-24-2024 End: 10-24-2024 Patient encounter procedure 10/24/2024 2:10 PM EST Routine [facility] [address] [address] Delvis Meraz, DO [address] [address] [facility] Start: 10-24-2024 End: 10-24-2025 Alpha fetoprotein, maternal Alpha fetoprotein, maternal Lab Routine Second trimester 16 weeks gestation of Expected: 10/24/2024 (Approximate), Expires: 10/24/2025 [facility] Comment on above: Expected: 10/24/2024 [...] PM EST Routine [facility] [address] [address] Delvis Meraz, DO [address] [place] [address] [facility] Start: 08-26-2024 End: 08-26-2025 ABO/Rh ABO/Rh Lab Routine Missed menses , unspecified gestational age Expected: 08/26/2024 (Approximate), Expires: 08/26/2025 [facility] Comment on above: Expected: 08/26/2024 [...] Missed menses Expected: 08/26/2024 (Approximate), Expires: 08/26/2025 [facility] Comment on above: Expected: 08/26/2024 (Approximate), Expi res: 08/26/2025 Start: 08-26-2024 End: 08-26-2024 ambulatory 08/26/2024 10:00 AM EDT Initial [facility] [address] [place] [address] [facility] Start: 08-26-2024 End: 08-26-2024 Professional / ancillary services management 08/26/2024 9:30 AM EDT Ancillary Procedure [facility] [address] [place] [id number] [facility] Start: 08-23-2024 End: 08-23-2024 Patient encounter procedure 08/23/2024 10:50 AM EDT Routine [facility] [address] [place] [address] Delvis Meraz, [address] [address] Arrived [facility] Comment on above: Arrived Start: 07-24-2024 Influenza vaccination Influenza Vaccine (#1) [facility] Start: 05-23-2022 [facility] Start: 04-25-2022 [facility] Start: 03-28-2022 [facility] Start: 02-28-2022 [facility] Start: 01-31-2022 [facility] Start: 01-28-2022 [facility] Start: 12-31-2021 [facility] Start: 12-24-2021 [facility] Start: 11-29-2021 [facility] Start: 11-01-2021 [facility] Start: 10-28-2021 [facility] Start: 10-02-2021 End: 10-03-2021 [facility] Start: 09-06-2021 [facility] Start: 09-03-2021 [facility] Start: 08-08-2021 [facility] Start: 07-11-2021 [facility] Adrenocorticotropic hormone measurement [facility] Bacteria identified in Urine by Culture Urine culture Microbiology Routine Missed menses Ordered: 08/26/2024 [facility] Comment on above: Ordered: 08/26/2024 Bacteria identified in Urine by Culture Urine culture Microbiology Routine Hematuria, unspecified type Ordered: 10/24/2024 [facility] Comment on above: Ordered: 10/24/2024 Bacteria identified in Urine by Culture Urine culture Microbiology Routine Urinary tract infection without hematuria, site unspecified Ordered: 12/28/2024 [facility] Comment on above: Ordered: 12/28/2024 CBC W Auto Different ial panel - Blood CBC and differential Lab Routine Missed menses , unspecified gestational age Ordered: 08/26/2024 [facility] Comment on above: Ordered: 08/26/2024 CBC W Auto Different ial panel - Blood CBC and differential Lab Routine Low hemoglobin Ordered: 01/25/2025 [facility] Work Phone: Comment on above: Ordered: 01/25/2025 CHLAMYDIA TRACHOMATI S (GENITO/STI) CHLAMYDIA TRACHOMATIS (GENITO/STI) Lab Routine STD exposure Ordered: 10/24/2024 [facility] Comment on above: Ordered: 10/24/2024 Comprehensive metabo lic 1999 panel - Serum or Plasma [facility] Work Phone: Comprehensive metabo lic 1999 panel - Serum or Plasma [facility] Comprehensive metabo lic 1999 panel - Serum or Plasma [facility] Comprehensive metabo lic 1999 panel - Serum or Plasma [facility] CT Abdomen and Pelvi s W contrast IV [facility] Work Phone: CT Abdomen and Pelvi s W contrast IV [facility] CT Abdomen and Pelvi s W contrast IV [facility] CT Chest W contrast IV [facility] Work Phone: CT Chest W contrast IV [facility] CT Chest W contrast IV [facility] Ferritin [Mass/volum e] in Serum or Plasma [facility] Work Phone: Hemoglobin A1c/Hemoglobin.total in Blood Hemoglobin A1c Lab Routine Missed menses , unspecified gestational age Ordered: 08/26/2024 [facility] Comment on above: Ordered: 08/26/2024 Hepatitis B virus blevins rface Ag [Presence] in Serum or Plasma by Immunoassay Hepatitis B surface antigen Lab Routine Missed menses , unspecified gestational age Ordered: 08/26/2024 [facility] Comment on above: Ordered: 08/26/2024 Hepatitis C virus Ab [Presence] in Serum or Plasma by Immunoassay Hepatitis C antibody Lab Routine Missed menses , unspecified gestational age Ordered: 08/26/2024 [facility] Comment on above: Ordered: 08/26/2024 HIV-1/HIV-2 antigen/ antibody combination immunoassay HIV-1 and HIV-2 antibodies Lab Routine Missed menses , unspecified gestational age Ordered: 08/26/2024 [facility] Comment on above: Ordered: 08/26/2024 Lactate dehydrogenas e [Enzymatic activity/volume] in Unspecified specimen [facility] Work Phone: Neisseria gonorrhoea e DNA [Presence] in Unspecified specimen by PARMINDER with probe detection Neisseria gonorrhea DNA probe, direct Lab Routine STD exposure Ordered: 10/24/2024 [facility] Comment on above: Ordered: 10/24/2024 Reagin Ab [Presence] in Serum by RPR RPR Lab Routine Missed menses , unspecified gestational age Ordered: 08/26/2024 [facility] Comment on above: Ordered: 08/26/2024 Rubella antibody, IgG Rubella an tibody, IgG Lab Routine Missed menses , unspecified gestational age Ordered: 08/26/2024 [facility] Comment on above: Ordered: 08/26/2024 SURESWAB(R) ADVANCED VAGINITIS PLUS, TMA SURESWAB(R) ADVANCED VAGINITIS PLUS, TMA Pathology and Cytology Routine Vaginal discharge Ordered: 10/24/2024 [facility] Work Phone: Comment on above: Ordered: 10/24/2024 Thyrotropin [Units/v olume] in Serum or Plasma [facility] Thyroxine (T4) free [Mass/volume] in Serum or Plasma [facility] Triiodothyronine (T3 ) Free [Mass/volume] in Serum or Plasma [facility] Work Phone: [facility] Immunizations Immunization Date Immunization Notes Care Provider Molly chinchilla 07-09-2018 influenza virus vaccine, unspecified formulation Generic Provider [facility] 1995 pneumococcal conjuga te vaccine, 7 valent Essence Blevins Dept. 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 Payers Date Payer Category Payer Unknown [id number] 2022 [facility] Blue Shield 1.2.8 [id number] 2022 Unknown 2021 Self-pay [id number] 2021 Unknown [id number] 2021 Unknown [id number] 2019 Unknown [id number] 1995 Unknown [id number] 2.16.84 0.1.114097.3.579.2.593 1997 Unknown [id number] 2.16.84 0.1.140180.3.579.2.593 1997 Unknown [id number] 2.16.84 0.1.514825.3.579.2.593 1997 Unknown [id number] 2.16.84 0.1.085701.3.579.2.593 1997 Unknown [id number] 2.16.84 0.1.837012.3.579.2.593 1997 Unknown [id number] 2.16.84 0.1.187855.3.579.2.593 1997 Unknown [id number] 2.16.84 0.1.526631.3.579.2.593 1997 Unknown [id number] 2.16.84 0.1.172658.3.579.2.593 1997 Unknown [id number] 2.16.84 0.1.633595.3.579.2.593 1997 Unknown [id number] 2.16.84 0.1.110873.3.579.2.593 1997 Unknown [id number] 2.16.84 0.1.176309.3.579.2.1259 1997 Unknown [id number] 2.16.84 0.1.582592.3.579.2.1258 1997 Unknown [id number] 2.16.84 0.1.548901.3.579.2.1258 1997 Unknown [id number] 2.16.84 0.1.364731.3.579.2.1258 1997 Unknown [id number] 2.16.84 0.1.466602.3.579.2.1258 1997 Unknown [id number] 2.16.84 0.1.069383.3.579.2.1258 1997 Unknown [id number] 2.16.84 0.1.590652.3.579.2.1258 1997 Unknown [id number] 2.16.84 0.1.754058.3.579.2.1258 1997 Unknown [id number] 2.16.84 0.1.203454.3.579.2.1258 1997 Unknown [id number] 2.16.84 0.1.489899.3.579.2.9 1959 Unknown [id number] 1959 Unknown [id number] Unknown [id number] 2.16.8 40.1.784376.3.579.2.531 Social History Date Type Detail Facility Start: 06-18-2021 Dept. 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 Start: 1995 Sex Assigned At Female [facility] Start: 07-08-2022 End: 04-10-2023 Tobacco smoking status NHIS Never smoked tobacco (finding) [facility] Start: 04-10-2023 Tobacco use and exposure Smokeless tobacco non-user [facility] Start: 02-22-2024 End: 03-08-2025 Alcoholic beverage intake Ex-drinker (finding) [facility] Start: 02-22-2024 End: 10-11-2024 History of Social function [facility] Start: 02-22-2024 End: 10-11-2024 Social connection and isolation panel [facility] Do you belong to any clubs or organizations such as anglican groups, unions, fraternal or athletic groups, or [...] nursing note reviewed. Exam conducted with a spindle plumber present. Vitals: Estimated body mass index is [...] Delvis Meraz DO documented in this encounter [facility] 02-21-2025 History of Presen t illness Narrative [...] nursing note reviewed. Exam conducted with a spindle plumber present. Vitals: Estimated body mass index is [...] of: NALDO Flaherty documented in this encounter [facility] 02-09-2025 History of Presen t illness Narrative [...] nursing note reviewed. Exam conducted with a spindle plumber present. Vitals: Estimated body mass index is [...] of: CARLYLE Flaherty documented in this encounter [facility] 01-25-2025 History of Presen t illness Narrative [...] nursing note reviewed. Exam conducted with a spindle plumber present. Vitals: Estimated body mass index is [...] Delvis Meraz DO documented in this encounter [facility] 01-11-2025 History of Presen t illness Narrative [...] nursing note reviewed. Exam conducted with a spindle plumber present. Vitals: Estimated body mass index is [...] Delvis Meraz DO documented in this encounter [facility] 12-28-2024 History of Presen t illness Narrative [...] nursing note reviewed. Exam conducted with a spindle plumber present. Vitals: Estimated body mass index is [...] Delvis Meraz DO documented in this encounter [facility] 11-28-2024 History of Presen t illness [...] nursing note reviewed. Exam conducted with a spindle plumber present. Vitals: Estimated body mass index is [...] Delvis Meraz DO documented in this encounter [facility] 10-24-2024 History of Presen t illness [...] nursing note reviewed. Exam conducted with a spindle plumber present. Vitals: Estimated body mass index is [...] Delvis Meraz DO documented in this encounter [facility] 10-11-2024 History of Presen t illness [...] 300 MG capsule documented in this encounter [facility] 09-26-2024 History of Presen t illness [...] nursing note reviewed. Exam conducted with a spindle plumber present. Vitals: Estimated body mass index is [...] or undercooked meat, and [facility]. Patient has been consulted regarding any [...] Amanda Gonzalez PA-C documented in this encounter [facility] 08-26-2024 History of Presen t illness [...] or undercooked meat, and [facility]. Patient has also been advised to [...] by: Jasmyne Segura documented in this encounter [facility] 05-23-2023 Progress note Note Date/Time May 22, 2023 9:03[facility] [place] [address] Hem/Onc Follow Up Note - OP Signed Patient: Ailyn Baron MR#: [id number] : 1995 Acct:[id number] Age/Sex: 27 / F Type: REG RCR [...] of restaging CT CAP by phone with WEB DESIGNER in October--no evidence of recurrence. Saw dermatology [...] dyspepsia. We will coordinate parenteral iron at [facility] per her request. Normal thyroid, cortisol,and [...] trauma. She was seen by dermatology at [facility] in [place] and underwent a biopsy of the right [...] 3. Venofer for iron deficiency anemia at [facility] 03/2022 ROS Details: All systems reviewed [...] Nivolumab infusion reaction in February 2022. [facility] - History Attestation statement: The following information was validated with the patient. Source: Old Records Reviewed - Medical History Medical History: Medical History (Last Reviewed 05/23/23 @ 10:52 by mAanda Rosario MD) Anxiety LPRD (laryngopharyngeal reflux disease) [...] DAILY PRN Anxiety 06/18/21 [History Confirmed 05/22/23] NXP-orvb-PL-omega 3-fat com #1 27 mg-1 mg-300 mg [...] Creatinine Clear 154.92, Sodium 136, Potassium 4.2, Tmdyvsme607, Carbon Dioxide 26.1, Anion Gap 10.1, BUN [...] % (Auto) 79.8, Lymph % (Auto) 12.8, Mchenry % (Auto) 6.4, Eos % (Auto) 0.6, Baso % (Auto) 0.4, Nucleat RBC Rel Count 0.2, Neut # (Auto) 8.2 H, Lymph # (Auto) 1.3, Mchenry # (Auto) 0.7, Eos # (Auto) 0.1, [...] 4% with ferritin 7. Coordinated Venofer infusionsat [facility] (300mg IV x 3 doses) 03/2022 with followup CBC, serum iron profile, and ferritin in one month. Consider GI evaluation for iron deficiency. 07/09/2022: She is doing well on oral iron recommended by her cupola melter helper. She does not plan to have children anytime soon, but discussed with her cupola melter helper the best iron supplementation to be [...] for coordination of care (as documented) and qrmg-aa-lfag counseling of patient and/or family. Dictated By: Amanda Rosario MD DD/ 1 Signed By: <Electronically signed by MD Amanda Rosario> 05/23/23 1106 [facility] Work Phone: 1(132) 726-860703-01-2023 Progress note Author Amanda Rosario [facility] January 21, 2023 8:51pm Note Date/Time January 21, 2023 3:01 pm [facility] [place] [address] Hem/Onc Follow Up Note - OP Signed Patient: Ailyn Baron MR#: [id number] : 1995 Acct:[id number] Age/Sex: 27 / F Type: REG RCR Copies to: MD Mike Ewing MD~ Subjective Date/Time of Service: Date of Service: 01/21/2023 Time of Service: 15:00 Chief Complaint: Patient is here today for a 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 No new concerns HPI: 01/21/2023: Ailyn had review of restaging CT CAP by phone with WEB DESIGNER in October--no evidence of recurrence. Saw dermatology [...] dyspepsia. We will coordinate parenteral iron at [facility] per her request. Normal thyroid, cortisol,and [...] trauma. She was seen by dermatology at [facility] in [place] and underwent a biopsy of the right [...] 3. Venofer for iron deficiency anemia at [facility] 03/2022 ROS Details: All systems reviewed [...] Mild [facility] reaction in February 2022. [facility] History Attestation statement: The following information was validated with the patient. Source: Old Records Reviewed - Medical History Medical History: Medical History (Last Reviewed 01/21/23 @ 20:37 by Amnada Rosario MD) Anxiety LPRD (laryngopharyngeal [...] DAILY PRN Anxiety 06/18/21 [History Confirmed 01/21/23] NEV-qytj-NR-omega 3-fat com #1 27 mg-1 mg-300 mg [...] 4% with ferritin 7. Coordinated Venofer infusionsat [facility] (300mg IV x 3 doses) 03/2022 with followup CBC, serum iron profile, and ferritin in one month. Consider GI evaluation for iron deficiency. 07/09/2022: She is doing well on oral iron recommended by her cupola melter helper. She does not plan to have children anytime soon, but discussed with her cupola melter helper the best iron supplementation to be [...] for coordination of care (as documented) and zfpm-md-ucph counseling of patient and/or family. Dictated By: Amanda Rosario MD DD/ 1500 Signed By: <Electronically signed by MD Amanda Rosario> 01/21/232050 [facility] Work Phone: 1(992) 403-772808-17-2022 Progress note Author Ale Malone [facility] July 09, 2022 1:35pm Note Date/Time July 08, 2022 1: 31pm [facility] [place] [address] Hem/Onc Follow Up Note - OP Signed with Addenda Patient: Ailyn Baron MR#: [id number] : 1995 Acct:[id number] Age/Sex: 27 / F Type: REG RCR [...] dyspepsia. We will coordinate parenteral iron at [facility] per her request. Normal thyroid, cortisol,and [...] trauma. She was seen by dermatology at [facility] in [place] and underwent a biopsy of the right [...] % (Auto) 61.2, Lymph % (Auto) 26.6, Mchenry % (Auto) 9.7, Eos % (Auto) 1.2, Baso % (Auto) 1.3, Neut # (Auto) 3.4, Lymph # (Auto) 1.5, Mchenry # (Auto) 0.5, Eos# (Auto) 0.1, Baso [...] ferritin 7. Will have Venofer infusions at [facility] (300mg IV x 3 doses) with followup CBC, serum iron profile,and ferritin in one month. Consider GI evaluation for iron deficiency. 07/09/2022: She is doing well on oral iron recommended by her cupola melter helper. She does not plan to have children anytime soon, but discussed with her cupola melter helper the best iron supplementation to be [...] for coordination of care (as documented) and tfwj-qj-jiry counseling of patient and/or family. Dictated By: Ale Malone APRN DD/ 1331 Signed By: <Electronically signed by KIKI Malone> 07/09/22 0958 [facility] Work Phone: 1(609) 596-960405-12-2022 Progress note Author Amanda Rosario [facility] April 03, 2022 8:56pm Note Date/Time April 02, 2022 8:30p m [facility] [place] [address] Hem/Onc Follow Up Note - OP Signed Patient: Ailyn Baron MR#: [id number] : 1995 Acct:[id number] Age/Sex: 26 / F Type: REG RCR [...] dyspepsia. We will coordinate parenteral iron at [facility] per her request. Normal thyroid, cortisol,and [...] trauma. She was seen by dermatology at [facility] in [place] and underwent a biopsy of the right [...] Nivolumab infusion reaction in February 2022. [facility] - History Attestation statement: The following information [...] Creatinine Clear 115.14, Sodium 136, Potassium 4.1, Nncqtpfh424, Carbon Dioxide 24.5, BUN 9, Creatinine 0.76, [...] % (Auto) 46.7, Lymph % (Auto) 30.6, Mchenry % (Auto) 20.8, Eos % (Auto) 0.9, Baso % (Auto) 1.0, Neut # (Auto) 1.6 L, Lymph # (Auto) 1.1, Mchenry # (Auto) 0.7, Eos # (Auto) 0.0, [...] ferritin 7. Will have Venofer infusions at [facility] (300mg IV x 3 doses) with [...] for coordination of care (as documented) and askc-ji-ddni counseling of patient and/or family. Dictated By: Amanda Rosario MD DD/ 28 Signed By: <Electronically signed by MD Amanda Rosario> 04/03/222055 [facility] Work Phone: 1(746) 837-712402-23-2022 Progress note Author Amanda Rosario [facility] January 15, 2022 9:15pm Note Date/Time January 15, 2022 11:55am [facility] [place] [address] Hem/Onc Follow Up Note - OP Signed Patient: Ailyn Pittman MR#: [id number] : 1995 Acct:[id number] Age/Sex: 26 / F Type: REG RCR [...] trauma. She was seen by dermatology at [facility] in [place] and underwent a biopsy of the right [...] for coordination of care (as documented) and pfrd-az-vujd counseling of patient and/or family. Dictated By: Amanda Rosario MD DD/ 1155 Signed By: <Electronically signed by MD Amanda Rosario> 01/15/22 2118 [facility] Work Phone: [phone]) 781-415911-11-2021 Progress note [facility] October 03, 2021 10:47am Note Date/Time October 03, 2021 10:34am [facility] [place] [id number] Hem/Onc Follow Up Note - OP Signed Patient: Ailyn Pittman MR#: [id number] : 1995 Acct:[id number] Age/Sex: 26 / F Type: REG RCR [...] trauma. She was seen by dermatology at [facility] in [place] and underwent a biopsy of the right [...] for environmental allergies and food allergies. [facility] - Medical History Medical History: Medical History [...] Creatinine Clear 112.19, Sodium 139, Potassium 4.1, Bmgaessm079, Carbon Dioxide 26.4, BUN 9, Creatinine 0.78, [...] % (Auto) 66.7, Lymph % (Auto) 23.1, Mchenry % (Auto) 8.3, Eos % (Auto) 1.0, Baso % (Auto) 0.9, Neut # (Auto) 5.0, Lymph # (Auto) 1.7, Mchenry # (Auto) 0.6, Eos# (Auto) 0.1, Baso [...] for coordination of care (as documented) and woui-hh-gqya counseling of patient and/or family. Dictated By: Denia Alvares APRN DD/ 1025 Signed By: <Electronically signed by KIKI Alvares> 10/03/21 1047 [facility] Work Phone: [phone]) [phone] Progress note Author Amanda Rosario [facility] July 19, 2021 12:54pm Note Date/Time July 18, 2021 2: 10pm [facility] [place] [address] Hem/Onc Follow Up Note - OP Signed Patient: Ailyn Pittman MR#: [id number] : 1995 Acct:[id number] Age/Sex: 26 / F Type: REG RCR [...] trauma. She was seen by dermatology at [facility] in [place] and underwent a biopsy of the right [...] for environmental allergies and food allergies. 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 Dictated By: Amanda Rosario MD DD/ 1409 Signed By: <Electronically signed by MD Amanda Rosario> 07/19/21 1256 [facility] Work Phone: 1([phone]) [phone] Consult note Author Amanda Rosario [facility] June 24, 2021 10:09pm Note Date/Time June 24, 2021 2:1 8pm [facility] [place] [address] Hem/Onc Consult Note - OP Signed Patient: Ailyn Pittman MR#: [id number] : 1995 Acct:[id number] Age/Sex: 26 / F Type: REG RCR [...] trauma. 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 Note Recipients: Price Girard MD - [id number] [] Bettina Madera, [facility] - [phone] [] Attestation: Note Completion: Attending AttestationI performed the procedure without a resident Electronic Signatures: Sarah Leigh) (Signed 17-May-2021 18:18) Authored: Post-Operative Note, Chart Review, Note Completion Last Updated: 17-May-2021 18:18 by Sarah Leigh)[place] 05-17-2021 History of Present illness Bbsvwbhqf98-fdrx-azy woman who underwent wide excision right posterior calf melanoma with Parthenon flap reconstruction as well as right inguinal and iliac sentinel lymph node biopsy on 05/17/2021. Pathology report has not yet resulted. She is recovering well.[facility] Main Work Phone: 1(238) 205-163206-25-2021 History of Present illness Narrative 25-year-old woman who underwent wide excision right posterior calf melanoma with Parthenon flap reconstruction as well as right inguinal and iliac sentinel lymph node biopsy on 05/17/2021. Pathology report has not yet resulted. She is recovering well.[facility] Work Phone: 1([phone]) 532-205806-25-2021 NoteHistory & Physical Reviewed: /Lactating: Are You [...] Patient Profile - Preop v2 17-May-2021 09:27[facility]06-22-2021 NoteAccession #: [id number] Pathologist: ANUJA OLIVO MD Date of Procedure: 05/14/2021 Date Received: 05/14/2021 Submitting Physician: SARAH LEIGH MD Location: [facility] Copy To/Referring/Attending: ROLY EDEG DO FINAL DIAGNOSIS 2 SLIDES, [facility] #[id number] (BX: 04/23/2021) SKIN, RT POST LEG, SHAVE [...] MD. CANCER SUMMARY REPORT A. 2 SLIDES, [facility] #[id number] (BX: 04/23/2021): SPECIMEN Procedure: Biopsy, shave Specimen [...] report. Primary Tumor (pT): pT3b ADDITIONAL TESTING FLOOR CARE TECHNICIAN BLOCKS: Tumor Block: CSPL slide [id number] Electronically Signed Out By ANUJA OLIVO MD/BEBETO Microscopic Description: Microscopic examination performed. Clinical History: SHAVE/ BCC VS MM VS PG 1.9 X 1.9CM Specimens Submitted As: A: 2 SLIDES, [facility] #[id number] (BX: 04/23/2021) Gross Description: Received for consultation from [facility] are two slides labeled [id number] (BX: 04/23/2021) along with the corresponding pathology report. Slide/Block Description 2 SLIDES, [id number]. Keep Slides: N Slides Returned: N [facility]:Performed By: #### D #### DermatopathologyEvaluation noteN/ADept. 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 Evaluation note* Diagnosis Onset Date Resolution Status Iron deficiency anemia acute Chiari malformation type I c hronic Edema of right lower extremity chronic Encounter for antineoplastic immunotherapy chronic Malignant melanoma of right lower leg chronic [facility] Work Phone: Evaluation note* Diagnosis Onset Date Resolution Status Chiari malformation type I c hronic Edema of right lower extremity chronic Encounter for antineoplastic immunotherapy chronic Iron deficiency anemia chron ic Malignant melanoma of right lower leg chronic [facility] Work Phone: Evaluation noteNo assessment information available [facility] Work Phone: Evaluation note* Diagnosis Missed [...] Work Phone: Progress note Author Ale Malone [facility] July 09, 2022 1:35pm Note Date/Time July 08, 2022 1: 31pm [facility] at [address] [address] Hem/Onc Follow Up Note - OP Signed with Addenda Patient: Ailyn Baron MR#: [id number] : 1995 Acct:[id number] Age/Sex: 27 / F Type: REG RCR [...] dyspepsia. We will coordinate parenteral iron at [facility] per her request. Normal thyroid, cortisol,and [...] trauma. She was seen by dermatology at [facility] in [place] and underwent a biopsy of the right [...] % (Auto) 61.2, Lymph % (Auto) 26.6, Mchenry % (Auto) 9.7, Eos % (Auto) 1.2, Baso % (Auto) 1.3, Neut # (Auto) 3.4, Lymph # (Auto) 1.5, Mchenry # (Auto) 0.5, Eos# (Auto) 0.1, Baso [...] ferritin 7. Will have Venofer infusions at [facility] (300mg IV x 3 doses) with followup CBC, serum iron profile,and ferritin in one month. Consider GI evaluation for iron deficiency. 07/09/2022: She is doing well on oral iron recommended by her cupola melter helper. She does not plan to have children anytime soon, but discussed with her cupola melter helper the best iron supplementation to be [...] for coordination of care (as documented) and fggx-bx-gnst counseling of patient and/or family. Dictated By: Ale Malone APRN DD/ 1331 Signed By: <Electronically signed by KIKI Malone> 07/09/22 0958 [facility] Work Phone: Progress note Author Amanda Rosario [facility] January 21, 2023 8:51pm Note Date/Time January 21, 2023 3:01 pm [facility] [place] [id number] Hem/Onc Follow Up Note - OP Signed Patient: Ailyn Baron MR#: [id number] : 1995 Acct:[id number] Age/Sex: 27 / F Type: REG RCR Copies to: MD Mike Ewing MD~ Subjective Date/Time of Service: Date of Service: 01/21/2023 Time of Service: 15:00 Chief Complaint: Patient is here today for a 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 No new concerns HPI: 01/21/2023: Ailyn had review of restaging CT CAP by phone with WEB DESIGNER in October--no evidence of recurrence. Saw dermatology [...] dyspepsia. We will coordinate parenteral iron at [facility] per her request. Normal thyroid, cortisol,and [...] trauma. She was seen by dermatology at [facility] in [place] and underwent a biopsy of the right [...] 3. Venofer for iron deficiency anemia at [facility] 03/2022 ROS Details: All systems reviewed [...] Nivolumab infusion reaction in February 2022. [facility] - History Attestation statement: The following information [...] DAILY PRN Anxiety 06/18/21 [History Confirmed 01/21/23] ETJ-slly-PN-omega 3-fat com #1 27 mg-1 mg-300 mg [...] 4% with ferritin 7. Coordinated Venofer infusionsat [facility] (300mg IV x 3 doses) 03/2022 with followup CBC, serum iron profile, and ferritin in one month. Consider GI evaluation for iron deficiency. 07/09/2022: She is doing well on oral iron recommended by her cupola melter helper. She does not plan to have children anytime soon, but discussed with her cupola melter helper the best iron supplementation to be [...] for coordination of care (as documented) and [id number] counseling of patient and/or family. Dictated By: Amanda Rosario MD DD/ 1500 Signed By: <Electronically signed by MD Amanda Rosario> 01/21/232050 [facility] Work Phone: Reason for referral (narrative)* [...] section and content) DATE CREATED AUTHOR 05/31/2021 [facility] DATE CREATED AUTHOR AUTHOR'S ORGANIZ ATION 06/18/2021 [place] DATE CREATED AUTHOR AUTHOR'S ORGANIZ ATION 08/01/2021 [facility] DATE CREATED AUTHOR AUTHOR'S ORGANIZ ATION 01/18/2022 [facility] DATE CREATED AUTHOR AUTHOR'S ORGANIZ ATION 04/08/2023 [facility] DATE CREATED AUTHOR AUTHOR'S ORGANIZ ATION 09/25/2024 [facility] DATE CREATED AUTHOR AUTHOR'S ORGANIZ ATION 02/22/2025 [facility] d[facility] Specialists EPIC Care Teams (unrecognized sec tion and content) Team Status: Active Member Role Status Dates Mike Wagner MD Primary Care Provider Active Team Status: Active Member Role Status Dates Amanda Rosario MD Attending Provider Active Sarah Leigh MD Referring Provider Active Mike Wagner MD Primary Care Provider Active Hvac Engineering Technician Relationship Specialty Start Date End Date Mike Wagner MD [address] [place] [address] PCP - General Family Medicine 02/09/24 Shaikh Melendrez MD [address] [place] [address] PCP - [place] [employer] 08/23/23 Hvac Engineering Technician Relationship Specialty Start Date End Date Mike Wagner MD [address] [place] [address] PCP - General Family Medicine 02/09/24 Shaikh Melendrez MD [address] [place] [address] PCP - [place] [employer] 08/23/23 Hvac Engineering Technician Relationship Specialty Start Date End Date Mike Wagner MD [address] [place] [address] PCP - General Family Medicine 02/09/24 Shaikh Melendrez MD [address] [place] [address] PCP - [place] [employer] 08/23/23 Hvac Engineering Technician Relationship Specialty Start Date End Date Mike Wagner MD [address] [place] [address] PCP - General Family Medicine 02/09/24 Melissa Zhou NP [address] [place] [address] PCP - [place] [employer] 08/23/24 Hvac Engineering Technician Relationship Specialty Start Date End Date Mike Wagner MD [address] [place] [address] PCP - General Family Medicine 02/09/24 Melissa Zhou NP [address] [place] [address] PCP - [place] [employer] 08/23/24 Hvac Engineering Technician Relationship Specialty Start Date End Date Mike Wagner MD [address] [place] [address] PCP - General Family Medicine 02/09/24 Melissa Zhou NP [address] [place] [address] PCP - [place] [employer] 08/23/24 Hvac Engineering Technician Relationship Specialty Start Date End Date Mike Wagner MD [address] [place] [address] PCP - General Family Medicine 02/09/24 Melissa Zhou NP [address] [place] [address] PCP - [place] [employer] 08/23/24 Hvac Engineering Technician Relationship Specialty Start Date End Date Mike Wagner MD [address] [place] [address] PCP - General Family Medicine 02/09/24 Melissa Zhou NP [address] [place] [address] PCP - [place] [employer] 08/23/24 Hvac Engineering Technician Relationship Specialty Start Date End Date Mike Wagner MD [address] [place] [address] PCP - General Family Medicine 02/09/24 Shaikh Melendrez MD [address] [place] [address] PCP - [place] [employer] 08/23/23 Hvac Engineering Technician Relationship Specialty Start Date End Date Mike Wagner MD [address] [place] [address] PCP - General Family Medicine 02/09/24 Melissa Zhou NP [address] [place] [address] PCP - [place] [employer] 08/23/24 Hvac Engineering Technician Relationship Specialty Start Date End Date Mike Wagner MD [address] [place] [address] PCP - General Family Medicine 02/09/24 Hvac Engineering Technician Relationship Specialty Start Date End Date Mike Wagner MD [address] [place] [address] PCP - General Family Medicine 02/09/24 Hvac Engineering Technician Relationship Specialty Start Date End Date Mike Wagner MD [address] [place] [address] PCP - General Family Medicine 02/09/24 Hvac Engineering Technician Relationship Specialty Start Date End Date Mike Wagner MD [address] [place] [address] PCP - General Family Medicine 02/09/24 Hvac Engineering Technician Relationship Specialty Start Date End Date Mike Wagner MD [address] [place] [address] PCP - General Family Medicine 02/09/24 Hvac Engineering Technician Relationship Specialty Start Date End Date Mike Wagner MD [address] [place] [address] PCP - General Family Medicine 02/09/24 Hvac Engineering Technician Relationship Specialty Start Date End Date Mike Wagner MD [address] [place] [address] PCP - General Family Medicine 02/09/24 Goals [...] BE BASED ON THE PRIMARY CLINICAL RECORDS. [facility]. provides no warranty or guarantee of the accuracy or completeness of information in this document.
== END 2025-03-08 16:15 | disposition home or self-care (01) ==
LOC: FBC 03-09 11:04 → FBCO 03-09 11:04
PROVIDERS: PCP Family Medicine; Visit Provider Obstetrics & Gynecology
DX: O26.893 Other specified pregnancy related conditions, third trimester (principal); Z3A.35 35 weeks gestation of pregnancy
CPT/HCPCS: 36415; 76818; 87081

== ENCOUNTER 2025-03-08 20:10 | Outpatient (REF) | payer BC, SELFPAY ==
--- OUTSIDE RECORDS SUMMARY | 2025-03-08 20:18 | XMS_ITS | CCD ---
Author Organization [facility] Care Team Providers Care Technical Business Systems Analyst Name Role Phone Price Girard Unavailable Unavailable Unavailable Essence Blevins Unavailable Unavailable MD Amanda Rosario Attending Provider MD Sarah Leigh Referring Provider MD Mike Wagner Primary Care Provider [phone] MD Amanda Rosario Attending Provider [phone] MD Sarah Leigh Referring Provider MD Mike Wagner Primary Care [...] Admitting Unavailable MD Amanda Rosario Attending Provider [phone] MD Sarah Leigh Referring Provider MD Mike Wagner Primary Care Provider Mike Wagner MD Primary Care Provider Aneesh NOE, Flores Unavailable Amanda Rosario Attending Unavailable Amanda Rosario Admitting Unavailable Sarah Leigh Referring Unavailable Mike Wagner Primary Care Unavailable Abelardo ACCIDENT EXAMINER, Melissa Unavailable KT, DELVIS Attending Unavailable KT, DELVIS Attending Unavailable KT, DELVIS Attending Unavailable AMANDA GONZALEZ Attending Unavailable KT, DELVIS Attending Unavailable KT, [...] Take 1 tablet by mouth Daily Active Jen-Ptwe-Ut-Meridian 3-Fat Com #1 (Pre-Jeanette Multivitamins/Min erals) 27-1-300 mg Capsule (4 sources) Start: 01-21-2023 Nar-Mnqo-Vm-Meridian 3-Fat Com #1 (Pre-Jeanette Multivitamins/Mine rals) 27-1-300 mg Capsule Active CAP PO January 21, 2023 1:00am Start: 01-21-2023 Avn-Gsqd-Yk-Om ega 3-Fat Com #1 (Pre-Jeanette Multivitamins/Minerals) 27-1-300 [...] [33 weeks gestation of ] 02-21-2025 Episodic Residual codes; unclassified (2 sources) Gestation period, 35 weeks; Translations: [35 weeks gestation of ] 03-08-2025 Episodic Residual codes; unclassified (2 sources) ultrasound scan abnormal; Translations: [Pyelectasis of fetus on ultrasound] 03-08-2025 Episodic Skin and subcutaneous tissue infections (4 [...] Range Facility Urinalysis macro (dipstick) panel (U)on 03-08-2025 Bilirubin, UA Negative Negative - 4(70) +++ mg/dL [facility] Blood, UA Negative Negative - 50 Naveed/mcL [facility] Clarity, UA Clear [facility] Color, UA Yellow [facility] Glucose, UA Negative Negative - 1999(110) ++++ mg/dL [facility] Interpretation and review of laboratory results Abnormal [facility] Ketones, UA Negative Negative - 160(16) ++++ mg/dL [facility] Leukocytes, UA Positive Negative - 500+++ José Luis/mcL [facility] Nitrite, UA Negative Negative - Positive [facility] pH, UA 6 5 - 9 [facility] Protein, UA Negative Negative - 1999(20) ++++ mg/dL [facility] Spec Grav, UA 1.025 1 - 1.03 [facility] Urobilinogen, UA 1.0 0.2 - 12 mg/dL Counts include 234 beds at the [facility] US for multiple gestation pr egnancy limitedon 03-06-2025 [place] [address] Ultrasound Report Signed Patient: AILYN BARON MR#: [id number] : 1995 Acct:[id number] Age/Sex: 29 / F ADM Date: 03/04/25 Loc: US Attending Dr: Delvis Meraz D.O. Ordering Physician: Delvis Meraz D.O. Date of Service: 03/04/25 Procedure(s): US OB follow up Accession Number(s): [id number] cc: Delvis Meraz D.O.; Mike Wagner M.D. The [place] [id number] Patient Name: AILYN BARON MRN: [id number]:[id number] date: 1995 Sex: F Assigned Patient Location: US Current Patient Location: Accession/Order Number: [id number] Exam Date: 03/06/2025 08:50 Report Date: 03/06/2025 08:54 At the request of: DELVIS MERAZ DO Procedure: US OB follow up ULTRASOUND OB FOLLOW-UP COMPARISON: 12/15/2024 and 12/27/2024 CLINICAL DATA: Follow-up abnormalities on anatomy survey There is a single live intrauterine gestation in cephalic presentation. There is cardiac activity with heart rate of 138 bpm. Amniotic fluid volume is subjectively normal. Both kidneys are visualized and there is still bilateral pelviectasis. The stomach is visualized and shows no obvious abnormality. The intraluminal echoes seen previously are not identified today. US/US OB follow up IMPRESSION: CONTINUED BILATERAL PELVIECTASIS. NO RESIDUAL INTRALUMINAL ABNORMALITY IDENTIFIED WITHIN THE STOMACH. Impression dictated by: Lorri Barros M.D.03/06/2025 8:54 AM Dictation Location: [place] [address] Electronically authenticated by: [id number] Y Date: 03/06/2025 08:54 Dictated By: Lorri Barros M.D. Signed By: 03/06/25 0857 DD/ 0854 TD/TT: Lcpc: [facility] Radiology, Radiologi MD maria elena - 03/06/2025 [place] [address] Ultrasound Report Signed Patient: AILYN BARON MR#: [id number] : 1995 Acct:[id number] Age/Sex: 29 / F ADM Date: 03/04/25 Loc: US Attending Dr: Delvis Meraz D.O. Ordering Physician: Delvis Meraz D.O. Date of Service: 03/04/25 Procedure(s): US OB follow up Accession Number(s): [id number] cc: Delvis Meraz D.O.; Mike Wagner M.D. The [address] [address] Patient Name: AILYN BARON MRN: [facility]:[id number] date: 1995 Sex: F Assigned Patient Location: US Current Patient Location: Accession/Order Number: [id number] Exam Date: 03/06/2025 08:50 Report Date: 03/06/2025 08:54 At the request of: DELVIS MERAZ DO Procedure: US OB follow up ULTRASOUND OB FOLLOW-UP COMPARISON: 12/15/2024 and 12/27/2024 CLINICAL DATA: Follow-up abnormalities on anatomy survey There is a single live intrauterine gestation in cephalic presentation. There is cardiac activity with heart rate of 138 bpm. Amniotic fluid volume is subjectively normal. Both kidneys are visualized and there is still bilateral pelviectasis. The stomach is visualized and shows no obvious abnormality. The intraluminal echoes seen previously are not identified today. US/US OB follow up IMPRESSION: CONTINUED BILATERAL PELVIECTASIS. NO RESIDUAL INTRALUMINAL ABNORMALITY IDENTIFIED WITHIN THE STOMACH. Impression dictated by: Lorri Barros M.D.03/06/2025 8:54 AM Dictation Location: [place] [address] Electronically authenticated by: [id number] Y Date: 03/06/2025 08:54 Dictated By: Lorri Barros M.D. Signed By: 03/06/25 0857 DD/ 0854 TD/TT: Lcpc: [facility] Radiology Study observation (narrative) [facility] US for multiple gestation pr egnancy limitedOrdered By: Radiologist Radiology on 03-06-2025 [facility] Work Phone: Urinalysis macro (dipstick) panel (U)on 02-21-2025 Bilirubin, UA Negative Negative - 4(70) +++ mg/dL [facility] Blood, UA Negative Negative - 50 Naveed/mcL [facility] Clarity, UA Clear [facility] Color, UA Yellow [facility] Glucose, UA Negative Negative - 1999(110) ++++ mg/dL [facility] Interpretation and review of laboratory results Normal [facility] Ketones, UA Negative Negative - 160(16) ++++ mg/dL [facility] Leukocytes, UA Negative Negative - 500+++ José Luis/mcL [facility] Nitrite, UA Negative Negative - Positive [facility] pH, UA 7 5 - 9 [facility] Protein, UA Negative Negative - 2000(20) ++++ mg/dL [facility] Spec Grav, UA 1.02 1 - 1.03 [facility] Urobilinogen, UA 0.2 0.2 - 12 mg/dL Counts include 234 beds at the [facility] Urinalysis macro (dipstick) panel (U)on 02-09-2025 Bilirubin, UA Negative Negative - 4(70) +++ mg/dL [facility] Blood, UA Negative Negative - 50 Naveed/mcL [facility] Clarity, UA Clear [facility] Color, UA Yellow [facility] Glucose, UA Negative Negative - 1999(110) ++++ mg/dL [facility] Interpretation and review of laboratory results Abnormal [facility] Ketones, UA Negative Negative - 160(16) ++++ mg/dL [facility] Leukocytes, UA Positive Negative - 500+++ José Luis/mcL [facility] Comment on above: small Nitrite, UA Negative Negative - Positive [facility] pH, UA 7.5 5 - 9 [facility] Protein, UA Negative Negative - 1999(20) ++++ mg/dL [facility] Spec Grav, UA 1.015 1 - 1.03 [facility] Urobilinogen, UA 0.2 0.2 - 12 mg/dL Counts include 234 beds at the [facility] Urinalysis macro (dipstick) panel (U)on 01-25-2025 Bilirubin, UA Negative Negative - 4(70) +++ mg/dL [facility] Blood, UA Negative Negative - 50 Naveed/mcL [facility] Clarity, UA Clear [facility] Color, UA Yellow [facility] Glucose, UA Negative Negative - 1999(110) ++++ mg/dL [facility] Interpretation and review of laboratory results Normal [facility] Ketones, UA Negative Negative - 160(16) ++++ mg/dL [facility] Leukocytes, UA Negative Negative - 500+++ José Luis/mcL [facility] Nitrite, UA Negative Negative - Positive [facility] pH, UA 7 5 - 9 [facility] Protein, UA Negative Negative - 1999(20) ++++ mg/dL [facility] Spec Grav, UA 1.015 1 - 1.03 [facility] Urobilinogen, UA 0.2 0.2 - 12 mg/dL Counts include 234 beds at the [facility] Urinalysis macro (dipstick) panel (U)on 01-11-2025 Bilirubin, UA Negative Negative - 4(70) +++ mg/dL [facility] Blood, UA Negative Negative - 50 Naveed/mcL [facility] Clarity, UA Clear [facility] Color, UA Yellow [facility] Glucose, UA Negative Negative - 1999(110) ++++ mg/dL [facility] Interpretation and review of laboratory results Abnormal [facility] Ketones, UA Positive Negative - 160(16) ++++ mg/dL [facility] Comment on above: trace Leukocytes, UA Negative Negative - 500+++ José Luis/mcL [facility] Nitrite, UA Negative Negative - Positive [facility] pH, UA 7 5 - 9 [facility] Protein, UA Negative Negative - 1999(20) ++++ mg/dL [facility] Spec Grav, UA 1.02 1 - 1.03 [facility] Urobilinogen, UA 0.2 0.2 - 12 mg/dL Counts include 234 beds at the [facility] GLUCOSE 1 HOURon 01-09-2025 Glucose [Mass/Vol] 97 mg/dL NINF - 13 0 mg/dL [facility] Urinalysis macro (dipstick) panel (U)on 12-28-2024 Bilirubin, UA Negative Negative - 4(70) +++ mg/dL [facility] Blood, UA Positive Negative - 50 Naveed/mcL [facility] Clarity, UA Clear [facility] Color, UA Yellow [facility] Glucose, UA Negative Negative - 1999(110) ++++ mg/dL [facility] Interpretation and review of laboratory results Abnormal [facility] Ketones, UA Negative Negative - 160(16) ++++ mg/dL [facility] Leukocytes, UA Negative Negative - 500+++ José Luis/mcL [facility] Nitrite, UA Negative Negative - Positive [facility] pH, UA 6 5 - 9 [facility] Protein, UA Positive Negative - 1999(20) ++++ mg/dL [facility] Spec Grav, UA 1.03 1 - 1.03 [facility] Urobilinogen, UA 1.0 0.2 - 12 mg/dL Counts include 234 beds at the [facility] US OB CERVICAL LENGTHon The [facility] [address] [place] [address] Ultrasound Report Signed Patient: AILYN BARON MR#: [id number] : 1995 Acct:[id number] Age/Sex: 29 / F ADM Date: 12/26/24 Loc: US Attending Dr: Delvis Meraz D.O. Ordering Physician: Delvis Meraz D.O. Date of Service: 12/26/24 Procedure(s): US OB cervical length Accession Number(s): [id number] cc: Delvis Meraz D.O.; Mike Wagner M.D. The [place] [address] Patient Name: AILYN BARON MRN: [facility]:[id number] date: 1995 Sex: F Assigned Patient Location: US Current Patient Location: ED.MAIN Accession/Order Number: [id number] Exam Date: 12/26/2024 15:30 Report Date: 12/27/2024 [...] renal pelvis bilaterally. Electronically authenticated by: MORE FARLEY Date: 12/27/2024 09:21 Dictated By: More Farley M.D. Signed By: 12/27/24922 DD/ 0 TD/TT: Lcpc: [facility] Radiology, Radiologi MD maria elena - 12/27/2024 [place] [address] Ultrasound Report Signed Patient: AILYN BARON MR#: [id number] : 1995 Acct:[id number] Age/Sex: 29 / F ADM Date: 12/26/24 Loc: US Attending Dr: Delvis Meraz D.O. Ordering Physician: Delvis Meraz D.O. Date of Service: 12/26/24 Procedure(s): US OB cervical length Accession Number(s): [id number] cc: Delvis Meraz D.O.; Mike Wagner M.D. [place] [address] Patient Name: AILYN BARON MRN: [id number] date: 1995 Sex: F Assigned Patient Location: US Current Patient Location: ED.MAIN Accession/Order Number: [id number] Exam Date: 12/26/2024 15:30 Report Date: 12/27/2024 [...] renal pelvis bilaterally. Electronically authenticated by: MORE FARLEY Date: 12/27/2024 09:21 Dictated By: More Farley M.D. Signed By: 12/27/24922 DD/ 0 TD/TT: Lcpc: [facility] Radiology Study observation (narrative) [facility] US OB CERVICAL LENGTHOrdered By: Radiologist Radiology on 12-27-2024 [facility] Work Phone: Urinalysis macro (dipstick) panel (U)on 11-28-2024 Bilirubin, UA Negative Negative - 4(70) +++ mg/dL [facility] Blood, UA Positive Negative - 50 Naveed/mcL [facility] Comment on above: trace Clarity, UA Clear [facility] Color, UA Yellow [facility] Glucose, UA Negative Negative - 1999(110) ++++ mg/dL [facility] Interpretation and review of laboratory results Abnormal [facility] Ketones, UA Negative Negative - 160(16) ++++ mg/dL [facility] Leukocytes, UA Negative Negative - 500+++ José Luis/mcL [facility] Nitrite, UA Negative Negative - Positive [facility] pH, UA 6.5 5 - 9 [facility] Protein, UA Negative Negative - 1999(20) ++++ mg/dL [facility] Spec Grav, UA 1.025 1 - 1.03 [facility] Urobilinogen, UA 0.2 0.2 - 12 mg/dL Counts include 234 beds at the [facility] No Panel Informationon 10-26 STAPHYLOCOCCUS EPIDERMIDIS, HAEMOLYTICUS, LUGDUNENSIS, SAPROPHYTICUS (URINA 0 [facility] STAPHYLOCOCCUS EPIDERMIDIS, HAEMOLYTICUS, LUGDUNENSIS, SAPROPHYTICUS (URINA Not detected [facility] URINARY TRACT INFECTION (HTR X)on 10-26-2024 ACINETOBACTER BAUMANII 0 NO [facility] ACINETOBACTER BAUMANII Not detected [facility] STEVEN ALBICANS, PARAPSILOSIS, TROPICALIS 0 [facility] STEVEN ALBICANS, PARAPSILOSIS, TROPICALIS Not detected [facility] STEVEN GLABRATA 0 [facility] STEVEN GLABRATA Not detected [facility] STEVEN KRUSEI 0 [facility] STEVEN KRUSEI Not detected [facility] CITROBACTER FREUNDII 0 [facility] CITROBACTER FREUNDII Not detected NO [facility] ENTEROBACTER AEROGENES, CLOACAE 0 [facility] ENTEROBACTER AEROGENES, CLOACAE Not detected [facility] ENTEROCOCCUS FAECALIS, FAECIUM 0 [facility] ENTEROCOCCUS FAECALIS, FAECIUM Not detected [facility] ESCHERICHIA COLI 0 [facility] ESCHERICHIA COLI Not detected [facility] KLEBSIELLA PNEUMONIAE, OXYTOCA 0 [facility] KLEBSIELLA PNEUMONIAE, OXYTOCA Not detected [facility] MORGANELLA MORGANII 0 [facility] MORGANELLA MORGANII Not detected [facility] PROTEUS MIRABILIS, VULGARIS 0 [facility] PROTEUS MIRABILIS, VULGARIS Not detected [facility] PSEUDOMONAS AERUGINOSA 0 NO [facility] PSEUDOMONAS AERUGINOSA Not detected [facility] SERRATIA MARCESCENS 0 [facility] SERRATIA MARCESCENS Not detected [facility] STAPHYLOCOCCUS AUREUS 0 [facility] STAPHYLOCOCCUS AUREUS Not detected [facility] STREPTOCOCCUS AGALACTIAE (GROUP B STREP) 0 [facility] STREPTOCOCCUS AGALACTIAE (GROUP B STREP) Not detected [facility] STREPTOCOCCUS PYOGENES (GROUP A STREP) 0 [facility] STREPTOCOCCUS PYOGENES (GROUP A STREP) Not detected [facility] Urinalysis macro (dipstick) panel (U)on 10-24-2024 Bilirubin, UA Negative Negative - 4(70) +++ mg/dL [facility] Blood, UA Positive Negative - 50 Naveed/mcL [facility] Clarity, UA Clear [facility] Color, UA Yellow [facility] Glucose, UA Negative Negative - 1999(110) ++++ mg/dL [facility] Interpretation and review of laboratory results Normal [facility] Ketones, UA Negative Negative - 160(16) ++++ mg/dL [facility] Leukocytes, UA Negative Negative - 500+++ José Luis/mcL [facility] Nitrite, UA Negative Negative - Positive [facility] pH, UA 5.5 5 - 9 [facility] Protein, UA Negative Negative - 1999(20) ++++ mg/dL [facility] Spec Grav, UA 1.02 1 - 1.03 [facility] Urobilinogen, UA 1.0 0.2 - 12 mg/dL Counts include 234 beds at the [facility] Urinalysis macro (dipstick) panel (U)on 09-26-2024 Bilirubin, UA Negative Negative - 4(70) +++ mg/dL [facility] Blood, UA Negative Negative - 50 Naveed/mcL [facility] Clarity, UA Clear [facility] Color, UA Yellow [facility] Glucose, UA Negative Negative - 1999(110) ++++ mg/dL [facility] Interpretation and review of laboratory results Normal [facility] Ketones, UA Negative Negative - 160(16) ++++ mg/dL [facility] Leukocytes, UA Negative Negative - 500+++ José Luis/mcL [facility] Nitrite, UA Negative Negative - Positive [facility] pH, UA 5.5 5 - 9 [facility] Protein, UA Negative Negative - 1999(20) ++++ mg/dL [facility] Spec Grav, UA 1.02 1 - 1.03 [facility] Urobilinogen, UA 0.2 0.2 - 12 mg/dL Counts include 234 beds at the [facility] MLR HEMOGLOBIN A1Con 024 Glucose [Mass/Vol] 91 mg/dL [facility] HbA1c (Bld) [Mass fraction] 4.8 % 4.5 - 6.2 % [facility] Comment on above: ADA RECOMMENDED LIMI T 4.0 - 6.0 ADA THERAPEUTIC TARGET < 7.0 ACTION SUGGESTED > 7.0 [facility] ( test) Ql (U)o n 08-26-2024 Interpretation and review of laboratory results Abnormal [facility] Preg Test, Ur Positive Counts include 234 beds at the [facility] Urinalysis macro (dipstick) panel (U)on 08-26-2024 Bilirubin, UA Negative Negative - 4(70) +++ mg/dL [facility] Blood, UA Negative Negative - 50 Naveed/mcL [facility] Clarity, UA Clear [facility] Color, UA Yellow [facility] Glucose, UA Negative Negative - 1999(110) ++++ mg/dL [facility] Interpretation and review of laboratory results Normal [facility] Ketones, UA Negative Negative - 160(16) ++++ mg/dL [facility] Leukocytes, UA Negative Negative - 500+++ José Luis/mcL [facility] Nitrite, UA Negative Negative - Positive [facility] pH, UA 7.0 5 - 9 [facility] Protein, UA Negative Negative - 1999(20) ++++ mg/dL [facility] Spec Grav, UA 1.025 1 - 1.03 [facility] Urobilinogen, UA 0.2 0.2 - 12 mg/dL Counts include 234 beds at the [facility] TBH PREG QUANT HCGon 08-04- 024 HCG QUANTITATIVE 1850 mIU/mL [facility] Comment on above: 5-50 0.2-1 WEEK 50-500 1-2 WEEKS 100-5,000 2-3 WEEKS 500-10,000 3-4 WEEKS 1,000-50,000 4-5 WEEKS 10,000-100,000 5-6 WEEKS 15,000-200,000 6-8 WEEKS 10,000-100,000 2-[facility] HCGon 024 HCG QUANTITATIVE 824 mIU/mL [facility] Comment on above: 5-50 0.2-1 WEEK 50-500 1-2 WEEKS 100-5,000 2-3 WEEKS 500-10,000 3-4 WEEKS 1,000-50,000 4-5 WEEKS 10,000-100,000 5-6 WEEKS 15,000-200,000 6-8 WEEKS 10,000-100,000 2-3 MONTHS [facility] Alanine aminotransferase [En zymatic activity/volume] in Serum or PlasmaOrdered By: Amanda Rosario on 05-20-2023 ALT [Catalytic activity/Vol] 9 U/L 7-52 [facility] Albumin [Mass/volume] in Ser um or Plasma by Bromocresol green (BCG) dye binding methoOrdered By: Amanda Rosario on 05-20-2023 Albumin BCG dye [Mass/Vol] 3.8 g/dL 3.5-5.7 [facility] Alkaline phosphatase [Enzyma tic activity/volume] in Serum or PlasmaOrdered By: Amanda Rosario on 05-20-2023 ALP [Catalytic activity/Vol] 52 U/L 34-104 [facility] Aspartate aminotransferase [ Enzymatic activity/volume] in Serum or PlasmaOrdered By: Amanda Rosario on 05-20-2023 AST [Catalytic activity/Vol] 14 U/L 13-39 [facility] Basophils Auto (Bld) [#/Vol] Ordered By: Amanda Rosario on 05-20-2023 Basophils (Bld) [#/Vol] 0.0 10*3/uL 0.0-0.2 [facility] Basophils/100 WBC Auto (Bld) Ordered By: Amanda Rosario on 05-20-2023 Basophils/100 WBC (Bld) 0.4 % . F [facility] Bilirubin.total [Mass/volume ] in Serum or PlasmaOrdered By: Amanda Rosario on 05-20-2023 Bilirubin [Mass/Vol] 0.5 mg/dL 0.3-1.0 [facility] Calcium [Mass/volume] in Ser um or PlasmaOrdered By: Amanda Rosario on 05-20-2023 Calcium [Mass/Vol] 8.5 mg/dL 8.6-10.3 [facility] Carbon dioxide, total [Moles /volume] in Serum or PlasmaOrdered By: Amanda Rosario on 05-20-2023 CO2 [Moles/Vol] 26.1 mmol/L 21.0-31.0 [facility] Chloride [Moles/volume] in S [place] or PlasmaOrdered By: Amanda Rosario on 05-20-2023 Chloride [Moles/Vol] 104 mmol/L 98-107 [facility] Creatinine [Mass/volume] in Serum or PlasmaOrdered By: Amanda Rosario on 05-20-2023 Creatinine [Mass/Vol] 0.56 mg/dL 0.60-1.20 [facility] Eosinophils Auto (Bld) [#/Vo l]Ordered By: Amanda Rosario on 05-20-2023 Eosinophils (Bld) [#/Vol] 0.1 10*3/uL 0.0-0.45 [facility] Eosinophils/100 WBC Auto (Bl d)Ordered By: Amanda Rosario on 05-20-2023 Eosinophils/100 WBC (Bld) 0.6 % . [facility] Erythrocyte distribution wid th Auto (RBC) [Ratio]Ordered By: Amanda Rosario on 05-20-2023 Erythrocyte distribution width (RBC) [Ratio] 13.1 % 11.9-15.3 [facility] Globulin Calc (S) [Mass/Vol] Ordered By: Amanda Rosario on 05-20-2023 Globulin (S) [Mass/Vol] 2.3 g/dL F [facility] Glucose [Mass/volume] in Ser um or PlasmaOrdered By: Amanda Rosario on 05-20-2023 Glucose [Mass/Vol] 72 mg/dL 70-100 [facility] Comment on above: ADA recommended refe rence rangeRandom Glucose Reference Range is dependent on time and content of last meal. Glucose of more than 200 mg/dL in a nonstressed, ambulatory subject supports the diagnosis of Diabetes Mellitus. Hematocrit Auto (Bld) [Volum e fraction]Ordered By: Amanda Rosario on 05-20-2023 Hematocrit (Bld) [Volume fraction] 34.7 % 34.0-46.4 [facility] Hemoglobin [Mass/volume] in BloodOrdered By: Amanda Rosario on 05-20-2023 Hemoglobin (Bld) [Mass/Vol] 12.0 g/dL 11.8-15.4 [facility] Leukocytes [#/volume] correc yanira for nucleated erythrocytes in Blood by Automated counOrdered By: Amanda Rosario on 05-20-2023 WBC corrected for nucl RBC Auto (Bld) [#/Vol] 10.3 10*3/uL 3.8-11.6 [facility] Lymphocytes Auto (Bld) [#/Vo l]Ordered By: Amanda Rosario on 05-20-2023 Lymphocytes (Bld) [#/Vol] 1.3 10*3/uL 1.00-4.8 [facility] Lymphocytes/100 WBC Auto (Bl d)Ordered By: Amanda Rosario on 05-20-2023 Lymphocytes/100 WBC (Bld) 12.8 % . [facility] MCH Auto (RBC) [Entitic mass ]Ordered By: Amanda Rosario on 05-20-2023 MCH (RBC) [Entitic mass] 31.5 pg 24.7-34.3 [facility] MCHC Auto (RBC) [Mass/Vol]Or dered By: Amanda Rosario on 05-20-2023 MCHC (RBC) [Mass/Vol] 34.6 g/dL 32.0-35.0 [facility] MCV Auto (RBC) [Entitic vol] Ordered By: Amanda Rosario on 05-20-2023 MCV (RBC) [Entitic vol] 91.1 fL 80-100 [facility] Monocytes Auto (Bld) [#/Vol] Ordered By: Amanda Rosario on 05-20-2023 Monocytes (Bld) [#/Vol] 0.7 10*3/uL 0.0-0.8 [facility] Monocytes/100 WBC Auto (Bld) Ordered By: Amanda Rosario on 05-20-2023 Monocytes/100 WBC (Bld) 6.4 % . [facility] Neutrophils Auto (Bld) [#/Vo l]Ordered By: Amanda Rosario on 05-20-2023 Neutrophils (Bld) [#/Vol] 8.2 10*3/uL 1.8-7.7 [facility] Neutrophils/100 WBC Auto (Bl d)Ordered By: Amanda Rosario on 05-20-2023 Neutrophils/100 WBC (Bld) 79.8 % . [facility] No Panel InformationOrdered By: Amanda Rosario on 05-20-2023 Adrenocorticotropic Hormone 10.8 pg/mL 7.2-63.3 [facility] Comment on above: ACTH reference inter cruz for samples collected between 7 and10 AM.Performed at: [facility] [id number] Director: Sai Smalls PhD, Phone: [phone] Estimated GFR (CKD-EPI) > 60.0 mL/Min [facility] Creatinine Clearance (Chem 154.92 [facility] Nucleated erythrocytes [Pres ence] in Blood by Automated countOrdered By: Amanda Rosario on 05-20-2023 Nucleated RBC Auto Ql (Bld) 0.2 /100{WBC} 0-0.5 [facility] Platelet mean volume Auto (B ld) [Entitic vol]Ordered By: Amanda Rosario on 05-20-2023 Platelet mean volume (Bld) [Entitic vol] 7.4 fL 6.3-10.7 [facility] Platelets Auto (Bld) [#/Vol] Ordered By: Amanda Rosario on 05-20-2023 Platelets (Bld) [#/Vol] 256 10*3/uL 150-450 [facility] Potassium [Moles/volume] in Serum or PlasmaOrdered By: Amanda Rosario on 05-20-2023 Potassium [Moles/Vol] 4.2 mmol/L 3.5-5.1 [facility] Protein [Mass/volume] in Ser um or PlasmaOrdered By: Amanda Rosario on 05-20-2023 Protein [Mass/Vol] 6.1 g/dL 6.4-8.9 [facility] RBC Auto (Bld) [#/Vol]Ordere d By: Amanda Rosario on 05-20-2023 RBC (Bld) [#/Vol] 3.81 10*6/uL 3.60-5.00 [facility] Serum or plasma albumin/glob ulin mass ratioOrdered By: Amanda Rosario on 05-20-2023 Albumin/Globulin [Mass ratio] 1.7 {ratio} [facility] Serum or plasma anion gap de terminationOrdered By: Amanda Rosario on 05-20-2023 Anion gap [Moles/Vol] 10.1 mmol/L 6.0-15.0 [facility] Sodium [Moles/volume] in Ser um or PlasmaOrdered By: Amanda Rosario on 05-20-2023 Sodium [Moles/Vol] 136 mmol/L 136-145 [facility] Thyrotropin [Units/volume] i n Serum or PlasmaOrdered By: Amanda Rosario on 05-20-2023 TSH Qn 1.31 m[IU]/L 0.45-5.33 [facility] Thyroxine (T4) free [Mass/vo lume] in Serum or PlasmaOrdered By: Amanda Rosario on 05-20-2023 Free T4 [Mass/Vol] 0.86 ng/dL 0.61-1.12 [facility] Triiodothyronine (T3) Free [ Mass/volume] in Serum or PlasmaOrdered By: Amanda Rosario on 05-20-2023 Free T3 [Mass/Vol] 2.91 pg/mL 2.50-3.90 [facility] Urea nitrogen [Mass/volume] in Serum or PlasmaOrdered By: Amanda Rosario on 05-20-2023 Urea nitrogen [Mass/Vol] 10 mg/dL 7-25 [facility] WBC Auto (Bld) [#/Vol]Ordere d By: Amanda Rosario on 05-20-2023 WBC (Bld) [#/Vol] 10.3 10*3/uL 3.8-11.6 [facility] HEP B SURFACE ANTIGEN SCREEN on 04-08-2023 HBsAg Screen Negative Normal Negative [facility] Comment on above: Performed By: #### T SH #### [facility] [address] [place] [id number] Beth Pineda HEPATITIS C VIRUS AB W/ REFL EX QUANTon 04-08-2023 HCV AB Non-Reactive Normal Non Reactive [facility] Comment on above: Performed By: #### H CVPCRR #### [facility] [address] [place] [address] Dr. Beth Pineda HIV 1 AND 2 WITH REFLEXon HIV Screen 4th Generation wRfx Non-Reactive Normal Non Reactive [facility] Comment on above: Result Comment: HIV Negative HIV-1/HIV-2 antibodies and HIV-1 p24 antigen were NOT detected. There is no laboratory evidence of HIV infection. Performed By: #### H IV12 #### [facility] [address] [place] [address] Dr. Beth Pineda RPR QUANTon 04-08-2023 Rapid Plasma Reagin, Quant Non-Reactive Normal NonRea<1:1 [facility] Comment on above: Result Comment: Plea se Note: This test does not meet current guidelines for screening and diagnosis of syphilis. This test is intended for following treatment response in patients being treated for syphilis infection. To screen for syphilis infection, a reflex cascade that includes both RPR and a treponema-specific assay should be utilized, such as Treponema pallidum (Syphilis) Screening Ponce (609339) or Rapid Plasma Reagin (RPR) Test With Reflex to Quantitative RPR and Confirmatory Treponema pallidum Antibodies (118610). Performed By: #### R PRQ #### [facility] [address] [place] [address] Dr. Beth Pineda RUBELLA AB IGGon 04-08-2023 Rubella Antibodies, IgG 1.35 index Normal Immu ne >0.99 [facility] Comment on above: Result Comment: Non- immune <0.90 Equivocal 0.90 - 0.99 Immune >0.99 Performed By: #### R UBIGG #### [facility] [address] [place] [address] Dr. Beth Pineda BOX TEST SENT OUTon 04-07-20 SENT TO REF LAB 04/07/23 Normal [facility] Comment on above: Performed By: #### B OX #### [facility] [address] [place] [address] Dr. Beth Pineda CBC AUTO DIFFon 04-07-2023 BASO # 0.1 103/ul Normal 0.0-0.1 [facility] Comment on above: Performed By: #### C BC #### [facility] [address] [place] [address] Dr. Beth Pineda Basophils/100 WBC (Bld) 0.7 % Normal 0.2-2.0 [facility] Comment on above: Performed By: #### C BC #### [facility] [address] [place] [address] Dr. Beth Pineda EO # 0.1 103/ul Normal 0.0-0.7 [facility] Comment on above: Performed By: #### C BC #### [facility] [address] [place] [address] Dr. Beth Pineda Eosinophils/100 WBC (Bld) 1.1 % Normal 0.9-7.0 [facility] Comment on above: Performed By: #### C BC #### [facility] [address] [place] [address] Dr. Beth Pineda Erythrocyte distribution width (RBC) [Ratio] 12.5 % Normal 11.0-15.0 [facility] Comment on above: Performed By: #### C BC #### [facility] [address] [place] [address] Dr. Beth Pineda Hematocrit (Bld) [Volume fraction] 37.8 % Normal 36.0-48.0 [facility] Comment on above: Performed By: #### C BC #### [facility] [address] [place] [address] Dr. Beth Pineda Hemoglobin (Bld) [Mass/Vol] 13.1 g/dL Normal 12.0-16.0 [facility] Comment on above: Performed By: #### C BC #### [facility] [address] [place] [address] Dr. Beth Pineda IG # 0.02 10e3/ul Normal 0.00-0.03 [facility] Comment on above: Performed By: #### C BC #### [facility] [address] [place] [address] Dr. Beth Pineda IG % 0.3 % Normal 0.0-0.5 [facility] Comment on above: Performed By: #### C BC #### [facility] [address] [address] [address] Beth Pineda LYMPH # 1.5 103/ul Normal 1.2-3.8 [facility] Comment on above: Performed By: #### C BC #### [facility] [address] [address] [address] Beth Pineda Lymphocytes/100 WBC (Bld) 19.9 % Critically low 20.5-60.0 [facility] Comment on above: Performed By: #### C BC #### [facility] [address] [place] [address] Dr. Beth Pineda MANUAL DIFF REQ NO Normal [facility] Comment on above: Performed By: #### C BC #### [facility] [address] [place] [address] Dr. Beth Pineda MCH (RBC) [Entitic mass] 31.3 pg Normal 26.7-34.0 [facility] Comment on above: Performed By: #### C BC #### [facility] [address] [place] [address] Dr. Beth Pineda MCHC (RBC) [Mass/Vol] 34.7 g/dL Normal 29.9-35.2 [facility] Comment on above: Performed By: #### C BC #### [facility] [address] [place] [address] Dr. Beth Pineda MCV (RBC) [Entitic vol] 90.2 fL Normal 81.0-99.0 [facility] Comment on above: Performed By: #### C BC #### [facility] [address] [place] [address] Dr. Beth Pineda MONO # 0.5 103/ul Normal 0.3-0.8 [facility] Comment on above: Performed By: #### C BC #### [facility] [address] [place] [address] Dr. Beth Pineda Monocytes/100 WBC (Bld) 6.1 % Normal 1.7-12.0 [facility] Comment on above: Performed By: #### C BC #### [facility] [address] [place] [address] Dr. Beth Pineda NEUT # 5.4 103/ul Normal 1.4-6.5 [facility] Comment on above: Performed By: #### C BC #### [facility] [address] [place] [address] Dr. Beth Pineda Neutrophils/100 WBC (Bld) 71.9 % Normal 43.0-75.0 [facility] Comment on above: Performed By: #### C BC #### [facility] [address] [place] [address] Dr. Beth Pineda Platelet mean volume (Bld) [Entitic vol] 8.9 fL Critically low 9.5-13.5 [facility] Comment on above: Performed By: #### C BC #### [facility] [address] [place] [address] Dr. Beth Pineda PLT 272 103/ul Normal 150-450 [facility] Comment on above: Performed By: #### C BC #### [facility] [address] [place] [address] Dr. Beth Pineda RBC 4.19 106/ul Critically low 4.20-5.40 [facility] Comment on above: Performed By: #### C BC #### [facility] [address] [place] [address] Dr. Beth Pineda WBC 7.5 103/ul Normal 4.0-11.0 [facility] Comment on above: Performed By: #### C BC #### [facility] [address] [place] [address] Dr. Beth Pineda CULTURE URINEon 04-07-2023 CULTURE URINE Culture Observations : NO GROWTH. Normal [facility] Comment on above: Performed By: #### T SH #### [facility] [address] [place] [address] Dr. Beth Pineda GLYCOHEMOGLOBIN A1Con 2022 ADA RECOMMENDATION SEE BELOW Normal [facility] Comment on above: Result Comment: ADA RECOMMENDED LIMIT 4.0 - 6.0 ADA THERAPEUTIC TARGET < 7.0 ACTION SUGGESTED > 7.0 Performed By: #### A 1C #### [facility] [address] [address] [address] Beth Pineda Glucose [Mass/Vol] 82 mg/dL Normal [facility] Comment on above: Performed By: #### A 1C #### [facility] [address] [place], [place] [address] Dr. Beth Pineda HbA1c (Bld) [Mass fraction] 4.5 % Normal 4.5-6.2 [facility] Comment on above: Performed By: #### A 1C #### [facility] [address] [address] [address] Beth Pineda TSHon 04-07-2023 TSH 2.191 uIU/mL Normal 0.358-3.740 [facility] Comment on above: Performed By: #### T SH #### [facility] [address] [place] [address] Dr. Beth Pineda TYPE AND SCREENon 04-07-2023 TYPE AND SCREEN Negative Normal [facility] Comment on above: Performed By: #### T SH #### [facility] [address] [place] [address] Dr. Beth Pineda US PREG TVon 03-13-2023 [...] MORE FARLEY Date: 2023-03-13 09:37 Normal [facility] PREG QUANT HCGon 02-27-2023 HCG QUANT 39206 mIU/mL Normal [facility] Comment on above: Performed By: #### A 1C #### [facility] [address] [place] [address] Dr. Beth Pineda HCG RANGE SEE BELOW Normal [facility] Comment on above: Result Comment: 5-50 0.2-1 WEEK 50-500 1-2 WEEKS 100-5,000 2-3 WEEKS 500-10,000 3-4 WEEKS 1,000-50,000 4-5 WEEKS 10,000-100,000 5-6 WEEKS 15,000-200,000 6-8 WEEKS 10,000-100,000 2-3 MONTHS Performed By: #### A 1C #### [facility] [address] [place] [address] Dr. Beth Pineda PREG QUANT HCGon 02-11-2023 HCG QUANT 57 mIU/mL Normal [facility] Comment on above: Performed By: #### A 1C #### [facility] [address] [place] [address] Dr. Beth Pineda HCG RANGE SEE BELOW Normal [facility] Comment on above: Result Comment: 5-50 0.2-1 WEEK 50-500 1-2 WEEKS 100-5,000 2-3 WEEKS 500-10,000 3-4 WEEKS 1,000-50,000 4-5 WEEKS 10,000-100,000 5-6 WEEKS 15,000-200,000 6-8 WEEKS 10,000-100,000 2-3 MONTHS Performed By: #### A 1C #### [facility] [address] [place] [address] Dr. Beth Pineda PREG QUANT HCGon 02-09-2023 HCG QUANT 14 mIU/mL Normal [facility] Comment on above: Performed By: #### P REGQNT #### [facility] [address] [place] [address] Dr. Beth Pineda HCG RANGE SEE BELOW [facility] Comment on above: Result Comment: 5-50 0.2-1 WEEK 50-500 1-2 WEEKS 100-5,000 2-3 WEEKS 500-10,000 3-4 WEEKS 1,000-50,000 4-5 WEEKS 10,000-100,000 5-6 WEEKS 15,000-200,000 6-8 WEEKS 10,000-100,000 2-3 MONTHS Performed By: #### P REGQNT #### [facility] [address] [address] [address] Beth Pineda ANTI-MULLERIAN HORMONEon Anti-Mullerian Hormone (AMH) 12.5 ng/mL Normal [facility] Comment on above: Result Comment: For assays employing antibodies, the possibility exists for interference by heterophile antibodies in the samples.1 1.Tanja Rendon Interferences in Immunoassays - still a threat. Clin. Chem. 2000; 46: 9286-1410. This test was developed and its performance characteristics determined by [employer]. It has not been cleared or approved by the Food and Drug Administration. Reference Range: Females 20 - 25y: 1.23 - 11.51 Median 4.70 AMH concentrations of >= 1.06 ng/mL is correlated with a better response to ovarian stimulation, produced more retrievable oocytes and higher odds of live according to Gaye et al. Fertility and Sterility. 2010: 94:4610-7411. The current AMH test method correlates with [...] tumor. Performed By: #### T SH #### [facility] [address] [place] [address] Dr. Beth Pineda PAP ACOG PANEL 2: 21 to 29on 01-20-2023 . . Normal [facility] Comment on above: Performed By: #### T SH #### [facility] [address] [address] [address] Beth Pineda Age Gdln ACOG Testing - [facility] Comment on above: Performed By: #### T SH #### [facility] [address] [address] [address] Beth Pineda DIAGNOSIS: Comment [facility] Comment on above: Result Comment: NEGA TIVE FOR INTRAEPITHELIAL LESION OR MALIGNANCY. Performed By: #### T SH #### [facility] [address] [place] [address] Dr. Beth Pineda Methodology: Comment Normal [facility] Comment on above: Result Comment: This liquid based ThinPrep(R) pap test was screened with the use of an image guided system. Performed By: #### T SH #### [facility] [address] [place] [address] Dr. Beth Pineda Note: Comment Normal [facility] Comment on above: Result Comment: The Pap smear is a screening test designed to aid in the detection of premalignant and malignant conditions of the uterine cervix. It is not a diagnostic procedure and should not be used as the sole means of detecting cervical cancer. Both false-positive and false-negative reports do occur. . Performed By: #### T SH #### [facility] [address] [place] [address] Dr. Beth Pineda Performed by: Comment Normal [facility] Comment on above: Result Comment: Pato Gonzalez Overhead Line Worker (ASCP) Performed By: #### T SH #### [facility] [address] [place] [address] Dr. Beth Pineda Reflex Criteria: Comment [facility] Comment on above: Result Comment: The HPV DNA reflex criteria were not met with this specimen result therefore, no HPV testing was performed. . Performed By: #### T SH #### [facility] [address] [place] [address] Dr. Beth Pineda Specimen adequacy: Comment Normal [facility] Comment on above: Result Comment: Sati sfactory for evaluation. Endocervical and/or squamous metaplastic cells (endocervical component) are present. Performed By: #### T SH #### [facility] [address] [place] [address] Dr. Beth Pineda Albumin [Mass/volume] in Ser um or PlasmaOrdered By: Amanda Rosario on 01-09-2023 Albumin [Mass/Vol] 4.3 g/dL 3.2-5.5 [facility] Alkaline phosphatase [Enzyma tic activity/volume] in Serum or PlasmaOrdered By: Amanda Rosario on 01-09-2023 ALP [Catalytic activity/Vol] 54 U/L 32-92 [facility] Aspartate aminotransferase [ Enzymatic activity/volume] in Serum or PlasmaOrdered By: Amanda Rosario on 01-09-2023 AST [Catalytic activity/Vol] 21 U/L 10-42 [facility] Basophils Auto (Bld) [#/Vol] Ordered By: Amanda Rosario on 01-09-2023 Basophils (Bld) [#/Vol] 0.0 10*3/uL 0.0-0.2 [facility] Basophils/100 WBC Auto (Bld) Ordered By: Amanda Rosario on 01-09-2023 Basophils/100 WBC (Bld) 0.7 % . [facility] Bilirubin.total [Mass/volume ] in Serum or PlasmaOrdered By: Amanda Rosario on 01-09-2023 Bilirubin [Mass/Vol] 0.7 mg/dL 0.3-1.[address] [facility] [address] biopsyOrdered By: Amanda Nino se on 01-09-2023 Transferrin [Mass/Vol] 265 mg/dL 180-380 [facility] Calcium [Mass/volume] in Ser um or PlasmaOrdered By: Amanda Rosario on 01-09-2023 Calcium [Mass/Vol] 9.6 mg/dL 8.2-10.2 [facility] Carbon dioxide, total [Moles /volume] in Serum or PlasmaOrdered By: Amanda Rosario on 01-09-2023 CO2 [Moles/Vol] 27.2 mmol/L 22.0-30.0 [facility] Chloride [Moles/volume] in S [place] or PlasmaOrdered By: Amanda Rosario on 01-09-2023 Chloride [Moles/Vol] 104 mmol/L 95-114 [facility] Creatinine and Glomerular fi ltration rate.predicted panel (S/P/Bld)Ordered By: Amanda Rosario on 01-09-2023 Creatinine [Mass/Vol] 0.72 mg/dL 0.44-1.03 [facility] Eosinophils Auto (Bld) [#/Vo l]Ordered By: Amanda Rosario on 01-09-2023 Eosinophils (Bld) [#/Vol] 0.1 10*3/uL 0.0-0.45 [facility] Eosinophils/100 WBC Auto (Bl d)Ordered By: Amanda Rosario on 01-09-2023 Eosinophils/100 WBC (Bld) 1.3 % . [facility] Erythrocyte distribution wid th Auto (RBC) [Ratio]Ordered By: Amanda Rosario on 01-09-2023 Erythrocyte distribution width (RBC) [Ratio] 13.1 % 11.9-15.3 [facility] Estimated glomerular filtrat ion rate (GFR) non- AmericanOrdered By: Amanda Rosario on 01-09-2023 GFR/1.73 sq M.predicted among non-blacks MDRD (S/P/Bld) [Vol rate/Area] > 60 mL/Min [facility] Ferritin [Mass/volume] in Se rum or PlasmaOrdered By: Amanda Rosario on 01-09-2023 Ferritin [Mass/Vol] 13.4 ng/mL 11-306.8 [facility] Globulin Calc (S) [Mass/Vol] Ordered By: Amanda Rosario on 01-09-2023 Globulin (S) [Mass/Vol] 2.3 g/dL [facility] Glucose [Mass/volume] in Ser um or PlasmaOrdered By: Amanda Rosario on 01-09-2023 Glucose [Mass/Vol] 80 mg/dL 70-100 [facility] Comment on above: ADA recommended refe rence rangeRandom Glucose Reference Range is dependent on time and content of last meal. Glucose of more than 200 mg/dL in a nonstressed, ambulatory subject supports the diagnosis of Diabetes Mellitus. Hematocrit Auto (Bld) [Volum e fraction]Ordered By: Amanda Rosario on 01-09-2023 Hematocrit (Bld) [Volume fraction] 39.5 % 34.0-46.4 [facility] Hemoglobin [Mass/volume] in BloodOrdered By: Amanda Rosario on 01-09-2023 Hemoglobin (Bld) [Mass/Vol] 13.1 g/dL 11.8-15.4 [facility] Iron [Mass/volume] in Serum or PlasmaOrdered By: Amanda Rosario on 01-09-2023 Iron [Mass/Vol] 75 ug/dL 40-150 [facility] Iron binding capacity [Mass/ volume] in Serum or PlasmaOrdered By: Amanda Rosario on 01-09-2023 Iron binding capacity [Mass/Vol] 371 ug/dL 255-450 [facility] Iron saturation [Mass Fracti on] in Serum or PlasmaOrdered By: Amanda Rosario on 01-09-2023 Iron saturation [Mass fraction] 20.2 % 20-50 [facility] Lactate dehydrogenase measur ement (enzymatic activity/volume)Ordered By: Ale Alejandrezakia on 01-09-2023 LDH (Unsp spec) [Catalytic activity/Vol] 145 U/L 45-190 [facility] Leukocytes [#/volume] correc yanira for nucleated erythrocytes in Blood by Automated counOrdered By: Amanda Rosario on 01-09-2023 WBC corrected for nucl RBC Auto (Bld) [#/Vol] 4.8 10*3/uL 3.8-11.6 [facility] Lymphocytes Auto (Bld) [#/Vo l]Ordered By: Amanda Rosario on 01-09-2023 Lymphocytes (Bld) [#/Vol] 1.0 10*3/uL 1.00-4.8 [facility] Lymphocytes/100 WBC Auto (Bl d)Ordered By: Amanda Rosario on 01-09-2023 Lymphocytes/100 WBC (Bld) 20.2 % . [facility] MCH Auto (RBC) [Entitic mass ]Ordered By: Amanda Rosario on 01-09-2023 MCH (RBC) [Entitic mass] 30.0 pg 24.7-34.3 [facility] MCHC Auto (RBC) [Mass/Vol]Or dered By: Amanda Rosario on 01-09-2023 MCHC (RBC) [Mass/Vol] 33.2 g/dL 32.0-35.0 [facility] MCV Auto (RBC) [Entitic vol] Ordered By: Amanda Rosario on 01-09-2023 MCV (RBC) [Entitic vol] 90.3 fL 80-100 [facility] Monocytes Auto (Bld) [#/Vol] Ordered By: Amanda Rosario on 01-09-2023 Monocytes (Bld) [#/Vol] 0.5 10*3/uL 0.0-0.8 [facility] Monocytes/100 WBC Auto (Bld) Ordered By: Amanda Rosario on 01-09-2023 Monocytes/100 WBC (Bld) 10.5 % . [facility] Neutrophils Auto (Bld) [#/Vo l]Ordered By: Amanda Rosario on 01-09-2023 Neutrophils (Bld) [#/Vol] 3.2 10*3/uL 1.8-7.7 [facility] Neutrophils/100 WBC Auto (Bl d)Ordered By: Amanda Rosario on 01-09-2023 Neutrophils/100 WBC (Bld) 67.3 % . [facility] No Panel InformationOrdered By: Amanda Rosario on 01-09-2023 Estimated GFR () > 60 mL/Min [facility] Comment on above: GFR estimated refere nce range: According to KDOQI guidelines, <60 ml/min/1.73m2 is sufficient to diagnose a patient with chronic kidney disease. Pharmacy Creatinine Clearance (Chem 120.49 [facility] Nucleated erythrocytes [Pres ence] in Blood by Automated countOrdered By: Amanda Rosario on 01-09-2023 Nucleated RBC Auto Ql (Bld) 0.1 /100{WBC} 0-0.5 [facility] Platelet mean volume Auto (B ld) [Entitic vol]Ordered By: Amanda Rosaroi on 01-09-2023 Platelet mean volume (Bld) [Entitic vol] 7.9 fL 6.3-10.7 [facility] Platelets Auto (Bld) [#/Vol] Ordered By: Amanda Rosario on 01-09-2023 Platelets (Bld) [#/Vol] 290 10*3/uL 150-450 [facility] Potassium [Moles/volume] in Serum or PlasmaOrdered By: Amanda Rosario on 01-09-2023 Potassium [Moles/Vol] 4.4 mmol/L 3.5-5.1 [facility] Protein [Mass/volume] in Ser um or PlasmaOrdered By: Amanda Rosario on 01-09-2023 Protein [Mass/Vol] 6.6 g/dL 6.1-7.9 [facility] RBC Auto (Bld) [#/Vol]Ordere d By: Amanda Rosario on 01-09-2023 RBC (Bld) [#/Vol] 4.37 10*6/uL 3.60-5.00 [facility] Serum or plasma alanine green otransferase measurement without P-5'-P (enzymatic activiOrdered By: Amanda Rosario on 01-09-2023 ALT No additional P-5'-P [Catalytic activity/Vol] 20 U/L 10-60 [facility] Serum or plasma albumin/glob ulin mass ratioOrdered By: Amanda Rosario on 01-09-2023 Albumin/Globulin [Mass ratio] 1.9 {ratio} [facility] Serum or plasma anion gap de terminationOrdered By: Amanda Rosario on 01-09-2023 Anion gap [Moles/Vol] 10.2 mmol/L 6.0-15.0 [facility] Sodium [Moles/volume] in Ser um or PlasmaOrdered By: Amanda Rosario on 01-09-2023 Sodium [Moles/Vol] 137 mmol/L 136-146 [facility] Urea nitrogen [Mass/volume] in Serum or PlasmaOrdered By: Amanda Rosario on 01-09-2023 Urea nitrogen [Mass/Vol] 13 mg/dL 9-23 [facility] WBC Auto (Bld) [#/Vol]Ordere d By: Amanda Rosario on 01-09-2023 WBC (Bld) [#/Vol] 4.8 10*3/uL 3.8-11.6 [facility] CBC AUTO DIFFon 12-31-2022 BASO # 0.1 103/ul Normal 0.0-0.1 [facility] Comment on above: Performed By: #### C BC #### [facility] [address] [address] [address] Beth Pineda Basophils/100 WBC (Bld) 1.2 % Normal 0.2-2.0 [facility] Comment on above: Performed By: #### C BC #### [facility] [address] [address] [address] Beth Pineda EO # 0.1 103/ul Normal 0.0-0.7 [facility] Comment on above: Performed By: #### C BC #### [facility] [address] [place] [address] Dr. Beth Pineda Eosinophils/100 WBC (Bld) 2.1 % Normal 0.9-7.0 [facility] Comment on above: Performed By: #### C BC #### [facility] [address] [place] [address] Dr. Beth Pineda Erythrocyte distribution width (RBC) [Ratio] 12.9 % Normal 11.0-15.0 [facility] Comment on above: Performed By: #### C BC #### [facility] [address] [place] [address] Dr. Beth Pineda Hematocrit (Bld) [Volume fraction] 41.2 % Normal 36.0-48.0 [facility] Comment on above: Performed By: #### C BC #### [facility] [address] [place] [address] Dr. Beth Pineda Hemoglobin (Bld) [Mass/Vol] 13.5 g/dL Normal 12.0-16.0 [facility] Comment on above: Performed By: #### C BC #### [facility] [address] [place] [address] Dr. Beth Pineda IG # 0.01 10e3/ul Normal 0.00-0.03 [facility] Comment on above: Performed By: #### C BC #### [facility] [address] [place] [address] Dr. Beth Pineda IG % 0.2 % Normal 0.0-0.5 [facility] Comment on above: Performed By: #### C BC #### [facility] [address] [place] [address] Dr. Beth Pineda LYMPH # 1.6 103/ul Normal 1.2-3.8 [facility] Comment on above: Performed By: #### C BC #### [facility] [address] [place] [address] Dr. Beth Pineda Lymphocytes/100 WBC (Bld) 29.9 % Normal 20.5-60.0 [facility] Comment on above: Performed By: #### C BC #### [facility] [address] [place] [address] Dr. Beth Pineda MANUAL DIFF REQ NO Normal [facility] Comment on above: Performed By: #### C BC #### [facility] [address] [place] [address] Dr. Beth Pineda MCH (RBC) [Entitic mass] 30.3 pg Normal 26.7-34.0 [facility] Comment on above: Performed By: #### C BC #### [facility] [address] [place] [address] Dr. Beth Pineda MCHC (RBC) [Mass/Vol] 32.8 g/dL Normal 29.9-35.2 [facility] Comment on above: Performed By: #### C BC #### [facility] [address] [place] [address] Dr. Beth Pineda MCV (RBC) [Entitic vol] 92.6 fL Normal 81.0-99.0 [facility] Comment on above: Performed By: #### C BC #### [facility] [address] [place] [address] Dr. Beth Pineda MONO # 0.4 103/ul Normal 0.3-0.8 [facility] Comment on above: Performed By: #### C BC #### [facility] [address] [place] [address] Dr. Beth Pineda Monocytes/100 WBC (Bld) 7.9 % Normal 1.7-12.0 [facility] Comment on above: Performed By: #### C BC #### [facility] [address] [place] [address] Dr. Beth Pineda NEUT # 3.0 103/ul Normal 1.4-6.5 [facility] Comment on above: Performed By: #### C BC #### [facility] [address] [place] [address] Dr. Beth Pineda Neutrophils/100 WBC (Bld) 58.7 % Normal 43.0-75.0 [facility] Comment on above: Performed By: #### C BC #### [facility] [address] [place] [address] Dr. Beth Pineda Platelet mean volume (Bld) [Entitic vol] 9.3 fL Critically low 9.5-13.5 [facility] Comment on above: Performed By: #### C BC #### [facility] [address] [place] [address] Dr. Beth Pineda PLT 304 103/ul Normal 150-450 [facility] Comment on above: Performed By: #### C BC #### [facility] [address] [place] [address] Dr. Beth Pineda RBC 4.45 106/ul Normal 4.20-5.40 [facility] Comment on above: Performed By: #### C BC #### [facility] [address] [place] [address] Dr. Beth Pineda WBC 5.2 103/ul Normal 4.0-11.0 [facility] Comment on above: Performed By: #### C BC #### [facility] [address] [place] [address] Dr. Beth Pineda GLYCOHEMOGLOBIN A1Con 2022 ADA RECOMMENDATION SEE BELOW Normal [facility] Comment on above: Result Comment: ADA RECOMMENDED LIMIT 4.0 - 6.0 ADA THERAPEUTIC TARGET < 7.0 ACTION SUGGESTED > 7.0 Performed By: #### T SH #### [facility] [address] [place] [address] Dr. Beth Pineda Glucose [Mass/Vol] 91 mg/dL Normal [facility] Comment on above: Performed By: #### T SH #### [facility] [address] [place] [address] Dr. Beth Pineda HbA1c (Bld) [Mass fraction] 4.8 % Normal 4.5-6.2 [facility] Comment on above: Performed By: #### T SH #### [facility] [address] [place] [address] Dr. Beth Pineda LIPID PROFILEon 12-31-2022 CHOL-HDL RATIO NORM SEE BELOW Normal [facility] Comment on above: Result Comment: 3.3 - 4.4 LOW RISK 4.4 - 7.1 AVERAGE RISK 7.1 - 11.0 MODERATE RISK >11.0 HIGH RISK Performed By: #### A 1C #### [facility] [address] [place] [address] Dr. Beth Pineda Cholesterol [Mass/Vol] 180 mg/dL Normal <=200 [facility] Comment on above: Performed By: #### A 1C #### [facility] [address] [place] [address] Dr. Beth Pineda Cholesterol in HDL [Mass/Vol] 106 mg/dL Critically high 40-60 [facility] Comment on above: Performed By: #### A 1C #### [facility] [address] [place] [address] Dr. Beth Pineda Cholesterol in LDL [Mass/Vol] 66.6 mg/dL Normal [facility] Comment on above: Performed By: #### A 1C #### [facility] [address] [place] [address] Dr. Beth Pineda Cholesterol.total/Elida sterol in HDL [Mass ratio] 1.7 {ratio} Normal [facility] Comment on above: Performed By: #### A 1C #### [facility] [address] [place] [address] Dr. Beth Pineda HDL NORMAL > or = 60 mg/dl - LO W CARDIOVASCULAR RISK <40 mg/dl - HIGH CARDIOVASCULAR RISK Normal [facility] Comment on above: Performed By: #### A 1C #### [facility] [address] [place] [address] Dr. Beth Pineda LDL CALC NORMAL SEE BELOW Normal [facility] Comment on above: Result Comment: <100 mg/dl OPTIMAL 100 - 129 mg/dl NEAR OR ABOVE OPTIMAL 130 - 159 mg/dl BORDERLINE HIGH 160 - 189 mg/dl HIGH >190 mg/dl VERY HIGH Performed By: #### A 1C #### [facility] [address] [place] [address] Dr. Beth Pineda Triglyceride [Mass/Vol] 37 mg/dL Normal <=150 [facility] Comment on above: Performed By: #### A 1C #### [facility] [address] [place] [address] Dr. Beth Pineda VLDL CALC 7.4 mg/dL Normal [facility] Comment on above: Performed By: #### A 1C #### [facility] [address] [place] [address] Dr. Beth Pineda PROF 14(COMP METB)on 023 Albumin [Mass/Vol] 4.3 g/dL Normal 3.4-5.0 [facility] Comment on above: Performed By: #### T SH #### [facility] [address] [place] [address] Dr. Beth Pineda Albumin/Globulin [Mass ratio] 1.3 {ratio} Normal [facility] Comment on above: Performed By: #### T SH #### [facility] [address] [place] [address] Dr. Beth Pineda ALP [Catalytic activity/Vol] 68 U/L Normal 46-116 [facility] Comment on above: Performed By: #### T SH #### [facility] [address] [place] [address] Dr. Beth Pineda ALT [Catalytic activity/Vol] 21 U/L Normal 14-59 [facility] Comment on above: Performed By: #### T SH #### [facility] [address] [place] [address] Dr. Beth Pineda Anion gap [Moles/Vol] 12.1 mmol/L Normal [facility] Comment on above: Performed By: #### T SH #### [facility] [address] [place] [address] Dr. Beth Pineda AST [Catalytic activity/Vol] 10 U/L Critically low 15-37 [facility] Comment on above: Performed By: #### T SH #### [facility] [address] [place] [address] Dr. Beth Pineda Bilirubin [Mass/Vol] 0.6 mg/dL Normal 0.2-1.0 [facility] Comment on above: Performed By: #### T SH #### [facility] [address] [place] [address] Dr. Beth Pineda Calcium [Mass/Vol] 9.2 mg/dL Normal 8.5-10.1 [facility] Comment on above: Performed By: #### T SH #### [facility] [address] [place] [address] Dr. Beth Pineda Chloride [Moles/Vol] 103 mmol/L Normal 98-107 [facility] Comment on above: Performed By: #### T SH #### [facility] [address] [place] [address] Dr. Beth Pineda CO2 [Moles/Vol] 28.0 mmol/L Normal 21.0-32.0 [facility] Comment on above: Performed By: #### T SH #### [facility] [address] [place] [address] Dr. Beth Pineda Creatinine [Mass/Vol] 0.73 mg/dL Normal 0.55-1.02 [facility] Comment on above: Performed By: #### T SH #### [facility] [address] [place] [address] Dr. Beth Pineda EGFR-AF MICRONESIAN >60 Normal >=60 [facility] Comment on above: Performed By: #### T SH #### [facility] [address] [place] [address] Dr. Beth Pineda EGFR-NON AF MICRONESIAN >60 Normal >=60 [facility] Comment on above: Performed By: #### T SH #### [facility] [address] [place] [address] Dr. Beth Pineda Globulin (S) [Mass/Vol] 3.2 g/dL Normal [facility] Comment on above: Performed By: #### T SH #### [facility] [address] [place] [address] Dr. Beth Pineda Glucose [Mass/Vol] 89 mg/dL Normal 74-106 [facility] Comment on above: Performed By: #### T SH #### [facility] [address] [place] [address] Dr. Beth Pineda Potassium [Moles/Vol] 4.1 mmol/L Normal 3.5-5.1 [facility] Comment on above: Performed By: #### T SH #### [facility] [address] [address] [address] Beth Pineda Protein [Mass/Vol] 7.5 g/dL Normal 6.4-8.2 [facility] Comment on above: Performed By: #### T SH #### [facility] [address] [address] [address] Beth Pineda Sodium [Moles/Vol] 139 mmol/L Normal 136-145 [facility] Comment on above: Performed By: #### T SH #### [facility] [address] [address] [address] Beth Pineda Urea nitrogen [Mass/Vol] 10.0 mg/dL Normal 7.0-18.0 [facility] Comment on above: Performed By: #### T SH #### [facility] [address] [address] [address] Beth Pineda Urea nitrogen/Creatinine [Mass ratio] 13.7 mg/mg Normal [facility] Comment on above: Performed By: #### T SH #### [facility] [address] [address] [address] Beth Pineda TSHon 12-31-2022 TSH 3.121 uIU/mL Normal 0.358-3.740 [facility] Comment on above: Performed By: #### A 1C #### [facility] [address] [address] [address] Beth Pineda Albumin [Mass/volume] in Ser um or PlasmaOrdered By: Amanda Rosario on 07-08-2022 Albumin [Mass/Vol] 3.9 g/dL 3.2-5.5 [facility] Basophils Auto (Bld) [#/Vol] Ordered By: Amanda Rosario on 07-08-2022 Basophils (Bld) [#/Vol] 0.1 10*3/uL 0.0-0.2 [facility] Basophils/100 WBC Auto (Bld) Ordered By: Amanda Rosario on 07-08-2022 Basophils/100 WBC (Bld) 1.3 % . [facility] Blood hemoglobin measurement (mass/volume)Ordered By: Amanda Rosario on 07-08-2022 Hemoglobin (Bld) [Mass/Vol] 14.2 g/dL 11.8-15.4 [facility] Blood leukocytes automated c ount (number/volume)Ordered By: Amanda Rosario on 07-08-2022 WBC (Bld) [#/Vol] 5.6 10*3/uL 4.5-11.[address] [facility] [address] biopsyOrdered By: Amanda Nino se on 07-08-2022 Transferrin [Mass/Vol] 346 mg/dL 180-380 [facility] Creatinine and Glomerular fi ltration rate.predicted panel (S/P/Bld)Ordered By: Amanda Rosario on 07-08-2022 Creatinine [Mass/Vol] 0.78 mg/dL 0.44-1.03 [facility] Eosinophils Auto (Bld) [#/Vo l]Ordered By: Amanda Rosario on 07-08-2022 Eosinophils (Bld) [#/Vol] 0.1 10*3/uL 0.0-0.45 [facility] Eosinophils/100 WBC Auto (Bl d)Ordered By: Amanda Rosario on 07-08-2022 Eosinophils/100 WBC (Bld) 1.2 % . [facility] Erythrocyte distribution wid th Auto (RBC) [Ratio]Ordered By: Amanda Rosario on 07-08-2022 Erythrocyte distribution width (RBC) [Ratio] 12.4 % 11.9-15.3 [facility] Estimated glomerular filtrat ion rate (GFR) non- AmericanOrdered By: Amanda Rosario on 07-08-2022 GFR/1.73 sq M.predicted among non-blacks MDRD (S/P/Bld) [Vol rate/Area] > 60 mL/Min [facility] Ferritin [Mass/volume] in Se rum or PlasmaOrdered By: Amanda Rosario on 07-08-2022 Ferritin [Mass/Vol] 9.6 ng/mL 11-306.8 [facility] Globulin Calc (S) [Mass/Vol] Ordered By: Amanda Rosario on 07-08-2022 Globulin (S) [Mass/Vol] 2.9 g/dL [facility] Hematocrit Auto (Bld) [Volum e fraction]Ordered By: Amanda Rosario on 07-08-2022 Hematocrit (Bld) [Volume fraction] 42.7 % 34.0-46.4 [facility] Iron [Mass/volume] in Serum or PlasmaOrdered By: Amanda Rosario on 07-08-2022 Iron [Mass/Vol] 173 ug/dL 40-150 [facility] Iron binding capacity [Mass/ volume] in Serum or PlasmaOrdered By: Amanda Rosario on 07-08-2022 Iron binding capacity [Mass/Vol] 484 ug/dL 255-450 [facility] Iron saturation [Mass Fracti on] in Serum or PlasmaOrdered By: Amanda Rosario on 07-08-2022 Iron saturation [Mass fraction] 35.0 % 20-50 [facility] - Hematology and Cell countsOrdered By: Amanda Rosario on 07-08-2022 Nucleated RBC/100 WBC (Bld) [Ratio] 0.2 % 0-0.5 [facility] Lactate dehydrogenase measur ement (enzymatic activity/volume)Ordered By: Amanda Rosario on 07-08-2022 LDH (Unsp spec) [Catalytic activity/Vol] 154 U/L 45-190 [facility] Lymphocytes Auto (Bld) [#/Vo l]Ordered By: Amanda Rosario on 07-08-2022 Lymphocytes (Bld) [#/Vol] 1.5 10*3/uL 1.00-4.8 [facility] Lymphocytes/100 WBC Auto (Bl d)Ordered By: Amanda Rosario on 07-08-2022 Lymphocytes/100 WBC (Bld) 26.6 % . [facility] MCH Auto (RBC) [Entitic mass ]Ordered By: Amanda Rosario on 07-08-2022 MCH (RBC) [Entitic mass] 29.7 pg 24.7-34.3 [facility] MCHC Auto (RBC) [Mass/Vol]Or dered By: Amanda Rosario on 07-08-2022 MCHC (RBC) [Mass/Vol] 33.3 g/dL 32.0-35.0 [facility] MCV Auto (RBC) [Entitic vol] Ordered By: Amanda Rosario on 08-16-2022 MCV (RBC) [Entitic vol] 89.4 fL 80-100 [facility] Monocytes Auto (Bld) [#/Vol] Ordered By: Amanda Rosario on 07-08-2022 Monocytes (Bld) [#/Vol] 0.5 10*3/uL 0.0-0.8 [facility] Monocytes/100 WBC Auto (Bld) Ordered By: Amanda Rosario on 07-08-2022 Monocytes/100 WBC (Bld) 9.7 % . [facility] Neutrophils Auto (Bld) [#/Vo l]Ordered By: Amanda Rosario on 07-08-2022 Neutrophils (Bld) [#/Vol] 3.4 10*3/uL 1.8-7.7 [facility] Neutrophils/100 WBC Auto (Bl d)Ordered By: Amanda Rosario on 07-08-2022 Neutrophils/100 WBC (Bld) 61.2 % . [facility] No Panel InformationOrdered By: Amanda Rosario on 07-08-2022 Adrenocorticotropic Hormone 8.2 pg/mL 7.2-63.3 [facility] Comment on above: ACTH reference inter cruz for samples collected between 7 and 10 AM. Performed at: [employer] [id number] Site Damage Prevention Technician: Sai Smalls PhD, Phone: [phone] ACTH reference inter cruz for samples collected between 7 and10 AM.Performed at: [facility] [employer] [id number] Director: Sai Smalls PhD, Phone: [phone] Estimated GFR () > 60 mL/Min [facility] Comment on above: GFR estimated refere nce range: According to KDOQI guidelines, <60 ml/min/1.73m2 is sufficient to diagnose a patient with chronic kidney disease. Pharmacy Creatinine Clearance (Chem 111.22 [facility] Total Triiodothyronine 1.68 ng/mL 0.87-1.78 [facility] Platelet mean volume Auto (B ld) [Entitic vol]Ordered By: Amanda Rosario on 07-08-2022 Platelet mean volume (Bld) [Entitic vol] 8.0 fL 6.3-10.7 [facility] Platelets Auto (Bld) [#/Vol] Ordered By: Amanda Rosario on 07-08-2022 Platelets (Bld) [#/Vol] 393 10*3/uL 150-450 [facility] Protein [Mass/volume] in Ser um or PlasmaOrdered By: Amanda Rosario on 07-08-2022 Protein [Mass/Vol] 6.8 g/dL 6.1-7.9 [facility] RBC Auto (Bld) [#/Vol]Ordere d By: Amanda Rosario on 07-08-2022 RBC (Bld) [#/Vol] 4.78 10*6/uL 3.60-5.00 [facility] Random cortisol measurementO rdered By: Amanda Rosario on 07-08-2022 Cortisol [Mass/Vol] 12.6 ug/dL [facility] Comment on above: Reference range: AM 6 - 24 ug/dl PM <10 ug/dl Reference range: AM 6 - 24 ug/dl PM <10 ug/dl Serum or plasma alanine green otransferase measurement without P-5'-P (enzymatic activiOrdered By: Amanda Rosario on 07-08-2022 ALT No additional P-5'-P [Catalytic activity/Vol] 17 U/L 10-60 [facility] Serum or plasma albumin/glob ulin mass ratioOrdered By: Amanda Rosario on 07-08-2022 Albumin/Globulin [Mass ratio] 1.3 {ratio} [facility] Serum or plasma alkaline mando sphatase measurement (enzymatic activity/volume)Ordered By: Amanda Rosario on 07-08-2022 ALP [Catalytic activity/Vol] 52 U/L 32-92 [facility] Serum or plasma aspartate am inotransferase measurement (enzymatic activity/volume)Ordered By: Amanda Rosario on 07-08-2022 AST [Catalytic activity/Vol] 22 U/L 10-42 [facility] Serum or plasma calcium saritha urement (mass/volume)Ordered By: Amanda Rosario on 07-08-2022 Calcium [Mass/Vol] 9.3 mg/dL 8.2-10.2 [facility] Serum or plasma chloride obi surement (moles/volume)Ordered By: Amanda Rosario on 07-08-2022 Chloride [Moles/Vol] 104 mmol/L 95-114 [facility] Serum or plasma glucose saritha urement (mass/volume)Ordered By: Amanda Rosario on 07-08-2022 Glucose [Mass/Vol] 83 mg/dL 70-100 [facility] Comment on above: ADA recommended refe rence range Random Glucose Reference Range is dependent on time and content of last meal. Glucose of more than 200 mg/dL in a nonstressed, ambulatory subject supports the diagnosis of Diabetes Mellitus. Serum or plasma potassium me asurement (moles/volume)Ordered By: Amanda Rosario on 07-08-2022 Potassium [Moles/Vol] 4.3 mmol/L 3.5-5.1 [facility] Serum or plasma sodium measu rement (moles/volume)Ordered By: Amanda Rosario on 07-08-2022 Sodium [Moles/Vol] 134 mmol/L 136-146 [facility] Serum or plasma thyroxine (T 4) measurement (mass/volume)Ordered By: Amanda Rosario on 07-08-2022 T4 [Mass/Vol] 11.18 ug/dL 5.39-11.82 [facility] Serum or plasma total biliru bin measurement (mass/volume)Ordered By: Amanda Rosario on 07-08-2022 Bilirubin [Mass/Vol] 0.7 mg/dL 0.3-1.2 [facility] Serum or plasma total carbon dioxide measurement (moles/volume)Ordered By: Amanda Rosario on 07-08-2022 CO2 [Moles/Vol] 22.2 mmol/L 22.0-30.0 [facility] Serum or plasma urea nitroge n measurement (mass/volume)Ordered By: Amanda Rosario on 07-08-2022 Urea nitrogen [Mass/Vol] 9 mg/dL 9-23 [facility] TSH DL <= 0.005 mIU/L QnOrde red By: Amanda Rosario on 07-08-2022 TSH Qn 1.69 m[IU]/L 0.45-5.33 [facility] CHLAMYDIA/GONOCOCCUS PARMINDER ( AB/URINE/PAPon 06-19-2022 Chlamydia trachomatis, PARMINDER Negative Normal Negative [facility] Comment on above: Performed By: #### T SH #### [facility] [address] [address] [address] Beth Pineda Neisseria gonorrhoeae, PARMINDER Negative Normal Negative [facility] Comment on above: Performed By: #### T SH #### [facility] [address] [address] [address] Beth Pineda VAGINITIS/VAGINOSIS DNA PROB Kaden 06-18-2022 Steven species Negative Normal Negative [facility] Comment on above: Performed By: #### T SH #### [facility] [address] [address] [address] Beth Pineda Gardnerella vaginalis Negative Normal Negative [facility] Comment on above: Performed By: #### T SH #### [facility] [address] [address] [address] Beth Pineda Trichomonas vaginalis Negative Normal Negative [facility] Comment on above: Performed By: #### T SH #### [facility] [address] [address] [address] Beth Pineda Creatinine [Mass/volume] in UrineOrdered By: Amanda Rosario on 05-23-2022 Creatinine (U) [Mass/Vol] 26.2 mg/dL [facility] Comment on above: No reference range e stablished Laboratory - Chemistry and C hemistry - challengeOrdered By: Amanda Rosario on 05-23-2022 Lipase [Catalytic activity/Vol] 32.0 U/L 22-51 [facility] Protein [Mass/volume] in Uri neOrdered By: Amanda Rosario on 05-23-2022 Protein (U) [Mass/Vol] mg/dL 0-9 [facility] Thyroxine (T4) free [Mass/vo lume] in Serum or PlasmaOrdered By: Amanda Rosario on 05-23-2022 Free T4 [Mass/Vol] 0.88 ng/dL 0.61-1.12 [facility] Bilirubin Test strip Ql (U)O rdered By: Amanda Rosario on 10-30-2021 Bilirubin Ql (U) Negative Negative [facility] Color Auto (U)Ordered By: Ira Rosario on 10-30-2021 Color (U) Yellow Yellow [facility] Ketones Auto test strip (U) [Mass/Vol]Ordered By: Amanda Rosario on 10-30-2021 Ketones (U) [Mass/Vol] Negative Negative [facility] Nitrite Test strip Ql (U)Ord ered By: Amanda Rosario on 10-30-2021 Nitrite Ql (U) Negative Negative [facility] Protein Auto test strip (U) [Mass/Vol]Ordered By: Amanda Rosario on 10-30-2021 Protein (U) [Mass/Vol] Negative Negative [facility] Specific gravity Auto test s trip (U) [Rel density]Ordered By: Amanda Rosario on 10-30-2021 Specific gravity (U) [Rel density] 1.008 1.001-1.030 [facility] Urine clarity by refractomet ry automatedOrdered By: Amanda Rosario on 10-30-2021 Clarity Refractometry automated (U) Clear Clear [facility] Urine glucose measurement by automated test strip (mass/volume)Ordered By: Amanda Rosario on 10-30-2021 Glucose Auto test strip (U) [Mass/Vol] Normal mg/dL Normal [facility] Urine hemoglobin detection b y automated test stripOrdered By: Amanda Rosario on 10-30-2021 Hemoglobin Auto test strip Ql (U) Negative Negative [facility] Urine leukocyte esterase det ection by automated test stripOrdered By: Amanda Rosario on 10-30-2021 Leukocyte esterase Auto test strip Ql (U) Negative Negative [facility] Urobilinogen Auto test strip (U) [Mass/Vol]Ordered By: Amanda Rosario on 10-30-2021 Urobilinogen (U) [Mass/Vol] Normal mg/dL Normal [facility] pH Auto test strip (U)Ordere d By: Amanda Rosario on 10-30-2021 pH (U) 5.5 [pH] 5.0-9.0 [facility] Lab Reportson 07-31-2021 Lab Reports [id number]#1.00C D:[address] [facility] RAD - MISCon 07-31-2021 RAD - MISC [id number]#1.00C D:[address] [facility] HCG ( test) IADavidrapi d Ql (U)Ordered By: Amanda Rosario on 07-09-2021 HCG ( test) Ql (U) Negative [facility] Glucose Glucometer (BldC) [M ass/Vol]Ordered By: Amanda Rosario on 07-01-2021 Glucose [Mass/Vol] 82 mg/dL [facility] Comment on above: Random Glucose Refer ence Range is dependent on time and content of last meal. Glucose of more than 200 mg/dL in a nonstressed, ambulatory subject supports the diagnosis of Diabetes Mellitus. 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 Will follow up with the pathology report once this is resulted Dictation software was used in the creation of this note and not corrected for typographical or grammatical errors Chief Complaint Postop History of Present Gxvzvfe03-hjnz-rtz woman who underwent wide excision right posterior calf melanoma with [place] flap reconstruction as well as right inguinal and iliac sentinel lymph node biopsy on 05/17/2021. Pathology report has not yet resulted. She is recovering well. Active Problems Malignant melanoma of lower leg, right (172.7) (C43.71) Allergies No Known Drug Allergies Recorded By: Florence Fernando; 05/30/2021 2:49:13 PM Vitals Vital Signs Recorded: 30May2021 02:47PM Xwhoiiydjbj70 C, Temporal Heart Ujmy282 Nknxyjbhtbf34 Uyaybawx933, RUE, Sitting Oqhatqheb92, RUE, Sitting Blood Pressure Cuff SizeAdult Talrfg332 cm Hnmhxo28.6 kg BMI Mnhbswwfip42.58 kg/m2 BSA Calculated1.77 O2 Zbiudstrps28 Pain Scale0 Physical Exam Right groin wounds above and below the inguinal crease are both healing well without evidence of infection or seroma Right lower leg incision healing well without infection or skin separation. There is some bruising noted around the flap but no flap ischemia Signatures Electronically signed by : Sarah Leigh MD; May 30 2021 3:18PM EST (Author) Normal [facility] Dermatopathology Name MOISES PITTMAN Pathologist: ANUJA OLIVO MD Date of Procedure: 05/17/2021 Date Received: 05/21/2021 Date Reported 06/17/2021 Submitting Physician: SARAH LEIGH MD Location: Other External # Case is [...] These were compared to the original melanoma ([id number]) and are consistent with a metastatic focus [...] that were compared to the original melanoma ([id number]) and are smaller with less cytoplasm compared [...] determined by the Department of Pathology at [facility]. The FDA does not require [...] landis-yellow irregularly shaped piece of skin measuring 08l88v0fn. The specimen is embedded in toto. B: Received in formalin is a landis-yellow irregularly shaped piece of skin measuring 91q1s6hc. The specimen is embedded in toto. C: Received in formalin is a landis-yellow irregularly shaped piece of skin measuring 84h46j2dh. The specimen is embedded in toto. D: Received in formalin is a landis ellipse of skin measuring [id number], oriented by the surgeon with short stitch [...] Block 1 is at 12 o'clock. ink/05/21/2021 [facility] [place], [place] [id number] [place] [address], [facility] [address] Normal [facility] Comment on above: Performed By: #### D #### Dermatopathology HCG,URINEon 05-17-2021 Beta HCG ( test) Ql (U) Negative Normal Negative [facility] Comment on above: Performed By: #### H CGU #### [facility] [address] [id number] LYMPH GLANDon 05-17-2021 LYMPH GLAND Patient Name: AILYN PITTMAN STUDY: LYMPH GLAND; 05/17/2021 12:45 pm INDICATION: Malignant melanoma of right posterior leg. COMPARISON: None. ACCESSION NUMBER(S): [id number] ORDERING CLINICIAN: SARAH LEIGH TECHNIQUE: DIVISION OF NUCLEAR MEDICINE RADIONUCLIDE SENTINEL LYMPH NODE LYMPHOSCINTIGRAPHY A total of 0.870 millicuries of Tc-99m tilmanocept (LymphBlaBlaCar) was injected intradermally in a circumferential pattern [...] stated. This study was interpreted at [facility], [place], [place]. Electronically signed by: TAMY LAWTON MD Normal [facility] NM Lymph Glandon 05-17-2021 NM Lymph node Views Normal [facility] dmin Main Work Phone: No Panel Informationon 05-17 [facility] Work Phone: Order Reconciliationon 05-17 Order Reconciliation Page 1 Discharge Reconciliation Document Reconciliation Type: Discharge requested on behalf of Sarah Leigh (Physician) done by Sarah Leigh) Discharge - Reconciliation: 17-May-2021 09:43 by: Sarah Leigh) Home Medications EnteredHOME MEDICATIONS AT DISCHARGE DateReconciliation [...] 4 days PRN pain, Dx: G89.18 Normal [facility] Patient Profile - Preop v2on 05-17-2021 Patient Profile - Preop v2 Profile: Initial Info: How to be AddressedSamantha Spoken Language PreferredEnglish Source of Informationpatient Are you currently using the Personal Electronic Health Record or [email or web address] Are you interested in learning more about [facility] for the management of your healthnot at this time Stated Reason for Admissionwide excision melanoma right posterior leg, keystone flap and sentinel lymph node biopsy Primary Contact Name and Numberleigh ann lE [phone] Limitations on Visitors/Phone Callsnone Patient Belongingsremains with patient Patient Belongings Remaining with Patientclothing; cell phone/electronics Medications Brought to Hospitalno General Health: Weight in kg63.6 kilogram(s) Weight in mcn721.2 pound(s) Weight Methodstated Height in feet5 feet Height in inches8 inch(es) Height in cm172.7 centimeter(s) Height Methodstated BMI (kg/m2)21.324 square meter Patient or Family Member Reaction to Anesthesianever had anesthesia Blood Avoidance/Restrictionsn one Previous Transfusion Reactionno Health Mgmt: Symptoms/Conditions Managed at Homenone Are You no Are You Currently Breastfeedingno Barriers to Managing Healthnone Relationship/Environ: Living Arrangementshouse Lives Withsignificant other Resource/Environmental Concernsnone Anticipated Transition [facility] Anticipated at Transitionnone Substance: Current or [...] instruction; written material Cultural Considerationsnone Developmental Considerationsnone Oriental Orthodox Considerationsnone Other learner availableno [place] RiskPatient location auto qualifies him/her for HIGH RISK. Are there any cultural, spiritual, jain practices/values/needs that are important for us to knowno Do you want a visit/item from Pastoral Careno Would you like your Production Dispatcher/Hotel Registration Clerk notifiedno Pain Scalenumerical 0-10 Pain Scale Educationteaching [...] 17-May-2021 09:34 by Arabella Luis (ERICK DOWELL) [facility] Preop Checkliston 05-17-2021 Preop Checklist Preop Checklist: Preop Checklist: Arrival [id number] Arrival Time08:55 Procedure Typewide excision melanoma right posterior leg, keystone flap and sentinel lymph node biopsy Temperature C37.1 degrees C Temperature F98.7 degrees F Heart Rate92 beats per minute Respiratory Rate16 breath per minute Blood Pressure Swdhgvhp172 mm/Hg Blood Pressure Zurebnesx09 mm/Hg NPO Qzgdhr63-Zqt-8733 22:00 Allergy Bandno known allergies Consent Signedyes [...] Last Updated: 17-May-2021 09:36 by Arabella Luis (RN PRN) Normal [facility] Urine Teston 05-17 HCG ( test) Ql (U) Negative Negative PU-Rfqeate-H dmin Main Work Phone: Initial Visit (General Surge ry)on 05-02-2021 Initial Visit (General Surgery) Diagnoses/Problems Malignant melanoma of lower leg, right (172.7) (C43.71) *Orders Malignant melanoma of lower leg, right Urine Test; Status:Active - Retrospective By Protocol Authorization; Requested for:02May2021; Perform:Lab Services - Lab To Draw (Non-Blood Test); Due:[id number]; Last Updated By:Di Giles; 05/02/2021 3:07:40 PM;Ordered; For:Malignant melanoma of lower leg, right; Ordered By:Sarah Leigh; Malignant melanoma of lower leg, right (172.7) [...] errors Chief Complaint Melanoma History of Present Qagwauq43-fyyk-foa woman referred from [facility] for right [...] basins Signatures Electronically signed by : Sarah Leigh MD; May 02 2021 4:04PM EST (Author) Normal [employer] Vital Signs Date Time Vital Sign Value Performing Clinician Facility 04-16-2025 14:02-0400 Body mass index (BMI) [Ratio] 26.4 kg/m2 Delvis Kt DO Work Phone: [facility] 03-08-2025 14:02-0400 Body weight 81.1 kg Delvis Kt DO Work Phone: [facility] 03-08-2025 14:02-0400 Diastolic blood pressure 64 mm[Hg] Delvis Kt DO Work Phone: [facility] 03-08-2025 14:02-0400 Systolic blood pressure 112 mm[Hg] Delvis Kt DO Work Phone: [facility] 02-21-2025 10:54-0400 Body mass index (BMI) [Ratio] 25.81 kg/m2 Delvis Kt DO Work Phone: [facility] 02-21-2025 10:54-0400 Body weight 79.29 kg Delvis Kt DO Work Phone: [facility] 02-21-2025 10:54-0400 Diastolic blood pressure 60 mm[Hg] Delvis Kt DO Work Phone: [facility] 02-21-2025 10:54-0400 Systolic blood pressure 110 mm[Hg] Delvis Kt DO Work Phone: [facility] 02-09-2025 10:41-0400 Body mass index (BMI) [Ratio] 25.22 kg/m2 Amanda TADEO Work Phone: [facility] 02-09-2025 10:41-0400 Body weight 77.47 kg Amanda TADEO Work Phone: [facility] 02-09-2025 10:41-0400 Diastolic blood pressure 68 mm[Hg] Amanda TADEO Work Phone: [facility] 02-09-2025 10:41-0400 Systolic blood pressure 118 mm[Hg] Amanda TADEO Work Phone: [facility] 01-25-2025 11:16-0500 Body mass index (BMI) [Ratio] 24.63 kg/m2 Delvis Kt DO Work Phone: [facility] 01-25-2025 11:16-0500 Body weight 75.66 kg Delvis Kt DO Work Phone: [facility] 01-25-2025 11:16-0500 Diastolic blood pressure 78 mm[Hg] Delvis Kt DO Work Phone: [facility] 01-25-2025 11:16-0500 Systolic blood pressure 124 mm[Hg] Delvis Kt DO Work Phone: [facility] 01-11-2025 14:27-0500 Body mass index (BMI) [Ratio] 24.04 kg/m2 Delvis Kt DO Work Phone: [facility] 01-11-2025 14:27-0500 Body weight 73.85 kg Delvis Kt DO Work Phone: [facility] 01-11-2025 14:27-0500 Diastolic blood pressure 58 mm[Hg] Delvis Kt DO Work Phone: [facility] 01-11-2025 14:27-0500 Systolic blood pressure 112 mm[Hg] Delvis Tk DO Work Phone: [facility] 12-28-2024 11:12-0500 Body mass index (BMI) [Ratio] 23.35 kg/m2 Delvis Kt DO Work Phone: [facility] 12-28-2024 11:12-0500 Body weight 71.72 kg Delvis Kt DO Work Phone: [facility] 12-28-2024 11:12-0500 Diastolic blood pressure 74 mm[Hg] Delvis Kt DO Work Phone: [facility] 12-28-2024 11:12-0500 Systolic blood pressure 120 mm[Hg] Delvis Kt DO Work Phone: [facility] 11-28-2024 14:41-0500 Body mass index (BMI) [Ratio] 22.74 kg/m2 Delvis Kt DO Work Phone: [facility] 11-28-2024 14:41-0500 Body weight 69.85 kg Delvis Kt DO Work Phone: [facility] 11-28-2024 14:41-0500 Diastolic blood pressure 70 mm[Hg] Delvis Kt DO Work Phone: [facility] 11-28-2024 14:41-0500 Systolic blood pressure 118 mm[Hg] Delvis Kt DO Work Phone: [facility] 10-24-2024 14:44-0500 Body mass index (BMI) [Ratio] 22 kg/m2 Delvis Kt DO Work Phone: [facility] 10-24-2024 14:44-0500 Body weight 67.59 kg Delvis Kt DO Work Phone: [facility] 10-24-2024 14:44-0500 Diastolic blood pressure 68 mm[Hg] Delvis Kt DO Work Phone: [facility] 10-24-2024 14:44-0500 Systolic blood pressure 114 mm[Hg] Delvis Kt DO Work Phone: [facility] 10-11-2024 14:39-0500 Body height 175.3 cm Mike Wagner MD Work Phone: [facility] 10-11-2024 14:39-0500 Body mass index (BMI) [Ratio] 21.56 kg/m2 Mike Wagner MD Work Phone: [facility] 10-11-2024 14:39-0500 Body temperature 97.5 [degF] Mike Wagner MD Work Phone: [facility] 10-11-2024 14:39-0500 Body weight 66.22 kg Mike Wagner MD Work Phone: [facility] 10-11-2024 14:39-0500 Diastolic blood pressure 52 mm[Hg] Mike Wagner MD Work Phone: [facility] 10-11-2024 14:39-0500 Heart rate 106 /min Mike Wagner MD Work Phone: [facility] 10-11-2024 14:39-0500 Respiratory rate 22 /min Mike Wagner MD Work Phone: [facility] 10-11-2024 14:39-0500 SaO2% (BldA) [Mass fraction] 99 % Mike Wagner MD Work Phone: [facility] 10-11-2024 14:39-0500 Systolic blood pressure 118 mm[Hg] Mike Wagner MD Work Phone: [facility] 09-26-2024 15:17-0500 Body mass index (BMI) [Ratio] 21.34 kg/m2 Delvis Kt DO Work Phone: [facility] 09-26-2024 15:17-0500 Body weight 65.55 kg Delvis Kt DO Work Phone: [facility] 09-26-2024 15:17-0500 Diastolic blood pressure 68 mm[Hg] Delvis Kt DO Work Phone: [facility] 09-26-2024 15:17-0500 Systolic blood pressure 116 mm[Hg] Delvis Kt DO Work Phone: [facility] 08-26-2024 10:04-0400 Body mass index (BMI) [Ratio] 20.97 kg/m2 [facility] Nurse [facility] 08-26-2024 10:04-0400 Body weight 64.41 kg [facility] Nurse [facility] 08-26-2024 10:04-0400 Diastolic blood pressure 82 mm[Hg] [facility] Nurse [facility] 08-26-2024 10:04-0400 Systolic blood pressure 118 mm[Hg] [facility] Nurse [facility] 05-22-2023 08:55-0400 Body temperature 97.8 [degF] MD Sarah Leigh Work Phone: [facility] 05-22-2023 08:55-0400 Body weight 69.85 kg MD Sarah Leigh Work Phone: [facility] 05-22-2023 08:55-0400 Diastolic blood pressure 68 mm[Hg] MD Sarah Leigh Work Phone: [facility] 05-22-2023 08:55-0400 Heart rate 79 /min MD Sarah Leigh Work Phone: [facility] 05-22-2023 08:55-0400 Respiratory rate 16 /min MD Sarah Leigh Work Phone: [facility] 05-22-2023 08:55-0400 SaO2% (BldA) [Mass fraction] 98 % MD Sarah Leigh Work Phone: [facility] 05-22-2023 08:55-0400 Systolic blood pressure 108 mm[Hg] MD Sarah Leigh Work Phone: [facility] 01-21-2023 14:57-0500 Body temperature 97.8 [degF] MD Sarah Leigh Work Phone: [facility] 01-21-2023 14:57-0500 Body weight 67.2 kg MD Sarah Leigh Work Phone: [facility] 01-21-2023 14:57-0500 Diastolic blood pressure 79 mm[Hg] MD Sarah Leigh Work Phone: [facility] 01-21-2023 14:57-0500 Heart rate 72 /min MD Sarah Leigh Work Phone: [facility] 01-21-2023 14:57-0500 Respiratory rate 16 /min MD Sarah Leigh Work Phone: [facility] 01-21-2023 14:57-0500 SaO2% (BldA) [Mass fraction] 98 % MD Sarah Leigh Work Phone: [facility] 01-21-2023 14:57-0500 Systolic blood pressure 119 mm[Hg] MD Sarah Leigh Work Phone: [facility] 07-08-2022 13:02-0400 Body height 172.72 cm MD Amanda Rosario Work Phone: [facility] 07-08-2022 13:02-0400 Body temperature 98 [degF] MD Amanda Rosario Work Phone: [facility] 07-08-2022 13:02-0400 Body weight 67.81 kg MD Amanda Rosario Work Phone: [facility] 07-08-2022 13:02-0400 Diastolic blood pressure 71 mm[Hg] MD Amanda Rosario Work Phone: [facility] 07-08-2022 13:02-0400 Heart rate 95 /min MD Amanda Rosario Work Phone: [facility] 07-08-2022 13:02-0400 Respiratory rate 20 /min MD Amanda Rosario Work Phone: [facility] 07-08-2022 13:02-0400 SaO2% (BldA) [Mass fraction] 97 % MD Amanda Rosario Work Phone: [facility] 07-08-2022 13:02-0400 Systolic blood pressure 115 mm[Hg] MD Amanda Rosario Work Phone: [facility] 05-30-2021 14:47-0400 Body height 173 cm Price Girard Work Phone: MK-Jxtnkov-Yvvfd Main Work Phone: 05-30-2021 14:47-0400 Body mass index (BMI) [Ratio] 21.58 kg/m2 Price Girard Work Phone: UZ-Bkdwbty-Pnmfl Main Work Phone: 05-30-2021 14:47-0400 Body surface area Derived from formula 1.77 m2 Price Girard Work Phone: IU-Yovznaa-Lylvx Main Work Phone: 05-30-2021 14:47-0400 Body temperature 98.6 [degF] Price Girard Work Phone: BI-Iferoib-Gqosk Main Work Phone: 05-30-2021 14:47-0400 Body weight 64.6 kg Price Girard Work Phone: AD-Emftwhk-Hwjaq Main Work Phone: 05-30-2021 14:47-0400 Diastolic blood pressure 77 mm[Hg] Price Girard Work Phone: CM-Wddqown-Lgbls Main Work Phone: 05-30-2021 14:47-0400 Heart rate 103 /min Price Girard Work Phone: NG-Zsozjoq-Lrtqp Main Work Phone: 05-30-2021 14:47-0400 Respiratory rate 16 /min Price Girard Work Phone: II-Pctirzs-Qcyug Main Work Phone: 05-30-2021 14:47-0400 SaO2% (BldA) [Mass fraction] 99 % Price Girard Work Phone: TW-Ltyozzq-Nfptc Main Work Phone: 05-30-2021 14:47-0400 Systolic blood pressure 131 mm[Hg] Price Girard Work Phone: UY-Wldpjea-Jyduo Main Work Phone: 05-30-2021 14:47-0400 0 1 Price Girard Work Phone: CS-Fljuoxc-Ydxck Main Work Phone: Comment on above: Cristhian 1995 00:00-0400 >na< 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 Encounters Encounter Date Encounter Type Care Provider Facility Start: 03-08-2025 End: 03-08-2025 Bamboo flowsheet Delvis Kt DO Work Phone: [facility] Start: 03-08-2025 End: 03-08-2025 Bamboo flowsheet Delvis Kt DO Work Phone: [facility] Start: 03-08-2025 End: 03-08-2025 flow sheet Delvis Kt DO Work Phone: [facility] Comment on above: Third trimester preg mei; 35 weeks gestation of ; Pyelectasis of fetus on ultrasound Start: 03-06-2025 End: 03-06-2025 Clinisync Result Encounter Generic External Data Provider [facility] External [facility] Unsolicited Start: 03-06-2025 End: 03-06-2025 Clinisync Result Encounter Generic External Data Provider [facility] External [facility] Unsolicited Start: 02-21-2025 End: 02-21-2025 Bamboo flowsheet Delvis [...] OB Start: 02-09-2025 End: 02-09-2025 ambulatory AMANDA GONZALEZ Not Available Start: 02-09-2025 End: 02-09-2025 flow [...] Start: 10-24-2024 End: 10-26-2024 External Result Encounter Edlvis Kt DO Work Phone: [facility] [...] Phone: [facility] Start: 08-23-2024 End: 10-01-2024 Bamboo flowsheet Delvis Kt DO Work Phone: [...] Start: 08-19-2023 End: 08-19-2023 ambulatory Amanda Abraham Facility:[facility] Start: 05-22-2023 End: 05-22-2023 ambulatory MD Sarah Leigh Work Phone: [facility] Work Phone: Start: 05-22-2023 End: 05-22-2023 Registered Recurring MD Sarah Leigh Work Phone: [facility] Work Phone: Start: 04-07-2023 End: 04-08-2023 [...] Start: 01-21-2023 End: 01-21-2023 ambulatory MD Sarah Leigh Work Phone: [facility] Work Phone: Start: 01-21-2023 End: 01-21-2023 Registered Recurring MD Sarah Leigh Work Phone: [facility] Work Phone: Start: 01-13-2023 End: 01-13-[address] DELVIS MERAZ . Facility:[facility] Start: 01-01-2023 Encounter for genera l adult medical examination without abnormal findings DR MIKE WAGNER [facility] Start: 12-31-2022 End: 01-01-[address] MIKE WAGNER Facility:[facility] Start: 12-31-2022 End: 01-01-2023 Encounter for general adult medical examination without abnormal findings DR MIKE WAGNER Facility:[facility] Start: 07-08-2022 End: 07-08-2022 Registered Recurring MD [facility] [place] Start: 06-16-2022 End: 06-16-[address] DELVIS MERAZ . Facility:[facility] Start: 04-09-[address] AMANDA ROSARIO Facility :[facility] Start: 06-22-2021 Chart Update Price Girard Work Phone: [facility] Work Phone: Start: 06-18-2021 [facility]at[facility] Start: 05-30-2021 Postop follow up vis it related to original px Price Girard Work Phone: FJ-Btfbsqi-Kmnor Main Work Phone: Procedures Date Procedure Procedure Detail Performing Clinician Start: 03-08-2025 Urnls dip stick/tabl et rgnt non-auto w/o micrscp Delvis Kt DO Work Phone: Start: 03-06-2025 US for multiple gest ation limited Generic External Data Provider Start: 02-21-2025 Urnls dip stick/tabl et rgnt non-auto w/o micrscp Delvis Kt DO Work Phone: Start: 02-09-2025 Urnls dip stick/tabl et rgnt non-auto w/o micrscp Amanda Gonzalez PA Work Phone: Start: 01-25-2025 Urnls dip stick/tabl [...] Core y Kt DO Work Phone: Start: 09-10-2024 [facility] PREG QUANT HCG Core y Kt DO Work Phone: Start: 01-09-2023 Ultrasonography of limb MD Sarah Leigh Work Phone: Start: 10-10-2022 Computed tomography of abdomen and pelvis with contrast MD Sarah Leigh Work Phone: Start: 10-10-2022 CT of thorax with contrast MD Sarah Leigh Work Phone: Start: 07-08-2022 Ultrasonography of limb [...] Activity Detail Author Start: 07-24-2025 Influenza vaccination Influenza Vaccine (Season Ended) [facility] Start: 03-15-2025 End: 03-15-2025 Patient encounter procedure 03/15/2025 2:00 PM EDT Routine [facility] [address] [place] [address] Delvis Meraz, DO [address] [address] [facility] Start: 03-08-2025 End: 03-08-2026 CULTURE, GROUP B STREP WITH SUSCEPTIBLITY CULTURE, GROUP B STREP WITH SUSCEPTIBLITY Lab Routine Third trimester Expected: 03/08/2025, Expires: 03/08/2026 [facility] Work Phone: Comment on above: Expected: 03/08/2025, Expires: Start: 03-08-2025 End: 09-07-2025 US biophysical profile w non stress test US biophysical profile w non stress test Imaging Routine Pyelectasis of fetus on ultrasound Expected: 03/08/2025 (Approximate), Expires: 09/07/2025 [facility] Comment on above: Expected: 03/08/2025 (Approximate), Expi res: 09/07/2025 Start: 03-08-2025 End: 03-08-2025 Patient encounter procedure [facility] Comment on above: Arrived Start: 02-21-2025 End: 02-21-2026 US for US OB limited 1+ fetuses Imaging Routine Third trimester 33 weeks gestation of Abnormal finding on ultrasound Expected: 02/21/2025, Expires: 02/21/2026 [facility] Work Phone: Comment on above: Expected: 02/21/2025, Expires: Start: 02-21-2025 End: 02-21-2025 Patient encounter procedure 02/21/2025 10:40 AM EDT Routine [facility] [address] [place] [address] Delvis Meraz DO [address] [place], [place] [id number] [facility] Start: 02-09-2025 End: 02-09-2025 Patient encounter procedure 02/09/2025 10:20 AM EDT [facility] [address] [facility] [place] [place] [address] Amanda Gonzalez PA [address] [place], [place] [id number] [facility] Start: 01-25-2025 End: 01-25-2025 Patient encounter procedure 01/25/2025 11:00 AM EST Routine [facility] [address] [facility] [place] [address] Delvis Meraz, DO [address] [place] [address] [facility] Start: 01-11-2025 End: 01-11-2025 Patient encounter procedure 01/11/2025 2:00 PM EST Routine [facility] [address] [place] [address] Delvis Meraz, DO [address] [address] [facility] Start: 12-28-2024 End: 12-28-2025 CBC panel - Blood by Automated count CBC Lab Routine Diabetes mellitus screening Expected: 12/28/2024 (Approximate), Expires: 12/28/2025 [facility] Work Phone: Comment on above: Expected: 12/28/2024 (Approximate), Expi res: 12/28/2025 Start: 12-28-2024 End: 12-28-2025 Measurement of glucose 1 hour after glucose challenge for glucose tolerance test Glucose tolerance, 1 hour Lab Routine Diabetes mellitus screening Expected: 12/28/2024 (Approximate), Expires: 12/28/2025 [facility] Comment on above: Expected: 12/28/2024 (Approximate), Expi res: 12/28/2025 Start: 12-28-2024 End: 12-28-2024 Patient encounter procedure [facility] Comment on above: Arrived Start: 12-27-2024 End: 12-27-2024 Patient encounter procedure 12/27/2024 8:40 AM EST Routine [facility] [address] [place] [id number] Delvis Meraz, DO [address] [place] [address] [facility] Start: 11-28-2024 End: 11-28-2024 Patient encounter procedure 11/28/2024 2:10 PM EST Routine [facility] [address] [place] [address] Delvis Meraz, DO [address] [place] [address] [facility] Start: 10-24-2024 End: 10-24-2024 Patient encounter procedure 10/24/2024 2:10 PM EST Routine [facility] [address] [place] [address] Delvis Meraz, DO [address] [address] [facility] Start: 10-24-2024 End: 10-24-2025 Alpha fetoprotein, maternal Alpha fetoprotein, maternal Lab Routine Second trimester 16 weeks gestation of Expected: 10/24/2024 (Approximate), Expires: 10/24/2025 [facility] Comment on above: Expected: 10/24/2024 (Approximate), Expi res: 10/24/2025 Start: 10-24-2024 End: 10-24-2025 US for US OB ANATOMY SINGLE W US OB CERVICAL LENGTH Imaging Routine Screening, , for anatomic survey Expected: 10/24/2024 (Approximate), Expires: 10/24/2025 [facility] Comment on above: Expected: 10/24/2024 (Approximate), Expi res: 10/24/2025 Start: 09-26-2024 End: 09-26-2024 Patient encounter procedure 09/26/2024 2:20 PM EST Routine [facility] [address] [place] [address] Delvis Meraz, DO [address] [place] [address] [facility] Start: 08-26-2024 End: 08-26-2025 ABO/Rh ABO/Rh Lab Routine Missed menses , unspecified gestational age Expected: 08/26/2024 (Approximate), Expires: 08/26/2025 [facility] Comment on above: Expected: 08/26/2024 (Approximate), Expi res: 08/26/2025 Start: 08-26-2024 End: 08-26-2025 Blood type and Indirect antibody screen panel - Blood Type and screen Lab Routine Missed menses , unspecified gestational age Expected: 08/26/2024 (Approximate), Expires: 08/26/2025 [facility] Work Phone: Comment on above: Expected: 08/26/2024 (Approximate), Expi res: 08/26/2025 Start: 08-26-2024 End: 08-26-2025 Drugs of abuse panel - Urine by Screen method Rapid drug screen, urine Lab Routine , unspecified gestational age Encounter for supervision of normal first in first trimester Expected: 08/26/2024 (Approximate), Expires: 08/26/2025 [facility] Comment on above: Expected: 08/26/2024 (Approximate), Expi res: 08/26/2025 Start: 08-26-2024 End: 08-26-2025 US Pelvis transvaginal US OB transvaginal Imaging Routine Missed menses Expected: 08/26/2024 (Approximate), Expires: 08/26/2025 [facility] Comment on above: Expected: 08/26/2024 (Approximate), Expi res: 08/26/2025 Start: 08-26-2024 End: 08-26-2024 ambulatory 08/26/2024 10:00 AM EDT Initial [facility] [address] [place] [address] [facility] Start: 08-26-2024 End: 08-26-2024 Professional / ancillary services management 08/26/2024 9:30 AM EDT Ancillary Procedure [facility] [address] [place] [id number] [facility] Start: 08-23-2024 End: 08-23-2024 Patient encounter procedure 08/23/2024 10:50 AM EDT Routine [facility] [address] [place] [phone] Delvis Meraz, [address] [address] [facility] Comment on above: Arrived Start: 07-24-2024 Influenza vaccination Influenza Vaccine (#1) [facility] Start: 05-23-2022 [facility] Start: 04-25-2022 [facility] Start: 03-28-2022 [facility] Start: 02-28-2022 [facility] Start: 01-31-2022 [facility] Start: 01-28-2022 [facility] Start: 12-31-2021 [facility] Start: 12-24-2021 [facility] Start: 11-29-2021 [facility] Start: 11-01-2021 [facility] Start: 10-28-2021 [facility] Start: 10-02-2021 End: 10-03-2021 [facility] Start: 09-06-2021 [facility] Start: 09-03-2021 [facility] Start: 08-08-2021 [facility] Start: 07-11-2021 [facility] Adrenocorticotropic hormone measurement [facility] Bacteria identified in Urine by Culture Urine culture Microbiology Routine Missed menses Ordered: 08/26/2024 [facility] Comment on above: Ordered: 08/26/2024 Bacteria identified in Urine by Culture Urine culture Microbiology Routine Hematuria, unspecified type Ordered: 10/24/2024 [facility] Comment on above: Ordered: 10/24/2024 Bacteria identified in Urine by Culture Urine culture Microbiology Routine Urinary tract infection without hematuria, site unspecified Ordered: 12/28/2024 [facility] Comment on above: Ordered: 12/28/2024 CBC W Auto Different ial panel - Blood CBC and differential Lab Routine Missed menses , unspecified gestational age Ordered: 08/26/2024 [facility] Comment on above: Ordered: 08/26/2024 CBC W Auto Different ial panel - Blood CBC and differential Lab Routine Low hemoglobin Ordered: 01/25/2025 [facility] Work Phone: Comment on above: Ordered: 01/25/2025 CHLAMYDIA TRACHOMATI S (GENITO/STI) CHLAMYDIA TRACHOMATIS (GENITO/STI) Lab Routine STD exposure Ordered: 10/24/2024 [facility] Comment on above: Ordered: 10/24/2024 Comprehensive metabo lic 1999 panel - Serum or Plasma [facility] Work Phone: Comprehensive metabo lic 1999 panel - Serum or Plasma [facility] Comprehensive metabo lic 1999 panel - Serum or Plasma [facility] Comprehensive metabo lic 1999 panel - Serum or Plasma [facility] CT Abdomen and Pelvi s W contrast IV [facility] Work Phone: CT Abdomen and Pelvi s W contrast IV [facility] CT Abdomen and Pelvi s W contrast IV [facility] CT Chest W contrast IV [facility] Work Phone: CT Chest W contrast IV [facility] CT Chest W contrast IV [facility] Ferritin [Mass/volum e] in Serum or Plasma [facility] Work Phone: Hemoglobin A1c/Hemoglobin.total in Blood Hemoglobin A1c Lab Routine Missed menses , unspecified gestational age Ordered: 08/26/2024 [facility] Comment on above: Ordered: 08/26/2024 Hepatitis B virus blevins rface Ag [Presence] in Serum or Plasma by Immunoassay Hepatitis B surface antigen Lab Routine Missed menses , unspecified gestational age Ordered: 08/26/2024 [facility] Comment on above: Ordered: 08/26/2024 Hepatitis C virus Ab [Presence] in Serum or Plasma by Immunoassay Hepatitis C antibody Lab Routine Missed menses , unspecified gestational age Ordered: 08/26/2024 [facility] Comment on above: Ordered: 08/26/2024 HIV-1/HIV-2 antigen/ antibody combination immunoassay HIV-1 and HIV-2 antibodies Lab Routine Missed menses , unspecified gestational age Ordered: 08/26/2024 [facility] Comment on above: Ordered: 08/26/2024 Lactate dehydrogenas e [Enzymatic activity/volume] in Unspecified specimen [facility] Work Phone: Neisseria gonorrhoea e DNA [Presence] in Unspecified specimen by PARMINDER with probe detection Neisseria gonorrhea DNA probe, direct Lab Routine STD exposure Ordered: 10/24/2024 [facility] Comment on above: Ordered: 10/24/2024 Reagin Ab [Presence] in Serum by RPR RPR Lab Routine Missed menses , unspecified gestational age Ordered: 08/26/2024 [facility] Comment on above: Ordered: 08/26/2024 Rubella antibody, IgG Rubella an tibody, IgG Lab Routine Missed menses , unspecified gestational age Ordered: 08/26/2024 [facility] Comment on above: Ordered: 08/26/2024 SURESWAB(R) ADVANCED VAGINITIS PLUS, TMA SURESWAB(R) ADVANCED VAGINITIS PLUS, TMA Pathology and Cytology Routine Vaginal discharge Ordered: 10/24/2024 [facility] Work Phone: Comment on above: Ordered: 10/24/2024 Thyrotropin [Units/v olume] in Serum or Plasma [facility] Thyroxine (T4) free [Mass/volume] in Serum or Plasma [facility] Triiodothyronine (T3 ) Free [Mass/volume] in Serum or Plasma [facility] Work Phone: [facility] Immunizations Immunization Date Immunization Notes Care Provider Molly chinchilla 07-09-2018 influenza virus vaccine, unspecified formulation Generic Provider [facility] 1997 pneumococcal conjuga te vaccine, 7 valent Essence Blevins 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 Payers Date Payer Category Payer Unknown [id number] 2022 [facility] Blue Shield [id number] [id number] 2022 Unknown 2021 Self-pay [id number] 2021 Unknown [id number] 2021 Unknown [id number] 2019 Unknown [id number] 1997 Unknown [id number] 2.16.84 0.1.298943.3.579.2.593 1997 Unknown [id number] 2.16.84 0.1.214786.3.579.2.593 1997 Unknown [id number] 2.16.84 0.1.761580.3.579.2.593 1997 Unknown [id number] 2.16.84 0.1.371275.3.579.2.593 1997 Unknown [id number] 2.16.84 0.1.675187.3.579.2.593 1997 Unknown [id number] 2.16.84 0.1.382499.3.579.2.593 1997 Unknown [id number] 2.16.84 0.1.362858.3.579.2.593 1997 Unknown [id number] 2.16.84 0.1.180428.3.579.2.593 1997 Unknown [id number] 2.16.84 0.1.110900.3.579.2.593 1997 Unknown [id number] 2.16.84 0.1.049023.3.579.2.593 1997 Unknown [id number] 2.16.84 0.1.025389.3.579.2.1259 1997 Unknown [id number] 2.16.84 0.1.585446.3.579.2.1258 1997 Unknown [id number] 2.16.84 0.1.285671.3.579.2.1258 1997 Unknown [id number] 2.16.84 0.1.532880.3.579.2.1258 1997 Unknown [id number] 2.16.84 0.1.109127.3.579.2.1258 1997 Unknown [id number] 2.16.84 0.1.263728.3.579.2.1258 1997 Unknown [id number] 2.16.84 0.1.091774.3.579.2.1258 1997 Unknown [id number] 2.16.84 0.1.671099.3.579.2.1258 1997 Unknown [id number] 2.16.84 0.1.669253.3.579.2.1258 1997 Unknown [id number] 2.16.84 0.1.910511.3.579.2.9 1959 Unknown [id number] 1959 Unknown [id number] Unknown [id number] 2.16.8 40.1.599444.3.579.2.531 Social History Date Type Detail Facility Start: 06-18-2021 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 Start: 1995 Sex Assigned At Female [facility] Start: 07-08-2022 End: 04-10-2023 Tobacco smoking status NHIS Never smoked tobacco (finding) [facility] Start: 04-10-2023 Tobacco use and exposure Smokeless tobacco non-user [facility] Start: 02-22-2024 End: 03-08-2025 Alcoholic beverage intake Ex-drinker (finding) [facility] Start: 02-22-2024 End: 10-11-2024 History of Social function [facility] Start: 02-22-2024 End: 10-11-2024 Social connection and isolation panel [facility] Do you belong to any clubs or organizations such as orthodoxy groups, unions, fraternal or athletic groups, or [...] Desired Activity /State Clinical Notes 05-14-2021 to 03-08-2025 Lorri Fernandez LPN - 03/08/2025 1:40 PM John Fernandez LPN - 02/21/2025 10:40 AM Dayami Givens LPN - 02/09/2025 10:20 AM John Fernandez LPN - 01/25/2025 11:00 AM EST Note Date & Type Note Facility 03-08-2025 History of Presen t illness Narrative Reason [...] nursing note reviewed. Exam conducted with a used car lot attendant present. Vitals: Estimated body mass index is 26.4 kg/m as calculated from the following: Height as of 24: 5' 9 . Weight as of this encounter: 178 lb 12.8 oz. BP: 112/64 No LMP recorded. Patient is . ASSESSMENT & PLAN ICD-10-CM 1. Third trimester Z34.93 CULTURE, GROUP B STREP WITH SUSCEPTIBLITY POCT urinalysis dipstick manually resulted 2. 35 weeks gestation of Z3A.35 POCT urinalysis dipstick manually resulted 3. Pyelectasis of fetus on ultrasound O35.EXX0 US biophysical profile w non stress test Patient is doing well but has complaints of being tired and having maternal discomfort due to . Patient verbalized frequent movement and was instructed to perform kick counts three times per day. labor precautions were given, LARC consent was signed/declined, and GBS was obtained. Cervical check was performed and patient is 3cm dilated. Pt fetus has bilateral pyelectasis- given order for NST/BPP to start. Orders Placed This Encounter Procedures US biophysical profile w non stress test CULTURE, GROUP B STREP WITH SUSCEPTIBLITY POCT urinalysis dipstick manually resulted Follow Up: Patient is to return to office in 1 week for routine OB appointment Documented by Lorri Fernandez LPN on behalf of: Delvis Meraz DO documented in this encounter [facility] 02-21-2025 History of Presen t illness Narrative [...] nursing note reviewed. Exam conducted with a used car lot attendant present. Vitals: Estimated body mass index is [...] of: NALDO Flaherty documented in this encounter [facility] 02-09-2025 History of Presen t illness Narrative [...] nursing note reviewed. Exam conducted with a used car lot attendant present. Vitals: Estimated body mass index is [...] of: CARLYLE Flaherty documented in this encounter [facility] 01-25-2025 History of Presen t illness Narrative [...] nursing note reviewed. Exam conducted with a used car lot attendant present. Vitals: Estimated body mass index is [...] Delvis Meraz DO documented in this encounter [facility] 01-11-2025 History of Presen t illness Narrative [...] nursing note reviewed. Exam conducted with a used car lot attendant present. Vitals: Estimated body mass index is [...] Delvis Meraz DO documented in this encounter [facility] 12-28-2024 History of Presen t illness Narrative [...] nursing note reviewed. Exam conducted with a used car lot attendant present. Vitals: Estimated body mass index is [...] Delvis Meraz DO documented in this encounter [facility] 11-28-2024 History of Presen t illness Narrative [...] nursing note reviewed. Exam conducted with a used car lot attendant present. Vitals: Estimated body mass index is [...] Delvis Meraz DO documented in this encounter [facility] 10-24-2024 History of Presen t illness Narrative [...] nursing note reviewed. Exam conducted with a used car lot attendant present. Vitals: Estimated body mass index is [...] Delvis Meraz DO documented in this encounter [facility] 10-11-2024 History of Presen t illness Narrative [...] 300 MG capsule documented in this encounter [facility] 09-26-2024 History of Presen t illness Narrative [...] nursing note reviewed. Exam conducted with a used car lot attendant present. Vitals: Estimated body mass index is [...] or undercooked meat, and stay away from [facility]. Patient has been consulted regarding any [...] Amanda Gonzalez PA-C documented in this encounter [facility] 08-26-2024 History of Presen t illness Narrative [...] or undercooked meat, and stay away from [facility]. Patient has also been advised to [...] by: Jasmyne Segura documented in this encounter [facility] 05-23-2023 Progress note Note Date/Time May 22, 2023 9:03[facility] [place] [address] Hem/Onc Follow Up Note - OP Signed Patient: Ailyn Baron MR#: [id number] : 1995 Acct:[id number] Age/Sex: 27 / F Type: REG RCR [...] of restaging CT CAP by phone with ACCIDENT EXAMINER in October--no evidence of recurrence. Saw dermatology [...] iron at [facility] per her request. Normal thyroid, cortisol,and CMP [...] trauma. 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 She was referred to Dr. Sarah Leigh and underwent WLE with 2 cm margins [...] anemia at [facility] 03/2022 ROS Details: All systems reviewed & [...] Mild Nivolumab infusion reaction in February 2022. [facility] History Attestation statement: The following [...] DAILY PRN Anxiety 06/18/21 [History Confirmed 05/22/23] VBL-bxlm-CZ-omega 3-fat com #1 27 mg-1 mg-300 mg [...] Creatinine Clear 154.92, Sodium 136, Potassium 4.2, Epdziyel153, Carbon Dioxide 26.1, Anion Gap 10.1, BUN [...] % (Auto) 79.8, Lymph % (Auto) 12.8, Comal % (Auto) 6.4, Eos % (Auto) 0.6, Baso % (Auto) 0.4, Nucleat RBC Rel Count 0.2, Neut # (Auto) 8.2 H, Lymph # (Auto) 1.3, Comal # (Auto) 0.7, Eos # (Auto) 0.1, [...] 07/11/2021. I sent her imaging to Dr. Leigh--the only concerning finding was a nonspecific uptake [...] Venofer infusionsat [facility] (300mg IV x 3 doses) 03/2022 with followup CBC, serum iron profile, and ferritin in one month. Consider GI evaluation for iron deficiency. 07/09/2022: She is doing well on oral iron recommended by her environment friendly landscape designer. She does not plan to have children anytime soon, but discussed with her environment friendly landscape designer the best iron supplementation to be on [...] for coordination of care (as documented) and odgl-jx-slvp counseling of patient and/or family. Dictated By: Amanda Rosario MD DD/ 1 Signed By: <Electronically signed by MD Amanda Rosario> 05/23/23 1106 [facility] Work Phone: 1(244) 888-430603-01-2023 Progress note Author Amanda Rosario [facility] January 21, 2023 8:51pm Note Date/Time January 21, 2023 3:01 pm [facility] [place] [address] Hem/Onc Follow Up Note - OP Signed Patient: Ailyn Baron MR#: [id number] : 1995 Acct:[id number] Age/Sex: 27 / F Type: REG RCR Copies to: MD Mike Ewing MD~ Subjective Date/Time of Service: Date of Service: 01/21/2023 Time of Service: 15:00 Chief Complaint: Patient is here today for a 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 No new concerns HPI: 01/21/2023: Ailyn had review of restaging CT CAP by phone with ACCIDENT EXAMINER in October--no evidence of recurrence. Saw dermatology [...] iron at [facility] per her request. Normal thyroid, cortisol,and CMP [...] trauma. 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 She was referred to Dr. Sarah Leigh and underwent WLE with 2 cm margins [...] anemia at [facility] 03/2022 ROS Details: All systems reviewed & [...] Mild Nivolumab infusion reaction in February 2022. [facility] History Attestation statement: The following information [...] DAILY PRN Anxiety 06/18/21 [History Confirmed 01/21/23] WPZ-hwyu-JK-omega 3-fat com #1 27 mg-1 mg-300 mg [...] 07/11/2021. I sent her imaging to Dr. Leigh--the only concerning finding was a nonspecific uptake [...] Venofer infusionsat [facility] (300mg IV x 3 doses) 03/2022 with followup CBC, serum iron profile, and ferritin in one month. Consider GI evaluation for iron deficiency. 07/09/2022: She is doing well on oral iron recommended by her environment friendly landscape designer. She does not plan to have children anytime soon, but discussed with her environment friendly landscape designer the best iron supplementation to be on [...] for coordination of care (as documented) and bawi-tm-kswy counseling of patient and/or family. Dictated By: Amanda Rosario MD DD/ 1500 Signed By: <Electronically signed by MD Amanda Rosario> 01/21/232050 [facility] Work Phone: 1(332) 133-520708-17-2022 Progress note Author Ale Malone [facility] July 09, 2022 1:35pm Note Date/Time July 08, 2022 1: 31pm [facility] [place] [address] Hem/Onc Follow Up Note - OP Signed with Addenda Patient: Ailyn Baron MR#: [id number] : 1995 Acct:[id number] Age/Sex: 27 / F Type: REG RCR Copies to: MD Sarah Gillespie MD Marc Naderer, MD~ ADDENDUM1 After discussion with Dr. Rosario, we will have the patient follow-up in 3 months instead of 6, and will plan repeat CT c/a/p prior to that visit. Addendum Dictated By: KKII Malone Addendum Signed By: 07/09/221334 Addendum Cosigned [...] iron at [facility] per her request. Normal thyroid, cortisol,and CMP [...] trauma. 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 She was referred to Dr. Sarah Leigh and underwent WLE with 2 cm margins [...] % (Auto) 61.2, Lymph % (Auto) 26.6, Comal % (Auto) 9.7, Eos % (Auto) 1.2, Baso % (Auto) 1.3, Neut # (Auto) 3.4, Lymph # (Auto) 1.5, Comal # (Auto) 0.5, Eos# (Auto) 0.1, Baso [...] 07/11/2021. I sent her imaging to Dr. Leigh--the only concerning finding was a nonspecific uptake [...] infusions at [facility] (300mg IV x 3 doses) with followup CBC, serum iron profile,and ferritin in one month. Consider GI evaluation for iron deficiency. 07/09/2022: She is doing well on oral iron recommended by her environment friendly landscape designer. She does not plan to have children anytime soon, but discussed with her environment friendly landscape designer the best iron supplementation to be on [...] for coordination of care (as documented) and [id number]-cdvg counseling of patient and/or family. Dictated By: Ale Malone APRN DD/ 1331 Signed By: <Electronically signed by KIKI Malone> 07/09/22 0958 [facility] Work Phone: 1(181) 250-789705-12-2022 Progress note Author Amanda Rosario [facility] April 03, 2022 8:56pm Note Date/Time April 02, 2022 8:30p m [facility] [place] [address] Hem/Onc Follow Up Note - OP Signed Patient: Ailyn Baron MR#: [id number] : 1995 Acct:[id number] Age/Sex: 26 / F Type: REG RCR [...] iron at [facility] per her request. Normal thyroid, cortisol,and CMP [...] trauma. 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 She was referred to Dr. Sarah Leigh and underwent WLE with 2 cm margins [...] Mild Nivolumab infusion reaction in February 2022. [facility] [facility] - History Attestation statement: The following [...] Creatinine Clear 115.14, Sodium 136, Potassium 4.1, [id number], Carbon Dioxide 24.5, BUN 9, Creatinine 0.76, [...] % (Auto) 46.7, Lymph % (Auto) 30.6, Comal % (Auto) 20.8, Eos % (Auto) 0.9, Baso % (Auto) 1.0, Neut # (Auto) 1.6 L, Lymph # (Auto) 1.1, Comal # (Auto) 0.7, Eos # (Auto) 0.0, [...] 07/11/2021. I sent her imaging to Dr. Leigh--the only concerning finding was a nonspecific uptake [...] infusions at [facility] (300mg IV x 3 doses) with followup [...] for coordination of care (as documented) and vrwk-gp-hzqv counseling of patient and/or family. Dictated By: Amanda Rosario MD DD/ 28 Signed By: <Electronically signed by MD Amanda Rosario> 04/03/222055 [facility] Work Phone: 1(141) 583-411002-23-2022 Progress note Author Amanda Rosario [facility] January 15, 2022 9:15pm Note Date/Time January 15, 2022 11:55am [facility] [place] [address] Hem/Onc Follow Up Note - OP Signed Patient: Ailyn Pittman MR#: [id number] : 1995 Acct:[id number] Age/Sex: 26 / F Type: REG RCR [...] trauma. 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 She was referred to Dr. Sarah Leigh and underwent WLE with 2 cm margins [...] 07/11/2021. I sent her imaging to Dr. Leigh--the only concerning finding was a nonspecific uptake [...] for coordination of care (as documented) and xdxd-sr-lgnm counseling of patient and/or family. Dictated By: Amanda Rosario MD DD/ 1155 Signed By: <Electronically signed by MD Amanda Rosario> 01/15/22 2111 [facility] Work Phone: 1(968) 518-143011-11-2021 Progress note Author [facility] October 03, 2021 10:47am Note Date/Time October 03, 2021 10:34am [facility] [place] [id number] Hem/Onc Follow Up Note - OP Signed Patient: Ailyn Pittman MR#: [id number] : 1995 Acct:[id number] Age/Sex: 26 / F Type: REG RCR [...] trauma. 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 She was referred to Dr. Sarah Leigh and underwent WLE with 2 cm margins [...] Negative for environmental allergies and food allergies. [facility] - Medical History Medical History: Medical [...] Creatinine Clear 112.19, Sodium 139, Potassium 4.1, [id number], Carbon Dioxide 26.4, BUN 9, Creatinine 0.78, [...] % (Auto) 66.7, Lymph % (Auto) 23.1, Comal % (Auto) 8.3, Eos % (Auto) 1.0, Baso % (Auto) 0.9, Neut # (Auto) 5.0, Lymph # (Auto) 1.7, Comal # (Auto) 0.6, Eos# (Auto) 0.1, Baso [...] 07/11/2021. I sent her imaging to Dr. Leigh--the only concerning finding was a nonspecific uptake [...] for coordination of care (as documented) and jxxu-pm-dnct counseling of patient and/or family. Dictated By: Denia Alvares APRN DD/ 1025 Signed By: <Electronically signed by KIKI Alvares> 10/03/21 1047 [facility] Work Phone: 1(651) 143-651908-27-2021 Progress note Author Amanda Rosario [facility] July 19, 2021 12:54pm Note Date/Time July 18, 2021 2: 10pm [facility] [place] [address] Hem/Onc Follow Up Note - OP Signed Patient: Ailyn Pittman MR#: [id number] : 1995 Acct:[id number] Age/Sex: 26 / F Type: REG RCR [...] trauma. 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 She was referred to Dr. Sarah Leigh and underwent WLE with 2 cm margins [...] Negative for environmental allergies and food allergies. 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 She signed informed consent for Nivolumab immunotherapy 480mg IV every 4 weeks for 12 treatments over nearlyone year. We reviewed her baseline staging with whole body PET/CT prior to commencing therapy with cycle 1 day 1 07/11/2021. I sent her imaging to Dr. Leigh--the only concerning finding was a nonspecific uptake [...] for coordination of care (as documented) and nkax-bd-xxhe counseling of patient and/or family. Dictated By: Amanda Rosario MD DD/ 1409 Signed By: <Electronically signed by MD Amanda Rosario> 07/19/21 1250 [facility] Work Phone: 1(213) 211-972708-03-2021 Consult note Author Amanda Rosario [facility] June 24, 2021 10:09pm Note Date/Time June 24, 2021 2:1 8pm [facility] [place] [address] Hem/Onc Consult Note - OP Signed Patient: Ailyn Pittman MR#: [id number] : 1995 Acct:[id number] Age/Sex: 26 / F Type: REG RCR Copies to: MD Price Ewing MD~ HPI Date/Time of Service: Date of Service: 06/24/2021 Time of Service: 14:16 Referring Provider/PCP: Referring Provider: Sarah Leigh MD PCP: Price Girard MD - History of Present Illness Reason for Consultation: Referral from Dr. 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 Chief Complaint: Patient is here today for a referral from Dr Sarah Leigh MD for Melanoma of her right lower leg HPI: Dear Dr. Leigh, I had the great pleasure of seeing your patient in consultation. Thank you verymuch for your referral. As you know, this is a 26 year old female G0, no medical history, who presented with a changing mole of right leg since Nov 2020. Noted this increased in size, became more raised, then started bleeding after minor trauma. 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 She was referred to Dr. 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 She signed informed consent for Nivolumab [...] for coordination of care (as documented) and klal-ig-dhzy counseling of patient and/or family. Dictated By: Amanda Rosario MD DD/ 1416 Signed By: <Electronically signed by MD Amanda Rosario> 06/24/21 8508 [facility] Work Phone: [phone]) 147-233906-25-2021 NotePROCEDURE DETAILS Preoperative Diagnosis: Malignant melanoma of right posterior calf, C43.71 Postoperative Diagnosis: Malignant melanoma of right posterior calf, C43.71 Surgeon: Sarah Leigh Resident/Fellow/Other Powerhouse Mechanic: Yao Jaquez Procedure: WIDE EXCISION MELANOMA RIGHT POSTERIOR LEG, KEYSTONE FLAP RIGHT INGUINAL AND ILIAC SENTINEL LYMPH NODE BIOPSY Anesthesia: [place] Estimated Blood Loss: 5 Findings: 2 superficial [...] procedure. Note Recipients: Price Girard MD - [phone] [] Bettina Mad[place], [facility] - [phone] [] Attestation: Note Completion: Attending AttestationI performed the procedure without a resident Electronic Signatures: Sarah Leigh) (Signed 17-May-2021 18:18) Authored: Post-Operative Note, Chart Review, Note Completion Last Updated: 17-May-2021 18:18 by Sarah Leigh)[facility] 05-17-2021 History of Present illness [id number]-jyss-dkx woman who underwent wide excision right posterior calf melanoma with Philadelphia flap reconstruction as well as right inguinal and iliac sentinel lymph node biopsy on 05/17/2021. Pathology report has not yet resulted. She is recovering well.[facility] Work Phone: 1(360) 322-676306-25-2021 History of Present illness Narrative 25-year-old woman who underwent wide excision right posterior calf melanoma with Philadelphia flap reconstruction as well as right inguinal and iliac sentinel lymph node biopsy on 05/17/2021. Pathology report has not yet resulted. She is recovering well.[facility] Work Phone: 1(176) 416-903106-25-2021 NoteHistory & Physical Reviewed: /Lactating: Are You [...] what the risks are. Electronic Signatures: Sarah Leigh) (Signed 17-May-2021 09:36) Authored: History & Physical Reviewed, ERAS, Consent, Note Completion Last Updated: 17-May-2021 09:36 by Sarah Leigh () References: 1. Data Referenced From Patient Profile - Preop v2 17-May-2021 09:27[facility]06-22-2021 NoteAccession #: [id number] Pathologist: ANUJA OLIVO MD Date of Procedure: 05/14/2021 Date Received: 05/14/2021 Submitting Physician: SARAH LEIGH MD Location: [facility] Copy To/Referring/Attending: ROLY EDGE DO FINAL DIAGNOSIS 2 SL[facility]ES[facility] #[id number] (BX: 04/23/2021) SKIN, RT POST LEG, SHAVE [...] MD. CANCER SUMMARY REPORT A. 2 [facility] #[id number] (BX: 04/23/2021): SPECIMEN Procedure: Biopsy, shave Specimen [...] report. Primary Tumor (pT): pT3b ADDITIONAL TESTING POWERHOUSE MECHANIC BLOCKS: Tumor Block: CSPL slide [id number] Electronically Signed Out By ANUJA OLIVO MD/BEBETO Microscopic Description: Microscopic examination performed. Clinical History: SHAVE/ BCC VS MM VS PG 1.9 X 1.9CM Specimens Submitted As: A: 2 SLIDES[facility] #[id number] (BX: 04/23/2021) Gross Description: Received for consultation from [facility] are two slides labeled [id number] (BX: 04/23/2021) along with the corresponding pathology report. Slide/Block Description 2 SLIDES, [id number]. Keep Slides: N Slides Returned: N Personal Consult: [facility] HospitalComment on above:Performed By: #### D #### DermatopathologyEvaluation noteN/ADept. 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 Evaluation note* Diagnosis Onset Date Resolution Status Iron deficiency anemia acute Chiari malformation type I c hronic Edema of right lower extremity chronic Encounter for antineoplastic immunotherapy chronic Malignant melanoma of right lower leg chronic [facility] Work Phone: Evaluation note* Diagnosis Onset Date Resolution Status Chiari malformation type I c hronic Edema of right lower extremity chronic Encounter for antineoplastic immunotherapy chronic Iron deficiency anemia chron ic Malignant melanoma of right lower leg chronic [facility] Work Phone: Evaluation noteNo assessment information available [facility] Work Phone: Evaluation note* Diagnosis Missed menses [...] hematuria, site unspecified [facility] [...] incidental Low hemoglobin [facility] Diagnosis Acute non-recurrent pansinusitis- Primary Second trimester state, incidental Malignant melanoma of right lower limb, including hip (CMS/HCC) 32 weeks gestation of Third trimester state, incidental [facility] Diagnosis Acute non-recurrent pansinusitis- Primary Second trimester state, incidental Malignant melanoma of right lower limb, including hip (CMS/HCC) Third trimester state, incidental 33 weeks gestation of Abnormal finding on ultrasound [facility] Diagnosis Acute non-recurrent pansinusitis- Primary Second trimester state, incidental Malignant melanoma of right lower limb, including hip (CMS/HCC) Third trimester state, incidental 35 weeks gestation of Pyelectasis of fetus on ultrasound [facility] Dis[facility] instructionsAmbulatory Orders* RISE Order Time Frame: 1 Day, Location: Determined By Patient * Survivourship Follow Up Time Frame: 3 Months, Location: Determined By Patient [facility] Work Phone: Progress note Author Ale Malone [facility] July 09, 2022 1:35pm Note Date/Time July 08, 2022 1: 31pm [facility] at [address] [address] Hem/Onc Follow Up Note - OP Signed with Addenda Patient: Ailyn Baron MR#: [id number] : 1995 Acct:[id number] Age/Sex: 27 / F Type: REG RCR [...] iron at [facility] per her request. Normal thyroid, cortisol,and CMP [...] trauma. 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 She was referred to Dr. Sarah Leigh and underwent WLE with 2 cm margins [...] % (Auto) 61.2, Lymph % (Auto) 26.6, Comal % (Auto) 9.7, Eos % (Auto) 1.2, Baso % (Auto) 1.3, Neut # (Auto) 3.4, Lymph # (Auto) 1.5, Comal # (Auto) 0.5, Eos# (Auto) 0.1, Baso [...] 07/11/2021. I sent her imaging to Dr. Leigh--the only concerning finding was a nonspecific uptake [...] infusions at [facility] (300mg IV x 3 doses) with followup CBC, serum iron profile,and ferritin in one month. Consider GI evaluation for iron deficiency. 07/09/2022: She is doing well on oral iron recommended by her environment friendly landscape designer. She does not plan to have children anytime soon, but discussed with her environment friendly landscape designer the best iron supplementation to be on [...] for coordination of care (as documented) and svrv-ei-obbd counseling of patient and/or family. Dictated By: Ale Malone APRN DD/ 1331 Signed By: <Electronically signed by KIKI Malone> 07/09/22 0958 [facility] Work Phone: Progress note Author Amanda Rosario [facility] January 21, 2023 8:51pm Note Date/Time January 21, 2023 3:01 pm [facility] [place] [id number] Hem/Onc Follow Up Note - OP Signed Patient: Ailyn Baron MR#: [id number] : 1995 Acct:[id number] Age/Sex: 27 / F Type: REG RCR Copies to: MD Mike Ewing MD~ Subjective Date/Time of Service: Date of Service: 01/21/2023 Time of Service: 15:00 Chief Complaint: Patient is here today for a 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 No new concerns HPI: 01/21/2023: Ailyn had review of restaging CT CAP by phone with ACCIDENT EXAMINER in October--no evidence of recurrence. Saw dermatology [...] iron at [facility] per her request. Normal thyroid, cortisol,and CMP [...] trauma. 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 She was referred to Dr. Sarah Leigh and underwent WLE with 2 cm margins [...] anemia at [facility] 03/2022 ROS Details: All systems reviewed & [...] Mild Nivolumab infusion reaction in February 2022. [facility] - History Attestation statement: The following [...] DAILY PRN Anxiety 06/18/21 [History Confirmed 01/21/23] UXN-pesp-TG-omega 3-fat com #1 27 mg-1 mg-300 mg [...] 07/11/2021. I sent her imaging to Dr. Leigh--the only concerning finding was a nonspecific uptake [...] Venofer infusionsat [facility] (300mg IV x 3 doses) 03/2022 with followup CBC, serum iron profile, and ferritin in one month. Consider GI evaluation for iron deficiency. 07/09/2022: She is doing well on oral iron recommended by her environment friendly landscape designer. She does not plan to have children anytime soon, but discussed with her environment friendly landscape designer the best iron supplementation to be on [...] for coordination of care (as documented) and xolc-gf-rffa counseling of patient and/or family. Dictated By: Amanda Rosario MD DD/ 1500 Signed By: <Electronically signed by MD Amanda Rosario> 01/21/232050 [facility] Work Phone: Reason for referral (narrative)* Name [...] section and content) DATE CREATED AUTHOR 05/31/2021 [employer] DATE CREATED AUTHOR AUTHOR'S ORGANIZ ATION 06/18/2021 [facility] DATE CREATED AUTHOR AUTHOR'S ORGANIZ ATION 08/01/2021 [facility] DATE CREATED AUTHOR AUTHOR'S ORGANIZ ATION 01/18/2022 [facility] DATE CREATED AUTHOR AUTHOR'S ORGANIZ ATION 04/08/2023 [facility] DATE CREATED AUTHOR AUTHOR'S ORGANIZ ATION 09/25/2024 [facility] DATE CREATED AUTHOR AUTHOR'S ORGANIZ ATION 02/22/2025 [facility] EPIC Care Teams (unrecognized sec tion and content) Team Status: Active Member Role Status Dates Mike Wagner MD Primary Care Provider Active Team Status: Active Member Role Status Dates Amanda Rosario MD Attending Provider Active Sarah Leigh MD Referring Provider Active Mike Wagner MD Primary Care Provider Active Technical Business Systems Analyst Relationship Specialty Start Date End Date Mike Wagner MD [address] [place] [address] PCP - General Family Medicine 02/09/24 Shaikh Melendrez MD [address] [place] [address] PCP - [employer] 08/23/23 Technical Business Systems Analyst Relationship Specialty Start Date End Date Mike Wagner MD [address] [place] [address] PCP - General Family Medicine 02/09/24 Shaikh Melendrez MD [address] [place] [address] PCP - [employer] 08/23/23 Technical Business Systems Analyst Relationship Specialty Start Date End Date Mike Wagner MD [address] [place] [address] PCP - General Family Medicine 02/09/24 Shaikh Melendrez MD [address] [place] [address] PCP - [employer] 08/23/23 Technical Business Systems Analyst Relationship Specialty Start Date End Date Mike Wagner MD [address] [place] [address] PCP - General Family Medicine 02/09/24 Melissa Zhou NP [address] [place] [address] PCP - [employer] 08/23/24 Technical Business Systems Analyst Relationship Specialty Start Date End Date Mike Wagner MD [address] [place] [address] PCP - General Family Medicine 02/09/24 Melissa Zhou NP [address] [place] [address] PCP - [employer] 08/23/24 Technical Business Systems Analyst Relationship Specialty Start Date End Date Mike Wagner MD [address] [place] [address] PCP - General Family Medicine 02/09/24 Melissa Zhou NP [address] [place] [address] PCP - [employer] 08/23/24 Technical Business Systems Analyst Relationship Specialty Start Date End Date Mike Wagner MD [address] [place] [address] PCP - General Family Medicine 02/09/24 Melissa Zhou NP [address] [place] [address] PCP - [employer] 08/23/24 Technical Business Systems Analyst Relationship Specialty Start Date End Date Mike Wagner MD [address] [place] [address] PCP - General Family Medicine 02/09/24 Melissa Zhou NP [address] [place] [address] PCP - [employer] 08/23/24 Technical Business Systems Analyst Relationship Specialty Start Date End Date Mike Wagner MD [address] [place] [address] PCP - General Family Medicine 02/09/24 Shaikh Melendrez MD [address] [place] [address] PCP - [employer] 08/23/23 Technical Business Systems Analyst Relationship Specialty Start Date End Date Mike Wagner MD [address] [place] [address] PCP - General Family Medicine 02/09/24 Melissa Zhou NP [address] [place] [address] PCP - [employer] 08/23/24 Technical Business Systems Analyst Relationship Specialty Start Date End Date Mike Wagner MD [address] [place] [address] PCP - General Family Medicine 02/09/24 Technical Business Systems Analyst Relationship Specialty Start Date End Date Mike Wagner MD [address] [place] [address] PCP - General Family Medicine 02/09/24 Technical Business Systems Analyst Relationship Specialty Start Date End Date Mike Wagner MD [address] [place] [address] PCP - General Family Medicine 02/09/24 Technical Business Systems Analyst Relationship Specialty Start Date End Date Mike Wagner MD [address] [place] [address] PCP - General Family Medicine 02/09/24 Technical Business Systems Analyst Relationship Specialty Start Date End Date Mike Wagner MD [address] [place] [address] PCP - General Family Medicine 02/09/24 Technical Business Systems Analyst Relationship Specialty Start Date End Date Mike Wagner MD [address] [place] [address] PCP - General Family Medicine 02/09/24 Technical Business Systems Analyst Relationship Specialty Start Date End Date Mike Wagner MD [address] [place] [address] PCP - General Family Medicine 02/09/24 Goals [...] BE BASED ON THE PRIMARY CLINICAL RECORDS. [facility] [employer] [facility]. provides no warranty or guarantee of the accuracy or completeness of information in this document.
== END 2025-03-08 20:11 | disposition home or self-care (01) ==
LOC: LAB 20:10
PROVIDERS: PCP Family Medicine; Visit Provider Obstetrics & Gynecology
DX: Z34.93 Encounter for supervision of normal pregnancy, unspecified, third trimester (principal)
CPT/HCPCS: 36415; 87081

== ENCOUNTER 2025-03-15 15:54 | Outpatient (OUT) | payer BC, SELFPAY ==
--- NOTE | 2025-03-15 16:14 | US_ITS ---
[address] [address] Patient Name: BRADY BARON MRN: [id number] date: 1995 Sex: F Assigned Patient Location: [facility] [place] [facility] [place]Order Number: [id number] Exam Date: 03/16/2025 12:59 Report Date: 03/16/2025 13:01 At the request of: CRUZ JOHNSON DO Procedure: US OB BPP w non-stress Biophysical profile. Reason for exam: Bilateral pelviectasis. COMPARISON: 03/08/2025 TECHNIQUE: Transabdominal imaging of the gravid uterus was obtained. FINDINGS: Civil Engineering Technician reports a BPP of 8 out of 8. heart rate 138 bpm. DEDRICK is normal at 14.9cm. Incidental note is made of bilateral hydroceles involving the scrotum. Bilateral pelviectasis. US/US OB BPP w non-stress IMPRESSION: BPP 8 out of 8. Bilateral hydroceles involving the scrotum. Bilateral pelviectasis. Impression dictated by: Paresh Gilmore Jr., D.O.03/16/2025 1:01 PM Dictation Location: [place] [address] Electronically authenticated by: [id number] Y Date: 03/16/2025 13:01
[2025-03-15 16:39] VITALS: BP 137/73; PULSE 120
== END 2025-03-15 17:19 | disposition home or self-care (01) ==
LOC: US 15:55 → FBC 15:57
PROVIDERS: PCP Family Medicine; Visit Provider Obstetrics & Gynecology
DX: O35.EXX0 Maternal care for other (suspected) fetal abnormality and damage, fetal genitourinary anomalies, not applicable or unspecified (principal)
CPT/HCPCS: 76818

== ENCOUNTER 2025-03-18 09:06 | Outpatient (OUT) | payer BC, SELFPAY ==
[2025-03-18 09:13] VITALS: BP 139/76; PULSE 95; TEMP 36.3
== END 2025-03-18 09:49 | disposition home or self-care (01) ==
LOC: FBCO 09:06 → FBC 09:09
PROVIDERS: PCP Family Medicine; Visit Provider Obstetrics & Gynecology
DX: O26.893 Other specified pregnancy related conditions, third trimester (principal); Z3A.37 37 weeks gestation of pregnancy
CPT/HCPCS: 59025

== ENCOUNTER 2025-03-22 16:02 | Outpatient (OUT) | payer BC, SELFPAY ==
--- NOTE | 2025-03-22 | US_ITS ---
The [address] [address] Patient Name: BRADY BARON MRN: [id number] date: 1995 Sex: F Assigned Patient Location: [place] Current Patient Location: [place] Accession/Order Number: [id number] Exam Date: 03/22/2025 16:50 Report Date: 03/22/2025 16:51 At the request of: CRUZ JOHNSON DO Procedure: US OB BPP w non-stress Biophysical profile. Reason for exam: Bilateral pelviectasis. COMPARISON: 03/15/2025 TECHNIQUE: Transabdominal imaging of the gravid uterus was obtained. FINDINGS: Slitting Machine Operator reports a BPP of 8 out of 8. heart rate 135 bpm. DEDRICK is normal at 19.9 cm. Incidental note is made of bilateral hydroceles involving the scrotum. Bilateral pelviectasis. US/US OB BPP w non-stress IMPRESSION: BPP 8 out of 8. Bilateral hydroceles involving the scrotum. Bilateral pelviectasis. Impression dictated by: Paresh Gilmore Jr., D.O. 03/22/2025 4:51 PM Dictation Location: [place] [address] Electronically authenticated by: [id number] Y Date: 03/22/2025 16:51
[2025-03-22 16:39] VITALS: BP 138/76; PULSE 103
== END 2025-03-22 17:17 | disposition home or self-care (01) ==
LOC: US 16:13 → FBC 16:15
PROVIDERS: PCP Family Medicine; Visit Provider Obstetrics & Gynecology
DX: O35.EXX0 Maternal care for other (suspected) fetal abnormality and damage, fetal genitourinary anomalies, not applicable or unspecified (principal); Z3A.37 37 weeks gestation of pregnancy
CPT/HCPCS: 76818

== ENCOUNTER 2025-03-24 16:05 | Inpatient (IN) | payer BC, SELFPAY ==
[2025-03-24] VITALS (16 sets, daily range): BP systolic 110–145; BP diastolic 62–87; PULSE 89–146; TEMP 36.8–37.3
[2025-03-24 16:52] LABS: Bilirubin Urine NEGATIVE (NEGATIVE); Blood Urine NEGATIVE (NEGATIVE); Clarity Urine CLEAR (CLEAR); Color Urine LT. YELLOW (YELLOW); Glucose Urine UA NEGATIVE (NEGATIVE); Ketones Urine NEGATIVE (NEGATIVE); Leukocyte Esterase Urine TRACE (NEGATIVE); Nitrite Urine NEGATIVE (NEGATIVE); Protein Urine NEGATIVE (NEG/TRACE); Specific Gravity Urine <=1.005 (1.005-1.025); Urobilinogen Urine 0.2 EU/dL (0.2-1.0)
[2025-03-24 17:02] LABS: Urine Microscopic Indicated YES
[2025-03-24 17:04] LABS: Bacteria Urine TRACE #/HPF (NONE SEEN); Cast Seen? NONE SEEN #/LPF (NONE SEEN); Crystals Seen? None Seen #/HPF (None Seen); Mucus Urine NONE SEEN (NONE SEEN); RBC Urine NONE SEEN #/HPF (0-2); Squamous Epithelial Cell Urine NONE SEEN #/LPF (NONE/RARE); WBC Urine 0-2 #/HPF (NONE SEEN)
[2025-03-24 17:05] LABS: Urine Culture Indicated NO
[2025-03-24] MEDS: 0.9 % SODIUM CHLORIDE 1,000 ML 125 ML IV (19:35)
[2025-03-24 19:53] LABS: Hematocrit 31.7 % (36.0-48.0); Hemoglobin 10.1 g/dL (12.0-16.0); Mean Corpuscular HGB Conc 31.9 g/dL (29.9-35.2); Mean Corpuscular Hemoglobin 27.3 pg (26.7-34.0); Mean Corpuscular Volume 85.7 fL (81.0-99.0); Mean Platelet Volume 9.5 fL (9.5-13.5); Platelet Count 287 10^3/uL (150-450); White Blood Count 11.7 10^3/uL (4.0-11.0)
[2025-03-24] MEDS: OXYTOCIN/0.9 % SODIUM CHLORIDE 10 UNITS/500 ML PLAST..BAG 6 UNIT IV (20:15)
[2025-03-24] MEDS: OXYTOCIN/0.9 % SODIUM CHLORIDE 20 UNITS/1,000 ML PLAST..BAG 125 UNIT IV (23:19)
--- NOTE | 2025-03-24 23:33 | PM.OBPRCVD ---
Procedure Intrapartal events: None Induction method: per pitocin protocol Delivery augmentation: rupture of membranes and pitocin Delivery monitor: external FHT and external uterine Route of delivery: Episiotomy Description: midline L&D Laceration Description: periurethral - 1st degree and perineal - 2nd degree Delivery repair: Vicryl Estimated blood loss (mL): 350 Anesthesia type: None Disposition: floor Delivery date: 03/24/25 Gender: male presentation: vertex Placental delivery description: Spontaneous cord description: 3 Vessels
[2025-03-24] MEDS: IBUPROFEN 600 MG TABLET PO (23:56)
[2025-03-24] MEDS: GLYCERIN/WITCH HAZEL PADS 1 PAD TOPICAL (23:56)
[2025-03-24] MEDS: ACETAMINOPHEN 325 MG TABLET 650 MG PO (23:56)
[2025-03-24] MEDS: BENZOCAINE/MENTHOL 85 GRAM SPRAY BOTTLE 1 APPLIC TOPICAL (23:57)
[2025-03-25] VITALS (10 sets, daily range): BP systolic 118–124; BP diastolic 65–76; PULSE 80–101; TEMP 36.5–37.1
[2025-03-25] MEDS: LIDOCAINE HCL 1% 200 MG/20 ML MDV INJ (00:01)
[2025-03-25 06:23] LABS: Basophils Absolute Auto 0.1 10^3/uL (0.0-0.1); Basophils Percent Auto 0.4 % (0.2-2.0); Eosinophils Percent Auto 0.2 % (0.9-7.0); Hematocrit 25.9 % (36.0-48.0); Hemoglobin 8.2 g/dL (12.0-16.0); Immature Granulocytes Abs Auto 0.12 10^3/uL (0.00-0.03); Immature Granulocytes Pct Auto 0.8 % (0.0-0.5); Lymphocytes Absolute Auto 1.9 10^3/uL (1.2-3.8); Lymphocytes Percent Auto 13.4 % (20.5-60.0); Mean Corpuscular HGB Conc 31.7 g/dL (29.9-35.2); Mean Corpuscular Hemoglobin 27.2 pg (26.7-34.0); Mean Platelet Volume 9.7 fL (9.5-13.5); Monocytes Percent Auto 6.7 % (1.7-12.0); Neutrophils Absolute Auto 11.4 10^3/uL (1.4-6.5); Neutrophils Percent Auto 78.5 % (43.0-75.0); Platelet Count 268 10^3/uL (150-450); Red Blood Count 3.01 10^6/uL (4.20-5.40); Red Cell Distribution Width 13.9 % (11.0-15.0); White Blood Count 14.5 10^3/uL (4.0-11.0)
[2025-03-25] MEDS: IBUPROFEN 600 MG TABLET PO ×3 (06:48→21:23)
--- NOTE | 2025-03-25 06:57 | P.OBPN_ITS ---
OB - PN: Subj Subjective Patient comments: no complaints [place] status: doing well [place] feeding status: exclusively Exam Constitutional Vital Signs, click to edit/add: Last Vital Signs Temp 98.8 F 03/25/25 03:48 Pulse 87 03/25/25 03:48 Resp 14 03/25/25 00:11 BP 120/73 03/25/25 03:48 O2 Del Method Room Air 03/25/25 00:15 Documenting provider has reviewed patient's vital signs: yes Common normals: no apparent distress, average body habitus, oriented x3, no limi tations, healthy appearing, alert and well nourished General appearance: cooperative Orientation/consciousness: Yes awake, Yes oriented to person, Yes oriented to place and Yes oriented to time HENMT Common normals: normocephalic Eye Common normals: EOMs intact bilaterally Neck & C-Spine Common normals: full ROM and no lymphadenopathy General: normal visual inspection Lymph Lymphatic: no lymphadenopathy noted Chest Common normals: inspection of chest normal Respiratory Common normals: normal respiratory effort, no retractions, no use of accessory muscles, clear to auscultation bilaterally and percussion normal Effort & inspection: able to speak in complete sentences Auscultation: clear to auscultation bilaterally Cardio Common normals: regular rate and regular rhythm Rate: regular rate Rhythm: regular rhythm GI Common normals: Normal to inspection, nondistended, normoactive bowel sounds present, soft to palpation and non-tender Inspection: normal to inspection Auscultation: normoactive bowel sounds Palpation: soft Common normals: no CVA tenderness Back & Pelvis Common normals: no CVA tenderness Extremity Common normals: normal to inspection, full ROM, normal capillary refill, no joint enlargement, no clubbing, cyanosis or edema, no calf tenderness and no pedal edema Neuro Common normals: oriented x3 Sensorium/orientation: awake, alert, oriented to person, oriented to place and oriented to time Psych Common normals: mental status grossly normal, thought process normal, institutional research coordinator perative, affect normal, speech normal, activity/motor behavior normal, denies hallucinations, denies homicidal ideation and denies suicidal ideation Attitude: calm Activity/motor behavior: appropriate eye contact Results Labs Labs: Short CBC 03/24/25 03/25/25 Range/Units 19:30 06:10 WBC 11.7 H 14.5 H (4.0-11.0) 10^3/uL Hgb 10.1 L 8.2 L (12.0-16.0) g/dL Hct 31.7 L 25.9 L (36.0-48.0) % Plt Count 287 268 (150-450) 10^3/uL Urine 03/24/25 Range/Units 16:00 Urine Color Lt. yellow (YELLOW) Urine Clarity Clear (CLEAR) Urine pH 7.0 (5.0-9.0) Ur Specific Spencer <=1.005 A (1.005-1.025) Urine Protein Negative (NEG/TRACE) mg/dL Urine Glucose (UA) Negative (NEGATIVE) mg/dL OB - PN: A/P Plan - Vaginal Delivery day: 1 Plan: routine care Time Spent with Patient Time: Total time spent is greater than 50% in coordination of care (as documented) at patient's floor/unit and/or counseling patient: Total time spent with greater than 50% in coordination of care (as documented) at patient's floor/unit and/or counseling patient: less than 15 minutes
--- NOTE | 2025-03-25 07:36 | W.PC.ACHO ---
Registration Status: ADM IN Primary Language: Citizen [place] Preferred Language: Citizen [place] Report received from Megan RN at 0710. Care assumed. Active Medications Generic Name Dose Route Start Last Admin Trade Name Sarita PRN Reason Stop Dose Admin Acetaminophen 650 mg 03/24/25 23:34 03/24/25 23:56 Acetaminophen 325 Mg Tablet PO 650 mg Q6H PRN Administration Mild Pain Al Hydroxide/Mg Hydroxide 2,400 mg 03/24/25 23:34 Magnesium Hydroxide 2,400 Mg/10 Ml Oral.Susp PO Q6H PRN Dyspepsia Benzocaine/Menthol 1 applic 03/24/25 23:34 03/24/25 23:57 Benzocaine/Menthol 85 Gram [place] Bottle TOPICAL 1 applic Q2H PRN Administration Pain Carboprost Tromethamine 250 mcg 03/24/25 18:50 Carboprost Tromethamine 250 Mcg/Ml 1 Ml Vial IM 03/26/25 18:50 Q15M PRN Bleeding Diphtheria/Pertussis/Tetanus Vacc 0.5 ml 03/26/25 09:00 Adacel Diph,Pertuss(Acell),Tet Vac/Pf 0.5 Ml Adult Syringe IM 03/26/25 09:01 .ONCE ONE Docusate Sodium 100 mg 03/25/25 09:00 Docusate Sodium 100 Mg Capsule PO BID HAYDEN Tranexamic Acid 1,000 mg/ 110 mls @ 440 mls/hr 03/24/25 18:50 Sodium Chloride IV 03/26/25 18:50 ONCE PRN Uterine Bleeding Sodium Chloride 1,000 mls @ 125 mls/hr 03/24/25 19:00 03/24/25 23:19 Sodium Chloride 0.9% 1,000 Ml IV Infused .Q8H HAYDEN Infusion Oxytocin/Sodium Chloride 10 units in 500 mls @ 6 mls/hr 03/24/25 19:00 03/24/25 23:19 Pitocin 10 Unit/500 Ml-Ns IV Infused TITR HAYDEN Infusion Protocol 2 MILLIUNIT/MIN Ibuprofen 600 mg 03/24/25 23:34 03/25/25 06:48 Ibuprofen 600 Mg Tablet PO 600 mg Q6H PRN Administration Moderate Pain Lidocaine 5 ml 03/24/25 18:50 Lidocaine Viscous 2% 15 Ml Solution TOPICAL 03/26/25 18:53 ONCE PRN Pain Measles/Mumps/Rubella Vaccine Live 0.5 ml 03/26/25 09:00 Measles,Mumps,Rubella Vacc/Pf 0.5 Ml Vial SQ 03/26/25 09:01 .ONCE ONE Methylergonovine Maleate 0.2 mg 03/24/25 18:50 Methylergonovine Maleate 0.2 Mg/Ml Ampule IM 03/26/25 18:50 ONCE PRN Uterine Contractility/Contract Methylergonovine Maleate 0.2 mg 03/24/25 18:50 Methylergonovine Maleate 0.2 Mg Tablet PO 03/26/25 18:50 Q4H PRN Uterine Contractility/Contract Misoprostol 600 mcg 03/24/25 18:50 Misoprostol 100 Mcg Tablet PO 03/26/25 18:50 ONCE PRN Uterine Bleeding Misoprostol 800 mcg 03/24/25 18:50 Misoprostol 100 Mcg Tablet SL 03/26/25 18:50 ONCE PRN Uterine Bleeding Misoprostol 1,000 mcg 03/24/25 18:50 Misoprostol 100 Mcg Tablet MO 03/26/25 18:50 ONCE PRN Uterine Bleeding Nalbuphine HCl 10 mg 03/24/25 18:50 Nalbuphine Hcl 10 Mg/Ml Ampule IV Q3H PRN Pain Scale 4-6 Ondansetron HCl 4 mg 03/24/25 18:50 Ondansetron Pf 4 Mg/2 Ml Vial IV Q6H PRN Nausea And Vomiting Ondansetron HCl 4 mg 03/24/25 18:50 Ondansetron 4 Mg Rapdis Tablet SL Q6H PRN Nausea And Vomiting Oxytocin 10 unit 03/24/25 18:50 Oxytocin 10 Unit/Ml Vial IM 03/26/25 18:50 ONCE PRN PPH Senna 17.2 mg 03/24/25 20:00 Sennosides 8.6 Mg Tablet PO QHS PRN Constipation Simethicone 80 mg 03/24/25 23:34 Simethicone 80 Mg Tab.Chew PO QID PRN Abdominal Distention Temazepam 15 mg 03/24/25 23:34 Temazepam 15 Mg Capsule PO QHS PRN Sleep Witch Leslie/Glycerin 1 pad 03/24/25 23:34 03/24/25 23:56 Glycerin/Witch Leslie Pads TOPICAL 1 pad Q2H PRN Administration Pain Diet Category Date Time Status Regular Consistency Diet Diet 03/24/25 23:34 Active IV Insertion/Site Date of IV Line Insertion [ 03/24/25 Short PIV (<1.75 in) 22g left Forearm] IV Insertion Time [Short PIV ( 19:30 <1.75 in) 22g left Forearm] Neurology Patient orientation (short person,place,time,situation list) Respiratory Oxygen Delivery Method Room Air Oxygen Delivery Method Room Air Oxygen Delivery Method Room Air
[2025-03-25] MEDS: ACETAMINOPHEN 325 MG TABLET 650 MG PO ×2 (08:16→18:16)
[2025-03-25 09:27] LABS: Amphetamine Screen Urine NEGATIVE (NEGATIVE); Barbiturates Screen Urine NEGATIVE (NEGATIVE); Benzodiazepines Screen Urine NEGATIVE (NEGATIVE); Buprenorphine Screen Urine NEGATIVE (NEGATIVE); Cannabinoid Screen Urine NEGATIVE (NEGATIVE); Cocaine Screen Urine NEGATIVE (NEGATIVE); Methadone Screen Urine NEGATIVE (NEGATIVE); Methamphetamines Screen Urine NEGATIVE (NEGATIVE); Opiate Screen Urine NEGATIVE (NEGATIVE); Oxycodone Screen Urine NEGATIVE (NEGATIVE); Phencyclidine Screen Urine NEGATIVE (NEGATIVE); Tricyclic Antidepressant Urine NEGATIVE (NEGATIVE)
--- NOTE | 2025-03-25 13:12 | W.PC.ACHO ---
Registration Status: ADM IN Primary Language: Singaporean Preferred Language: Singaporean Report given to Essence SUAREZ. Care relinquished at 1255. Active Medications Generic Name Dose Route Start Last Admin Trade Name Freq PRN Reason Stop Dose Admin Acetaminophen 650 mg 03/24/25 23:34 03/25/25 08:16 Acetaminophen 325 Mg Tablet PO 650 mg Q6H PRN Administration Mild Pain Al Hydroxide/Mg Hydroxide 2,400 mg 03/24/25 23:34 Magnesium Hydroxide 2,400 Mg/10 Ml Oral.Susp PO Q6H PRN Dyspepsia Benzocaine/Menthol 1 applic 03/24/25 23:34 03/24/25 23:57 Benzocaine/Menthol 85 Gram [place] Bottle TOPICAL 1 applic Q2H PRN Administration Pain Carboprost Tromethamine 250 mcg 03/24/25 18:50 Carboprost Tromethamine 250 Mcg/Ml 1 Ml Vial IM 03/26/25 18:50 Q15M PRN Bleeding Diphtheria/Pertussis/Tetanus Vacc 0.5 ml 03/26/25 09:00 Adacel Diph,Pertuss(Acell),Tet Vac/Pf 0.5 Ml Adult Syringe IM 03/26/25 09:01 .ONCE ONE Docusate Sodium 100 mg 03/25/25 09:00 Docusate Sodium 100 Mg Capsule PO BID [facility] Tranexamic Acid 1,000 mg/ 110 mls @ 440 mls/hr 03/24/25 18:50 Sodium Chloride IV 03/26/25 18:50 ONCE PRN Uterine Bleeding Sodium Chloride 1,000 mls @ 125 mls/hr 03/24/25 19:00 03/24/25 23:19 Sodium Chloride 0.9% 1,000 Ml IV Infused .Q8H HAYDEN Infusion Oxytocin/Sodium Chloride 10 units in 500 mls @ 6 mls/hr 03/24/25 19:00 03/24/25 23:19 Pitocin 10 Unit/500 Ml-Ns IV Infused TITR HAYDEN Infusion Protocol 2 MILLIUNIT/MIN Ibuprofen 600 mg 03/24/25 23:34 03/25/25 06:48 Ibuprofen 600 Mg Tablet PO 600 mg Q6H PRN Administration Moderate Pain Lidocaine 5 ml 03/24/25 18:50 Lidocaine Viscous 2% 15 Ml Solution TOPICAL 03/26/25 18:53 ONCE PRN Pain Measles/Mumps/Rubella Vaccine Live 0.5 ml 05/04/25 09:00 Measles,Mumps,Rubella Vacc/Pf 0.5 Ml Vial SQ 03/26/25 09:01 .ONCE ONE Methylergonovine Maleate 0.2 mg 03/24/25 18:50 Methylergonovine Maleate 0.2 Mg/Ml Ampule IM 03/26/25 18:50 ONCE PRN Uterine Contractility/Contract Methylergonovine Maleate 0.2 mg 03/24/25 18:50 Methylergonovine Maleate 0.2 Mg Tablet PO 03/26/25 18:50 Q4H PRN Uterine Contractility/Contract Misoprostol 600 mcg 03/24/25 18:50 Misoprostol 100 Mcg Tablet PO 03/26/25 18:50 ONCE PRN Uterine Bleeding Misoprostol 800 mcg 03/24/25 18:50 Misoprostol 100 Mcg Tablet SL 03/26/25 18:50 ONCE PRN Uterine Bleeding Misoprostol 1,000 mcg 03/24/25 18:50 Misoprostol 100 Mcg Tablet [place] 03/26/25 18:50 ONCE PRN Uterine Bleeding Nalbuphine HCl 10 mg 03/24/25 18:50 Nalbuphine Hcl 10 Mg/Ml Ampule IV Q3H PRN Pain Scale 4-6 Ondansetron HCl 4 mg 03/24/25 18:50 Ondansetron Pf 4 Mg/2 Ml Vial IV Q6H PRN Nausea And Vomiting Ondansetron HCl 4 mg 03/24/25 18:50 Ondansetron 4 Mg Rapdis Tablet SL Q6H PRN Nausea And Vomiting Oxytocin 10 unit 03/24/25 18:50 Oxytocin 10 Unit/Ml Vial IM 03/26/25 18:50 ONCE PRN PPH Senna 17.2 mg 03/24/25 20:00 Sennosides 8.6 Mg Tablet PO QHS PRN Constipation Simethicone 80 mg 03/24/25 23:34 Simethicone 80 Mg Tab.Chew PO QID PRN Abdominal Distention Temazepam 15 mg 03/24/25 23:34 Temazepam 15 Mg Capsule PO QHS PRN Sleep Witch Leslie/Glycerin 1 pad 03/24/25 23:34 03/24/25 23:56 Glycerin/Witch Leslie Pads TOPICAL 1 pad Q2H PRN Administration Pain Diet Category Date Time Status Regular Consistency Diet Diet 03/24/25 23:34 Active IV Insertion/Site Date of IV Line Insertion [ 03/24/25 Short PIV (<1.75 in) 22g left Forearm] IV Insertion Time [Short PIV ( 19:30 <1.75 in) 22g left Forearm] Neurology Patient orientation (short person,place,time,situation list) Respiratory Oxygen Delivery Method Room Air Oxygen Delivery Method Room Air Oxygen Delivery Method Room Air Oxygen Delivery Method Room Air Oxygen Delivery Method Room Air Renal Bladder Pattern Continent
[2025-03-26 00:30] VITALS: BP 118/70; PULSE 87; TEMP 36.1
[2025-03-26] MEDS: DOCUSATE SODIUM 100 MG CAPSULE PO (08:06)
[2025-03-26] MEDS: IBUPROFEN 600 MG TABLET PO ×2 (08:06→15:14)
[2025-03-26 08:08] VITALS: BP 133/70; PULSE 90
[2025-03-26 08:30] VITALS: TEMP 36.7
--- NOTE | 2025-03-26 09:37 | P.OBPN_ITS ---
OB - PN: Subj Subjective Patient comments: no complaints [place] status: doing well feeding status: exclusively Exam Constitutional Vital Signs, click to edit/add: Last Vital Signs Temp 98.1 F 03/26/25 08:30 Pulse 90 03/26/25 08:08 Resp 16 03/26/25 08:30 BP 133/70 03/26/25 08:08 O2 Del Method Room Air 03/26/25 08:30 Documenting provider has reviewed patient's vital signs: yes Common normals: no apparent distress General appearance: cooperative, comfortable, well kempt and well developed Orientation/consciousness: Yes awake, Yes oriented to person, Yes oriented to place and Yes oriented to time HENMT Common normals: normocephalic Eye Common normals: EOMs intact bilaterally General eye: normal appearance of both eyes Neck & C-Spine Common normals: full ROM General: normal visual inspection Lymph Lymphatic: no lymphadenopathy noted Chest Common normals: inspection of chest normal Respiratory Common normals: normal respiratory effort, no retractions, no use of accessory muscles, clear to auscultation bilaterally and percussion normal Effort & inspection: able to speak in complete sentences Auscultation: clear to auscultation bilaterally Cardio Common normals: regular rate and regular rhythm Rate: regular rate Rhythm: regular rhythm GI Common normals: Normal to inspection, nondistended, normoactive bowel sounds present Inspection: normal to inspection Palpation: soft Common normals: no CVA tenderness Back & Pelvis Common normals: no CVA tenderness Extremity Common normals: normal to inspection, full ROM and normal capillary refill Neuro Common normals: oriented x3 Sensorium/orientation: awake, alert, oriented to person, oriented to place and oriented to time Psych Common normals: mental status grossly normal, thought process normal, cooperative, affect normal, speech normal, activity/motor behavior normal, denies hallucinations, denies homicidal ideation and denies suicidal ideation Attitude: calm OB - PN: A/P Plan - Vaginal Delivery day: 2 Plan: discharge home Time Spent with Patient Time: Total time spent is greater than 50% in coordination of care (as documented) at patient's floor/unit and/or counseling patient: Total time spent with greater than 50% in coordination of care (as documented) at patient's floor/unit and/or counseling patient: less than 15 minutes
--- NOTE | 2025-03-26 09:40 | PM.OBPN ---
OB - PN: Subj Subjective Patient comments: no complaints and pain well controlled [place] status: doing well Exam Constitutional Vital Signs, click to edit/add: Last Vital Signs Temp 98.1 F 03/26/25 08:30 Pulse 90 03/26/25 08:08 Resp 16 03/26/25 08:30 BP 133/70 03/26/25 08:08 O2 Del Method Room Air 03/26/25 08:30 Documenting provider has reviewed patient's vital signs: yes Common normals: no apparent distress Respiratory Common normals: normal respiratory effort and clear to auscultation bilaterally Cardio Common normals: regular rate and regular rhythm GI Common normals: Normal to inspection, nondistended, normoactive bowel sounds present Extremity Common normals: no clubbing, cyanosis or edema and no calf tenderness OB - PN: A/P Plan - Vaginal Delivery day: 2 Plan: routine care, discharge home and follow up 6 weeks Time Spent with Patient Time: Total time spent is greater than 50% in coordination of care (as documented) at patient's floor/unit and/or counseling patient: Total time spent with greater than 50% in coordination of care (as documented) at patient's floor/unit and/or counseling patient: less than 15 minutes
[2025-03-26] MEDS: ADACEL DIPH,PERTUSS(ACELL),TET VAC/PF 0.5 ML ADULT SYRINGE IM (17:39)
== END 2025-03-26 19:59 | disposition home or self-care (01) | DRG 807 ==
PROVIDERS: Admitting Provider Obstetrics & Gynecology; PCP Family Medicine; Visit Provider Obstetrics & Gynecology
DX: O70.1 Second degree perineal laceration during delivery (principal); Z37.0 Single live birth; Z3A.38 38 weeks gestation of pregnancy; Z85.820 Personal history of malignant melanoma of skin; Z23 Encounter for immunization
CPT/HCPCS: 36415; 59025; 59050; 59410; 80307; 81001; 85025; 85027; 86850; 86900; 86901; 90715

== ENCOUNTER 2025-03-28 07:56 | Outpatient (OUT) | payer BC, SELFPAY ==
--- NOTE | 2025-03-28 10:43 | PC.NURSE ---
AilynMorales and 4 day old Grace arrive for follow up appointment. Parents states are doing well, tired, but expected. Mom states he is still not latching and feeding. We are giving 5-8ml of pumped milk by syringe, every 2 hours Reports 5 wet diapers, small but noticeable and 1 dark stool size of quarter this AM. Ailyn with VSS and assessment WNL. Only complaint is stitches are slightly bothersome, itchy and irritable. Using water bottle, tucks and Dermoplast spray as needed. Denies cramping with pumping or nursing. Has offered infant breast with each feeding, early this AM, latched for 10 minutes for feed but has not latched well before or since. Grace with VSS and assessment WNL. Transcutaneous bili is 14.0. Parents have follow up with PCP 03/29/2025 scheduled for infant. Baby rooting on hands and fussy. To Breast, Ailyn has good positioning, and hold for latch. Baby roots, finds nipple and stops. Encouraged to suck with expression of milk into mouth, infant just waits and looks at mom. Infant is 38 weeks with behaviors of LPI noted. Discussed with parents and verbalized understanding. Shield discussed and reason for use with LPI and mild tongue tie. Mom agreeable. Shield placement demo given and encouraged to latch with expression of milk into shield tip. Same behaviors noted and with 3rd attempt, infant begins to suck. Suck is disorganized and slow. Improves to bursts with pauses, audible swallows noted. remained at the breast for 12 min then released latch on own. Plan includes, bringing infant to breast every 2-3 hours, use shield if not latching, being aware of proper shield placement, allow infant to end feeding, and top off with 15 ml of pumped milk via syringe. Parents view plan as workable. Will continue to pump to stimulate supply and will return 03/30/2025 for further support. Family aware to call for concerns and to keep scheduled appointment with PCP's. Leaves ambulatory.
[2025-03-28 10:44] VITALS: BP 126/72; PULSE 90; TEMP 36.8; O2SAT 98
== END 2025-03-28 11:05 | disposition home or self-care (01) ==
LOC: FBCO 08:01
PROVIDERS: PCP Family Medicine; Visit Provider Obstetrics & Gynecology
DX: Z39.1 Encounter for care and examination of lactating mother (principal)

== ENCOUNTER 2025-03-30 11:40 | Outpatient (OUT) | payer BC, SELFPAY | END 2025-03-30 11:42 | disposition home or self-care (01) | LOC: FBCO 11:40 | PROVIDERS: PCP Family Medicine; Visit Provider Obstetrics & Gynecology | DX: Z39.1 Encounter for care and examination of lactating mother (principal) | CPT/HCPCS: G0463 ==

== ENCOUNTER 2025-04-05 07:37 | Outpatient (OUT) | payer BC, SELFPAY | END 2025-04-05 07:38 | disposition home or self-care (01) | PROVIDERS: PCP Family Medicine; Visit Provider Obstetrics & Gynecology | DX: Z39.1 Encounter for care and examination of lactating mother (principal) | CPT/HCPCS: G0463 ==

== ENCOUNTER 2025-04-10 08:53 | Outpatient (OUT) | payer BC, SELFPAY ==
--- NOTE | 2025-04-10 11:30 | PC.NURSE ---
Pt states baby was seen by Dr Lopez after last visit. Dr called Dr Gordon for expedited evaluation of tongue tie as unable to see Dr Robledo until 05/01/2025. PCP pleased with feeding plan and encouraged pt to continue until after visit with pediatric dentist. Weight is up to 7-1 today. Mom pleased with progress. Will call for next visit after evaluation of lip and tongue tie and planned revision. Ailyn positive and willing to continue breast feeding through difficulties. Home ambulatory with baby.
== END 2025-04-10 11:42 | disposition home or self-care (01) ==
LOC: FBCO 08:55
PROVIDERS: PCP Family Medicine; Visit Provider Obstetrics & Gynecology
DX: Z39.1 Encounter for care and examination of lactating mother (principal)

== ENCOUNTER 2025-04-18 08:10 | Outpatient (OUT) | payer BC, SELFPAY ==
--- OUTSIDE RECORDS SUMMARY | 2025-03-22 14:24 | XMS_ITS ---
Author Name Auto Generated Organization OHIP Care Team Providers Care Tonnage Compilation Clerk Name Role Phone CRUZ JOHNSON Attending Unavailable ELIZABETH, CRUZ Attending Unavailable ELIZABETH, CRUZ Attending Unavailable CED FRAGOSO Attending Unavailable ELIZABETH, CRUZ Attending Unavailable ELIZABETH, CRUZ Attending Unavailable ELIZABETH, CRUZ Attending Unavailable ZELDA WAGNER Attending Unavailable ELIZABETH, CRUZ Attending Unavailable ELIZABETH, CRUZ Attending Unavailable ELIZABETH, CRUZ Attending Unavailable ELIZABETH, CRUZ Attending Unavailable PROBLEMS No Problem Records Found PROCEDURES No Procedure Records Found RESULTS No Result Records Found ALLERGIES No Allergies Records Found ENCOUNTERS ADMIT/DISCHARGE ACCOUNT NUMBER ADMITTING ENCOUNTER CLASS LOCATION SOURCE 03/22/2025/ [id number] Ambulatory Building:[facility] OB [facility] EPIC 03/15/2025/ 5 [id number] Ambulatory Building:[facility] OB [facility] EPIC 03/08/2025/ 5 [id number] Ambulatory Building:N[facility] S BCP OB [facility] EPIC 02/21/2025/ 5 [id number] Ambulatory Building:NOM S BCP OB [facility] EPIC 02/09/2025/ 5 [id number] Ambulatory Building:N[facility] S [facility]CP OB [facility] EPIC 01/25/2025/ 5 [id number] Ambulatory Building:N[facility] S [facility]CP OB [facility] EPIC 01/11/2025/ 5 [id number] Ambulatory Building:N[facility] S [facility]CP OB [facility] EPIC 12/28/2024/ 5 [id number] Ambulatory Building:N[facility] S [facility]CP OB [facility] EPIC 11/28/2024/ 5 [id number] Ambulatory Building:N[facility] S [facility] OB [facility] EPIC 10/24/2024/ 4 [id number] Ambulatory Building:NOM S BCP OB [facility] EPIC 10/11/2024/ 4 [id number] Ambulatory Building:C[facility] FAMMED [facility] EPIC 09/26/2024/ 4 [id number] Ambulatory Building:[facility] OB [facility] EPIC 08/26/2024/ 4 [id number] Ambulatory Building:N[facility] S [facility] OB [facility] EPIC PAYERS ENCOUNTER GUARANTOR PAYER SUBSCRIBER SOURCE 03/22/2025 BRADY VELIZB: [place], [place] [address]Wvj: () Primary Insurance:[facility] licy Number: [id number] ctive Date:2024-11-23 MAURA BARONDOB: [id number] [place] [id number] [facility] EPIC 03/15/2025 BRADY VELIZB: [place], [place] [address]Gav: (HP) Primary Insurance:BCBSPo licy Number: [id number] ctive Date:2024-11-23 MAURA OWENTEADDOB: [id number] [facility] EPIC 03/08/2025 BRADY Nava ANSTEADDOB: [place], [place] [address]Asp: (HP) Primary Insurance:BCBSPo licy Number: [id number] ctive Date:2024-11-23 MAURA ANSTEADDOB: [id number] [address] [facility] EPIC 02/21/2025 BRADY Nava ANSTEADDOB: [place], [place] [address]Ved: (HP) Primary Insurance:BCBSPo licy Number: [id number] ctive Date:2024-11-23 MAURA ANSTEADDOB: [id number] [address] [facility] EPIC 02/09/2025 BRADY Nava ANSTEADDOB: [place], [place] [address]Usk: (HP) Primary Insurance:BCBSPo licy Number: [id number] ctive Date:2024-11-23 MAURA ANSTEADDOB: [id number] [address] [facility] EPIC 01/25/2025 BRADY Nava ANSTEADDOB: [place], [place] [address]Jvl: (HP) Primary Insurance:BCBSPo licy Number: [id number] ctive Date:2024-11-23 MAURA ANSTEADDOB: [id number] [address] [facility] EPIC 01/11/2025 BRADY OWENTEADDOB: [place], [place] [address]Pdt: (HP) Primary Insurance:BCBSPo licy Number: [id number] ctive Date:2024-11-23 SAADGREGORY OWENTEADDOB: [id number] [place] [id number] [facility] EPIC 12/28/2024 BRADY L ANSTEADDOB: [place], [place] [address]Pzt: (HP) Primary Insurance:BCBSPo licy Number: [id number] ctive Date:2024-11-23 MAURA BRAYDENTHAIDOB: [id number] [place] [id number] [facility] EPIC 11/28/2024 BRADYSHANA OWENTEADDOB: [place], [place] [address]Gsp: (HP) Primary Insurance:BCBSPo licy Number: [id number] ctive Date:2024-11-23 CECILLEGIANCARLO OWENTHAIDOB: [id number] [place] [id number] [facility] EPIC 10/24/2024 BRADY OWENTEADDOB: [place] [phone]: (HP) Primary Insurance:BCBSPo licy Number: [id number] ctive Date:2022-11-04 CECILLEGIANCARLO OWENTEADDOB: [id number] [place] [id number] [facility] EPIC 10/11/2024 BRADY L ANSTEADDOB: [address] [address]Hrl: (HP) Primary Insurance:BCBSPo licy Number: [id number] ctive Date:2022-11-04 MAURA BRAYDENTHAIDOB: [id number] [place] [id number] [facility] EPIC 09/26/2024 BRADY Nava BRAYDENTHAIDOB: [address] [address]Vep: (HP) Primary Insurance:BCBSPo licy Number: [id number] ctive Date:2022-11-04 [facility]ENTERGREGORY OWENTHAIDOB: [id number] [place] [id number] [facility] EPIC 08/26/2024 BRADY BARONDOB: [address] [address]Cky: (HP) Primary Insurance:BCBSPo licy Number: [id number] ctive Date:2022-11-04 [facility]: [id number] [place] [id number] [facility] EPIC
--- OUTSIDE RECORDS SUMMARY | 2025-04-18 08:41 | XMS_ITS | Encounter Summary ---
Author Organization [facility] Address [address] [place] [address] Care Team Providers Care Gas Meter Repair Supervisor Name Role Phone Mike Putnam MD Primary Care Provider [phone] Mike Putnam MD Primary Care Provider [phone] Shaikh KUSUM Melendrez Unavailable [phone] Melissa Zhou NP Unavailable [phone] Encounter Details Date Type Department Care Team (Late st Contact Info) Description 06/16/2023 Abstract [facility] [address] [place] [address] Amanda Gonzalez PA [address] [place], [place] [id number] Social History Tobacco Use Types Packs/Day Years Used Date Smoking Tobacco: Never Smokeless Tobacco: Never Alcohol Use Standard Drinks/Week Comments Never 0 (1 standard drink = 0.6 oz pur e alcohol) Comments Yes Sex and Gender Information Value Date Recorded Sex Assigned at Not on file Legal Sex Female 11:40 PM EDT Gender Identity Female 05/20/2023 9:38 AM EDT Sexual Orientation Not on file COVID-19 Exposure Response Date Recorded In the last 10 days, have yo u been in contact with someone who was confirmed or suspected to have Coronavirus/COVID-19? No / Unsure 2023 4:22 PM EDT documented as of this encounter Plan of Treatment Upcoming Encounters Date Type Department Care Team (Late st Contact Info) Description 05/03/2025 2:40 PM EDT Visit [facility] [address] [place] [id number] Delvis Meraz DO [address] [address] documented as of this encounter Visit Diagnoses Not on filedocumented in this encounter Care Teams Gas Meter Repair Supervisor Relationship Specialty Start Date End Date Mike Putnam MD PCP - General Cardiology 04/14/23 02/08/24 Mike Putnam MD [address] [place] [phone] PCP - General Family Medicine 02/09/24 Shaikh Melendrez MD [address] [place] [phone] PCP - [employer] 08/23/23 Melissa Zhou NP [address] [place] [address] PCP - [employer] 08/23/2411/22 documented as of this encounter
--- OUTSIDE RECORDS SUMMARY | 2025-04-18 08:41 | XMS_ITS | Encounter Summary ---
Author Organization [facility] Address [address] [place] [address] Care Team Providers Care Clin Asst Name Role Phone Mike Putnam MD Primary Care Provider [phone] Encounter Details Date Type Department Care Team (Late st Contact Info) Description 03/06/2025 [facility] [address] [place] [address] Delvis Meraz, DO [address] [address] Social History Tobacco Use Types Packs/Day Years Used Date Smoking Tobacco: Never Smokeless Tobacco: Never Alcohol Use Standard Drinks/Week Comments Not Currently 0 (1 standard drink = 0.6 oz pur e alcohol) Social Connection and Isolat ion Panel [NHANES] Answer Date Recorded In a typical week, how many times do you talk on the phone with family, friends, or neighbors? More than three times a week 02/22/2024 How often do you get togethe r with friends or relatives? Twice a week 02/22/2024 How often do you attend chur ch or confucianism services? More than 4 times per year 02/22/2024 Do you belong to any clubs o r organizations such as amish groups, unions, fraternal or athletic groups, or school groups? No 02/22/2024 How often do you attend meet ings of the clubs or organizations you belong to? Patient declined 02/22/2024 Are you , , di vorced, , never , or living with a partner? 02/22/2024 AUDIT-C Answer Date Recorded Q1: How often do you have a drink containing alc ohol? Monthly or less 02/22/2024 Q2: How many drinks containi ng alcohol do you have on a typical day when you are drinking? 1 or 2 02/22/2024 Q3: How often do you have si x or more drinks on one occasion? Never 02/22/2024 Overall Financial Resource Strain (CARDIA) Answe r Date Recorded How hard is it for you to pa y for the very basics like food, housing, medical care, and heating? Not hard at all 02/22/2024 PHQ-2 Answer Date Recorded Patient Health Questionnaire-2 Score 0 02/22/2024 [facility] - Occupational Stress Questionnaire Answer Date Recorded Do you feel stress - tense, restless, nervous, or anxious, or unable to sleep at night because your mind is troubled all the time - these days? Not at all 02/22/2024 Exercise Vital Sign Answer Date Recorde d On average, how many days pe r week do you engage in moderate to strenuous exercise (like a brisk walk)? 3 days 02/22/2024 On average, how many minutes do you engage in exercise at this level? 20 min 02/22/2024 Hunger Vital Sign Answer Date Recorded Within the past 12 months, y ou worried that your food would run out before you got the money to buy more. Never true 02/22/20 24 Within the past 12 months, t he food you bought just didn't last and you didn't have money to get more. Never true 02/22/2024 PRAPARE - Transportation Answer Date Re corded In the past 12 months, has l ack of transportation kept you from medical appointments or from getting medications? No 11/2023 In the past 12 months, has l ack of transportation kept you from meetings, work, or from getting things needed for daily living? No 02/22/2024 Housing Stability Vital Sign Answer Steffen e Recorded In the last 12 months, was t here a time when you were not able to pay the mortgage or rent on time? No 02/22/2024 In the last 12 months, how many places have you lived? 1 02/22/2024 In the last 12 months, was t here a time when you did not have a steady place to sleep or slept in a residential (including now)? No 02/22/2024 Comments Yes Sex and Gender Information Value Date Recorded Sex Assigned at Not on file Legal Sex Female 11:40 PM EDT Gender Identity Female 05/20/2023 9:38 AM EDT Sexual Orientation Not on file documented as of this encounter Plan of Treatment Upcoming Encounters Date Type Department Care Team (Late st Contact Info) Description 05/03/2025 2:40 PM EDT Visit [facility] [address] [place] [address] Delvis Meraz, DO [address] [address] documented as of this encounter Visit Diagnoses Not on filedocumented in this encounter Care Teams Clin Asst Relationship Specialty Start Date End Date Mike Putnam MD [address] [place] [address] PCP - General Family Medicine 02/09/24 documented as of this encounter
--- OUTSIDE RECORDS SUMMARY | 2025-04-18 08:41 | XMS_ITS | Encounter Summary ---
Author Organization [facility] Address [address] [facility] [place] [address] Care Team Providers Care Molder Operator Name Role Phone Mike Putnam MD Primary Care Provider [phone] Melissa Zhou NP Unavailable [phone] Encounter Details Date Type Department Care Team (Late st Contact Info) Description 09/29/2024 Abstract [facility] [address] [place] [address] Delvis Meraz, DO [address] [place], [place] [id number] Social History Tobacco Use Types Packs/Day Years [...] often do you attend chur ch or amish services? More than 4 times per year 02/22/2024 Do you belong to any clubs o r organizations such as restorationism groups, unions, fraternal or athletic groups, or [...] Recorded Patient Health Questionnaire-2 Score 0 02/22/2024 [facility] of Occupat ional Health - Occupational Stress Questionnaire Answer Date Recorded [...] place to sleep or slept in a jail (including now)? No 02/22/2024 Comments Yes Sex [...] PM EDT Visit [facility] [address] [place] [phone] Delvis Meraz DO [address] [address] documented as of this encounter Visit Diagnoses Not on filedocumented in this encounter Care Teams Molder Operator Relationship Specialty Start Date End Date Mike Putnam MD [address] [place] [phone] PCP - General Family Medicine 02/09/24 Melissa Zhou NP [address] [place] [phone] PCP - [employer] 08/23/2411/22 documented as of this encounter
--- OUTSIDE RECORDS SUMMARY | 2025-04-18 08:41 | XMS_ITS | Encounter Summary ---
Author Organization [facility] Address [address] [facility] [place] [address] Care Team Providers Care Postpartum Nurse Name Role Phone Mike Putnam MD Primary Care Provider [phone] Melissa Zhou NP Unavailable [phone] Encounter Details Date Type Department Care Team (Late st Contact Info) Description 09/19/2024 Abstract [facility] [address] [place] [address] Delvis Meraz, DO [address] [place], [place] [id number] Social History Tobacco Use Types Packs/Day Years [...] often do you attend chur ch or tenriism services? More than 4 times per year 02/22/2024 Do you belong to any clubs o r organizations such as orthodoxy groups, unions, fraternal [...] Recorded Patient Health Questionnaire-2 Score 0 02/22/2024 [facility] ional [facility] - Occupational Stress [...] place to sleep or slept in a long term (including now)? No 02/22/2024 Comments Yes Sex [...] PM EDT Visit [facility] [address] [place] [address] Delvis Meraz DO [address] [address] documented as of this encounter Visit Diagnoses Not on filedocumented in this encounter Care Teams Postpartum Nurse Relationship Specialty Start Date End Date Mike Putnam MD [address] [place] [phone] PCP - General Family Medicine 02/09/24 Melissa Zhou NP [address] [place] [address] PCP - [employer] 08/23/2411/22 documented as of this encounter
--- OUTSIDE RECORDS SUMMARY | 2025-04-18 08:41 | XMS_ITS | Encounter Summary ---
Author Organization [facility] Address [address] [facility] [place] [address] Care Team Providers Care Air Tank Assembler Name Role Phone Mike Putnam MD Primary Care Provider [phone] Melissa Zhou NP Unavailable [phone] Encounter Details Date Type Department Care Team (Late st Contact Info) Description 11/18/2024 Clinisync Result Encounter [facility] External Department Unsolicited Provider, Generic External Data Social History Tobacco Use Types Packs/Day Years [...] week 02/22/2024 How often do you attend [facility] or rastafari services? More than 4 times per year 02/22/2024 Do you belong to any clubs o r organizations such as buddhist groups, unions, fraternal or athletic groups, or [...] Recorded Patient Health Questionnaire-2 Score 0 02/22/2024 [facility] - Occupational Stress [...] place to sleep or slept in a senior living (including now)? No 02/22/2024 Comments Yes Sex and Gender Information Value Date Recorded Sex Assigned at Not on file Legal Sex Female 11:40 PM EDT Gender Identity Female 05/20/2023 9:38 AM EDT Sexual Orientation Not on file documented as of this encounter Plan of Treatment Upcoming Encounters Date Type Department Care Team (Late st Contact Info) Description 05/03/2025 2:40 PM EDT Visit [facility] OB [address] [place] [address] Cruz Meraz DO [address] [place] [address] [address] [address] documented as of this encounter Procedures Procedure Name Priority Date/Time Associated Diagnosis Comments US OB ANATOMY 11/18/2024 4:11 PM EST documented in this encounter Results * US OB ANATOMY (11/18/2024 4:11 PM EST) Anatomical Region Laterality Modality Other 11/18/2024 4:11 PM EST Narrative 11/18/2024 4:14 PM EST The [address] [address] Ultrasound Report Signed Patient: BRADY RESENDIZ MR#: [id number] : 1995 Acct:[id number] Age/Sex: 29 / F ADM Date: 11/18/24 Loc: US Attending Dr: Cruz Meraz D.O. Ordering Physician: Cruz Meraz D.O. Date of Service: 11/18/24 Procedure(s): US OB anatomy Accession Number(s): [id number] cc: Cruz Meraz D.O.; Mike Putnam M.D. The [address] [address] Patient Name: BRADY RESENDIZ MRN: [id number] date: 1995 Sex: F Assigned Patient Location: US Current Patient Location: US Accession/Order Number: [id number] Exam Date: 11/18/2024 09:23 Report Date: 11/18/2024 16:11 At the request of: CRUZ MERAZ Procedure: US OB anatomy EXAMINATION: US OB anatomy, US OB cervical length HISTORY: SCREENING, , FOR ANATOMIC SURVEY Z36.89 COMPARISON: Ultrasound OB transvaginal 08/26/2024 TECHNIQUE: Transabdominal sonographic examination was performed for obstetrical and evaluation. FINDINGS: Number: 1 Heart Rate: 127.96 bpm Amniotic Fluid Volume: Subjectively normal Placental Location: POSTERIOR with lower margin 3.3 cm from os. Cervix Length: 6.02 cm , closed. ANATOMY: Normal Structures -cerebellum, choroid plexus, cisterna magna, lateral cerebral ventricles, orbits, midline falx, hard palate, four-chamber heart, RVOT, LVOT, stomach, kidneys, bladder, umbilical cord insertion into abdomen, three-vessel cord, cervical spine, thoracic spine, lumbar spine, sacral spine, right upper extremity, left upper extremity, right lower extremity, left lower extremity. SUBOPTIMALLY SEEN: None ABNORMALITIES: 5 mm hyperechoic debris versus structure within stomach. BIOMETRY: BPD: 4.74 cm; 20 weeks 2 days; 57.70 % HC: 17.95 cm; 20 weeks 3 days; 53.60 % AC: 14.92 cm; 20 weeks 1 day; 45.20 % FL: 3.21 cm; 20 weeks 0 days; 36.90 % EFW:334.20 g; 44.60 % FL/AC: 21.52 FL/BPD: 67.77 HC/AC: 1.20 GESTATIONAL AGE: Age by EDC: 20 weeks 1 day Age by current US: 20 weeks 2 days ELIE by current US: 2025-04-05 ELIE by EDC: 2025-04-06 US/US OB anatomy IMPRESSION: 1. Single live intrauterine with growth detailed above. 2. Small hyperechoic structure versus debris within stomach; nonspecific. Consider follow-up. Electronically authenticated by: VAMSI CONTRERAS Date: 11/18/2024 16:11 Dictated By: Vamsi Contreras M.D. Signed By: 11/18/241613 DD/ 10 TD/TT: Field Checker: Procedure Note Radiology, Radiologist, - 11/18/[address] [address] Ultrasound Report Signed Patient: BRADY RESENDIZ LMR#: [id number] : 1995Acct:[id number] Age/Sex: 29 / FADM Date: 11/18/24 Loc: US Attending Dr: Cruz Meraz D.O. Ordering Physician: Cruz Meraz D.O. Date of Service: 11/18/24 Procedure(s): US OB anatomy Accession Number(s): [id number] cc: Cruz Meraz D.O.; Mike Putnam M.D. The [address] [address] Patient Name: BRADY RESENDIZ MRN: [id number] date: 1995 Sex: F Assigned Patient Location: US Current Patient Location: US Accession/Order Number: [id number] Exam Date: 11/18/2024 09:23 Report Date: 11/18/2024 16:11 At the request of: CRUZ MERAZ Procedure: US OB anatomy EXAMINATION: US OB anatomy, US OB cervical length HISTORY: SCREENING, , FOR ANATOMIC SURVEY Z36.89 COMPARISON: Ultrasound OB transvaginal 08/26/2024 TECHNIQUE: Transabdominal sonographic examination was performed for obstetrical and evaluation. FINDINGS: Number: 1 Heart Rate: 127.96 bpm Amniotic Fluid Volume: Subjectively normal Placental Location: POSTERIOR with lower margin 3.3 cm from os. Cervix Length: 6.02 cm , closed. ANATOMY: Normal Structures -cerebellum, choroid plexus, cisterna magna, lateral cerebral ventricles, orbits, midline falx, hard palate, four-chamberheart, RVOT, LVOT, stomach, kidneys, bladder, umbilical cord insertion intoabdomen, three-vessel cord, cervical spine, thoracic spine, lumbar spine, sacralspine, right upper extremity, left upper extremity, right lower extremity, leftlower extremity. SUBOPTIMALLY SEEN: None ABNORMALITIES: 5 mm hyperechoic debris versus structure within stomach. BIOMETRY: BPD: 4.74 cm; 20 weeks 2 days; 57.70 % HC: 17.95 cm; 20 weeks 3 days; 53.60 % AC: 14.92 cm; 20 weeks 1 day; 45.20 % FL: 3.21 cm; 20 weeks 0 days; 36.90 % EFW:334.20 g; 44.60 % FL/AC: 21.52 FL/BPD: 67.77 HC/AC: 1.20 GESTATIONAL AGE: Age by EDC: 20 weeks 1 day Age by current US: 20 weeks 2 days ELIE by current US: 2025-04-05 ELIE by EDC: 2025-04-06 US/US OB anatomy IMPRESSION: 1. Single live intrauterine with growth detailed above. 2. Small hyperechoic structure versus debris within stomach; nonspecific. Consider follow-up. Electronically authenticated by: VAMSI CONTRERAS Date: 11/18/2024 16:11 Dictated By: Vamsi Contreras M.D. Signed By:11/18/241613 DD/ 10 TD/TT: Field Checker: us Generic External Data Provider [facility] Final Result documented in this encounter Visit Diagnoses Not on filedocumented in this encounter Care Teams Air Tank Assembler Relationship Specialty Start Date End Date Mike Putnam MD [address] [place] [address] PCP - General Family Medicine 02/09/24 Melissa Zhou NP [address] [place] [address] PCP - [employer] 08/23/2411/22 documented as of this encounter
--- OUTSIDE RECORDS SUMMARY | 2025-04-18 08:41 | XMS_ITS | Encounter Summary ---
Author Organization [facility] Address [address] [place] [address] Care Team Providers Care Cremator Name Role Phone Mike Putnam MD Primary Care Provider [phone] Mike Putnam MD Primary Care Provider +-39 Shaikh KUSUM Melendrez Unavailable [phone] Melissa Zhou NP Unavailable [phone] Encounter Details Date Type Department Care Team (Late st Contact Info) Description 09/09/2023 Clinisync Result Encounter [facility] External Department Unsolicited Cruz Meraz, DO [address] [place] [address] Social History Tobacco Use Types Packs/Day Years [...] suspected to have Coronavirus/COVID-19? No / Unsure 09/08/2023 8:47 AM EDT documented as of this encounter Plan of Treatment Upcoming Encounters Date Type Department Care Team (Late st Contact Info) Description 05/03/2025 2:40 PM EDT Visit [facility] OB [address] [place] [address] Cruz Meraz, DO [address] [facility] [address] [address] documented as of this encounter Procedures Procedure Name Priority Date/Time Associated Diagnosis Comments US OB CERVICAL LENGTH 09/09/2023 7:03 PM EDT documented in this encounter Results * US OB CERVICAL LENGTH (09/09/2023 7:03 PM EDT) Anatomical Region Laterality Modality Other 09/09/2023 7:03 PM EDT Narrative 09/09/2023 7:03 PM EDT [address] [address] Ultrasound Report Signed Patient: BRADY RESENDIZ MR#: [id number] : 1995 Acct:[id number] Age/Sex: 28 / F ADM Date: 09/09/23 Loc: [facility] 250- Attending Dr: Cruz Meraz D.O. Ordering Physician: Cruz Meraz D.O. Date of Service: 09/09/23 Procedure(s): US OB cervical length Accession Number(s): [id number] cc: Cruz Meraz D.O.; Mike Putnam M.D. [address] [address] Patient Name: BRADY RESENDIZ MRN: [id number] date: 1995 Sex: F Assigned Patient Location: [facility] Current Patient Location: [facility] Accession/Order Number: [id number] Exam Date: 09/09/2023 17:50 Report Date: 09/09/2023 19:03 At the request of: CRUZ MERAZ Procedure: US OB cervical length EXAM: US PELVIS: OB CERVICAL LENGTH HISTORY: 28 year old G1 female with a 33 week 5 day presents for US evaluation of her cervix. TECHNIQUE: Ultrasound performed of the pelvis using static images with francisco scale, M-mode and color doppler. This exam is performed in the emergency room setting to evaluate viability. As such, it is not protocoled to evaluate anatomy as that should be performed on an outpatient basis at the patient's [employer] office. COMPARISON: None. FINDINGS: heart: 122 bpm. Presentation: Cephalic Cervix: Cervical length: 2.0 cm. With funneling During the initial scan the cervix measured 3.4 cm. However, the cervix started 2 frontal and reached a length of only 2 cm with 1.3 cm with funneling. The cervix then returned to 2.3 cm after a few minutes and during Valsalva the cervix measured 2.7 cm. US/US OB cervical length IMPRESSION: Funneling is seen during the exam with a shortened cervix measuring 2 cm. Findings: Spoke with RN Josette Neville at 7:02 pm. She states the the OB is also aware Electronically authenticated by: APURVA MARTINEZ Date: 09/09/2023 19:03 Dictated By: Apurva Martinez M.D. Signed By: 09/09/231904 DD/ 02 TD/TT: Raker Buffing Wheel: Procedure Note Radiology, Radiologist, MD - 09/10/2023 [place] [address] Ultrasound Report Signed Patient: BRADY RESENDIZ LMR#: [id number] : 1995Acct:[id number] Age/Sex: 28 / FADM Date: 09/09/23 Loc: [facility] 250-[address]: Cruz Meraz D.O. Ordering Physician: Cruz Meraz D.O. Date of Service: 09/09/23 Procedure(s): US OB cervical length Accession Number(s): [id number] cc: Cruz Meraz D.O.; Mike Putnam M.D. The [place] [id number] Patient Name: BRADY RESENDIZ MRN: [id number] date: 1995 Sex: F Assigned Patient Location: [facility] Current Patient Location: [facility] Accession/Order Number: [id number] Exam Date: 09/09/2023 17:50 Report Date: 09/09/2023 19:03 At the request of: CRUZ MERAZ Procedure: US OB cervical length EXAM: US PELVIS: OB CERVICAL LENGTH HISTORY: 28 year old G1 female with a 33 week 5 day presents forUS evaluation of her cervix. TECHNIQUE: Ultrasound performed of the pelvis using static images with francisco scale,M-mode and color doppler. This exam is performed in the emergency room setting to evaluate viability. As such, it is not protocoled to evaluate anatomy as that should be performed on an outpatient basis at the patient's [employer] office. COMPARISON: None. FINDINGS: heart: 122 bpm. Presentation: Cephalic Cervix: Cervical length: 2.0 cm. With funneling During the initial scan the cervix measured 3.4 cm. However, the cervix started 2 frontal and reached a length of only 2 cm with 1.3 cm with funneling.The cervix then returned to 2.3 cm after a few minutes and during Valsalva the cervix measured 2.7 cm. US/US OB cervical length IMPRESSION: Funneling is seen during the exam with a shortened cervix measuring 2 cm. Findings: Spoke with RN Josette Neville at 7:02 pm. She states the the OBis also aware Electronically authenticated by: APURVA MARTINEZ Date: 09/09/2023 19:03 Dictated By: Apurva Martinez M.D. Signed By:09/09/231904 DD/ 02 TD/TT: Raker Buffing Wheel: us Cruz Meraz DO [facility] Final Result documented in this encounter Visit Diagnoses Not on filedocumented in this encounter Care Teams Cremator Relationship Specialty Start Date End Date Mike Putnam MD PCP - General Cardiology 04/14/23 02/08/24 Mike Putnam MD [address] [place] [address] PCP - General Family Medicine 02/09/24 Shaikh Melendrez MD [address] [place] [address] PCP - [place] [employer] 08/23/23 Melissa Zhou NP [address] [place] [address] PCP - [place] [employer] 08/23/2411/22 documented as of this encounter
--- OUTSIDE RECORDS SUMMARY | 2025-04-18 08:41 | XMS_ITS | Encounter Summary ---
Author Organization [facility] Address [address] [place] [address] Phone Care Team Providers Care Safe Deposit Clerk Name Role Phone Unavailable Primary Care Provider Unavailabl e Encounter Details Date Type Department Care Team (Late st Contact Info) Description 08/19/2023 Scanned Document [facility] [address] [place] [place] [address] Conversion, Onbase Social History Tobacco Use Types Packs/Day Years Used Date Smoking Tobacco: Never Assessed Comments Unknown Sex and Gender Information Value Date Recorded Sex Assigned at Not on file Legal Sex Female 11:37 AM EST Gender Identity Not on file Sexual Orientation Not on file documented as of this encounter Plan of Treatment Not on file documented as of this encounter Visit Diagnoses Not on filedocumented in this encounter
--- OUTSIDE RECORDS SUMMARY | 2025-04-18 08:41 | XMS_ITS | Encounter Summary ---
Author Organization [facility] Address [address] [place] [address] Care Team Providers Care Health Care Marketing Manager Name Role Phone Mike Putnam MD Primary Care Provider +[phone] Mike Putnam MD Primary Care Provider +-37 Shaikh KUSUM Melendrez Unavailable [phone] Melissa Zhou NP Unavailable [phone] Encounter Details Date Type Department Care Team (Late st Contact Info) Description 09/03/2023 Clinisync Result Encounter [facility] External Department Unsolicited Cruz Meraz, DO [address] [place] [address] Social History Tobacco Use Types Packs/Day Years [...] suspected to have Coronavirus/COVID-19? No / Unsure 08/27/2023 7:38 PM EDT documented as of this encounter Plan of Treatment Upcoming Encounters Date Type Department Care Team (Late st Contact Info) Description 05/03/2025 2:40 PM EDT Visit [facility] OB [address] [place] [address] Cruz Meraz, DO [address] [facility] [address] [address] documented as of this encounter Procedures Procedure Name Priority Date/Time Associated Diagnosis Comments US OB BPP W NON-STRESS 09/03/2023 3:58 PM EDT documented in this encounter Results * US OB BPP W NON-STRESS (09/03/2023 3:58 PM EDT) Anatomical Region Laterality Modality Other 09/03/2023 3:58 PM EDT Narrative 09/03/2023 3:58 PM EDT [address] [address] Ultrasound Report Signed Patient: BRADY RESENDIZ MR#: [id number] : 1995 Acct:[id number] Age/Sex: 28 / F ADM Date: 09/02/23 Loc: US Attending Dr: Cruz Meraz D.O. Ordering Physician: Cruz Meraz D.O. Date of Service: 09/02/23 Procedure(s): US OB BPP w non-stress Accession Number(s): [id number] cc: Cruz Meraz D.O.; Mike Putnam M.D. The [address] [address] Patient Name: BRADY RESENDIZ MRN: [id number] date: 1995 Sex: F Assigned Patient Location: US Current Patient Location: US Accession/Order Number: [id number] Exam Date: 09/02/2023 16:56 Report Date: 09/03/2023 15:58 At the request of: CRUZ MERAZ Procedure: US OB BPP w non-stress EXAMINATION: US OB BPP w non-stress HISTORY: EXCESSIVE GROWTH 036.60X0 COMPARISON: Ultrasound OB growth 08/15/2023 TECHNIQUE: Ultrasound biophysical profile was performed in the radiology department. BREATHING MOVEMENTS: 2 GROSS BODY MOVEMENTS: 2 TONE: 2 QUALITATIVE AMNIOTIC FLUID VOLUME: 2 PRESENTATION: CEPHALIC HEART RATE: 128.6 bpm bpm. AMNIOTIC FLUID VOLUME: 13.8 cm GESTATIONAL AGE: 32 weeks 5 days CONCLUSION: Total biophysical profile score 8. Electronically authenticated by: VAMSI CONTRERAS Date: 09/03/2023 15:58 Dictated By: Vamsi Contreras M.D. Signed By: 09/03/23 1600 DD/ 1558 TD/TT: Balancer: [place] [address] Ultrasound Report Signed Patient: BRADY RESENDIZ MR#: [id number] : 1995 Acct:[id number] Age/Sex: 28 / F ADM Date: 09/02/23 Loc: US Attending Dr: Cruz Meraz D.O. Ordering Physician: Cruz Meraz D.O. Date of Service: 09/02/23 Procedure(s): US OB BPP w non-stress Accession Number(s): [id number] cc: Cruz Meraz D.O.; Mike Putnam M.D. [place] [address] Patient Name: BRADY RESENDIZ MRN: [id number] date: 1995 Sex: F Assigned Patient Location: Current Patient Location: US Accession/Order Number: [id number] Exam Date: 09/02/2023 16:56 Report Date: 09/03/2023 15:58 At the request of: CRUZ MERAZ Procedure: US OB BPP w non-stress EXAMINATION: US OB BPP w non-stress HISTORY: EXCESSIVE GROWTH 036.60X0 COMPARISON: Ultrasound OB growth 08/15/2023 TECHNIQUE: Ultrasound biophysical profile was performed in the radiology department. BREATHING MOVEMENTS: 2 GROSS BODY MOVEMENTS: 2 TONE: 2 QUALITATIVE AMNIOTIC FLUID VOLUME: 2 PRESENTATION: CEPHALIC HEART RATE: 128.6 bpm bpm. AMNIOTIC FLUID VOLUME: 13.8 cm GESTATIONAL AGE: 32 weeks 5 days CONCLUSION: Total biophysical profile score 8. Electronically authenticated by: VAMSI CONTRERAS Date: 09/03/2023 15:58 Dictated By: Vamsi Contreras M.D. Signed By: 09/03/231599 DD/ 57 TD/TT: Balancer: Procedure Note Radiology, Radiologist, - 09/07/2023 [place] [address] Ultrasound Report Signed Patient: BRADY RESENDIZ LMR#: [id number] : 1995Acct:[id number] Age/Sex: 28 / FADM Date: 09/02/23 Loc: US Attending Dr: Cruz Meraz D.O. Ordering Physician: Cruz Meraz D.O. Date of Service: 09/02/23 Procedure(s): US OB BPP w non-stress Accession Number(s): [id number] cc: Cruz Meraz D.O.; Mike Putnam M.D. The [place] [address] Patient Name: BRADY RESENDIZ MRN: [id number] date: 1995 Sex: F Assigned Patient Location: US Current Patient Location: US Accession/Order Number: [id number] Exam Date: 09/02/2023 16:56 Report Date: 09/03/2023 15:58 At the request of: CRUZ MERAZ Procedure: US OB BPP w non-stress EXAMINATION: US OB BPP w non-stress HISTORY: EXCESSIVE GROWTH 036.60X0 COMPARISON: Ultrasound OB growth 08/15/2023 TECHNIQUE: Ultrasound biophysical profile was performed in the radiology department. BREATHING MOVEMENTS: 2 GROSS BODY MOVEMENTS: 2 TONE: 2 QUALITATIVE AMNIOTIC FLUID VOLUME: 2 PRESENTATION: CEPHALIC HEART RATE: 128.6 bpm bpm. AMNIOTIC FLUID VOLUME: 13.8 cm GESTATIONAL AGE: 32 weeks 5 days CONCLUSION: Total biophysical profile score 8. Electronically authenticated by: VAMSI CONTRERAS Date: 09/03/2023 15:58 Dictated By: Vamsi Contreras M.D. Signed By:09/03/231599 DD/ 57 TD/TT: Balancer: [place] [address] Ultrasound Report Signed Patient: BRADY RESENDIZ LMR#: [id number] : 1995Acct:[id number] Age/Sex: 28 / FADM Date: 09/02/23 Loc: US Attending Dr: Cruz Meraz D.O. Ordering Physician: Cruz Meraz D.O. Date of Service: 09/02/23 Procedure(s): US OB BPP w non-stress Accession Number(s): [id number] cc: Cruz Meraz D.O.; Mike Putnam M.D. [place] [id number] Patient Name: BRADY RESENDIZ MRN: [id number] date: 1995 Sex: F Assigned Patient Location: US Current Patient Location: US Accession/Order Number: [id number] Exam Date: 09/02/2023 16:56 Report Date: 09/03/2023 15:58 At the request of: CRUZ MERAZ Procedure: US OB BPP w non-stress EXAMINATION: US OB BPP w non-stress HISTORY: EXCESSIVE GROWTH 036.60X0 COMPARISON: Ultrasound OB growth 08/15/2023 TECHNIQUE: Ultrasound biophysical profile was performed in the radiology department. BREATHING MOVEMENTS: 2 GROSS BODY MOVEMENTS: 2 TONE: 2 QUALITATIVE AMNIOTIC FLUID VOLUME: 2 PRESENTATION: CEPHALIC HEART RATE: 128.6 bpm bpm. AMNIOTIC FLUID VOLUME: 13.8 cm GESTATIONAL AGE: 32 weeks 5 days CONCLUSION: Total biophysical profile score 8. Electronically authenticated by: VAMSI CONTRERAS Date: 09/03/2023 15:58 Dictated By: Vamsi Contreras M.D. Signed By:09/03/231599 DD/ 1558 TD/TT: Balancer: us Cruz Meraz DO [facility] Final Result documented in this encounter Visit Diagnoses Not on filedocumented in this encounter Care Teams Health Care Marketing Manager Relationship Specialty Start Date End Date Mike Putnam MD [phone] (work) PCP - General Cardiology 04/14/23 02/08/24 Mike Putnam MD [address] [place] [address] PCP - General Family Medicine 02/09/24 Shaikh Melendrez MD [address] [place] [address] PCP - [place] [employer] 08/23/23 Melissa Zhou NP [address] [place] [address] PCP - [employer] 08/23/2411/22 documented as of this encounter
--- OUTSIDE RECORDS SUMMARY | 2025-04-18 08:41 | XMS_ITS | Encounter Summary ---
Author Organization [facility] Address [address] [place] [address] Care Team Providers Care Homicide Squad Lieutenant Name Role Phone Mike Putnam MD Primary Care Provider +[phone] Mike Putnam MD Primary Care Provider +-78 Shaikh KUSUM Melendrez Unavailable [phone] Melissa Zhou NP Unavailable [phone] Encounter Details Date Type Department Care Team (Late st Contact Info) Description 04/10/2023 Abstract [facility] OB [address] [place] [address] Delvis Meraz DO [address] [place], [place] [address] Social History Tobacco Use Types Packs/Day Years Used Date Smoking Tobacco: Never Smokeless Tobacco: Never Tobacco Cessation:Counseling Given: Not Answered Alcohol Use Standard Drinks/Week Comments Never 0 (1 standard drink = 0.6 oz pur e alcohol) Comments Unknown Sex and Gender Information Value Date Recorded Sex Assigned at Not on file Legal Sex Female 11:40 PM EDT Gender Identity Female 05/20/2023 9:38 AM EDT Sexual Orientation Not on file documented as of this encounter Plan of Treatment Upcoming Encounters Date Type Department Care Team (Late st Contact Info) Description 05/03/2025 2:40 PM EDT Visit [facility] OB [address] [place] [address] Kt, Delvis, DO [address] [place] [address] documented as of this encounter Visit Diagnoses Not on filedocumented in this encounter Care Teams Homicide Squad Lieutenant Relationship Specialty Start Date End Date Mike Putnam MD PCP - General Cardiology 04/14/23 02/08/24 Mike Putnam MD [address] [place] [address] PCP - General Family Medicine 02/09/24 Shaikh Melendrez MD [address] [place] [address] PCP - [employer] [place] [employer] 08/23/23 Melissa Zhou NP [address] [place] [address] PCP - [facility] [place] [employer] 08/23/2411/22 documented as of this encounter
--- OUTSIDE RECORDS SUMMARY | 2025-04-18 08:41 | XMS_ITS | Encounter Summary ---
Author Organization [facility] Address [address] [place] [address] Care Team Providers Care Book Agent Name Role Phone Mike Putnam MD Primary Care Provider [phone] Melissa Zhou NP Unavailable [phone] Encounter Details Date Type Department Care Team (Late st Contact Info) Description 11/18/2024 Clinisync Result Encounter [facility] External Department Unsolicited Cruz Meraz, DO [address] [address] Social History Tobacco Use Types Packs/Day Years [...] often do you attend chur ch or sikh services? More than 4 times per year 02/22/2024 Do you belong to any clubs o r organizations such as anabaptism groups, unions, fraternal or athletic groups, or [...] Recorded Patient Health Questionnaire-2 Score 0 02/22/2024 [facility] - Occupational [...] to sleep or slept in a senior care (including now)? No 02/22/2024 Comments Yes Sex [...] PM EDT Visit [facility] [address] [place] [id number] Cruz Meraz, [address] [facility] [address] [address] documented as of this encounter Procedures Procedure Name Priority Date/Time Associated Diagnosis Comments US OB CERVICAL LENGTH 11/18/2024 4:11 PM EST documented in this encounter Results * US OB CERVICAL LENGTH (11/18/2024 4:11 PM EST) Anatomical Region Laterality Modality Other 11/18/2024 4:11 PM EST Narrative 11/18/2024 4:13 [place] [address] Ultrasound Report Signed Patient: BRADY RESENDIZ MR#: [id number] : 1995 Acct:[id number] Age/Sex: 29 / F ADM Date: 11/18/24 Loc: US Attending Dr: Cruz Meraz D.O. Ordering Physician: Cruz Meraz D.O. Date of Service: 11/18/24 Procedure(s): US OB cervical length Accession Number(s): [id number] cc: Cruz Meraz D.O.; Mike Putnam M.D. The [address] [address] Patient Name: BRADY RESENDIZ MRN: [id number] date: 1995 Sex: F Assigned Patient Location: US Current Patient Location: Accession/Order Number: [id number] Exam Date: 11/18/2024 09:23 Report Date: 11/18/2024 16:11 At the request of: CRUZ MERAZ Procedure: US OB cervical length EXAMINATION: US OB anatomy, US OB cervical [...] 2025-04-05 ELIE by EDC: 2025-04-06 US/US OB cervical length IMPRESSION: 1. Single live intrauterine with growth detailed above. 2. Small hyperechoic structure versus debris within stomach; nonspecific. Consider follow-up. Electronically authenticated by: VAMSI CONTRERAS Date: 11/18/2024 16:11 Dictated By: Vamsi Contreras M.D. Signed By: 11/18/241612 DD/ 1611 TD/TT: Roofing Layer: Procedure Note Radiology, Radiologist, MD - 11/18/2024 [place] [address] Ultrasound Report Signed Patient: BRADY RESENDIZ LMR#: [id number] : 1995Acct:[id number] Age/Sex: 29 / FADM Date: 11/18/24 Loc: US Attending Dr: Cruz Meraz D.O. Ordering Physician: Cruz Meraz D.O. Date of Service: 11/18/24 Procedure(s): US OB cervical length Accession Number(s): [id number] cc: Cruz Meraz D.O.; Mike Putnam M.D. The [place] [id number] Patient Name: BRADY RESENDIZ MRN: [id number] date: 1995 Sex: F Assigned Patient Location: US Current Patient Location: US Accession/Order Number: [id number] Exam Date: 11/18/2024 09:23 Report Date: 11/18/2024 16:11 At the request of: CRUZ MERAZ Procedure: US OB cervical length EXAMINATION: US OB anatomy, US OB cervical [...] 2025-04-05 ELIE by EDC: 2025-04-06 US/US OB cervical length IMPRESSION: 1. Single live intrauterine with growth detailed above. 2. Small hyperechoic structure versus debris within stomach; nonspecific. Consider follow-up. Electronically authenticated by: VAMSI CONTRERAS Date: 11/18/2024 16:11 Dictated By: Vamsi Contreras M.D. Signed By:11/18/241612 DD/ 10 TD/TT: Roofing Layer: us Cruz Kt DO [facility] Final Result documented in this encounter Visit Diagnoses Not on filedocumented in this encounter Care Teams Book Agent Relationship Specialty Start Date End Date Mike Putnam MD [address] [place] [address] PCP - General Family Medicine 02/09/24 Melissa Zhou NP [address] [place] [address] PCP - [employer] 08/23/2411/22 documented as of this encounter
--- OUTSIDE RECORDS SUMMARY | 2025-04-18 08:41 | XMS_ITS | Encounter Summary ---
Author Organization [facility] Address [address] [place] [address] Care Team Providers Care Sawmill Relief Worker Name Role Phone Mike Putnam MD Primary Care Provider [phone] Encounter Details Date Type Department Care Team (Late st Contact Info) Description 03/26/2025 Abstract [facility] OB [address] [place] [address] Kaley Ivory, CNM [address] [place], [place] [id number] Social History Tobacco Use Types Packs/Day Years [...] 02/22/2024 How often do you attend chur or christianity services? More than 4 times per year 02/22/2024 Do you belong to any clubs o r organizations such as methodist groups, unions, fraternal or athletic groups, or [...] Recorded Patient Health Questionnaire-2 Score 0 02/22/2024 [facility] - Occupational Stress Questionnaire Answer Date Recorded [...] place to sleep or slept in a intermediate (including now)? No 02/22/2024 Comments Yes Sex [...] PM EDT Visit [facility] [address] [address] Delvis Meraz, [address] [facility] [address] [address] documented as of this encounter Visit Diagnoses Not on filedocumented in this encounter Care Teams Sawmill Relief Worker Relationship Specialty Start Date End Date Mike Putnam MD [address] [place] [address] PCP - General Family Medicine 02/09/24 documented as of this encounter
--- OUTSIDE RECORDS SUMMARY | 2025-04-18 08:41 | XMS_ITS | Encounter Summary ---
Author Organization [facility] Address [address] [facility] [place] [address] Care Team Providers Care Flight Attendant/Inflight Supervisor Name Role Phone Mike Putnam MD Primary Care Provider [phone] Melissa Zhou NP Unavailable [phone] Encounter Details Date Type Department Care Team (Late st Contact Info) Description 08/26/2024 Abstract [facility] [address] [place] [address] Delvis Meraz, DO [address] [facility] [address] [place], [place] [id number] Social History Tobacco Use Types Packs/Day Years [...] often do you attend chur ch or yarsanism services? More than 4 times per year 02/22/2024 Do you belong to any clubs o r organizations such as alevism groups, unions, fraternal or athletic groups, or [...] Recorded Patient Health Questionnaire-2 Score 0 02/22/2024 [facility] - Occupational Stress [...] PM EDT Visit [facility] [address] [facility] [place] [phone] Delvis Meraz DO [address] [facility] [address] [address] documented as of this encounter Visit Diagnoses Not on filedocumented in this encounter Care Teams Flight Attendant/Inflight Supervisor Relationship Specialty Start Date End Date Mike Putnam MD [address] [place] [address] PCP - General Family Medicine 02/09/24 Melissa Zhou NP [address] [place] [address] PCP - Brian [employer] 08/23/2411/22 documented as of this encounter
--- OUTSIDE RECORDS SUMMARY | 2025-04-18 08:41 | XMS_ITS | Clinical Summary ---
Author Organization [facility] Address [address] [place] [address] Care Team Providers Care Bottom Cager Name Role Phone Mike Putnam MD Primary Care Provider [phone] Allergies No known active allergies Medications magnesium oxide (Mag-Ox) 400 mg tablet 400 mg Daily Active MV-Min-Fe Fum-FA-DHA ( 1 PO) Take by mouth Active Active Problems Problem Noted Date Diagnosed Date Second trimester 10/11/2024 Acute non-recurrent pansinusitis 10/11/2024 Assessment & Plan (10/11/2024 3:07 PM EST): Take antibiotics BID for 10 days. Use [...] no better or worse call for re-evaluation. Anemia 04/14/2023 Cervical polyp 04/14/2023 Gynecological disease 04/14/2023 Malignant melanoma of right lower limb, includin g hip 04/14/2023 Assessment & Plan (10/11/2024 3:09 PM EST): Follow with specialists Other specified noninflammatory disorders of vag ephraim 04/14/2023 Solitary pulmonary nodule 04/14/2023 Resolved Problems Problem Noted Date Diagnosed Date Resolved Date LPRD (laryngopharyngeal reflux disease) 02/22/2024 10/11/2024 Non-recurrent acute suppurat yobany otitis media of right ear without spontaneous rupture of tympanic membrane 02/22/2024 10/11/2024 Assessment & Plan (02/22/2024 12:03 PM EDT): Fluid likely from allergies and tonsillitis Acute tonsillitis due to oth er specified organisms 02/22/2024 10/11/2024 Assessment & Plan (02/22/2024 12:03 PM EDT): Warm salt water gargles, tylenol prn discomfort Finish atb, fu if not resolved Menstrual disorder 04/14/2023 Missed menses 04/14/2023 10/11/2024 Encounters Date Type Department Care Team Description 03/27/2025 Patient Outreach [facility] [place] [address] [place] [address] Amanda Grace LPN 03/26/2025 Abstract [facility] [address] [place] [address] Kaley Ivory CNM 03/25/2025 Clinisync Result Encounter [facility]OM[facility] External Department Unsolicited Cruz Meraz, 03/24/2025 Clinisync Result Encounter NOMS External Department Unsolicited Cruz Meraz, DO 03/23/2025 Travel 03/22/2025 2:20 PM EDT Routine [facility] [address] [place] [address] Cruz Meraz, DO 37 weeks gestation of ; Third trimester 03/22/2025 Clinisync Result Encounter NOM[facility] External Department Unsolicited Provider, Generic External Data 03/22/2025 Orders Only [facility] [address] [place] [address] Cruz Meraz, DO 03/22/2025 Bamboo flowsheet [facility] [address] [place] [address] Cruz Meraz, DO 03/16/2025 Clinisync Result Encounter NOMS External Department Unsolicited Provider, Generic External Data 03/15/2025 2:00 PM EDT Routine [facility] OB [address] [place] [address] [place] [address] Cruz Meraz, DO Third trimester ; 36 weeks gestation of 03/15/2025 Travel 03/15/2025 Bamboo flowsheet [facility] OB [address] [place] [address] [place] [address] Cruz Meraz, DO 03/08/2025 1:40 PM EDT Routine [facility] OB [address] [place] [address] [place] [address] Cruz Meraz, DO Third trimester ; 35 weeks gestation of ; Pyelectasis of fetus on ultrasound 03/08/2025 Clinisync Result Encounter NOMS External Department Unsolicited Cruz Meraz, DO 03/08/2025 Travel 03/08/2025 Bamboo flowsheet [facility] OB [address] [place] [address] [place] [address] Cruz Meraz, DO 03/06/2025 Clinisync Result Encounter NOMS External Department Unsolicited Provider, Generic External Data 03/06/2025 Abstract [facility] OB [address] [place] [address] [place] [address] Cruz Meraz, DO 03/01/2025 Travel 02/21/2025 10:40 AM EDT Routine [facility] [address] [place] [address] [place] [address] Cruz Meraz, DO Third trimester ; 33 weeks gestation of ; Abnormal finding on ultrasound 02/21/2025 Bamboo flowsheet [facility] OB [address] [place] [address] [place] [address] Cruz Meraz, DO 02/14/2025 Travel 02/10/2025 Clinisync Result Encounter NOMS External Department Unsolicited Provider, Generic External Data 02/09/2025 10:20 AM EDT Routine [facility] [address] [facility] [address] [address] [place] [address] Amanda Gonzalez PA 32 weeks gestation of ; Third trimester 02/09/2025 Bamboo flowsheet [facility] [address] [place] [address] Amanda Gonzalez PA 02/02/2025 Travel 01/25/2025 11:00 AM EST Routine [facility] [address] [address] [place] [address] Cruz Meraz DO 29 weeks gestation of ; Third trimester ; Low hemoglobin 01/25/2025 Bamboo flowsheet [facility] [address] [place] [address] Cruz Meraz DO from Last 3 Months Family History Medical History Relation Name Comments Heart disease Father Celio Hypertension Father Celio Diabetes Maternal Grandfather Jorge Heart disease Maternal Grandfather Jorge Hypertension Maternal Grandfather Jorge Cancer Maternal Grandmother Ale Diabetes Paternal Grandfather Bill Heart disease Paternal Grandfather Bill Relation Name Status Comments Brother 1 Alive Brother 2 Alive Father Celio Alive Maternal Grandfather Jorge Maternal Grandmother Ale Mother Alive Paternal Grandfather Bill Social History Tobacco Use Types Packs/Day Years Used Date Smoking Tobacco: Never Smokeless Tobacco: Never Tobacco Cessation:Counseling Given: Not Answered Alcohol Use Standard Drinks/Week Comments Not Currently [...] often do you attend chur ch or mandaen services? More than 4 times per year [...] Recorded Patient Health Questionnaire-2 Score 0 02/22/2024 [facility] Occupat ional Health - Occupational Stress [...] place to sleep or slept in a custodial (including now)? No 02/22/2024 Comments No Sex and Gender Information Value Date Recorded Sex Assigned at Not on file Legal Sex Female 11:40 PM EDT Gender Identity Female 05/20/2023 9:38 AM EDT Sexual Orientation Not on file Last Filed Vital Signs Vital Sign Reading Time Taken Comments Blood Pressure 120/74 03/22/2025 3:00 PM EDT Pulse 106 10/11/2024 2:39 PM EST Temperature 36.4 C (97.5 F) 10/11/2024 2:39 PM EST Respiratory Rate 22 10/11/2024 2:39 PM EST Oxygen Saturation 99% 10/11/2024 2:39 PM EST Inhaled Oxygen Concentration - - Weight 82.9 kg (182 lb 12.8 oz) 03/22/2025 3:00 PM EDT Height 175.3 cm (5' 9 ) 10/11/2024 2:39 PM EST Body Mass Index 26.99 10/11/2024 2:39 PM EST Plan of Treatment Upcoming Encounters Date Type Department Care Team (Late st Contact Info) Description 05/03/2025 2:40 PM EDT Visit [facility] [address] [place] [address] Cruz Meraz, DO [address] [facility] [address] [place], [place] [id number] Health Maintenance Due Date Last Done Comments Influenza Vaccine (Season Ended) 2025 07/09/20 18, 08/20/2017 Procedures Procedure Name Priority Date/Time Associated Diagnosis Comments ALL CBC WITH AUTO DIFF Routine 03/25/2025 6:10 AM EDT HM[facility] CBC WITH PLATELET NO DIFFERENTIAL Routine 03/24/2025 7:30 PM EDT TBH DRUG SCREEN RAPID (URINE) Routine 03/24/2025 4:00 PM EDT TBH URINE MICROSCOPIC ONLY Routine 03/24/2025 4:00 PM EDT TBH UA (CLEAN/CATCH) AUTOMATIC MOUNTER/MICRO IF IND. Routine 03/24/2025 4:00 PM EDT US OB SCAN FOR GROWTH Routine 03/22/2025 5:33 PM EDT US OB BPP W NON-STRESS 03/22/2025 4:51 PM EDT POCT URINALYSIS DIPSTICK Routine 03/22/2025 3:03 PM EDT 37 weeks gestation of Third trimester US OB BPP W NON-STRESS 03/16/2025 1:01 PM EDT POCT URINALYSIS DIPSTICK Routine 03/15/2025 2:28 PM EDT Third trimester US OB BPP W NON-STRESS 03/08/2025 4:24 PM EDT POCT URINALYSIS DIPSTICK Routine 03/08/2025 2:16 PM EDT Third trimester 35 weeks gestation of STREP GP B CULTURE+RFLX Routine 03/08/2025 1:55 PM EDT US OB FOLLOW UP 03/06/2025 8:54 AM EDT POCT URINALYSIS DIPSTICK Routine 02/21/2025 11:02 AM EDT Third trimester ALL CBC WITH AUTO DIFF Routine 02/10/2025 3:45 PM EDT POCT URINALYSIS DIPSTICK Routine 02/09/2025 10:47 AM EDT 32 weeks gestation of Third trimester POCT URINALYSIS DIPSTICK Routine 01/25/2025 11:22 AM EST 29 weeks gestation of Third trimester from Last 3 Months Results * (ABNORMAL) ALL CBC WITH AUTO DIFF (03/25/2025 6:10 AM EDT) Only the most recent of2 resultswithin the time period is included. TBH WBC 14.5(H) 4.0 - 11.0 10 3/uL TBH TBH RBC 3.01(L) 4.20 - 5.40 10 6/uL TBH TBH HGB 8.2(L) 12.0 - 16.0 g/dL TBH TBH HCT 25.9(L) 36.0 - 48.0 % TBH TBH MCV 86.0 81.0 - 99.0 fL TBH TBH MCH 27.2 26.7 - 34.0 pg TBH TBH MCHC 31.7 29.9 - 35.2 g/dL TBH TBH RDW 13.9 11.0 - 15.0 % TBH TBH PLT 268 150 - 450 10 3/uL TBH TBH MPV 9.7 9.5 - 13.5 fL TBH NEUTROPHILS PERCENT AUTO 78.5(H) 43.0 - 75.0 % TBH LYMPHOCYTES PERCENT AUTO 13.4(L) 20.5 - 60.0 % TBH MONOCYTES PERCENT AUTO 6.7 1.7 - 12.0 % TBH TBH EO % 0.2(L) 0.9 - 7.0 % TBH BASOPHILS PERCENT AUTO 0.4 0.2 - 2.0 % TBH IMMATURE GRANULOCYTES PCT AUTO 0.8(H) 0.0 - 0.5 % TBH NEUTROPHILS ABSOLUTE AUTO 11.4(H) 1.4 - 6.5 10 3/uL TBH LYMPHOCYTES ABSOLUTE AUTO 1.9 1.2 - 3.8 10 3/uL TBH MONOCYTES ABSOLUTE AUTO 1.0(H) 0.3 - 0.8 10 3/uL TBH TBH EO # 0.0 0.0 - 0.7 10 3/uL TBH BASOPHILS ABSOLUTE AUTO 0.1 0.0 - 0.1 10 3/uL TBH IMMATURE GRANULOCYTES ABS AUTO 0.12(H) 0.00 - 0.03 10 3/uL TBH 03/25/2025 6:10 AM EDT 03/25/2025 6:16 AM EDT Narrative CLINISYNC - 03/25/2025 6:25 AM EDT Cruz Kt DO CLINISYNC Final Result Performing Organization Address City/[facility]/ZIP Co de Phone Number CLINISYNC TBH * (ABNORMAL) HP CBC WITH PLATELET NO DIFFERENTIAL (03/24/2025 7:30 PM EDT) TB WBC 11.7(H) 4.0 - 11.0 10 3/uL TBH TBH RBC 3.70(L) 4.20 - 5.40 10 6/uL TBH TBH HGB 10.1(L) 12.0 - 16.0 g/dL TBH TBH HCT 31.7(L) 36.0 - 48.0 % TBH TBH MCV 85.7 81.0 - 99.0 fL TBH TBH MCH 27.3 26.7 - 34.0 pg TBH TBH MCHC 31.9 29.9 - 35.2 g/dL TBH TBH RDW 14.0 11.0 - 15.0 % TBH TBH PLT 287 150 - 450 10 3/uL TBH TBH MPV 9.5 9.5 - 13.5 fL TBH 03/24/2025 7:30 PM EDT 03/24/2025 7:51 PM EDT Narrative CLINISYNC - 03/24/2025 8:03 PM EDT Cruz Kt DO CLINISYNC Final Result CLINISYNC TBH * (ABNORMAL) TBH URINE MICROSCOPIC ONLY (03/24/2025 4:00 PM EDT) TBH WBC 0-2(A) NONE SEEN #/HPF TBH TBH RBC NONE SEEN 0 - 2 #/HPF TBH BACTERIA URINE TRACE(A) NONE SEEN #/HPF TBH MUCUS URINE NONE SEEN NONE SEEN TBH SQUAMOUS EPITHELIAL CELL URINE NONE SEEN NONE/RARE #/LPF TBH CRYSTALS SEEN? None Seen None Seen #/HPF TBH CAST SEEN? NONE SEEN NONE SEEN #/LPF TBH URINE CULTURE INDICATED NO TBH 03/24/2025 4:00 PM EDT 03/24/2025 4:40 PM EDT Narrative CLINISYNC - 03/24/2025 5:05 PM EDT Cruz Kt DO CLINISYNC Final Result Performing Organization Address [facility]/ZIP Co de Phone Number CLINISYNC TBH * (ABNORMAL) TBH UA (CLEAN/CATCH) AUTOMATIC MOUNTER/MICRO IF IND. (03/24/2025 4:00 PM EDT) COLOR URINE LT. YELLOW YELLOW TBH CLARITY URINE CLEAR CLEAR TBH SPECIFIC GRAVITY URINE <=1.005(A) 1.005 - 1.025 TBH PH URINE 7.0 5.0 - 9.0 TBH PROTEIN URINE NEGATIVE NEG/TRACE mg/dL TBH GLUCOSE URINE UA NEGATIVE NEGATIVE mg/dL TBH BILIRUBIN URINE NEGATIVE NEGATIVE TBH KETONES URINE NEGATIVE NEGATIVE mg/dL TBH BLOOD URINE NEGATIVE NEGATIVE TBH NITRITE URINE NEGATIVE NEGATIVE TBH UROBILINOGEN URINE 0.2 0.2 - 1.0 EU/dL TBH LEUKOCYTE ESTERASE URINE TRACE(A) NEGATIVE TBH URINE MICROSCOPIC INDICATED YES TBH 03/24/2025 4:00 PM EDT 03/24/2025 4:40 PM EDT Narrative CLINISYNC - 03/24/2025 5:05 PM EDT us Cruz Kt DO CLINISYNC Final Result CLINISYNC TBH * TBH DRUG SCREEN RAPID (URINE) (03/24/2025 4:00 PM EDT) CANNABINOID SCREEN URINE NEGATIVE NEGATIVE TBH PHENCYCLIDINE SCREEN URINE NEGATIVE NEGATIVE TBH COCAINE SCREEN URINE NEGATIVE NEGATIVE TBH METHAMPHETAMINES SCREEN URINE NEGATIVE NEGATIVE TBH OPIATE SCREEN URINE NEGATIVE NEGATIVE TBH AMPHETAMINE SCREEN URINE NEGATIVE NEGATIVE TBH BENZODIAZEPINES SCREEN URINE NEGATIVE NEGATIVE TBH TRICYCLIC ANTIDEPRESSANT URINE NEGATIVE NEGATIVE TBH METHADONE SCREEN URINE NEGATIVE NEGATIVE TBH BARBITURATES SCREEN URINE NEGATIVE NEGATIVE TBH OXYCODONE SCREEN URINE NEGATIVE NEGATIVE TBH BUPRENORPHINE SCREEN URINE NEGATIVE NEGATIVE TBH Comment: DRUG CLASS TEST SYSTEM CUT-OFF CONCENTRATIONS ARE FOLLOWS: AMP (Amphetamine): 500 ng/mL BAR (Barbiturates): 200 ng/mL BZO (Benzodiazepines): 150 ng/mL BUP (Buprenorphine): 10 ng/mL NASRA (Cocaine): 150 ng/mL mAMP (Methamphetamine): 500 ng/mL MTD (Methadone): 200 ng/mL OPI (Opiates): 100 ng/mL OXY (Oxycodone): 100 ng/mL PCP (Phencyclidine): 25 ng/mL THC (Cannabinoids): 50 ng/mL TCA (Trycyclic Antidepressants): 300 ng/mL 03/24/2025 4:00 PM EDT 03/25/2025 9:15 AM EDT Narrative CLINISYNC - 03/25/2025 9:28 AM EDT us Cruz Meraz DO CLINISYNC Final Result CLINISYNC TBH * US OB SCAN FOR GROWTH (03/22/2025 5:33 PM EDT) Anatomical Region Laterality Modality Body Ultrasound us Cruz Meraz DO IMG OB US PROCEDURES Final Resul t * US OB BPP W NON-STRESS (03/22/2025 4:51 PM EDT) Only the most recent of3 resultswithin the time period is included. Anatomical Region Laterality Modality Other 03/22/2025 4:51 PM EDT Narrative 03/22/2025 4:53 [place] [address] Ultrasound Report Signed Patient: BRADY RESENDIZ MR#: [id number] : 1995 Acct:[id number] Age/Sex: 29 / F ADM Date: 03/22/25 Loc: [facility] 250-[address]: Cruz Meraz D.O. Ordering Physician: Cruz Meraz D.O. Date of Service: 03/22/25 Procedure(s): US OB BPP w non-stress Accession Number(s): [id number] cc: Cruz Meraz D.O.; Mike Putnam M.D. The [place] [address] Patient Name: BRADY RESENDIZ MRN: [id number] date: 1995 Sex: F Assigned Patient Location: US Current Patient Location: US Accession/Order Number: [id number] Exam Date: 03/22/2025 16:50 Report Date: 03/22/2025 16:51 At the request of: CRUZ MERAZ DO Procedure: US OB BPP w non-stress Biophysical profile. Reason for exam: Bilateral pelviectasis. COMPARISON: 03/15/2025 TECHNIQUE: Transabdominal imaging of the gravid uterus was obtained. FINDINGS: [employer] reports a BPP of 8 out of 8. heart rate 135 bpm. DEDRICK is normal at 19.9 cm. Incidental note is made of bilateral hydroceles involving the scrotum. Bilateral pelviectasis. US/US OB BPP w non-stress IMPRESSION: BPP 8 out of 8. Bilateral hydroceles involving the scrotum. Bilateral pelviectasis. Impression dictated by: Paresh Gilmore Jr., D.O. 03/22/2025 4:51 PM Dictation Location: [place] [address] Electronically authenticated by: [id number] Y Date: 03/22/2025 16:51 Dictated By: Paresh Gilmore M.D. Signed By: 03/22/251652 DD/ 50 TD/TT: Senior Manager Asset Protection: Procedure Note Radiology, Radiologist, - 03/23/2025 [place] [address] Ultrasound Report Signed Patient: BRADY RESENDIZ LMR#: [id number] : 1995Acct:[id number] Age/Sex: 29 / FADM Date: 03/22/25 Loc: [facility] [address]: Cruz Meraz D.O. Ordering Physician: Cruz Meraz D.O. Date of Service: 03/22/25 Procedure(s): US OB BPP w non-stress Accession Number(s): [id number] cc: Cruz Meraz D.O.; Mike Putnam M.D. [place] [address] Patient Name: BRADY RESENDIZ MRN: [id number] date: 1995 Sex: F Assigned Patient Location: US Current Patient Location: US Accession/Order Number: [id number] Exam Date: 03/22/2025 16:50 Report Date: 03/22/2025 16:51 At the request of: CRUZ MERAZ DO Procedure: US OB BPP w non-stress Biophysical profile. Reason for exam: Bilateral pelviectasis. COMPARISON: 03/15/2025 TECHNIQUE: Transabdominal imaging of the gravid uterus was obtained. FINDINGS: [employer] reports a BPP of 8 out of 8. heart rate 135bpm. DEDRICK is normal at 19.9 cm. Incidental note is made of bilateral hydroceles involving the scrotum. Bilateral pelviectasis. US/US OB BPP w non-stress IMPRESSION: BPP 8 out of 8. Bilateral hydroceles involving the scrotum. Bilateral pelviectasis. Impression dictated by: Paresh Gilmore Jr., D.O. 03/22/2025 4:51 PM Dictation Location: [place] [address] Electronically authenticated by: [id number] Y Date: 6:51 Dictated By: Paresh Gilmore M.D. Signed By:03/22/251652 DD/ 50 TD/TT: Senior Manager Asset Protection: us Generic External Data Provider CLINISYNC IMAGING Final Result * POCT urinalysis dipstick manually resulted (03/22/2025 3:03 PM EDT) Only the most recent of6 resultswithin the time period is included. Color, UA Yellow Clarity, UA Clear Glucose, UA Negative Negative - 2000(110) ++++ mg/dL Bilirubin, UA Negative Negative - 4(70) +++ mg/dL Ketones, UA Negative Negative - 160(16) ++++ mg/dL Spec Grav, UA 1.010 1 - 1.03 Blood, UA Negative Negative - 50 Naveed/mcL pH, UA 7.0 5 - 9 Protein, UA Negative Negative - 1999(20) ++++ mg/dL Urobilinogen, UA 0.2 0.2 - 12 mg/dL Leukocytes, UA Negative Negative - 500+++ José Luis/mcL Nitrite, UA Negative Negative - Positive Urine 03/22/2025 3:03 PM EDT us Cruz Meraz DO POINT OF CARE TEST ENTER/EDIT OR DERABLES Final Result * STREP GP B CULTURE+RFLX (03/08/2025 1:55 PM EDT) STREP GP B CULTURE+RFLX SEE SCANNED REPORT TB 03/08/2025 1:55 PM EDT 03/08/2025 9:42 PM EDT Narrative CLINISYNC - 03/16/2025 3:16 PM EDT us Cruz Meraz DO LAB BLOOD ORDERABLES Final Resul t [facility] * US OB FOLLOW UP (03/06/2025 8:54 AM EDT) Anatomical Region Laterality Modality Radiographic Camille ging 03/06/2025 8:54 AM EDT Narrative 03/06/2025 8:57 AM EDT [address] [address] Ultrasound Report Signed Patient: BRADY RESENDIZ MR#: [id number] : 1995 Acct:[id number] Age/Sex: 29 / F ADM Date: 03/04/25 Loc: US Attending Dr: Cruz Meraz D.O. Ordering Physician: Cruz Meraz D.O. Date of Service: 03/04/25 Procedure(s): US OB follow up Accession Number(s): [id number] cc: Cruz Meraz D.O.; Mike Putnam M.D. The [address] [address] Patient Name: BRADY RESENDIZ MRN: [id number] date: 1995 Sex: F Assigned Patient Location: US Current Patient Location: Accession/Order Number: [id number] Exam Date: 03/06/2025 08:50 Report Date: 03/06/2025 08:54 At the request of: CRUZ MERAZ DO Procedure: US OB follow up [...] Lorri Barros M.D.03/06/2025 8:54 AM Dictation Location: [place] [address] Electronically authenticated by: [id number] Y Date: 03/06/2025 08:54 Dictated By: Lorri Barros M.D. Signed By: 03/06/25 0857 DD/ 0854 TD/TT: Senior Manager Asset Protection: Procedure Note Radiology, Radiologist, - 03/06/2025 The [place] [id number] Ultrasound Report Signed Patient: BRADY RESENDIZ LMR#: [id number] : 1995Acct:[id number] Age/Sex: 29 / FADM Date: 03/04/25 Loc: US Attending Dr: Cruz Meraz D.O. Ordering Physician: Cruz Meraz D.O. Date of Service: 03/04/25 Procedure(s): US OB follow up Accession Number(s): [id number] cc: Cruz Meraz D.O.; Mike Putnam M.D. [address] [address] Patient Name: BRADY RESENDIZ MRN: [facility]:[id number] date: 1995 Sex: F Assigned Patient Location: US Current Patient Location: Accession/Order Number: [id number] Exam Date: 03/06/2025 08:50 Report Date: 03/06/2025 08:54 At the request of: CRUZ MERAZ DO Procedure: US OB follow up ULTRASOUND OB FOLLOW-UP COMPARISON: 12/15/2024 and 12/27/2024 CLINICAL DATA: Follow-up abnormalities on anatomy survey There is a single live intrauterine gestation in cephalic presentation.There is cardiac activity with heart rate of 138 bpm. Amniotic fluidvolume is subjectively normal. Both kidneys are visualized and there is stillbilateral pelviectasis. The stomach is visualized and shows no obvious abnormality. The intraluminal echoes seen previously are not identified today. US/US OB follow up IMPRESSION: CONTINUED BILATERAL PELVIECTASIS. NO RESIDUAL INTRALUMINAL ABNORMALITY IDENTIFIED WITHIN THE STOMACH. Impression dictated by: Lorri Barros M.D.03/06/2025 8:54 AM Dictation Location: [place] [address] Electronically authenticated by: [id number] Y Date: 508:54 Dictated By: Lorri Barros M.D. Signed By:03/06/25 0857 DD/ 0854 TD/TT: Senior Manager Asset Protection: us Generic External Data Provider IMG XR PROCEDURES Final Result from Last 3 Months Insurance Care Teams Bottom Cager Relationship Specialty Start Date End Date Mike Putnam MD [address] [place] [id number] PCP - General Family Medicine 02/09/24
--- OUTSIDE RECORDS SUMMARY | 2025-04-18 08:41 | XMS_ITS | Encounter Summary ---
Author Organization [facility] Address [address] [place] [address] Care Team Providers Care Combat Systems Officer Name Role Phone Mike Putnam MD Primary Care Provider +[phone] Mike Putnam MD Primary Care Provider +-28 Shaikh KUSUM Melendrez Unavailable [phone] Melissa Zhou NP Unavailable [phone] Encounter Details Date Type Department Care Team (Late st Contact Info) Description 08/16/2023 Clinisync Result Encounter [facility] External Department Unsolicited Cruz Meraz, DO [address] [place] [address] Social History Tobacco Use Types Packs/Day Years [...] suspected to have Coronavirus/COVID-19? No / Unsure 08/10/2023 9:36 AM EDT documented as of this encounter Plan of Treatment Upcoming Encounters Date Type Department Care Team (Late st Contact Info) Description 05/03/2025 2:40 PM EDT Visit [facility] OB [address] [place] [address] Cruz Meraz DO [address] [facility] [address] [place] [address] documented as of this encounter Procedures Procedure Name Priority Date/Time Associated Diagnosis Comments US OB GROWTH 08/16/2023 2:14 AM EDT documented in this encounter Results * US OB GROWTH (08/16/2023 2:14 AM EDT) Anatomical Region Laterality Modality Other 08/16/2023 2:14 AM EDT Narrative 08/16/2023 2:14 AM EDT [address] [address] Ultrasound Report Signed Patient: BRADY RESENDIZ MR#: [id number] : 1995 Acct:[id number] Age/Sex: 28 / F ADM Date: 08/15/23 Loc: US Attending Dr: Cruz Meraz D.O. Ordering Physician: Cruz Meraz D.O. Date of Service: 08/15/23 Procedure(s): US OB growth Accession Number(s): [id number] cc: Cruz Meraz D.O.; Mike Putnam M.D. [address] [address] Patient Name: BRADY RESENDIZ MRN: [id number] date: 1995 Sex: F Assigned Patient Location: US Current Patient Location: Accession/Order Number: [id number] Exam Date: 08/15/2023 10:00 Report Date: 08/16/2023 02:14 At the request of: CRUZ MERAZ Procedure: US OB growth EXAMINATION: US OB growth HISTORY: size inconsistent with dates O26.849 COMPARISON: Ultrasound OB anatomy 06/06/2023 FINDINGS: Heart Rate: 147 bpm Number: 1 Position: Cephalic Amniotic Fluid Volume: 14.5 cm; normal range Maximum Vertical Pocket: 4.7 cm BIOMETRY: BPD: 7.9 cm; 31 weeks 6 days; 85% HC: 28.5cm; 31 weeks 2 days; 46% AC: 29.3 cm; 33 weeks 2 days; >97% FL: 6.2 cm cm; 31 weeks 6 days; 82% EFW: 1998 g; >97% FL/AC: 20.96 FL/BPD: 77.62 HC/AC: 0.97 GESTATIONAL AGE: Age by EDC: 30 weeks 1 day ELIE by EDC: 10/23/2023 Age by US: 32 weeks 1 day ELIE by US: 10/09/2023 US/US OB growth IMPRESSION: 1. Single live intrauterine with growth detailed above. 2. Estimated weight is greater than 97th percentile. Electronically authenticated by: VAMSI CONTRERAS Date: 08/16/2023 02:14 Dictated By: Vamsi Contreras M.D. Signed By: 08/16/23216 DD/ 3 TD/TT: Acds Block 1 Operator: Procedure Note Radiology, Radiologist, MD - 08/16/2023 [place] [address] Ultrasound Report Signed Patient: BRADY RESENDIZ LMR#: [id number] : 1995Acct:[id number] Age/Sex: 28 / FADM Date: 08/15/23 Loc: US Attending Dr: Cruz Meraz D.O. Ordering Physician: Cruz Meraz D.O. Date of Service: 08/15/23 Procedure(s): US OB growth Accession Number(s): [id number] cc: Cruz Meraz D.O.; Mike Putnam M.D. The [address] [address] Patient Name: BRADY RESENDIZ MRN: [id number] date: 1995 Sex: F Assigned Patient Location: Current Patient Location: Accession/Order Number: [id number] Exam Date: 08/15/2023 10:00 Report Date: 08/16/2023 02:14 At the request of: CRUZ MERAZ Procedure: US OB growth EXAMINATION: US OB growth HISTORY: size inconsistent with dates O26.849 COMPARISON: Ultrasound OB anatomy 06/06/2023 FINDINGS: Heart Rate: 147 bpm Number: 1 Position: Cephalic Amniotic Fluid Volume: 14.5 cm; normal range Maximum Vertical Pocket: 4.7 cm BIOMETRY: BPD: 7.9 cm; 31 weeks 6 days; 85% HC: 28.5cm; 31 weeks 2 days; 46% AC: 29.3 cm; 33 weeks 2 days; >97% FL: 6.2 cm cm; 31 weeks 6 days; 82% EFW: 1998 g; >97% FL/AC: 20.96 FL/BPD: 77.62 HC/AC: 0.97 GESTATIONAL AGE: Age by EDC: 30 weeks 1 day ELIE by EDC: 10/23/2023 Age by US: 32 weeks 1 day ELIE by US: 10/09/2023 US/US OB growth IMPRESSION: 1. Single live intrauterine with growth detailed above. 2. Estimated weight is greater than 97th percentile. Electronically authenticated by: VAMSI CONTRERAS Date: 08/16/2023 02:14 Dictated By: Vamsi Contreras M.D. Signed By:08/16/23216 DD/ 3 TD/TT: Acds Block 1 Operator: us Cruz Meraz DO [facility] Final Result documented in this encounter Visit Diagnoses Not on filedocumented in this encounter Care Teams Combat Systems Officer Relationship Specialty Start Date End Date Mike Putnam MD PCP - General Cardiology 04/14/23 02/08/24 Mike Putnam MD [address] [place] [address] PCP - General Family Medicine 02/09/24 Shaikh Melendrez MD [address] [place] [address] PCP - [place] [employer] 08/23/23 Melissa Zhou NP [address] [place] [address] PCP - [place] [employer] 08/23/2411/22 documented as of this encounter
--- OUTSIDE RECORDS SUMMARY | 2025-04-18 08:41 | XMS_ITS | Encounter Summary ---
Author Organization [facility] Address [address] [facility] [place] [address] Care Team Providers Care Handbook Writer Name Role Phone Mike Putnam MD Primary Care Provider [phone] Encounter Details Date Type Department Care Team (Late st Contact Info) Description 12/15/2024 Clinisync Result Encounter [facility] External Department Unsolicited [...] week 02/22/2024 How often do you attend [facility] or amish services? More than 4 times [...] Recorded Patient Health Questionnaire-2 Score 0 02/22/2024 [facility] - Occupational Stress [...] PM EDT Visit [facility] B[facility] OB [address] [facility] [place] [address] Cruz Meraz DO [address] [place] [address] documented as of this encounter Procedures Procedure Name Priority Date/Time Associated Diagnosis Comments US OB INCOMPLETE ANATOMY 12/15/2024 11:59 AM EST documented in this encounter Results * US OB INCOMPLETE ANATOMY (12/15/2024 11:59 AM EST) Anatomical Region Laterality Modality Other 12/15/2024 11:5 9 AM EST Narrative 12/15/2024 12:01 [place] [address] Ultrasound Report Signed Patient: BRADY RESENDIZ MR#: [id number] : 1995 Acct:[id number] Age/Sex: 29 / F ADM Date: 12/15/24 Loc: US Attending Dr: Cruz Meraz D.O. Ordering Physician: Cruz Meraz D.O. Date of Service: 12/15/24 Procedure(s): US OB incomplete anatomy Accession Number(s): [id number] cc: Cruz Meraz D.O.; Mike Putnam M.D. [address] [address] Patient Name: BRADY RESENDIZ MRN: [id number] date: 1995 Sex: F Assigned Patient Location: US Current Patient Location: US Accession/Order Number: [id number] Exam Date: 12/15/2024 11:15 Report Date: 12/15/2024 11:59 At the request of: CRUZ MERAZ Procedure: US OB incomplete anatomy EXAM: US OB incomplete anatomy HISTORY: Encounter Follow Up Ultrasound Anatomy COMPARISON: TECHNIQUE: Transabdominal images FINDINGS: Asymmetric prominence of the right renal pelvis measuring 4.7 mm. Again demonstrated is 8 x 7.1 x 6.9 mm area of subtle hyperechogenicity within the gastric lumen , Nonspecific position: Cephalic presentation, longitudinal lie Placenta: Posterior Heart rate: 151 beats minute US/US OB incomplete anatomy IMPRESSION: 8 mm echogenic focus within the gastric lumen, stable and indeterminate Mild asymmetrically prominent right renal pelvis Electronically authenticated by: MELANIE CERVANTES Date: 12/15/2024 11:59 Dictated By: Melanie Cervantes M.D. Signed By: 12/15/24 1201 DD/ 1159 TD/TT: Manager Of Corporate: Procedure Note Radiology, Radiologist, MD - 12/15/2024 [place] [address] Ultrasound Report Signed Patient: BRADY RESENDIZ LMR#: [id number] : 1995Acct:[id number] Age/Sex: M Date: 12/15/24 Loc: US Attending Dr: Cruz Meraz D.O. Ordering Physician: Cruz Meraz D.O. Date of Service: 12/15/24 Procedure(s): US OB incomplete anatomy Accession Number(s): [id number] cc: Cruz Meraz D.O.; Mike Putnam M.D. The [place] [id number] Patient Name: BRADY RESENDIZ MRN: [id number] date: 1995 Sex: F Assigned Patient Location: US Current Patient Location: US Accession/Order Number: [id number] Exam Date: 12/15/2024 11:15 Report Date: 12/15/2024 11:59 At the request of: CRUZ MERAZ Procedure: US OB incomplete anatomy EXAM: US OB incomplete anatomy HISTORY: Encounter Follow Up Ultrasound Anatomy COMPARISON: TECHNIQUE: Transabdominal images FINDINGS: Asymmetric prominence of the right renal pelvis measuring 4.7 mm. Again demonstrated is 8 x 7.1 x 6.9 mm area of subtle hyperechogenicitywithin the gastric lumen , Nonspecific position: Cephalic presentation, longitudinal lie Placenta: Posterior Heart rate: 151 beats minute US/US OB incomplete anatomy IMPRESSION: 8 mm echogenic focus within the gastric lumen, stable and indeterminate Mild asymmetrically prominent right renal pelvis Electronically authenticated by: MELANIE CERVANTES Date: 12/15/2024 11:59 Dictated By: Melanie Cervantes M.D. Signed By:12/15/24 1201 DD/ 1159 TD/TT: Manager Of Corporate: us Generic External Data Provider [facility] Final Result documented in this encounter Visit Diagnoses Not on filedocumented in this encounter Care Teams Handbook Writer Relationship Specialty Start Date End Date Mike Putnam MD [address] [place] [address] PCP - General Family Medicine 02/09/24 documented as of this encounter
--- OUTSIDE RECORDS SUMMARY | 2025-04-18 08:41 | XMS_ITS | Encounter Summary ---
Author Organization [facility] Address [address] [place] [address] Care Team Providers Care Sustainability Communicator Name Role Phone Mike Putnam MD Primary Care Provider [phone] Encounter Details Date Type Department Care Team (Late st Contact Info) Description 03/22/2025 Orders Only [facility] [address] [address] Delvis Meraz, [address] [address] Social History Tobacco Use Types Packs/Day Years [...] often do you attend chur ch or latter day services? More than 4 times per year 02/22/2024 Do you belong to any clubs o r organizations such as denominational groups, unions, fraternal [...] Recorded Patient Health Questionnaire-2 Score 0 02/22/2024 [facility] - [...] place to sleep or slept in a longterm (including now)? No 02/22/2024 Comments Yes Sex [...] PM EDT Visit [facility] OB [address] [facility] [place] [address] Delvis Meraz, DO [address] [facility] [address] [address] documented as of this encounter Procedures Procedure Name Priority Date/Time Associated Diagnosis Comments US OB SCAN FOR GROWTH Routine 03/22/2025 5:33 PM EDT documented in this encounter Results * US OB SCAN FOR GROWTH (03/22/2025 5:33 PM EDT) Anatomical Region Laterality Modality Body Ultrasound us Delvis Meraz DO IMG OB US PROCEDURES Final Resul t documented in this encounter Visit Diagnoses Not on filedocumented in this encounter Care Teams Sustainability Communicator Relationship Specialty Start Date End Date Mike Putnam MD [address] [place] [address] PCP - General Family Medicine 02/09/24 documented as of this encounter
--- OUTSIDE RECORDS SUMMARY | 2025-04-18 08:41 | XMS_ITS | Clinical Summary ---
Author Organization [facility] Address [address] [place] [address] Phone Care Team Providers Care Gun Examiner Name Role Phone Unavailable Primary Care Provider Unavailabl e Social History Tobacco Use Types Packs/Day Years Used Date Smoking Tobacco: Never Assessed Comments Unknown Sex and Gender Information Value Date Recorded Sex Assigned at Not on file Legal Sex Female 11:37 AM EST Gender Identity Not on file Sexual Orientation Not on file Plan of Treatment Health Maintenance Due Date Last Done Comments HIV Screening 1995 Lipid Panel 1997 Yearly Adult Physical 1997 MMR Vaccines (1 of 1 - Stand reena series) 1998 Varicella Vaccines (1 of 2 - 13+ 2-dose series) 2010 Hepatitis C Screening 2015 Hepatitis B Vaccines (1 of 3 - 19+ 3-dose series) 2016 Cervical Cancer Screening 2018 HPV/Cotest 2018 Pap Smear 2018 DTaP/Tdap/Td Vaccines (1 - Tdap) 2019 COVID-19 Vaccine ( - 2023-2 5 season) 2024 Influenza Vaccine (Season Ended) 2025 Zoster Vaccines (1 of 2) 2047 HIB Vaccines Aged Out No longer eligi ble based on patient's age to complete this topic HPV Vaccines Aged Out No longer eligi ble based on patient's age to complete this topic Hepatitis A Vaccines Aged Out No long er eligible based on patient's age to complete this topic IPV Vaccines Aged Out No longer eligi ble based on patient's age to complete this topic Meningococcal Vaccine Aged Out No dustin sarah beth eligible based on patient's age to complete this topic Pneumococcal Vaccine: Pediat rics and At-Risk Adult Patients Aged Out No longer yamile gible based on patient's age to complete this topic Rotavirus Vaccines Aged Out No longer eligible based on patient's age to complete this topic
--- OUTSIDE RECORDS SUMMARY | 2025-04-18 08:41 | XMS_ITS | Encounter Summary ---
Author Organization [facility] Address [address] [place] [address] Care Team Providers Care Proofer Black And White Name Role Phone Mike Putnam MD Primary Care Provider [phone] Mike Putnam MD Primary Care Provider +[phone] Shaikh KUSUM Melendrez Unavailable [phone] Melissa Zhou NP Unavailable [phone] Encounter Details Date Type Department Care Team (Late st Contact Info) Description 08/17/2023 External Result Encounter [facility] External Department Unsolicited Amanda Rosario MD [address] [place] [address] Social History Tobacco Use Types Packs/Day Years [...] Description 05/03/2025 2:40 PM EDT Visit [facility] OB [address] [place] [address] Delvis Meraz [address] [address] documented as of this encounter Procedures Procedure Name Priority Date/Time Associated Diagnosis Comments US LOWER EXTREMITY NON-VASC RIGHT 08/17/2023 2:36 PM EDT documented in this encounter Results * US LOWER EXTREMITY NON-VASC RIGHT (08/17/2023 2:36 PM EDT) Anatomical Region Laterality Modality Right Ultrasound 08/17/2023 2:36 PM EDT Impressions 10/05/2023 11:01 AM EST Benign-appearing lymph nodes are noted in the right inguinal region without cortical thickening to suggest metastatic disease. Continued close clinical observation is recommended in Impression dictated by: Thony Lopes M.D.08/17/2023 2:39 PM Dictation Location: [place] [address] Tech: Rivka Hindsley Transcribed By: PWS 08/17/23 1439 Dictated By: Tohny Lopes II, MD 08/17/23 1436 Signed By: <Electronically signed by Thony Lopes II, MD in OV> 08/17/23 1439 Narrative 10/05/2023 11:01 AM EST [facility] Main [address] [address] Ultrasound Report Signed Patient: Ailyn Resendiz MR#: [id number] : 1995 Acct:[id number] Age/Sex: 28 / F ADM Date: 08/17/23 Loc: Room: [facility]: Amanda Rosario MD Ordering [...] to suggest metastatic disease. US/US extremity nonvascular Procedure Note Radiology, Radiologist, - 10/05/2023 [facility] Main [place] [address] [place] [address] Ultrasound Report Signed Patient: Ailyn Resendiz LMR#: [id number] : 1995Acct:[id number] Age/Sex: Date: 08/17/23 Loc: XT Room:Type: [facility] Attending Dr: Amanda Rosario MD Ordering Provider: Amanda Rosario MD Date of Service: 08/17/23 US/US extremity nonvascular: surveillancemelanoma Copies to: Amanda Rosario MD US extremity nonvascular 08/17/2023 10:08 AM SIGNS AND SYMPTOMS: surveillance melanoma right inguinal PROTOCOL: Grayscale and color Doppler sonographic images of the rightinguinal region were obtained COMPARISON: 05/27/2022 FINDINGS: There are reniform hypoechoic structures with echogenic hilum consistentwith lymph nodes noted in the right inguinal region. The largest measures 1.7 x 0.6 x 1.4 cm withthe second measuring 1.3 x 0.6 x 0.9 cm. These are similar to the prior exam. No definite corticalthickening is noted to suggest metastatic disease. US/US extremity nonvascular IMPRESSION: Benign-appearing lymph nodes are noted in the right inguinal regionwithout cortical thickening to suggest metastatic disease. Continued close clinical observation isrecommended in Impression dictated by: Thony Lopes M.D.08/17/2023 2:39 PM Dictation Location: [place] [address] Tech: Rivka Pavel Transcribed By: LEOPOLDO 08/17/23 1439 Dictated By: Thony Lopes II, MD 08/17/23 1436 Signed By: <Electronically signed by Thony Lopes II, MD inOV> 08/17/23 1439 us Amanda Rosario MD IM US PROCEDURES Final Result documented in this encounter Visit Diagnoses Not on filedocumented in this encounter Care Teams Proofer Black And White Relationship Specialty Start Date End Date Mike Putnam MD PCP - General Cardiology 04/14/23 02/08/24 Mike Putnam MD [address] [place] [address] PCP - General Family Medicine 02/09/24 Shaikh Melendrez MD [address] [place] [address] PCP - [place] [employer] 08/23/23 Melissa Zhou NP [address] [place] [address] PCP - [place] [employer] 08/23/2411/22 documented as of this encounter
--- OUTSIDE RECORDS SUMMARY | 2025-04-18 08:41 | XMS_ITS | Encounter Summary ---
Author Organization [facility] Address [address] [place] [address] Care Team Providers Care Showplace Manager Name Role Phone Mike Putnam MD Primary Care Provider [phone] Melissa Zhou NP Unavailable [phone] Encounter Details Date Type Department Care Team (Late st Contact Info) Description 08/26/2024 Abstract [facility] OB [address] [place] [address] Delvis Meraz, DO [address] [facility] [address] [place], [place] [address] Social History Tobacco Use Types Packs/Day Years [...] any clubs o r organizations such as uatsdin groups, unions, fraternal or athletic groups, or [...] Recorded Patient Health Questionnaire-2 Score 0 02/22/2024 [facility] - [...] place to sleep or slept in a nursing home (including now)? No 02/22/2024 Comments Yes Sex [...] PM EDT Visit [facility] OB [address] [facility] [place] [address] Delvis Meraz DO [address] [facility] [address] [address] documented as of this encounter Visit Diagnoses Not on filedocumented in this encounter Care Teams Showplace Manager Relationship Specialty Start Date End Date Mike Putnam MD [address] [place] [address] PCP - General Family Medicine 02/09/24 Melissa Zhou NP [address] [place] [address] PCP - [place] [employer] 08/23/2411/22 documented as of this encounter
--- OUTSIDE RECORDS SUMMARY | 2025-04-18 08:41 | XMS_ITS | Encounter Summary ---
Author Organization [facility] Address [address] [facility] [place] [address] Care Team Providers Care Remnant Sorter Name Role Phone Mike Putnam MD Primary Care Provider [phone] Mike Putnam MD Primary Care Provider +[phone] Shaikh KUSUM Melendrez Unavailable [phone] Melissa Zhou NP Unavailable [phone] Encounter Details Date Type Department Care Team (Late st Contact Info) Description 05/27/2023 External Result Encounter [facility] External Department Unsolicited Amanda Rosario MD [address] [place] [address] Social History Tobacco Use Types Packs/Day Years [...] Description 05/03/2025 2:40 PM EDT Visit [facility] OB [address] [facility] [place] [place] [address] Delvis Meraz DO [address] [place] [address] [place], [place] [address] documented as of this encounter Procedures Procedure Name Priority Date/Time Associated Diagnosis Comments US UPPER EXTREMITY NON-VASC RIGHT 05/27/2023 8:10 PM EDT documented in this encounter Results * US UPPER EXTREMITY NON-VASC RIGHT (05/27/2023 8:10 PM EDT) Anatomical Region Laterality Modality Right Ultrasound 05/27/2023 8:10 PM EDT Narrative 05/28/2023 9:47 AM EDT [facility] [address] Ultrasound Report Signed Patient: Ailyn Resendiz MR#: [id number] : 1995 Acct:[id number] Age/Sex: 27 / F ADM Date: 05/27/23 Loc: Room: Type: [facility] Attending Dr: Amanda Rosario MD [...] Gilmore Jr., D.ODavid05/27/2023 8:12 PM Dictation Location: [place] [address] Tech: Uma Leanna Transcribed By: LEOPOLDO 05/27/232011 Dictated By: Paresh Gilmore Jr, DO 05/27/232009 Signed By: <Electronically signed by Paresh Gilmore Jr, DO in OV> 05/27/232011 Procedure Note Radiology, Radiologist, MD - 05/28/2023 [facility] Main [address] [address] Ultrasound Report Signed Patient: Ailyn Resendiz LMR#: [id number] : 1995Acct:[id number] Age/Sex: 27 / FADM Date: 05/27/23 Loc: XT Room:Type: [facility] Attending Dr: Amanda Rosario MD Ordering Provider: Amanda Rosario MD Date of Service: 05/27/23 US/US extremity nonvascular: surveillancemelanoma Copies to: Amanda Rosario MD Soft tissue ultrasound. Reason for exam: History of malignant melanoma. COMPARISON: Prior ultrasound 01/09/2023 TECHNIQUE: Grayscale and color Doppler images of the right groin wereobtained. FINDINGS: Imaging of the right groin demonstrates multiplebenign-appearing lymph nodes largest measuring 1.5 x 0.5 x 1.3 cm. Findings are similar to the priorultrasound study. No solid mass, fluid collection or hernia. US/US extremity nonvascular Impression: No significant change in right groin findings compared to theprior ultrasound study. Impression dictated by: Paresh Gilmore Jr., D.O.05/27/2023 8:12 PM Dictation Location: [place] [address] Tech: Uma Ram Transcribed By: LEOPOLDO 05/27/232011 Dictated By: Paresh Gilmore Jr, DO 05/27/232009 Signed By: <Electronically signed by Paresh Gilmore Jr DO inOV> 05/27/232011 us Amanda Rosario MD IMG US PROCEDURES Final Result documented in this encounter Visit Diagnoses Not on filedocumented in this encounter Care Teams Remnant Sorter Relationship Specialty Start Date End Date Mike Putnam MD PCP - General Cardiology 04/14/23 02/08/24 Mike Putnam MD [address] [place] [address] PCP - General Family Medicine 02/09/24 Shaikh Melendrez MD [address] [place] [address] PCP - [place] [employer] 08/23/23 Melissa Zhou NP [address] [place] [address] PCP - [place] [employer] 08/23/2411/22 documented as of this encounter
--- OUTSIDE RECORDS SUMMARY | 2025-04-18 08:41 | XMS_ITS | Encounter Summary ---
Author Organization [facility] Address [address] [facility] [place] [address] Care Team Providers Care Child Care Teacher Name Role Phone Mike Putnam MD Primary Care Provider [phone] Melissa Zhou NP Unavailable [phone] Encounter Details Date Type Department Care Team (Late st Contact Info) Description 08/26/2024 Clinisync Result Encounter [facility] External Department Unsolicited [...] week 02/22/2024 How often do you attend [facility] or anglican services? More than 4 times per year 02/22/2024 Do you belong to any clubs o r organizations such as islam groups, unions, fraternal or athletic groups, or [...] Recorded Patient Health Questionnaire-2 Score 0 02/22/2024 [facility] Occupat ional Health - Occupational [...] a custodial (including now)? No 02/22/2024 Comments Yes Sex and Gender Information Value Date Recorded Sex Assigned at Not on file Legal Sex Female 11:40 PM EDT Gender Identity Female 05/20/2023 9:38 AM EDT Sexual Orientation Not on file documented as of this encounter Plan of Treatment Upcoming Encounters Date Type Department Care Team (Late st Contact Info) Description 05/03/2025 2:40 PM EDT Visit [facility] OB [address] [place] [address] Cruz Meraz DO [address] [address] documented as of this encounter Procedures Procedure Name Priority Date/Time Associated Diagnosis Comments US OB TRANSVAGINAL 08/26/2024 10 :15 AM EDT documented in this encounter Results * US OB TRANSVAGINAL (08/26/2024 10:15 AM EDT) Anatomical Region Laterality Modality Other 08/26/2024 10:1 5 AM EDT Narrative 08/26/2024 10:18 AM EDT [address] [address] Ultrasound Report Signed Patient: BRADY RESENDIZ MR#: [id number] : 1995 Acct:[id number] Age/Sex: 29 / F ADM Date: 08/26/24 Loc: [facility] Attending Dr: Cruz Meraz D.O. Ordering Physician: Cruz Meraz D.O. Date of Service: 08/26/24 Procedure(s): US OB transvaginal Accession Number(s): [id number] cc: Cruz Meraz D.O.; Mike Putnam M.D. The [address] [address] Patient Name: BRADY RESENDIZ MRN: [id number] date: 1995 Sex: F Assigned Patient Location: [facility] Current Patient Location: [facility] Accession/Order Number: [id number] Exam Date: 08/26/2024 09:33 Report Date: 08/26/2024 10:15 At the request of: CRUZ MERAZ Procedure: US OB transvaginal EXAMINATION: US OB transvaginal HISTORY: MISSED MENSES COMPARISON: No relevant comparison available. FINDINGS: GESTATIONAL SAC: Present and normal appearing. YOLK SAC: Present and normal appearing. POLE: Present and normal appearing. CARDIAC: Present. UTERUS: Normal size and appearance. OVARIES: Right: Normal. Left: Normal. CERVIX: 4.4 cm in length and closed. CUL-DE-SAC: Normal. OTHER: None. AGE BY LMP: Unknown LMP ELIE BY LMP: AGE BY US CRL: 8 weeks 1 day ELIE BY US CRL: 04/06/2025 US/US OB transvaginal IMPRESSION: 1. Single live intrauterine 8 weeks 1 day by today's ultrasound. Electronically authenticated by: VAMSI CONTRERAS Date: 08/26/2024 10:15 Dictated By: Vamsi Contreras M.D. Signed By: 08/26/24 1018 DD/ 1015 TD/TT: Social Science Teacher: Procedure Note Radiology, Radiologist, MD - 08/26/2024 [place] [address] Ultrasound Report Signed Patient: BRADY RESENDIZ LMR#: [id number] : 1995Acct:[id number] Age/Sex: 29 / FADM Date: 08/26/24 Loc: [facility] Attending Dr: Cruz Meraz D.O. Ordering Physician: Cruz Meraz D.O. Date of Service: 08/26/24 Procedure(s): US OB transvaginal Accession Number(s): [id number] cc: Cruz Meraz D.O.; Mike Putnam M.D. The [address] [address] Patient Name: BRADY RESENDIZ MRN: [id number] date: 1995 Sex: F Assigned Patient Location: [facility] Current Patient Location: [facility] Accession/Order Number: [id number] Exam Date: 08/26/2024 09:33 Report Date: 08/26/2024 10:15 At the request of: CRUZ MERAZ Procedure: US OB transvaginal EXAMINATION: US OB transvaginal HISTORY: MISSED MENSES COMPARISON: No relevant comparison available. FINDINGS: GESTATIONAL SAC: Present and normal appearing. YOLK SAC: Present and normal appearing. POLE: Present and normal appearing. CARDIAC: Present. UTERUS: Normal size and appearance. OVARIES: Right: Normal. Left: Normal. CERVIX: 4.4 cm in length and closed. CUL-DE-SAC: Normal. OTHER: None. AGE BY LMP: Unknown LMP ELIE BY LMP: AGE BY US CRL: 8 weeks 1 day ELIE BY US CRL: 04/06/2025 US/US OB transvaginal IMPRESSION: 1. Single live intrauterine 8 weeks 1 day by today's ultrasound. Electronically authenticated by: VAMSI CONTRERAS Date: 08/26/2024 10:15 Dictated By: Vamsi Contreras M.D. Signed By:08/26/24 1018 DD/ 1015 TD/TT: Social Science Teacher: us Generic External Data Provider [facility] Final Result documented in this encounter Visit Diagnoses Not on filedocumented in this encounter Care Teams Child Care Teacher Relationship Specialty Start Date End Date Mike Putnam MD [address] [place] [address] PCP - General Family Medicine 02/09/24 Melissa Zhou NP [address] [place] [address] PCP - Brian Savage 08/23/2411/22 documented as of this encounter
--- OUTSIDE RECORDS SUMMARY | 2025-04-18 08:41 | XMS_ITS | Encounter Summary ---
Author Organization [facility] Address [address] [place] [address] Care Team Providers Care Galley Boy Name Role Phone Mike Putnam MD Primary Care Provider [phone] Encounter Details Date Type Department Care Team (Late st Contact Info) Description 12/02/2024 Abstract [facility] OB [address] [facility] [place] [address] Kirsten Joy LPN Social History Tobacco Use Types Packs/Day Years [...] week 02/22/2024 How often do you attend [facility] or advent services? More than 4 times per year 02/22/2024 Do you belong to any clubs o r organizations such as judaism groups, unions, fraternal or athletic groups, or [...] Patient Health Questionnaire-2 Score 0 02/22/2024 [facility] Occupat ional Health - Occupational [...] PM EDT Visit [facility] OB [address] [place] [address] Delvis Meraz DO [address] [facility] [address] [address] documented as of this encounter Visit Diagnoses Not on filedocumented in this encounter Care Teams Galley Boy Relationship Specialty Start Date End Date Mike Putnam MD [address] [place] [address] PCP - General Family Medicine 02/09/24 documented as of this encounter
== END 2025-04-18 11:55 | disposition home or self-care (01) ==
LOC: FBCO 08:36
PROVIDERS: PCP Family Medicine; Visit Provider Obstetrics & Gynecology
DX: Z39.1 Encounter for care and examination of lactating mother (principal)

== ENCOUNTER 2025-07-18 20:39 | Outpatient (REF) | payer BC, SELFPAY ==
--- OUTSIDE RECORDS SUMMARY | 2025-07-18 10:20 | XMS_ITS | Encounter Summary ---
Author Organization [facility] Address [address] [place] [address] Care Team Providers Care Chemical Inspector Name Role Phone Mike Putnam MD Primary Care Provider [phone] Reason for Visit * Reason Comments Well Women Visit Encounter Details Date Type Department Care Team (Late st Contact Info) Description 07/18/2025 10:20 AM EDT Office Visit [facility] [place] [facility] [address] [place] [address] Delvis Meraz DO [address] [facility] [address] [address] Well woman exam with routine gynecological exam; control counseling Social History Tobacco Use Types Packs/Day Years [...] often do you attend chur ch or scientology services? More than 4 times per year 02/22/2024 Do you belong to any clubs o r organizations such as orthodox groups, unions, fraternal or athletic groups, or [...] place to sleep or slept in a half-way (including now)? No 02/22/2024 Comments No Sex and Gender Information Value Date Recorded Sex Assigned at Not on file Legal Sex Female 11:40 PM EDT Gender Identity Female 05/20/2023 9:38 AM EDT Sexual Orientation Not on file documented as of this encounter Last Filed Vital Signs Vital Sign Reading Time Taken Comments Blood Pressure 110/74 07/18/2025 10:52 AM EDT Pulse - - Temperature - - Respiratory Rate - - Oxygen Saturation - - Inhaled Oxygen Concentration - - Weight 65.5 kg (144 lb 8 oz) 07/18/2025 10:52 AM EDT Height - - Body Mass Index 21.34 10/11/2024 2:39 PM EST documented in this encounter Progress Notes * Lorri Fernandez, ROBERTO - 07/18/2025 10:20 AM EDT Reason for Appointment: Patient ID: Ailyn Resendiz is a 30 y.o. female who presents for Well Women Visit Patient presents today for Annual Exam. MEDICATIONS No current outpatient medications ALLERGIES No Known Allergies PROBLEMS Active Ambulatory Problems Diagnosis Date Noted Anemia 04/14/2023 Cervical polyp 04/14/2023 Gynecological disease 04/14/2023 Malignant melanoma of right lower limb, including hip (HCC) 04/14/2023 Other specified noninflammatory disorders of vagina 04/14/2023 Solitary pulmonary nodule 04/14/2023 Acute non-recurrent pansinusitis 10/11/2024 Resolved Ambulatory Problems Diagnosis Date Noted Menstrual disorder 04/14/2023 Missed menses 04/14/2023 LPRD (laryngopharyngeal reflux disease) 02/22/2024 Non-recurrent acute suppurative otitis media of right ear without spontaneous rupture of tympanic membrane 02/22/2024 Acute tonsillitis due to other specified organisms 02/22/2024 Second trimester ([facility]) 10/11/2024 Past Medical History: Diagnosis Date BMI 21.0-21.9, adult Encounter for annual routine gynecological examination without abnormal findings Irregular menses Malignant melanoma (HCC) Pelvic pressure in female Screening for STD (sexually transmitted disease) HISTORY PAST MEDICAL HISTORY SOCIAL HISTORY Past Medical History: Diagnosis Date Anemia BMI 21.0-21.9, adult Cervical polyp Encounter for annual routine gynecological examination without abnormal findings Irregular menses Malignant melanoma (HCC) right lower extremity Pelvic pressure in female [...] nursing note reviewed. Exam conducted with a extrusion die repairer present. Vitals: Estimated body mass index is 21.34 kg/m?? as calculated from the following: Height as of 10/11/24: 5' 9 . Weight as of this encounter: 144 lb 8 oz. BP: 110/74 Patient's last menstrual period was 06/24/2025 (exact date). ASSESSMENT & PLAN ICD-10-CM 1. Well woman exam with routine gynecological exam Z01.419 Pap Smear No orders of the defined types were placed in this encounter. Annual Wellness Exam: Patient presents today for routine annual exam. Patient states she has no current complaints. Patients vitals were reviewed and within normal limits. Growth and development is noted to be appropriate for age. Menstrual history is noted to be regular with no concerns reported. No mental health concerns was expressed. Pap Smear: Speculum was inserted into the vagina and pap was obtained without difficulty. No HPV testing was performed per age guideline. Patient was advised that pap results could take anywhere from 7 to 10 days to receive and our office will reach out to the patient with those once we have them. Patient canalso view results via [employer]. I reinforced importance of condom use for STI prevention. Patient declined cultures to be performed with today's visit. Breast Exam: Upon examination, clinical breast exam was noted to be normal. Patient was counseled on breast self-awareness, including the importance of knowing what is normal for her own breasts and promptly reporting any changes such as new lumps, skin dimpling, nipple discharge, or pain. Screening mammogram recommended annually beginning at age 40 or earlier if risk factors are present. Discussed signs and symptoms of breast cancer and when to seek medical attention. Answered all patient questions. Contraceptive Counseling (if applicable): Patient is currently using no control at this time as a form of contraceptive. Patient does desire control at this time. We will send Junel to patients pharmacy. Follow Up: Patient is to return to our office in one year for annual exam unless needed otherwise. Documented by Lorri Fernandez LPN on behalf of: Delvis Meraz DO documented in this encounter Plan of Treatment Scheduled Orders Name Type Priority Associated Diagnoses Orde r Schedule Pap Smear Pathology and Cytology Routine Well woman exam with routine gynecological exam Ordered: 07/18/2025 documented as of this encounter Visit Diagnoses Diagnosis Well woman exam with routine gynecological exam Routine gynecological examination control counseling documented in this encounter Care Teams Chemical Inspector Relationship Specialty Start Date End Date Mike Putnam MD [address] [place] [address] PCP - General Family Medicine 02/09/24 documented as of this encounter
--- OUTSIDE RECORDS SUMMARY | 2025-07-18 20:44 | XMS_ITS | Encounter Summary ---
Author Organization [facility] Address [address] [place] [address] Care Team Providers Care Roof Bolting Coal Miner Name Role Phone Mike Putnam MD Primary Care Provider + Mike Putnam MD Primary Care Provider [phone] Shaikh KUSUM Melendrez Unavailable [phone] Melissa Zhou NP Unavailable [phone] Encounter Details Date Type Department Care Team (Late st Contact Info) Description 06/16/2023 Abstract [facility] [address] [facility] [place] [phone] Amanda Gonzalez PA [address] [facility] [address] [place], [place] [id number] Social History Tobacco Use Types Packs/Day Years [...] on filedocumented in this encounter Care Teams Roof Bolting Coal Miner Relationship Specialty Start Date End Date Mike Putnam MD PCP - General Cardiology 04/14/23 02/08/24 Mike Putnam MD [address] [place] [address] PCP - General Family Medicine 02/09/24 Shaikh Melendrez MD [address] [place] [address] PCP - [employer] 08/23/23 Melissa Zhou NP [address] [place] [address] PCP - [employer] 08/23/2411/22 documented as of this encounter
--- OUTSIDE RECORDS SUMMARY | 2025-07-18 20:44 | XMS_ITS | Encounter Summary ---
Author Organization [facility] Address [address] [place] [address] Care Team Providers Care Welding Machine Setter Name Role Phone Mike Putnam MD Primary Care Provider [phone] Melissa Zhou NP Unavailable [phone] Encounter Details Date Type Department Care Team (Late st Contact Info) Description 08/26/2024 Abstract [facility] [address] [place] [address] Delvis Meraz DO [address] [facility] [address] [address], [facility] Social History Tobacco Use Types Packs/Day Years [...] often do you attend chur ch or bahai services? More than 4 times per year 02/22/2024 Do you belong to any clubs o r organizations such as holiness groups, unions, fraternal or athletic groups, or [...] Recorded Patient Health Questionnaire-2 Score 0 02/22/2024 [facility] Occupat ional [facility] - Occupational Stress Questionnaire Answer Date Recorded [...] on filedocumented in this encounter Care Teams Welding Machine Setter Relationship Specialty Start Date End Date Mike Putnam MD [address] [place] [address] PCP - General Family Medicine 02/09/24 Melissa Zhou NP [address] [place] [address] PCP - Brian Savage 08/23/2411/22 documented as of this encounter
--- OUTSIDE RECORDS SUMMARY | 2025-07-18 20:44 | XMS_ITS | Encounter Summary ---
Author Organization [facility] Address [address] [place] [address] Care Team Providers Care Medical Esthetician Name Role Phone Mike Putnam MD Primary Care Provider [phone] Melissa Zhou NP Unavailable [phone] Encounter Details Date Type Department Care [...] week 02/22/2024 [facility] you [facility] or rastafarian services? More than 4 times per year [...] Recorded Patient Health Questionnaire-2 Score 0 02/22/2024 [facility] of Occupat ional Health - [...] on file documented as of this encounter Procedures Procedure Name Priority Date/Time Associated Diagnosis Comments US OB ANATOMY 11/18/2024 4:11 PM EST documented in this encounter Results * US OB ANATOMY (11/18/2024 4:11 PM EST) Anatomical Region Laterality Modality Other 11/18/2024 4:11 PM EST Narrative 11/18/2024 4:14 [place] [address] Ultrasound Report Signed Patient: BRADY RESENDIZ MR#: [id number] : 1995 Acct:[id number] Age/Sex: 29 / F ADM Date: 11/18/24 Loc: US Attending Dr: Cruz Meraz D.O. Ordering Physician: Cruz Meraz D.O. Date of Service: 11/18/24 Procedure(s): US OB anatomy Accession Number(s): [id number] cc: Cruz Meraz D.O.; Mike Putnam M.D. The [place] [id number] Patient Name: BRADY RESENDIZ MRN: [id number] date: 1995 Sex: F Assigned Patient Location: US Current Patient Location: US Accession/Order Number: [id number] Exam Date: 11/18/2024 09:23 Report Date: 11/18/2024 [...] Dictated By: Vamsi Contreras M.D. Signed By: 11/18/244 DD/ 10 TD/TT: Appeals Assistant: Procedure Note Radiology, Radiologist, MD - 11/18/2024 [place] [address] Ultrasound Report Signed Patient: BRADY RESENDIZ LMR#: [id number] : 1995Acct:[id number] Age/Sex: FAD Date: 11/18/24 Loc: US Attending Dr: Cruz Meraz D.O. Ordering Physician: Kt,Cruz D.O. Date of Service: 11/18/24 Procedure(s): US OB anatomy Accession Number(s): [id number] cc: Cruz Meraz D.O.; Mike Putnam M.D. [address] [address] Patient Name: BRADY RESENDIZ MRN: [id number] date: 1995 Sex: F Assigned Patient Location: US Current Patient Location: US Accession/Order Number: [id number] Exam Date: 11/18/2024 09:23 Report Date: 11/18/2024 [...] Contreras M.D. Signed By:11/18/241613 DD/ 10 TD/TT: Appeals Assistant: us Generic External Data Provider [facility] Final Result documented in this encounter Visit Diagnoses Not on filedocumented in this encounter Care Teams Medical Esthetician Relationship Specialty Start Date End Date Mike Putnam MD [address] [place] [address] PCP - General Family Medicine 02/09/24 Melissa Zhou NP [address] [place] [address] PCP - [place] 08/23/2411/22 documented as of this encounter
--- OUTSIDE RECORDS SUMMARY | 2025-07-18 20:44 | XMS_ITS | Encounter Summary ---
Author Organization [facility] Address [address] [place] [address] Care Team Providers Care Software Sales Consultant Name Role Phone Mike Putnam MD Primary Care Provider [phone] Melissa Zhou NP Unavailable [phone] Encounter Details Date Type Department Care Team (Late st Contact Info) Description 09/29/2024 Abstract [facility] [address] [facility] [facility] [place] [address] Delvis Meraz DO [address] [facility] [address], [facility] Social History Tobacco Use Types Packs/Day Years [...] often do you attend chur ch or jew services? More than 4 times per year [...] Health Questionnaire-2 Score 0 02/22/2024 [facility] Occupat ional [facility] - Occupational Stress Questionnaire Answer Date [...] place to sleep or slept in a fpc (including now)? No 02/22/2024 Comments Yes Sex and Gender Information Value Date Recorded Sex Assigned at Not on file Legal Sex Female 11:40 PM EDT Gender Identity Female 05/20/2023 9:38 AM EDT Sexual Orientation Not on file documented as of this encounter Plan of Treatment Not on file documented as of this encounter Visit Diagnoses Not on filedocumented in this encounter Care Teams Software Sales Consultant Relationship Specialty Start Date End Date Mike Putnam MD [address] [place] [address] PCP - General Family Medicine 02/09/24 Melissa Zhou NP [address] [place] [address] PCP - Brian Savage 08/23/2411/22 documented as of this encounter
--- OUTSIDE RECORDS SUMMARY | 2025-07-18 20:44 | XMS_ITS | Clinical Summary ---
Author Organization [facility] Address [address] [place] [address] Care Team Providers Care Meteorological Observer Name Role Phone Mike Putnam MD Primary Care Provider [phone] Allergies No known active allergies Medications norethindrone-e thinyl estradiol (12/12) 1-20 MG-MCG tabletIndicatio ns: control counseling Take 1 tablet by mouth Daily 28 tablet 11 5 07/18/20 26 Active MV-Min-Fe Fum-FA-DHA ( 1 PO) Take by mouth 07/18/20 25 Discontinued Active Problems Problem Noted Date Diagnosed Date Acute non-recurrent pansinusitis 10/11/2024 Assessment & Plan [...] Problem Noted Date Diagnosed Date Resolved Date Second trimester ([facility]) 10/11/2024 03/24/2025 LPRD (laryngopharyngeal reflux disease) 02/22/2024 10/11/2024 Non-recurrent [...] Encounters Date Type Department Care Team Description 07/18/2025 10:20 AM EDT Office Visit [facility] [address] [place] [address] Delvis Meraz DO Well woman exam with routine gynecological exam; control counseling 07/18/2025 Bamboo flowsheet [facility] [address] [place] [address] Delvis Meraz DO 07/11/2025 Travel 05/03/2025 2:40 PM EDT Visit [facility] [address] [place] [address] Delvis Meraz DO 6 weeks follow-up ([facility]); Spontaneous vaginal delivery ([facility]) 04/26/2025 Travel from Last 3 Months Family History Medical History Relation Name Comments Heart disease Father Celio Hypertension Father Celio Diabetes Maternal Grandfather Jorge Heart disease Maternal Grandfather Jorge Hypertension Maternal Grandfather Jorge Cancer Maternal Grandmother Ale Diabetes Paternal Grandfather Bill Heart disease Paternal Grandfather Serge Relation Name Status Comments Brother 1 Alive Brother 2 Alive Father Celio Alive Maternal Grandfather Jorge Maternal Grandmother Ale Mother Alive Paternal Grandfather Serge Social History Tobacco Use Types Packs/Day Years [...] How often do you attend chur or advent services? More than 4 times per year 02/22/2024 Do you belong to any clubs o r organizations such as tenriism groups, unions, fraternal or athletic groups, or [...] Recorded Patient Health Questionnaire-2 Score 0 02/22/2024 [facility] of Occupat ional Health - Occupational Stress [...] a residential (including now)? No 02/22/2024 Comments No Sex and Gender Information Value Date Recorded Sex Assigned at Not on file Legal Sex Female 11:40 PM EDT Gender Identity Female 05/20/2023 9:38 AM EDT Sexual Orientation Not on file Last Filed Vital Signs Vital Sign Reading Time Taken Comments Blood Pressure 110/74 07/18/2025 10:52 AM EDT Pulse 106 10/11/2024 2:39 PM EST Temperature 36.4 C (97.5 F) 10/11/2024 2:39 PM EST Respiratory Rate 22 10/11/2024 2:39 PM EST Oxygen Saturation 99% 10/11/2024 2:39 PM EST Inhaled Oxygen Concentration - - Weight 65.5 kg (144 lb 8 oz) 07/18/2025 10:52 AM EDT Height 175.3 cm (5' 9 ) 10/11/2024 2:39 PM EST Body Mass Index 21.34 10/11/2024 2:39 PM EST Plan of Treatment Health Maintenance Due Date Last Done Comments Skin Cancer Screening 1998 Influenza Vaccine (#1) 2025 07/09/2018, 2016 Procedures Procedure Name Priority Date/Time Associated Diagnosis Comments POCT URINALYSIS DIPSTICK Routine 05/03/2025 3:05 PM EDT 6 weeks follow-up ([facility]) from Last 3 Months Results * (ABNORMAL) POCT urinalysis dipstick manually resulted (05/03/2025 3:05 PM EDT) Color, UA Yellow Clarity, UA Clear Glucose, UA Negative Negative - 2000(110) ++++ mg/dL Bilirubin, UA Negative Negative - 4(70) +++ mg/dL Ketones, UA Negative Negative - 160(16) ++++ mg/dL Spec Grav, UA 1.015 1 - 1.03 Blood, UA Positive Negative - 50 Naveed/mcL Comment:moderate pH, UA 6.5 5 - 9 Protein, UA Positive Negative - 2000(20) ++++ mg/dL Comment:30 Urobilinogen, UA 0.2 0.2 - 12 mg/dL Leukocytes, UA Negative Negative - 500+++ José Luis/mcL Nitrite, UA Negative Negative - Positive Urine 05/03/2025 3:05 PM EDT Delvis Meraz DO POINT OF CARE TEST ENTER/EDIT OR DERABLES Final Result from Last 3 Months Insurance [facility] Care Teams Meteorological Observer Relationship Specialty Start Date End Date Mike Putnam MD [address] [place] [address] PCP - General Family Medicine 02/09/24
--- OUTSIDE RECORDS SUMMARY | 2025-07-18 20:44 | XMS_ITS | Encounter Summary ---
Author Organization [facility] Address [address] [place] [address] Care Team Providers Care Telecommunications Technician Name Role Phone Mike Putnam MD Primary Care Provider [phone] Encounter Details Date Type Department Care Team (Late st Contact Info) Description 03/24/2025 Abstract [facility] [address] [facility] [place] [address] Delvis Meraz DO [address] [facility] [address] Ángel Mcleod, [facility]11 Social History Tobacco Use Types Packs/Day [...] often do you attend chur ch or voodoo services? More than 4 times per year [...] on filedocumented in this encounter Care Teams Telecommunications Technician Relationship Specialty Start Date End Date Mike Putnam MD [address] [place] [address] PCP - General Family Medicine 02/09/24 documented as of this encounter
--- OUTSIDE RECORDS SUMMARY | 2025-07-18 20:44 | XMS_ITS | Encounter Summary ---
Author Organization [facility] Address [address] [place] [address] Care Team Providers Care Panel Machine Tender Name Role Phone Mike Putnam MD Primary Care Provider [phone] Mike Putnam MD Primary Care Provider +[phone] Shaikh KUSUM Melendrez Unavailable [phone] Melissa Zhou NP Unavailable [phone] Encounter Details Date Type Department Care Team (Late st Contact Info) Description 08/17/2023 External Result Encounter N[facility] External Department Unsolicited Amanda Rosario MD [address] [place] [address] Social History Tobacco Use Types Packs/Day Years [...] Thony Lopes M.D.08/17/2023 2:39 PM Dictation Location: [place] [address] Tech: Rivka Zhao Transcribed By: LEOPOLDO 08/17/23 143 Dictated By: Thony Lopes II, MD 08/17/231435 Signed By: <Electronically signed by Thony Lopes II, MD in OV> 08/17/23 1439 Narrative 10/05/2023 11:01 AM [place] [address] Ultrasound Report Signed Patient: Ailyn Resendiz MR#: [id number] : 1995 Acct:[id number] Age/Sex: 28 / F ADM Date: 08/17/23 [...] nonvascular Procedure Note Radiology, Radiologist, - 10/05/2023 [facility] Main [place] [address] [place] [address] Ultrasound Report Signed Patient: Ailyn Resendiz LMR#: [id number] : 1995Acct:[id number] Age/Sex: 28 / FADM Date: 08/17/23 Loc: XT Room:Type: [facility] Attending Dr: Amanda [...] Thony Lopes M.D.08/17/2023 2:39 PM Dictation Location: [place] [address] Tech: Rivka Hindsley Transcribed By: [facility] 08/17/23 1439 Dictated By: Thony Lopes II, MD 08/17/23 1436 Signed By: <Electronically signed by Thony Lopes II, MD inOV> 08/17/23 1439 us Amanda Rosario MD IMG US PROCEDURES Final Result documented in this encounter Visit Diagnoses Not on filedocumented in this encounter Care Teams Panel Machine Tender Relationship Specialty Start Date End Date Mike Putnam MD PCP - General Cardiology 04/14/23 02/08/24 Mike Putnam MD [address] [place] [address] PCP - General Family Medicine 02/09/24 Shaikh Melendrez MD [address] [place] [address] PCP - [place] [employer] 08/23/23 Melissa Zhou NP [address] [place] [address] PCP - [place] [employer] 08/23/2411/22 documented as of this encounter
--- OUTSIDE RECORDS SUMMARY | 2025-07-18 20:44 | XMS_ITS | Encounter Summary ---
Author Organization [facility] Address [address] [place] [address] Care Team Providers Care Prime Minister Name Role Phone Mike Putnam MD Primary Care Provider [phone] Encounter Details Date Type Department Care Team (Late st Contact Info) Description 12/02/2024 Abstract [facility] [address] [place] [address] [place] [address] Kirsten Joy LPN Social History Tobacco [...] How often do you attend chur or protestant services? More than 4 times per year 02/22/2024 Do you belong to any clubs o r organizations such as restoration groups, unions, fraternal or athletic groups, or [...] Patient Health Questionnaire-2 Score 0 02/22/2024 [facility] of Occupat ional Health - [...] place to sleep or slept in a mcfp (including now)? No 02/22/2024 Comments Yes Sex and Gender Information Value Date Recorded Sex Assigned at Not on file Legal Sex Female 11:40 PM EDT Gender Identity Female 05/20/2023 9:38 AM EDT Sexual Orientation Not on file documented as of this encounter Plan of Treatment Not on file documented as of this encounter Visit Diagnoses Not on filedocumented in this encounter Care Teams Prime Minister Relationship Specialty Start Date End Date Mike Putanm MD [address] [place] [address] PCP - General Family Medicine 02/09/24 documented as of this encounter
--- OUTSIDE RECORDS SUMMARY | 2025-07-18 20:44 | XMS_ITS | Encounter Summary ---
Author Organization [facility] Address [address] [place] [address] Care Team Providers Care House Steward/Stewardess Name Role Phone Mike Putnam MD Primary Care Provider [phone] Encounter Details Date Type Department Care Team (Latest Contact Info) Description 07/11/2025 Travel Social History Tobacco Use Types Packs/Day Years [...] How often do you attend chur or catholic services? More than 4 times per year 02/22/2024 Do you belong to any clubs o r organizations such as congregational groups, unions, fraternal or athletic groups, or [...] Recorded Patient Health Questionnaire-2 Score 0 02/22/2024 [facility] [place] of Occupat ional Health - Occupational Stress [...] on filedocumented in this encounter Care Teams House Steward/Stewardess Relationship Specialty Start Date End Date Mike Putnam MD [address] [place] [address] PCP - General Family Medicine 02/09/24 documented as of this encounter
--- OUTSIDE RECORDS SUMMARY | 2025-07-18 20:44 | XMS_ITS | Encounter Summary ---
Author Organization [facility] Address [address] [place] [address] Care Team Providers Care Farrowing Manager Name Role Phone Mike Putnam MD Primary Care Provider [phone] Mike Putnam MD Primary Care Provider [phone] Shaikh KUSUM Melendrez Unavailable [phone] Melissa Zhou NP Unavailable [phone] Encounter Details Date Type Department Care Team (Late st Contact Info) Description 08/16/2023 Clinisync Result Encounter [facility] External Department Unsolicited Cruz Meraz, DO [address] [facility] [address] [address] Social History Tobacco Use Types Packs/Day Years [...] AM EDT Narrative 08/16/2023 2:14 [place] [address] Ultrasound Report Signed Patient: BRADY RESENDIZ MR#: [id number] : 1995 Acct:[id number] Age/Sex: 28 / F ADM Date: 08/15/23 Loc: US Attending Dr: Cruz Meraz D.O. Ordering Physician: Cruz Meraz D.O. Date of Service: 08/15/23 Procedure(s): US OB growth Accession Number(s): [id number] cc: Cruz Meraz D.O.; Mike Putnam M.D. The [place] [address] Patient Name: BRADY RESENDIZ MRN: [id number]:[id number] date: 1995 Sex: F Assigned Patient Location: US Current Patient Location: Accession/Order Number: [id number] Exam Date: 08/15/2023 10:00 Report Date: 08/16/2023 [...] M.D. Signed By: 08/16/23216 DD/ 3 TD/TT: Office Technology Professor: Procedure Note Radiology, Radiologist, MD - 08/16/2023 [place] [address] Ultrasound Report Signed Patient: BRADY RESENDIZ LMR#: [id number] : 1995Acct:[id number] Age/Sex: 28 / FADM Date: 08/15/23 Loc: US Attending Dr: Cruz Meraz D.O. Ordering Physician: Cruz Meraz D.O. Date of Service: 08/15/23 Procedure(s): US OB growth Accession Number(s): [id number] cc: Cruz Meraz D.O.; Mike Ptunam M.D. The [place] [id number] Patient Name: BRADY RESENDIZ MRN: [facility]:[id number] date: 1995 Sex: F Assigned Patient Location: US Current Patient Location: Accession/Order Number: [id number] Exam Date: 08/15/2023 10:00 Report Date: 08/16/2023 [...] Contreras M.D. Signed By:08/16/23216 DD/ 3 TD/TT: Office Technology Professor: us Cruz Kt DO [facility] Final Result documented in this encounter Visit Diagnoses Not on filedocumented in this encounter Care Teams Farrowing Manager Relationship Specialty Start Date End Date Mike Putnam MD PCP - General Cardiology 04/14/23 02/08/24 Mike Putnam MD [address] [place] [address] PCP - General Family Medicine 02/09/24 Shaikh Melendrez MD [address] [place] [address] PCP - [place] [employer] 08/23/23 Melissa Zhou NP [address] [place] [address] PCP - [place] [employer] 08/23/2411/22 documented as of this encounter
--- OUTSIDE RECORDS SUMMARY | 2025-07-18 20:44 | XMS_ITS | Encounter Summary ---
Author Organization [facility] Address [address] [facility] [place] [address] Care Team Providers Care Real Estate Job Titles Name Role Phone Mike Putnam MD Primary Care Provider [phone] Mike Putnam MD Primary Care Provider [phone] Shaikh KUSUM Melendrez Unavailable [phone] Melissa Zhou NP Unavailable [phone] Encounter Details Date Type Department Care Team (Late st Contact Info) Description 05/27/2023 External Result Encounter [facility] External Department Unsolicited Amnada Rosario MD [address] [place] [address] Social History Tobacco Use Types [...] PM EDT Narrative 05/28/2023 9:47 AM EDT [facility] Main [place] [id number] Ultrasound Report Signed Patient: Ailyn Resendiz MR#: [id number] : 1995 Acct:[id number] Age/Sex: 27 / F ADM Date: 05/27/23 Loc: XT Room: Type: REG RCR Attending Dr: Amanda Rosario MD Ordering [...] Gilmore Jr., D.O.05/27/2023 8:12 PM Dictation Location: [place] [address] Tech: Uma Leanna Transcribed By: LEOPOLDO 05/27/232011 Dictated By: Paresh Gilmore Jr, DO 05/27/232009 Signed By: <Electronically signed by Paresh Gilmore Jr, DO in OV> 05/27/232011 Procedure Note Radiology, Radiologist, MD - 05/28/2023 [facility] Main [address] [address] Ultrasound Report Signed Patient: Ailyn Resendiz LMR#: [id number] : 1995Acct:[id number] Age/Sex: 27 / FADM Date: 05/27/23 Loc: XT Room:Type: REG RCR Attending Dr: Amanda Rosario MD Ordering [...] Gilmore Jr., D.O.05/27/2023 8:12 PM Dictation Location: [place] [address] Tech: Uma Ram Transcribed By: [facility] 05/27/232011 Dictated By: Paresh Gilmore Jr, DO 05/27/232009 Signed By: <Electronically signed by Paresh Gilmore Jr, inOV> 05/27/232011 us Amanda Rosario MD IMG US PROCEDURES Final Result documented in this encounter Visit Diagnoses Not on filedocumented in this encounter Care Teams Real Estate Job Titles Relationship Specialty Start Date End Date Mike Putnam MD PCP - General Cardiology 04/14/23 02/08/24 Mike Putnam MD [address] [place] [address] PCP - General Family Medicine 02/09/24 Shaikh Melendrez MD [address] [place] [address] PCP - [facility] 08/23/23 Melissa Zhou NP [address] [place] [address] PCP - [place] [employer] 08/23/2411/22 documented as of this encounter
--- OUTSIDE RECORDS SUMMARY | 2025-07-18 20:44 | XMS_ITS | Encounter Summary ---
Author Organization [facility] Address [address] [place] [address] Care Team Providers Care Video Editing Intern Name Role Phone Mike Putnam MD Primary Care Provider [phone] Encounter Details Date Type Department Care Team (Late st Contact Info) Description 07/18/2025 Bamboo flowsheet [facility] [address] [place] [address] Delvis Meraz DO [address] [facility] [address]ngel Mcleod, [facility]11 Social History Tobacco Use Types Packs/Day Years [...] often do you attend chur ch or lutheran services? More than 4 times per year 02/22/2024 Do you belong to any clubs o r organizations such as gnosticism groups, unions, fraternal or athletic groups, or [...] Recorded Patient Health Questionnaire-2 Score 0 02/22/2024 [facility] [place] of Occupat ional Health - Occupational Stress [...] place to sleep or slept in a chcf (including now)? No 02/22/2024 Comments No Sex and Gender Information Value Date Recorded Sex Assigned at Not on file Legal Sex Female 11:40 PM EDT Gender Identity Female 05/20/2023 9:38 AM EDT Sexual Orientation Not on file documented as of this encounter Plan of Treatment Not on file documented as of this encounter Visit Diagnoses Not on filedocumented in this encounter Care Teams Video Editing Intern Relationship Specialty Start Date End Date Mike Putnam MD [address] [place] [address] PCP - General Family Medicine 02/09/24 documented as of this encounter
--- OUTSIDE RECORDS SUMMARY | 2025-07-18 20:44 | XMS_ITS | Encounter Summary ---
Author Organization [facility] Address [address] [place] [address] Care Team Providers Care Membership Manager Name Role Phone Mike Putnam MD Primary Care Provider [phone] Mike Putnam MD Primary Care Provider +[phone] Shaikh KUSUM Melendrez Unavailable Melissa Zhou NP Unavailable [phone] Encounter Details Date Type Department Care Team (Late st Contact Info) Description 09/03/2023 Clinisync Result Encounter NOMS External Department Unsolicited Cruz Meraz, DO [address] [facility] [address] [address] Social History Tobacco Use Types [...] PM EDT Narrative 09/03/2023 3:58 [place] [address] Ultrasound Report Signed Patient: BRADY RESENDIZ MR#: [id number] : 1995 Acct:[id number] Age/Sex: 28 / F ADM Date: 09/02/23 Loc: US Attending Dr: Cruz Meraz D.O. Ordering Physician: Cruz Meraz D.O. Date of Service: 09/02/23 Procedure(s): US OB BPP w non-stress Accession Number(s): [id number] cc: Cruz Meraz D.O.; Mike Putnam M.D. [place] [address] Patient Name: BRADY RESENDIZ MRN: [id number] date: 1995 Sex: F Assigned Patient Location: Current Patient Location: Accession/Order Number: [id number] Exam Date: 09/02/2023 16:56 Report Date: 09/03/2023 [...] M.D. Signed By: 09/03/231599 DD/ 57 TD/TT: Cartridge Belt Puncher: [place] [address] Ultrasound Report Signed Patient: BRADY RESENDIZ MR#: [id number] : 1995 Acct:[id number] Age/Sex: 28 / F ADM Date: 09/02/23 Loc: US Attending Dr: Cruz Meraz D.O. Ordering Physician: Cruz Meraz D.O. Date of Service: 09/02/23 Procedure(s): US OB BPP w non-stress Accession Number(s): [id number] cc: Cruz Meraz D.O.; Mike Putnam M.D. The [place] [id number] Patient Name: BRADY RESENDIZ MRN: [id number] date: 1995 Sex: F Assigned Patient Location: US Current Patient Location: US Accession/Order Number: [id number] Exam Date: 09/02/2023 16:56 Report Date: 09/03/2023 [...] M.D. Signed By: 09/03/231599 DD/ 57 TD/TT: Cartridge Belt Puncher: Procedure Note Radiology, Radiologist, - 09/07/2023 [place] [address] Ultrasound Report Signed Patient: BRADY RESENDIZ LMR#: [id number] : 1995Acct:[id number] Age/Sex: 28 / FADM Date: 09/02/23 Loc: US Attending Dr: Cruz Meraz D.O. Ordering Physician: Cruz Meraz D.O. Date of Service: 09/02/23 Procedure(s): US OB BPP w non-stress Accession Number(s): [id number] cc: Cruz Meraz D.O.; Mike Putnam M.D. [place] [address] Patient Name: BRADY RESENDIZ MRN: [facility]:[id number] date: 1995 Sex: F Assigned Patient Location: US Current Patient Location: US Accession/Order Number: [id number] Exam Date: 09/02/2023 16:56 Report Date: 09/03/2023 [...] 15:58 Dictated By: Vamsi Contreras M.D. Signed By:09/03/23 1600 DD/ 1558 TD/TT: Cartridge Belt Puncher: [place] [address] Ultrasound Report Signed Patient: BRADY RESENDIZ LMR#: [id number] : 1995Acct:[id number] Age/Sex: 28 / FADM Date: 09/02/23 Loc: US Attending Dr: Cruz Meraz D.O. Ordering Physician: Cruz Meraz D.O. Date of Service: 09/02/23 Procedure(s): US OB BPP w non-stress Accession Number(s): [id number] cc: Cruz Meraz D.O.; Mike Putnam M.D. [place] [address] Patient Name: BRADY RESENDIZ MRN: [facility]:[id number] date: 1995 Sex: F Assigned Patient Location: US Current Patient Location: US Accession/Order Number: [id number] Exam Date: 09/02/2023 16:56 Report Date: 09/03/2023 [...] 15:58 Dictated By: Vamsi Contreras M.D. Signed By:09/03/23 1600 DD/ 1558 TD/TT: Cartridge Belt Puncher: Cruz Meraz DO [facility] Final Result documented in this encounter Visit Diagnoses Not on filedocumented in this encounter Care Teams Membership Manager Relationship Specialty Start Date End Date Mike Putnam MD PCP - General Cardiology 04/14/23 02/08/24 Mike Putnam MD [address] [place] [address] PCP - General Family Medicine 02/09/24 Shaikh Melendrez MD [address] [place] [address] PCP - [place] [employer] 08/23/23 Melissa Zhou NP [address] [place] [address] PCP - [place] [employer] 08/23/2411/22 documented as of this encounter
--- OUTSIDE RECORDS SUMMARY | 2025-07-18 20:44 | XMS_ITS | Encounter Summary ---
Author Organization [facility] Address [address] [place] [address] Care Team Providers Care Maintenance Manager Name Role Phone Mike Putnam MD Primary Care Provider [phone] Melissa Zhou NP Unavailable [phone] Encounter Details Date Type Department Care Team (Late st Contact Info) Description 09/19/2024 Abstract [facility] [address] [facility] [place] [address] Delvis Meraz DO [address] [facility] [address]ngel Mcleod, [facility] Social History Tobacco Use Types Packs/Day Years [...] often do you attend chur ch or christianity services? More than 4 times per year 02/22/2024 Do you belong to any clubs o r organizations such as episcopal groups, unions, fraternal or athletic groups, or [...] Recorded Patient Health Questionnaire-2 Score 0 02/22/2024 [facility] of Occupat ional [facility] - Occupational Stress Questionnaire Answer Date [...] on filedocumented in this encounter Care Teams Maintenance Manager Relationship Specialty Start Date End Date Mike Putnam MD [address] [place] [address] PCP - General Family Medicine 02/09/24 Melissa Zhou NP [address] [place] [address] PCP - [facility] 08/23/2411/22 documented as of this encounter
--- OUTSIDE RECORDS SUMMARY | 2025-07-18 20:44 | XMS_ITS | Encounter Summary ---
Author Organization [facility] Address [address] [place] [address] Care Team Providers Care Prospecting Observer Name Role Phone Mike Putnam MD Primary Care Provider [phone] Encounter Details Date Type Department Care Team (Late st Contact Info) Description 03/26/2025 Abstract [facility] [address] [place] [address] Kaley Ivory, CN [address] [place], [place] [address] Social History Tobacco Use Types Packs/Day Years [...] How often do you attend chur or church services? More than 4 times per year 02/22/2024 Do you belong to any clubs o r organizations such as latter day groups, unions, fraternal or athletic groups, or [...] Recorded Patient Health Questionnaire-2 Score 0 02/22/2024 [facility] of Occupat ional [facility] - Occupational Stress Questionnaire Answer Date [...] place to sleep or slept in a fdc (including now)? No 02/22/2024 Comments Yes Sex and Gender Information Value Date Recorded Sex Assigned at Not on file Legal Sex Female 11:40 PM EDT Gender Identity Female 05/20/2023 9:38 AM EDT Sexual Orientation Not on file documented as of this encounter Plan of Treatment Not on file documented as of this encounter Visit Diagnoses Not on filedocumented in this encounter Care Teams Prospecting Observer Relationship Specialty Start Date End Date Mike Putnam MD [address] [place] [address] PCP - General Family Medicine 02/09/24 documented as of this encounter
--- OUTSIDE RECORDS SUMMARY | 2025-07-18 20:44 | XMS_ITS | Encounter Summary ---
Author Organization [facility] Address [address] [place] [address] Care Team Providers Care Lead Setter Name Role Phone Mike Putnam MD Primary Care Provider [phone] Melissa Zhou NP Unavailable [phone] Encounter Details Date Type Department Care Team (Late st Contact Info) Description 11/18/2024 Clinisync Result Encounter NOMS External Department Unsolicited Cruz Meraz, DO [address] [facility] [address] [address] Social History Tobacco Use Types Packs/Day Years [...] often do you attend chur ch or latter-day services? More than 4 times per year [...] Recorded Patient Health Questionnaire-2 Score 0 02/22/2024 [facility] of Occupat ional Health - [...] EST Narrative 11/18/2024 4:13 [place] [address] Ultrasound Report Signed Patient: BRADY RESENDIZ MR#: [id number] : 1995 Acct:[id number] Age/Sex: 29 / F ADM Date: 11/18/24 Loc: US Attending Dr: Cruz Meraz D.O. Ordering Physician: Cruz Meraz D.O. Date of Service: 11/18/24 Procedure(s): US OB cervical length Accession Number(s): [id number] cc: Cruz Meraz D.O.; Mike Putnam M.D. The [place] [id number] Patient Name: BRADY RESENDIZ MRN: [id number] date: 1995 Sex: F Assigned Patient Location: US Current Patient Location: US Accession/Order Number: [id number] Exam Date: 11/18/2024 09:23 Report Date: 11/18/2024 [...] Vamsi Contreras M.D. Signed By: 11/18/241612 DD/ 161 TD/TT: Knitter Wire Mesh: Procedure Note Radiology, Radiologist, - 11/18/2024 The [place] [id number] Ultrasound Report Signed Patient: BRADY RESENDIZ LMR#: [id number] : 1995Acct:[id number] Age/Sex: 29 / FADM Date: 11/18/24 Loc: US Attending Dr: Cruz Meraz D.O. Ordering Physician: Cruz Meraz D.O. Date of Service: 11/18/24 Procedure(s): US OB cervical length Accession Number(s): [id number] cc: Cruz Meraz D.O.; Mike Putnam M.D. [place] [address] Patient Name: BRADY RESENDIZ MRN: [id number] date: 1995 Sex: F Assigned Patient Location: US Current Patient Location: US Accession/Order Number: [id number] Exam Date: 11/18/2024 09:23 Report Date: 11/18/2024 [...] Contreras M.D. Signed By:11/18/241612 DD/ 10 TD/TT: Knitter Wire Mesh: us Cruz Kt DO [facility] Final Result documented in this encounter Visit Diagnoses Not on filedocumented in this encounter Care Teams Lead Setter Relationship Specialty Start Date End Date Mike Putnam MD [address] [place] [address] PCP - General Family Medicine 02/09/24 Melissa Zhou NP [address] [place] [address] PCP - [place] [employer] 08/23/2411/22 documented as of this encounter
--- OUTSIDE RECORDS SUMMARY | 2025-07-18 20:44 | XMS_ITS | Encounter Summary ---
Author Organization [facility] Address [address] [place] [address] Care Team Providers Care Retail Cashier Name Role Phone Mike Putnam MD Primary Care Provider [phone] Encounter Details Date Type Department Care Team [...] often do you attend [facility] or gnosticism services? More than 4 times per year [...] Recorded Patient Health Questionnaire-2 Score 0 02/22/2024 [facility] - Occupational [...] AM EST Narrative 12/15/2024 12:01 [place] [address] Ultrasound Report Signed Patient: RBADY RESENDIZ MR#: [id number] : 1995 Acct:[id number] Age/Sex: 29 / F ADM Date: 12/15/24 Loc: US Attending Dr: Cruz Meraz D.O. Ordering Physician: Cruz Meraz D.O. Date of Service: 12/15/24 Procedure(s): US OB incomplete anatomy Accession Number(s): [id number] cc: Cruz Meraz D.O.; Mike Putnam M.D. [address] [address] Patient Name: BRADY RESENDIZ MRN: [id number] date: 1995 Sex: F Assigned Patient Location: US Current Patient Location: US Accession/Order Number: [id number] Exam Date: 12/15/2024 11:15 Report Date: 12/15/2024 [...] Signed By: 12/15/24 1201 DD/ 1159 TD/TT: Professor In Family Studies: Procedure Note Radiology, Radiologist, MD - 12/15/2024 [place] [address] Ultrasound Report Signed Patient: BRADY RESENDIZ LMR#: [id number] : 1995Acct:[id number] Age/Sex: Date: 12/15/24 Loc: US Attending Dr: Cruz Meraz D.O. Ordering Physician: Cruz Meraz D.O. Date of Service: 12/15/24 Procedure(s): US OB incomplete anatomy Accession Number(s): [id number] cc: Cruz Meraz D.O.; Mike Putnam M.D. The [place] [address] Patient Name: BRADY RESENDIZ MRN: [facility]:[id number] date: 1995 Sex: F Assigned Patient Location: US Current Patient Location: US Accession/Order Number: [id number] Exam Date: 12/15/2024 11:15 Report Date: 12/15/2024 11:59 At the request of: CRUZ MERAZ Procedure: US OB incomplete anatomy EXAM: US OB incomplete anatomy HISTORY: Encounter Follow Up Ultrasound Anatomy COMPARISON: All TECHNIQUE: Transabdominal images FINDINGS: Asymmetric prominence of [...] M.D. Signed By:12/15/24 1201 DD/ 1159 TD/TT: Professor In Family Studies: us Generic External Data Provider [facility] Final Result documented in this encounter Visit Diagnoses Not on filedocumented in this encounter Care Teams Retail Cashier Relationship Specialty Start Date End Date Mike Putnam MD [address] [place] [address] PCP - General Family Medicine 02/09/24 documented as of this encounter
--- OUTSIDE RECORDS SUMMARY | 2025-07-18 20:44 | XMS_ITS | Encounter Summary ---
Author Organization [facility] Address [address] [place] [address] Phone Care Team Providers Care Director Of Estate Name Role Phone Price Girard MD Primary Care Provider [phone] Encounter Details Date Type Department Care Team (Late st Contact Info) Description 08/19/2023 Scanned Document [facility] [address] [place] [address] Conversion, Onbase Social History Tobacco Use Types Packs/Day Years Used Date Smoking Tobacco: Never Assessed Comments Unknown Sex and Gender Information Value Date Recorded Sex Assigned at Not on file Legal Sex Female 7:52 AM EST Gender Identity Not on file Sexual Orientation Not on file documented as of this encounter Plan of Treatment Not on file documented as of this encounter Visit Diagnoses Not on filedocumented in this encounter Care Teams Director Of Estate Relationship Specialty Start Date End Date Price Girard MD [address] [facility] [place] [address] PCP - General 11/23/18 documented as of this encounter
--- OUTSIDE RECORDS SUMMARY | 2025-07-18 20:44 | XMS_ITS | Encounter Summary ---
Author Organization [facility] Address [address] [place] [address] Care Team Providers Care Plate Cutter Name Role Phone Mike Putnam MD Primary Care Provider [phone] Mike Putnam MD Primary Care Provider +[phone] Shaikh KUSUM Melendrez Unavailable [phone] Melissa Zhou NP Unavailable [phone] Encounter Details Date Type Department Care Team (Late st Contact Info) Description 09/09/2023 Clinisync Result Encounter [facility] External Department Unsolicited Cruz Meraz, DO [address] [facility] [facility] [address] [address] Social History Tobacco Use Types [...] PM EDT Narrative 09/09/2023 7:03 [place] [address] Ultrasound Report Signed Patient: BRADY RESENDIZ MR#: [id number] : 1995 Acct:[id number] Age/Sex: 28 / F ADM Date: 09/09/23 Loc: [facility] 250-[address]: Cruz Meraz D.O. Ordering Physician: Cruz Meraz D.O. Date of Service: 09/09/23 Procedure(s): US OB cervical length Accession Number(s): [id number] cc: Cruz Meraz D.O.; Mike Putnam M.D. [place] [id number] Patient Name: BRADY RESENDIZ MRN: [id number] date: 1995 Sex: F Assigned Patient Location: [facility] Current Patient Location: [facility] Accession/Order Number: [id number] Exam Date: 09/09/2023 17:50 Report Date: 09/09/2023 [...] on an outpatient basis at the patient's [place] [facility] office. COMPARISON: None. FINDINGS: heart: 122 bpm. [...] M.D. Signed By: 09/09/231904 DD/ 02 TD/TT: Manager Lpn: Procedure Note Radiology, Radiologist, MD - 09/10/2023 [place] [address] Ultrasound Report Signed Patient: BRADY RESENDIZ LMR#: [id number] : 1995Acct:[id number] Age/Sex: 28 / FADM Date: 09/09/23 Loc: [facility] 250- Attending Dr: Cruz Meraz D.O. Ordering Physician: Cruz Meraz D.O. Date of Service: 09/09/23 Procedure(s): US OB cervical length Accession Number(s): [id number] cc: Cruz Meraz D.O.; Mike Putnam M.D. The [place] [address] Patient Name: BRADY RESENDIZ MRN: [facility]:[id number] date: 1995 Sex: F Assigned Patient Location: [facility] Current Patient Location: [facility] Accession/Order Number: [id number] Exam Date: 09/09/2023 17:50 Report Date: 09/09/2023 [...] on an outpatient basis at the patient's [facility] office. COMPARISON: None. FINDINGS: heart: 122 bpm. [...] Martinez M.D. Signed By:09/09/231904 DD/ 02 TD/TT: Manager Lpn: us Cruz Kt DO [facility] Final Result documented in this encounter Visit Diagnoses Not on filedocumented in this encounter Care Teams Plate Cutter Relationship Specialty Start Date End Date Mike Putnam MD PCP - General Cardiology 04/14/23 02/08/24 Mike Putnam MD [address] [place] [address] PCP - General Family Medicine 02/09/24 Shaikh Melendrez MD [address] [place] [address] PCP - [facility] 08/23/23 Melissa Zhou NP [address] [place] [address] [facility] - [facility] [employer] 08/23/2411/22 documented as of this encounter
--- OUTSIDE RECORDS SUMMARY | 2025-07-18 20:44 | XMS_ITS | Clinical Summary ---
Author Organization [facility] Address [address] [place] [address] Phone Care Team Providers Care Quill Machine Tender Name Role Phone Price Girard MD Primary Care Provider [phone] Social History Tobacco Use Types Packs/Day Years Used Date Smoking Tobacco: Never Assessed Comments Unknown Sex and Gender Information Value Date Recorded Sex Assigned at Not on file Legal Sex Female 7:52 AM EST Gender Identity Not on file Sexual Orientation Not on file Last Filed Vital Signs Vital Sign Reading Time Taken Comments Blood Pressure 131/77 05/30/2021 2:47 PM EDT Pulse 103 05/30/2021 2:47 PM EDT Temperature 37 C (98.6 F) 05/30/2021 2:47 PM EDT Respiratory Rate 16 05/30/2021 2:47 PM EDT Oxygen Saturation 99% 05/30/2021 2:47 PM EDT Inhaled Oxygen Concentration - - Weight 64.6 kg (142 lb 6.7 oz) 05/30/2021 2:47 P M EDT Height 173 cm (5' 8.11 ) 05/30/2021 2:47 PM EDT Body Mass Index 21.58 05/30/2021 2:47 PM EDT Plan of Treatment Not on file Care Teams Quill Machine Tender Relationship Specialty Start Date End Date Price Girard MD [address] [facility] [place] [address] PCP - General 11/23/18
--- OUTSIDE RECORDS SUMMARY | 2025-07-18 20:44 | XMS_ITS | Encounter Summary ---
Author Organization [facility] Address [address] [place] [address] Care Team Providers Care Optical Instrument Repairer Name Role Phone Mike Putnam MD Primary Care Provider [phone] Melissa Zhou NP Unavailable [phone] Encounter Details Date Type Department Care Team (Late st Contact Info) Description 08/26/2024 Abstract [facility] [address] [place] [address] Delvis Meraz DO [address] [facility] [address] [place], [facility] Social History Tobacco Use Types Packs/Day Years [...] often do you attend chur ch or advent services? More than 4 times per year 02/22/2024 Do you belong to any clubs o r organizations such as zoroastrianism groups, unions, fraternal or athletic groups, or [...] Recorded Patient Health Questionnaire-2 Score 0 02/22/2024 [facility] - Occupational Stress Questionnaire Answer Date [...] place to sleep or slept in a [place] health care facility (including now)? No 02/22/2024 Comments Yes Sex and Gender Information Value Date Recorded Sex Assigned at Not on file Legal Sex Female 11:40 PM EDT Gender Identity Female 05/20/2023 9:38 AM EDT Sexual Orientation Not on file documented as of this encounter Plan of Treatment Not on file documented as of this encounter Visit Diagnoses Not on filedocumented in this encounter Care Teams Optical Instrument Repairer Relationship Specialty Start Date End Date Mike Putnam MD [address] [place] [address] PCP - General Family Medicine 02/09/24 Melissa Zhou NP [address] [place] [address] PCP - [facility] 08/23/2411/22 documented as of this encounter
--- OUTSIDE RECORDS SUMMARY | 2025-07-18 20:44 | XMS_ITS | Encounter Summary ---
Author Organization [facility] Address [address] [place] [address] Care Team Providers Care E M Assembler Name Role Phone Mike Putnma MD Primary Care Provider [phone] Mike Putnam MD Primary Care Provider [phone] Shaikh KUSUM Melendrez Unavailable [phone] Melissa Zhou NP Unavailable [phone] Encounter Details Date Type Department Care Team (Late st Contact Info) Description 04/10/2023 Abstract [facility] [address] [place] [address] Delvis Meraz DO [address] [facility] [address] [address] [place], [place] [id number] Social History Tobacco Use Types Packs/Day Years [...] on filedocumented in this encounter Care Teams E M Assembler Relationship Specialty Start Date End Date Mike Putnam MD PCP - General Cardiology 04/14/23 02/08/24 Mike Putnam MD [address] [place] [address] PCP - General Family Medicine 02/09/24 Shaikh Melendrez MD [address] [place] [address] PCP - [place] [employer] 08/23/23 Melissa Zhou NP [address] [place] [address] PCP - [place] [employer] 08/23/2411/22 documented as of this encounter
--- OUTSIDE RECORDS SUMMARY | 2025-07-18 20:44 | XMS_ITS | Encounter Summary ---
Author Organization [facility] Address [address] [place] [address] Care Team Providers Care Director [place] Sales Name Role Phone Mike Putnam MD Primary Care Provider [phone] Melissa Zhou NP Unavailable [phone] Encounter Details Date Type Department Care [...] week 02/22/2024 How often do you attend [facility] or roman catholic services? More than 4 times per year 02/22/2024 Do you belong to any clubs o r organizations such as cheondoism groups, unions, fraternal or athletic groups, or [...] Patient Health Questionnaire-2 Score 0 02/22/2024 [facility] - Occupational [...] place to sleep or slept in a assisted (including now)? No 02/22/2024 Comments Yes Sex [...] AM EDT Narrative 08/26/2024 10:18 [place] [address] Ultrasound Report Signed Patient: BRADY RESENDIZ MR#: [id number] : 1995 Acct:[id number] Age/Sex: 29 / F ADM Date: 08/26/24 Loc: [facility] Attending Dr: Cruz Meraz D.O. Ordering Physician: Cruz Meraz D.O. Date of Service: 08/26/24 Procedure(s): US OB transvaginal Accession Number(s): [id number] cc: Cruz Meraz D.O.; Mike Putnam M.D. [address] [address] Patient Name: BRADY RESENDIZ MRN: [facility]:[id number] date: 1995 Sex: F Assigned Patient Location: [facility] Current Patient Location: [facility] Accession/Order Number: [id number] Exam Date: 08/26/2024 09:33 Report Date: 08/26/2024 [...] Signed By: 08/26/24 1018 DD/ 1015 TD/TT: Bell Spinner: Procedure Note Radiology, Radiologist, - 08/26/2024 [place] [address] Ultrasound Report Signed Patient: BRADY RESENDIZ LMR#: [id number] : 1995Acct:[id number] Age/Sex: 29 / FADM Date: 08/26/24 Loc: [facility] Attending Dr: Cruz Meraz D.O. Ordering Physician: Cruz Meraz D.O. Date of Service: 08/26/24 Procedure(s): US OB transvaginal Accession Number(s): [id number] cc: Cruz Meraz D.O.; Mike Putnam M.D. The [place] [id number] Patient Name: BRADY RESENDIZ MRN: [id number]:[id number] date: 1995 Sex: F Assigned Patient Location: [facility] Current Patient Location: [facility] Accession/Order Number: [id number] Exam Date: 08/26/2024 09:33 Report Date: 08/26/2024 [...] M.D. Signed By:08/26/24 1018 DD/ 1015 TD/TT: Bell Spinner: us Generic External Data Provider [facility] Final Result documented in this encounter Visit Diagnoses Not on filedocumented in this encounter Care Teams Director [place] Sales Relationship Specialty Start Date End Date Mike Putnam MD [address] [place] [address] PCP - General Family Medicine 02/09/24 Melissa Zhou NP [address] [place] [address] PCP - [place] [employer] 08/23/2411/22 documented as of this encounter
--- OUTSIDE RECORDS SUMMARY | 2025-07-18 20:44 | XMS_ITS | Encounter Summary ---
Author Organization [facility] Address [address] [place] [address] Care Team Providers Care Hydrometer Tester Name Role Phone Mike Putnam MD Primary Care Provider [phone] Encounter Details Date Type Department Care Team (Late st Contact Info) Description 03/22/2025 Orders Only [facility] [address] [place] [address] Delvis Meraz, [address] [address] Social History Tobacco Use Types Packs/Day Years [...] often do you attend chur ch or anabaptist services? More than 4 times per year 02/22/2024 Do you belong to any clubs o r organizations such as anabaptist groups, unions, fraternal [...] Recorded Patient Health Questionnaire-2 Score 0 02/22/2024 [facility] - Occupational [...] place to sleep or slept in a group home (including now)? No 02/22/2024 Comments Yes [...] Region Laterality Modality Body Ultrasound us Delvis GORDONG OB US PROCEDURES Final Resul t documented in this encounter Visit Diagnoses Not on filedocumented in this encounter Care Teams Hydrometer Tester Relationship Specialty Start Date End Date Mike Putnam MD [address] [place] [address] PCP - General Family Medicine 02/09/24 documented as of this encounter
--- OUTSIDE RECORDS SUMMARY | 2025-07-18 20:47 | XMS_ITS | CCD ---
Author Organization [facility] CliniSyhi Care Team Providers Care Blood Donor Unit Assistant Name Role Phone Price Girard Unavailable Unavailable Unavailable Essence Blevins Unavailable Unavailable MD Amanad Rosario Attending Provider [phone] MD Sarah Leigh Referring Provider [phone] MD Mike Wagner Primary Care Provider [phone] MD Amanda Rosario Attending Provider MD Sarah Leigh Referring Provider MD Mike Wagner Primary Care Provider [phone] KT ., [address] ARROYO Admitting Unavailable KT [...] Admitting Unavailable MD Amanda Rosario Attending Provider [phone] MD Sarah Leigh Referring Provider MD Mike Wagner Primary Care Provider Mike Wagner MD Primary Care Provider [phone] Aneesh NOE, Flores Unavailable Amanda Rosario Attending Unavailable Amanda Rosario Admitting Unavailable Sarah Leigh Referring Unavailable Miek Wagner Primary Care Unavailable Abelardo MACHINE STONE POLISHER APPRENTICE, Melissa Unavailable KT, DELVIS Attending Unavailable KT, DELVIS Attending Unavailable KT, DELVIS Attending Unavailable AMANDA GONZALEZ Attending Unavailable KT, DELVIS Attending Unavailable KT, DELVIS Attending Unavailable KT, DELVIS Attending Unavailable KT, DELVIS Attending Unavailable KT, DELVIS Attending Unavailable KT, DELVIS Attending Unavailable NADEREMIKE Rodarte Attending Unavailable KT, DELVIS Attending Unavailable KT, [...] 7 days. 21 capsule 12/26/2024 01/02/2025 Active Ethinyl Estradiol / Ferrous fumarate / Norethindrone (2 sources) Estrogen Start: 07-18-2025 End: 07-18-2026 norethindrone-eth inyl estradiol (12/12) 1-20 MG-MCG tablet Indications: control counseling Take 1 tablet by mouth Daily 28 tablet 07/18/2025 07/18/2026 Active Magnesium (2 sources) Start: 08-19-2023 take 400 mg by mouth once daily Magnesium Active 400 MG PO Daily August 19, 2023 12:00am Multiple Vitamin (multivitamin) tablet (3 sources) take 1 tablet by mouth once daily Multiple Vitamin (multivitamin) tablet Take 1 tablet by mouth Daily Active Lnp-Bahf-Ox-[place] 3-Fat Com #1 (Pre-Jeanette Multivitamins/Mexican Food Maker als) 27-1-300 mg Capsule (4 sources) Start: 01-21-2023 Vgc-Iddf-Da-[place] 3-Fat Com #1 (Pre-Jeanette Multivitamins/Min erals) 27-1-300 mg Capsule Active CAP PO January 21, 2023 1:00am Start: 01-21-2023 Qup-Jebe-Ue-Om ega 3-Fat Com #1 (Pre-Jeanette Multivitamins/Minerals) 27-1-300 [...] MV-Min-Fe Fum-FA-DHA ( 1 PO) (20 sources) End: 07-18-2025 MV-Min-Fe Fum-FA-DHA ( 1 PO) Take by mouth 07/18/2025 Discontinued MV-Min- Fe Fum-FA-DHA ( 1 PO) Take [...] 18, 2021 12:00am June 24, 2021 2:04pm Magnesium Oxide (20 sources) End: 05-03-2025 magnesium oxide (Mag-Ox) 400 mg tablet 400 mg Daily 05/03/2025 Discontinued (Therapy completed) magnesium oxide (Mag-Ox) 400 mg tablet 400 mg Daily Active Multivitamin (Multiple Vitamin) Tablet (5 sources) Start: [...] [PROBLEMS RELATED TO MULTIPARITY] Onset: 01-30-2023 Episodic Contraceptive and procreative management (2 sources) Patient encounter status; Translations: [Encounter for other general counseling and advice on contraception] 07-18-2025 Episodic Deficiency and other anemia (5 sources) [...] 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 Other screening for suspected conditions (not [...] [Pyelectasis of fetus on ultrasound] 03-08-2025 Episodic Residual codes; unclassified (2 sources) Gestation period, 36 weeks; Translations: [36 weeks gestation of ] 03-15-2025 Episodic Residual codes; unclassified (2 sources) Gestation period, 37 weeks; Translations: [37 weeks gestation of ] 03-22-2025 Episodic Skin and subcutaneous tissue infections (4 [...] pulmonary nodule] Onset: 04-14-2023 04-14-2023 Episodic Other and delivery including normal (20 sources) Encounter for supervision of normal , unspecified, first trimester; Translations: [Second trimester ] Onset: 03-25-2023 Resolved: 03-24-2025 05-23-2023 Episodic Other upper respiratory infections (20 sources) [...] Range Facility Urinalysis macro (dipstick) panel (U)on 05-03-2025 Bilirubin, UA Negative Negative - 4(70) +++ mg/dL [facility] Blood, UA Positive Negative - 50 Naveed/mcL [facility] Comment on above: moderate Clarity, UA Clear [facility] Color, UA Yellow [facility] Glucose, UA Negative Negative - 2000(110) ++++ mg/dL [facility] Interpretation and review of laboratory results Abnormal [facility] Ketones, UA Negative Negative - 160(16) ++++ mg/dL [facility] Leukocytes, UA Negative Negative - 500+++ José Luis/mcL [facility] Nitrite, UA Negative Negative - Positive [facility] pH, UA 6.5 5 - 9 [facility] Protein, UA Positive Negative - 1999(20) ++++ mg/dL [facility] Comment on above: 30 Spec Grav, UA 1.015 1 - 1.03 [facility] Urobilinogen, UA 0.2 0.2 - 12 mg/dL [facility] ALL CBC WITH AUTO DIFFon BASOPHILS ABSOLUTE AUTO 0.1 N [facility] Basophils/100 WBC (Bld) 0.4 % 0.2 - 2.0 % [facility] Eosinophils/100 WBC (Bld) 0.2 % Low 0.9 - 7.0 % [facility] Erythrocyte distribution width (RBC) [Ratio] 13.9 % 11.0 - 15.0 % [facility] Hematocrit (Bld) [Volume fraction] 25.9 % Low 36.0 - 48.0 % [facility] Hemoglobin (Bld) [Mass/Vol] 8.2 g/dL Low 12.0 - 16.0 g/dL [facility] IMMATURE GRANULOCYTES ABS AUTO 0.12 High [facility] Immature granulocytes/100 WBC (Bld) 0.8 % High 0.0 - 0.5 % [facility] Interpretation and review of laboratory results Abnormal [facility] LYMPHOCYTES ABSOLUTE AUTO 1.9 [facility] Lymphocytes/100 WBC (Bld) 13.4 % Low 20.5 - 60.0 % [facility] MCH (RBC) [Entitic mass] 27.2 pg 26.7 - 34.0 pg [facility] MCHC (RBC) [Mass/Vol] 31.7 g/dL 29.9 - 35.2 g/dL [facility] MCV (RBC) [Entitic vol] 86 fL 81.0 - 99.0 fL [facility] MONOCYTES ABSOLUTE AUTO 1 High [address] [facility] Monocytes/100 WBC (Bld) 6.7 % 1.7 - 12.0 % [facility] NEUTROPHILS ABSOLUTE AUTO 11.4 High [facility] Neutrophils/100 WBC (Bld) 78.5 % High 43.0 - 75.0 % [facility] Platelet mean volume (Bld) [Entitic vol] 9.7 fL 9.5 - 13.5 fL [facility] TBH EO # 0 [facility] TB PLT [address] [facility] RBC 3.01 Low [facility]H WBC 14.5 High [facility] No Panel Informationon 03-24 Interpretation and review of laboratory results Abnormal [facility] UA (CLEAN/CATCH) IRON MOLDER HELPER/DEANNE RO IF IND.on 03-24-2025 BILIRUBIN URINE Negative NEGATIVE [facility] BLOOD URINE Negative NEGATIVE [facility] Clarity (U) CLEAR CLEAR [facility] Color (U) LT. YELLOW YELLOW [facility] GLUCOSE URINE UA Negative NEGATIVE mg/dL [facility] Ketones Ql (U) Negative NEGATIVE mg/dL [facility] Leukocyte esterase Test strip Ql (U) TRACE Abnormal NEGATIVE [facility] NITRITE URINE Negative NEGATIVE [facility] pH (U) 7.0 [pH] 5.0 - 9.0 [facility] PROTEIN URINE Negative NEG/TRACE mg/dL [facility] SPECIFIC GRAVITY URINE <=1.005 Abnormal 1.005 - 1.025 [facility] URINE MICROSCOPIC INDICATED YES [facility] UROBILINOGEN URINE 0.2 EU/dL 0.2 - 1.0 EU/dL [facility] URINE MICROSCOPIC ONLYon 03-24-2025 BACTERIA URINE TRACE Abnormal NONE SEEN #/HPF [facility] CAST SEEN? NONE SEEN NONE SEEN #/LPF [facility] CRYSTALS SEEN? None Seen None Seen #/HPF [facility] MUCUS URINE NONE SEEN NONE SEEN [facility] SQUAMOUS EPITHELIAL CELL URINE NONE SEEN NONE/RARE #/LPF [facility] RBC NONE SEEN [facility] WBC 0-2 Abnormal NONE SEEN #/HPF [facility] URINE CULTURE INDICATED NO N [facility] US OB BPP W NON-STRESS on 03-22-2025 [place] [address] Ultrasound Report Signed Patient: AILYN BARON MR#: [id number] : 1995 Acct:[id number] Age/Sex: 29 / F ADM Date: 03/22/25 Loc: [facility] 250-[address]: Delvis Meraz D.O. Ordering Physician: Delvis Meraz D.O. Date of Service: 03/22/25 Procedure(s): US OB BPP w non-stress Accession Number(s): [id number] cc: Delvis Meraz D.O.; Mike Wagner M.D. [facility] [place] [address] Patient Name: AILYN BARON MRN: [facility]:[id number] date: 1995 Sex: F Assigned Patient Location: US Current Patient Location: US Accession/Order Number: [id number] Exam Date: 03/22/2025 16:50 Report Date: 03/22/2025 16:51 At the request of: DELVIS MERAZ DO Procedure: US OB BPP w non-stress Biophysical profile. Reason for exam: Bilateral pelviectasis. COMPARISON: 03/15/2025 TECHNIQUE: Transabdominal imaging of the gravid uterus was obtained. FINDINGS: Potato [employer] Processing Supervisor reports a BPP of 8 out of 8. heart rate 135 bpm. DEDRICK is normal at 19.9 cm. Incidental note is made of bilateral hydroceles involving the scrotum. Bilateral pelviectasis. US/US OB BPP w non-stress IMPRESSION: BPP 8 out of 8. Bilateral hydroceles involving the scrotum. Bilateral pelviectasis. Impression dictated by: Paresh Gilmore Jr., D.O. 03/22/2025 4:51 PM Dictation Location: [place] [address] Electronically authenticated by: [id number] Y Date: 03/22/2025 16:51 Dictated By: Paresh Gilmore M.D. Signed By: 03/22/251652 DD/ 50 TD/TT: Furnace Loader: [facility] Tabby Gonzalezograchel arredondo MD - 03/23/2025 [place] [address] Ultrasound Report Signed Patient: AILYN BARON MR#: [id number] : 1995 Acct:[id number] Age/Sex: 29 / F ADM Date: 03/22/25 Loc: [facility] 250-[address]: Delvis Meraz D.O. Ordering Physician: Delvis Meraz D.O. Date of Service: 03/22/25 Procedure(s): US OB BPP w non-stress Accession Number(s): [id number] cc: Delvis Meraz D.O.; Mike Wagner M.D. [address] [address] Patient Name: AILYN BARON MRN: [id number] date: 1995 Sex: F Assigned Patient Location: Current Patient Location: US Accession/Order Number: [id number] Exam Date: 03/22/2025 16:50 Report Date: 03/22/2025 16:51 At the request of: DELVIS MERAZ DO Procedure: US OB BPP w non-stress Biophysical profile. Reason for exam: Bilateral pelviectasis. COMPARISON: 03/15/2025 TECHNIQUE: Transabdominal imaging of the gravid uterus was obtained. FINDINGS: Pot[employer] Processing Supervisor reports a BPP of 8 out of 8. heart rate 135 bpm. DEDRICK is normal at 19.9 cm. Incidental note is made of bilateral hydroceles involving the scrotum. Bilateral pelviectasis. US/US OB BPP w non-stress IMPRESSION: BPP 8 out of 8. Bilateral hydroceles involving the scrotum. Bilateral pelviectasis. Impression dictated by: Paresh Gilmore Jr., D.O. 03/22/2025 4:51 PM Dictation Location: [place] [address] Electronically authenticated by: [id number] Y Date: 03/22/2025 16:51 Dictated By: Paresh Gilmore M.D. Signed By: 03/22/251652 DD/ 50 TD/TT: Furnace Loader: [facility] Radiology Study observation (narrative) [facility] US OB BPP W NON-STRESS Ordered By: Radiologist Radiology on 03-22-2025 [facility] Work Phone: Urinalysis macro (dipstick) panel (U)on 03-22-2025 Bilirubin, UA Negative Negative - 4(70) +++ mg/dL [facility] Blood, UA Negative Negative - 50 Naveed/mcL [facility] Clarity, UA Clear [facility] Color, UA Yellow [facility] Glucose, UA Negative Negative - 2000(110) ++++ mg/dL [facility] Interpretation and review of laboratory results Normal [facility] Ketones, UA Negative Negative - 160(16) ++++ mg/dL [facility] Leukocytes, UA Negative Negative - 500+++ José Luis/mcL [facility] Nitrite, UA Negative Negative - Positive [facility] pH, UA 7 5 - 9 [facility] Protein, UA Negative Negative - 2000(20) ++++ mg/dL [facility] Spec Grav, UA 1.01 1 - 1.03 [facility] Urobilinogen, UA 0.2 0.2 - 12 mg/dL [facility] US OB BPP W NON-STRESS on 03-16-2025 [place] [address] Ultrasound Report Signed Patient: AILYN BARON MR#: [id number] : 1995 Acct:[id number] Age/Sex: 29 / F ADM Date: 03/15/25 Loc: US Attending Dr: Delvis Meraz D.O. Ordering Physician: Delvis Meraz D.O. Date of Service: 03/15/25 Procedure(s): US OB BPP w non-stress Accession Number(s): [id number] cc: Delvis Meraz D.O.; Mike Wagner M.D. [place] [id number] Patient Name: AILYN BARON MRN: [id number] date: 1995 Sex: F Assigned Patient Location: [facility] Current Patient Location: [facility] Accession/Order Number: [id number] Exam Date: 03/16/2025 12:59 Report Date: 03/16/2025 13:01 At the request of: DELVIS MERAZ DO Procedure: US OB BPP w non-stress Biophysical profile. Reason for exam: Bilateral pelviectasis. COMPARISON: 03/08/2025 TECHNIQUE: Transabdominal imaging of the gravid uterus was obtained. FINDINGS: [employer] Supervisor reports a BPP of 8 out of 8. heart rate 138 bpm. DEDRICK is normal at 14.9cm. Incidental note is made of bilateral hydroceles involving the scrotum. Bilateral pelviectasis. US/US OB BPP w non-stress IMPRESSION: BPP 8 out of 8. Bilateral hydroceles involving the scrotum. Bilateral pelviectasis. Impression dictated by: Paresh Gilmore Jr., D.O.03/16/2025 1:01 PM Dictation Location: [place] [address] Electronically authenticated by: [id number] Y Date: 03/16/2025 13:01 Dictated By: Paresh Gilmore M.D. Signed By: 03/16/25 1303 DD/ 1301 TD/TT: Furnace Loader: [facility] Radiology, Radiologi MD maria elena - 03/16/2025 [place] [address] Ultrasound Report Signed Patient: AILYN BARON MR#: [id number] : 1995 Acct:[id number] Age/Sex: 29 / F ADM Date: 03/15/25 Loc: US Attending Dr: Delvis Meraz D.O. Ordering Physician: Delvis Meraz D.O. Date of Service: 03/15/25 Procedure(s): US OB BPP w non-stress Accession Number(s): [id number] cc: Delvis Merza D.O.; Mike Wagner M.D. [facility] [place] [id number] Patient Name: AILYN BARON MRN: [facility]:[id number] date: 1995 Sex: F Assigned Patient Location: [facility] Current Patient Location: [facility] Accession/Order Number: [id number] Exam Date: 03/16/2025 12:59 Report Date: 03/16/2025 13:01 At the request of: DELVIS MERAZ DO Procedure: US OB BPP w non-stress Biophysical profile. Reason for exam: Bilateral pelviectasis. COMPARISON: 03/08/2025 TECHNIQUE: Transabdominal imaging of the gravid uterus was obtained. FINDINGS: [employer] Supervisor reports a BPP of 8 out of 8. heart rate 138 bpm. DEDRICK is normal at 14.9cm. Incidental note is made of bilateral hydroceles involving the scrotum. Bilateral pelviectasis. US/US OB BPP w non-stress IMPRESSION: BPP 8 out of 8. Bilateral hydroceles involving the scrotum. Bilateral pelviectasis. Impression dictated by: Paresh Gilmore Jr., D.O.03/16/2025 1:01 PM Dictation Location: [place] [address] Electronically authenticated by: [id number] Y Date: 03/16/2025 13:01 Dictated By: Paresh Gilmore M.D. Signed By: 03/16/25 1303 DD/ 1301 TD/TT: Furnace Loader: [facility] Radiology Study observation (narrative) [facility] US OB BPP W NON-STRESS Ordered By: Radiologist Radiology on 03-16-2025 [facility] Work Phone: Urinalysis macro (dipstick) panel (U)on 03-15-2025 Bilirubin, UA Negative Negative - 4(70) +++ mg/dL [facility] Blood, UA Negative Negative - 50 Naveed/mcL [facility] Clarity, UA Clear [facility] Color, UA Yellow [facility] Glucose, UA Negative Negative - 2000(110) ++++ mg/dL [facility] Interpretation and review of laboratory results Normal [facility] Ketones, UA Negative Negative - 160(16) ++++ mg/dL [facility] Leukocytes, UA Negative Negative - 500+++ José Luis/mcL [facility] Nitrite, UA Negative Negative - Positive [facility] pH, UA 7 5 - 9 [facility] Protein, UA Negative Negative - 2000(20) ++++ mg/dL [facility] Spec Grav, UA 1.02 1 - 1.03 [facility] Urobilinogen, UA 0.2 0.2 - 12 mg/dL [facility] US OB BPP W NON-STRESS on 03-08-2025 [facility] [address] [place] [address] Ultrasound Report Signed Patient: AILYN BARON MR#: [id number] : 1995 Acct:[id number] Age/Sex: 29 / F ADM Date: Loc: [facility] 428-[address]: Delvis Meraz D.O. Ordering Physician: Delvis Meraz D.O. Date of Service: 03/08/25 Procedure(s): US OB BPP w non-stress Accession Number(s): [id number] cc: Delvis Meraz D.O.; Mike Wagner M.D. [facility] [place] [id number] Patient Name: AILYN BARON MRN: [facility]:[id number] date: 1995 Sex: F Assigned Patient Location: [facility] Current Patient Location: [facility] Accession/Order Number: [id number] Exam Date: 03/08/2025 16:22 Report Date: 03/08/2025 16:24 At the request of: DELVIS MERAZ DO Procedure: US OB BPP w non-stress Biophysical profile. Reason for exam: Bilateral pelviectasis. COMPARISON: None. TECHNIQUE: Transabdominal imaging of the gravid uterus was obtained. FINDINGS: [employer] Supervisor reports a BPP of 8 out of 8. heart rate 1 35 bpm. DEDRICK is normal at 18.4 cm. Incidental note is made of bilateral hydroceles involving the scrotum. US/US OB BPP w non-stress IMPRESSION: BPP 8 out of 8. Bilateral hydroceles involving the scrotum. Impression dictated by: Paresh Gilmore Jr., D.O.03/08/2025 4:24 PM Dictation Location: [place] [address] Electronically authenticated by: [id number] Y Date: 03/08/2025 16:24 Dictated By: Paresh Gilmore M.D. Signed By: 03/08/25 1626 DD/ 162 TD/TT: Furnace Loader: [facility] RadiologyMarine MD - 03/09/2025 [facility] [place] [id number] Ultrasound Report Signed Patient: AILYN BARON MR#: [id number] : 1995 Acct:[id number] Age/Sex: 29 / F ADM Date: Loc: [facility] 254-[address]: Delvis Meraz D.O. Ordering Physician: Delvis Meraz D.O. Date of Service: 03/08/25 Procedure(s): US OB BPP w non-stress Accession Number(s): [id number] cc: Delvis Meraz D.O.; Mike Wagner M.D. [place] [id number] Patient Name: AILYN BARON MRN: [id number] date: 1995 Sex: F Assigned Patient Location: [facility] Current Patient Location: [facility] Accession/Order Number: [id number] Exam Date: 03/08/2025 16:22 Report Date: 03/08/2025 16:24 At the request of: DELVIS MERAZ DO Procedure: US OB BPP w non-stress Biophysical profile. Reason for exam: Bilateral pelviectasis. COMPARISON: None. TECHNIQUE: Transabdominal imaging of the gravid uterus was obtained. FINDINGS: Pot[employer] Supervisor reports a BPP of 8 out of 8. heart rate 1 35 bpm. DEDRICK is normal at 18.4 cm. Incidental note is made of bilateral hydroceles involving the scrotum. US/US OB BPP w non-stress IMPRESSION: BPP 8 out of 8. Bilateral hydroceles involving the scrotum. Impression dictated by: Paresh Gilmore Jr., D.O.03/08/2025 4:24 PM Dictation Location: [place] [address] Electronically authenticated by: [id number] Y Date: 03/08/2025 16:24 Dictated By: Paresh Gilmore M.D. Signed By: 03/08/25 1626 DD/ 23 TD/TT: Furnace Loader: [facility] Radiology Study observation (narrative) [facility] US OB BPP W NON-STRESS Ordered By: Radiologist Radiology on 03-08-2025 [facility] Work Phone: Urinalysis macro (dipstick) panel (U)on 03-08-2025 Bilirubin, UA Negative Negative - 4(70) +++ mg/dL [facility] Blood, UA Negative Negative - 50 Naveed/mcL [facility] Clarity, UA Clear [facility] Color, UA Yellow [facility] Glucose, UA Negative Negative - 1999(110) ++++ mg/dL [facility] Interpretation and review of laboratory results Abnormal [facility] Ketones, UA Negative Negative - 160(16) ++++ mg/dL [facility] Leukocytes, UA Positive Negative - 500+++ José Luis/mcL [facility] Nitrite, UA Negative Negative - Positive [facility] pH, UA 6 5 - 9 [facility] Protein, UA Negative Negative - 2000(20) ++++ mg/dL [facility] Spec Grav, UA 1.025 1 - 1.03 [facility] Urobilinogen, UA 1.0 0.2 - 12 mg/dL [facility] US for multiple gestation pr egnancy limitedon 03-06-2025 [place] [address] Ultrasound Report Signed Patient: AILYN BARON MR#: [id number] : 1995 Acct:[id number] Age/Sex: 29 / F ADM Date: 03/04/25 Loc: US Attending Dr: Delvis Meraz D.O. Ordering Physician: Delvis Meraz D.O. Date of Service: 03/04/25 Procedure(s): US OB follow up Accession Number(s): [id number] cc: Delvis Meraz D.O.; Mike Wagner M.D. [place] [address] Patient Name: AILYN BARON MRN: [id number] date: 1995 Sex: F Assigned Patient Location: US Current Patient Location: Accession/Order Number: [id number] Exam Date: 03/06/2025 08:50 Report Date: 03/06/2025 [...] Lorri Barros M.D.03/06/2025 8:54 AM Dictation Location: [place] [address] Electronically authenticated by: [id number] Y Date: 03/06/2025 08:54 Dictated By: Lorri Barros M.D. Signed By: 03/06/25 0857 DD/ 0854 TD/TT: Furnace Loader: [facility] Tabby Gonzalezograchel arredondo MD - 03/06/2025 [place] [address] Ultrasound Report Signed Patient: AILYN BARON MR#: [id number] : 1995 Acct:[id number] Age/Sex: 29 / F ADM Date: 03/04/25 Loc: US Attending Dr: Delvis Meraz D.O. Ordering Physician: Delvis Meraz D.O. Date of Service: 03/04/25 Procedure(s): US OB follow up Accession Number(s): [id number] cc: Delvis Meraz D.O.; Mike Wagner M.D. [place] [address] Patient Name: AILYN BARON MRN: [facility]:[id number] date: 1995 Sex: F Assigned Patient Location: US Current Patient Location: Accession/Order Number: [id number] Exam Date: 03/06/2025 08:50 Report Date: 03/06/2025 [...] Lorri Barros M.D.03/06/2025 8:54 AM Dictation Location: [place] [address] Electronically authenticated by: [id number] Y Date: 03/06/2025 08:54 Dictated By: Lorri Barros M.D. Signed By: 03/06/25 0857 DD/ 0854 TD/TT: Furnace Loader: [facility] Radiology Study observation (narrative) [facility] US for multiple gestation pr egnancy limitedOrdered By: Radiologist Radiology on 03-06-2025 [facility] Work Phone: Urinalysis macro (dipstick) panel (U)on 02-21-2025 Bilirubin, UA Negative Negative - 4(70) +++ mg/dL [facility] Blood, UA Negative Negative - 50 Naveed/mcL [facility] Clarity, UA Clear [facility] Color, UA Yellow [facility] Glucose, UA Negative Negative - 1999(110) ++++ mg/dL [facility] Interpretation and review of laboratory results Normal [facility] Ketones, UA Negative Negative - 160(16) ++++ mg/dL [facility] Leukocytes, UA Negative Negative - 500+++ José Luis/mcL [facility] Nitrite, UA Negative Negative - Positive [facility] pH, UA 7 5 - 9 [facility] Protein, UA Negative Negative - 1999(20) ++++ mg/dL [facility] Spec Grav, UA 1.02 1 - 1.03 [facility] Urobilinogen, UA 0.2 0.2 - 12 mg/dL [facility] Urinalysis macro (dipstick) panel (U)on 02-09-2025 Bilirubin, UA Negative Negative - 4(70) +++ mg/dL [facility] Blood, UA Negative Negative - 50 Naveed/mcL [facility] Healthcare Clarity, UA Clear [facility] Healthcare Color, UA Yellow [facility] Glucose, UA Negative Negative - 1999(110) ++++ mg/dL [facility] Interpretation and review of laboratory results Abnormal [facility] Ketones, UA Negative Negative - 160(16) ++++ mg/dL [facility] Leukocytes, UA Positive Negative - 500+++ José Luis/mcL [facility] Comment on above: small Nitrite, UA Negative Negative - Positive [facility] pH, UA 7.5 5 - 9 [facility] Protein, UA Negative Negative - 1999(20) ++++ mg/dL [facility] Spec Grav, UA 1.015 1 - 1.03 [facility] Urobilinogen, UA 0.2 0.2 - 12 mg/dL [facility] Urinalysis macro (dipstick) panel (U)on 01-25-2025 Bilirubin, UA Negative Negative - 4(70) +++ mg/dL [facility] Blood, UA Negative Negative - 50 Naveed/mcL [facility] Clarity, UA Clear [facility] Color, UA Yellow [facility] Glucose, UA Negative Negative - 1999(110) ++++ mg/dL [facility] Interpretation and review of laboratory results Normal [facility] Ketones, UA Negative Negative - 160(16) ++++ mg/dL [facility] Leukocytes, UA Negative Negative - 500+++ José Luis/mcL [facility] Nitrite, UA Negative Negative - Positive [facility] pH, UA 7 5 - 9 [facility] Protein, UA Negative Negative - 1999(20) ++++ mg/dL [facility] Spec Grav, UA 1.015 1 - 1.03 [facility] Urobilinogen, UA 0.2 0.2 - 12 mg/dL [facility] Urinalysis macro (dipstick) panel (U)on 01-11-2025 Bilirubin, UA Negative Negative - 4(70) +++ mg/dL [facility] Blood, UA Negative Negative - 50 Naveed/mcL [facility] Clarity, UA Clear [facility] Color, UA Yellow [facility] Glucose, UA Negative Negative - 1999(110) ++++ mg/dL [facility] Interpretation and review of laboratory results Abnormal [facility] Ketones, UA Positive Negative - 160(16) ++++ mg/dL [facility] Comment on above: trace Leukocytes, UA Negative Negative - 500+++ José Luis/mcL [facility] Nitrite, UA Negative Negative - Positive [facility] pH, UA 7 5 - 9 [facility] Protein, UA Negative Negative - 1999(20) ++++ mg/dL [facility] Spec Grav, UA 1.02 1 - 1.03 [facility] Urobilinogen, UA 0.2 0.2 - 12 mg/dL [facility] GLUCOSE 1 HOURon 01-09-2025 Glucose [Mass/Vol] 97 mg/dL NINF - 13 0 mg/dL [facility] Urinalysis macro (dipstick) panel (U)on 12-28-2024 Bilirubin, UA Negative Negative - 4(70) +++ mg/dL [facility] Blood, UA Positive Negative - 50 Naveed/mcL [facility] Clarity, UA Clear [facility] Color, UA Yellow [facility] Glucose, UA Negative Negative - 1999(110) ++++ mg/dL [facility] Interpretation and review of laboratory results Abnormal [facility] Ketones, UA Negative Negative - 160(16) ++++ mg/dL [facility] Leukocytes, UA Negative Negative - 500+++ José Luis/mcL [facility] Nitrite, UA Negative Negative - Positive [facility] pH, UA 6 5 - 9 [facility] Protein, UA Positive Negative - 1999(20) ++++ mg/dL [facility] Spec Grav, UA 1.03 1 - 1.03 [facility] Urobilinogen, UA 1.0 0.2 - 12 mg/dL [facility] US OB CERVICAL LENGTHon [facility] [address] [place] [address] Ultrasound Report Signed Patient: AILYN BARON MR#: [id number] : 1995 Acct:[id number] Age/Sex: 29 / F ADM Date: 12/26/24 Loc: US Attending Dr: Delvis Meraz D.O. Ordering Physician: Delvis Meraz D.O. Date of Service: 12/26/24 Procedure(s): US OB cervical length Accession Number(s): [id number] cc: Delvis Meraz D.O.; Mike Wagner M.D. [facility] [place] [id number] Patient Name: AILYN BARON MRN: [facility]:[id number] date: 1995 Sex: F Assigned Patient Location: US Current Patient Location: ED.MAIN Accession/Order Number: [id number] Exam Date: 12/26/2024 15:30 Report Date: 12/27/2024 [...] M.D. Signed By: 12/27/24922 DD/ 0 TD/TT: Furnace Loader: [facility] Radiology, Radiologi MD maria elena - 12/27/2024 [facility] [place] [id number] Ultrasound Report Signed Patient: AILYN BARON MR#: [id number] : 1995 Acct:[id number] Age/Sex: 29 / F ADM Date: 12/26/24 Loc: US Attending Dr: Delvis Meraz D.O. Ordering Physician: Delvis Meraz D.O. Date of Service: 12/26/24 Procedure(s): US OB cervical length Accession Number(s): [id number] cc: Delvis Meraz D.O.; Mike Wagner M.D. [place] [id number] Patient Name: AILYN BARON MRN: [facility]:[id number] date: 1995 Sex: F Assigned Patient Location: US Current Patient Location: ED.MAIN Accession/Order Number: [id number] Exam Date: 12/26/2024 15:30 Report Date: 12/27/2024 [...] M.D. Signed By: 12/27/24922 DD/ 0 TD/TT: Furnace Loader: [facility] Radiology Study observation (narrative) [facility] US OB CERVICAL LENGTHOrdered By: Radiologist Radiology on 12-27-2024 [facility] Work Phone: Urinalysis macro (dipstick) panel (U)on 11-28-2024 Bilirubin, UA Negative Negative - 4(70) +++ mg/dL [facility] Blood, UA Positive Negative - 50 Naveed/mcL [facility] Comment on above: trace Clarity, UA Clear [facility] Color, UA Yellow [facility] Glucose, UA Negative Negative - 1999(110) ++++ mg/dL [facility] Interpretation and review of laboratory results Abnormal [facility] Ketones, UA Negative Negative - 160(16) ++++ mg/dL [facility] Leukocytes, UA Negative Negative - 500+++ José Luis/mcL [facility] Nitrite, UA Negative Negative - Positive [facility] pH, UA 6.5 5 - 9 [facility] Protein, UA Negative Negative - 1999(20) ++++ mg/dL [facility] Spec Grav, UA 1.025 1 - 1.03 [facility] Urobilinogen, UA 0.2 0.2 - 12 mg/dL [facility] No Panel Informationon 10-26 STAPHYLOCOCCUS EPIDERMIDIS, HAEMOLYTICUS, LUGDUNENSIS, SAPROPHYTICUS (URINA 0 [facility] STAPHYLOCOCCUS EPIDERMIDIS, HAEMOLYTICUS, LUGDUNENSIS, SAPROPHYTICUS (URINA Not detected [facility] URINARY TRACT INFECTION (HTR X)on 10-26-2024 ACINETOBACTER BAUMANII 0 NO [facility] ACINETOBACTER BAUMANII Not detected [facility] STEVEN ALBICANS, PARAPSILOSIS, TROPICALIS 0 [facility] STEVEN ALBICANS, PARAPSILOSIS, TROPICALIS Not detected [facility] STEVEN GLABRATA 0 [facility] STEVEN GLABRATA Not detected [facility] STEVEN KRUSEI 0 [facility] STEVEN KRUSEI Not detected [facility] CITROBACTER FREUNDII 0 [facility] CITROBACTER FREUNDII Not detected NO [facility] ENTEROBACTER AEROGENES, CLOACAE 0 [facility] ENTEROBACTER AEROGENES, CLOACAE Not detected [facility] ENTEROCOCCUS FAECALIS, FAECIUM 0 [facility] ENTEROCOCCUS FAECALIS, FAECIUM Not detected [facility] ESCHERICHIA COLI 0 [facility] ESCHERICHIA COLI Not detected [facility] KLEBSIELLA PNEUMONIAE, OXYTOCA 0 [facility] KLEBSIELLA PNEUMONIAE, OXYTOCA Not detected [facility]GANELLA MORGANII [facility] MORGANELL[facility] MORGANII Not detected NOM [facility] PROTEUS MIRABILIS, VULGARIS 0 [facility] PROTEUS MIRABILIS, VULGARIS Not detected [facility] PSEUDOMONAS AERUGINOSA 0 NO [facility] PSEUDOMONAS AERUGINOSA Not detected [facility] SERRATIA MARCESCENS 0 NOMS [facility] SERRATIA MARCESCENS Not detected NOM [facility] STAPHYLOCOCCUS AUREUS 0 [facility] STAPHYLOCOCCUS AUREUS Not detected N S [facility] STREPTOCOCCUS AGALACTIAE (GROUP B STREP) 0 [facility] STREPTOCOCCUS AGALACTIAE (GROUP B STREP) Not detected [facility] STREPTOCOCCUS PYOGENES (GROUP A STREP) 0 [facility] STREPTOCOCCUS PYOGENES (GROUP A STREP) Not detected [facility] Urinalysis macro (dipstick) panel (U)on 10-24-2024 Bilirubin, UA Negative Negative - 4(70) +++ mg/dL [facility] Blood, UA Positive Negative - 50 Naveed/mcL [facility] Clarity, UA Clear [facility] Color, UA Yellow [facility] Glucose, UA Negative Negative - 1999(110) ++++ mg/dL [facility] Interpretation and review of laboratory results Normal [facility] Ketones, UA Negative Negative - 160(16) ++++ mg/dL [facility] Leukocytes, UA Negative Negative - 500+++ José Luis/mcL [facility] Nitrite, UA Negative Negative - Positive [facility] pH, UA 5.5 5 - 9 [facility] Protein, UA Negative Negative - 1999(20) ++++ mg/dL [facility] Spec Grav, UA 1.02 1 - 1.03 [facility] Urobilinogen, UA 1.0 0.2 - 12 mg/dL [facility] Urinalysis macro (dipstick) panel (U)on 09-26-2024 Bilirubin, UA Negative Negative - 4(70) +++ mg/dL [facility] Blood, UA Negative Negative - 50 Naveed/mcL [facility] Clarity, UA Clear [facility] Color, UA Yellow [facility] Glucose, UA Negative Negative - 1999(110) ++++ mg/dL [facility] Interpretation and review of laboratory results Normal [facility] Ketones, UA Negative Negative - 160(16) ++++ mg/dL [facility] Leukocytes, UA Negative Negative - 500+++ José Luis/mcL [facility] Nitrite, UA Negative Negative - Positive [facility] pH, UA 5.5 5 - 9 [facility] Protein, UA Negative Negative - 1999(20) ++++ mg/dL [facility] Spec Grav, UA 1.02 1 - 1.03 [facility] Urobilinogen, UA 0.2 0.2 - 12 mg/dL [facility] MLR HEMOGLOBIN A1Con 024 Glucose [Mass/Vol] 91 mg/dL [facility] HbA1c (Bld) [Mass fraction] 4.8 % 4.5 - 6.2 % [facility] Comment on above: ADA RECOMMENDED LIMI T 4.0 - 6.0 ADA THERAPEUTIC TARGET < 7.0 ACTION SUGGESTED > 7.0 [facility] Ql (U)o n 08-26-2024 Interpretation and review of laboratory results Abnormal [facility] Preg Test, Ur Positive [facility] Urinalysis macro (dipstick) panel (U)on 08-26-2024 Bilirubin, UA Negative Negative - 4(70) +++ mg/dL [facility] Blood, UA Negative Negative - 50 Naveed/mcL [facility] Clarity, UA Clear [facility] Color, UA Yellow [facility] Glucose, UA Negative Negative - 2000(110) ++++ mg/dL [facility] Interpretation and review of laboratory results Normal [facility] Ketones, UA Negative Negative - 160(16) ++++ mg/dL [facility] Leukocytes, UA Negative Negative - 500+++ José Luis/mcL [facility] Nitrite, UA Negative Negative - Positive [facility] pH, UA 7.0 5 - 9 [facility] Protein, UA Negative Negative - 2000(20) ++++ mg/dL [facility] Spec Grav, UA 1.025 1 - 1.03 [facility] Urobilinogen, UA 0.2 0.2 - 12 mg/dL [facility] TBH PREG QUANT HCGon 024 HCG QUANTITATIVE 1850 mIU/mL [facility] Comment on above: 5-50 0.2-1 WEEK 50-500 1-2 WEEKS 100-5,000 2-3 WEEKS 500-10,000 3-4 WEEKS 1,000-50,000 4-5 WEEKS 10,000-100,000 5-6 WEEKS 15,000-200,000 6-8 WEEKS 10,000-100,000 2-[facility] HCGon 024 HCG QUANTITATIVE 824 mIU/mL [facility] Comment on above: 5-50 0.2-1 WEEK 50-500 1-2 WEEKS 100-5,000 2-3 WEEKS 500-10,000 3-4 WEEKS 1,000-50,000 4-5 WEEKS 10,000-100,000 5-6 WEEKS 15,000-200,000 6-8 WEEKS 10,000-100,000 2-3 MONTHS [facility] Cytology Cervical or vaginal smear or scraping studyon 02-10-2024 [facility] Alanine aminotransferase [En zymatic activity/volume] in Serum or PlasmaOrdered By: Amanda Rosairo on 05-20-2023 ALT [Catalytic activity/Vol] 9 U/L 7-52 [facility] Albumin [Mass/volume] in Ser um or Plasma by Bromocresol green (BCG) dye binding methoOrdered By: Amanda Rosario on 05-20-2023 Albumin BCG dye [Mass/Vol] 3.8 g/dL 3.5-5.7 [facility] Alkaline phosphatase [Enzyma tic activity/volume] in Serum or PlasmaOrdered By: Amanda Rosario on 05-20-2023 ALP [Catalytic activity/Vol] 52 U/L 34-104 [facility] Aspartate aminotransferase [ Enzymatic activity/volume] in Serum or PlasmaOrdered By: Amanda Rosario on 05-20-2023 AST [Catalytic activity/Vol] 14 U/L 13-39 [facility] Basophils Auto (Bld) [#/Vol] Ordered By: Amanda Rosario on 05-20-2023 Basophils (Bld) [#/Vol] 0.0 10*3/uL 0.0-0.2 [facility] Basophils/100 WBC Auto (Bld) Ordered By: Amanda Rosario on 05-20-2023 Basophils/100 WBC (Bld) 0.4 % . [facility] Bilirubin.total [Mass/volume ] in Serum or PlasmaOrdered By: Amanda Rosario on 05-20-2023 Bilirubin [Mass/Vol] 0.5 mg/dL 0.3-1.0 [facility] Calcium [Mass/volume] in Ser um or PlasmaOrdered By: Amanda Rosario on 05-20-2023 Calcium [Mass/Vol] 8.5 mg/dL 8.6-10.3 [facility] Carbon dioxide, total [Moles /volume] in Serum or PlasmaOrdered By: Amanda Rosario on 05-20-2023 CO2 [Moles/Vol] 26.1 mmol/L 21.0-31.0 [facility] Chloride [Moles/volume] in [place] or PlasmaOrdered By: Amanda Rosario on 05-20-2023 Chloride [Moles/Vol] 104 mmol/L 98-107 [facility] Creatinine [Mass/volume] in Serum or PlasmaOrdered By: Amanda Rosario on 05-20-2023 Creatinine [Mass/Vol] 0.56 mg/dL 0.60-1.20 [facility] Eosinophils Auto (Bld) [#/Vo l]Ordered By: Amanda Rosario on 05-20-2023 Eosinophils (Bld) [#/Vol] 0.1 10*3/uL 0.0-0.45 [facility] Eosinophils/100 WBC Auto (Bl d)Ordered By: Amanda Rosario on 05-20-2023 Eosinophils/100 WBC (Bld) 0.6 % . [facility] Erythrocyte distribution wid th Auto (RBC) [Ratio]Ordered By: Amanda Rosario on 05-20-2023 Erythrocyte distribution width (RBC) [Ratio] 13.1 % 11.9-15.3 [facility] Globulin Calc (S) [Mass/Vol] Ordered By: Amanda Rosario on 05-20-2023 Globulin (S) [Mass/Vol] 2.3 g/dL [facility] Glucose [Mass/volume] in Ser um or PlasmaOrdered By: Amanda Rosario on 05-20-2023 Glucose [Mass/Vol] 72 mg/dL 70-100 [facility] Comment on above: ADA recommended refe rence rangeRandom Glucose Reference Range is dependent on time and content of last meal. Glucose of more than 200 mg/dL in a nonstressed, ambulatory subject supports the diagnosis of Diabetes Mellitus. Hematocrit Auto (Bld) [Volum e fraction]Ordered By: Amanda Rosario on 05-20-2023 Hematocrit (Bld) [Volume fraction] 34.7 % 34.0-46.4 [facility] Hemoglobin [Mass/volume] in BloodOrdered By: Amanda Rosario on 05-20-2023 Hemoglobin (Bld) [Mass/Vol] 12.0 g/dL 11.8-15.4 [facility] Leukocytes [#/volume] correc yanira for nucleated erythrocytes in Blood by Automated counOrdered By: Amanda Rosario on 05-20-2023 WBC corrected for nucl RBC Auto (Bld) [#/Vol] 10.3 10*3/uL 3.8-11.6 [facility] Lymphocytes Auto (Bld) [#/Vo l]Ordered By: Amanda Rosario on 05-20-2023 Lymphocytes (Bld) [#/Vol] 1.3 10*3/uL 1.00-4.8 [facility] Lymphocytes/100 WBC Auto (Bl d)Ordered By: Amanda Rosario on 05-20-2023 Lymphocytes/100 WBC (Bld) 12.8 % . [facility] MCH Auto (RBC) [Entitic mass ]Ordered By: Amanda Rosario on 05-20-2023 MCH (RBC) [Entitic mass] 31.5 pg 24.7-34.3 [facility] MCHC Auto (RBC) [Mass/Vol]Or dered By: Amanda Rosario on 05-20-2023 MCHC (RBC) [Mass/Vol] 34.6 g/dL 32.0-35.0 [facility] MCV Auto (RBC) [Entitic vol] Ordered By: Amanda Rosario on 05-20-2023 MCV (RBC) [Entitic vol] 91.1 fL 80-100 [facility] Monocytes Auto (Bld) [#/Vol] Ordered By: Amanda Rosario on 05-20-2023 Monocytes (Bld) [#/Vol] 0.7 10*3/uL 0.0-0.8 [facility] Monocytes/100 WBC Auto (Bld) Ordered By: Amanda Rosario on 05-20-2023 Monocytes/100 WBC (Bld) 6.4 % . [facility] Neutrophils Auto (Bld) [#/Vo l]Ordered By: Amanda Rosario on 05-20-2023 Neutrophils (Bld) [#/Vol] 8.2 10*3/uL 1.8-7.7 [facility] Neutrophils/100 WBC Auto (Bl d)Ordered By: Amanda Rosario on 05-20-2023 Neutrophils/100 WBC (Bld) 79.8 % . [facility] No Panel InformationOrdered By: Amanda Rosario on 05-20-2023 Adrenocorticotropic Hormone 10.8 pg/mL 7.2-63.3 [facility] Comment on above: ACTH reference inter cruz for samples collected between 7 and10 AM.Performed at: [facility] [id number] Director: Sai Smalls PhD, Phone: [phone] Estimated GFR (CKD-EPI) > 60.0 mL/Min [facility] Creatinine Clearance (Chem 154.92 [facility] Nucleated erythrocytes [Pres ence] in Blood by Automated countOrdered By: Amanda Rosario on 05-20-2023 Nucleated RBC Auto Ql (Bld) 0.2 /100{WBC} 0-0.5 [facility] Platelet mean volume Auto (B ld) [Entitic vol]Ordered By: Amanda Rosario on 05-20-2023 Platelet mean volume (Bld) [Entitic vol] 7.4 fL 6.3-10.7 [facility] Platelets Auto (Bld) [#/Vol] Ordered By: Amanda Rosario on 05-20-2023 Platelets (Bld) [#/Vol] 256 10*3/uL 150-450 [facility] Potassium [Moles/volume] in Serum or PlasmaOrdered By: Amanda Rosario on 05-20-2023 Potassium [Moles/Vol] 4.2 mmol/L 3.5-5.1 [facility] Protein [Mass/volume] in Ser um or PlasmaOrdered By: Amanda Rosario on 05-20-2023 Protein [Mass/Vol] 6.1 g/dL 6.4-8.9 [facility] RBC Auto (Bld) [#/Vol]Ordere d By: Amanda Rosario on 05-20-2023 RBC (Bld) [#/Vol] 3.81 10*6/uL 3.60-5.00 [facility] Serum or plasma albumin/glob ulin mass ratioOrdered By: Amanda Rosario on 05-20-2023 Albumin/Globulin [Mass ratio] 1.7 {ratio} [facility] Serum or plasma anion gap de terminationOrdered By: Amanda Rosario on 05-20-2023 Anion gap [Moles/Vol] 10.1 mmol/L 6.0-15.0 [facility] Sodium [Moles/volume] in Ser um or PlasmaOrdered By: Amanda Rosario on 05-20-2023 Sodium [Moles/Vol] 136 mmol/L 136-145 [facility] Thyrotropin [Units/volume] i n Serum or PlasmaOrdered By: Amanda Rosario on 05-20-2023 TSH Qn 1.31 m[IU]/L 0.45-5.33 [facility] Thyroxine (T4) free [Mass/vo lume] in Serum or PlasmaOrdered By: Amanda Rosario on 05-20-2023 Free T4 [Mass/Vol] 0.86 ng/dL 0.61-1.12 [facility] Triiodothyronine (T3) Free [ Mass/volume] in Serum or PlasmaOrdered By: Amanda Rosario on 05-20-2023 Free T3 [Mass/Vol] 2.91 pg/mL 2.50-3.90 [facility] Urea nitrogen [Mass/volume] in Serum or PlasmaOrdered By: Amanda Rosario on 05-20-2023 Urea nitrogen [Mass/Vol] 10 mg/dL 7-25 [facility] WBC Auto (Bld) [#/Vol]Ordere d By: Amanda Rosario on 05-20-2023 WBC (Bld) [#/Vol] 10.3 10*3/uL 3.8-11.6 [facility] HEP B SURFACE ANTIGEN SCREEN on 04-08-2023 HBsAg Screen Negative Normal Negative [facility] Comment on above: Performed By: #### T SH #### [facility] [address] [place] [address] [address] Beth Pineda HEPATITIS C VIRUS AB W/ REFL EX QUANTon 04-08-2023 HCV AB Non-Reactive Normal Non Reactive [facility] Comment on above: Performed By: #### H CVPCRR #### [facility] [address] [place] [address] [address] Beth Pineda HIV 1 AND 2 WITH REFLEXon HIV Screen 4th Generation wRfx Non-Reactive Normal Non Reactive [facility] Comment on above: Result Comment: HIV Negative HIV-1/HIV-2 antibodies and HIV-1 p24 antigen were NOT detected. There is no laboratory evidence of HIV infection. Performed By: #### H IV12 #### [facility] [address] [place] [address] Dr. Beth Pinead RPR QUANTon 04-08-2023 Rapid Plasma Reagin, Quant Non-Reactive Normal NonRea<1:1 [facility] Comment on above: Result Comment: Plea se Note: This test does not meet current guidelines for screening and diagnosis of syphilis. This test is intended for following treatment response in patients being treated for syphilis infection. To screen for syphilis infection, a reflex cascade that includes both RPR and a treponema-specific assay should be utilized, such as Treponema pallidum (Syphilis) Screening Hendricks (260489) or Rapid Plasma Reagin (RPR) Test With Reflex to Quantitative RPR and Confirmatory Treponema pallidum Antibodies (998027). Performed By: #### R PRQ #### [facility] [address] [place] [address] Dr. Beth Pineda RUBELLA AB IGGon 04-08-2023 Rubella Antibodies, IgG 1.35 index Normal Immu ne >0.99 [facility] Comment on above: Result Comment: Non- immune <0.90 Equivocal 0.90 - 0.99 Immune >0.99 Performed By: #### R UBIGG #### [facility] [address] [place] [address] Dr. Beth Pineda BOX TEST SENT OUTon 04-07-20 SENT TO REF LAB 04/07/23 Normal [facility] Comment on above: Performed By: #### B OX #### [facility] [address] [place] [address] Dr. Beth Pineda CBC AUTO DIFFon 04-07-2023 BASO # 0.1 103/ul Normal 0.0-0.1 [facility] Comment on above: Performed By: #### C BC #### [facility] [address] [place] [address] Dr. Beth Pineda Basophils/100 WBC (Bld) 0.7 % Normal 0.2-2.0 [facility] Comment on above: Performed By: #### C BC #### [facility] [address] [place] [address] Dr. Beth Pineda EO # 0.1 103/ul Normal 0.0-0.7 [facility] Comment on above: Performed By: #### C BC #### [facility] [address] [place] [address] Dr. Beth Pineda Eosinophils/100 WBC (Bld) 1.1 % Normal 0.9-7.0 [facility] Comment on above: Performed By: #### C BC #### [facility] [address] [place] [address] Dr. Beth Pineda Erythrocyte distribution width (RBC) [Ratio] 12.5 % Normal 11.0-15.0 [facility] Comment on above: Performed By: #### C BC #### [facility] [address] [place] [address] Dr. Beth Pineda Hematocrit (Bld) [Volume fraction] 37.8 % Normal 36.0-48.0 [facility] Comment on above: Performed By: #### C BC #### [facility] [address] [place] [address] Dr. Beth Pineda Hemoglobin (Bld) [Mass/Vol] 13.1 g/dL Normal 12.0-16.0 [facility] Comment on above: Performed By: #### C BC #### [facility] [address] [place] [address] Dr. Beth Pineda IG # 0.02 10e3/ul Normal 0.00-0.03 [facility] Comment on above: Performed By: #### C BC #### [facility] [address] [place] [address] Dr. Beth Pineda IG % 0.3 % Normal 0.0-0.5 [facility] Comment on above: Performed By: #### C BC #### [facility] [address] [place] [address] Dr. Beth Pineda LYMPH # 1.5 103/ul Normal 1.2-3.8 [facility] Comment on above: Performed By: #### C BC #### [facility] [address] [place] [address] Dr. Beth Pineda Lymphocytes/100 WBC (Bld) 19.9 % Critically low 20.5-60.0 [facility] Comment on above: Performed By: #### C BC #### [facility] [address] [place] [address] Dr. Beth Pineda MANUAL DIFF REQ NO Normal [facility] Comment on above: Performed By: #### C BC #### [facility] [address] [place] [address] Dr. Beth Pineda MCH (RBC) [Entitic mass] 31.3 pg Normal 26.7-34.0 [facility] Comment on above: Performed By: #### C BC #### [facility] [address] [place] [address] Dr. Beth Pineda MCHC (RBC) [Mass/Vol] 34.7 g/dL Normal 29.9-35.2 [facility] Comment on above: Performed By: #### C BC #### [facility] [address] [place] [address] Dr. Beth Pineda MCV (RBC) [Entitic vol] 90.2 fL Normal 81.0-99.0 [facility] Comment on above: Performed By: #### C BC #### [facility] [address] [place] [address] Dr. Beth Pineda MONO # 0.5 103/ul Normal 0.3-0.8 [facility] Comment on above: Performed By: #### C BC #### [facility] [address] [place] [address] Dr. Beth Pineda Monocytes/100 WBC (Bld) 6.1 % Normal 1.7-12.0 [facility] Comment on above: Performed By: #### C BC #### [facility] [address] [place] [address] Dr. Beth Pineda NEUT # 5.4 103/ul Normal 1.4-6.5 [facility] Comment on above: Performed By: #### C BC #### [facility] [address] [address] [address] Beth Pineda Neutrophils/100 WBC (Bld) 71.9 % Normal 43.0-75.0 [facility] Comment on above: Performed By: #### C BC #### [facility] [address] [address] [address] Beth Pineda Platelet mean volume (Bld) [Entitic vol] 8.9 fL Critically low 9.5-13.5 [facility] Comment on above: Performed By: #### C BC #### [facility] [address] [place] [address] Dr. Beth Pineda PLT 272 103/ul Normal 150-450 [facility] Comment on above: Performed By: #### C BC #### [facility] [address] [place] [address] Dr. Beth Pineda RBC 4.19 106/ul Critically low 4.20-5.40 [facility] Comment on above: Performed By: #### C BC #### [facility] [address] [place] [address] Dr. Beth Pineda WBC 7.5 103/ul Normal 4.0-11.0 [facility] Comment on above: Performed By: #### C BC #### [facility] [address] [place] [address] Dr. Beth Pineda CULTURE URINEon 04-07-2023 CULTURE URINE Culture Observations : NO GROWTH. Normal [facility] Comment on above: Performed By: #### T SH #### [facility] [address] [place] [address] Dr. Beth Pineda GLYCOHEMOGLOBIN A1Con 2022 ADA RECOMMENDATION SEE BELOW Normal [facility] Comment on above: Result Comment: ADA RECOMMENDED LIMIT 4.0 - 6.0 ADA THERAPEUTIC TARGET < 7.0 ACTION SUGGESTED > 7.0 Performed By: #### A 1C #### [facility] [address] [place] [address] Dr. Beth Pineda Glucose [Mass/Vol] 82 mg/dL Normal [facility] Comment on above: Performed By: #### A 1C #### [facility] [address] [address] [address] Beth Pineda HbA1c (Bld) [Mass fraction] 4.5 % Normal 4.5-6.2 [facility] Comment on above: Performed By: #### A 1C #### [facility] [address] [place] [address] Dr. Beth Pineda TSHon 04-07-2023 TSH 2.191 uIU/mL Normal 0.358-3.740 [facility] Comment on above: Performed By: #### T SH #### [facility] [address] [place] [address] Dr. Beth Pineda TYPE AND SCREENon 04-07-2023 TYPE AND SCREEN Negative Normal [facility] Comment on above: Performed By: #### T SH #### [facility] [address] [place] [address] Dr. Beth Pineda US PREG TVon 03-13-2023 [...] MORE FARLEY Date: 2023-03-13 09:37 Normal [facility] PREG QUANT HCGon 02-27-2023 HCG QUANT 33171 mIU/mL Normal [facility] Comment on above: Performed By: #### A 1C #### [facility] [address] [place] [address] Dr. Beth Pineda HCG RANGE SEE BELOW Normal [facility] Comment on above: Result Comment: 5-50 0.2-1 WEEK 50-500 1-2 WEEKS 100-5,000 2-3 WEEKS 500-10,000 3-4 WEEKS 1,000-50,000 4-5 WEEKS 10,000-100,000 5-6 WEEKS 15,000-200,000 6-8 WEEKS 10,000-100,000 2-3 MONTHS Performed By: #### A 1C #### [facility] [address] [place] [address] Dr. Beth Pineda PREG QUANT HCGon 02-11-2023 HCG QUANT 57 mIU/mL Normal [facility] Comment on above: Performed By: #### A 1C #### [facility] [address] [place] [address] Dr. Beth Pineda HCG RANGE SEE BELOW [facility] Comment on above: Result Comment: 5-50 0.2-1 WEEK 50-500 1-2 WEEKS 100-5,000 2-3 WEEKS 500-10,000 3-4 WEEKS 1,000-50,000 4-5 WEEKS 10,000-100,000 5-6 WEEKS 15,000-200,000 6-8 WEEKS 10,000-100,000 2-3 MONTHS Performed By: #### A 1C #### [facility] [address] [place] [address] Dr. Beth Pineda PREG QUANT HCGon 02-09-2023 HCG QUANT 14 mIU/mL Normal [facility] Comment on above: Performed By: #### P REGQNT #### [facility] [address] [place] [address] Dr. Beth Pineda HCG RANGE SEE BELOW [facility] Comment on above: Result Comment: 5-50 0.2-1 WEEK 50-500 1-2 WEEKS 100-5,000 2-3 WEEKS 500-10,000 3-4 WEEKS 1,000-50,000 4-5 WEEKS 10,000-100,000 5-6 WEEKS 15,000-200,000 6-8 WEEKS 10,000-100,000 2-3 MONTHS Performed By: #### P REGQNT #### [facility] [address] [place] [address] Dr. Beth Pineda ANTI-MULLERIAN HORMONEon Anti-Mullerian Hormone (AMH) 12.5 ng/mL Normal [facility] Comment on above: Result Comment: For assays employing antibodies, the possibility exists for interference by heterophile antibodies in the samples.1 1.Tanja Rendon Interferences in Immunoassays - still a threat. Clin. Chem. 2000; 46: 5661-8044. This test was developed and its performance characteristics determined by [employer]. It has not been cleared or approved by the Food and Drug Administration. Reference Range: Females 20 - 25y: 1.23 - 11.51 Median 4.70 AMH concentrations of >= 1.06 ng/mL is correlated with a better response to ovarian stimulation, produced more retrievable oocytes and higher odds of live according to Erikaer et al. Fertility and Sterility. 2010: 94:4687-8978. The current AMH test method correlates with [...] tumor. Performed By: #### T SH #### [facility] [address] [place] [address] Dr. Beth Pineda PAP ACOG PANEL 2: 21 to 29on 01-20-2023 . . Normal [facility] Comment on above: Performed By: #### T SH #### [facility] [address] [place] [address] Dr. Beth Pineda Age Gdln ACOG Testing 21-29 Normal [facility] Comment on above: Performed By: #### T SH #### [facility] [address] [place] [address] Dr. Beth Pineda DIAGNOSIS: Comment [facility] Comment on above: Result Comment: NEGA TIVE FOR INTRAEPITHELIAL LESION OR MALIGNANCY. Performed By: #### T SH #### [facility] [address] [place] [address] Dr. Beth Pineda Methodology: Comment Normal [facility] Comment on above: Result Comment: This liquid based ThinPrep(R) pap test was screened with the use of an image guided system. Performed By: #### T SH #### [facility] [address] [place] [address] Dr. Beth Pineda Note: Comment Normal [facility] Comment on above: Result Comment: The Pap smear is a screening test designed to aid in the detection of premalignant and malignant conditions of the uterine cervix. It is not a diagnostic procedure and should not be used as the sole means of detecting cervical cancer. Both false-positive and false-negative reports do occur. . Performed By: #### T SH #### [facility] [address] [place] [address] Dr. Beth Pineda Performed by: Comment Normal [facility] Comment on above: Result Comment: Pato Gonzalez, Fraud Investigator (ASCP) Performed By: #### T SH #### [facility] [address] [place] [address] Dr. Beth Pineda Reflex Criteria: Comment Normal [facility] Comment on above: Result Comment: The HPV DNA reflex criteria were not met with this specimen result therefore, no HPV testing was performed. . Performed By: #### T SH #### [facility] [address] [place] [address] Dr. Beth Pineda Specimen adequacy: Comment Normal [facility] Comment on above: Result Comment: Sati sfactory for evaluation. Endocervical and/or squamous metaplastic cells (endocervical component) are present. Performed By: #### T SH #### [facility] [address] [place] [address] Dr. Beth Pineda Albumin [Mass/volume] in Ser um or PlasmaOrdered By: Amanda Rosario on 01-09-2023 Albumin [Mass/Vol] 4.3 g/dL 3.2-5.5 [facility] Alkaline phosphatase [Enzyma tic activity/volume] in Serum or PlasmaOrdered By: Amanda Rosario on 01-09-2023 ALP [Catalytic activity/Vol] 54 U/L 32-92 [facility] Aspartate aminotransferase [ Enzymatic activity/volume] in Serum or PlasmaOrdered By: Amanda Rosario on 01-09-2023 AST [Catalytic activity/Vol] 21 U/L 10-42 [facility] Basophils Auto (Bld) [#/Vol] Ordered By: Amanda Rosario on 01-09-2023 Basophils (Bld) [#/Vol] 0.0 10*3/uL 0.0-0.2 [facility] Basophils/100 WBC Auto (Bld) Ordered By: Amanda Rosario on 01-09-2023 Basophils/100 WBC (Bld) 0.7 % . [facility] Bilirubin.total [Mass/volume ] in Serum or PlasmaOrdered By: Amanda Rosario on 01-09-2023 Bilirubin [Mass/Vol] 0.7 mg/dL 0.3-1.[address] [facility] [address] biopsyOrdered By: Amanda Nino se on 01-09-2023 Transferrin [Mass/Vol] 265 mg/dL 180-380 [facility] Calcium [Mass/volume] in Ser um or PlasmaOrdered By: Amanda Rosario on 01-09-2023 Calcium [Mass/Vol] 9.6 mg/dL 8.2-10.2 [facility] Carbon dioxide, total [Moles /volume] in Serum or PlasmaOrdered By: Amanda Rosario on 01-09-2023 CO2 [Moles/Vol] 27.2 mmol/L 22.0-30.0 [facility] Chloride [Moles/volume] in [place] or PlasmaOrdered By: Amanda Rosario on 01-09-2023 Chloride [Moles/Vol] 104 mmol/L 95-114 [facility] Creatinine and Glomerular fi ltration rate.predicted panel (S/P/Bld)Ordered By: Amanda Rosario on 01-09-2023 Creatinine [Mass/Vol] 0.72 mg/dL 0.44-1.03 [facility] Eosinophils Auto (Bld) [#/Vo l]Ordered By: Amanda Rosario on 01-09-2023 Eosinophils (Bld) [#/Vol] 0.1 10*3/uL 0.0-0.45 [facility] Eosinophils/100 WBC Auto (Bl d)Ordered By: Amanda Rosario on 01-09-2023 Eosinophils/100 WBC (Bld) 1.3 % . [facility] Erythrocyte distribution wid th Auto (RBC) [Ratio]Ordered By: Amanda Rosario on 01-09-2023 Erythrocyte distribution width (RBC) [Ratio] 13.1 % 11.9-15.3 [facility] Estimated glomerular filtrat ion rate (GFR) non- AmericanOrdered By: Amanda Rosario on 01-09-2023 GFR/1.73 sq M.predicted among non-blacks MDRD (S/P/Bld) [Vol rate/Area] > 60 mL/Min [facility] Ferritin [Mass/volume] in Se rum or PlasmaOrdered By: Amanda Rosario on 01-09-2023 Ferritin [Mass/Vol] 13.4 ng/mL 11-306.8 [facility] Globulin Calc (S) [Mass/Vol] Ordered By: Amanda Rosario on 01-09-2023 Globulin (S) [Mass/Vol] 2.3 g/dL [facility] Glucose [Mass/volume] in Ser um or PlasmaOrdered By: Amanda Rosario on 01-09-2023 Glucose [Mass/Vol] 80 mg/dL 70-100 [facility] Comment on above: ADA recommended refe rence rangeRandom Glucose Reference Range is dependent on time and content of last meal. Glucose of more than 200 mg/dL in a nonstressed, ambulatory subject supports the diagnosis of Diabetes Mellitus. Hematocrit Auto (Bld) [Volum e fraction]Ordered By: Amanda Rosario on 01-09-2023 Hematocrit (Bld) [Volume fraction] 39.5 % 34.0-46.4 [facility] Hemoglobin [Mass/volume] in BloodOrdered By: Amanda Rosario on 01-09-2023 Hemoglobin (Bld) [Mass/Vol] 13.1 g/dL 11.8-15.4 [facility] Iron [Mass/volume] in Serum or PlasmaOrdered By: Amanda Rosario on 01-09-2023 Iron [Mass/Vol] 75 ug/dL 40-150 [facility] Iron binding capacity [Mass/ volume] in Serum or PlasmaOrdered By: Amanda Rosario on 01-09-2023 Iron binding capacity [Mass/Vol] 371 ug/dL 255-450 [facility] Iron saturation [Mass Fracti on] in Serum or PlasmaOrdered By: Amanda Rosario on 01-09-2023 Iron saturation [Mass fraction] 20.2 % 20-50 [facility] Lactate dehydrogenase measur ement (enzymatic activity/volume)Ordered By: Ale Kira on 01-09-2023 LDH (Unsp spec) [Catalytic activity/Vol] 145 U/L 45-190 [facility] Leukocytes [#/volume] correc yanira for nucleated erythrocytes in Blood by Automated counOrdered By: Amanda Rosario on 01-09-2023 WBC corrected for nucl RBC Auto (Bld) [#/Vol] 4.8 10*3/uL 3.8-11.6 [facility] Lymphocytes Auto (Bld) [#/Vo l]Ordered By: Amanda Rosario on 01-09-2023 Lymphocytes (Bld) [#/Vol] 1.0 10*3/uL 1.00-4.8 [facility] Lymphocytes/100 WBC Auto (Bl d)Ordered By: Amanda Rosario on 01-09-2023 Lymphocytes/100 WBC (Bld) 20.2 % . [facility] MCH Auto (RBC) [Entitic mass ]Ordered By: Aamnda Rosario on 01-09-2023 MCH (RBC) [Entitic mass] 30.0 pg 24.7-34.3 [facility] MCHC Auto (RBC) [Mass/Vol]Or dered By: Amanda Rosario on 01-09-2023 MCHC (RBC) [Mass/Vol] 33.2 g/dL 32.0-35.0 [facility] MCV Auto (RBC) [Entitic vol] Ordered By: Amanda Rosario on 01-09-2023 MCV (RBC) [Entitic vol] 90.3 fL 80-100 [facility] Monocytes Auto (Bld) [#/Vol] Ordered By: Amanda Rosario on 01-09-2023 Monocytes (Bld) [#/Vol] 0.5 10*3/uL 0.0-0.8 [facility] Monocytes/100 WBC Auto (Bld) Ordered By: Amanda Rosario on 01-09-2023 Monocytes/100 WBC (Bld) 10.5 % . [facility] Neutrophils Auto (Bld) [#/Vo l]Ordered By: Amanda Rosario on 01-09-2023 Neutrophils (Bld) [#/Vol] 3.2 10*3/uL 1.8-7.7 [facility] Neutrophils/100 WBC Auto (Bl d)Ordered By: Amanda Rosario on 01-09-2023 Neutrophils/100 WBC (Bld) 67.3 % . [facility] No Panel InformationOrdered By: Amanda Rosario on 01-09-2023 Estimated GFR () > 60 mL/Min [facility] Comment on above: GFR estimated refere nce range: According to KDOQI guidelines, <60 ml/min/1.73m2 is sufficient to diagnose a patient with chronic kidney disease. Pharmacy Creatinine Clearance (Chem 120.49 [facility] Nucleated erythrocytes [Pres ence] in Blood by Automated countOrdered By: Amanda Rosario on 01-09-2023 Nucleated RBC Auto Ql (Bld) 0.1 /100{WBC} 0-0.5 [facility] Platelet mean volume Auto (B ld) [Entitic vol]Ordered By: Amanda Rosario on 01-09-2023 Platelet mean volume (Bld) [Entitic vol] 7.9 fL 6.3-10.7 [facility] Platelets Auto (Bld) [#/Vol] Ordered By: Amanda Rosario on 01-09-2023 Platelets (Bld) [#/Vol] 290 10*3/uL 150-450 [facility] Potassium [Moles/volume] in Serum or PlasmaOrdered By: Amanda Rosario on 01-09-2023 Potassium [Moles/Vol] 4.4 mmol/L 3.5-5.1 [facility] Protein [Mass/volume] in Ser um or PlasmaOrdered By: Amanda Rosario on 01-09-2023 Protein [Mass/Vol] 6.6 g/dL 6.1-7.9 [facility] RBC Auto (Bld) [#/Vol]Ordere d By: Amanda Rosario on 01-09-2023 RBC (Bld) [#/Vol] 4.37 10*6/uL 3.60-5.00 [facility] Serum or plasma alanine green otransferase measurement without P-5'-P (enzymatic activiOrdered By: Amanda Rosario on 01-09-2023 ALT No additional P-5'-P [Catalytic activity/Vol] 20 U/L 10-60 [facility] Serum or plasma albumin/glob ulin mass ratioOrdered By: Amanda Rosario on 01-09-2023 Albumin/Globulin [Mass ratio] 1.9 {ratio} [facility] Serum or plasma anion gap de terminationOrdered By: Amanda Rosario on 01-09-2023 Anion gap [Moles/Vol] 10.2 mmol/L 6.0-15.0 [facility] Sodium [Moles/volume] in Ser um or PlasmaOrdered By: Amanda Rosario on 01-09-2023 Sodium [Moles/Vol] 137 mmol/L 136-146 [facility] Urea nitrogen [Mass/volume] in Serum or PlasmaOrdered By: Amanda Rosario on 01-09-2023 Urea nitrogen [Mass/Vol] 13 mg/dL 9 [facility] WBC Auto (Bld) [#/Vol]Ordere d By: Amanda Rosario on 01-09-2023 WBC (Bld) [#/Vol] 4.8 10*3/uL 3.8-11.6 [facility] CBC AUTO DIFFon 12-31-2022 BASO # 0.1 103/ul Normal 0.0-0.1 [facility] Comment on above: Performed By: #### C BC #### [facility] [address] [place] [address] Dr. Beth Pineda Basophils/100 WBC (Bld) 1.2 % Normal 0.2-2.0 [facility] Comment on above: Performed By: #### C BC #### [facility] [address] [place] [address] Dr. Beth Pineda EO # 0.1 103/ul Normal 0.0-0.7 [facility] Comment on above: Performed By: #### C BC #### [facility] [address] [place] [address] Dr. Beth Pineda Eosinophils/100 WBC (Bld) 2.1 % Normal 0.9-7.0 [facility] Comment on above: Performed By: #### C BC #### [facility] [address] [place] [address] Dr. Beth Pineda Erythrocyte distribution width (RBC) [Ratio] 12.9 % Normal 11.0-15.0 [facility] Comment on above: Performed By: #### C BC #### [facility] [address] [place] [address] Dr. Beth Pineda Hematocrit (Bld) [Volume fraction] 41.2 % Normal 36.0-48.0 [facility] Comment on above: Performed By: #### C BC #### [facility] [address] [place] [address] Dr. Beth Pineda Hemoglobin (Bld) [Mass/Vol] 13.5 g/dL Normal 12.0-16.0 [facility] Comment on above: Performed By: #### C BC #### [facility] [address] [place] [address] Dr. Beth Pineda IG # 0.01 10e3/ul Normal 0.00-0.03 [facility] Comment on above: Performed By: #### C BC #### [facility] [address] [place] [address] Dr. Beth Pineda IG % 0.2 % Normal 0.0-0.5 [facility] Comment on above: Performed By: #### C BC #### [facility] [address] [place] [address] Dr. Beth Pineda LYMPH # 1.6 103/ul Normal 1.2-3.8 [facility] Comment on above: Performed By: #### C BC #### [facility] [address] [place] [address] Dr. Beth Pineda Lymphocytes/100 WBC (Bld) 29.9 % Normal 20.5-60.0 [facility] Comment on above: Performed By: #### C BC #### [facility] [address] [place] [address] Dr. Beth Pineda MANUAL DIFF REQ NO Normal [facility] Comment on above: Performed By: #### C BC #### [facility] [address] [place] [address] Dr. Beth Pineda MCH (RBC) [Entitic mass] 30.3 pg Normal 26.7-34.0 [facility] Comment on above: Performed By: #### C BC #### [facility] [address] [place] [address] Dr. Beth Pineda MCHC (RBC) [Mass/Vol] 32.8 g/dL Normal 29.9-35.2 [facility] Comment on above: Performed By: #### C BC #### [facility] [address] [place] [address] Dr. Beth Pineda MCV (RBC) [Entitic vol] 92.6 fL Normal 81.0-99.0 [facility] Comment on above: Performed By: #### C BC #### [facility] [address] [place] [address] Dr. Beth Pineda MONO # 0.4 103/ul Normal 0.3-0.8 [facility] Comment on above: Performed By: #### C BC #### [facility] [address] [place] [address] Dr. Beth Pineda Monocytes/100 WBC (Bld) 7.9 % Normal 1.7-12.0 [facility] Comment on above: Performed By: #### C BC #### [facility] [address] [place] [address] Dr. Beth Pineda NEUT # 3.0 103/ul Normal 1.4-6.5 [facility] Comment on above: Performed By: #### C BC #### [facility] [address] [place] [address] Dr. Beth Pineda Neutrophils/100 WBC (Bld) 58.7 % Normal 43.0-75.0 [facility] Comment on above: Performed By: #### C BC #### [facility] [address] [place] [address] Dr. Beth Pineda Platelet mean volume (Bld) [Entitic vol] 9.3 fL Critically low 9.5-13.5 [facility] Comment on above: Performed By: #### C BC #### [facility] [address] [place] [address] Dr. Beth Pineda PLT 304 103/ul Normal 150-450 [facility] Comment on above: Performed By: #### C BC #### [facility] [address] [place] [address] Dr. Beth Pineda RBC 4.45 106/ul Normal 4.20-5.40 [facility] Comment on above: Performed By: #### C BC #### [facility] [address] [place] [address] Dr. Beth Pineda WBC 5.2 103/ul Normal 4.0-11.0 [facility] Comment on above: Performed By: #### C BC #### [facility] [address] [place] [address] Dr. Beth Pineda GLYCOHEMOGLOBIN A1Con 2022 ADA RECOMMENDATION SEE BELOW Normal [facility] Comment on above: Result Comment: ADA RECOMMENDED LIMIT 4.0 - 6.0 ADA THERAPEUTIC TARGET < 7.0 ACTION SUGGESTED > 7.0 Performed By: #### T SH #### [facility] [address] [place] [address] Dr. Beth Pineda Glucose [Mass/Vol] 91 mg/dL Normal [facility] Comment on above: Performed By: #### T SH #### [facility] [address] [place] [address] Dr. Beth Pineda HbA1c (Bld) [Mass fraction] 4.8 % Normal 4.5-6.2 [facility] Comment on above: Performed By: #### T SH #### [facility] [address] [place] [address] Dr. Beth Pineda LIPID PROFILEon 12-31-2022 CHOL-HDL RATIO NORM SEE BELOW Normal [facility] Comment on above: Result Comment: 3.3 - 4.4 LOW RISK 4.4 - 7.1 AVERAGE RISK 7.1 - 11.0 MODERATE RISK >11.0 HIGH RISK Performed By: #### A 1C #### [facility] [facility] [address] [place], [place] [address] Dr. Beth Pineda Cholesterol [Mass/Vol] 180 mg/dL Normal <=200 Th [facility] Comment on above: Performed By: #### A 1C #### [facility] [address] [place], [place] [address] Dr. Beth Pnieda Cholesterol in HDL [Mass/Vol] 106 mg/dL Critically high 40-60 [facility] Comment on above: Performed By: #### A 1C #### [facility] [address] [place] [address] [address] Beth Pineda Cholesterol in LDL [Mass/Vol] 66.6 mg/dL Normal [facility] Comment on above: Performed By: #### A 1C #### [facility] [address] [place] [address] [address] Beth Pineda Cholesterol.total/Elida sterol in HDL [Mass ratio] 1.7 {ratio} Normal [facility] Comment on above: Performed By: #### A 1C #### [facility] [address] [place] [address] [address] Beth Pineda HDL NORMAL > or = 60 mg/dl - LO W CARDIOVASCULAR RISK <40 mg/dl - HIGH CARDIOVASCULAR RISK Normal [facility] Comment on above: Performed By: #### A 1C #### [facility] [address] [place] [address] [address] Beth Pineda LDL CALC NORMAL SEE BELOW Normal [facility] Comment on above: Result Comment: <100 mg/dl OPTIMAL 100 - 129 mg/dl NEAR OR ABOVE OPTIMAL 130 - 159 mg/dl BORDERLINE HIGH 160 - 189 mg/dl HIGH >190 mg/dl VERY HIGH Performed By: #### A 1C #### [facility] [address] [place] [address] [address] Beth Pineda Triglyceride [Mass/Vol] 37 mg/dL Normal <=150 T [facility] Comment on above: Performed By: #### A 1C #### [facility] [address] [place] [address] [address] Beth Pineda VLDL CALC 7.4 mg/dL Normal [facility] Comment on above: Performed By: #### A 1C #### [facility] [address] [place] [address] Dr. Beth Pineda PROF 14(COMP METB)on 023 Albumin [Mass/Vol] 4.3 g/dL Normal 3.4-5.0 [facility] Comment on above: Performed By: #### T SH #### [facility] [address] [place] [address] Dr. Beth Pineda Albumin/Globulin [Mass ratio] 1.3 {ratio} Normal [facility] Comment on above: Performed By: #### T SH #### [facility] [address] [place] [address] Dr. Beth Pineda ALP [Catalytic activity/Vol] 68 U/L Normal 46-116 [facility] Comment on above: Performed By: #### T SH #### [facility] [address] [place] [address] Dr. Beth Pineda ALT [Catalytic activity/Vol] 21 U/L Normal 14-59 [facility] Comment on above: Performed By: #### T SH #### [facility] [address] [place] [address] Dr. Beth Pineda Anion gap [Moles/Vol] 12.1 mmol/L Normal [facility] Comment on above: Performed By: #### T SH #### [facility] [address] [place] [address] Dr. Beth Pineda AST [Catalytic activity/Vol] 10 U/L Critically low 15-37 [facility] Comment on above: Performed By: #### T SH #### [facility] [address] [place] [address] Dr. Beth Pineda Bilirubin [Mass/Vol] 0.6 mg/dL Normal 0.2-1.0 [facility] Comment on above: Performed By: #### T SH #### [facility] [address] [place] [address] Dr. Beth Pineda Calcium [Mass/Vol] 9.2 mg/dL Normal 8.5-10.1 [facility] Comment on above: Performed By: #### T SH #### [facility] [address] [place] [address] Dr. Beth Pineda Chloride [Moles/Vol] 103 mmol/L Normal 98-107 [facility] Comment on above: Performed By: #### T SH #### [facility] [address] [place] [address] Dr. Beth Pineda CO2 [Moles/Vol] 28.0 mmol/L Normal 21.0-32.[address] [facility] Comment on above: Performed By: #### T SH #### [facility] [address] [place] [address] Dr. Beth Pineda Creatinine [Mass/Vol] 0.73 mg/dL Normal 0.55-1.02 [facility] Comment on above: Performed By: #### T SH #### [facility] [address] [place] [address] Dr. Beth Pineda EGFR-AF SALVADOREAN >60 Normal >=[address] [facility] Comment on above: Performed By: #### T SH #### [facility] [address] [place] [address] Dr. Beth Pineda EGFR-NON AF SALVADOREAN >60 Normal >=60 [facility] Comment on above: Performed By: #### T SH #### [facility] [address] [place] [address] Dr. Beth Pineda Globulin (S) [Mass/Vol] 3.2 g/dL Normal [facility] Comment on above: Performed By: #### T SH #### [facility] [address] [place] [address] Dr. Beth Pineda Glucose [Mass/Vol] 89 mg/dL Normal 74-106 [facility] Comment on above: Performed By: #### T SH #### [facility] [address] [place] [address] Dr. Beth Pineda Potassium [Moles/Vol] 4.1 mmol/L Normal 3.5-5.1 [facility] Comment on above: Performed By: #### T SH #### [facility] [address] [place] [address] Dr. Beth Pineda Protein [Mass/Vol] 7.5 g/dL Normal 6.4-8.2 [facility] Comment on above: Performed By: #### T SH #### [facility] [address] [place] [address] [address] Beth Pineda Sodium [Moles/Vol] 139 mmol/L Normal 136-145 [facility] Comment on above: Performed By: #### T SH #### [facility] [address] [place] [address] [address] Beth Pineda Urea nitrogen [Mass/Vol] 10.0 mg/dL Normal 7.0-18.0 [facility] Comment on above: Performed By: #### T SH #### [facility] [address] [place] [address] Dr. Beth Pineda Urea nitrogen/Creatinine [Mass ratio] 13.7 mg/mg Normal [facility] Comment on above: Performed By: #### T SH #### [facility] [address] [place] [address] Dr. Beth Pineda TSHon 12-31-2022 TSH 3.121 uIU/mL Normal 0.358-3.740 [facility] Comment on above: Performed By: #### A 1C #### [facility] [address] [place] [address] Dr. Beth Pineda Albumin [Mass/volume] in Ser um or PlasmaOrdered By: Amanda Rosario on 07-08-2022 Albumin [Mass/Vol] 3.9 g/dL 3.2-5.5 [facility] Basophils Auto (Bld) [#/Vol] Ordered By: Amanda Rosario on 07-08-2022 Basophils (Bld) [#/Vol] 0.1 10*3/uL 0.0-0.2 [facility] Basophils/100 WBC Auto (Bld) Ordered By: Amanda Rosario on 07-08-2022 Basophils/100 WBC (Bld) 1.3 % . [facility] Blood hemoglobin measurement (mass/volume)Ordered By: Amanda Rosario on 07-08-2022 Hemoglobin (Bld) [Mass/Vol] 14.2 g/dL 11.8-15.4 [facility] Blood leukocytes automated c ount (number/volume)Ordered By: Amanda Rosario on 07-08-2022 WBC (Bld) [#/Vol] 5.6 10*3/uL 4.5-11.0 [facility] CT biopsyOrdered By: Amanda Nino se on 07-08-2022 Transferrin [Mass/Vol] 346 mg/dL 180-380 [facility] Creatinine and Glomerular fi ltration rate.predicted panel (S/P/Bld)Ordered By: Amanda Rosario on 07-08-2022 Creatinine [Mass/Vol] 0.78 mg/dL 0.44-1.03 [facility] Eosinophils Auto (Bld) [#/Vo l]Ordered By: Amanda Rosario on 07-08-2022 Eosinophils (Bld) [#/Vol] 0.1 10*3/uL 0.0-0.45 [facility] Eosinophils/100 WBC Auto (Bl d)Ordered By: Amanda Rosario on 07-08-2022 Eosinophils/100 WBC (Bld) 1.2 % . [facility] Erythrocyte distribution wid th Auto (RBC) [Ratio]Ordered By: Amanda Rosario on 07-08-2022 Erythrocyte distribution width (RBC) [Ratio] 12.4 % 11.9-15.3 [facility] Estimated glomerular filtrat ion rate (GFR) non- AmericanOrdered By: Amanda Rosario on 07-08-2022 GFR/1.73 sq M.predicted among non-blacks MDRD (S/P/Bld) [Vol rate/Area] > 60 mL/Min [facility] Ferritin [Mass/volume] in Se rum or PlasmaOrdered By: Amanda Rosario on 07-08-2022 Ferritin [Mass/Vol] 9.6 ng/mL 11-306.8 [facility] Globulin Calc (S) [Mass/Vol] Ordered By: Amanda Rosario on 07-08-2022 Globulin (S) [Mass/Vol] 2.9 g/dL [facility] Hematocrit Auto (Bld) [Volum e fraction]Ordered By: Amanda Rosario on 07-08-2022 Hematocrit (Bld) [Volume fraction] 42.7 % 34.0-46.4 [facility] Iron [Mass/volume] in Serum or PlasmaOrdered By: Amanda Rosario on 07-08-2022 Iron [Mass/Vol] 173 ug/dL 40-150 [facility] Iron binding capacity [Mass/ volume] in Serum or PlasmaOrdered By: Amanda Rosario on 07-08-2022 Iron binding capacity [Mass/Vol] 484 ug/dL 255-450 [facility] Iron saturation [Mass Fracti on] in Serum or PlasmaOrdered By: Amanda Rosario on 07-08-2022 Iron saturation [Mass fraction] 35.0 % 20-50 [facility] - Hematology and Cell countsOrdered By: Amanda Rosario on 07-08-2022 Nucleated RBC/100 WBC (Bld) [Ratio] 0.2 % 0-0.5 [facility] Lactate dehydrogenase measur ement (enzymatic activity/volume)Ordered By: Amanda Rosario on 07-08-2022 LDH (Unsp spec) [Catalytic activity/Vol] 154 U/L 45-190 [facility] Lymphocytes Auto (Bld) [#/Vo l]Ordered By: Amanda Rosario on 07-08-2022 Lymphocytes (Bld) [#/Vol] 1.5 10*3/uL 1.00-4.8 [facility] Lymphocytes/100 WBC Auto (Bl d)Ordered By: Amanda Rosario on 07-08-2022 Lymphocytes/100 WBC (Bld) 26.6 % . [facility] MCH Auto (RBC) [Entitic mass ]Ordered By: Amanda Rosario on 07-08-2022 MCH (RBC) [Entitic mass] 29.7 pg 24.7-34.3 [facility] MCHC Auto (RBC) [Mass/Vol]Or dered By: Amanda Rosario on 07-08-2022 MCHC (RBC) [Mass/Vol] 33.3 g/dL 32.0-35.0 [facility] MCV Auto (RBC) [Entitic vol] Ordered By: Amanda Rosario on 07-08-2022 MCV (RBC) [Entitic vol] 89.4 fL 80-100 [facility] Monocytes Auto (Bld) [#/Vol] Ordered By: Amanda Rosario on 07-08-2022 Monocytes (Bld) [#/Vol] 0.5 10*3/uL 0.0-0.8 [facility] Monocytes/100 WBC Auto (Bld) Ordered By: Amanda Rosario on 07-08-2022 Monocytes/100 WBC (Bld) 9.7 % . [facility] Neutrophils Auto (Bld) [#/Vo l]Ordered By: Amanda Rosario on 07-08-2022 Neutrophils (Bld) [#/Vol] 3.4 10*3/uL 1.8-7.7 [facility] Neutrophils/100 WBC Auto (Bl d)Ordered By: Amanda Rosario on 07-08-2022 Neutrophils/100 WBC (Bld) 61.2 % . [facility] No Panel InformationOrdered By: Amanda Rosario on 07-08-2022 Adrenocorticotropic Hormone 8.2 pg/mL 7.2-63.3 [facility] Comment on above: ACTH reference inter cruz for samples collected between 7 and 10 AM. Performed at: [email or web address] [address] Public Health Policy Analyst: Sai Smalls PhD, Phone: [phone] ACTH reference inter cruz for samples collected between 7 and10 AM.Performed at: [email or web address] [id number] Director: Sai Smalls PhD, Phone: [phone] Estimated GFR () > 60 mL/Min [facility] Comment on above: GFR estimated refere nce range: According to KDOQI guidelines, <60 ml/min/1.73m2 is sufficient to diagnose a patient with chronic kidney disease. Pharmacy Creatinine Clearance (Chem 111.22 [facility] Total Triiodothyronine 1.68 ng/mL 0.87-1.78 [facility] Platelet mean volume Auto (B ld) [Entitic vol]Ordered By: Amanda Rosario on 07-08-2022 Platelet mean volume (Bld) [Entitic vol] 8.0 fL 6.3-10.7 [facility] Platelets Auto (Bld) [#/Vol] Ordered By: Amanda Rosario on 07-08-2022 Platelets (Bld) [#/Vol] 393 10*3/uL 150-450 [facility] Protein [Mass/volume] in Ser um or PlasmaOrdered By: Amanda Rosario on 07-08-2022 Protein [Mass/Vol] 6.8 g/dL 6.1-7.9 [facility] RBC Auto (Bld) [#/Vol]Ordere d By: Amanda Rosario on 07-08-2022 RBC (Bld) [#/Vol] 4.78 10*6/uL 3.60-5.00 [facility] Random cortisol measurementO rdered By: Amanda Rosario on 07-08-2022 Cortisol [Mass/Vol] 12.6 ug/dL [facility] Comment on above: Reference range: AM 6 - 24 ug/dl PM <10 ug/dl Reference range: AM 6 - 24 ug/dl PM <10 ug/dl Serum or plasma alanine green otransferase measurement without P-5'-P (enzymatic activiOrdered By: Amanda Rosario on 07-08-2022 ALT No additional P-5'-P [Catalytic activity/Vol] 17 U/L 10-60 [facility] Serum or plasma albumin/glob ulin mass ratioOrdered By: Amanda Rosario on 07-08-2022 Albumin/Globulin [Mass ratio] 1.3 {ratio} [facility] Serum or plasma alkaline mando sphatase measurement (enzymatic activity/volume)Ordered By: Amanda Rosario on 07-08-2022 ALP [Catalytic activity/Vol] 52 U/L 32-92 [facility] Serum or plasma aspartate am inotransferase measurement (enzymatic activity/volume)Ordered By: Amanda Rosario on 07-08-2022 AST [Catalytic activity/Vol] 22 U/L 10-42 [facility] Serum or plasma calcium saritha urement (mass/volume)Ordered By: Amanda Rosario on 07-08-2022 Calcium [Mass/Vol] 9.3 mg/dL 8.2-10.2 [facility] Serum or plasma chloride obi surement (moles/volume)Ordered By: Amanda Rosario on 07-08-2022 Chloride [Moles/Vol] 104 mmol/L 95-114 [facility] Serum or plasma glucose saritha urement (mass/volume)Ordered By: Amanda Rosario on 07-08-2022 Glucose [Mass/Vol] 83 mg/dL 70-100 [facility] Comment on above: ADA recommended refe rence range Random Glucose Reference Range is dependent on time and content of last meal. Glucose of more than 200 mg/dL in a nonstressed, ambulatory subject supports the diagnosis of Diabetes Mellitus. Serum or plasma potassium me asurement (moles/volume)Ordered By: Amanda Rosario on 07-08-2022 Potassium [Moles/Vol] 4.3 mmol/L 3.5-5.1 [facility] Serum or plasma sodium measu rement (moles/volume)Ordered By: Amanda Rosario on 07-08-2022 Sodium [Moles/Vol] 134 mmol/L 136-146 [facility] Serum or plasma thyroxine (T 4) measurement (mass/volume)Ordered By: Amanda Rosario on 07-08-2022 T4 [Mass/Vol] 11.18 ug/dL 5.39-11.82 [facility] Serum or plasma total biliru bin measurement (mass/volume)Ordered By: Amanda Rosario on 07-08-2022 Bilirubin [Mass/Vol] 0.7 mg/dL 0.3-1.2 [facility] Serum or plasma total carbon dioxide measurement (moles/volume)Ordered By: Amanda Rosario on 07-08-2022 CO2 [Moles/Vol] 22.2 mmol/L 22.0-30.0 [facility] Serum or plasma urea nitroge n measurement (mass/volume)Ordered By: Amanda Rosario on 07-08-2022 Urea nitrogen [Mass/Vol] 9 mg/dL 9-23 [facility] TSH DL <= 0.005 mIU/L QnOrde red By: Amanad Rosario on 07-08-2022 TSH Qn 1.69 m[IU]/L 0.45-5.33 [facility] CHLAMYDIA/GONOCOCCUS PARMINDER ( AB/URINE/PAPon 06-19-2022 Chlamydia trachomatis, PARMINDER Negative Normal Negative [facility] Comment on above: Performed By: #### T #### [facility] [address] [place] [address] [address] Beth Pineda Neisseria gonorrhoeae, PARMINDER Negative Normal Negative [facility] Comment on above: Performed By: #### T SH #### [facility] [address] [place] [address] [address] Beth Pineda VAGINITIS/VAGINOSIS DNA PROB Kaden 06-18-2022 Steven species Negative Normal Negative [facility] Comment on above: Performed By: #### T SH #### [facility] [address] [place] [address] [address] Beth Pineda Gardnerella vaginalis Negative Normal Negative [facility] Comment on above: Performed By: #### T SH #### [facility] [address] [address] [address] Beth Pineda Trichomonas vaginalis Negative Normal Negative [facility] Comment on above: Performed By: #### T SH #### [facility] [address] [place] [address] Dr. Beth Pineda Creatinine [Mass/volume] in UrineOrdered By: Amanda Rosario on 05-23-2022 Creatinine (U) [Mass/Vol] 26.2 mg/dL [facility] Comment on above: No reference range e stablished Laboratory - Chemistry and C hemistry - challengeOrdered By: Amanda Rosario on 05-23-2022 Lipase [Catalytic activity/Vol] 32.0 U/L 22-51 [facility] Protein [Mass/volume] in Uri neOrdered By: Amanda Rosario on 05-23-2022 Protein (U) [Mass/Vol] mg/dL 0-9 [facility] Thyroxine (T4) free [Mass/vo lume] in Serum or PlasmaOrdered By: Amanda Rosario on 05-23-2022 Free T4 [Mass/Vol] 0.88 ng/dL 0.61-1.12 [facility] Bilirubin Test strip Ql (U)O rdered By: Amanda Rosario on 10-30-2021 Bilirubin Ql (U) Negative Negative [facility] Color Auto (U)Ordered By: Ira Rosario on 10-30-2021 Color (U) Yellow Yellow [facility] Ketones Auto test strip (U) [Mass/Vol]Ordered By: Amanda Rosario on 10-30-2021 Ketones (U) [Mass/Vol] Negative Negative [facility] Nitrite Test strip Ql (U)Ord ered By: Amanda Rosario on 10-30-2021 Nitrite Ql (U) Negative Negative [facility] Protein Auto test strip (U) [Mass/Vol]Ordered By: Amanda Rosario on 10-30-2021 Protein (U) [Mass/Vol] Negative Negative [facility] Specific gravity Auto test s trip (U) [Rel density]Ordered By: Amanda Rosario on 10-30-2021 Specific gravity (U) [Rel density] 1.008 1.001-1.030 [facility] Urine clarity by refractomet ry automatedOrdered By: Amanda Rosario on 10-30-2021 Clarity Refractometry automated (U) Clear Clear [facility] Urine glucose measurement by automated test strip (mass/volume)Ordered By: Amanda Rosario on 10-30-2021 Glucose Auto test strip (U) [Mass/Vol] Normal mg/dL Normal [facility] Urine hemoglobin detection b y automated test stripOrdered By: Amanda Rosario on 10-30-2021 Hemoglobin Auto test strip Ql (U) Negative Negative [facility] Urine leukocyte esterase det ection by automated test stripOrdered By: Amanda Rosario on 10-30-2021 Leukocyte esterase Auto test strip Ql (U) Negative Negative [facility] Urobilinogen Auto test strip (U) [Mass/Vol]Ordered By: Amanda Rosario on 10-30-2021 Urobilinogen (U) [Mass/Vol] Normal mg/dL Normal [facility] pH Auto test strip (U)Ordere d By: Amanda Rosario on 10-30-2021 pH (U) 5.5 [pH] 5.0-9.0 [facility] Lab Reportson 07-31-2021 Lab Reports [id number] D:127 Normal [facility] RAD - MISCon 07-31-2021 RAD - MISC [id number] D:127 Normal [facility] HCG ( test) IAbrenda d Ql (U)Ordered By: Amanda Rosario on 07-09-2021 HCG ( test) Ql (U) Negative [facility] Glucose Glucometer (BldC) [M ass/Vol]Ordered By: Amanda Rosario on 07-01-2021 Glucose [Mass/Vol] 82 mg/dL [facility] Comment on above: Random Glucose Refer ence Range is dependent on time and content of last meal. Glucose of more than 200 mg/dL in a nonstressed, ambulatory subject supports the diagnosis of Diabetes Mellitus. 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 Will follow up with the pathology report once this is resulted Dictation software was used in the creation of this note and not corrected for typographical or grammatical errors Chief Complaint Postop History of Present Sqfavxr34-fgor-puy woman who underwent wide excision right posterior calf melanoma with [place] flap reconstruction as well as right inguinal and iliac sentinel lymph node biopsy on 05/17/2021. Pathology report has not yet resulted. She is recovering well. Active Problems Malignant melanoma of lower leg, right (172.7) (C43.71) Allergies No Known Drug Allergies Recorded By: Florence Fernando; 05/30/2021 2:49:13 PM Vitals Vital Signs Recorded: 30May2021 02:47PM Cszkcdoatjg33 C, Temporal Heart Mmhp070 Ejmdxqklfur68 Poizzyds444, RUE, Sitting Fhrivxfte63, RUE, Sitting Blood Pressure Cuff SizeAdult Fcnmyd316 cm Unbzjj71.6 kg BMI Xqrobavaoh82.58 kg/m2 BSA Calculated1.77 O2 Emtvrwrndo23 Pain Scale0 Physical Exam Right groin wounds [...] These were compared to the original melanoma ([id number]) and are consistent with a metastatic focus [...] that were compared to the original melanoma ([id number]) and are smaller with less cytoplasm compared [...] determined by the Department of Pathology at [facility]. The FDA does not require [...] landis-yellow irregularly shaped piece of skin measuring 20o24v4rp. The specimen is embedded in toto. B: Received in formalin is a landis-yellow irregularly shaped piece of skin measuring 96x3v6gt. The specimen is embedded in toto. C: Received in formalin is a landis-yellow irregularly shaped piece of skin measuring 79p15f3lh. The specimen is embedded in toto. D: Received in formalin is a landis ellipse of skin measuring [id number], oriented by the surgeon with short stitch [...] Block 1 is at 12 o'clock. ink/05/21/2021 [facility] Dermatopathology Laboratory [place] [id number] [place] [address] 310 Normal [facility] Comment on above: Performed By: #### D #### Dermatopathology HCG,URINEon 05-17-2021 Beta HCG ( test) Ql (U) Negative Normal Negative [facility] [place] on above: Performed By: #### H CGU #### [facility] [address] [place] [id number] LYMPH GLANDon 05-17-2021 LYMPH GLAND Patient Name: AILYN PITTMAN STUDY: LYMPH GLAND; 05/17/2021 12:45 pm INDICATION: Malignant melanoma of right posterior leg. COMPARISON: None. ACCESSION NUMBER(S): [id number] ORDERING CLINICIAN: SARAH LEIGH TECHNIQUE: DIVISION OF NUCLEAR MEDICINE RADIONUCLIDE SENTINEL LYMPH NODE LYMPHOSCINTIGRAPHY A total of 0.870 millicuries of Tc-99m tilmanocept (Luristic) was injected intradermally in a circumferential pattern [...] as stated. This study was interpreted at [facility], [place], [place]. Electronically signed by: TAMY LAWTON MD Normal [facility] [place] Lymph Glandon 05-17-2021 NM Lymph node Views Normal [facility] rgery-A dmin Main Work Phone: No Panel Informationon 05-17 HU-Fgqzftr-V [facility] Work Phone: Order Reconciliationon 05-17 [...] 4 days PRN pain, Dx: G89.18 Normal [facility] [place] Patient Profile - Preop v2on 05-17-2021 Patient Profile - Preop v2 Profile: Initial Info: How to be AddressedSamantha Spoken Language PreferredEnglish Source of Informationpatient Are you currently using the Personal Electronic Health Record or MYCAREno Are you interested in learning more about [facility] for the management of your healthnot at this time Stated Reason for Admissionwide excision melanoma right posterior leg, keystone flap and sentinel lymph node biopsy Primary Contact Name and Numberleigh ann El [phone] Limitations on Visitors/Phone Callsnone Patient Belongingsremains with patient Patient Belongings Remaining with Patientclothing; cell phone/electronics Medications Brought to Hospital[facility] General Health: Weight in kg63.6 kilogram(s) Weight in qcr413.2 pound(s) Weight Methodstated Height in feet5 feet Height in inches8 inch(es) Height in cm172.7 centimeter(s) Height Methodstated BMI (kg/m2)21.324 square meter Patient or Family Member Reaction to Anesthesianever had anesthesia Blood Avoidance/Restrictionsn one Previous Transfusion Reactionno Health Mgmt: Symptoms/Conditions Managed at H[facility]one Are You no Are You Currently Breastfeedingno Barriers to Managing Healthnone Relationship/Environ: Living Arrangementshouse Lives Withsignificant other Resource/Environmental Concernsnone [facility] Anticipated at Transitionnone Substance: [...] instruction; written material Cultural Considerationsnone Developmental Considerationsnone Temple Considerationsnone Other learner availableno [place] RiskPatient location auto qualifies him/her for HIGH RISK. Are there any cultural, spiritual, pentecostalism practices/values/needs that are important for us to knowno Do you want a visit/item from [facility] Would you like your Senior Research Manager/Tower Erector notifiedno Pain Scalenumerical 0-10 Pain Scale Educationteaching [...] Allergies: Active Electronic Signatures: Arabella Luis (ERICK COLEMANN) (Signed 17-May-2021 09:34) Authored: Initial Info, General Health, Health Mgmt, Relationship/Environ, Substance, Risk Screens, Additional Information Last Updated: 17-May-2021 09:34 by Arabella Luis (ERICK COLEMANN) [facility] Preop Checkliston 05-17-2021 Preop Checklist Preop Checklist: Preop Checklist: Arrival [id number] Arrival Time08:55 Procedure Typewide excision melanoma right posterior leg, keystone flap and sentinel lymph node biopsy Temperature C37.1 degrees C Temperature F98.7 degrees F Heart Rate92 beats per minute Respiratory Rate16 breath per minute Blood Pressure Djgqujoe732 mm/Hg Blood Pressure Cofbpfblx00 mm/Hg NPO [id number] 22:00 Allergy Bandno known allergies Consent Signedyes [...] 09:36 by Arabella Luis (ERICK PRN) [place] [facility] [place] 05-17 HCG ( test) Ql (U) Negative Negative NL-Gslhfds-D dmin Main Work Phone: Initial Visit (General Surge ry)on 05-02-2021 Initial Visit (General Surgery) Diagnoses/Problems Malignant melanoma of lower leg, right (172.7) (C43.71) *Orders Malignant melanoma of lower leg, right Urine Test; Status:Active - Retrospective By Protocol Authorization; Requested for:02May2021; Perform:Lab Services - Lab To Draw (Non-Blood Test); Due:[id number]; Last Updated By:Di Giles; 05/02/2021 3:07:40 PM;Ordered; [...] errors Chief Complaint Melanoma History of Present [id number] woman referred from [facility] for right [...] basins Signatures Electronically signed by : Sarah eLigh MD; May 02 2021 4:04PM EST (Author) Normal Touchworks Vital Signs Date Time Vital Sign Value Performing Clinician Facility 07-18-2025 10:52-0400 Body mass index (BMI) [Ratio] 21.34 kg/m2 Delvis Meraz DO Work Phone: [facility] 07-18-2025 10:52-0400 Body weight 65.55 kg Delvis Kt DO Work Phone: [facility] 07-18-2025 10:52-0400 Diastolic blood pressure 74 mm[Hg] Delvis Kt DO Work Phone: [facility] 07-18-2025 10:52-0400 Systolic blood pressure 110 mm[Hg] Delivs Kt DO Work Phone: [facility] 05-03-2025 15:03-0400 Body mass index (BMI) [Ratio] 22.15 kg/m2 Delvis Kt DO Work Phone: [facility] 05-03-2025 15:03-0400 Body weight 68.04 kg Delvis Kt DO Work Phone: [facility] 05-03-2025 15:03-0400 Diastolic blood pressure 68 mm[Hg] Delvis Kt DO Work Phone: [facility] 05-03-2025 15:03-0400 Systolic blood pressure 118 mm[Hg] Delvis Kt DO Work Phone: [facility] 03-22-2025 15:00-0400 Body mass index (BMI) [Ratio] 26.99 kg/m2 Delvis Kt DO Work Phone: [facility] 03-22-2025 15:00-0400 Body weight 82.92 kg Delvis Kt DO Work Phone: [facility] 03-22-2025 15:00-0400 Diastolic blood pressure 74 mm[Hg] Delvis Kt DO Work Phone: [facility] 03-22-2025 15:00-0400 Systolic blood pressure 120 mm[Hg] Delvis Kt DO Work Phone: [facility] 03-15-2025 14:23-0400 Body mass index (BMI) [Ratio] 26.32 kg/m2 Delvis Kt DO Work Phone: [facility] 03-15-2025 14:23-0400 Body weight 80.85 kg Delvis Kt DO Work Phone: [facility] 03-15-2025 14:23-0400 Diastolic blood pressure 70 mm[Hg] Delvis Kt DO Work Phone: [facility] 03-15-2025 14:23-0400 Systolic blood pressure 110 mm[Hg] Delvis Kt DO Work Phone: [facility] 03-08-2025 14:02-0400 Body mass index (BMI) [Ratio] 26.4 kg/m2 Delvis Kt DO Work Phone: [facility] 03-08-2025 14:02-0400 Body weight 81.1 kg Delvis Kt DO Work Phone: [facility] 03-08-2025 14:02-0400 Diastolic blood pressure 64 mm[Hg] Delvis Kt DO Work Phone: [facility] 03-08-2025 14:02-0400 Systolic blood pressure 112 mm[Hg] Delvis Kt DO Work Phone: [facility] 02-21-2025 10:54-0400 Body mass index (BMI) [Ratio] 25.81 kg/m2 Delvis Kt DO Work Phone: [facility] 02-21-2025 10:54-0400 Body weight 79.29 kg Delvis Kt DO Work Phone: [facility] 02-21-2025 10:54-0400 Diastolic blood pressure 60 mm[Hg] Delvis Kt DO Work Phone: [facility] 02-21-2025 10:54-0400 Systolic blood pressure 110 mm[Hg] Delvis Kt DO Work Phone: [facility] 02-09-2025 10:41-0400 Body mass index (BMI) [Ratio] 25.22 kg/m2 Amanda TADEO Work Phone: [facility] 02-09-2025 10:41-0400 Body weight 77.47 kg Amanda TADEO Work Phone: [facility] 02-09-2025 10:41-0400 Diastolic blood pressure 68 mm[Hg] Amanda TADEO Work Phone: [facility] 02-09-2025 10:41-0400 Systolic blood pressure 118 mm[Hg] Amanda TADEO Work Phone: [facility] 01-25-2025 11:16-0500 Body mass index (BMI) [Ratio] 24.63 kg/m2 Delvis Kt DO Work Phone: [facility] 01-25-2025 11:16-0500 Body weight 75.66 kg Delvis Kt DO Work Phone: [facility] 01-25-2025 11:16-0500 Diastolic blood pressure 78 mm[Hg] Delvis Kt DO Work Phone: [facility] 01-25-2025 11:16-0500 Systolic blood pressure 124 mm[Hg] Delvis Kt DO Work Phone: [facility] 01-11-2025 14:27-0500 Body mass index (BMI) [Ratio] 24.04 kg/m2 Delvis Kt DO Work Phone: [facility] 01-11-2025 14:27-0500 Body weight 73.85 kg Delvis Kt DO Work Phone: [facility] 01-11-2025 14:27-0500 Diastolic blood pressure 58 mm[Hg] Delvis Kt DO Work Phone: [facility] 01-11-2025 14:27-0500 Systolic blood pressure 112 mm[Hg] Delvis Kt DO Work Phone: [facility] 12-28-2024 11:12-0500 Body mass index (BMI) [Ratio] 23.35 kg/m2 Delvis Kt DO Work Phone: [facility] 12-28-2024 11:12-0500 Body weight 71.72 kg Delvis Kt DO Work Phone: [facility] 12-28-2024 11:12-0500 Diastolic blood pressure 74 mm[Hg] Delvis Kt DO Work Phone: [facility] 12-28-2024 11:12-0500 Systolic blood pressure 120 mm[Hg] Delvis Kt DO Work Phone: [facility] 11-28-2024 14:41-0500 Body mass index (BMI) [Ratio] 22.74 kg/m2 Delvis Kt DO Work Phone: [facility] 11-28-2024 14:41-0500 Body weight 69.85 kg Delvis Kt DO Work Phone: [facility] 11-28-2024 14:41-0500 Diastolic blood pressure 70 mm[Hg] Delvis Kt DO Work Phone: [facility] 11-28-2024 14:41-0500 Systolic blood pressure 118 mm[Hg] Delvis Kt DO Work Phone: [facility] 10-24-2024 14:44-0500 Body mass index (BMI) [Ratio] 22 kg/m2 Delvis Kt DO Work Phone: [facility] 10-24-2024 14:44-0500 Body weight 67.59 kg Delvis Kt DO Work Phone: [facility] 10-24-2024 14:44-0500 Diastolic blood pressure 68 mm[Hg] Delvis Kt DO Work Phone: [facility] 10-24-2024 14:44-0500 Systolic blood pressure 114 mm[Hg] Delvis Kt DO Work Phone: [facility] 10-11-2024 14:39-0500 Body height 175.3 cm Mike Wagner MD Work Phone: [facility] 10-11-2024 14:39-0500 Body mass index (BMI) [Ratio] 21.56 kg/m2 Mike Wagner MD Work Phone: [facility] 10-11-2024 14:39-0500 Body temperature 97.5 [degF] Mike Wagner MD Work Phone: [facility] 10-11-2024 14:39-0500 Body weight 66.22 kg Mike Wagner MD Work Phone: [facility] 10-11-2024 14:39-0500 Diastolic blood pressure 52 mm[Hg] Mike Wagner MD Work Phone: [facility] 10-11-2024 14:39-0500 Heart rate 106 /min Mike Wagner MD Work Phone: [facility] 10-11-2024 14:39-0500 Respiratory rate 22 /min Mike Wagner MD Work Phone: [facility] 10-11-2024 14:39-0500 SaO2% (BldA) [Mass fraction] 99 % Mike Wagner MD Work Phone: [facility] 10-11-2024 14:39-0500 Systolic blood pressure 118 mm[Hg] Mike Wagner MD Work Phone: [facility] 09-26-2024 15:17-0500 Body mass index (BMI) [Ratio] 21.34 kg/m2 Delvis Kt DO Work Phone: [facility] 09-26-2024 15:17-0500 Body weight 65.55 kg Delvis Kt DO Work Phone: [facility] 09-26-2024 15:17-0500 Diastolic blood pressure 68 mm[Hg] Delvis Kt DO Work Phone: [facility] 09-26-2024 15:17-0500 Systolic blood pressure 116 mm[Hg] Delvis Kt DO Work Phone: [facility] 08-26-2024 10:04-0400 Body mass index (BMI) [Ratio] 20.97 kg/m2 [facility] Nurse [facility] 08-26-2024 10:04-0400 Body weight 64.41 kg [facility] Nurse [facility] 08-26-2024 10:04-0400 Diastolic blood pressure 82 mm[Hg] [facility] Nurse [facility] 08-26-2024 10:04-0400 Systolic blood pressure 118 mm[Hg] [facility] Nurse [facility] 05-22-2023 08:55-0400 Body temperature 97.8 [degF] MD Sarah Leigh Work Phone: [facility] 05-22-2023 08:55-0400 Body weight 69.85 kg MD Sarah Leigh Work Phone: [facility] 05-22-2023 08:55-0400 Diastolic blood pressure 68 mm[Hg] MD Sarah Leigh Work Phone: [facility] 05-22-2023 08:55-0400 Heart rate 79 /min MD Sarah Leigh Work Phone: [facility] 05-22-2023 08:55-0400 Respiratory rate 16 /min MD Sarah Leigh Work Phone: [facility] 05-22-2023 08:55-0400 SaO2% (BldA) [Mass fraction] 98 % MD Sarah Leigh Work Phone: [facility] 05-22-2023 08:55-0400 Systolic blood pressure 108 mm[Hg] MD Sarah Leigh Work Phone: [facility] 01-21-2023 14:57-0500 Body temperature 97.8 [degF] MD Sarah Leigh Work Phone: [facility] 01-21-2023 14:57-0500 Body weight 67.2 kg MD Sarah Leigh Work Phone: [facility] 01-21-2023 14:57-0500 Diastolic blood pressure 79 mm[Hg] MD Sarah Leigh Work Phone: [facility] 01-21-2023 14:57-0500 Heart rate 72 /min MD Sarah Leigh Work Phone: [facility] 01-21-2023 14:57-0500 Respiratory rate 16 /min MD Sarah Leigh Work Phone: [facility] 01-21-2023 14:57-0500 SaO2% (BldA) [Mass fraction] 98 % MD Sarah Leigh Work Phone: [facility] 01-21-2023 14:57-0500 Systolic blood pressure 119 mm[Hg] MD Sarah Leigh Work Phone: [facility] 07-08-2022 13:02-0400 Body height 172.72 cm MD Amanda Rosario Work Phone: [facility] 07-08-2022 13:02-0400 Body temperature 98 [degF] MD Amanda Rosario Work Phone: [facility] 07-08-2022 13:02-0400 Body weight 67.81 kg MD Amanda Rosario Work Phone: [facility] 07-08-2022 13:02-0400 Diastolic blood pressure 71 mm[Hg] MD Amanda Rosario Work Phone: [facility] 07-08-2022 13:02-0400 Heart rate 95 /min MD Amanda Rosario Work Phone: [facility] 07-08-2022 13:02-0400 Respiratory rate 20 /min MD Amanda Rosario Work Phone: [facility] 07-08-2022 13:02-0400 SaO2% (BldA) [Mass fraction] 97 % MD Amanda Rosario Work Phone: [facility] 07-08-2022 13:02-0400 Systolic blood pressure 115 mm[Hg] MD Amanda Rosario Work Phone: [facility] 05-30-2021 14:47-0400 Body height 173 cm Price Girard Work Phone: AQ-Lxdosqo-Uhsfk Main Work Phone: 05-30-2021 14:47-0400 Body mass index (BMI) [Ratio] 21.58 kg/m2 Price Girard Work Phone: TF-Fiwluuy-Qwotf Main Work Phone: 05-30-2021 14:47-0400 Body surface area Derived from formula 1.77 m2 Price Girard Work Phone: ES-Gatgkqc-Yieue Main Work Phone: 05-30-2021 14:47-0400 Body temperature 98.6 [degF] Price Girard Work Phone: TZ-Wsanqnz-Xqeii Main Work Phone: 05-30-2021 14:47-0400 Body weight 64.6 kg Price Girard Work Phone: IO-Fxynetw-Blgib Main Work Phone: 05-30-2021 14:47-0400 Diastolic blood pressure 77 mm[Hg] Price Girard Work Phone: WJ-Xdhngeu-Sixjy Main Work Phone: 05-30-2021 14:47-0400 Heart rate 103 /min Price Girard Work Phone: NY-Mahckjq-Skgav Main Work Phone: 05-30-2021 14:47-0400 Respiratory rate 16 /min Price Girard Work Phone: ZP-Nqrdxcp-Byhgn Main Work Phone: 05-30-2021 14:47-0400 SaO2% (BldA) [Mass fraction] 99 % Price Girard Work Phone: UU-Raikjuq-Rcimb Main Work Phone: 05-30-2021 14:47-0400 Systolic blood pressure 131 mm[Hg] Price Girard Work Phone: CZ-Vmhmbjk-Lnztb Main Work Phone: 05-30-2021 14:47-0400 0 1 Price Girard Work Phone: DR-Ighkhtp-Ibsgh Main Work Phone: Comment on above: [employer] 1997 00:00-0400 >na< 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 Encounters Encounter Date Encounter Type Care Provider Facility Start: 07-18-2025 End: 07-18-2025 Bamboo flowsheet Delvis Kt DO Work Phone: [facility] Start: 07-18-2025 End: 07-18-2025 Bamboo flowsheet Delvis Kt DO Work Phone: [facility] Start: 07-18-2025 End: 07-18-2025 Patient encounter procedure Delvis Kt DO Work Phone: [facility] Start: 07-18-2025 End: 07-18-2025 Periodic preventive med est patient 18-39 yrs Delvis Kt DO Work Phone: [facility] Comment on above: Well woman exam with routine gynecological exam; control counseling Start: 05-03-2025 End: 05-03-2025 ambulatory DELVIS KT Not Available Start: 05-03-2025 End: 05-03-2025 care visit Delvis Kt DO Work Phone: [facility] Comment on above: 6 weeks f ollow-up; Spontaneous vaginal delivery Start: 03-25-2025 End: 03-27-2025 Clinisync Result Encounter Delvis Kt DO Work Phone: [facility] Unsolicited Start: 03-25-2025 End: 03-27-2025 Clinisync Result Encounter Delvis Kt DO Work Phone: [facility] Unsolicited Start: 03-24-2025 End: 03-27-2025 Clinisync Result Encounter Delvis Kt DO Work Phone: [facility] Unsolicited Start: 03-24-2025 End: 03-27-2025 Clinisync Result Encounter Delvis Kt DO Work Phone: [facility] Unsolicited Start: 03-22-2025 End: 03-22-2025 ambulatory DELVIS KT Not Available Start: 03-22-2025 End: 03-22-2025 flow sheet Delvis Kt DO Work Phone: [facility] Comment on above: 37 weeks gestation o f ; Third trimester Start: 03-22-2025 End: 03-22-2025 Bamboo flowsheet Delvis Kt DO Work Phone: [facility] Start: 03-22-2025 End: 03-23-2025 Bamboo flowsheet Delvis Kt DO Work Phone: [facility] Start: 03-22-2025 End: 03-23-2025 Clinisync Result Encounter Generic External Data Provider [facility] Unsolicited Start: 03-16-2025 End: 03-16-2025 Clinisync Result Encounter Generic External Data Provider [facility] Unsolicited Start: 03-16-2025 End: 03-16-2025 Clinisync Result Encounter Generic External Data Provider [facility] Unsolicited Start: 03-15-2025 End: 03-15-2025 ambulatory DELVIS KT Not Available Start: 03-15-2025 End: 03-15-2025 Bamboo flowsheet Delvis Kt DO Work Phone: [facility] Start: 03-15-2025 End: 03-15-2025 Bamboo flowsheet Delvis Kt DO Work Phone: [facility] Start: 03-15-2025 End: 03-15-2025 flow sheet Delvis Kt DO Work Phone: [facility] Comment on above: Third trimester preg mei; 36 weeks gestation of Start: 03-08-2025 End: 03-08-2025 Bamboo flowsheet Delvis Kt DO Work Phone: [facility] Start: 03-08-2025 End: 03-09-2025 Bamboo flowsheet Delvis Kt DO Work Phone: [facility] Start: 03-08-2025 End: 03-09-2025 Clinisync Result Encounter Delvis Kt DO Work Phone: [facility] Unsolicited Start: 03-08-2025 End: 03-08-2025 flow sheet Delvis Kt DO Work Phone: [facility] Comment on above: Third trimester preg mei; 35 weeks gestation of ; Pyelectasis of fetus on ultrasound Start: 03-08-2025 End: 03-08-2025 ambulatory DELVIS KT Not Available Start: 03-06-2025 End: 03-06-2025 Clinisync Result Encounter [...] 8w1d Start: 08-26-2024 End: 08-26-2024 ambulatory DELVIS MERAZ Not Available Start: 08-23-2024 End: 08-23-2024 Bamboo [...] Start: 08-19-2023 End: 08-19-2023 ambulatory Amanda Abraham Facility:[facility] Start: 05-22-2023 End: 05-22-2023 ambulatory MD Sarah Leigh Work Phone: [facility] Work Phone: Start: 05-22-2023 End: 05-22-2023 Registered Recurring MD Sarah Leigh Work Phone: [facility] Work Phone: Start: 04-07-2023 [...] 01-21-2023 ambulatory MD Sarah Leigh Work Phone: [facility] Work Phone: Start: 01-21-2023 End: 01-21-2023 Registered Recurring MD [facility]: Start: 01-13-2023 End: 01-13-[address] DELVIS MERAZ . Facility:[facility] Start: 01-01-2023 Encounter for genera l adult medical examination without abnormal findings DR MIKE WAGNER [facility] Start: 12-31-2022 End: 01-01-[address] MIKE WAGNER Facility:[facility] Start: 12-31-2022 End: 01-01-2023 Encounter for general adult medical examination without abnormal findings DR MIKE WAGNER Facility:[facility] Start: 07-08-2022 End: 07-08-2022 Registered Recurring MD Amanda Rosario Work Phone: [facility] Start: 06-16-2022 End: 06-16-[address] DELVIS MERAZ . Facility:[facility] Start: 04-09-[address] AMANDA ROSARIO Facility :[facility] Start: 06-22-2021 Chart Update Price Girard Work Phone[facility] Work Phone: Start: 06-18-2021 [facility] Start: 05-30-2021 Postop follow up vis it related to original px Price Girard Work Phone: PN-Esaasoa-Esblr Main Work Phone: Procedures Date Procedure Procedure Detail Performing Clinician Start: 05-03-2025 Urnls dip stick/tabl et rgnt non-auto w/o micrscp Delvis Kt DO Work Phone: Start: 03-25-2025 ALL CBC WITH AUTO DIFF Delvis Fourniero DO Work Phone: Start: 03-24-2025 [facility] UA (CLEAN/CATCH) IRON MOLDER HELPER/MICRO IF IND. Delvis Fourniero DO Work Phone: Start: 03-24-2025 [facility] URINE MICROSCOPIC ONLY Delvis Fourniero DO Work Phone: Start: 03-22-2025 US OB BPP W NON-STRESS Generic External Data Provider Start: 03-22-2025 Urnls dip stick/tabl et rgnt non-auto w/o micrscp Delvis Kt DO Work Phone: Start: 03-16-2025 US OB BPP W NON-STRESS Generic External Data Provider Start: 03-15-2025 Urnls dip stick/tabl et rgnt non-auto w/o micrscp Delvis Kt DO Work Phone: Start: 03-08-2025 US OB BPP W NON-STRESS Delvis Kt DO Work Phone: Start: 03-08-2025 Urnls dip stick/tabl et rgnt non-auto w/o micrscp Delvis Fourniero DO Work Phone: Start: 03-06-2025 US for multiple gest ation limited Generic External Data Provider Start: 02-21-2025 Urnls dip stick/tabl et rgnt non-auto w/o micrscp Delvis Kt DO Work Phone: Start: 02-09-2025 Urnls dip stick/tabl et rgnt non-auto w/o micrscp Amanda TDAEO Work Phone: Start: 01-25-2025 Urnls dip stick/tabl [...] dip stick/tabl et rgnt non-auto w/o micrscp Delvsi Kt DO Work Phone: Start: 09-19-2024 MLR HEMOGLOBIN A1C Gene david External Data Provider Start: 08-26-2024 End: 08-26-2024 Urnls dip stick/tablet rgnt non-auto w/o micrscp Delvis Kt DO Work Phone: Start: 08-04-2024 [facility] PREG QUANT HCG Core y Kt DO Work Phone: Start: 08-02-2024 [facility] PREG QUANT HCG Core y Kt DO Work Phone: Start: 02-10-2024 Cytp cerv/vag auto t hin layer prep mnl screen Delvis Kt DO Work Phone: Start: 01-09-2023 Ultrasonography [...] Treatment Date Care Activity Detail Author Start: 07-26-2025 End: 07-26-2025 Patient encounter procedure 07/26/2025 11:00 AM EDT Office Visit [facility] [address] [place] [id number] Delvis Meraz, [address] [place] [address] [facility] Start: 07-24-2025 Influenza vaccination [facility] Start: 03-30-2025 End: 03-30-2025 Patient encounter procedure 03/30/2025 10:50 AM EDT Routine [facility] [address] [place] [phone] Delvis Meraz, [address] [place] [address] [facility] Start: 03-22-2025 End: 03-22-2025 Patient encounter procedure 03/22/2025 2:20 PM EDT Routine [facility] [address] [place] [address] Delvis Meraz, DO [address] [place] [address] [facility] Start: 03-15-2025 End: 03-15-2025 Patient encounter procedure 03/15/2025 2:00 PM EDT Routine [facility] [address] [place] [address] Delvis Meraz, DO [address] [place] [address] [facility] Start: 03-08-2025 End: 03-08-2026 CULTURE, GROUP B STREP WITH SUSCEPTIBLITY CULTURE, GROUP B STREP WITH SUSCEPTIBLITY Lab Routine Third trimester Expected: 03/08/2025, Expires: 03/08/2026 [facility] Work Phone: Comment on above: Expected: 03/08/2025, Expires: Start: 03-08-2025 End: 09-07-2025 US biophysical profile w non stress test US biophysical profile w non stress test Imaging Routine Pyelectasis of fetus on ultrasound Expected: 03/08/2025 (Approximate), Expires: 09/07/2025 [facility] Comment on above: Expected: 03/08/2025 (Approximate), Expi res: 09/07/2025 Start: 03-08-2025 End: 03-08-2025 Patient encounter procedure [facility] Comment on above: Arrived Start: 02-21-2025 End: 02-21-2026 US for US OB limited 1+ fetuses Imaging Routine Third trimester 33 weeks gestation of Abnormal finding on ultrasound Expected: 02/21/2025, Expires: 02/21/2026 [facility] Work Phone: Comment on above: Expected: 02/21/2025, Expires: Start: 02-21-2025 End: 02-21-2025 Patient encounter procedure 02/21/2025 10:40 AM EDT Routine [facility] [address] [place] [phone] Delvis Meraz, DO [address] [place] [address] [facility] Start: 02-09-2025 End: 02-09-2025 Patient encounter procedure 02/09/2025 10:20 AM EDT Routine [facility] [address] [place] [id number] Amanda Gonzalez PA [address] [place] [address] [facility] Start: 01-25-2025 End: 01-25-2025 Patient encounter procedure 01/25/2025 11:00 AM EST Routine [facility] [address] [place] [address] Delvis Meraz, [address] [place] [address] [facility] Start: 01-11-2025 End: 01-11-2025 Patient encounter procedure 01/11/2025 2:00 PM EST Routine [facility] [address] [place] [address] [place] [phone] Delvis Meraz, [facility] [place] [address] [facility] Start: 12-28-2024 End: 12-28-2025 CBC panel - Blood by Automated count CBC Lab Routine Diabetes mellitus screening Expected: 12/28/2024 (Approximate), Expires: 12/28/2025 [facility] Work Phone: Comment on above: Expected: 12/28/2024 (Approximate), Expi res: 12/28/2025 Start: 12-28-2024 End: 12-28-2025 Measurement of glucose 1 hour after glucose challenge for glucose tolerance test Glucose tolerance, 1 hour Lab Routine Diabetes mellitus screening Expected: 12/28/2024 (Approximate), Expires: 12/28/2025 [facility] Comment on above: Expected: 12/28/2024 (Approximate), Expi res: 12/28/2025 Start: 12-28-2024 End: 12-28-2024 Patient encounter procedure [facility] Comment on above: Arrived Start: 12-27-2024 End: 12-27-2024 Patient encounter procedure 12/27/2024 8:40 AM EST Routine [facility] [address] [place] [phone] Delvis Meraz, DO [address] [place] [address] [facility] Start: 11-28-2024 End: 11-28-2024 Patient encounter procedure 11/28/2024 2:10 PM EST Routine [facility] [address] [place] [phone] Delvis Meraz, DO [address] [place] [address] [facility] Start: 10-24-2024 End: 10-24-2024 Patient encounter procedure 10/24/2024 2:10 PM EST Routine [facility] [address] [place] [id number] Delvis Meraz, DO [address] [place] [address] [facility] Start: 10-24-2024 End: 10-24-2025 [...] anatomic survey Expected: 10/24/2024 (Approximate), Expires: 10/24/2025 [facility] Comment on above: Expected: 10/24/2024 (Approximate), Expi res: 10/24/2025 Start: 09-26-2024 End: 09-26-2024 Patient encounter procedure 09/26/2024 2:20 PM EST Routine [facility] [address] [place] [id number] Delvis Meraz, DO [address] [address] [facility] Start: 08-26-2024 End: 08-26-2025 ABO/Rh ABO/Rh Lab Routine Missed menses , unspecified gestational age Expected: 08/26/2024 (Approximate), Expires: 08/26/2025 [facility] Comment on above: Expected: 08/26/2024 (Approximate), Expi res: 08/26/2025 Start: 08-26-2024 End: 08-26-2025 Blood type and Indirect antibody screen panel - Blood Type and screen Lab Routine Missed menses , unspecified gestational age Expected: 08/26/2024 (Approximate), Expires: 08/26/2025 [facility] Work Phone: Comment on above: Expected: 08/26/2024 (Approximate), Expi res: 08/26/2025 Start: 08-26-2024 End: 08-26-2025 Drugs of abuse panel - Urine by Screen method Rapid drug screen, urine Lab Routine , unspecified gestational age Encounter for supervision of normal first in first trimester Expected: 08/26/2024 (Approximate), Expires: 08/26/2025 [facility] Comment on above: Expected: 08/26/2024 (Approximate), Expi res: 08/26/2025 Start: 08-26-2024 End: 08-26-2025 US Pelvis transvaginal US OB transvaginal Imaging Routine Missed menses Expected: 08/26/2024 (Approximate), Expires: 08/26/2025 [facility] Comment on above: Expected: 08/26/2024 (Approximate), Expi res: 08/26/2025 Start: 08-26-2024 End: 08-26-2024 ambulatory 08/26/2024 10:00 AM EDT Initial [facility] [address] [place] [id number] [facility] Start: 08-26-2024 End: 08-26-2024 Professional / ancillary services management 08/26/2024 9:30 AM EDT Ancillary Procedure [facility] [address] [facility] [place] [id number] [facility] Start: 08-23-2024 End: 08-23-2024 Patient encounter procedure 08/23/2024 10:50 AM EDT Routine [facility] [address] [facility] [place] [id number] Delvis Meraz, DO [address] [address] Arrived [facility] Comment on above: Arrived Start: 07-24-2024 Influenza vaccination Influenza Vaccine (#1) [facility] Start: 05-23-2022 [facility] Start: 04-25-2022 [facility] Start: 03-28-2022 [facility] Start: 02-28-2022 [facility] Start: 01-31-2022 [facility] Start: 01-28-2022 [facility] Start: 12-31-2021 [facility] Start: 12-24-2021 [facility] Start: 11-29-2021 [facility] Start: 11-01-2021 [facility] Start: 10-28-2021 [facility] Start: 10-02-2021 End: 10-03-2021 [facility] Start: 09-06-2021 [facility] Start: 09-03-2021 [facility] Start: 08-08-2021 [facility] Start: 07-11-2021 [facility] Start: 1998 Skin Cancer Screening Skin Cancer Screening [facility] Adrenocorticotropic hormone measurement [facility] Bacteria identified in Urine by Culture Urine culture Microbiology Routine Missed menses Ordered: 08/26/2024 [facility] Comment on above: Ordered: 08/26/2024 Bacteria identified in Urine by Culture Urine culture Microbiology Routine Hematuria, unspecified type Ordered: 10/24/2024 [facility] Comment on above: Ordered: 10/24/2024 Bacteria identified in Urine by Culture Urine culture Microbiology Routine Urinary tract infection without hematuria, site unspecified Ordered: 12/28/2024 [facility] Comment on above: Ordered: 12/28/2024 CBC W Auto Different ial panel - Blood CBC and differential Lab Routine Missed menses , unspecified gestational age Ordered: 08/26/2024 [facility] Comment on above: Ordered: 08/26/2024 CBC W Auto Different ial panel - Blood CBC and differential Lab Routine Low hemoglobin Ordered: 01/25/2025 [facility] Work Phone: Comment on above: Ordered: 01/25/2025 CHLAMYDIA TRACHOMATI S (GENITO/STI) CHLAMYDIA TRACHOMATIS (GENITO/STI) Lab Routine STD exposure Ordered: 10/24/2024 [facility] Comment on above: Ordered: 10/24/2024 Comprehensive metabo lic 1999 panel - Serum or Plasma [facility] Work Phone: Comprehensive metabo lic 1999 panel - Serum or Plasma [facility] Comprehensive metabo lic 1999 panel - Serum or Plasma [facility] Comprehensive metabo lic 1999 panel - Serum or Plasma [facility] CT Abdomen and Pelvi s W contrast IV [facility] Work Phone: CT Abdomen and Pelvi s W contrast IV [facility] CT Abdomen and Pelvi s W contrast IV [facility] CT Chest W contrast IV [facility] Work Phone: CT Chest W contrast IV [facility] CT Chest W contrast IV [facility] Cytology Cervical or vaginal smear or scraping study Pap Smear Pathology and Cytology Routine Well woman exam with routine gynecological exam Ordered: 07/18/2025 [facility] Work Phone: Comment on above: Ordered: 07/18/2025 Ferritin [Mass/volum e] in Serum or Plasma [facility] Work Phone: Hemoglobin A1c/Hemoglobin.total in Blood Hemoglobin A1c Lab Routine Missed menses , unspecified gestational age Ordered: 08/26/2024 [facility] Comment on above: Ordered: 08/26/2024 Hepatitis B virus blevins rface Ag [Presence] in Serum or Plasma by Immunoassay Hepatitis B surface antigen Lab Routine Missed menses , unspecified gestational age Ordered: 08/26/2024 [facility] Comment on above: Ordered: 08/26/2024 Hepatitis C virus Ab [Presence] in Serum or Plasma by Immunoassay Hepatitis C antibody Lab Routine Missed menses , unspecified gestational age Ordered: 08/26/2024 [facility] Comment on above: Ordered: 08/26/2024 HIV-1/HIV-2 antigen/ antibody combination immunoassay HIV-1 and HIV-2 antibodies Lab Routine Missed menses , unspecified gestational age Ordered: 08/26/2024 [facility] Comment on above: Ordered: 08/26/2024 Lactate dehydrogenas e [Enzymatic activity/volume] in Unspecified specimen [facility] Work Phone: Neisseria gonorrhoea e DNA [Presence] in Unspecified specimen by PARMINDER with probe detection Neisseria gonorrhea DNA probe, direct Lab Routine STD exposure Ordered: 10/24/2024 [facility] Comment on above: Ordered: 10/24/2024 Reagin Ab [Presence] in Serum by RPR RPR Lab Routine Missed menses , unspecified gestational age Ordered: 08/26/2024 [facility] Comment on above: Ordered: 08/26/2024 Rubella antibody, IgG Rubella an tibody, IgG Lab Routine Missed menses , unspecified gestational age Ordered: 08/26/2024 [facility] Comment on above: Ordered: 08/26/2024 SURESWAB(R) ADVANCED VAGINITIS PLUS, TMA SURESWAB(R) ADVANCED VAGINITIS PLUS, TMA Pathology and Cytology Routine Vaginal discharge Ordered: 10/24/2024 [facility] Work Phone: Comment on above: Ordered: 10/24/2024 Thyrotropin [Units/v olume] in Serum or Plasma [facility] Thyroxine (T4) free [Mass/volume] in Serum or Plasma [facility] Triiodothyronine (T3 ) Free [Mass/volume] in Serum or Plasma [facility] Extremity [facility] Work Phone: Extremity [facility] Immunizations Immunization Date Immunization Notes Care Provider [facility] 07-09-2018 influenza virus vaccine, unspecified formulation Generic Provider [facility] 1997 pneumococcal conjuga te vaccine, 7 valent 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 Payers Date Payer Category Payer Unknown [id number] 2022 [facility] [id number] [id number] 2022 Unknown 2021 Self-pay [id number] 2021 Unknown [id number] 2021 Unknown [id number] 2019 Unknown [id number] 1997 Unknown [id number] 2.16.84 0.1.258101.3.579.2.593 1997 Unknown [id number] 2.16.84 0.1.292565.3.579.2.593 1997 Unknown [id number] 2.16.84 0.1.059784.3.579.2.593 1997 Unknown [id number] 2.16.84 0.1.238873.3.579.2.59 1997 Unknown [id number] 2.16.84 0.1.690247.3.579.2.593 1997 Unknown [id number] 2.16.84 0.1.849525.3.579.2.59 1997 Unknown [id number] 2.16.84 0.1.684509.3.579.2.59 1997 Unknown [id number] 2.16.84 0.1.773902.3.579.2. 1997 Unknown [id number] 2.16.84 0.1.958584.3.579.2.593 1997 Unknown [id number] 2.16.84 0.1.776993.3.579.2.59 1997 Unknown [id number] 2.16.8 40.1.179880.3.579.2.1258 1997 Unknown [id number] 2.16.84 0.1.476570.3.579.2.1258 1997 Unknown [id number] 2.16.84 0.1.347877.3.579.2.1258 1997 Unknown [id number] 2.16.84 0.1.602485.3.579.2.1258 1997 Unknown [id number] 2.16.84 0.1.166788.3.579.2.1258 1997 Unknown [id number] 2.16.84 0.1.882289.3.579.2.1258 1997 Unknown [id number] 2.16.84 0.1.768649.3.579.2.1258 1997 Unknown [id number] 2.16.84 0.1.006667.3.579.2.1258 1997 Unknown [id number] 2.16.84 0.1.822329.3.579.2.9 1997 Unknown [id number] 2.16.84 0.1.519142.3.579.2.9 1997 Unknown [id number] 2.16.84 0.1.084784.3.579.2.1258 1997 Unknown [id number] 2.16.84 0.1.635599.3.579.2.1258 1997 Unknown [id number] 2.16.84 0.1.999871.3.579.2.1258 1997 Unknown [id number] 2.16.84 0.1.647915.3.579.2.9 1959 Unknown [id number] 1959 Unknown [id number] Unknown [id number] 2.16.8 40.1.176049.3.579.2.531 Social History Date Type Detail Facility Start: 06-18-2021 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 Start: 1995 Sex Assigned At Female [facility] Start: 07-08-2022 End: 04-10-2023 Tobacco smoking status NHIS Never smoked tobacco (finding) [facility] Start: 04-10-2023 Tobacco use and exposure Smokeless tobacco non-user [facility] Start: 02-22-2024 End: 05-03-2025 Alcoholic beverage intake Ex-drinker (finding) [facility] Start: 02-22-2024 End: 10-11-2024 History of Social function [facility] Start: 02-22-2024 End: 10-11-2024 Social connection and isolation panel [facility] Do you belong to any clubs or organizations such as muslim groups, unions, fraternal or athletic groups, or [...] Desired Activity /State Clinical Notes 05-14-2021 to 07-18-2025 Lorri Fernandez LPN - 07/18/2025 10:20 AM John Fernandez, ROBERTO - 05/03/2025 2:40 PM John Fernandez LPN - 03/22/2025 2:20 PM John Fernandez, ROBERTO - 03/15/2025 2:00 PM EDT Note Date & Type Note Facility 07-18-2025 History of Presen t illness Narrative Reason for Appointment: Patient ID: Ailyn Baron is a 30 y.o. female who presents [...] to other specified organisms 02/22/2024 Second trimester ([facility]) 10/11/2024 Past Medical History: Diagnosis Date BMI [...] nursing note reviewed. Exam conducted with a manager software development present. Vitals: Estimated body mass index is [...] with those once we have them. Patient can also view results via [employer]. I reinforced importance of condom use for [...] Meraz DO documented in this encounter [facility] 05-03-2025 History of Presen t illness Narrative Reason for Appointment: Patient ID: Ailyn Baron is a 29 y.o. female who presents for Care (Pt present today for 6 week post visit. Pt delivered vaginally on 03/24/2025.) Patient presents today for Post Follow Up appointment. MEDICATIONS Current Outpatient Medications Medication Instructions MV-Min-Fe Fum-FA-DHA ( 1 PO) Take by [...] to other specified organisms 02/22/2024 Second trimester 10/11/2024 Past Medical History: Diagnosis Date BMI [...] nursing note reviewed. Exam conducted with a manager software development present. Vitals: Estimated body mass index is 22.15 kg/m as calculated from the following: Height as of 24: 5' 9 . Weight as of this encounter: 150 lb. BP: 118/68 No LMP recorded. ASSESSMENT & PLAN ICD-10-CM 1. 6 weeks follow-up Z39.2 POCT urinalysis dipstick manually resulted 2. Spontaneous vaginal delivery O80 Post Follow Up: Patient is doing well but has complaints of none. Patient presents today for 6 week visit. Patient is s/p Vaginal delivery. Patient states depression but denies suicidal and homicidal ideations. All options were discussed with the patient regarding control and patient desires none at this time. Follow Up: Patient is to return for annual unless needed otherwise. Documented by Lorri Fernandez LPN on behalf of: Delvis Meraz DO documented in this encounter [facility] 03-22-2025 History of Presen t illness Narrative Reason [...] nursing note reviewed. Exam conducted with a manager software development present. Vitals: Estimated body mass index is 26.99 kg/m as calculated from the following: Height as of 10/11/24: 5' 9 . Weight as of this encounter: 182 lb 12.8 oz. BP: 120/74 No LMP recorded. Patient is . ASSESSMENT & PLAN ICD-10-CM 1. 37 weeks gestation of Z3A.37 POCT urinalysis dipstick manually resulted 2. Third trimester Z34.93 POCT urinalysis dipstick manually resulted Return OB: Patient presents today for a routine obstetrics appointment. Patient is currently 37w6d . Patient states she is doing well but has complaints of being tired due to current . Patient has verbalizes frequent movement. labor precautions was discussed/given and patient was instructed to perform kick counts three times a day. Pt has complaints of BLE. Orders Placed This Encounter Procedures POCT urinalysis dipstick manually resulted Follow Up: Patient is to return to office in 1 week for routine OB appointment. Documented by Lorri Fernandez LPN on behalf of: Delvis Meraz DO documented in this encounter [facility] 03-15-2025 History of Presen t illness Narrative Reason [...] nursing note reviewed. Exam conducted with a manager software development present. Vitals: Estimated body mass index is 26.32 kg/m as calculated from the following: Height as of 10/11/24: 5' 9 . Weight as of this encounter: 178 lb 4 oz. BP: 110/70 No LMP recorded. Patient is . ASSESSMENT & PLAN ICD-10-CM 1. Third trimester Z34.93 POCT urinalysis dipstick manually resulted 2. 36 weeks gestation of Z3A.36 Return OB: Patient presents today for a routine obstetrics appointment. Patient is currently 36w6d . Patient states she is doing well but has complaints of being tired due to current . Patient has verbalizes frequent movement. labor precautions was discussed/given and patient was instructed to perform kick counts three times a day. Orders Placed This Encounter Procedures POCT urinalysis dipstick manually resulted Follow Up: Patient is to return to office in 1 week for routine OB appointment. Documented by Lorri Fernandez LPN on behalf of: Delvis Meraz DO documented in this encounter [facility] 03-08-2025 History of Presen t illness Narrative [...] Relation Name Age of Onset Hypertension Father Ceilo Heart disease Father Celio Cancer Maternal Grandmother [...] nursing note reviewed. Exam conducted with a manager software development present. Vitals: Estimated body mass index is [...] Lorri Fernandez LPN on behalf of: Delvis Kt, DO documented in this encounter [facility] 02-21-2025 History of Presen t illness Narrative [...] nursing note reviewed. Exam conducted with a manager software development present. Vitals: Estimated body mass index is [...] by Lorri Fernandez LPN on behalf of: Amanda Gonzalez PAC documented in this encounter [facility] 02-09-2025 History of Presen t illness [...] nursing note reviewed. Exam conducted with a manager software development present. Vitals: Estimated body mass index is [...] of: CARLYLE Flaherty documented in this encounter [facility] 01-25-2025 History of Presen t illness [...] nursing note reviewed. Exam conducted with a manager software development present. Vitals: Estimated body mass index is [...] Meraz DO documented in this encounter [facility] 01-11-2025 History of Presen t illness [...] nursing note reviewed. Exam conducted with a manager software development present. Vitals: Estimated body mass index is [...] Meraz DO documented in this encounter [facility] 12-28-2024 History of Presen t illness [...] nursing note reviewed. Exam conducted with a manager software development present. Vitals: Estimated body mass index is [...] Meraz DO documented in this encounter [facility] 11-28-2024 History of Presen t illness [...] nursing note reviewed. Exam conducted with a manager software development present. Vitals: Estimated body mass index is [...] Meraz DO documented in this encounter [facility] 10-24-2024 History of Presen t illness [...] nursing note reviewed. Exam conducted with a manager software development present. Vitals: Estimated body mass index is [...] Meraz DO documented in this encounter [facility] 10-11-2024 History of Presen t illness [...] MG capsule documented in this encounter [facility] 09-26-2024 History of Presen t illness [...] nursing note reviewed. Exam conducted with a manager software development present. Vitals: Estimated body mass index is [...] or undercooked meat, and stay away from [facility]. Patient has been consulted regarding any [...] Gonzalez PA-C documented in this encounter [facility] 08-26-2024 History of Presen t illness [...] or undercooked meat, and stay away from [facility]. Patient has also been advised to [...] Jasmyne Segura documented in this encounter [facility] 05-23-2023 Progress note Note Date/Time May 22, 2023 9:03[facility] at [address] [address] Hem/Onc Follow Up Note - OP Signed Patient: Ailyn Baron MR#: [id number] : 1995 Acct:[id number] Age/Sex: 27 / F Type: REG RCR [...] of restaging CT CAP by phone with [employer]ACH[employer] APPRENTICE in October--no evidence of recurrence. Saw dermatology [...] dyspepsia. We will coordinate parenteral iron at [facility] per her request. Normal thyroid, cortisol,and CMP [...] trauma. She was seen by dermatology at [facility] in [place] and underwent a biopsy of the right [...] 3. Venofer for iron deficiency anemia at [facility] 03/2022 ROS Details: All systems reviewed & [...] Mild Nivolumab infusion reaction in February 2022. [facility] - History Attestation statement: The [...] DAILY PRN Anxiety 06/18/21 [History Confirmed 05/22/23] HMQ-dvdc-EK-omega 3-fat com #1 27 mg-1 mg-300 mg [...] Creatinine Clear 154.92, Sodium 136, Potassium 4.2, Arepulwv670, Carbon Dioxide 26.1, Anion Gap 10.1, BUN [...] % (Auto) 79.8, Lymph % (Auto) 12.8, Mower % (Auto) 6.4, Eos % (Auto) 0.6, Baso % (Auto) 0.4, Nucleat RBC Rel Count 0.2, Neut # (Auto) 8.2 H, Lymph # (Auto) 1.3, Mower # (Auto) 0.7, Eos # (Auto) 0.1, [...] 4% with ferritin 7. Coordinated Venofer infusionsat [facility] (300mg IV x 3 doses) 03/2022 with followup CBC, serum iron profile, and ferritin in one month. Consider GI evaluation for iron deficiency. 07/09/2022: She is doing well on oral iron recommended by her seasoner. She does not plan to have children anytime soon, but discussed with her seasoner the best iron supplementation to be on [...] for coordination of care (as documented) and [id number] counseling of patient and/or family. Dictated By: Amanda Rosario MD DD/ [id number] Signed By: <Electronically signed by MD Amanda Rosario> 05/23/23 0256 [facility] Work Phone: 1(595) 717-623903-01-2023 Progress note Author Amanda Rosario [facility] January 21, 2023 8:51pm Note Date/Time January 21, 2023 3:01 pm [facility] [place] [address] Hem/Onc Follow Up Note - OP Signed Patient: Ailyn Baron MR#: [id number] : 1995 Acct:[id number] Age/Sex: 27 / F Type: REG RCR Copies to: MD Mike Ewing MD~ Subjective Date/Time of Service: Date of Service: 01/21/2023 Time of Service: 15:00 Chief Complaint: Patient is here today for a 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 No new concerns HPI: 01/21/2023: Ailyn had review of restaging CT CAP by phone with [employer] APPRENTICE in October--no evidence of recurrence. Saw dermatology [...] dyspepsia. We will coordinate parenteral iron at [facility] per her request. Normal thyroid, cortisol,and CMP [...] trauma. She was seen by dermatology at [facility] in [place] and underwent a biopsy of the right [...] 3. Venofer for iron deficiency anemia at [facility] 03/2022 ROS Details: All systems reviewed & [...] Mild Nivolumab infusion reaction in February 2022. [facility] - History Attestation statement: The [...] DAILY PRN Anxiety 06/18/21 [History Confirmed 01/21/23] PUM-zatn-IQ-omega 3-fat com #1 27 mg-1 mg-300 mg [...] 4% with ferritin 7. Coordinated Venofer infusionsat [facility] (300mg IV x 3 doses) 03/2022 with followup CBC, serum iron profile, and ferritin in one month. Consider GI evaluation for iron deficiency. 07/09/2022: She is doing well on oral iron recommended by her seasoner. She does not plan to have children anytime soon, but discussed with her seasoner the best iron supplementation to be on [...] for coordination of care (as documented) and [id number]-[id number] counseling of patient and/or family. Dictated By: Amanda Rosario MD DD/ 1500 Signed By: <Electronically signed by MD Amanda Rosario> 01/21/232050 [facility] Work Phone: 1(233) 441-437708-17-2022 Progress note Author Ale Malone [facility] July 09, 2022 1:35pm Note Date/Time July 08, 2022 1: 31pm [facility] [place] [address] Hem/Onc Follow Up Note - OP Signed with Addenda Patient: Ailyn Baron MR#: [id number] : 1995 Acct:[id number] Age/Sex: 27 / F Type: REG RCR Copies to: MD Sarah Gillespie MD Marc Naderer, MD~ ADDENDUM1 After discussion with Dr. Rosario, we will have the patient follow-up in 3 months instead of 6, and will plan repeat CT c/a/p prior to that visit. Addendum Dictated By: KIKI aMlone Addendum Signed By: 07/09/221334 Addendum Cosigned By: [...] dyspepsia. We will coordinate parenteral iron at [facility] per her request. Normal thyroid, cortisol,and CMP [...] trauma. She was seen by dermatology at [facility] in [place] and underwent a biopsy of the right [...] % (Auto) 61.2, Lymph % (Auto) 26.6, Mower % (Auto) 9.7, Eos % (Auto) 1.2, Baso % (Auto) 1.3, Neut # (Auto) 3.4, Lymph # (Auto) 1.5, Mower # (Auto) 0.5, Eos# (Auto) 0.1, Baso [...] ferritin 7. Will have Venofer infusions at [facility] (300mg IV x 3 doses) with followup CBC, serum iron profile,and ferritin in one month. Consider GI evaluation for iron deficiency. 07/09/2022: She is doing well on oral iron recommended by her seasoner. She does not plan to have children anytime soon, but discussed with her seasoner the best iron supplementation to be on [...] for coordination of care (as documented) and [id number] counseling of patient and/or family. Dictated By: Ale Malone APRN DD/ [id number] Signed By: <Electronically signed by KIKI Malone> 07/09/22 0958 [facility] Work Phone: 1(743) 983-429505-12-2022 Progress note Author Amanda Rosario [facility] April 03, 2022 8:56pm Note Date/Time April 02, 2022 8:30p m [facility] [place] [address] Hem/Onc Follow Up Note - OP Signed Patient: Ailyn Baron MR#: [id number] : 1995 Acct:[id number] Age/Sex: 26 / F Type: REG RCR [...] dyspepsia. We will coordinate parenteral iron at [facility] per her request. Normal thyroid, cortisol,and CMP [...] trauma. She was seen by dermatology at [facility] in [place] and underwent a biopsy of the right [...] Mild Nivolumab infusion reaction in February 2022. [facility] - History Attestation statement: The [...] Creatinine Clear 115.14, Sodium 136, Potassium 4.1, Ynwoppes979, Carbon Dioxide 24.5, BUN 9, Creatinine 0.76, [...] % (Auto) 46.7, Lymph % (Auto) 30.6, Mower % (Auto) 20.8, Eos % (Auto) 0.9, Baso % (Auto) 1.0, Neut # (Auto) 1.6 L, Lymph # (Auto) 1.1, Mower # (Auto) 0.7, Eos # (Auto) 0.0, [...] ferritin 7. Will have Venofer infusions at [facility] (300mg IV x 3 doses) with followup [...] for coordination of care (as documented) and thew-wn-auzk counseling of patient and/or family. Dictated By: Amanda Rosario MD DD/ 28 Signed By: <Electronically signed by MD Amanda Rosario> 04/03/222055 [facility] Work Phone: 1(162) 509-306702-23-2022 Progress note Author Amanda Rosario [facility] January 15, 2022 9:15pm Note Date/Time January 15, 2022 11:55am [facility] at [address] [address] Hem/Onc Follow Up Note - OP Signed Patient: Ailyn Pittman MR#: [id number] : 1995 Acct:[id number] Age/Sex: 26 / F Type: REG RCR [...] trauma. She was seen by dermatology at [facility] in [place] and underwent a biopsy of the right [...] Benign-appearing lymph nodes. Impression dictated by: Paresh Gilmoer Jr. DDavidODavid12/31/2021 1:08 PM Assessment and Plan - TNM [...] for coordination of care (as documented) and vixl-lp-yius counseling of patient and/or family. Dictated By: Amanda Rosario MD DD/ 1155 Signed By: <Electronically signed by MD Amanda Rosario> 01/15/22 2115 [facility] Work Phone: 1(467) 869-967811-11-2021 Progress note Author Denia Alvares [facility] October 03, 2021 10:47am Note Date/Time October 03, 2021 10:34am [facility] [place] [address] Hem/Onc Follow Up Note - OP Signed Patient: Ailyn Pittman MR#: [id number] : 1995 Acct:[id number] Age/Sex: 26 / F Type: REG RCR [...] trauma. She was seen by dermatology at [facility] in [place] and underwent a biopsy of the right [...] environmental allergies and food allergies. PMFSH - Medical History Medical History: Medical [...] Creatinine Clear 112.19, Sodium 139, Potassium 4.1, Drmdqbks360, Carbon Dioxide 26.4, BUN 9, Creatinine 0.78, [...] % (Auto) 66.7, Lymph % (Auto) 23.1, Mower % (Auto) 8.3, Eos % (Auto) 1.0, Baso % (Auto) 0.9, Neut # (Auto) 5.0, Lymph # (Auto) 1.7, Mower # (Auto) 0.6, Eos# (Auto) 0.1, Baso [...] for coordination of care (as documented) and hpey-aw-hbnc counseling of patient and/or family. Dictated By: Denia Alvares APRN DD/ 1025 Signed By: <Electronically signed by KIKI Loza Elijah Breeadamastephanie> 10/03/21 1044 [facility] Work Phone: 1([phone]) 486-117108-27-2021 Progress note Author Amanda Rosario [facility] July 19, 2021 12:54pm Note Date/Time July 18, 2021 2: 10pm [facility] [place] [address] Hem/Onc Follow Up Note - OP Signed Patient: Ailyn Pittman MR#: [id number] : 1995 Acct:[id number] Age/Sex: 26 / F Type: REG RCR [...] trauma. 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 Dictated By: Amanda Rosario MD DD/ 1409 Signed By: <Electronically signed by MD Amanda Rosario> 07/19/21 2600 [facility] Work Phone: 1([phone]) 695-113308-03-2021 Consult note Author Amanda Rosario [facility] June 24, 2021 10:09pm Note Date/Time June 24, 2021 2:1 8pm [facility] [place] [address] Hem/Onc Consult Note - OP Signed Patient: Ailyn Pittman MR#: [id number] : 1995 Acct:[id number] Age/Sex: 26 / F Type: REG RCR [...] trauma. 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 Note Recipients: Price Girard MD - [phone] [] Bettina Madera PAC - [phone] [] Attestation: Note Completion: Attending AttestationI performed the procedure without a resident Electronic Signatures: Sarah Leigh) (Signed 17-May-2021 18:18) Authored: Post-Operative Note, Chart Review, Note Completion Last Updated: 17-May-2021 18:18 by Sarah Leigh[place] [place] History of Present illness Qhozoohkr29-fgov-fky woman who underwent wide excision right posterior calf melanoma with [place] flap reconstruction as well as right inguinal and iliac sentinel lymph node biopsy on 05/17/2021. Pathology report has not yet resulted. She is recovering well.[facility] Main Work Phone: 1(852) 429-639906-25-2021 History of Present illness Narrative 25-year-old woman who underwent wide excision right posterior calf melanoma with [place] flap reconstruction as well as right inguinal and iliac sentinel lymph node biopsy on 05/17/2021. Pathology report has not yet resulted. She is recovering well.[facility] Work Phone: [phone]) 443-701506-25-2021 NoteHistory & Physical Reviewed: /Lactating: Are You [...] Completion Last Updated: 17-May-2021 09:36 by Sarah Leigh) References: 1. Data Referenced From Patient Profile - Preop v2 17-May-2021 09:27[facility]06-22-2021 NoteAccession #: [id number] Pathologist: ANUJA OLIVO MD Date of Procedure: 05/14/2021 Date Received: 05/14/2021 Submitting Physician: SARAH LEIGH MD Location: [facility] Copy To/Referring/Attending: ROLY EDGE DO FINAL DIAGNOSIS 2 SLIDES, [facility] #[id number] (BX: 04/23/2021) SKIN, RT POST LEG, SHAVE [...] MD. CANCER SUMMARY REPORT A. 2 SL[facility] #[id number] (BX: 04/23/2021): SPECIMEN Procedure: Biopsy, shave Specimen [...] report. Primary Tumor (pT): pT3b ADDITIONAL TESTING SPECIAL EFFECTS ARTIST BLOCKS: Tumor Block: CSPL slide [id number] Electronically Signed Out By ANUJA OLIVO MD/BEBETO Microscopic Description: Microscopic examination performed. Clinical History: SHAVE/ BCC VS MM VS PG 1.9 X 1.9CM Specimens Submitted As: A: 2 SLIDES, [facility] #[id number] (BX: 04/23/2021) Gross Description: Received for consultation from [facility] are two slides labeled [id number] (BX: 04/23/2021) along with the corresponding pathology report. Slide/Block Description 2 SLIDES, [id number]. Keep Slides: N Slides Returned: N [facility]:Performed By: #### D #### DermatopathologyEvaluation noteN/ADept. 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 Evaluation note* Diagnosis Onset Date Resolution Status Iron deficiency anemia acute Chiari malformation type I c hronic Edema of right lower extremity chronic Encounter for antineoplastic immunotherapy chronic Malignant melanoma of right lower leg chronic [facility] Work Phone: Evaluation note* Diagnosis Onset Date Resolution Status Chiari malformation type I c hronic Edema of right lower extremity chronic Encounter for antineoplastic immunotherapy chronic Iron deficiency anemia chron ic Malignant melanoma of right lower leg chronic [facility] Work Phone: Evaluation noteNo assessment information available [facility] Work Phone: Evaluation note* Diagnosis [...] including hip (CMS/HCC) Third trimester state, incidental 36 weeks gestation of [facility] Diagnosis Acute non-recurrent pansinusitis- Primary Second trimester state, incidental Malignant melanoma of right lower limb, including hip (CMS/HCC) 37 weeks gestation of Third trimester state, incidental [facility] Diagnosis Acute non-recurrent pansinusitis- Primary Second trimester state, incidental Malignant melanoma of right lower limb, including hip (CMS/HCC) 6 weeks follow-up Spontaneous vaginal delivery Normal delivery [facility] Diagnosis Acute non-recurrent pansinusitis- Primary Second trimester (HHS-HCC) state, incidental Malignant melanoma of right lower limb, including hip (HCC) Well woman exam with routine gynecological exam Routine gynecological examination control counseling [facility] instructionsAmbulatory Orders* RISE Order Time Frame: 1 Day, Location: Determined By Patient * Survivourship Follow Up Time Frame: 3 Months, Location: Determined By Patient [facility] Work Phone: Progress note Author Ale Malone [facility] July 09, 2022 1:35pm Note Date/Time July 08, 2022 1: 31pm [facility] at [address] [address] Hem/Onc Follow Up Note - OP Signed with Cici Patient: Ailyn Baron MR#: [id number] : 1995 Acct:[id number] Age/Sex: 27 / F Type: REG RCR [...] dyspepsia. We will coordinate parenteral iron at [facility] per her request. Normal thyroid, cortisol,and CMP [...] trauma. She was seen by dermatology at [facility] in [place] and underwent a biopsy of the right [...] % (Auto) 61.2, Lymph % (Auto) 26.6, Mower % (Auto) 9.7, Eos % (Auto) 1.2, Baso % (Auto) 1.3, Neut # (Auto) 3.4, Lymph # (Auto) 1.5, Mower # (Auto) 0.5, Eos# (Auto) 0.1, Baso [...] ferritin 7. Will have Venofer infusions at [facility] (300mg IV x 3 doses) with followup CBC, serum iron profile,and ferritin in one month. Consider GI evaluation for iron deficiency. 07/09/2022: She is doing well on oral iron recommended by her seasoner. She does not plan to have children anytime soon, but discussed with her seasoner the best iron supplementation to be on [...] for coordination of care (as documented) and yrii-fl-giqy counseling of patient and/or family. Dictated By: Ale Malone APRN DD/ 1331 Signed By: <Electronically signed by KIKI Malone> 07/09/22 0958 [facility] Work Phone: Progress note Author Amanda Rosario [facility] January 21, 2023 8:51pm Note Date/Time January 21, 2023 3:01 pm [facility] at [place] [id number] Hem/Onc Follow Up Note - OP Signed Patient: Ailyn Baron MR#: [id number] : 1995 Acct:[id number] Age/Sex: 27 / F Type: REG RCR Copies to: MD Mike Ewing MD~ Subjective Date/Time of Service: Date of Service: 01/21/2023 Time of Service: 15:00 Chief Complaint: Patient is here today for a 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 No new concerns HPI: 01/21/2023: Ailyn had review of restaging CT CAP by phone with [employer] APPRENTICE in October--no evidence of recurrence. Saw dermatology [...] dyspepsia. We will coordinate parenteral iron at [facility] per her request. Normal thyroid, cortisol,and CMP [...] trauma. She was seen by dermatology at [facility] in [place] and underwent a biopsy of the right [...] 3. Venofer for iron deficiency anemia at [facility] 03/2022 ROS Details: All systems reviewed & [...] Mild Nivolumab infusion reaction in February 2022. [facility] - History Attestation statement: The [...] DAILY PRN Anxiety 06/18/21 [History Confirmed 01/21/23] KFA-sueq-LL-omega 3-fat com #1 27 mg-1 mg-300 mg [...] 4% with ferritin 7. Coordinated [facility] infusionsat [facility] (300mg IV x 3 doses) 03/2022 with followup CBC, serum iron profile, and ferritin in one month. Consider GI evaluation for iron deficiency. 07/09/2022: She is doing well on oral iron recommended by her seasoner. She does not plan to have children anytime soon, but discussed with her seasoner the best iron supplementation to be on [...] for coordination of care (as documented) and lfgy-dm-zqsj counseling of patient and/or family. Dictated By: Amanda Rosario MD DD/ 1500 Signed By: <Electronically signed by MD Amanda Rosario> 01/21/232050 [facility] Work Phone: Reason for referral (narrative)* Name [...] section and content) DATE CREATED AUTHOR 05/31/2021 [facility] DATE CREATED AUTHOR AUTHOR'S ORGANIZ ATION [place]2021 [facility] DATE CREATED AUTHOR AUTHOR'S ORGANIZ ATION 08/01/2021 [facility] DATE CREATED AUTHOR AUTHOR'S ORGANIZ ATION 01/18/2022 [facility] DATE CREATED AUTHOR AUTHOR'S ORGANIZ ATION 04/08/2023 [facility] DATE CREATED AUTHOR AUTHOR'S ORGANIZ ATION 09/25/2024 [facility] DATE CREATED AUTHOR AUTHOR'S ORGANIZ ATION 05/06/[address] [facility] EPIC Care Teams (unrecognized sec tion and content) Team Status: Active Member Role Status Dates Mike Wagner MD Primary Care Provider Active Team Status: Active Member Role Status Dates Amanda Rosario MD Attending Provider Active Sarah Leigh MD Referring Provider Active Mkie Wagner MD Primary Care Provider Active Blood Donor Unit Assistant Relationship Specialty Start Date End Date Mike Wagner MD [address] [place] [address] PCP - General Family Medicine 02/09/24 Shaikh Melendrez MD [address] [place] [address] PCP - [place] [employer] 08/23/23 Blood Donor Unit Assistant Relationship Specialty Start Date End Date Mike Wagner MD [address] [place] [address] PCP - General Family Medicine 02/09/24 Shaikh Melendrez MD [address] [place] [address] PCP - [place] [employer] 08/23/23 Blood Donor Unit Assistant Relationship Specialty Start Date End Date Mike Wagner MD [address] [place] [address] PCP - General Family Medicine 02/09/24 Shaikh Melendrez MD [address] [place] [address] PCP - [place] [employer] 08/23/23 Blood Donor Unit Assistant Relationship Specialty Start Date End Date Mike Wagner MD [address] [place] [address] PCP - General Family Medicine 02/09/24 Melissa Zhou NP [address] [place] [address] PCP - [place] [employer] 08/23/24 Blood Donor Unit Assistant Relationship Specialty Start Date End Date Mike Wagner MD [address] [place] [address] PCP - General Family Medicine 02/09/24 Melissa Zhou NP [address] [place] [address] PCP - [place] [employer] 08/23/24 Blood Donor Unit Assistant Relationship Specialty Start Date End Date Mike Wagner MD [address] [place] [address] PCP - General Family Medicine 02/09/24 Melissa Zhou NP [address] [place] [address] PCP - [place] [employer] 08/23/24 Blood Donor Unit Assistant Relationship Specialty Start Date End Date Mike Wagner MD [address] [place] [address] PCP - General Family Medicine 02/09/24 Melissa Zhou NP [address] [place] [address] PCP - [place] [employer] 08/23/24 Blood Donor Unit Assistant Relationship Specialty Start Date End Date Mike Wagner MD [address] [place] [address] PCP - General Family Medicine 02/09/24 Melissa Zhou NP [address] [place] [address] PCP - [place] [employer] 08/23/24 Blood Donor Unit Assistant Relationship Specialty Start Date End Date Mike Wagner MD [address] [place] [address] PCP - General Family Medicine 02/09/24 Shaikh Melendrez MD [address] [place] [address] PCP - [place] [employer] 08/23/23 Blood Donor Unit Assistant Relationship Specialty Start Date End Date Mike Wagner MD [address] [place] [address] PCP - General Family Medicine 02/09/24 Melissa Zhou NP [address] [place] [address] PCP - [place] [employer] 08/23/24 Blood Donor Unit Assistant Relationship Specialty Start Date End Date Mike Wagner MD [address] [place] [address] PCP - General Family Medicine 02/09/24 Blood Donor Unit Assistant Relationship Specialty Start Date End Date Mike Wagner MD [address] [place] [address] PCP - General Family Medicine 02/09/24 Blood Donor Unit Assistant Relationship Specialty Start Date End Date Mike Wagner MD [address] [place] [address] PCP - General Family Medicine 02/09/24 Blood Donor Unit Assistant Relationship Specialty Start Date End Date Mike Wagner MD [address] [place] [address] PCP - General Family Medicine 02/09/24 Blood Donor Unit Assistant Relationship Specialty Start Date End Date Mike Wagner MD [address] [place] [address] PCP - General Family Medicine 02/09/24 Blood Donor Unit Assistant Relationship Specialty Start Date End Date Mike Wagner MD [address] [place] [address] PCP - General Family Medicine 02/09/24 Blood Donor Unit Assistant Relationship Specialty Start Date End Date Mike Wagner MD [address] [place] [address] PCP - General Family Medicine 02/09/24 Blood Donor Unit Assistant Relationship Specialty Start Date End Date Mike Wagner MD [address] [place] [address] PCP - General Family Medicine 02/09/24 Blood Donor Unit Assistant Relationship Specialty Start Date End Date Mike Wagner MD [address] [place] [address] PCP - General Family Medicine 02/09/24 Blood Donor Unit Assistant Relationship Specialty Start Date End Date Mike Wagner MD [address] [place] [address] PCP - General Family Medicine 02/09/24 Goals [...] STI Screening Reason Comments Follow-up Cold/ congestion Reason Comments Care Pt present today for 6 week post visit. Pt delivered vaginally on 03/24/2025. Reason Comments Well Women Visit FOR RECORDS PERTAINING TO PATIENTS WHO [...] BE BASED ON THE PRIMARY CLINICAL RECORDS. [email or web address] provides no warranty or guarantee of the accuracy or completeness of information in this document.
[2025-07-21 17:09] LABS: Age Gdln ACOG Testing Note (.); IGP, rfx Aptima HPV ASCU Note (.)
== END 2025-07-18 20:40 | disposition home or self-care (01) ==
LOC: LAB 20:39
PROVIDERS: PCP Family Medicine; Visit Provider Obstetrics & Gynecology
DX: Z01.419 Encounter for gynecological examination (general) (routine) without abnormal findings (principal)
CPT/HCPCS: 88175